=== PATIENT | female | born 1940 | race Native Hawaiian/Other Pacific Islander ===

== ENCOUNTER 2016-08-08 13:05 | Inpatient (IN) | payer BC ==
[2016-08-08 13:05] VITALS: BMI 23.1
--- NOTE | 2016-08-08 14:02 | C.PDOC ---
Time Seen by Provider: 08/08/16 13:56 Chief Complaint (Nursing): Altered Mental Status Past Medical History Vital Signs: Last Vital Signs Temp 90.7 F L 08/08/16 13:44 Pulse 50 L 08/08/16 13:32 Resp 16 08/08/16 13:32 BP 154/62 H 08/08/16 13:32 Pulse Ox 95 08/08/16 13:32 - Medical History PMH: CHF, HTN, Hyperlipidemia, Hypothyroidism, Peripheral Edema, End Stage Renal Disease, Chronic Kidney Disease Denies: Crohn's Disease, Diverticulitis Surgical History: CABG (2001), Coronary Stent (x3 in 2006) - [facility] Procedures BYPASS LEFT BRACHIAL ARTERY TO UPPER ARM VEIN, OPEN APPROACH (11/27/15) DILATION OF L AXILLA VEIN WITH INTRALUM DEV, PERC APPROACH (11/27/15) DILATION OF RIGHT URETER WITH INTRALUMINAL DEVICE, ENDO (11/27/15) DRAINAGE OF RIGHT PLEURAL CAVITY, PERCUTANEOUS APPROACH (02/20/16) FLUOROSCOPY OF DIALYSIS SHUNT/FISTULA USING OTHER CONTRAST (02/20/16) FLUOROSCOPY OF KIDNEY, URETER & BLADDER USING OTH CONTRAST (11/27/15) INSERT INFUSION DEV IN R INT JUGULAR VEIN, PERC (11/27/15) PERFORMANCE OF URINARY FILTRATION, MULTIPLE (02/20/16) REMOVAL OF INFUSION DEVICE FROM UPPER VEIN, OPEN APPROACH (11/27/15) REMOVAL OF INTRALUMINAL DEVICE FROM URETER, ENDO (11/27/15) TRANSFUSE NONAUT RED BLOOD CELLS IN PERIPH VEIN, PERC (11/27/15) Family History: States: Unknown Family Hx - Social History Hx Tobacco Use: No Hx Alcohol Use: No Hx Substance Use: No - Immunization History Hx Tetanus Toxoid Vaccination: No Hx Influenza Vaccination: No (NOT SURE) Hx Pneumococcal Vaccination: No (NOT SURE) ED Course And Treatment O2 Sat by Pulse Oximetry: 95
--- NOTE | 2016-08-08 14:05 | C.PDOC ---
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 Patient's family states she was found laying still in bed at 12:00 poorly responsive with low glucose at 66. Patient is status post D50 prior to arrival with improvement. Family states patient gets periodic low sugar episodes. Patient had 5 units of insulin last night but did not eat this morning. Patient also complains of recurring general swelling, state she needs hemodialysis, and report last hemodialysis was 08/05. Patient's family state patient does not monitor water intake and was scheduled for outpatient hemodialysis this afternoon. Patient's family also report a new onset of bilateral foot and leg redness for 1 week. Patient's PMD is Dr. Norris. Denies any recent fever, nausea, vomiting, or diarrhea. 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 PT FOUND STILL LYING IN BED @ 12 PM, POORLY RESPONSIVE. +LOW GLU @ 66. S/P D50 ALUMINUM POURER W IMPROVE. FAMILY STATES PT GETS PERIODIC LOW SUGAR EPISODES. NO RECENT FEVER, NVD. INSULIN 5 UNITS LAST NIGHT BUT DID NOT EAT THIS MORNING. ALSO CO RECUR GEN SWELLING, NEED FOR HD. LAST HD 08/05, FAMILY STATES PT DOES NOT MONITOR WATER INTAKE. WAS PENDING OUTPT HD THIS AFTERNOON. ALSO NEW ONSET B/L FOOT AND LEG REDNESS X 1 WEEK. EXAM MILD DIST MILD TOX LUNGS NARD POOR EFFORT NO TACHYPNEA NO AUD WHEEZE, RHONCHI NO EDEMA SKIN B/L LEG ERYTHEMA NONBLANCHING ; WARM DRY NEURO AO3, NO FOCAL DEF PMD DR NORRIS Time Seen by Provider: 08/08/16 13:56 Chief Complaint (Nursing): Altered Mental Status History Per: Family History/Exam Limitations: clinical condition Onset/Duration Of Symptoms: Hrs (Since 12:00) Current Symptoms Are (Timing): Still Present Current Diabetic Medications: Insulin Associated Infectious Symptoms: denies: Nausea, Vomiting, Diarrhea, Other (Fever ) Past Medical History Reviewed: Historical Data, Nursing Documentation, Vital Signs Vital Signs: Last Vital Signs Temp 91.2 F L 08/08/16 15:20 Pulse 44 L 08/08/16 15:20 Resp 14 08/08/16 15:20 BP 127/52 L 08/08/16 15:20 Pulse Ox 100 08/08/16 15:20 - Medical History PMH: CHF, HTN, Hyperlipidemia, Hypothyroidism, Peripheral Edema, End Stage Renal Disease, Chronic Kidney Disease Surgical History: CABG (2001), Coronary Stent (x3 in 2006) - [facility] Procedures BYPASS LEFT BRACHIAL ARTERY TO UPPER ARM VEIN, OPEN APPROACH (11/27/15) DILATION OF L AXILLA VEIN WITH INTRALUM DEV, PERC APPROACH (11/27/15) DILATION OF RIGHT URETER WITH INTRALUMINAL DEVICE, ENDO (11/27/15) DRAINAGE OF RIGHT PLEURAL CAVITY, PERCUTANEOUS APPROACH (02/20/16) FLUOROSCOPY OF DIALYSIS SHUNT/FISTULA USING OTHER CONTRAST (02/20/16) FLUOROSCOPY OF KIDNEY, URETER & BLADDER USING OTH CONTRAST (11/27/15) INSERT INFUSION DEV IN R INT JUGULAR VEIN, PERC (11/27/15) PERFORMANCE OF URINARY FILTRATION, MULTIPLE (02/20/16) REMOVAL OF INFUSION DEVICE FROM UPPER VEIN, OPEN APPROACH (11/27/15) REMOVAL OF INTRALUMINAL DEVICE FROM URETER, ENDO (11/27/15) TRANSFUSE NONAUT RED BLOOD CELLS IN PERIPH VEIN, PERC (11/27/15) Family History: States: Unknown Family Hx - Social History Hx Tobacco Use: No Hx Alcohol Use: No Hx Substance Use: No - Immunization History Hx Tetanus Toxoid Vaccination: No Hx Influenza Vaccination: No (NOT SURE) Hx Pneumococcal Vaccination: No (NOT SURE) Review Of Systems Except As Marked, All Systems Reviewed And Found Negative. Constitutional: Negative for: Fever Gastrointestinal: Negative for: Nausea, Vomiting, Diarrhea Musculoskeletal: Positive for: Other (Bilateral foot/leg redness. General swelling.) Physical Exam - Physical Exam Appears: Toxic (Mildly), Other (Mild distress) Skin: Warm, Dry, Other (Bilateral leg erythema. Non-blanching) Head: Atraumatic, Normacephalic Oral Mucosa: Moist Chest: Symmetrical Cardiovascular: Rhythm Regular, No Murmur Respiratory: No Rales, No Rhonchi, No Wheezing, Other (No acute respiratory distress. Poor effort. No tachypnea) Gastrointestinal/Abdominal: Soft, No Tenderness Extremity: No Pedal Edema Neurological/Psych: Oriented x3, Other (No focal deficit) ED Course And Treatment - Laboratory Results Result Diagrams: 08/08/16 14:27 O2 Sat by Pulse Oximetry: 95 (Room air) Pulse Ox Interpretation: Normal Progress Note: EKG, blood work, chest x-ray, urine culture, and urinalysis ordered. One round of hemodialysis administered. Progress - Re-Evaluation Re-evaluation Note: 08/08/16 14:04 D/W DR MATHEW WILL CONSULT, ARRANGE FOR HD 08/08/16 14:05 D/W DR GARCIA WILL ADMIT 08/08/16 15:38 EXAM UNCH FROM PRIOR. VSS. - Data Reviewed Data Reviewed: Lab, Diagnostic imaging, EKG, Old records - Critical Care Citical Care: Excluding Proc Time Critical Care Time: 90 minutes - Continuity of Care Discussed patient case with:: Patient, Family-HIPPA compliant Disposition Counseled Patient/Family Regarding: Diagnosis, Need For Followup - Disposition Disposition: HOSPITALIZED Disposition Time: 15:38 Condition: STABLE - POA Present On Arrival: Poor Glycemic Control - Clinical Impression Clinical Impression: UTI (urinary tract infection), Hypoglycemia, Hypothermia, ESRD (end stage renal disease) on dialysis - Scribe Statement The provider has reviewed the documentation as recorded by the Scribe Darnell Kern All medical record entries made by the Scribe were at my direction and personally dictated by me. I have reviewed the chart and agree that the record accurately reflects my personal performance of the history, physical exam, medical decision making, and the department course for this patient. I have also personally directed, reviewed, and agree with the discharge instructions and disposition. Decision To Admit - Pt Status Changed To: Hospital Disposition Of: Inpatient - Admit Certification Admit to Inpatient:: After my assessment, the patient will require hospitalization for at least two midnights. This is because of the severity of symptoms shown, intensity of services needed, and/or the medical risk in this patient being treated as an outpatient. - InPatient: Physician Admission Certification: I certify that this patient requires 2 or more midnights of care for the following reason:: SEE NOTE - . Bed Request Type: Regular Admitting Physician: Joe Norris Patient Diagnosis: UTI (urinary tract infection), Hypoglycemia, Hypothermia, ESRD (end stage renal disease) on dialysis
[2016-08-08 14:35] LABS: VENOUS BLOOD GAS BASE EXCESS 0.4 mmol/L (0.0-2.0); VENOUS BLOOD GAS PCO2 55 mmHg (40-60); VENOUS BLOOD PH 7.31 (7.32-7.43)
[2016-08-08 14:46] LABS: EOS % 0.4 % (0.0-4.0); LYMPH # 0.5 K/uL (1.0-4.3); MEAN PLATELET VOLUME 10.2 fL (7.2-11.7); MONO # 0.6 K/uL (0.0-0.8)
[2016-08-08 14:54] LABS: BASO # 0.1 K/uL (0.0-0.2); BASO % 0.7 % (0.0-2.0); HEMATOCRIT 38.1 % (34.0-47.0); LYMPH % 6.1 % (20.0-40.0); MEAN CORPUSCULAR HEMOGLOBIN 34.3 pg (27.0-31.0); MEAN CORPUSCULAR HGB CONC 34.1 g/dL (33.0-37.0); MONO % 7.9 % (0.0-10.0); NRBC % 0.2 % (0.0-2.0); PLATELET COUNT 93 K/uL (130-400); RED CELL DISTRIBUTION WIDTH 18.2 % (11.5-14.5); WHITE BLOOD COUNT 7.8 K/uL (4.8-10.8)
[2016-08-08 14:56] LABS: MEAN CELL VOLUME 100.7 fL (81.0-99.0)
[2016-08-08 15:20] LABS: EOSINOPHIL 1 % (0-4); NEUTROPHIL 91 % (50-75); TOTAL CELLS COUNTED 100
[2016-08-08 15:34] LABS: RBC URINE 294 /hpf (0-3); URINE BACTERIA OCC (<OCC); URINE BILIRUBIN NEGATIVE (NEGATIVE); URINE BLOOD 3+ (NEGATIVE); URINE COLOR Amber (YELLOW); URINE GLUCOSE (UA) NORMAL (Normal); URINE KETONE NEGATIVE (NEGATIVE); URINE LEUKOCYTE ESTERASE 3+ Leu/uL (Negative); URINE PROTEIN 2+ mg/dL (NEGATIVE); URINE UROBILINOGEN NORMAL mg/dL (0.2-1.0); WBC CLUMPS FEW /hpf; WBC URINE 461 /hpf (0-5)
--- NOTE | 2016-08-08 15:34 | RAD ---
PROCEDURE: CHEST RADIOGRAPH, 1 VIEW HISTORY: Diabetic COMPARISON: 05/27/2016 FINDINGS: LUNGS: There is near complete opacification of the right hemithorax and mild shift of mediastinum to the left. PLEURA: No pneumothorax or pleural fluid seen. CARDIOVASCULAR: Status post CABG. Evaluation of cardiomediastinal silhouette is limited due to complete opacification of right hemithorax. OSSEOUS STRUCTURES: Diffuse bone demineralization and degenerative osteoarthrosis in the glenohumeral joints. VISUALIZED UPPER ABDOMEN: Normal. OTHER FINDINGS: None. IMPRESSION: Interval near complete opacification of the right hemithorax with mediastinal shift to the left is compatible with large pleural effusion. Underlying mass/ consolidation cannot be excluded. Follow-up is advised.
[2016-08-08] MEDS ORDERED: cefTRIAXone IV 1 gm in Dextros 50 ML IV STA (15:37)
[2016-08-08 16:04] LABS: CHLORIDE 93 mmol/L (98-107)
[2016-08-08 16:05] LABS: POTASSIUM 4.2 mmol/L (3.6-5.2); SODIUM 131 mmol/L (132-148)
[2016-08-08 16:07] LABS: ALB/GLOB RATIO 0.7 (1.0-2.1); ALKALINE PHOSPHATASE 181 U/L (38-126); AST/SGOT 61 U/L (14-36); BILIRUBIN,TOTAL 2.5 mg/dL (0.2-1.3); CARBON DIOXIDE 25 mmol/L (22-30); GFR AFRICAN-AMERICAN 23; TOTAL PROTEIN 8.5 g/dL (6.3-8.3)
[2016-08-08 16:08] LABS: ALT/SGPT 7 U/L (9-52); BLOOD UREA NITROGEN 41 mg/dL (7-17); CALCIUM 9.9 mg/dl (8.6-10.4); GLUCOSE,RANDOM 121 mg/dL (65-105)
--- NOTE | 2016-08-08 17:50 | CP.PCM.HP ---
History of Present Illness - History of Present Illness History of Present Illness: Chief complaint: Shortness of breath, altered mental status, hypothermia. History present illness: 75-year-old female with a history of CAD, stent in the past, hypertension, end- stage renal disease on dialysis, diabetes, hypothyroidism. A recurrent pleural effusion on the right lung. Recurrent thoracentesis. Patient for the last 2-3 days not feeling well. Yesterday patient was having somewhat weakness, tiredness, and also some shortness of breath, and patient was told to go to the emergency room. But patient was refusing. Today patient was sleeping the whole day, until 12 noon. Patient's family was time to get her out, patient was falling and she was not responding well. So family called the ambulance, and the patient was brought into the emergency room. In the emergency room patient was noted to be in severely hypothermic. Blood sugar was also very low. Patient was not responding. But she was able to breathe better. After the IV dextrose, and the temperature is slightly up, patient started responding. Meanwhile patient is having significant distress with movement. Bradycardia also noted. Given the high-risk I advised the patient to get admitted to the intensive care unit Past medical history: Patient has a history of CAD, stent in the past, hypertension, end-stage renal disease on dialysis, recurrent pleural effusion, hypothyroidism, diabetes. Recurrent right-sided pleural effusion. Recurrent thoracentesis. Surgical history: Coronary artery bypass grafting, stent in the past, hysterectomy, stent in the urethral area Patient also has a history of congestive heart failure Multiple hospitalization. Allergy sulfa mites Patient is a lifelong nonsmoker nonalcoholic Review of system: Patient is having minimal distress. Mild altered mental status improving, is responding to deep stimuli. Deep respiration noted, edema in the legs noted. Leg swelling present. Patient today morning had altered mental status, hypoglycemia noted On examination: Vital signs reviewed Patient is having bradycardia. Blood pressure is normal. Chest decreased air entry on the right lung. Regular heart sound. Abdomen soft, but tenderness in the left lower quadrant. Edema bilaterally noted, redness in the legs noted Temp Pulse Resp BP Pulse Ox 94.2 F L 48 L 14 120/44 L 100 08/08/16 17:44 08/08/16 17:44 08/08/16 17:44 08/08/16 17:44 08/08/16 17:44 08/08/16 14:27 08/08/16 15:27 Chest x-ray showing evidence of complete atelectasis of the right lung, associated pleural effusion Assessment/condition: 74-year-old female with history of CAD, stent, coronary it to bypass grafting, Hypertension, end-stage renal disease on dialysis diabetes hypothyroidism recurrent pleural effusion. Patient is now having severe hypothermia, hypoglycemia. Underlying sepsis cannot be ruled out. Hypoglycemia increased altered mental status most likely. Metabolic encephalopathy. We'll continue to monitor the glucose. Patient will get hemodialysis. Patient will need a thoracentesis on the right lung. Continue the oxygen and will follow the patient Present on Admission - Present on Admission Any Indicators Present on Admission: No History of DVT/PE: No History of Uncontrolled Diabetes: No Urinary Catheter: No Decubitus Ulcer Present: No Past Patient History - Infectious Disease Hx of Infectious Diseases: None - Past Medical History & Family History Past Medical History?: Yes - Past Social History Smoking Status: Never Smoked - CARDIAC Hx Congestive Heart Failure: Yes Hx Hypertension: Yes Hx Peripheral Edema: Yes - PULMONARY Hx Respiratory Disorders: Yes Other/Comment: hx of thoracentesis - NEUROLOGICAL Hx Neurological Disorder: Yes Other/Comment: [place] - HEENT Hx HEENT Problems: Yes Other/Comment: hard of hearing - RENAL Hx Chronic Kidney Disease: Yes - ENDOCRINE/METABOLIC Hx Hypothyroidism: Yes - MUSCULOSKELETAL/RHEUMATOLOGICAL Hx Falls: No - GASTROINTESTINAL Hx Crohn's Disease: No Hx Diverticulitis: No - GENITOURINARY/GYNECOLOGICAL Hx Genitourinary Disorders: Yes Hx Incontinence: Yes Hx Urinary Tract Infection: Yes (2006) Other/Comment: ureteral stent placed 06/2015 - PSYCHIATRIC Hx Substance Use: No - SURGICAL HISTORY Hx Coronary Artery Bypass Graft: Yes (2001) Hx Coronary Stent: Yes (x3 in 2006) - ANESTHESIA Hx Anesthesia: Yes Hx Anesthesia Reactions: No Hx Malignant Hyperthermia: No Meds Allergies/Adverse Reactions: Allergies Allergy/AdvReac Type Severity Reaction Status Date / Time Sulfa (Sulfonamide Allergy RASH Verified 05/27/16 10:31 Antibiotics) Results - Vital Signs Recent Vital Signs: Last Vital Signs Temp 94.2 F L 08/08/16 17:44 Pulse 48 L 08/08/16 17:44 Resp 14 08/08/16 17:44 BP 120/44 L 08/08/16 17:44 Pulse Ox 100 08/08/16 17:44 - Labs Result Diagrams: 08/08/16 14:27 08/08/16 15:27 Labs: Laboratory Results - last 24 hr 08/08/16 08/08/16 16:12 17:43 POC Glucose (mg/dL) 135 H 126 H
[2016-08-09 06:44] LABS: BASO # 0.1 K/uL (0.0-0.2); EOS # 0.3 K/uL (0.0-0.7); EOS % 4.7 % (0.0-4.0); HEMATOCRIT 35.8 % (34.0-47.0); LYMPH # 0.6 K/uL (1.0-4.3); LYMPH % 9.3 % (20.0-40.0); MEAN CELL VOLUME 100.6 fL (81.0-99.0); MEAN CORPUSCULAR HEMOGLOBIN 34.2 pg (27.0-31.0); MEAN PLATELET VOLUME 10.1 fL (7.2-11.7); MONO # 0.6 K/uL (0.0-0.8); NRBC % 0.3 % (0.0-2.0); PLATELET COUNT 93 K/uL (130-400); RED CELL DISTRIBUTION WIDTH 18.2 % (11.5-14.5); WHITE BLOOD COUNT 6.4 K/uL (4.8-10.8)
[2016-08-09 06:50] LABS: POTASSIUM 3.2 mmol/L (3.6-5.2)
[2016-08-09 06:52] LABS: ALB/GLOB RATIO 0.7 (1.0-2.1); BILIRUBIN,TOTAL 1.9 mg/dL (0.2-1.3); TOTAL PROTEIN 8.1 g/dL (6.3-8.3)
[2016-08-09 06:53] LABS: MAGNESIUM 1.9 mg/dL (1.6-2.3); PHOSPHOROUS 3.1 mg/dL (2.5-4.5)
[2016-08-09] MEDS: Levothyroxine 75 MCG TAB PO SCH (08:56)
[2016-08-09 08:57] LABS: EOSINOPHIL 5 % (0-4); NEUTROPHIL 82 % (50-75); TOTAL CELLS COUNTED 100
--- NOTE | 2016-08-09 09:25 | RAD ---
HISTORY: pleural effusion COMPARISON: 08/08/2016 FINDINGS: LUNGS: Persistent near complete opacification of the right sera thorax. Upper lobe granulomatous changes. PLEURA: As above. CARDIOVASCULAR: Cardiomegaly. Calcification at the aortic knob. Status post median sternotomy and CABG. OSSEOUS STRUCTURES: Deformity of the right proximal humerus. Radiopaque densities project over the left bony glenoid. VISUALIZED UPPER ABDOMEN: Normal. OTHER FINDINGS: None. IMPRESSION: Persistent near complete opacification of the right sera thorax. Upper lobe granulomatous changes.
--- NOTE | 2016-08-09 10:31 | CP.PCM.CON ---
History of Present Illness - History of Present Illness History of Present Illness: History present illness: 75-year-old female with a history of CAD, stent in the past, hypertension, end- stage renal disease on dialysis, diabetes, hypothyroidism. A recurrent pleural effusion on the right lung. Recurrent thoracentesis. Patient for the last 2-3 days not feeling well. Yesterday patient was having somewhat weakness, tiredness, and also some shortness of breath, and patient was told to go to the emergency room. But patient was refusing. Today patient was sleeping the whole day, until 12 noon. Patient's family was time to get her out, patient was falling and she was not responding well. So family called the ambulance, and the patient was brought into the emergency room. In the emergency room patient was noted to be in severely hypothermic. Blood sugar was also very low. Patient was not responding. But she was able to breathe better. After the IV dextrose, and the temperature is slightly up, patient started responding. Meanwhile patient is having significant distress with movement. Bradycardia also noted. Given the high-risk I advised the patient to get admitted to the intensive care unit PMH: ESRD ICMP DM 2 HTN RECURRENT CHF WILL ARRANGE FOR MORE AGGRESSIVE HD FOR FLUID REMOVAL CONSULT DICTATED Past Patient History - Infectious Disease Hx of Infectious Diseases: None - Past Medical History & Family History Past Medical History?: Yes - Past Social History Smoking Status: Never Smoked - CARDIAC Hx Cardiac Disorders: Yes Hx Congestive Heart Failure: Yes Hx Hypertension: Yes Hx Peripheral Edema: Yes - PULMONARY Hx Respiratory Disorders: Yes Other/Comment: hx of thoracentesis - NEUROLOGICAL Hx Neurological Disorder: Yes Other/Comment: [place] - HEENT Hx HEENT Problems: Yes Other/Comment: hard of hearing - RENAL Hx Chronic Kidney Disease: Yes Hx Dialysis: Yes Type of Dialysis Access: Hemodialysis Date of Last Dialysis Treatment: 08/05/16 - ENDOCRINE/METABOLIC Hx Hypothyroidism: Yes - HEMATOLOGICAL/ONCOLOGICAL Hx Blood Disorders: No - INTEGUMENTARY Hx Dermatological Problems: No - MUSCULOSKELETAL/RHEUMATOLOGICAL Hx Musculoskeletal Disorders: No Hx Falls: No - GASTROINTESTINAL Hx Gastrointestinal Disorders: No Hx Crohn's Disease: No Hx Diverticulitis: No - GENITOURINARY/GYNECOLOGICAL Hx Genitourinary Disorders: Yes Hx Incontinence: Yes Hx Urinary Tract Infection: Yes (2006) Other/Comment: ureteral stent placed 06/2015 - PSYCHIATRIC Hx Psychophysiologic Disorder: No Hx Substance Use: No - SURGICAL HISTORY Hx Surgeries: Yes Hx Coronary Artery Bypass Graft: Yes (2001) Hx Coronary Stent: Yes (x3 in 2006) - ANESTHESIA Hx Anesthesia: Yes Hx Anesthesia Reactions: No Hx Malignant Hyperthermia: No Has any member of the family had a problem w/ anesthesia?: No Meds Allergies/Adverse Reactions: Allergies Allergy/AdvReac Type Severity Reaction Status Date / Time Sulfa (Sulfonamide Allergy RASH Verified 05/27/16 10:31 Antibiotics) - Medications Medications: Current Medications Aspirin (Aspirin Chewable) 81 mg PO DAILY [facility] Last Admin: 08/09/16 09:01 Dose: 81 mg Bisoprolol Fumarate (Zebeta) 5 mg PO ACB [facility] Last Admin: 08/09/16 08:56 Dose: 5 mg Calcium Acetate (Phoslo) 667 mg PO TIDCC [facility] Last Admin: 08/09/16 08:56 Dose: 667 mg Diphenhydramine HCl (Benadryl) 25 mg PO Q4H PRN PRN Reason: allergies Furosemide (Lasix) 40 mg PO DAILY [facility] Last Admin: 08/09/16 09:01 Dose: 40 mg Cefepime HCl (Maxipime Iv 1 Gm Premix) 50 mls @ 100 mls/hr IVPB Q12H [facility] Levothyroxine Sodium (Synthroid) 75 mcg PO ACB [facility] Last Admin: 08/09/16 08:56 Dose: 75 mcg Rosuvastatin Calcium (Crestor) 20 mg PO HS [facility] Last Admin: 08/08/16 21:23 Dose: 20 mg Results - Vital Signs Recent Vital Signs: Last Vital Signs Temp 97.7 F 08/09/16 04:00 Pulse 62 08/09/16 09:00 Resp 13 08/09/16 09:00 BP 125/41 L 08/09/16 09:01 Pulse Ox 100 08/09/16 09:00 - Labs Result Diagrams: 08/09/16 06:35 08/09/16 04:00 Labs: Laboratory Results - last 24 hr 08/08/16 08/08/16 08/08/16 16:12 17:43 21:18 WBC RBC Hgb Hct MCV MCH MCHC RDW Plt Count MPV Neut % (Auto) Lymph % (Auto) Wood % (Auto) Eos % (Auto) Baso % (Auto) Neut # Lymph # Wood # Eos # Baso # Neutrophils % (Manual) Band Neutrophils % Lymphocytes % (Manual) Monocytes % (Manual) Eosinophils % (Manual) Platelet Estimate Polychromasia Anisocytosis (manual) Macrocytosis (manual) Target Cells Sodium Potassium Chloride Carbon Dioxide Anion Gap BUN Creatinine Est GFR ( Amer) Est GFR (Non-Af Amer) POC Glucose (mg/dL) 135 H 126 H 65 Random Glucose Calcium Phosphorus Magnesium Total Bilirubin AST ALT Alkaline Phosphatase Total Protein Albumin Globulin Albumin/Globulin Ratio 08/08/16 08/09/16 08/09/16 22:03 04:00 06:35 WBC 6.4 RBC 3.56 L Hgb 12.2 Hct 35.8 MCV 100.6 H MCH 34.2 H MCHC 34.0 RDW 18.2 H Plt Count 93 L MPV 10.1 Neut % (Auto) 74.0 Lymph % (Auto) 9.3 L Wood % (Auto) 10.0 Eos % (Auto) 4.7 H Baso % (Auto) 2.0 Neut # 4.8 Lymph # 0.6 L Wood # 0.6 Eos # 0.3 Baso # 0.1 Neutrophils % (Manual) 82 H Band Neutrophils % 2 Lymphocytes % (Manual) 7 L Monocytes % (Manual) 4 Eosinophils % (Manual) 5 H Platelet Estimate Decreased L Polychromasia Slight Anisocytosis (manual) Slight Macrocytosis (manual) Slight Target Cells Slight Sodium 135 Potassium 3.2 L Chloride 94 L Carbon Dioxide 31 H Anion Gap 13 BUN 21 H Creatinine 1.7 H Est GFR ( Amer) 36 Est GFR (Non-Af Amer) 29 POC Glucose (mg/dL) 87 Random Glucose 81 Calcium 9.0 Phosphorus 3.1 Magnesium 1.9 Total Bilirubin 1.9 H AST 37 H D ALT 17 Alkaline Phosphatase 207 H Total Protein 8.1 Albumin 3.3 L Globulin 4.8 H Albumin/Globulin Ratio 0.7 L 08/09/16 07:30 WBC RBC Hgb Hct MCV MCH MCHC RDW Plt Count MPV Neut % (Auto) Lymph % (Auto) Wood % (Auto) Eos % (Auto) Baso % (Auto) Neut # Lymph # Wood # Eos # Baso # Neutrophils % (Manual) Band Neutrophils % Lymphocytes % (Manual) Monocytes % (Manual) Eosinophils % (Manual) Platelet Estimate Polychromasia Anisocytosis (manual) Macrocytosis (manual) Target Cells Sodium Potassium Chloride Carbon Dioxide Anion Gap BUN Creatinine Est GFR ( Amer) Est GFR (Non-Af Amer) POC Glucose (mg/dL) 73 Random Glucose Calcium Phosphorus Magnesium Total Bilirubin AST ALT Alkaline Phosphatase Total Protein Albumin Globulin Albumin/Globulin Ratio
[2016-08-09] MEDS ORDERED: Cefepime IV 1 gm in Dextrose 50 ML IVPB SCH (11:00)
--- NOTE | 2016-08-09 11:02 | CON ---
DATE: 08/09/2016 The patient is a 75-year-old [place] woman with end-stage renal disease consulted for presentation of congestive heart failure on 08/08, which necessitated immediate dialysis. PAST MEDICAL HISTORY: End-stage renal disease due to diabetic nephropathy, and been on dialysis for over 1 year. History of coronary artery disease, ischemic cardiomyopathy, hypertension, diabetes herminia litus type 2, and hypothyroidism. She presents with altered mental status, probably due to congestive heart failure. She was found to have a large pleural effusion and CHF on the chest x-ray. She had immediate dialysis, and she immedi ately felt better. SURGICAL HISTORY: Is that of coronary artery bypass graft surgery 2001, cardiac stenting as well, AV fistula in the left arm, and multiple thoracenteses procedures and hysterectomy. SOCIAL HISTORY: Negative for smoking, alcohol abuse, or illicit drug use. FAMILY HISTORY: Noncontributory. REVIEW OF SYSTEMS: Increased dyspnea on exertion. She cannot go more than a half a block and maybe a block without getting short of breath. She is often confused, has little urine output. She has no chest pain, no nausea, vomiting, or diarrhea. No rashes. No new visual disturbances or hearing def icits. She does have peripheral edema. PHYSICAL EXAMINATION: GENERAL: She is a well-developed woman. Now she is feeling better. VITAL SIGNS: Blood pressure is 125/41, pulse 62, pulse ox 100% with nasal cannula, temperature 97.7. HEENT: She is anicteric. Mouth was clear. NECK: No JVD. LUNGS: Lung bernal show bibasilar rales. Decreased breath sounds on one side. HEART: Regular rhythm. No murmur appreciated. ABDOMEN: Soft, benign. No mass or organomegaly. EXTREMITIES: No new peripheral edema. She had a left arm AV fistula with a bruit. NEUROLOGIC: No focal deficits. Chest x-ray showed pleural effusion in chest and CHF changes. LABORATORY DATA: The blood chemistries showed initially BUN of 41, creatinine 2.5, potassium 4.2, so dium 131, albumin of 3.6. She has got a hemoglobin of 12.2. IMPRESSION: Congestive heart failure, end-stage renal disease, ischemic cardiomyopathy, recurrent co ngestive heart failure, recurrent pleural effusions, diabetes mellitus type 2, diabetic nephropathy, hypothyroidism. PLAN: Will be to increase ultrafiltration with dialysis. Cardiology to follow up on the patient, an d would recommend strict fluid restriction as well. We will follow up. Richard Mcfarland MD cc: [id number] TT: 08/09/2016 11:01:57 Confirmation # [id number] Dictation # [id number] lynette
--- NOTE | 2016-08-09 11:18 | CP.CCUPN ---
<Heather Meza - Last Filed: 08/09/16 12:16> CCU Subjective - Physician Review Subjective (Free Text): Patient was seen and examined at bedside. ESRD on HD MWF schedule. She had 2.5L removed yesterday. She continues to have a pleural effusion and CHF on today's chest xray. Dr. Mcfarland will increase ultrafiltration on dialysis. 08/09/16 11:59 Patient s/p thoracentesis removed 1800cc from right side. CCU Objective - Vital Signs / Intake & Output Vital Signs (Last 4 hours): Vital Signs Pulse Resp BP Pulse Ox 08/09/16 09:01 125/41 L 08/09/16 09:00 62 13 100 08/09/16 08:43 61 19 125/41 L 08/09/16 08:16 63 11 L 100 Intake and Output (Last 8hrs): Intake & Output 08/08/16 08/09/16 08/09/16 22:59 06:59 14:59 Intake Total 170 150 50 Output Total 0 0 0 Balance 170 150 50 Weight 117 lb Intake: Oral 170 150 50 Output: Urine 0 0 0 Urine, Voided 0 0 0 - Physical Exam Head: Positive for: Atraumatic, Normocephalic Extroacular Muscles: Positive for: EOMI Conjunctiva: Positive for: Normal Mouth: Positive for: Dry Neck: Positive for: Normal Range of Motion Respiratory/Chest: Positive for: Decreased Breath Sounds Cardiovascular: Positive for: Bradycardic Abdomen: Positive for: Normal Bowel Sounds. Negative for: Tenderness, Distention Upper Extremity: Positive for: Normal Inspection Lower Extremity: Positive for: Normal Inspection, Edema, NORMAL PULSES. Negative for: CALF TENDERNESS Neurological: Positive for: GCS=15, CN II-XII Intact Skin: Positive for: Warm, Dry Psychiatric: Positive for: Alert - Medications Active Medications: Active Medications Generic Name Dose Route Start Last Admin Trade Name Freq PRN Reason Stop Dose Admin Aspirin 81 mg 08/09/16 10:00 08/09/16 09:01 Aspirin Chewable PO 81 mg DAILY REKHA Administration Bisoprolol Fumarate 5 mg 08/09/16 07:30 08/09/16 08:56 Zebeta PO 5 mg ACB REKHA Administration Calcium Acetate 667 mg 08/08/16 17:00 08/09/16 08:56 Phoslo PO 667 mg TIDCC REKHA Administration Diphenhydramine HCl 25 mg 08/08/16 16:53 Benadryl PO Q4H PRN allergies Furosemide 40 mg 08/09/16 10:00 08/09/16 09:01 Lasix PO 40 mg DAILY REKHA Administration Cefepime HCl 50 mls @ 100 mls/hr 08/09/16 11:00 Maxipime Iv 1 Gm Premix IVPB Q12H REKHA Levothyroxine Sodium 75 mcg 08/09/16 07:30 08/09/16 08:56 Synthroid PO 75 mcg ACB REKHA Administration Pantoprazole Sodium 40 mg 08/09/16 10:45 Protonix Inj IVP DAILY REKHA Rosuvastatin Calcium 20 mg 08/08/16 22:00 08/08/16 21:23 Crestor PO 20 mg HS REKHA Administration - Patient Studies Lab Studies: Lab Studies 08/09/16 08/09/16 08/09/16 Range/Units 07:30 06:35 04:00 WBC 6.4 (4.8-10.8) K/uL RBC 3.56 L (3.80-5.20) Mil/uL Hgb 12.2 (11.0-16.0) g/dL Hct 35.8 (34.0-47.0) % MCV 100.6 H (81.0-99.0) fL MCH 34.2 H (27.0-31.0) pg MCHC 34.0 (33.0-37.0) g/dL RDW 18.2 H (11.5-14.5) % Plt Count 93 L (130-400) K/uL MPV 10.1 (7.2-11.7) fL Neut % (Auto) 74.0 (50.0-75.0) % Lymph % (Auto) 9.3 L (20.0-40.0) % [place] % (Auto) 10.0 (0.0-10.0) % Eos % (Auto) 4.7 H (0.0-4.0) % Baso % (Auto) 2.0 (0.0-2.0) % Neut # 4.8 (1.8-7.0) K/uL Lymph # 0.6 L (1.0-4.3) K/uL [place] # 0.6 (0.0-0.8) K/uL Eos # 0.3 (0.0-0.7) K/uL Baso # 0.1 (0.0-0.2) K/uL Neutrophils % (Manual) 82 H (50-75) % Band Neutrophils % 2 (0-2) % Lymphocytes % (Manual) 7 L (20-40) % Monocytes % (Manual) 4 (0-10) % Eosinophils % (Manual) 5 H (0-4) % Platelet Estimate Decreased L (NORMAL) Polychromasia Slight Anisocytosis (manual) Slight Macrocytosis (manual) Slight Target Cells Slight Sodium 135 (132-148) mmol/L Potassium 3.2 L (3.6-5.2) mmol/L Chloride 94 L (98-107) mmol/L Carbon Dioxide 31 H (22-30) mmol/L Anion Gap 13 (10-20) BUN 21 H (7-17) mg/dL Creatinine 1.7 H (0.7-1.2) MG/DL Est GFR ( Amer) 36 Est GFR (Non-Af Amer) 29 POC Glucose (mg/dL) 73 (65-110) mg/dL Random Glucose 81 (65-105) mg/dL Calcium 9.0 (8.6-10.4) mg/dl Phosphorus 3.1 (2.5-4.5) mg/dL Magnesium 1.9 (1.6-2.3) mg/dL Total Bilirubin 1.9 H (0.2-1.3) mg/dL AST 37 H D (14-36) U/L ALT 17 (9-52) U/L Alkaline Phosphatase 207 H (38-126) U/L Total Protein 8.1 (6.3-8.3) g/dL Albumin 3.3 L (3.5-5.0) g/dL Globulin 4.8 H (2.2-3.9) gm/dL Albumin/Globulin Ratio 0.7 L (1.0-2.1) 08/08/16 08/08/16 08/08/16 Range/Units 22:03 21:18 17:43 WBC (4.8-10.8) K/uL RBC (3.80-5.20) Mil/uL Hgb (11.0-16.0) g/dL Hct (34.0-47.0) % MCV (81.0-99.0) fL MCH (27.0-31.0) pg MCHC (33.0-37.0) g/dL RDW (11.5-14.5) % Plt Count (130-400) K/uL MPV (7.2-11.7) fL Neut % (Auto) (50.0-75.0) % Lymph % (Auto) (20.0-40.0) % [place] % (Auto) (0.0-10.0) % Eos % (Auto) (0.0-4.0) % Baso % (Auto) (0.0-2.0) % Neut # (1.8-7.0) K/uL Lymph # (1.0-4.3) K/uL [place] # (0.0-0.8) K/uL Eos # (0.0-0.7) K/uL Baso # (0.0-0.2) K/uL Neutrophils % (Manual) (50-75) % Band Neutrophils % (0-2) % Lymphocytes % (Manual) (20-40) % Monocytes % (Manual) (0-10) % Eosinophils % (Manual) (0-4) % Platelet Estimate (NORMAL) Polychromasia Anisocytosis (manual) Macrocytosis (manual) Target Cells Sodium (132-148) mmol/L Potassium (3.6-5.2) mmol/L Chloride (98-107) mmol/L Carbon Dioxide (22-30) mmol/L Anion Gap (10-20) BUN (7-17) mg/dL Creatinine (0.7-1.2) MG/DL Est GFR ( Amer) Est GFR (Non-Af Amer) POC Glucose (mg/dL) 87 65 126 H (65-110) mg/dL Random Glucose (65-105) mg/dL Calcium (8.6-10.4) mg/dl Phosphorus (2.5-4.5) mg/dL Magnesium (1.6-2.3) mg/dL Total Bilirubin (0.2-1.3) mg/dL AST (14-36) U/L ALT (9-52) U/L Alkaline Phosphatase (38-126) U/L Total Protein (6.3-8.3) g/dL Albumin (3.5-5.0) g/dL Globulin (2.2-3.9) gm/dL Albumin/Globulin Ratio (1.0-2.1) 08/08/16 Range/Units 16:12 WBC (4.8-10.8) K/uL RBC (3.80-5.20) Mil/uL Hgb (11.0-16.0) g/dL Hct (34.0-47.0) % MCV (81.0-99.0) fL MCH (27.0-31.0) pg MCHC (33.0-37.0) g/dL RDW (11.5-14.5) % Plt Count (130-400) K/uL MPV (7.2-11.7) fL Neut % (Auto) (50.0-75.0) % Lymph % (Auto) (20.0-40.0) % [place] % (Auto) (0.0-10.0) % Eos % (Auto) (0.0-4.0) % Baso % (Auto) (0.0-2.0) % Neut # (1.8-7.0) K/uL Lymph # (1.0-4.3) K/uL [place] # (0.0-0.8) K/uL Eos # (0.0-0.7) K/uL Baso # (0.0-0.2) K/uL Neutrophils % (Manual) (50-75) % Band Neutrophils % (0-2) % Lymphocytes % (Manual) (20-40) % Monocytes % (Manual) (0-10) % Eosinophils % (Manual) (0-4) % Platelet Estimate (NORMAL) Polychromasia Anisocytosis (manual) Macrocytosis (manual) Target Cells Sodium (132-148) mmol/L Potassium (3.6-5.2) mmol/L Chloride (98-107) mmol/L Carbon Dioxide (22-30) mmol/L Anion Gap (10-20) BUN (7-17) mg/dL Creatinine (0.7-1.2) MG/DL Est GFR ( Amer) Est GFR (Non-Af Amer) POC Glucose (mg/dL) 135 H (65-110) mg/dL Random Glucose (65-105) mg/dL Calcium (8.6-10.4) mg/dl Phosphorus (2.5-4.5) mg/dL Magnesium (1.6-2.3) mg/dL Total Bilirubin (0.2-1.3) mg/dL AST (14-36) U/L ALT (9-52) U/L Alkaline Phosphatase (38-126) U/L Total Protein (6.3-8.3) g/dL Albumin (3.5-5.0) g/dL Globulin (2.2-3.9) gm/dL Albumin/Globulin Ratio (1.0-2.1) Laboratory Results - last 24 hr 08/08/16 08/08/16 08/08/16 16:12 17:43 21:18 WBC RBC Hgb Hct MCV MCH MCHC RDW Plt Count MPV Neut % (Auto) Lymph % (Auto) [place] % (Auto) Eos % (Auto) Baso % (Auto) Neut # Lymph # [place] # Eos # Baso # Neutrophils % (Manual) Band Neutrophils % Lymphocytes % (Manual) Monocytes % (Manual) Eosinophils % (Manual) Platelet Estimate Polychromasia Anisocytosis (manual) Macrocytosis (manual) Target Cells Sodium Potassium Chloride Carbon Dioxide Anion Gap BUN Creatinine Est GFR ( Amer) Est GFR (Non-Af Amer) POC Glucose (mg/dL) 135 H 126 H 65 Random Glucose Calcium Phosphorus Magnesium Total Bilirubin AST ALT Alkaline Phosphatase Total Protein Albumin Globulin Albumin/Globulin Ratio 08/08/16 08/09/16 08/09/16 22:03 04:00 06:35 WBC 6.4 RBC 3.56 L Hgb 12.2 Hct 35.8 MCV 100.6 H MCH 34.2 H MCHC 34.0 RDW 18.2 H Plt Count 93 L MPV 10.1 Neut % (Auto) 74.0 Lymph % (Auto) 9.3 L [place] % (Auto) 10.0 Eos % (Auto) 4.7 H Baso % (Auto) 2.0 Neut # 4.8 Lymph # 0.6 L [place] # 0.6 Eos # 0.3 Baso # 0.1 Neutrophils % (Manual) 82 H Band Neutrophils % 2 Lymphocytes % (Manual) 7 L Monocytes % (Manual) 4 Eosinophils % (Manual) 5 H Platelet Estimate Decreased L Polychromasia Slight Anisocytosis (manual) Slight Macrocytosis (manual) Slight Target Cells Slight Sodium 135 Potassium 3.2 L Chloride 94 L Carbon Dioxide 31 H Anion Gap 13 BUN 21 H Creatinine 1.7 H Est GFR ( Amer) 36 Est GFR (Non-Af Amer) 29 POC Glucose (mg/dL) 87 Random Glucose 81 Calcium 9.0 Phosphorus 3.1 Magnesium 1.9 Total Bilirubin 1.9 H AST 37 H D ALT 17 Alkaline Phosphatase 207 H Total Protein 8.1 Albumin 3.3 L Globulin 4.8 H Albumin/Globulin Ratio 0.7 L 08/09/16 07:30 WBC RBC Hgb Hct MCV MCH MCHC RDW Plt Count MPV Neut % (Auto) Lymph % (Auto) [place] % (Auto) Eos % (Auto) Baso % (Auto) Neut # Lymph # [place] # Eos # Baso # Neutrophils % (Manual) Band Neutrophils % Lymphocytes % (Manual) Monocytes % (Manual) Eosinophils % (Manual) Platelet Estimate Polychromasia Anisocytosis (manual) Macrocytosis (manual) Target Cells Sodium Potassium Chloride Carbon Dioxide Anion Gap BUN Creatinine Est GFR ( Amer) Est GFR (Non-Af Amer) POC Glucose (mg/dL) 73 Random Glucose Calcium Phosphorus Magnesium Total Bilirubin AST ALT Alkaline Phosphatase Total Protein Albumin Globulin Albumin/Globulin Ratio Fingerstick Blood Sugar Results: 73 Critical Care Progress Note - Nutrition Nutrition: Nutrition Category Date Time Status Heart Healthy Diet [DIET] Diets 08/08/16 Breakfast Active Assessment/Plan - Assessment and Plan (Free Text) Assessment: 75 year old female with ESRD currently on dialysis MWF presented with CHF, in need of dialysis. Plan: Neuro: Upon admission patient was mild AMS, currently more oriented. Was hypothermic, normal temperature now. CV: -CHF - Lasix 40mg PO daily -Hx CAD: ASA, Crestor -HTN - Continue Zebeta Pulm: -Right sided recurrent pleural effusions - Dr. Walker consulted for thoracentesis - help appreciated - 1800mL was removed. Renal: -ESRD on HD MWF -Continued Phosmuriel and Dr. Mcfarland - help appreciated Patient underwent dialysis on Monday and had 2.2 L removed. As per Dr. Mcfarland, he will increase ultrafiltration on next dialysis. Endo: - DM: Upon admission patient was hypoglycemic - Hypothyroidism: Synthroid 75 mcg PO ACB ID: Afebrile, no white count Initial UA showed UTI- Cefepime Q12H F/U repeat UA, urine, blood cultures Left foot ulcer - f/u wound care Prophylaxis: GI: Protonix 40mg IVP daily DVT: SCDs, VTE contraindicated due to thrombocytopenia Heart Healthy Diet DW Derrick Costa DO, PGY-1 <Jonatan Scales - Last Filed: 08/09/16 16:53> CCU Objective - Vital Signs / Intake & Output Vital Signs (Last 4 hours): Vital Signs Pulse Resp BP Pulse Ox 08/09/16 15:00 65 14 100 08/09/16 14:00 50 L 13 98 08/09/16 13:57 58 L 14 103/49 L 100 08/09/16 13:00 55 L 11 L 100 08/09/16 12:57 63 12 117/77 100 Intake and Output (Last 8hrs): Intake & Output 08/09/16 08/09/16 08/09/16 06:59 14:59 22:59 Intake Total 150 100 0 Output Total 0 1800 Balance 150 -1700 0 Intake: Intake, IV Amount 50 Right Antecubital 50 Oral 150 50 0 Output: Urine 0 0 Urine, Voided 0 0 Other 1800 - Medications Active Medications: Active Medications Generic Name Dose Route Start Last Admin Trade Name Freq PRN Reason Stop Dose Admin Aspirin 81 mg 08/09/16 10:00 08/09/16 09:01 Aspirin Chewable PO 81 mg DAILY REKHA Administration Bisoprolol Fumarate 5 mg 08/09/16 07:30 08/09/16 08:56 Zebeta PO 5 mg ACB REKHA Administration Calcium Acetate 667 mg 08/08/16 17:00 08/09/16 12:04 Phoslo PO 667 mg TIDCC REKHA Administration Diphenhydramine HCl 25 mg 08/08/16 16:53 Benadryl PO Q4H PRN allergies Furosemide 40 mg 08/09/16 10:00 08/09/16 09:01 Lasix PO 40 mg DAILY REKHA Administration Cefepime HCl 50 mls @ 100 mls/hr 08/09/16 11:00 08/09/16 12:03 Maxipime Iv 1 Gm Premix IVPB 100 mls/hr Q12H REKHA Administration Levothyroxine Sodium 75 mcg 08/09/16 07:30 08/09/16 08:56 Synthroid PO 75 mcg ACB REKHA Administration Pantoprazole Sodium 40 mg 08/09/16 10:45 08/09/16 12:03 Protonix Inj IVP 40 mg DAILY REKHA Administration Rosuvastatin Calcium 10 mg 08/09/16 22:00 Crestor PO HS REKHA - Patient Studies Lab Studies: Lab Studies 08/09/16 08/09/16 08/09/16 Range/Units 16:31 11:15 07:30 WBC (4.8-10.8) K/uL RBC (3.80-5.20) Mil/uL Hgb (11.0-16.0) g/dL Hct (34.0-47.0) % MCV (81.0-99.0) fL MCH (27.0-31.0) pg MCHC (33.0-37.0) g/dL RDW (11.5-14.5) % Plt Count (130-400) K/uL MPV (7.2-11.7) fL Neut % (Auto) (50.0-75.0) % Lymph % (Auto) (20.0-40.0) % [place] % (Auto) (0.0-10.0) % Eos % (Auto) (0.0-4.0) % Baso % (Auto) (0.0-2.0) % Neut # (1.8-7.0) K/uL Lymph # (1.0-4.3) K/uL [place] # (0.0-0.8) K/uL Eos # (0.0-0.7) K/uL Baso # (0.0-0.2) K/uL Neutrophils % (Manual) (50-75) % Band Neutrophils % (0-2) % Lymphocytes % (Manual) (20-40) % Monocytes % (Manual) (0-10) % Eosinophils % (Manual) (0-4) % Platelet Estimate (NORMAL) Polychromasia Anisocytosis (manual) Macrocytosis (manual) Target Cells Sodium (132-148) mmol/L Potassium (3.6-5.2) mmol/L Chloride (98-107) mmol/L Carbon Dioxide (22-30) mmol/L Anion Gap (10-20) BUN (7-17) mg/dL Creatinine (0.7-1.2) MG/DL Est GFR ( Amer) Est GFR (Non-Af Amer) POC Glucose (mg/dL) 89 94 73 (65-110) mg/dL Random Glucose (65-105) mg/dL Calcium (8.6-10.4) mg/dl Phosphorus (2.5-4.5) mg/dL Magnesium (1.6-2.3) mg/dL Total Bilirubin (0.2-1.3) mg/dL AST (14-36) U/L ALT (9-52) U/L Alkaline Phosphatase (38-126) U/L Total Protein (6.3-8.3) g/dL Albumin (3.5-5.0) g/dL Globulin (2.2-3.9) gm/dL Albumin/Globulin Ratio (1.0-2.1) 08/09/16 08/09/16 08/08/16 Range/Units 06:35 04:00 22:03 WBC 6.4 (4.8-10.8) K/uL RBC 3.56 L (3.80-5.20) Mil/uL Hgb 12.2 (11.0-16.0) g/dL Hct 35.8 (34.0-47.0) % MCV 100.6 H (81.0-99.0) fL MCH 34.2 H (27.0-31.0) pg MCHC 34.0 (33.0-37.0) g/dL RDW 18.2 H (11.5-14.5) % Plt Count 93 L (130-400) K/uL MPV 10.1 (7.2-11.7) fL Neut % (Auto) 74.0 (50.0-75.0) % Lymph % (Auto) 9.3 L (20.0-40.0) % [place] % (Auto) 10.0 (0.0-10.0) % Eos % (Auto) 4.7 H (0.0-4.0) % Baso % (Auto) 2.0 (0.0-2.0) % Neut # 4.8 (1.8-7.0) K/uL Lymph # 0.6 L (1.0-4.3) K/uL [place] # 0.6 (0.0-0.8) K/uL Eos # 0.3 (0.0-0.7) K/uL Baso # 0.1 (0.0-0.2) K/uL Neutrophils % (Manual) 82 H (50-75) % Band Neutrophils % 2 (0-2) % Lymphocytes % (Manual) 7 L (20-40) % Monocytes % (Manual) 4 (0-10) % Eosinophils % (Manual) 5 H (0-4) % Platelet Estimate Decreased L (NORMAL) Polychromasia Slight Anisocytosis (manual) Slight Macrocytosis (manual) Slight Target Cells Slight Sodium 135 (132-148) mmol/L Potassium 3.2 L (3.6-5.2) mmol/L Chloride 94 L (98-107) mmol/L Carbon Dioxide 31 H (22-30) mmol/L Anion Gap 13 (10-20) BUN 21 H (7-17) mg/dL Creatinine 1.7 H (0.7-1.2) MG/DL Est GFR ( Amer) 36 Est GFR (Non-Af Amer) 29 POC Glucose (mg/dL) 87 (65-110) mg/dL Random Glucose 81 (65-105) mg/dL Calcium 9.0 (8.6-10.4) mg/dl Phosphorus 3.1 (2.5-4.5) mg/dL Magnesium 1.9 (1.6-2.3) mg/dL Total Bilirubin 1.9 H (0.2-1.3) mg/dL AST 37 H D (14-36) U/L ALT 17 (9-52) U/L Alkaline Phosphatase 207 H (38-126) U/L Total Protein 8.1 (6.3-8.3) g/dL Albumin 3.3 L (3.5-5.0) g/dL Globulin 4.8 H (2.2-3.9) gm/dL Albumin/Globulin Ratio 0.7 L (1.0-2.1) 08/08/16 08/08/16 Range/Units 21:18 17:43 WBC (4.8-10.8) K/uL RBC (3.80-5.20) Mil/uL Hgb (11.0-16.0) g/dL Hct (34.0-47.0) % MCV (81.0-99.0) fL MCH (27.0-31.0) pg MCHC (33.0-37.0) g/dL RDW (11.5-14.5) % Plt Count (130-400) K/uL MPV (7.2-11.7) fL Neut % (Auto) (50.0-75.0) % Lymph % (Auto) (20.0-40.0) % [place] % (Auto) (0.0-10.0) % Eos % (Auto) (0.0-4.0) % Baso % (Auto) (0.0-2.0) % Neut # (1.8-7.0) K/uL Lymph # (1.0-4.3) K/uL [place] # (0.0-0.8) K/uL Eos # (0.0-0.7) K/uL Baso # (0.0-0.2) K/uL Neutrophils % (Manual) (50-75) % Band Neutrophils % (0-2) % Lymphocytes % (Manual) (20-40) % Monocytes % (Manual) (0-10) % Eosinophils % (Manual) (0-4) % Platelet Estimate (NORMAL) Polychromasia Anisocytosis (manual) Macrocytosis (manual) Target Cells Sodium (132-148) mmol/L Potassium (3.6-5.2) mmol/L Chloride (98-107) mmol/L Carbon Dioxide (22-30) mmol/L Anion Gap (10-20) BUN (7-17) mg/dL Creatinine (0.7-1.2) MG/DL Est GFR ( Amer) Est GFR (Non-Af Amer) POC Glucose (mg/dL) 65 126 H (65-110) mg/dL Random Glucose (65-105) mg/dL Calcium (8.6-10.4) mg/dl Phosphorus (2.5-4.5) mg/dL Magnesium (1.6-2.3) mg/dL Total Bilirubin (0.2-1.3) mg/dL AST (14-36) U/L ALT (9-52) U/L Alkaline Phosphatase (38-126) U/L Total Protein (6.3-8.3) g/dL Albumin (3.5-5.0) g/dL Globulin (2.2-3.9) gm/dL Albumin/Globulin Ratio (1.0-2.1) Laboratory Results - last 24 hr 08/08/16 08/08/16 08/08/16 17:43 21:18 22:03 WBC RBC Hgb Hct MCV MCH MCHC RDW Plt Count MPV Neut % (Auto) Lymph % (Auto) [place] % (Auto) Eos % (Auto) Baso % (Auto) Neut # Lymph # [place] # Eos # Baso # Neutrophils % (Manual) Band Neutrophils % Lymphocytes % (Manual) Monocytes % (Manual) Eosinophils % (Manual) Platelet Estimate Polychromasia Anisocytosis (manual) Macrocytosis (manual) Target Cells Sodium Potassium Chloride Carbon Dioxide Anion Gap BUN Creatinine Est GFR ( Amer) Est GFR (Non-Af Amer) POC Glucose (mg/dL) 126 H 65 87 Random Glucose Calcium Phosphorus Magnesium Total Bilirubin AST ALT Alkaline Phosphatase Total Protein Albumin Globulin Albumin/Globulin Ratio 08/09/16 08/09/16 08/09/16 04:00 06:35 07:30 WBC 6.4 RBC 3.56 L Hgb 12.2 Hct 35.8 MCV 100.6 H MCH 34.2 H MCHC 34.0 RDW 18.2 H Plt Count 93 L MPV 10.1 Neut % (Auto) 74.0 Lymph % (Auto) 9.3 L [place] % (Auto) 10.0 Eos % (Auto) 4.7 H Baso % (Auto) 2.0 Neut # 4.8 Lymph # 0.6 L [place] # 0.6 Eos # 0.3 Baso # 0.1 Neutrophils % (Manual) 82 H Band Neutrophils % 2 Lymphocytes % (Manual) 7 L Monocytes % (Manual) 4 Eosinophils % (Manual) 5 H Platelet Estimate Decreased L Polychromasia Slight Anisocytosis (manual) Slight Macrocytosis (manual) Slight Target Cells Slight Sodium 135 Potassium 3.2 L Chloride 94 L Carbon Dioxide 31 H Anion Gap 13 BUN 21 H Creatinine 1.7 H Est GFR ( Amer) 36 Est GFR (Non-Af Amer) 29 POC Glucose (mg/dL) 73 Random Glucose 81 Calcium 9.0 Phosphorus 3.1 Magnesium 1.9 Total Bilirubin 1.9 H AST 37 H D ALT 17 Alkaline Phosphatase 207 H Total Protein 8.1 Albumin 3.3 L Globulin 4.8 H Albumin/Globulin Ratio 0.7 L 08/09/16 08/09/16 11:15 16:31 WBC RBC Hgb Hct MCV MCH MCHC RDW Plt Count MPV Neut % (Auto) Lymph % (Auto) [place] % (Auto) Eos % (Auto) Baso % (Auto) Neut # Lymph # [place] # Eos # Baso # Neutrophils % (Manual) Band Neutrophils % Lymphocytes % (Manual) Monocytes % (Manual) Eosinophils % (Manual) Platelet Estimate Polychromasia Anisocytosis (manual) Macrocytosis (manual) Target Cells Sodium Potassium Chloride Carbon Dioxide Anion Gap BUN Creatinine Est GFR ( Amer) Est GFR (Non-Af Amer) POC Glucose (mg/dL) 94 89 Random Glucose Calcium Phosphorus Magnesium Total Bilirubin AST ALT Alkaline Phosphatase Total Protein Albumin Globulin Albumin/Globulin Ratio Critical Care Progress Note - Nutrition Nutrition: Nutrition Category Date Time Status Heart Healthy Diet [DIET] Diets 08/08/16 Breakfast Active Attending/Attestation - Attestation I have personally seen and examined this patient.: Yes I have fully participated in the care of the patient.: Yes I have reviewed all pertinent clinical information: Yes Notes (Text): 08/09/16 16:52 Patient seen and examined in the intensive care unit. Case discussed with staff in the morning rounds. Status post thoracentesis and 1.8 L of fluid removed Continue hemodialysis Stable for transfer to floor
--- NOTE | 2016-08-09 13:07 | RAD ---
HISTORY: s/p thoracentesis . Technique: Single view portable semi erect @ 12:00. COMPARISON: August 09, 2016. Pre thoracentesis at 07:15. FINDINGS: LUNGS: Markedly improved aeration of the lung the following right thoracentesis. PLEURA: Right pneumothorax ex vacuo. No evidence of tension pneumothorax. CARDIOVASCULAR: Cardiomegaly. No evidence of acute, significant cardiovascular disease. Incidental Finding(s): Postoperative changes related to sternotomy. OSSEOUS STRUCTURES: No significant abnormalities. VISUALIZED UPPER ABDOMEN: Normal. OTHER FINDINGS: Right axillary stent again identified. IMPRESSION: No residual pleural effusions status post right thoracentesis. Right pneumothorax ex vacuo. No evidence of tension pneumothorax, at pneumomediastinum, subcutaneous emphysema.
[2016-08-10 07:23] LABS: BASO # 0.1 K/uL (0.0-0.2); BASO % 1.2 % (0.0-2.0); EOS # 0.2 K/uL (0.0-0.7); HEMATOCRIT 31.2 % (34.0-47.0); LYMPH # 0.7 K/uL (1.0-4.3); LYMPH % 9.2 % (20.0-40.0); MEAN CELL VOLUME 100.8 fL (81.0-99.0); MEAN CORPUSCULAR HEMOGLOBIN 33.7 pg (27.0-31.0); MEAN CORPUSCULAR HGB CONC 33.5 g/dL (33.0-37.0); MEAN PLATELET VOLUME 9.8 fL (7.2-11.7); MONO # 0.8 K/uL (0.0-0.8); MONO % 10.5 % (0.0-10.0); NRBC % 0.3 % (0.0-2.0); PLATELET COUNT 97 K/uL (130-400); WHITE BLOOD COUNT 7.3 K/uL (4.8-10.8)
[2016-08-10 07:30] LABS: POTASSIUM 3.7 mmol/L (3.6-5.2)
[2016-08-10 07:32] LABS: ALB/GLOB RATIO 0.7 (1.0-2.1); BILIRUBIN,TOTAL 1.6 mg/dL (0.2-1.3); TOTAL PROTEIN 7.4 g/dL (6.3-8.3)
[2016-08-10 07:33] LABS: CALCIUM 9.1 mg/dl (8.6-10.4); MAGNESIUM 2.1 mg/dL (1.6-2.3); PHOSPHOROUS 3.8 mg/dL (2.5-4.5)
[2016-08-10] MEDS: Levothyroxine 75 MCG TAB PO SCH (07:45)
--- NOTE | 2016-08-10 07:54 | CP.CCUPN ---
Addendum entered and electronically signed by Heather Meza DO 08/10/16 10:54 : Urine culture- no growth Original Note: <Heather Meza - Last Filed: 08/10/16 10:48> CCU Subjective - Physician Review Subjective (Free Text): Patient was seen and examined at bedside. Patient is breathing well. No acute events overnight or acute complaints from patient. ESRD on HD MWF schedule. Patient s/p thoracentesis removed 1800cc yesterday. Patient is scheduled for dialysis today, with an increase in ultrafiltration during dialysis. This morning CXR showed increased fluid. Ordered CT Chest- revealed right sided hydropneumothorax. Patient is comfortable, in no respiratory distress, 100% on 3L NC. CT was consulted - Dr. Soto- help appreciated. CCU Objective - Vital Signs / Intake & Output Intake and Output (Last 8hrs): Intake & Output 08/09/16 08/10/16 08/10/16 22:59 06:59 14:59 Intake Total 270 50 Output Total 0 0 Balance 270 50 Intake: Oral 270 50 Output: Urine 0 0 Urine, Voided 0 0 - Physical Exam Head: Positive for: Atraumatic, Normocephalic Extroacular Muscles: Positive for: EOMI Conjunctiva: Positive for: Normal Mouth: Positive for: Dry Neck: Positive for: Normal Range of Motion Respiratory/Chest: Positive for: Decreased Breath Sounds Cardiovascular: Positive for: Bradycardic Abdomen: Positive for: Normal Bowel Sounds. Negative for: Tenderness, Distention Upper Extremity: Positive for: Normal Inspection Lower Extremity: Positive for: Normal Inspection, Edema, NORMAL PULSES. Negative for: CALF TENDERNESS Neurological: Positive for: GCS=15, CN II-XII Intact Skin: Positive for: Warm, Dry Psychiatric: Positive for: Alert - Medications Active Medications: Active Medications Generic Name Dose Route Start Last Admin Trade Name Freq PRN Reason Stop Dose Admin Aspirin 81 mg 08/09/16 10:00 08/09/16 09:01 Aspirin Chewable PO 81 mg DAILY REKHA Administration Bisoprolol Fumarate 5 mg 08/09/16 07:30 08/09/16 08:56 Zebeta PO 5 mg ACB REKHA Administration Calcium Acetate 667 mg 08/08/16 17:00 08/10/16 07:47 Phoslo PO 667 mg TIDCC REKHA Administration Diphenhydramine HCl 25 mg 08/08/16 16:53 Benadryl PO Q4H PRN allergies Furosemide 40 mg 08/09/16 10:00 08/09/16 09:01 Lasix PO 40 mg DAILY REKHA Administration Cefepime HCl 50 mls @ 100 mls/hr 08/10/16 10:00 Maxipime Iv 1 Gm Premix IVPB DAILY REKHA Levothyroxine Sodium 75 mcg 08/09/16 07:30 08/10/16 07:45 Synthroid PO 75 mcg ACB REKHA Administration Pantoprazole Sodium 40 mg 08/09/16 10:45 08/09/16 12:03 Protonix Inj IVP 40 mg DAILY REKHA Administration Rosuvastatin Calcium 10 mg 08/09/16 22:00 08/09/16 22:21 Crestor PO 10 mg HS REKHA Administration - Patient Studies Lab Studies: Lab Studies 08/10/16 08/10/16 08/09/16 Range/Units 07:36 06:43 21:21 WBC 7.3 (4.8-10.8) K/uL RBC 3.10 L (3.80-5.20) Mil/uL Hgb 10.4 L (11.0-16.0) g/dL Hct 31.2 L (34.0-47.0) % MCV 100.8 H (81.0-99.0) fL MCH 33.7 H (27.0-31.0) pg MCHC 33.5 (33.0-37.0) g/dL RDW 18.0 H (11.5-14.5) % Plt Count 97 L (130-400) K/uL MPV 9.8 (7.2-11.7) fL Neut % (Auto) 76.1 H (50.0-75.0) % Lymph % (Auto) 9.2 L (20.0-40.0) % Sterling % (Auto) 10.5 H (0.0-10.0) % Eos % (Auto) 3.0 (0.0-4.0) % Baso % (Auto) 1.2 (0.0-2.0) % Neut # 5.6 (1.8-7.0) K/uL Lymph # 0.7 L (1.0-4.3) K/uL Sterling # 0.8 (0.0-0.8) K/uL Eos # 0.2 (0.0-0.7) K/uL Baso # 0.1 (0.0-0.2) K/uL Neutrophils % (Manual) (50-75) % Band Neutrophils % (0-2) % Lymphocytes % (Manual) (20-40) % Monocytes % (Manual) (0-10) % Eosinophils % (Manual) (0-4) % Platelet Estimate (NORMAL) Polychromasia Anisocytosis (manual) Macrocytosis (manual) Target Cells Sodium 135 (132-148) mmol/L Potassium 3.7 (3.6-5.2) mmol/L Chloride 95 L (98-107) mmol/L Carbon Dioxide 26 (22-30) mmol/L Anion Gap 18 (10-20) BUN 32 H (7-17) mg/dL Creatinine 2.4 H (0.7-1.2) MG/DL Est GFR ( Amer) 24 Est GFR (Non-Af Amer) 20 POC Glucose (mg/dL) 104 210 H (65-110) mg/dL Random Glucose 100 (65-105) mg/dL Calcium 9.1 (8.6-10.4) mg/dl Phosphorus 3.8 (2.5-4.5) mg/dL Magnesium 2.1 (1.6-2.3) mg/dL Total Bilirubin 1.6 H (0.2-1.3) mg/dL AST 32 (14-36) U/L ALT 15 (9-52) U/L Alkaline Phosphatase 171 H (38-126) U/L Total Protein 7.4 (6.3-8.3) g/dL Albumin 3.0 L (3.5-5.0) g/dL Globulin 4.4 H (2.2-3.9) gm/dL Albumin/Globulin Ratio 0.7 L (1.0-2.1) 08/09/16 08/09/16 08/09/16 Range/Units 16:31 11:15 06:35 WBC (4.8-10.8) K/uL RBC (3.80-5.20) Mil/uL Hgb (11.0-16.0) g/dL Hct (34.0-47.0) % MCV (81.0-99.0) fL MCH (27.0-31.0) pg MCHC (33.0-37.0) g/dL RDW (11.5-14.5) % Plt Count (130-400) K/uL MPV (7.2-11.7) fL Neut % (Auto) (50.0-75.0) % Lymph % (Auto) (20.0-40.0) % Sterling % (Auto) (0.0-10.0) % Eos % (Auto) (0.0-4.0) % Baso % (Auto) (0.0-2.0) % Neut # (1.8-7.0) K/uL Lymph # (1.0-4.3) K/uL Sterling # (0.0-0.8) K/uL Eos # (0.0-0.7) K/uL Baso # (0.0-0.2) K/uL Neutrophils % (Manual) 82 H (50-75) % Band Neutrophils % 2 (0-2) % Lymphocytes % (Manual) 7 L (20-40) % Monocytes % (Manual) 4 (0-10) % Eosinophils % (Manual) 5 H (0-4) % Platelet Estimate Decreased L (NORMAL) Polychromasia Slight Anisocytosis (manual) Slight Macrocytosis (manual) Slight Target Cells Slight Sodium (132-148) mmol/L Potassium (3.6-5.2) mmol/L Chloride (98-107) mmol/L Carbon Dioxide (22-30) mmol/L Anion Gap (10-20) BUN (7-17) mg/dL Creatinine (0.7-1.2) MG/DL Est GFR ( Amer) Est GFR (Non-Af Amer) POC Glucose (mg/dL) 89 94 (65-110) mg/dL Random Glucose (65-105) mg/dL Calcium (8.6-10.4) mg/dl Phosphorus (2.5-4.5) mg/dL Magnesium (1.6-2.3) mg/dL Total Bilirubin (0.2-1.3) mg/dL AST (14-36) U/L ALT (9-52) U/L Alkaline Phosphatase (38-126) U/L Total Protein (6.3-8.3) g/dL Albumin (3.5-5.0) g/dL Globulin (2.2-3.9) gm/dL Albumin/Globulin Ratio (1.0-2.1) Laboratory Results - last 24 hr 08/09/16 08/09/16 08/09/16 06:35 11:15 16:31 WBC RBC Hgb Hct MCV MCH MCHC RDW Plt Count MPV Neut % (Auto) Lymph % (Auto) Sterling % (Auto) Eos % (Auto) Baso % (Auto) Neut # Lymph # Sterling # Eos # Baso # Neutrophils % (Manual) 82 H Band Neutrophils % 2 Lymphocytes % (Manual) 7 L Monocytes % (Manual) 4 Eosinophils % (Manual) 5 H Platelet Estimate Decreased L Polychromasia Slight Anisocytosis (manual) Slight Macrocytosis (manual) Slight Target Cells Slight Sodium Potassium Chloride Carbon Dioxide Anion Gap BUN Creatinine Est GFR ( Amer) Est GFR (Non-Af Amer) POC Glucose (mg/dL) 94 89 Random Glucose Calcium Phosphorus Magnesium Total Bilirubin AST ALT Alkaline Phosphatase Total Protein Albumin Globulin Albumin/Globulin Ratio 08/09/16 08/10/16 08/10/16 21:21 06:43 07:36 WBC 7.3 RBC 3.10 L Hgb 10.4 L Hct 31.2 L MCV 100.8 H MCH 33.7 H MCHC 33.5 RDW 18.0 H Plt Count 97 L MPV 9.8 Neut % (Auto) 76.1 H Lymph % (Auto) 9.2 L Sterling % (Auto) 10.5 H Eos % (Auto) 3.0 Baso % (Auto) 1.2 Neut # 5.6 Lymph # 0.7 L Sterling # 0.8 Eos # 0.2 Baso # 0.1 Neutrophils % (Manual) Band Neutrophils % Lymphocytes % (Manual) Monocytes % (Manual) Eosinophils % (Manual) Platelet Estimate Polychromasia Anisocytosis (manual) Macrocytosis (manual) Target Cells Sodium 135 Potassium 3.7 Chloride 95 L Carbon Dioxide 26 Anion Gap 18 BUN 32 H Creatinine 2.4 H Est GFR ( Amer) 24 Est GFR (Non-Af Amer) 20 POC Glucose (mg/dL) 210 H 104 Random Glucose 100 Calcium 9.1 Phosphorus 3.8 Magnesium 2.1 Total Bilirubin 1.6 H AST 32 ALT 15 Alkaline Phosphatase 171 H Total Protein 7.4 Albumin 3.0 L Globulin 4.4 H Albumin/Globulin Ratio 0.7 L Fingerstick Blood Sugar Results: 210 Critical Care Progress Note - Nutrition Nutrition: Nutrition Category Date Time Status Heart Healthy Diet [DIET] Diets 08/08/16 Breakfast Active Assessment/Plan - Assessment and Plan (Free Text) Assessment: 75 year old female with ESRD currently on dialysis MWF presented with CHF, in need of dialysis. Plan: Neuro: Upon admission patient was mild AMS, currently more oriented. Was hypothermic, normal temperature now. CV: -CHF - Lasix 40mg PO daily -Hx CAD: ASA, Crestor -HTN - Continue Zebeta Pulm: -Right sided recurrent pleural effusions - Dr. Walker consulted for thoracentesis - help appreciated - 1800mL was removed. -This morning CXR showed increased fluid. Ordered CT Chest- revealed right sided hydropneumothorax. Patient is comfortable , in no respiratory distress, 100% on 3L NC. CT was consulted - Dr. Soto- help appreciated. Renal: -ESRD on HD MWF -Continued Phoslo and Dr. Mcfarland - help appreciated Patient underwent dialysis on Monday and had 2.2 L removed. As per Dr. Mcfarland, he will increase ultrafiltration on next dialysis. Endo: - DM: Upon admission patient was hypoglycemic - Hypothyroidism: Synthroid 75 mcg PO ACB ID: Afebrile, no white count Initial UA showed UTI- Cefepime Q12H F/U repeat UA, urine, blood cultures Left foot ulcer - f/u wound care Prophylaxis: GI: Protonix 40mg IVP daily DVT: SCDs, VTE contraindicated due to thrombocytopenia Heart Healthy Diet Derrick Krishnamurthy Dr., DO, PGY-1 <Jonatan Scales - Last Filed: 08/10/16 15:56> CCU Objective - Vital Signs / Intake & Output Vital Signs (Last 4 hours): Vital Signs Temp Pulse Pulse Resp BP BP Pulse Ox 08/10/16 15:40 110/74 08/10/16 15:25 108/49 L 08/10/16 15:10 117/50 L 08/10/16 14:55 96 F L 54 L 14 122/45 L 100 08/10/16 14:50 96 F L 54 L 14 122/47 L 08/10/16 13:00 56 L 18 118/101 H 100 08/10/16 12:00 97.8 F 61 18 119/57 L 100 Intake and Output (Last 8hrs): Intake & Output 08/10/16 08/10/16 08/10/16 06:59 14:59 22:59 Intake Total 50 125 Output Total 0 0 Balance 50 125 Intake: Intake, IV Amount 50 Right Antecubital 50 Oral 50 75 Output: Urine 0 0 Urine, Voided 0 0 Stool 0 - Medications Active Medications: Active Medications Generic Name Dose Route Start Last Admin Trade Name Freq PRN Reason Stop Dose Admin Aspirin 81 mg 08/09/16 10:00 08/10/16 09:04 Aspirin Chewable PO 81 mg DAILY REKHA Administration Bisoprolol Fumarate 5 mg 08/09/16 07:30 08/10/16 09:21 Zebeta PO Not Given ACB REKHA Calcium Acetate 667 mg 08/08/16 17:00 08/10/16 12:39 Phoslo PO 667 mg TIDCC REKHA Administration Diphenhydramine HCl 25 mg 08/08/16 16:53 Benadryl PO Q4H PRN allergies Cefepime HCl 50 mls @ 100 mls/hr 08/10/16 10:00 08/10/16 09:06 Maxipime Iv 1 Gm Premix IVPB 100 mls/hr DAILY REKHA Administration Levothyroxine Sodium 75 mcg 08/09/16 07:30 08/10/16 07:45 Synthroid PO 75 mcg ACB REKHA Administration Pantoprazole Sodium 40 mg 08/10/16 10:00 08/10/16 09:21 Protonix Ec Tab PO Not Given DAILY REKHA Rosuvastatin Calcium 10 mg 08/09/16 22:00 08/09/16 22:21 Crestor PO 10 mg HS REKHA Administration - Patient Studies Lab Studies: Microbiology Studies 08/08/16 Unknown Urine Culture - Final Urine Yeast Species 08/09/16 11:05 Urine Culture - Final Urine,Catheterized No Growth (<1,000 CFU/ML) Lab Studies 08/10/16 08/10/16 08/10/16 Range/Units 11:35 07:36 06:43 WBC 7.3 (4.8-10.8) K/uL RBC 3.10 L (3.80-5.20) Mil/uL Hgb 10.4 L (11.0-16.0) g/dL Hct 31.2 L (34.0-47.0) % MCV 100.8 H (81.0-99.0) fL MCH 33.7 H (27.0-31.0) pg MCHC 33.5 (33.0-37.0) g/dL RDW 18.0 H (11.5-14.5) % Plt Count 97 L (130-400) K/uL MPV 9.8 (7.2-11.7) fL Neut % (Auto) 76.1 H (50.0-75.0) % Lymph % (Auto) 9.2 L (20.0-40.0) % Sterling % (Auto) 10.5 H (0.0-10.0) % Eos % (Auto) 3.0 (0.0-4.0) % Baso % (Auto) 1.2 (0.0-2.0) % Neut # 5.6 (1.8-7.0) K/uL Lymph # 0.7 L (1.0-4.3) K/uL Sterling # 0.8 (0.0-0.8) K/uL Eos # 0.2 (0.0-0.7) K/uL Baso # 0.1 (0.0-0.2) K/uL Neutrophils % (Manual) 78 H (50-75) % Band Neutrophils % 1 (0-2) % Lymphocytes % (Manual) 8 L (20-40) % Monocytes % (Manual) 11 H (0-10) % Eosinophils % (Manual) 2 (0-4) % Platelet Estimate Decreased L (NORMAL) Hypochromasia (manual) Slight Poikilocytosis (manual Slight Anisocytosis (manual) Slight Target Cells Slight Polk Cells Slight Sodium 135 (132-148) mmol/L Potassium 3.7 (3.6-5.2) mmol/L Chloride 95 L (98-107) mmol/L Carbon Dioxide 26 (22-30) mmol/L Anion Gap 18 (10-20) BUN 32 H (7-17) mg/dL Creatinine 2.4 H (0.7-1.2) MG/DL Est GFR ( Amer) 24 Est GFR (Non-Af Amer) 20 POC Glucose (mg/dL) 192 H 104 (65-110) mg/dL Random Glucose 100 (65-105) mg/dL Calcium 9.1 (8.6-10.4) mg/dl Phosphorus 3.8 (2.5-4.5) mg/dL Magnesium 2.1 (1.6-2.3) mg/dL Total Bilirubin 1.6 H (0.2-1.3) mg/dL AST 32 (14-36) U/L ALT 15 (9-52) U/L Alkaline Phosphatase 171 H (38-126) U/L Total Protein 7.4 (6.3-8.3) g/dL Albumin 3.0 L (3.5-5.0) g/dL Globulin 4.4 H (2.2-3.9) gm/dL Albumin/Globulin Ratio 0.7 L (1.0-2.1) 08/09/16 08/09/16 Range/Units 21:21 16:31 WBC (4.8-10.8) K/uL RBC (3.80-5.20) Mil/uL Hgb (11.0-16.0) g/dL Hct (34.0-47.0) % MCV (81.0-99.0) fL MCH (27.0-31.0) pg MCHC (33.0-37.0) g/dL RDW (11.5-14.5) % Plt Count (130-400) K/uL MPV (7.2-11.7) fL Neut % (Auto) (50.0-75.0) % Lymph % (Auto) (20.0-40.0) % Sterling % (Auto) (0.0-10.0) % Eos % (Auto) (0.0-4.0) % Baso % (Auto) (0.0-2.0) % Neut # (1.8-7.0) K/uL Lymph # (1.0-4.3) K/uL Sterling # (0.0-0.8) K/uL Eos # (0.0-0.7) K/uL Baso # (0.0-0.2) K/uL Neutrophils % (Manual) (50-75) % Band Neutrophils % (0-2) % Lymphocytes % (Manual) (20-40) % Monocytes % (Manual) (0-10) % Eosinophils % (Manual) (0-4) % Platelet Estimate (NORMAL) Hypochromasia (manual) Poikilocytosis (manual Anisocytosis (manual) Target Cells [place]k Cells Sodium (132-148) mmol/L Potassium (3.6-5.2) mmol/L Chloride (98-107) mmol/L Carbon Dioxide (22-30) mmol/L Anion Gap (10-20) BUN (7-17) mg/dL Creatinine (0.7-1.2) MG/DL Est GFR ( Amer) Est GFR (Non-Af Amer) POC Glucose (mg/dL) 210 H 89 (65-110) mg/dL Random Glucose (65-105) mg/dL Calcium (8.6-10.4) mg/dl Phosphorus (2.5-4.5) mg/dL Magnesium (1.6-2.3) mg/dL Total Bilirubin (0.2-1.3) mg/dL AST (14-36) U/L ALT (9-52) U/L Alkaline Phosphatase (38-126) U/L Total Protein (6.3-8.3) g/dL Albumin (3.5-5.0) g/dL Globulin (2.2-3.9) gm/dL Albumin/Globulin Ratio (1.0-2.1) Laboratory Results - last 24 hr 08/09/16 08/09/16 08/10/16 16:31 21:21 06:43 WBC 7.3 RBC 3.10 L Hgb 10.4 L Hct 31.2 L MCV 100.8 H MCH 33.7 H MCHC 33.5 RDW 18.0 H Plt Count 97 L MPV 9.8 Neut % (Auto) 76.1 H Lymph % (Auto) 9.2 L Sterling % (Auto) 10.5 H Eos % (Auto) 3.0 Baso % (Auto) 1.2 Neut # 5.6 Lymph # 0.7 L Sterling # 0.8 Eos # 0.2 Baso # 0.1 Neutrophils % (Manual) 78 H Band Neutrophils % 1 Lymphocytes % (Manual) 8 L Monocytes % (Manual) 11 H Eosinophils % (Manual) 2 Platelet Estimate Decreased L Hypochromasia (manual) Slight Poikilocytosis (manual Slight Anisocytosis (manual) Slight Target Cells Slight Melia Cells Slight Sodium 135 Potassium 3.7 Chloride 95 L Carbon Dioxide 26 Anion Gap 18 BUN 32 H Creatinine 2.4 H Est GFR ( Amer) 24 Est GFR (Non-Af Amer) 20 POC Glucose (mg/dL) 89 210 H Random Glucose 100 Calcium 9.1 Phosphorus 3.8 Magnesium 2.1 Total Bilirubin 1.6 H AST 32 ALT 15 Alkaline Phosphatase 171 H Total Protein 7.4 Albumin 3.0 L Globulin 4.4 H Albumin/Globulin Ratio 0.7 L 08/10/16 08/10/16 07:36 11:35 WBC RBC Hgb Hct MCV MCH MCHC RDW Plt Count MPV Neut % (Auto) Lymph % (Auto) Sterling % (Auto) Eos % (Auto) Baso % (Auto) Neut # Lymph # Sterling # Eos # Baso # Neutrophils % (Manual) Band Neutrophils % Lymphocytes % (Manual) Monocytes % (Manual) Eosinophils % (Manual) Platelet Estimate Hypochromasia (manual) Poikilocytosis (manual Anisocytosis (manual) Target Cells [place]k Cells Sodium Potassium Chloride Carbon Dioxide Anion Gap BUN Creatinine Est GFR ( Amer) Est GFR (Non-Af Amer) POC Glucose (mg/dL) 104 192 H Random Glucose Calcium Phosphorus Magnesium Total Bilirubin AST ALT Alkaline Phosphatase Total Protein Albumin Globulin Albumin/Globulin Ratio Critical Care Progress Note - Nutrition Nutrition: Nutrition Category Date Time Status Heart Healthy Diet [DIET] Diets 08/08/16 Breakfast Active Attending/Attestation - Attestation I have personally seen and examined this patient.: Yes I have fully participated in the care of the patient.: Yes I have reviewed all pertinent clinical information: Yes Notes (Text): 08/10/16 15:55 Patient seen and examined in the intensive care unit. Case discussed with house staff in the morning rounds. CAT scan of the chest consistent with right hydropneumothorax. For thoracic consult and family at this point refusing chest tube insertion Continue present treatment
[2016-08-10 08:17] LABS: EOSINOPHIL 2 % (0-4); NEUTROPHIL 78 % (50-75); TOTAL CELLS COUNTED 100
--- NOTE | 2016-08-10 08:47 | RAD ---
HISTORY: f/u pleural effusion COMPARISON: 08/09/2016 FINDINGS: LUNGS: Large loculated right sided hydropneumothorax. Dense consolidative changes in the right mid and lower lung zones. Mild patchy left basilar airspace opacity. PLEURA: As above. CARDIOVASCULAR: Status post median sternotomy and CABG. Calcification at the aortic knob. Left axillary stent in place. OSSEOUS STRUCTURES: Deformity of the right proximal humerus. VISUALIZED UPPER ABDOMEN: Normal. OTHER FINDINGS: None. IMPRESSION: Large loculated right sided hydropneumothorax. Dense consolidative changes in the right mid and lower lung zones. Mild patchy left basilar airspace opacity.
[2016-08-10] MEDS: Cefepime IV 1 gm in Dextrose 50 ML IVPB SCH (09:06)
[2016-08-10] MEDS: Pantoprazole 40 mg EC Tab PO SCH (09:21)
--- NOTE | 2016-08-10 12:09 | CT ---
PROCEDURE: CT Chest without contrast HISTORY: s/p thoracentesis COMPARISON: Chest radiograph from 08/10/[address] from 02/21/2016 TECHNIQUE: Contiguous axial images were obtained through the chest without intravenous contrast enhancement. Sagittal and coronal reconstructions were performed. Radiation dose (DLP): 385.98 mGy-cm. This CT exam was performed using one or more of the following dose reduction techniques: Automated exposure control, adjustment of the mA and/or kV according to patient size, and/or use of iterative reconstruction technique. FINDINGS: LUNGS: Multifocal airspace opacity in the right middle lobe. Atelectatic changes in the left lung base. Soft tissue density and near complete opacification of the right bronchus intermedius and multiple bronchi involving the right middle and right lower lobes. MEDIASTINUM: No ascending aortic aneurysm. The pulmonary artery is normal in caliber. Extensive coronary artery calcifications. Enlarged heart. No significant pericardial effusion. PLEURA: Moderate-sized hydro pneumothorax involving the right upper lobe. Large right-sided pleural effusion with multifocal areas of high density suspicious for hemorrhage. Multifocal foci of air within the fluid noted. BONES: Degenerative changes. Generalized osteopenia. Midline sternotomy wires. UPPER ABDOMEN: Suboptimal evaluation of the upper abdomen. Visualized portions of the spleen, pancreas, liver appear grossly unremarkable. Extensive vascular calcifications noted. Small hiatal hernia. Moderately distended stomach with bubbly soft tissue material likely from ingested particles. OTHER FINDINGS: Previously identified dialysis catheter on the right has been removed. Heterogeneous breast tissue bilaterally. Extensive vascular calcifications. Generalized anasarca. Presumed vascular stents in the left axilla in the proximal left upper arm. The patency of the stents are not evaluated due to lack of intravenous contrast. IMPRESSION: Moderate size hydro pneumothorax involving the right upper lobe. Right sided pleural effusion with multifocal areas of high density suspicious for hemorrhage. Multifocal foci of air seen within the pleural effusion. Underlying infection should also be considered. Soft tissue density near complete opacification of the right bronchus intermedius and multiple bronchi involving the right middle and right lower lobes. Generalized anasarca. Other findings as above. Discussed with Dr. Bliss at approximately 12:08 p.m. on 08/10/2016.
--- NOTE | 2016-08-10 13:01 | CP.PCM.PN ---
Subjective - Date & Time of Evaluation Date of Evaluation: 08/10/16 Time of Evaluation: 12:58 - Subjective Subjective: Comfortable in bed- s/ dyspneic CT chest showed moderte hydro pneumothorax To be seen by CT surgery Dialysis scheduled today with increased UF rate No new complaints; eating ok Objective - Vital Signs/Intake and Output Vital Signs (last 24 hours): Temp Pulse Resp BP Pulse Ox 97.2 F L 57 L 18 112/53 L 100 08/10/16 08:00 08/10/16 11:00 08/10/16 11:00 08/10/16 11:00 08/10/16 11:00 Intake and Output: 08/10/16 08/10/16 06:59 18:59 Intake Total 270 125 Output Total 0 0 Balance 270 125 - Medications Medications: Current Medications Aspirin (Aspirin Chewable) 81 mg PO DAILY [facility] Last Admin: 08/10/16 09:04 Dose: 81 mg Bisoprolol Fumarate (Zebeta) 5 mg PO ACB [facility] Last Admin: 08/10/16 09:21 Dose: Not Given Calcium Acetate (Phoslo) 667 mg PO TIDCC [facility] Last Admin: 08/10/16 12:39 Dose: 667 mg Diphenhydramine HCl (Benadryl) 25 mg PO Q4H PRN PRN Reason: allergies Cefepime HCl (Maxipime Iv 1 Gm Premix) 50 mls @ 100 mls/hr IVPB DAILY [facility] Last Admin: 08/10/16 09:06 Dose: 100 mls/hr Levothyroxine Sodium (Synthroid) 75 mcg PO ACB [facility] Last Admin: 08/10/16 07:45 Dose: 75 mcg Pantoprazole Sodium (Protonix Ec Tab) 40 mg PO DAILY [facility] Last Admin: 08/10/16 09:21 Dose: Not Given Rosuvastatin Calcium (Crestor) 10 mg PO HS [facility] Last Admin: 08/09/16 22:21 Dose: 10 mg - Labs Labs: 08/10/16 06:43 08/10/16 06:43 - Constitutional Appears: No Acute Distress, Chronically Ill - Head Exam Head Exam: ATRAUMATIC, NORMAL INSPECTION - Eye Exam Eye Exam: EOMI, Normal appearance - Neck Exam Neck Exam: Normal Inspection. absent: Tenderness - Respiratory Exam Respiratory Exam: Decreased Breath Sounds, NORMAL BREATHING PATTERN - Cardiovascular Exam Cardiovascular Exam: REGULAR RHYTHM, +S1 - GI/Abdominal Exam GI & Abdominal Exam: Soft. absent: Tenderness - Extremities Exam Extremities Exam: Normal Inspection. absent: Tenderness - Neurological Exam Neurological Exam: Awake, CN II-XII Intact - Skin Skin Exam: Dry, Warm Assessment and Plan (1) CHF (congestive heart failure) Status: Acute (2) Diabetes mellitus Status: Acute (3) Secondary hyperparathyroidism Status: Acute (4) Hydropneumothorax Status: Acute - Assessment and Plan (Free Text) Plan: CT surgery evaluation Dialysis today with increased UF rate
--- NOTE | 2016-08-10 14:09 | CP.PCM.CON ---
History of Present Illness - History of Present Illness History of Present Illness: CT Surgery: Dr. Soto 75F w/ PMHx of DM, HTN, ESRD on dialysis (MWF), CAD, hypothyroidism, presented to the ED on 08/08 w/ hypoglycemia and altered mental status. Cardiothoracic surgery was consulted for recurrent right pleural effusion. On 08/09, patient underwent a right thoracentesis done by IR, and 1800ccs of fluid were drained. On 08/10, repeat CXR was done to f/u pleural effusion drainage, and CXR demonstrated a large loculated right sided hydropneumothorax w/ dense consolidative changes in the right mid and lower lung zones. Currently patient is on 3L O2 satting at 100%. Patient states she intermittently feels shortness of breath. At time of examination patient stated she had no difficulty breathing and denied chest pain. VSS. Spoke extensively about possible surgical interventions with patient's brother at bedside and patient's daughter over phone. Latest echo on medical record demonstrated patient's EF was 60-65%, however, after speaking with daughter she stated that patient had a recent echo done which demonstrated EF to be at 29%, will get repeat echo. After extensive conversation with patient's daughter, she stated she needed more time to research the surgical interventions being offered. Patient daughter states she does not want to pursue any high risk/ aggressive measures when it comes to surgical intervention. Patient's daughter is aware of the different surgical treatment options offered and is asking for some time before making a decision. PMHx: as stated above PSurgHx: CABG, AVF (left), stent placements x3 Allergies: Sulfa Review of Systems - Review of Systems Review of Systems: 12pt ROS carried out, unremarkable, except as stated in HPI Past Patient History - Infectious Disease Hx of Infectious Diseases: None - Past Medical History & Family History Past Medical History?: Yes - Past Social History Smoking Status: Never Smoked - CARDIAC Hx Cardiac Disorders: Yes Hx Congestive Heart Failure: Yes Hx Hypertension: Yes Hx Peripheral Edema: Yes - PULMONARY Hx Respiratory Disorders: Yes Other/Comment: hx of thoracentesis - NEUROLOGICAL Hx Neurological Disorder: Yes Other/Comment: ANIAK - HEENT Hx HEENT Problems: Yes Other/Comment: hard of hearing - RENAL Hx Chronic Kidney Disease: Yes Hx Dialysis: Yes Type of Dialysis Access: Hemodialysis Date of Last Dialysis Treatment: 08/05/16 - ENDOCRINE/METABOLIC Hx Hypothyroidism: Yes - HEMATOLOGICAL/ONCOLOGICAL Hx Blood Disorders: No - INTEGUMENTARY Hx Dermatological Problems: No - MUSCULOSKELETAL/RHEUMATOLOGICAL Hx Musculoskeletal Disorders: No Hx Falls: No - GASTROINTESTINAL Hx Gastrointestinal Disorders: No Hx Crohn's Disease: No Hx Diverticulitis: No - GENITOURINARY/GYNECOLOGICAL Hx Genitourinary Disorders: Yes Hx Incontinence: Yes Hx Urinary Tract Infection: Yes (2006) Other/Comment: ureteral stent placed 06/2015 - PSYCHIATRIC Hx Psychophysiologic Disorder: No Hx Substance Use: No - SURGICAL HISTORY Hx Surgeries: Yes Hx Coronary Artery Bypass Graft: Yes (2001) Hx Coronary Stent: Yes (x3 in 2006) - ANESTHESIA Hx Anesthesia: Yes Hx Anesthesia Reactions: No Hx Malignant Hyperthermia: No Has any member of the family had a problem w/ anesthesia?: No Meds Allergies/Adverse Reactions: Allergies Allergy/AdvReac Type Severity Reaction Status Date / Time Sulfa (Sulfonamide Allergy RASH Verified 05/27/16 10:31 Antibiotics) - Medications Medications: Current Medications Aspirin (Aspirin Chewable) 81 mg PO DAILY [facility] Last Admin: 08/10/16 09:04 Dose: 81 mg Bisoprolol Fumarate (Zebeta) 5 mg PO ACB [facility] Last Admin: 08/10/16 09:21 Dose: Not Given Calcium Acetate (Phoslo) 667 mg PO TIDCC [facility] Last Admin: 08/10/16 12:39 Dose: 667 mg Diphenhydramine HCl (Benadryl) 25 mg PO Q4H PRN PRN Reason: allergies Cefepime HCl (Maxipime Iv 1 Gm Premix) 50 mls @ 100 mls/hr IVPB DAILY [facility] Last Admin: 08/10/16 09:06 Dose: 100 mls/hr Levothyroxine Sodium (Synthroid) 75 mcg PO ACB [facility] Last Admin: 08/10/16 07:45 Dose: 75 mcg Pantoprazole Sodium (Protonix Ec Tab) 40 mg PO DAILY [facility] Last Admin: 08/10/16 09:21 Dose: Not Given Rosuvastatin Calcium (Crestor) 10 mg PO HS [facility] Last Admin: 08/09/16 22:21 Dose: 10 mg Physical Exam - Constitutional Appears: No Acute Distress - Head Exam Head Exam: NORMOCEPHALIC - Eye Exam Eye Exam: Normal appearance - ENT Exam ENT Exam: Mucous Membranes Moist - Respiratory Exam Respiratory Exam: Decreased Breath Sounds - Cardiovascular Exam Cardiovascular Exam: +S1, +S2 - GI/Abdominal Exam GI & Abdominal Exam: Soft - Extremities Exam Additional comments: ulcers - Neurological Exam Neurological exam: Alert - Psychiatric Exam Psychiatric exam: Normal Mood - Skin Skin Exam: Dry, Normal Color Results - Vital Signs Recent Vital Signs: Last Vital Signs Temp 97.8 F 08/10/16 12:00 Pulse 56 L 08/10/16 13:00 Resp 18 08/10/16 13:00 BP 118/101 H 08/10/16 13:00 Pulse Ox 100 08/10/16 13:00 - Labs Result Diagrams: 08/10/16 06:43 08/10/16 06:43 Labs: Laboratory Results - last 24 hr 08/09/16 08/09/16 08/10/16 16:31 21:21 06:43 WBC 7.3 RBC 3.10 L Hgb 10.4 L Hct 31.2 L MCV 100.8 H MCH 33.7 H MCHC 33.5 RDW 18.0 H Plt Count 97 L MPV 9.8 Neut % (Auto) 76.1 H Lymph % (Auto) 9.2 L [place] % (Auto) 10.5 H Eos % (Auto) 3.0 Baso % (Auto) 1.2 Neut # 5.6 Lymph # 0.7 L [place] # 0.8 Eos # 0.2 Baso # 0.1 Neutrophils % (Manual) 78 H Band Neutrophils % 1 Lymphocytes % (Manual) 8 L Monocytes % (Manual) 11 H Eosinophils % (Manual) 2 Platelet Estimate Decreased L Hypochromasia (manual) Slight Poikilocytosis (manual Slight Anisocytosis (manual) Slight Target Cells Slight Melia Cells Slight Sodium 135 Potassium 3.7 Chloride 95 L Carbon Dioxide 26 Anion Gap 18 BUN 32 H Creatinine 2.4 H Est GFR ( Amer) 24 Est GFR (Non-Af Amer) 20 POC Glucose (mg/dL) 89 210 H Random Glucose 100 Calcium 9.1 Phosphorus 3.8 Magnesium 2.1 Total Bilirubin 1.6 H AST 32 ALT 15 Alkaline Phosphatase 171 H Total Protein 7.4 Albumin 3.0 L Globulin 4.4 H Albumin/Globulin Ratio 0.7 L 08/10/16 08/10/16 07:36 11:35 WBC RBC Hgb Hct MCV MCH MCHC RDW Plt Count MPV Neut % (Auto) Lymph % (Auto) [place] % (Auto) Eos % (Auto) Baso % (Auto) Neut # Lymph # [place] # Eos # Baso # Neutrophils % (Manual) Band Neutrophils % Lymphocytes % (Manual) Monocytes % (Manual) Eosinophils % (Manual) Platelet Estimate Hypochromasia (manual) Poikilocytosis (manual Anisocytosis (manual) Target Cells [place] Cells Sodium Potassium Chloride Carbon Dioxide Anion Gap BUN Creatinine Est GFR ( Amer) Est GFR (Non-Af Amer) POC Glucose (mg/dL) 104 192 H Random Glucose Calcium Phosphorus Magnesium Total Bilirubin AST ALT Alkaline Phosphatase Total Protein Albumin Globulin Albumin/Globulin Ratio Assessment & Plan - Assessment and Plan (Free Text) Assessment: 75F w/ hydropneumothorax s/p pleural effusion drainage -Surgical interventions explained at length to patient and patient's family members -VATS w/ Talc pleurodesis vs chest tube vs Pleur-X catheter -Family wants to further discuss options -Family to discuss surgical and non-surgical options w/ family Dr. Bliss -D/w Dr. Soto
--- NOTE | 2016-08-10 23:55 | CP.PCM.PN ---
Subjective - Date & Time of Evaluation Date of Evaluation: 08/10/16 Time of Evaluation: 23:55 - Subjective Subjective: if patient had a thoracentesis yesterday. postthoracentesis x-ray, CAT scan showing evidence of hydropneumothorax. cardiothoracic surgeryon consultation. Spoke to the patient's family in details about the condition, aggressive treatment patient is reluctant and family is reluctant given the high morbidity. most likely patient may benefit by chest tube bradycardia Continue the current management. Objective - Vital Signs/Intake and Output Vital Signs (last 24 hours): Temp Pulse Resp BP Pulse Ox 97.2 F L 60 16 104/39 L 100 08/10/16 21:00 08/10/16 23:00 08/10/16 23:00 08/10/16 23:00 08/10/16 23:00 Intake and Output: 08/10/16 08/11/16 18:59 06:59 Intake Total 325 50 Output Total 0 0 Balance 325 50 chest good air entry, regular heart sound, nontender abdomen. Extremities edema noted - Medications Medications: Current Medications Aspirin (Aspirin Chewable) 81 mg PO DAILY [facility] Last Admin: 08/10/16 09:04 Dose: 81 mg Bisoprolol Fumarate (Zebeta) 5 mg PO ACB [facility] Last Admin: 08/10/16 09:21 Dose: Not Given Calcium Acetate (Phoslo) 667 mg PO TIDCC [facility] Last Admin: 08/10/16 17:44 Dose: Not Given Diphenhydramine HCl (Benadryl) 25 mg PO Q4H PRN PRN Reason: allergies Cefepime HCl (Maxipime Iv 1 Gm Premix) 50 mls @ 100 mls/hr IVPB DAILY [facility] Last Admin: 08/10/16 09:06 Dose: 100 mls/hr Levothyroxine Sodium (Synthroid) 75 mcg PO ACB [facility] Last Admin: 08/10/16 07:45 Dose: 75 mcg Pantoprazole Sodium (Protonix Ec Tab) 40 mg PO DAILY [facility] Last Admin: 08/10/16 09:21 Dose: Not Given Rosuvastatin Calcium (Crestor) 10 mg PO HS [facility] Last Admin: 08/10/16 23:00 Dose: 10 mg - Labs Labs: 08/10/16 06:43 08/10/16 06:43 Assessment and Plan (1) ESRD (end stage renal disease) on dialysis Status: Acute (2) Hypothermia Status: Acute (3) Pleural effusion Assessment & Plan: patient with large right pleural effusion, status post thoracentesis complicated with hydropneumothorax. for possible chest tube Severe bradycardia closely monitor and will follow the patient Status: Acute (4) S/P thoracentesis Status: Acute
[2016-08-11 06:39] LABS: BASO # 0.1 K/uL (0.0-0.2); EOS # 0.2 K/uL (0.0-0.7); EOS % 2.4 % (0.0-4.0); HEMATOCRIT 29.3 % (34.0-47.0); LYMPH # 0.7 K/uL (1.0-4.3); LYMPH % 8.2 % (20.0-40.0); MEAN CELL VOLUME 101.1 fL (81.0-99.0); MEAN CORPUSCULAR HEMOGLOBIN 33.2 pg (27.0-31.0); MEAN CORPUSCULAR HGB CONC 32.8 g/dL (33.0-37.0); MEAN PLATELET VOLUME 10.2 fL (7.2-11.7); MONO # 0.9 K/uL (0.0-0.8); NRBC % 0.2 % (0.0-2.0); PLATELET COUNT 74 K/uL (130-400); RED CELL DISTRIBUTION WIDTH 18.4 % (11.5-14.5); WHITE BLOOD COUNT 8.4 K/uL (4.8-10.8)
[2016-08-11 06:49] LABS: BILIRUBIN,TOTAL 1.8 mg/dL (0.2-1.3)
[2016-08-11 06:50] LABS: ALB/GLOB RATIO 0.7 (1.0-2.1); CALCIUM 8.7 mg/dl (8.6-10.4); MAGNESIUM 2.1 mg/dL (1.6-2.3); PHOSPHOROUS 3.3 mg/dL (2.5-4.5); TOTAL PROTEIN 7.5 g/dL (6.3-8.3)
[2016-08-11] MEDS: Levothyroxine 75 MCG TAB PO SCH (08:28)
--- NOTE | 2016-08-11 08:31 | CARD ---
APPROVED REPORT EKG Measurement Heart [id number] <Conclusion> Sinus bradycardia Nonspecific T wave abnormality Abnormal ECG
[2016-08-11 08:50] LABS: EOSINOPHIL 2 % (0-4); NEUTROPHIL 79 % (50-75); TOTAL CELLS COUNTED 100
[2016-08-11] MEDS: Cefepime IV 1 gm in Dextrose 50 ML IVPB SCH (09:34)
[2016-08-11] MEDS: Pantoprazole 40 mg EC Tab PO SCH (09:34)
--- NOTE | 2016-08-11 10:08 | CP.PCM.PN ---
Subjective - Date & Time of Evaluation Date of Evaluation: 08/11/16 Time of Evaluation: 10:06 - Subjective Subjective: Stable dialysis 08/10- UF 2500ml- tolerated despite low BP Seen by surgery- VATS being considered for increasing pleural effusions Alert, BP usually low- zebeta on hold No other new complaints Objective - Vital Signs/Intake and Output Vital Signs (last 24 hours): Temp Pulse Resp BP Pulse Ox 97.6 F 61 15 130/74 97 08/11/16 04:00 08/11/16 06:00 08/11/16 06:00 08/11/16 06:00 08/11/16 06:00 Intake and Output: 08/11/16 08/11/16 06:59 18:59 Intake Total 200 0 Output Total 0 Balance 200 0 - Medications Medications: Current Medications Aspirin (Aspirin Chewable) 81 mg PO DAILY [facility] Last Admin: 08/11/16 09:34 Dose: 81 mg Bisoprolol Fumarate (Zebeta) 5 mg PO ACB [facility] Last Admin: 08/11/16 09:33 Dose: Not Given Calcium Acetate (Phoslo) 667 mg PO TIDCC [facility] Last Admin: 08/11/16 08:28 Dose: 667 mg Diphenhydramine HCl (Benadryl) 25 mg PO Q4H PRN PRN Reason: allergies Cefepime HCl (Maxipime Iv 1 Gm Premix) 50 mls @ 100 mls/hr IVPB DAILY [facility] Last Admin: 08/11/16 09:34 Dose: 100 mls/hr Levothyroxine Sodium (Synthroid) 75 mcg PO ACB [facility] Last Admin: 08/11/16 08:28 Dose: 75 mcg Pantoprazole Sodium (Protonix Ec Tab) 40 mg PO DAILY [facility] Last Admin: 08/11/16 09:34 Dose: 40 mg Rosuvastatin Calcium (Crestor) 10 mg PO HS [facility] Last Admin: 08/10/16 23:00 Dose: 10 mg - Labs Labs: 08/11/16 06:30 08/11/16 06:30 - Constitutional Appears: No Acute Distress, Chronically Ill - Head Exam Head Exam: ATRAUMATIC, NORMAL INSPECTION - Eye Exam Eye Exam: EOMI, Normal appearance - Neck Exam Neck Exam: Normal Inspection. absent: Tenderness - Respiratory Exam Respiratory Exam: Clear to Ausculation Bilateral, NORMAL BREATHING PATTERN - Cardiovascular Exam Cardiovascular Exam: REGULAR RHYTHM, +S1 - GI/Abdominal Exam GI & Abdominal Exam: Soft. absent: Tenderness - Extremities Exam Extremities Exam: Normal Inspection. absent: Tenderness - Neurological Exam Neurological Exam: Alert, CN II-XII Intact - Skin Skin Exam: Dry, Warm Assessment and Plan (1) CHF (congestive heart failure) Status: Acute (2) Diabetes mellitus Status: Acute (3) Secondary hyperparathyroidism Status: Acute (4) Hydropneumothorax Status: Acute (5) ESRD (end stage renal disease) on dialysis Status: Acute - Assessment and Plan (Free Text) Plan: Continue dialysis MWF UF 2500ml as tolerated Considering VATS with talc pleuradesis
--- NOTE | 2016-08-11 10:10 | RAD ---
HISTORY: right sided hydro pneumothorax COMPARISON: Chest x-ray performed 08/10/16 TECHNIQUE: Chest, one view. FINDINGS: LUNGS: Large loculated right sided hydropneumothorax. Dense consolidative changes in the right mid and lower lung zones. Mild patchy left basilar airspace opacity. Please note that chest x-ray has limited sensitivity for the detection of pulmonary masses. CARDIOVASCULAR: Median sternotomy wires with evidence of CABG. Partially obscured cardiomegaly. Dense atherosclerotic calcification of the aorta. Left axillary vascular stent. OSSEOUS STRUCTURES: Degenerative changes. Deformity of the right proximal humerus. VISUALIZED UPPER ABDOMEN: Unremarkable. OTHER FINDINGS: None. IMPRESSION: No significant interval change. Large loculated right sided hydropneumothorax. Dense consolidative changes in the right mid and lower lung zones. Mild patchy left basilar airspace opacity.
--- NOTE | 2016-08-11 10:30 | CP.CCUPN ---
Addendum entered and electronically signed by Heather Meza DO 08/11/16 16:07 : Synthroid adjusted to 150mcg PO daily Addendum entered and electronically signed by Heather Meza DO 08/11/16 13:56 : Plan is for Cardio Thoracic to insert Pleurex catheter tomorrow for future recurrent effusion, and a chest tube for hydropneumothorax under local plus iv sedation. Risks, benefits, alternatives, including possibility of discussed with the pt and her brother who accepted surgery without reservation. ASA was held. Coags will be drawn in the AM. TSH: 67.60, free T4: 0.77 - will need to adjust synthroid Addendum entered and electronically signed by Heather Meza DO 08/11/16 10:44 : F/U: TSH, free T3, free T4 Original Note: <Heather Meza - Last Filed: 08/11/16 10:34> CCU Subjective - Physician Review Subjective (Free Text): Patient was seen and examined at bedside. Patient is breathing well. No acute events overnight or acute complaints from patient. ESRD on HD MWF schedule. Patient received dialysis yesterday 2.5L was removed. Patient is currently on 2L NC satting at 97%. Waiting for Dr. Bliss to speak with family and to decide on what intervention will be done for the hydropneumothorax. Family does not want any invasive intervention. CCU Objective - Vital Signs / Intake & Output Intake and Output (Last 8hrs): Intake & Output 08/10/16 08/11/16 08/11/16 22:59 06:59 14:59 Intake Total 0 200 0 Output Total 0 0 Balance 0 200 0 Weight 108 lb 14.4 oz Intake: Intake, IV Amount 0 0 0 Right Antecubital 0 0 0 Right Hand 0 0 0 Oral 0 200 Other 0 0 Output: Urine 0 0 Urine, Voided 0 0 Stool 0 0 - Physical Exam Head: Positive for: Atraumatic, Normocephalic Extroacular Muscles: Positive for: EOMI Conjunctiva: Positive for: Normal Mouth: Positive for: Dry Neck: Positive for: Normal Range of Motion Respiratory/Chest: Positive for: Decreased Breath Sounds Cardiovascular: Positive for: Bradycardic Abdomen: Positive for: Normal Bowel Sounds. Negative for: Tenderness, Distention Upper Extremity: Positive for: Normal Inspection Lower Extremity: Positive for: Normal Inspection, Edema, NORMAL PULSES. Negative for: CALF TENDERNESS Neurological: Positive for: GCS=15, CN II-XII Intact Skin: Positive for: Warm, Dry Psychiatric: Positive for: Alert - Medications Active Medications: Active Medications Generic Name Dose Route Start Last Admin Trade Name Freq PRN Reason Stop Dose Admin Aspirin 81 mg 08/09/16 10:00 08/11/16 09:34 Aspirin Chewable PO 81 mg DAILY REKHA Administration Bisoprolol Fumarate 5 mg 08/09/16 07:30 08/11/16 09:33 Zebeta PO Not Given ACB REKHA Calcium Acetate 667 mg 08/08/16 17:00 08/11/16 08:28 Phoslo PO 667 mg TIDCC REKHA Administration Diphenhydramine HCl 25 mg 08/08/16 16:53 Benadryl PO Q4H PRN allergies Cefepime HCl 50 mls @ 100 mls/hr 08/10/16 10:00 08/11/16 09:34 Maxipime Iv 1 Gm Premix IVPB 100 mls/hr DAILY REKHA Administration Levothyroxine Sodium 75 mcg 08/09/16 07:30 08/11/16 08:28 Synthroid PO 75 mcg ACB REKHA Administration Pantoprazole Sodium 40 mg 08/10/16 10:00 08/11/16 09:34 Protonix Ec Tab PO 40 mg DAILY REKHA Administration Rosuvastatin Calcium 10 mg 08/09/16 22:00 08/10/16 23:00 Crestor PO 10 mg HS REKHA Administration - Patient Studies Lab Studies: Microbiology Studies 08/08/16 Unknown Urine Culture - Final Urine Yeast Species 08/09/16 11:05 Urine Culture - Final Urine,Catheterized No Growth (<1,000 CFU/ML) Lab Studies 08/11/16 08/11/16 08/10/16 Range/Units 07:22 06:30 21:06 WBC 8.4 (4.8-10.8) K/uL RBC 2.90 L (3.80-5.20) Mil/uL Hgb 9.6 L (11.0-16.0) g/dL Hct 29.3 L (34.0-47.0) % MCV 101.1 H (81.0-99.0) fL MCH 33.2 H (27.0-31.0) pg MCHC 32.8 L (33.0-37.0) g/dL RDW 18.4 H (11.5-14.5) % Plt Count 74 L D (130-400) K/uL MPV 10.2 (7.2-11.7) fL Neut % (Auto) 77.4 H (50.0-75.0) % Lymph % (Auto) 8.2 L (20.0-40.0) % [place] % (Auto) 11.0 H (0.0-10.0) % Eos % (Auto) 2.4 (0.0-4.0) % Baso % (Auto) 1.0 (0.0-2.0) % Neut # 6.5 (1.8-7.0) K/uL Lymph # 0.7 L (1.0-4.3) K/uL [place] # 0.9 H (0.0-0.8) K/uL Eos # 0.2 (0.0-0.7) K/uL Baso # 0.1 (0.0-0.2) K/uL Neutrophils % (Manual) 79 H (50-75) % Band Neutrophils % 1 (0-2) % Lymphocytes % (Manual) 9 L (20-40) % Monocytes % (Manual) 9 (0-10) % Eosinophils % (Manual) 2 (0-4) % Toxic Granulation Present Platelet Estimate Decreased L (NORMAL) Hypochromasia (manual) Slight Poikilocytosis (manual Slight Anisocytosis (manual) Slight Microcytosis (manual) Slight Macrocytosis (manual) Slight Jay Cells Slight Sodium 136 (132-148) mmol/L Potassium 4.0 (3.6-5.2) mmol/L Chloride 97 L (98-107) mmol/L Carbon Dioxide 26 (22-30) mmol/L Anion Gap 17 (10-20) BUN 24 H (7-17) mg/dL Creatinine 1.8 H (0.7-1.2) MG/DL Est GFR ( Amer) 33 Est GFR (Non-Af Amer) 28 POC Glucose (mg/dL) 194 H 151 H (65-110) mg/dL Random Glucose 137 H (65-105) mg/dL Calcium 8.7 (8.6-10.4) mg/dl Phosphorus 3.3 (2.5-4.5) mg/dL Magnesium 2.1 (1.6-2.3) mg/dL Total Bilirubin 1.8 H (0.2-1.3) mg/dL AST 39 H D (14-36) U/L ALT 17 (9-52) U/L Alkaline Phosphatase 186 H (38-126) U/L Total Protein 7.5 (6.3-8.3) g/dL Albumin 3.1 L (3.5-5.0) g/dL Globulin 4.5 H (2.2-3.9) gm/dL Albumin/Globulin Ratio 0.7 L (1.0-2.1) 08/10/16 08/10/16 Range/Units 16:05 11:35 WBC (4.8-10.8) K/uL RBC (3.80-5.20) Mil/uL Hgb (11.0-16.0) g/dL Hct (34.0-47.0) % MCV (81.0-99.0) fL MCH (27.0-31.0) pg MCHC (33.0-37.0) g/dL RDW (11.5-14.5) % Plt Count (130-400) K/uL MPV (7.2-11.7) fL Neut % (Auto) (50.0-75.0) % Lymph % (Auto) (20.0-40.0) % [place] % (Auto) (0.0-10.0) % Eos % (Auto) (0.0-4.0) % Baso % (Auto) (0.0-2.0) % Neut # (1.8-7.0) K/uL Lymph # (1.0-4.3) K/uL [place] # (0.0-0.8) K/uL Eos # (0.0-0.7) K/uL Baso # (0.0-0.2) K/uL Neutrophils % (Manual) (50-75) % Band Neutrophils % (0-2) % Lymphocytes % (Manual) (20-40) % Monocytes % (Manual) (0-10) % Eosinophils % (Manual) (0-4) % Toxic Granulation Platelet Estimate (NORMAL) Hypochromasia (manual) Poikilocytosis (manual Anisocytosis (manual) Microcytosis (manual) Macrocytosis (manual) Jay Cells Sodium (132-148) mmol/L Potassium (3.6-5.2) mmol/L Chloride (98-107) mmol/L Carbon Dioxide (22-30) mmol/L Anion Gap (10-20) BUN (7-17) mg/dL Creatinine (0.7-1.2) MG/DL Est GFR ( Amer) Est GFR (Non-Af Amer) POC Glucose (mg/dL) 207 H 192 H (65-110) mg/dL Random Glucose (65-105) mg/dL Calcium (8.6-10.4) mg/dl Phosphorus (2.5-4.5) mg/dL Magnesium (1.6-2.3) mg/dL Total Bilirubin (0.2-1.3) mg/dL AST (14-36) U/L ALT (9-52) U/L Alkaline Phosphatase (38-126) U/L Total Protein (6.3-8.3) g/dL Albumin (3.5-5.0) g/dL Globulin (2.2-3.9) gm/dL Albumin/Globulin Ratio (1.0-2.1) Laboratory Results - last 24 hr 08/10/16 08/10/16 08/10/16 11:35 16:05 21:06 WBC RBC Hgb Hct MCV MCH MCHC RDW Plt Count MPV Neut % (Auto) Lymph % (Auto) [place] % (Auto) Eos % (Auto) Baso % (Auto) Neut # Lymph # [place] # Eos # Baso # Neutrophils % (Manual) Band Neutrophils % Lymphocytes % (Manual) Monocytes % (Manual) Eosinophils % (Manual) Toxic Granulation Platelet Estimate Hypochromasia (manual) Poikilocytosis (manual Anisocytosis (manual) Microcytosis (manual) Macrocytosis (manual) Jay Cells Sodium Potassium Chloride Carbon Dioxide Anion Gap BUN Creatinine Est GFR ( Amer) Est GFR (Non-Af Amer) POC Glucose (mg/dL) 192 H 207 H 151 H Random Glucose Calcium Phosphorus Magnesium Total Bilirubin AST ALT Alkaline Phosphatase Total Protein Albumin Globulin Albumin/Globulin Ratio 08/11/16 08/11/16 06:30 07:22 WBC 8.4 RBC 2.90 L Hgb 9.6 L Hct 29.3 L MCV 101.1 H MCH 33.2 H MCHC 32.8 L RDW 18.4 H Plt Count 74 L D MPV 10.2 Neut % (Auto) 77.4 H Lymph % (Auto) 8.2 L [place] % (Auto) 11.0 H Eos % (Auto) 2.4 Baso % (Auto) 1.0 Neut # 6.5 Lymph # 0.7 L [place] # 0.9 H Eos # 0.2 Baso # 0.1 Neutrophils % (Manual) 79 H Band Neutrophils % 1 Lymphocytes % (Manual) 9 L Monocytes % (Manual) 9 Eosinophils % (Manual) 2 Toxic Granulation Present Platelet Estimate Decreased L Hypochromasia (manual) Slight Poikilocytosis (manual Slight Anisocytosis (manual) Slight Microcytosis (manual) Slight Macrocytosis (manual) Slight Melia Cells Slight Sodium 136 Potassium 4.0 Chloride 97 L Carbon Dioxide 26 Anion Gap 17 BUN 24 H Creatinine 1.8 H Est GFR ( Amer) 33 Est GFR (Non-Af Amer) 28 POC Glucose (mg/dL) 194 H Random Glucose 137 H Calcium 8.7 Phosphorus 3.3 Magnesium 2.1 Total Bilirubin 1.8 H AST 39 H D ALT 17 Alkaline Phosphatase 186 H Total Protein 7.5 Albumin 3.1 L Globulin 4.5 H Albumin/Globulin Ratio 0.7 L Fingerstick Blood Sugar Results: 207 Critical Care Progress Note - Nutrition Nutrition: Nutrition Category Date Time Status Heart Healthy Diet [DIET] Diets 08/08/16 Breakfast Active Assessment/Plan - Assessment and Plan (Free Text) Assessment: 75 year old female with ESRD currently on dialysis MWF presented with CHF, in need of dialysis with recurrent right sided pleural effusion. Plan: Neuro: Upon admission patient was mild AMS, currently more oriented. Was hypothermic, normal temperature now. CV: -CHF - Lasix 40mg PO daily -Hx CAD: ASA, Crestor -HTN - Continue Zebeta Pulm: -Right sided recurrent pleural effusions - Dr. Walker consulted for thoracentesis - help appreciated - 1800mL was removed. -This morning CXR showed increased fluid. Ordered CT Chest- revealed right sided hydropneumothorax. Patient is comfortable , in no respiratory distress, 98% on 2L NC. CT was consulted - Dr. Soto -VATS w/ Talc pleurodesis vs chest tube vs Pleur-X catheter. Family wants to further discuss options. Family to discuss surgical and non-surgical options w/ family and Dr. Bliss Renal: -ESRD on HD MWF -Continued Phoslo and Dr. Mcfarland - help appreciated Patient underwent dialysis on Monday and had 2.2 L removed. As per Dr. Mcfarland, he will increase ultrafiltration on next dialysis. Endo: - DM: Upon admission patient was hypoglycemic - Hypothyroidism: Synthroid 75 mcg PO ACB ID: Afebrile, no white count Initial UA showed UTI- Cefepime Q12H No growth on urine or blood cultures Left foot ulcer - f/u wound care Prophylaxis: GI: Protonix 40mg IVP daily DVT: SCDs, VTE contraindicated due to thrombocytopenia Heart Healthy Diet DW Dr. Scales, Derrick BAHENA, PGY-1 <Tavares Ellis M - Last Filed: 08/11/16 18:01> CCU Objective - Vital Signs / Intake & Output Intake and Output (Last 8hrs): Intake & Output 08/11/16 08/11/16 08/11/16 06:59 14:59 22:59 Intake Total 200 200 Output Total 0 0 Balance 200 200 Weight 108 lb 14.4 oz Intake: Intake, IV Amount 0 0 Right Antecubital 0 0 Right Hand 0 0 Oral 200 200 Other 0 Output: Urine 0 0 Urine, Voided 0 0 Stool 0 Other: # Bowel Movements 1 - Medications Active Medications: Active Medications Generic Name Dose Route Start Last Admin Trade Name Freq PRN Reason Stop Dose Admin Aspirin 81 mg 08/09/16 10:00 08/11/16 09:34 Aspirin Chewable PO 81 mg DAILY REKHA Administration Bisoprolol Fumarate 5 mg 08/09/16 07:30 08/11/16 09:33 Zebeta PO Not Given ACB REKHA Calcium Acetate 667 mg 08/08/16 17:00 08/11/16 17:32 Phoslo PO 667 mg TIDCC REKHA Administration Diphenhydramine HCl 25 mg 08/08/16 16:53 Benadryl PO Q4H PRN allergies Cefepime HCl 50 mls @ 100 mls/hr 08/10/16 10:00 08/11/16 09:34 Maxipime Iv 1 Gm Premix IVPB 100 mls/hr DAILY REKHA Administration Levothyroxine Sodium 150 mcg 08/12/16 06:30 Synthroid PO DAILY@0630 REKHA Pantoprazole Sodium 40 mg 08/10/16 10:00 08/11/16 09:34 Protonix Ec Tab PO 40 mg DAILY REKHA Administration Rosuvastatin Calcium 10 mg 08/09/16 22:00 08/10/16 23:00 Crestor PO 10 mg HS REKHA Administration - Patient Studies Lab Studies: Lab Studies 08/11/16 08/11/16 08/11/16 Range/Units 16:28 12:14 10:46 WBC (4.8-10.8) K/uL RBC (3.80-5.20) Mil/uL Hgb (11.0-16.0) g/dL Hct (34.0-47.0) % MCV (81.0-99.0) fL MCH (27.0-31.0) pg MCHC (33.0-37.0) g/dL RDW (11.5-14.5) % Plt Count (130-400) K/uL MPV (7.2-11.7) fL Neut % (Auto) (50.0-75.0) % Lymph % (Auto) (20.0-40.0) % [place] % (Auto) (0.0-10.0) % Eos % (Auto) (0.0-4.0) % Baso % (Auto) (0.0-2.0) % Neut # (1.8-7.0) K/uL Lymph # (1.0-4.3) K/uL [place] # (0.0-0.8) K/uL Eos # (0.0-0.7) K/uL Baso # (0.0-0.2) K/uL Neutrophils % (Manual) (50-75) % Band Neutrophils % (0-2) % Lymphocytes % (Manual) (20-40) % Monocytes % (Manual) (0-10) % Eosinophils % (Manual) (0-4) % Toxic Granulation Platelet Estimate (NORMAL) Hypochromasia (manual) Poikilocytosis (manual Anisocytosis (manual) Microcytosis (manual) Macrocytosis (manual) Jay Cells Sodium (132-148) mmol/L Potassium (3.6-5.2) mmol/L Chloride (98-107) mmol/L Carbon Dioxide (22-30) mmol/L Anion Gap (10-20) BUN (7-17) mg/dL Creatinine (0.7-1.2) MG/DL Est GFR ( Amer) Est GFR (Non-Af Amer) POC Glucose (mg/dL) 218 H 202 H (65-110) mg/dL Random Glucose (65-105) mg/dL Calcium (8.6-10.4) mg/dl Phosphorus (2.5-4.5) mg/dL Magnesium (1.6-2.3) mg/dL Total Bilirubin (0.2-1.3) mg/dL AST (14-36) U/L ALT (9-52) U/L Alkaline Phosphatase (38-126) U/L Total Protein (6.3-8.3) g/dL Albumin (3.5-5.0) g/dL Globulin (2.2-3.9) gm/dL Albumin/Globulin Ratio (1.0-2.1) Free T4 0.77 L (0.78-2.19) ng/dL TSH 3rd Generation (0.46-4.68) mIU/L 08/11/16 08/11/16 08/10/16 Range/Units 07:22 06:30 21:06 WBC 8.4 (4.8-10.8) K/uL RBC 2.90 L (3.80-5.20) Mil/uL Hgb 9.6 L (11.0-16.0) g/dL Hct 29.3 L (34.0-47.0) % MCV 101.1 H (81.0-99.0) fL MCH 33.2 H (27.0-31.0) pg MCHC 32.8 L (33.0-37.0) g/dL RDW 18.4 H (11.5-14.5) % Plt Count 74 L D (130-400) K/uL MPV 10.2 (7.2-11.7) fL Neut % (Auto) 77.4 H (50.0-75.0) % Lymph % (Auto) 8.2 L (20.0-40.0) % [place] % (Auto) 11.0 H (0.0-10.0) % Eos % (Auto) 2.4 (0.0-4.0) % Baso % (Auto) 1.0 (0.0-2.0) % Neut # 6.5 (1.8-7.0) K/uL Lymph # 0.7 L (1.0-4.3) K/uL [place] # 0.9 H (0.0-0.8) K/uL Eos # 0.2 (0.0-0.7) K/uL Baso # 0.1 (0.0-0.2) K/uL Neutrophils % (Manual) 79 H (50-75) % Band Neutrophils % 1 (0-2) % Lymphocytes % (Manual) 9 L (20-40) % Monocytes % (Manual) 9 (0-10) % Eosinophils % (Manual) 2 (0-4) % Toxic Granulation Present Platelet Estimate Decreased L (NORMAL) Hypochromasia (manual) Slight Poikilocytosis (manual Slight Anisocytosis (manual) Slight Microcytosis (manual) Slight Macrocytosis (manual) Slight Melia Cells Slight Sodium 136 (132-148) mmol/L Potassium 4.0 (3.6-5.2) mmol/L Chloride 97 L (98-107) mmol/L Carbon Dioxide 26 (22-30) mmol/L Anion Gap 17 (10-20) BUN 24 H (7-17) mg/dL Creatinine 1.8 H (0.7-1.2) MG/DL Est GFR ( Amer) 33 Est GFR (Non-Af Amer) 28 POC Glucose (mg/dL) 194 H 151 H (65-110) mg/dL Random Glucose 137 H (65-105) mg/dL Calcium 8.7 (8.6-10.4) mg/dl Phosphorus 3.3 (2.5-4.5) mg/dL Magnesium 2.1 (1.6-2.3) mg/dL Total Bilirubin 1.8 H (0.2-1.3) mg/dL AST 39 H D (14-36) U/L ALT 17 (9-52) U/L Alkaline Phosphatase 186 H (38-126) U/L Total Protein 7.5 (6.3-8.3) g/dL Albumin 3.1 L (3.5-5.0) g/dL Globulin 4.5 H (2.2-3.9) gm/dL Albumin/Globulin Ratio 0.7 L (1.0-2.1) Free T4 (0.78-2.19) ng/dL TSH 3rd Generation 67.60 H (0.46-4.68) mIU/L Laboratory Results - last 24 hr 08/10/16 08/11/16 08/11/16 21:06 06:30 07:22 WBC 8.4 RBC 2.90 L Hgb 9.6 L Hct 29.3 L MCV 101.1 H MCH 33.2 H MCHC 32.8 L RDW 18.4 H Plt Count 74 L D MPV 10.2 Neut % (Auto) 77.4 H Lymph % (Auto) 8.2 L [place] % (Auto) 11.0 H Eos % (Auto) 2.4 Baso % (Auto) 1.0 Neut # 6.5 Lymph # 0.7 L [place] # 0.9 H Eos # 0.2 Baso # 0.1 Neutrophils % (Manual) 79 H Band Neutrophils % 1 Lymphocytes % (Manual) 9 L Monocytes % (Manual) 9 Eosinophils % (Manual) 2 Toxic Granulation Present Platelet Estimate Decreased L Hypochromasia (manual) Slight Poikilocytosis (manual Slight Anisocytosis (manual) Slight Microcytosis (manual) Slight Macrocytosis (manual) Slight Jay Cells Slight Sodium 136 Potassium 4.0 Chloride 97 L Carbon Dioxide 26 Anion Gap 17 BUN 24 H Creatinine 1.8 H Est GFR ( Amer) 33 Est GFR (Non-Af Amer) 28 POC Glucose (mg/dL) 151 H 194 H Random Glucose 137 H Calcium 8.7 Phosphorus 3.3 Magnesium 2.1 Total Bilirubin 1.8 H AST 39 H D ALT 17 Alkaline Phosphatase 186 H Total Protein 7.5 Albumin 3.1 L Globulin 4.5 H Albumin/Globulin Ratio 0.7 L Free T4 TSH 3rd Generation 67.60 H 08/11/16 08/11/16 08/11/16 10:46 12:14 16:28 WBC RBC Hgb Hct MCV MCH MCHC RDW Plt Count MPV Neut % (Auto) Lymph % (Auto) [place] % (Auto) Eos % (Auto) Baso % (Auto) Neut # Lymph # [place] # Eos # Baso # Neutrophils % (Manual) Band Neutrophils % Lymphocytes % (Manual) Monocytes % (Manual) Eosinophils % (Manual) Toxic Granulation Platelet Estimate Hypochromasia (manual) Poikilocytosis (manual Anisocytosis (manual) Microcytosis (manual) Macrocytosis (manual) Melia Cells Sodium Potassium Chloride Carbon Dioxide Anion Gap BUN Creatinine Est GFR ( Amer) Est GFR (Non-Af Amer) POC Glucose (mg/dL) 202 H 218 H Random Glucose Calcium Phosphorus Magnesium Total Bilirubin AST ALT Alkaline Phosphatase Total Protein Albumin Globulin Albumin/Globulin Ratio Free T4 0.77 L TSH 3rd Generation Critical Care Progress Note - Nutrition Nutrition: Nutrition Category Date Time Status Heart Healthy Diet [DIET] Diets 08/08/16 Breakfast Active NPO Diet [DIET] Diets 08/12/16 Breakfast Active Attending/Attestation - Attestation I have personally seen and examined this patient.: Yes I have fully participated in the care of the patient.: Yes I have reviewed all pertinent clinical information: Yes Notes (Text): 08/11/16 18:00 Today: July The Patient was seen and examined at the bedside, Medical records reviewed, all clinical/lab/hemodynamic/radiographic data were reviewed and management issues were discussed and formulated, Events reviewed Pain issues, skin care, head of the bed elevation, glycemic control were addressed. Agree with above treatment plans as transcribed in Dr. Meza note
[2016-08-11] MEDS ORDERED: POLYETHYLENE GLYCOL 3350 17 GM/Dose PACKET PO ONE (10:48)
[2016-08-11 10:56] LABS: FT3 2.14 pg/mL (2.77-5.27)
[2016-08-11 11:10] LABS: THYROID STIMULATING HORMONE 67.6 mIU/L (0.46-4.68)
--- NOTE | 2016-08-11 13:13 | CP.PCM.CON ---
History of Present Illness - History of Present Illness History of Present Illness: Reason for consultation: Hydropneumothorax, right following IR thoracentesis. Requested by Dr. Beard. Pt s/e, progress notes, and imaging studies reviewed. This is a 75yo female, wit pmhx of htn, esrd on dialysi, cad(cabg), hypthyroidism, who presented to the ED on 08/08 with hpoglycemia and AMS. On 08/09 , she underwent thoracentesis by IR(dained out 1800cc serous effusion), following which her sob improved. f/u cxr: large loculated right hydropnumothorax, but currently only intermittenty sob. Thoracentesis by IR has been done almost monthly for recurrent effusions for quite sometime. I have discussed with the pt and her brother various options for her present clinical issues, and decided to insert Pleurex catheter tomorrow for future recurrent effusion, and a chest tube for hydropneumothorax under local plus iv sedation. Risks, benefits, alternatives, including possibility of discussed with the pt and her brother who accepted surgery without reservation. stop checo, preop pt/ptt. Past Patient History - Infectious Disease Hx of Infectious Diseases: None - Past Medical History & Family History Past Medical History?: Yes - Past Social History Smoking Status: Never Smoked - CARDIAC Hx Cardiac Disorders: Yes Hx Congestive Heart Failure: Yes Hx Hypertension: Yes Hx Peripheral Edema: Yes - PULMONARY Hx Respiratory Disorders: Yes Other/Comment: hx of thoracentesis - NEUROLOGICAL Hx Neurological Disorder: Yes Other/Comment: [id number] - HEENT Hx HEENT Problems: Yes Other/Comment: hard of hearing - RENAL Hx Chronic Kidney Disease: Yes Hx Dialysis: Yes Type of Dialysis Access: Hemodialysis Date of Last Dialysis Treatment: 08/05/16 - ENDOCRINE/METABOLIC Hx Hypothyroidism: Yes - HEMATOLOGICAL/ONCOLOGICAL Hx Blood Disorders: No - INTEGUMENTARY Hx Dermatological Problems: No - MUSCULOSKELETAL/RHEUMATOLOGICAL Hx Musculoskeletal Disorders: No Hx Falls: No - GASTROINTESTINAL Hx Gastrointestinal Disorders: No Hx Crohn's Disease: No Hx Diverticulitis: No - GENITOURINARY/GYNECOLOGICAL Hx Genitourinary Disorders: Yes Hx Incontinence: Yes Hx Urinary Tract Infection: Yes (2006) Other/Comment: ureteral stent placed 06/2015 - PSYCHIATRIC Hx Psychophysiologic Disorder: No Hx Substance Use: No - SURGICAL HISTORY Hx Surgeries: Yes Hx Coronary Artery Bypass Graft: Yes (2001) Hx Coronary Stent: Yes (x3 in 2006) - ANESTHESIA Hx Anesthesia: Yes Hx Anesthesia Reactions: No Hx Malignant Hyperthermia: No Has any member of the family had a problem w/ anesthesia?: No Meds Allergies/Adverse Reactions: Allergies Allergy/AdvReac Type Severity Reaction Status Date / Time Sulfa (Sulfonamide Allergy RASH Verified 05/27/16 10:31 Antibiotics) - Medications Medications: Current Medications Aspirin (Aspirin Chewable) 81 mg PO DAILY [facility] Last Admin: 08/11/16 09:34 Dose: 81 mg Bisoprolol Fumarate (Zebeta) 5 mg PO ACB [facility] Last Admin: 08/11/16 09:33 Dose: Not Given Calcium Acetate (Phoslo) 667 mg PO TIDCC [facility] Last Admin: 08/11/16 12:21 Dose: 667 mg Diphenhydramine HCl (Benadryl) 25 mg PO Q4H PRN PRN Reason: allergies Cefepime HCl (Maxipime Iv 1 Gm Premix) 50 mls @ 100 mls/hr IVPB DAILY [facility] Last Admin: 08/11/16 09:34 Dose: 100 mls/hr Levothyroxine Sodium (Synthroid) 75 mcg PO ACB [facility] Last Admin: 08/11/16 08:28 Dose: 75 mcg Pantoprazole Sodium (Protonix Ec Tab) 40 mg PO DAILY [facility] Last Admin: 08/11/16 09:34 Dose: 40 mg Rosuvastatin Calcium (Crestor) 10 mg PO HS [facility] Last Admin: 08/10/16 23:00 Dose: 10 mg Results - Vital Signs Recent Vital Signs: Last Vital Signs Temp 97.6 F 08/11/16 12:00 Pulse 54 L 08/11/16 10:00 Resp 18 08/11/16 10:00 BP 113/38 L 08/11/16 10:00 Pulse Ox 100 08/11/16 10:00 - Labs Result Diagrams: 08/11/16 06:30 08/11/16 06:30 Labs: Laboratory Results - last 24 hr 08/10/16 08/10/16 08/11/16 16:05 21:06 06:30 WBC 8.4 RBC 2.90 L Hgb 9.6 L Hct 29.3 L MCV 101.1 H MCH 33.2 H MCHC 32.8 L RDW 18.4 H Plt Count 74 L D MPV 10.2 Neut % (Auto) 77.4 H Lymph % (Auto) 8.2 L [place] % (Auto) 11.0 H Eos % (Auto) 2.4 Baso % (Auto) 1.0 Neut # 6.5 Lymph # 0.7 L [place] # 0.9 H Eos # 0.2 Baso # 0.1 Neutrophils % (Manual) 79 H Band Neutrophils % 1 Lymphocytes % (Manual) 9 L Monocytes % (Manual) 9 Eosinophils % (Manual) 2 Toxic Granulation Present Platelet Estimate Decreased L Hypochromasia (manual) Slight Poikilocytosis (manual Slight Anisocytosis (manual) Slight Microcytosis (manual) Slight Macrocytosis (manual) Slight [place] Cells Slight Sodium 136 Potassium 4.0 Chloride 97 L Carbon Dioxide 26 Anion Gap 17 BUN 24 H Creatinine 1.8 H Est GFR ( Amer) 33 Est GFR (Non-Af Amer) 28 POC Glucose (mg/dL) 207 H 151 H Random Glucose 137 H Calcium 8.7 Phosphorus 3.3 Magnesium 2.1 Total Bilirubin 1.8 H AST 39 H D ALT 17 Alkaline Phosphatase 186 H Total Protein 7.5 Albumin 3.1 L Globulin 4.5 H Albumin/Globulin Ratio 0.7 L Free T4 TSH 3rd Generation 67.60 H 08/11/16 08/11/16 08/11/16 07:22 10:46 12:14 WBC RBC Hgb Hct MCV MCH MCHC RDW Plt Count MPV Neut % (Auto) Lymph % (Auto) [place] % (Auto) Eos % (Auto) Baso % (Auto) Neut # Lymph # [place] # Eos # Baso # Neutrophils % (Manual) Band Neutrophils % Lymphocytes % (Manual) Monocytes % (Manual) Eosinophils % (Manual) Toxic Granulation Platelet Estimate Hypochromasia (manual) Poikilocytosis (manual Anisocytosis (manual) Microcytosis (manual) Macrocytosis (manual) [place] Cells Sodium Potassium Chloride Carbon Dioxide Anion Gap BUN Creatinine Est GFR ( Amer) Est GFR (Non-Af Amer) POC Glucose (mg/dL) 194 H 202 H Random Glucose Calcium Phosphorus Magnesium Total Bilirubin AST ALT Alkaline Phosphatase Total Protein Albumin Globulin Albumin/Globulin Ratio Free T4 0.77 L TSH 3rd Generation
--- NOTE | 2016-08-11 14:27 | CARD ---
APPROVED REPORT EXAM: Two-dimensional and M-mode echocardiogram with Doppler and color Doppler. Other Information Quality : GoodRhythm : Bradycardia INDICATION Congestive Heart Failure CKD, ESRD, EJECTION FRACTION, HYPOGLYCEMIA, UTI RISK FACTORS Diabetes M-Mode DIMENSIONS RVDd3.26 (2.1-3.2cm)Left Atrium (MM)4.48 (2.5-4.0cm) IVSd0.83 (0.7-1.1cm)Aortic Root2.39 (2.2-3.7cm) LVDd4.96 (4.0-5.6cm)Aortic Cusp Exc.1.77 (1.5-2.0cm) PWd1.01 (0.7-1.1cm)FS (%) 38 % LVDs3.05 (2.0-3.8cm)LVEF (%)69 (>50%) Mitral Valve MV E Qdlayekt229.3cm/sMV A Otipyfag25.7cm/sE/A ratio1.2 TDI E/Lateral E'0.0E/Medial E'0.0 Tricuspid Valve TR Peak [id number]/sTR Peak [id number] LEFT VENTRICLE The Left Ventricle is borderline dilated. There is normal left ventricular wall thickness. The left ventricular Systolic function is normal. The left ventricular ejection fraction is within the normal range. There is normal LV segmental wall motion. Elevated left atrial pressure. Probable Grade II-pseudonormal filling dynamics. Valsalva not performed. RIGHT VENTRICLE The right ventricle is moderately dilated. Systolic function is moderately reduced. ATRIA The left atrium is moderately dilated. The right atrium is moderately dilated. AORTIC VALVE The aortic valve is normal in structure. No aortic regurgitation is present. MITRAL VALVE The mitral valve is normal in structure. Mitral regurgitation is mild. TRICUSPID VALVE The tricuspid valve is normal in structure. There is moderate tricuspid regurgitation. Right ventricular systolic pressure is estimated at greater than 60 mmHg. There is severe pulmonary hypertension. PULMONIC VALVE The pulmonary valve is normal in structure. There is mild pulmonic valvular regurgitation. GREAT VESSELS The aortic root is normal in size. The IVC is normal in size and collapses >50% with inspiration. PERICARDIAL EFFUSION There is no pericardial effusion. <Conclusion> The left ventricular systolic function is normal. Moderate diastolic dysfunction. Elevated left atrial pressure. Probable Grade II-pseudonormal filling dynamics. Valsalva not performed. The right ventricle is moderately dilated. Systolic function is moderately reduced. Moderately dilated atrial chambers. Mild mitral regurgitation. There is moderate tricuspid regurgitation. Severe pulmonary hypertension. Right ventricular systolic pressure is estimated at greater than 60 mmHg. There is no pericardial effusion.
[2016-08-11] MEDS ORDERED: Levothyroxine 75 MCG TAB PO ONE (16:15)
[2016-08-12 06:12] LABS: BASO # 0.1 K/uL (0.0-0.2); BASO % 0.5 % (0.0-2.0); EOS # 0.2 K/uL (0.0-0.7); EOS % 2.1 % (0.0-4.0); HEMATOCRIT 22.6 % (34.0-47.0); LYMPH # 0.8 K/uL (1.0-4.3); MEAN CELL VOLUME 100.9 fL (81.0-99.0); MEAN CORPUSCULAR HEMOGLOBIN 33.7 pg (27.0-31.0); MEAN CORPUSCULAR HGB CONC 33.4 g/dL (33.0-37.0); MONO # 1.1 K/uL (0.0-0.8); MONO % 10.2 % (0.0-10.0); NRBC % 0.3 % (0.0-2.0); PLATELET COUNT 90 K/uL (130-400); RED CELL DISTRIBUTION WIDTH 18.7 % (11.5-14.5); WHITE BLOOD COUNT 11.1 K/uL (4.8-10.8)
[2016-08-12 06:15] LABS: INR 1.3
[2016-08-12] MEDS ORDERED: Levothyroxine 150 MCG TAB PO SCH (06:30)
[2016-08-12 06:34] LABS: POTASSIUM 4.1 mmol/L (3.6-5.2)
[2016-08-12 06:35] LABS: ALB/GLOB RATIO 0.7 (1.0-2.1); BILIRUBIN,TOTAL 1.7 mg/dL (0.2-1.3); TOTAL PROTEIN 7.2 g/dL (6.3-8.3)
[2016-08-12 06:36] LABS: CALCIUM 9.2 mg/dl (8.6-10.4); MAGNESIUM 2.2 mg/dL (1.6-2.3); PHOSPHOROUS 3.9 mg/dL (2.5-4.5)
--- NOTE | 2016-08-12 08:20 | CP.PCM.PN ---
Subjective - Date & Time of Evaluation Date of Evaluation: 08/12/16 Time of Evaluation: 08:17 - Subjective Subjective: For chest tube today Hg has dropped- etiology unclear BP remains low- off zebeta Awake, alert, in NAD No dyspnea, CPs, n,v, fevers, chills, diarrhea Objective - Vital Signs/Intake and Output Vital Signs (last 24 hours): Temp Pulse Resp BP Pulse Ox 97.2 F L 56 L 15 103/36 L 98 08/12/16 04:00 08/12/16 06:00 08/12/16 06:00 08/12/16 06:00 08/12/16 06:00 Intake and Output: 08/12/16 08/12/16 06:59 18:59 Intake Total 50 Output Total 0 Balance 50 - Medications Medications: Current Medications Aspirin (Aspirin Chewable) 81 mg PO DAILY [facility] Last Admin: 08/11/16 09:34 Dose: 81 mg Bisoprolol Fumarate (Zebeta) 5 mg PO ACB [facility] Last Admin: 08/11/16 09:33 Dose: Not Given Calcium Acetate (Phoslo) 667 mg PO TIDCC [facility] Last Admin: 08/11/16 17:32 Dose: 667 mg Diphenhydramine HCl (Benadryl) 25 mg PO Q4H PRN PRN Reason: allergies Epoetin Sly (Procrit) 10,000 unit IV MWF [facility] Cefepime HCl (Maxipime Iv 1 Gm Premix) 50 mls @ 100 mls/hr IVPB DAILY [facility] Last Admin: 08/11/16 09:34 Dose: 100 mls/hr Levothyroxine Sodium (Synthroid) 150 mcg PO DAILY@0630 [facility] Last Admin: 08/12/16 05:54 Dose: 150 mcg Pantoprazole Sodium (Protonix Ec Tab) 40 mg PO DAILY [facility] Last Admin: 08/11/16 09:34 Dose: 40 mg Rosuvastatin Calcium (Crestor) 10 mg PO HS [facility] Last Admin: 08/11/16 21:19 Dose: 10 mg - Labs Labs: 08/12/16 06:00 08/12/16 06:05 PT 14.7 SECONDS (9.7-12.2) H 08/12/16 06:00 INR 1.3 08/12/16 06:00 APTT 40 SECONDS (21-34) H 08/12/16 06:00 - Constitutional Appears: No Acute Distress, Chronically Ill - Head Exam Head Exam: ATRAUMATIC, NORMAL INSPECTION - Eye Exam Eye Exam: EOMI, Normal appearance - Neck Exam Neck Exam: Normal Inspection. absent: Tenderness - Respiratory Exam Respiratory Exam: Decreased Breath Sounds, Clear to Ausculation Bilateral, NORMAL BREATHING PATTERN - Cardiovascular Exam Cardiovascular Exam: REGULAR RHYTHM, +S1 - GI/Abdominal Exam GI & Abdominal Exam: Soft. absent: Tenderness - Extremities Exam Extremities Exam: Normal Inspection. absent: Tenderness - Neurological Exam Neurological Exam: Awake, CN II-XII Intact - Skin Skin Exam: Dry, Warm Assessment and Plan (1) CHF (congestive heart failure) Status: Acute (2) Diabetes mellitus Status: Acute (3) Secondary hyperparathyroidism Status: Acute (4) Hydropneumothorax Status: Acute (5) ESRD (end stage renal disease) on dialysis Status: Acute - Assessment and Plan (Free Text) Plan: For chest tube soon Dialysis to follow- lower UF goal as BP low For blood transfusions- 2 units prbcs Start EPO,, check iron stores
[2016-08-12 08:29] LABS: BASOPHIL 1 % (0-2); NEUTROPHIL 84 % (50-75); TOTAL CELLS COUNTED 100
--- NOTE | 2016-08-12 08:39 | RAD ---
HISTORY: hydropneumothorax COMPARISON: 08/11/2016 FINDINGS: LUNGS: Near complete opacification of the right sera thorax with minimal aeration in the right upper lung region. Possible right hydro pneumothorax again seen. PLEURA: Large right-sided pleural effusion. Small left-sided pleural effusion. CARDIOVASCULAR: Severely enlarged heart. Midline sternotomy wires and surgical clips along the left heart border noted. OSSEOUS STRUCTURES: The osseous structures demonstrate degenerative changes. VISUALIZED UPPER ABDOMEN: Upper abdomen is suboptimally evaluated. OTHER FINDINGS: Presumed left axillary vascular stent. IMPRESSION: Re- demonstration of near complete opacification of the right hemithorax with minimal aeration in the right upper lung. Possible right-sided hydro pneumothorax again noted. No significant interval change.
--- NOTE | 2016-08-12 09:51 | CP.PCM.PN ---
Subjective - Date & Time of Evaluation Date of Evaluation: 08/11/16 Time of Evaluation: 19:00 - Subjective Subjective: patient still bradycardic. TSH level is slightly elevated. Patient is also having itching in the arms and legs. Denies any nausea vomiting Objective - Vital Signs/Intake and Output Vital Signs (last 24 hours): Temp Pulse Resp BP Pulse Ox 97.2 F L 56 L 15 103/36 L 98 08/12/16 04:00 08/12/16 06:00 08/12/16 06:00 08/12/16 06:00 08/12/16 06:00 Intake and Output: 08/12/16 08/12/16 06:59 18:59 Intake Total 50 Output Total 0 Balance 50 chest good air entry bilaterally. Decreased on the right lower lung. Wheezing noted, edema noted, ecchymosis present - Medications Medications: Current Medications Aspirin (Aspirin Chewable) 81 mg PO DAILY REPLACED BY [facility] Last Admin: 08/11/16 09:34 Dose: 81 mg Bisoprolol Fumarate (Zebeta) 5 mg PO ACB [facility]PLACED BY [facility] Last Admin: 08/11/16 09:33 Dose: Not Given Calcium Acetate (Phoslo) 667 mg PO TIDCC REPLACED BY [facility] Last Admin: 08/12/16 08:59 Dose: Not Given Diphenhydramine HCl (Benadryl) 25 mg PO Q4H PRN PRN Reason: allergies Epoetin Sly (Procrit) 10,000 unit IV MWF [facility]PLACED BY [facility] Cefepime HCl (Maxipime Iv 1 Gm Premix) 50 mls @ 100 mls/hr IVPB DAILY [facility]PL[facility] BY [facility] Last Admin: 08/11/16 09:34 Dose: 100 mls/hr Levothyroxine Sodium (Synthroid) 150 mcg PO DAILY@0630 REPLACED BY [facility] Last Admin: 08/12/16 05:54 Dose: 150 mcg Pantoprazole Sodium (Protonix Ec Tab) 40 mg PO DAILY REPLACED BY [facility] Last Admin: 08/11/16 09:34 Dose: 40 mg Rosuvastatin Calcium (Crestor) 10 mg PO HS REPLACED BY [facility] Last Admin: 08/11/16 21:19 Dose: 10 mg - Labs Labs: 08/12/16 06:00 08/12/16 06:05 PT 14.7 SECONDS (9.7-12.2) H 08/12/16 06:00 INR 1.3 08/12/16 06:00 APTT 40 SECONDS (21-34) H 08/12/16 06:00 Assessment and Plan (1) ESRD (end stage renal disease) on dialysis Status: Acute (2) Hypothermia Status: Acute (3) Pleural effusion Status: Acute (4) S/P thoracentesis Assessment & Plan: status post thoracentesis. Right hydropneumothorax., For possible chest tube Patient also has a bradycardia, complicated, secondary to likely hypothyroidism. will increase the levothyroxine to 150 g. And will follow the patient Status: Acute
[2016-08-12 10:01] LABS: HEMATOCRIT 22.6 % (34.0-47.0); MEAN CORPUSCULAR HEMOGLOBIN 33.5 pg (27.0-31.0); MEAN CORPUSCULAR HGB CONC 33.1 g/dL (33.0-37.0); MEAN PLATELET VOLUME 9.3 fL (7.2-11.7); RED CELL DISTRIBUTION WIDTH 18.2 % (11.5-14.5); WHITE BLOOD COUNT 10.5 K/uL (4.8-10.8)
--- NOTE | 2016-08-12 10:10 | CP.CCUPN ---
<Heather Meza - Last Filed: 08/12/16 10:07> CCU Subjective - Physician Review Subjective (Free Text): Patient was seen and examined at bedside. Patient is on 3L NC satting at 100%. Patient's hemoglobin keeps dropping currently 7.5 this AM. Consent for blood was retrieved. Patient will be transfused 1 unit of PRBCs and will go to the OR for a chest tube at 11am. After the OR, patient will receive dialysis. CCU Objective - Vital Signs / Intake & Output Vital Signs (Last 4 hours): Vital Signs Temp Pulse Resp BP Pulse Ox 08/12/16 10:00 96 F L 57 L 18 106/37 L 100 08/12/16 08:00 97.6 F 51 L 18 106/38 L 100 Intake and Output (Last 8hrs): Intake & Output 08/11/16 08/12/16 08/12/16 22:59 06:59 14:59 Intake Total 150 0 Output Total 0 0 Balance 150 0 Weight 102 lb 12.8 oz Intake: Oral 150 0 Output: Urine 0 0 Urine, Voided 0 0 - Physical Exam Head: Positive for: Atraumatic, Normocephalic Extroacular Muscles: Positive for: EOMI Conjunctiva: Positive for: Normal Mouth: Positive for: Dry Neck: Positive for: Normal Range of Motion Respiratory/Chest: Positive for: Decreased Breath Sounds Cardiovascular: Positive for: Bradycardic Abdomen: Positive for: Normal Bowel Sounds. Negative for: Tenderness, Distention Upper Extremity: Positive for: Normal Inspection Lower Extremity: Positive for: Normal Inspection, Edema, NORMAL PULSES. Negative for: CALF TENDERNESS Neurological: Positive for: GCS=15, CN II-XII Intact Skin: Positive for: Warm, Dry Psychiatric: Positive for: Alert - Medications Active Medications: Active Medications Generic Name Dose Route Start Last Admin Trade Name Freq PRN Reason Stop Dose Admin Aspirin 81 mg 08/09/16 10:00 08/11/16 09:34 Aspirin Chewable PO 81 mg DAILY REKHA Administration Bisoprolol Fumarate 5 mg 08/09/16 07:30 08/11/16 09:33 Zebeta PO Not Given ACB REKHA Calcium Acetate 667 mg 08/08/16 17:00 08/12/16 08:59 Phoslo PO Not Given TIDCC REKHA Diphenhydramine HCl 25 mg 08/08/16 16:53 Benadryl PO Q4H PRN allergies Epoetin Sly 10,000 unit 08/12/16 09:00 Procrit IV MWF REKHA Cefepime HCl 50 mls @ 100 mls/hr 08/10/16 10:00 08/11/16 09:34 Maxipime Iv 1 Gm Premix IVPB 100 mls/hr DAILY REKHA Administration Levothyroxine Sodium 150 mcg 08/12/16 06:30 08/12/16 05:54 Synthroid PO 150 mcg DAILY@0630 REKHA Administration Pantoprazole Sodium 40 mg 08/10/16 10:00 08/11/16 09:34 Protonix Ec Tab PO 40 mg DAILY REKHA Administration Rosuvastatin Calcium 10 mg 08/09/16 22:00 08/11/16 21:19 Crestor PO 10 mg HS REKHA Administration - Patient Studies Lab Studies: Lab Studies 08/12/16 08/12/16 08/12/16 Range/Units 09:03 08:34 07:37 WBC (4.8-10.8) K/uL RBC (3.80-5.20) Mil/uL Hgb (11.0-16.0) g/dL Hct (34.0-47.0) % MCV (81.0-99.0) fL MCH (27.0-31.0) pg MCHC (33.0-37.0) g/dL RDW (11.5-14.5) % Plt Count (130-400) K/uL MPV (7.2-11.7) fL Neut % (Auto) (50.0-75.0) % Lymph % (Auto) (20.0-40.0) % [place] % (Auto) (0.0-10.0) % Eos % (Auto) (0.0-4.0) % Baso % (Auto) (0.0-2.0) % Neut # (1.8-7.0) K/uL Lymph # (1.0-4.3) K/uL [place] # (0.0-0.8) K/uL Eos # (0.0-0.7) K/uL Baso # (0.0-0.2) K/uL Neutrophils % (Manual) (50-75) % Band Neutrophils % (0-2) % Lymphocytes % (Manual) (20-40) % Monocytes % (Manual) (0-10) % Basophils % (Manual) (0-2) % Platelet Estimate (NORMAL) Hypochromasia (manual) Poikilocytosis (manual Anisocytosis (manual) Microcytosis (manual) Macrocytosis (manual) Target Cells PT (9.7-12.2) SECONDS INR APTT (21-34) SECONDS Sodium (132-148) mmol/L Potassium (3.6-5.2) mmol/L Chloride (98-107) mmol/L Carbon Dioxide (22-30) mmol/L Anion Gap (10-20) BUN (7-17) mg/dL Creatinine (0.7-1.2) MG/DL Est GFR ( Amer) Est GFR (Non-Af Amer) POC Glucose (mg/dL) 135 H (65-110) mg/dL Random Glucose (65-105) mg/dL Calcium (8.6-10.4) mg/dl Phosphorus (2.5-4.5) mg/dL Magnesium (1.6-2.3) mg/dL % Saturation 41 (20-55) Ferritin ng/mL Total Bilirubin (0.2-1.3) mg/dL AST (14-36) U/L ALT (9-52) U/L Alkaline Phosphatase (38-126) U/L Total Protein (6.3-8.3) g/dL Albumin (3.5-5.0) g/dL Globulin (2.2-3.9) gm/dL Albumin/Globulin Ratio (1.0-2.1) Free T4 (0.78-2.19) ng/dL TSH 3rd Generation (0.46-4.68) mIU/L Blood Type B POSITIVE Antibody Screen Negative 08/12/16 08/12/16 08/11/16 Range/Units 06:05 06:00 21:30 WBC 11.1 H (4.8-10.8) K/uL RBC 2.24 L (3.80-5.20) Mil/uL Hgb 7.6 L D (11.0-16.0) g/dL Hct 22.6 L (34.0-47.0) % MCV 100.9 H (81.0-99.0) fL MCH 33.7 H (27.0-31.0) pg MCHC 33.4 (33.0-37.0) g/dL RDW 18.7 H (11.5-14.5) % Plt Count 90 L (130-400) K/uL MPV 10.0 (7.2-11.7) fL Neut % (Auto) 80.2 H (50.0-75.0) % Lymph % (Auto) 7.0 L (20.0-40.0) % [place] % (Auto) 10.2 H (0.0-10.0) % Eos % (Auto) 2.1 (0.0-4.0) % Baso % (Auto) 0.5 (0.0-2.0) % Neut # 8.9 H (1.8-7.0) K/uL Lymph # 0.8 L (1.0-4.3) K/uL [place] # 1.1 H (0.0-0.8) K/uL Eos # 0.2 (0.0-0.7) K/uL Baso # 0.1 (0.0-0.2) K/uL Neutrophils % (Manual) 84 H (50-75) % Band Neutrophils % 2 (0-2) % Lymphocytes % (Manual) 7 L (20-40) % Monocytes % (Manual) 6 (0-10) % Basophils % (Manual) 1 (0-2) % Platelet Estimate Decreased L (NORMAL) Hypochromasia (manual) Moderate Poikilocytosis (manual Slight Anisocytosis (manual) Slight Microcytosis (manual) Slight Macrocytosis (manual) Slight Target Cells Slight PT 14.7 H (9.7-12.2) SECONDS INR 1.3 APTT 40 H (21-34) SECONDS Sodium 134 (132-148) mmol/L Potassium 4.1 (3.6-5.2) mmol/L Chloride 93 L (98-107) mmol/L Carbon Dioxide 28 (22-30) mmol/L Anion Gap 17 (10-20) BUN 38 H (7-17) mg/dL Creatinine 2.6 H (0.7-1.2) MG/DL Est GFR ( Amer) 22 Est GFR (Non-Af Amer) 18 POC Glucose (mg/dL) 221 H (65-110) mg/dL Random Glucose 129 H (65-105) mg/dL Calcium 9.2 (8.6-10.4) mg/dl Phosphorus 3.9 (2.5-4.5) mg/dL Magnesium 2.2 (1.6-2.3) mg/dL % Saturation (20-55) Ferritin 428.0 ng/mL Total Bilirubin 1.7 H (0.2-1.3) mg/dL AST 36 (14-36) U/L ALT 18 (9-52) U/L Alkaline Phosphatase 205 H (38-126) U/L Total Protein 7.2 (6.3-8.3) g/dL Albumin 2.8 L (3.5-5.0) g/dL Globulin 4.3 H (2.2-3.9) gm/dL Albumin/Globulin Ratio 0.7 L (1.0-2.1) Free T4 (0.78-2.19) ng/dL TSH 3rd Generation (0.46-4.68) mIU/L Blood Type Antibody Screen 08/11/16 08/11/16 08/11/16 Range/Units 16:28 12:14 10:46 WBC (4.8-10.8) K/uL RBC (3.80-5.20) Mil/uL Hgb (11.0-16.0) g/dL Hct (34.0-47.0) % MCV (81.0-99.0) fL MCH (27.0-31.0) pg MCHC (33.0-37.0) g/dL RDW (11.5-14.5) % Plt Count (130-400) K/uL MPV (7.2-11.7) fL Neut % (Auto) (50.0-75.0) % Lymph % (Auto) (20.0-40.0) % [place] % (Auto) (0.0-10.0) % Eos % (Auto) (0.0-4.0) % Baso % (Auto) (0.0-2.0) % Neut # (1.8-7.0) K/uL Lymph # (1.0-4.3) K/uL [place] # (0.0-0.8) K/uL Eos # (0.0-0.7) K/uL Baso # (0.0-0.2) K/uL Neutrophils % (Manual) (50-75) % Band Neutrophils % (0-2) % Lymphocytes % (Manual) (20-40) % Monocytes % (Manual) (0-10) % Basophils % (Manual) (0-2) % Platelet Estimate (NORMAL) Hypochromasia (manual) Poikilocytosis (manual Anisocytosis (manual) Microcytosis (manual) Macrocytosis (manual) Target Cells PT (9.7-12.2) SECONDS INR APTT (21-34) SECONDS Sodium (132-148) mmol/L Potassium (3.6-5.2) mmol/L Chloride (98-107) mmol/L Carbon Dioxide (22-30) mmol/L Anion Gap (10-20) BUN (7-17) mg/dL Creatinine (0.7-1.2) MG/DL Est GFR ( Amer) Est GFR (Non-Af Amer) POC Glucose (mg/dL) 218 H 202 H (65-110) mg/dL Random Glucose (65-105) mg/dL Calcium (8.6-10.4) mg/dl Phosphorus (2.5-4.5) mg/dL Magnesium (1.6-2.3) mg/dL % Saturation (20-55) Ferritin ng/mL Total Bilirubin (0.2-1.3) mg/dL AST (14-36) U/L ALT (9-52) U/L Alkaline Phosphatase (38-126) U/L Total Protein (6.3-8.3) g/dL Albumin (3.5-5.0) g/dL Globulin (2.2-3.9) gm/dL Albumin/Globulin Ratio (1.0-2.1) Free T4 0.77 L (0.78-2.19) ng/dL TSH 3rd Generation (0.46-4.68) mIU/L Blood Type Antibody Screen 08/11/16 Range/Units 06:30 WBC (4.8-10.8) K/uL RBC (3.80-5.20) Mil/uL Hgb (11.0-16.0) g/dL Hct (34.0-47.0) % MCV (81.0-99.0) fL MCH (27.0-31.0) pg MCHC (33.0-37.0) g/dL RDW (11.5-14.5) % Plt Count (130-400) K/uL MPV (7.2-11.7) fL Neut % (Auto) (50.0-75.0) % Lymph % (Auto) (20.0-40.0) % [place] % (Auto) (0.0-10.0) % Eos % (Auto) (0.0-4.0) % Baso % (Auto) (0.0-2.0) % Neut # (1.8-7.0) K/uL Lymph # (1.0-4.3) K/uL [place] # (0.0-0.8) K/uL Eos # (0.0-0.7) K/uL Baso # (0.0-0.2) K/uL Neutrophils % (Manual) (50-75) % Band Neutrophils % (0-2) % Lymphocytes % (Manual) (20-40) % Monocytes % (Manual) (0-10) % Basophils % (Manual) (0-2) % Platelet Estimate (NORMAL) Hypochromasia (manual) Poikilocytosis (manual Anisocytosis (manual) Microcytosis (manual) Macrocytosis (manual) Target Cells PT (9.7-12.2) SECONDS INR APTT (21-34) SECONDS Sodium (132-148) mmol/L Potassium (3.6-5.2) mmol/L Chloride (98-107) mmol/L Carbon Dioxide (22-30) mmol/L Anion Gap (10-20) BUN (7-17) mg/dL Creatinine (0.7-1.2) MG/DL Est GFR ( Amer) Est GFR (Non-Af Amer) POC Glucose (mg/dL) (65-110) mg/dL Random Glucose (65-105) mg/dL Calcium (8.6-10.4) mg/dl Phosphorus (2.5-4.5) mg/dL Magnesium (1.6-2.3) mg/dL % Saturation (20-55) Ferritin ng/mL Total Bilirubin (0.2-1.3) mg/dL AST (14-36) U/L ALT (9-52) U/L Alkaline Phosphatase (38-126) U/L Total Protein (6.3-8.3) g/dL Albumin (3.5-5.0) g/dL Globulin (2.2-3.9) gm/dL Albumin/Globulin Ratio (1.0-2.1) Free T4 (0.78-2.19) ng/dL TSH 3rd Generation 67.60 H (0.46-4.68) mIU/L Blood Type Antibody Screen Laboratory Results - last 24 hr 08/11/16 08/11/16 08/11/16 06:30 10:46 12:14 WBC RBC Hgb Hct MCV MCH MCHC RDW Plt Count MPV Neut % (Auto) Lymph % (Auto) [place] % (Auto) Eos % (Auto) Baso % (Auto) Neut # Lymph # [place] # Eos # Baso # Neutrophils % (Manual) Band Neutrophils % Lymphocytes % (Manual) Monocytes % (Manual) Basophils % (Manual) Platelet Estimate Hypochromasia (manual) Poikilocytosis (manual Anisocytosis (manual) Microcytosis (manual) Macrocytosis (manual) Target Cells PT INR APTT Sodium Potassium Chloride Carbon Dioxide Anion Gap BUN Creatinine Est GFR ( Amer) Est GFR (Non-Af Amer) POC Glucose (mg/dL) 202 H Random Glucose Calcium Phosphorus Magnesium % Saturation Ferritin Total Bilirubin AST ALT Alkaline Phosphatase Total Protein Albumin Globulin Albumin/Globulin Ratio Free T4 0.77 L TSH 3rd Generation 67.60 H Blood Type Antibody Screen 08/11/16 08/11/16 08/12/16 16:28 21:30 06:00 WBC 11.1 H RBC 2.24 L Hgb 7.6 L D Hct 22.6 L MCV 100.9 H MCH 33.7 H MCHC 33.4 RDW 18.7 H Plt Count 90 L MPV 10.0 Neut % (Auto) 80.2 H Lymph % (Auto) 7.0 L [place] % (Auto) 10.2 H Eos % (Auto) 2.1 Baso % (Auto) 0.5 Neut # 8.9 H Lymph # 0.8 L [place] # 1.1 H Eos # 0.2 Baso # 0.1 Neutrophils % (Manual) 84 H Band Neutrophils % 2 Lymphocytes % (Manual) 7 L Monocytes % (Manual) 6 Basophils % (Manual) 1 Platelet Estimate Decreased L Hypochromasia (manual) Moderate Poikilocytosis (manual Slight Anisocytosis (manual) Slight Microcytosis (manual) Slight Macrocytosis (manual) Slight Target Cells Slight PT 14.7 H INR 1.3 APTT 40 H Sodium Potassium Chloride Carbon Dioxide Anion Gap BUN Creatinine Est GFR ( Amer) Est GFR (Non-Af Amer) POC Glucose (mg/dL) 218 H 221 H Random Glucose Calcium Phosphorus Magnesium % Saturation Ferritin Total Bilirubin AST ALT Alkaline Phosphatase Total Protein Albumin Globulin Albumin/Globulin Ratio Free T4 TSH 3rd Generation Blood Type Antibody Screen 08/12/16 08/12/16 08/12/16 06:05 07:37 08:34 WBC RBC Hgb Hct MCV MCH MCHC RDW Plt Count MPV Neut % (Auto) Lymph % (Auto) [place] % (Auto) Eos % (Auto) Baso % (Auto) Neut # Lymph # [place] # Eos # Baso # Neutrophils % (Manual) Band Neutrophils % Lymphocytes % (Manual) Monocytes % (Manual) Basophils % (Manual) Platelet Estimate Hypochromasia (manual) Poikilocytosis (manual Anisocytosis (manual) Microcytosis (manual) Macrocytosis (manual) Target Cells PT INR APTT Sodium 134 Potassium 4.1 Chloride 93 L Carbon Dioxide 28 Anion Gap 17 BUN 38 H Creatinine 2.6 H Est GFR ( Amer) 22 Est GFR (Non-Af Amer) 18 POC Glucose (mg/dL) 135 H Random Glucose 129 H Calcium 9.2 Phosphorus 3.9 Magnesium 2.2 % Saturation Ferritin 428.0 Total Bilirubin 1.7 H AST 36 ALT 18 Alkaline Phosphatase 205 H Total Protein 7.2 Albumin 2.8 L Globulin 4.3 H Albumin/Globulin Ratio 0.7 L Free T4 TSH 3rd Generation Blood Type B POSITIVE Antibody Screen Negative 08/12/16 09:03 WBC RBC Hgb Hct MCV MCH MCHC RDW Plt Count MPV Neut % (Auto) Lymph % (Auto) [place] % (Auto) Eos % (Auto) Baso % (Auto) Neut # Lymph # [place] # Eos # Baso # Neutrophils % (Manual) Band Neutrophils % Lymphocytes % (Manual) Monocytes % (Manual) Basophils % (Manual) Platelet Estimate Hypochromasia (manual) Poikilocytosis (manual Anisocytosis (manual) Microcytosis (manual) Macrocytosis (manual) Target Cells PT INR APTT Sodium Potassium Chloride Carbon Dioxide Anion Gap BUN Creatinine Est GFR ( Amer) Est GFR (Non-Af Amer) POC Glucose (mg/dL) Random Glucose Calcium Phosphorus Magnesium % Saturation 41 Ferritin Total Bilirubin AST ALT Alkaline Phosphatase Total Protein Albumin Globulin Albumin/Globulin Ratio Free T4 TSH 3rd Generation Blood Type Antibody Screen Fingerstick Blood Sugar Results: 221 Critical Care Progress Note - Nutrition Nutrition: Nutrition Category Date Time Status NPO Diet [DIET] Diets 08/12/16 Breakfast Active Assessment/Plan - Assessment and Plan (Free Text) Assessment: 75 year old female with ESRD currently on dialysis MWF presented with CHF, in need of dialysis with recurrent right sided pleural effusion. Plan: Neuro: Upon admission patient was mild AMS, currently more oriented. Was hypothermic, normal temperature now. CV: -CHF - Lasix 40mg PO daily -Hx CAD: ASA, Crestor -HTN - Continue Zebeta Pulm: -Right sided recurrent pleural effusions - Dr. Walker consulted for thoracentesis - help appreciated - 1800mL was removed. -This morning CXR showed increased fluid. Ordered CT Chest- revealed right sided hydropneumothorax. Patient is comfortable , in no respiratory distress, 98% on 2L NC. CT was consulted - Dr. Soto -VATS w/ Talc pleurodesis vs chest tube vs Pleur-X catheter. Family agreed to chest tube only. Plan for OR today at 11am. Renal: -ESRD on HD MWF -Continued Elizabeth and Dr. Mcfarland - help appreciated As per Dr. Mcfarland, he will increase ultrafiltration on next dialysis. Heme: Hgb downtrending currently: 7.5 Patient will be transfused 1 unit prior to OR, 1 unit after during dialysis. Endo: - DM: Upon admission patient was hypoglycemic - Hypothyroidism: Synthroid 150 mcg PO ACB ID: Afebrile, no white count Initial UA showed UTI- Cefepime Q12H No growth on urine or blood cultures Left foot ulcer - f/u wound care Prophylaxis: GI: Protonix 40mg PO daily -held DVT: SCDs, VTE contraindicated due to thrombocytopenia Heart Healthy Diet DW Derrick West DO, PGY-1 <Tavares Ellis - Last Filed: 08/13/16 22:44> CCU Objective - Vital Signs / Intake & Output Vital Signs (Last 4 hours): Vital Signs Temp Pulse Resp BP Pulse Ox 08/13/16 22:00 74 14 123/56 L 99 08/13/16 21:00 77 14 129/51 L 100 08/13/16 20:00 98.4 F 75 16 121/52 L 100 08/13/16 19:00 74 18 112/52 L 97 Intake and Output (Last 8hrs): Intake & Output 08/13/16 08/13/16 08/13/16 06:59 14:59 22:59 Intake Total 947 50 Output Total 120 200 Balance 827 50 -200 Weight 103 lb 3.2 oz Intake: Intake, IV Amount 50 Right Hand 50 Oral 0 0 Blood Product 947 Red Blood Cells Cpd As1 325 Lr Unit [id number] Output: Chest Tube Drainage 120 200 Right Anterior Chest 120 200 Urine 0 0 Urine, Voided 0 0 - Medications Active Medications: Active Medications Generic Name Dose Route Start Last Admin Trade Name Freq PRN Reason Stop Dose Admin Aspirin 81 mg 08/09/16 10:00 08/11/16 09:34 Aspirin Chewable PO 81 mg DAILY REKHA Administration Bisoprolol Fumarate 5 mg 08/09/16 07:30 08/11/16 09:33 Zebeta PO Not Given ACB REKHA Calcium Acetate 667 mg 08/08/16 17:00 08/13/16 17:23 Phoslo PO Not Given TIDCC REKHA Diphenhydramine HCl 25 mg 08/08/16 16:53 Benadryl PO Q4H PRN allergies Epoetin Sly 10,000 unit 08/12/16 09:00 08/12/16 17:23 Procrit IV 10,000 unit MWF REKHA Administration Hydrocortisone Sodium Succinate 50 mg 08/12/16 22:30 08/13/16 22:18 Solu-Cortef IV 50 mg Q8H REKHA Administration Cefepime HCl 50 mls @ 100 mls/hr 08/10/16 10:00 08/13/16 09:45 Maxipime Iv 1 Gm Premix IVPB 100 mls/hr DAILY REKHA Administration Dextrose 500 mls @ 30 mls/hr 08/13/16 19:15 08/13/16 19:42 Dextrose 5% In Water IV 08/14/16 11:54 30 mls/hr .[id number] REKHA Administration Levothyroxine Sodium 300 mcg 08/13/16 10:00 08/13/16 09:40 Levothyroxine IV 300 mcg DAILY REKHA Administration Pantoprazole Sodium 40 mg 08/13/16 10:00 08/13/16 09:52 Protonix Inj IVP 40 mg DAILY REKHA Administration Rosuvastatin Calcium 10 mg 08/09/16 22:00 08/13/16 22:20 Crestor PO Not Given HS REKHA - Patient Studies Lab Studies: Microbiology Studies 08/12/16 14:00 Gram Stain - Final Pleural Fluid Body Fluid Culture - Preliminary NO GROWTH AFTER 24 HOURS Fungal Culture - Preliminary Lab Studies 08/13/16 08/13/16 08/13/16 Range/Units 22:08 11:54 07:40 WBC (4.8-10.8) K/uL RBC (3.80-5.20) Mil/uL Hgb (11.0-16.0) g/dL Hct (34.0-47.0) % MCV (81.0-99.0) fL MCH (27.0-31.0) pg MCHC (33.0-37.0) g/dL RDW (11.5-14.5) % Plt Count (130-400) K/uL MPV (7.2-11.7) fL Neut % (Auto) (50.0-75.0) % Lymph % (Auto) (20.0-40.0) % [place] % (Auto) (0.0-10.0) % Eos % (Auto) (0.0-4.0) % Baso % (Auto) (0.0-2.0) % Neut # (1.8-7.0) K/uL Lymph # (1.0-4.3) K/uL [place] # (0.0-0.8) K/uL Eos # (0.0-0.7) K/uL Baso # (0.0-0.2) K/uL Neutrophils % (Manual) (50-75) % Band Neutrophils % (0-2) % Lymphocytes % (Manual) (20-40) % Reactive Lymphs % (0-0) % Monocytes % (Manual) (0-10) % Platelet Estimate (NORMAL) Large Platelets Giant Platelets Polychromasia Hypochromasia (manual) Poikilocytosis (manual Anisocytosis (manual) Ovalocytes Melia Cells Schistocytes Sodium (132-148) mmol/L Potassium (3.6-5.2) mmol/L Chloride (98-107) mmol/L Carbon Dioxide (22-30) mmol/L Anion Gap (10-20) BUN (7-17) mg/dL Creatinine (0.7-1.2) MG/DL Est GFR ( Amer) Est GFR (Non-Af Amer) POC Glucose (mg/dL) 170 H 147 H 127 H (65-110) mg/dL Random Glucose (65-105) mg/dL Calcium (8.6-10.4) mg/dl Phosphorus (2.5-4.5) mg/dL Magnesium (1.6-2.3) mg/dL Total Bilirubin (0.2-1.3) mg/dL AST (14-36) U/L ALT (9-52) U/L Alkaline Phosphatase (38-126) U/L Total Protein (6.3-8.3) g/dL Albumin (3.5-5.0) g/dL Globulin (2.2-3.9) gm/dL Albumin/Globulin Ratio (1.0-2.1) Blood Type Antibody Screen 08/13/16 08/13/16 08/13/16 Range/Units 06:19 01:38 00:13 WBC 7.3 (4.8-10.8) K/uL RBC 3.15 L (3.80-5.20) Mil/uL Hgb 9.7 L (11.0-16.0) g/dL Hct 29.0 L (34.0-47.0) % MCV 92.1 (81.0-99.0) fL MCH 30.9 (27.0-31.0) pg MCHC 33.6 (33.0-37.0) g/dL RDW 18.6 H (11.5-14.5) % Plt Count 133 (130-400) K/uL MPV 8.5 (7.2-11.7) fL Neut % (Auto) 94.5 H (50.0-75.0) % Lymph % (Auto) 2.8 L (20.0-40.0) % [place] % (Auto) 2.5 (0.0-10.0) % Eos % (Auto) 0.1 (0.0-4.0) % Baso % (Auto) 0.1 (0.0-2.0) % Neut # 6.9 (1.8-7.0) K/uL Lymph # 0.2 L (1.0-4.3) K/uL [place] # 0.2 (0.0-0.8) K/uL Eos # 0.0 (0.0-0.7) K/uL Baso # 0.0 (0.0-0.2) K/uL Neutrophils % (Manual) 88 H (50-75) % Band Neutrophils % 7 H (0-2) % Lymphocytes % (Manual) 2 L (20-40) % Reactive Lymphs % 1 H (0-0) % Monocytes % (Manual) 2 (0-10) % Platelet Estimate Normal (NORMAL) Large Platelets Present Giant Platelets Present Polychromasia Slight Hypochromasia (manual) Slight Poikilocytosis (manual Slight Anisocytosis (manual) Slight Ovalocytes Slight Melia Cells Slight Schistocytes Slight Sodium 138 (132-148) mmol/L Potassium 5.1 (3.6-5.2) mmol/L Chloride 98 (98-107) mmol/L Carbon Dioxide 27 (22-30) mmol/L Anion Gap 18 (10-20) BUN 34 H (7-17) mg/dL Creatinine 2.4 H (0.7-1.2) MG/DL Est GFR ( Amer) 24 Est GFR (Non-Af Amer) 20 POC Glucose (mg/dL) 144 H 76 (65-110) mg/dL Random Glucose 117 H (65-105) mg/dL Calcium 8.7 (8.6-10.4) mg/dl Phosphorus 3.6 (2.5-4.5) mg/dL Magnesium 2.0 (1.6-2.3) mg/dL Total Bilirubin 2.5 H (0.2-1.3) mg/dL AST 46 H D (14-36) U/L ALT 14 (9-52) U/L Alkaline Phosphatase 142 H D (38-126) U/L Total Protein 7.2 (6.3-8.3) g/dL Albumin 3.2 L (3.5-5.0) g/dL Globulin 4.0 H (2.2-3.9) gm/dL Albumin/Globulin Ratio 0.8 L (1.0-2.1) Blood Type Antibody Screen 08/12/16 Range/Units 08:34 WBC (4.8-10.8) K/uL RBC (3.80-5.20) Mil/uL Hgb (11.0-16.0) g/dL Hct (34.0-47.0) % MCV (81.0-99.0) fL MCH (27.0-31.0) pg MCHC (33.0-37.0) g/dL RDW (11.5-14.5) % Plt Count (130-400) K/uL MPV (7.2-11.7) fL Neut % (Auto) (50.0-75.0) % Lymph % (Auto) (20.0-40.0) % Horry % (Auto) (0.0-10.0) % Eos % (Auto) (0.0-4.0) % Baso % (Auto) (0.0-2.0) % Neut # (1.8-7.0) K/uL Lymph # (1.0-4.3) K/uL Horry # (0.0-0.8) K/uL Eos # (0.0-0.7) K/uL Baso # (0.0-0.2) K/uL Neutrophils % (Manual) (50-75) % Band Neutrophils % (0-2) % Lymphocytes % (Manual) (20-40) % Reactive Lymphs % (0-0) % Monocytes % (Manual) (0-10) % Platelet Estimate (NORMAL) Large Platelets Giant Platelets Polychromasia Hypochromasia (manual) Poikilocytosis (manual Anisocytosis (manual) Ovalocytes Melia Cells Schistocytes Sodium (132-148) mmol/L Potassium (3.6-5.2) mmol/L Chloride (98-107) mmol/L Carbon Dioxide (22-30) mmol/L Anion Gap (10-20) BUN (7-17) mg/dL Creatinine (0.7-1.2) MG/DL Est GFR ( Amer) Est GFR (Non-Af Amer) POC Glucose (mg/dL) (65-110) mg/dL Random Glucose (65-105) mg/dL Calcium (8.6-10.4) mg/dl Phosphorus (2.5-4.5) mg/dL Magnesium (1.6-2.3) mg/dL Total Bilirubin (0.2-1.3) mg/dL AST (14-36) U/L ALT (9-52) U/L Alkaline Phosphatase (38-126) U/L Total Protein (6.3-8.3) g/dL Albumin (3.5-5.0) g/dL Globulin (2.2-3.9) gm/dL Albumin/Globulin Ratio (1.0-2.1) Blood Type B POSITIVE Antibody Screen Negative Laboratory Results - last 24 hr 08/12/16 08/13/16 08/13/16 08:34 00:13 01:38 WBC RBC Hgb Hct MCV MCH MCHC RDW Plt Count MPV Neut % (Auto) Lymph % (Auto) [place] % (Auto) Eos % (Auto) Baso % (Auto) Neut # Lymph # [place] # Eos # Baso # Neutrophils % (Manual) Band Neutrophils % Lymphocytes % (Manual) Reactive Lymphs % Monocytes % (Manual) Platelet Estimate Large Platelets Giant Platelets Polychromasia Hypochromasia (manual) Poikilocytosis (manual Anisocytosis (manual) Ovalocytes Melia Cells Schistocytes Sodium Potassium Chloride Carbon Dioxide Anion Gap BUN Creatinine Est GFR ( Amer) Est GFR (Non-Af Amer) POC Glucose (mg/dL) 76 144 H Random Glucose Calcium Phosphorus Magnesium Total Bilirubin AST ALT Alkaline Phosphatase Total Protein Albumin Globulin Albumin/Globulin Ratio Blood Type B POSITIVE Antibody Screen Negative 08/13/16 08/13/16 08/13/16 06:19 07:40 11:54 WBC 7.3 RBC 3.15 L Hgb 9.7 L Hct 29.0 L MCV 92.1 MCH 30.9 MCHC 33.6 RDW 18.6 H Plt Count 133 MPV 8.5 Neut % (Auto) 94.5 H Lymph % (Auto) 2.8 L [place] % (Auto) 2.5 Eos % (Auto) 0.1 Baso % (Auto) 0.1 Neut # 6.9 Lymph # 0.2 L [place] # 0.2 Eos # 0.0 Baso # 0.0 Neutrophils % (Manual) 88 H Band Neutrophils % 7 H Lymphocytes % (Manual) 2 L Reactive Lymphs % 1 H Monocytes % (Manual) 2 Platelet Estimate Normal Large Platelets Present Giant Platelets Present Polychromasia Slight Hypochromasia (manual) Slight Poikilocytosis (manual Slight Anisocytosis (manual) Slight Ovalocytes Slight Melia Cells Slight Schistocytes Slight Sodium 138 Potassium 5.1 Chloride 98 Carbon Dioxide 27 Anion Gap 18 BUN 34 H Creatinine 2.4 H Est GFR ( Amer) 24 Est GFR (Non-Af Amer) 20 POC Glucose (mg/dL) 127 H 147 H Random Glucose 117 H Calcium 8.7 Phosphorus 3.6 Magnesium 2.0 Total Bilirubin 2.5 H AST 46 H D ALT 14 Alkaline Phosphatase 142 H D Total Protein 7.2 Albumin 3.2 L Globulin 4.0 H Albumin/Globulin Ratio 0.8 L Blood Type Antibody Screen 08/13/16 22:08 WBC RBC Hgb Hct MCV MCH MCHC RDW Plt Count MPV Neut % (Auto) Lymph % (Auto) [place] % (Auto) Eos % (Auto) Baso % (Auto) Neut # Lymph # [place] # Eos # Baso # Neutrophils % (Manual) Band Neutrophils % Lymphocytes % (Manual) Reactive Lymphs % Monocytes % (Manual) Platelet Estimate Large Platelets Giant Platelets Polychromasia Hypochromasia (manual) Poikilocytosis (manual Anisocytosis (manual) Ovalocytes Melia Cells Schistocytes Sodium Potassium Chloride Carbon Dioxide Anion Gap BUN Creatinine Est GFR ( Amer) Est GFR (Non-Af Amer) POC Glucose (mg/dL) 170 H Random Glucose Calcium Phosphorus Magnesium Total Bilirubin AST ALT Alkaline Phosphatase Total Protein Albumin Globulin Albumin/Globulin Ratio Blood Type Antibody Screen Critical Care Progress Note - Nutrition Nutrition: Nutrition Category Date Time Status NPO Diet [DIET] Diets 08/13/16 Breakfast Active Attending/Attestation - Attestation I have personally seen and examined this patient.: Yes I have fully participated in the care of the patient.: Yes I have reviewed all pertinent clinical information: Yes Notes (Text): Today: Friday, August 12, 2016 The Patient was seen and examined at the bedside, Medical records reviewed, all clinical/lab/hemodynamic/radiographic data were reviewed and management issues were discussed and formulated, Events reviewed Pain issues, skin care, head of the bed elevation, glycemic control were addressed. Agree with above treatment plans as transcribed in Dr. Meza note
[2016-08-12] MEDS: Pantoprazole 40 mg EC Tab PO SCH (10:18)
[2016-08-12] MEDS: Cefepime IV 1 gm in Dextrose 50 ML IVPB SCH (11:06)
[2016-08-12] MEDS ORDERED: Lidocaine 1% Inj (20ml) ONE ×3 (11:23→12:47)
[2016-08-12] MEDS ORDERED: Etomidate 20 mg/10ml Inj IV ONE (11:26)
[2016-08-12] MEDS ORDERED: Sodium Chloride 0.9% 500 ML IV ONE (11:48)
[2016-08-12 12:39] LABS: THYROID STIMULATING HORMONE 76.7 mIU/L (0.46-4.68)
[2016-08-12] MEDS ORDERED: Bacitracin 500 Units/gm Oint Foilpak UD ONE (13:08)
--- NOTE | 2016-08-12 13:55 | CP.PCM.PN ---
Subjective - Date & Time of Evaluation Date of Evaluation: 08/12/16 Time of Evaluation: 13:55 Objective - Vital Signs/Intake and Output Vital Signs (last 24 hours): Temp Pulse Resp BP Pulse Ox 96.2 F L 54 L 15 108/37 L 100 08/12/16 11:09 08/12/16 11:09 08/12/16 11:09 08/12/16 11:09 08/12/16 10:00 Intake and Output: 08/12/16 08/12/16 06:59 18:59 Intake Total 50 0 Output Total 0 Balance 50 0 - Medications Medications: Current Medications Aspirin (Aspirin Chewable) 81 mg PO DAILY [facility] Last Admin: 08/11/16 09:34 Dose: 81 mg Bisoprolol Fumarate (Zebeta) 5 mg PO ACB [facility] Last Admin: 08/11/16 09:33 Dose: Not Given Calcium Acetate (Phoslo) 667 mg PO TIDCC [facility] Last Admin: 08/12/16 12:25 Dose: Not Given Diphenhydramine HCl (Benadryl) 25 mg PO Q4H PRN PRN Reason: allergies Epoetin Sly (Procrit) 10,000 unit IV MWF [facility] Cefepime HCl (Maxipime Iv 1 Gm Premix) 50 mls @ 100 mls/hr IVPB DAILY [facility] Last Admin: 08/12/16 11:06 Dose: 100 mls/hr Levothyroxine Sodium (Synthroid) 150 mcg PO DAILY@0630 [facility] Last Admin: 08/12/16 05:54 Dose: 150 mcg Pantoprazole Sodium (Protonix Ec Tab) 40 mg PO DAILY [facility] Last Admin: 08/12/16 10:18 Dose: Not Given Rosuvastatin Calcium (Crestor) 10 mg PO HS [facility] Last Admin: 08/11/16 21:19 Dose: 10 mg - Labs Labs: 08/12/16 09:58 08/12/16 06:05 PT 14.7 SECONDS (9.7-12.2) H 08/12/16 06:00 INR 1.3 08/12/16 06:00 APTT 40 SECONDS (21-34) H 08/12/16 06:00
--- NOTE | 2016-08-12 14:01 | PCM.SURG1 ---
Surgeon's Initial Post Op Note - Surgeon's Notes Surgeon: Dr. Soto Manager Review: Dr. Beard PGY-1 Type of Anesthesia: General Endo Pre-Operative Diagnosis: hydropneumothorax Operative Findings: see operative note Post-Operative Diagnosis: see operative note Operation Performed: attempt of lateral chest tube insertion; right. anterior chest tube insertion ;right Specimen/Specimens Removed: blood;right hemithorax Estimated Blood Loss: EBL {In ML}: 50 Blood Products Given: N/A Drains Used: Chest Tubes Post-Op Condition: Good Date of Surgery/Procedure: 08/12/16 Time of Surgery/Procedure: 12:30
--- NOTE | 2016-08-12 14:19 | RAD ---
HISTORY: s/p chest tube insertion COMPARISON: Multiple prior radiographs most recently from 08/12/2016 FINDINGS: LUNGS: Hazy opacity in the right lung base. Interval introduction of right-sided chest tube. Surgical tony along the right chest wall. Increased aeration on the right. PLEURA: Residual pleural effusion on the right. CARDIOVASCULAR: Enlarged heart. Midline sternotomy wires and surgical clips along the left heart border noted. OSSEOUS STRUCTURES: The osseous structures demonstrate degenerative changes. VISUALIZED UPPER ABDOMEN: Upper abdomen is suboptimally evaluated. OTHER FINDINGS: None. IMPRESSION: Interval introduction of right-sided chest tube. Persistent hazy opacity in the right. Mildly increased aeration in the right lung.
[2016-08-12 15:27] LABS: BODY FLUID TYPE PLEURAL
[2016-08-12] MEDS ORDERED: Albumin Human 25% (12.5 gm/50 ml) IV ONE ×2 (15:30→16:00)
[2016-08-12] MEDS ORDERED: Naloxone 0.4 mg/ml Inj (Adult) IVP ONE (15:39)
[2016-08-12 15:43] LABS: BF GROSS APPEARANCE BLOODY (CLEAR)
[2016-08-12] MEDS ORDERED: Levothyroxine 75 MCG TAB PO ONE (16:00)
[2016-08-12 16:09] LABS: BODY FLUID TOTAL COUNT 100 (0-0)
[2016-08-12] MEDS: Epoetin Alfa 10,000 unit/ml Dialysis IV SCH (17:23)
[2016-08-12 20:19] LABS: MEAN CORPUSCULAR HEMOGLOBIN 31.1 pg (27.0-31.0); MEAN CORPUSCULAR HGB CONC 33.3 g/dL (33.0-37.0); MEAN PLATELET VOLUME 9.5 fL (7.2-11.7); RED CELL DISTRIBUTION WIDTH 20.1 % (11.5-14.5); WHITE BLOOD COUNT 7.3 K/uL (4.8-10.8)
[2016-08-12 20:29] LABS: MEAN CELL VOLUME 93.4 fL (81.0-99.0)
[2016-08-12] MEDS ORDERED: SODIUM CHLORIDE 0.9% IV ONE (20:49)
[2016-08-12] MEDS ORDERED: DESMOPRESSIN IV ONE (20:49)
[2016-08-12] MEDS ORDERED: MethylPREDNISolone 40 mg Vial IVP STA (21:39)
[2016-08-12] MEDS ORDERED: Levothyroxine 200 mcg (0.2 mg) Inj IVP STA ×2 (21:39→22:21)
--- NOTE | 2016-08-12 22:15 | RAD ---
EXAM: XR Chest, 1 View CLINICAL HISTORY: 75 years old, female; Condition or disease; Other: Chest tube rt side; Patient HX: Earlier xray sent to [facility] for comparison TECHNIQUE: Frontal view of the chest. EXAM DATE/TIME: 08/12/2016 9:07 PM COMPARISON: CR - CHEST PORTABLE 08/12/2016 1:59:29 PM FINDINGS: Sternotomy wires. Right chest tube unchanged in position. Again seen are clips along the left cardiac border. Again seen are tony in the right lateral chest wall. Stable cardiomegaly. Stable opacity in the right mid-lower lung likely representing a combination of infiltrate, consolidation, effusion. The left lung remains clear. IMPRESSION: No significant change from prior.
--- NOTE | 2016-08-12 22:32 | CP.PCM.CON ---
History of Present Illness - History of Present Illness History of Present Illness: 75 F with hx of CAD, Ischemic CMP, HTN, DM, CKD admitted for altered mental status and pleural effusion 75F w/ PMHx of DM, HTN, ESRD on dialysis (MWF), CAD, hypothyroidism, presented to the ED on 08/08 w/ hypoglycemia and altered mental status. Cardiothoracic surgery was consulted for recurrent right pleural effusion. On 08/09, patient underwent a right thoracentesis done by IR, and 1800ccs of fluid were drained. On 08/10, repeat CXR was done to f/u pleural effusion drainage, and CXR demonstrated a large loculated right sided hydropneumothorax w/ dense consolidative changes in the right mid and lower lung zones. Currently patient is on 3L O2 satting at 100%. Patient states she intermittently feels shortness of breath. At time of examination patient stated she had no difficulty breathing and denied chest pain. VSS. Spoke extensively about possible surgical interventions with patient's brother at bedside and patient's daughter over phone. Latest echo on medical record demonstrated patient's EF was 60-65%, however, after speaking with daughter she stated that patient had a recent echo done which demonstrated EF to be at 29%, will get repeat echo. After extensive conversation with patient's daughter, she stated she needed more time to research the surgical interventions being offered. Patient daughter states she does not want to pursue any high risk/ aggressive measures when it comes to surgical intervention. Patient's daughter is aware of the different surgical treatment options offered and is asking for some time before making a decision. PMHx: as stated above PSurgHx: CABG, AVF (left), stent placements x3 Allergies: Sulfa Review of Systems - Review of Systems Review of Systems: 12pt ROS carried out, unremarkable, except as stated in HPI Physical Exam - Constitutional Appears: No Acute Distress - Head Exam Head Exam: NORMOCEPHALIC - Eye Exam Eye Exam: Normal appearance - ENT Exam ENT Exam: Mucous Membranes Moist - Respiratory Exam Respiratory Exam: Decreased Breath Sounds - Cardiovascular Exam Cardiovascular Exam: +S1, +S2 - GI/Abdominal Exam GI & Abdominal Exam: Soft - Extremities Exam Additional comments: ulcers - Neurological Exam Neurological exam: Alert - Psychiatric Exam Psychiatric exam: Normal Mood - Skin Skin Exam: Dry, Normal Color Past Patient History - Infectious Disease Hx of Infectious Diseases: None - Past Medical History & Family History Past Medical History?: Yes - Past Social History Smoking Status: Never Smoked - CARDIAC Hx Cardiac Disorders: Yes Hx Congestive Heart Failure: Yes Hx Hypertension: Yes Hx Peripheral Edema: Yes - PULMONARY Hx Respiratory Disorders: Yes Other/Comment: hx of thoracentesis - NEUROLOGICAL Hx Neurological Disorder: Yes Other/Comment: [place] - HEENT Hx HEENT Problems: Yes Other/Comment: hard of hearing - RENAL Hx Chronic Kidney Disease: Yes Hx Dialysis: Yes Type of Dialysis Access: Hemodialysis Date of Last Dialysis Treatment: 08/05/16 - ENDOCRINE/METABOLIC Hx Hypothyroidism: Yes - HEMATOLOGICAL/ONCOLOGICAL Hx Blood Disorders: No - INTEGUMENTARY Hx Dermatological Problems: No - MUSCULOSKELETAL/RHEUMATOLOGICAL Hx Musculoskeletal Disorders: No Hx Falls: No - GASTROINTESTINAL Hx Gastrointestinal Disorders: No Hx Crohn's Disease: No Hx Diverticulitis: No - GENITOURINARY/GYNECOLOGICAL Hx Genitourinary Disorders: Yes Hx Incontinence: Yes Hx Urinary Tract Infection: Yes (2006) Other/Comment: ureteral stent placed 06/2015 - PSYCHIATRIC Hx Psychophysiologic Disorder: No Hx Substance Use: No - SURGICAL HISTORY Hx Surgeries: Yes Hx Coronary Artery Bypass Graft: Yes (2001) Hx Coronary Stent: Yes (x3 in 2006) - ANESTHESIA Hx Anesthesia: Yes Hx Anesthesia Reactions: No Hx Malignant Hyperthermia: No Has any member of the family had a problem w/ anesthesia?: No Meds Allergies/Adverse Reactions: Allergies Allergy/AdvReac Type Severity Reaction Status Date / Time Sulfa (Sulfonamide Allergy RASH Verified 05/27/16 10:31 Antibiotics) - Medications Medications: Current Medications Aspirin (Aspirin Chewable) 81 mg PO DAILY [facility] Last Admin: 08/11/16 09:34 Dose: 81 mg Bisoprolol Fumarate (Zebeta) 5 mg PO ACB [facility] Last Admin: 08/11/16 09:33 Dose: Not Given Calcium Acetate (Phoslo) 667 mg PO TIDCC [facility] Last Admin: 08/12/16 17:18 Dose: Not Given Diphenhydramine HCl (Benadryl) 25 mg PO Q4H PRN PRN Reason: allergies Epoetin Sly (Procrit) 10,000 unit IV MWF [facility] Last Admin: 08/12/16 17:23 Dose: 10,000 unit Hydrocortisone Sodium Succinate (Solu-Cortef) 50 mg IV Q8H [facility] Cefepime HCl (Maxipime Iv 1 Gm Premix) 50 mls @ 100 mls/hr IVPB DAILY [facility] Last Admin: 08/12/16 11:06 Dose: 100 mls/hr Levothyroxine Sodium (Levothyroxine) 300 mcg IV DAILY [facility] Pantoprazole Sodium (Protonix Ec Tab) 40 mg PO DAILY [facility] Last Admin: 08/12/16 10:18 Dose: Not Given Rosuvastatin Calcium (Crestor) 10 mg PO HS [facility] Last Admin: 08/12/16 22:12 Dose: Not Given Results - Vital Signs Recent Vital Signs: Last Vital Signs Temp 96.6 F L 08/12/16 17:14 Pulse 59 L 08/12/16 19:00 Resp 18 08/12/16 19:00 BP 89/47 L 08/12/16 19:00 Pulse Ox 100 08/12/16 19:00 - Labs Result Diagrams: 08/13/16 06:19 08/13/16 06:19 Labs: Laboratory Results - last 24 hr 08/12/16 08/12/16 08/12/16 06:00 06:05 07:37 WBC 11.1 H RBC 2.24 L Hgb 7.6 L D Hct 22.6 L MCV 100.9 H MCH 33.7 H MCHC 33.4 RDW 18.7 H Plt Count 90 L MPV 10.0 Neut % (Auto) 80.2 H Lymph % (Auto) 7.0 L Clarke % (Auto) 10.2 H Eos % (Auto) 2.1 Baso % (Auto) 0.5 Neut # 8.9 H Lymph # 0.8 L Clarke # 1.1 H Eos # 0.2 Baso # 0.1 Neutrophils % (Manual) 84 H Band Neutrophils % 2 Lymphocytes % (Manual) 7 L Monocytes % (Manual) 6 Basophils % (Manual) 1 Platelet Estimate Decreased L Hypochromasia (manual) Moderate Poikilocytosis (manual Slight Anisocytosis (manual) Slight Microcytosis (manual) Slight Macrocytosis (manual) Slight Target Cells Slight PT 14.7 H INR 1.3 APTT 40 H Sodium 134 Potassium 4.1 Chloride 93 L Carbon Dioxide 28 Anion Gap 17 BUN 38 H Creatinine 2.6 H Est GFR ( Amer) 22 Est GFR (Non-Af Amer) 18 POC Glucose (mg/dL) 135 H Random Glucose 129 H Calcium 9.2 Phosphorus 3.9 Magnesium 2.2 % Saturation Ferritin 428.0 Total Bilirubin 1.7 H AST 36 ALT 18 Alkaline Phosphatase 205 H Total Protein 7.2 Albumin 2.8 L Globulin 4.3 H Albumin/Globulin Ratio 0.7 L TSH 3rd Generation 76.70 H Fluid Source Fluid Appearance Fluid WBC Fluid RBC Fluid Tot Cell Count Fluid Neutrophils Fluid Lymphocytes Fld Monocyte/Macrophag Fluid Comment Blood Type Antibody Screen 08/12/16 08/12/16 08/12/16 08:34 09:03 09:58 WBC 10.5 RBC 2.24 L Hgb 7.5 L Hct 22.6 L MCV 101.0 H MCH 33.5 H MCHC 33.1 RDW 18.2 H Plt Count 87 L MPV 9.3 Neut % (Auto) Lymph % (Auto) Clarke % (Auto) Eos % (Auto) Baso % (Auto) Neut # Lymph # Clarke # Eos # Baso # Neutrophils % (Manual) Band Neutrophils % Lymphocytes % (Manual) Monocytes % (Manual) Basophils % (Manual) Platelet Estimate Hypochromasia (manual) Poikilocytosis (manual Anisocytosis (manual) Microcytosis (manual) Macrocytosis (manual) Target Cells PT INR APTT Sodium Potassium Chloride Carbon Dioxide Anion Gap BUN Creatinine Est GFR ( Amer) Est GFR (Non-Af Amer) POC Glucose (mg/dL) Random Glucose Calcium Phosphorus Magnesium % Saturation 41 Ferritin Total Bilirubin AST ALT Alkaline Phosphatase Total Protein Albumin Globulin Albumin/Globulin Ratio TSH 3rd Generation Fluid Source Fluid Appearance Fluid WBC Fluid RBC Fluid Tot Cell Count Fluid Neutrophils Fluid Lymphocytes Fld Monocyte/Macrophag Fluid Comment Blood Type B POSITIVE Antibody Screen Negative 08/12/16 08/12/16 08/12/16 13:37 15:26 16:41 WBC RBC Hgb Hct MCV MCH MCHC RDW Plt Count MPV Neut % (Auto) Lymph % (Auto) Clarke % (Auto) Eos % (Auto) Baso % (Auto) Neut # Lymph # Clarke # Eos # Baso # Neutrophils % (Manual) Band Neutrophils % Lymphocytes % (Manual) Monocytes % (Manual) Basophils % (Manual) Platelet Estimate Hypochromasia (manual) Poikilocytosis (manual Anisocytosis (manual) Microcytosis (manual) Macrocytosis (manual) Target Cells PT INR APTT Sodium Potassium Chloride Carbon Dioxide Anion Gap BUN Creatinine Est GFR ( Amer) Est GFR (Non-Af Amer) POC Glucose (mg/dL) 128 H 99 Random Glucose Calcium Phosphorus Magnesium % Saturation Ferritin Total Bilirubin AST ALT Alkaline Phosphatase Total Protein Albumin Globulin Albumin/Globulin Ratio TSH 3rd Generation Fluid Source Pleural Fluid Appearance Bloody Fluid WBC 9602.0 H Fluid RBC 4215605.0 H Fluid Tot Cell Count 100 H Fluid Neutrophils 80.0 H Fluid Lymphocytes 17.0 H Fld Monocyte/Macrophag 3 H Fluid Comment TEST NOT PERFORMED Blood Type Antibody Screen 08/12/16 08/12/16 20:11 22:06 WBC 7.3 RBC 2.68 L Hgb 8.3 L Hct 25.0 L MCV 93.4 D MCH 31.1 H MCHC 33.3 RDW 20.1 H Plt Count 71 L MPV 9.5 Neut % (Auto) Lymph % (Auto) Clarke % (Auto) Eos % (Auto) Baso % (Auto) Neut # Lymph # Clarke # Eos # Baso # Neutrophils % (Manual) Band Neutrophils % Lymphocytes % (Manual) Monocytes % (Manual) Basophils % (Manual) Platelet Estimate Hypochromasia (manual) Poikilocytosis (manual Anisocytosis (manual) Microcytosis (manual) Macrocytosis (manual) Target Cells PT INR APTT Sodium Potassium Chloride Carbon Dioxide Anion Gap BUN Creatinine Est GFR ( Amer) Est GFR (Non-Af Amer) POC Glucose (mg/dL) 83 Random Glucose Calcium Phosphorus Magnesium % Saturation Ferritin Total Bilirubin AST ALT Alkaline Phosphatase Total Protein Albumin Globulin Albumin/Globulin Ratio TSH 3rd Generation Fluid Source Fluid Appearance Fluid WBC Fluid RBC Fluid Tot Cell Count Fluid Neutrophils Fluid Lymphocytes Fld Monocyte/Macrophag Fluid Comment Blood Type Antibody Screen Assessment & Plan - Assessment and Plan (Free Text) Assessment: Neuro: Upon admission patient was mild AMS, currently more oriented. Was hypothermic, normal temperature now. CV: -CHF - Lasix 40mg PO daily -Hx CAD: ASA, Crestor -HTN - Continue Zebeta Pulm: -Right sided recurrent pleural effusions - Dr. Walker consulted for thoracentesis - help appreciated - 1800mL was removed. Renal: -ESRD on HD MWF -Continued [facility] and Dr. Mcfarland - help appreciated Patient underwent dialysis on Monday and had 2.[address] L removed[address] As per Dr. Mcfarland, he will increase ultrafiltration on next dialysis. Endo: - DM: Upon admission patient was hypoglycemic - Hypothyroidism: Synthroid 75 mcg PO ACB ID: Afebrile, no white count Initial UA showed UTI- Cefepime Q12H F/U repeat UA, urine, blood cultures Left foot ulcer - f/u wound care Prophylaxis: GI: Protonix 40mg IVP daily DVT: SCDs, VTE contraindicated due to thrombocytopenia
--- NOTE | 2016-08-12 22:40 | CP.PCM.PN ---
Subjective - Date & Time of Evaluation Date of Evaluation: 08/12/16 Time of Evaluation: 12:00 - Subjective Subjective: Patient seen and evaluated No cardiac complaints Physical Exam - Constitutional Appears: No Acute Distress - Head Exam Head Exam: NORMOCEPHALIC - Eye Exam Eye Exam: Normal appearance - ENT Exam ENT Exam: Mucous Membranes Moist - Respiratory Exam Respiratory Exam: Decreased Breath Sounds - Cardiovascular Exam Cardiovascular Exam: +S1, +S2 - GI/Abdominal Exam GI & Abdominal Exam: Soft - Extremities Exam Additional comments: ulcers - Neurological Exam Neurological exam: Alert - Psychiatric Exam Psychiatric exam: Normal Mood - Skin Skin Exam: Dry, Normal Color Objective - Vital Signs/Intake and Output Vital Signs (last 24 hours): Temp Pulse Resp BP Pulse Ox 96.6 F L 59 L 18 89/47 L 100 08/12/16 17:14 08/12/16 19:00 08/12/16 19:00 08/12/16 19:00 08/12/16 19:00 Intake and Output: 08/12/16 08/13/16 18:59 06:59 Intake Total 1600 Output Total 1140 Balance 460 - Medications Medications: Current Medications Aspirin (Aspirin Chewable) 81 mg PO DAILY [facility] Last Admin: 08/11/16 09:34 Dose: 81 mg Bisoprolol Fumarate (Zebeta) 5 mg PO ACB [facility] Last Admin: 08/11/16 09:33 Dose: Not Given Calcium Acetate (Phoslo) 667 mg PO TIDCC [facility] Last Admin: 08/12/16 17:18 Dose: Not Given Diphenhydramine HCl (Benadryl) 25 mg PO Q4H PRN PRN Reason: allergies Epoetin Sly (Procrit) 10,000 unit IV MWF [facility] Last Admin: 08/12/16 17:23 Dose: 10,000 unit Hydrocortisone Sodium Succinate (Solu-Cortef) 50 mg IV Q8H [facility] Cefepime HCl (Maxipime Iv 1 Gm Premix) 50 mls @ 100 mls/hr IVPB DAILY [facility] Last Admin: 08/12/16 11:06 Dose: 100 mls/hr Levothyroxine Sodium (Levothyroxine) 300 mcg IV DAILY [facility] Pantoprazole Sodium (Protonix Ec Tab) 40 mg PO DAILY [facility] Last Admin: 08/12/16 10:18 Dose: Not Given Rosuvastatin Calcium (Crestor) 10 mg PO HS [facility] Last Admin: 08/12/16 22:12 Dose: Not Given - Labs Labs: 08/12/16 20:11 08/12/16 06:05 PT 14.7 SECONDS (9.7-12.2) H 08/12/16 06:00 INR 1.3 08/12/16 06:00 APTT 40 SECONDS (21-34) H 08/12/16 06:00 Assessment and Plan - Assessment and Plan (Free Text) Assessment: Neuro: Upon admission patient was mild AMS, currently more oriented. Was hypothermic, normal temperature now. CV: -CHF - Lasix 40mg PO daily -Hx CAD: ASA, Crestor -HTN - Continue Zebeta Pulm: -Right sided recurrent pleural effusions - Dr. Walker consulted for thoracentesis - help appreciated - 1800mL was removed. -This morning CXR showed increased fluid. Ordered CT Chest- revealed right sided hydropneumothorax. Patient is comfortable , in no respiratory distress, 98% on 2L NC. CT was consulted - Dr. Soto -VATS w/ Talc pleurodesis vs chest tube vs Pleur-X catheter. Family agreed to chest tube only. Plan for OR today at 11am. Renal: -ESRD on HD MWF -Continued [facility] and Dr. Mcfarland - help appreciated As per Dr. Mcfarland, he will increase ultrafiltration on next dialysis. Heme: Hgb downtrending currently: 7.5 Patient will be transfused 1 unit prior to OR, 1 unit after during dialysis. Endo: - DM: Upon admission patient was hypoglycemic - Hypothyroidism: Synthroid 150 mcg PO ACB ID: Afebrile, no white count Initial UA showed UTI- Cefepime Q12H No growth on urine or blood cultures Left foot ulcer - f/u wound care Prophylaxis: GI: Protonix 40mg PO daily -held DVT: SCDs, VTE contraindicated due to thrombocytopenia Heart Healthy Diet
[2016-08-13] MEDS ORDERED: Dextrose 50% SYRINGE Inj (50 ml) IV STA (00:23)
[2016-08-13 06:27] LABS: BASO % 0.1 % (0.0-2.0); EOS % 0.1 % (0.0-4.0); LYMPH # 0.2 K/uL (1.0-4.3); LYMPH % 2.8 % (20.0-40.0); MEAN CELL VOLUME 92.1 fL (81.0-99.0); MEAN CORPUSCULAR HEMOGLOBIN 30.9 pg (27.0-31.0); MEAN CORPUSCULAR HGB CONC 33.6 g/dL (33.0-37.0); MEAN PLATELET VOLUME 8.5 fL (7.2-11.7); MONO # 0.2 K/uL (0.0-0.8); MONO % 2.5 % (0.0-10.0); NRBC % 0.2 % (0.0-2.0); PLATELET COUNT 133 K/uL (130-400); RED CELL DISTRIBUTION WIDTH 18.6 % (11.5-14.5); WHITE BLOOD COUNT 7.3 K/uL (4.8-10.8)
[2016-08-13 06:38] LABS: POTASSIUM 5.1 mmol/L (3.6-5.2)
[2016-08-13 06:40] LABS: ALB/GLOB RATIO 0.8 (1.0-2.1); BILIRUBIN,TOTAL 2.5 mg/dL (0.2-1.3); PHOSPHOROUS 3.6 mg/dL (2.5-4.5); TOTAL PROTEIN 7.2 g/dL (6.3-8.3)
[2016-08-13 06:41] LABS: CALCIUM 8.7 mg/dl (8.6-10.4)
--- NOTE | 2016-08-13 06:58 | CP.PCM.PN ---
Subjective - Date & Time of Evaluation Date of Evaluation: 08/13/16 Time of Evaluation: 06:56 - Subjective Subjective: Thoracic Surgery - Dr. Soto Pt S&E. Pt seen multiple times throughout the night. Initially pt was hypotensive post-operatively, her pressures have since improved. She recieved a total of 3U PRBC, 1 Plts, and DDAVP overnight. Right Chest tube is to suction w/ 1350cc sanguinous drainage since surgery. Pt has had some confusion since the surgery as per the daughter. A Repeat CXR was done to compare to immediately post-op and this was unchanged. Objective - Vital Signs/Intake and Output Vital Signs (last 24 hours): Temp Pulse Resp BP Pulse Ox 97.9 F 71 16 122/45 L 100 08/13/16 04:00 08/13/16 06:00 08/13/16 06:00 08/13/16 06:00 08/13/16 06:00 Intake and Output: 08/12/16 08/13/16 18:59 06:59 Intake Total 1600 700 Output Total 1140 200 Balance 460 500 - Medications Medications: Current Medications Aspirin (Aspirin Chewable) 81 mg PO DAILY [facility] Last Admin: 08/11/16 09:34 Dose: 81 mg Bisoprolol Fumarate (Zebeta) 5 mg PO ACB [facility] Last Admin: 08/11/16 09:33 Dose: Not Given Calcium Acetate (Phoslo) 667 mg PO TIDCC [facility] Last Admin: 08/12/16 17:18 Dose: Not Given Diphenhydramine HCl (Benadryl) 25 mg PO Q4H PRN PRN Reason: allergies Epoetin Sly (Procrit) 10,000 unit IV MWF [facility] Last Admin: 08/12/16 17:23 Dose: 10,000 unit Hydrocortisone Sodium Succinate (Solu-Cortef) 50 mg IV Q8H [facility] Last Admin: 08/13/16 05:50 Dose: 50 mg Cefepime HCl (Maxipime Iv 1 Gm Premix) 50 mls @ 100 mls/hr IVPB DAILY [facility] Last Admin: 08/12/16 11:06 Dose: 100 mls/hr Levothyroxine Sodium (Levothyroxine) 300 mcg IV DAILY [facility] Pantoprazole Sodium (Protonix Ec Tab) 40 mg PO DAILY [facility] Last Admin: 08/12/16 10:18 Dose: Not Given Rosuvastatin Calcium (Crestor) 10 mg PO HS [facility] Last Admin: 08/12/16 22:12 Dose: Not Given - Labs Labs: 08/13/16 06:19 08/13/16 06:19 PT 14.7 SECONDS (9.7-12.2) H 08/12/16 06:00 INR 1.3 08/12/16 06:00 APTT 40 SECONDS (21-34) H 08/12/16 06:00 - Constitutional Appears: No Acute Distress - Head Exam Head Exam: ATRAUMATIC, NORMAL INSPECTION, NORMOCEPHALIC - Respiratory Exam Respiratory Exam: NORMAL BREATHING PATTERN. absent: Respiratory Distress Additional comments: R CT to suction, 1350cc sanguinous drainage since OR - Cardiovascular Exam Cardiovascular Exam: REGULAR RHYTHM - Neurological Exam Neurological Exam: Alert, Awake. absent: Oriented x3 - Skin Skin Exam: Dry, Intact Assessment and Plan - Assessment and Plan (Free Text) Assessment: 75 yo F w/ hydropneumothorax after thoracentesis, now s/p R CT placement POD #1 -Continue R CT to wall suction, monitor output -F/U CXR - last night is unchanged from prior -Monitor hemodynamics -Consider Ofirmev for pain -Continue care as per ICU/PMD DW Dr Brittany Waldron PGY2
[2016-08-13 09:21] LABS: NEUTROPHIL 88 % (50-75); REACTIVE LYMPHOCYTES 1 % (0-0); TOTAL CELLS COUNTED 100
[2016-08-13 09:22] LABS: GIANT PLATELETS PRESENT; LARGE PLATELETS PRESENT
--- NOTE | 2016-08-13 09:23 | CP.PCM.PN ---
Subjective - Date & Time of Evaluation Date of Evaluation: 08/13/16 Time of Evaluation: :21 - Subjective Subjective: Notes reviewed S/p complicated chest tube insertion pt was hypotensive post-operatively, pressures have since improved. She recieved a total of 3U PRBC, 1 Plts, and DDAVP overnight. Right Chest tube is to suction w/ 1350cc sanguinous drainage since surgery. Pt has had some confusion since the surgery as per the daughter. A Repeat CXR was done to compare to immediately post-op and this was unchanged. Could not receive much dialysis 08/12 due to hypotension Family at bedside, case discussed - considerations for dialysis today discussed Objective - Vital Signs/Intake and Output Vital Signs (last 24 hours): Temp Pulse Resp BP Pulse Ox 98.3 F 73 16 120/45 L 98 08/13/16 08:00 08/13/16 08:00 08/13/16 08:00 08/13/16 08:00 08/13/16 08:00 Intake and Output: 08/13/16 08/13/16 06:59 18:59 Intake Total 997 Output Total 200 Balance 797 - Medications Medications: Current Medications Aspirin (Aspirin Chewable) 81 mg PO DAILY [facility] Last Admin: 08/11/16 09:34 Dose: 81 mg Bisoprolol Fumarate (Zebeta) 5 mg PO ACB [facility] Last Admin: 08/11/16 09:33 Dose: Not Given Calcium Acetate (Phoslo) 667 mg PO TIDCC [facility] Last Admin: 08/12/16 17:18 Dose: Not Given Diphenhydramine HCl (Benadryl) 25 mg PO Q4H PRN PRN Reason: allergies Epoetin Sly (Procrit) 10,000 unit IV MWF [facility] Last Admin: 08/12/16 17:23 Dose: 10,000 unit Hydrocortisone Sodium Succinate (Solu-Cortef) 50 mg IV Q8H [facility] Last Admin: 08/13/16 05:50 Dose: 50 mg Cefepime HCl (Maxipime Iv 1 Gm Premix) 50 mls @ 100 mls/hr IVPB DAILY [facility] Last Admin: 08/12/16 11:06 Dose: 100 mls/hr Levothyroxine Sodium (Levothyroxine) 300 mcg IV DAILY [facility] Pantoprazole Sodium (Protonix Ec Tab) 40 mg PO DAILY [facility] Last Admin: 08/12/16 10:18 Dose: Not Given Rosuvastatin Calcium (Crestor) 10 mg PO HS [facility] Last Admin: 08/12/16 22:12 Dose: Not Given - Labs Labs: 08/13/16 06:19 08/13/16 06:19 PT 14.7 SECONDS (9.7-12.2) H 08/12/16 06:00 INR 1.3 08/12/16 06:00 APTT 40 SECONDS (21-34) H 08/12/16 06:00 - Constitutional Appears: No Acute Distress, Chronically Ill - Head Exam Head Exam: ATRAUMATIC, NORMAL INSPECTION - ENT Exam ENT Exam: Mucous Membranes Moist, Normal Oropharynx - Respiratory Exam Respiratory Exam: Rhonchi. absent: Rales - Cardiovascular Exam Cardiovascular Exam: +S1, +S2. absent: JVD, Rubs - GI/Abdominal Exam GI & Abdominal Exam: Normal Bowel Sounds - Extremities Exam Extremities Exam: absent: Pedal Edema, Tenderness - Neurological Exam Neurological Exam: Awake. absent: Oriented x3 Assessment and Plan (1) ESRD (end stage renal disease) on dialysis Status: Acute (2) Hydropneumothorax Status: Acute (3) S/P thoracentesis Status: Acute - Assessment and Plan (Free Text) Plan: Hemodynamically stable with transfusion support Electrolytes stable Monitor in ICU To consider dialysis today if patient remains stable, discussed with icu team
[2016-08-13] MEDS: Levothyroxine 500 mcg (0.5 mg) Inj IV SCH (09:40)
[2016-08-13] MEDS: Cefepime IV 1 gm in Dextrose 50 ML IVPB SCH (09:45)
--- NOTE | 2016-08-13 09:54 | CP.CCUPN ---
CCU Subjective - Physician Review Events Since Last Encounter (Free Text): 08/13/16 09:53 Patient last night had a significant amount of bleeding in the chest tube. Since midnight of the bleeding slowed down. Patient received intravenous thyroxine. The heartbeat got better and blood pressure is better now. But the patient is somewhat confused right now, also having some altered mental status. is awake and responding, but not agonizing. Not able to eat at this time. Vital signs reviewed Labs reviewed CCU Objective - Vital Signs / Intake & Output Vital Signs (Last 4 hours): Vital Signs Temp Pulse Resp BP Pulse Ox 08/13/16 08:00 98.3 F 73 16 120/45 L 98 08/13/16 07:00 71 15 125/43 L 100 08/13/16 06:00 71 16 122/45 L 100 Intake and Output (Last 8hrs): Intake & Output 08/12/16 08/13/16 08/13/16 22:59 06:59 14:59 Intake Total 1225 947 Output Total 1220 120 Balance 5 827 Weight 103 lb 3.2 oz Intake: Intake, IV Amount 200 Right Hand 200 Oral 0 0 Blood Product 975 947 Red Blood Cells Cpd As1 325 Lr Unit [id number] Red Blood Cells Cpd As1 325 Lr Unit [id number] Other 50 Red Blood Cells Cpd As1 50 Lr Unit [id number] Output: Chest Tube Drainage 1220 120 Right Anterior Chest 1220 120 Urine 0 0 Urine, Voided 0 0 - Physical Exam Narrative Physical Exam (Free Text): 08/13/16 09:54 Chest good air entry bilaterally. Decreased on the right lung. Chest tube noted Head: Positive for: Atraumatic, Normocephalic Extroacular Muscles: Positive for: EOMI Conjunctiva: Positive for: Normal Mouth: Positive for: Dry Neck: Positive for: Normal Range of Motion Respiratory/Chest: Positive for: Decreased Breath Sounds Cardiovascular: Positive for: Bradycardic Abdomen: Positive for: Normal Bowel Sounds. Negative for: Tenderness, Distention Upper Extremity: Positive for: Normal Inspection Lower Extremity: Positive for: Normal Inspection, Edema, NORMAL PULSES. Negative for: CALF TENDERNESS Neurological: Positive for: GCS=15, CN II-XII Intact Skin: Positive for: Warm, Dry Psychiatric: Positive for: Alert - Medications Active Medications: Active Medications Generic Name Dose Route Start Last Admin Trade Name Freq PRN Reason Stop Dose Admin Aspirin 81 mg 08/09/16 10:00 08/11/16 09:34 Aspirin Chewable PO 81 mg DAILY [facility] Administration Bisoprolol Fumarate 5 mg 08/09/16 07:30 08/11/16 09:33 Zebeta PO Not Given ACB [facility] Calcium Acetate 667 mg 08/08/16 17:00 08/13/16 08:30 Phoslo PO Not Given TIDCC [facility] Diphenhydramine HCl 25 mg 08/08/16 16:53 Benadryl PO Q4H PRN allergies Epoetin Sly 10,000 unit 08/12/16 09:00 08/12/16 17:23 Procrit IV 10,000 unit MWF [facility] Administration Hydrocortisone Sodium Succinate 50 mg 08/12/16 22:30 08/13/16 05:50 Solu-Cortef IV 50 mg Q8H [facility] Administration Cefepime HCl 50 mls @ 100 mls/hr 08/10/16 10:00 08/13/16 09:45 Maxipime Iv 1 Gm Premix IVPB 100 mls/hr DAILY [facility] Administration Levothyroxine Sodium 300 mcg 08/13/16 10:00 08/13/16 09:40 Levothyroxine IV 300 mcg DAILY [facility] Administration Pantoprazole Sodium 40 mg 08/13/16 10:00 Protonix Inj IVP DAILY [facility] Rosuvastatin Calcium 10 mg 08/09/16 22:00 08/12/16 22:12 Crestor PO Not Given HS [facility] - Patient Studies Lab Studies: Microbiology Studies 08/12/16 14:00 Gram Stain - Final Pleural Fluid Fungal Culture - Preliminary Lab Studies 08/13/16 08/13/16 08/13/16 Range/Units 07:40 06:19 01:38 WBC 7.3 (4.8-10.8) K/uL RBC 3.15 L (3.80-5.20) Mil/uL Hgb 9.7 L (11.0-16.0) g/dL Hct 29.0 L (34.0-47.0) % MCV 92.1 (81.0-99.0) fL MCH 30.9 (27.0-31.0) pg MCHC 33.6 (33.0-37.0) g/dL RDW 18.6 H (11.5-14.5) % Plt Count 133 (130-400) K/uL MPV 8.5 (7.2-11.7) fL Neut % (Auto) 94.5 H (50.0-75.0) % Lymph % (Auto) 2.8 L (20.0-40.0) % Spencer % (Auto) 2.5 (0.0-10.0) % Eos % (Auto) 0.1 (0.0-4.0) % Baso % (Auto) 0.1 (0.0-2.0) % Neut # 6.9 (1.8-7.0) K/uL Lymph # 0.2 L (1.0-4.3) K/uL Spencer # 0.2 (0.0-0.8) K/uL Eos # 0.0 (0.0-0.7) K/uL Baso # 0.0 (0.0-0.2) K/uL Neutrophils % (Manual) 88 H (50-75) % Band Neutrophils % 7 H (0-2) % Lymphocytes % (Manual) 2 L (20-40) % Reactive Lymphs % 1 H (0-0) % Monocytes % (Manual) 2 (0-10) % Platelet Estimate Normal (NORMAL) Large Platelets Present Giant Platelets Present Polychromasia Slight Hypochromasia (manual) Slight Poikilocytosis (manual Slight Anisocytosis (manual) Slight Ovalocytes Slight Wynot Cells Slight Schistocytes Slight Sodium 138 (132-148) mmol/L Potassium 5.1 (3.6-5.2) mmol/L Chloride 98 (98-107) mmol/L Carbon Dioxide 27 (22-30) mmol/L Anion Gap 18 (10-20) BUN 34 H (7-17) mg/dL Creatinine 2.4 H (0.7-1.2) MG/DL Est GFR ( Amer) 24 Est GFR (Non-Af Amer) 20 POC Glucose (mg/dL) 127 H 144 H (65-110) mg/dL Random Glucose 117 H (65-105) mg/dL Calcium 8.7 (8.6-10.4) mg/dl Phosphorus 3.6 (2.5-4.5) mg/dL Magnesium 2.0 (1.6-2.3) mg/dL Ferritin ng/mL Total Bilirubin 2.5 H (0.2-1.3) mg/dL AST 46 H D (14-36) U/L ALT 14 (9-52) U/L Alkaline Phosphatase 142 H D (38-126) U/L Total Protein 7.2 (6.3-8.3) g/dL Albumin 3.2 L (3.5-5.0) g/dL Globulin 4.0 H (2.2-3.9) gm/dL Albumin/Globulin Ratio 0.8 L (1.0-2.1) TSH 3rd Generation (0.46-4.68) mIU/L Fluid Source Fluid Appearance (CLEAR) Fluid WBC (0.0-300.0) /mm3 Fluid RBC (0.0-0.0) /mm3 Fluid Tot Cell Count (0-0) Fluid Neutrophils (0-0) % Fluid Lymphocytes (0-0) % Fld Monocyte/Macrophag (0-0) % Fluid Comment Blood Type Antibody Screen 08/13/16 08/12/16 08/12/16 Range/Units 00:13 22:06 20:11 WBC 7.3 (4.8-10.8) K/uL RBC 2.68 L (3.80-5.20) Mil/uL Hgb 8.3 L (11.0-16.0) g/dL Hct 25.0 L (34.0-47.0) % MCV 93.4 D (81.0-99.0) fL MCH 31.1 H (27.0-31.0) pg MCHC 33.3 (33.0-37.0) g/dL RDW 20.1 H (11.5-14.5) % Plt Count 71 L (130-400) K/uL MPV 9.5 (7.2-11.7) fL Neut % (Auto) (50.0-75.0) % Lymph % (Auto) (20.0-40.0) % Spencer % (Auto) (0.0-10.0) % Eos % (Auto) (0.0-4.0) % Baso % (Auto) (0.0-2.0) % Neut # (1.8-7.0) K/uL Lymph # (1.0-4.3) K/uL Spencer # (0.0-0.8) K/uL Eos # (0.0-0.7) K/uL Baso # (0.0-0.2) K/uL Neutrophils % (Manual) (50-75) % Band Neutrophils % (0-2) % Lymphocytes % (Manual) (20-40) % Reactive Lymphs % (0-0) % Monocytes % (Manual) (0-10) % Platelet Estimate (NORMAL) Large Platelets Giant Platelets Polychromasia Hypochromasia (manual) Poikilocytosis (manual Anisocytosis (manual) Ovalocytes Wynot Cells Schistocytes Sodium (132-148) mmol/L Potassium (3.6-5.2) mmol/L Chloride (98-107) mmol/L Carbon Dioxide (22-30) mmol/L Anion Gap (10-20) BUN (7-17) mg/dL Creatinine (0.7-1.2) MG/DL Est GFR ( Amer) Est GFR (Non-Af Amer) POC Glucose (mg/dL) 76 83 (65-110) mg/dL Random Glucose (65-105) mg/dL Calcium (8.6-10.4) mg/dl Phosphorus (2.5-4.5) mg/dL Magnesium (1.6-2.3) mg/dL Ferritin ng/mL Total Bilirubin (0.2-1.3) mg/dL AST (14-36) U/L ALT (9-52) U/L Alkaline Phosphatase (38-126) U/L Total Protein (6.3-8.3) g/dL Albumin (3.5-5.0) g/dL Globulin (2.2-3.9) gm/dL Albumin/Globulin Ratio (1.0-2.1) TSH 3rd Generation (0.46-4.68) mIU/L Fluid Source Fluid Appearance (CLEAR) Fluid WBC (0.0-300.0) /mm3 Fluid RBC (0.0-0.0) /mm3 Fluid Tot Cell Count (0-0) Fluid Neutrophils (0-0) % Fluid Lymphocytes (0-0) % Fld Monocyte/Macrophag (0-0) % Fluid Comment Blood Type Antibody Screen 08/12/16 08/12/16 08/12/16 Range/Units 16:41 15:26 13:37 WBC (4.8-10.8) K/uL RBC (3.80-5.20) Mil/uL Hgb (11.0-16.0) g/dL Hct (34.0-47.0) % MCV (81.0-99.0) fL MCH (27.0-31.0) pg MCHC (33.0-37.0) g/dL RDW (11.5-14.5) % Plt Count (130-400) K/uL MPV (7.2-11.7) fL Neut % (Auto) (50.0-75.0) % Lymph % (Auto) (20.0-40.0) % Spencer % (Auto) (0.0-10.0) % Eos % (Auto) (0.0-4.0) % Baso % (Auto) (0.0-2.0) % Neut # (1.8-7.0) K/uL Lymph # (1.0-4.3) K/uL Spencer # (0.0-0.8) K/uL Eos # (0.0-0.7) K/uL Baso # (0.0-0.2) K/uL Neutrophils % (Manual) (50-75) % Band Neutrophils % (0-2) % Lymphocytes % (Manual) (20-40) % Reactive Lymphs % (0-0) % Monocytes % (Manual) (0-10) % Platelet Estimate (NORMAL) Large Platelets Giant Platelets Polychromasia Hypochromasia (manual) Poikilocytosis (manual Anisocytosis (manual) Ovalocytes Wynot Cells Schistocytes Sodium (132-148) mmol/L Potassium (3.6-5.2) mmol/L Chloride (98-107) mmol/L Carbon Dioxide (22-30) mmol/L Anion Gap (10-20) BUN (7-17) mg/dL Creatinine (0.7-1.2) MG/DL Est GFR ( Amer) Est GFR (Non-Af Amer) POC Glucose (mg/dL) 99 128 H (65-110) mg/dL Random Glucose (65-105) mg/dL Calcium (8.6-10.4) mg/dl Phosphorus (2.5-4.5) mg/dL Magnesium (1.6-2.3) mg/dL Ferritin ng/mL Total Bilirubin (0.2-1.3) mg/dL AST (14-36) U/L ALT (9-52) U/L Alkaline Phosphatase (38-126) U/L Total Protein (6.3-8.3) g/dL Albumin (3.5-5.0) g/dL Globulin (2.2-3.9) gm/dL Albumin/Globulin Ratio (1.0-2.1) TSH 3rd Generation (0.46-4.68) mIU/L Fluid Source Pleural Fluid Appearance Bloody (CLEAR) Fluid WBC 9602.0 H (0.0-300.0) /mm3 Fluid RBC 0450987.0 H (0.0-0.0) /mm3 Fluid Tot Cell Count 100 H (0-0) Fluid Neutrophils 80.0 H (0-0) % Fluid Lymphocytes 17.0 H (0-0) % Fld Monocyte/Macrophag 3 H (0-0) % Fluid Comment TEST NOT PERFORMED Blood Type Antibody Screen 08/12/16 08/12/16 08/12/16 Range/Units 09:58 08:34 06:05 WBC 10.5 (4.8-10.8) K/uL RBC 2.24 L (3.80-5.20) Mil/uL Hgb 7.5 L (11.0-16.0) g/dL Hct 22.6 L (34.0-47.0) % MCV 101.0 H (81.0-99.0) fL MCH 33.5 H (27.0-31.0) pg MCHC 33.1 (33.0-37.0) g/dL RDW 18.2 H (11.5-14.5) % Plt Count 87 L (130-400) K/uL MPV 9.3 (7.2-11.7) fL Neut % (Auto) (50.0-75.0) % Lymph % (Auto) (20.0-40.0) % Spencer % (Auto) (0.0-10.0) % Eos % (Auto) (0.0-4.0) % Baso % (Auto) (0.0-2.0) % Neut # (1.8-7.0) K/uL Lymph # (1.0-4.3) K/uL Spencer # (0.0-0.8) K/uL Eos # (0.0-0.7) K/uL Baso # (0.0-0.2) K/uL Neutrophils % (Manual) (50-75) % Band Neutrophils % (0-2) % Lymphocytes % (Manual) (20-40) % Reactive Lymphs % (0-0) % Monocytes % (Manual) (0-10) % Platelet Estimate (NORMAL) Large Platelets Giant Platelets Polychromasia Hypochromasia (manual) Poikilocytosis (manual Anisocytosis (manual) Ovalocytes Melia Cells Schistocytes Sodium (132-148) mmol/L Potassium (3.6-5.2) mmol/L Chloride (98-107) mmol/L Carbon Dioxide (22-30) mmol/L Anion Gap (10-20) BUN (7-17) mg/dL Creatinine (0.7-1.2) MG/DL Est GFR ( Amer) Est GFR (Non-Af Amer) POC Glucose (mg/dL) (65-110) mg/dL Random Glucose (65-105) mg/dL Calcium (8.6-10.4) mg/dl Phosphorus (2.5-4.5) mg/dL Magnesium (1.6-2.3) mg/dL Ferritin 428.0 ng/mL Total Bilirubin (0.2-1.3) mg/dL AST (14-36) U/L ALT (9-52) U/L Alkaline Phosphatase (38-126) U/L Total Protein (6.3-8.3) g/dL Albumin (3.5-5.0) g/dL Globulin (2.2-3.9) gm/dL Albumin/Globulin Ratio (1.0-2.1) TSH 3rd Generation 76.70 H (0.46-4.68) mIU/L Fluid Source Fluid Appearance (CLEAR) Fluid WBC (0.0-300.0) /mm3 Fluid RBC (0.0-0.0) /mm3 Fluid Tot Cell Count (0-0) Fluid Neutrophils (0-0) % Fluid Lymphocytes (0-0) % Fld Monocyte/Macrophag (0-0) % Fluid Comment Blood Type B POSITIVE Antibody Screen Negative Laboratory Results - last 24 hr 08/12/16 08/12/16 08/12/16 06:05 08:34 09:58 WBC 10.5 RBC 2.24 L Hgb 7.5 L Hct 22.6 L MCV 101.0 H MCH 33.5 H MCHC 33.1 RDW 18.2 H Plt Count 87 L MPV 9.3 Neut % (Auto) Lymph % (Auto) Spencer % (Auto) Eos % (Auto) Baso % (Auto) Neut # Lymph # Spencer # Eos # Baso # Neutrophils % (Manual) Band Neutrophils % Lymphocytes % (Manual) Reactive Lymphs % Monocytes % (Manual) Platelet Estimate Large Platelets Giant Platelets Polychromasia Hypochromasia (manual) Poikilocytosis (manual Anisocytosis (manual) Ovalocytes Wynot Cells Schistocytes Sodium Potassium Chloride Carbon Dioxide Anion Gap BUN Creatinine Est GFR ( Amer) Est GFR (Non-Af Amer) POC Glucose (mg/dL) Random Glucose Calcium Phosphorus Magnesium Ferritin 428.0 Total Bilirubin AST ALT Alkaline Phosphatase Total Protein Albumin Globulin Albumin/Globulin Ratio TSH 3rd Generation 76.70 H Fluid Source Fluid Appearance Fluid WBC Fluid RBC Fluid Tot Cell Count Fluid Neutrophils Fluid Lymphocytes Fld Monocyte/Macrophag Fluid Comment Blood Type B POSITIVE Antibody Screen Negative 08/12/16 08/12/16 08/12/16 13:37 15:26 16:41 WBC RBC Hgb Hct MCV MCH MCHC RDW Plt Count MPV Neut % (Auto) Lymph % (Auto) Spencer % (Auto) Eos % (Auto) Baso % (Auto) Neut # Lymph # Spencer # Eos # Baso # Neutrophils % (Manual) Band Neutrophils % Lymphocytes % (Manual) Reactive Lymphs % Monocytes % (Manual) Platelet Estimate Large Platelets Giant Platelets Polychromasia Hypochromasia (manual) Poikilocytosis (manual Anisocytosis (manual) Ovalocytes Melia Cells Schistocytes Sodium Potassium Chloride Carbon Dioxide Anion Gap BUN Creatinine Est GFR ( Amer) Est GFR (Non-Af Amer) POC Glucose (mg/dL) 128 H 99 Random Glucose Calcium Phosphorus Magnesium Ferritin Total Bilirubin AST ALT Alkaline Phosphatase Total Protein Albumin Globulin Albumin/Globulin Ratio TSH 3rd Generation Fluid Source Pleural Fluid Appearance Bloody Fluid WBC 9602.0 H Fluid RBC 4312221.0 H Fluid Tot Cell Count 100 H Fluid Neutrophils 80.0 H Fluid Lymphocytes 17.0 H Fld Monocyte/Macrophag 3 H Fluid Comment TEST NOT PERFORMED Blood Type Antibody Screen 08/12/16 08/12/16 08/13/16 20:11 22:06 00:13 WBC 7.3 RBC 2.68 L Hgb 8.3 L Hct 25.0 L MCV 93.4 D MCH 31.1 H MCHC 33.3 RDW 20.1 H Plt Count 71 L MPV 9.5 Neut % (Auto) Lymph % (Auto) Spencer % (Auto) Eos % (Auto) Baso % (Auto) Neut # Lymph # Spencer # Eos # Baso # Neutrophils % (Manual) Band Neutrophils % Lymphocytes % (Manual) Reactive Lymphs % Monocytes % (Manual) Platelet Estimate Large Platelets Giant Platelets Polychromasia Hypochromasia (manual) Poikilocytosis (manual Anisocytosis (manual) Ovalocytes Wynot Cells Schistocytes Sodium Potassium Chloride Carbon Dioxide Anion Gap BUN Creatinine Est GFR ( Amer) Est GFR (Non-Af Amer) POC Glucose (mg/dL) 83 76 Random Glucose Calcium Phosphorus Magnesium Ferritin Total Bilirubin AST ALT Alkaline Phosphatase Total Protein Albumin Globulin Albumin/Globulin Ratio TSH 3rd Generation Fluid Source Fluid Appearance Fluid WBC Fluid RBC Fluid Tot Cell Count Fluid Neutrophils Fluid Lymphocytes Fld Monocyte/Macrophag Fluid Comment Blood Type Antibody Screen 08/13/16 08/13/16 08/13/16 01:38 06:19 07:40 WBC 7.3 RBC 3.15 L Hgb 9.7 L Hct 29.0 L MCV 92.1 MCH 30.9 MCHC 33.6 RDW 18.6 H Plt Count 133 MPV 8.5 Neut % (Auto) 94.5 H Lymph % (Auto) 2.8 L Spencer % (Auto) 2.5 Eos % (Auto) 0.1 Baso % (Auto) 0.1 Neut # 6.9 Lymph # 0.2 L Spencer # 0.2 Eos # 0.0 Baso # 0.0 Neutrophils % (Manual) 88 H Band Neutrophils % 7 H Lymphocytes % (Manual) 2 L Reactive Lymphs % 1 H Monocytes % (Manual) 2 Platelet Estimate Normal Large Platelets Present Giant Platelets Present Polychromasia Slight Hypochromasia (manual) Slight Poikilocytosis (manual Slight Anisocytosis (manual) Slight Ovalocytes Slight Melia Cells Slight Schistocytes Slight Sodium 138 Potassium 5.1 Chloride 98 Carbon Dioxide 27 Anion Gap 18 BUN 34 H Creatinine 2.4 H Est GFR ( Amer) 24 Est GFR (Non-Af Amer) 20 POC Glucose (mg/dL) 144 H 127 H Random Glucose 117 H Calcium 8.7 Phosphorus 3.6 Magnesium 2.0 Ferritin Total Bilirubin 2.5 H AST 46 H D ALT 14 Alkaline Phosphatase 142 H D Total Protein 7.2 Albumin 3.2 L Globulin 4.0 H Albumin/Globulin Ratio 0.8 L TSH 3rd Generation Fluid Source Fluid Appearance Fluid WBC Fluid RBC Fluid Tot Cell Count Fluid Neutrophils Fluid Lymphocytes Fld Monocyte/Macrophag Fluid Comment Blood Type Antibody Screen Fingerstick Blood Sugar Results: 144 Critical Care Progress Note - Nutrition Nutrition: Nutrition Category Date Time Status NPO Diet [DIET] Diets 08/13/16 Breakfast Active Assessment/Plan (1) ESRD (end stage renal disease) on dialysis Assessment and plan: end-stage renal disease on dialysis. Right sided significant bleeding. Most likely posterior thoracentesis, chest tube status post. Bleeding noted. We'll continue to monitor the H&H, possible hemodialysis today Current Visit: Yes Status: Acute (2) Hypothermia Current Visit: Yes Status: Acute (3) Pleural effusion Current Visit: No Status: Acute (4) S/P thoracentesis Current Visit: No Status: Acute
[2016-08-13] MEDS ORDERED: Levothyroxine 500 mcg (0.5 mg) Inj IV SCH (10:00)
--- NOTE | 2016-08-13 11:24 | RAD ---
HISTORY: s/p chest tube COMPARISON: 08/12/16 FINDINGS: LUNGS: Re- demonstrated right-sided chest tube. Questionable small right basilar hydro pneumothorax with persistent consolidation right lung base. Mild left basilar atelectasis PLEURA: No significant pleural effusion identified, no pneumothorax apparent. CARDIOVASCULAR: Cardiomegaly with sternotomy wires and CABG clips unchanged OSSEOUS STRUCTURES: No significant abnormalities. VISUALIZED UPPER ABDOMEN: Normal. OTHER FINDINGS: No change left axillary stent IMPRESSION: Re- demonstrated right-sided chest tube. Questionable small right basilar hydro pneumothorax with persistent consolidation right lung base. Mild left basilar atelectasis
--- NOTE | 2016-08-13 19:25 | CP.PCM.PN ---
Subjective - Date & Time of Evaluation Date of Evaluation: 08/13/16 Time of Evaluation: 10:30 - Subjective Subjective: Patient without cardiac events Physical Exam - Constitutional Appears: No Acute Distress - Head Exam Head Exam: NORMOCEPHALIC - Eye Exam Eye Exam: Normal appearance - ENT Exam ENT Exam: Mucous Membranes Moist - Respiratory Exam Respiratory Exam: Decreased Breath Sounds - Cardiovascular Exam Cardiovascular Exam: +S1, +S2 - GI/Abdominal Exam GI & Abdominal Exam: Soft - Extremities Exam Additional comments: ulcers - Neurological Exam Neurological exam: Alert - Psychiatric Exam Psychiatric exam: Normal Mood - Skin Skin Exam: Dry, Normal Color Objective - Vital Signs/Intake and Output Vital Signs (last 24 hours): Temp Pulse Resp BP Pulse Ox 98.1 F 76 19 127/57 L 98 08/13/16 16:00 08/13/16 17:00 08/13/16 17:00 08/13/16 17:00 08/13/16 17:00 Intake and Output: 08/13/16 08/14/16 18:59 06:59 Intake Total 50 Balance 50 - Medications Medications: Current Medications Aspirin (Aspirin Chewable) 81 mg PO DAILY [facility] Last Admin: 08/11/16 09:34 Dose: 81 mg Bisoprolol Fumarate (Zebeta) 5 mg PO ACB [facility] Last Admin: 08/11/16 09:33 Dose: Not Given Calcium Acetate (Phoslo) 667 mg PO TIDCC [facility] Last Admin: 08/13/16 17:23 Dose: Not Given Diphenhydramine HCl (Benadryl) 25 mg PO Q4H PRN PRN Reason: allergies Epoetin Sly (Procrit) 10,000 unit IV MWF [facility] Last Admin: 08/12/16 17:23 Dose: 10,000 unit Hydrocortisone Sodium Succinate (Solu-Cortef) 50 mg IV Q8H [facility] Last Admin: 08/13/16 15:00 Dose: 50 mg Cefepime HCl (Maxipime Iv 1 Gm Premix) 50 mls @ 100 mls/hr IVPB DAILY [facility] Last Admin: 08/13/16 09:45 Dose: 100 mls/hr Dextrose (Dextrose 5% In Water) 500 mls @ 30 mls/hr IV .[id number] [facility] Stop: 08/14/16 11:54 Levothyroxine Sodium (Levothyroxine) 300 mcg IV DAILY [facility] Last Admin: 08/13/16 09:40 Dose: 300 mcg Pantoprazole Sodium (Protonix Inj) 40 mg IVP DAILY [facility] Last Admin: 08/13/16 09:52 Dose: 40 mg Rosuvastatin Calcium (Crestor) 10 mg PO HS [facility] Last Admin: 08/12/16 22:12 Dose: Not Given - Labs Labs: 08/13/16 06:19 08/13/16 06:19 PT 14.7 SECONDS (9.7-12.2) H 08/12/16 06:00 INR 1.3 08/12/16 06:00 APTT 40 SECONDS (21-34) H 08/12/16 06:00 Assessment and Plan - Assessment and Plan (Free Text) Assessment: Neuro: Upon admission patient was mild AMS, currently more oriented. Was hypothermic, normal temperature now. CV: -CHF - Lasix 40mg PO daily -Hx CAD: ASA, Crestor -HTN - Continue Zebeta Pulm: -Right sided recurrent pleural effusions - Dr. Walker consulted for thoracentesis - help appreciated - 1800mL was removed. -This morning CXR showed increased fluid. Ordered CT Chest- revealed right sided hydropneumothorax. Patient is comfortable , in no respiratory distress, 98% on 2L NC. CT was consulted - Dr. Soto -VATS w/ Talc pleurodesis vs chest tube vs Pleur-X catheter. Family agreed to chest tube only. Plan for OR today at 11am. Renal: -ESRD on HD MWF -Continued Elizabeth and Dr. Mcfarland - help appreciated As per Dr. Mcfarland, he will increase ultrafiltration on next dialysis. Heme: Hgb downtrending currently: 7.5 Patient will be transfused 1 unit prior to OR, 1 unit after during dialysis. Endo: - DM: Upon admission patient was hypoglycemic - Hypothyroidism: Synthroid 150 mcg PO ACB ID: Afebrile, no white count Initial UA showed UTI- Cefepime Q12H No growth on urine or blood cultures Left foot ulcer - f/u wound care Prophylaxis: GI: Protonix 40mg PO daily -held DVT: SCDs, VTE contraindicated due to thrombocytopenia Heart Healthy Diet
[2016-08-13] MEDS ORDERED: MethylPREDNISolone 40 mg Vial IVP SCH (20:30)
[2016-08-13 23:34] LABS: BASO # 0.1 K/uL (0.0-0.2); EOS % 0.2 % (0.0-4.0); HEMATOCRIT 29.5 % (34.0-47.0); LYMPH # 0.4 K/uL (1.0-4.3); LYMPH % 3.7 % (20.0-40.0); MEAN CELL VOLUME 92.8 fL (81.0-99.0); MEAN CORPUSCULAR HGB CONC 33.4 g/dL (33.0-37.0); MONO # 0.6 K/uL (0.0-0.8); MONO % 5.6 % (0.0-10.0); NRBC % 0.2 % (0.0-2.0); PLATELET COUNT 149 K/uL (130-400)
[2016-08-13 23:41] LABS: POTASSIUM 5.3 mmol/L (3.6-5.2)
[2016-08-13 23:43] LABS: ALB/GLOB RATIO 0.8 (1.0-2.1); BILIRUBIN,TOTAL 2.2 mg/dL (0.2-1.3); CALCIUM 8.5 mg/dl (8.6-10.4); TOTAL PROTEIN 7.2 g/dL (6.3-8.3)
[2016-08-14 00:53] LABS: NEUTROPHIL 89 % (50-75); TOTAL CELLS COUNTED 100
[2016-08-14 00:54] LABS: LARGE PLATELETS PRESENT
[2016-08-14 06:36] LABS: BASO % 0.3 % (0.0-2.0); HEMATOCRIT 29.3 % (34.0-47.0); LYMPH # 0.4 K/uL (1.0-4.3); LYMPH % 4.1 % (20.0-40.0); MEAN CELL VOLUME 93.2 fL (81.0-99.0); MEAN CORPUSCULAR HEMOGLOBIN 31.1 pg (27.0-31.0); MEAN CORPUSCULAR HGB CONC 33.4 g/dL (33.0-37.0); MEAN PLATELET VOLUME 9.3 fL (7.2-11.7); MONO # 0.5 K/uL (0.0-0.8); MONO % 5.5 % (0.0-10.0); NRBC % 0.2 % (0.0-2.0); PLATELET COUNT 142 K/uL (130-400); RED CELL DISTRIBUTION WIDTH 18.7 % (11.5-14.5); WHITE BLOOD COUNT 9.8 K/uL (4.8-10.8)
[2016-08-14 06:54] LABS: POTASSIUM 5.3 mmol/L (3.6-5.2)
[2016-08-14 06:56] LABS: ALB/GLOB RATIO 0.8 (1.0-2.1); CALCIUM 8.4 mg/dl (8.6-10.4); PHOSPHOROUS 4.8 mg/dL (2.5-4.5); TOTAL PROTEIN 7.1 g/dL (6.3-8.3)
[2016-08-14 06:57] LABS: MAGNESIUM 2.2 mg/dL (1.6-2.3)
[2016-08-14 09:05] LABS: NEUTROPHIL 91 % (50-75); NUCLEATED RED BLOOD CELL 1 % (0-0); TOTAL CELLS COUNTED 100
[2016-08-14 09:06] LABS: LARGE PLATELETS PRESENT
[2016-08-14] MEDS: Cefepime IV 1 gm in Dextrose 50 ML IVPB SCH (09:49)
--- NOTE | 2016-08-14 09:59 | CP.PCM.PN ---
Subjective - Date & Time of Evaluation Date of Evaluation: 08/14/16 Time of Evaluation: 07:00 - Subjective Subjective: THORACIC SURGERY PROGRESS NOTE FOR DR. RODRIGUES Patient seen and examined at bedside in the ICU with daughter present. Per the daughter, the patient remains confused after the surgery. Patient remained stable throughout the night with less drainage from chest tube. Chest tube remains in place on suction. She is going for dialysis today Objective - Vital Signs/Intake and Output Vital Signs (last 24 hours): Temp Pulse Resp BP Pulse Ox 98.6 F 74 14 133/50 L 100 08/14/16 04:00 08/14/16 07:00 08/14/16 07:00 08/14/16 07:00 08/14/16 07:00 Intake and Output: 08/14/16 08/14/16 06:59 18:59 Output Total 325 Balance -325 - Medications Medications: Current Medications Aspirin (Aspirin Chewable) 81 mg PO DAILY [facility] Last Admin: 08/11/16 09:34 Dose: 81 mg Bisoprolol Fumarate (Zebeta) 5 mg PO ACB [facility] Last Admin: 08/11/16 09:33 Dose: Not Given Calcium Acetate (Phoslo) 667 mg PO TIDCC [facility] Last Admin: 08/14/16 08:05 Dose: Not Given Diphenhydramine HCl (Benadryl) 25 mg PO Q4H PRN PRN Reason: allergies Epoetin Sly (Procrit) 10,000 unit IV MWF [facility] Last Admin: 08/12/16 17:23 Dose: 10,000 unit Hydrocortisone Sodium Succinate (Solu-Cortef) 50 mg IV Q8H [facility] Last Admin: 08/14/16 05:37 Dose: 50 mg Cefepime HCl (Maxipime Iv 1 Gm Premix) 50 mls @ 100 mls/hr IVPB DAILY [facility] Last Admin: 08/14/16 09:49 Dose: 100 mls/hr Dextrose (Dextrose 5% In Water) 500 mls @ 30 mls/hr IV .[id number] [facility] Stop: 08/14/16 11:54 Last Admin: 08/13/16 19:42 Dose: 30 mls/hr Levothyroxine Sodium (Levothyroxine) 300 mcg IV DAILY [facility] Last Admin: 08/13/16 09:40 Dose: 300 mcg Pantoprazole Sodium (Protonix Inj) 40 mg IVP DAILY [facility] Last Admin: 08/14/16 09:48 Dose: 40 mg Rosuvastatin Calcium (Crestor) 10 mg PO HS [facility] Last Admin: 08/13/16 22:20 Dose: Not Given - Labs Labs: 08/14/16 06:29 08/14/16 06:29 PT 14.7 SECONDS (9.7-12.2) H 08/12/16 06:00 INR 1.3 08/12/16 06:00 APTT 40 SECONDS (21-34) H 08/12/16 06:00 - Constitutional Appears: Non-toxic, No Acute Distress - Respiratory Exam Respiratory Exam: NORMAL BREATHING PATTERN. absent: Respiratory Distress Additional comments: Right chest tube on suction, with 500cc sanguinous drainage over past 24 hours Dressing clean/dry/intact - changed at bedside - Cardiovascular Exam Cardiovascular Exam: +S1, +S2. absent: Tachycardia - Neurological Exam Neurological Exam: Alert, Awake. absent: Oriented x3 Assessment and Plan - Assessment and Plan (Free Text) Assessment: 75yo F with hydropneumothorax after thoracentesis, now s/p Right chest tube placement POD#2 - Afebrile, VSS - Hemoglobin 9.8 this morning, same as yesterday - Right chest tube on suction, with 500cc sanguinous drainage over past 24 hours - Dressing changed this AM - Daily CXRs - Discussed plan with Dr. Brittany Griffith PGY-2
[2016-08-14] MEDS: Levothyroxine 500 mcg (0.5 mg) Inj IV SCH (10:30)
--- NOTE | 2016-08-14 11:26 | CP.CCUPN ---
CCU Subjective - Physician Review Events Since Last Encounter (Free Text): 08/14/16 11:24 Patient today is more awake than yesterday. Following simple comments. Complaining of pain. General is to pain noted. No chest pain. Right-sided chest tube noted. It was off drainage this morning, he again started draining. 100 mL of serosanguineous fluid. Patient still nothing by mouth. We'll the start the patient on feeding. Spoke to the cardiothoracic surgery as well as probate judge. Patient will get hemodialysis today. Closely monitor. CCU Objective - Vital Signs / Intake & Output Intake and Output (Last 8hrs): Intake & Output 08/13/16 08/14/16 08/14/16 22:59 06:59 14:59 Output Total 275 225 Balance -275 -225 Weight 110 lb Output: Chest Tube Drainage 275 225 Right Anterior Chest 275 225 Urine 0 0 Urine, Voided 0 0 - Physical Exam Narrative Physical Exam (Free Text): 08/14/16 11:25 chest good air entry bilaterally regular heart soun Head: Positive for: Atraumatic, Normocephalic Extroacular Muscles: Positive for: EOMI Conjunctiva: Positive for: Normal Mouth: Positive for: Dry Neck: Positive for: Normal Range of Motion Respiratory/Chest: Positive for: Decreased Breath Sounds Cardiovascular: Positive for: Bradycardic Abdomen: Positive for: Normal Bowel Sounds. Negative for: Tenderness, Distention Upper Extremity: Positive for: Normal Inspection Lower Extremity: Positive for: Normal Inspection, Edema, NORMAL PULSES. Negative for: CALF TENDERNESS Neurological: Positive for: GCS=15, CN II-XII Intact Skin: Positive for: Warm, Dry Psychiatric: Positive for: Alert - Medications Active Medications: Active Medications Generic Name Dose Route Start Last Admin Trade Name Freq PRN Reason Stop Dose Admin Aspirin 81 mg 08/09/16 10:00 08/11/16 09:34 Aspirin Chewable PO 81 mg DAILY [facility] Administration Bisoprolol Fumarate 5 mg 08/09/16 07:30 08/11/16 09:33 Zebeta PO Not Given ACB [facility] Calcium Acetate 667 mg 08/08/16 17:00 08/14/16 08:05 Phoslo PO Not Given TIDCC [facility] Diphenhydramine HCl 25 mg 08/08/16 16:53 Benadryl PO Q4H PRN allergies Epoetin Sly 10,000 unit 08/12/16 09:00 08/12/16 17:23 Procrit IV 10,000 unit MWF [facility] Administration Hydrocortisone Sodium Succinate 50 mg 08/12/16 22:30 08/14/16 05:37 Solu-Cortef IV 50 mg Q8H [facility] Administration Cefepime HCl 50 mls @ 100 mls/hr 08/10/16 10:00 08/14/16 09:49 Maxipime Iv 1 Gm Premix IVPB 100 mls/hr DAILY [facility] Administration Dextrose 500 mls @ 30 mls/hr 08/13/16 19:15 08/13/16 19:42 Dextrose 5% In Water IV 08/14/16 11:54 30 mls/hr .[id number] [facility] Administration Levothyroxine Sodium 300 mcg 08/13/16 10:00 08/14/16 10:30 Levothyroxine IV 300 mcg DAILY [facility] Administration Pantoprazole Sodium 40 mg 08/13/16 10:00 08/14/16 09:48 Protonix Inj IVP 40 mg DAILY [facility] Administration Rosuvastatin Calcium 10 mg 08/09/16 22:00 08/13/16 22:20 Crestor PO Not Given HS [facility] - Patient Studies Lab Studies: Microbiology Studies 08/12/16 Unknown Mycobacterial Culture - Final Other: Please Indicate 08/12/16 14:00 Gram Stain - Final Pleural Fluid Body Fluid Culture - Preliminary NO GROWTH AFTER 24 HOURS Fungal Culture - Preliminary Lab Studies 08/14/16 08/14/16 08/13/16 Range/Units 07:40 06:29 23:29 WBC 9.8 10.0 (4.8-10.8) K/uL RBC 3.15 L 3.18 L (3.80-5.20) Mil/uL Hgb 9.8 L 9.8 L (11.0-16.0) g/dL Hct 29.3 L 29.5 L (34.0-47.0) % MCV 93.2 92.8 (81.0-99.0) fL MCH 31.1 H 31.0 (27.0-31.0) pg MCHC 33.4 33.4 (33.0-37.0) g/dL RDW 18.7 H 19.0 H (11.5-14.5) % Plt Count 142 149 (130-400) K/uL MPV 9.3 9.0 (7.2-11.7) fL Neut % (Auto) 90.1 H 89.5 H (50.0-75.0) % Lymph % (Auto) 4.1 L 3.7 L (20.0-40.0) % [place] % (Auto) 5.5 5.6 (0.0-10.0) % Eos % (Auto) 0.0 0.2 (0.0-4.0) % Baso % (Auto) 0.3 1.0 (0.0-2.0) % Neut # 8.8 H 9.0 H (1.8-7.0) K/uL Lymph # 0.4 L 0.4 L (1.0-4.3) K/uL [place] # 0.5 0.6 (0.0-0.8) K/uL Eos # 0.0 0.0 (0.0-0.7) K/uL Baso # 0.0 0.1 (0.0-0.2) K/uL Neutrophils % (Manual) 91 H 89 H (50-75) % Band Neutrophils % 2 2 (0-2) % Lymphocytes % (Manual) 2 L 5 L (20-40) % Monocytes % (Manual) 5 4 (0-10) % Nucleated RBC % 1 H (0-0) % Toxic Granulation Present Present Platelet Estimate Normal Normal (NORMAL) Large Platelets Present Present Polychromasia Slight Slight Hypochromasia (manual) Slight Anisocytosis (manual) Slight Slight Macrocytosis (manual) Slight Ovalocytes Slight Rouleaux Slight Sodium 136 136 (132-148) mmol/L Potassium 5.3 H 5.3 H (3.6-5.2) mmol/L Chloride 97 L 97 L (98-107) mmol/L Carbon Dioxide 25 26 (22-30) mmol/L Anion Gap 19 18 (10-20) BUN 54 H 48 H (7-17) mg/dL Creatinine 3.5 H 3.2 H (0.7-1.2) MG/DL Est GFR ( Amer) 15 17 Est GFR (Non-Af Amer) 13 14 POC Glucose (mg/dL) 208 H (65-110) mg/dL Random Glucose 206 H 182 H (65-105) mg/dL Calcium 8.4 L 8.5 L (8.6-10.4) mg/dl Phosphorus 4.8 H (2.5-4.5) mg/dL Magnesium 2.2 (1.6-2.3) mg/dL Total Bilirubin 2.0 H 2.2 H (0.2-1.3) mg/dL AST 41 H 45 H (14-36) U/L ALT 24 21 (9-52) U/L Alkaline Phosphatase 129 H 132 H (38-126) U/L Total Protein 7.1 7.2 (6.3-8.3) g/dL Albumin 3.1 L 3.2 L (3.5-5.0) g/dL Globulin 4.0 H 4.0 H (2.2-3.9) gm/dL Albumin/Globulin Ratio 0.8 L 0.8 L (1.0-2.1) 08/13/16 08/13/16 Range/Units 22:08 11:54 WBC (4.8-10.8) K/uL RBC (3.80-5.20) Mil/uL Hgb (11.0-16.0) g/dL Hct (34.0-47.0) % MCV (81.0-99.0) fL MCH (27.0-31.0) pg MCHC (33.0-37.0) g/dL RDW (11.5-14.5) % Plt Count (130-400) K/uL MPV (7.2-11.7) fL Neut % (Auto) (50.0-75.0) % Lymph % (Auto) (20.0-40.0) % [place] % (Auto) (0.0-10.0) % Eos % (Auto) (0.0-4.0) % Baso % (Auto) (0.0-2.0) % Neut # (1.8-7.0) K/uL Lymph # (1.0-4.3) K/uL [place] # (0.0-0.8) K/uL Eos # (0.0-0.7) K/uL Baso # (0.0-0.2) K/uL Neutrophils % (Manual) (50-75) % Band Neutrophils % (0-2) % Lymphocytes % (Manual) (20-40) % Monocytes % (Manual) (0-10) % Nucleated RBC % (0-0) % Toxic Granulation Platelet Estimate (NORMAL) Large Platelets Polychromasia Hypochromasia (manual) Anisocytosis (manual) Macrocytosis (manual) Ovalocytes Rouleaux Sodium (132-148) mmol/L Potassium (3.6-5.2) mmol/L Chloride (98-107) mmol/L Carbon Dioxide (22-30) mmol/L Anion Gap (10-20) BUN (7-17) mg/dL Creatinine (0.7-1.2) MG/DL Est GFR ( Amer) Est GFR (Non-Af Amer) POC Glucose (mg/dL) 170 H 147 H (65-110) mg/dL Random Glucose (65-105) mg/dL Calcium (8.6-10.4) mg/dl Phosphorus (2.5-4.5) mg/dL Magnesium (1.6-2.3) mg/dL Total Bilirubin (0.2-1.3) mg/dL AST (14-36) U/L ALT (9-52) U/L Alkaline Phosphatase (38-126) U/L Total Protein (6.3-8.3) g/dL Albumin (3.5-5.0) g/dL Globulin (2.2-3.9) gm/dL Albumin/Globulin Ratio (1.0-2.1) Laboratory Results - last 24 hr 08/13/16 08/13/16 08/13/16 11:54 22:08 23:29 WBC 10.0 RBC 3.18 L Hgb 9.8 L Hct 29.5 L MCV 92.8 MCH 31.0 MCHC 33.4 RDW 19.0 H Plt Count 149 MPV 9.0 Neut % (Auto) 89.5 H Lymph % (Auto) 3.7 L [place] % (Auto) 5.6 Eos % (Auto) 0.2 Baso % (Auto) 1.0 Neut # 9.0 H Lymph # 0.4 L [place] # 0.6 Eos # 0.0 Baso # 0.1 Neutrophils % (Manual) 89 H Band Neutrophils % 2 Lymphocytes % (Manual) 5 L Monocytes % (Manual) 4 Nucleated RBC % Toxic Granulation Present Platelet Estimate Normal Large Platelets Present Polychromasia Slight Hypochromasia (manual) Anisocytosis (manual) Slight Macrocytosis (manual) Ovalocytes Slight Rouleaux Slight Sodium 136 Potassium 5.3 H Chloride 97 L Carbon Dioxide 26 Anion Gap 18 BUN 48 H Creatinine 3.2 H Est GFR ( Amer) 17 Est GFR (Non-Af Amer) 14 POC Glucose (mg/dL) 147 H 170 H Random Glucose 182 H Calcium 8.5 L Phosphorus Magnesium Total Bilirubin 2.2 H AST 45 H ALT 21 Alkaline Phosphatase 132 H Total Protein 7.2 Albumin 3.2 L Globulin 4.0 H Albumin/Globulin Ratio 0.8 L 08/14/16 08/14/16 06:29 07:40 WBC 9.8 RBC 3.15 L Hgb 9.8 L Hct 29.3 L MCV 93.2 MCH 31.1 H MCHC 33.4 RDW 18.7 H Plt Count 142 MPV 9.3 Neut % (Auto) 90.1 H Lymph % (Auto) 4.1 L [place] % (Auto) 5.5 Eos % (Auto) 0.0 Baso % (Auto) 0.3 Neut # 8.8 H Lymph # 0.4 L [place] # 0.5 Eos # 0.0 Baso # 0.0 Neutrophils % (Manual) 91 H Band Neutrophils % 2 Lymphocytes % (Manual) 2 L Monocytes % (Manual) 5 Nucleated RBC % 1 H Toxic Granulation Present Platelet Estimate Normal Large Platelets Present Polychromasia Slight Hypochromasia (manual) Slight Anisocytosis (manual) Slight Macrocytosis (manual) Slight Ovalocytes Rouleaux Sodium 136 Potassium 5.3 H Chloride 97 L Carbon Dioxide 25 Anion Gap 19 BUN 54 H Creatinine 3.5 H Est GFR ( Amer) 15 Est GFR (Non-Af Amer) 13 POC Glucose (mg/dL) 208 H Random Glucose 206 H Calcium 8.4 L Phosphorus 4.8 H Magnesium 2.2 Total Bilirubin 2.0 H AST 41 H ALT 24 Alkaline Phosphatase 129 H Total Protein 7.1 Albumin 3.1 L Globulin 4.0 H Albumin/Globulin Ratio 0.8 L Fingerstick Blood Sugar Results: 170 Review of Systems - Review of Systems All systems: reviewed and no additional remarkable complaints except Review of Systems: Noted from the chart Critical Care Progress Note - Nutrition Nutrition: Nutrition Category Date Time Status NPO Diet [DIET] Diets 08/13/16 Breakfast Active Assessment/Plan (1) ESRD (end stage renal disease) on dialysis Assessment and plan: end-stage renal disease on dialysis. Right sided significant bleeding. Most likely posterior thoracentesis, chest tube status post. Bleeding noted. We'll continue to monitor the H&H, possible hemodialysis today patient will get Roxy's today. We'll add the DDAVP today. Monitor the H&H. We'll follow the patient Current Visit: Yes Status: Acute (2) Hypothermia Current Visit: Yes Status: Acute (3) Pleural effusion Current Visit: No Status: Acute (4) S/P thoracentesis Current Visit: No Status: Acute
[2016-08-14 12:25] LABS: THYROID STIMULATING HORMONE 23.2 mIU/L (0.46-4.68)
--- NOTE | 2016-08-14 12:40 | CP.PCM.PN ---
Subjective - Date & Time of Evaluation Date of Evaluation: 08/14/16 Time of Evaluation: 12:36 - Subjective Subjective: Pt s/e. Clinically stable. Pneumothorax resolved. Chest tube drained 300/24 hours. No air leak. Discussed the progress with the patient's daughter and brother. HD today. a/P: Satisfactory pod#2 Continue current RX. Objective - Vital Signs/Intake and Output Vital Signs (last 24 hours): Temp Pulse Resp BP Pulse Ox 97.8 F 70 22 126/54 L 98 08/14/16 12:00 08/14/16 12:00 08/14/16 12:00 08/14/16 12:00 08/14/16 12:00 Intake and Output: 08/14/16 08/14/16 06:59 18:59 Output Total 325 Balance -325 - Medications Medications: Current Medications Aspirin (Aspirin Chewable) 81 mg PO DAILY [facility] Last Admin: 08/11/16 09:34 Dose: 81 mg Bisoprolol Fumarate (Zebeta) 5 mg PO ACB [facility] Last Admin: 08/11/16 09:33 Dose: Not Given Calcium Acetate (Phoslo) 667 mg PO TIDCC [facility] Last Admin: 08/14/16 12:13 Dose: Not Given Diphenhydramine HCl (Benadryl) 25 mg PO Q4H PRN PRN Reason: allergies Epoetin Sly (Procrit) 10,000 unit IV MWF [facility] Last Admin: 08/12/16 17:23 Dose: 10,000 unit Hydrocortisone Sodium Succinate (Solu-Cortef) 50 mg IV Q12 [facility] Cefepime HCl (Maxipime Iv 1 Gm Premix) 50 mls @ 100 mls/hr IVPB DAILY [facility] Last Admin: 08/14/16 09:49 Dose: 100 mls/hr Levothyroxine Sodium (Levothyroxine) 300 mcg IV DAILY [facility] Last Admin: 08/14/16 10:30 Dose: 300 mcg Pantoprazole Sodium (Protonix Inj) 40 mg IVP DAILY [facility] Last Admin: 08/14/16 09:48 Dose: 40 mg Rosuvastatin Calcium (Crestor) 10 mg PO HS [facility] Last Admin: 08/13/16 22:20 Dose: Not Given - Labs Labs: 08/14/16 06:29 08/14/16 06:29 PT 14.7 SECONDS (9.7-12.2) H 08/12/16 06:00 INR 1.3 08/12/16 06:00 APTT 40 SECONDS (21-34) H 08/12/16 06:00
--- NOTE | 2016-08-14 13:44 | RAD ---
HISTORY: s/p chest tube COMPARISON: 08/13/16 FINDINGS: LUNGS: Re- demonstrated right-sided chest tube. Questionable small right basilar hydro pneumothorax meant decreased in size. Persistent consolidation right lung base. Mild left basilar atelectasis PLEURA: No significant pleural effusion identified, no pneumothorax apparent. CARDIOVASCULAR: Cardiomegaly with sternotomy wires and CABG clips unchanged OSSEOUS STRUCTURES: Degenerative changes both shoulder girdles again noted VISUALIZED UPPER ABDOMEN: Normal. OTHER FINDINGS: No change left axillary stent IMPRESSION: Re- demonstrated right-sided chest tube. Questionable small right basilar hydro pneumothorax may have decreased in size. Persistent consolidation right lung base. Mild left basilar atelectasis
--- NOTE | 2016-08-14 20:59 | CP.PCM.PN ---
Subjective - Date & Time of Evaluation Date of Evaluation: 08/14/16 Time of Evaluation: 19:05 - Subjective Subjective: Patient with altered mental status Not in distress Had HD yesterday Physical Exam - Constitutional Appears: No Acute Distress - Head Exam Head Exam: NORMOCEPHALIC - Eye Exam Eye Exam: Normal appearance - ENT Exam ENT Exam: Mucous Membranes Moist - Respiratory Exam Respiratory Exam: Decreased Breath Sounds - Cardiovascular Exam Cardiovascular Exam: +S1, +S2 - GI/Abdominal Exam GI & Abdominal Exam: Soft - Extremities Exam Additional comments: ulcers - Neurological Exam Neurological exam: Alert - Psychiatric Exam Psychiatric exam: Normal Mood - Skin Skin Exam: Dry, Normal Color Objective - Vital Signs/Intake and Output Vital Signs (last 24 hours): Temp Pulse Resp BP Pulse Ox 97.5 F L 78 16 120/49 L 100 08/14/16 20:00 08/14/16 20:00 08/14/16 20:00 08/14/16 20:00 08/14/16 20:00 Intake and Output: 08/14/16 08/15/16 18:59 06:59 Intake Total 330 0 Output Total 250 Balance 80 0 - Medications Medications: Current Medications Aspirin (Aspirin Chewable) 81 mg PO DAILY [facility] Last Admin: 08/11/16 09:34 Dose: 81 mg Bisoprolol Fumarate (Zebeta) 5 mg PO ACB [facility] Last Admin: 08/11/16 09:33 Dose: Not Given Calcium Acetate (Phoslo) 667 mg PO TIDCC [facility] Last Admin: 08/14/16 17:09 Dose: Not Given Diphenhydramine HCl (Benadryl) 25 mg PO Q4H PRN PRN Reason: allergies Epoetin Sly (Procrit) 10,000 unit IV MWF [facility] Last Admin: 08/12/16 17:23 Dose: 10,000 unit Hydrocortisone Sodium Succinate (Solu-Cortef) 50 mg IV Q12 [facility] Cefepime HCl (Maxipime Iv 1 Gm Premix) 50 mls @ 100 mls/hr IVPB DAILY [facility] Last Admin: 08/14/16 09:49 Dose: 100 mls/hr Levothyroxine Sodium (Levothyroxine) 300 mcg IV DAILY [facility] Last Admin: 08/14/16 10:30 Dose: 300 mcg Pantoprazole Sodium (Protonix Inj) 40 mg IVP DAILY [facility] Last Admin: 08/14/16 09:48 Dose: 40 mg Rosuvastatin Calcium (Crestor) 10 mg PO HS [facility] Last Admin: 08/13/16 22:20 Dose: Not Given - Labs Labs: 08/14/16 06:29 08/14/16 06:29 PT 14.7 SECONDS (9.7-12.2) H 08/12/16 06:00 INR 1.3 08/12/16 06:00 APTT 40 SECONDS (21-34) H 08/12/16 06:00 Assessment and Plan - Assessment and Plan (Free Text) Assessment: Neuro: Upon admission patient was mild AMS, currently more oriented. Was hypothermic, normal temperature now. CV: -CHF - Lasix 40mg PO daily -Hx CAD: ASA, Crestor -HTN - Continue Zebeta Pulm: -Right sided recurrent pleural effusions - Dr. Walker consulted for thoracentesis - help appreciated - 1800mL was removed. -This morning CXR showed increased fluid. Ordered CT Chest- revealed right sided hydropneumothorax. Patient is comfortable , in no respiratory distress, 98% on 2L NC. CT was consulted - Dr. Soto -LEDY w/ Talc pleurodesis vs chest tube vs Pleur-X catheter. Family agreed to chest tube only. Plan for OR today at 11am. Renal: -ESRD on HD MWF -Continued Elizabeth and Dr. Mcfarland - help appreciated As per Dr. Mcfarland, he will increase ultrafiltration on next dialysis. Heme: Hgb downtrending currently: 7.5 Patient will be transfused 1 unit prior to OR, 1 unit after during dialysis. Endo: - DM: Upon admission patient was hypoglycemic - Hypothyroidism: Synthroid 150 mcg PO ACB ID: Afebrile, no white count Initial UA showed UTI- Cefepime Q12H No growth on urine or blood cultures Left foot ulcer - f/u wound care Prophylaxis: GI: Protonix 40mg PO daily -held DVT: SCDs, VTE contraindicated due to thrombocytopenia Heart Healthy Diet
[2016-08-14] MEDS: Acetaminophen 650mg/20.3ml solution UD PO PRN (22:05)
[2016-08-15 06:42] LABS: BASO % 0.1 % (0.0-2.0); HEMATOCRIT 30.3 % (34.0-47.0); LYMPH # 0.4 K/uL (1.0-4.3); LYMPH % 3.2 % (20.0-40.0); MEAN CELL VOLUME 93.7 fL (81.0-99.0); MEAN CORPUSCULAR HGB CONC 33.1 g/dL (33.0-37.0); MEAN PLATELET VOLUME 8.7 fL (7.2-11.7); MONO # 0.5 K/uL (0.0-0.8); MONO % 4.6 % (0.0-10.0); NRBC % 0.1 % (0.0-2.0); PLATELET COUNT 127 K/uL (130-400); RED CELL DISTRIBUTION WIDTH 19.3 % (11.5-14.5); WHITE BLOOD COUNT 11.4 K/uL (4.8-10.8)
[2016-08-15 06:58] LABS: POTASSIUM 4.3 mmol/L (3.6-5.2)
[2016-08-15 07:00] LABS: ALB/GLOB RATIO 0.8 (1.0-2.1); BILIRUBIN,TOTAL 2.2 mg/dL (0.2-1.3); TOTAL PROTEIN 7.4 g/dL (6.3-8.3)
[2016-08-15 07:01] LABS: CALCIUM 8.4 mg/dl (8.6-10.4); MAGNESIUM 2.1 mg/dL (1.6-2.3); PHOSPHOROUS 3.5 mg/dL (2.5-4.5)
[2016-08-15 08:10] LABS: LARGE PLATELETS PRESENT; NEUTROPHIL 87 % (50-75); TOTAL CELLS COUNTED 100
--- NOTE | 2016-08-15 08:14 | RAD ---
HISTORY: chest tube placement COMPARISON: 08/14/2016 FINDINGS: LUNGS: Persistent right chest tube projecting over the medial right lung base. Persistent moderate loculated right hydro pneumothorax/loculated pleural effusion. Venous congestion. Upper lobe granulomatous changes. PLEURA: As above. CARDIOVASCULAR: Status post median sternotomy and CABG. Calcification at the aortic knob. Left axillary stent in place. OSSEOUS STRUCTURES: Degenerative changes in the spine and shoulders. Deformity of the right proximal humerus. Lobulated sclerotic foci project over the left proximal humerus. VISUALIZED UPPER ABDOMEN: Normal. OTHER FINDINGS: None. IMPRESSION: No significant interval change.
--- NOTE | 2016-08-15 08:56 | CP.PCM.PN ---
Subjective - Date & Time of Evaluation Date of Evaluation: 08/15/16 Time of Evaluation: 07:00 - Subjective Subjective: CT Surgery: Dr. Soto Patient seen and examined this AM. Patient's brother at bedside. Pt is awake. According to brother patient only recognizes and acknowledges daughter. States her mental status has not been the same, s/p sedation. Objective - Vital Signs/Intake and Output Vital Signs (last 24 hours): Temp Pulse Resp BP Pulse Ox 98.1 F 79 16 144/92 H 100 08/15/16 08:00 08/15/16 08:00 08/15/16 08:00 08/15/16 08:00 08/15/16 08:00 Intake and Output: 08/15/16 08/15/16 06:59 18:59 Intake Total 250 0 Output Total 80 Balance 170 0 - Medications Medications: Current Medications Acetaminophen (Tylenol 650mg/20.3ml Solution Ud) 650 mg PO Q4 PRN PRN Reason: pain Last Admin: 08/14/16 22:05 Dose: 650 mg Aspirin (Aspirin Chewable) 81 mg PO DAILY [facility] Last Admin: 08/11/16 09:34 Dose: 81 mg Bisoprolol Fumarate (Zebeta) 5 mg PO ACB [facility] Last Admin: 08/11/16 09:33 Dose: Not Given Calcium Acetate (Phoslo) 667 mg PO TIDCC [facility] Last Admin: 08/15/16 08:00 Dose: 667 mg Diphenhydramine HCl (Benadryl) 25 mg PO Q4H PRN PRN Reason: allergies Epoetin Sly (Procrit) 10,000 unit IV MWF [facility] Last Admin: 08/12/16 17:23 Dose: 10,000 unit Hydrocortisone Sodium Succinate (Solu-Cortef) 50 mg IV Q12 [facility] Last Admin: 08/14/16 22:04 Dose: 50 mg Cefepime HCl (Maxipime Iv 1 Gm Premix) 50 mls @ 100 mls/hr IVPB DAILY [facility] Last Admin: 08/14/16 09:49 Dose: 100 mls/hr Levothyroxine Sodium (Levothyroxine) 300 mcg IV DAILY [facility] Last Admin: 08/14/16 10:30 Dose: 300 mcg Pantoprazole Sodium (Protonix Inj) 40 mg IVP DAILY [facility] Last Admin: 08/14/16 09:48 Dose: 40 mg Rosuvastatin Calcium (Crestor) 10 mg PO HS [facility] Last Admin: 08/14/16 22:23 Dose: Not Given - Labs Labs: 08/15/16 06:33 08/15/16 06:33 PT 14.7 SECONDS (9.7-12.2) H 08/12/16 06:00 INR 1.3 08/12/16 06:00 APTT 40 SECONDS (21-34) H 08/12/16 06:00 - Constitutional Appears: Confused - Head Exam Head Exam: NORMOCEPHALIC - ENT Exam ENT Exam: Mucous Membranes Moist - Respiratory Exam Respiratory Exam: Decreased Breath Sounds - Cardiovascular Exam Cardiovascular Exam: +S1, +S2 - Neurological Exam Neurological Exam: Awake - Skin Skin Exam: Intact, Warm Assessment and Plan - Assessment and Plan (Free Text) Assessment: 75F s/p anterior chest tube insertion POD #3 -F/u CXR -CT to suction -AM labs -Monitor I&O -CT drainage: 330/24 hrs, sanguinous -CT will remain in place throughout patient's hospital course -d/w Dr. Soto
[2016-08-15 10:01] LABS: THYROID STIMULATING HORMONE 9.46 mIU/L (0.46-4.68)
--- NOTE | 2016-08-15 10:07 | CP.CCUPN ---
CCU Subjective - Physician Review Subjective (Free Text): Patient was seen and examined at bedside. S/P anterior chest tube insertion POD #3. Chest tube still in place, output of 330ml /24hrs sanguinous. Will continue to be on suction. Patient is currently not on oxygen she is saturating well. Will continue to monitor output and CXRs. Patient is currently unable to eat. Patient refuses to swallow any liquids or apple sauce. NGT will be placed to start tube feedings. CCU Objective - Vital Signs / Intake & Output Vital Signs (Last 4 hours): Vital Signs Temp Pulse Resp BP Pulse Ox 08/15/16 09:00 79 15 124/94 H 100 08/15/16 08:00 98.1 F 79 16 144/92 H 100 Intake and Output (Last 8hrs): Intake & Output 08/14/16 08/15/16 08/15/16 22:59 06:59 14:59 Intake Total 180 100 0 Output Total 250 80 Balance -70 20 0 Weight 106 lb 3.2 oz Intake: Intake, IV Amount 30 Right Forearm 30 Oral 150 100 0 Output: Chest Tube Drainage 250 80 Right Anterior Chest 250 80 Other: # Voids Urine, Voided 0 0 0 # Bowel Movements 0 0 0 - Physical Exam Head: Positive for: Atraumatic, Normocephalic Extroacular Muscles: Positive for: EOMI Conjunctiva: Positive for: Normal Mouth: Positive for: Dry Neck: Positive for: Normal Range of Motion Respiratory/Chest: Positive for: Decreased Breath Sounds Cardiovascular: Positive for: Bradycardic Abdomen: Positive for: Normal Bowel Sounds. Negative for: Tenderness, Distention Upper Extremity: Positive for: Normal Inspection Lower Extremity: Positive for: Normal Inspection, Edema, NORMAL PULSES. Negative for: CALF TENDERNESS Neurological: Positive for: GCS=15, CN II-XII Intact Skin: Positive for: Warm, Dry Psychiatric: Positive for: Alert - Medications Active Medications: Active Medications Generic Name Dose Route Start Last Admin Trade Name Freq PRN Reason Stop Dose Admin Acetaminophen 650 mg 08/14/16 21:40 08/14/16 22:05 Tylenol 650mg/20.3ml Solution Ud PO 650 mg Q4 PRN Administration pain Aspirin 81 mg 08/09/16 10:00 08/11/16 09:34 Aspirin Chewable PO 81 mg DAILY REKHA Administration Bisoprolol Fumarate 5 mg 08/09/16 07:30 08/11/16 09:33 Zebeta PO Not Given ACB REKHA Calcium Acetate 667 mg 08/08/16 17:00 08/15/16 08:00 Phoslo PO 667 mg TIDCC REKHA Administration Diphenhydramine HCl 25 mg 08/08/16 16:53 Benadryl PO Q4H PRN allergies Epoetin Sly 10,000 unit 08/12/16 09:00 08/12/16 17:23 Procrit IV 10,000 unit MWF REKHA Administration Hydrocortisone Sodium Succinate 50 mg 08/15/16 10:00 08/15/16 09:25 Solu-Cortef IV 50 mg DAILY REKHA Administration Cefepime HCl 50 mls @ 100 mls/hr 08/10/16 10:00 08/14/16 09:49 Maxipime Iv 1 Gm Premix IVPB 100 mls/hr DAILY REKHA Administration Levothyroxine Sodium 300 mcg 08/13/16 10:00 08/14/16 10:30 Levothyroxine IV 300 mcg DAILY REKHA Administration Lidocaine HCl 15 ml 08/15/16 08:59 Lidocaine 2% Viscous PO TID PRN Pain, Mild (1-3) Pantoprazole Sodium 40 mg 08/13/16 10:00 08/15/16 09:25 Protonix Inj IVP 40 mg DAILY REKHA Administration Rosuvastatin Calcium 10 mg 08/09/16 22:00 08/14/16 22:23 Crestor PO Not Given HS REKHA - Patient Studies Lab Studies: Microbiology Studies 08/12/16 14:00 Gram Stain - Final Pleural Fluid Body Fluid Culture - Preliminary NO GROWTH AFTER 2 DAYS Fungal Culture - Preliminary 08/12/16 Unknown Mycobacterial Culture - Final Other: Please Indicate Lab Studies 08/15/16 08/15/16 08/14/16 Range/Units 07:39 06:33 21:19 WBC 11.4 H (4.8-10.8) K/uL RBC 3.23 L (3.80-5.20) Mil/uL Hgb 10.0 L (11.0-16.0) g/dL Hct 30.3 L (34.0-47.0) % MCV 93.7 (81.0-99.0) fL MCH 31.0 (27.0-31.0) pg MCHC 33.1 (33.0-37.0) g/dL RDW 19.3 H (11.5-14.5) % Plt Count 127 L (130-400) K/uL MPV 8.7 (7.2-11.7) fL Neut % (Auto) 92.1 H (50.0-75.0) % Lymph % (Auto) 3.2 L (20.0-40.0) % [place] % (Auto) 4.6 (0.0-10.0) % Eos % (Auto) 0.0 (0.0-4.0) % Baso % (Auto) 0.1 (0.0-2.0) % Neut # 10.5 H (1.8-7.0) K/uL Lymph # 0.4 L (1.0-4.3) K/uL [place] # 0.5 (0.0-0.8) K/uL Eos # 0.0 (0.0-0.7) K/uL Baso # 0.0 (0.0-0.2) K/uL Neutrophils % (Manual) 87 H (50-75) % Band Neutrophils % 1 (0-2) % Lymphocytes % (Manual) 5 L (20-40) % Monocytes % (Manual) 7 (0-10) % Platelet Estimate Slightly decreased L (NORMAL) Large Platelets Present Hypochromasia (manual) Slight Poikilocytosis (manual Slight Anisocytosis (manual) Slight Macrocytosis (manual) Slight Target Cells Slight Tear Drop Cells Slight Ovalocytes Slight Sodium 136 (132-148) mmol/L Potassium 4.3 (3.6-5.2) mmol/L Chloride 98 (98-107) mmol/L Carbon Dioxide 21 L (22-30) mmol/L Anion Gap 21 H (10-20) BUN 37 H (7-17) mg/dL Creatinine 2.3 H (0.7-1.2) MG/DL Est GFR ( Amer) 25 Est GFR (Non-Af Amer) 21 POC Glucose (mg/dL) 165 H 190 H (65-110) mg/dL Random Glucose 155 H (65-105) mg/dL Calcium 8.4 L (8.6-10.4) mg/dl Phosphorus 3.5 (2.5-4.5) mg/dL Magnesium 2.1 (1.6-2.3) mg/dL Total Bilirubin 2.2 H (0.2-1.3) mg/dL AST 45 H (14-36) U/L ALT 17 (9-52) U/L Alkaline Phosphatase 139 H (38-126) U/L Total Protein 7.4 (6.3-8.3) g/dL Albumin 3.2 L (3.5-5.0) g/dL Globulin 4.2 H (2.2-3.9) gm/dL Albumin/Globulin Ratio 0.8 L (1.0-2.1) TSH 3rd Generation 9.46 H (0.46-4.68) mIU/L 08/14/16 08/14/16 08/14/16 Range/Units 15:57 11:33 06:29 WBC (4.8-10.8) K/uL RBC (3.80-5.20) Mil/uL Hgb (11.0-16.0) g/dL Hct (34.0-47.0) % MCV (81.0-99.0) fL MCH (27.0-31.0) pg MCHC (33.0-37.0) g/dL RDW (11.5-14.5) % Plt Count (130-400) K/uL MPV (7.2-11.7) fL Neut % (Auto) (50.0-75.0) % Lymph % (Auto) (20.0-40.0) % [place] % (Auto) (0.0-10.0) % Eos % (Auto) (0.0-4.0) % Baso % (Auto) (0.0-2.0) % Neut # (1.8-7.0) K/uL Lymph # (1.0-4.3) K/uL [place] # (0.0-0.8) K/uL Eos # (0.0-0.7) K/uL Baso # (0.0-0.2) K/uL Neutrophils % (Manual) (50-75) % Band Neutrophils % (0-2) % Lymphocytes % (Manual) (20-40) % Monocytes % (Manual) (0-10) % Platelet Estimate (NORMAL) Large Platelets Hypochromasia (manual) Poikilocytosis (manual Anisocytosis (manual) Macrocytosis (manual) Target Cells Tear Drop Cells Ovalocytes Sodium (132-148) mmol/L Potassium (3.6-5.2) mmol/L Chloride (98-107) mmol/L Carbon Dioxide (22-30) mmol/L Anion Gap (10-20) BUN (7-17) mg/dL Creatinine (0.7-1.2) MG/DL Est GFR ( Amer) Est GFR (Non-Af Amer) POC Glucose (mg/dL) 135 H 203 H (65-110) mg/dL Random Glucose (65-105) mg/dL Calcium (8.6-10.4) mg/dl Phosphorus (2.5-4.5) mg/dL Magnesium (1.6-2.3) mg/dL Total Bilirubin (0.2-1.3) mg/dL AST (14-36) U/L ALT (9-52) U/L Alkaline Phosphatase (38-126) U/L Total Protein (6.3-8.3) g/dL Albumin (3.5-5.0) g/dL Globulin (2.2-3.9) gm/dL Albumin/Globulin Ratio (1.0-2.1) TSH 3rd Generation 23.20 H (0.46-4.68) mIU/L Laboratory Results - last 24 hr 08/14/16 08/14/16 08/14/16 06:29 11:33 15:57 WBC RBC Hgb Hct MCV MCH MCHC RDW Plt Count MPV Neut % (Auto) Lymph % (Auto) [place] % (Auto) Eos % (Auto) Baso % (Auto) Neut # Lymph # [place] # Eos # Baso # Neutrophils % (Manual) Band Neutrophils % Lymphocytes % (Manual) Monocytes % (Manual) Platelet Estimate Large Platelets Hypochromasia (manual) Poikilocytosis (manual Anisocytosis (manual) Macrocytosis (manual) Target Cells Tear Drop Cells Ovalocytes Sodium Potassium Chloride Carbon Dioxide Anion Gap BUN Creatinine Est GFR ( Amer) Est GFR (Non-Af Amer) POC Glucose (mg/dL) 203 H 135 H Random Glucose Calcium Phosphorus Magnesium Total Bilirubin AST ALT Alkaline Phosphatase Total Protein Albumin Globulin Albumin/Globulin Ratio TSH 3rd Generation 23.20 H 08/14/16 08/15/16 08/15/16 21:19 06:33 07:39 WBC 11.4 H RBC 3.23 L Hgb 10.0 L Hct 30.3 L MCV 93.7 MCH 31.0 MCHC 33.1 RDW 19.3 H Plt Count 127 L MPV 8.7 Neut % (Auto) 92.1 H Lymph % (Auto) 3.2 L [place] % (Auto) 4.6 Eos % (Auto) 0.0 Baso % (Auto) 0.1 Neut # 10.5 H Lymph # 0.4 L [place] # 0.5 Eos # 0.0 Baso # 0.0 Neutrophils % (Manual) 87 H Band Neutrophils % 1 Lymphocytes % (Manual) 5 L Monocytes % (Manual) 7 Platelet Estimate Slightly decreased L Large Platelets Present Hypochromasia (manual) Slight Poikilocytosis (manual Slight Anisocytosis (manual) Slight Macrocytosis (manual) Slight Target Cells Slight Tear Drop Cells Slight Ovalocytes Slight Sodium 136 Potassium 4.3 Chloride 98 Carbon Dioxide 21 L Anion Gap 21 H BUN 37 H Creatinine 2.3 H Est GFR ( Amer) 25 Est GFR (Non-Af Amer) 21 POC Glucose (mg/dL) 190 H 165 H Random Glucose 155 H Calcium 8.4 L Phosphorus 3.5 Magnesium 2.1 Total Bilirubin 2.2 H AST 45 H ALT 17 Alkaline Phosphatase 139 H Total Protein 7.4 Albumin 3.2 L Globulin 4.2 H Albumin/Globulin Ratio 0.8 L TSH 3rd Generation 9.46 H Fingerstick Blood Sugar Results: 165 Critical Care Progress Note - Nutrition Nutrition: Nutrition Category Date Time Status Regular Diet [DIET] Diets 08/14/16 Dinner Active Assessment/Plan - Assessment and Plan (Free Text) Assessment: 75 year old female with ESRD currently on dialysis MWF presented with CHF, in need of dialysis with recurrent right sided pleural effusion. Plan: Neuro: Upon admission patient was mild AMS, currently more oriented. Was hypothermic, normal temperature now. CV: -CHF -Hx CAD: ASA, Crestor -HTN - Zebeta held due to hypotension Pulm: -Right sided recurrent pleural effusions - Dr. Walker consulted for thoracentesis - help appreciated - 1800mL was removed. -Ordered CT Chest- revealed right sided hydropneumothorax. Patient is comfortable, in no respiratory distress, 98% on 2L NC. -CT was consulted - Dr. Soto - S/P anterior chest tube insertion POD #3 currently on suction. Renal: -ESRD on HD MWF -Continued Phoslo -Dr. Mcfarland - help appreciated; patient received dialysis yesterday, will adjust dialysis schedule accordingly. Heme: -Patient was transfused total of 2 PRBCs. -Current 10.0 -Monitor Endo: - DM: Upon admission patient was hypoglycemic - Hypothyroidism: Synthroid 300 mcg IV ACB, continue to monitor TSH currently 9.46, Hydrocortiosone 50mg IV daily. ID: -Afebrile, no white count -Initial UA showed UTI- Cefepime Q12H -No growth on urine or blood cultures -Left foot ulcer - f/u wound care Prophylaxis: -GI: Protonix 40mg IVP daily -DVT: SCDs, VTE contraindicated due to thrombocytopenia -Heart Healthy Diet, Patient will have NGT. USMAN Bliss, Derrick BAHENA, PGY-1
--- NOTE | 2016-08-15 11:45 | CP.PCM.PN ---
Subjective - Date & Time of Evaluation Date of Evaluation: 08/15/16 Time of Evaluation: 11:42 - Subjective Subjective: POD #3 chest tube insertion dialysis was done 08/14 to make up for previously missed dialysis Back on dilaysis schedule now- UF only 500ml due to blood loss, relative low BP On treatment for hypothyroidism Spoke with daughter at bedside- explained importance of maintenance dialysis Patient has been confused- worsened by sedation; cannot obtain ROS otherwise Objective - Vital Signs/Intake and Output Vital Signs (last 24 hours): Temp Pulse Resp BP Pulse Ox 98.1 F 81 14 146/39 L 100 08/15/16 08:00 08/15/16 10:00 08/15/16 10:00 08/15/16 10:00 08/15/16 10:00 Intake and Output: 08/15/16 08/15/16 06:59 18:59 Intake Total 250 0 Output Total 80 Balance 170 0 - Medications Medications: Current Medications Acetaminophen (Tylenol 650mg/20.3ml Solution Ud) 650 mg PO Q4 PRN PRN Reason: pain Last Admin: 08/14/16 22:05 Dose: 650 mg Aspirin (Aspirin Chewable) 81 mg PO DAILY [facility] Last Admin: 08/11/16 09:34 Dose: 81 mg Bisoprolol Fumarate (Zebeta) 5 mg PO ACB [facility] Last Admin: 08/11/16 09:33 Dose: Not Given Calcium Acetate (Phoslo) 667 mg PO TIDCC [facility] Last Admin: 08/15/16 08:00 Dose: 667 mg Diphenhydramine HCl (Benadryl) 25 mg PO Q4H PRN PRN Reason: allergies Epoetin Sly (Procrit) 10,000 unit IV MWF [facility] Last Admin: 08/12/16 17:23 Dose: 10,000 unit Hydrocortisone Sodium Succinate (Solu-Cortef) 50 mg IV DAILY [facility] Last Admin: 08/15/16 09:25 Dose: 50 mg Cefepime HCl (Maxipime Iv 1 Gm Premix) 50 mls @ 100 mls/hr IVPB DAILY [facility] Last Admin: 08/14/16 09:49 Dose: 100 mls/hr Levothyroxine Sodium (Levothyroxine) 300 mcg IV DAILY [facility] Last Admin: 08/14/16 10:30 Dose: 300 mcg Lidocaine HCl (Lidocaine 2% Viscous) 15 ml PO TID PRN PRN Reason: Pain, Mild (1-3) Last Admin: 08/15/16 10:32 Dose: 15 ml Pantoprazole Sodium (Protonix Inj) 40 mg IVP DAILY REKHA Last Admin: 08/15/16 09:25 Dose: 40 mg Rosuvastatin Calcium (Crestor) 10 mg PO HS REKHA Last Admin: 08/14/16 22:23 Dose: Not Given - Labs Labs: 08/15/16 06:33 08/15/16 06:33 PT 14.7 SECONDS (9.7-12.2) H 08/12/16 06:00 INR 1.3 08/12/16 06:00 APTT 40 SECONDS (21-34) H 08/12/16 06:00 - Constitutional Appears: In Acute Distress, Chronically Ill - Head Exam Head Exam: ATRAUMATIC, NORMAL INSPECTION - Eye Exam Eye Exam: EOMI, Normal appearance - Neck Exam Neck Exam: Normal Inspection. absent: Tenderness - Respiratory Exam Respiratory Exam: Clear to Ausculation Bilateral, NORMAL BREATHING PATTERN - Cardiovascular Exam Cardiovascular Exam: REGULAR RHYTHM, +S1 - GI/Abdominal Exam GI & Abdominal Exam: Soft. absent: Tenderness - Extremities Exam Extremities Exam: Normal Inspection. absent: Tenderness - Neurological Exam Neurological Exam: Altered, CN II-XII Intact - Skin Skin Exam: Dry, Warm Assessment and Plan (1) CHF (congestive heart failure) Status: Acute (2) Diabetes mellitus Status: Acute (3) Secondary hyperparathyroidism Status: Acute (4) Hydropneumothorax Status: Acute (5) ESRD (end stage renal disease) on dialysis Status: Acute - Assessment and Plan (Free Text) Plan: Dialysis MWF Minimal UF as BP has been lower; minimal oral intake Treat hypothyroidism Discuss case with staff and family
[2016-08-15] MEDS: Epoetin Alfa 10,000 unit/ml Dialysis IV SCH (12:05)
[2016-08-15] MEDS: Cefepime IV 1 gm in Dextrose 50 ML IVPB SCH (12:55)
--- NOTE | 2016-08-15 14:29 | US ---
PROCEDURE: Date of procedure: 08/09/2016 Procedure: 1. Ultrasound-guided Right thoracentesis, CPT 15047 Medications: 6cc 1% Lidocaine HISTORY: Right pleural effusion, shortness of breath TECHNIQUE: Following informed consent ,the Patients' right chest was marked. Procedure time-out was called, and the patient was placed in the sitting position and limited ultrasound showed a large right effusion. The patient's right back was prepped and draped in the usual sterile fashion. After the skin was anesthetized with lidocaine, a drainage catheter was advanced under ultrasound guidance into the pleural space. Ultrasound-guided thoracentesis was performed. A total of 1800 cubic centimeters of straw-colored fluid removed without complication. A Xeroform dressing was applied. IMPRESSION: Ultrasound guided Right thoracentesis. There were no immediate complications.
[2016-08-15] MEDS: Levothyroxine 500 mcg (0.5 mg) Inj IV SCH (14:43)
--- NOTE | 2016-08-15 20:41 | CP.PCM.PN ---
Subjective - Date & Time of Evaluation Date of Evaluation: 08/15/16 Time of Evaluation: 16:05 - Subjective Subjective: Patient was seen and examined at bedside. S/P anterior chest tube insertion POD #3. Chest tube still in place, output of 330ml /24hrs sanguinous. Will continue to be on suction. Patient is currently not on oxygen she is saturating well. Will continue to monitor output and CXRs. Patient is currently unable to eat. Patient refuses to swallow any liquids or apple sauce. NGT will be placed to start tube feedings. CCU Objective - Vital Signs / Intake & Output Vital Signs (Last 4 hours): Vital Signs Temp Pulse Resp BP Pulse Ox 08/15/16 09:00 79 15 124/94 H 100 08/15/16 08:00 98.1 F 79 16 144/92 H 100 Intake and Output (Last 8hrs): Intake & Output 08/14/16 08/15/16 08/15/16 22:59 06:59 14:59 Intake Total 180 100 0 Output Total 250 80 Balance -70 20 0 Weight 106 lb 3.2 oz Intake: Intake, IV Amount 30 Right Forearm 30 Oral 150 100 0 Output: Chest Tube Drainage 250 80 Right Anterior Chest 250 80 Other: # Voids Urine, Voided 0 0 0 # Bowel Movements 0 0 0 - Physical Exam Head: Positive for: Atraumatic, Normocephalic Extroacular Muscles: Positive for: EOMI Conjunctiva: Positive for: Normal Mouth: Positive for: Dry Neck: Positive for: Normal Range of Motion Respiratory/Chest: Positive for: Decreased Breath Sounds Cardiovascular: Positive for: Bradycardic Abdomen: Positive for: Normal Bowel Sounds. Negative for: Tenderness, Distention Upper Extremity: Positive for: Normal Inspection Lower Extremity: Positive for: Normal Inspection, Edema, NORMAL PULSES. Negative for: CALF TENDERNESS Neurological: Positive for: GCS=15, CN II-XII Intact Skin: Positive for: Warm, Dry Psychiatric: Positive for: Alert Objective - Vital Signs/Intake and Output Vital Signs (last 24 hours): Temp Pulse Resp BP Pulse Ox 98.2 F 85 19 114/89 100 08/15/16 16:00 08/15/16 18:00 08/15/16 18:00 08/15/16 18:00 08/15/16 18:00 Intake and Output: 08/15/16 08/16/16 18:59 06:59 Intake Total 100 Output Total 120 Balance -20 - Medications Medications: Current Medications Acetaminophen (Tylenol 650mg/20.3ml Solution Ud) 650 mg PO Q4 PRN PRN Reason: pain Last Admin: 08/14/16 22:05 Dose: 650 mg Aspirin (Aspirin Chewable) 81 mg PO DAILY [facility] Last Admin: 08/11/16 09:34 Dose: 81 mg Bisoprolol Fumarate (Zebeta) 5 mg PO ACB [facility] Last Admin: 08/11/16 09:33 Dose: Not Given Calcium Acetate (Phoslo) 667 mg PO TIDCC [facility] Last Admin: 08/15/16 18:05 Dose: Not Given Diphenhydramine HCl (Benadryl) 25 mg PO Q4H PRN PRN Reason: allergies Epoetin Sly (Procrit) 10,000 unit IV MWF [facility] Last Admin: 08/15/16 12:05 Dose: 10,000 unit Haloperidol Lactate (Haldol) 0.5 mg IVP Q12 PRN PRN Reason: Agitation Stop: 08/17/16 19:43 Last Admin: 08/15/16 19:59 Dose: 0.5 mg Hydrocortisone Sodium Succinate (Solu-Cortef) 50 mg IV DAILY [facility] Last Admin: 08/15/16 09:25 Dose: 50 mg Cefepime HCl (Maxipime Iv 1 Gm Premix) 50 mls @ 100 mls/hr IVPB DAILY [facility] Last Admin: 08/15/16 12:55 Dose: 100 mls/hr Dextrose (Dextrose 5% In Water) 500 mls @ 30 mls/hr IV .[id number] [facility] Stop: 08/16/16 12:24 Last Admin: 08/15/16 19:53 Dose: 30 mls/hr Levothyroxine Sodium (Levothyroxine) 300 mcg IV DAILY [facility] Last Admin: 08/15/16 14:43 Dose: 300 mcg Lidocaine HCl (Lidocaine 2% Viscous) 15 ml PO TID PRN PRN Reason: Pain, Mild (1-3) Last Admin: 08/15/16 20:01 Dose: 15 ml Metoprolol Tartrate (Lopressor) 2.5 mg IVP Q8 [facility] Pantoprazole Sodium (Protonix Inj) 40 mg IVP DAILY [facility] Last Admin: 08/15/16 09:25 Dose: 40 mg Rosuvastatin Calcium (Crestor) 10 mg PO HS [facility] Last Admin: 08/14/16 22:23 Dose: Not Given - Labs Labs: 08/15/16 06:33 08/15/16 06:33 PT 14.7 SECONDS (9.7-12.2) H 08/12/16 06:00 INR 1.3 08/12/16 06:00 APTT 40 SECONDS (21-34) H 08/12/16 06:00 Assessment and Plan - Assessment and Plan (Free Text) Assessment: 75 year old female with ESRD currently on dialysis MWF presented with CHF, in need of dialysis with recurrent right sided pleural effusion. Plan: Neuro: Upon admission patient was mild AMS, currently more oriented. Was hypothermic, normal temperature now. CV: -CHF -Hx CAD: ASA, Crestor -HTN - Zebeta held due to hypotension Pulm: -Right sided recurrent pleural effusions - Dr. Walker consulted for thoracentesis - help appreciated - 1800mL was removed. -Ordered CT Chest- revealed right sided hydropneumothorax. Patient is comfortable, in no respiratory distress, 98% on 2L NC. -CT was consulted - Dr. Soto - S/P anterior chest tube insertion POD #3 currently on suction. Renal: -ESRD on HD MWF -Continued Phoslo -Dr. Mcfarland - help appreciated; patient received dialysis yesterday, will adjust dialysis schedule accordingly. Heme: -Patient was transfused total of 2 PRBCs. -Current 10.0 -Monitor Endo: - DM: Upon admission patient was hypoglycemic - Hypothyroidism: Synthroid 300 mcg IV ACB, continue to monitor TSH currently 9.46, Hydrocortiosone 50mg IV daily. ID: -Afebrile, no white count -Initial UA showed UTI- Cefepime Q12H -No growth on urine or blood cultures -Left foot ulcer - f/u wound care Prophylaxis: -GI: Protonix 40mg IVP daily -DVT: SCDs, VTE contraindicated due to thrombocytopenia -Heart Healthy Diet, Patient will have NGT.
[2016-08-15] MEDS: Metoprolol 1 mg/ml Inj IVP SCH (22:01)
[2016-08-16] MEDS: Metoprolol 1 mg/ml Inj IVP SCH ×3 (06:00→22:08)
[2016-08-16 06:56] LABS: BASO % 0.2 % (0.0-2.0); EOS % 0.2 % (0.0-4.0); HEMATOCRIT 30.8 % (34.0-47.0); LYMPH # 0.8 K/uL (1.0-4.3); LYMPH % 8.6 % (20.0-40.0); MEAN CORPUSCULAR HEMOGLOBIN 31.3 pg (27.0-31.0); MEAN PLATELET VOLUME 9.2 fL (7.2-11.7); NRBC % 0.4 % (0.0-2.0); PLATELET COUNT 121 K/uL (130-400); RED CELL DISTRIBUTION WIDTH 19.9 % (11.5-14.5); WHITE BLOOD COUNT 8.9 K/uL (4.8-10.8)
[2016-08-16 06:57] LABS: POTASSIUM 3.3 mmol/L (3.6-5.2)
[2016-08-16 06:59] LABS: ALB/GLOB RATIO 0.7 (1.0-2.1); BILIRUBIN,TOTAL 2.3 mg/dL (0.2-1.3); TOTAL PROTEIN 7.1 g/dL (6.3-8.3)
[2016-08-16 07:00] LABS: CALCIUM 8.4 mg/dl (8.6-10.4); MAGNESIUM 2.1 mg/dL (1.6-2.3); PHOSPHOROUS 2.5 mg/dL (2.5-4.5)
--- NOTE | 2016-08-16 08:20 | CP.CCUPN ---
<Heather Meza - Last Filed: 08/16/16 10:24> CCU Subjective - Physician Review Subjective (Free Text): Patient was seen and examined at bedside. S/P anterior chest tube insertion POD #4. Chest tube still in place, output of 120ml /24hrs sanguinous. Will continue to be on suction. Patient is currently not on oxygen she is saturating well. Will continue to monitor output and CXRs. Patient is currently unable to eat. Patient refuses to swallow any liquids or apple sauce. Attempted NGT yesterday but patient refused. Palliative care consulted. CCU Objective - Vital Signs / Intake & Output Intake and Output (Last 8hrs): Intake & Output 08/15/16 08/16/16 08/16/16 22:59 06:59 14:59 Intake Total 140 180 Output Total 120 Balance 20 180 Intake: Intake, IV Amount 90 180 Right Forearm 90 180 Oral 50 0 Output: Chest Tube Drainage 120 Right Anterior Chest 120 Other: # Voids Urine, Voided 0 0 # Bowel Movements 1 0 - Physical Exam Head: Positive for: Atraumatic, Normocephalic Extroacular Muscles: Positive for: EOMI Conjunctiva: Positive for: Normal Mouth: Positive for: Dry Neck: Positive for: Normal Range of Motion Respiratory/Chest: Positive for: Decreased Breath Sounds Cardiovascular: Positive for: Bradycardic, Other Abdomen: Positive for: Normal Bowel Sounds, Other (right sided anterior chest tube ). Negative for: Tenderness, Distention Upper Extremity: Positive for: Normal Inspection Lower Extremity: Positive for: Normal Inspection, Edema, NORMAL PULSES. Negative for: CALF TENDERNESS Neurological: Positive for: GCS=15, CN II-XII Intact Skin: Positive for: Warm, Dry Psychiatric: Positive for: Alert - Medications Active Medications: Active Medications Generic Name Dose Route Start Last Admin Trade Name Freq PRN Reason Stop Dose Admin Acetaminophen 650 mg 08/14/16 21:40 08/14/16 22:05 Tylenol 650mg/20.3ml Solution Ud PO 650 mg Q4 PRN Administration pain Aspirin 81 mg 08/09/16 10:00 08/11/16 09:34 Aspirin Chewable PO 81 mg DAILY REKHA Administration Bisoprolol Fumarate 5 mg 08/09/16 07:30 08/11/16 09:33 Zebeta PO Not Given ACB REKHA Calcium Acetate 667 mg 08/08/16 17:00 08/15/16 18:05 Phoslo PO Not Given TIDCC REKHA Diphenhydramine HCl 25 mg 08/08/16 16:53 Benadryl PO Q4H PRN allergies Epoetin Sly 10,000 unit 08/12/16 09:00 08/15/16 12:05 Procrit IV 10,000 unit MWF REKHA Administration Haloperidol Lactate 0.5 mg 08/15/16 19:42 08/15/16 19:59 Haldol IVP 08/17/16 19:43 0.5 mg Q12 PRN Administration Agitation Hydrocortisone Sodium Succinate 50 mg 08/15/16 10:00 08/15/16 09:25 Solu-Cortef IV 50 mg DAILY REKHA Administration Cefepime HCl 50 mls @ 100 mls/hr 08/10/16 10:00 08/15/16 12:55 Maxipime Iv 1 Gm Premix IVPB 100 mls/hr DAILY REKHA Administration Dextrose 500 mls @ 30 mls/hr 08/15/16 19:45 08/15/16 19:53 Dextrose 5% In Water IV 08/16/16 12:24 30 mls/hr .[id number] REKHA Administration Levothyroxine Sodium 300 mcg 08/13/16 10:00 08/15/16 14:43 Levothyroxine IV 300 mcg DAILY REKHA Administration Lidocaine HCl 15 ml 08/15/16 08:59 08/15/16 20:01 Lidocaine 2% Viscous PO 15 ml TID PRN Administration Pain, Mild (1-3) Metoprolol Tartrate 2.5 mg 08/15/16 22:00 08/15/16 22:01 Lopressor IVP 2.5 mg Q8 REKHA Administration Pantoprazole Sodium 40 mg 08/13/16 10:00 08/15/16 09:25 Protonix Inj IVP 40 mg DAILY REKHA Administration Rosuvastatin Calcium 10 mg 08/09/16 22:00 08/15/16 22:02 Crestor PO Not Given HS REKHA - Patient Studies Lab Studies: Microbiology Studies 08/12/16 14:00 Gram Stain - Final Pleural Fluid Body Fluid Culture - Preliminary NO GROWTH AFTER 3 DAYS Fungal Culture - Preliminary Lab Studies 08/16/16 08/16/16 08/15/16 Range/Units 06:34 06:34 22:30 WBC 8.9 (4.8-10.8) K/uL RBC 3.25 L (3.80-5.20) Mil/uL Hgb 10.2 L (11.0-16.0) g/dL Hct 30.8 L (34.0-47.0) % MCV 95.0 (81.0-99.0) fL MCH 31.3 H (27.0-31.0) pg MCHC 33.0 (33.0-37.0) g/dL RDW 19.9 H (11.5-14.5) % Plt Count 121 L (130-400) K/uL MPV 9.2 (7.2-11.7) fL Neut % (Auto) 80.0 H (50.0-75.0) % Lymph % (Auto) 8.6 L (20.0-40.0) % Rich % (Auto) 11.0 H (0.0-10.0) % Eos % (Auto) 0.2 (0.0-4.0) % Baso % (Auto) 0.2 (0.0-2.0) % Neut # 7.1 H (1.8-7.0) K/uL Lymph # 0.8 L (1.0-4.3) K/uL Rich # 1.0 H (0.0-0.8) K/uL Eos # 0.0 (0.0-0.7) K/uL Baso # 0.0 (0.0-0.2) K/uL Sodium 137 (132-148) mmol/L Potassium 3.3 L (3.6-5.2) mmol/L Chloride 97 L (98-107) mmol/L Carbon Dioxide 27 (22-30) mmol/L Anion Gap 16 (10-20) BUN 31 H (7-17) mg/dL Creatinine 1.8 H (0.7-1.2) MG/DL Est GFR ( Amer) 33 Est GFR (Non-Af Amer) 28 POC Glucose (mg/dL) (65-110) mg/dL Random Glucose 157 H (65-105) mg/dL Calcium 8.4 L (8.6-10.4) mg/dl Phosphorus 2.5 (2.5-4.5) mg/dL Magnesium 2.1 (1.6-2.3) mg/dL Total Bilirubin 2.3 H (0.2-1.3) mg/dL AST 35 (14-36) U/L ALT 15 (9-52) U/L Alkaline Phosphatase 139 H (38-126) U/L Total Protein 7.1 (6.3-8.3) g/dL Albumin 3.0 L (3.5-5.0) g/dL Globulin 4.1 H (2.2-3.9) gm/dL Albumin/Globulin Ratio 0.7 L (1.0-2.1) TSH 3rd Generation (0.46-4.68) mIU/L Stool Occult Blood Negative (NEGATIVE) 08/15/16 08/15/16 08/15/16 Range/Units 21:07 16:05 11:31 WBC (4.8-10.8) K/uL RBC (3.80-5.20) Mil/uL Hgb (11.0-16.0) g/dL Hct (34.0-47.0) % MCV (81.0-99.0) fL MCH (27.0-31.0) pg MCHC (33.0-37.0) g/dL RDW (11.5-14.5) % Plt Count (130-400) K/uL MPV (7.2-11.7) fL Neut % (Auto) (50.0-75.0) % Lymph % (Auto) (20.0-40.0) % Rich % (Auto) (0.0-10.0) % Eos % (Auto) (0.0-4.0) % Baso % (Auto) (0.0-2.0) % Neut # (1.8-7.0) K/uL Lymph # (1.0-4.3) K/uL Rich # (0.0-0.8) K/uL Eos # (0.0-0.7) K/uL Baso # (0.0-0.2) K/uL Sodium (132-148) mmol/L Potassium (3.6-5.2) mmol/L Chloride (98-107) mmol/L Carbon Dioxide (22-30) mmol/L Anion Gap (10-20) BUN (7-17) mg/dL Creatinine (0.7-1.2) MG/DL Est GFR ( Amer) Est GFR (Non-Af Amer) POC Glucose (mg/dL) 181 H 141 H 125 H (65-110) mg/dL Random Glucose (65-105) mg/dL Calcium (8.6-10.4) mg/dl Phosphorus (2.5-4.5) mg/dL Magnesium (1.6-2.3) mg/dL Total Bilirubin (0.2-1.3) mg/dL AST (14-36) U/L ALT (9-52) U/L Alkaline Phosphatase (38-126) U/L Total Protein (6.3-8.3) g/dL Albumin (3.5-5.0) g/dL Globulin (2.2-3.9) gm/dL Albumin/Globulin Ratio (1.0-2.1) TSH 3rd Generation (0.46-4.68) mIU/L Stool Occult Blood (NEGATIVE) 08/15/16 Range/Units 06:33 WBC (4.8-10.8) K/uL RBC (3.80-5.20) Mil/uL Hgb (11.0-16.0) g/dL Hct (34.0-47.0) % MCV (81.0-99.0) fL MCH (27.0-31.0) pg MCHC (33.0-37.0) g/dL RDW (11.5-14.5) % Plt Count (130-400) K/uL MPV (7.2-11.7) fL Neut % (Auto) (50.0-75.0) % Lymph % (Auto) (20.0-40.0) % Rich % (Auto) (0.0-10.0) % Eos % (Auto) (0.0-4.0) % Baso % (Auto) (0.0-2.0) % Neut # (1.8-7.0) K/uL Lymph # (1.0-4.3) K/uL Rich # (0.0-0.8) K/uL Eos # (0.0-0.7) K/uL Baso # (0.0-0.2) K/uL Sodium (132-148) mmol/L Potassium (3.6-5.2) mmol/L Chloride (98-107) mmol/L Carbon Dioxide (22-30) mmol/L Anion Gap (10-20) BUN (7-17) mg/dL Creatinine (0.7-1.2) MG/DL Est GFR ( Amer) Est GFR (Non-Af Amer) POC Glucose (mg/dL) (65-110) mg/dL Random Glucose (65-105) mg/dL Calcium (8.6-10.4) mg/dl Phosphorus (2.5-4.5) mg/dL Magnesium (1.6-2.3) mg/dL Total Bilirubin (0.2-1.3) mg/dL AST (14-36) U/L ALT (9-52) U/L Alkaline Phosphatase (38-126) U/L Total Protein (6.3-8.3) g/dL Albumin (3.5-5.0) g/dL Globulin (2.2-3.9) gm/dL Albumin/Globulin Ratio (1.0-2.1) TSH 3rd Generation 9.46 H (0.46-4.68) mIU/L Stool Occult Blood (NEGATIVE) Laboratory Results - last 24 hr 08/15/16 08/15/16 08/15/16 06:33 11:31 16:05 WBC RBC Hgb Hct MCV MCH MCHC RDW Plt Count MPV Neut % (Auto) Lymph % (Auto) Rich % (Auto) Eos % (Auto) Baso % (Auto) Neut # Lymph # Rich # Eos # Baso # Sodium Potassium Chloride Carbon Dioxide Anion Gap BUN Creatinine Est GFR ( Amer) Est GFR (Non-Af Amer) POC Glucose (mg/dL) 125 H 141 H Random Glucose Calcium Phosphorus Magnesium Total Bilirubin AST ALT Alkaline Phosphatase Total Protein Albumin Globulin Albumin/Globulin Ratio TSH 3rd Generation 9.46 H Stool Occult Blood 08/15/16 08/15/16 08/16/16 21:07 22:30 06:34 WBC 8.9 RBC 3.25 L Hgb 10.2 L Hct 30.8 L MCV 95.0 MCH 31.3 H MCHC 33.0 RDW 19.9 H Plt Count 121 L MPV 9.2 Neut % (Auto) 80.0 H Lymph % (Auto) 8.6 L Rich % (Auto) 11.0 H Eos % (Auto) 0.2 Baso % (Auto) 0.2 Neut # 7.1 H Lymph # 0.8 L Rich # 1.0 H Eos # 0.0 Baso # 0.0 Sodium Potassium Chloride Carbon Dioxide Anion Gap BUN Creatinine Est GFR ( Amer) Est GFR (Non-Af Amer) POC Glucose (mg/dL) 181 H Random Glucose Calcium Phosphorus Magnesium Total Bilirubin AST ALT Alkaline Phosphatase Total Protein Albumin Globulin Albumin/Globulin Ratio TSH 3rd Generation Stool Occult Blood Negative 08/16/16 06:34 WBC RBC Hgb Hct MCV MCH MCHC RDW Plt Count MPV Neut % (Auto) Lymph % (Auto) Rich % (Auto) Eos % (Auto) Baso % (Auto) Neut # Lymph # Rich # Eos # Baso # Sodium 137 Potassium 3.3 L Chloride 97 L Carbon Dioxide 27 Anion Gap 16 BUN 31 H Creatinine 1.8 H Est GFR ( Amer) 33 Est GFR (Non-Af Amer) 28 POC Glucose (mg/dL) Random Glucose 157 H Calcium 8.4 L Phosphorus 2.5 Magnesium 2.1 Total Bilirubin 2.3 H AST 35 ALT 15 Alkaline Phosphatase 139 H Total Protein 7.1 Albumin 3.0 L Globulin 4.1 H Albumin/Globulin Ratio 0.7 L TSH 3rd Generation Stool Occult Blood Fingerstick Blood Sugar Results: 165 Critical Care Progress Note - Nutrition Nutrition: Nutrition Category Date Time Status Regular Diet [DIET] Diets 08/14/16 Dinner Active Assessment/Plan - Assessment and Plan (Free Text) Assessment: 75 year old female with ESRD currently on dialysis MWF presented with CHF, in need of dialysis with recurrent right sided pleural effusion. Plan: Neuro: Upon admission patient was altered. Today patient is still altered but more alert. CV: -CHF -Hx CAD: ASA, Crestor -HTN - Started on Lopressor 2.5mg IVP Q8H REKHA Pulm: -Right sided recurrent pleural effusions - Dr. Walker consulted for thoracentesis - help appreciated - 1800mL was removed. -Ordered CT Chest- revealed right sided hydropneumothorax. Patient is comfortable, in no respiratory distress, 98% on 2L NC. -CT was consulted - Dr. Soto - S/P anterior chest tube insertion POD #4 currently on suction, output of 120cc/ 24hour Renal: -ESRD on HD MWF -Continued Phoslo -Dr. Mcfarland - help appreciated Heme: -Patient was transfused total of 2 PRBCs -Current 10.2 -Monitor Endo: - DM: Upon admission patient was hypoglycemic - Hypothyroidism: Synthroid 300 mcg IV ACB, continue to monitor TSH currently 9.46, Hydrocortiosone 50mg IV daily. ID: -Afebrile, no white count -Initial UA showed UTI- Cefepime Q12H -No growth on urine or blood cultures -Left foot ulcer - f/u wound care Prophylaxis: -GI: Protonix 40mg IVP daily -DVT: SCDs, VTE contraindicated due to thrombocytopenia -Heart Healthy Diet, patient may need NGT or Peg tube if she continues to not eat. DW Derrick Costa DO, PGY-1 <Jonatan Scales - Last Filed: 08/16/16 17:41> CCU Objective - Vital Signs / Intake & Output Vital Signs (Last 4 hours): Vital Signs Temp Pulse Resp BP Pulse Ox 08/16/16 16:58 82 14 123/73 99 08/16/16 16:00 97.3 F L 76 14 121/62 98 08/16/16 15:00 72 17 144/60 99 08/16/16 14:00 79 12 132/55 L 100 Intake and Output (Last 8hrs): Intake & Output 08/16/16 08/16/16 08/16/16 06:59 14:59 22:59 Intake Total 180 280 320 Balance 180 280 320 Weight 107 lb 14.4 oz Intake: Intake, IV Amount 180 230 0 Right Forearm 180 230 0 Oral 0 50 320 Other: # Voids Urine, Voided 0 0 0 # Bowel Movements 0 0 0 - Medications Active Medications: Active Medications Generic Name Dose Route Start Last Admin Trade Name Freq PRN Reason Stop Dose Admin Acetaminophen 650 mg 08/14/16 21:40 08/14/16 22:05 Tylenol 650mg/20.3ml Solution Ud PO 650 mg Q4 PRN Administration pain Aspirin 81 mg 08/09/16 10:00 08/16/16 09:42 Aspirin Chewable PO Not Given DAILY REKHA Calcium Acetate 667 mg 08/08/16 17:00 08/16/16 16:46 Phoslo PO 667 mg TIDCC REKHA Administration Diphenhydramine HCl 25 mg 08/08/16 16:53 Benadryl PO Q4H PRN allergies Epoetin Sly 10,000 unit 08/12/16 09:00 08/15/16 12:05 Procrit IV 10,000 unit MWF REKHA Administration Haloperidol Lactate 0.5 mg 08/15/16 19:42 08/15/16 19:59 Haldol IVP 08/17/16 19:43 0.5 mg Q12 PRN Administration Agitation Hydrocortisone Sodium Succinate 50 mg 08/15/16 10:00 08/16/16 09:45 Solu-Cortef IV 50 mg DAILY REKHA Administration Cefepime HCl 50 mls @ 100 mls/hr 08/10/16 10:00 08/16/16 09:43 Maxipime Iv 1 Gm Premix IVPB 100 mls/hr DAILY REKHA Administration Insulin Human Regular 0 unit 08/16/16 16:30 08/16/16 16:46 Novolin R SC 3 unit ACHS REKHA Administration Protocol Levothyroxine Sodium 300 mcg 08/13/16 10:00 08/16/16 10:14 Levothyroxine IV 300 mcg DAILY REKHA Administration Lidocaine HCl 15 ml 08/15/16 08:59 08/15/16 20:01 Lidocaine 2% Viscous PO 15 ml TID PRN Administration Pain, Mild (1-3) Metoprolol Tartrate 2.5 mg 08/15/16 22:00 08/16/16 14:37 Lopressor IVP 2.5 mg Q8 REKHA Administration Pantoprazole Sodium 40 mg 08/13/16 10:00 08/16/16 09:44 Protonix Inj IVP 40 mg DAILY REKHA Administration Rosuvastatin Calcium 10 mg 08/09/16 22:00 08/15/16 22:02 Crestor PO Not Given HS REKHA - Patient Studies Lab Studies: Microbiology Studies 08/15/16 13:28 Mycobacterial Culture - Preliminary Other: Please Indicate 08/12/16 14:00 Gram Stain - Final Pleural Fluid Body Fluid Culture - Final No growth. Fungal Culture - Preliminary Lab Studies 08/16/16 08/16/16 08/16/16 Range/Units 16:17 11:46 07:56 WBC (4.8-10.8) K/uL RBC (3.80-5.20) Mil/uL Hgb (11.0-16.0) g/dL Hct (34.0-47.0) % MCV (81.0-99.0) fL MCH (27.0-31.0) pg MCHC (33.0-37.0) g/dL RDW (11.5-14.5) % Plt Count (130-400) K/uL MPV (7.2-11.7) fL Neut % (Auto) (50.0-75.0) % Lymph % (Auto) (20.0-40.0) % Rich % (Auto) (0.0-10.0) % Eos % (Auto) (0.0-4.0) % Baso % (Auto) (0.0-2.0) % Neut # (1.8-7.0) K/uL Lymph # (1.0-4.3) K/uL Rich # (0.0-0.8) K/uL Eos # (0.0-0.7) K/uL Baso # (0.0-0.2) K/uL Neutrophils % (Manual) (50-75) % Lymphocytes % (Manual) (20-40) % Monocytes % (Manual) (0-10) % Myelocytes % (0-0) % Toxic Granulation Platelet Estimate (NORMAL) Large Platelets Hypochromasia (manual) Poikilocytosis (manual Anisocytosis (manual) Macrocytosis (manual) Melia Cells Sodium (132-148) mmol/L Potassium (3.6-5.2) mmol/L Chloride (98-107) mmol/L Carbon Dioxide (22-30) mmol/L Anion Gap (10-20) BUN (7-17) mg/dL Creatinine (0.7-1.2) MG/DL Est GFR ( Amer) Est GFR (Non-Af Amer) POC Glucose (mg/dL) 291 H 191 H 184 H (65-110) mg/dL Random Glucose (65-105) mg/dL Calcium (8.6-10.4) mg/dl Phosphorus (2.5-4.5) mg/dL Magnesium (1.6-2.3) mg/dL Total Bilirubin (0.2-1.3) mg/dL AST (14-36) U/L ALT (9-52) U/L Alkaline Phosphatase (38-126) U/L Total Protein (6.3-8.3) g/dL Albumin (3.5-5.0) g/dL Globulin (2.2-3.9) gm/dL Albumin/Globulin Ratio (1.0-2.1) Stool Occult Blood (NEGATIVE) 08/16/16 08/16/16 08/15/16 Range/Units 06:34 06:34 22:30 WBC 8.9 (4.8-10.8) K/uL RBC 3.25 L (3.80-5.20) Mil/uL Hgb 10.2 L (11.0-16.0) g/dL Hct 30.8 L (34.0-47.0) % MCV 95.0 (81.0-99.0) fL MCH 31.3 H (27.0-31.0) pg MCHC 33.0 (33.0-37.0) g/dL RDW 19.9 H (11.5-14.5) % Plt Count 121 L (130-400) K/uL MPV 9.2 (7.2-11.7) fL Neut % (Auto) 80.0 H (50.0-75.0) % Lymph % (Auto) 8.6 L (20.0-40.0) % Rich % (Auto) 11.0 H (0.0-10.0) % Eos % (Auto) 0.2 (0.0-4.0) % Baso % (Auto) 0.2 (0.0-2.0) % Neut # 7.1 H (1.8-7.0) K/uL Lymph # 0.8 L (1.0-4.3) K/uL Rich # 1.0 H (0.0-0.8) K/uL Eos # 0.0 (0.0-0.7) K/uL Baso # 0.0 (0.0-0.2) K/uL Neutrophils % (Manual) 86 H (50-75) % Lymphocytes % (Manual) 6 L (20-40) % Monocytes % (Manual) 7 (0-10) % Myelocytes % 1 H (0-0) % Toxic Granulation Present Platelet Estimate Slightly decreased L (NORMAL) Large Platelets Present Hypochromasia (manual) Slight Poikilocytosis (manual Slight Anisocytosis (manual) Slight Macrocytosis (manual) Slight Melia Cells Slight Sodium 137 (132-148) mmol/L Potassium 3.3 L (3.6-5.2) mmol/L Chloride 97 L (98-107) mmol/L Carbon Dioxide 27 (22-30) mmol/L Anion Gap 16 (10-20) BUN 31 H (7-17) mg/dL Creatinine 1.8 H (0.7-1.2) MG/DL Est GFR ( Amer) 33 Est GFR (Non-Af Amer) 28 POC Glucose (mg/dL) (65-110) mg/dL Random Glucose 157 H (65-105) mg/dL Calcium 8.4 L (8.6-10.4) mg/dl Phosphorus 2.5 (2.5-4.5) mg/dL Magnesium 2.1 (1.6-2.3) mg/dL Total Bilirubin 2.3 H (0.2-1.3) mg/dL AST 35 (14-36) U/L ALT 15 (9-52) U/L Alkaline Phosphatase 139 H (38-126) U/L Total Protein 7.1 (6.3-8.3) g/dL Albumin 3.0 L (3.5-5.0) g/dL Globulin 4.1 H (2.2-3.9) gm/dL Albumin/Globulin Ratio 0.7 L (1.0-2.1) Stool Occult Blood Negative (NEGATIVE) 08/15/16 Range/Units 21:07 WBC (4.8-10.8) K/uL RBC (3.80-5.20) Mil/uL Hgb (11.0-16.0) g/dL Hct (34.0-47.0) % MCV (81.0-99.0) fL MCH (27.0-31.0) pg MCHC (33.0-37.0) g/dL RDW (11.5-14.5) % Plt Count (130-400) K/uL MPV (7.2-11.7) fL Neut % (Auto) (50.0-75.0) % Lymph % (Auto) (20.0-40.0) % Rich % (Auto) (0.0-10.0) % Eos % (Auto) (0.0-4.0) % Baso % (Auto) (0.0-2.0) % Neut # (1.8-7.0) K/uL Lymph # (1.0-4.3) K/uL Rich # (0.0-0.8) K/uL Eos # (0.0-0.7) K/uL Baso # (0.0-0.2) K/uL Neutrophils % (Manual) (50-75) % Lymphocytes % (Manual) (20-40) % Monocytes % (Manual) (0-10) % Myelocytes % (0-0) % Toxic Granulation Platelet Estimate (NORMAL) Large Platelets Hypochromasia (manual) Poikilocytosis (manual Anisocytosis (manual) Macrocytosis (manual) Melia Cells Sodium (132-148) mmol/L Potassium (3.6-5.2) mmol/L Chloride (98-107) mmol/L Carbon Dioxide (22-30) mmol/L Anion Gap (10-20) BUN (7-17) mg/dL Creatinine (0.7-1.2) MG/DL Est GFR ( Amer) Est GFR (Non-Af Amer) POC Glucose (mg/dL) 181 H (65-110) mg/dL Random Glucose (65-105) mg/dL Calcium (8.6-10.4) mg/dl Phosphorus (2.5-4.5) mg/dL Magnesium (1.6-2.3) mg/dL Total Bilirubin (0.2-1.3) mg/dL AST (14-36) U/L ALT (9-52) U/L Alkaline Phosphatase (38-126) U/L Total Protein (6.3-8.3) g/dL Albumin (3.5-5.0) g/dL Globulin (2.2-3.9) gm/dL Albumin/Globulin Ratio (1.0-2.1) Stool Occult Blood (NEGATIVE) Laboratory Results - last 24 hr 08/15/16 08/15/16 08/16/16 21:07 22:30 06:34 WBC 8.9 RBC 3.25 L Hgb 10.2 L Hct 30.8 L MCV 95.0 MCH 31.3 H MCHC 33.0 RDW 19.9 H Plt Count 121 L MPV 9.2 Neut % (Auto) 80.0 H Lymph % (Auto) 8.6 L Rich % (Auto) 11.0 H Eos % (Auto) 0.2 Baso % (Auto) 0.2 Neut # 7.1 H Lymph # 0.8 L Rich # 1.0 H Eos # 0.0 Baso # 0.0 Neutrophils % (Manual) 86 H Lymphocytes % (Manual) 6 L Monocytes % (Manual) 7 Myelocytes % 1 H Toxic Granulation Present Platelet Estimate Slightly decreased L Large Platelets Present Hypochromasia (manual) Slight Poikilocytosis (manual Slight Anisocytosis (manual) Slight Macrocytosis (manual) Slight [place] Cells Slight Sodium Potassium Chloride Carbon Dioxide Anion Gap BUN Creatinine Est GFR ( Amer) Est GFR (Non-Af Amer) POC Glucose (mg/dL) 181 H Random Glucose Calcium Phosphorus Magnesium Total Bilirubin AST ALT Alkaline Phosphatase Total Protein Albumin Globulin Albumin/Globulin Ratio Stool Occult Blood Negative 08/16/16 08/16/16 08/16/16 06:34 07:56 11:46 WBC RBC Hgb Hct MCV MCH MCHC RDW Plt Count MPV Neut % (Auto) Lymph % (Auto) Rich % (Auto) Eos % (Auto) Baso % (Auto) Neut # Lymph # Rich # Eos # Baso # Neutrophils % (Manual) Lymphocytes % (Manual) Monocytes % (Manual) Myelocytes % Toxic Granulation Platelet Estimate Large Platelets Hypochromasia (manual) Poikilocytosis (manual Anisocytosis (manual) Macrocytosis (manual) Melia Cells Sodium 137 Potassium 3.3 L Chloride 97 L Carbon Dioxide 27 Anion Gap 16 BUN 31 H Creatinine 1.8 H Est GFR ( Amer) 33 Est GFR (Non-Af Amer) 28 POC Glucose (mg/dL) 184 H 191 H Random Glucose 157 H Calcium 8.4 L Phosphorus 2.5 Magnesium 2.1 Total Bilirubin 2.3 H AST 35 ALT 15 Alkaline Phosphatase 139 H Total Protein 7.1 Albumin 3.0 L Globulin 4.1 H Albumin/Globulin Ratio 0.7 L Stool Occult Blood 08/16/16 16:17 WBC RBC Hgb Hct MCV MCH MCHC RDW Plt Count MPV Neut % (Auto) Lymph % (Auto) Rich % (Auto) Eos % (Auto) Baso % (Auto) Neut # Lymph # Rich # Eos # Baso # Neutrophils % (Manual) Lymphocytes % (Manual) Monocytes % (Manual) Myelocytes % Toxic Granulation Platelet Estimate Large Platelets Hypochromasia (manual) Poikilocytosis (manual Anisocytosis (manual) Macrocytosis (manual) Melia Cells Sodium Potassium Chloride Carbon Dioxide Anion Gap BUN Creatinine Est GFR ( Amer) Est GFR (Non-Af Amer) POC Glucose (mg/dL) 291 H Random Glucose Calcium Phosphorus Magnesium Total Bilirubin AST ALT Alkaline Phosphatase Total Protein Albumin Globulin Albumin/Globulin Ratio Stool Occult Blood Critical Care Progress Note - Nutrition Nutrition: Nutrition Category Date Time Status Regular Diet [DIET] Diets 08/14/16 Dinner Active Attending/Attestation - Attestation I have personally seen and examined this patient.: Yes I have fully participated in the care of the patient.: Yes I have reviewed all pertinent clinical information: Yes Notes (Text): 08/16/16 17:40 Patient seen and examined in the intensive care unit. discussed with staff in the morning rounds. Status post chest tube insertion for hydropneumothorax day #4 Continue with hemodialysis Consider PEG placement
--- NOTE | 2016-08-16 09:20 | CP.PCM.PN ---
Subjective - Date & Time of Evaluation Date of Evaluation: 08/16/16 Time of Evaluation: - Subjective Subjective: Stable dialysis 08/[address] Not eating much Remains confused ?PEG placement Objective - Vital Signs/Intake and Output Vital Signs (last 24 hours): Temp Pulse Resp BP Pulse Ox 97.8 F 73 16 124/52 L 100 08/16/16 03:52 08/16/16 03:52 08/16/16 03:52 08/16/16 03:52 08/16/16 03:52 Intake and Output: 08/16/16 08/16/16 06:59 18:59 Intake Total 270 Balance 270 - Medications Medications: Current Medications Acetaminophen (Tylenol 650mg/20.3ml Solution Ud) 650 mg PO Q4 PRN PRN Reason: pain Last Admin: 08/14/16 22:05 Dose: 650 mg Aspirin (Aspirin Chewable) 81 mg PO DAILY [facility] Last Admin: 08/11/16 09:34 Dose: 81 mg Bisoprolol Fumarate (Zebeta) 5 mg PO ACB [facility] Last Admin: 08/11/16 09:33 Dose: Not Given Calcium Acetate (Phoslo) 667 mg PO TIDCC [facility] Last Admin: 08/16/16 08:09 Dose: Not Given Diphenhydramine HCl (Benadryl) 25 mg PO Q4H PRN PRN Reason: allergies Epoetin Sly (Procrit) 10,000 unit IV MWF [facility] Last Admin: 08/15/16 12:05 Dose: 10,000 unit Haloperidol Lactate (Haldol) 0.5 mg IVP Q12 PRN PRN Reason: Agitation Stop: 08/17/16 19:43 Last Admin: 08/15/16 19:59 Dose: 0.5 mg Hydrocortisone Sodium Succinate (Solu-Cortef) 50 mg IV DAILY [facility] Last Admin: 08/15/16 09:25 Dose: 50 mg Cefepime HCl (Maxipime Iv 1 Gm Premix) 50 mls @ 100 mls/hr IVPB DAILY [facility] Last Admin: 08/15/16 12:55 Dose: 100 mls/hr Dextrose (Dextrose 5% In Water) 500 mls @ 30 mls/hr IV .[id number] [facility] Stop: 08/16/16 12:24 Last Admin: 04/24/17 19:53 Dose: 30 mls/hr Levothyroxine Sodium (Levothyroxine) 300 mcg IV DAILY [facility] Last Admin: 08/15/16 14:43 Dose: 300 mcg Lidocaine HCl (Lidocaine 2% Viscous) 15 ml PO TID PRN PRN Reason: Pain, Mild (1-3) Last Admin: 08/15/16 20:01 Dose: 15 ml Metoprolol Tartrate (Lopressor) 2.5 mg IVP Q8 [facility] Last Admin: 08/15/16 22:01 Dose: 2.5 mg Pantoprazole Sodium (Protonix Inj) 40 mg IVP DAILY [facility] Last Admin: 08/15/16 09:25 Dose: 40 mg Rosuvastatin Calcium (Crestor) 10 mg PO HS [facility] Last Admin: 08/15/16 22:02 Dose: Not Given - Labs Labs: 08/16/16 06:34 08/16/16 06:34 PT 14.7 SECONDS (9.7-12.2) H 08/12/16 06:00 INR 1.3 08/12/16 06:00 APTT 40 SECONDS (21-34) H 08/12/16 06:00 - Constitutional Appears: Cachectic, Chronically Ill - Head Exam Head Exam: ATRAUMATIC, NORMAL INSPECTION - Eye Exam Eye Exam: EOMI, Normal appearance - Neck Exam Neck Exam: Normal Inspection. absent: Tenderness - Respiratory Exam Respiratory Exam: Decreased Breath Sounds, Clear to Ausculation Bilateral, NORMAL BREATHING PATTERN - Cardiovascular Exam Cardiovascular Exam: REGULAR RHYTHM, +S1 - GI/Abdominal Exam GI & Abdominal Exam: Soft. absent: Tenderness - Extremities Exam Extremities Exam: Normal Inspection. absent: Tenderness - Neurological Exam Neurological Exam: Awake, CN II-XII Intact - Skin Skin Exam: Dry, Warm Assessment and Plan (1) Diabetes mellitus Status: Acute (2) CHF (congestive heart failure) Status: Acute (3) Secondary hyperparathyroidism Status: Acute (4) ESRD (end stage renal disease) on dialysis Status: Acute (5) Hydropneumothorax Status: Acute - Assessment and Plan (Free Text) Plan: CT care as per surgery Dialysis MWF- minimal UF Consider PEG
[2016-08-16] MEDS: Cefepime IV 1 gm in Dextrose 50 ML IVPB SCH (09:43)
[2016-08-16 09:46] LABS: MYELOCYTE 1 % (0-0); NEUTROPHIL 86 % (50-75); TOTAL CELLS COUNTED 100
[2016-08-16 09:48] LABS: LARGE PLATELETS PRESENT
--- NOTE | 2016-08-16 10:13 | RAD ---
HISTORY: chest tube placement COMPARISON: 08/15/2016 FINDINGS: LUNGS: Lines and tubes in stable position. Persistent loculated right moderate hydropneumothorax. Venous congestion. Right paratracheal airspace opacity. PLEURA: As above. CARDIOVASCULAR: Status post median sternotomy. OSSEOUS STRUCTURES: Degenerative changes in the spine and shoulders. Sclerotic foci projecting over the left proximal humerus. Left axillary stent in place. VISUALIZED UPPER ABDOMEN: Normal. OTHER FINDINGS: None. IMPRESSION: Lines and tubes in stable position. Persistent loculated right moderate hydropneumothorax. Venous congestion. Right paratracheal airspace opacity.
[2016-08-16] MEDS: Levothyroxine 500 mcg (0.5 mg) Inj IV SCH (10:14)
--- NOTE | 2016-08-16 10:54 | CP.PCM.PN ---
Subjective - Date & Time of Evaluation Date of Evaluation: 08/16/16 Time of Evaluation: 07:00 - Subjective Subjective: THORACIC SURGERY PROGRESS NOTE FOR DR. RODRIGUES Patient seen and examined at bedside in the ICU with brother present. Patient remains confused. Per the ICU staff, patient is not eating, she refuses to swallow even when spoon fed. NG tube placement was attempted yesterday, but she was uncooperative and refused it. Palliative care consult was requested by the ICU team. She continues to have less drainage each day from the chest tube. Chest tube remains in place on suction. She is going for dialysis today Objective - Vital Signs/Intake and Output Vital Signs (last 24 hours): Temp Pulse Resp BP Pulse Ox 97.3 F L 70 12 127/58 L 99 08/16/16 08:00 08/16/16 09:00 08/16/16 09:00 08/16/16 09:00 08/16/16 09:00 Intake and Output: 08/16/16 08/16/16 06:59 18:59 Intake Total 270 90 Balance 270 90 - Medications Medications: Current Medications Acetaminophen (Tylenol 650mg/20.3ml Solution Ud) 650 mg PO Q4 PRN PRN Reason: pain Last Admin: 08/14/16 22:05 Dose: 650 mg Aspirin (Aspirin Chewable) 81 mg PO DAILY [facility] Last Admin: 08/16/16 09:42 Dose: Not Given Bisoprolol Fumarate (Zebeta) 5 mg PO ACB [facility] Last Admin: 08/11/16 09:33 Dose: Not Given Calcium Acetate (Phoslo) 667 mg PO TIDCC [facility] Last Admin: 08/16/16 08:09 Dose: Not Given Diphenhydramine HCl (Benadryl) 25 mg PO Q4H PRN PRN Reason: allergies Epoetin Sly (Procrit) 10,000 unit IV MWF [facility] Last Admin: 08/15/16 12:05 Dose: 10,000 unit Haloperidol Lactate (Haldol) 0.5 mg IVP Q12 PRN PRN Reason: Agitation Stop: 08/17/16 19:43 Last Admin: 08/15/16 19:59 Dose: 0.5 mg Hydrocortisone Sodium Succinate (Solu-Cortef) 50 mg IV DAILY [facility] Last Admin: 08/16/16 09:45 Dose: 50 mg Cefepime HCl (Maxipime Iv 1 Gm Premix) 50 mls @ 100 mls/hr IVPB DAILY [facility] Last Admin: 08/16/16 09:43 Dose: 100 mls/hr Dextrose (Dextrose 5% In Water) 500 mls @ 30 mls/hr IV .[id number] [facility] Stop: 08/16/16 12:24 Last Admin: 08/15/16 19:53 Dose: 30 mls/hr Levothyroxine Sodium (Levothyroxine) 300 mcg IV DAILY [facility] Last Admin: 08/16/16 10:14 Dose: 300 mcg Lidocaine HCl (Lidocaine 2% Viscous) 15 ml PO TID PRN PRN Reason: Pain, Mild (1-3) Last Admin: 08/15/16 20:01 Dose: 15 ml Metoprolol Tartrate (Lopressor) 2.5 mg IVP Q8 [facility] Last Admin: 08/15/16 22:01 Dose: 2.5 mg Pantoprazole Sodium (Protonix Inj) 40 mg IVP DAILY [facility] Last Admin: 08/16/16 09:44 Dose: 40 mg Rosuvastatin Calcium (Crestor) 10 mg PO HS [facility] Last Admin: 08/15/16 22:02 Dose: Not Given - Labs Labs: 08/16/16 06:34 08/16/16 06:34 PT 14.7 SECONDS (9.7-12.2) H 08/12/16 06:00 INR 1.3 08/12/16 06:00 APTT 40 SECONDS (21-34) H 08/12/16 06:00 - Constitutional Appears: Non-toxic, No Acute Distress - Head Exam Head Exam: NORMOCEPHALIC - Respiratory Exam Respiratory Exam: NORMAL BREATHING PATTERN Additional comments: Right chest tube in place on suction with 180cc output over past 24 hours Dressing clean/dry/intact - Cardiovascular Exam Cardiovascular Exam: +S1, +S2. absent: Tachycardia - Neurological Exam Neurological Exam: Awake - Skin Skin Exam: Dry, Normal Color, Warm Assessment and Plan - Assessment and Plan (Free Text) Assessment: 75yo F with hydropneumothorax after thoracentesis, now s/p Right chest tube placement POD#4 - Afebrile, VSS, O2 sat 99-100% - Hemoglobin 10.2 this morning, stable from yesterday - Right chest tube on suction, with 180cc over past 24 hours - Dressing clean/dry/intact - Daily CXRs, continues to have Right hydropneumothorax on CXR this AM - Chest tube will remain in place while patient is in the hospital - Discussed plan with Dr. Brittany Griffith PGY-2
--- NOTE | 2016-08-16 14:17 | CP.PCM.PN ---
Subjective - Date & Time of Evaluation Date of Evaluation: 08/16/16 Time of Evaluation: 14:14 - Subjective Subjective: Pt s/e. Management plan discussed with residents on rounds. Will remove chest tube once d/c plan is finalized, and make arrangements with IR to remove effusion prn. Objective - Vital Signs/Intake and Output Vital Signs (last 24 hours): Temp Pulse Resp BP Pulse Ox 96.9 F L 70 13 120/47 L 100 08/16/16 12:00 08/16/16 12:00 08/16/16 12:00 08/16/16 12:00 08/16/16 12:00 Intake and Output: 08/16/16 08/16/16 06:59 18:59 Intake Total 270 200 Balance 270 200 - Medications Medications: Current Medications Acetaminophen (Tylenol 650mg/20.3ml Solution Ud) 650 mg PO Q4 PRN PRN Reason: pain Last Admin: 08/14/16 22:05 Dose: 650 mg Aspirin (Aspirin Chewable) 81 mg PO DAILY [facility] Last Admin: 08/16/16 09:42 Dose: Not Given Calcium Acetate (Phoslo) 667 mg PO TIDCC [facility] Last Admin: 08/16/16 11:41 Dose: Not Given Diphenhydramine HCl (Benadryl) 25 mg PO Q4H PRN PRN Reason: allergies Epoetin Sly (Procrit) 10,000 unit IV MWF [facility] Last Admin: 08/15/16 12:05 Dose: 10,000 unit Haloperidol Lactate (Haldol) 0.5 mg IVP Q12 PRN PRN Reason: Agitation Stop: 08/17/16 19:43 Last Admin: 08/15/16 19:59 Dose: 0.5 mg Hydrocortisone Sodium Succinate (Solu-Cortef) 50 mg IV DAILY [facility] Last Admin: 08/16/16 09:45 Dose: 50 mg Cefepime HCl (Maxipime Iv 1 Gm Premix) 50 mls @ 100 mls/hr IVPB DAILY [facility] Last Admin: 08/16/16 09:43 Dose: 100 mls/hr Levothyroxine Sodium (Levothyroxine) 300 mcg IV DAILY [facility] Last Admin: 08/16/16 10:14 Dose: 300 mcg Lidocaine HCl (Lidocaine 2% Viscous) 15 ml PO TID PRN PRN Reason: Pain, Mild (1-3) Last Admin: 08/15/16 20:01 Dose: 15 ml Metoprolol Tartrate (Lopressor) 2.5 mg IVP Q8 [facility] Last Admin: 08/15/16 22:01 Dose: 2.5 mg Pantoprazole Sodium (Protonix Inj) 40 mg IVP DAILY [facility] Last Admin: 08/16/16 09:44 Dose: 40 mg Rosuvastatin Calcium (Crestor) 10 mg PO HS [facility] Last Admin: 08/15/16 22:02 Dose: Not Given - Labs Labs: 08/16/16 06:34 08/16/16 06:34 PT 14.7 SECONDS (9.7-12.2) H 08/12/16 06:00 INR 1.3 08/12/16 06:00 APTT 40 SECONDS (21-34) H 08/12/16 06:00
--- NOTE | 2016-08-16 14:48 | CP.PCM.CON ---
History of Present Illness - History of Present Illness History of Present Illness: Palliative consult Requested by Shruthi BAHENA Reason: Goals of care Patient is 75 yo lady admitted from home where was found by her daughter in bed unresponsive. The BS was 66. After D %) patient 's condition improved,. As per daughter this has happened in the past as patient does not eat well and takes Lantus Insulin at bed time. Patient also had difficulties breathing. She has known Hx of multiple thoracentesis in the past. Patient is with chest tube. Prior thoracentesis on this admission removed 1800 cc of fluids. The latest CXR from this morning was suggestive for persistent, right, moderate hydropneumothorax. PMH: CAD with stents, DM, HTESRD with HD, recurrent right sided pleural effusions Soc. Hx: single, lives with her daughter Fam Hx Unknown Review of Systems - Review of Systems Review of Systems: generally weak, lethargic Past Patient History - Infectious Disease Hx of Infectious Diseases: None - Past Medical History & Family History Past Medical History?: Yes - Past Social History Smoking Status: Never Smoked - CARDIAC Hx Cardiac Disorders: Yes Hx Congestive Heart Failure: Yes Hx Hypertension: Yes Hx Peripheral Edema: Yes - PULMONARY Hx Respiratory Disorders: Yes Other/Comment: hx of thoracentesis - NEUROLOGICAL Hx Neurological Disorder: Yes Other/Comment: [id number] - HEENT Hx HEENT Problems: Yes Other/Comment: hard of hearing - RENAL Hx Chronic Kidney Disease: Yes Hx Dialysis: Yes Type of Dialysis Access: Hemodialysis Date of Last Dialysis Treatment: 08/05/16 - ENDOCRINE/METABOLIC Hx Hypothyroidism: Yes - HEMATOLOGICAL/ONCOLOGICAL Hx Blood Disorders: No - INTEGUMENTARY Hx Dermatological Problems: No - MUSCULOSKELETAL/RHEUMATOLOGICAL Hx Musculoskeletal Disorders: No Hx Falls: No - GASTROINTESTINAL Hx Gastrointestinal Disorders: No Hx Crohn's Disease: No Hx Diverticulitis: No - GENITOURINARY/GYNECOLOGICAL Hx Genitourinary Disorders: Yes Hx Incontinence: Yes Hx Urinary Tract Infection: Yes (2006) Other/Comment: ureteral stent placed 06/2015 - PSYCHIATRIC Hx Psychophysiologic Disorder: No Hx Substance Use: No - SURGICAL HISTORY Hx Surgeries: Yes Hx Coronary Artery Bypass Graft: Yes (2001) Hx Coronary Stent: Yes (x3 in 2006) - ANESTHESIA Hx Anesthesia: Yes Hx Anesthesia Reactions: No Hx Malignant Hyperthermia: No Has any member of the family had a problem w/ anesthesia?: No Meds Allergies/Adverse Reactions: Allergies Allergy/AdvReac Type Severity Reaction Status Date / Time Sulfa (Sulfonamide Allergy RASH Verified 05/27/16 10:31 Antibiotics) - Medications Medications: Current Medications Acetaminophen (Tylenol 650mg/20.3ml Solution Ud) 650 mg PO Q4 PRN PRN Reason: pain Last Admin: 08/14/16 22:05 Dose: 650 mg Aspirin (Aspirin Chewable) 81 mg PO DAILY [facility] Last Admin: 08/16/16 09:42 Dose: Not Given Calcium Acetate (Phoslo) 667 mg PO TIDCC [facility] Last Admin: 08/16/16 11:41 Dose: Not Given Diphenhydramine HCl (Benadryl) 25 mg PO Q4H PRN PRN Reason: allergies Epoetin Sly (Procrit) 10,000 unit IV MWF [facility] Last Admin: 08/15/16 12:05 Dose: 10,000 unit Haloperidol Lactate (Haldol) 0.5 mg IVP Q12 PRN PRN Reason: Agitation Stop: 08/17/16 19:43 Last Admin: 08/15/16 19:59 Dose: 0.5 mg Hydrocortisone Sodium Succinate (Solu-Cortef) 50 mg IV DAILY [facility] Last Admin: 08/16/16 09:45 Dose: 50 mg Cefepime HCl (Maxipime Iv 1 Gm Premix) 50 mls @ 100 mls/hr IVPB DAILY [facility] Last Admin: 08/16/16 09:43 Dose: 100 mls/hr Levothyroxine Sodium (Levothyroxine) 300 mcg IV DAILY [facility] Last Admin: 08/16/16 10:14 Dose: 300 mcg Lidocaine HCl (Lidocaine 2% Viscous) 15 ml PO TID PRN PRN Reason: Pain, Mild (1-3) Last Admin: 08/15/16 20:01 Dose: 15 ml Metoprolol Tartrate (Lopressor) 2.5 mg IVP Q8 [facility] Last Admin: 08/16/16 14:37 Dose: 2.5 mg Pantoprazole Sodium (Protonix Inj) 40 mg IVP DAILY [facility] Last Admin: 08/16/16 09:44 Dose: 40 mg Rosuvastatin Calcium (Crestor) 10 mg PO HS [facility] Last Admin: 08/15/16 22:02 Dose: Not Given Physical Exam - Constitutional Appears: Chronically Ill - Head Exam Head Exam: ATRAUMATIC, NORMAL INSPECTION, NORMOCEPHALIC - Eye Exam Eye Exam: EOMI, Normal appearance, PERRL Pupil Exam: NORMAL ACCOMODATION, PERRL - ENT Exam ENT Exam: Mucous Membranes Dry, Normal Exam - Neck Exam Neck exam: Positive for: Normal Inspection - Respiratory Exam Respiratory Exam: Decreased Breath Sounds Additional comments: Right chest tube to suction - Cardiovascular Exam Cardiovascular Exam: REGULAR RHYTHM, +S1, +S2 - GI/Abdominal Exam GI & Abdominal Exam: Normal Bowel Sounds - Rectal Exam Rectal Exam: Deferred - Extremities Exam Extremities exam: Positive for: normal inspection - Back Exam Back exam: NORMAL INSPECTION - Psychiatric Exam Psychiatric exam: Flat Affect - Skin Skin Exam: Pallor Results - Vital Signs Recent Vital Signs: Last Vital Signs Temp 96.9 F L 08/16/16 12:00 Pulse 70 08/16/16 12:00 Resp 13 08/16/16 12:00 BP 120/47 L 08/16/16 12:00 Pulse Ox 100 08/16/16 12:00 - Labs Result Diagrams: 08/16/16 06:34 08/16/16 06:34 Labs: Laboratory Results - last 24 hr 08/15/16 08/15/16 08/15/16 16:05 21:07 22:30 WBC RBC Hgb Hct MCV MCH MCHC RDW Plt Count MPV Neut % (Auto) Lymph % (Auto) [place] % (Auto) Eos % (Auto) Baso % (Auto) Neut # Lymph # [place] # Eos # Baso # Neutrophils % (Manual) Lymphocytes % (Manual) Monocytes % (Manual) Myelocytes % Toxic Granulation Platelet Estimate Large Platelets Hypochromasia (manual) Poikilocytosis (manual Anisocytosis (manual) Macrocytosis (manual) [place] Cells Sodium Potassium Chloride Carbon Dioxide Anion Gap BUN Creatinine Est GFR ( Amer) Est GFR (Non-Af Amer) POC Glucose (mg/dL) 141 H 181 H Random Glucose Calcium Phosphorus Magnesium Total Bilirubin AST ALT Alkaline Phosphatase Total Protein Albumin Globulin Albumin/Globulin Ratio Stool Occult Blood Negative 08/16/16 08/16/16 08/16/16 06:34 06:34 07:56 WBC 8.9 RBC 3.25 L Hgb 10.2 L Hct 30.8 L MCV 95.0 MCH 31.3 H MCHC 33.0 RDW 19.9 H Plt Count 121 L MPV 9.2 Neut % (Auto) 80.0 H Lymph % (Auto) 8.6 L [place] % (Auto) 11.0 H Eos % (Auto) 0.2 Baso % (Auto) 0.2 Neut # 7.1 H Lymph # 0.8 L [place] # 1.0 H Eos # 0.0 Baso # 0.0 Neutrophils % (Manual) 86 H Lymphocytes % (Manual) 6 L Monocytes % (Manual) 7 Myelocytes % 1 H Toxic Granulation Present Platelet Estimate Slightly decreased L Large Platelets Present Hypochromasia (manual) Slight Poikilocytosis (manual Slight Anisocytosis (manual) Slight Macrocytosis (manual) Slight Melia Cells Slight Sodium 137 Potassium 3.3 L Chloride 97 L Carbon Dioxide 27 Anion Gap 16 BUN 31 H Creatinine 1.8 H Est GFR ( Amer) 33 Est GFR (Non-Af Amer) 28 POC Glucose (mg/dL) 184 H Random Glucose 157 H Calcium 8.4 L Phosphorus 2.5 Magnesium 2.1 Total Bilirubin 2.3 H AST 35 ALT 15 Alkaline Phosphatase 139 H Total Protein 7.1 Albumin 3.0 L Globulin 4.1 H Albumin/Globulin Ratio 0.7 L Stool Occult Blood 08/16/16 11:46 WBC RBC Hgb Hct MCV MCH MCHC RDW Plt Count MPV Neut % (Auto) Lymph % (Auto) [place] % (Auto) Eos % (Auto) Baso % (Auto) Neut # Lymph # [place] # Eos # Baso # Neutrophils % (Manual) Lymphocytes % (Manual) Monocytes % (Manual) Myelocytes % Toxic Granulation Platelet Estimate Large Platelets Hypochromasia (manual) Poikilocytosis (manual Anisocytosis (manual) Macrocytosis (manual) [place] Cells Sodium Potassium Chloride Carbon Dioxide Anion Gap BUN Creatinine Est GFR ( Amer) Est GFR (Non-Af Amer) POC Glucose (mg/dL) 191 H Random Glucose Calcium Phosphorus Magnesium Total Bilirubin AST ALT Alkaline Phosphatase Total Protein Albumin Globulin Albumin/Globulin Ratio Stool Occult Blood Assessment & Plan - Assessment and Plan (Free Text) Assessment: Palliative consult Code status Full Code. No advance directive on chart. PPS 20%. ROS unobtainable due to weakness and lethargy. I reviewed medical records, all diagnostic studies, examined and interviewed patient in the bed and had a 60 min long discussion with patient's daughter at the bed side, for goals of care planning. ROS obtained from the daughter. Patient is lethargic, easily aroused, looking chronically ill. Eyes closed. Responds to verbal stimuli, fallow commends. Speaks foreign language and needs assistance with translation. Skin is pale. Patient looks very weak. Chest tube to suction, drainage bloody. Hb 8.9 . patient denies pain to chest tube side. Daughter was giving patient tea by the spoon and patient was swallowing it with ease. As per daughter, patient has difficulties chewing the solid food as her teeth are loose, but swallows liquid easily. At home , patient was functional with assistance; she needed to be remained to take her insulin, and eat. Latelly , patient's nutrition become poor and was taking shakes supplements. Daughter was very concerned about her mother's quality of life. She was very realistic in her expectations given patient's medical hx. She wanted her mother to be comfortable and to have fewer admissions to hospital for thoracentesis. She admits that she could choose Pleural cath vs thoracentesis and have the fluid drained rather at home. daughter spoke to Doctor Sagastume today and understands that patient would have more thoracentesis in the future. I discussed the Code status with the daughter and explained its benefices. Daughter was clear she would want her mother to suffer less and to have peaceful . She wanted to talk to her Spiritual Guru before making final decision. Impression * Chronically ill patient * Chest tube limits ability to reposition in bed * Poor nutrition, patient does not chew well on the solid food * General weakness, needs max assistance with ADLs * Daughter worried about poor quality of life for her mom; would want her home with less hospital visits * Daughter concerned about [facility] placement due to Insurance, preffers [facility] facilities in [place] Suggestion * Max assist with care * Assist with each meal * SS to assist daughter with choice of affordable [facility] in the area * Would arrange for director of home care hospice once discharge home, atient needs a lot of help with ADLs * Will meet with daughter again to complete Code status discussion.
[2016-08-16] MEDS: (Novolin R) Insulin Human Regular 100 units/ml vial SC SCH ×2 (16:46→22:04)
--- NOTE | 2016-08-16 22:39 | CP.PCM.PN ---
Subjective - Date & Time of Evaluation Date of Evaluation: 08/16/16 Time of Evaluation: 22:37 - Subjective Subjective: today patient is more awake and responding. But is still eating very poorly. Emaciated looking. Left side of the heel showing evidence of skin breakdown. Patient is not in any distress. Received hemodialysis yesterday Objective - Vital Signs/Intake and Output Vital Signs (last 24 hours): Temp Pulse Resp BP Pulse Ox 98.4 F 81 20 129/52 L 99 08/16/16 20:00 08/16/16 21:00 08/16/16 21:00 08/16/16 21:00 08/16/16 21:00 Intake and Output: 08/16/16 08/17/16 18:59 06:59 Intake Total 650 150 Output Total 55 10 Balance 595 140 - Medications Medications: Current Medications Acetaminophen (Tylenol 650mg/20.3ml Solution Ud) 650 mg PO Q4 PRN PRN Reason: pain Last Admin: 08/14/16 22:05 Dose: 650 mg Aspirin (Aspirin Chewable) 81 mg PO DAILY [facility] Last Admin: 08/16/16 09:42 Dose: Not Given Calcium Acetate (Phoslo) 667 mg PO TIDCC [facility] Last Admin: 08/16/16 16:46 Dose: 667 mg Diphenhydramine HCl (Benadryl) 25 mg PO Q4H PRN PRN Reason: allergies Epoetin Sly (Procrit) 10,000 unit IV MWF [facility] Last Admin: 08/15/16 12:05 Dose: 10,000 unit Haloperidol Lactate (Haldol) 0.5 mg IVP Q12 PRN PRN Reason: Agitation Stop: 08/17/16 19:43 Last Admin: 08/15/16 19:59 Dose: 0.5 mg Hydrocortisone Sodium Succinate (Solu-Cortef) 50 mg IV DAILY [facility] Last Admin: 08/16/16 09:45 Dose: 50 mg Cefepime HCl (Maxipime Iv 1 Gm Premix) 50 mls @ 100 mls/hr IVPB DAILY [facility] Last Admin: 08/16/16 09:43 Dose: 100 mls/hr Insulin Human Regular (Novolin R) 0 unit SC ACHS [facility] PRN Reason: Protocol Last Admin: 08/16/16 22:04 Dose: Not Given Levothyroxine Sodium (Levothyroxine) 300 mcg IV DAILY [facility] Last Admin: 08/16/16 10:14 Dose: 300 mcg Lidocaine HCl (Lidocaine 2% Viscous) 15 ml PO TID PRN PRN Reason: Pain, Mild (1-3) Last Admin: 08/15/16 20:01 Dose: 15 ml Metoprolol Tartrate (Lopressor) 2.5 mg IVP Q8 [facility] Last Admin: 08/16/16 22:08 Dose: 2.5 mg Pantoprazole Sodium (Protonix Inj) 40 mg IVP DAILY [facility] Last Admin: 08/16/16 09:44 Dose: 40 mg Rosuvastatin Calcium (Crestor) 10 mg PO HS [facility] Last Admin: 08/16/16 22:08 Dose: 10 mg hest good air entry bilaterally, decreased on the right lower lung, chest tube noted, 200 MLS serosanguineous fluid secretion noted - Labs Labs: 08/16/16 06:34 08/16/16 06:34 PT 14.7 SECONDS (9.7-12.2) H 08/12/16 06:00 INR 1.3 08/12/16 06:00 APTT 40 SECONDS (21-34) H 08/12/16 06:00 Assessment and Plan (1) ESRD (end stage renal disease) on dialysis Assessment & Plan: end-stage renal disease on dialysis. Right sided hemothorax. Improving. Bleeding stopped. We'll continue to monitor. Physical therapy. Protection left heel Status: Acute (2) Pleural effusion Status: Acute (3) S/P thoracentesis Status: Acute (4) Hypothermia Status: Acute
[2016-08-16] MEDS ORDERED: Levothyroxine 500 mcg (0.5 mg) Inj IV SCH (22:40)
[2016-08-17 06:23] LABS: BASO % 0.1 % (0.0-2.0); HEMATOCRIT 31.1 % (34.0-47.0); LYMPH # 0.6 K/uL (1.0-4.3); LYMPH % 6.3 % (20.0-40.0); MEAN CELL VOLUME 94.8 fL (81.0-99.0); MEAN CORPUSCULAR HEMOGLOBIN 30.9 pg (27.0-31.0); MEAN CORPUSCULAR HGB CONC 32.6 g/dL (33.0-37.0); MEAN PLATELET VOLUME 9.5 fL (7.2-11.7); MONO % 10.3 % (0.0-10.0); NRBC % 0.4 % (0.0-2.0); PLATELET COUNT 114 K/uL (130-400); RED CELL DISTRIBUTION WIDTH 19.1 % (11.5-14.5)
[2016-08-17 06:39] LABS: POTASSIUM 3.5 mmol/L (3.6-5.2)
[2016-08-17 06:41] LABS: ALB/GLOB RATIO 0.7 (1.0-2.1); BILIRUBIN,TOTAL 2.2 mg/dL (0.2-1.3); TOTAL PROTEIN 6.8 g/dL (6.3-8.3)
[2016-08-17 06:42] LABS: CALCIUM 8.4 mg/dl (8.6-10.4); MAGNESIUM 2.2 mg/dL (1.6-2.3); PHOSPHOROUS 2.5 mg/dL (2.5-4.5)
[2016-08-17 07:57] LABS: THYROID STIMULATING HORMONE 2.13 mIU/L (0.46-4.68)
[2016-08-17] MEDS: (Novolin R) Insulin Human Regular 100 units/ml vial SC SCH ×4 (08:18→21:35)
--- NOTE | 2016-08-17 08:22 | RAD ---
HISTORY: chest tube placement COMPARISON: 08/16/2016 FINDINGS: LUNGS: Lines and tubes in stable position. Persistent moderate to large loculated right pleural effusion. Moderate to severe venous congestion. Right hilar prominence. Patchy increased markings at the left lung base. Right paratracheal prominence may represent prominent vasculature. PLEURA: As above. CARDIOVASCULAR: Cardiomegaly. Status post median sternotomy. Calcification at the aortic knob. Left axillary stent. OSSEOUS STRUCTURES: Degenerative changes in the spine and shoulders. VISUALIZED UPPER ABDOMEN: Normal. OTHER FINDINGS: None. IMPRESSION: Lines and tubes in stable position. Persistent moderate to large loculated right pleural effusion. Moderate to severe venous congestion. Right hilar prominence. Patchy increased markings at the left lung base. Right paratracheal prominence may represent prominent vasculature.
[2016-08-17 08:29] LABS: EOSINOPHIL 1 % (0-4); NEUTROPHIL 84 % (50-75); TOTAL CELLS COUNTED 100
[2016-08-17 08:30] LABS: LARGE PLATELETS PRESENT
[2016-08-17] MEDS ORDERED: Metoprolol Succinate 12.5 mg XL PO SCH (10:00)
--- NOTE | 2016-08-17 10:44 | CP.CCUPN ---
Addendum entered and electronically signed by Heather Meza DO 08/17/16 13:03 : Patient has an unstageable ulcer of left heel. To have medihoney and prevalon boots on AT ALL TIMES. Original Note: <Heather Meza - Last Filed: 08/17/16 10:40> CCU Subjective - Physician Review Subjective (Free Text): Patient was seen and examined at bedside. S/P anterior chest tube insertion POD #5. Chest tube still in place, output of 65ml /24hrs sanguinous. Will continue to be on suction. Patient is currently not on oxygen she is saturating well. Will continue to monitor output and CXRs. Patient is still eating poorly, she was able to eat a little when being fed by the daughter. Wound care was called for left heel breakdown. Patient transfered to telemetry. CCU Objective - Vital Signs / Intake & Output Vital Signs (Last 4 hours): Vital Signs Temp Pulse Resp BP Pulse Ox 08/17/16 10:28 123/50 L 08/17/16 10:26 80 21 08/17/16 10:13 77 15 113/47 L 08/17/16 10:00 78 17 08/17/16 09:58 79 17 109/46 L 08/17/16 09:43 79 15 110/49 L 08/17/16 09:19 80 13 119/48 L 08/17/16 09:00 82 16 08/17/16 08:19 79 14 115/65 08/17/16 08:00 97.6 F 79 13 08/17/16 07:19 86 16 125/56 L 100 08/17/16 07:00 78 15 125/56 L 99 Intake and Output (Last 8hrs): Intake & Output 08/16/16 08/17/16 08/17/16 22:59 06:59 14:59 Intake Total 520 0 Output Total 65 0 Balance 455 0 Weight 105 lb 1 oz Intake: Intake, IV Amount 0 Right Forearm 0 Oral 520 0 Output: Chest Tube Drainage 65 0 Right Anterior Chest 65 0 Emesis 0 Oral Regurgitation 0 Other: # Voids Urine, Voided 0 0 0 # Bowel Movements 0 0 - Physical Exam Head: Positive for: Atraumatic, Normocephalic Extroacular Muscles: Positive for: EOMI Conjunctiva: Positive for: Normal Mouth: Positive for: Dry Neck: Positive for: Normal Range of Motion Respiratory/Chest: Positive for: Decreased Breath Sounds Cardiovascular: Positive for: Bradycardic, Other (Anterior chest tube ) Abdomen: Positive for: Normal Bowel Sounds, Other (right sided anterior chest tube ). Negative for: Tenderness, Distention Upper Extremity: Positive for: Normal Inspection Lower Extremity: Positive for: Normal Inspection, Edema, NORMAL PULSES. Negative for: CALF TENDERNESS Neurological: Positive for: GCS=15, CN II-XII Intact Skin: Positive for: Warm, Dry Psychiatric: Positive for: Alert - Medications Active Medications: Active Medications Generic Name Dose Route Start Last Admin Trade Name Freq PRN Reason Stop Dose Admin Acetaminophen 650 mg 08/14/16 21:40 08/14/16 22:05 Tylenol 650mg/20.3ml Solution Ud PO 650 mg Q4 PRN Administration pain Aspirin 81 mg 08/09/16 10:00 08/17/16 09:20 Aspirin Chewable PO 81 mg DAILY REKHA Administration Calcium Acetate 667 mg 08/08/16 17:00 08/17/16 08:07 Phoslo PO Not Given TIDCC REKHA Epoetin Sly 10,000 unit 08/12/16 09:00 08/15/16 12:05 Procrit IV 10,000 unit MWF REKHA Administration Haloperidol Lactate 0.5 mg 08/15/16 19:42 08/15/16 19:59 Haldol IVP 08/17/16 19:43 0.5 mg Q12 PRN Administration Agitation Hydrocortisone Sodium Succinate 25 mg 08/17/16 10:00 08/17/16 09:18 Solu-Cortef IV 08/18/16 10:01 25 mg DAILY REKHA Administration Cefepime HCl 50 mls @ 100 mls/hr 08/10/16 10:00 08/16/16 09:43 Maxipime Iv 1 Gm Premix IVPB 100 mls/hr DAILY REKHA Administration Insulin Human Regular 0 unit 08/16/16 16:30 08/17/16 08:18 Novolin R SC 3 unit ACHS REKHA Administration Protocol Levothyroxine Sodium 200 mcg 08/16/16 22:40 Levothyroxine IV DAILY REKHA Lidocaine HCl 15 ml 08/15/16 08:59 08/15/16 20:01 Lidocaine 2% Viscous PO 15 ml TID PRN Administration Pain, Mild (1-3) Metoprolol Succinate 25 mg 08/17/16 10:00 Toprol Xl PO DAILY REKHA Pantoprazole Sodium 40 mg 08/13/16 10:00 08/17/16 09:21 Protonix Inj IVP 40 mg DAILY REKHA Administration Rosuvastatin Calcium 10 mg 08/09/16 22:00 08/16/16 22:08 Crestor PO 10 mg HS REKHA Administration - Patient Studies Lab Studies: Microbiology Studies 08/15/16 13:28 Mycobacterial Culture - Preliminary Other: Please Indicate 08/12/16 14:00 Gram Stain - Final Pleural Fluid Body Fluid Culture - Final No growth. Fungal Culture - Preliminary Lab Studies 08/17/16 08/17/16 08/17/16 Range/Units 08:01 06:18 06:18 WBC 10.0 (4.8-10.8) K/uL RBC 3.28 L (3.80-5.20) Mil/uL Hgb 10.1 L (11.0-16.0) g/dL Hct 31.1 L (34.0-47.0) % MCV 94.8 (81.0-99.0) fL MCH 30.9 (27.0-31.0) pg MCHC 32.6 L (33.0-37.0) g/dL RDW 19.1 H (11.5-14.5) % Plt Count 114 L (130-400) K/uL MPV 9.5 (7.2-11.7) fL Neut % (Auto) 83.3 H (50.0-75.0) % Lymph % (Auto) 6.3 L (20.0-40.0) % Drew % (Auto) 10.3 H (0.0-10.0) % Eos % (Auto) 0.0 (0.0-4.0) % Baso % (Auto) 0.1 (0.0-2.0) % Neut # 8.3 H (1.8-7.0) K/uL Lymph # 0.6 L (1.0-4.3) K/uL Drew # 1.0 H (0.0-0.8) K/uL Eos # 0.0 (0.0-0.7) K/uL Baso # 0.0 (0.0-0.2) K/uL Neutrophils % (Manual) 84 H (50-75) % Band Neutrophils % 1 (0-2) % Lymphocytes % (Manual) 5 L (20-40) % Monocytes % (Manual) 9 (0-10) % Eosinophils % (Manual) 1 (0-4) % Platelet Estimate Slightly decreased L (NORMAL) Large Platelets Present Polychromasia Slight Hypochromasia (manual) Slight Poikilocytosis (manual Slight Anisocytosis (manual) Slight Microcytosis (manual) Slight Macrocytosis (manual) Slight Target Cells Slight Sodium 134 (132-148) mmol/L Potassium 3.5 L (3.6-5.2) mmol/L Chloride 97 L (98-107) mmol/L Carbon Dioxide 25 (22-30) mmol/L Anion Gap 16 (10-20) BUN 49 H (7-17) mg/dL Creatinine 2.7 H (0.7-1.2) MG/DL Est GFR ( Amer) 21 Est GFR (Non-Af Amer) 17 POC Glucose (mg/dL) 255 H (65-110) mg/dL Random Glucose 212 H (65-105) mg/dL Calcium 8.4 L (8.6-10.4) mg/dl Phosphorus 2.5 (2.5-4.5) mg/dL Magnesium 2.2 (1.6-2.3) mg/dL Total Bilirubin 2.2 H (0.2-1.3) mg/dL AST 21 (14-36) U/L ALT 13 (9-52) U/L Alkaline Phosphatase 150 H (38-126) U/L Total Protein 6.8 (6.3-8.3) g/dL Albumin 2.8 L (3.5-5.0) g/dL Globulin 4.0 H (2.2-3.9) gm/dL Albumin/Globulin Ratio 0.7 L (1.0-2.1) TSH 3rd Generation 2.13 (0.46-4.68) mIU/L Pleural Total Protein g/dL Pleural LDH U/L Pleural Glucose mg/dL Pleural Amylase 08/16/16 08/16/16 08/16/16 Range/Units 21:26 16:17 11:46 WBC (4.8-10.8) K/uL RBC (3.80-5.20) Mil/uL Hgb (11.0-16.0) g/dL Hct (34.0-47.0) % MCV (81.0-99.0) fL MCH (27.0-31.0) pg MCHC (33.0-37.0) g/dL RDW (11.5-14.5) % Plt Count (130-400) K/uL MPV (7.2-11.7) fL Neut % (Auto) (50.0-75.0) % Lymph % (Auto) (20.0-40.0) % Drew % (Auto) (0.0-10.0) % Eos % (Auto) (0.0-4.0) % Baso % (Auto) (0.0-2.0) % Neut # (1.8-7.0) K/uL Lymph # (1.0-4.3) K/uL Drew # (0.0-0.8) K/uL Eos # (0.0-0.7) K/uL Baso # (0.0-0.2) K/uL Neutrophils % (Manual) (50-75) % Band Neutrophils % (0-2) % Lymphocytes % (Manual) (20-40) % Monocytes % (Manual) (0-10) % Eosinophils % (Manual) (0-4) % Platelet Estimate (NORMAL) Large Platelets Polychromasia Hypochromasia (manual) Poikilocytosis (manual Anisocytosis (manual) Microcytosis (manual) Macrocytosis (manual) Target Cells Sodium (132-148) mmol/L Potassium (3.6-5.2) mmol/L Chloride (98-107) mmol/L Carbon Dioxide (22-30) mmol/L Anion Gap (10-20) BUN (7-17) mg/dL Creatinine (0.7-1.2) MG/DL Est GFR ( Amer) Est GFR (Non-Af Amer) POC Glucose (mg/dL) 275 H 291 H 191 H (65-110) mg/dL Random Glucose (65-105) mg/dL Calcium (8.6-10.4) mg/dl Phosphorus (2.5-4.5) mg/dL Magnesium (1.6-2.3) mg/dL Total Bilirubin (0.2-1.3) mg/dL AST (14-36) U/L ALT (9-52) U/L Alkaline Phosphatase (38-126) U/L Total Protein (6.3-8.3) g/dL Albumin (3.5-5.0) g/dL Globulin (2.2-3.9) gm/dL Albumin/Globulin Ratio (1.0-2.1) TSH 3rd Generation (0.46-4.68) mIU/L Pleural Total Protein g/dL Pleural LDH U/L Pleural Glucose mg/dL Pleural Amylase 08/12/16 08/12/16 08/12/16 Range/Units 15:22 15:22 15:22 WBC (4.8-10.8) K/uL RBC (3.80-5.20) Mil/uL Hgb (11.0-16.0) g/dL Hct (34.0-47.0) % MCV (81.0-99.0) fL MCH (27.0-31.0) pg MCHC (33.0-37.0) g/dL RDW (11.5-14.5) % Plt Count (130-400) K/uL MPV (7.2-11.7) fL Neut % (Auto) (50.0-75.0) % Lymph % (Auto) (20.0-40.0) % Drew % (Auto) (0.0-10.0) % Eos % (Auto) (0.0-4.0) % Baso % (Auto) (0.0-2.0) % Neut # (1.8-7.0) K/uL Lymph # (1.0-4.3) K/uL Drew # (0.0-0.8) K/uL Eos # (0.0-0.7) K/uL Baso # (0.0-0.2) K/uL Neutrophils % (Manual) (50-75) % Band Neutrophils % (0-2) % Lymphocytes % (Manual) (20-40) % Monocytes % (Manual) (0-10) % Eosinophils % (Manual) (0-4) % Platelet Estimate (NORMAL) Large Platelets Polychromasia Hypochromasia (manual) Poikilocytosis (manual Anisocytosis (manual) Microcytosis (manual) Macrocytosis (manual) Target Cells Sodium (132-148) mmol/L Potassium (3.6-5.2) mmol/L Chloride (98-107) mmol/L Carbon Dioxide (22-30) mmol/L Anion Gap (10-20) BUN (7-17) mg/dL Creatinine (0.7-1.2) MG/DL Est GFR ( Amer) Est GFR (Non-Af Amer) POC Glucose (mg/dL) (65-110) mg/dL Random Glucose (65-105) mg/dL Calcium (8.6-10.4) mg/dl Phosphorus (2.5-4.5) mg/dL Magnesium (1.6-2.3) mg/dL Total Bilirubin (0.2-1.3) mg/dL AST (14-36) U/L ALT (9-52) U/L Alkaline Phosphatase (38-126) U/L Total Protein (6.3-8.3) g/dL Albumin (3.5-5.0) g/dL Globulin (2.2-3.9) gm/dL Albumin/Globulin Ratio (1.0-2.1) TSH 3rd Generation (0.46-4.68) mIU/L Pleural Total Protein 10.9 g/dL Pleural LDH 5867 U/L Pleural Glucose mg/dL Pleural Amylase TNP 08/12/16 Range/Units 15:22 WBC (4.8-10.8) K/uL RBC (3.80-5.20) Mil/uL Hgb (11.0-16.0) g/dL Hct (34.0-47.0) % MCV (81.0-99.0) fL MCH (27.0-31.0) pg MCHC (33.0-37.0) g/dL RDW (11.5-14.5) % Plt Count (130-400) K/uL MPV (7.2-11.7) fL Neut % (Auto) (50.0-75.0) % Lymph % (Auto) (20.0-40.0) % Drew % (Auto) (0.0-10.0) % Eos % (Auto) (0.0-4.0) % Baso % (Auto) (0.0-2.0) % Neut # (1.8-7.0) K/uL Lymph # (1.0-4.3) K/uL Drew # (0.0-0.8) K/uL Eos # (0.0-0.7) K/uL Baso # (0.0-0.2) K/uL Neutrophils % (Manual) (50-75) % Band Neutrophils % (0-2) % Lymphocytes % (Manual) (20-40) % Monocytes % (Manual) (0-10) % Eosinophils % (Manual) (0-4) % Platelet Estimate (NORMAL) Large Platelets Polychromasia Hypochromasia (manual) Poikilocytosis (manual Anisocytosis (manual) Microcytosis (manual) Macrocytosis (manual) Target Cells Sodium (132-148) mmol/L Potassium (3.6-5.2) mmol/L Chloride (98-107) mmol/L Carbon Dioxide (22-30) mmol/L Anion Gap (10-20) BUN (7-17) mg/dL Creatinine (0.7-1.2) MG/DL Est GFR ( Amer) Est GFR (Non-Af Amer) POC Glucose (mg/dL) (65-110) mg/dL Random Glucose (65-105) mg/dL Calcium (8.6-10.4) mg/dl Phosphorus (2.5-4.5) mg/dL Magnesium (1.6-2.3) mg/dL Total Bilirubin (0.2-1.3) mg/dL AST (14-36) U/L ALT (9-52) U/L Alkaline Phosphatase (38-126) U/L Total Protein (6.3-8.3) g/dL Albumin (3.5-5.0) g/dL Globulin (2.2-3.9) gm/dL Albumin/Globulin Ratio (1.0-2.1) TSH 3rd Generation (0.46-4.68) mIU/L Pleural Total Protein g/dL Pleural LDH U/L Pleural Glucose 83 mg/dL Pleural Amylase Laboratory Results - last 24 hr 08/12/16 08/12/16 08/12/16 15:22 15:22 15:22 WBC RBC Hgb Hct MCV MCH MCHC RDW Plt Count MPV Neut % (Auto) Lymph % (Auto) Drew % (Auto) Eos % (Auto) Baso % (Auto) Neut # Lymph # Drew # Eos # Baso # Neutrophils % (Manual) Band Neutrophils % Lymphocytes % (Manual) Monocytes % (Manual) Eosinophils % (Manual) Platelet Estimate Large Platelets Polychromasia Hypochromasia (manual) Poikilocytosis (manual Anisocytosis (manual) Microcytosis (manual) Macrocytosis (manual) Target Cells Sodium Potassium Chloride Carbon Dioxide Anion Gap BUN Creatinine Est GFR ( Amer) Est GFR (Non-Af Amer) POC Glucose (mg/dL) Random Glucose Calcium Phosphorus Magnesium Total Bilirubin AST ALT Alkaline Phosphatase Total Protein Albumin Globulin Albumin/Globulin Ratio TSH 3rd Generation Pleural Total Protein 10.9 Pleural LDH Pleural Glucose 83 Pleural Amylase TNP 08/12/16 08/16/16 08/16/16 15:22 11:46 16:17 WBC RBC Hgb Hct MCV MCH MCHC RDW Plt Count MPV Neut % (Auto) Lymph % (Auto) Drew % (Auto) Eos % (Auto) Baso % (Auto) Neut # Lymph # Drew # Eos # Baso # Neutrophils % (Manual) Band Neutrophils % Lymphocytes % (Manual) Monocytes % (Manual) Eosinophils % (Manual) Platelet Estimate Large Platelets Polychromasia Hypochromasia (manual) Poikilocytosis (manual Anisocytosis (manual) Microcytosis (manual) Macrocytosis (manual) Target Cells Sodium Potassium Chloride Carbon Dioxide Anion Gap BUN Creatinine Est GFR ( Amer) Est GFR (Non-Af Amer) POC Glucose (mg/dL) 191 H 291 H Random Glucose Calcium Phosphorus Magnesium Total Bilirubin AST ALT Alkaline Phosphatase Total Protein Albumin Globulin Albumin/Globulin Ratio TSH 3rd Generation Pleural Total Protein Pleural LDH 5867 Pleural Glucose Pleural Amylase 08/16/16 08/17/16 08/17/16 21:26 06:18 06:18 WBC 10.0 RBC 3.28 L Hgb 10.1 L Hct 31.1 L MCV 94.8 MCH 30.9 MCHC 32.6 L RDW 19.1 H Plt Count 114 L MPV 9.5 Neut % (Auto) 83.3 H Lymph % (Auto) 6.3 L Drew % (Auto) 10.3 H Eos % (Auto) 0.0 Baso % (Auto) 0.1 Neut # 8.3 H Lymph # 0.6 L Drew # 1.0 H Eos # 0.0 Baso # 0.0 Neutrophils % (Manual) 84 H Band Neutrophils % 1 Lymphocytes % (Manual) 5 L Monocytes % (Manual) 9 Eosinophils % (Manual) 1 Platelet Estimate Slightly decreased L Large Platelets Present Polychromasia Slight Hypochromasia (manual) Slight Poikilocytosis (manual Slight Anisocytosis (manual) Slight Microcytosis (manual) Slight Macrocytosis (manual) Slight Target Cells Slight Sodium 134 Potassium 3.5 L Chloride 97 L Carbon Dioxide 25 Anion Gap 16 BUN 49 H Creatinine 2.7 H Est GFR ( Amer) 21 Est GFR (Non-Af Amer) 17 POC Glucose (mg/dL) 275 H Random Glucose 212 H Calcium 8.4 L Phosphorus 2.5 Magnesium 2.2 Total Bilirubin 2.2 H AST 21 ALT 13 Alkaline Phosphatase 150 H Total Protein 6.8 Albumin 2.8 L Globulin 4.0 H Albumin/Globulin Ratio 0.7 L TSH 3rd Generation 2.13 Pleural Total Protein Pleural LDH Pleural Glucose Pleural Amylase 08/17/16 08:01 WBC RBC Hgb Hct MCV MCH MCHC RDW Plt Count MPV Neut % (Auto) Lymph % (Auto) Drew % (Auto) Eos % (Auto) Baso % (Auto) Neut # Lymph # Drew # Eos # Baso # Neutrophils % (Manual) Band Neutrophils % Lymphocytes % (Manual) Monocytes % (Manual) Eosinophils % (Manual) Platelet Estimate Large Platelets Polychromasia Hypochromasia (manual) Poikilocytosis (manual Anisocytosis (manual) Microcytosis (manual) Macrocytosis (manual) Target Cells Sodium Potassium Chloride Carbon Dioxide Anion Gap BUN Creatinine Est GFR ( Amer) Est GFR (Non-Af Amer) POC Glucose (mg/dL) 255 H Random Glucose Calcium Phosphorus Magnesium Total Bilirubin AST ALT Alkaline Phosphatase Total Protein Albumin Globulin Albumin/Globulin Ratio TSH 3rd Generation Pleural Total Protein Pleural LDH Pleural Glucose Pleural Amylase Fingerstick Blood Sugar Results: 275 Critical Care Progress Note - Nutrition Nutrition: Nutrition Category Date Time Status Regular Diet [DIET] Diets 08/14/16 Dinner Active Assessment/Plan - Assessment and Plan (Free Text) Assessment: 75 year old female with ESRD currently on dialysis MWF presented with CHF, in need of dialysis with recurrent right sided pleural effusion. Plan: Neuro: Upon admission patient was altered. Today patient is still altered but more alert. CV: -CHF -Hx CAD: ASA, Crestor -HTN - Started on Toprol XL 25mg PO daily Pulm: -Right sided recurrent pleural effusions - Dr. Walker consulted for thoracentesis - help appreciated - 1800mL was removed. -Ordered CT Chest- revealed right sided hydropneumothorax. Patient is comfortable, in no respiratory distress, 98% on 2L NC. -CT was consulted - Dr. Soto - S/P anterior chest tube insertion POD #5 currently on suction, output of 65cc/ 24hour, tube will be DC when patient is DC. Renal: -ESRD on HD MWF -Continued Phoslo -Dr. Mcfarland - help appreciated Heme: -Patient was transfused total of 2 PRBCs -Current 10.1 -Monitor Endo: - DM: Upon admission patient was hypoglycemic - Hypothyroidism: Synthroid 200 mcg IV ACB, continue to monitor TSH currently 2.13, Hydrocortiosone 25mg IV daily x2 days ID: -Afebrile, no white count -Initial UA showed UTI- Cefepime Q12H -No growth on urine or blood cultures -Left foot ulcer - f/u wound care Prophylaxis: -GI: Protonix 40mg IVP daily -DVT: SCDs, VTE contraindicated due to thrombocytopenia -Heart Healthy Diet -Case management referral for [facility], homecare, visiting nurse. Patient transferred to TELEMETRY Derrick Costa DO, PGY-1 <Jonatan Scales - Last Filed: 08/17/16 17:45> CCU Objective - Vital Signs / Intake & Output Vital Signs (Last 4 hours): Vital Signs Temp Pulse Resp BP 08/17/16 16:26 84 16 124/54 L 08/17/16 16:00 98 F 88 17 08/17/16 15:00 80 16 08/17/16 14:56 81 14 128/52 L 08/17/16 14:00 81 13 Intake and Output (Last 8hrs): Intake & Output 08/17/16 08/17/16 08/17/16 06:59 14:59 22:59 Intake Total 0 500 50 Output Total 0 Balance 0 500 50 Weight 105 lb 1 oz Intake: Intake, IV Amount 50 Right Forearm 50 Oral 0 500 Output: Chest Tube Drainage 0 Right Anterior Chest 0 Other: # Voids Urine, Voided 0 0 0 # Bowel Movements 0 - Medications Active Medications: Active Medications Generic Name Dose Route Start Last Admin Trade Name Freq PRN Reason Stop Dose Admin Acetaminophen 650 mg 08/14/16 21:40 08/14/16 22:05 Tylenol 650mg/20.3ml Solution Ud PO 650 mg Q4 PRN Administration pain Aspirin 81 mg 08/09/16 10:00 08/17/16 09:20 Aspirin Chewable PO 81 mg DAILY REKHA Administration Calcium Acetate 667 mg 08/08/16 17:00 08/17/16 17:35 Phoslo PO Not Given TIDCC REKHA Epoetin Sly 10,000 unit 08/12/16 09:00 08/17/16 12:10 Procrit IV 10,000 unit MWF REKHA Administration Haloperidol Lactate 0.5 mg 08/15/16 19:42 08/15/16 19:59 Haldol IVP 08/17/16 19:43 0.5 mg Q12 PRN Administration Agitation Hydrocortisone Sodium Succinate 25 mg 08/17/16 10:00 08/17/16 09:18 Solu-Cortef IV 08/18/16 10:01 25 mg DAILY REKHA Administration Cefepime HCl 50 mls @ 100 mls/hr 08/10/16 10:00 08/17/16 14:39 Maxipime Iv 1 Gm Premix IVPB 100 mls/hr DAILY REKHA Administration Insulin Human Regular 0 unit 08/16/16 16:30 08/17/16 11:30 Novolin R SC Not Given ACHS [facility] Protocol Levothyroxine Sodium 200 mcg 08/18/16 10:00 Levothyroxine IVP DAILY [facility] Lidocaine HCl 15 ml 08/15/16 08:59 08/15/16 20:01 Lidocaine 2% Viscous PO 15 ml TID PRN Administration Pain, Mild (1-3) Metoprolol Succinate 25 mg 08/17/16 10:00 08/17/16 14:42 Toprol Xl PO Not Given DAILY REKHA Pantoprazole Sodium 40 mg 08/13/16 10:00 08/17/16 09:21 Protonix Inj IVP 40 mg DAILY REKHA Administration Rosuvastatin Calcium 10 mg 08/09/16 22:00 08/16/16 22:08 Crestor PO 10 mg HS REKHA Administration - Patient Studies Lab Studies: Microbiology Studies 08/15/16 13:28 Mycobacterial Culture - Preliminary Other: Please Indicate Lab Studies 08/17/16 08/17/16 08/17/16 Range/Units 17:03 11:34 08:01 WBC (4.8-10.8) K/uL RBC (3.80-5.20) Mil/uL Hgb (11.0-16.0) g/dL Hct (34.0-47.0) % MCV (81.0-99.0) fL MCH (27.0-31.0) pg MCHC (33.0-37.0) g/dL RDW (11.5-14.5) % Plt Count (130-400) K/uL MPV (7.2-11.7) fL Neut % (Auto) (50.0-75.0) % Lymph % (Auto) (20.0-40.0) % Drew % (Auto) (0.0-10.0) % Eos % (Auto) (0.0-4.0) % Baso % (Auto) (0.0-2.0) % Neut # (1.8-7.0) K/uL Lymph # (1.0-4.3) K/uL Drew # (0.0-0.8) K/uL Eos # (0.0-0.7) K/uL Baso # (0.0-0.2) K/uL Neutrophils % (Manual) (50-75) % Band Neutrophils % (0-2) % Lymphocytes % (Manual) (20-40) % Monocytes % (Manual) (0-10) % Eosinophils % (Manual) (0-4) % Platelet Estimate (NORMAL) Large Platelets Polychromasia Hypochromasia (manual) Poikilocytosis (manual Anisocytosis (manual) Microcytosis (manual) Macrocytosis (manual) Target Cells Sodium (132-148) mmol/L Potassium (3.6-5.2) mmol/L Chloride (98-107) mmol/L Carbon Dioxide (22-30) mmol/L Anion Gap (10-20) BUN (7-17) mg/dL Creatinine (0.7-1.2) MG/DL Est GFR ( Amer) Est GFR (Non-Af Amer) POC Glucose (mg/dL) 280 H 154 H 255 H (65-110) mg/dL Random Glucose (65-105) mg/dL Calcium (8.6-10.4) mg/dl Phosphorus (2.5-4.5) mg/dL Magnesium (1.6-2.3) mg/dL Total Bilirubin (0.2-1.3) mg/dL AST (14-36) U/L ALT (9-52) U/L Alkaline Phosphatase (38-126) U/L Total Protein (6.3-8.3) g/dL Albumin (3.5-5.0) g/dL Globulin (2.2-3.9) gm/dL Albumin/Globulin Ratio (1.0-2.1) TSH 3rd Generation (0.46-4.68) mIU/L Pleural Total Protein g/dL Pleural LDH U/L Pleural Glucose mg/dL Pleural Amylase 08/17/16 08/17/16 08/16/16 Range/Units 06:18 06:18 21:26 WBC 10.0 (4.8-10.8) K/uL RBC 3.28 L (3.80-5.20) Mil/uL Hgb 10.1 L (11.0-16.0) g/dL Hct 31.1 L (34.0-47.0) % MCV 94.8 (81.0-99.0) fL MCH 30.9 (27.0-31.0) pg MCHC 32.6 L (33.0-37.0) g/dL RDW 19.1 H (11.5-14.5) % Plt Count 114 L (130-400) K/uL MPV 9.5 (7.2-11.7) fL Neut % (Auto) 83.3 H (50.0-75.0) % Lymph % (Auto) 6.3 L (20.0-40.0) % Drew % (Auto) 10.3 H (0.0-10.0) % Eos % (Auto) 0.0 (0.0-4.0) % Baso % (Auto) 0.1 (0.0-2.0) % Neut # 8.3 H (1.8-7.0) K/uL Lymph # 0.6 L (1.0-4.3) K/uL Drew # 1.0 H (0.0-0.8) K/uL Eos # 0.0 (0.0-0.7) K/uL Baso # 0.0 (0.0-0.2) K/uL Neutrophils % (Manual) 84 H (50-75) % Band Neutrophils % 1 (0-2) % Lymphocytes % (Manual) 5 L (20-40) % Monocytes % (Manual) 9 (0-10) % Eosinophils % (Manual) 1 (0-4) % Platelet Estimate Slightly decreased L (NORMAL) Large Platelets Present Polychromasia Slight Hypochromasia (manual) Slight Poikilocytosis (manual Slight Anisocytosis (manual) Slight Microcytosis (manual) Slight Macrocytosis (manual) Slight Target Cells Slight Sodium 134 (132-148) mmol/L Potassium 3.5 L (3.6-5.2) mmol/L Chloride 97 L (98-107) mmol/L Carbon Dioxide 25 (22-30) mmol/L Anion Gap 16 (10-20) BUN 49 H (7-17) mg/dL Creatinine 2.7 H (0.7-1.2) MG/DL Est GFR ( Amer) 21 Est GFR (Non-Af Amer) 17 POC Glucose (mg/dL) 275 H (65-110) mg/dL Random Glucose 212 H (65-105) mg/dL Calcium 8.4 L (8.6-10.4) mg/dl Phosphorus 2.5 (2.5-4.5) mg/dL Magnesium 2.2 (1.6-2.3) mg/dL Total Bilirubin 2.2 H (0.2-1.3) mg/dL AST 21 (14-36) U/L ALT 13 (9-52) U/L Alkaline Phosphatase 150 H (38-126) U/L Total Protein 6.8 (6.3-8.3) g/dL Albumin 2.8 L (3.5-5.0) g/dL Globulin 4.0 H (2.2-3.9) gm/dL Albumin/Globulin Ratio 0.7 L (1.0-2.1) TSH 3rd Generation 2.13 (0.46-4.68) mIU/L Pleural Total Protein g/dL Pleural LDH U/L Pleural Glucose mg/dL Pleural Amylase 08/12/16 08/12/16 08/12/16 Range/Units 15:22 15:22 15:22 WBC (4.8-10.8) K/uL RBC (3.80-5.20) Mil/uL Hgb (11.0-16.0) g/dL Hct (34.0-47.0) % MCV (81.0-99.0) fL MCH (27.0-31.0) pg MCHC (33.0-37.0) g/dL RDW (11.5-14.5) % Plt Count (130-400) K/uL MPV (7.2-11.7) fL Neut % (Auto) (50.0-75.0) % Lymph % (Auto) (20.0-40.0) % Drew % (Auto) (0.0-10.0) % Eos % (Auto) (0.0-4.0) % Baso % (Auto) (0.0-2.0) % Neut # (1.8-7.0) K/uL Lymph # (1.0-4.3) K/uL Drew # (0.0-0.8) K/uL Eos # (0.0-0.7) K/uL Baso # (0.0-0.2) K/uL Neutrophils % (Manual) (50-75) % Band Neutrophils % (0-2) % Lymphocytes % (Manual) (20-40) % Monocytes % (Manual) (0-10) % Eosinophils % (Manual) (0-4) % Platelet Estimate (NORMAL) Large Platelets Polychromasia Hypochromasia (manual) Poikilocytosis (manual Anisocytosis (manual) Microcytosis (manual) Macrocytosis (manual) Target Cells Sodium (132-148) mmol/L Potassium (3.6-5.2) mmol/L Chloride (98-107) mmol/L Carbon Dioxide (22-30) mmol/L Anion Gap (10-20) BUN (7-17) mg/dL Creatinine (0.7-1.2) MG/DL Est GFR ( Amer) Est GFR (Non-Af Amer) POC Glucose (mg/dL) (65-110) mg/dL Random Glucose (65-105) mg/dL Calcium (8.6-10.4) mg/dl Phosphorus (2.5-4.5) mg/dL Magnesium (1.6-2.3) mg/dL Total Bilirubin (0.2-1.3) mg/dL AST (14-36) U/L ALT (9-52) U/L Alkaline Phosphatase (38-126) U/L Total Protein (6.3-8.3) g/dL Albumin (3.5-5.0) g/dL Globulin (2.2-3.9) gm/dL Albumin/Globulin Ratio (1.0-2.1) TSH 3rd Generation (0.46-4.68) mIU/L Pleural Total Protein 10.9 g/dL Pleural LDH 5867 U/L Pleural Glucose mg/dL Pleural Amylase TNP 08/12/16 Range/Units 15:22 WBC (4.8-10.8) K/uL RBC (3.80-5.20) Mil/uL Hgb (11.0-16.0) g/dL Hct (34.0-47.0) % MCV (81.0-99.0) fL MCH (27.0-31.0) pg MCHC (33.0-37.0) g/dL RDW (11.5-14.5) % Plt Count (130-400) K/uL MPV (7.2-11.7) fL Neut % (Auto) (50.0-75.0) % Lymph % (Auto) (20.0-40.0) % Drew % (Auto) (0.0-10.0) % Eos % (Auto) (0.0-4.0) % Baso % (Auto) (0.0-2.0) % Neut # (1.8-7.0) K/uL Lymph # (1.0-4.3) K/uL Drew # (0.0-0.8) K/uL Eos # (0.0-0.7) K/uL Baso # (0.0-0.2) K/uL Neutrophils % (Manual) (50-75) % Band Neutrophils % (0-2) % Lymphocytes % (Manual) (20-40) % Monocytes % (Manual) (0-10) % Eosinophils % (Manual) (0-4) % Platelet Estimate (NORMAL) Large Platelets Polychromasia Hypochromasia (manual) Poikilocytosis (manual Anisocytosis (manual) Microcytosis (manual) Macrocytosis (manual) Target Cells Sodium (132-148) mmol/L Potassium (3.6-5.2) mmol/L Chloride (98-107) mmol/L Carbon Dioxide (22-30) mmol/L Anion Gap (10-20) BUN (7-17) mg/dL Creatinine (0.7-1.2) MG/DL Est GFR ( Amer) Est GFR (Non-Af Amer) POC Glucose (mg/dL) (65-110) mg/dL Random Glucose (65-105) mg/dL Calcium (8.6-10.4) mg/dl Phosphorus (2.5-4.5) mg/dL Magnesium (1.6-2.3) mg/dL Total Bilirubin (0.2-1.3) mg/dL AST (14-36) U/L ALT (9-52) U/L Alkaline Phosphatase (38-126) U/L Total Protein (6.3-8.3) g/dL Albumin (3.5-5.0) g/dL Globulin (2.2-3.9) gm/dL Albumin/Globulin Ratio (1.0-2.1) TSH 3rd Generation (0.46-4.68) mIU/L Pleural Total Protein g/dL Pleural LDH U/L Pleural Glucose 83 mg/dL Pleural Amylase Laboratory Results - last 24 hr 08/12/16 08/12/16 08/12/16 15:22 15:22 15:22 WBC RBC Hgb Hct MCV MCH MCHC RDW Plt Count MPV Neut % (Auto) Lymph % (Auto) Drew % (Auto) Eos % (Auto) Baso % (Auto) Neut # Lymph # Drew # Eos # Baso # Neutrophils % (Manual) Band Neutrophils % Lymphocytes % (Manual) Monocytes % (Manual) Eosinophils % (Manual) Platelet Estimate Large Platelets Polychromasia Hypochromasia (manual) Poikilocytosis (manual Anisocytosis (manual) Microcytosis (manual) Macrocytosis (manual) Target Cells Sodium Potassium Chloride Carbon Dioxide Anion Gap BUN Creatinine Est GFR ( Amer) Est GFR (Non-Af Amer) POC Glucose (mg/dL) Random Glucose Calcium Phosphorus Magnesium Total Bilirubin AST ALT Alkaline Phosphatase Total Protein Albumin Globulin Albumin/Globulin Ratio TSH 3rd Generation Pleural Total Protein 10.9 Pleural LDH Pleural Glucose 83 Pleural Amylase TNP 08/12/16 08/16/16 08/17/16 15:22 21:26 06:18 WBC 10.0 RBC 3.28 L Hgb 10.1 L Hct 31.1 L MCV 94.8 MCH 30.9 MCHC 32.6 L RDW 19.1 H Plt Count 114 L MPV 9.5 Neut % (Auto) 83.3 H Lymph % (Auto) 6.3 L Drew % (Auto) 10.3 H Eos % (Auto) 0.0 Baso % (Auto) 0.1 Neut # 8.3 H Lymph # 0.6 L Drew # 1.0 H Eos # 0.0 Baso # 0.0 Neutrophils % (Manual) 84 H Band Neutrophils % 1 Lymphocytes % (Manual) 5 L Monocytes % (Manual) 9 Eosinophils % (Manual) 1 Platelet Estimate Slightly decreased L Large Platelets Present Polychromasia Slight Hypochromasia (manual) Slight Poikilocytosis (manual Slight Anisocytosis (manual) Slight Microcytosis (manual) Slight Macrocytosis (manual) Slight Target Cells Slight Sodium Potassium Chloride Carbon Dioxide Anion Gap BUN Creatinine Est GFR ( Amer) Est GFR (Non-Af Amer) POC Glucose (mg/dL) 275 H Random Glucose Calcium Phosphorus Magnesium Total Bilirubin AST ALT Alkaline Phosphatase Total Protein Albumin Globulin Albumin/Globulin Ratio TSH 3rd Generation Pleural Total Protein Pleural LDH 5867 Pleural Glucose Pleural Amylase 08/17/16 08/17/16 08/17/16 06:18 08:01 11:34 WBC RBC Hgb Hct MCV MCH MCHC RDW Plt Count MPV Neut % (Auto) Lymph % (Auto) Drew % (Auto) Eos % (Auto) Baso % (Auto) Neut # Lymph # Drew # Eos # Baso # Neutrophils % (Manual) Band Neutrophils % Lymphocytes % (Manual) Monocytes % (Manual) Eosinophils % (Manual) Platelet Estimate Large Platelets Polychromasia Hypochromasia (manual) Poikilocytosis (manual Anisocytosis (manual) Microcytosis (manual) Macrocytosis (manual) Target Cells Sodium 134 Potassium 3.5 L Chloride 97 L Carbon Dioxide 25 Anion Gap 16 BUN 49 H Creatinine 2.7 H Est GFR ( Amer) 21 Est GFR (Non-Af Amer) 17 POC Glucose (mg/dL) 255 H 154 H Random Glucose 212 H Calcium 8.4 L Phosphorus 2.5 Magnesium 2.2 Total Bilirubin 2.2 H AST 21 ALT 13 Alkaline Phosphatase 150 H Total Protein 6.8 Albumin 2.8 L Globulin 4.0 H Albumin/Globulin Ratio 0.7 L TSH 3rd Generation 2.13 Pleural Total Protein Pleural LDH Pleural Glucose Pleural Amylase 08/17/16 17:03 WBC RBC Hgb Hct MCV MCH MCHC RDW Plt Count MPV Neut % (Auto) Lymph % (Auto) Drew % (Auto) Eos % (Auto) Baso % (Auto) Neut # Lymph # Drew # Eos # Baso # Neutrophils % (Manual) Band Neutrophils % Lymphocytes % (Manual) Monocytes % (Manual) Eosinophils % (Manual) Platelet Estimate Large Platelets Polychromasia Hypochromasia (manual) Poikilocytosis (manual Anisocytosis (manual) Microcytosis (manual) Macrocytosis (manual) Target Cells Sodium Potassium Chloride Carbon Dioxide Anion Gap BUN Creatinine Est GFR ( Amer) Est GFR (Non-Af Amer) POC Glucose (mg/dL) 280 H Random Glucose Calcium Phosphorus Magnesium Total Bilirubin AST ALT Alkaline Phosphatase Total Protein Albumin Globulin Albumin/Globulin Ratio TSH 3rd Generation Pleural Total Protein Pleural LDH Pleural Glucose Pleural Amylase Critical Care Progress Note - Nutrition Nutrition: Nutrition Category Date Time Status Regular Diet [DIET] Diets 08/14/16 Dinner Active Attending/Attestation - Attestation I have personally seen and examined this patient.: Yes I have fully participated in the care of the patient.: Yes I have reviewed all pertinent clinical information: Yes Notes (Text): 08/17/16 17:44 Patient seen and examined in the intensive care unit. Case discussed with house staff in the morning rounds. Right chest tube in place draining minimal fluid Consider to clamp the chest tube and follow-up chest x-ray Continue hemodialysis and present treatment for now Transfer patient to the floor
[2016-08-17] MEDS: Epoetin Alfa 10,000 unit/ml Dialysis IV SCH (12:10)
--- NOTE | 2016-08-17 12:49 | CP.PCM.PN ---
Subjective - Date & Time of Evaluation Date of Evaluation: 08/17/16 Time of Evaluation: 07:35 - Subjective Subjective: Pt S&E. CT output 65cc/24 hrs. Will remove chest tube once d/c plan is finalized. Pt to be transfer out of ICU into telemetry. Objective - Vital Signs/Intake and Output Vital Signs (last 24 hours): Temp Pulse Resp BP Pulse Ox 98 F 79 21 119/52 L 96 08/17/16 10:00 08/17/16 12:00 08/17/16 10:26 08/17/16 12:00 08/17/16 12:00 Intake and Output: 08/17/16 08/17/16 06:59 18:59 Intake Total 150 200 Output Total 10 Balance 140 200 - Medications Medications: Current Medications Acetaminophen (Tylenol 650mg/20.3ml Solution Ud) 650 mg PO Q4 PRN PRN Reason: pain Last Admin: 08/14/16 22:05 Dose: 650 mg Aspirin (Aspirin Chewable) 81 mg PO DAILY [facility] Last Admin: 08/17/16 09:20 Dose: 81 mg Calcium Acetate (Phoslo) 667 mg PO TIDCC [facility] Last Admin: 08/17/16 08:07 Dose: Not Given Epoetin Sly (Procrit) 10,000 unit IV MWF [facility] Last Admin: 08/17/16 12:10 Dose: 10,000 unit Haloperidol Lactate (Haldol) 0.5 mg IVP Q12 PRN PRN Reason: Agitation Stop: 08/17/16 19:43 Last Admin: 08/15/16 19:59 Dose: 0.5 mg Hydrocortisone Sodium Succinate (Solu-Cortef) 25 mg IV DAILY [facility] Stop: 08/18/16 10:01 Last Admin: 08/17/16 09:18 Dose: 25 mg Cefepime HCl (Maxipime Iv 1 Gm Premix) 50 mls @ 100 mls/hr IVPB DAILY [facility] Last Admin: 08/16/16 09:43 Dose: 100 mls/hr Insulin Human Regular (Novolin R) 0 unit SC ACHS [facility] PRN Reason: Protocol Last Admin: 08/17/16 08:18 Dose: 3 unit Levothyroxine Sodium (Levothyroxine) 200 mcg IV DAILY [facility] Lidocaine HCl (Lidocaine 2% Viscous) 15 ml PO TID PRN PRN Reason: Pain, Mild (1-3) Last Admin: 08/15/16 20:01 Dose: 15 ml Metoprolol Succinate (Toprol Xl) 25 mg PO DAILY [facility] Pantoprazole Sodium (Protonix Inj) 40 mg IVP DAILY [facility] Last Admin: 08/17/16 09:21 Dose: 40 mg Rosuvastatin Calcium (Crestor) 10 mg PO HS [facility] Last Admin: 08/16/16 22:08 Dose: 10 mg - Labs Labs: 08/17/16 06:18 08/17/16 06:18 PT 14.7 SECONDS (9.7-12.2) H 08/12/16 06:00 INR 1.3 08/12/16 06:00 APTT 40 SECONDS (21-34) H 08/12/16 06:00 - Constitutional Appears: No Acute Distress, Chronically Ill - Respiratory Exam Respiratory Exam: Decreased Breath Sounds - Cardiovascular Exam Cardiovascular Exam: +S1, +S2 - GI/Abdominal Exam GI & Abdominal Exam: Soft - Neurological Exam Neurological Exam: Awake - Skin Skin Exam: Normal Color, Warm Assessment and Plan - Assessment and Plan (Free Text) Assessment: 75yo F with hydropneumothorax after thoracentesis, now s/p Right chest tube placement POD#5 -Daily CXR -CT output 65cc/24hr -CT to suction -Plan to remove chest tube once DC plan finalized -Watson Soto
--- NOTE | 2016-08-17 14:11 | CP.PCM.PN ---
Subjective - Date & Time of Evaluation Date of Evaluation: 08/17/16 Time of Evaluation: 14:09 - Subjective Subjective: tolerated hd today, 500 ccuf stable bp chest tube in pt minimally interactive at bedside cannot obtain ROS Objective - Vital Signs/Intake and Output Vital Signs (last 24 hours): Temp Pulse Resp BP Pulse Ox 98 F 79 21 126/48 L 97 08/17/16 10:00 08/17/16 13:00 08/17/16 10:26 08/17/16 13:00 08/17/16 13:00 Intake and Output: 08/17/16 08/17/16 06:59 18:59 Intake Total 150 500 Output Total 10 Balance 140 500 - Medications Medications: Current Medications Acetaminophen (Tylenol 650mg/20.3ml Solution Ud) 650 mg PO Q4 PRN PRN Reason: pain Last Admin: 08/14/16 22:05 Dose: 650 mg Aspirin (Aspirin Chewable) 81 mg PO DAILY [facility] Last Admin: 08/17/16 09:20 Dose: 81 mg Calcium Acetate (Phoslo) 667 mg PO TIDCC [facility] Last Admin: 08/17/16 08:07 Dose: Not Given Epoetin Sly (Procrit) 10,000 unit IV MWF [facility] Last Admin: 08/17/16 12:10 Dose: 10,000 unit Haloperidol Lactate (Haldol) 0.5 mg IVP Q12 PRN PRN Reason: Agitation Stop: 08/17/16 19:43 Last Admin: 08/15/16 19:59 Dose: 0.5 mg Hydrocortisone Sodium Succinate (Solu-Cortef) 25 mg IV DAILY [facility] Stop: 08/18/16 10:01 Last Admin: 08/17/16 09:18 Dose: 25 mg Cefepime HCl (Maxipime Iv 1 Gm Premix) 50 mls @ 100 mls/hr IVPB DAILY [facility] Last Admin: 08/16/16 09:43 Dose: 100 mls/hr Insulin Human Regular (Novolin R) 0 unit SC ACHS [facility] PRN Reason: Protocol Last Admin: 08/17/16 08:18 Dose: 3 unit Levothyroxine Sodium (Levothyroxine) 200 mcg IVP DAILY [facility] Lidocaine HCl (Lidocaine 2% Viscous) 15 ml PO TID PRN PRN Reason: Pain, Mild (1-3) Last Admin: 08/15/16 20:01 Dose: 15 ml Metoprolol Succinate (Toprol Xl) 25 mg PO DAILY [facility] Pantoprazole Sodium (Protonix Inj) 40 mg IVP DAILY [facility] Last Admin: 08/17/16 09:21 Dose: 40 mg Rosuvastatin Calcium (Crestor) 10 mg PO HS [facility] Last Admin: 08/16/16 22:08 Dose: 10 mg - Labs Labs: 08/17/16 06:18 08/17/16 06:18 PT 14.7 SECONDS (9.7-12.2) H 08/12/16 06:00 INR 1.3 08/12/16 06:00 APTT 40 SECONDS (21-34) H 08/12/16 06:00 - Constitutional Appears: Cachectic, Chronically Ill - Eye Exam Eye Exam: Normal appearance - ENT Exam ENT Exam: Mucous Membranes Moist - Respiratory Exam Respiratory Exam: Decreased Breath Sounds. absent: Accessory Muscle Use - Cardiovascular Exam Cardiovascular Exam: REGULAR RHYTHM. absent: Rubs - GI/Abdominal Exam GI & Abdominal Exam: Soft. absent: Tenderness - Extremities Exam Extremities Exam: absent: Pedal Edema - Neurological Exam Neurological Exam: Alert. absent: Oriented x3 Assessment and Plan - Assessment and Plan (Free Text) Assessment: esrd respiratory failure chest tube chest tube management maint HD will continue to follow
[2016-08-17] MEDS: Cefepime IV 1 gm in Dextrose 50 ML IVPB SCH (14:39)
[2016-08-17] MEDS: Metoprolol Succinate 25 mg XL Tab PO SCH (14:42)
[2016-08-18 06:39] LABS: POTASSIUM 3.4 mmol/L (3.6-5.2)
[2016-08-18 06:41] LABS: ALB/GLOB RATIO 0.6 (1.0-2.1); BILIRUBIN,TOTAL 2.1 mg/dL (0.2-1.3); TOTAL PROTEIN 6.7 g/dL (6.3-8.3)
[2016-08-18 06:42] LABS: CALCIUM 8.1 mg/dl (8.6-10.4)
[2016-08-18 06:52] LABS: BASO % 0.2 % (0.0-2.0); EOS # 0.2 K/uL (0.0-0.7); EOS % 2.2 % (0.0-4.0); HEMATOCRIT 31.6 % (34.0-47.0); LYMPH # 0.9 K/uL (1.0-4.3); LYMPH % 9.8 % (20.0-40.0); MEAN CELL VOLUME 96.1 fL (81.0-99.0); MEAN CORPUSCULAR HEMOGLOBIN 31.5 pg (27.0-31.0); MEAN CORPUSCULAR HGB CONC 32.8 g/dL (33.0-37.0); MEAN PLATELET VOLUME 9.4 fL (7.2-11.7); MONO % 11.3 % (0.0-10.0); NRBC % 0.3 % (0.0-2.0); PLATELET COUNT 124 K/uL (130-400); RED CELL DISTRIBUTION WIDTH 19.5 % (11.5-14.5); WHITE BLOOD COUNT 8.9 K/uL (4.8-10.8)
--- NOTE | 2016-08-18 07:03 | CP.PCM.PN ---
Subjective - Date & Time of Evaluation Date of Evaluation: 08/18/16 Time of Evaluation: 07:03 - Subjective Subjective: patient will be followed by hospitalist. Dr. Scales will cover pulmonary hebert Objective - Vital Signs/Intake and Output Vital Signs (last 24 hours): Temp Pulse Resp BP Pulse Ox 97.8 F 81 15 124/53 L 100 08/18/16 04:00 08/18/16 04:26 08/18/16 04:26 08/18/16 04:26 08/18/16 04:26 Intake and Output: 08/18/16 08/18/16 06:59 18:59 Output Total 50 Balance -50 - Medications Medications: Current Medications Acetaminophen (Tylenol 650mg/20.3ml Solution Ud) 650 mg PO Q4 PRN PRN Reason: pain Last Admin: 08/14/16 22:05 Dose: 650 mg Aspirin (Aspirin Chewable) 81 mg PO DAILY [facility] Last Admin: 08/17/16 09:20 Dose: 81 mg Calcium Acetate (Phoslo) 667 mg PO TIDCC [facility] Last Admin: 08/17/16 17:35 Dose: Not Given Epoetin Sly (Procrit) 10,000 unit IV MWF [facility] Last Admin: 08/17/16 12:10 Dose: 10,000 unit Hydrocortisone Sodium Succinate (Solu-Cortef) 25 mg IV DAILY [facility] Stop: 08/18/16 10:01 Last Admin: 08/17/16 09:18 Dose: 25 mg Cefepime HCl (Maxipime Iv 1 Gm Premix) 50 mls @ 100 mls/hr IVPB DAILY [facility] Last Admin: 08/17/16 14:39 Dose: 100 mls/hr Insulin Human Regular (Novolin R) 0 unit SC ACHS [facility] PRN Reason: Protocol Last Admin: 08/17/16 21:35 Dose: Not Given Levothyroxine Sodium (Levothyroxine) 200 mcg IVP DAILY [facility] Lidocaine HCl (Lidocaine 2% Viscous) 15 ml PO TID PRN PRN Reason: Pain, Mild (1-3) Last Admin: 08/15/16 20:01 Dose: 15 ml Metoprolol Succinate (Toprol Xl) 25 mg PO DAILY [facility] Last Admin: 08/17/16 14:42 Dose: Not Given Pantoprazole Sodium (Protonix Inj) 40 mg IVP DAILY [facility] Last Admin: 08/17/16 09:21 Dose: 40 mg Rosuvastatin Calcium (Crestor) 10 mg PO HS [facility] Last Admin: 08/17/16 21:41 Dose: 10 mg - Labs Labs: 08/17/16 06:18 08/18/16 06:15 PT 14.7 SECONDS (9.7-12.2) H 08/12/16 06:00 INR 1.3 08/12/16 06:00 APTT 40 SECONDS (21-34) H 08/12/16 06:00 Assessment and Plan (1) ESRD (end stage renal disease) on dialysis Status: Acute (2) Pleural effusion Status: Acute (3) S/P thoracentesis Status: Acute (4) Hypothermia Status: Acute
--- NOTE | 2016-08-18 07:03 | CP.PCM.PN ---
Subjective - Date & Time of Evaluation Date of Evaluation: 08/17/16 Time of Evaluation: 07:03 - Subjective Subjective: Patient is more awake than yesterday. Some improvement. Eating noted. Still having right-sided chest tube. Drainage is 200 so far. Serous sinus fluid with the some blood. Patient has some chest pain. Left heel ulcer noted. No fever. Currently on antibiotic Objective - Vital Signs/Intake and Output Vital Signs (last 24 hours): Temp Pulse Resp BP Pulse Ox 97.8 F 81 15 124/53 L 100 08/18/16 04:00 08/18/16 04:26 08/18/16 04:26 08/18/16 04:26 08/18/16 04:26 Intake and Output: 08/18/16 08/18/16 06:59 18:59 Output Total 50 Balance -50 chest good air entry bilaterally. Abdomen soft. Extremities no edema - Medications Medications: Current Medications Acetaminophen (Tylenol 650mg/20.3ml Solution Ud) 650 mg PO Q4 PRN PRN Reason: pain Last Admin: 08/14/16 22:05 Dose: 650 mg Aspirin (Aspirin Chewable) 81 mg PO DAILY [facility] Last Admin: 08/17/16 09:20 Dose: 81 mg Calcium Acetate (Phoslo) 667 mg PO TIDCC [facility] Last Admin: 08/17/16 17:35 Dose: Not Given Epoetin Sly (Procrit) 10,000 unit IV MWF [facility] Last Admin: 08/17/16 12:10 Dose: 10,000 unit Hydrocortisone Sodium Succinate (Solu-Cortef) 25 mg IV DAILY [facility] Stop: 08/18/16 10:01 Last Admin: 08/17/16 09:18 Dose: 25 mg Cefepime HCl (Maxipime Iv 1 Gm Premix) 50 mls @ 100 mls/hr IVPB DAILY [facility] Last Admin: 08/17/16 14:39 Dose: 100 mls/hr Insulin Human Regular (Novolin R) 0 unit SC ACHS [facility] PRN Reason: Protocol Last Admin: 08/17/16 21:35 Dose: Not Given Levothyroxine Sodium (Levothyroxine) 200 mcg IVP DAILY [facility] Lidocaine HCl (Lidocaine 2% Viscous) 15 ml PO TID PRN PRN Reason: Pain, Mild (1-3) Last Admin: 04/24/17 20:01 Dose: 15 ml Metoprolol Succinate (Toprol Xl) 25 mg PO DAILY [facility] Last Admin: 08/17/16 14:42 Dose: Not Given Pantoprazole Sodium (Protonix Inj) 40 mg IVP DAILY [facility] Last Admin: 08/17/16 09:21 Dose: 40 mg Rosuvastatin Calcium (Crestor) 10 mg PO HS [facility] Last Admin: 08/17/16 21:41 Dose: 10 mg - Labs Labs: 08/17/16 06:18 08/18/16 06:15 PT 14.7 SECONDS (9.7-12.2) H 08/12/16 06:00 INR 1.3 08/12/16 06:00 APTT 40 SECONDS (21-34) H 08/12/16 06:00 Assessment and Plan (1) ESRD (end stage renal disease) on dialysis Assessment & Plan: end-stage renal disease on dialysis. Generalized weakness. Status: Acute (2) Pleural effusion Assessment & Plan: right-sided pleural effusion, chronic. Status post chest tube. hydro-hemothorax, followed by chest tube placement. Anemia. Stable at this time. I spoke to the patient's daughter. Clinically stable otherwise. Once the chest tube was removed patient can be discharged Status: Acute (3) S/P thoracentesis Status: Acute (4) Hypothermia Status: Acute
--- NOTE | 2016-08-18 07:31 | CP.PCM.PN ---
<Everette Gonzalez - Last Filed: 08/18/16 20:28> Subjective - Date & Time of Evaluation Date of Evaluation: 08/18/16 Time of Evaluation: 09:15 - Subjective Subjective: PGY 1 Medicine Note- Dr. Estrada's service (Covering for Dr. Bliss) Pt seen and examined in no acute distress. Patient's family member present bedside. Patient reports pain at the site of chest tube insertion. Patient admits to eating food that her daughter brought for her. She denies chest pain, dyspnea, palpitations, nausea, vomiting, diarrhea or constipation at this time. Objective - Vital Signs/Intake and Output Vital Signs (last 24 hours): Temp Pulse Resp BP Pulse Ox 97.8 F 81 15 124/53 L 100 08/18/16 04:00 08/18/16 04:26 08/18/16 04:26 08/18/16 04:26 08/18/16 04:26 Intake and Output: 08/18/16 08/18/16 06:59 18:59 Output Total 50 Balance -50 - Medications Medications: Current Medications Acetaminophen (Tylenol 650mg/20.3ml Solution Ud) 650 mg PO Q4 PRN PRN Reason: pain Last Admin: 08/14/16 22:05 Dose: 650 mg Aspirin (Aspirin Chewable) 81 mg PO DAILY [facility] Last Admin: 08/17/16 09:20 Dose: 81 mg Calcium Acetate (Phoslo) 667 mg PO TIDCC [facility] Last Admin: 08/17/16 17:35 Dose: Not Given Epoetin Sly (Procrit) 10,000 unit IV MWF [facility] Last Admin: 08/17/16 12:10 Dose: 10,000 unit Hydrocortisone Sodium Succinate (Solu-Cortef) 25 mg IV DAILY [facility] Stop: 08/18/16 10:01 Last Admin: 08/17/16 09:18 Dose: 25 mg Cefepime HCl (Maxipime Iv 1 Gm Premix) 50 mls @ 100 mls/hr IVPB DAILY [facility] Last Admin: 08/17/16 14:39 Dose: 100 mls/hr Insulin Human Regular (Novolin R) 0 unit SC ACHS [facility] PRN Reason: Protocol Last Admin: 08/17/16 21:35 Dose: Not Given Levothyroxine Sodium (Levothyroxine) 200 mcg IVP DAILY [facility] Lidocaine HCl (Lidocaine 2% Viscous) 15 ml PO TID PRN PRN Reason: Pain, Mild (1-3) Last Admin: 08/15/16 20:01 Dose: 15 ml Metoprolol Succinate (Toprol Xl) 25 mg PO DAILY [facility] Last Admin: 08/17/16 14:42 Dose: Not Given Pantoprazole Sodium (Protonix Inj) 40 mg IVP DAILY [facility] Last Admin: 08/17/16 09:21 Dose: 40 mg Rosuvastatin Calcium (Crestor) 10 mg PO HS [facility] Last Admin: 08/17/16 21:41 Dose: 10 mg - Labs Labs: 08/18/16 06:15 08/18/16 06:15 PT 14.7 SECONDS (9.7-12.2) H 08/12/16 06:00 INR 1.3 08/12/16 06:00 APTT 40 SECONDS (21-34) H 08/12/16 06:00 - Constitutional Appears: Non-toxic, No Acute Distress - Head Exam Head Exam: ATRAUMATIC, NORMAL INSPECTION, NORMOCEPHALIC - Eye Exam Eye Exam: EOMI, Normal appearance, PERRL Pupil Exam: NORMAL ACCOMODATION, PERRL - ENT Exam ENT Exam: Mucous Membranes Moist, Normal Exam - Neck Exam Neck Exam: Full ROM - Respiratory Exam Respiratory Exam: Rales, NORMAL BREATHING PATTERN. absent: Wheezes, Stridor Additional comments: Chest tube in place to suction with some serosanguineous drainage ( darker) noted. - Cardiovascular Exam Cardiovascular Exam: REGULAR RHYTHM, +S1, +S2 - GI/Abdominal Exam GI & Abdominal Exam: Soft. absent: Tenderness - Extremities Exam Extremities Exam: Full ROM, Normal Capillary Refill, Pedal Edema (trace) Additional comments: white circular rashes on shins b/l, offloading boots in place b/l - Back Exam Back Exam: Full ROM - Neurological Exam Neurological Exam: Alert, Awake - Psychiatric Exam Psychiatric exam: Normal Affect, Normal Mood - Skin Skin Exam: Dry, Rash, Warm Assessment and Plan (1) Hydropneumothorax Assessment & Plan: Cardiothoracic surgery - Dr. Soto - S/P anterior chest tube insertion POD # 6currently on suction, output of approx 60cc overnight CT Chest- revealed right sided hydropneumothorax. Patient awake, alert, comfortable, in no respiratory distress. Chest tube to be removed once discharge planning in place Management per surgery Status: Acute (2) Pleural effusion Assessment & Plan: Right sided recurrent pleural effusions - Dr. Walker consulted for thoracentesis - help appreciated - 1800mL was removed Status: Acute (3) CHF (congestive heart failure) Assessment & Plan: Hx of CHF ; Hx CAD: On ASA, Crestor, Toprol Echo LVEF 69%, Refer to report Status: Chronic (4) ESRD (end stage renal disease) on dialysis Assessment & Plan: ESRD on HD MWF Continued [facility] - help appreciated Status: Chronic (5) Anemia Assessment & Plan: -Patient has been transfused total of 2 PRBCs -Current 10.4 -Monitor Status: Chronic (6) Foot ulcer, left Assessment & Plan: -Afebrile, no white count -Initial UA showed UTI- Cefepime Q12H -No growth on urine or blood cultures -Left foot ulcer - f/u wound care recommendations Status: Acute (7) Hypertension Assessment & Plan: on Toprol XL 25mg PO daily Status: Acute (8) Hypothyroidism Assessment & Plan: Synthroid 125 mcg PO daily; continue to monitor TSH , Hydrocortiosone 25mg IV daily x2 days Status: Acute (9) Prophylactic measure Assessment & Plan: -GI: Protonix 40mg IVP daily -DVT: SCDs, VTE contraindicated due to thrombocytopenia -Heart Healthy Diet- Encourage home food intake as well; Calorie count -PT/OT- F/U -Case management referral for [facility], homecare, visiting nurse. Status: Acute <Aileen Estrada V - Last Filed: 08/20/16 15:58> Objective - Vital Signs/Intake and Output Vital Signs (last 24 hours): Temp Pulse Resp BP Pulse Ox 97.2 F L 74 15 131/72 100 08/20/16 12:00 08/20/16 14:17 08/20/16 14:17 08/20/16 14:17 08/20/16 14:17 Intake and Output: 08/20/16 08/20/16 06:59 18:59 Intake Total 650 410 Output Total 20 Balance 630 410 - Medications Medications: Current Medications Acetaminophen (Tylenol 650mg/20.3ml Solution Ud) 650 mg PO Q4 PRN PRN Reason: pain Last Admin: 08/20/16 10:11 Dose: 650 mg Aspirin (Aspirin Chewable) 81 mg PO DAILY [facility] Last Admin: 08/20/16 09:45 Dose: 81 mg Epoetin Sly (Procrit) 10,000 unit IV MWF [facility] Last Admin: 08/19/16 12:32 Dose: 10,000 unit Famotidine (Pepcid) 20 mg PO DAILY [facility] Cefepime HCl (Maxipime Iv 1 Gm Premix) 50 mls @ 100 mls/hr IVPB DAILY [facility] Last Admin: 08/20/16 09:46 Dose: 100 mls/hr Insulin Human Regular (Novolin R) 0 unit SC ACHS [facility] PRN Reason: Protocol Last Admin: 08/20/16 12:08 Dose: 2 unit Levothyroxine Sodium (Synthroid) 125 mcg PO DAILY@0630 [facility] Last Admin: 08/20/16 05:42 Dose: 125 mcg Lidocaine HCl (Lidocaine 2% Viscous) 15 ml PO TID PRN PRN Reason: Pain, Mild (1-3) Last Admin: 08/15/16 20:01 Dose: 15 ml Metoprolol Succinate (Toprol Xl) 25 mg PO DAILY [facility] Last Admin: 08/20/16 09:45 Dose: 25 mg Rosuvastatin Calcium (Crestor) 10 mg PO HS [facility] Last Admin: 08/19/16 21:42 Dose: 10 mg Saccharomyces Boulardii (Florastor) 250 mg PO BID [facility] Last Admin: 08/20/16 09:45 Dose: 250 mg - Labs Labs: 08/20/16 06:06 08/20/16 06:06 PT 14.7 SECONDS (9.7-12.2) H 08/12/16 06:00 INR 1.3 08/12/16 06:00 APTT 40 SECONDS (21-34) H 08/12/16 06:00 Attending/Attestation - Attestation I have personally seen and examined this patient.: Yes I have fully participated in the care of the patient.: Yes I have reviewed all pertinent clinical information, including history, physical exam and plan: Yes Notes (Text): This is late computer entry for 08/18/16. Patient seen, examined, and case discussed with day-time resident. Patient seen at bedside, not eating food (empty tray at bedside). Patient has chest tube with mild drainage. Discussed with CT surgery, when discharge plan is finalized, chest tube will be removed. Will need to follow-up with patient's daughter regarding discharge planning: rehab vs home.
[2016-08-18 08:23] LABS: NEUTROPHIL 87 % (50-75); TOTAL CELLS COUNTED 100
[2016-08-18 08:24] LABS: LARGE PLATELETS PRESENT
[2016-08-18] MEDS: (Novolin R) Insulin Human Regular 100 units/ml vial SC SCH ×4 (08:52→22:30)
--- NOTE | 2016-08-18 09:06 | RAD ---
HISTORY: chest tube placement COMPARISON: 08/17/2016 FINDINGS: LUNGS: Lines and tubes in stable position. Persistent moderate loculated pleural effusion in the right mid to lower lung zone with prominent consolidative changes in the right mid to lower lung zone. Venous congestion. Right peritracheal airspace opacity may represent prominent vasculature. Status post median sternotomy and CABG. PLEURA: As above. CARDIOVASCULAR: Cardiomegaly. Left axillary stent in place. Calcification at the aortic knob. OSSEOUS STRUCTURES: Degenerative changes in the spine and shoulders. VISUALIZED UPPER ABDOMEN: Normal. OTHER FINDINGS: None. IMPRESSION: Lines and tubes in stable position. Persistent moderate loculated pleural effusion in the right mid to lower lung zone with prominent consolidative changes in the right mid to lower lung zone. Venous congestion. Right peritracheal airspace opacity may represent prominent vasculature. Status post median sternotomy and CABG.
[2016-08-18 09:44] LABS: PHOSPHOROUS 1.9 mg/dL (2.5-4.5)
[2016-08-18] MEDS ORDERED: Levothyroxine 200 mcg (0.2 mg) Inj IVP SCH (10:00)
[2016-08-18] MEDS ORDERED: Potassium Chloride 20 mEq/15 ml LIQ UD PO ONE ×2 (10:00→18:10)
[2016-08-18] MEDS: Cefepime IV 1 gm in Dextrose 50 ML IVPB SCH (10:41)
[2016-08-18] MEDS: Metoprolol Succinate 25 mg XL Tab PO SCH (10:47)
--- NOTE | 2016-08-18 10:48 | CP.PCM.PN ---
Subjective - Date & Time of Evaluation Date of Evaluation: 08/18/16 Time of Evaluation: 10:46 - Subjective Subjective: More alert Less dyspneic Tolerating dialysis MWF CT still in place- discussed with surgery Eating better? Objective - Vital Signs/Intake and Output Vital Signs (last 24 hours): Temp Pulse Resp BP Pulse Ox 97.8 F 85 22 132/60 99 08/18/16 04:00 08/18/16 09:00 08/18/16 09:00 08/18/16 08:56 08/18/16 09:00 Intake and Output: 08/18/16 08/18/16 06:59 18:59 Output Total 50 Balance -50 - Medications Medications: Current Medications Acetaminophen (Tylenol 650mg/20.3ml Solution Ud) 650 mg PO Q4 PRN PRN Reason: pain Last Admin: 08/14/16 22:05 Dose: 650 mg Aspirin (Aspirin Chewable) 81 mg PO DAILY [facility] Last Admin: 08/17/16 09:20 Dose: 81 mg Calcium Acetate (Phoslo) 667 mg PO TIDCC [facility] Last Admin: 08/18/16 08:53 Dose: Not Given Epoetin Sly (Procrit) 10,000 unit IV MWF [facility] Last Admin: 08/17/16 12:10 Dose: 10,000 unit Cefepime HCl (Maxipime Iv 1 Gm Premix) 50 mls @ 100 mls/hr IVPB DAILY [facility] Last Admin: 08/18/16 10:41 Dose: 100 mls/hr Insulin Human Regular (Novolin R) 0 unit SC ACHS [facility] PRN Reason: Protocol Last Admin: 08/18/16 08:52 Dose: 2 unit Levothyroxine Sodium (Synthroid) 125 mcg PO DAILY@0630 [facility] Lidocaine HCl (Lidocaine 2% Viscous) 15 ml PO TID PRN PRN Reason: Pain, Mild (1-3) Last Admin: 08/15/16 20:01 Dose: 15 ml Metoprolol Succinate (Toprol Xl) 25 mg PO DAILY [facility] Last Admin: 08/17/16 14:42 Dose: Not Given Pantoprazole Sodium (Protonix Inj) 40 mg IVP DAILY [facility] Last Admin: 08/17/16 09:21 Dose: 40 mg Rosuvastatin Calcium (Crestor) 10 mg PO HS [facility] Last Admin: 08/17/16 21:41 Dose: 10 mg Saccharomyces Boulardii (Florastor) 250 mg PO BID [facility] - Labs Labs: 08/18/16 06:15 08/18/16 06:15 PT 14.7 SECONDS (9.7-12.2) H 08/12/16 06:00 INR 1.3 08/12/16 06:00 APTT 40 SECONDS (21-34) H 08/12/16 06:00 - Constitutional Appears: Non-toxic, No Acute Distress, Chronically Ill - Head Exam Head Exam: ATRAUMATIC, NORMAL INSPECTION - Eye Exam Eye Exam: EOMI, Normal appearance - Neck Exam Neck Exam: Normal Inspection. absent: Tenderness - Respiratory Exam Respiratory Exam: Decreased Breath Sounds, NORMAL BREATHING PATTERN - Cardiovascular Exam Cardiovascular Exam: REGULAR RHYTHM, +S1 - GI/Abdominal Exam GI & Abdominal Exam: Soft. absent: Tenderness - Extremities Exam Extremities Exam: Normal Inspection. absent: Tenderness - Neurological Exam Neurological Exam: Alert, CN II-XII Intact - Skin Skin Exam: Dry, Warm Assessment and Plan (1) Diabetes mellitus Status: Acute (2) CHF (congestive heart failure) Status: Acute (3) Secondary hyperparathyroidism Status: Acute (4) ESRD (end stage renal disease) on dialysis Status: Acute (5) Hydropneumothorax Status: Acute - Assessment and Plan (Free Text) Plan: Dialysis MWF CT management as per surgery Encourage better feeding Monitor chemistries
--- NOTE | 2016-08-18 17:46 | CP.PCM.PN ---
Subjective - Date & Time of Evaluation Date of Evaluation: 08/18/16 Time of Evaluation: 07:45 - Subjective Subjective: CT Surgery: Dr. Soto Pt S&E this AM. Patient is more alert. Brother at bedside states she is now having conversations and recognizing people. Brother reports pt's mental status is much improved. CT dressings changed, currently c/d/i. Objective - Vital Signs/Intake and Output Vital Signs (last 24 hours): Temp Pulse Resp BP Pulse Ox 97.8 F 85 22 132/60 99 08/18/16 04:00 08/18/16 09:00 08/18/16 09:00 08/18/16 08:56 08/18/16 09:00 Intake and Output: 08/18/16 08/18/16 06:59 18:59 Output Total 50 Balance -50 - Medications Medications: Current Medications Acetaminophen (Tylenol 650mg/20.3ml Solution Ud) 650 mg PO Q4 PRN PRN Reason: pain Last Admin: 08/14/16 22:05 Dose: 650 mg Aspirin (Aspirin Chewable) 81 mg PO DAILY [facility] Last Admin: 08/18/16 10:47 Dose: 81 mg Epoetin Sly (Procrit) 10,000 unit IV MWF [facility] Last Admin: 08/17/16 12:10 Dose: 10,000 unit Cefepime HCl (Maxipime Iv 1 Gm Premix) 50 mls @ 100 mls/hr IVPB DAILY [facility] Last Admin: 08/18/16 10:41 Dose: 100 mls/hr Insulin Human Regular (Novolin R) 0 unit SC ACHS [facility] PRN Reason: Protocol Last Admin: 08/18/16 08:52 Dose: 2 unit Levothyroxine Sodium (Synthroid) 125 mcg PO DAILY@0630 [facility] Lidocaine HCl (Lidocaine 2% Viscous) 15 ml PO TID PRN PRN Reason: Pain, Mild (1-3) Last Admin: 08/15/16 20:01 Dose: 15 ml Metoprolol Succinate (Toprol Xl) 25 mg PO DAILY [facility] Last Admin: 08/18/16 10:47 Dose: 25 mg Pantoprazole Sodium (Protonix Inj) 40 mg IVP DAILY [facility] Last Admin: 08/18/16 10:47 Dose: 40 mg Rosuvastatin Calcium (Crestor) 10 mg PO HS [facility] Last Admin: 08/17/16 21:41 Dose: 10 mg Saccharomyces Boulardii (Florastor) 250 mg PO BID [facility] - Labs Labs: 08/18/16 06:15 08/18/16 06:15 PT 14.7 SECONDS (9.7-12.2) H 08/12/16 06:00 INR 1.3 08/12/16 06:00 APTT 40 SECONDS (21-34) H 08/12/16 06:00 - Constitutional Appears: No Acute Distress - Head Exam Head Exam: NORMOCEPHALIC - ENT Exam ENT Exam: Mucous Membranes Moist - Respiratory Exam Respiratory Exam: NORMAL BREATHING PATTERN - Cardiovascular Exam Cardiovascular Exam: +S1, +S2 - GI/Abdominal Exam GI & Abdominal Exam: Soft. absent: Tenderness - Neurological Exam Neurological Exam: Alert, Awake - Psychiatric Exam Psychiatric exam: Normal Mood - Skin Skin Exam: Dry, Warm Assessment and Plan - Assessment and Plan (Free Text) Assessment: 75yo F with hydropneumothorax after thoracentesis, now s/p Right chest tube placement POD#6 -Daily CXR -CT output 110cc/24hr -CT to suction -Plan to remove chest tube once DC plan finalized -Watson Soto
[2016-08-18] MEDS: Saccharomyces Boulardi 250 mg Cap PO SCH (18:17)
[2016-08-19 06:37] LABS: BASO % 0.3 % (0.0-2.0); EOS # 0.1 K/uL (0.0-0.7); HEMATOCRIT 35.2 % (34.0-47.0); LYMPH % 7.7 % (20.0-40.0); MEAN CELL VOLUME 96.1 fL (81.0-99.0); MEAN CORPUSCULAR HEMOGLOBIN 31.2 pg (27.0-31.0); MEAN CORPUSCULAR HGB CONC 32.5 g/dL (33.0-37.0); MEAN PLATELET VOLUME 9.9 fL (7.2-11.7); MONO # 1.3 K/uL (0.0-0.8); MONO % 10.3 % (0.0-10.0); NRBC % 0.2 % (0.0-2.0); PLATELET COUNT 150 K/uL (130-400); RED CELL DISTRIBUTION WIDTH 19.2 % (11.5-14.5); WHITE BLOOD COUNT 12.6 K/uL (4.8-10.8)
[2016-08-19 07:03] LABS: POTASSIUM 3.8 mmol/L (3.6-5.2)
[2016-08-19 07:05] LABS: ALB/GLOB RATIO 0.7 (1.0-2.1); BILIRUBIN,TOTAL 2.3 mg/dL (0.2-1.3); PHOSPHOROUS 2.1 mg/dL (2.5-4.5); TOTAL PROTEIN 6.9 g/dL (6.3-8.3)
[2016-08-19 07:06] LABS: CALCIUM 7.9 mg/dl (8.6-10.4)
[2016-08-19] MEDS: Levothyroxine 125 MCG TAB PO SCH (07:22)
[2016-08-19 08:15] LABS: EOSINOPHIL 2 % (0-4); NEUTROPHIL 81 % (50-75); TOTAL CELLS COUNTED 100
[2016-08-19] MEDS: (Novolin R) Insulin Human Regular 100 units/ml vial SC SCH ×4 (08:30→21:36)
--- NOTE | 2016-08-19 08:44 | RAD ---
HISTORY: chest tube placement COMPARISON: 08/18/2016 FINDINGS: LUNGS: Lines and tubes in stable position. Persistent moderate loculated right pleural effusion with consolidative changes in the right mid to lower lung zone. Biapical pleural thickening with upper lobe granulomatous changes. Patchy increased markings at the left lung base. PLEURA: As above. CARDIOVASCULAR: Status post median sternotomy and CABG. Calcification at the aortic knob. OSSEOUS STRUCTURES: Degenerative changes in the spine and bilateral shoulders. Question loose bodies at the left glenohumeral joint space. Question deformity of the right proximal humerus. VISUALIZED UPPER ABDOMEN: Normal. OTHER FINDINGS: None. IMPRESSION: No significant interval change.
--- NOTE | 2016-08-19 08:52 | CP.PCM.PN ---
Subjective - Date & Time of Evaluation Date of Evaluation: 08/19/16 Time of Evaluation: 08:00 - Subjective Subjective: CT Surgery: Dr. Soto Patient seen and examined this AM. Patient is awake and alert. CT output 170cc/ 24 hours. Patient eating breakfast and smiling. Objective - Vital Signs/Intake and Output Vital Signs (last 24 hours): Temp Pulse Resp BP Pulse Ox 98.4 F 75 17 145/63 97 08/19/16 04:00 08/19/16 07:00 08/19/16 07:00 08/19/16 06:02 08/19/16 05:00 Intake and Output: 08/19/16 08/19/16 06:59 18:59 Intake Total 700 Output Total 1 Balance 699 - Medications Medications: Current Medications Acetaminophen (Tylenol 650mg/20.3ml Solution Ud) 650 mg PO Q4 PRN PRN Reason: pain Last Admin: 08/14/16 22:05 Dose: 650 mg Aspirin (Aspirin Chewable) 81 mg PO DAILY [facility] Last Admin: 08/18/16 10:47 Dose: 81 mg Epoetin Sly (Procrit) 10,000 unit IV MWF [facility] Last Admin: 08/17/16 12:10 Dose: 10,000 unit Cefepime HCl (Maxipime Iv 1 Gm Premix) 50 mls @ 100 mls/hr IVPB DAILY [facility] Last Admin: 08/18/16 10:41 Dose: 100 mls/hr Insulin Human Regular (Novolin R) 0 unit SC ACHS [facility] PRN Reason: Protocol Last Admin: 08/18/16 22:30 Dose: Not Given Levothyroxine Sodium (Synthroid) 125 mcg PO DAILY@0630 [facility] Last Admin: 08/19/16 07:22 Dose: 125 mcg Lidocaine HCl (Lidocaine 2% Viscous) 15 ml PO TID PRN PRN Reason: Pain, Mild (1-3) Last Admin: 08/15/16 20:01 Dose: 15 ml Metoprolol Succinate (Toprol Xl) 25 mg PO DAILY [facility] Last Admin: 08/18/16 10:47 Dose: 25 mg Pantoprazole Sodium (Protonix Inj) 40 mg IVP DAILY [facility] Last Admin: 08/18/16 10:47 Dose: 40 mg Rosuvastatin Calcium (Crestor) 10 mg PO HS [facility] Last Admin: 08/18/16 21:03 Dose: 10 mg Saccharomyces Boulardii (Florastor) 250 mg PO BID [facility] Last Admin: 08/18/16 18:17 Dose: 250 mg - Labs Labs: 08/19/16 06:28 08/19/16 06:26 PT 14.7 SECONDS (9.7-12.2) H 08/12/16 06:00 INR 1.3 08/12/16 06:00 APTT 40 SECONDS (21-34) H 08/12/16 06:00 - Constitutional Appears: No Acute Distress - Eye Exam Eye Exam: Normal appearance - ENT Exam ENT Exam: Mucous Membranes Moist - Cardiovascular Exam Cardiovascular Exam: +S1, +S2 - GI/Abdominal Exam GI & Abdominal Exam: Soft - Neurological Exam Neurological Exam: Alert, Awake - Psychiatric Exam Psychiatric exam: Normal Mood - Skin Skin Exam: Dry, Warm Assessment and Plan - Assessment and Plan (Free Text) Assessment: 75yo F with hydropneumothorax after thoracentesis, now s/p Right chest tube placement POD#6 -Daily CXR -CT output 170cc/24hr -CT to suction -Plan to remove chest tube once DC plan finalized -Watson Soto
--- NOTE | 2016-08-19 10:05 | CP.PCM.PN ---
<Everette Gonzalez - Last Filed: 08/19/16 21:16> Subjective - Date & Time of Evaluation Date of Evaluation: 08/19/16 Time of Evaluation: 06:23 - Subjective Subjective: PGY 1 Medicine Note- Dr. Estrada's service- Pt seen and examined in no acute distress. Brother present bedside. Patient denies pain at this time. Patient's daughter and brother encourage food intake. Patient denies shortness of breath, chest pain, palpitations, fevers or chills at this time. Objective - Vital Signs/Intake and Output Vital Signs (last 24 hours): Temp Pulse Resp BP Pulse Ox 98.4 F 75 17 145/63 97 08/19/16 04:00 08/19/16 07:00 08/19/16 07:00 08/19/16 06:02 08/19/16 05:00 Intake and Output: 08/19/16 08/19/16 06:59 18:59 Intake Total 700 Output Total 1 Balance 699 - Medications Medications: Current Medications Acetaminophen (Tylenol 650mg/20.3ml Solution Ud) 650 mg PO Q4 PRN PRN Reason: pain Last Admin: 08/14/16 22:05 Dose: 650 mg Aspirin (Aspirin Chewable) 81 mg PO DAILY [facility] Last Admin: 08/18/16 10:47 Dose: 81 mg Epoetin Sly (Procrit) 10,000 unit IV MWF [facility] Last Admin: 08/17/16 12:10 Dose: 10,000 unit Cefepime HCl (Maxipime Iv 1 Gm Premix) 50 mls @ 100 mls/hr IVPB DAILY [facility] Last Admin: 08/18/16 10:41 Dose: 100 mls/hr Insulin Human Regular (Novolin R) 0 unit SC ACHS [facility] PRN Reason: Protocol Last Admin: 08/18/16 22:30 Dose: Not Given Levothyroxine Sodium (Synthroid) 125 mcg PO DAILY@0630 [facility] Last Admin: 08/19/16 07:22 Dose: 125 mcg Lidocaine HCl (Lidocaine 2% Viscous) 15 ml PO TID PRN PRN Reason: Pain, Mild (1-3) Last Admin: 08/15/16 20:01 Dose: 15 ml Metoprolol Succinate (Toprol Xl) 25 mg PO DAILY [facility] Last Admin: 08/18/16 10:47 Dose: 25 mg Pantoprazole Sodium (Protonix Inj) 40 mg IVP DAILY [facility] Last Admin: 08/18/16 10:47 Dose: 40 mg Rosuvastatin Calcium (Crestor) 10 mg PO HS [facility] Last Admin: 08/18/16 21:03 Dose: 10 mg Saccharomyces Boulardii (Florastor) 250 mg PO BID [facility] Last Admin: 08/18/16 18:17 Dose: 250 mg - Labs Labs: 08/19/16 06:28 08/19/16 06:26 PT 14.7 SECONDS (9.7-12.2) H 08/12/16 06:00 INR 1.3 08/12/16 06:00 APTT 40 SECONDS (21-34) H 08/12/16 06:00 - Constitutional Appears: Non-toxic, No Acute Distress - Head Exam Head Exam: ATRAUMATIC, NORMAL INSPECTION, NORMOCEPHALIC - Eye Exam Eye Exam: EOMI, Normal appearance, PERRL Pupil Exam: NORMAL ACCOMODATION - ENT Exam ENT Exam: Mucous Membranes Moist, Normal Exam - Neck Exam Neck Exam: Full ROM - Respiratory Exam Respiratory Exam: Rales Additional comments: chest tube in place with darkened serosanguineous drainage. - Cardiovascular Exam Cardiovascular Exam: +S1, +S2 - GI/Abdominal Exam GI & Abdominal Exam: Soft, Normal Bowel Sounds - Extremities Exam Extremities Exam: Full ROM - Back Exam Back Exam: Full ROM - Neurological Exam Neurological Exam: Alert, Awake - Psychiatric Exam Psychiatric exam: Flat Affect, Normal Affect, Normal Mood - Skin Skin Exam: Dry, Normal Color, Warm Assessment and Plan (1) Hydropneumothorax Status: Acute (2) Pleural effusion Status: Acute (3) CHF (congestive heart failure) Status: Chronic (4) ESRD (end stage renal disease) on dialysis Status: Chronic (5) Anemia Status: Chronic (6) Foot ulcer, left Status: Acute (7) Hypertension Status: Acute (8) Hypothyroidism Status: Acute (9) Prophylactic measure Status: Acute - Assessment and Plan (Free Text) Assessment: (1) Hydropneumothorax Assessment & Plan: Cardiothoracic surgery - Dr. Soto - S/P anterior chest tube insertion POD # 6currently on suction, output of approx 120cc over the past shift. CT Chest- revealed right sided hydropneumothorax. Patient awake, alert, comfortable, in no respiratory distress. Chest tube to be removed once discharge planning in place. Daughter deciding on [facility] options. F/U with case management. Management per surgery Status: Acute (2) Pleural effusion Assessment & Plan: Right sided recurrent pleural effusions - Dr. Walker consulted for thoracentesis - help appreciated - 1800mL was removed Status: Acute (3) CHF (congestive heart failure) Assessment & Plan: Hx of CHF ; Hx CAD: On ASA, Crestor, Toprol Echo LVEF 69%, Refer to report Status: Chronic (4) ESRD (end stage renal disease) on dialysis Assessment & Plan: ESRD on HD MWF Continued Elizabeth Mcfarland - help appreciated Status: Chronic (5) Anemia Assessment & Plan: -Patient has been transfused total of 2 PRBCs -Current 11.4 -Monitor Status: Chronic (6) Foot ulcer, left Assessment & Plan: -Afebrile, no white count -Initial UA showed UTI- Cefepime Q12H -No growth on urine or blood cultures -Left foot ulcer - f/u wound care recommendations Status: Acute (7) Hypertension Assessment & Plan: on Toprol XL 25mg PO daily Status: Acute (8) Hypothyroidism Assessment & Plan: Synthroid 125 mcg PO daily; continue to monitor TSH , Hydrocortiosone 25mg IV daily x2 days Status: Acute (9) Prophylactic measure Assessment & Plan: -GI: Protonix 40mg IVP daily -DVT: SCDs, VTE contraindicated due to thrombocytopenia -Heart Healthy Diet- Encourage home food intake as well; Calorie count -PT/OT- F/U -Case management referral for [facility], homecare, visiting nurse. Daughter to decide on [facility] options. F/U with case management. Status: Acute <Aileen Estrada V - Last Filed: 08/20/16 15:56> Objective - Vital Signs/Intake and Output Vital Signs (last 24 hours): Temp Pulse Resp BP Pulse Ox 97.2 F L 74 15 131/72 100 08/20/16 12:00 08/20/16 14:17 08/20/16 14:17 08/20/16 14:17 08/20/16 14:17 Intake and Output: 08/20/16 08/20/16 06:59 18:59 Intake Total 650 410 Output Total 20 Balance 630 410 - Medications Medications: Current Medications Acetaminophen (Tylenol 650mg/20.3ml Solution Ud) 650 mg PO Q4 PRN PRN Reason: pain Last Admin: 08/20/16 10:11 Dose: 650 mg Aspirin (Aspirin Chewable) 81 mg PO DAILY [facility] Last Admin: 08/20/16 09:45 Dose: 81 mg Epoetin Sly (Procrit) 10,000 unit IV MWF [facility] Last Admin: 08/19/16 12:32 Dose: 10,000 unit Famotidine (Pepcid) 20 mg PO DAILY [facility] Cefepime HCl (Maxipime Iv 1 Gm Premix) 50 mls @ 100 mls/hr IVPB DAILY [facility] Last Admin: 08/20/16 09:46 Dose: 100 mls/hr Insulin Human Regular (Novolin R) 0 unit SC ACHS [facility] PRN Reason: Protocol Last Admin: 08/20/16 12:08 Dose: 2 unit Levothyroxine Sodium (Synthroid) 125 mcg PO DAILY@0630 [facility] Last Admin: 08/20/16 05:42 Dose: 125 mcg Lidocaine HCl (Lidocaine 2% Viscous) 15 ml PO TID PRN PRN Reason: Pain, Mild (1-3) Last Admin: 08/15/16 20:01 Dose: 15 ml Metoprolol Succinate (Toprol Xl) 25 mg PO DAILY [facility] Last Admin: 08/20/16 09:45 Dose: 25 mg Rosuvastatin Calcium (Crestor) 10 mg PO HS [facility] Last Admin: 08/19/16 21:42 Dose: 10 mg Saccharomyces Boulardii (Florastor) 250 mg PO BID [facility] Last Admin: 08/20/16 09:45 Dose: 250 mg - Labs Labs: 08/20/16 06:06 08/20/16 06:06 PT 14.7 SECONDS (9.7-12.2) H 08/12/16 06:00 INR 1.3 08/12/16 06:00 APTT 40 SECONDS (21-34) H 08/12/16 06:00 Attending/Attestation - Attestation I have personally seen and examined this patient.: Yes I have fully participated in the care of the patient.: Yes I have reviewed all pertinent clinical information, including history, physical exam and plan: Yes Notes (Text): This is late computer entry for 08/19/16. Patient seen, examined, and case discussed with day-time resident. Patient is POD#6 of chest tube placement, has minimal drainage. Patient seen during dialysis yesterday. Discussed briefly with the daughter, awaiting regarding rehab options per prior discussion with palliative and case management. Daughter requesting closer spot of the rehab. When discharge planning is finalized, chest tube will be removed.
[2016-08-19] MEDS ORDERED: Sodium Phosphate 15 MMOLE in Sodium Chloride 0.9% 250 ML IVPB ONE (10:07)
[2016-08-19] MEDS: Saccharomyces Boulardi 250 mg Cap PO SCH ×2 (11:00→17:52)
[2016-08-19] MEDS: Metoprolol Succinate 25 mg XL Tab PO SCH (11:02)
--- NOTE | 2016-08-19 12:25 | CP.PCM.PN ---
Subjective - Date & Time of Evaluation Date of Evaluation: 08/19/16 Time of Evaluation: 12:21 - Subjective Subjective: More alert; less dypneic. Chest tube still in place On dialysis earlier- goal UF 1000ml Phos low- repleted No new complaints, eatoing better Objective - Vital Signs/Intake and Output Vital Signs (last 24 hours): Temp Pulse Resp BP Pulse Ox 97.5 F L 74 16 122/53 L 98 08/19/16 09:40 08/19/16 12:03 08/19/16 12:03 08/19/16 12:03 08/19/16 11:18 Intake and Output: 08/19/16 08/19/16 06:59 18:59 Intake Total 700 Output Total 1 Balance 699 - Medications Medications: Current Medications Acetaminophen (Tylenol 650mg/20.3ml Solution Ud) 650 mg PO Q4 PRN PRN Reason: pain Last Admin: 08/14/16 22:05 Dose: 650 mg Aspirin (Aspirin Chewable) 81 mg PO DAILY [facility] Last Admin: 08/19/16 11:00 Dose: 81 mg Epoetin Sly (Procrit) 10,000 unit IV MWF [facility] Last Admin: 08/17/16 12:10 Dose: 10,000 unit Cefepime HCl (Maxipime Iv 1 Gm Premix) 50 mls @ 100 mls/hr IVPB DAILY [facility] Last Admin: 08/18/16 10:41 Dose: 100 mls/hr Sodium Phosphate 15 mmole/ (Sodium Chloride) 255 mls @ 50 mls/hr IVPB .Q5H6M ONE Stop: 08/19/16 15:12 Insulin Human Regular (Novolin R) 0 unit SC ACHS [facility] PRN Reason: Protocol Last Admin: 08/19/16 08:30 Dose: 3 unit Levothyroxine Sodium (Synthroid) 125 mcg PO DAILY@0630 [facility] Last Admin: 08/19/16 07:22 Dose: 125 mcg Lidocaine HCl (Lidocaine 2% Viscous) 15 ml PO TID PRN PRN Reason: Pain, Mild (1-3) Last Admin: 08/15/16 20:01 Dose: 15 ml Metoprolol Succinate (Toprol Xl) 25 mg PO DAILY [facility] Last Admin: 08/19/16 11:02 Dose: Not Given Pantoprazole Sodium (Protonix Inj) 40 mg IVP DAILY [facility] Last Admin: 08/19/16 11:00 Dose: 40 mg Rosuvastatin Calcium (Crestor) 10 mg PO HS [facility] Last Admin: 08/18/16 21:03 Dose: 10 mg Saccharomyces Boulardii (Florastor) 250 mg PO BID [facility] Last Admin: 08/19/16 11:00 Dose: 250 mg - Labs Labs: 08/19/16 06:28 08/19/16 06:26 PT 14.7 SECONDS (9.7-12.2) H 08/12/16 06:00 INR 1.3 08/12/16 06:00 APTT 40 SECONDS (21-34) H 08/12/16 06:00 - Constitutional Appears: No Acute Distress, Chronically Ill - Head Exam Head Exam: ATRAUMATIC, NORMAL INSPECTION - Eye Exam Eye Exam: EOMI, Normal appearance - Neck Exam Neck Exam: Normal Inspection. absent: Tenderness - Respiratory Exam Respiratory Exam: Decreased Breath Sounds, NORMAL BREATHING PATTERN - Cardiovascular Exam Cardiovascular Exam: REGULAR RHYTHM, +S1 - GI/Abdominal Exam GI & Abdominal Exam: Soft. absent: Tenderness - Extremities Exam Extremities Exam: Normal Inspection. absent: Tenderness - Neurological Exam Neurological Exam: Alert, CN II-XII Intact - Skin Skin Exam: Dry, Warm Assessment and Plan (1) Diabetes mellitus Status: Acute (2) CHF (congestive heart failure) Status: Chronic (3) Secondary hyperparathyroidism Status: Acute (4) ESRD (end stage renal disease) on dialysis Status: Chronic (5) Hydropneumothorax Status: Acute - Assessment and Plan (Free Text) Plan: Continue dialysis MWF Await chest tube removal Same meds Continue same ICU care IV ABs
[2016-08-19] MEDS: Epoetin Alfa 10,000 unit/ml Dialysis IV SCH (12:32)
[2016-08-19] MEDS: Cefepime IV 1 gm in Dextrose 50 ML IVPB SCH (14:47)
--- NOTE | 2016-08-19 18:39 | CP.PCM.PN ---
Subjective - Date & Time of Evaluation Date of Evaluation: 08/19/16 Time of Evaluation: 18:20 - Subjective Subjective: Patient seen and examined. Lying comfortably in no acute distress with chest tube in place draining minimal fluid Status post hemodialysis Responsive Objective - Vital Signs/Intake and Output Vital Signs (last 24 hours): Temp Pulse Resp BP Pulse Ox 97.4 F L 79 21 115/55 L 100 08/19/16 16:00 08/19/16 18:00 08/19/16 18:00 08/19/16 17:57 08/19/16 16:06 Intake and Output: 08/19/16 08/19/16 06:59 18:59 Intake Total 700 400 Output Total 1 40 Balance 699 360 - Medications Medications: Current Medications Acetaminophen (Tylenol 650mg/20.3ml Solution Ud) 650 mg PO Q4 PRN PRN Reason: pain Last Admin: 08/14/16 22:05 Dose: 650 mg Aspirin (Aspirin Chewable) 81 mg PO DAILY [facility] Last Admin: 08/19/16 11:00 Dose: 81 mg Epoetin Sly (Procrit) 10,000 unit IV MWF [facility] Last Admin: 08/19/16 12:32 Dose: 10,000 unit Cefepime HCl (Maxipime Iv 1 Gm Premix) 50 mls @ 100 mls/hr IVPB DAILY [facility] Last Admin: 08/19/16 14:47 Dose: 100 mls/hr Insulin Human Regular (Novolin R) 0 unit SC ACHS [facility] PRN Reason: Protocol Last Admin: 08/19/16 16:35 Dose: 2 unit Levothyroxine Sodium (Synthroid) 125 mcg PO DAILY@0630 [facility] Last Admin: 08/19/16 07:22 Dose: 125 mcg Lidocaine HCl (Lidocaine 2% Viscous) 15 ml PO TID PRN PRN Reason: Pain, Mild (1-3) Last Admin: 08/15/16 20:01 Dose: 15 ml Metoprolol Succinate (Toprol Xl) 25 mg PO DAILY [facility] Last Admin: 08/19/16 11:02 Dose: Not Given Pantoprazole Sodium (Protonix Inj) 40 mg IVP DAILY [facility] Last Admin: 08/19/16 11:00 Dose: 40 mg Rosuvastatin Calcium (Crestor) 10 mg PO HS [facility] Last Admin: 08/18/16 21:03 Dose: 10 mg Saccharomyces Boulardii (Florastor) 250 mg PO BID [facility] Last Admin: 08/19/16 17:52 Dose: 250 mg - Labs Labs: 08/19/16 06:28 08/19/16 06:26 PT 14.7 SECONDS (9.7-12.2) H 08/12/16 06:00 INR 1.3 08/12/16 06:00 APTT 40 SECONDS (21-34) H 08/12/16 06:00 - Constitutional Appears: No Acute Distress - Head Exam Head Exam: ATRAUMATIC, NORMOCEPHALIC - ENT Exam ENT Exam: Mucous Membranes Moist - Neck Exam Neck Exam: Normal Inspection - Respiratory Exam Respiratory Exam: Decreased Breath Sounds - GI/Abdominal Exam GI & Abdominal Exam: Soft, Normal Bowel Sounds - Extremities Exam Extremities Exam: Normal Inspection Assessment and Plan (1) Hydropneumothorax Assessment & Plan: Status post chest tube insertion by thoracic Chest tube to be removed once discharge planning in place. Status: Acute (2) ESRD (end stage renal disease) on dialysis Status: Chronic
[2016-08-20] MEDS: Levothyroxine 125 MCG TAB PO SCH (05:42)
[2016-08-20 06:14] LABS: BASO % 0.3 % (0.0-2.0); EOS # 0.5 K/uL (0.0-0.7); EOS % 3.9 % (0.0-4.0); HEMATOCRIT 32.6 % (34.0-47.0); LYMPH # 0.7 K/uL (1.0-4.3); LYMPH % 5.4 % (20.0-40.0); MEAN CELL VOLUME 96.5 fL (81.0-99.0); MEAN CORPUSCULAR HEMOGLOBIN 31.3 pg (27.0-31.0); MEAN CORPUSCULAR HGB CONC 32.4 g/dL (33.0-37.0); MEAN PLATELET VOLUME 9.4 fL (7.2-11.7); MONO # 1.1 K/uL (0.0-0.8); MONO % 8.8 % (0.0-10.0); NRBC % 0.2 % (0.0-2.0); PLATELET COUNT 155 K/uL (130-400); RED CELL DISTRIBUTION WIDTH 19.3 % (11.5-14.5); WHITE BLOOD COUNT 12.2 K/uL (4.8-10.8)
[2016-08-20 06:22] LABS: POTASSIUM 3.9 mmol/L (3.6-5.2)
[2016-08-20 06:24] LABS: ALB/GLOB RATIO 0.6 (1.0-2.1); BILIRUBIN,TOTAL 2.1 mg/dL (0.2-1.3); TOTAL PROTEIN 6.5 g/dL (6.3-8.3)
[2016-08-20 06:25] LABS: CALCIUM 7.6 mg/dl (8.6-10.4); MAGNESIUM 1.9 mg/dL (1.6-2.3); PHOSPHOROUS 3.3 mg/dL (2.5-4.5)
[2016-08-20] MEDS: (Novolin R) Insulin Human Regular 100 units/ml vial SC SCH ×4 (07:30→21:00)
[2016-08-20 08:16] LABS: EOSINOPHIL 2 % (0-4); NEUTROPHIL 83 % (50-75); TOTAL CELLS COUNTED 100
[2016-08-20 08:17] LABS: LARGE PLATELETS PRESENT
[2016-08-20 08:18] LABS: GIANT PLATELETS PRESENT
--- NOTE | 2016-08-20 08:36 | CP.PCM.PN ---
Subjective - Date & Time of Evaluation Date of Evaluation: 08/20/16 Time of Evaluation: 07:00 - Subjective Subjective: CT Surg: Dr. Soto Pt S&E this AM. No complaints. CT dressings changed. Plan remains same, CT to be pulled prior to d/c. NAEO. CT output: 10cc/24hr. Objective - Vital Signs/Intake and Output Vital Signs (last 24 hours): Temp Pulse Resp BP Pulse Ox 98.2 F 83 17 142/63 100 08/20/16 04:00 08/20/16 05:00 08/20/16 05:00 08/20/16 04:56 08/19/16 20:34 Intake and Output: 08/20/16 08/20/16 06:59 18:59 Intake Total 650 Output Total 20 Balance 630 - Medications Medications: Current Medications Acetaminophen (Tylenol 650mg/20.3ml Solution Ud) 650 mg PO Q4 PRN PRN Reason: pain Last Admin: 08/14/16 22:05 Dose: 650 mg Aspirin (Aspirin Chewable) 81 mg PO DAILY [facility] Last Admin: 08/19/16 11:00 Dose: 81 mg Epoetin Sly (Procrit) 10,000 unit IV MWF [facility] Last Admin: 08/19/16 12:32 Dose: 10,000 unit Cefepime HCl (Maxipime Iv 1 Gm Premix) 50 mls @ 100 mls/hr IVPB DAILY [facility] Last Admin: 08/19/16 14:47 Dose: 100 mls/hr Insulin Human Regular (Novolin R) 0 unit SC ACHS [facility] PRN Reason: Protocol Last Admin: 08/19/16 21:36 Dose: Not Given Levothyroxine Sodium (Synthroid) 125 mcg PO DAILY@0630 [facility] Last Admin: 08/20/16 05:42 Dose: 125 mcg Lidocaine HCl (Lidocaine 2% Viscous) 15 ml PO TID PRN PRN Reason: Pain, Mild (1-3) Last Admin: 08/15/16 20:01 Dose: 15 ml Metoprolol Succinate (Toprol Xl) 25 mg PO DAILY [facility] Last Admin: 08/19/16 11:02 Dose: Not Given Pantoprazole Sodium (Protonix Inj) 40 mg IVP DAILY [facility] Last Admin: 08/19/16 11:00 Dose: 40 mg Rosuvastatin Calcium (Crestor) 10 mg PO HS [facility] Last Admin: 08/19/16 21:42 Dose: 10 mg Saccharomyces Boulardii (Florastor) 250 mg PO BID [facility] Last Admin: 08/19/16 17:52 Dose: 250 mg - Labs Labs: 08/20/16 06:06 08/20/16 06:06 PT 14.7 SECONDS (9.7-12.2) H 08/12/16 06:00 INR 1.3 08/12/16 06:00 APTT 40 SECONDS (21-34) H 08/12/16 06:00 - Constitutional Appears: No Acute Distress - ENT Exam ENT Exam: Mucous Membranes Moist - Cardiovascular Exam Cardiovascular Exam: +S1, +S2 - GI/Abdominal Exam GI & Abdominal Exam: Soft - Neurological Exam Neurological Exam: Alert, Awake
--- NOTE | 2016-08-20 09:05 | CP.PCM.CON ---
History of Present Illness - History of Present Illness History of Present Illness: Vascular Surgery Consult Re: Difficulty in cannulation, narrowing of graft, high venous pressure HPI: 75F presented to the ED on 08/08 with hypoglycemia, altered mental status, and recurrent right pleural effusion. Echo 69% EF. Chest tube in place by CT surgery. Vascular consulted for difficulty in cannulation and narrowing of AV graft, high venous pressures. Last HD on Monday. She has had issues with the shunt functioning in the past. No current complaints. PMH: DM, HTN, ESRD on dialysis (MWF), CAD, hypothyroidism PSH: CABG, AV Shunt (left), stent placements x3 All: Sulfa Meds: See MAR Past Patient History - Infectious Disease Hx of Infectious Diseases: None - Past Medical History & Family History Past Medical History?: Yes - Past Social History Smoking Status: Never Smoked - CARDIAC Hx Cardiac Disorders: Yes Hx Congestive Heart Failure: Yes Hx Hypertension: Yes Hx Peripheral Edema: Yes - PULMONARY Hx Respiratory Disorders: Yes Other/Comment: hx of thoracentesis - NEUROLOGICAL Hx Neurological Disorder: Yes Other/Comment: [place] - HEENT Hx HEENT Problems: Yes Other/Comment: hard of hearing - RENAL Hx Chronic Kidney Disease: Yes Hx Dialysis: Yes Type of Dialysis Access: Hemodialysis Date of Last Dialysis Treatment: 08/05/16 - ENDOCRINE/METABOLIC Hx Hypothyroidism: Yes - HEMATOLOGICAL/ONCOLOGICAL Hx Blood Disorders: No - INTEGUMENTARY Hx Dermatological Problems: No - MUSCULOSKELETAL/RHEUMATOLOGICAL Hx Musculoskeletal Disorders: No Hx Falls: No - GASTROINTESTINAL Hx Gastrointestinal Disorders: No Hx Crohn's Disease: No Hx Diverticulitis: No - GENITOURINARY/GYNECOLOGICAL Hx Genitourinary Disorders: Yes Hx Incontinence: Yes Hx Urinary Tract Infection: Yes (2006) Other/Comment: ureteral stent placed 06/2015 - PSYCHIATRIC Hx Psychophysiologic Disorder: No Hx Substance Use: No - SURGICAL HISTORY Hx Surgeries: Yes Hx Coronary Artery Bypass Graft: Yes (2001) Hx Coronary Stent: Yes (x3 in 2006) - ANESTHESIA Hx Anesthesia: Yes Hx Anesthesia Reactions: No Hx Malignant Hyperthermia: No Has any member of the family had a problem w/ anesthesia?: No Meds Allergies/Adverse Reactions: Allergies Allergy/AdvReac Type Severity Reaction Status Date / Time Sulfa (Sulfonamide Allergy RASH Verified 05/27/16 10:31 Antibiotics) - Medications Medications: Current Medications Acetaminophen (Tylenol 650mg/20.3ml Solution Ud) 650 mg PO Q4 PRN PRN Reason: pain Last Admin: 08/14/16 22:05 Dose: 650 mg Aspirin (Aspirin Chewable) 81 mg PO DAILY [facility] Last Admin: 08/19/16 11:00 Dose: 81 mg Epoetin Sly (Procrit) 10,000 unit IV MWF [facility] Last Admin: 08/19/16 12:32 Dose: 10,000 unit Cefepime HCl (Maxipime Iv 1 Gm Premix) 50 mls @ 100 mls/hr IVPB DAILY [facility] Last Admin: 08/19/16 14:47 Dose: 100 mls/hr Insulin Human Regular (Novolin R) 0 unit SC ACHS [facility] PRN Reason: Protocol Last Admin: 08/19/16 21:36 Dose: Not Given Levothyroxine Sodium (Synthroid) 125 mcg PO DAILY@0630 [facility] Last Admin: 08/20/16 05:42 Dose: 125 mcg Lidocaine HCl (Lidocaine 2% Viscous) 15 ml PO TID PRN PRN Reason: Pain, Mild (1-3) Last Admin: 08/15/16 20:01 Dose: 15 ml Metoprolol Succinate (Toprol Xl) 25 mg PO DAILY [facility] Last Admin: 08/19/16 11:02 Dose: Not Given Pantoprazole Sodium (Protonix Inj) 40 mg IVP DAILY [facility] Last Admin: 08/19/16 11:00 Dose: 40 mg Rosuvastatin Calcium (Crestor) 10 mg PO HS [facility] Last Admin: 08/19/16 21:42 Dose: 10 mg Saccharomyces Boulardii (Florastor) 250 mg PO BID [facility] Last Admin: 08/19/16 17:52 Dose: 250 mg Physical Exam - Constitutional Appears: Non-toxic, No Acute Distress, Chronically Ill - Head Exam Head Exam: ATRAUMATIC, NORMOCEPHALIC - Eye Exam Eye Exam: EOMI. absent: Scleral icterus - ENT Exam ENT Exam: Mucous Membranes Moist Additional comments: trachea midline - Respiratory Exam Respiratory Exam: NORMAL BREATHING PATTERN. absent: Respiratory Distress Additional comments: CT in place with ~10cc drainage in 24 hours - Cardiovascular Exam Cardiovascular Exam: RRR, +S1, +S2 - GI/Abdominal Exam GI & Abdominal Exam: Soft. absent: Distended, Tenderness - Rectal Exam Rectal Exam: Deferred - Extremities Exam Extremities exam: Negative for: calf tenderness, pedal edema Additional comments: L heel dressing in place - Back Exam Back exam: absent: CVA tenderness (L), CVA tenderness (R) - Neurological Exam Neurological exam: Alert - Psychiatric Exam Psychiatric exam: Normal Affect, Normal Mood - Skin Skin Exam: Dry, Warm Results - Vital Signs Recent Vital Signs: Last Vital Signs Temp 98.2 F 08/20/16 04:00 Pulse 83 08/20/16 05:00 Resp 17 08/20/16 05:00 BP 142/63 08/20/16 04:56 Pulse Ox 100 08/19/16 20:34 - Labs Result Diagrams: 08/20/16 06:06 08/20/16 06:06 Labs: Laboratory Results - last 24 hr 08/19/16 08/19/16 08/19/16 11:42 16:27 21:33 WBC RBC Hgb Hct MCV MCH MCHC RDW Plt Count MPV Neut % (Auto) Lymph % (Auto) [place] % (Auto) Eos % (Auto) Baso % (Auto) Neut # Lymph # [place] # Eos # Baso # Neutrophils % (Manual) Lymphocytes % (Manual) Monocytes % (Manual) Eosinophils % (Manual) Platelet Estimate Large Platelets Giant Platelets Polychromasia Hypochromasia (manual) Poikilocytosis (manual Anisocytosis (manual) Macrocytosis (manual) Tear Drop Cells Ovalocytes [place] Cells Sodium Potassium Chloride Carbon Dioxide Anion Gap BUN Creatinine Est GFR ( Amer) Est GFR (Non-Af Amer) POC Glucose (mg/dL) 216 H 219 H 155 H Random Glucose Calcium Phosphorus Magnesium Total Bilirubin AST ALT Alkaline Phosphatase Total Protein Albumin Globulin Albumin/Globulin Ratio 08/20/16 08/20/16 08/20/16 06:06 06:06 07:21 WBC 12.2 H RBC 3.37 L Hgb 10.6 L Hct 32.6 L MCV 96.5 MCH 31.3 H MCHC 32.4 L RDW 19.3 H Plt Count 155 MPV 9.4 Neut % (Auto) 81.6 H Lymph % (Auto) 5.4 L [place] % (Auto) 8.8 Eos % (Auto) 3.9 Baso % (Auto) 0.3 Neut # 9.9 H Lymph # 0.7 L [place] # 1.1 H Eos # 0.5 Baso # 0.0 Neutrophils % (Manual) 83 H Lymphocytes % (Manual) 8 L Monocytes % (Manual) 7 Eosinophils % (Manual) 2 Platelet Estimate Normal Large Platelets Present Giant Platelets Present Polychromasia Slight Hypochromasia (manual) Slight Poikilocytosis (manual Slight Anisocytosis (manual) Slight Macrocytosis (manual) Slight Tear Drop Cells Slight Ovalocytes Slight [place] Cells Slight Sodium 135 Potassium 3.9 Chloride 99 Carbon Dioxide 23 Anion Gap 17 BUN 39 H Creatinine 2.7 H Est GFR ( Amer) 21 Est GFR (Non-Af Amer) 17 POC Glucose (mg/dL) 149 H Random Glucose 130 H Calcium 7.6 L Phosphorus 3.3 Magnesium 1.9 Total Bilirubin 2.1 H AST 22 ALT 21 Alkaline Phosphatase 175 H Total Protein 6.5 Albumin 2.5 L Globulin 4.0 H Albumin/Globulin Ratio 0.6 L - Imaging and Cardiology Chest x-ray Status: Image reviewed by me, Pending (report) Assessment & Plan - Assessment and Plan (Free Text) Assessment: 75F with L AV shunt with difficult cannulation, narrowing, and high venous pressures Plan: No immediate surgical intervention. Will re evaluate Monday. Continue to monitor. D/W Dr. Heber Bojorquez PGY3
--- NOTE | 2016-08-20 09:42 | CP.PCM.PN ---
Subjective - Date & Time of Evaluation Date of Evaluation: 08/20/16 Time of Evaluation: 09:00 - Subjective Subjective: Patient seen and examined in the intensive care unit. Minimal drainage from chest tube Overnight confused Awake responsive in no respiratory distress Objective - Vital Signs/Intake and Output Vital Signs (last 24 hours): Temp Pulse Resp BP Pulse Ox 98 F 87 23 131/71 100 08/20/16 08:00 08/20/16 09:00 08/20/16 09:00 08/20/16 08:57 08/20/16 09:00 Intake and Output: 08/20/16 08/20/16 06:59 18:59 Intake Total 650 Output Total 20 Balance 630 - Medications Medications: Current Medications Acetaminophen (Tylenol 650mg/20.3ml Solution Ud) 650 mg PO Q4 PRN PRN Reason: pain Last Admin: 08/14/16 22:05 Dose: 650 mg Aspirin (Aspirin Chewable) 81 mg PO DAILY [facility] Last Admin: 08/19/16 11:00 Dose: 81 mg Epoetin Sly (Procrit) 10,000 unit IV MWF [facility] Last Admin: 08/19/16 12:32 Dose: 10,000 unit Cefepime HCl (Maxipime Iv 1 Gm Premix) 50 mls @ 100 mls/hr IVPB DAILY [facility] Last Admin: 08/19/16 14:47 Dose: 100 mls/hr Insulin Human Regular (Novolin R) 0 unit SC ACHS [facility] PRN Reason: Protocol Last Admin: 08/20/16 07:30 Dose: Not Given Levothyroxine Sodium (Synthroid) 125 mcg PO DAILY@0630 [facility] Last Admin: 08/20/16 05:42 Dose: 125 mcg Lidocaine HCl (Lidocaine 2% Viscous) 15 ml PO TID PRN PRN Reason: Pain, Mild (1-3) Last Admin: 08/15/16 20:01 Dose: 15 ml Metoprolol Succinate (Toprol Xl) 25 mg PO DAILY [facility] Last Admin: 08/19/16 11:02 Dose: Not Given Pantoprazole Sodium (Protonix Inj) 40 mg IVP DAILY [facility] Last Admin: 08/19/16 11:00 Dose: 40 mg Rosuvastatin Calcium (Crestor) 10 mg PO HS [facility] Last Admin: 08/19/16 21:42 Dose: 10 mg Saccharomyces Boulardii (Florastor) 250 mg PO BID [facility] Last Admin: 08/19/16 17:52 Dose: 250 mg - Labs Labs: 08/20/16 06:06 08/20/16 06:06 PT 14.7 SECONDS (9.7-12.2) H 08/12/16 06:00 INR 1.3 08/12/16 06:00 APTT 40 SECONDS (21-34) H 08/12/16 06:00 - Head Exam Head Exam: ATRAUMATIC, NORMOCEPHALIC - ENT Exam ENT Exam: Mucous Membranes Moist - Neck Exam Neck Exam: Normal Inspection - Respiratory Exam Respiratory Exam: Decreased Breath Sounds - Cardiovascular Exam Cardiovascular Exam: REGULAR RHYTHM - GI/Abdominal Exam GI & Abdominal Exam: Soft, Normal Bowel Sounds - Neurological Exam Neurological Exam: Alert Assessment and Plan (1) Hydropneumothorax Assessment & Plan: Chest tube to be removed once discharge planning in place. Continue hemodialysis and present management Status: Acute (2) ESRD (end stage renal disease) on dialysis Status: Chronic
[2016-08-20] MEDS: Saccharomyces Boulardi 250 mg Cap PO SCH ×2 (09:45→18:30)
[2016-08-20] MEDS: Metoprolol Succinate 25 mg XL Tab PO SCH (09:45)
[2016-08-20] MEDS: Cefepime IV 1 gm in Dextrose 50 ML IVPB SCH (09:46)
[2016-08-20] MEDS: Acetaminophen 650mg/20.3ml solution UD PO PRN (10:11)
--- NOTE | 2016-08-20 10:38 | CP.PCM.PN ---
Subjective - Date & Time of Evaluation Date of Evaluation: 08/20/16 Time of Evaluation: 10:35 - Subjective Subjective: feels ok no SOB pain in left heel had HD yesterday ROS- as per HPI, other than that 10 point ROS negative Objective - Vital Signs/Intake and Output Vital Signs (last 24 hours): Temp Pulse Resp BP Pulse Ox 98 F 87 23 131/71 100 08/20/16 08:00 08/20/16 09:00 08/20/16 09:00 08/20/16 08:57 08/20/16 09:00 Intake and Output: 08/20/16 08/20/16 06:59 18:59 Intake Total 650 Output Total 20 Balance 630 - Medications Medications: Current Medications Acetaminophen (Tylenol 650mg/20.3ml Solution Ud) 650 mg PO Q4 PRN PRN Reason: pain Last Admin: 08/20/16 10:11 Dose: 650 mg Aspirin (Aspirin Chewable) 81 mg PO DAILY [facility] Last Admin: 08/20/16 09:45 Dose: 81 mg Epoetin Sly (Procrit) 10,000 unit IV MWF [facility] Last Admin: 08/19/16 12:32 Dose: 10,000 unit Cefepime HCl (Maxipime Iv 1 Gm Premix) 50 mls @ 100 mls/hr IVPB DAILY [facility] Last Admin: 08/20/16 09:46 Dose: 100 mls/hr Insulin Human Regular (Novolin R) 0 unit SC ACHS [facility] PRN Reason: Protocol Last Admin: 08/20/16 07:30 Dose: Not Given Levothyroxine Sodium (Synthroid) 125 mcg PO DAILY@0630 [facility] Last Admin: 08/20/16 05:42 Dose: 125 mcg Lidocaine HCl (Lidocaine 2% Viscous) 15 ml PO TID PRN PRN Reason: Pain, Mild (1-3) Last Admin: 08/15/16 20:01 Dose: 15 ml Metoprolol Succinate (Toprol Xl) 25 mg PO DAILY [facility] Last Admin: 08/20/16 09:45 Dose: 25 mg Pantoprazole Sodium (Protonix Inj) 40 mg IVP DAILY [facility] Last Admin: 08/20/16 09:45 Dose: 40 mg Rosuvastatin Calcium (Crestor) 10 mg PO HS [facility] Last Admin: 08/19/16 21:42 Dose: 10 mg Saccharomyces Boulardii (Florastor) 250 mg PO BID [facility] Last Admin: 08/20/16 09:45 Dose: 250 mg - Labs Labs: 08/20/16 06:06 08/20/16 06:06 PT 14.7 SECONDS (9.7-12.2) H 08/12/16 06:00 INR 1.3 08/12/16 06:00 APTT 40 SECONDS (21-34) H 08/12/16 06:00 - Constitutional Appears: Well, Non-toxic - Head Exam Head Exam: ATRAUMATIC, NORMOCEPHALIC - Eye Exam Eye Exam: EOMI, Normal appearance - ENT Exam ENT Exam: Mucous Membranes Moist - Respiratory Exam Respiratory Exam: Clear to Ausculation Bilateral. absent: Rhonchi, Wheezes - Cardiovascular Exam Cardiovascular Exam: REGULAR RHYTHM, +S1, +S2 - GI/Abdominal Exam GI & Abdominal Exam: Soft. absent: Tenderness - Extremities Exam Extremities Exam: absent: Pedal Edema Additional comments: skin breakdown on left heel - Neurological Exam Neurological Exam: Alert, Awake, Oriented x3 - Psychiatric Exam Psychiatric exam: Normal Affect, Normal Mood - Skin Skin Exam: Dry, Warm Assessment and Plan (1) Foot ulcer, left Status: Acute (2) Anemia Status: Chronic (3) ESRD (end stage renal disease) on dialysis Status: Chronic (4) Diabetes mellitus Status: Acute (5) Pleural effusion Status: Acute (6) S/P thoracentesis Status: Acute (7) CHF (congestive heart failure) Status: Chronic - Assessment and Plan (Free Text) Plan: stable fluid status much improved HD on monday wound care chest tube as per CT surgery
--- NOTE | 2016-08-20 10:44 | RAD ---
HISTORY: chest tube COMPARISON: Chest x-ray performed 08/19/16 TECHNIQUE: Chest, one view. FINDINGS: Right-sided chest tube. External wires and leads obscure evaluation of the underlying parenchyma. LUNGS: Persistent moderate loculated right pleural effusion with consolidative changes in the right mid to lower lung zone. Biapical pleural thickening with upper lobe granulomatous changes. Patchy increased markings at the left lung base. No definite pneumothorax. Please note that chest x-ray has limited sensitivity for the detection of pulmonary masses. CARDIOVASCULAR: Median sternotomy wires with evidence of CABG. Cardiomegaly. Atherosclerotic calcifications of the aorta. OSSEOUS STRUCTURES: Degenerative changes. VISUALIZED UPPER ABDOMEN: Unremarkable. OTHER FINDINGS: None. IMPRESSION: Overall, no significant interval change appreciated.
--- NOTE | 2016-08-20 10:49 | CP.PCM.PN ---
<Mindy Talamantes - Last Filed: 08/20/16 13:08> Subjective - Date & Time of Evaluation Date of Evaluation: 08/20/16 Time of Evaluation: 08:00 - Subjective Subjective: Medicine Progress Note- Dr. Han's Service: Patient seen and examined this AM. Patient reports she has no chest pain or SOB. She has discomfort where chest tube is inserted. Denies fevers, chills, nausea, vomiting. She is thirsty this morning and asking for water. She did not eat her breakfast. No acute events overnight. Objective - Vital Signs/Intake and Output Vital Signs (last 24 hours): Temp Pulse Resp BP Pulse Ox 98 F 87 23 131/71 100 08/20/16 08:00 08/20/16 09:00 08/20/16 09:00 08/20/16 08:57 08/20/16 09:00 Intake and Output: 08/20/16 08/20/16 06:59 18:59 Intake Total 650 Output Total 20 Balance 630 - Medications Medications: Current Medications Acetaminophen (Tylenol 650mg/20.3ml Solution Ud) 650 mg PO Q4 PRN PRN Reason: pain Last Admin: 08/20/16 10:11 Dose: 650 mg Aspirin (Aspirin Chewable) 81 mg PO DAILY [facility] Last Admin: 08/20/16 09:45 Dose: 81 mg Epoetin Sly (Procrit) 10,000 unit IV MWF [facility] Last Admin: 08/19/16 12:32 Dose: 10,000 unit Cefepime HCl (Maxipime Iv 1 Gm Premix) 50 mls @ 100 mls/hr IVPB DAILY [facility] Last Admin: 08/20/16 09:46 Dose: 100 mls/hr Insulin Human Regular (Novolin R) 0 unit SC ACHS [facility] PRN Reason: Protocol Last Admin: 08/20/16 07:30 Dose: Not Given Levothyroxine Sodium (Synthroid) 125 mcg PO DAILY@0630 [facility] Last Admin: 08/20/16 05:42 Dose: 125 mcg Lidocaine HCl (Lidocaine 2% Viscous) 15 ml PO TID PRN PRN Reason: Pain, Mild (1-3) Last Admin: 08/15/16 20:01 Dose: 15 ml Metoprolol Succinate (Toprol Xl) 25 mg PO DAILY [facility] Last Admin: 08/20/16 09:45 Dose: 25 mg Pantoprazole Sodium (Protonix Inj) 40 mg IVP DAILY [facility] Last Admin: 08/20/16 09:45 Dose: 40 mg Rosuvastatin Calcium (Crestor) 10 mg PO HS [facility] Last Admin: 08/19/16 21:42 Dose: 10 mg Saccharomyces Boulardii (Florastor) 250 mg PO BID [facility] Last Admin: 08/20/16 09:45 Dose: 250 mg - Labs Labs: 08/20/16 06:06 08/20/16 06:06 PT 14.7 SECONDS (9.7-12.2) H 08/12/16 06:00 INR 1.3 08/12/16 06:00 APTT 40 SECONDS (21-34) H 08/12/16 06:00 - Constitutional Appears: No Acute Distress, Chronically Ill - Head Exam Head Exam: ATRAUMATIC, NORMOCEPHALIC - Eye Exam Eye Exam: EOMI, Normal appearance - ENT Exam ENT Exam: Mucous Membranes Dry - Respiratory Exam Respiratory Exam: Decreased Breath Sounds, Clear to Ausculation Bilateral, NORMAL BREATHING PATTERN Additional comments: +right sided chest tube - Cardiovascular Exam Cardiovascular Exam: REGULAR RHYTHM - GI/Abdominal Exam GI & Abdominal Exam: Soft, Tenderness (LLQ guarding). absent: Distended - Extremities Exam Extremities Exam: Full ROM, Normal Inspection - Back Exam Back Exam: NORMAL INSPECTION - Neurological Exam Neurological Exam: Alert, Awake, Oriented x3 - Psychiatric Exam Psychiatric exam: Normal Affect, Normal Mood - Skin Skin Exam: Normal Color, Warm Assessment and Plan - Assessment and Plan (Free Text) Assessment: (1) Hydropneumothorax Assessment & Plan: Cardiothoracic surgery - Dr. Soto S/P anterior chest tube insertion POD #7. CT Chest- revealed right sided hydropneumothorax. Patient awake, alert, comfortable, in no respiratory distress. Chest tube to be removed once discharge planning in place. Daughter deciding on [facility] options. F/U CXR in the AM F/U with case management. Management per surgery Status: Acute (2) Pleural effusion Assessment & Plan: Right sided recurrent pleural effusions Dr. Walker consulted for thoracentesis - help appreciated - 1800mL was removed f/u CXR in the AM Status: Acute (3) CHF (congestive heart failure) Assessment & Plan: Hx of CHF Hx CAD: On ASA, Crestor, Toprol Echo LVEF 69%, Refer to report Status: Chronic (4) ESRD (end stage renal disease) on dialysis Assessment & Plan: ESRD on HD MWF Continued Elizabeth Mcfarland - help appreciated Status: Chronic (5) Anemia Assessment & Plan: Patient has been transfused total of 2 PRBCs during admission Current 10.6 Monitor and transfuse as needed. Status: Chronic (6) Foot ulcer, left Assessment & Plan: Afebrile, no white count Cefepime Q12H- Day 11 No growth on urine or blood cultures Wound care recommendations 08/17/16: * MEDIHONEY TO LEFT HEEL COVERED WITH THICK BULKY DRESSING TO BE DONE DAILY. * MUST KEEP PREVALON BOOTS ON AT ALL TIMES TO OPTIMIZE OFFLOADING OF HEELS. Status: Acute (7) Hypertension Assessment & Plan: on Toprol XL 25mg PO daily Status: Acute (8) Hypothyroidism Assessment & Plan: Synthroid 125 mcg PO daily Continue to monitor TSH. Status: Acute (9) Thrombocytopenia Assessment & Plan: Improved (10) Prophylactic measure Assessment & Plan: -GI: Pepcid 20 mg PO daily. PPI contraindicated due to thrombocytopenia. -DVT: SCDs. VTE contraindicated due to thrombocytopenia -Heart Healthy Diet- Encourage home food intake as well; Calorie count -PT/OT- F/U -Case management referral for [facility], homecare, visiting nurse. Daughter to decide on [facility] options. F/U with case management. Status: Acute <Felix Han H - Last Filed: 08/20/16 13:21> Objective - Vital Signs/Intake and Output Vital Signs (last 24 hours): Temp Pulse Resp BP Pulse Ox 97.2 F L 74 16 117/54 L 100 08/20/16 12:00 08/20/16 12:00 08/20/16 12:00 08/20/16 12:00 08/20/16 12:00 Intake and Output: 08/20/16 08/20/16 06:59 18:59 Intake Total 650 410 Output Total 20 Balance 630 410 - Medications Medications: Current Medications Acetaminophen (Tylenol 650mg/20.3ml Solution Ud) 650 mg PO Q4 PRN PRN Reason: pain Last Admin: 08/20/16 10:11 Dose: 650 mg Aspirin (Aspirin Chewable) 81 mg PO DAILY [facility] Last Admin: 08/20/16 09:45 Dose: 81 mg Epoetin Sly (Procrit) 10,000 unit IV MWF [facility] Last Admin: 08/19/16 12:32 Dose: 10,000 unit Famotidine (Pepcid) 20 mg PO DAILY [facility] Cefepime HCl (Maxipime Iv 1 Gm Premix) 50 mls @ 100 mls/hr IVPB DAILY [facility] Last Admin: 08/20/16 09:46 Dose: 100 mls/hr Insulin Human Regular (Novolin R) 0 unit SC ACHS [facility] PRN Reason: Protocol Last Admin: 08/20/16 12:08 Dose: 2 unit Levothyroxine Sodium (Synthroid) 125 mcg PO DAILY@0630 [facility] Last Admin: 08/20/16 05:42 Dose: 125 mcg Lidocaine HCl (Lidocaine 2% Viscous) 15 ml PO TID PRN PRN Reason: Pain, Mild (1-3) Last Admin: 08/15/16 20:01 Dose: 15 ml Metoprolol Succinate (Toprol Xl) 25 mg PO DAILY [facility] Last Admin: 08/20/16 09:45 Dose: 25 mg Rosuvastatin Calcium (Crestor) 10 mg PO HS [facility] Last Admin: 08/19/16 21:42 Dose: 10 mg Saccharomyces Boulardii (Florastor) 250 mg PO BID [facility] Last Admin: 08/20/16 09:45 Dose: 250 mg - Labs Labs: 08/20/16 06:06 08/20/16 06:06 PT 14.7 SECONDS (9.7-12.2) H 08/12/16 06:00 INR 1.3 08/12/16 06:00 APTT 40 SECONDS (21-34) H 08/12/16 06:00 Attending/Attestation - Attestation I have personally seen and examined this patient.: Yes I have fully participated in the care of the patient.: Yes I have reviewed all pertinent clinical information, including history, physical exam and plan: Yes Notes (Text): Medical Attending: Patient was seen and examined by me. Agree with the above note by the resident The patient was with family at bedside. At this time the patient still has chest tube, POD 7. Not acutely short of breath when we saw patient. She was calm and not in any distress. Still has some drainage from the chest tube. The repeat CXRAY still showing rather large amount at this time. Continue with IV abx, continues with HD. Also need to monitor her Hgb as she has had transfusion in the past Felix Han
[2016-08-21] MEDS: Levothyroxine 125 MCG TAB PO SCH (06:18)
[2016-08-21 06:58] LABS: BASO # 0.2 K/uL (0.0-0.2); BASO % 1.4 % (0.0-2.0); EOS # 0.6 K/uL (0.0-0.7); EOS % 4.5 % (0.0-4.0); HEMATOCRIT 32.5 % (34.0-47.0); LYMPH # 0.9 K/uL (1.0-4.3); LYMPH % 6.8 % (20.0-40.0); MEAN CELL VOLUME 96.1 fL (81.0-99.0); MEAN CORPUSCULAR HEMOGLOBIN 31.1 pg (27.0-31.0); MEAN CORPUSCULAR HGB CONC 32.3 g/dL (33.0-37.0); MONO # 1.2 K/uL (0.0-0.8); MONO % 8.9 % (0.0-10.0); NRBC % 0.1 % (0.0-2.0); PLATELET COUNT 184 K/uL (130-400); RED CELL DISTRIBUTION WIDTH 20.1 % (11.5-14.5); WHITE BLOOD COUNT 13.4 K/uL (4.8-10.8)
[2016-08-21 07:07] LABS: POTASSIUM 4.3 mmol/L (3.6-5.2)
[2016-08-21 07:10] LABS: ALB/GLOB RATIO 0.7 (1.0-2.1); CALCIUM 7.7 mg/dl (8.6-10.4); PHOSPHOROUS 3.8 mg/dL (2.5-4.5); TOTAL PROTEIN 6.5 g/dL (6.3-8.3)
[2016-08-21] MEDS: (Novolin R) Insulin Human Regular 100 units/ml vial SC SCH ×4 (07:30→21:35)
[2016-08-21 08:42] LABS: EOSINOPHIL 3 % (0-4); REACTIVE LYMPHOCYTES 1 % (0-0); TOTAL CELLS COUNTED 100
[2016-08-21 08:43] LABS: NEUTROPHIL 79 % (50-75)
[2016-08-21 08:45] LABS: LARGE PLATELETS PRESENT
[2016-08-21] MEDS: Metoprolol Succinate 25 mg XL Tab PO SCH (09:35)
[2016-08-21] MEDS: Cefepime IV 1 gm in Dextrose 50 ML IVPB SCH (09:35)
[2016-08-21] MEDS: Saccharomyces Boulardi 250 mg Cap PO SCH ×2 (09:35→17:32)
[2016-08-21] MEDS: Acetaminophen 650mg/20.3ml solution UD PO PRN (09:48)
--- NOTE | 2016-08-21 09:55 | CP.PCM.PN ---
Subjective - Date & Time of Evaluation Date of Evaluation: 08/21/16 Time of Evaluation: 09:53 - Subjective Subjective: Thoracic Surgery - Dr. Soto Pt S&E. DEVI. Pt denies any complaints, sitting up in bed eating. Right chest tube to wall suction w/ 80cc serosanguinous drainage/24hrs, no airleak. Dressing C/D/I. Objective - Vital Signs/Intake and Output Vital Signs (last 24 hours): Temp Pulse Resp BP Pulse Ox 98 F 78 20 122/55 L 100 08/21/16 08:00 08/21/16 08:00 08/21/16 08:00 08/21/16 08:00 08/21/16 08:00 Intake and Output: 08/21/16 08/21/16 06:59 18:59 Intake Total 650 Output Total 40 Balance 610 - Medications Medications: Current Medications Acetaminophen (Tylenol 650mg/20.3ml Solution Ud) 650 mg PO Q4 PRN PRN Reason: pain Last Admin: 08/21/16 09:48 Dose: 650 mg Aspirin (Aspirin Chewable) 81 mg PO DAILY [facility] Last Admin: 08/21/16 09:35 Dose: 81 mg Epoetin Sly (Procrit) 10,000 unit IV MWF [facility] Last Admin: 08/19/16 12:32 Dose: 10,000 unit Famotidine (Pepcid) 20 mg PO DAILY [facility] Last Admin: 08/21/16 09:35 Dose: 20 mg Cefepime HCl (Maxipime Iv 1 Gm Premix) 50 mls @ 100 mls/hr IVPB DAILY [facility] Last Admin: 08/21/16 09:35 Dose: 100 mls/hr Insulin Human Regular (Novolin R) 0 unit SC ACHS [facility] PRN Reason: Protocol Last Admin: 08/20/16 21:00 Dose: Not Given Levothyroxine Sodium (Synthroid) 125 mcg PO DAILY@0630 [facility] Last Admin: 08/21/16 06:18 Dose: 125 mcg Lidocaine HCl (Lidocaine 2% Viscous) 15 ml PO TID PRN PRN Reason: Pain, Mild (1-3) Last Admin: 08/15/16 20:01 Dose: 15 ml Metoprolol Succinate (Toprol Xl) 25 mg PO DAILY [facility] Last Admin: 08/21/16 09:35 Dose: 25 mg Rosuvastatin Calcium (Crestor) 10 mg PO HS [facility] Last Admin: 08/20/16 21:19 Dose: 10 mg Saccharomyces Boulardii (Florastor) 250 mg PO BID [facility] Last Admin: 08/21/16 09:35 Dose: 250 mg - Labs Labs: 08/21/16 06:53 08/21/16 06:53 PT 14.7 SECONDS (9.7-12.2) H 08/12/16 06:00 INR 1.3 08/12/16 06:00 APTT 40 SECONDS (21-34) H 08/12/16 06:00 - Constitutional Appears: No Acute Distress - Head Exam Head Exam: ATRAUMATIC, NORMAL INSPECTION, NORMOCEPHALIC - Eye Exam Eye Exam: Normal appearance - Respiratory Exam Respiratory Exam: NORMAL BREATHING PATTERN. absent: Respiratory Distress Additional comments: R CT to wall suction, 80cc serosang. drainage/24hrs, dressing C/d/I - Neurological Exam Neurological Exam: Alert, Awake - Psychiatric Exam Psychiatric exam: Normal Affect, Normal Mood - Skin Skin Exam: Dry, Intact Assessment and Plan - Assessment and Plan (Free Text) Assessment: 75yo F with hydropneumothorax after thoracentesis, now s/p Right chest tube placement POD#8 -CXR stable -CT output 80/24hrs -Continue to suction, will remove prior to DC -DW Dr Brittany Waldron PGY2
--- NOTE | 2016-08-21 12:09 | RAD ---
HISTORY: monitor pleural effusion COMPARISON: Chest x-ray performed 08/20/16 TECHNIQUE: Chest, one view. FINDINGS: External wires and leads obscure evaluation of the underlying parenchyma. LUNGS: Right-sided chest tube. Persistent medial right upper lobe opacity. Moderate loculated right pleural effusion with consolidative changes in the right mid to lower lung zone. Biapical pleural thickening with upper lobe granulomatous changes. Mild left basilar atelectasis. No definite pneumothorax Please note that chest x-ray has limited sensitivity for the detection of pulmonary masses. CARDIOVASCULAR: Median sternotomy wires with evidence of CABG. Cardiomegaly. Dense atherosclerotic calcifications of the aorta. OSSEOUS STRUCTURES: Degenerative changes of the spine and shoulders. Acromioclavicular arthropathy. VISUALIZED UPPER ABDOMEN: Unremarkable. OTHER FINDINGS: Left axillary vascular stent. IMPRESSION: Overall, no significant interval change appreciated. Finding as above.
[2016-08-21] MEDS: Azithromycin 500 MG in Sodium Chloride 0.9% 250 ML IVPB SCH (12:42)
--- NOTE | 2016-08-21 14:28 | CP.PCM.PN ---
<Mindy Talamantes - Last Filed: 08/21/16 14:22> Subjective - Date & Time of Evaluation Date of Evaluation: 08/21/16 Time of Evaluation: 08:00 - Subjective Subjective: Medicine Progress Note- Dr. Estrada's Service: Patient seen and examined at bedside this AM. Patient with low appetite and encouraged to consume her breakfast. She has R chest tube in place right chest tube in place and to wall suction. She denies chest pain, SOB, fevers, chills, chest pain, nausea, vomiting, diarrhea, constipation. She has no other complaints this AM. at bedside. Objective - Vital Signs/Intake and Output Vital Signs (last 24 hours): Temp Pulse Resp BP Pulse Ox 97.9 F 70 15 116/50 L 100 08/21/16 12:00 08/21/16 12:00 08/21/16 12:00 08/21/16 12:43 08/21/16 12:00 Intake and Output: 08/21/16 08/21/16 06:59 18:59 Intake Total 650 Output Total 40 Balance 610 - Medications Medications: Current Medications Acetaminophen (Tylenol 650mg/20.3ml Solution Ud) 650 mg PO Q4 PRN PRN Reason: pain Last Admin: 08/21/16 09:48 Dose: 650 mg Aspirin (Aspirin Chewable) 81 mg PO DAILY [facility] Last Admin: 08/21/16 09:35 Dose: 81 mg Epoetin Sly (Procrit) 10,000 unit IV MWF [facility] Last Admin: 08/19/16 12:32 Dose: 10,000 unit Famotidine (Pepcid) 20 mg PO DAILY [facility] Last Admin: 08/21/16 09:35 Dose: 20 mg Furosemide (Lasix) 40 mg PO DAILY [facility] Last Admin: 08/21/16 12:43 Dose: 40 mg Cefepime HCl (Maxipime Iv 1 Gm Premix) 50 mls @ 100 mls/hr IVPB DAILY [facility] Last Admin: 08/21/16 09:35 Dose: 100 mls/hr Azithromycin 500 mg/ Sodium (Chloride) 250 mls @ 250 mls/hr IVPB DAILY [facility] Last Admin: 08/21/16 12:42 Dose: 250 mls/hr Insulin Human Regular (Novolin R) 0 unit SC ACHS [facility] PRN Reason: Protocol Last Admin: 08/21/16 11:30 Dose: Not Given Levothyroxine Sodium (Synthroid) 125 mcg PO DAILY@0630 [facility] Last Admin: 08/21/16 06:18 Dose: 125 mcg Lidocaine HCl (Lidocaine 2% Viscous) 15 ml PO TID PRN PRN Reason: Pain, Mild (1-3) Last Admin: 08/15/16 20:01 Dose: 15 ml Metoprolol Succinate (Toprol Xl) 25 mg PO DAILY [facility] Last Admin: 08/21/16 09:35 Dose: 25 mg Rosuvastatin Calcium (Crestor) 10 mg PO HS [facility] Last Admin: 08/20/16 21:19 Dose: 10 mg Saccharomyces Boulardii (Florastor) 250 mg PO BID [facility] Last Admin: 08/21/16 09:35 Dose: 250 mg - Labs Labs: 08/21/16 06:53 08/21/16 06:53 PT 14.7 SECONDS (9.7-12.2) H 08/12/16 06:00 INR 1.3 08/12/16 06:00 APTT 40 SECONDS (21-34) H 08/12/16 06:00 - Constitutional Appears: No Acute Distress, Cachectic, Chronically Ill - Head Exam Head Exam: NORMAL INSPECTION, NORMOCEPHALIC - Eye Exam Eye Exam: EOMI, Normal appearance - ENT Exam ENT Exam: Mucous Membranes Dry - Neck Exam Neck Exam: Full ROM, Normal Inspection - Respiratory Exam Respiratory Exam: NORMAL BREATHING PATTERN Additional comments: + coarse breath sounds - Cardiovascular Exam Cardiovascular Exam: REGULAR RHYTHM, +S1, +S2 - GI/Abdominal Exam GI & Abdominal Exam: Soft. absent: Distended, Tenderness - Extremities Exam Extremities Exam: absent: Pedal Edema, Tenderness Additional comments: +air boots on - Neurological Exam Neurological Exam: Alert, Awake, Oriented x3 - Psychiatric Exam Psychiatric exam: Normal Affect, Normal Mood - Skin Skin Exam: Normal Color, Warm Assessment and Plan - Assessment and Plan (Free Text) Assessment: (1) Hydropneumothorax Assessment & Plan: Cardiothoracic surgery - Dr. Soto S/P anterior chest tube insertion POD #8. CT Chest- revealed right sided hydropneumothorax. Patient awake, alert, comfortable, in no respiratory distress. Chest tube to be removed once discharge planning in place. Daughter deciding on [facility] options. Chest tube management per surgery. CXR this AM shows no change. CXR 08/20/16: Right-sided chest tube. Persistent medial right upper lobe opacity. Moderate loculated right pleural effusion with consolidative changes in the right mid to lower lung zone. Biapical pleural thickening with upper lobe granulomatous changes. Mild left basilar atelectasis. No definite pneumothorax F/U with case management. Status: Acute (2) Pleural effusion Assessment & Plan: Right sided recurrent pleural effusions Dr. Walker consulted for thoracentesis - help appreciated - 1800mL was removed CXR this AM shows no change. CXR 08/20/16: Right-sided chest tube. Persistent medial right upper lobe opacity. Moderate loculated right pleural effusion with consolidative changes in the right mid to lower lung zone. Biapical pleural thickening with upper lobe granulomatous changes. Mild left basilar atelectasis. No definite pneumothorax Start Lasix 40 mg PO daily Status: Acute (3) Leukocytosis Assessment & Plan: 13.4 this AM. Blood Cx negative Pleural fluid Cx negative Sputum Cx shows no AFB f/u CBC in the AM f/u Procalcitonin Start Azithromycin IVPB (4) CHF (congestive heart failure) Assessment & Plan: Hx of CHF Hx CAD: On ASA, Crestor, Toprol Echo LVEF 69%, Refer to report Status: Chronic (5) ESRD (end stage renal disease) on dialysis Assessment & Plan: ESRD on HD MWF Continued Elizabeth Mcfarland - help appreciated Status: Chronic (6) Anemia Assessment & Plan: Patient has been transfused total of 2 PRBCs during admission Current 10.6 Monitor and transfuse as needed. Status: Chronic (7) Foot ulcer, left Assessment & Plan: Afebrile, no white count Cefepime Q12H- Day 12 No growth on urine or blood cultures Wound care recommendations 08/17/16: * MEDIHONEY TO LEFT HEEL COVERED WITH THICK BULKY DRESSING TO BE DONE DAILY. * MUST KEEP PREVALON BOOTS ON AT ALL TIMES TO OPTIMIZE OFFLOADING OF HEELS. Status: Acute (8) Hypertension Assessment & Plan: on Toprol XL 25mg PO daily Status: Acute (9) Hypothyroidism Assessment & Plan: Synthroid 125 mcg PO daily Continue to monitor TSH. Status: Acute (10) Thrombocytopenia Assessment & Plan: Improved. 184 this AM (11) Prophylactic measure Assessment & Plan: -GI: Pepcid 20 mg PO daily. PPI contraindicated due to thrombocytopenia. -DVT: SCDs. VTE contraindicated due to thrombocytopenia -Heart Healthy Diet- Encourage home food intake as well; Calorie count -PT/OT- F/U -Case management referral for [facility], homecare, visiting nurse. Daughter to decide on [facility] options. F/U with case management. Status: Acute <Aileen Estrada V - Last Filed: 08/21/16 23:54> Objective - Vital Signs/Intake and Output Vital Signs (last 24 hours): Temp Pulse Resp BP Pulse Ox 97.4 F L 66 15 141/66 100 08/21/16 21:00 08/21/16 21:00 08/21/16 21:00 08/21/16 21:00 08/21/16 21:00 Intake and Output: 08/21/16 08/22/16 18:59 06:59 Intake Total 610 Balance 610 - Medications Medications: Current Medications Acetaminophen (Tylenol 650mg/20.3ml Solution Ud) 650 mg PO Q4 PRN PRN Reason: pain Last Admin: 08/21/16 09:48 Dose: 650 mg Aspirin (Aspirin Chewable) 81 mg PO DAILY [facility] Last Admin: 08/21/16 09:35 Dose: 81 mg Epoetin Sly (Procrit) 10,000 unit IV MWF [facility] Last Admin: 08/19/16 12:32 Dose: 10,000 unit Famotidine (Pepcid) 20 mg PO DAILY [facility] Last Admin: 08/21/16 09:35 Dose: 20 mg Furosemide (Lasix) 40 mg PO DAILY [facility] Last Admin: 08/21/16 12:43 Dose: 40 mg Cefepime HCl (Maxipime Iv 1 Gm Premix) 50 mls @ 100 mls/hr IVPB DAILY [facility] Last Admin: 08/21/16 09:35 Dose: 100 mls/hr Azithromycin 500 mg/ Sodium (Chloride) 250 mls @ 250 mls/hr IVPB DAILY [facility] Last Admin: 08/21/16 12:42 Dose: 250 mls/hr Insulin Human Regular (Novolin R) 0 unit SC ACHS [facility] PRN Reason: Protocol Last Admin: 08/21/16 21:35 Dose: Not Given Levothyroxine Sodium (Synthroid) 125 mcg PO DAILY@0630 [facility] Last Admin: 08/21/16 06:18 Dose: 125 mcg Lidocaine HCl (Lidocaine 2% Viscous) 15 ml PO TID PRN PRN Reason: Pain, Mild (1-3) Last Admin: 08/15/16 20:01 Dose: 15 ml Metoprolol Succinate (Toprol Xl) 25 mg PO DAILY [facility] Last Admin: 08/21/16 09:35 Dose: 25 mg Rosuvastatin Calcium (Crestor) 10 mg PO HS [facility] Last Admin: 08/21/16 21:51 Dose: 10 mg Saccharomyces Boulardii (Florastor) 250 mg PO BID [facility] Last Admin: 08/21/16 17:32 Dose: 250 mg - Labs Labs: 08/21/16 06:53 08/21/16 06:53 PT 14.7 SECONDS (9.7-12.2) H 08/12/16 06:00 INR 1.3 08/12/16 06:00 APTT 40 SECONDS (21-34) H 08/12/16 06:00 Attending/Attestation - Attestation I have personally seen and examined this patient.: Yes I have fully participated in the care of the patient.: Yes I have reviewed all pertinent clinical information, including history, physical exam and plan: Yes Notes (Text): Patient seen, examined, and case discussed with day-time resident. Patient seen in bed, more awake and alert. Patient has mild leukocytosis-->start Azithromcyin in addition to Cefepime to cover for hospital acquired pneumonia and follow-up procalcitonin which is normal Patient's chest xray today showed no interval change and has about 80 cc output from chest tube. Patient to have dialysis tomorrow. Patient will eat if its food from home, will not touch food from hospital. Will need to follow-up case management regarding discharge planning; daughter has made a request for rehab closer to home. Discharge planning to determine removal of chest tube.
[2016-08-22] MEDS: Levothyroxine 125 MCG TAB PO SCH (05:57)
[2016-08-22 06:49] LABS: POTASSIUM 4.7 mmol/L (3.6-5.2)
[2016-08-22 06:51] LABS: ALB/GLOB RATIO 0.6 (1.0-2.1); BILIRUBIN,TOTAL 2.1 mg/dL (0.2-1.3); TOTAL PROTEIN 6.8 g/dL (6.3-8.3)
[2016-08-22 06:51] LABS: BASO # 0.2 K/uL (0.0-0.2); BASO % 1.1 % (0.0-2.0); EOS # 0.4 K/uL (0.0-0.7); EOS % 2.9 % (0.0-4.0); HEMATOCRIT 34.1 % (34.0-47.0); LYMPH # 0.8 K/uL (1.0-4.3); LYMPH % 5.5 % (20.0-40.0); MEAN CELL VOLUME 96.2 fL (81.0-99.0); MEAN CORPUSCULAR HEMOGLOBIN 31.3 pg (27.0-31.0); MEAN CORPUSCULAR HGB CONC 32.6 g/dL (33.0-37.0); MEAN PLATELET VOLUME 9.4 fL (7.2-11.7); MONO # 1.2 K/uL (0.0-0.8); MONO % 8.8 % (0.0-10.0); NRBC % 0.1 % (0.0-2.0); PLATELET COUNT 223 K/uL (130-400); RED CELL DISTRIBUTION WIDTH 20.1 % (11.5-14.5); WHITE BLOOD COUNT 13.8 K/uL (4.8-10.8)
[2016-08-22 06:52] LABS: CALCIUM 7.1 mg/dl (8.6-10.4); MAGNESIUM 1.9 mg/dL (1.6-2.3)
--- NOTE | 2016-08-22 07:29 | OP ---
PROCEDURE DATE: 08/12/2016 PREOPERATIVE DIAGNOSES: 1. Right hydropneumolthorax. 2. End-stage renal failure on hemodialysis. 3. Atelectasis of lung. 4. Shortness of breath. POSTOPERATIVE DIAGNOSES: 1. Right hemopneumothorax. 2. Atelectasis of lung. 3. Fibrothorax. 4. End-stage renal disease on hemodialysis. OPERATIVE PROCEDURES: 1. Exploration of right chest via limited lateral chest incision. 2. Exploration of right chest via limited upper anterior chest incision. 3. Insertion of chest tube, via anterior chest incision. ANESTHESIA: IV sedation plus local. SURGEON: Dr. Soto. SYRUP MAKER: Dr. Beard. OPERATIVE FINDINGS: Initial attempt to insert chest tube through right fifth intercostal space in mid axillary line failed because of extensive adhesions and fibrothorax. Therefore chest tube was entered through 3rd intercostal space and mid clavicular line, right. OPERATIVE PROCEDURE: The patient was taken to operating room where under satisfactory IV sedation, the patient was placed supine with the right side of the chest elevated at approximately 30 degrees. Next, the operative field was prepared in a sterile fashion. Initially through a limited incision in the right lateral chest wall; this incision was deepened into the fifth intercostal space, and fifth intercostal space was opened using blunt finger dissection. It was soon discovered that it was technically impossible to enter the pleural cavity through via this approach because of thick pleura and adhesions, and despite my approach to enter pleural cavity extrapleurally, this attempt also failed. Therefore, patient was placed in a supine position, and redraped and reprepped. and again under satisfactory IV sedation and local 0.5% Xylocaine infiltration, a 28-Ch[place]an chest tube was placed through a fifth intercostal space at the midclavicular line, after exploring chest cavity with finder and lysing adhesions. The chest tube was directed superiorly and posteriorly.. Chest tube was secured at the skin level with 0 silk sutures. Approximately 1500 mL of hemorrhagic effusion was evacuated. Fluid was sent out for appropriate studies. The operative site was covered with 4 x 4 and taped in the usual manner. The patient tolerated the procedure very well and was transferred to recovery room with good vital signs. ESTIMATED BLOOD LOSS: 50 cc. Sponge, needle and instrument counts were correct. Carlos Soto MD cc: [id number] TT: 08/20/2016 15:01:37 rn MTDD
[2016-08-22] MEDS: (Novolin R) Insulin Human Regular 100 units/ml vial SC SCH ×4 (08:25→22:10)
[2016-08-22 08:38] LABS: EOSINOPHIL 1 % (0-4); NEUTROPHIL 86 % (50-75); TOTAL CELLS COUNTED 100
[2016-08-22] MEDS: Saccharomyces Boulardi 250 mg Cap PO SCH ×2 (10:07→19:48)
--- NOTE | 2016-08-22 10:10 | CP.PCM.PN ---
<Everette Gonzalez - Last Filed: 08/22/16 15:59> Subjective - Date & Time of Evaluation Date of Evaluation: 08/22/16 Time of Evaluation: 11:26 - Subjective Subjective: PGY 1 Medicine Note- Dr. Estrada's service Pt seen and examined in no acute distress. Pt eating food brought by daughter though with come encouragement. Patient about to begin dialysis bedside after dialysis cath was changed. Patient denies chest pain, palpitations, dyspnea, shortness of breath at this time. Objective - Vital Signs/Intake and Output Vital Signs (last 24 hours): Temp Pulse Resp BP Pulse Ox 98 F 73 13 120/82 100 08/22/16 08:00 08/22/16 08:31 08/22/16 08:31 08/22/16 08:31 08/22/16 06:00 Intake and Output: 08/22/16 08/22/16 06:59 18:59 Intake Total 400 Output Total 50 Balance 350 - Medications Medications: Current Medications Acetaminophen (Tylenol 650mg/20.3ml Solution Ud) 650 mg PO Q4 PRN PRN Reason: pain Last Admin: 08/21/16 09:48 Dose: 650 mg Aspirin (Aspirin Chewable) 81 mg PO DAILY [facility] Last Admin: 08/21/16 09:35 Dose: 81 mg Epoetin Sly (Procrit) 10,000 unit IV MWF [facility] Last Admin: 08/19/16 12:32 Dose: 10,000 unit Famotidine (Pepcid) 20 mg PO DAILY [facility] Last Admin: 08/21/16 09:35 Dose: 20 mg Furosemide (Lasix) 40 mg PO DAILY [facility] Last Admin: 08/21/16 12:43 Dose: 40 mg Cefepime HCl (Maxipime Iv 1 Gm Premix) 50 mls @ 100 mls/hr IVPB DAILY [facility] Last Admin: 08/21/16 09:35 Dose: 100 mls/hr Azithromycin 500 mg/ Sodium (Chloride) 250 mls @ 250 mls/hr IVPB DAILY [facility] Last Admin: 08/21/16 12:42 Dose: 250 mls/hr Insulin Human Regular (Novolin R) 0 unit SC ACHS [facility] PRN Reason: Protocol Last Admin: 08/22/16 08:25 Dose: 1 unit Levothyroxine Sodium (Synthroid) 125 mcg PO DAILY@0630 [facility] Last Admin: 08/22/16 05:57 Dose: 125 mcg Lidocaine HCl (Lidocaine 2% Viscous) 15 ml PO TID PRN PRN Reason: Pain, Mild (1-3) Last Admin: 08/15/16 20:01 Dose: 15 ml Metoprolol Succinate (Toprol Xl) 25 mg PO DAILY [facility] Last Admin: 08/21/16 09:35 Dose: 25 mg Rosuvastatin Calcium (Crestor) 10 mg PO HS [facility] Last Admin: 08/21/16 21:51 Dose: 10 mg Saccharomyces Boulardii (Florastor) 250 mg PO BID [facility] Last Admin: 08/22/16 10:07 Dose: Not Given - Labs Labs: 08/22/16 06:32 08/22/16 06:33 PT 14.7 SECONDS (9.7-12.2) H 08/12/16 06:00 INR 1.3 08/12/16 06:00 APTT 40 SECONDS (21-34) H 08/12/16 06:00 - Constitutional Appears: Non-toxic, No Acute Distress - Head Exam Head Exam: ATRAUMATIC, NORMAL INSPECTION, NORMOCEPHALIC - Eye Exam Eye Exam: EOMI, Normal appearance, PERRL Pupil Exam: NORMAL ACCOMODATION - ENT Exam ENT Exam: Mucous Membranes Moist - Neck Exam Neck Exam: Full ROM - Respiratory Exam Respiratory Exam: Rales, NORMAL BREATHING PATTERN. absent: Wheezes Additional comments: chest tube output approx 30 cc as of this morning's shift - Cardiovascular Exam Cardiovascular Exam: +S1, +S2 - GI/Abdominal Exam GI & Abdominal Exam: Soft, Normal Bowel Sounds - Extremities Exam Extremities Exam: Full ROM, Normal Capillary Refill - Back Exam Back Exam: Full ROM, NORMAL INSPECTION - Neurological Exam Neurological Exam: Alert, Awake, CN II-XII Intact, Oriented x3 - Psychiatric Exam Psychiatric exam: Normal Affect, Normal Mood - Skin Skin Exam: Dry, Intact, Normal Color, Warm Assessment and Plan (1) Hydropneumothorax Status: Acute (2) Pleural effusion Status: Acute (3) CHF (congestive heart failure) Status: Chronic (4) ESRD (end stage renal disease) on dialysis Status: Chronic (5) Anemia Status: Chronic (6) Foot ulcer, left Status: Acute (7) Hypertension Status: Acute (8) Hypothyroidism Status: Acute (9) Prophylactic measure Status: Acute - Assessment and Plan (Free Text) Assessment: (1) Hydropneumothorax Assessment & Plan: Cardiothoracic surgery - Dr. Soto- Chest tube can be removed once discharge planning finalized S/P anterior chest tube insertion CT Chest- revealed right sided hydropneumothorax. Patient awake, alert, comfortable, in no respiratory distress. Chest tube to be removed once discharge planning in place. Daughter deciding on [facility] options. Chest tube management per surgery ( cardiothoracic) CXR 08/20/16: Right-sided chest tube. Persistent medial right upper lobe opacity. Moderate loculated right pleural effusion with consolidative changes in the right mid to lower lung zone. Biapical pleural thickening with upper lobe granulomatous changes. Mild left basilar atelectasis. No definite pneumothorax F/U with case management. Status: Acute (2) Pleural effusion Assessment & Plan: Right sided recurrent pleural effusions Dr. Walker consulted for thoracentesis - help appreciated - 1800mL was removed CXR this AM shows no change. CXR 08/20/16: Right-sided chest tube. Persistent medial right upper lobe opacity. Moderate loculated right pleural effusion with consolidative changes in the right mid to lower lung zone. Biapical pleural thickening with upper lobe granulomatous changes. Mild left basilar atelectasis. No definite pneumothorax Start Lasix 40 mg PO daily Status: Acute (3) Leukocytosis Assessment & Plan: 13.8 this AM. Blood Cx negative Pleural fluid Cx negative Sputum Cx shows no AFB f/u CBC in the AM f/u Procalcitonin Start Azithromycin IVPB (4) CHF (congestive heart failure) Assessment & Plan: Hx of CHF Hx CAD: On ASA, Crestor, Toprol Echo LVEF 69%, Refer to report Status: Chronic (5) ESRD (end stage renal disease) on dialysis Assessment & Plan: ESRD on HD MWF Continued Elizabeth Mcfarland - help appreciated Status: Chronic (6) Anemia Assessment & Plan: Stable at 11.1 Monitor and transfuse as needed. Status: Chronic (7) Foot ulcer, left Assessment & Plan: Afebrile, no white count Cefepime Q12H- Day 12 No growth on urine or blood cultures Wound care recommendations 08/17/16: * MEDIHONEY TO LEFT HEEL COVERED WITH THICK BULKY DRESSING TO BE DONE DAILY. * MUST KEEP PREVALON BOOTS ON AT ALL TIMES TO OPTIMIZE OFFLOADING OF HEELS. Status: Acute (8) Hypertension Assessment & Plan: on Toprol XL 25mg PO daily Status: Acute (9) Hypothyroidism Assessment & Plan: Synthroid 125 mcg PO daily Continue to monitor TSH. Status: Acute (10) Thrombocytopenia Assessment & Plan: Improved. 184 this AM (11) Prophylactic measure Assessment & Plan: -GI: Pepcid 20 mg PO daily. PPI contraindicated due to thrombocytopenia. -DVT: SCDs. VTE contraindicated due to thrombocytopenia -Heart Healthy Diet- Encourage home food intake as well; Calorie count -PT/OT- F/U -Case management referral for [facility], homecare, visiting nurse. Daughter still deciding on [facility] options. F/U with case management. Status: Acute <Aileen Estrada V - Last Filed: 08/23/16 06:02> Objective - Vital Signs/Intake and Output Vital Signs (last 24 hours): Temp Pulse Resp BP Pulse Ox 96.8 F L 89 16 101/61 100 08/23/16 04:00 08/23/16 04:05 08/23/16 04:05 08/23/16 04:05 08/22/16 06:00 Intake and Output: 08/22/16 08/23/16 18:59 06:59 Intake Total 330 Output Total 0 Balance 330 - Medications Medications: Current Medications Acetaminophen (Tylenol 650mg/20.3ml Solution Ud) 650 mg PO Q4 PRN PRN Reason: pain Last Admin: 08/21/16 09:48 Dose: 650 mg Epoetin Sly (Procrit) 10,000 unit IV MWF [facility] Last Admin: 08/22/16 13:44 Dose: 10,000 unit Famotidine (Pepcid) 20 mg PO DAILY [facility] Last Admin: 08/22/16 19:48 Dose: Not Given Furosemide (Lasix) 40 mg PO DAILY [facility] Last Admin: 08/22/16 19:48 Dose: Not Given Cefepime HCl (Maxipime Iv 1 Gm Premix) 50 mls @ 100 mls/hr IVPB DAILY [facility] Last Admin: 08/22/16 14:09 Dose: 100 mls/hr Azithromycin 500 mg/ Sodium (Chloride) 250 mls @ 250 mls/hr IVPB DAILY [facility] Last Admin: 08/22/16 11:59 Dose: 250 mls/hr Insulin Human Regular (Novolin R) 0 unit SC ACHS [facility] PRN Reason: Protocol Last Admin: 08/22/16 22:10 Dose: Not Given Levothyroxine Sodium (Synthroid) 125 mcg PO DAILY@0630 [facility] Last Admin: 08/22/16 05:57 Dose: 125 mcg Lidocaine HCl (Lidocaine 2% Viscous) 15 ml PO TID PRN PRN Reason: Pain, Mild (1-3) Last Admin: 08/15/16 20:01 Dose: 15 ml Metoprolol Succinate (Toprol Xl) 25 mg PO DAILY [facility] Last Admin: 08/22/16 12:00 Dose: Not Given Rosuvastatin Calcium (Crestor) 10 mg PO HS [facility] Last Admin: 08/22/16 21:19 Dose: 10 mg Saccharomyces Boulardii (Florastor) 250 mg PO BID [facility] Last Admin: 08/22/16 19:48 Dose: Not Given - Labs Labs: 08/22/16 06:32 08/22/16 06:33 PT 14.7 SECONDS (9.7-12.2) H 08/12/16 06:00 INR 1.3 08/12/16 06:00 APTT 40 SECONDS (21-34) H 08/12/16 06:00 Attending/Attestation - Attestation I have personally seen and examined this patient.: Yes I have fully participated in the care of the patient.: Yes I have reviewed all pertinent clinical information, including history, physical exam and plan: Yes Notes (Text): This is late computer entry for 08/22/16. Patient seen, examined and case discussed with day-time resident. Patient seen this morning prior to dialysis, pleasant, cheerful, and following dialysis, daughter notes mother not like herself, "punching" her which I had not observed. Patient's white count slowly uptrending, ordered for repeat blood cultures to be drawn on dialysis. Patient started on Azithromycin today in addition to Cefepime; will d/c Azithromycin if patient continues to act strangely per daughter. Note: prior to my discussion with daughter, today was the best I've seen the patient. Held Aspirin given per discussion with daughter, she was advised by Dr Long to stop asthma because patient has severe thrombocytopenia in the past. Wound care referral for right heel. Visibly it appears as dry eschar, per daughter, she feels it is getting worse. Will order xray of foot. Patient's AV fistula, clotted over the weekend per discussion with surgery, and patient receiving dialysis femoral catheter. Discussed with Dr. Buck, recommended for OR or with IR to declot the AV fistula access. I spoke with daughter at length, given my discussion with surgery, and she is concerned about any sedation and does not want any aggressive procedure because her mother has been through quite a bit; but wants to be consulted prior to any procedure. I also to explained to the daughter, given conversation with CT surgery, patient has uremic lung, and the fluid will re-accumulate given ckd, and there is minimal output from the chest tube, but we don't want her mother to be without access for dialysis because the fluid will re-accumulate without a way to remove it. She is agreeable to that.
--- NOTE | 2016-08-22 10:40 | RAD ---
HISTORY: chest tube COMPARISON: 08/21/2016 FINDINGS: LUNGS: Lines and tubes in stable position. Persistent moderate loculated right pleural effusion. Trace left pleural effusion. Consolidative opacifications in the right mid to lower lung zone with milder opacification at the left lung base. Right paratracheal airspace opacity. PLEURA: As above. CARDIOVASCULAR: Status post median sternotomy and CABG. Cardiomegaly. Calcification at the aortic knob. Status post median sternotomy. OSSEOUS STRUCTURES: Degenerative changes in the spine and shoulders. Probable loose bodies at the left glenohumeral joint space. VISUALIZED UPPER ABDOMEN: Normal. OTHER FINDINGS: None. IMPRESSION: No significant interval change.
--- NOTE | 2016-08-22 10:59 | PCM.PROC ---
Procedures Attestation:: I certify that I have explained the specified Operation(s) or Procedure(s), risks, benefits and reasonable alternatives to the Patient and/or other person responsible. The opportunity was given to ask questions and all questions answered - Central Line Placement Right Femoral Hemodialysis Access Aseptic technique was employed throughout the procedure: Hand Hygiene done prior to procedure, Full sterile barriers (mask, hair cover, sterile gown, sterile gloves), Full body sterile drape, Chloraprep Antiseptic: 2 minute prep for Femoral Pt. Placed on Pulse Ox Monitor: Yes Central Line Prep: Chlorhexidine-Alcohol Combination Local Anesthesia Used: Lidocaine 1% Amount of Anesthesia Used (mls): 5 Ultrasound Used for Placement: Yes Central Line Lumen Inserted: double Central Line Length: 20 cm Post Procedure: Sutured in Place, Good Blood Return, All Ports Aspirated, Flushed, Capped, Sterile Dressing Applied Secured by: Suture Post procedure dressing: Gauze, Chlorhexidine disc (Biopatch) Post Procedure X-Ray: No Patient Tolerated Procedure: Well Immediate Complications: None
--- NOTE | 2016-08-22 11:18 | CP.PCM.PN ---
Subjective - Date & Time of Evaluation Date of Evaluation: 08/22/16 Time of Evaluation: 11:16 - Subjective Subjective: Post dialysis now- UF 1000ml Alert; feels better Afebrile ; eating better IJ cath non functional ; new fem cath used without difficulty Chest tube still in; minimal drainage Objective - Vital Signs/Intake and Output Vital Signs (last 24 hours): Temp Pulse Resp BP Pulse Ox 98 F 73 13 120/82 100 08/22/16 08:00 08/22/16 08:31 08/22/16 08:31 08/22/16 08:31 08/22/16 06:00 Intake and Output: 08/22/16 08/22/16 06:59 18:59 Intake Total 400 Output Total 50 Balance 350 - Medications Medications: Current Medications Acetaminophen (Tylenol 650mg/20.3ml Solution Ud) 650 mg PO Q4 PRN PRN Reason: pain Last Admin: 08/21/16 09:48 Dose: 650 mg Aspirin (Aspirin Chewable) 81 mg PO DAILY [facility] Last Admin: 08/21/16 09:35 Dose: 81 mg Epoetin Sly (Procrit) 10,000 unit IV MWF [facility] Last Admin: 08/19/16 12:32 Dose: 10,000 unit Famotidine (Pepcid) 20 mg PO DAILY [facility] Last Admin: 08/21/16 09:35 Dose: 20 mg Furosemide (Lasix) 40 mg PO DAILY [facility] Last Admin: 08/21/16 12:43 Dose: 40 mg Cefepime HCl (Maxipime Iv 1 Gm Premix) 50 mls @ 100 mls/hr IVPB DAILY [facility] Last Admin: 08/21/16 09:35 Dose: 100 mls/hr Azithromycin 500 mg/ Sodium (Chloride) 250 mls @ 250 mls/hr IVPB DAILY [facility] Last Admin: 08/21/16 12:42 Dose: 250 mls/hr Insulin Human Regular (Novolin R) 0 unit SC ACHS [facility] PRN Reason: Protocol Last Admin: 08/22/16 08:25 Dose: 1 unit Levothyroxine Sodium (Synthroid) 125 mcg PO DAILY@0630 [facility] Last Admin: 08/22/16 05:57 Dose: 125 mcg Lidocaine HCl (Lidocaine 2% Viscous) 15 ml PO TID PRN PRN Reason: Pain, Mild (1-3) Last Admin: 08/15/16 20:01 Dose: 15 ml Metoprolol Succinate (Toprol Xl) 25 mg PO DAILY [facility] Last Admin: 08/21/16 09:35 Dose: 25 mg Rosuvastatin Calcium (Crestor) 10 mg PO HS [facility] Last Admin: 08/21/16 21:51 Dose: 10 mg Saccharomyces Boulardii (Florastor) 250 mg PO BID [facility] Last Admin: 08/22/16 10:07 Dose: Not Given - Labs Labs: 08/22/16 06:32 08/22/16 06:33 PT 14.7 SECONDS (9.7-12.2) H 08/12/16 06:00 INR 1.3 08/12/16 06:00 APTT 40 SECONDS (21-34) H 08/12/16 06:00 - Constitutional Appears: No Acute Distress, Chronically Ill - Head Exam Head Exam: ATRAUMATIC, NORMAL INSPECTION - Eye Exam Eye Exam: EOMI, Normal appearance - Neck Exam Neck Exam: Normal Inspection. absent: Tenderness - Respiratory Exam Respiratory Exam: Decreased Breath Sounds, NORMAL BREATHING PATTERN - Cardiovascular Exam Cardiovascular Exam: REGULAR RHYTHM, +S1 - GI/Abdominal Exam GI & Abdominal Exam: Soft. absent: Tenderness - Extremities Exam Extremities Exam: Normal Inspection. absent: Tenderness - Neurological Exam Neurological Exam: Alert, CN II-XII Intact - Skin Skin Exam: Dry, Warm Assessment and Plan (1) Diabetes mellitus Status: Acute (2) CHF (congestive heart failure) Status: Chronic (3) Secondary hyperparathyroidism Status: Acute (4) ESRD (end stage renal disease) on dialysis Status: Chronic (5) Hydropneumothorax Status: Acute - Assessment and Plan (Free Text) Plan: Dialysis MWF- UF 1000ml qHD Chest tube management as per surgery Will need new IJ dialysis cath- check with vascular Advance diet
[2016-08-22] MEDS: Azithromycin 500 MG in Sodium Chloride 0.9% 250 ML IVPB SCH (11:59)
[2016-08-22] MEDS: Metoprolol Succinate 25 mg XL Tab PO SCH (12:00)
[2016-08-22] MEDS: Epoetin Alfa 10,000 unit/ml Dialysis IV SCH (13:44)
[2016-08-22] MEDS: Cefepime IV 1 gm in Dextrose 50 ML IVPB SCH (14:09)
--- NOTE | 2016-08-22 15:24 | CP.PCM.PN ---
Subjective - Date & Time of Evaluation Date of Evaluation: 08/22/16 Time of Evaluation: 15:22 - Subjective Subjective: Surgery: Dr. Buck Pt seen and examined. AVF not working. R femoral dialysis catheter placed at bedside. Objective - Vital Signs/Intake and Output Vital Signs (last 24 hours): Temp Pulse Resp BP Pulse Ox 97.3 F L 76 17 103/44 L 100 08/22/16 12:25 08/22/16 12:54 08/22/16 12:54 08/22/16 14:00 08/22/16 06:00 Intake and Output: 08/22/16 08/22/16 06:59 18:59 Intake Total 400 Output Total 50 Balance 350 - Medications Medications: Current Medications Acetaminophen (Tylenol 650mg/20.3ml Solution Ud) 650 mg PO Q4 PRN PRN Reason: pain Last Admin: 08/21/16 09:48 Dose: 650 mg Aspirin (Aspirin Chewable) 81 mg PO DAILY [facility] Last Admin: 08/21/16 09:35 Dose: 81 mg Epoetin Sly (Procrit) 10,000 unit IV MWF [facility] Last Admin: 08/22/16 13:44 Dose: 10,000 unit Famotidine (Pepcid) 20 mg PO DAILY [facility] Last Admin: 08/21/16 09:35 Dose: 20 mg Furosemide (Lasix) 40 mg PO DAILY [facility] Last Admin: 08/21/16 12:43 Dose: 40 mg Cefepime HCl (Maxipime Iv 1 Gm Premix) 50 mls @ 100 mls/hr IVPB DAILY [facility] Last Admin: 08/22/16 14:09 Dose: 100 mls/hr Azithromycin 500 mg/ Sodium (Chloride) 250 mls @ 250 mls/hr IVPB DAILY [facility] Last Admin: 08/22/16 11:59 Dose: 250 mls/hr Insulin Human Regular (Novolin R) 0 unit SC ACHS [facility] PRN Reason: Protocol Last Admin: 08/22/16 12:35 Dose: 2 unit Levothyroxine Sodium (Synthroid) 125 mcg PO DAILY@0630 [facility] Last Admin: 08/22/16 05:57 Dose: 125 mcg Lidocaine HCl (Lidocaine 2% Viscous) 15 ml PO TID PRN PRN Reason: Pain, Mild (1-3) Last Admin: 08/15/16 20:01 Dose: 15 ml Metoprolol Succinate (Toprol Xl) 25 mg PO DAILY [facility] Last Admin: 08/22/16 12:00 Dose: Not Given Rosuvastatin Calcium (Crestor) 10 mg PO HS [facility] Last Admin: 08/21/16 21:51 Dose: 10 mg Saccharomyces Boulardii (Florastor) 250 mg PO BID [facility] Last Admin: 08/22/16 10:07 Dose: Not Given - Labs Labs: 08/22/16 06:32 08/22/16 06:33 PT 14.7 SECONDS (9.7-12.2) H 08/12/16 06:00 INR 1.3 08/12/16 06:00 APTT 40 SECONDS (21-34) H 08/12/16 06:00 - Constitutional Appears: Non-toxic, No Acute Distress - Head Exam Head Exam: ATRAUMATIC, NORMOCEPHALIC - Eye Exam Eye Exam: EOMI. absent: Scleral icterus - ENT Exam ENT Exam: Mucous Membranes Moist - Neck Exam Neck Exam: Full ROM - Respiratory Exam Respiratory Exam: NORMAL BREATHING PATTERN. absent: Accessory Muscle Use, Respiratory Distress - GI/Abdominal Exam GI & Abdominal Exam: Soft. absent: Distended, Firm, Guarding, Rigid, Tenderness - Extremities Exam Extremities Exam: absent: Calf Tenderness, Pedal Edema - Neurological Exam Neurological Exam: Alert, Awake Assessment and Plan - Assessment and Plan (Free Text) Assessment: 75F w. difficulty cannulating AVF and increase venous pressure -OR vs IR either Monday or Monday -will make NPO at midnight -c/w current medical mangement -d/w attending [place] PGY2
[2016-08-23] MEDS: Levothyroxine 125 MCG TAB PO SCH ×2 (06:33→06:35)
[2016-08-23 06:39] LABS: BASO # 0.1 K/uL (0.0-0.2); BASO % 1.1 % (0.0-2.0); EOS # 0.2 K/uL (0.0-0.7); EOS % 1.9 % (0.0-4.0); HEMATOCRIT 31.1 % (34.0-47.0); LYMPH % 7.7 % (20.0-40.0); MEAN CELL VOLUME 96.9 fL (81.0-99.0); MEAN CORPUSCULAR HEMOGLOBIN 31.6 pg (27.0-31.0); MEAN CORPUSCULAR HGB CONC 32.6 g/dL (33.0-37.0); MEAN PLATELET VOLUME 9.6 fL (7.2-11.7); MONO # 1.6 K/uL (0.0-0.8); MONO % 12.7 % (0.0-10.0); NRBC % 0.1 % (0.0-2.0); PLATELET COUNT 179 K/uL (130-400); WHITE BLOOD COUNT 12.9 K/uL (4.8-10.8)
[2016-08-23 06:54] LABS: POTASSIUM 4.5 mmol/L (3.6-5.2)
[2016-08-23 06:56] LABS: BILIRUBIN,TOTAL 2.3 mg/dL (0.2-1.3); TOTAL PROTEIN 6.8 g/dL (6.3-8.3)
[2016-08-23 06:57] LABS: ALB/GLOB RATIO 0.7 (1.0-2.1); CALCIUM 7.2 mg/dl (8.6-10.4); MAGNESIUM 1.8 mg/dL (1.6-2.3); PHOSPHOROUS 3.2 mg/dL (2.5-4.5)
[2016-08-23] MEDS: (Novolin R) Insulin Human Regular 100 units/ml vial SC SCH ×4 (08:36→22:02)
[2016-08-23] MEDS: Saccharomyces Boulardi 250 mg Cap PO SCH ×2 (09:16→18:21)
[2016-08-23 09:19] LABS: NEUTROPHIL 81 % (50-75); TOTAL CELLS COUNTED 100
[2016-08-23 09:21] LABS: LARGE PLATELETS PRESENT
--- NOTE | 2016-08-23 09:29 | RAD ---
HISTORY: right chest tube COMPARISON: 08/22/2016 FINDINGS: LUNGS: Lines and tubes stable position. Persistent moderate loculated right pleural effusion. Moderate venous congestion. Consolidative changes in the right mid to lower lung zone. PLEURA: As above. CARDIOVASCULAR: Cardiomegaly. Status post median sternotomy and CABG. Left axillary stent in place. OSSEOUS STRUCTURES: Degenerative changes. VISUALIZED UPPER ABDOMEN: Normal. OTHER FINDINGS: None. IMPRESSION: No significant interval change.
[2016-08-23] MEDS: Metoprolol 1 mg/ml Inj IVP SCH ×2 (09:31→21:24)
[2016-08-23] MEDS: Cefepime IV 1 gm in Dextrose 50 ML IVPB SCH (09:32)
--- NOTE | 2016-08-23 10:02 | RAD ---
PROCEDURE: Bilateral Feet Radiographs. HISTORY: heel wound COMPARISON: None. FINDINGS: BONES: Right Foot: Osteopenia No fracture. Left Foot: Osteophyte. No fracture. 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 Proximal and distal interphalangeal joints SOFT TISSUES: Bilateral atherosclerotic vascular calcifications present. A new approximately 11 by 5 mm eft heel soft tissue defect consistent with an ulcer is present. On the lateral view this ulcer lucency projects down almost to the left calcaneal posterior cortex. No gross periosteal reaction is seen here. There is a tiny unrelated posterior calcaneal spur/blending Achilles tendon insertional enthesophyte here noted. OTHER FINDINGS: Bilateral hammertoe like orientations IMPRESSION: Left heel soft tissue ulcer -and appears deep on the lateral view no gross cortical destruction or periosteal reaction seen to suggest osteomyelitis. If further evaluation is needed consider MRI Atherosclerotic vascular calcifications bilateral and diffuse
--- NOTE | 2016-08-23 10:05 | CP.PCM.PN ---
Subjective - Date & Time of Evaluation Date of Evaluation: 08/23/16 Time of Evaluation: 10:02 - Subjective Subjective: Surgery: Dr. Soto Pt seen and examined. Resting comfortably in bed. No acute events overnight. Objective - Vital Signs/Intake and Output Vital Signs (last 24 hours): Temp Pulse Resp BP Pulse Ox 96.8 F L 89 16 101/61 100 08/23/16 04:00 08/23/16 04:05 08/23/16 04:05 08/23/16 04:05 08/22/16 06:00 - Medications Medications: Current Medications Acetaminophen (Tylenol 650mg/20.3ml Solution Ud) 650 mg PO Q4 PRN PRN Reason: pain Last Admin: 08/21/16 09:48 Dose: 650 mg Epoetin Sly (Procrit) 10,000 unit IV MWF [facility] Last Admin: 08/22/16 13:44 Dose: 10,000 unit Famotidine (Pepcid) 20 mg IVP DAILY [facility] Last Admin: 08/23/16 09:32 Dose: 20 mg Cefepime HCl (Maxipime Iv 1 Gm Premix) 50 mls @ 100 mls/hr IVPB DAILY [facility] Last Admin: 08/23/16 09:32 Dose: 100 mls/hr Insulin Human Regular (Novolin R) 0 unit SC ACHS [facility] PRN Reason: Protocol Last Admin: 08/23/16 08:36 Dose: Not Given Levothyroxine Sodium (Levothyroxine) 200 mcg IVP DAILY [facility] Lidocaine HCl (Lidocaine 2% Viscous) 15 ml PO TID PRN PRN Reason: Pain, Mild (1-3) Last Admin: 08/15/16 20:01 Dose: 15 ml Metoprolol Tartrate (Lopressor) 2.5 mg IVP Q12 [facility] Last Admin: 08/23/16 09:31 Dose: 2.5 mg Saccharomyces Boulardii (Florastor) 250 mg PO BID [facility] Last Admin: 08/23/16 09:16 Dose: Not Given - Labs Labs: 08/23/16 06:29 08/23/16 06:29 PT 14.7 SECONDS (9.7-12.2) H 08/12/16 06:00 INR 1.3 08/12/16 06:00 APTT 40 SECONDS (21-34) H 08/12/16 06:00 - Constitutional Appears: Non-toxic, No Acute Distress - Head Exam Head Exam: NORMAL INSPECTION - Eye Exam Eye Exam: EOMI. absent: Scleral icterus - ENT Exam ENT Exam: Mucous Membranes Moist - Respiratory Exam Respiratory Exam: NORMAL BREATHING PATTERN. absent: Accessory Muscle Use, Respiratory Distress Additional comments: R side CT in place - GI/Abdominal Exam GI & Abdominal Exam: Soft. absent: Distended, Firm, Guarding, Rigid, Tenderness - Extremities Exam Extremities Exam: absent: Calf Tenderness, Pedal Edema - Neurological Exam Neurological Exam: Alert, Awake Assessment and Plan - Assessment and Plan (Free Text) Assessment: 75F w. R side hydro PTX, s/p CT placement, POD#11 -CXR stable -CT: 20cc/12hr serosang output, tidling, no air leak -keep CT to suction -daily CXR -will remove CT just prior to D/C -d/w attending [place] PGY2
--- NOTE | 2016-08-23 10:15 | CP.PCM.PN ---
Subjective - Date & Time of Evaluation Date of Evaluation: 08/23/16 Time of Evaluation: 10:12 - Subjective Subjective: Surgery: Dr. Buck Pt seen and examined. Resting comfortably in bed. No acute events overnight. Objective - Vital Signs/Intake and Output Vital Signs (last 24 hours): Temp Pulse Resp BP Pulse Ox 96.8 F L 89 16 101/61 100 08/23/16 04:00 08/23/16 04:05 08/23/16 04:05 08/23/16 04:05 08/22/16 06:00 - Medications Medications: Current Medications Acetaminophen (Tylenol 650mg/20.3ml Solution Ud) 650 mg PO Q4 PRN PRN Reason: pain Last Admin: 08/21/16 09:48 Dose: 650 mg Epoetin Sly (Procrit) 10,000 unit IV MWF [facility] Last Admin: 08/22/16 13:44 Dose: 10,000 unit Famotidine (Pepcid) 20 mg IVP DAILY [facility] Last Admin: 08/23/16 09:32 Dose: 20 mg Cefepime HCl (Maxipime Iv 1 Gm Premix) 50 mls @ 100 mls/hr IVPB DAILY [facility] Last Admin: 08/23/16 09:32 Dose: 100 mls/hr Insulin Human Regular (Novolin R) 0 unit SC ACHS [facility] PRN Reason: Protocol Last Admin: 08/23/16 08:36 Dose: Not Given Levothyroxine Sodium (Levothyroxine) 200 mcg IVP DAILY [facility] Lidocaine HCl (Lidocaine 2% Viscous) 15 ml PO TID PRN PRN Reason: Pain, Mild (1-3) Last Admin: 08/15/16 20:01 Dose: 15 ml Metoprolol Tartrate (Lopressor) 2.5 mg IVP Q12 [facility] Last Admin: 08/23/16 09:31 Dose: 2.5 mg Saccharomyces Boulardii (Florastor) 250 mg PO BID [facility] Last Admin: 08/23/16 09:16 Dose: Not Given - Labs Labs: 08/23/16 06:29 08/23/16 06:29 PT 14.7 SECONDS (9.7-12.2) H 08/12/16 06:00 INR 1.3 08/12/16 06:00 APTT 40 SECONDS (21-34) H 08/12/16 06:00 - Constitutional Appears: Non-toxic, No Acute Distress - Head Exam Head Exam: ATRAUMATIC, NORMOCEPHALIC - Eye Exam Eye Exam: EOMI - ENT Exam ENT Exam: Mucous Membranes Moist - Neck Exam Neck Exam: Full ROM - Respiratory Exam Respiratory Exam: NORMAL BREATHING PATTERN. absent: Accessory Muscle Use, Respiratory Distress - GI/Abdominal Exam GI & Abdominal Exam: Soft. absent: Distended, Firm, Guarding, Rigid, Tenderness - Extremities Exam Additional comments: R groin dialysis catheter, dressing C/D/I - Neurological Exam Neurological Exam: Alert, Awake Assessment and Plan - Assessment and Plan (Free Text) Assessment: 75F w. ESRD w. narrowing of AVF graft -continue to use femoral dialysis catheter -will d/w daughter IR vs OR for AVF graft -d/w attending [place] PGY2
[2016-08-23] MEDS: Levothyroxine 200 mcg (0.2 mg) Inj IVP SCH (11:08)
--- NOTE | 2016-08-23 14:08 | CP.PCM.PN ---
Subjective - Date & Time of Evaluation Date of Evaluation: 08/23/16 Time of Evaluation: 14:07 - Subjective Subjective: seen and examined no events hd yesterday pt is confused and unable to answer any questions femoral hd catheter Objective - Vital Signs/Intake and Output Vital Signs (last 24 hours): Temp Pulse Resp BP Pulse Ox 97.5 F L 76 10 L 140/54 L 100 08/23/16 12:00 08/23/16 13:05 08/23/16 13:08/23/16 13:08/22/16 06:00 - Medications Medications: Current Medications Acetaminophen (Tylenol 650mg/20.3ml Solution Ud) 650 mg PO Q4 PRN PRN Reason: pain Last Admin: 08/21/16 09:48 Dose: 650 mg Epoetin Sly (Procrit) 10,000 unit IV MWF [facility] Last Admin: 08/22/16 13:44 Dose: 10,000 unit Famotidine (Pepcid) 20 mg IVP DAILY [facility] Last Admin: 08/23/16 09:32 Dose: 20 mg Cefepime HCl (Maxipime Iv 1 Gm Premix) 50 mls @ 100 mls/hr IVPB DAILY [facility] Last Admin: 08/23/16 09:32 Dose: 100 mls/hr Insulin Human Regular (Novolin R) 0 unit SC ACHS [facility] PRN Reason: Protocol Last Admin: 08/23/16 11:32 Dose: Not Given Levothyroxine Sodium (Levothyroxine) 200 mcg IVP DAILY [facility] Last Admin: 08/23/16 11:08 Dose: 200 mcg Lidocaine HCl (Lidocaine 2% Viscous) 15 ml PO TID PRN PRN Reason: Pain, Mild (1-3) Last Admin: 08/15/16 20:01 Dose: 15 ml Metoprolol Tartrate (Lopressor) 2.5 mg IVP Q12 [facility] Last Admin: 08/23/16 09:31 Dose: 2.5 mg Saccharomyces Boulardii (Florastor) 250 mg PO BID [facility] Last Admin: 08/23/16 09:16 Dose: Not Given - Labs Labs: 08/23/16 06:29 08/23/16 06:29 PT 14.7 SECONDS (9.7-12.2) H 08/12/16 06:00 INR 1.3 08/12/16 06:00 APTT 40 SECONDS (21-34) H 08/12/16 06:00 - Constitutional Appears: No Acute Distress, Confused, Cachectic, Chronically Ill - Head Exam Head Exam: NORMAL INSPECTION - Eye Exam Eye Exam: Normal appearance - ENT Exam ENT Exam: Mucous Membranes Moist, Normal Exam - Neck Exam Neck Exam: Normal Inspection - Respiratory Exam Respiratory Exam: Decreased Breath Sounds, NORMAL BREATHING PATTERN - Cardiovascular Exam Cardiovascular Exam: REGULAR RHYTHM, RRR - GI/Abdominal Exam GI & Abdominal Exam: Distended, Soft, Normal Bowel Sounds - Extremities Exam Extremities Exam: Normal Inspection Additional comments: lue avf Assessment and Plan (1) Hydropneumothorax Status: Acute (2) Hypertension Status: Acute (3) Anemia Status: Chronic (4) ESRD (end stage renal disease) on dialysis Status: Chronic (5) CHF (congestive heart failure) Status: Chronic - Assessment and Plan (Free Text) Assessment: - HD tomorrow, increase uf as tolerated. - chest tube management per surgery - pt will need access for chronic dialysis, currently has femoral hd cath. avf / permcath per vascular, Dr Buck
--- NOTE | 2016-08-23 14:32 | CP.PCM.PN ---
Subjective - Date & Time of Evaluation Date of Evaluation: 08/23/16 Time of Evaluation: 14:30 - Subjective Subjective: Pt s/e. Clinical course remains unchanged. chest tube-50cc/y. Will remove the chest tube as she is ready to be discharged. Objective - Vital Signs/Intake and Output Vital Signs (last 24 hours): Temp Pulse Resp BP Pulse Ox 97.5 F L 76 10 L 140/54 L 100 08/23/16 12:00 08/23/16 13:05 08/23/16 13:08/23/16 13:08/22/16 06:00 - Medications Medications: Current Medications Acetaminophen (Tylenol 650mg/20.3ml Solution Ud) 650 mg PO Q4 PRN PRN Reason: pain Last Admin: 08/21/16 09:48 Dose: 650 mg Epoetin Sly (Procrit) 10,000 unit IV MWF [facility] Last Admin: 08/22/16 13:44 Dose: 10,000 unit Famotidine (Pepcid) 20 mg IVP DAILY [facility] Last Admin: 08/23/16 09:32 Dose: 20 mg Cefepime HCl (Maxipime Iv 1 Gm Premix) 50 mls @ 100 mls/hr IVPB DAILY [facility] Last Admin: 08/23/16 09:32 Dose: 100 mls/hr Insulin Human Regular (Novolin R) 0 unit SC ACHS [facility] PRN Reason: Protocol Last Admin: 08/23/16 11:32 Dose: Not Given Levothyroxine Sodium (Levothyroxine) 200 mcg IVP DAILY [facility] Last Admin: 08/23/16 11:08 Dose: 200 mcg Lidocaine HCl (Lidocaine 2% Viscous) 15 ml PO TID PRN PRN Reason: Pain, Mild (1-3) Last Admin: 08/15/16 20:01 Dose: 15 ml Metoprolol Tartrate (Lopressor) 2.5 mg IVP Q12 [facility] Last Admin: 08/23/16 09:31 Dose: 2.5 mg Saccharomyces Boulardii (Florastor) 250 mg PO BID [facility] Last Admin: 08/23/16 09:16 Dose: Not Given - Labs Labs: 08/23/16 06:29 08/23/16 06:29 PT 14.7 SECONDS (9.7-12.2) H 08/12/16 06:00 INR 1.3 04/21/17 06:00 APTT 40 SECONDS (21-34) H 08/12/16 06:00
[2016-08-23] MEDS ORDERED: Dextrose 50% SYRINGE Inj (50 ml) IV STA (16:34)
--- NOTE | 2016-08-23 16:42 | CP.PCM.PN ---
Subjective - Date & Time of Evaluation Date of Evaluation: 08/23/16 Time of Evaluation: 16:41 - Subjective Subjective: DETAILED DISCUSSION WITH PATIENT'S DAUGHTER RE MANAGEMENT OF DIALYSIS ACCESS AND NEED FOR ADDITIONAL RX- SURGICAL OR PERCUTANEOUS THROMBECTOMY LEFT ARM SHUNT. NO DECISIONS MADE Objective - Vital Signs/Intake and Output Vital Signs (last 24 hours): Temp Pulse Resp BP Pulse Ox 97.5 F L 76 10 L 140/54 L 100 08/23/16 12:00 08/23/16 13:05 08/23/16 13:08/23/16 13:08/22/16 06:00 - Medications Medications: Current Medications Acetaminophen (Tylenol 650mg/20.3ml Solution Ud) 650 mg PO Q4 PRN PRN Reason: pain Last Admin: 08/21/16 09:48 Dose: 650 mg Epoetin Sly (Procrit) 10,000 unit IV MWF [facility] Last Admin: 08/22/16 13:44 Dose: 10,000 unit Famotidine (Pepcid) 20 mg IVP DAILY [facility] Last Admin: 08/23/16 09:32 Dose: 20 mg Cefepime HCl (Maxipime Iv 1 Gm Premix) 50 mls @ 100 mls/hr IVPB DAILY [facility] Last Admin: 08/23/16 09:32 Dose: 100 mls/hr Insulin Human Regular (Novolin R) 0 unit SC ACHS [facility] PRN Reason: Protocol Last Admin: 08/23/16 11:32 Dose: Not Given Levothyroxine Sodium (Levothyroxine) 200 mcg IVP DAILY [facility] Last Admin: 08/23/16 11:08 Dose: 200 mcg Lidocaine HCl (Lidocaine 2% Viscous) 15 ml PO TID PRN PRN Reason: Pain, Mild (1-3) Last Admin: 08/15/16 20:01 Dose: 15 ml Metoprolol Tartrate (Lopressor) 2.5 mg IVP Q12 [facility] Last Admin: 08/23/16 09:31 Dose: 2.5 mg Saccharomyces Boulardii (Florastor) 250 mg PO BID [facility] Last Admin: 08/23/16 09:16 Dose: Not Given - Labs Labs: 08/23/16 06:29 08/23/16 06:29 PT 14.7 SECONDS (9.7-12.2) H 08/12/16 06:00 INR 1.3 08/12/16 06:00 APTT 40 SECONDS (21-34) H 08/12/16 06:00
--- NOTE | 2016-08-23 18:52 | RAD ---
HISTORY: s/p chest tube removal COMPARISON: Chest x-ray performed earlier the same day TECHNIQUE: Chest, one view. FINDINGS: LUNGS: Extensive opacification within the right sera thorax may reflect combination of consolidative changes in loculated pleural effusion. No definite pneumothorax. Right peritracheal opacity persists. Please note that chest x-ray has limited sensitivity for the detection of pulmonary masses. CARDIOVASCULAR: Median sternotomy wires. Cardiomegaly. Evidence of CABG. OSSEOUS STRUCTURES: Osseous demineralization. Degenerative changes. VISUALIZED UPPER ABDOMEN: Unremarkable. OTHER FINDINGS: Skin tony, right chest. Left axillary vascular stent. IMPRESSION: Interval removal of right-sided chest tube. Extensive opacification within the right sera thorax may reflect combination of consolidative changes in loculated pleural effusion. Right peritracheal opacity persists.
[2016-08-24] MEDS: (Novolin R) Insulin Human Regular 100 units/ml vial SC SCH ×4 (07:30→21:24)
--- NOTE | 2016-08-24 08:36 | CP.PCM.PN ---
Subjective - Date & Time of Evaluation Date of Evaluation: 08/24/16 Time of Evaluation: 08:34 - Subjective Subjective: Surgery: Dr. Soto/Dr. Buck Patient remains same. S/p chest tube removal. Patient received HD through catheter. Tolerated. Long discussion with daughter about AV shunt malfunction however she remains undecided on how to proceed with intervention at this time. Per nursing no acute events overnight. Objective - Vital Signs/Intake and Output Vital Signs (last 24 hours): Temp Pulse Resp BP Pulse Ox 97.2 F L 90 16 134/62 98 08/24/16 08:00 08/24/16 08:00 08/24/16 08:00 08/24/16 08:00 08/24/16 08:00 Intake and Output: 08/24/16 08/24/16 06:59 18:59 Intake Total 0 Output Total 1 Balance -1 0 - Medications Medications: Current Medications Acetaminophen (Tylenol 650mg/20.3ml Solution Ud) 650 mg PO Q4 PRN PRN Reason: pain Last Admin: 08/21/16 09:48 Dose: 650 mg Epoetin Sly (Procrit) 10,000 unit IV MWF [facility] Last Admin: 08/22/16 13:44 Dose: 10,000 unit Famotidine (Pepcid) 20 mg IVP DAILY [facility] Last Admin: 08/23/16 09:32 Dose: 20 mg Cefepime HCl (Maxipime Iv 1 Gm Premix) 50 mls @ 100 mls/hr IVPB DAILY [facility] Last Admin: 08/23/16 09:32 Dose: 100 mls/hr Insulin Human Regular (Novolin R) 0 unit SC ACHS [facility] PRN Reason: Protocol Last Admin: 08/23/16 22:02 Dose: Not Given Levothyroxine Sodium (Levothyroxine) 200 mcg IVP DAILY [facility] Last Admin: 08/23/16 11:08 Dose: 200 mcg Lidocaine HCl (Lidocaine 2% Viscous) 15 ml PO TID PRN PRN Reason: Pain, Mild (1-3) Last Admin: 08/15/16 20:01 Dose: 15 ml Metoprolol Tartrate (Lopressor) 2.5 mg IVP Q12 [facility] Last Admin: 08/23/16 21:24 Dose: 2.5 mg Saccharomyces Boulardii (Florastor) 250 mg PO BID [facility] Last Admin: 08/23/16 18:21 Dose: Not Given - Labs Labs: 08/23/16 06:29 08/23/16 06:29 PT 14.7 SECONDS (9.7-12.2) H 08/12/16 06:00 INR 1.3 08/12/16 06:00 APTT 40 SECONDS (21-34) H 08/12/16 06:00 - Constitutional Appears: Confused, Cachectic, Chronically Ill - Head Exam Head Exam: ATRAUMATIC, NORMOCEPHALIC - ENT Exam ENT Exam: Mucous Membranes Dry - Respiratory Exam Respiratory Exam: absent: Respiratory Distress Additional comments: s/p chest tube removal, dressing minimally saturated w/ SA drainage. - Cardiovascular Exam Cardiovascular Exam: REGULAR RHYTHM. absent: Tachycardia - Neurological Exam Neurological Exam: Altered - Skin Skin Exam: Dry, Warm Assessment and Plan - Assessment and Plan (Free Text) Assessment: 75 y/o female s/p chest tube removal as well as malfunctioning AV graft Plan: -daughter still undecided about AV graft procedure due to needing sedation -will discuss further -recommending intervention for AV graft whether done by IR or in OR -no further thoracic surgical intervention required at this time -further recs per Dr. Soto and Dr. Buck AKJohnson PGY1
--- NOTE | 2016-08-24 09:05 | RAD ---
HISTORY: right chest tube COMPARISON: 08/23/2016 FINDINGS: LUNGS: Moderate loculated right pleural effusion with prominent consolidative changes in the right mid to lower lung zone. Right hilar prominence. Right paratracheal airspace opacity. Patchy increased markings at the left lung base. PLEURA: As above. CARDIOVASCULAR: Status post median sternotomy and CABG. Cardiomegaly. Left axillary stent in place. OSSEOUS STRUCTURES: Degenerative changes in the spine and shoulders. VISUALIZED UPPER ABDOMEN: Normal. OTHER FINDINGS: None. IMPRESSION: No significant interval change.
[2016-08-24] MEDS: Cefepime IV 1 gm in Dextrose 50 ML IVPB SCH (09:29)
[2016-08-24] MEDS: Metoprolol 1 mg/ml Inj IVP SCH ×2 (10:00→21:26)
[2016-08-24] MEDS: Saccharomyces Boulardi 250 mg Cap PO SCH ×2 (10:00→18:53)
--- NOTE | 2016-08-24 11:10 | CP.PCM.PN ---
Subjective - Date & Time of Evaluation Date of Evaluation: 08/24/16 Time of Evaluation: 11:06 - Subjective Subjective: On dialysis now- Uf only 500ml as intake poor Family has refused permcath insertion or AV F thrombectomy Patient remains confused- cannot answer questions CT removed Objective - Vital Signs/Intake and Output Vital Signs (last 24 hours): Temp Pulse Resp BP Pulse Ox 97.2 F L 90 16 111/48 L 98 08/24/16 08:00 08/24/16 09:25 08/24/16 09:25 08/24/16 09:55 08/24/16 08:00 Intake and Output: 08/24/16 08/24/16 06:59 18:59 Intake Total 0 Output Total 1 Balance -1 0 - Medications Medications: Current Medications Acetaminophen (Tylenol 650mg/20.3ml Solution Ud) 650 mg PO Q4 PRN PRN Reason: pain Last Admin: 08/21/16 09:48 Dose: 650 mg Epoetin Sly (Procrit) 10,000 unit IV MWF [facility] Last Admin: 08/22/16 13:44 Dose: 10,000 unit Famotidine (Pepcid) 20 mg IVP DAILY [facility] Last Admin: 08/23/16 09:32 Dose: 20 mg Insulin Human Regular (Novolin R) 0 unit SC ACHS [facility] PRN Reason: Protocol Last Admin: 08/24/16 07:30 Dose: Not Given Levothyroxine Sodium (Levothyroxine) 200 mcg IVP DAILY [facility] Last Admin: 08/23/16 11:08 Dose: 200 mcg Lidocaine HCl (Lidocaine 2% Viscous) 15 ml PO TID PRN PRN Reason: Pain, Mild (1-3) Last Admin: 08/15/16 20:01 Dose: 15 ml Metoprolol Tartrate (Lopressor) 2.5 mg IVP Q12 [facility] Last Admin: 08/23/16 21:24 Dose: 2.5 mg Saccharomyces Boulardii (Florastor) 250 mg PO BID [facility] Last Admin: 08/23/16 18:21 Dose: Not Given - Labs Labs: 08/23/16 06:29 08/23/16 06:29 PT 14.7 SECONDS (9.7-12.2) H 08/12/16 06:00 INR 1.3 08/12/16 06:00 APTT 40 SECONDS (21-34) H 08/12/16 06:00 - Constitutional Appears: Confused, Chronically Ill - Head Exam Head Exam: ATRAUMATIC, NORMAL INSPECTION - Eye Exam Eye Exam: EOMI, Normal appearance - Neck Exam Neck Exam: Normal Inspection. absent: Tenderness - Respiratory Exam Respiratory Exam: Clear to Ausculation Bilateral, NORMAL BREATHING PATTERN - Cardiovascular Exam Cardiovascular Exam: REGULAR RHYTHM, +S1 - GI/Abdominal Exam GI & Abdominal Exam: Soft. absent: Tenderness - Extremities Exam Extremities Exam: Normal Inspection. absent: Tenderness - Neurological Exam Neurological Exam: Awake, CN II-XII Intact - Skin Skin Exam: Dry, Warm Assessment and Plan (1) Diabetes mellitus Status: Acute (2) CHF (congestive heart failure) Status: Chronic (3) Secondary hyperparathyroidism Status: Acute (4) ESRD (end stage renal disease) on dialysis Status: Chronic (5) Hydropneumothorax Status: Acute - Assessment and Plan (Free Text) Plan: Decrease UF rate Would need new dialysis access- permcath or av f thrombectomy- prior to discharge Continue same meds
[2016-08-24] MEDS: Epoetin Alfa 10,000 unit/ml Dialysis IV SCH (11:18)
[2016-08-24] MEDS: Levothyroxine 200 mcg (0.2 mg) Inj IVP SCH (16:37)
--- NOTE | 2016-08-24 22:56 | PN ---
DATE: 08/24/2016 TIME: 11:00 a.m. The patient is receiving hemodialysis today. Post-hemodialysis, the patient is still having confusio n. Family is at bedside. Family is concerned about the femoral hemodialysis catheter, as well as th e AV shunt. We will get the interventional radiologist evaluation for possible shunt revision if pos sible. We will get also a Doppler of the left arm. The patient is still confused, delirious, not fo llowing commands. The patient is not eating well. PHYSICAL EXAMINATION: VITAL SIGNS: Temperature 99, pulse 101, blood pressure 119/86, respirations 20. CLINICAL EXAMINATION: Unremarkable, except confusion and delirium. The patient is not mumbling some words. Left heel ulcer. Otherwise nonspecific. ASSESSMENT AND RECOMMENDATIONS: A 75-year-old female with history of heart failure, end-stage renal disease on dialysis complicated with ongoing illness including recurrent right pleural effusion, thor acentesis, status post blood transfusion. Overall, prognosis is poor, but I spoke to the patient's d westley in details. The patient's daughter wants to take her home and we will try to plan possibly i n a day or 2. Joe Bliss MD cc: [id number] TT: 08/24/2016 22:55:26 Confirmation # [id number] Dictation # [id number] surendra
[2016-08-25 06:42] LABS: BASO # 0.1 K/uL (0.0-0.2); BASO % 1.2 % (0.0-2.0); EOS # 0.1 K/uL (0.0-0.7); EOS % 1.1 % (0.0-4.0); HEMATOCRIT 29.1 % (34.0-47.0); LYMPH # 0.9 K/uL (1.0-4.3); LYMPH % 9.6 % (20.0-40.0); MEAN CELL VOLUME 96.7 fL (81.0-99.0); MEAN CORPUSCULAR HEMOGLOBIN 31.5 pg (27.0-31.0); MEAN CORPUSCULAR HGB CONC 32.5 g/dL (33.0-37.0); MEAN PLATELET VOLUME 9.3 fL (7.2-11.7); MONO # 1.5 K/uL (0.0-0.8); MONO % 15.6 % (0.0-10.0); NRBC % 0.2 % (0.0-2.0); PLATELET COUNT 156 K/uL (130-400); RED CELL DISTRIBUTION WIDTH 21.2 % (11.5-14.5); WHITE BLOOD COUNT 9.4 K/uL (4.8-10.8)
[2016-08-25 06:44] LABS: POTASSIUM 3.4 mmol/L (3.6-5.2)
[2016-08-25 06:46] LABS: ALB/GLOB RATIO 0.6 (1.0-2.1); BILIRUBIN,TOTAL 2.4 mg/dL (0.2-1.3); TOTAL PROTEIN 6.4 g/dL (6.3-8.3)
[2016-08-25 07:14] LABS: THYROID STIMULATING HORMONE 1.13 mIU/L (0.46-4.68)
[2016-08-25] MEDS: (Novolin R) Insulin Human Regular 100 units/ml vial SC SCH ×4 (08:25→21:48)
[2016-08-25 09:02] LABS: TOTAL CELLS COUNTED 100
[2016-08-25 09:04] LABS: NEUTROPHIL 76 % (50-75)
[2016-08-25 09:06] LABS: GIANT PLATELETS PRESENT
--- NOTE | 2016-08-25 10:18 | CP.PCM.PN ---
Subjective - Date & Time of Evaluation Date of Evaluation: 08/25/16 Time of Evaluation: 10:15 - Subjective Subjective: More confused, more dyspneic Family has insisted on less UF with dialysis Daughter will agree with thrombectomy Discussed grave situation with daughter Objective - Vital Signs/Intake and Output Vital Signs (last 24 hours): Temp Pulse Resp BP Pulse Ox 98.5 F 93 H 11 L 119/65 99 08/25/16 08:00 08/25/16 08:03 08/25/16 08:03 08/25/16 08:03 08/25/16 08:03 Intake and Output: 08/25/16 08/25/16 06:59 18:59 Intake Total 240 Output Total 2 Balance 238 - Medications Medications: Current Medications Acetaminophen (Tylenol 650mg/20.3ml Solution Ud) 650 mg PO Q4 PRN PRN Reason: pain Last Admin: 08/21/16 09:48 Dose: 650 mg Epoetin Sly (Procrit) 10,000 unit IV MWF [facility] Last Admin: 08/24/16 11:18 Dose: 10,000 unit Famotidine (Pepcid) 20 mg IVP DAILY [facility] Last Admin: 08/24/16 16:37 Dose: 20 mg Insulin Human Regular (Novolin R) 0 unit SC ACHS [facility] PRN Reason: Protocol Last Admin: 08/25/16 08:25 Dose: Not Given Levothyroxine Sodium (Levothyroxine) 200 mcg IVP DAILY [facility] Last Admin: 08/24/16 16:37 Dose: 200 mcg Lidocaine HCl (Lidocaine 2% Viscous) 15 ml PO TID PRN PRN Reason: Pain, Mild (1-3) Last Admin: 08/15/16 20:01 Dose: 15 ml Metoprolol Tartrate (Lopressor) 2.5 mg IVP Q12 [facility] Last Admin: 08/24/16 21:26 Dose: 2.5 mg Saccharomyces Boulardii (Florastor) 250 mg PO BID [facility] Last Admin: 08/24/16 18:53 Dose: Not Given - Labs Labs: 08/25/16 06:24 08/25/16 06:24 PT 14.7 SECONDS (9.7-12.2) H 08/12/16 06:00 INR 1.3 08/12/16 06:00 APTT 40 SECONDS (21-34) H 08/12/16 06:00 - Constitutional Appears: Confused, Cachectic, Chronically Ill - Head Exam Head Exam: ATRAUMATIC, NORMAL INSPECTION - Eye Exam Eye Exam: EOMI, Normal appearance - Neck Exam Neck Exam: Normal Inspection. absent: Tenderness - Respiratory Exam Respiratory Exam: Rhonchi, Respiratory Distress - Cardiovascular Exam Cardiovascular Exam: REGULAR RHYTHM, +S1 - GI/Abdominal Exam GI & Abdominal Exam: Soft. absent: Tenderness - Extremities Exam Extremities Exam: Normal Inspection. absent: Tenderness - Neurological Exam Neurological Exam: Awake, CN II-XII Intact - Skin Skin Exam: Dry, Warm Assessment and Plan (1) Diabetes mellitus Status: Acute (2) CHF (congestive heart failure) Status: Chronic (3) Secondary hyperparathyroidism Status: Acute (4) ESRD (end stage renal disease) on dialysis Status: Chronic (5) Hydropneumothorax Status: Acute - Assessment and Plan (Free Text) Plan: Will try increase UF next dialysis Consider AV access thrombectomy with IR Prognosis poor due to multiple co-morbidities
[2016-08-25] MEDS: Levothyroxine 200 mcg (0.2 mg) Inj IVP SCH (10:32)
[2016-08-25] MEDS: Metoprolol 1 mg/ml Inj IVP SCH ×2 (10:32→21:46)
[2016-08-25] MEDS: Saccharomyces Boulardi 250 mg Cap PO SCH ×2 (11:46→17:23)
--- NOTE | 2016-08-25 13:54 | CP.PCM.PN ---
Subjective - Date & Time of Evaluation Date of Evaluation: 08/25/16 Time of Evaluation: 13:53 - Subjective Subjective: Dr. Senior's progress note appreciated. Objective - Vital Signs/Intake and Output Vital Signs (last 24 hours): Temp Pulse Resp BP Pulse Ox 97.5 F L 87 13 114/52 L 98 08/25/16 12:00 08/25/16 12:00 08/25/16 12:00 08/25/16 10:15 08/25/16 12:00 Intake and Output: 08/25/16 08/25/16 06:59 18:59 Intake Total 240 Output Total 2 Balance 238 - Medications Medications: Current Medications Acetaminophen (Tylenol 650mg/20.3ml Solution Ud) 650 mg PO Q4 PRN PRN Reason: pain Last Admin: 08/21/16 09:48 Dose: 650 mg Epoetin Sly (Procrit) 10,000 unit IV MWF [facility] Last Admin: 08/24/16 11:18 Dose: 10,000 unit Famotidine (Pepcid) 20 mg IVP DAILY [facility] Last Admin: 08/25/16 10:31 Dose: 20 mg Insulin Human Regular (Novolin R) 0 unit SC ACHS [facility] PRN Reason: Protocol Last Admin: 08/25/16 13:46 Dose: Not Given Levothyroxine Sodium (Levothyroxine) 200 mcg IVP DAILY [facility] Last Admin: 08/25/16 10:32 Dose: 200 mcg Lidocaine HCl (Lidocaine 2% Viscous) 15 ml PO TID PRN PRN Reason: Pain, Mild (1-3) Last Admin: 08/15/16 20:01 Dose: 15 ml Metoprolol Tartrate (Lopressor) 2.5 mg IVP Q12 [facility] Last Admin: 08/25/16 10:32 Dose: 2.5 mg Saccharomyces Boulardii (Florastor) 250 mg PO BID [facility] Last Admin: 08/25/16 11:46 Dose: Not Given - Labs Labs: 08/25/16 06:24 08/25/16 06:24 PT 14.7 SECONDS (9.7-12.2) H 08/12/16 06:00 INR 1.3 08/12/16 06:00 APTT 40 SECONDS (21-34) H 08/12/16 06:00
--- NOTE | 2016-08-25 15:31 | CP.PCM.PN ---
Subjective - Date & Time of Evaluation Date of Evaluation: 08/25/16 Time of Evaluation: 15:30 - Subjective Subjective: Surgery: Dr. Buck Patient clinically same. No acute events overnight. Objective - Vital Signs/Intake and Output Vital Signs (last 24 hours): Temp Pulse Resp BP Pulse Ox 97.5 F L 87 13 114/52 L 98 08/25/16 12:00 08/25/16 12:00 08/25/16 12:00 08/25/16 10:15 08/25/16 12:00 Intake and Output: 08/25/16 08/25/16 06:59 18:59 Intake Total 240 Output Total 2 Balance 238 - Medications Medications: Current Medications Acetaminophen (Tylenol 650mg/20.3ml Solution Ud) 650 mg PO Q4 PRN PRN Reason: pain Last Admin: 08/21/16 09:48 Dose: 650 mg Epoetin Sly (Procrit) 10,000 unit IV MWF [facility] Last Admin: 08/24/16 11:18 Dose: 10,000 unit Famotidine (Pepcid) 20 mg IVP DAILY [facility] Last Admin: 08/25/16 10:31 Dose: 20 mg Insulin Human Regular (Novolin R) 0 unit SC ACHS [facility] PRN Reason: Protocol Last Admin: 08/25/16 13:46 Dose: Not Given Levothyroxine Sodium (Levothyroxine) 200 mcg IVP DAILY [facility] Last Admin: 08/25/16 10:32 Dose: 200 mcg Lidocaine HCl (Lidocaine 2% Viscous) 15 ml PO TID PRN PRN Reason: Pain, Mild (1-3) Last Admin: 08/15/16 20:01 Dose: 15 ml Metoprolol Tartrate (Lopressor) 2.5 mg IVP Q12 [facility] Last Admin: 08/25/16 10:32 Dose: 2.5 mg Saccharomyces Boulardii (Florastor) 250 mg PO BID [facility] Last Admin: 08/25/16 11:46 Dose: Not Given - Labs Labs: 08/25/16 06:24 08/25/16 06:24 PT 14.7 SECONDS (9.7-12.2) H 08/12/16 06:00 INR 1.3 08/12/16 06:00 APTT 40 SECONDS (21-34) H 08/12/16 06:00 - Constitutional Appears: Confused, Cachectic, Chronically Ill - Head Exam Head Exam: ATRAUMATIC, NORMOCEPHALIC - Respiratory Exam Respiratory Exam: NORMAL BREATHING PATTERN. absent: Respiratory Distress - Cardiovascular Exam Cardiovascular Exam: absent: Tachycardia - Skin Skin Exam: Dry, Intact Assessment and Plan - Assessment and Plan (Free Text) Assessment: 75 y/o female w/ malfunctioning AV shunt Plan: -needs intervention to left arm AV shunt whether done by IR or by vascular surgery -discussed in length with daughter, awaiting decisions -patient can not be discharge with femoral HD catheter -further recs per Dr. Buck [facility] PGY1
--- NOTE | 2016-08-25 19:58 | CP.PCM.PN ---
Subjective - Date & Time of Evaluation Date of Evaluation: 08/25/16 Time of Evaluation: 20:56 - Subjective Subjective: dictated Objective - Vital Signs/Intake and Output Vital Signs (last 24 hours): Temp Pulse Resp BP Pulse Ox 97.4 F L 94 H 21 125/57 L 94 L 08/25/16 16:00 08/25/16 16:03 08/25/16 16:03 08/25/16 16:03 08/25/16 14:07 Intake and Output: 08/25/16 08/26/16 18:59 06:59 Intake Total 200 Balance 200 - Medications Medications: Current Medications Acetaminophen (Tylenol 650mg/20.3ml Solution Ud) 650 mg PO Q4 PRN PRN Reason: pain Last Admin: 08/21/16 09:48 Dose: 650 mg Epoetin Sly (Procrit) 10,000 unit IV MWF [facility] Last Admin: 08/24/16 11:18 Dose: 10,000 unit Famotidine (Pepcid) 20 mg IVP DAILY [facility] Last Admin: 08/25/16 10:31 Dose: 20 mg Insulin Human Regular (Novolin R) 0 unit SC ACHS [facility] PRN Reason: Protocol Last Admin: 08/25/16 17:23 Dose: 2 unit Levothyroxine Sodium (Levothyroxine) 200 mcg IVP DAILY [facility] Last Admin: 08/25/16 10:32 Dose: 200 mcg Lidocaine HCl (Lidocaine 2% Viscous) 15 ml PO TID PRN PRN Reason: Pain, Mild (1-3) Last Admin: 08/15/16 20:01 Dose: 15 ml Metoprolol Tartrate (Lopressor) 2.5 mg IVP Q12 [facility] Last Admin: 08/25/16 10:32 Dose: 2.5 mg Saccharomyces Boulardii (Florastor) 250 mg PO BID [facility] Last Admin: 08/25/16 17:23 Dose: Not Given - Labs Labs: 08/25/16 06:24 08/25/16 06:24 PT 14.7 SECONDS (9.7-12.2) H 08/12/16 06:00 INR 1.3 08/12/16 06:00 APTT 40 SECONDS (21-34) H 08/12/16 06:00 Assessment and Plan (1) ESRD (end stage renal disease) on dialysis Status: Chronic (2) Pleural effusion Status: Acute (3) S/P thoracentesis Status: Acute (4) Hypothermia Status: Acute
--- NOTE | 2016-08-25 21:34 | PN ---
DATE: 08/25/2016 TIME: 6:30 p.m. The patient is currently having somewhat delirious confusion, but sleeping at this time. The patient 's family is at bedside. Some abdominal distention minimally noted. Mild labored breathing noted. Leg swelling minimally noted. Left heel ulcer present. Ecchymosis noted. The patient is currently having dressed wound on the site of the chest tube on the right side chest. Femoral hemodialysis cat heter in the right groin. The patient is not eating well. Appetite is poor. Left arm AV shunt is n ot working at this time. PHYSICAL EXAMINATION: VITAL SIGNS: Temperature 97.6, pulse 86, blood pressure 129/51, respirations 20, saturation is 100% on room air. HEENT: PERRLA. NECK: Supple. CHEST: Good air entry, decreased on the right side. CARDIOVASCULAR: Regular heart sound. ABDOMEN: Nontender. EXTREMITIES: No pedal edema. LABORATORY DATA: No recent chest x-ray today, but yesterday's chest x-ray showing increasing effusio n on the right side. The patient had hemodialysis yesterday. CURRENT MEDICATIONS: Reviewed. Currently, patient is on levothyroxine, metoprolol. Poor appetite noted. Not able to eat. Nutrition-hebert, the patient is extremely low. Currently, patient is having multiple critical issues including occluded left arm AV shunt. Initial attempt to do revision of the AV shunt by the surgeon was declined by the family and I spoke to the f tere in detail about the procedure for interventional radiology and I spoke to Dr. Saman Walker today and explained the need of possibly IR to de-clog the left arm AV shunt. IR will attempt tomorrow to do that, but the patient's daughter does not want to give any anesthesia because of the concern that causes delirium, but I explained to her the necessity for the anesthesia needed because of her restl essness and agitation, but Dr. Saman Walker will speak to the family about the procedure and if possib le. Otherwise, the option can be right-sided permanent hemodialysis catheter and possible removal of the right femoral catheter and discharge plan after that, but overall, patient's condition is worsen ing. The patient is at high risk for respiratory failure and increasing medical problems with worsen ing medical condition and poor prognosis. I explained to the family about the prognosis and problems associated with ongoing symptoms. Possible hemodialysis tomorrow. I will follow up the patient. Joe Bliss MD cc: [id number] TT: 08/25/2016 21:34:23 Confirmation # [id number] Dictation # [id number] rn
[2016-08-26 07:00] LABS: INR 1.4
[2016-08-26] MEDS: (Novolin R) Insulin Human Regular 100 units/ml vial SC SCH ×4 (08:04→22:25)
--- NOTE | 2016-08-26 08:36 | CP.PCM.PN ---
Subjective - Date & Time of Evaluation Date of Evaluation: 08/26/16 Time of Evaluation: 08:34 - Subjective Subjective: Surgery: Dr. Buck Patient clinically remains the same. Patient daughter at bedside today. Discussed provedure for AV shunt. Daughter is agreeable to ID intervention to declot the shunt. Per nursing no acute events overnight. Objective - Vital Signs/Intake and Output Vital Signs (last 24 hours): Temp Pulse Resp BP Pulse Ox 97.6 F 83 16 151/69 H 100 08/26/16 08:00 08/26/16 08:00 08/26/16 08:00 08/26/16 08:00 08/25/16 22:01 Intake and Output: 08/26/16 08/26/16 06:59 18:59 Intake Total 100 Balance 100 - Medications Medications: Current Medications Acetaminophen (Tylenol 650mg/20.3ml Solution Ud) 650 mg PO Q4 PRN PRN Reason: pain Last Admin: 08/21/16 09:48 Dose: 650 mg Epoetin Sly (Procrit) 10,000 unit IV MWF [facility] Last Admin: 08/24/16 11:18 Dose: 10,000 unit Famotidine (Pepcid) 20 mg IVP DAILY [facility] Last Admin: 08/25/16 10:31 Dose: 20 mg Insulin Human Regular (Novolin R) 0 unit SC ACHS [facility] PRN Reason: Protocol Last Admin: 08/26/16 08:04 Dose: Not Given Levothyroxine Sodium (Levothyroxine) 200 mcg IVP DAILY [facility] Last Admin: 08/25/16 10:32 Dose: 200 mcg Lidocaine HCl (Lidocaine 2% Viscous) 15 ml PO TID PRN PRN Reason: Pain, Mild (1-3) Last Admin: 08/15/16 20:01 Dose: 15 ml Metoprolol Tartrate (Lopressor) 2.5 mg IVP Q12 [facility] Last Admin: 08/25/16 21:46 Dose: 2.5 mg Saccharomyces Boulardii (Florastor) 250 mg PO BID [facility] Last Admin: 08/25/16 17:23 Dose: Not Given - Labs Labs: 08/25/16 06:24 08/25/16 06:24 PT 15.4 SECONDS (9.7-12.2) H 08/26/16 06:43 INR 1.4 08/26/16 06:43 APTT 45 SECONDS (21-34) H 08/26/16 06:43 - Constitutional Appears: Non-toxic, No Acute Distress, Cachectic, Chronically Ill - Head Exam Head Exam: ATRAUMATIC, NORMOCEPHALIC - ENT Exam ENT Exam: Mucous Membranes Moist - Respiratory Exam Respiratory Exam: NORMAL BREATHING PATTERN. absent: Respiratory Distress - Neurological Exam Neurological Exam: Awake - Skin Skin Exam: Dry, Warm Assessment and Plan - Assessment and Plan (Free Text) Assessment: 75 y/o female w/ malfunctioning AV shunt Plan: -daughter states ok to proceed with IR intervention regaurding malfunctioning AV shunt -plan for procedure today. -further recs per Dr. Heber Marrero PGY1
[2016-08-26] MEDS ORDERED: Iodixanol 320 MG/ML 100 ML BOTTLE IV ONE (09:33)
--- NOTE | 2016-08-26 10:45 | PCM.SURG1 ---
Surgeon's Initial Post Op Note - Surgeon's Notes Surgeon: Saman Walker MD Driver'S License Examiner: NONE Type of Anesthesia: IV Sedation Pre-Operative Diagnosis: ESRD, Thrombosed left arm AVG Operative Findings: Patent outlfow vein and normal central venogram. Occluded, thrombosed AVG. Stenosis arterial anastamosis. Post-Operative Diagnosis: ESRD, Thrombosed left arm AVG, arterial anastamosis stenosis. Operation Performed: Left arm AVG thrombectomy, INTERIOR WIRER arterial anastamosis with 5 mm balloon. Specimen/Specimens Removed: none Estimated Blood Loss: EBL {In ML}: 5 Blood Products Given: N/A Drains Used: No Drains Post-Op Condition: Fair Date of Surgery/Procedure: 08/26/16 Time of Surgery/Procedure: 10:40
--- NOTE | 2016-08-26 11:22 | RAD ---
HISTORY: Follow-up pleural effusions. Portable study 07:15. COMPARISON: Multiple serial examinations preceding the most recent study: August 24, 2016. 08/22/2016 portable chest with chest tube in the right pleural space. FINDINGS: LUNGS: Stable consolidative changes right lung. PLEURA: Stable row pleural effusion. CARDIOVASCULAR: Stable cardiomegaly OSSEOUS STRUCTURES: No significant abnormalities. VISUALIZED UPPER ABDOMEN: Normal. OTHER FINDINGS: None. IMPRESSION: No significant interval change compared to the prior examination(s).
[2016-08-26] MEDS: Metoprolol 1 mg/ml Inj IVP SCH ×2 (11:38→22:26)
[2016-08-26] MEDS: Levothyroxine 200 mcg (0.2 mg) Inj IVP SCH (11:39)
[2016-08-26] MEDS: Saccharomyces Boulardi 250 mg Cap PO SCH ×2 (11:39→17:31)
--- NOTE | 2016-08-26 12:40 | CP.PCM.PN ---
Subjective - Date & Time of Evaluation Date of Evaluation: 08/26/16 Time of Evaluation: 12:39 - Subjective Subjective: s/p av shunt thrombectomy with ir remains confused daughter at bedside, discussed with her. Objective - Vital Signs/Intake and Output Vital Signs (last 24 hours): Temp Pulse Resp BP Pulse Ox 97.5 F L 73 18 120/51 L 96 08/26/16 12:00 08/26/16 12:00 08/26/16 12:00 08/26/16 12:00 08/26/16 12:00 Intake and Output: 08/26/16 08/26/16 06:59 18:59 Intake Total 100 Balance 100 - Medications Medications: Current Medications Acetaminophen (Tylenol 650mg/20.3ml Solution Ud) 650 mg PO Q4 PRN PRN Reason: pain Last Admin: 08/21/16 09:48 Dose: 650 mg Epoetin Sly (Procrit) 10,000 unit IV MWF [facility] Last Admin: 08/24/16 11:18 Dose: 10,000 unit Famotidine (Pepcid) 20 mg IVP DAILY [facility] Last Admin: 08/26/16 11:38 Dose: 20 mg Insulin Human Regular (Novolin R) 0 unit SC ACHS [facility] PRN Reason: Protocol Last Admin: 08/26/16 11:55 Dose: Not Given Levothyroxine Sodium (Levothyroxine) 200 mcg IVP DAILY [facility] Last Admin: 08/26/16 11:39 Dose: 200 mcg Lidocaine HCl (Lidocaine 2% Viscous) 15 ml PO TID PRN PRN Reason: Pain, Mild (1-3) Last Admin: 08/15/16 20:01 Dose: 15 ml Metoprolol Tartrate (Lopressor) 2.5 mg IVP Q12 [facility] Last Admin: 08/26/16 11:38 Dose: 2.5 mg Saccharomyces Boulardii (Florastor) 250 mg PO BID [facility] Last Admin: 08/26/16 11:39 Dose: Not Given - Labs Labs: 08/25/16 06:24 08/25/16 06:24 PT 15.4 SECONDS (9.7-12.2) H 08/26/16 06:43 INR 1.4 08/26/16 06:43 APTT 45 SECONDS (21-34) H 08/26/16 06:43 - Constitutional Appears: Non-toxic, Confused, Chronically Ill - Head Exam Head Exam: NORMAL INSPECTION - Eye Exam Eye Exam: Normal appearance - ENT Exam ENT Exam: Mucous Membranes Moist, Normal Exam - Neck Exam Neck Exam: Normal Inspection - Respiratory Exam Respiratory Exam: Decreased Breath Sounds, Rales, NORMAL BREATHING PATTERN - Cardiovascular Exam Cardiovascular Exam: REGULAR RHYTHM - GI/Abdominal Exam GI & Abdominal Exam: Distended, Soft, Normal Bowel Sounds - Extremities Exam Extremities Exam: Normal Inspection Additional comments: lue avf w/ thrill Assessment and Plan (1) Hydropneumothorax Status: Acute (2) Hypertension Status: Acute (3) Anemia Status: Chronic (4) ESRD (end stage renal disease) on dialysis Status: Chronic (5) CHF (congestive heart failure) Status: Chronic - Assessment and Plan (Free Text) Assessment: maintain hd , use avf. attempt increased uf as tolerated labs ordered for tomorrow
[2016-08-26 14:39] LABS: BASO # 0.2 K/uL (0.0-0.2); BASO % 1.7 % (0.0-2.0); EOS # 0.1 K/uL (0.0-0.7); EOS % 0.8 % (0.0-4.0); HEMATOCRIT 29.4 % (34.0-47.0); LYMPH # 0.8 K/uL (1.0-4.3); LYMPH % 8.2 % (20.0-40.0); MEAN CELL VOLUME 96.7 fL (81.0-99.0); MEAN CORPUSCULAR HEMOGLOBIN 31.1 pg (27.0-31.0); MEAN CORPUSCULAR HGB CONC 32.2 g/dL (33.0-37.0); MEAN PLATELET VOLUME 9.1 fL (7.2-11.7); MONO # 1.2 K/uL (0.0-0.8); MONO % 12.5 % (0.0-10.0); NRBC % 0.1 % (0.0-2.0); PLATELET COUNT 147 K/uL (130-400); RED CELL DISTRIBUTION WIDTH 20.8 % (11.5-14.5); WHITE BLOOD COUNT 9.2 K/uL (4.8-10.8)
[2016-08-26] MEDS: Epoetin Alfa 10,000 unit/ml Dialysis IV SCH (14:39)
[2016-08-26 14:52] LABS: POTASSIUM 3.6 mmol/L (3.6-5.2)
[2016-08-26 14:54] LABS: BILIRUBIN,TOTAL 3.1 mg/dL (0.2-1.3)
[2016-08-26 14:55] LABS: ALB/GLOB RATIO 0.5 (1.0-2.1); CALCIUM 8.4 mg/dl (8.6-10.4); PHOSPHOROUS 3.9 mg/dL (2.5-4.5); TOTAL PROTEIN 6.6 g/dL (6.3-8.3)
[2016-08-26 14:56] LABS: MAGNESIUM 1.8 mg/dL (1.6-2.3)
[2016-08-26 15:08] LABS: NEUTROPHIL 87 % (50-75); TOTAL CELLS COUNTED 100
--- NOTE | 2016-08-26 22:18 | CP.PCM.PN ---
Subjective - Date & Time of Evaluation Date of Evaluation: 08/26/16 Time of Evaluation: 11:17 - Subjective Subjective: Patient's family is at bedside. Patient is still confused. Not responding as much. Hemodialysis catheter was changed. Family is upset about the altered mental status. Patient has a left heel ulcer Objective - Vital Signs/Intake and Output Vital Signs (last 24 hours): Temp Pulse Resp BP Pulse Ox 97.7 F 80 18 109/46 L 100 08/26/16 17:15 08/26/16 17:15 08/26/16 17:15 08/26/16 17:15 08/26/16 17:15 Intake and Output: 08/26/16 08/27/16 18:59 06:59 Intake Total 180 Output Total 0 Balance 180 Vital signs reviewed No neck vein distention noted Chest good air entry bilaterally, no wheezing or rales noted CVS regular heart sound, no murmur noted Abdomen soft, nontender. Extremities no pedal edema drowsy - Medications Medications: Current Medications Acetaminophen (Tylenol 650mg/20.3ml Solution Ud) 650 mg PO Q4 PRN PRN Reason: pain Last Admin: 08/21/16 09:48 Dose: 650 mg Epoetin Sly (Procrit) 10,000 unit IV MWF [facility] Last Admin: 08/26/16 14:39 Dose: 10,000 unit Famotidine (Pepcid) 20 mg IVP DAILY [facility] Last Admin: 08/26/16 11:38 Dose: 20 mg Insulin Human Regular (Novolin R) 0 unit SC ACHS [facility] PRN Reason: Protocol Last Admin: 08/26/16 16:23 Dose: Not Given Levothyroxine Sodium (Levothyroxine) 200 mcg IVP DAILY [facility] Last Admin: 08/26/16 11:39 Dose: 200 mcg Lidocaine HCl (Lidocaine 2% Viscous) 15 ml PO TID PRN PRN Reason: Pain, Mild (1-3) Last Admin: 08/15/16 20:01 Dose: 15 ml Metoprolol Tartrate (Lopressor) 2.5 mg IVP Q12 [facility] Last Admin: 08/26/16 11:38 Dose: 2.5 mg Saccharomyces Boulardii (Florastor) 250 mg PO BID [facility] Last Admin: 08/26/16 17:31 Dose: Not Given - Labs Labs: 08/26/16 14:34 08/26/16 14:34 PT 15.4 SECONDS (9.7-12.2) H 08/26/16 06:43 INR 1.4 08/26/16 06:43 APTT 45 SECONDS (21-34) H 08/26/16 06:43 Assessment and Plan (1) ESRD (end stage renal disease) on dialysis Status: Chronic (2) Pleural effusion Assessment & Plan: Patient with end-stage renal disease, pleural effusion. Posterior thoracentesis complicated with the he had a pneumothorax. Chest tube. Altered mental status, metabolic encephalopathy. Overall prognosis is guarded Status: Acute (3) S/P thoracentesis Status: Acute (4) Hypothermia Status: Acute
--- NOTE | 2016-08-26 23:11 | PN ---
DATE: 08/26/2016 SUBJECTIVE: The patient is currently sleeping comfortably, much more better than yesterday. She is able to eat a little better today. She had a left arm AV shunt thrombectomy and cannulization. The patient did well. She underwent hemodialysis through that. She still has the right femoral catheter , which will be removed left arm AV shunt is clinically stable. I spoke to the family. Will c ontinue the current treatment. The patient will be getting oral as well as metoprolol. IV dis continued. ASSESSMENT AND RECOMMENDATIONS: A 75-year-old female with a history of heart disease, end-stage yoselin l disease, on dialysis; liver disease, multiorgan failure, admitted with right lung effusion status p ost chest tube, now having increasing again fluid recurrence, possible. Also had severe hypothyroidi sm, clinically improving. Will continue the current treatment and will follow up the patient. Joe Bliss MD cc: [id number] TT: 08/26/2016 23:10:17 Confirmation # [id number] Dictation # [id number] harshal
[2016-08-27] MEDS ORDERED: Levothyroxine 200 MCG TAB PO SCH (06:30)
[2016-08-27] MEDS: (Novolin R) Insulin Human Regular 100 units/ml vial SC SCH ×3 (08:18→16:42)
[2016-08-27] MEDS: Saccharomyces Boulardi 250 mg Cap PO SCH ×2 (10:08→19:57)
--- NOTE | 2016-08-27 11:11 | CP.PCM.PN ---
Subjective - Date & Time of Evaluation Date of Evaluation: 08/27/16 Time of Evaluation: 11:09 - Subjective Subjective: s/p HD used left ezekiel good bruit pt unable to answer questions Objective - Vital Signs/Intake and Output Vital Signs (last 24 hours): Temp Pulse Resp BP Pulse Ox 98 F 88 22 118/49 L 94 L 08/27/16 08:00 08/27/16 08:00 08/27/16 08:00 08/27/16 10:07 08/27/16 08:00 Intake and Output: 08/27/16 08/27/16 06:59 18:59 Intake Total 150 Output Total 0 Balance 150 - Medications Medications: Current Medications Acetaminophen (Tylenol 650mg/20.3ml Solution Ud) 650 mg PO Q4 PRN PRN Reason: pain Last Admin: 08/21/16 09:48 Dose: 650 mg Epoetin Sly (Procrit) 10,000 unit IV MWF [facility] Last Admin: 08/26/16 14:39 Dose: 10,000 unit Famotidine (Pepcid) 20 mg IVP DAILY [facility] Last Admin: 08/27/16 10:08 Dose: 20 mg Insulin Human Regular (Novolin R) 0 unit SC ACHS [facility] PRN Reason: Protocol Last Admin: 08/27/16 08:18 Dose: Not Given Levothyroxine Sodium (Synthroid) 200 mcg PO DAILY@0630 [facility] Last Admin: 08/27/16 07:02 Dose: 200 mcg Lidocaine HCl (Lidocaine 2% Viscous) 15 ml PO TID PRN PRN Reason: Pain, Mild (1-3) Last Admin: 08/15/16 20:01 Dose: 15 ml Metoprolol Tartrate (Lopressor) 25 mg PO BID [facility] Last Admin: 08/27/16 10:07 Dose: 25 mg Saccharomyces Boulardii (Florastor) 250 mg PO BID [facility] Last Admin: 08/27/16 10:08 Dose: 250 mg - Labs Labs: 08/26/16 14:34 08/26/16 14:34 PT 15.4 SECONDS (9.7-12.2) H 08/26/16 06:43 INR 1.4 08/26/16 06:43 APTT 45 SECONDS (21-34) H 08/26/16 06:43 - Constitutional Appears: Confused, Chronically Ill - Eye Exam Eye Exam: EOMI - ENT Exam ENT Exam: Mucous Membranes Moist - Neck Exam Neck Exam: Full ROM. absent: Lymphadenopathy - Respiratory Exam Respiratory Exam: Decreased Breath Sounds. absent: Accessory Muscle Use - GI/Abdominal Exam GI & Abdominal Exam: Soft. absent: Tenderness - Extremities Exam Extremities Exam: absent: Pedal Edema Assessment and Plan - Assessment and Plan (Free Text) Assessment: maint Hd can liberalize K in diet shiley can be removed continue pulmonary toilet
--- NOTE | 2016-08-27 11:47 | CP.PCM.PN ---
Subjective - Date & Time of Evaluation Date of Evaluation: 08/27/16 Time of Evaluation: 11:45 - Subjective Subjective: Surgery: Dr. Buck Patient s/p HD through left arm AVS which was tolerated well. Per nursing no acute events overnight. Objective - Vital Signs/Intake and Output Vital Signs (last 24 hours): Temp Pulse Resp BP Pulse Ox 98 F 88 22 118/49 L 94 L 08/27/16 08:00 08/27/16 08:00 08/27/16 08:00 08/27/16 10:07 08/27/16 08:00 Intake and Output: 08/27/16 08/27/16 06:59 18:59 Intake Total 150 Output Total 0 Balance 150 - Medications Medications: Current Medications Acetaminophen (Tylenol 650mg/20.3ml Solution Ud) 650 mg PO Q4 PRN PRN Reason: pain Last Admin: 08/21/16 09:48 Dose: 650 mg Epoetin Sly (Procrit) 10,000 unit IV MWF [facility] Last Admin: 08/26/16 14:39 Dose: 10,000 unit Famotidine (Pepcid) 20 mg IVP DAILY [facility] Last Admin: 08/27/16 10:08 Dose: 20 mg Insulin Human Regular (Novolin R) 0 unit SC ACHS [facility] PRN Reason: Protocol Last Admin: 08/27/16 08:18 Dose: Not Given Levothyroxine Sodium (Synthroid) 200 mcg PO DAILY@0630 [facility] Last Admin: 08/27/16 07:02 Dose: 200 mcg Lidocaine HCl (Lidocaine 2% Viscous) 15 ml PO TID PRN PRN Reason: Pain, Mild (1-3) Last Admin: 08/15/16 20:01 Dose: 15 ml Metoprolol Tartrate (Lopressor) 25 mg PO BID [facility] Last Admin: 08/27/16 10:07 Dose: 25 mg Saccharomyces Boulardii (Florastor) 250 mg PO BID [facility] Last Admin: 08/27/16 10:08 Dose: 250 mg - Labs Labs: 08/26/16 14:34 08/26/16 14:34 PT 15.4 SECONDS (9.7-12.2) H 08/26/16 06:43 INR 1.4 08/26/16 06:43 APTT 45 SECONDS (21-34) H 08/26/16 06:43 - Constitutional Appears: Non-toxic, Cachectic, Chronically Ill - Head Exam Head Exam: ATRAUMATIC, NORMOCEPHALIC - Respiratory Exam Respiratory Exam: absent: Respiratory Distress Assessment and Plan - Assessment and Plan (Free Text) Assessment: 75 y/o female s/p IR procedure for malfunctioning left arm AVshunt Plan: -Shiley to be removed prior to discharge -cont HD through fistula -no further surgical intervention at this time. -further recs per Dr. Buck [facility] PGY1
[2016-08-27 13:31] LABS: HEMATOCRIT 27.9 % (34.0-47.0); MEAN CELL VOLUME 97.2 fL (81.0-99.0); MEAN CORPUSCULAR HEMOGLOBIN 31.5 pg (27.0-31.0); MEAN CORPUSCULAR HGB CONC 32.4 g/dL (33.0-37.0); MEAN PLATELET VOLUME 8.6 fL (7.2-11.7); RED CELL DISTRIBUTION WIDTH 20.9 % (11.5-14.5); WHITE BLOOD COUNT 10.8 K/uL (4.8-10.8)
[2016-08-27 13:42] LABS: POTASSIUM 3.5 mmol/L (3.6-5.2)
[2016-08-27 13:45] LABS: CALCIUM 8.1 mg/dl (8.6-10.4)
[2016-08-27 17:17] VITALS: BP 129/63; PULSE 77; RESP 18; TEMP 97.4; O2SAT 95
--- NOTE | 2016-08-27 17:56 | CP.PCM.DIS ---
Provider - Provider Date of Admission: 08/08/16 15:40 Attending physician: Joe Bliss MD Time Spent in preparation of Discharge (in minutes): 45 Diagnosis - Discharge Diagnosis (1) ESRD (end stage renal disease) on dialysis Status: Chronic (2) Pleural effusion Status: Acute (3) S/P thoracentesis Status: Acute (4) Hypothermia Status: Acute Hospital Course - Lab Results Lab Results: Micro Results 08/22/16 12:13 Blood-During Dialysis Blood Culture - Final NO GROWTH AFTER 5 DAYS 08/22/16 12:13 Blood-During Dialysis Gram Stain - Final TEST NOT PERFORMED 08/22/16 12:13 Blood-During Dialysis Blood Culture - Final NO GROWTH AFTER 5 DAYS 08/22/16 12:13 Blood-During Dialysis Gram Stain - Final TEST NOT PERFORMED 08/12/16 14:00 Pleural Fluid Gram Stain - Final 08/12/16 14:00 Pleural Fluid Body Fluid Culture - Final No growth. 08/12/16 14:00 Pleural Fluid Fungal Culture - Preliminary NO FUNGUS GROWTH IN 1 WEEK. 08/15/16 13:28 Other: Please Indicate Mycobacterial Culture - Preliminary 08/12/16 Unknown Other: Please Indicate Mycobacterial Culture - Final 08/08/16 Unknown Urine Urine Culture - Final Yeast Species 08/09/16 11:05 Urine,Catheterized Urine Culture - Final No Growth (<1,000 CFU/ML) Most Recent Lab Values WBC 10.8 K/uL (4.8-10.8) 08/27/16 13:27 RBC 2.87 Mil/uL (3.80-5.20) L 08/27/16 13:27 Hgb 9.0 g/dL (11.0-16.0) L 08/27/16 13:27 Hct 27.9 % (34.0-47.0) L 08/27/16 13:27 MCV 97.2 fL (81.0-99.0) 08/27/16 13:27 MCH 31.5 pg (27.0-31.0) H 08/27/16 13:27 MCHC 32.4 g/dL (33.0-37.0) L 08/27/16 13:27 RDW 20.9 % (11.5-14.5) H 08/27/16 13:27 Plt Count 112 K/uL (130-400) L D 08/27/16 13:27 MPV 8.6 fL (7.2-11.7) 08/27/16 13:27 Neut % (Auto) 76.8 % (50.0-75.0) H 08/26/16 14:34 Lymph % (Auto) 8.2 % (20.0-40.0) L 08/26/16 14:34 [place] % (Auto) 12.5 % (0.0-10.0) H 08/26/16 14:34 Eos % (Auto) 0.8 % (0.0-4.0) 08/26/16 14:34 Baso % (Auto) 1.7 % (0.0-2.0) 08/26/16 14:34 Neut # 7.1 K/uL (1.8-7.0) H 08/26/16 14:34 Lymph # 0.8 K/uL (1.0-4.3) L 08/26/16 14:34 [place] # 1.2 K/uL (0.0-0.8) H 08/26/16 14:34 Eos # 0.1 K/uL (0.0-0.7) 08/26/16 14:34 Baso # 0.2 K/uL (0.0-0.2) 08/26/16 14:34 Neutrophils % (Manual) 87 % (50-75) H 08/26/16 14:34 Band Neutrophils % 1 % (0-2) 08/26/16 14:34 Lymphocytes % (Manual) 8 % (20-40) L 08/26/16 14:34 Reactive Lymphs % 1 % (0-0) H 08/21/16 06:53 Monocytes % (Manual) 4 % (0-10) 08/26/16 14:34 Eosinophils % (Manual) 1 % (0-4) 08/22/16 06:32 Basophils % (Manual) 1 % (0-2) 08/12/16 06:00 Myelocytes % TEST NOT PERFORMED 08/21/16 06:53 Nucleated RBC % 1 % (0-0) H 08/14/16 06:29 Toxic Granulation Present 08/16/16 06:34 Platelet Estimate Normal (NORMAL) 08/26/16 14:34 Large Platelets Present 08/23/16 06:29 Giant Platelets Present 08/25/16 06:24 Polychromasia Slight 08/26/16 14:34 Hypochromasia (manual) Slight 08/26/16 14:34 Poikilocytosis (manual Slight 08/25/16 06:24 Anisocytosis (manual) Moderate 08/26/16 14:34 Microcytosis (manual) Slight 08/23/16 06:29 Macrocytosis (manual) Slight 08/26/16 14:34 Target Cells Slight 08/17/16 06:18 Tear Drop Cells Slight 08/26/16 14:34 Ovalocytes Slight 08/21/16 06:53 Melia Cells Slight 08/25/16 06:24 Rouleaux Slight 08/13/16 23:29 Schistocytes Slight 08/13/16 06:19 PT 15.4 SECONDS (9.7-12.2) H 08/26/16 06:43 INR 1.4 08/26/16 06:43 APTT 45 SECONDS (21-34) H 08/26/16 06:43 pO2 32 mm/Hg (30-55) 08/08/16 14:25 VBG pH 7.31 (7.32-7.43) L 08/08/16 14:25 VBG pCO2 55 mmHg (40-60) 08/08/16 14:25 VBG HCO3 24.1 mmol/L 08/08/16 14:25 VBG Total CO2 29.4 mmol/L (22-28) H 08/08/16 14:25 VBG O2 Sat (Calc) 60.4 % (40-65) 08/08/16 14:25 VBG Base Excess 0.4 mmol/L (0.0-2.0) 08/08/16 14:25 VBG Potassium 3.6 mmol/L (3.6-5.2) 08/08/16 14:25 Sodium 135.0 mmol/l (132-148) 08/08/16 14:25 Chloride 102.0 mmol/L (98-107) 08/08/16 14:25 Glucose 131 mg/dl (65-105) H 08/08/16 14:25 Lactate 1.7 mmol/L (0.7-2.1) 08/08/16 14:25 Sodium 133 mmol/L (132-148) 08/27/16 13:27 Potassium 3.5 mmol/L (3.6-5.2) L 08/27/16 13:27 Chloride 93 mmol/L (98-107) L 08/27/16 13:27 Carbon Dioxide 33 mmol/L (22-30) H 08/27/16 13:27 Anion Gap 11 (10-20) 08/27/16 13:27 BUN 15 mg/dL (7-17) 08/27/16 13:27 Creatinine 2.0 MG/DL (0.7-1.2) H 08/27/16 13:27 Est GFR ( Amer) 30 08/27/16 13:27 Est GFR (Non-Af Amer) 24 08/27/16 13:27 POC Glucose (mg/dL) 189 mg/dL (65-110) H 08/27/16 16:14 Random Glucose 135 mg/dL (65-105) H 08/27/16 13:27 Calcium 8.1 mg/dl (8.6-10.4) L 08/27/16 13:27 Phosphorus 3.9 mg/dL (2.5-4.5) 08/26/16 14:34 Magnesium 1.8 mg/dL (1.6-2.3) 08/26/16 14:34 % Saturation 41 (20-55) 08/12/16 09:03 Ferritin 428.0 ng/mL 08/12/16 06:05 Total Bilirubin 3.1 mg/dL (0.2-1.3) H 08/26/16 14:34 AST 28 U/L (14-36) 08/26/16 14:34 ALT 25 U/L (9-52) 08/26/16 14:34 Alkaline Phosphatase 216 U/L (38-126) H 08/26/16 14:34 Total Protein 6.6 g/dL (6.3-8.3) 08/26/16 14:34 Albumin 2.2 g/dL (3.5-5.0) L 08/26/16 14:34 Globulin 4.4 gm/dL (2.2-3.9) H 08/26/16 14:34 Albumin/Globulin Ratio 0.5 (1.0-2.1) L 08/26/16 14:34 Procalcitonin 0.40 NG/ML (0.19-0.49) 08/21/16 13:29 Free T4 0.77 ng/dL (0.78-2.19) L 08/11/16 10:46 TSH 3rd Generation 1.13 mIU/L (0.46-4.68) 08/25/16 06:24 Venous Blood Potassium 3.6 mmol/L (3.6-5.2) 08/08/16 14:25 Urine Color Sheela (YELLOW) 08/08/16 15:20 Urine Clarity Hazy (Clear) 08/08/16 15:20 Urine pH 6.0 (5.0-8.0) 08/08/16 15:20 Ur Specific [place] 1.014 (1.003-1.030) 08/08/16 15:20 Urine Protein 2+ mg/dL (NEGATIVE) H 08/08/16 15:20 Urine Glucose (UA) Normal mg/dL (Normal) 08/08/16 15:20 Urine Ketones Negative mg/dL (NEGATIVE) 08/08/16 15:20 Urine Blood 3+ (NEGATIVE) H 08/08/16 15:20 Urine Nitrate Negative (NEGATIVE) 08/08/16 15:20 Urine Bilirubin Negative (NEGATIVE) 08/08/16 15:20 Urine Urobilinogen Normal mg/dL (0.2-1.0) 08/08/16 15:20 Ur Leukocyte Esterase 3+ Phoebe/uL (Negative) H 08/08/16 15:20 Urine WBC (Auto) 461 /hpf (0-5) H 08/08/16 15:20 Urine RBC (Auto) 294 /hpf (0-3) H 08/08/16 15:20 Urine WBC Clumps (Auto) Few /hpf (NONE) H 08/08/16 15:20 Ur Squamous Epith Cells 7 /hpf (0-5) H 08/08/16 15:20 Urine Bacteria Occ (<OCC) H 08/08/16 15:20 Fluid Source Pleural 08/12/16 15:26 Fluid Appearance Bloody (CLEAR) 08/12/16 15:26 Fluid WBC 9602.0 /mm3 (0.0-300.0) H 08/12/16 15:26 Fluid RBC 1133729.0 /mm3 (0.0-0.0) H 08/12/16 15:26 Fluid Tot Cell Count 100 (0-0) H 08/12/16 15:26 Fluid Neutrophils 80.0 % (0-0) H 08/12/16 15:26 Fluid Lymphocytes 17.0 % (0-0) H 08/12/16 15:26 Fld Monocyte/Macrophag 3 % (0-0) H 08/12/16 15:26 Fluid Comment TEST NOT PERFORMED 08/12/16 15:26 Pleural Total Protein 10.9 g/dL 08/12/16 15:22 Pleural LDH 5867 U/L 08/12/16 15:22 Pleural Glucose 83 mg/dL 08/12/16 15:22 Pleural Amylase TNP 08/12/16 15:22 Stool Occult Blood Negative (NEGATIVE) 08/15/16 22:30 Serum Ketones Negative (NEGATIVE) 08/08/16 15:27 Blood Type B POSITIVE 08/12/16 08:34 Antibody Screen Negative 08/12/16 08:34 - Hospital Course Hospital Course: 75-year-old female with history of CAD, coronary it to bypass grafting, complicated with renal insufficiency, end-stage renal disease on dialysis, recurrent pleural effusion on the right lung. Patient admitted to the hospital through the emergency room because of the hypothermia, altered mental status, and also in shock stage. Patient was initially admitted to the intensive care unit with a severe hypothermia, possible sepsis, and the right lung collapse. Patient had a large right pleural effusion. Course in the hospital. Patient was hospitalized to the intensive care unit. Thoracentesis was attempted to the right lung, posterior thoracentesis patient developed a hydropneumothorax. Condition complicated. Patient underwent chest tube. Following the chest tube patient developed a significant bleeding, received a transfusion. Meanwhile having overall mental status also decreasing because of the metabolic encephalopathy. Patient also had an episode of severe hypothyroidism, and hypothyroidism related altered mental status. With medications patient symptoms improved. But patient was not eating well. Poor appetite present. Patient meanwhile developed a left heel ulcer. Chest tube was removed, slowly her condition got improved. I spoke to the patient's family in details. Patient can be discharged home. Patient will get home health aide, visiting nurse, wound care treatment. I spoke to the family in details Final diagnosis: Congestive heart failure, end-stage renal disease on dialysis, right-sided pleural effusion, lung collapse, hydropneumothorax, hemithorax, hemothorax, altered mental status, metabolic in several today, sepsis, left arm AV shunt fistula occlusion, placement of AV catheter. Patient also underwent AV fistula repair. Tachycardia hypertension hypothyroidism myxedema coma. Bleeding and DIC blood transfusion. Discharge Exam - Head Exam Head Exam: ATRAUMATIC, NORMOCEPHALIC Discharge Plan - Discharge Medications Prescriptions: Ursodiol [Actigall] 300 mg PO BID #60 cap Saccharomyces Boulardi [Florastor] 250 mg PO BID #60 cap Omeprazole 40 mg PO DAILY #30 capsule. Calcium Acetate [Phoslo] 667 mg PO TIDCC #90 tab Levothyroxine [Synthroid] 200 mcg PO DAILY@0630 #30 tab - Follow Up Plan Condition: STABLE Disposition: DISCHARGED TO HOME CARE Instructions: Urinary Tract Infection in Women (DC), Renal Failure Diet (DC), Diabetes Mellitus Type 2 in Adults (DC), Meal Planning with the Plate Method (DC ), Hypertension (DC), Hypertension (GEN) Additional Instructions: Follow up with Dr. Bliss at his office on September 02. Referrals: Joe Bliss MD [Staff Provider] -
[2016-08-27] MEDS ORDERED: Pneumococcal 23-Valent Vaccine IM ONE (19:04)
--- NOTE | 2016-08-30 13:51 | SPECPROC ---
PROCEDURE: Date of procedure: 08/26/2016 Procedure: Hemodialysis fistulagram, CPT 34423 Thrombectomy, Balloon angioplasty arterial anastomosis 50 % stenosis Medications: Patient received a IV sedation administered by the anesthesiologist along with physiologic monitoring. Heparin 4000 units. HISTORY: Endstage renal disease, thrombosed left arm AV fistula. TECHNIQUE: Following informed consent and procedure time-out, the patient was placed on the interventional table in the left arm prepped and draped in the usual sterile fashion. Ultrasound of left arm showed a showed thrombosed loop graft. The graft was accessed directed towards arterial anastomosis with micropuncture technique under direct ultrasound guidance. A guidewire was advanced into the axillary artery and the 5 fr dilator was exchanged for a 6 [place]e vascular sheath. There is some difficulty advancing the wire beyond the arterial anastomosis. The graft was then accessed directed towards the outflow vein with micropuncture technique under direct ultrasound guidance. A guidewire is advanced into the superior vena cava. A 6 [place] sheath was advanced over the wire. A 5 [place] catheter was advanced into the subclavian vein central venogram performed. Central venogram showed unremarkable subclavian vein innominate vein and superior vena cava. A 5 [place] catheter was positioned in the axillary artery and axillary artery angiogram performed. Axillary artery angiogram showed no flow into the graft and significant thrombus throughout the graft. 5 millimeter x 4 centimeter balloon catheter was positioned over the wire near the arch anastomosis and balloon angioplasty was performed demonstrating a visible waist. Arterial anastomosis stenosis is estimated to be approximately 50 percent. Following prolonged percutaneous balloon angioplasty using a 5 millimeter balloon, there is complete resolution of stenosis. A Gwen compliant balloon was position near the arterial anastomosis, inflated and thrombus was pulled into the graft. The Gwen balloon was reposition within the arterial limb of the graft inflated and thrombus was pushed centrally. Following the pull-push technique of thrombectomy, a repeat fistulogram showed great forward flow throughout the AV graft with no residual thrombus within the graft. The central venogram showed good flow. FINDINGS: Left AV graft fistulagram showed thrombosis of the graft. 50 percent perianastomotic stenosis successfully treated with 5 millimeter percutaneous balloon angioplasty. Successful thrombectomy of the left AV graft with improved flow throughout the graft with no residual thrombus.
== END 2016-08-27 19:55 | disposition home health service (06) | DRG 252 ==
LOC: C.ER 13:05 → C.5T 15:40 → C.9E 17:05 → C.9I 17:10 → C.5T 08-27 17:12
PROVIDERS: ADMIT Internal Medicine; ATTEND Internal Medicine
PROC: 5A1D60Z (ICD-10-PCS; principal; 2016-08-09)
PROC: 0W993ZZ Drainage of Right Pleural Cavity, Percutaneous Approach (ICD-10-PCS; 2016-08-09)
PROC: BB4BZZZ Ultrasonography of Pleura (ICD-10-PCS; 2016-08-09)
PROC: 0WJ Anatomical Regions, General, Inspection (ICD-10-PCS; 2016-08-22)
PROC: 0W9900Z Drainage of Right Pleural Cavity with Drainage Device, Open Approach (ICD-10-PCS; 2016-08-22)
PROC: 03CY3ZZ Extirpation of Matter from Upper Artery, Percutaneous Approach (ICD-10-PCS; 2016-08-26)
PROC: 037Y3ZZ Dilation of Upper Artery, Percutaneous Approach (ICD-10-PCS; 2016-08-26)
DX: I13.2 Hypertensive heart and chronic kidney disease with heart failure and with stage 5 chronic kidney disease, or end stage renal disease (principal); N18.6 End stage renal disease; J94.8 Other specified pleural conditions; T82.868A Thrombosis due to vascular prosthetic devices, implants and grafts, initial encounter; N39.0 Urinary tract infection, site not specified; E87.1 Hypo-osmolality and hyponatremia; J98.11 Atelectasis; I50.9 Heart failure, unspecified; E11.22 Type 2 diabetes mellitus with diabetic chronic kidney disease; E11.649 Type 2 diabetes mellitus with hypoglycemia without coma; I25.5 Ischemic cardiomyopathy; I25.10 Atherosclerotic heart disease of native coronary artery without angina pectoris; R41.82 Altered mental status, unspecified; R00.1 Bradycardia, unspecified; E78.5 Hyperlipidemia, unspecified; E03.9 Hypothyroidism, unspecified; R68.0 Hypothermia, not associated with low environmental temperature; D64.9 Anemia, unspecified; Z99.2 Dependence on renal dialysis; Z95.1 Presence of aortocoronary bypass graft; Z95.5 Presence of coronary angioplasty implant and graft; Z79.4 Long term (current) use of insulin

== ENCOUNTER 2016-10-25 15:33 | Inpatient (IN) | payer BC ==
[2016-10-25 15:33] VITALS: BMI 23.1
--- NOTE | 2016-10-25 15:44 | C.PDOC ---
History Of Present Illness 76F brought from SNF for rectal bleeding that started yesterday, worsened today. she arrived on 4mcg levophed via PICC. per daughter the pt received 1unit blood today and they were going to give a 2nd but decided to transport her here first. Time Seen by Provider: 10/25/16 15:44 Chief Complaint (Nursing): GI Problem Past Medical History Vital Signs: Last Vital Signs Temp 98.7 F 10/25/16 19:00 Pulse 84 10/25/16 19:00 Resp 24 10/25/16 19:00 BP 114/49 L 10/25/16 19:00 Pulse Ox 100 10/25/16 19:00 - Medical History PMH: CHF, HTN, Hypercholesterolemia, Hyperlipidemia, Hypothyroidism, Peripheral Edema, End Stage Renal Disease, Chronic Kidney Disease Denies: Crohn's Disease, Diverticulitis Surgical History: CABG (2001), Coronary Stent (x3 in 2006) - [facility] Procedures BYPASS LEFT BRACHIAL ARTERY TO UPPER ARM VEIN, OPEN APPROACH (11/27/15) DILATION OF L AXILLA VEIN WITH INTRALUM DEV, PERC APPROACH (11/27/15) DILATION OF RIGHT URETER WITH INTRALUMINAL DEVICE, ENDO (11/27/15) DILATION OF UPPER ARTERY, PERCUTANEOUS APPROACH (08/08/16) DRAINAGE OF R PLEURAL CAV WITH DRAIN DEV, OPEN APPROACH (08/08/16) DRAINAGE OF RIGHT PLEURAL CAVITY, PERCUTANEOUS APPROACH (08/08/16) EXTIRPATION OF MATTER FROM UPPER ARTERY, PERC APPROACH (08/08/16) FLUOROSCOPY OF DIALYSIS SHUNT/FISTULA USING OTHER CONTRAST (02/20/16) FLUOROSCOPY OF KIDNEY, URETER & BLADDER USING OTH CONTRAST (11/27/15) INSERT INFUSION DEV IN R INT JUGULAR VEIN, PERC (11/27/15) INSPECTION OF RIGHT PLEURAL CAVITY, OPEN APPROACH (08/08/16) PERFORMANCE OF URINARY FILTRATION, MULTIPLE (08/08/16) REMOVAL OF INFUSION DEVICE FROM UPPER VEIN, OPEN APPROACH (11/27/15) REMOVAL OF INTRALUMINAL DEVICE FROM URETER, ENDO (11/27/15) TRANSFUSE NONAUT RED BLOOD CELLS IN PERIPH VEIN, PERC (11/27/15) ULTRASONOGRAPHY OF PLEURA (08/08/16) Family History: States: Unknown Family Hx - Social History Hx Tobacco Use: No Hx Alcohol Use: No Hx Substance Use: No - Immunization History Hx Tetanus Toxoid Vaccination: No Hx Influenza Vaccination: No (NOT SURE) Hx Pneumococcal Vaccination: No (NOT SURE) Review Of Systems Review Of Systems: ROS cannot be obtained secondary to pt's inabilty to answer questions. Physical Exam - Physical Exam Appears: Toxic Skin: Warm, Dry Eye(s): bilateral: PERRL Nose: No Epistaxis Oral Mucosa: Dry Lips: No Swelling Neck: Other (trach in place) Cardiovascular: Rhythm Regular Respiratory: No Rales, No Rhonchi, No Wheezing Gastrointestinal/Abdominal: Soft Rectal: Other (BRBPR) Extremity: Swelling Extremity: Left: Other (ganagrene left heel) Pulses: Right Radial: Normal Neurological/Psych: Other (alert) ED Course And Treatment - Laboratory Results Result Diagrams: 10/25/16 16:33 10/25/16 16:33 Critical Care Time - Critical Care Note Total Time (in mins): 60 Documented critical care: time excludes all time spent performing seperately billable procedures. Medical Decision Making Medical Decision Making: EKG: Sinus Rhythm 91, left axis deviation, no STEMI [address] Yordy [facility] ICU 1642 consulted GI- disc w fellow Dr Yordy zelaya the pt in the ED Disc doris Blsis Disposition - Disposition Disposition: HOSPITALIZED Disposition Time: 16:20 Condition: CRITICAL - Clinical Impression Clinical Impression: Lower GI bleed
[2016-10-25] MEDS ORDERED: Sodium Chloride 0.9% 1,000 ML IV ONE (15:48)
[2016-10-25] MEDS ORDERED: Piperacill/Tazo 3.375gm in Dex 3.375 GM/50 ML BAG IVPB STA (16:17)
[2016-10-25 16:39] LABS: BASO # 0.3 K/uL (0.0-0.2); EOS # 0.1 K/uL (0.0-0.7); EOS % 0.3 % (0.0-4.0); HEMATOCRIT 26.3 % (34.0-47.0); LYMPH # 1.8 K/uL (1.0-4.3); LYMPH % 7.2 % (20.0-40.0); MEAN CORPUSCULAR HEMOGLOBIN 32.7 pg (27.0-31.0); MEAN CORPUSCULAR HGB CONC 32.7 g/dL (33.0-37.0); MEAN PLATELET VOLUME 10.2 fL (7.2-11.7); MONO # 1.6 K/uL (0.0-0.8); MONO % 6.5 % (0.0-10.0); NRBC % 0.1 % (0.0-2.0); PLATELET COUNT 161 K/uL (130-400); RED CELL DISTRIBUTION WIDTH 24.7 % (11.5-14.5); WHITE BLOOD COUNT 25.2 K/uL (4.8-10.8)
[2016-10-25 16:47] LABS: CHLORIDE 96 mmol/L (98-107); POTASSIUM 3.7 mmol/L (3.6-5.2); SODIUM 132 mmol/L (132-148)
[2016-10-25 16:48] LABS: INR 1.6
[2016-10-25 16:49] LABS: ALB/GLOB RATIO 0.5 (1.0-2.1); ALKALINE PHOSPHATASE 214 U/L (38-126); AST/SGOT 38 U/L (14-36); BILIRUBIN,TOTAL 8.3 mg/dL (0.2-1.3); CARBON DIOXIDE 24 mmol/L (22-30); GFR AFRICAN-AMERICAN 36; TOTAL PROTEIN 6.6 g/dL (6.3-8.3)
[2016-10-25 16:50] LABS: ALT/SGPT 26 U/L (9-52); BLOOD UREA NITROGEN 42 mg/dL (7-17); CALCIUM 8.3 mg/dl (8.6-10.4); GLUCOSE,RANDOM 334 mg/dL (65-105)
[2016-10-25] MEDS ORDERED: Protamine 50mg/5mL Inj IV ONE (16:50)
[2016-10-25 17:04] LABS: METAMYELOCYTE 3 % (0-0); MYELOCYTE 4 % (0-0); NEUTROPHIL 78 % (50-75); TOTAL CELLS COUNTED 100
[2016-10-25] MEDS ORDERED: SODIUM CHLORIDE 0.9% IV ONE (17:13)
[2016-10-25] MEDS ORDERED: DESMOPRESSIN IV ONE (17:13)
--- NOTE | 2016-10-25 17:15 | RAD ---
HISTORY: ams COMPARISON: Comparison made with prior chest radiograph 08/26/2016 FINDINGS: LUNGS: Re- demonstrated is slightly improved right lower lobe opacity which may represent some combination of atelectasis/infiltrate and effusion. There may be some minimal left basilar atelectasis PLEURA: No no, no pneumothorax apparent. CARDIOVASCULAR: Sternotomy wires, CABG clips and cardiomegaly again noted. The Old healed fracture deformity right humeral head and neck OSSEOUS STRUCTURES: VISUALIZED UPPER ABDOMEN: Normal. OTHER FINDINGS: Interval placement tracheostomy tube in good position. NGT is present, the tip of which has not been included on this film though distal aspect does lie well below EG junction. Right-sided PICC line is present with tip in the SVC. IMPRESSION: Support lines and tubes as above. Re- demonstrated is slightly improved right lower lobe opacity which may represent some combination of atelectasis/infiltrate and effusion. There is some minimal left basilar atelectasis
--- NOTE | 2016-10-25 18:26 | CP.PCM.CON ---
History of Present Illness - History of Present Illness History of Present Illness: Reason for consultation: GI bleeding 76 y/o F with pmh of CABG, AVF (left), stent placements x 3, HTN, ESRD, IDDM, Hypothyroidism presented to emergency room for rectal bleeding that started yesterday, worsened today. she arrived on 4mcg levophed via PICC. per daughter the pt received 1unit blood today and they were going to give a 2nd but decided to transport her to hosp. Pt s/p trach on vent support Review of Systems - Review of Systems All systems: reviewed and no additional remarkable complaints except (on vent support) Past Patient History - Infectious Disease Hx of Infectious Diseases: None - Past Medical History & Family History Past Medical History?: Yes - Past Social History Smoking Status: Never Smoked - CARDIAC Hx Congestive Heart Failure: Yes Hx Hypercholesterolemia: Yes Hx Hypertension: Yes Hx Peripheral Edema: Yes - PULMONARY Other/Comment: hx of thoracentesis - NEUROLOGICAL Hx Neurological Disorder: Yes Other/Comment: [place] - HEENT Hx HEENT Problems: Yes Other/Comment: hard of hearing - RENAL Hx Chronic Kidney Disease: Yes - ENDOCRINE/METABOLIC Hx Hypothyroidism: Yes - HEMATOLOGICAL/ONCOLOGICAL Hx Blood Disorders: No - INTEGUMENTARY Hx Dermatological Problems: No - MUSCULOSKELETAL/RHEUMATOLOGICAL Hx Musculoskeletal Disorders: No Hx Falls: No - GASTROINTESTINAL Hx Crohn's Disease: No Hx Diverticulitis: No - GENITOURINARY/GYNECOLOGICAL Hx Genitourinary Disorders: Yes Hx Incontinence: Yes Hx Urinary Tract Infection: Yes (2006) Other/Comment: ureteral stent placed 06/2015 - PSYCHIATRIC Hx Substance Use: No - SURGICAL HISTORY Hx Coronary Artery Bypass Graft: Yes (2001) Hx Coronary Stent: Yes (x3 in 2006) - ANESTHESIA Hx Anesthesia: Yes Hx Anesthesia Reactions: No Hx Malignant Hyperthermia: No Meds Allergies/Adverse Reactions: Allergies Allergy/AdvReac Type Severity Reaction Status Date / Time Sulfa (Sulfonamide Allergy RASH Verified 10/25/16 15:46 Antibiotics) - Medications Medications: Current Medications Norepinephrine Bitartrate 4 mg (/ Dextrose) 254 mls @ 7.62 mls/hr IV .Q24H PRN ; Protocol; 2 MCG/MIN PRN Reason: TITRATE PER MD ORDER Last Admin: 10/25/16 16:32 Dose: 7.62 mls/hr Pantoprazole Sodium 80 mg/ (Sodium Chloride) 100 mls @ 10 mls/hr IVP .Q10H REKHA PRN Reason: 8 MG/HR Physical Exam - Head Exam Head Exam: ATRAUMATIC, NORMOCEPHALIC - ENT Exam ENT Exam: Mucous Membranes Moist - Neck Exam Additional comments: trach - Respiratory Exam Respiratory Exam: Clear to Auscultation Bilateral - Cardiovascular Exam Cardiovascular Exam: REGULAR RHYTHM - GI/Abdominal Exam GI & Abdominal Exam: Normal Bowel Sounds - Extremities Exam Extremities exam: Positive for: normal inspection - Neurological Exam Neurological exam: Alert Results - Vital Signs Recent Vital Signs: Last Vital Signs Temp 98.3 F 10/25/16 17:53 Pulse 86 10/25/16 17:53 Resp 24 10/25/16 17:53 BP 120/51 L 10/25/16 17:53 Pulse Ox 100 10/25/16 17:53 - Labs Result Diagrams: 10/25/16 16:33 10/25/16 16:33 Labs: Laboratory Results - last 24 hr 10/25/16 10/25/16 10/25/16 16:33 16:33 16:33 WBC 25.2 H D RBC 2.63 L Hgb 8.6 L Hct 26.3 L MCV 100.0 H D MCH 32.7 H MCHC 32.7 L RDW 24.7 H Plt Count 161 MPV 10.2 Neut % (Auto) 85.0 H Lymph % (Auto) 7.2 L [place] % (Auto) 6.5 Eos % (Auto) 0.3 Baso % (Auto) 1.0 Neut # 21.4 H Lymph # 1.8 [place] # 1.6 H Eos # 0.1 Baso # 0.3 H Neutrophils % (Manual) 78 H Band Neutrophils % 2 Lymphocytes % (Manual) 6 L Monocytes % (Manual) 7 Metamyelocytes % 3 H Myelocytes % 4 H Platelet Estimate Normal Hypochromasia (manual) Slight Poikilocytosis (manual Slight Anisocytosis (manual) Slight Target Cells Slight PT 18.0 H INR 1.6 APTT 49 H Sodium 132 Potassium 3.7 Chloride 96 L Carbon Dioxide 24 Anion Gap 16 BUN 42 H Creatinine 1.7 H Est GFR ( Amer) 36 Est GFR (Non-Af Amer) 29 Random Glucose 334 H Calcium 8.3 L Total Bilirubin 8.3 H AST 38 H D ALT 26 Alkaline Phosphatase 214 H Troponin I < 0.0120 Total Protein 6.6 Albumin 2.1 L Globulin 4.5 H Albumin/Globulin Ratio 0.5 L Stool Occult Blood Blood Type Antibody Screen Crossmatch 10/25/16 10/25/16 16:33 17:00 WBC RBC Hgb Hct MCV MCH MCHC RDW Plt Count MPV Neut % (Auto) Lymph % (Auto) [place] % (Auto) Eos % (Auto) Baso % (Auto) Neut # Lymph # [place] # Eos # Baso # Neutrophils % (Manual) Band Neutrophils % Lymphocytes % (Manual) Monocytes % (Manual) Metamyelocytes % Myelocytes % Platelet Estimate Hypochromasia (manual) Poikilocytosis (manual Anisocytosis (manual) Target Cells PT INR APTT Sodium Potassium Chloride Carbon Dioxide Anion Gap BUN Creatinine Est GFR ( Amer) Est GFR (Non-Af Amer) Random Glucose Calcium Total Bilirubin AST ALT Alkaline Phosphatase Troponin I Total Protein Albumin Globulin Albumin/Globulin Ratio Stool Occult Blood Positive H Blood Type B POSITIVE Antibody Screen Negative Crossmatch See Detail Assessment & Plan (1) Lower GI bleed Status: Acute Comment: DDAVP 13mcg. f/u CBC. Transfuse PRBC. Proponix. GI eval (2) Leucocytosis Status: Acute Comment: cont antibiotics. f/u c&s. large rt Pleural effusion (3) CKD (chronic kidney disease) stage 3, GFR 30-59 ml/min Status: Acute (4) ESRD (end stage renal disease) on dialysis Status: Chronic
[2016-10-25] MEDS: Pantoprazole 80 MG in Sodium Chloride 0.9% 100 ML IVP SCH (18:33)
[2016-10-25] MEDS: Meropenem 500 MG in Sodium Chloride 0.9% 100 ML IVPB SCH (19:15)
[2016-10-25] MEDS: Vancomycin 125 MG/5 ML SOLN (ORAL/RECTAL) PO SCH (19:20)
[2016-10-25 21:14] LABS: HEMATOCRIT 29.5 % (34.0-47.0); MEAN CELL VOLUME 97.7 fL (81.0-99.0); MEAN CORPUSCULAR HGB CONC 32.7 g/dL (33.0-37.0); RED CELL DISTRIBUTION WIDTH 21.2 % (11.5-14.5)
[2016-10-25] MEDS ORDERED: (Novolin R) Insulin Human Regular 100 units/ml vial SC SCH (22:00)
--- NOTE | 2016-10-26 | CP.PCM.HP ---
History of Present Illness - History of Present Illness History of Present Illness: Patient has a history of CAD, stent in the past, hypertension, end-stage renal disease on dialysis, recurrent pleural effusion, hypothyroidism, diabetes. Recurrent right-sided pleural effusion. Recurrent thoracentesis. Surgical history: Coronary artery bypass grafting, stent in the past, hysterectomy, stent in the urethral area Patient also has a history of congestive heart failure Multiple hospitalization. Allergy sulfa mites Patient is a lifelong nonsmoker nonalcoholic Review of system: Patient is having minimal distress. On tracheostomy, ventilator. Opening her eyes Spontaneously. Responding. On examination: Currently on norepinephrine drip low-dose. Vital signs reviewed Mild tachycardia, mild hypertension Chest decreased air entry on the right lung. Regular heart sound. Abdominal distention bilaterally noted Edema bilaterally noted, redness in the legs noted Sacral decubiti stage II. Left leg. Ulcer PICC line on the right upper extremity, left arm AV shunt Labs reviewed Chest x-ray showing evidence of right pleural effusion. In the emergency room patient received a protamine, also DDAVP to reduce the bleeding. Currently the bleeding is much controlled. Assessment/condition: 74-year-old female with history of CAD, stent, coronary it to bypass grafting, Hypertension, end-stage renal disease on dialysis diabetes hypothyroidism recurrent pleural effusion. Metabolic encephalopathy. We'll continue to monitor the glucose. Now admitted with acute GI bleed. Rectal bleeding. Recurring blood transfusion. We will monitor the H&H. GI evaluation. Nephrology evaluation. Cardiology evaluation. Patient is currently on ventilator. U the ventilator. I spoke to the patient's family in detail. Patient may need a colonoscopy evaluation. Will follow the patient. Present on Admission - Present on Admission Any Indicators Present on Admission: No History of Uncontrolled Diabetes: No Urinary Catheter: No Decubitus Ulcer Present: Yes (sacral) Decubitus Ulcer Location: sacral and left heel Past Patient History - Infectious Disease Hx of Infectious Diseases: None - Past Medical History & Family History Past Medical History?: Yes - Past Social History Smoking Status: Never Smoked - CARDIAC Hx Congestive Heart Failure: Yes Hx Hypercholesterolemia: Yes Hx Hypertension: Yes Hx Peripheral Edema: Yes - PULMONARY Hx Respiratory Disorders: Yes Other/Comment: hx of thoracentesis,recurrent pleural effusion - NEUROLOGICAL Hx Neurological Disorder: No - HEENT Hx HEENT Problems: Yes Other/Comment: hard of hearing - RENAL Hx Chronic Kidney Disease: Yes - ENDOCRINE/METABOLIC Hx Hypothyroidism: Yes - HEMATOLOGICAL/ONCOLOGICAL Hx Blood Disorders: No - INTEGUMENTARY Hx Dermatological Problems: No - MUSCULOSKELETAL/RHEUMATOLOGICAL Hx Musculoskeletal Disorders: No Hx Falls: No - GASTROINTESTINAL Hx Crohn's Disease: No Hx Diverticulitis: No - GENITOURINARY/GYNECOLOGICAL Hx Genitourinary Disorders: Yes Hx Urinary Tract Infection: Yes (2006) Other/Comment: ureteral stent placed 06/2015 - PSYCHIATRIC Hx Substance Use: No - SURGICAL HISTORY Hx Coronary Artery Bypass Graft: Yes (2001) Hx Coronary Stent: Yes (x3 in 2006) - ANESTHESIA Hx Anesthesia: Yes Hx Anesthesia Reactions: No Hx Malignant Hyperthermia: No Meds Allergies/Adverse Reactions: Allergies Allergy/AdvReac Type Severity Reaction Status Date / Time Sulfa (Sulfonamide Allergy RASH Verified 10/25/16 15:46 Antibiotics) Results - Vital Signs Recent Vital Signs: Last Vital Signs Temp 98.7 F 10/25/16 19:25 Pulse 82 10/25/16 19:25 Resp 18 10/25/16 19:25 BP 117/48 L 10/25/16 19:25 Pulse Ox 100 10/25/16 19:25 - Labs Result Diagrams: 10/25/16 21:10 10/25/16 16:33 Labs: Laboratory Results - last 24 hr 10/25/16 10/25/16 10/25/16 16:33 16:33 16:33 WBC 25.2 H D RBC 2.63 L Hgb 8.6 L Hct 26.3 L MCV 100.0 H D MCH 32.7 H MCHC 32.7 L RDW 24.7 H Plt Count 161 MPV 10.2 Neut % (Auto) 85.0 H Lymph % (Auto) 7.2 L [place] % (Auto) 6.5 Eos % (Auto) 0.3 Baso % (Auto) 1.0 Neut # 21.4 H Lymph # 1.8 [place] # 1.6 H Eos # 0.1 Baso # 0.3 H Neutrophils % (Manual) 78 H Band Neutrophils % 2 Lymphocytes % (Manual) 6 L Monocytes % (Manual) 7 Metamyelocytes % 3 H Myelocytes % 4 H Platelet Estimate Normal Hypochromasia (manual) Slight Poikilocytosis (manual Slight Anisocytosis (manual) Slight Target Cells Slight PT 18.0 H INR 1.6 APTT 49 H Sodium 132 Potassium 3.7 Chloride 96 L Carbon Dioxide 24 Anion Gap 16 BUN 42 H Creatinine 1.7 H Est GFR ( Amer) 36 Est GFR (Non-Af Amer) 29 POC Glucose (mg/dL) Random Glucose 334 H Calcium 8.3 L Total Bilirubin 8.3 H Direct Bilirubin AST 38 H D ALT 26 Alkaline Phosphatase 214 H Troponin I < 0.0120 Total Protein 6.6 Albumin 2.1 L Globulin 4.5 H Albumin/Globulin Ratio 0.5 L Stool Occult Blood Blood Type Antibody Screen Crossmatch 10/25/16 10/25/16 10/25/16 16:33 17:00 21:10 WBC 28.0 H RBC 3.01 L Hgb 9.6 L Hct 29.5 L MCV 97.7 D MCH 32.0 H MCHC 32.7 L RDW 21.2 H Plt Count 148 MPV 10.0 Neut % (Auto) Lymph % (Auto) [place] % (Auto) Eos % (Auto) Baso % (Auto) Neut # Lymph # [place] # Eos # Baso # Neutrophils % (Manual) Band Neutrophils % Lymphocytes % (Manual) Monocytes % (Manual) Metamyelocytes % Myelocytes % Platelet Estimate Hypochromasia (manual) Poikilocytosis (manual Anisocytosis (manual) Target Cells PT INR APTT Sodium Potassium Chloride Carbon Dioxide Anion Gap BUN Creatinine Est GFR ( Amer) Est GFR (Non-Af Amer) POC Glucose (mg/dL) Random Glucose Calcium Total Bilirubin Direct Bilirubin AST ALT Alkaline Phosphatase Troponin I Total Protein Albumin Globulin Albumin/Globulin Ratio Stool Occult Blood Positive H Blood Type B POSITIVE Antibody Screen Negative Crossmatch See Detail 10/25/16 10/25/16 21:10 21:52 WBC RBC Hgb Hct MCV MCH MCHC RDW Plt Count MPV Neut % (Auto) Lymph % (Auto) [place] % (Auto) Eos % (Auto) Baso % (Auto) Neut # Lymph # [place] # Eos # Baso # Neutrophils % (Manual) Band Neutrophils % Lymphocytes % (Manual) Monocytes % (Manual) Metamyelocytes % Myelocytes % Platelet Estimate Hypochromasia (manual) Poikilocytosis (manual Anisocytosis (manual) Target Cells PT INR APTT Sodium Potassium Chloride Carbon Dioxide Anion Gap BUN Creatinine Est GFR ( Amer) Est GFR (Non-Af Amer) POC Glucose (mg/dL) 283 H Random Glucose Calcium Total Bilirubin Direct Bilirubin 7.3 H AST ALT Alkaline Phosphatase Troponin I Total Protein Albumin Globulin Albumin/Globulin Ratio Stool Occult Blood Blood Type Antibody Screen Crossmatch
[2016-10-26] MEDS: Vancomycin 125 MG/5 ML SOLN (ORAL/RECTAL) PO SCH ×4 (01:09→18:16)
[2016-10-26] MEDS: Pantoprazole 80 MG in Sodium Chloride 0.9% 100 ML IVP SCH (05:00)
[2016-10-26] MEDS: Levothyroxine 200 MCG TAB PO SCH (06:08)
[2016-10-26 06:43] LABS: BASO # 0.2 K/uL (0.0-0.2); EOS # 0.1 K/uL (0.0-0.7); EOS % 0.4 % (0.0-4.0); HEMATOCRIT 29.1 % (34.0-47.0); LYMPH # 1.5 K/uL (1.0-4.3); LYMPH % 7.1 % (20.0-40.0); MEAN CELL VOLUME 97.8 fL (81.0-99.0); MEAN CORPUSCULAR HEMOGLOBIN 32.4 pg (27.0-31.0); MEAN CORPUSCULAR HGB CONC 33.1 g/dL (33.0-37.0); MEAN PLATELET VOLUME 10.1 fL (7.2-11.7); MONO # 1.3 K/uL (0.0-0.8); MONO % 5.8 % (0.0-10.0); PLATELET COUNT 167 K/uL (130-400); RED CELL DISTRIBUTION WIDTH 22.1 % (11.5-14.5); WHITE BLOOD COUNT 21.7 K/uL (4.8-10.8)
[2016-10-26 07:02] LABS: POTASSIUM 3.7 mmol/L (3.6-5.2)
[2016-10-26 07:04] LABS: BILIRUBIN,TOTAL 8.8 mg/dL (0.2-1.3)
[2016-10-26 07:05] LABS: ALB/GLOB RATIO 0.5 (1.0-2.1); TOTAL PROTEIN 6.6 g/dL (6.3-8.3)
[2016-10-26 07:06] LABS: CALCIUM 8.3 mg/dl (8.6-10.4); MAGNESIUM 1.7 mg/dL (1.6-2.3)
[2016-10-26 08:05] LABS: MYELOCYTE 1 % (0-0); NEUTROPHIL 88 % (50-75); TOTAL CELLS COUNTED 100
[2016-10-26] MEDS: (Novolin R) Insulin Human Regular 100 units/ml vial SC SCH ×3 (08:22→18:00)
[2016-10-26] MEDS ORDERED: Home Med 1 UNIT (Meropenem [Merrem Iv] 500 MG) IVPB SCH (10:00)
[2016-10-26] MEDS ORDERED: PROTEIN HYDR PO SCH (10:00)
[2016-10-26] MEDS ORDERED: FIBER PO SCH (10:00)
[2016-10-26] MEDS ORDERED: AMINO ACIDS PO SCH (10:00)
[2016-10-26] MEDS ORDERED: PRO STAT PO SCH (10:00)
--- NOTE | 2016-10-26 10:14 | CP.PCM.CON ---
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 Per pt's daughter they noticed bright blood per rectum and large amounts of blood clots and it progressively worsened. Pt was started on Levophed and given 1 U PRBCs at [facility]. In ER, pt was witnessed to have BRBPR and started on IV protonix drip. Pt has a remote hx of colonoscopy in [place]. Also, pt was found to have elated bilirumbin adn when asked daughter she reports that her baseline is 3 and was as high as 10 at [facility] were she was started on antifungal drug. Will attempt to get MR from [facility]. Per nursing over night, pt had moderate BM this morning with bright blood mixed in stool. Pt's Hgb on presentation was 8.6 and now is 9.6 after blood transfusion. Pt has an NGT in place with no signs of bleeding. Per daughter NGT has been in place for 1 month and plan is to eventually get a PEG however there are concerns with placing a PEG tube as pt has abdominal edema from fluid overload so her GI doctor is waiting on ideal volume status. ROS:A 12pt ROS attempted but unable to be obtained 2/2 AMS PmHx: as stated in HPI PsHX:trach,thoracentesis, AVF, chest tube FHx:unable to be obtained 2/2 AMS SHx: unable to be obtained 2/2 AMS Review of Systems - Review of Systems Systems not reviewed;Unavailable: Altered Mental Status, Intubated Review of Systems: Unable to be obtained 2/2 AMS Past Patient History - Infectious Disease Hx of Infectious Diseases: None - Past Medical History & Family History Past Medical History?: Yes - Past Social History Smoking Status: Never Smoked - CARDIAC Hx Congestive Heart Failure: Yes Hx Hypercholesterolemia: Yes Hx Hypertension: Yes Hx Peripheral Edema: Yes - PULMONARY Hx Respiratory Disorders: Yes Other/Comment: hx of thoracentesis,recurrent pleural effusion - NEUROLOGICAL Hx Neurological Disorder: No - HEENT Hx HEENT Problems: Yes Other/Comment: hard of hearing - RENAL Hx Chronic Kidney Disease: Yes - ENDOCRINE/METABOLIC Hx Hypothyroidism: Yes - HEMATOLOGICAL/ONCOLOGICAL Hx Blood Disorders: No - INTEGUMENTARY Hx Dermatological Problems: No - MUSCULOSKELETAL/RHEUMATOLOGICAL Hx Musculoskeletal Disorders: No Hx Falls: No - GASTROINTESTINAL Hx Crohn's Disease: No Hx Diverticulitis: No - GENITOURINARY/GYNECOLOGICAL Hx Genitourinary Disorders: Yes Hx Urinary Tract Infection: Yes (2006) Other/Comment: ureteral stent placed 06/2015 - PSYCHIATRIC Hx Substance Use: No - SURGICAL HISTORY Hx Coronary Artery Bypass Graft: Yes (2001) Hx Coronary Stent: Yes (x3 in 2006) - ANESTHESIA Hx Anesthesia: Yes Hx Anesthesia Reactions: No Hx Malignant Hyperthermia: No Meds Allergies/Adverse Reactions: Allergies Allergy/AdvReac Type Severity Reaction Status Date / Time Sulfa (Sulfonamide Allergy RASH Verified 10/25/16 15:46 Antibiotics) - Medications Medications: Current Medications Famotidine (Pepcid) 20 mg NG DAILY [facility] Home Med (Amino Acids/Protein Hydr/Fiber [Pro-Stat Renal Care Liquid Pkt]) 30 ml PO DAILY [facility] Home Med (Pro-Stat 101) 30 ml PO DAILY [facility] Norepinephrine Bitartrate 4 mg (/ Dextrose) 254 mls @ 7.62 mls/hr IV .Q24H PRN ; Protocol; 2 MCG/MIN PRN Reason: TITRATE PER MD ORDER Last Admin: 10/25/16 16:32 Dose: 7.62 mls/hr Pantoprazole Sodium 80 mg/ (Sodium Chloride) 100 mls @ 10 mls/hr IVP .Q10H REKHA PRN Reason: 8 MG/HR Last Admin: 10/26/16 05:00 Dose: 10 mls/hr Meropenem 500 mg/ Sodium (Chloride) 100 mls @ 100 mls/hr IVPB Q24H [facility] Last Admin: 10/25/16 19:15 Dose: 100 mls/hr Insulin Human Regular (Novolin R) 0 unit SC Q6 REKHA PRN Reason: Protocol Last Admin: 10/26/16 08:22 Dose: 2 unit Levothyroxine Sodium (Synthroid) 200 mcg PO DAILY@0630 [facility] Last Admin: 10/26/16 06:08 Dose: 200 mcg Lorazepam (Ativan) 1 mg IVP Q4 PRN PRN Reason: Agitation Vancomycin HCl (Vancocin (Oral Or Rectal Use)) 125 mg PO Q6H REKHA Last Admin: 10/26/16 06:07 Dose: 125 mg Physical Exam - Constitutional Appears: Confused, Chronically Ill - Head Exam Head Exam: ATRAUMATIC, NORMAL INSPECTION, NORMOCEPHALIC - Eye Exam Eye Exam: Scleral icterus Pupil Exam: PERRL - ENT Exam ENT Exam: Mucous Membranes Dry, Normal External Ear Exam - Neck Exam Additional comments: s/p trach - Respiratory Exam Respiratory Exam: Decreased Breath Sounds, Respiratory Distress Additional comments: On vent support - Cardiovascular Exam Cardiovascular Exam: REGULAR RHYTHM, +S1, Systolic Murmur - GI/Abdominal Exam GI & Abdominal Exam: Normal Bowel Sounds, Soft, Tenderness. absent: Distended, Guarding, Organomegaly, Rebound, Rigid - Rectal Exam Additional comments: On rectal exam, bright blood with small amount of brown stool. External hemorrhoids. Sacral wounds - Extremities Exam Extremities exam: Negative for: pedal edema Additional comments: no edema - Back Exam Additional comments: Sacral/buttock wounds - Neurological Exam Additional comments: Pt not responsive, unable to follow commands - Psychiatric Exam Additional comments: unable to assess - Skin Skin Exam: Dry, Warm Results - Vital Signs Recent Vital Signs: Last Vital Signs Temp 100.4 F H 10/26/16 08:00 Pulse 97 H 10/26/16 09:30 Resp 33 H 10/26/16 09:30 BP 105/44 L 10/26/16 09:01 Pulse Ox 100 10/26/16 09:30 - Labs Result Diagrams: 10/26/16 06:38 10/26/16 06:38 Labs: Laboratory Results - last 24 hr 10/25/16 10/25/16 10/25/16 16:33 16:33 16:33 WBC 25.2 H D RBC 2.63 L Hgb 8.6 L Hct 26.3 L MCV 100.0 H D MCH 32.7 H MCHC 32.7 L RDW 24.7 H Plt Count 161 MPV 10.2 Neut % (Auto) 85.0 H Lymph % (Auto) 7.2 L [place] % (Auto) 6.5 Eos % (Auto) 0.3 Baso % (Auto) 1.0 Neut # 21.4 H Lymph # 1.8 [place] # 1.6 H Eos # 0.1 Baso # 0.3 H Neutrophils % (Manual) 78 H Band Neutrophils % 2 Lymphocytes % (Manual) 6 L Monocytes % (Manual) 7 Metamyelocytes % 3 H Myelocytes % 4 H Platelet Estimate Normal Polychromasia Hypochromasia (manual) Slight Poikilocytosis (manual Slight Anisocytosis (manual) Slight Macrocytosis (manual) Target Cells Slight PT 18.0 H INR 1.6 APTT 49 H Sodium 132 Potassium 3.7 Chloride 96 L Carbon Dioxide 24 Anion Gap 16 BUN 42 H Creatinine 1.7 H Est GFR ( Amer) 36 Est GFR (Non-Af Amer) 29 POC Glucose (mg/dL) Random Glucose 334 H Calcium 8.3 L Phosphorus Magnesium Total Bilirubin 8.3 H Direct Bilirubin AST 38 H D ALT 26 Alkaline Phosphatase 214 H Troponin I < 0.0120 Total Protein 6.6 Albumin 2.1 L Globulin 4.5 H Albumin/Globulin Ratio 0.5 L Stool Occult Blood Blood Type Antibody Screen Crossmatch 10/25/16 10/25/16 10/25/16 16:33 17:00 21:10 WBC 28.0 H RBC 3.01 L Hgb 9.6 L Hct 29.5 L MCV 97.7 D MCH 32.0 H MCHC 32.7 L RDW 21.2 H Plt Count 148 MPV 10.0 Neut % (Auto) Lymph % (Auto) [place] % (Auto) Eos % (Auto) Baso % (Auto) Neut # Lymph # [place] # Eos # Baso # Neutrophils % (Manual) Band Neutrophils % Lymphocytes % (Manual) Monocytes % (Manual) Metamyelocytes % Myelocytes % Platelet Estimate Polychromasia Hypochromasia (manual) Poikilocytosis (manual Anisocytosis (manual) Macrocytosis (manual) Target Cells PT INR APTT Sodium Potassium Chloride Carbon Dioxide Anion Gap BUN Creatinine Est GFR ( Amer) Est GFR (Non-Af Amer) POC Glucose (mg/dL) Random Glucose Calcium Phosphorus Magnesium Total Bilirubin Direct Bilirubin AST ALT Alkaline Phosphatase Troponin I Total Protein Albumin Globulin Albumin/Globulin Ratio Stool Occult Blood Positive H Blood Type B POSITIVE Antibody Screen Negative Crossmatch See Detail 10/25/16 10/25/16 10/26/16 21:10 21:52 00:58 WBC RBC Hgb Hct MCV MCH MCHC RDW Plt Count MPV Neut % (Auto) Lymph % (Auto) [place] % (Auto) Eos % (Auto) Baso % (Auto) Neut # Lymph # [place] # Eos # Baso # Neutrophils % (Manual) Band Neutrophils % Lymphocytes % (Manual) Monocytes % (Manual) Metamyelocytes % Myelocytes % Platelet Estimate Polychromasia Hypochromasia (manual) Poikilocytosis (manual Anisocytosis (manual) Macrocytosis (manual) Target Cells PT INR APTT Sodium Potassium Chloride Carbon Dioxide Anion Gap BUN Creatinine Est GFR ( Amer) Est GFR (Non-Af Amer) POC Glucose (mg/dL) 283 H 251 H Random Glucose Calcium Phosphorus Magnesium Total Bilirubin Direct Bilirubin 7.3 H AST ALT Alkaline Phosphatase Troponin I Total Protein Albumin Globulin Albumin/Globulin Ratio Stool Occult Blood Blood Type Antibody Screen Crossmatch 10/26/16 10/26/16 10/26/16 06:31 06:38 06:38 WBC 21.7 H RBC 2.98 L Hgb 9.6 L Hct 29.1 L MCV 97.8 MCH 32.4 H MCHC 33.1 RDW 22.1 H Plt Count 167 MPV 10.1 Neut % (Auto) 85.7 H Lymph % (Auto) 7.1 L [place] % (Auto) 5.8 Eos % (Auto) 0.4 Baso % (Auto) 1.0 Neut # 18.6 H Lymph # 1.5 [place] # 1.3 H Eos # 0.1 Baso # 0.2 Neutrophils % (Manual) 88 H Band Neutrophils % 2 Lymphocytes % (Manual) 6 L Monocytes % (Manual) 3 Metamyelocytes % Myelocytes % 1 H Platelet Estimate Normal Polychromasia Slight Hypochromasia (manual) Slight Poikilocytosis (manual Anisocytosis (manual) Moderate Macrocytosis (manual) Slight Target Cells Slight PT INR APTT Sodium 133 Potassium 3.7 Chloride 98 Carbon Dioxide 21 L Anion Gap 18 BUN 49 H Creatinine 1.9 H Est GFR ( Amer) 31 Est GFR (Non-Af Amer) 26 POC Glucose (mg/dL) 220 H Random Glucose 226 H Calcium 8.3 L Phosphorus 5.0 H Magnesium 1.7 Total Bilirubin 8.8 H Direct Bilirubin AST 39 H ALT 18 Alkaline Phosphatase 214 H Troponin I Total Protein 6.6 Albumin 2.1 L Globulin 4.5 H Albumin/Globulin Ratio 0.5 L Stool Occult Blood Blood Type Antibody Screen Crossmatch Assessment & Plan - Assessment and Plan (Free Text) Assessment: This is a 76yF pw with rectal bleeding s/p 2 Units PRBCs, currently on IV levophed and vent support. Lower GI Bleed Hyperbilirubinemia Malnutriotn ESRD on HD Leuckocytosis Plan: Lower GI bleed-pt not having major bleeding at this time with stable Hgb 9.6 s/ p blood transfusion. Will hold colonoscopy until medically stable, pt currently on Levophed. Will continue to monitor for any further bleeding, Monitor Hgb and transfuse as needed. Discontinue IV protonix drip and change to protonix daily Hyperbilirubinemia-US abd pending to r/o biliary obstruction, etiology unclear, will order hepatitis panel, autoimmune workup, maybe 2/2 antifungal medication. Will obtain MR from [facility]. Nutritional status, pt on TF through NGT, recommend restarting feeds Leukocytosis-etiology unclear, recommend thomson cx and imaging CTA/P <Amol Woodall - Last Filed: 10/26/16 11:09> Meds - Medications Medications: Current Medications Home Med (Amino Acids/Protein Hydr/Fiber [Pro-Stat Renal Care Liquid Pkt]) 30 ml PO DAILY [facility] Home Med (Pro-Stat 101) 30 ml PO DAILY [facility] Norepinephrine Bitartrate 4 mg (/ Dextrose) 254 mls @ 7.62 mls/hr IV .Q24H PRN ; Protocol; 2 MCG/MIN PRN Reason: TITRATE PER MD ORDER Last Admin: 10/25/16 16:32 Dose: 7.62 mls/hr Meropenem 500 mg/ Sodium (Chloride) 100 mls @ 100 mls/hr IVPB Q24H [facility] Last Admin: 10/25/16 19:15 Dose: 100 mls/hr Insulin Human Regular (Novolin R) 0 unit SC Q6 REKHA PRN Reason: Protocol Last Admin: 10/26/16 08:22 Dose: 2 unit Levothyroxine Sodium (Synthroid) 200 mcg PO DAILY@0630 [facility] Last Admin: 10/26/16 06:08 Dose: 200 mcg Lorazepam (Ativan) 1 mg IVP Q4 PRN PRN Reason: Agitation Pantoprazole Sodium (Protonix Inj) 40 mg IVP DAILY [facility] Vancomycin HCl (Vancocin (Oral Or Rectal Use)) 125 mg PO Q6H REKHA Last Admin: 10/26/16 06:07 Dose: 125 mg Results - Vital Signs Recent Vital Signs: Last Vital Signs Temp 100.4 F H 10/26/16 08:00 Pulse 97 H 10/26/16 09:30 Resp 33 H 10/26/16 09:30 BP 105/44 L 10/26/16 09:01 Pulse Ox 100 10/26/16 09:30 - Labs Result Diagrams: 10/26/16 06:38 10/26/16 06:38 Labs: Laboratory Results - last 24 hr 10/25/16 10/25/16 10/25/16 16:33 16:33 16:33 WBC 25.2 H D RBC 2.63 L Hgb 8.6 L Hct 26.3 L MCV 100.0 H D MCH 32.7 H MCHC 32.7 L RDW 24.7 H Plt Count 161 MPV 10.2 Neut % (Auto) 85.0 H Lymph % (Auto) 7.2 L [place] % (Auto) 6.5 Eos % (Auto) 0.3 Baso % (Auto) 1.0 Neut # 21.4 H Lymph # 1.8 [place] # 1.6 H Eos # 0.1 Baso # 0.3 H Neutrophils % (Manual) 78 H Band Neutrophils % 2 Lymphocytes % (Manual) 6 L Monocytes % (Manual) 7 Metamyelocytes % 3 H Myelocytes % 4 H Platelet Estimate Normal Polychromasia Hypochromasia (manual) Slight Poikilocytosis (manual Slight Anisocytosis (manual) Slight Macrocytosis (manual) Target Cells Slight PT 18.0 H INR 1.6 APTT 49 H Sodium 132 Potassium 3.7 Chloride 96 L Carbon Dioxide 24 Anion Gap 16 BUN 42 H Creatinine 1.7 H Est GFR ( Amer) 36 Est GFR (Non-Af Amer) 29 POC Glucose (mg/dL) Random Glucose 334 H Calcium 8.3 L Phosphorus Magnesium Total Bilirubin 8.3 H Direct Bilirubin AST 38 H D ALT 26 Alkaline Phosphatase 214 H Troponin I < 0.0120 Total Protein 6.6 Albumin 2.1 L Globulin 4.5 H Albumin/Globulin Ratio 0.5 L Stool Occult Blood Blood Type Antibody Screen Crossmatch 10/25/16 10/25/16 10/25/16 16:33 17:00 21:10 WBC 28.0 H RBC 3.01 L Hgb 9.6 L Hct 29.5 L MCV 97.7 D MCH 32.0 H MCHC 32.7 L RDW 21.2 H Plt Count 148 MPV 10.0 Neut % (Auto) Lymph % (Auto) [place] % (Auto) Eos % (Auto) Baso % (Auto) Neut # Lymph # [place] # Eos # Baso # Neutrophils % (Manual) Band Neutrophils % Lymphocytes % (Manual) Monocytes % (Manual) Metamyelocytes % Myelocytes % Platelet Estimate Polychromasia Hypochromasia (manual) Poikilocytosis (manual Anisocytosis (manual) Macrocytosis (manual) Target Cells PT INR APTT Sodium Potassium Chloride Carbon Dioxide Anion Gap BUN Creatinine Est GFR ( Amer) Est GFR (Non-Af Amer) POC Glucose (mg/dL) Random Glucose Calcium Phosphorus Magnesium Total Bilirubin Direct Bilirubin AST ALT Alkaline Phosphatase Troponin I Total Protein Albumin Globulin Albumin/Globulin Ratio Stool Occult Blood Positive H Blood Type B POSITIVE Antibody Screen Negative Crossmatch See Detail 10/25/16 10/25/16 10/26/16 21:10 21:52 00:58 WBC RBC Hgb Hct MCV MCH MCHC RDW Plt Count MPV Neut % (Auto) Lymph % (Auto) [place] % (Auto) Eos % (Auto) Baso % (Auto) Neut # Lymph # [place] # Eos # Baso # Neutrophils % (Manual) Band Neutrophils % Lymphocytes % (Manual) Monocytes % (Manual) Metamyelocytes % Myelocytes % Platelet Estimate Polychromasia Hypochromasia (manual) Poikilocytosis (manual Anisocytosis (manual) Macrocytosis (manual) Target Cells PT INR APTT Sodium Potassium Chloride Carbon Dioxide Anion Gap BUN Creatinine Est GFR ( Amer) Est GFR (Non-Af Amer) POC Glucose (mg/dL) 283 H 251 H Random Glucose Calcium Phosphorus Magnesium Total Bilirubin Direct Bilirubin 7.3 H AST ALT Alkaline Phosphatase Troponin I Total Protein Albumin Globulin Albumin/Globulin Ratio Stool Occult Blood Blood Type Antibody Screen Crossmatch 10/26/16 10/26/16 10/26/16 06:31 06:38 06:38 WBC 21.7 H RBC 2.98 L Hgb 9.6 L Hct 29.1 L MCV 97.8 MCH 32.4 H MCHC 33.1 RDW 22.1 H Plt Count 167 MPV 10.1 Neut % (Auto) 85.7 H Lymph % (Auto) 7.1 L [place] % (Auto) 5.8 Eos % (Auto) 0.4 Baso % (Auto) 1.0 Neut # 18.6 H Lymph # 1.5 [place] # 1.3 H Eos # 0.1 Baso # 0.2 Neutrophils % (Manual) 88 H Band Neutrophils % 2 Lymphocytes % (Manual) 6 L Monocytes % (Manual) 3 Metamyelocytes % Myelocytes % 1 H Platelet Estimate Normal Polychromasia Slight Hypochromasia (manual) Slight Poikilocytosis (manual Anisocytosis (manual) Moderate Macrocytosis (manual) Slight Target Cells Slight PT INR APTT Sodium 133 Potassium 3.7 Chloride 98 Carbon Dioxide 21 L Anion Gap 18 BUN 49 H Creatinine 1.9 H Est GFR ( Amer) 31 Est GFR (Non-Af Amer) 26 POC Glucose (mg/dL) 220 H Random Glucose 226 H Calcium 8.3 L Phosphorus 5.0 H Magnesium 1.7 Total Bilirubin 8.8 H Direct Bilirubin AST 39 H ALT 18 Alkaline Phosphatase 214 H Troponin I Total Protein 6.6 Albumin 2.1 L Globulin 4.5 H Albumin/Globulin Ratio 0.5 L Stool Occult Blood Blood Type Antibody Screen Crossmatch Attending/Attestation - Attestation I have personally seen and examined this patient.: Yes I have fully participated in the care of the patient.: Yes I have reviewed all pertinent clinical information: Yes Notes (Text): 10/26/16 11:02 76 year old female with h/o ESRD on HD, vent dependent respiratory failure s/p tracheostomy, CAD, CHF malnutrition s/p NGT for enteral feeding at OSH, h/o empyema who presents with rectal bleeding, also with hypotension requiring pressor support, and leukocytosis. 1. GI bleeding 2. Jaundice 3. Sepsis Plan: -bleeding appears to have resolved, hemoglobin stable without transfusion overnight -would not pursue endoscopic evaluation at this time as the bleeding seems minor or resolved and patient is requiring pressor support for hypotension -recommend evaluation for etiology of sepsis with leukocytosis and hypotension requiring pressor support -etiology of jaundice is not entirely clear, apparently this has been attributed to an antifungal medication and her bilirubin was as high as 10 before -would recommend US abdomen -would recommend CT abdomen/pelvis with PO/IV contrast -no need for protonix infusion, may give per NGT daily -obtain records from [facility]
--- NOTE | 2016-10-26 10:19 | CP.CCUPN ---
<EugeniaJavier coker Bk - Last Filed: 10/26/16 10:57> CCU Subjective - Physician Review Events Since Last Encounter (Free Text): 10/26/16 10:29 Pt S&E. 76F with CAD, HTN, ESRD, hypothyroid, DM, metabolic encephalopathy. Sent in for acute rectal bleeding with low HgB. HgB today 9.6 (7.3 on admission ) s/p 2 units pRBC. No further bloody BMs. Pt remains on 5mcg Norepinephrine , Protonix drip, PO Vanc, Merrem. Seen by GI, pt too unstable for colonoscopy prep. Will order abd US. Also seen by Cardio, pt high risk for any procedure but if clinically indicated emergency can proceed. Per Daughter who is bedside, pt recently admitted to [facility] in August. Was treated for right sided empyema with chest tube and tpA. Tube was in place for close to 2 weeks prior to D/C. Critical Care Time Spent (in minutes): 35 CCU Objective - Vital Signs / Intake & Output Vital Signs (Last 4 hours): Vital Signs Temp Pulse Resp BP Pulse Ox 10/26/16 09:30 97 H 33 H 100 10/26/16 09:01 94 H 24 105/44 L 100 10/26/16 09:00 96 H 30 H 100 10/26/16 08:30 95 H 19 100 10/26/16 08:07 98 H 16 104/41 L 100 10/26/16 08:00 100.4 F H 95 H 31 H 100 10/26/16 07:30 96 H 34 H 100 10/26/16 07:01 97 H 21 109/43 L 100 10/26/16 07:00 97 H 35 H 104/43 L 100 10/26/16 06:30 94 H 30 H 100 Intake and Output (Last 8hrs): Intake & Output 10/25/16 10/26/16 10/26/16 22:59 06:59 14:59 Intake Total 1450.0 215.0 65.0 Output Total 40 0 0 Balance 1410.0 215.0 65.0 Intake: Intake, IV Amount 1320.0 215.0 65.0 Right Distal Port PICC 30.0 135.0 45.0 Right Hand 40 80 10 Right Proximal Port PICC 800 10 Rt hand side port 450 Blood Product 100 Other 30 Output: Urine 0 0 0 Urine, Voided 0 0 0 Stool 40 Other: # Bowel Movements 0 - Physical Exam Narrative Physical Exam (Free Text): 10/26/16 10:33 cachectic, chronically ill, Physical Exam Limitations: Positive for: Clinical Condition Extroacular Muscles: Positive for: EOMI Mouth: Positive for: Dry Respiratory/Chest: Positive for: Rhonchi. Negative for: Clear to Auscultation ( decreased in RLL), Respiratory Distress, Accessory Muscle Use Cardiovascular: Positive for: Regular Rate and Rhythm, Other (hypotension). Negative for: Murmurs, Tachycardic Abdomen: Positive for: Distention. Negative for: Tenderness Lower Extremity: Positive for: Edema Skin: Positive for: Other (jaundice) Psychiatric: Positive for: Lethargic. Negative for: Alert - Medications Active Medications: Active Medications Generic Name Dose Route Start Last Admin Trade Name Freq PRN Reason Stop Dose Admin Famotidine 20 mg 10/26/16 10:00 Pepcid NG DAILY REKHA Home Med 30 ml 10/26/16 10:00 Amino Acids/Protein Hydr/Fiber [Pro-Stat Renal Care Liquid Pkt] PO DAILY REKHA Home Med 30 ml 10/26/16 10:00 Pro-Stat 101 PO DAILY REKHA Norepinephrine Bitartrate 4 mg 254 mls @ 7.62 mls/hr 10/25/16 15:48 10/25/16 16:32 / Dextrose IV 7.62 mls/hr .Q24H PRN Administration TITRATE PER MD ORDER Protocol 2 MCG/MIN Pantoprazole Sodium 80 mg/ 100 mls @ 10 mls/hr 10/25/16 16:00 10/26/16 05:00 Sodium Chloride IVP 10 mls/hr .Q10H REKHA Administration 8 MG/HR Meropenem 500 mg/ Sodium 100 mls @ 100 mls/hr 10/25/16 19:00 10/25/16 19:15 Chloride IVPB 100 mls/hr Q24H REKHA Administration Insulin Human Regular 0 unit 10/26/16 06:00 10/26/16 08:22 Novolin R SC 2 unit Q6 REKHA Administration Protocol Levothyroxine Sodium 200 mcg 10/26/16 06:30 10/26/16 06:08 Synthroid PO 200 mcg DAILY@0630 REKHA Administration Lorazepam 1 mg 07/05/17 00:01 Ativan IVP Q4 PRN Agitation Vancomycin HCl 125 mg 10/25/16 19:00 10/26/16 06:07 Vancocin (Oral Or Rectal Use) PO 125 mg Q6H REKHA Administration - Patient Studies Lab Studies: Lab Studies 10/26/16 10/26/16 10/26/16 Range/Units 06:38 06:38 06:31 WBC 21.7 H (4.8-10.8) K/uL RBC 2.98 L (3.80-5.20) Mil/uL Hgb 9.6 L (11.0-16.0) g/dL Hct 29.1 L (34.0-47.0) % MCV 97.8 (81.0-99.0) fL MCH 32.4 H (27.0-31.0) pg MCHC 33.1 (33.0-37.0) g/dL RDW 22.1 H (11.5-14.5) % Plt Count 167 (130-400) K/uL MPV 10.1 (7.2-11.7) fL Neut % (Auto) 85.7 H (50.0-75.0) % Lymph % (Auto) 7.1 L (20.0-40.0) % [place] % (Auto) 5.8 (0.0-10.0) % Eos % (Auto) 0.4 (0.0-4.0) % Baso % (Auto) 1.0 (0.0-2.0) % Neut # 18.6 H (1.8-7.0) K/uL Lymph # 1.5 (1.0-4.3) K/uL [place] # 1.3 H (0.0-0.8) K/uL Eos # 0.1 (0.0-0.7) K/uL Baso # 0.2 (0.0-0.2) K/uL Neutrophils % (Manual) 88 H (50-75) % Band Neutrophils % 2 (0-2) % Lymphocytes % (Manual) 6 L (20-40) % Monocytes % (Manual) 3 (0-10) % Metamyelocytes % (0-0) % Myelocytes % 1 H (0-0) % Platelet Estimate Normal (NORMAL) Polychromasia Slight Hypochromasia (manual) Slight Poikilocytosis (manual Anisocytosis (manual) Moderate Macrocytosis (manual) Slight Target Cells Slight PT (9.7-12.2) SECONDS INR APTT (21-34) SECONDS Sodium 133 (132-148) mmol/L Potassium 3.7 (3.6-5.2) mmol/L Chloride 98 (98-107) mmol/L Carbon Dioxide 21 L (22-30) mmol/L Anion Gap 18 (10-20) BUN 49 H (7-17) mg/dL Creatinine 1.9 H (0.7-1.2) MG/DL Est GFR ( Amer) 31 Est GFR (Non-Af Amer) 26 POC Glucose (mg/dL) 220 H (65-110) mg/dL Random Glucose 226 H (65-105) mg/dL Calcium 8.3 L (8.6-10.4) mg/dl Phosphorus 5.0 H (2.5-4.5) mg/dL Magnesium 1.7 (1.6-2.3) mg/dL Total Bilirubin 8.8 H (0.2-1.3) mg/dL Direct Bilirubin (0.0-0.4) mg/dL AST 39 H (14-36) U/L ALT 18 (9-52) U/L Alkaline Phosphatase 214 H (38-126) U/L Troponin I (0.00-0.120) ng/mL Total Protein 6.6 (6.3-8.3) g/dL Albumin 2.1 L (3.5-5.0) g/dL Globulin 4.5 H (2.2-3.9) gm/dL Albumin/Globulin Ratio 0.5 L (1.0-2.1) Stool Occult Blood (NEGATIVE) Blood Type Antibody Screen Crossmatch 10/26/16 10/25/16 10/25/16 Range/Units 00:58 21:52 21:10 WBC (4.8-10.8) K/uL RBC (3.80-5.20) Mil/uL Hgb (11.0-16.0) g/dL Hct (34.0-47.0) % MCV (81.0-99.0) fL MCH (27.0-31.0) pg MCHC (33.0-37.0) g/dL RDW (11.5-14.5) % Plt Count (130-400) K/uL MPV (7.2-11.7) fL Neut % (Auto) (50.0-75.0) % Lymph % (Auto) (20.0-40.0) % [place] % (Auto) (0.0-10.0) % Eos % (Auto) (0.0-4.0) % Baso % (Auto) (0.0-2.0) % Neut # (1.8-7.0) K/uL Lymph # (1.0-4.3) K/uL [place] # (0.0-0.8) K/uL Eos # (0.0-0.7) K/uL Baso # (0.0-0.2) K/uL Neutrophils % (Manual) (50-75) % Band Neutrophils % (0-2) % Lymphocytes % (Manual) (20-40) % Monocytes % (Manual) (0-10) % Metamyelocytes % (0-0) % Myelocytes % (0-0) % Platelet Estimate (NORMAL) Polychromasia Hypochromasia (manual) Poikilocytosis (manual Anisocytosis (manual) Macrocytosis (manual) Target Cells PT (9.7-12.2) SECONDS INR APTT (21-34) SECONDS Sodium (132-148) mmol/L Potassium (3.6-5.2) mmol/L Chloride (98-107) mmol/L Carbon Dioxide (22-30) mmol/L Anion Gap (10-20) BUN (7-17) mg/dL Creatinine (0.7-1.2) MG/DL Est GFR ( Amer) Est GFR (Non-Af Amer) POC Glucose (mg/dL) 251 H 283 H (65-110) mg/dL Random Glucose (65-105) mg/dL Calcium (8.6-10.4) mg/dl Phosphorus (2.5-4.5) mg/dL Magnesium (1.6-2.3) mg/dL Total Bilirubin (0.2-1.3) mg/dL Direct Bilirubin 7.3 H (0.0-0.4) mg/dL AST (14-36) U/L ALT (9-52) U/L Alkaline Phosphatase (38-126) U/L Troponin I (0.00-0.120) ng/mL Total Protein (6.3-8.3) g/dL Albumin (3.5-5.0) g/dL Globulin (2.2-3.9) gm/dL Albumin/Globulin Ratio (1.0-2.1) Stool Occult Blood (NEGATIVE) Blood Type Antibody Screen Crossmatch 10/25/16 10/25/16 10/25/16 Range/Units 21:10 17:00 16:33 WBC 28.0 H (4.8-10.8) K/uL RBC 3.01 L (3.80-5.20) Mil/uL Hgb 9.6 L (11.0-16.0) g/dL Hct 29.5 L (34.0-47.0) % MCV 97.7 D (81.0-99.0) fL MCH 32.0 H (27.0-31.0) pg MCHC 32.7 L (33.0-37.0) g/dL RDW 21.2 H (11.5-14.5) % Plt Count 148 (130-400) K/uL MPV 10.0 (7.2-11.7) fL Neut % (Auto) (50.0-75.0) % Lymph % (Auto) (20.0-40.0) % [place] % (Auto) (0.0-10.0) % Eos % (Auto) (0.0-4.0) % Baso % (Auto) (0.0-2.0) % Neut # (1.8-7.0) K/uL Lymph # (1.0-4.3) K/uL [place] # (0.0-0.8) K/uL Eos # (0.0-0.7) K/uL Baso # (0.0-0.2) K/uL Neutrophils % (Manual) (50-75) % Band Neutrophils % (0-2) % Lymphocytes % (Manual) (20-40) % Monocytes % (Manual) (0-10) % Metamyelocytes % (0-0) % Myelocytes % (0-0) % Platelet Estimate (NORMAL) Polychromasia Hypochromasia (manual) Poikilocytosis (manual Anisocytosis (manual) Macrocytosis (manual) Target Cells PT (9.7-12.2) SECONDS INR APTT (21-34) SECONDS Sodium (132-148) mmol/L Potassium (3.6-5.2) mmol/L Chloride (98-107) mmol/L Carbon Dioxide (22-30) mmol/L Anion Gap (10-20) BUN (7-17) mg/dL Creatinine (0.7-1.2) MG/DL Est GFR ( Amer) Est GFR (Non-Af Amer) POC Glucose (mg/dL) (65-110) mg/dL Random Glucose (65-105) mg/dL Calcium (8.6-10.4) mg/dl Phosphorus (2.5-4.5) mg/dL Magnesium (1.6-2.3) mg/dL Total Bilirubin (0.2-1.3) mg/dL Direct Bilirubin (0.0-0.4) mg/dL AST (14-36) U/L ALT (9-52) U/L Alkaline Phosphatase (38-126) U/L Troponin I (0.00-0.120) ng/mL Total Protein (6.3-8.3) g/dL Albumin (3.5-5.0) g/dL Globulin (2.2-3.9) gm/dL Albumin/Globulin Ratio (1.0-2.1) Stool Occult Blood Positive H (NEGATIVE) Blood Type B POSITIVE Antibody Screen Negative Crossmatch See Detail 10/25/16 10/25/16 10/25/16 Range/Units 16:33 16:33 16:33 WBC 25.2 H D (4.8-10.8) K/uL RBC 2.63 L (3.80-5.20) Mil/uL Hgb 8.6 L (11.0-16.0) g/dL Hct 26.3 L (34.0-47.0) % MCV 100.0 H D (81.0-99.0) fL MCH 32.7 H (27.0-31.0) pg MCHC 32.7 L (33.0-37.0) g/dL RDW 24.7 H (11.5-14.5) % Plt Count 161 (130-400) K/uL MPV 10.2 (7.2-11.7) fL Neut % (Auto) 85.0 H (50.0-75.0) % Lymph % (Auto) 7.2 L (20.0-40.0) % [place] % (Auto) 6.5 (0.0-10.0) % Eos % (Auto) 0.3 (0.0-4.0) % Baso % (Auto) 1.0 (0.0-2.0) % Neut # 21.4 H (1.8-7.0) K/uL Lymph # 1.8 (1.0-4.3) K/uL [place] # 1.6 H (0.0-0.8) K/uL Eos # 0.1 (0.0-0.7) K/uL Baso # 0.3 H (0.0-0.2) K/uL Neutrophils % (Manual) 78 H (50-75) % Band Neutrophils % 2 (0-2) % Lymphocytes % (Manual) 6 L (20-40) % Monocytes % (Manual) 7 (0-10) % Metamyelocytes % 3 H (0-0) % Myelocytes % 4 H (0-0) % Platelet Estimate Normal (NORMAL) Polychromasia Hypochromasia (manual) Slight Poikilocytosis (manual Slight Anisocytosis (manual) Slight Macrocytosis (manual) Target Cells Slight PT 18.0 H (9.7-12.2) SECONDS INR 1.6 APTT 49 H (21-34) SECONDS Sodium 132 (132-148) mmol/L Potassium 3.7 (3.6-5.2) mmol/L Chloride 96 L (98-107) mmol/L Carbon Dioxide 24 (22-30) mmol/L Anion Gap 16 (10-20) BUN 42 H (7-17) mg/dL Creatinine 1.7 H (0.7-1.2) MG/DL Est GFR ( Amer) 36 Est GFR (Non-Af Amer) 29 POC Glucose (mg/dL) (65-110) mg/dL Random Glucose 334 H (65-105) mg/dL Calcium 8.3 L (8.6-10.4) mg/dl Phosphorus (2.5-4.5) mg/dL Magnesium (1.6-2.3) mg/dL Total Bilirubin 8.3 H (0.2-1.3) mg/dL Direct Bilirubin (0.0-0.4) mg/dL AST 38 H D (14-36) U/L ALT 26 (9-52) U/L Alkaline Phosphatase 214 H (38-126) U/L Troponin I < 0.0120 (0.00-0.120) ng/mL Total Protein 6.6 (6.3-8.3) g/dL Albumin 2.1 L (3.5-5.0) g/dL Globulin 4.5 H (2.2-3.9) gm/dL Albumin/Globulin Ratio 0.5 L (1.0-2.1) Stool Occult Blood (NEGATIVE) Blood Type Antibody Screen Crossmatch Laboratory Results - last 24 hr 10/25/16 10/25/16 10/25/16 16:33 16:33 16:33 WBC 25.2 H D RBC 2.63 L Hgb 8.6 L Hct 26.3 L MCV 100.0 H D MCH 32.7 H MCHC 32.7 L RDW 24.7 H Plt Count 161 MPV 10.2 Neut % (Auto) 85.0 H Lymph % (Auto) 7.2 L [place] % (Auto) 6.5 Eos % (Auto) 0.3 Baso % (Auto) 1.0 Neut # 21.4 H Lymph # 1.8 [place] # 1.6 H Eos # 0.1 Baso # 0.3 H Neutrophils % (Manual) 78 H Band Neutrophils % 2 Lymphocytes % (Manual) 6 L Monocytes % (Manual) 7 Metamyelocytes % 3 H Myelocytes % 4 H Platelet Estimate Normal Polychromasia Hypochromasia (manual) Slight Poikilocytosis (manual Slight Anisocytosis (manual) Slight Macrocytosis (manual) Target Cells Slight PT 18.0 H INR 1.6 APTT 49 H Sodium 132 Potassium 3.7 Chloride 96 L Carbon Dioxide 24 Anion Gap 16 BUN 42 H Creatinine 1.7 H Est GFR ( Amer) 36 Est GFR (Non-Af Amer) 29 POC Glucose (mg/dL) Random Glucose 334 H Calcium 8.3 L Phosphorus Magnesium Total Bilirubin 8.3 H Direct Bilirubin AST 38 H D ALT 26 Alkaline Phosphatase 214 H Troponin I < 0.0120 Total Protein 6.6 Albumin 2.1 L Globulin 4.5 H Albumin/Globulin Ratio 0.5 L Stool Occult Blood Blood Type Antibody Screen Crossmatch 10/25/16 10/25/16 10/25/16 16:33 17:00 21:10 WBC 28.0 H RBC 3.01 L Hgb 9.6 L Hct 29.5 L MCV 97.7 D MCH 32.0 H MCHC 32.7 L RDW 21.2 H Plt Count 148 MPV 10.0 Neut % (Auto) Lymph % (Auto) [place] % (Auto) Eos % (Auto) Baso % (Auto) Neut # Lymph # [place] # Eos # Baso # Neutrophils % (Manual) Band Neutrophils % Lymphocytes % (Manual) Monocytes % (Manual) Metamyelocytes % Myelocytes % Platelet Estimate Polychromasia Hypochromasia (manual) Poikilocytosis (manual Anisocytosis (manual) Macrocytosis (manual) Target Cells PT INR APTT Sodium Potassium Chloride Carbon Dioxide Anion Gap BUN Creatinine Est GFR ( Amer) Est GFR (Non-Af Amer) POC Glucose (mg/dL) Random Glucose Calcium Phosphorus Magnesium Total Bilirubin Direct Bilirubin AST ALT Alkaline Phosphatase Troponin I Total Protein Albumin Globulin Albumin/Globulin Ratio Stool Occult Blood Positive H Blood Type B POSITIVE Antibody Screen Negative Crossmatch See Detail 10/25/16 10/25/16 10/26/16 21:10 21:52 00:58 WBC RBC Hgb Hct MCV MCH MCHC RDW Plt Count MPV Neut % (Auto) Lymph % (Auto) [place] % (Auto) Eos % (Auto) Baso % (Auto) Neut # Lymph # [place] # Eos # Baso # Neutrophils % (Manual) Band Neutrophils % Lymphocytes % (Manual) Monocytes % (Manual) Metamyelocytes % Myelocytes % Platelet Estimate Polychromasia Hypochromasia (manual) Poikilocytosis (manual Anisocytosis (manual) Macrocytosis (manual) Target Cells PT INR APTT Sodium Potassium Chloride Carbon Dioxide Anion Gap BUN Creatinine Est GFR ( Amer) Est GFR (Non-Af Amer) POC Glucose (mg/dL) 283 H 251 H Random Glucose Calcium Phosphorus Magnesium Total Bilirubin Direct Bilirubin 7.3 H AST ALT Alkaline Phosphatase Troponin I Total Protein Albumin Globulin Albumin/Globulin Ratio Stool Occult Blood Blood Type Antibody Screen Crossmatch 10/26/16 10/26/16 10/26/16 06:31 06:38 06:38 WBC 21.7 H RBC 2.98 L Hgb 9.6 L Hct 29.1 L MCV 97.8 MCH 32.4 H MCHC 33.1 RDW 22.1 H Plt Count 167 MPV 10.1 Neut % (Auto) 85.7 H Lymph % (Auto) 7.1 L [place] % (Auto) 5.8 Eos % (Auto) 0.4 Baso % (Auto) 1.0 Neut # 18.6 H Lymph # 1.5 [place] # 1.3 H Eos # 0.1 Baso # 0.2 Neutrophils % (Manual) 88 H Band Neutrophils % 2 Lymphocytes % (Manual) 6 L Monocytes % (Manual) 3 Metamyelocytes % Myelocytes % 1 H Platelet Estimate Normal Polychromasia Slight Hypochromasia (manual) Slight Poikilocytosis (manual Anisocytosis (manual) Moderate Macrocytosis (manual) Slight Target Cells Slight PT INR APTT Sodium 133 Potassium 3.7 Chloride 98 Carbon Dioxide 21 L Anion Gap 18 BUN 49 H Creatinine 1.9 H Est GFR ( Amer) 31 Est GFR (Non-Af Amer) 26 POC Glucose (mg/dL) 220 H Random Glucose 226 H Calcium 8.3 L Phosphorus 5.0 H Magnesium 1.7 Total Bilirubin 8.8 H Direct Bilirubin AST 39 H ALT 18 Alkaline Phosphatase 214 H Troponin I Total Protein 6.6 Albumin 2.1 L Globulin 4.5 H Albumin/Globulin Ratio 0.5 L Stool Occult Blood Blood Type Antibody Screen Crossmatch Fingerstick Blood Sugar Results: 283 Review of Systems - Review of Systems Systems not reviewed;Unavailable: Altered Mental Status Assessment/Plan - Assessment and Plan (Free Text) Assessment: 10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 Pt high risk for any procedure but can proceed if clinical indicated Heme: -stable since admission 9.6 (up from 7.3) - will cont to monitor H/H and for rectal bleed -transfuse PRN for HgB <7 Renal: - 49/1.9; ESRD, due for hemodialysis today - will consult Dr Mcfarland who is familiar with the pt Endo: -Insulin sliding scale GI: - NPO -Protonix drip for GI bleed - Not currently stable for colonoscopy prep per GI, no further blood BMs: Dr Woodall -Will get CT of abd/pel per GI -abd US ID: - PO Vanc and Merrem Pt chronically ill, prognosis very poor, will consult palliative care as well DVT proph - SCDs, no anti-coagulation due to acute bleed GI proph - Protonix 40mg IVP daily Code status - Full Case discussed with Dr. Yordy Bello, PGY3 - Date & Time Date: 10/26/16 Time: 11:07 <Jonatan Scales S - Last Filed: 10/26/16 17:14> CCU Objective - Vital Signs / Intake & Output Vital Signs (Last 4 hours): Vital Signs Temp Pulse Pulse Resp BP BP Pulse Ox 10/26/16 17:00 97/35 L 10/26/16 16:30 94/38 L 10/26/16 16:17 82 27 H 102/41 L 10/26/16 16:00 98.6 F 91/38 L 10/26/16 15:45 102/41 L 10/26/16 15:30 101/38 L 10/26/16 15:15 105/39 L 10/26/16 15:00 98.6 F 82 27 H 106/40 L 100 10/26/16 14:55 98.6 F 82 27 H 102/41 L Intake and Output (Last 8hrs): Intake & Output 10/26/16 10/26/16 10/26/16 06:59 14:59 22:59 Intake Total 215.0 217.5 45.0 Output Total 0 0 0 Balance 215.0 217.5 45.0 Weight 123 lb 3.814 oz Intake: Intake, IV Amount 215.0 217.5 45.0 Right Distal Port PICC 135.0 157.5 45.0 Right Hand 80 10 Right Proximal Port PICC 50 0 Tube Feeding 0 0 Output: Urine 0 0 0 Urine, Voided 0 0 0 Emesis 0 0 Other: # Voids Urine, Voided 0 # Bowel Movements 0 - Medications Active Medications: Active Medications Generic Name Dose Route Start Last Admin Trade Name Freq PRN Reason Stop Dose Admin Epoetin Sly 10,000 unit 10/26/16 15:30 10/26/16 16:10 Procrit IV 10,000 unit MWF REKHA Administration Norepinephrine Bitartrate 4 mg 254 mls @ 7.62 mls/hr 10/25/16 15:48 10/25/16 16:32 / Dextrose IV 7.62 mls/hr .Q24H PRN Administration TITRATE PER MD ORDER Protocol 2 MCG/MIN Meropenem 500 mg/ Sodium 100 mls @ 100 mls/hr 10/25/16 19:00 10/25/16 19:15 Chloride IVPB 100 mls/hr Q24H REKHA Administration Insulin Human Regular 0 unit 10/26/16 06:00 10/26/16 11:53 Novolin R SC Not Given Q6 REKHA Protocol Levothyroxine Sodium 200 mcg 10/26/16 06:30 10/26/16 06:08 Synthroid PO 200 mcg DAILY@0630 REKHA Administration Lorazepam 1 mg 10/26/16 00:01 Ativan IVP Q4 PRN Agitation Pantoprazole Sodium 40 mg 10/26/16 11:30 10/26/16 11:55 Protonix Inj IVP Not Given DAILY REKHA Vancomycin HCl 125 mg 10/25/16 19:00 10/26/16 06:07 Vancocin (Oral Or Rectal Use) PO 125 mg Q6H REKHA Administration - Patient Studies Lab Studies: Lab Studies 10/26/16 10/26/16 10/26/16 Range/Units 15:32 15:32 15:32 WBC (4.8-10.8) K/uL RBC (3.80-5.20) Mil/uL Hgb (11.0-16.0) g/dL Hct (34.0-47.0) % MCV (81.0-99.0) fL MCH (27.0-31.0) pg MCHC (33.0-37.0) g/dL RDW (11.5-14.5) % Plt Count (130-400) K/uL MPV (7.2-11.7) fL Neut % (Auto) (50.0-75.0) % Lymph % (Auto) (20.0-40.0) % [place] % (Auto) (0.0-10.0) % Eos % (Auto) (0.0-4.0) % Baso % (Auto) (0.0-2.0) % Neut # (1.8-7.0) K/uL Lymph # (1.0-4.3) K/uL [place] # (0.0-0.8) K/uL Eos # (0.0-0.7) K/uL Baso # (0.0-0.2) K/uL Neutrophils % (Manual) (50-75) % Band Neutrophils % (0-2) % Lymphocytes % (Manual) (20-40) % Monocytes % (Manual) (0-10) % Myelocytes % (0-0) % Platelet Estimate (NORMAL) Polychromasia Hypochromasia (manual) Anisocytosis (manual) Macrocytosis (manual) Target Cells Sodium (132-148) mmol/L Potassium (3.6-5.2) mmol/L Chloride (98-107) mmol/L Carbon Dioxide (22-30) mmol/L Anion Gap (10-20) BUN (7-17) mg/dL Creatinine (0.7-1.2) MG/DL Est GFR ( Amer) Est GFR (Non-Af Amer) POC Glucose (mg/dL) (65-110) mg/dL Random Glucose (65-105) mg/dL Calcium (8.6-10.4) mg/dl Phosphorus (2.5-4.5) mg/dL Magnesium (1.6-2.3) mg/dL Iron 70 (37-170) ug/dL TIBC 111 L (250-450) ug/dL % Saturation 63 H (20-55) Total Bilirubin (0.2-1.3) mg/dL Direct Bilirubin (0.0-0.4) mg/dL AST (14-36) U/L ALT (9-52) U/L Alkaline Phosphatase (38-126) U/L Total Protein (6.3-8.3) g/dL Albumin (3.5-5.0) g/dL Globulin (2.2-3.9) gm/dL Albumin/Globulin Ratio (1.0-2.1) IgG 2702.0 H (700.0-1600.0) mg/dL IgA 562.3 H (70.0-400.0) mg/dL IgM 126.1 (40.0-230.0) mg/dL Hepatitis A IgM Ab Negative (NEGATIVE) Hep Bs Antigen Negative (NEGATIVE) Hep B Core IgM Ab Negative (NEGATIVE) Hepatitis C Antibody Negative (NEGATIVE) Blood Type Antibody Screen Crossmatch 10/26/16 10/26/16 10/26/16 Range/Units 11:42 06:38 06:38 WBC 21.7 H (4.8-10.8) K/uL RBC 2.98 L (3.80-5.20) Mil/uL Hgb 9.6 L (11.0-16.0) g/dL Hct 29.1 L (34.0-47.0) % MCV 97.8 (81.0-99.0) fL MCH 32.4 H (27.0-31.0) pg MCHC 33.1 (33.0-37.0) g/dL RDW 22.1 H (11.5-14.5) % Plt Count 167 (130-400) K/uL MPV 10.1 (7.2-11.7) fL Neut % (Auto) 85.7 H (50.0-75.0) % Lymph % (Auto) 7.1 L (20.0-40.0) % [place] % (Auto) 5.8 (0.0-10.0) % Eos % (Auto) 0.4 (0.0-4.0) % Baso % (Auto) 1.0 (0.0-2.0) % Neut # 18.6 H (1.8-7.0) K/uL Lymph # 1.5 (1.0-4.3) K/uL [place] # 1.3 H (0.0-0.8) K/uL Eos # 0.1 (0.0-0.7) K/uL Baso # 0.2 (0.0-0.2) K/uL Neutrophils % (Manual) 88 H (50-75) % Band Neutrophils % 2 (0-2) % Lymphocytes % (Manual) 6 L (20-40) % Monocytes % (Manual) 3 (0-10) % Myelocytes % 1 H (0-0) % Platelet Estimate Normal (NORMAL) Polychromasia Slight Hypochromasia (manual) Slight Anisocytosis (manual) Moderate Macrocytosis (manual) Slight Target Cells Slight Sodium 133 (132-148) mmol/L Potassium 3.7 (3.6-5.2) mmol/L Chloride 98 (98-107) mmol/L Carbon Dioxide 21 L (22-30) mmol/L Anion Gap 18 (10-20) BUN 49 H (7-17) mg/dL Creatinine 1.9 H (0.7-1.2) MG/DL Est GFR ( Amer) 31 Est GFR (Non-Af Amer) 26 POC Glucose (mg/dL) 137 H (65-110) mg/dL Random Glucose 226 H (65-105) mg/dL Calcium 8.3 L (8.6-10.4) mg/dl Phosphorus 5.0 H (2.5-4.5) mg/dL Magnesium 1.7 (1.6-2.3) mg/dL Iron (37-170) ug/dL TIBC (250-450) ug/dL % Saturation (20-55) Total Bilirubin 8.8 H (0.2-1.3) mg/dL Direct Bilirubin (0.0-0.4) mg/dL AST 39 H (14-36) U/L ALT 18 (9-52) U/L Alkaline Phosphatase 214 H (38-126) U/L Total Protein 6.6 (6.3-8.3) g/dL Albumin 2.1 L (3.5-5.0) g/dL Globulin 4.5 H (2.2-3.9) gm/dL Albumin/Globulin Ratio 0.5 L (1.0-2.1) IgG (700.0-1600.0) mg/dL IgA (70.0-400.0) mg/dL IgM (40.0-230.0) mg/dL Hepatitis A IgM Ab (NEGATIVE) Hep Bs Antigen (NEGATIVE) Hep B Core IgM Ab (NEGATIVE) Hepatitis C Antibody (NEGATIVE) Blood Type Antibody Screen Crossmatch 10/26/16 10/26/16 10/25/16 Range/Units 06:31 00:58 21:52 WBC (4.8-10.8) K/uL RBC (3.80-5.20) Mil/uL Hgb (11.0-16.0) g/dL Hct (34.0-47.0) % MCV (81.0-99.0) fL MCH (27.0-31.0) pg MCHC (33.0-37.0) g/dL RDW (11.5-14.5) % Plt Count (130-400) K/uL MPV (7.2-11.7) fL Neut % (Auto) (50.0-75.0) % Lymph % (Auto) (20.0-40.0) % [place] % (Auto) (0.0-10.0) % Eos % (Auto) (0.0-4.0) % Baso % (Auto) (0.0-2.0) % Neut # (1.8-7.0) K/uL Lymph # (1.0-4.3) K/uL [place] # (0.0-0.8) K/uL Eos # (0.0-0.7) K/uL Baso # (0.0-0.2) K/uL Neutrophils % (Manual) (50-75) % Band Neutrophils % (0-2) % Lymphocytes % (Manual) (20-40) % Monocytes % (Manual) (0-10) % Myelocytes % (0-0) % Platelet Estimate (NORMAL) Polychromasia Hypochromasia (manual) Anisocytosis (manual) Macrocytosis (manual) Target Cells Sodium (132-148) mmol/L Potassium (3.6-5.2) mmol/L Chloride (98-107) mmol/L Carbon Dioxide (22-30) mmol/L Anion Gap (10-20) BUN (7-17) mg/dL Creatinine (0.7-1.2) MG/DL Est GFR ( Amer) Est GFR (Non-Af Amer) POC Glucose (mg/dL) 220 H 251 H 283 H (65-110) mg/dL Random Glucose (65-105) mg/dL Calcium (8.6-10.4) mg/dl Phosphorus (2.5-4.5) mg/dL Magnesium (1.6-2.3) mg/dL Iron (37-170) ug/dL TIBC (250-450) ug/dL % Saturation (20-55) Total Bilirubin (0.2-1.3) mg/dL Direct Bilirubin (0.0-0.4) mg/dL AST (14-36) U/L ALT (9-52) U/L Alkaline Phosphatase (38-126) U/L Total Protein (6.3-8.3) g/dL Albumin (3.5-5.0) g/dL Globulin (2.2-3.9) gm/dL Albumin/Globulin Ratio (1.0-2.1) IgG (700.0-1600.0) mg/dL IgA (70.0-400.0) mg/dL IgM (40.0-230.0) mg/dL Hepatitis A IgM Ab (NEGATIVE) Hep Bs Antigen (NEGATIVE) Hep B Core IgM Ab (NEGATIVE) Hepatitis C Antibody (NEGATIVE) Blood Type Antibody Screen Crossmatch 10/25/16 10/25/16 10/25/16 Range/Units 21:10 21:10 17:00 WBC 28.0 H (4.8-10.8) K/uL RBC 3.01 L (3.80-5.20) Mil/uL Hgb 9.6 L (11.0-16.0) g/dL Hct 29.5 L (34.0-47.0) % MCV 97.7 D (81.0-99.0) fL MCH 32.0 H (27.0-31.0) pg MCHC 32.7 L (33.0-37.0) g/dL RDW 21.2 H (11.5-14.5) % Plt Count 148 (130-400) K/uL MPV 10.0 (7.2-11.7) fL Neut % (Auto) (50.0-75.0) % Lymph % (Auto) (20.0-40.0) % [place] % (Auto) (0.0-10.0) % Eos % (Auto) (0.0-4.0) % Baso % (Auto) (0.0-2.0) % Neut # (1.8-7.0) K/uL Lymph # (1.0-4.3) K/uL [place] # (0.0-0.8) K/uL Eos # (0.0-0.7) K/uL Baso # (0.0-0.2) K/uL Neutrophils % (Manual) (50-75) % Band Neutrophils % (0-2) % Lymphocytes % (Manual) (20-40) % Monocytes % (Manual) (0-10) % Myelocytes % (0-0) % Platelet Estimate (NORMAL) Polychromasia Hypochromasia (manual) Anisocytosis (manual) Macrocytosis (manual) Target Cells Sodium (132-148) mmol/L Potassium (3.6-5.2) mmol/L Chloride (98-107) mmol/L Carbon Dioxide (22-30) mmol/L Anion Gap (10-20) BUN (7-17) mg/dL Creatinine (0.7-1.2) MG/DL Est GFR ( Amer) Est GFR (Non-Af Amer) POC Glucose (mg/dL) (65-110) mg/dL Random Glucose (65-105) mg/dL Calcium (8.6-10.4) mg/dl Phosphorus (2.5-4.5) mg/dL Magnesium (1.6-2.3) mg/dL Iron (37-170) ug/dL TIBC (250-450) ug/dL % Saturation (20-55) Total Bilirubin (0.2-1.3) mg/dL Direct Bilirubin 7.3 H (0.0-0.4) mg/dL AST (14-36) U/L ALT (9-52) U/L Alkaline Phosphatase (38-126) U/L Total Protein (6.3-8.3) g/dL Albumin (3.5-5.0) g/dL Globulin (2.2-3.9) gm/dL Albumin/Globulin Ratio (1.0-2.1) IgG (700.0-1600.0) mg/dL IgA (70.0-400.0) mg/dL IgM (40.0-230.0) mg/dL Hepatitis A IgM Ab (NEGATIVE) Hep Bs Antigen (NEGATIVE) Hep B Core IgM Ab (NEGATIVE) Hepatitis C Antibody (NEGATIVE) Blood Type B POSITIVE Antibody Screen Negative Crossmatch See Detail Laboratory Results - last 24 hr 10/25/16 10/25/16 10/25/16 17:00 21:10 21:10 WBC 28.0 H RBC 3.01 L Hgb 9.6 L Hct 29.5 L MCV 97.7 D MCH 32.0 H MCHC 32.7 L RDW 21.2 H Plt Count 148 MPV 10.0 Neut % (Auto) Lymph % (Auto) [place] % (Auto) Eos % (Auto) Baso % (Auto) Neut # Lymph # [place] # Eos # Baso # Neutrophils % (Manual) Band Neutrophils % Lymphocytes % (Manual) Monocytes % (Manual) Myelocytes % Platelet Estimate Polychromasia Hypochromasia (manual) Anisocytosis (manual) Macrocytosis (manual) Target Cells Sodium Potassium Chloride Carbon Dioxide Anion Gap BUN Creatinine Est GFR ( Amer) Est GFR (Non-Af Amer) POC Glucose (mg/dL) Random Glucose Calcium Phosphorus Magnesium Iron TIBC % Saturation Total Bilirubin Direct Bilirubin 7.3 H AST ALT Alkaline Phosphatase Total Protein Albumin Globulin Albumin/Globulin Ratio IgG IgA IgM Hepatitis A IgM Ab Hep Bs Antigen Hep B Core IgM Ab Hepatitis C Antibody Blood Type B POSITIVE Antibody Screen Negative Crossmatch See Detail 10/25/16 10/26/16 10/26/16 21:52 00:58 06:31 WBC RBC Hgb Hct MCV MCH MCHC RDW Plt Count MPV Neut % (Auto) Lymph % (Auto) [place] % (Auto) Eos % (Auto) Baso % (Auto) Neut # Lymph # [place] # Eos # Baso # Neutrophils % (Manual) Band Neutrophils % Lymphocytes % (Manual) Monocytes % (Manual) Myelocytes % Platelet Estimate Polychromasia Hypochromasia (manual) Anisocytosis (manual) Macrocytosis (manual) Target Cells Sodium Potassium Chloride Carbon Dioxide Anion Gap BUN Creatinine Est GFR ( Amer) Est GFR (Non-Af Amer) POC Glucose (mg/dL) 283 H 251 H 220 H Random Glucose Calcium Phosphorus Magnesium Iron TIBC % Saturation Total Bilirubin Direct Bilirubin AST ALT Alkaline Phosphatase Total Protein Albumin Globulin Albumin/Globulin Ratio IgG IgA IgM Hepatitis A IgM Ab Hep Bs Antigen Hep B Core IgM Ab Hepatitis C Antibody Blood Type Antibody Screen Crossmatch 10/26/16 10/26/16 10/26/16 06:38 06:38 11:42 WBC 21.7 H RBC 2.98 L Hgb 9.6 L Hct 29.1 L MCV 97.8 MCH 32.4 H MCHC 33.1 RDW 22.1 H Plt Count 167 MPV 10.1 Neut % (Auto) 85.7 H Lymph % (Auto) 7.1 L [place] % (Auto) 5.8 Eos % (Auto) 0.4 Baso % (Auto) 1.0 Neut # 18.6 H Lymph # 1.5 [place] # 1.3 H Eos # 0.1 Baso # 0.2 Neutrophils % (Manual) 88 H Band Neutrophils % 2 Lymphocytes % (Manual) 6 L Monocytes % (Manual) 3 Myelocytes % 1 H Platelet Estimate Normal Polychromasia Slight Hypochromasia (manual) Slight Anisocytosis (manual) Moderate Macrocytosis (manual) Slight Target Cells Slight Sodium 133 Potassium 3.7 Chloride 98 Carbon Dioxide 21 L Anion Gap 18 BUN 49 H Creatinine 1.9 H Est GFR ( Amer) 31 Est GFR (Non-Af Amer) 26 POC Glucose (mg/dL) 137 H Random Glucose 226 H Calcium 8.3 L Phosphorus 5.0 H Magnesium 1.7 Iron TIBC % Saturation Total Bilirubin 8.8 H Direct Bilirubin AST 39 H ALT 18 Alkaline Phosphatase 214 H Total Protein 6.6 Albumin 2.1 L Globulin 4.5 H Albumin/Globulin Ratio 0.5 L IgG IgA IgM Hepatitis A IgM Ab Hep Bs Antigen Hep B Core IgM Ab Hepatitis C Antibody Blood Type Antibody Screen Crossmatch 10/26/16 10/26/16 10/26/16 15:32 15:32 15:32 WBC RBC Hgb Hct MCV MCH MCHC RDW Plt Count MPV Neut % (Auto) Lymph % (Auto) [place] % (Auto) Eos % (Auto) Baso % (Auto) Neut # Lymph # [place] # Eos # Baso # Neutrophils % (Manual) Band Neutrophils % Lymphocytes % (Manual) Monocytes % (Manual) Myelocytes % Platelet Estimate Polychromasia Hypochromasia (manual) Anisocytosis (manual) Macrocytosis (manual) Target Cells Sodium Potassium Chloride Carbon Dioxide Anion Gap BUN Creatinine Est GFR ( Amer) Est GFR (Non-Af Amer) POC Glucose (mg/dL) Random Glucose Calcium Phosphorus Magnesium Iron 70 TIBC 111 L % Saturation 63 H Total Bilirubin Direct Bilirubin AST ALT Alkaline Phosphatase Total Protein Albumin Globulin Albumin/Globulin Ratio IgG 2702.0 H IgA 562.3 H IgM 126.1 Hepatitis A IgM Ab Negative Hep Bs Antigen Negative Hep B Core IgM Ab Negative Hepatitis C Antibody Negative Blood Type Antibody Screen Crossmatch Assessment/Plan (1) Lower GI bleed Current Visit: Yes Status: Acute (2) Leucocytosis Current Visit: Yes Status: Acute (3) CKD (chronic kidney disease) stage 3, GFR 30-59 ml/min Current Visit: No Status: Acute (4) ESRD (end stage renal disease) on dialysis Current Visit: No Status: Chronic Attending/Attestation - Attestation I have personally seen and examined this patient.: Yes I have fully participated in the care of the patient.: Yes I have reviewed all pertinent clinical information: Yes Notes (Text): 10/26/16 17:13 patient seen and examined in the intensive care unit. Case discussed with house staff in the morning rounds. On ventilatory support status post trach The active bleeding Getting hemodialysis Status post transfusion of 2 units packed RBCs For CAT scan of the chest and possible thoracentesis Continue antibiotics Seen by escapement maker
[2016-10-26] MEDS ORDERED: Albumin Human 25% (12.5 gm/50 ml) IV ONE ×2 (14:36→16:10)
--- NOTE | 2016-10-26 15:40 | CP.PCM.CON ---
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 Per pt's daughter they noticed bright blood per rectum and large amounts of blood clots and it progressively worsened. Pt was started on Levophed and given 1 U PRBCs at LTAC. In ER, pt was witnessed to have BRBPR and started on IV protonix drip. Pt has a remote hx of colonoscopy in [place]. Also, pt was found to have elated bilirumbin and when asked daughter she reports that her baseline is 3 and was as high as 10 at [facility] were she was started on antifungal drug. Will attempt to get MR from [facility]. Per nursing over night, pt had moderate BM this morning with bright blood mixed in stool. Pt's Hgb on presentation was 8.6 and now is 9.6 after blood transfusion. Pt has an NGT in place with no signs of bleeding. Per daughter NGT has been in place for 1 month and plan is to eventually get a PEG however there are concerns with placing a PEG tube as pt has abdominal edema from fluid overload so her GI doctor is waiting on ideal volume status. Pt on HD at present time. On ventilator. Receiving SPA during HD. CT scan of chest/ abdomen/pelvis pending to evaluate high bilirubin. Review of Systems - Review of Systems Systems not reviewed;Unavailable: Altered Mental Status Past Patient History - Infectious Disease Hx of Infectious Diseases: None - Past Medical History & Family History Past Medical History?: Yes - Past Social History Smoking Status: Never Smoked - CARDIAC Hx Congestive Heart Failure: Yes Hx Hypercholesterolemia: Yes Hx Hypertension: Yes Hx Peripheral Edema: Yes - PULMONARY Hx Respiratory Disorders: Yes Other/Comment: hx of thoracentesis,recurrent pleural effusion - NEUROLOGICAL Hx Neurological Disorder: No - HEENT Hx HEENT Problems: Yes Other/Comment: hard of hearing - RENAL Hx Chronic Kidney Disease: Yes - ENDOCRINE/METABOLIC Hx Hypothyroidism: Yes - HEMATOLOGICAL/ONCOLOGICAL Hx Blood Disorders: No - INTEGUMENTARY Hx Dermatological Problems: No - MUSCULOSKELETAL/RHEUMATOLOGICAL Hx Musculoskeletal Disorders: No Hx Falls: No - GASTROINTESTINAL Hx Crohn's Disease: No Hx Diverticulitis: No - GENITOURINARY/GYNECOLOGICAL Hx Genitourinary Disorders: Yes Hx Urinary Tract Infection: Yes (2006) Other/Comment: ureteral stent placed 06/2015 - PSYCHIATRIC Hx Substance Use: No - SURGICAL HISTORY Hx Coronary Artery Bypass Graft: Yes (2001) Hx Coronary Stent: Yes (x3 in 2006) - ANESTHESIA Hx Anesthesia: Yes Hx Anesthesia Reactions: No Hx Malignant Hyperthermia: No Meds Allergies/Adverse Reactions: Allergies Allergy/AdvReac Type Severity Reaction Status Date / Time Sulfa (Sulfonamide Allergy RASH Verified 10/25/16 15:46 Antibiotics) - Medications Medications: Current Medications Epoetin Sly (Procrit) 10,000 unit IV MWF [facility] Norepinephrine Bitartrate 4 mg (/ Dextrose) 254 mls @ 7.62 mls/hr IV .Q24H PRN ; Protocol; 2 MCG/MIN PRN Reason: TITRATE PER MD ORDER Last Admin: 10/25/16 16:32 Dose: 7.62 mls/hr Meropenem 500 mg/ Sodium (Chloride) 100 mls @ 100 mls/hr IVPB Q24H [facility] Last Admin: 10/25/16 19:15 Dose: 100 mls/hr Insulin Human Regular (Novolin R) 0 unit SC Q6 REKHA PRN Reason: Protocol Last Admin: 10/26/16 11:53 Dose: Not Given Levothyroxine Sodium (Synthroid) 200 mcg PO DAILY@0630 [facility] Last Admin: 10/26/16 06:08 Dose: 200 mcg Lorazepam (Ativan) 1 mg IVP Q4 PRN PRN Reason: Agitation Pantoprazole Sodium (Protonix Inj) 40 mg IVP DAILY [facility] Last Admin: 10/26/16 11:55 Dose: Not Given Vancomycin HCl (Vancocin (Oral Or Rectal Use)) 125 mg PO Q6H [facility] Last Admin: 10/26/16 06:07 Dose: 125 mg Physical Exam - Constitutional Appears: No Acute Distress, Chronically Ill - Head Exam Additional comments: temporal wasting - Eye Exam Eye Exam: EOMI - ENT Exam Additional comments: tracheostomy - Neck Exam Neck exam: Positive for: Full Rom. Negative for: Lymphadenopathy - Respiratory Exam Respiratory Exam: Decreased Breath Sounds. absent: Wheezes - Cardiovascular Exam Cardiovascular Exam: absent: Rubs - Extremities Exam Extremities exam: Negative for: pedal edema Results - Vital Signs Recent Vital Signs: Last Vital Signs Temp 100.4 F H 10/26/16 08:00 Pulse 97 H 10/26/16 09:30 Resp 33 H 10/26/16 09:30 BP 105/44 L 10/26/16 09:01 Pulse Ox 100 10/26/16 09:30 - Labs Result Diagrams: 10/26/16 06:38 10/26/16 06:38 Labs: Laboratory Results - last 24 hr 10/25/16 10/25/16 10/25/16 16:33 16:33 16:33 WBC 25.2 H D RBC 2.63 L Hgb 8.6 L Hct 26.3 L MCV 100.0 H D MCH 32.7 H MCHC 32.7 L RDW 24.7 H Plt Count 161 MPV 10.2 Neut % (Auto) 85.0 H Lymph % (Auto) 7.2 L [place] % (Auto) 6.5 Eos % (Auto) 0.3 Baso % (Auto) 1.0 Neut # 21.4 H Lymph # 1.8 [place] # 1.6 H Eos # 0.1 Baso # 0.3 H Neutrophils % (Manual) 78 H Band Neutrophils % 2 Lymphocytes % (Manual) 6 L Monocytes % (Manual) 7 Metamyelocytes % 3 H Myelocytes % 4 H Platelet Estimate Normal Polychromasia Hypochromasia (manual) Slight Poikilocytosis (manual Slight Anisocytosis (manual) Slight Macrocytosis (manual) Target Cells Slight PT 18.0 H INR 1.6 APTT 49 H Sodium 132 Potassium 3.7 Chloride 96 L Carbon Dioxide 24 Anion Gap 16 BUN 42 H Creatinine 1.7 H Est GFR ( Amer) 36 Est GFR (Non-Af Amer) 29 POC Glucose (mg/dL) Random Glucose 334 H Calcium 8.3 L Phosphorus Magnesium Total Bilirubin 8.3 H Direct Bilirubin AST 38 H D ALT 26 Alkaline Phosphatase 214 H Troponin I < 0.0120 Total Protein 6.6 Albumin 2.1 L Globulin 4.5 H Albumin/Globulin Ratio 0.5 L Stool Occult Blood Blood Type Antibody Screen Crossmatch 10/25/16 10/25/16 10/25/16 16:33 17:00 21:10 WBC 28.0 H RBC 3.01 L Hgb 9.6 L Hct 29.5 L MCV 97.7 D MCH 32.0 H MCHC 32.7 L RDW 21.2 H Plt Count 148 MPV 10.0 Neut % (Auto) Lymph % (Auto) [place] % (Auto) Eos % (Auto) Baso % (Auto) Neut # Lymph # [place] # Eos # Baso # Neutrophils % (Manual) Band Neutrophils % Lymphocytes % (Manual) Monocytes % (Manual) Metamyelocytes % Myelocytes % Platelet Estimate Polychromasia Hypochromasia (manual) Poikilocytosis (manual Anisocytosis (manual) Macrocytosis (manual) Target Cells PT INR APTT Sodium Potassium Chloride Carbon Dioxide Anion Gap BUN Creatinine Est GFR ( Amer) Est GFR (Non-Af Amer) POC Glucose (mg/dL) Random Glucose Calcium Phosphorus Magnesium Total Bilirubin Direct Bilirubin AST ALT Alkaline Phosphatase Troponin I Total Protein Albumin Globulin Albumin/Globulin Ratio Stool Occult Blood Positive H Blood Type B POSITIVE Antibody Screen Negative Crossmatch See Detail 10/25/16 10/25/16 10/26/16 21:10 21:52 00:58 WBC RBC Hgb Hct MCV MCH MCHC RDW Plt Count MPV Neut % (Auto) Lymph % (Auto) [place] % (Auto) Eos % (Auto) Baso % (Auto) Neut # Lymph # [place] # Eos # Baso # Neutrophils % (Manual) Band Neutrophils % Lymphocytes % (Manual) Monocytes % (Manual) Metamyelocytes % Myelocytes % Platelet Estimate Polychromasia Hypochromasia (manual) Poikilocytosis (manual Anisocytosis (manual) Macrocytosis (manual) Target Cells PT INR APTT Sodium Potassium Chloride Carbon Dioxide Anion Gap BUN Creatinine Est GFR ( Amer) Est GFR (Non-Af Amer) POC Glucose (mg/dL) 283 H 251 H Random Glucose Calcium Phosphorus Magnesium Total Bilirubin Direct Bilirubin 7.3 H AST ALT Alkaline Phosphatase Troponin I Total Protein Albumin Globulin Albumin/Globulin Ratio Stool Occult Blood Blood Type Antibody Screen Crossmatch 10/26/16 10/26/16 10/26/16 06:31 06:38 06:38 WBC 21.7 H RBC 2.98 L Hgb 9.6 L Hct 29.1 L MCV 97.8 MCH 32.4 H MCHC 33.1 RDW 22.1 H Plt Count 167 MPV 10.1 Neut % (Auto) 85.7 H Lymph % (Auto) 7.1 L [place] % (Auto) 5.8 Eos % (Auto) 0.4 Baso % (Auto) 1.0 Neut # 18.6 H Lymph # 1.5 [place] # 1.3 H Eos # 0.1 Baso # 0.2 Neutrophils % (Manual) 88 H Band Neutrophils % 2 Lymphocytes % (Manual) 6 L Monocytes % (Manual) 3 Metamyelocytes % Myelocytes % 1 H Platelet Estimate Normal Polychromasia Slight Hypochromasia (manual) Slight Poikilocytosis (manual Anisocytosis (manual) Moderate Macrocytosis (manual) Slight Target Cells Slight PT INR APTT Sodium 133 Potassium 3.7 Chloride 98 Carbon Dioxide 21 L Anion Gap 18 BUN 49 H Creatinine 1.9 H Est GFR ( Amer) 31 Est GFR (Non-Af Amer) 26 POC Glucose (mg/dL) 220 H Random Glucose 226 H Calcium 8.3 L Phosphorus 5.0 H Magnesium 1.7 Total Bilirubin 8.8 H Direct Bilirubin AST 39 H ALT 18 Alkaline Phosphatase 214 H Troponin I Total Protein 6.6 Albumin 2.1 L Globulin 4.5 H Albumin/Globulin Ratio 0.5 L Stool Occult Blood Blood Type Antibody Screen Crossmatch 10/26/16 11:42 WBC RBC Hgb Hct MCV MCH MCHC RDW Plt Count MPV Neut % (Auto) Lymph % (Auto) [place] % (Auto) Eos % (Auto) Baso % (Auto) Neut # Lymph # [place] # Eos # Baso # Neutrophils % (Manual) Band Neutrophils % Lymphocytes % (Manual) Monocytes % (Manual) Metamyelocytes % Myelocytes % Platelet Estimate Polychromasia Hypochromasia (manual) Poikilocytosis (manual Anisocytosis (manual) Macrocytosis (manual) Target Cells PT INR APTT Sodium Potassium Chloride Carbon Dioxide Anion Gap BUN Creatinine Est GFR ( Amer) Est GFR (Non-Af Amer) POC Glucose (mg/dL) 137 H Random Glucose Calcium Phosphorus Magnesium Total Bilirubin Direct Bilirubin AST ALT Alkaline Phosphatase Troponin I Total Protein Albumin Globulin Albumin/Globulin Ratio Stool Occult Blood Blood Type Antibody Screen Crossmatch Assessment & Plan - Assessment and Plan (Free Text) Assessment: dialysis dependent volume overload, repeat HD in am with spa pressor support monitor hemoglobin f/u ct scan of c/a/p
[2016-10-26 15:52] LABS: IRON 70 ug/dL (37-170)
[2016-10-26 15:59] LABS: IMMUNOGLOBULIN M 126.1 mg/dL (40.0-230.0)
[2016-10-26 16:00] LABS: IMMUNOGLOBULIN A 562.3 mg/dL (70.0-400.0)
[2016-10-26] MEDS: EPOETIN ALFA 10,000 UNIT/ML ML IV SCH (16:10)
--- NOTE | 2016-10-26 16:28 | CT ---
PROCEDURE: CT Chest, Abdomen and Pelvis without intravenous contrast HISTORY: eval effusion vs empyema COMPARISON: None. TECHNIQUE: Radiation dose: Total exam DLP = 818.18 mGy-cm. This CT exam was performed using one or more of the following dose reduction techniques: Automated exposure control, adjustment of the mA and/or kV according to patient size, and/or use of iterative reconstruction technique. FINDINGS: CT CHEST WITHOUT CONTRAST: LUNGS: There are patchy alveolar opacities noted bilaterally, right greater than left, without confluence. This is a nonspecific finding. There is interlobular septal thickening noted in the right apex, nonspecific. There is bilateral lower lobe subsegmental/ compressive atelectasis. There is no pulmonary mass identified. Please note that evaluation of the lung bases is somewhat limited due to respiratory motion artifact. MEDIASTINUM: Mild cardiomegaly. Status post CABG. Normal diameter of thoracic aorta and main pulmonary artery. Right PICC catheter. Endotracheal tube and nasogastric tube. Endotracheal tube tip positioned approximately 4.8 cm above the tracheal umesh. LYMPH NODES: Unremarkable. PLEURA: Small left and moderate right pleural effusion. No loculation. BONES: Mild T6 vertebral compression deformity unchanged from 08/10/2016. Possible fracture of superior endplate of the T12 vertebra, again unchanged from prior. Unremarkable. OTHER FINDINGS: None. CT ABDOMEN AND PELVIS: LIVER: Unremarkable. No gross lesion or ductal dilatation. GALLBLADDER AND BILE DUCTS: Gallbladder contracted. No calcified gallstones. PANCREAS: Unremarkable. No gross lesion or ductal dilatation. SPLEEN: Unremarkable. ADRENALS: Unremarkable. No mass. KIDNEYS AND URETERS: Unremarkable. No hydronephrosis. No solid mass. VASCULATURE: Unremarkable. No aortic aneurysm. BOWEL: There is diffuse mural thickening of the stomach common nonspecific. A nasogastric tube is seen terminating within the gastric lumen. There is mild diffuse mural thickening of the entire rectum. Again, a nonspecific finding. There is no bowel obstruction. There is mural thickening of loops of jejunum, most clearly evident on series 6, image 111. Consistent with nonspecific enteritis. APPENDIX: Not identified PERITONEUM: There is mild generalized ascites. LYMPH NODES: Unremarkable. No enlarged lymph nodes. BLADDER: There is a right posterior bladder diverticulum. . REPRODUCTIVE: The patient is status post hysterectomy. There is a left adnexal cyst measuring 2.1 cm in diameter. This was not evident on prior CT examination of 12/03/2015. Uncertain significance. BONES: Old L2 vertebral compression deformity. OTHER FINDINGS: Generalized anasarca. IMPRESSION: Multifocal patchy alveolar opacities, right greater than left. Nonspecific. Concerning for infectious etiology. Bilateral pleural effusion, right greater than left. Bilateral lower lobe subsegmental/compressive atelectasis. ET tube and NG tube appropriately positioned. Right PICC catheter. CABG. Ascites. Generalized anasarca. Moderate diffuse thickening of gastric wall, nonspecific. Mild diffuse thickening of the rectal wall to the level of the rectosigmoid junction common nonspecific. Nonspecific enteritis involving multiple loops of jejunum. 2.1 cm left adnexal cyst, new since prior examination. Right posterior bladder diverticulum.
[2016-10-26] MEDS: Meropenem 500 MG in Sodium Chloride 0.9% 100 ML IVPB SCH (18:15)
--- NOTE | 2016-10-26 19:28 | CP.PCM.PN ---
Subjective - Date & Time of Evaluation Date of Evaluation: 10/26/16 Time of Evaluation: 19:24 - Subjective Subjective: Patient today is doing okay, patient is still on norepinephrine drip. Patient received hemodialysis today. Patient is awake and responding. She has a tracheostomy tube is on ventilator through ventilator support. No fever today. Patient the whole day did not have much bleeding, but evening she had a large amount of fresh blood in the rectal area. She is also having sacral decubiti. Vital signs otherwise are stable except on norepinephrine drip Vital signs reviewed No neck vein distention noted Chest bilateral wheezing and rales noted CVS regular heart sound, no murmur noted Abdomen soft, nontender. 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 Following only simple commands, but agitation noted Patient's labs reviewed Showing evidence of low hemoglobin 8.4 repeat 1. Chest x-ray CT of the abdomen and pelvis reveals right lung pleural disease with pleural effusion. Abdomen no evidence of ascites at this time. But the possible intestinal loops with a possible gastroenteritis. Assessment and recommendation: 76-year-old female with multiple medical problems including hypertension diabetes hypercholesteremia end-stage renal disease on dialysis status post a coronary artery bypass grafting. Patient condition complicated with the right pleural effusion, empyema, status post a tracheostomy. Currently on ventilator. Patient is having recurrent GI bleed, we'll speak to the GI for possible colonoscopy. Patient also has a history of liver disease will follow the patient Objective - Vital Signs/Intake and Output Vital Signs (last 24 hours): Temp Pulse Resp BP Pulse Ox 97.9 F 84 17 100/43 L 100 10/26/16 18:15 10/26/16 18:15 10/26/16 18:15 10/26/16 18:15 10/26/16 18:15 Intake and Output: 10/26/16 10/27/16 18:59 06:59 Intake Total 305.0 Output Total 0 Balance 305.0 - Medications Medications: Current Medications Epoetin Sly (Procrit) 10,000 unit IV [facility] Last Admin: 10/26/16 16:10 Dose: 10,000 unit Norepinephrine Bitartrate 4 mg (/ Dextrose) 254 mls @ 7.62 mls/hr IV .Q24H PRN ; Protocol; 2 MCG/MIN PRN Reason: TITRATE PER MD ORDER Last Admin: 10/25/16 16:32 Dose: 7.62 mls/hr Meropenem 500 mg/ Sodium (Chloride) 100 mls @ 100 mls/hr IVPB Q24H [facility] Last Admin: 10/26/16 18:15 Dose: 100 mls/hr Insulin Human Regular (Novolin R) 0 unit SC Q6 REKHA PRN Reason: Protocol Last Admin: 10/26/16 18:00 Dose: Not Given Levothyroxine Sodium (Synthroid) 200 mcg PO DAILY@0630 [facility] Last Admin: 10/26/16 06:08 Dose: 200 mcg Lorazepam (Ativan) 1 mg IVP Q4 PRN PRN Reason: Agitation Pantoprazole Sodium (Protonix Inj) 40 mg IVP DAILY [facility] Last Admin: 10/26/16 11:55 Dose: Not Given Vancomycin HCl (Vancocin (Oral Or Rectal Use)) 125 mg PO Q6H [facility] Last Admin: 10/26/16 18:16 Dose: 125 mg - Labs Labs: 10/26/16 18:37 10/26/16 06:38 PT 18.0 SECONDS (9.7-12.2) H 10/25/16 16:33 INR 1.6 10/25/16 16:33 APTT 49 SECONDS (21-34) H 10/25/16 16:33
--- NOTE | 2016-10-26 21:28 | CARD ---
APPROVED REPORT EKG Measurement Heart [id number] <Conclusion> Normal sinus rhythm Left axis deviation Low voltage QRS Cannot rule out Anterior infarct, age undetermined Abnormal ECG
[2016-10-26 22:29] LABS: HEMATOCRIT 25.4 % (34.0-47.0)
[2016-10-26] MEDS ORDERED: Vancomycin 1 gm/NS 200 ml 1 GM/200 ML BAG IVPB STA (22:46)
--- NOTE | 2016-10-26 23:37 | CP.PCM.CON ---
History of Present Illness - History of Present Illness History of Present Illness: Patient seen and evaluated Lethargic Past Patient History - Infectious Disease Hx of Infectious Diseases: None - Past Medical History & Family History Past Medical History?: Yes - Past Social History Smoking Status: Never Smoked - CARDIAC Hx Congestive Heart Failure: Yes Hx Hypercholesterolemia: Yes Hx Hypertension: Yes Hx Peripheral Edema: Yes - PULMONARY Hx Respiratory Disorders: Yes Other/Comment: hx of thoracentesis,recurrent pleural effusion - NEUROLOGICAL Hx Neurological Disorder: No - HEENT Hx HEENT Problems: Yes Other/Comment: hard of hearing - RENAL Hx Chronic Kidney Disease: Yes - ENDOCRINE/METABOLIC Hx Hypothyroidism: Yes - HEMATOLOGICAL/ONCOLOGICAL Hx Blood Disorders: No - INTEGUMENTARY Hx Dermatological Problems: No - MUSCULOSKELETAL/RHEUMATOLOGICAL Hx Musculoskeletal Disorders: No Hx Falls: No - GASTROINTESTINAL Hx Crohn's Disease: No Hx Diverticulitis: No - GENITOURINARY/GYNECOLOGICAL Hx Genitourinary Disorders: Yes Hx Urinary Tract Infection: Yes (2006) Other/Comment: ureteral stent placed 06/2015 - PSYCHIATRIC Hx Substance Use: No - SURGICAL HISTORY Hx Coronary Artery Bypass Graft: Yes (2001) Hx Coronary Stent: Yes (x3 in 2006) - ANESTHESIA Hx Anesthesia: Yes Hx Anesthesia Reactions: No Hx Malignant Hyperthermia: No Meds Allergies/Adverse Reactions: Allergies Allergy/AdvReac Type Severity Reaction Status Date / Time Sulfa (Sulfonamide Allergy RASH Verified 10/25/16 15:46 Antibiotics) - Medications Medications: Current Medications Epoetin Sly (Procrit) 10,000 unit IV MWF [facility] Last Admin: 10/26/16 16:10 Dose: 10,000 unit Norepinephrine Bitartrate 4 mg (/ Dextrose) 254 mls @ 7.62 mls/hr IV .Q24H PRN ; Protocol; 2 MCG/MIN PRN Reason: TITRATE PER MD ORDER Last Admin: 10/26/16 20:08 Dose: 5.9 mcg/min, 22.47 mls/hr Meropenem 500 mg/ Sodium (Chloride) 100 mls @ 100 mls/hr IVPB Q24H [facility] Last Admin: 10/26/16 18:15 Dose: 100 mls/hr Vancomycin/Sodium Chloride (Vancocin) 1 gm in 200 mls @ 133 mls/hr IVPB STAT STA Stop: 10/27/16 00:16 Last Admin: 10/26/16 23:16 Dose: 133 mls/hr Insulin Human Regular (Novolin R) 0 unit SC Q6 [facility] PRN Reason: Protocol Last Admin: 10/26/16 18:00 Dose: Not Given Levothyroxine Sodium (Synthroid) 200 mcg PO DAILY@0630 [facility] Last Admin: 10/26/16 06:08 Dose: 200 mcg Lorazepam (Ativan) 1 mg IVP Q4 PRN PRN Reason: Agitation Pantoprazole Sodium (Protonix Inj) 40 mg IVP DAILY [facility] Last Admin: 10/26/16 11:55 Dose: Not Given Vancomycin HCl (Vancocin (Oral Or Rectal Use)) 125 mg PO Q6H [facility] Last Admin: 10/26/16 18:16 Dose: 125 mg Results - Vital Signs Recent Vital Signs: Last Vital Signs Temp 97.9 F 10/26/16 18:15 Pulse 81 10/26/16 20:08 Resp 14 10/26/16 20:08 BP 108/49 L 10/26/16 20:08 Pulse Ox 100 10/26/16 20:08 - Labs Result Diagrams: 10/26/16 22:15 10/26/16 06:38 Labs: Laboratory Results - last 24 hr 10/26/16 10/26/16 10/26/16 00:58 06:31 06:38 WBC RBC Hgb Hct MCV MCH MCHC RDW Plt Count MPV Neut % (Auto) Lymph % (Auto) Lawrence % (Auto) Eos % (Auto) Baso % (Auto) Neut # Lymph # Lawrence # Eos # Baso # Neutrophils % (Manual) Band Neutrophils % Lymphocytes % (Manual) Monocytes % (Manual) Myelocytes % Platelet Estimate Polychromasia Hypochromasia (manual) Anisocytosis (manual) Macrocytosis (manual) Target Cells Sodium 133 Potassium 3.7 Chloride 98 Carbon Dioxide 21 L Anion Gap 18 BUN 49 H Creatinine 1.9 H Est GFR ( Amer) 31 Est GFR (Non-Af Amer) 26 POC Glucose (mg/dL) 251 H 220 H Random Glucose 226 H Calcium 8.3 L Phosphorus 5.0 H Magnesium 1.7 Iron TIBC % Saturation Total Bilirubin 8.8 H AST 39 H ALT 18 Alkaline Phosphatase 214 H Total Protein 6.6 Albumin 2.1 L Globulin 4.5 H Albumin/Globulin Ratio 0.5 L IgG IgA IgM Hepatitis A IgM Ab Hep Bs Antigen Hep B Core IgM Ab Hepatitis C Antibody 10/26/16 10/26/16 10/26/16 06:38 11:42 15:32 WBC 21.7 H RBC 2.98 L Hgb 9.6 L Hct 29.1 L MCV 97.8 MCH 32.4 H MCHC 33.1 RDW 22.1 H Plt Count 167 MPV 10.1 Neut % (Auto) 85.7 H Lymph % (Auto) 7.1 L Lawrence % (Auto) 5.8 Eos % (Auto) 0.4 Baso % (Auto) 1.0 Neut # 18.6 H Lymph # 1.5 Lawrence # 1.3 H Eos # 0.1 Baso # 0.2 Neutrophils % (Manual) 88 H Band Neutrophils % 2 Lymphocytes % (Manual) 6 L Monocytes % (Manual) 3 Myelocytes % 1 H Platelet Estimate Normal Polychromasia Slight Hypochromasia (manual) Slight Anisocytosis (manual) Moderate Macrocytosis (manual) Slight Target Cells Slight Sodium Potassium Chloride Carbon Dioxide Anion Gap BUN Creatinine Est GFR ( Amer) Est GFR (Non-Af Amer) POC Glucose (mg/dL) 137 H Random Glucose Calcium Phosphorus Magnesium Iron TIBC % Saturation Total Bilirubin AST ALT Alkaline Phosphatase Total Protein Albumin Globulin Albumin/Globulin Ratio IgG IgA IgM Hepatitis A IgM Ab Negative Hep Bs Antigen Negative Hep B Core IgM Ab Negative Hepatitis C Antibody Negative 10/26/16 10/26/16 10/26/16 15:32 15:32 17:10 WBC RBC Hgb Hct MCV MCH MCHC RDW Plt Count MPV Neut % (Auto) Lymph % (Auto) Lawrence % (Auto) Eos % (Auto) Baso % (Auto) Neut # Lymph # Lawrence # Eos # Baso # Neutrophils % (Manual) Band Neutrophils % Lymphocytes % (Manual) Monocytes % (Manual) Myelocytes % Platelet Estimate Polychromasia Hypochromasia (manual) Anisocytosis (manual) Macrocytosis (manual) Target Cells Sodium Potassium Chloride Carbon Dioxide Anion Gap BUN Creatinine Est GFR ( Amer) Est GFR (Non-Af Amer) POC Glucose (mg/dL) 91 Random Glucose Calcium Phosphorus Magnesium Iron 70 TIBC 111 L % Saturation 63 H Total Bilirubin AST ALT Alkaline Phosphatase Total Protein Albumin Globulin Albumin/Globulin Ratio IgG 2702.0 H IgA 562.3 H IgM 126.1 Hepatitis A IgM Ab Hep Bs Antigen Hep B Core IgM Ab Hepatitis C Antibody 07/05/17 07/05/17 18:37 22:15 WBC RBC Hgb 8.4 L 8.5 L Hct 25.0 L 25.4 L MCV MCH MCHC RDW Plt Count MPV Neut % (Auto) Lymph % (Auto) Lawrence % (Auto) Eos % (Auto) Baso % (Auto) Neut # Lymph # Lawrence # Eos # Baso # Neutrophils % (Manual) Band Neutrophils % Lymphocytes % (Manual) Monocytes % (Manual) Myelocytes % Platelet Estimate Polychromasia Hypochromasia (manual) Anisocytosis (manual) Macrocytosis (manual) Target Cells Sodium Potassium Chloride Carbon Dioxide Anion Gap BUN Creatinine Est GFR ( Amer) Est GFR (Non-Af Amer) POC Glucose (mg/dL) Random Glucose Calcium Phosphorus Magnesium Iron TIBC % Saturation Total Bilirubin AST ALT Alkaline Phosphatase Total Protein Albumin Globulin Albumin/Globulin Ratio IgG IgA IgM Hepatitis A IgM Ab Hep Bs Antigen Hep B Core IgM Ab Hepatitis C Antibody
[2016-10-27] MEDS: Vancomycin 125 MG/5 ML SOLN (ORAL/RECTAL) PO SCH ×4 (00:59→18:33)
[2016-10-27] MEDS: (Novolin R) Insulin Human Regular 100 units/ml vial SC SCH ×4 (01:00→18:10)
[2016-10-27] MEDS: Levothyroxine 200 MCG TAB PO SCH (06:24)
[2016-10-27 06:48] LABS: HEMATOCRIT 25.6 % (34.0-47.0); MEAN CELL VOLUME 98.3 fL (81.0-99.0); MEAN CORPUSCULAR HEMOGLOBIN 33.1 pg (27.0-31.0); MEAN CORPUSCULAR HGB CONC 33.6 g/dL (33.0-37.0); RED CELL DISTRIBUTION WIDTH 22.3 % (11.5-14.5); WHITE BLOOD COUNT 20.8 K/uL (4.8-10.8)
[2016-10-27 07:00] LABS: POTASSIUM 3.3 mmol/L (3.6-5.2)
[2016-10-27 07:02] LABS: ALB/GLOB RATIO 0.5 (1.0-2.1); BILIRUBIN,TOTAL 9.1 mg/dL (0.2-1.3); TOTAL PROTEIN 6.9 g/dL (6.3-8.3)
[2016-10-27 07:03] LABS: CALCIUM 8.1 mg/dl (8.6-10.4); MAGNESIUM 1.6 mg/dL (1.6-2.3); PHOSPHOROUS 3.8 mg/dL (2.5-4.5)
--- NOTE | 2016-10-27 09:19 | CP.PCM.PN ---
Subjective - Date & Time of Evaluation Date of Evaluation: 10/27/16 Time of Evaluation: 09:16 - Subjective Subjective: Awake, on vent via trach. s/p dialysis 10/26. Remains on IV levophed at 5 mcg/min Still with melena; had received recent blood transfusions prbs 10/26 Scheduled for extra dialysis today for fluid overload +GPCs cultures- received IV vanco K repleted today Objective - Vital Signs/Intake and Output Vital Signs (last 24 hours): Temp Pulse Resp BP Pulse Ox 98.7 F 77 21 107/28 L 100 10/27/16 04:00 10/27/16 07:26 10/27/16 07:26 10/27/16 07:26 10/27/16 07:26 Intake and Output: 10/27/16 10/27/16 06:59 18:59 Intake Total 1065.4 26.3 Output Total 152 0 Balance 913.4 26.3 - Medications Medications: Current Medications Epoetin Sly (Procrit) 10,000 unit IV MWF [facility] Last Admin: 10/26/16 16:10 Dose: 10,000 unit Norepinephrine Bitartrate 4 mg (/ Dextrose) 254 mls @ 7.62 mls/hr IV .Q24H PRN ; Protocol; 2 MCG/MIN PRN Reason: TITRATE PER MD ORDER Last Admin: 10/27/16 07:26 Dose: 6.9 mcg/min, 26.28 mls/hr Meropenem 500 mg/ Sodium (Chloride) 100 mls @ 100 mls/hr IVPB Q24H [facility] Last Admin: 10/26/16 18:15 Dose: 100 mls/hr Potassium Chloride (Potassium Chloride 20 Meq/100 Ml) 20 meq in 100 mls @ 50 mls/hr IVPB ONCE ONE Stop: 10/27/16 10:44 Potassium Chloride (Potassium Chloride 20 Meq/100 Ml) 20 meq in 100 mls @ 50 mls/hr IVPB ONCE ONE Stop: 10/27/16 12:59 Insulin Human Regular (Novolin R) 0 unit SC Q6 [facility] PRN Reason: Protocol Last Admin: 10/27/16 06:13 Dose: Not Given Levothyroxine Sodium (Synthroid) 200 mcg PO DAILY@0630 [facility] Last Admin: 10/27/16 06:24 Dose: 200 mcg Lorazepam (Ativan) 1 mg IVP Q4 PRN PRN Reason: Agitation Pantoprazole Sodium (Protonix Inj) 40 mg IVP DAILY [facility] Last Admin: 10/26/16 11:55 Dose: Not Given Vancomycin HCl (Vancocin (Oral Or Rectal Use)) 125 mg PO Q6H [facility] Last Admin: 10/27/16 06:22 Dose: 125 mg - Labs Labs: 10/27/16 06:34 10/27/16 06:34 PT 18.0 SECONDS (9.7-12.2) H 10/25/16 16:33 INR 1.6 10/25/16 16:33 APTT 49 SECONDS (21-34) H 10/25/16 16:33 - Constitutional Appears: In Acute Distress, Chronically Ill - Head Exam Head Exam: ATRAUMATIC, NORMAL INSPECTION - Eye Exam Eye Exam: EOMI, Normal appearance - Neck Exam Neck Exam: Normal Inspection. absent: Tenderness - Respiratory Exam Respiratory Exam: Rales, Respiratory Distress - Cardiovascular Exam Cardiovascular Exam: REGULAR RHYTHM, +S1 - GI/Abdominal Exam GI & Abdominal Exam: Soft. absent: Tenderness - Extremities Exam Extremities Exam: Normal Inspection, Tenderness - Neurological Exam Neurological Exam: Awake, CN II-XII Intact - Skin Skin Exam: Dry, Warm Assessment and Plan (1) Lower GI bleed Status: Acute (2) Diabetic nephropathy with proteinuria Status: Acute (3) CHF (congestive heart failure) Status: Chronic (4) ESRD (end stage renal disease) on dialysis Status: Chronic - Assessment and Plan (Free Text) Plan: Dialysis today/ repeat in AM Treat bacteremia Transfuse as necessary Possible colonoscopy Replete K
--- NOTE | 2016-10-27 11:27 | CP.PCM.PN ---
<MundoIrasema - Last Filed: 10/27/16 12:06> Subjective - Date & Time of Evaluation Date of Evaluation: 10/27/16 Time of Evaluation: 06:00 - Subjective Subjective: PGY4 GI Fellow Progress Note Pt seen and examined at bedside. Pt is still on pressor support with Levophed 5mcq with SBP 90s. Pt tolerated HD yesterday with no complications. Per nursing , last night pt had three small amounts of dark brown stool with mixed dark red blood and repeat Hgb at 10pm was 8.5, no further blood transfusions were ordered and TF were held. At the time of evaluation in the morning, pt had dark brown stool mixed with bright red blood however during rounds pt had moderate amount of jozef dark blood with clots oozing from rectum. ROS: A 12pt ROS was attempted but unable to obtain 2/2 AMS Objective - Vital Signs/Intake and Output Vital Signs (last 24 hours): Temp Pulse Resp BP Pulse Ox 98.7 F 77 21 107/28 L 100 10/27/16 04:00 10/27/16 07:26 10/27/16 07:26 10/27/16 07:26 10/27/16 07:26 Intake and Output: 10/27/16 10/27/16 06:59 18:59 Intake Total 1065.4 26.3 Output Total 152 0 Balance 913.4 26.3 - Medications Medications: Current Medications Epoetin Sly (Procrit) 10,000 unit IV [facility] Last Admin: 10/26/16 16:10 Dose: 10,000 unit Norepinephrine Bitartrate 4 mg (/ Dextrose) 254 mls @ 7.62 mls/hr IV .Q24H PRN ; Protocol; 2 MCG/MIN PRN Reason: TITRATE PER MD ORDER Last Admin: 10/27/16 07:26 Dose: 6.9 mcg/min, 26.28 mls/hr Meropenem 500 mg/ Sodium (Chloride) 100 mls @ 100 mls/hr IVPB Q24H [facility] Last Admin: 10/26/16 18:15 Dose: 100 mls/hr Potassium Chloride (Potassium Chloride 20 Meq/100 Ml) 20 meq in 100 mls @ 50 mls/hr IVPB ONCE ONE Stop: 10/27/16 12:59 Insulin Human Regular (Novolin R) 0 unit SC Q6 [facility] PRN Reason: Protocol Last Admin: 10/27/16 06:13 Dose: Not Given Levothyroxine Sodium (Synthroid) 200 mcg PO DAILY@0630 [facility] Last Admin: 10/27/16 06:24 Dose: 200 mcg Lorazepam (Ativan) 1 mg IVP Q4 PRN PRN Reason: Agitation Pantoprazole Sodium (Protonix Inj) 40 mg IVP DAILY [facility] Last Admin: 10/26/16 11:55 Dose: Not Given Vancomycin HCl (Vancocin (Oral Or Rectal Use)) 125 mg PO Q6H [facility] Last Admin: 10/27/16 06:22 Dose: 125 mg - Labs Labs: 10/27/16 06:34 10/27/16 06:34 PT 18.0 SECONDS (9.7-12.2) H 10/25/16 16:33 INR 1.6 10/25/16 16:33 APTT 49 SECONDS (21-34) H 10/25/16 16:33 - Constitutional Appears: Confused, Chronically Ill - Head Exam Head Exam: ATRAUMATIC, NORMAL INSPECTION, NORMOCEPHALIC - Eye Exam Eye Exam: EOMI, Scleral icterus Pupil Exam: PERRL - ENT Exam ENT Exam: Mucous Membranes Moist, Normal External Ear Exam Additional comments: Tracheostomy - Respiratory Exam Respiratory Exam: Decreased Breath Sounds, Rhonchi Additional comments: VDRF - Cardiovascular Exam Cardiovascular Exam: Tachycardia, REGULAR RHYTHM, +S1, +S2, Murmur - GI/Abdominal Exam GI & Abdominal Exam: Distended, Soft, Normal Bowel Sounds. absent: Firm, Guarding, Rigid, Tenderness, Organomegaly - Rectal Exam Rectal Exam: Bloody Stool, Hemorrhoids Additional comments: Dark red blood with blood clots oozing - Extremities Exam Extremities Exam: Normal Inspection. absent: Joint Swelling, Pedal Edema, Tenderness - Neurological Exam Neurological Exam: Alert, Awake. absent: Oriented x3 Additional comments: Confused, unable to follow commands, VDRF - Skin Skin Exam: Dry, Warm Additional comments: Jaundice Assessment and Plan - Assessment and Plan (Free Text) Assessment: 76 year old female with h/o ESRD on HD, vent dependent respiratory failure s/p tracheostomy, CAD s/p CABG, CHF, malnutrition s/p NGT for enteral feeding, empyema on po vancomycin who pw rectal bleeding from LTAC s/p 2U PRBC transfusion with Hbg 8.5. 1. GI bleeding 2. Hyperbilirubinemia 3. Malnutrition 4. ESRD on HD 5. Leukocytes 6. Sepsis Plan: GI Bleed-Pt with active bleed, moderate amount of dark red blood with blood clots per rectum. Will order stat Hgb and transfuse as needed. Will hold colonoscopy until medically stable, pt currently on Levophed. Further workup order with Lactic acid, LDH, fibrinogen, fibrinogen degradation products. Hyperbilirubinemia-Continues to be elevated. US abd pending to r/o biliary obstruction-no obvious obstruction seen on CTA/P but it was without contrast so will order CTA/P with po contrast for further evaluation. Etiology unclear- likely 2/2 antifungal medication, hepatitis panel negative, autoimmune workup pending. MR from [facility] pending. Nutritional status-continue to hold TF with active bleed. Pt will need eventual PEG, NGT has been in place for>4 weeks and at increased risk of necrosis/ chronic sinusitis. May need IR to place PEG once medically stable. Sepsis-continue IV abx per primary team and further workup <Maurisio Young - Last Filed: 10/27/16 13:55> Objective - Vital Signs/Intake and Output Vital Signs (last 24 hours): Temp Pulse Resp BP Pulse Ox 98.7 F 77 21 107/28 L 100 10/27/16 04:00 10/27/16 07:26 10/27/16 07:26 10/27/16 07:26 10/27/16 07:26 Intake and Output: 10/27/16 10/27/16 06:59 18:59 Intake Total 1065.4 26.3 Output Total 152 0 Balance 913.4 26.3 - Medications Medications: Current Medications Epoetin Sly (Procrit) 10,000 unit IV [facility] Last Admin: 10/26/16 16:10 Dose: 10,000 unit Norepinephrine Bitartrate 4 mg (/ Dextrose) 254 mls @ 7.62 mls/hr IV .Q24H PRN ; Protocol; 2 MCG/MIN PRN Reason: TITRATE PER MD ORDER Last Admin: 10/27/16 07:26 Dose: 6.9 mcg/min, 26.28 mls/hr Meropenem 500 mg/ Sodium (Chloride) 100 mls @ 100 mls/hr IVPB Q24H [facility] Last Admin: 10/26/16 18:15 Dose: 100 mls/hr Insulin Human Regular (Novolin R) 0 unit SC Q6 [facility] PRN Reason: Protocol Last Admin: 10/27/16 06:13 Dose: Not Given Levothyroxine Sodium (Synthroid) 200 mcg PO DAILY@0630 [facility] Last Admin: 10/27/16 06:24 Dose: 200 mcg Lorazepam (Ativan) 1 mg IVP Q4 PRN PRN Reason: Agitation Pantoprazole Sodium (Protonix Inj) 40 mg IVP DAILY [facility] Last Admin: 10/27/16 11:36 Dose: 40 mg Vancomycin HCl (Vancocin (Oral Or Rectal Use)) 125 mg PO Q6H [facility] Last Admin: 10/27/16 06:22 Dose: 125 mg - Labs Labs: 10/27/16 06:34 10/27/16 06:34 PT 18.0 SECONDS (9.7-12.2) H 10/25/16 16:33 INR 1.6 10/25/16 16:33 APTT 49 SECONDS (21-34) H 10/25/16 16:33 Attending/Attestation - Attestation I have personally seen and examined this patient.: Yes I have fully participated in the care of the patient.: Yes I have reviewed all pertinent clinical information, including history, physical exam and plan: Yes Notes (Text): 10/27/16 13:42 I have seen and examined patient with GI fellow. She remains in critical care unit on vasopressor support. During time of examination she is found to have fresh red rectal bleeding with blood clot. There is no reported abdominal pain , vomiting, fever/chills. Nasogastric tube feeding was held overnight due to concern for ongoing GI bleeding. Review of vitals from today shows hypotension. ESRD on HD CAD/CABG CHF Respiratory failure, history of empyema, s/p tracheostomy Rectal bleeding Sepsis, hypotension CT imaging (without contrast) reviewed by me showing diffuse thickening of stomach and rectum, multifocal alveolar opacities, b/l pleural effusions, abdominal and josh-hepatic ascites Hyperbilirubinemia, no evidence of obstructive biliary pathology, CBD normal caliber - Patient has had chronic NGT in place for past month, will need to address alternate source of feeding in future when medically stable. Most reasonable option is IR guided gastrostomy placement given inability for endoscopic PEG placement in the presence of abdominal ascites. - Continue with antibiotic therapy - Vasopressor management as per critical care team - Continue to monitor H/H and transfuse as necessary - Continue to monitor LFTs, bilirubin. Elevation likely related to cholestasis secondary to sepsis vs DILI - Patient currently unstable to undergo endoscopic evaluation for ongoing rectal bleeding of unclear etiology, for time being would repeat CT imaging with contrast in order to better evaluate bowel. Will continue to monitor patient clinical status. - Overall patient prognosis remains poor
--- NOTE | 2016-10-27 12:35 | US ---
HISTORY: hyperbilirubinemia, sepsis COMPARISON: None. TECHNIQUE: Sonographic evaluation of the abdomen. FINDINGS: LIVER: Measures 14.2 cm. Increased echogenicity of the liver parenchyma. Perihepatic ascites. GALLBLADDER: Contracted gallbladder. Gallbladder wall thickness measures up to 5 millimeters. Negative sonographic Stevenson's sign. COMMON BILE DUCT: Measures 5.8 mm. No stones. No dilatation. PANCREAS: Limited visualization. RIGHT KIDNEY: Measures 8.4 x 3.8 x 5.1cm. Normal echogenicity. No calculus, mass, or hydronephrosis. LEFT KIDNEY: Measures 7.5 x 4.2 x 4.3cm. Normal echogenicity. No calculus, mass, or hydronephrosis. SPLEEN: Multiple echogenic foci in the spleen, nonspecific, possibly related to calcifications. AORTA: No aneurysmal dilatation. IVC: Unremarkable. OTHER FINDINGS: None. IMPRESSION: Increased echogenicity of the hepatic parenchymal cortex suggestive for fatty infiltration versus hepatic parenchymal disease. Clinical correlation. Perihepatic ascites. Contracted gallbladder with gallbladder wall thickening measuring up to 5 millimeters. Limited visualization of the pancreas. Echogenic foci within the spleen which may represent calcifications. Clinical correlation. Abdominal ascites. Pleural effusions.
[2016-10-27] MEDS ORDERED: Iohexol 240 (50 ml) PO ONE (13:30)
[2016-10-27 16:32] LABS: FIBRINOGEN 159 mg/dL (200-400)
--- NOTE | 2016-10-27 17:07 | CP.CCUPN ---
<EugeniaJavier coker Bk - Last Filed: 10/27/16 17:09> CCU Subjective - Physician Review Events Since Last Encounter (Free Text): 10/27/16 17:04 Pt S&E. For past 24 hours pt has had multiple episodes of bright blood w/ bowel movements. Remains hypotensive with pressor support. HgB 7.3 today and received another 1 unit pRBC. Being seen by GI. Pt too unstable for colonscopy at this time. Plan for CT w/ PO contrast today after HD. Critical Care Time Spent (in minutes): 30 CCU Objective - Vital Signs / Intake & Output Vital Signs (Last 4 hours): Vital Signs Temp Pulse Resp BP Pulse Ox 10/27/16 16:54 98.1 F 86 20 83/49 L 10/27/16 16:00 97 H 21 100 10/27/16 15:57 91 H 23 111/45 L 100 10/27/16 15:42 99 H 23 107/44 L 10/27/16 15:30 75 21 100 10/27/16 15:27 96 H 22 117/42 L 100 10/27/16 15:12 93 H 23 111/50 L 100 10/27/16 15:00 73 20 100 10/27/16 14:59 72 22 112/45 L 100 10/27/16 14:57 72 21 107/44 L 100 10/27/16 14:30 74 18 100 10/27/16 14:28 74 20 107/42 L 100 10/27/16 14:00 80 14 100 10/27/16 13:30 75 21 100 10/27/16 13:27 75 22 94/35 L 100 10/27/16 13:14 71 22 94/34 L 100 Intake and Output (Last 8hrs): Intake & Output 10/27/16 10/27/16 10/27/16 06:59 14:59 22:59 Intake Total 795.4 176.2 18.8 Output Total 152 0 0 Balance 643.4 176.2 18.8 Intake: IV 254.0 Intake, IV Amount 441.4 176.2 18.8 Right Distal Port PICC 191.4 176.2 18.8 Right Proximal Port PICC 250 Tube Feeding 0 0 0 Blood Product 0 Red Blood Cells Cpd As1 0 Lr Unit [id number] Other 100 Output: Urine 0 0 0 Urine, Voided 0 0 0 Stool 2 Urine/Stool Mix 150 Other: # Bowel Movements 1 1 1 - Physical Exam Extroacular Muscles: Positive for: EOMI Mouth: Positive for: Dry Neck: Positive for: Other (trach in place) Respiratory/Chest: Positive for: Rhonchi. Negative for: Clear to Auscultation ( decreased in RLL), Respiratory Distress, Accessory Muscle Use Cardiovascular: Positive for: Regular Rate and Rhythm, Other (hypotension). Negative for: Murmurs, Tachycardic Abdomen: Positive for: Distention. Negative for: Tenderness Lower Extremity: Positive for: Edema Psychiatric: Negative for: Alert - Medications Active Medications: Active Medications Generic Name Dose Route Start Last Admin Trade Name Freq PRN Reason Stop Dose Admin Epoetin Sly 10,000 unit 10/26/16 15:30 10/26/16 16:10 Procrit IV 10,000 unit MWF REKHA Administration Norepinephrine Bitartrate 4 mg 254 mls @ 7.62 mls/hr 10/25/16 15:48 10/27/16 07:26 / Dextrose IV 6.9 mcg/min .Q24H PRN 26.28 mls/hr TITRATE PER MD ORDER Administration Protocol 2 MCG/MIN Meropenem 500 mg/ Sodium 100 mls @ 100 mls/hr 10/25/16 19:00 10/26/16 18:15 Chloride IVPB 100 mls/hr Q24H REKHA Administration Insulin Human Regular 0 unit 10/26/16 06:00 10/27/16 06:13 Novolin R SC Not Given Q6 [facility] Protocol Levothyroxine Sodium 200 mcg 10/26/16 06:30 10/27/16 06:24 Synthroid PO 200 mcg DAILY@0630 REKHA Administration Lorazepam 1 mg 10/26/16 00:01 Ativan IVP Q4 PRN Agitation Pantoprazole Sodium 40 mg 10/26/16 11:30 10/27/16 11:36 Protonix Inj IVP 40 mg DAILY REKHA Administration Vancomycin HCl 125 mg 10/25/16 19:00 10/27/16 14:41 Vancocin (Oral Or Rectal Use) PO 125 mg Q6H REKHA Administration - Patient Studies Lab Studies: Microbiology Studies 10/25/16 18:49 MRSA Culture (Admit) - Final Naris MRSA DETECTED 10/25/16 17:00 Blood Culture - Preliminary Blood-Venous NO GROWTH AFTER 24 HOURS Lab Studies 10/27/16 10/27/16 10/27/16 Range/Units 15:11 15:11 14:55 WBC (4.8-10.8) K/uL RBC (3.80-5.20) Mil/uL Hgb (11.0-16.0) g/dL Hct (34.0-47.0) % MCV (81.0-99.0) fL MCH (27.0-31.0) pg MCHC (33.0-37.0) g/dL RDW (11.5-14.5) % Plt Count (130-400) K/uL MPV (7.2-11.7) fL Fibrinogen 159 L (200-400) mg/dL Sodium (132-148) mmol/L Potassium (3.6-5.2) mmol/L Chloride (98-107) mmol/L Carbon Dioxide (22-30) mmol/L Anion Gap (10-20) BUN (7-17) mg/dL Creatinine (0.7-1.2) MG/DL Est GFR ( Amer) Est GFR (Non-Af Amer) POC Glucose (mg/dL) (65-110) mg/dL Random Glucose (65-105) mg/dL Lactic Acid (0.7-2.1) mmol/L Calcium (8.6-10.4) mg/dl Phosphorus (2.5-4.5) mg/dL Magnesium (1.6-2.3) mg/dL Total Bilirubin (0.2-1.3) mg/dL AST (14-36) U/L ALT (9-52) U/L Alkaline Phosphatase (38-126) U/L Lactate Dehydrogenase 276 L (313-618) U/L Total Protein (6.3-8.3) g/dL Albumin (3.5-5.0) g/dL Globulin (2.2-3.9) gm/dL Albumin/Globulin Ratio (1.0-2.1) Blood Type B POSITIVE Antibody Screen Negative 10/27/16 10/27/16 10/27/16 Range/Units 14:55 13:42 11:28 WBC (4.8-10.8) K/uL RBC (3.80-5.20) Mil/uL Hgb 7.3 L (11.0-16.0) g/dL Hct (34.0-47.0) % MCV (81.0-99.0) fL MCH (27.0-31.0) pg MCHC (33.0-37.0) g/dL RDW (11.5-14.5) % Plt Count (130-400) K/uL MPV (7.2-11.7) fL Fibrinogen (200-400) mg/dL Sodium (132-148) mmol/L Potassium (3.6-5.2) mmol/L Chloride (98-107) mmol/L Carbon Dioxide (22-30) mmol/L Anion Gap (10-20) BUN (7-17) mg/dL Creatinine (0.7-1.2) MG/DL Est GFR ( Amer) Est GFR (Non-Af Amer) POC Glucose (mg/dL) 110 (65-110) mg/dL Random Glucose (65-105) mg/dL Lactic Acid 1.1 (0.7-2.1) mmol/L Calcium (8.6-10.4) mg/dl Phosphorus (2.5-4.5) mg/dL Magnesium (1.6-2.3) mg/dL Total Bilirubin (0.2-1.3) mg/dL AST (14-36) U/L ALT (9-52) U/L Alkaline Phosphatase (38-126) U/L Lactate Dehydrogenase (313-618) U/L Total Protein (6.3-8.3) g/dL Albumin (3.5-5.0) g/dL Globulin (2.2-3.9) gm/dL Albumin/Globulin Ratio (1.0-2.1) Blood Type Antibody Screen 10/27/16 10/27/16 10/27/16 Range/Units 06:34 06:34 05:48 WBC 20.8 H (4.8-10.8) K/uL RBC 2.60 L (3.80-5.20) Mil/uL Hgb 8.6 L (11.0-16.0) g/dL Hct 25.6 L (34.0-47.0) % MCV 98.3 (81.0-99.0) fL MCH 33.1 H (27.0-31.0) pg MCHC 33.6 (33.0-37.0) g/dL RDW 22.3 H (11.5-14.5) % Plt Count 149 (130-400) K/uL MPV 10.0 (7.2-11.7) fL Fibrinogen (200-400) mg/dL Sodium 132 (132-148) mmol/L Potassium 3.3 L (3.6-5.2) mmol/L Chloride 94 L (98-107) mmol/L Carbon Dioxide 27 (22-30) mmol/L Anion Gap 14 (10-20) BUN 25 H (7-17) mg/dL Creatinine 1.2 (0.7-1.2) MG/DL Est GFR ( Amer) 53 Est GFR (Non-Af Amer) 44 POC Glucose (mg/dL) 115 H (65-110) mg/dL Random Glucose 98 (65-105) mg/dL Lactic Acid (0.7-2.1) mmol/L Calcium 8.1 L (8.6-10.4) mg/dl Phosphorus 3.8 (2.5-4.5) mg/dL Magnesium 1.6 (1.6-2.3) mg/dL Total Bilirubin 9.1 H (0.2-1.3) mg/dL AST 50 H D (14-36) U/L ALT 16 (9-52) U/L Alkaline Phosphatase 163 H D (38-126) U/L Lactate Dehydrogenase (313-618) U/L Total Protein 6.9 (6.3-8.3) g/dL Albumin 2.3 L (3.5-5.0) g/dL Globulin 4.6 H (2.2-3.9) gm/dL Albumin/Globulin Ratio 0.5 L (1.0-2.1) Blood Type Antibody Screen 10/27/16 10/26/16 10/26/16 Range/Units 00:04 22:15 18:37 WBC (4.8-10.8) K/uL RBC (3.80-5.20) Mil/uL Hgb 8.5 L 8.4 L (11.0-16.0) g/dL Hct 25.4 L 25.0 L (34.0-47.0) % MCV (81.0-99.0) fL MCH (27.0-31.0) pg MCHC (33.0-37.0) g/dL RDW (11.5-14.5) % Plt Count (130-400) K/uL MPV (7.2-11.7) fL Fibrinogen (200-400) mg/dL Sodium (132-148) mmol/L Potassium (3.6-5.2) mmol/L Chloride (98-107) mmol/L Carbon Dioxide (22-30) mmol/L Anion Gap (10-20) BUN (7-17) mg/dL Creatinine (0.7-1.2) MG/DL Est GFR ( Amer) Est GFR (Non-Af Amer) POC Glucose (mg/dL) 95 (65-110) mg/dL Random Glucose (65-105) mg/dL Lactic Acid (0.7-2.1) mmol/L Calcium (8.6-10.4) mg/dl Phosphorus (2.5-4.5) mg/dL Magnesium (1.6-2.3) mg/dL Total Bilirubin (0.2-1.3) mg/dL AST (14-36) U/L ALT (9-52) U/L Alkaline Phosphatase (38-126) U/L Lactate Dehydrogenase (313-618) U/L Total Protein (6.3-8.3) g/dL Albumin (3.5-5.0) g/dL Globulin (2.2-3.9) gm/dL Albumin/Globulin Ratio (1.0-2.1) Blood Type Antibody Screen 10/26/16 Range/Units 17:10 WBC (4.8-10.8) K/uL RBC (3.80-5.20) Mil/uL Hgb (11.0-16.0) g/dL Hct (34.0-47.0) % MCV (81.0-99.0) fL MCH (27.0-31.0) pg MCHC (33.0-37.0) g/dL RDW (11.5-14.5) % Plt Count (130-400) K/uL MPV (7.2-11.7) fL Fibrinogen (200-400) mg/dL Sodium (132-148) mmol/L Potassium (3.6-5.2) mmol/L Chloride (98-107) mmol/L Carbon Dioxide (22-30) mmol/L Anion Gap (10-20) BUN (7-17) mg/dL Creatinine (0.7-1.2) MG/DL Est GFR ( Amer) Est GFR (Non-Af Amer) POC Glucose (mg/dL) 91 (65-110) mg/dL Random Glucose (65-105) mg/dL Lactic Acid (0.7-2.1) mmol/L Calcium (8.6-10.4) mg/dl Phosphorus (2.5-4.5) mg/dL Magnesium (1.6-2.3) mg/dL Total Bilirubin (0.2-1.3) mg/dL AST (14-36) U/L ALT (9-52) U/L Alkaline Phosphatase (38-126) U/L Lactate Dehydrogenase (313-618) U/L Total Protein (6.3-8.3) g/dL Albumin (3.5-5.0) g/dL Globulin (2.2-3.9) gm/dL Albumin/Globulin Ratio (1.0-2.1) Blood Type Antibody Screen Laboratory Results - last 24 hr 10/26/16 10/26/16 10/26/16 17:10 18:37 22:15 WBC RBC Hgb 8.4 L 8.5 L Hct 25.0 L 25.4 L MCV MCH MCHC RDW Plt Count MPV Fibrinogen Sodium Potassium Chloride Carbon Dioxide Anion Gap BUN Creatinine Est GFR ( Amer) Est GFR (Non-Af Amer) POC Glucose (mg/dL) 91 Random Glucose Lactic Acid Calcium Phosphorus Magnesium Total Bilirubin AST ALT Alkaline Phosphatase Lactate Dehydrogenase Total Protein Albumin Globulin Albumin/Globulin Ratio Blood Type Antibody Screen 10/27/16 10/27/16 10/27/16 00:04 05:48 06:34 WBC 20.8 H RBC 2.60 L Hgb 8.6 L Hct 25.6 L MCV 98.3 MCH 33.1 H MCHC 33.6 RDW 22.3 H Plt Count 149 MPV 10.0 Fibrinogen Sodium Potassium Chloride Carbon Dioxide Anion Gap BUN Creatinine Est GFR ( Amer) Est GFR (Non-Af Amer) POC Glucose (mg/dL) 95 115 H Random Glucose Lactic Acid Calcium Phosphorus Magnesium Total Bilirubin AST ALT Alkaline Phosphatase Lactate Dehydrogenase Total Protein Albumin Globulin Albumin/Globulin Ratio Blood Type Antibody Screen 10/27/16 10/27/16 10/27/16 06:34 11:28 13:42 WBC RBC Hgb 7.3 L Hct MCV MCH MCHC RDW Plt Count MPV Fibrinogen Sodium 132 Potassium 3.3 L Chloride 94 L Carbon Dioxide 27 Anion Gap 14 BUN 25 H Creatinine 1.2 Est GFR ( Amer) 53 Est GFR (Non-Af Amer) 44 POC Glucose (mg/dL) 110 Random Glucose 98 Lactic Acid Calcium 8.1 L Phosphorus 3.8 Magnesium 1.6 Total Bilirubin 9.1 H AST 50 H D ALT 16 Alkaline Phosphatase 163 H D Lactate Dehydrogenase Total Protein 6.9 Albumin 2.3 L Globulin 4.6 H Albumin/Globulin Ratio 0.5 L Blood Type Antibody Screen 10/27/16 10/27/16 10/27/16 14:55 14:55 15:11 WBC RBC Hgb Hct MCV MCH MCHC RDW Plt Count MPV Fibrinogen 159 L Sodium Potassium Chloride Carbon Dioxide Anion Gap BUN Creatinine Est GFR ( Amer) Est GFR (Non-Af Amer) POC Glucose (mg/dL) Random Glucose Lactic Acid 1.1 Calcium Phosphorus Magnesium Total Bilirubin AST ALT Alkaline Phosphatase Lactate Dehydrogenase 276 L Total Protein Albumin Globulin Albumin/Globulin Ratio Blood Type Antibody Screen 10/27/16 15:11 WBC RBC Hgb Hct MCV MCH MCHC RDW Plt Count MPV Fibrinogen Sodium Potassium Chloride Carbon Dioxide Anion Gap BUN Creatinine Est GFR ( Amer) Est GFR (Non-Af Amer) POC Glucose (mg/dL) Random Glucose Lactic Acid Calcium Phosphorus Magnesium Total Bilirubin AST ALT Alkaline Phosphatase Lactate Dehydrogenase Total Protein Albumin Globulin Albumin/Globulin Ratio Blood Type B POSITIVE Antibody Screen Negative Fingerstick Blood Sugar Results: 115 Review of Systems - Review of Systems Systems not reviewed;Unavailable: Acuity of Condition Assessment/Plan - Assessment and Plan (Free Text) Assessment: 76F w/ CAD, HTN, ESRD, DM admitted with rectal bleed and anemia Plan: Neuro: -GCS 9T - at baseline likely 2/2 metabolic encephalopathy Pulm: -trach on vent -CT chest shows b/l pleural effusions R>L with subsegmental atelectasis CV: - currently on 6mcg NE - will titrate to MAP of 70-80 -Dr Long on board. Pt high risk for any procedure but can proceed if clinical indicated Heme: -dropped to 7.3 again: 1 unit pRBC today - will cont to monitor H/H and for rectal bleed - continue transfuse PRN for HgB <7 Renal: - 55/5.1; ESRD, due for hemodialysis today - Dr Trent on consult Endo: -Insulin sliding scale GI: - NPO - hold tube feeds incase GI procedure needed -Protonix drip for GI bleed - Not currently stable for colonoscopy prep per GI - will monitor closely -CT w/ PO contrast abd/pel ID: - PO Vanc and Merrem Pt chronically ill, prognosis very poor, will consult palliative care as well DVT proph - SCDs, no anti-coagulation due to acute bleed GI proph - Protonix 40mg IVP daily Code status - Full Case discussed with Dr. Rhonda Bello, PGY3 - Date & Time Date: 10/27/16 Time: 17:12 <Taavres Ellis - Last Filed: 10/27/16 18:11> CCU Objective - Vital Signs / Intake & Output Vital Signs (Last 4 hours): Vital Signs Temp Pulse Pulse Resp BP BP Pulse Ox 10/27/16 18:01 98.2 F 96 H 19 84/43 L 100 10/27/16 17:45 98.1 F 87 91/43 L 10/27/16 17:25 98.1 F 80 98 H 23 95/43 L 95/43 L 100 10/27/16 17:10 98.2 F 99 H 97 H 22 99/46 L 99/46 L 100 10/27/16 16:54 98.1 F 86 20 83/49 L 10/27/16 16:49 98.1 F 97 H 22 85/41 L 100 10/27/16 16:20 76 20 94/43 L 100 10/27/16 16:00 97 H 85 22 111/45 L 100 10/27/16 15:57 91 H 23 111/45 L 100 10/27/16 15:42 99 H 23 107/44 L 10/27/16 15:30 75 85 21 117/42 L 100 10/27/16 15:27 96 H 22 117/42 L 100 10/27/16 15:15 78 20 111/53 L 100 10/27/16 15:12 93 H 23 111/50 L 100 10/27/16 15:00 98.1 F 76 76 18 112/45 L 112/45 L 100 10/27/16 14:59 72 22 112/45 L 100 10/27/16 14:57 72 21 107/44 L 100 10/27/16 14:30 74 18 100 10/27/16 14:28 74 20 107/42 L 100 Intake and Output (Last 8hrs): Intake & Output 10/27/16 10/27/16 10/27/16 06:59 14:59 22:59 Intake Total 795.4 176.2 113.8 Output Total 152 0 0 Balance 643.4 176.2 113.8 Intake: IV 254.0 Intake, IV Amount 441.4 176.2 63.8 Right Distal Port PICC 191.4 176.2 63.8 Right Proximal Port PICC 250 Tube Feeding 0 0 0 Blood Product 0 Red Blood Cells Cpd As1 0 Lr Unit [id number] Other 100 50 Red Blood Cells Cpd As1 50 Lr Unit [id number] Output: Urine 0 0 0 Urine, Voided 0 0 0 Stool 2 Urine/Stool Mix 150 Other: # Bowel Movements 1 1 0 - Medications Active Medications: Active Medications Generic Name Dose Route Start Last Admin Trade Name Johanna PRN Reason Stop Dose Admin Epoetin Sly 10,000 unit 10/26/16 15:30 10/26/16 16:10 Procrit IV 10,000 unit MWF REKHA Administration Norepinephrine Bitartrate 4 mg 254 mls @ 7.62 mls/hr 10/25/16 15:48 10/27/16 07:26 / Dextrose IV 6.9 mcg/min .Q24H PRN 26.28 mls/hr TITRATE PER MD ORDER Administration Protocol 2 MCG/MIN Meropenem 500 mg/ Sodium 100 mls @ 100 mls/hr 10/25/16 19:00 10/26/16 18:15 Chloride IVPB 100 mls/hr Q24H REKHA Administration Insulin Human Regular 0 unit 10/26/16 06:00 10/27/16 18:10 Novolin R SC Not Given Q6 REKHA Protocol Levothyroxine Sodium 200 mcg 10/26/16 06:30 10/27/16 06:24 Synthroid PO 200 mcg DAILY@0630 REKHA Administration Lorazepam 1 mg 10/26/16 00:01 Ativan IVP Q4 PRN Agitation Pantoprazole Sodium 40 mg 10/26/16 11:30 10/27/16 11:36 Protonix Inj IVP 40 mg DAILY REKHA Administration Vancomycin HCl 125 mg 10/25/16 19:00 10/27/16 14:41 Vancocin (Oral Or Rectal Use) PO 125 mg Q6H REKHA Administration - Patient Studies Lab Studies: Microbiology Studies 10/25/16 17:00 Blood Culture - Preliminary Blood-Venous NO GROWTH AFTER 48 HOURS 10/25/16 18:49 MRSA Culture (Admit) - Final Naris MRSA DETECTED Lab Studies 10/27/16 10/27/16 10/27/16 Range/Units 17:55 15:11 15:11 WBC (4.8-10.8) K/uL RBC (3.80-5.20) Mil/uL Hgb (11.0-16.0) g/dL Hct (34.0-47.0) % MCV (81.0-99.0) fL MCH (27.0-31.0) pg MCHC (33.0-37.0) g/dL RDW (11.5-14.5) % Plt Count (130-400) K/uL MPV (7.2-11.7) fL Fibrinogen 159 L (200-400) mg/dL Fibrin Degrad Products Positive H (NEGATIVE) Fibrin Degrad Prod, Qt >40 H (<10) ug/mL Sodium (132-148) mmol/L Potassium (3.6-5.2) mmol/L Chloride (98-107) mmol/L Carbon Dioxide (22-30) mmol/L Anion Gap (10-20) BUN (7-17) mg/dL Creatinine (0.7-1.2) MG/DL Est GFR ( Amer) Est GFR (Non-Af Amer) POC Glucose (mg/dL) 88 (65-110) mg/dL Random Glucose (65-105) mg/dL Lactic Acid (0.7-2.1) mmol/L Calcium (8.6-10.4) mg/dl Phosphorus (2.5-4.5) mg/dL Magnesium (1.6-2.3) mg/dL Total Bilirubin (0.2-1.3) mg/dL AST (14-36) U/L ALT (9-52) U/L Alkaline Phosphatase (38-126) U/L Lactate Dehydrogenase (313-618) U/L Total Protein (6.3-8.3) g/dL Albumin (3.5-5.0) g/dL Globulin (2.2-3.9) gm/dL Albumin/Globulin Ratio (1.0-2.1) Blood Type B POSITIVE Antibody Screen Negative 10/27/16 10/27/16 10/27/16 Range/Units 14:55 14:55 13:42 WBC (4.8-10.8) K/uL RBC (3.80-5.20) Mil/uL Hgb 7.3 L (11.0-16.0) g/dL Hct (34.0-47.0) % MCV (81.0-99.0) fL MCH (27.0-31.0) pg MCHC (33.0-37.0) g/dL RDW (11.5-14.5) % Plt Count (130-400) K/uL MPV (7.2-11.7) fL Fibrinogen (200-400) mg/dL Fibrin Degrad Products (NEGATIVE) Fibrin Degrad Prod, Qt (<10) ug/mL Sodium (132-148) mmol/L Potassium (3.6-5.2) mmol/L Chloride (98-107) mmol/L Carbon Dioxide (22-30) mmol/L Anion Gap (10-20) BUN (7-17) mg/dL Creatinine (0.7-1.2) MG/DL Est GFR ( Amer) Est GFR (Non-Af Amer) POC Glucose (mg/dL) (65-110) mg/dL Random Glucose (65-105) mg/dL Lactic Acid 1.1 (0.7-2.1) mmol/L Calcium (8.6-10.4) mg/dl Phosphorus (2.5-4.5) mg/dL Magnesium (1.6-2.3) mg/dL Total Bilirubin (0.2-1.3) mg/dL AST (14-36) U/L ALT (9-52) U/L Alkaline Phosphatase (38-126) U/L Lactate Dehydrogenase 276 L (313-618) U/L Total Protein (6.3-8.3) g/dL Albumin (3.5-5.0) g/dL Globulin (2.2-3.9) gm/dL Albumin/Globulin Ratio (1.0-2.1) Blood Type Antibody Screen 10/27/16 10/27/16 10/27/16 Range/Units 11:28 06:34 06:34 WBC 20.8 H (4.8-10.8) K/uL RBC 2.60 L (3.80-5.20) Mil/uL Hgb 8.6 L (11.0-16.0) g/dL Hct 25.6 L (34.0-47.0) % MCV 98.3 (81.0-99.0) fL MCH 33.1 H (27.0-31.0) pg MCHC 33.6 (33.0-37.0) g/dL RDW 22.3 H (11.5-14.5) % Plt Count 149 (130-400) K/uL MPV 10.0 (7.2-11.7) fL Fibrinogen (200-400) mg/dL Fibrin Degrad Products (NEGATIVE) Fibrin Degrad Prod, Qt (<10) ug/mL Sodium 132 (132-148) mmol/L Potassium 3.3 L (3.6-5.2) mmol/L Chloride 94 L (98-107) mmol/L Carbon Dioxide 27 (22-30) mmol/L Anion Gap 14 (10-20) BUN 25 H (7-17) mg/dL Creatinine 1.2 (0.7-1.2) MG/DL Est GFR ( Amer) 53 Est GFR (Non-Af Amer) 44 POC Glucose (mg/dL) 110 (65-110) mg/dL Random Glucose 98 (65-105) mg/dL Lactic Acid (0.7-2.1) mmol/L Calcium 8.1 L (8.6-10.4) mg/dl Phosphorus 3.8 (2.5-4.5) mg/dL Magnesium 1.6 (1.6-2.3) mg/dL Total Bilirubin 9.1 H (0.2-1.3) mg/dL AST 50 H D (14-36) U/L ALT 16 (9-52) U/L Alkaline Phosphatase 163 H D (38-126) U/L Lactate Dehydrogenase (313-618) U/L Total Protein 6.9 (6.3-8.3) g/dL Albumin 2.3 L (3.5-5.0) g/dL Globulin 4.6 H (2.2-3.9) gm/dL Albumin/Globulin Ratio 0.5 L (1.0-2.1) Blood Type Antibody Screen 10/27/16 10/27/16 10/26/16 Range/Units 05:48 00:04 22:15 WBC (4.8-10.8) K/uL RBC (3.80-5.20) Mil/uL Hgb 8.5 L (11.0-16.0) g/dL Hct 25.4 L (34.0-47.0) % MCV (81.0-99.0) fL MCH (27.0-31.0) pg MCHC (33.0-37.0) g/dL RDW (11.5-14.5) % Plt Count (130-400) K/uL MPV (7.2-11.7) fL Fibrinogen (200-400) mg/dL Fibrin Degrad Products (NEGATIVE) Fibrin Degrad Prod, Qt (<10) ug/mL Sodium (132-148) mmol/L Potassium (3.6-5.2) mmol/L Chloride (98-107) mmol/L Carbon Dioxide (22-30) mmol/L Anion Gap (10-20) BUN (7-17) mg/dL Creatinine (0.7-1.2) MG/DL Est GFR ( Amer) Est GFR (Non-Af Amer) POC Glucose (mg/dL) 115 H 95 (65-110) mg/dL Random Glucose (65-105) mg/dL Lactic Acid (0.7-2.1) mmol/L Calcium (8.6-10.4) mg/dl Phosphorus (2.5-4.5) mg/dL Magnesium (1.6-2.3) mg/dL Total Bilirubin (0.2-1.3) mg/dL AST (14-36) U/L ALT (9-52) U/L Alkaline Phosphatase (38-126) U/L Lactate Dehydrogenase (313-618) U/L Total Protein (6.3-8.3) g/dL Albumin (3.5-5.0) g/dL Globulin (2.2-3.9) gm/dL Albumin/Globulin Ratio (1.0-2.1) Blood Type Antibody Screen 10/26/16 Range/Units 18:37 WBC (4.8-10.8) K/uL RBC (3.80-5.20) Mil/uL Hgb 8.4 L (11.0-16.0) g/dL Hct 25.0 L (34.0-47.0) % MCV (81.0-99.0) fL MCH (27.0-31.0) pg MCHC (33.0-37.0) g/dL RDW (11.5-14.5) % Plt Count (130-400) K/uL MPV (7.2-11.7) fL Fibrinogen (200-400) mg/dL Fibrin Degrad Products (NEGATIVE) Fibrin Degrad Prod, Qt (<10) ug/mL Sodium (132-148) mmol/L Potassium (3.6-5.2) mmol/L Chloride (98-107) mmol/L Carbon Dioxide (22-30) mmol/L Anion Gap (10-20) BUN (7-17) mg/dL Creatinine (0.7-1.2) MG/DL Est GFR ( Amer) Est GFR (Non-Af Amer) POC Glucose (mg/dL) (65-110) mg/dL Random Glucose (65-105) mg/dL Lactic Acid (0.7-2.1) mmol/L Calcium (8.6-10.4) mg/dl Phosphorus (2.5-4.5) mg/dL Magnesium (1.6-2.3) mg/dL Total Bilirubin (0.2-1.3) mg/dL AST (14-36) U/L ALT (9-52) U/L Alkaline Phosphatase (38-126) U/L Lactate Dehydrogenase (313-618) U/L Total Protein (6.3-8.3) g/dL Albumin (3.5-5.0) g/dL Globulin (2.2-3.9) gm/dL Albumin/Globulin Ratio (1.0-2.1) Blood Type Antibody Screen Laboratory Results - last 24 hr 10/26/16 10/26/16 10/27/16 18:37 22:15 00:04 WBC RBC Hgb 8.4 L 8.5 L Hct 25.0 L 25.4 L MCV MCH MCHC RDW Plt Count MPV Fibrinogen Fibrin Degrad Products Fibrin Degrad Prod, Qt Sodium Potassium Chloride Carbon Dioxide Anion Gap BUN Creatinine Est GFR ( Amer) Est GFR (Non-Af Amer) POC Glucose (mg/dL) 95 Random Glucose Lactic Acid Calcium Phosphorus Magnesium Total Bilirubin AST ALT Alkaline Phosphatase Lactate Dehydrogenase Total Protein Albumin Globulin Albumin/Globulin Ratio Blood Type Antibody Screen 10/27/16 10/27/16 10/27/16 05:48 06:34 06:34 WBC 20.8 H RBC 2.60 L Hgb 8.6 L Hct 25.6 L MCV 98.3 MCH 33.1 H MCHC 33.6 RDW 22.3 H Plt Count 149 MPV 10.0 Fibrinogen Fibrin Degrad Products Fibrin Degrad Prod, Qt Sodium 132 Potassium 3.3 L Chloride 94 L Carbon Dioxide 27 Anion Gap 14 BUN 25 H Creatinine 1.2 Est GFR ( Amer) 53 Est GFR (Non-Af Amer) 44 POC Glucose (mg/dL) 115 H Random Glucose 98 Lactic Acid Calcium 8.1 L Phosphorus 3.8 Magnesium 1.6 Total Bilirubin 9.1 H AST 50 H D ALT 16 Alkaline Phosphatase 163 H D Lactate Dehydrogenase Total Protein 6.9 Albumin 2.3 L Globulin 4.6 H Albumin/Globulin Ratio 0.5 L Blood Type Antibody Screen 10/27/16 10/27/16 10/27/16 11:28 13:42 14:55 WBC RBC Hgb 7.3 L Hct MCV MCH MCHC RDW Plt Count MPV Fibrinogen Fibrin Degrad Products Fibrin Degrad Prod, Qt Sodium Potassium Chloride Carbon Dioxide Anion Gap BUN Creatinine Est GFR ( Amer) Est GFR (Non-Af Amer) POC Glucose (mg/dL) 110 Random Glucose Lactic Acid 1.1 Calcium Phosphorus Magnesium Total Bilirubin AST ALT Alkaline Phosphatase Lactate Dehydrogenase Total Protein Albumin Globulin Albumin/Globulin Ratio Blood Type Antibody Screen 10/27/16 10/27/16 10/27/16 14:55 15:11 15:11 WBC RBC Hgb Hct MCV MCH MCHC RDW Plt Count MPV Fibrinogen 159 L Fibrin Degrad Products Positive H Fibrin Degrad Prod, Qt >40 H Sodium Potassium Chloride Carbon Dioxide Anion Gap BUN Creatinine Est GFR ( Amer) Est GFR (Non-Af Amer) POC Glucose (mg/dL) Random Glucose Lactic Acid Calcium Phosphorus Magnesium Total Bilirubin AST ALT Alkaline Phosphatase Lactate Dehydrogenase 276 L Total Protein Albumin Globulin Albumin/Globulin Ratio Blood Type B POSITIVE Antibody Screen Negative 10/27/16 17:55 WBC RBC Hgb Hct MCV MCH MCHC RDW Plt Count MPV Fibrinogen Fibrin Degrad Products Fibrin Degrad Prod, Qt Sodium Potassium Chloride Carbon Dioxide Anion Gap BUN Creatinine Est GFR ( Amer) Est GFR (Non-Af Amer) POC Glucose (mg/dL) 88 Random Glucose Lactic Acid Calcium Phosphorus Magnesium Total Bilirubin AST ALT Alkaline Phosphatase Lactate Dehydrogenase Total Protein Albumin Globulin Albumin/Globulin Ratio Blood Type Antibody Screen Attending/Attestation - Attestation I have personally seen and examined this patient.: Yes I have fully participated in the care of the patient.: Yes I have reviewed all pertinent clinical information: Yes Notes (Text): 10/27/16 18:11 Today: October The Patient was seen and examined at the bedside, Medical records reviewed, all clinical/lab/hemodynamic/radiographic data were reviewed and management issues were discussed and formulated, Events reviewed Pain issues, skin care, head of the bed elevation, glycemic control were addressed. Agree with above treatment plans as transcribed in Dr. Bello note
[2016-10-27 17:19] LABS: FDP INTERPRETATION POSITIVE (NEGATIVE); FDP QUANTITY >40 ug/mL (<10)
--- NOTE | 2016-10-27 17:30 | CP.PCM.PN ---
Subjective - Date & Time of Evaluation Date of Evaluation: 10/27/16 Time of Evaluation: 17:30 - Subjective Subjective: The patient is currently receiving hemodialysis. Also receiving one unit of blood transfusion. Spoke to the patient daughter in detail. Patient still having some wheezing, and also episodes of bleeding rectally. Patient was seen by GI. Recommended to have the CAT scan again. Patient is currently on norepinephrine drip, because of that the patient is currently somewhat unstable. Patient is not a candidate for to have the colonoscopy yet. Hemoglobin level is slightly on the low side. Chest bilateral good air entry. Regular heart sound. Abdomen soft, but the tenderness, negative, edema noted. CAT scan reviewed. Anasarca, inflammation of the small intestines identified. No other major findings noted. Assessment and recommendation: 76-year-old female with history of multiple medical problems, CAD, bypass grafting in the past, respirated failure the tracheostomy. Pneumonia. Pleural effusion. History of empyema. Recurrent sepsis. ESRD and hemodialysis. Liver cirrhosis, ascites. Currently having active GI bleeding. Will give vitamin K, DDAVP, one unit of FFP now. We'll monitor the patient. Spoke to the patient family Objective - Vital Signs/Intake and Output Vital Signs (last 24 hours): Temp Pulse Resp BP Pulse Ox 98 F 80 23 95/43 L 100 10/27/16 17:25 10/27/16 17:25 10/27/16 17:25 10/27/16 17:25 10/27/16 16:00 Intake and Output: 10/27/16 10/27/16 06:59 18:59 Intake Total 1065.4 217.5 Output Total 152 0 Balance 913.4 217.5 - Medications Medications: Current Medications Epoetin Sly (Procrit) 10,000 unit IV F [facility] Last Admin: 10/26/16 16:10 Dose: 10,000 unit Norepinephrine Bitartrate 4 mg (/ Dextrose) 254 mls @ 7.62 mls/hr IV .Q24H PRN ; Protocol; 2 MCG/MIN PRN Reason: TITRATE PER MD ORDER Last Admin: 10/27/16 07:26 Dose: 6.9 mcg/min, 26.28 mls/hr Meropenem 500 mg/ Sodium (Chloride) 100 mls @ 100 mls/hr IVPB Q24H [facility] Last Admin: 10/26/16 18:15 Dose: 100 mls/hr Desmopressin Acetate 10 mcg/ (Sodium Chloride) 52.5 mls @ 100 mls/hr IV ONCE ONE Stop: 10/27/16 17:53 Insulin Human Regular (Novolin R) 0 unit SC Q6 REKHA PRN Reason: Protocol Last Admin: 10/27/16 12:00 Dose: Not Given Levothyroxine Sodium (Synthroid) 200 mcg PO DAILY@0630 [facility] Last Admin: 10/27/16 06:24 Dose: 200 mcg Lorazepam (Ativan) 1 mg IVP Q4 PRN PRN Reason: Agitation Pantoprazole Sodium (Protonix Inj) 40 mg IVP DAILY [facility] Last Admin: 10/27/16 11:36 Dose: 40 mg Vancomycin HCl (Vancocin (Oral Or Rectal Use)) 125 mg PO Q6H [facility] Last Admin: 10/27/16 14:41 Dose: 125 mg - Labs Labs: 10/27/16 13:42 10/27/16 06:34 PT 18.0 SECONDS (9.7-12.2) H 10/25/16 16:33 INR 1.6 10/25/16 16:33 APTT 49 SECONDS (21-34) H 10/25/16 16:33
[2016-10-27] MEDS: Meropenem 500 MG in Sodium Chloride 0.9% 100 ML IVPB SCH (18:33)
[2016-10-27] MEDS ORDERED: Dextrose 50% SYRINGE Inj (50 ml) IV STA ×2 (22:25→22:27)
--- NOTE | 2016-10-27 22:28 | CP.PCM.PN ---
Subjective - Date & Time of Evaluation Date of Evaluation: 10/27/16 Time of Evaluation: 10:10 - Subjective Subjective: Patient seen and evaluated Hgb dropped Received additional unit of blood Objective - Vital Signs/Intake and Output Vital Signs (last 24 hours): Temp Pulse Resp BP Pulse Ox 98.2 F 77 20 97/40 L 100 10/27/16 18:15 10/27/16 22:04 10/27/16 22:04 10/27/16 22:04 10/27/16 22:04 Intake and Output: 10/27/16 10/28/16 18:59 06:59 Intake Total 566.5 240.0 Output Total 0 0 Balance 566.5 240.0 - Medications Medications: Current Medications Epoetin Sly (Procrit) 10,000 unit IV MWF [facility] Last Admin: 10/26/16 16:10 Dose: 10,000 unit Norepinephrine Bitartrate 4 mg (/ Dextrose) 254 mls @ 7.62 mls/hr IV .Q24H PRN ; Protocol; 2 MCG/MIN PRN Reason: TITRATE PER MD ORDER Last Admin: 10/27/16 20:49 Dose: 5.9 mcg/min, 22.5 mls/hr Meropenem 500 mg/ Sodium (Chloride) 100 mls @ 100 mls/hr IVPB Q24H [facility] Last Admin: 10/27/16 18:33 Dose: 100 mls/hr Insulin Human Regular (Novolin R) 0 unit SC Q6 REKHA PRN Reason: Protocol Last Admin: 10/27/16 18:10 Dose: Not Given Levothyroxine Sodium (Synthroid) 200 mcg PO DAILY@0630 [facility] Last Admin: 10/27/16 06:24 Dose: 200 mcg Lorazepam (Ativan) 1 mg IVP Q4 PRN PRN Reason: Agitation Pantoprazole Sodium (Protonix Inj) 40 mg IVP DAILY [facility] Last Admin: 10/27/16 11:36 Dose: 40 mg Vancomycin HCl (Vancocin (Oral Or Rectal Use)) 125 mg PO Q6H [facility] Last Admin: 10/27/16 18:33 Dose: 125 mg - Labs Labs: 10/27/16 13:42 10/27/16 06:34 PT 18.0 SECONDS (9.7-12.2) H 10/25/16 16:33 INR 1.6 10/25/16 16:33 APTT 49 SECONDS (21-34) H 10/25/16 16:33
[2016-10-27] MEDS ORDERED: Dextrose 50% SYRINGE Inj (50 ml) ONE (22:31)
[2016-10-28] MEDS: (Novolin R) Insulin Human Regular 100 units/ml vial SC SCH ×4 (00:48→18:37)
[2016-10-28] MEDS: Vancomycin 125 MG/5 ML SOLN (ORAL/RECTAL) PO SCH ×4 (00:49→20:07)
[2016-10-28] MEDS: Levothyroxine 200 MCG TAB PO SCH (06:53)
[2016-10-28 07:12] LABS: HEMATOCRIT 23.4 % (34.0-47.0); MEAN CORPUSCULAR HEMOGLOBIN 31.6 pg (27.0-31.0); MEAN CORPUSCULAR HGB CONC 33.6 g/dL (33.0-37.0); MEAN PLATELET VOLUME 10.1 fL (7.2-11.7); RED CELL DISTRIBUTION WIDTH 22.4 % (11.5-14.5); WHITE BLOOD COUNT 21.5 K/uL (4.8-10.8)
--- NOTE | 2016-10-28 07:22 | CP.CCUPN ---
Addendum entered and electronically signed by Javier Bello DO 10/28/16 12: 41: will obtain general surgery consult of ? of ischemic colitis; pt poor surgical candidate however and extremely high risk Original Note: <Javier Bello - Last Filed: 10/28/16 09:38> CCU Subjective - Physician Review Events Since Last Encounter (Free Text): 10/28/16 07:20 Pt S&E. s/p HD + 1 unit pRBC yesterday. Continues to have oozing from the rectum of bright blood. BP slightly improved to 100s systolic but remains on 6mcg of levophed. CT w/ PO yesterday shows diffuse colitis with significant thickening of rectosigmoid junction. Awaiting official read. Per GI will do bedside flexible sigmoidoscopy today. Will hold HD until completed. Critical Care Time Spent (in minutes): 25 CCU Objective - Vital Signs / Intake & Output Vital Signs (Last 4 hours): Vital Signs Pulse Resp BP Pulse Ox 10/28/16 06:34 87 18 107/44 L 100 10/28/16 06:30 71 14 100 10/28/16 06:19 74 14 115/38 L 100 10/28/16 06:05 71 22 102/43 L 100 10/28/16 06:00 72 17 100 10/28/16 05:49 74 16 110/45 L 100 10/28/16 05:34 90 12 111/40 L 100 10/28/16 05:30 73 14 100 10/28/16 05:19 73 20 111/42 L 100 10/28/16 05:04 73 16 110/45 L 100 10/28/16 05:00 72 18 100 10/28/16 04:49 72 17 114/41 L 100 10/28/16 04:34 73 14 108/39 L 100 10/28/16 04:30 73 18 100 10/28/16 04:19 74 16 107/38 L 100 10/28/16 04:04 70 18 102/42 L 100 10/28/16 04:00 74 10 L 100 10/28/16 03:49 74 18 104/44 L 100 10/28/16 03:34 72 16 109/46 L 100 10/28/16 03:30 72 15 100 Intake and Output (Last 8hrs): Intake & Output 10/27/16 10/28/16 10/28/16 22:59 06:59 14:59 Intake Total 630.3 500.0 Output Total 0 0 Balance 630.3 500.0 Intake: IV 254 Intake, IV Amount 326.3 500.0 Right Distal Port PICC 176.3 180.0 Right Proximal Port PICC 150 320 Tube Feeding 0 0 Blood Product 0 Red Blood Cells Cpd As1 0 Lr Unit [id number] Other 50 Red Blood Cells Cpd As1 50 Lr Unit [id number] Output: Urine 0 0 Urine, Voided 0 0 Other: # Bowel Movements 0 1 - Physical Exam Physical Exam Limitations: Positive for: Altered Mental Status Head: Positive for: Atraumatic Extroacular Muscles: Positive for: EOMI Nose (Internal): Positive for: Other (NGT in place) Neck: Positive for: Other (trach in place) Respiratory/Chest: Positive for: Rhonchi. Negative for: Clear to Auscultation ( decreased in RLL), Respiratory Distress, Accessory Muscle Use Cardiovascular: Positive for: Regular Rate and Rhythm, Other (hypotension improved, systolic 100-110s). Negative for: Murmurs, Tachycardic Abdomen: Positive for: Distention. Negative for: Peritoneal Signs, Rebound, Guarding, Hernias Rectal: Positive for: Gross Blood Lower Extremity: Positive for: Edema Psychiatric: Negative for: Alert - Medications Active Medications: Active Medications Generic Name Dose Route Start Last Admin Trade Name Freq PRN Reason Stop Dose Admin Epoetin Sly 10,000 unit 10/26/16 15:30 10/26/16 16:10 Procrit IV 10,000 unit [facility] REKHA Administration Norepinephrine Bitartrate 4 mg 254 mls @ 7.62 mls/hr 10/25/16 15:48 10/27/16 20:49 / Dextrose IV 5.9 mcg/min .Q24H PRN 22.5 mls/hr TITRATE PER MD ORDER Administration Protocol 2 MCG/MIN Meropenem 500 mg/ Sodium 100 mls @ 100 mls/hr 10/25/16 19:00 10/27/16 18:33 Chloride IVPB 100 mls/hr Q24H REKHA Administration Dextrose 1,000 mls @ 40 mls/hr 10/27/16 22:30 10/27/16 22:44 Dextrose 5% In Water 1000 Ml IV 40 mls/hr .Q24H REKHA Administration Insulin Human Regular 0 unit 10/26/16 06:00 10/28/16 06:37 Novolin R SC 3 unit Q6 REKHA Administration Protocol Levothyroxine Sodium 200 mcg 10/26/16 06:30 10/28/16 06:53 Synthroid PO Not Given DAILY@0630 REKHA Lorazepam 1 mg 10/26/16 00:01 Ativan IVP Q4 PRN Agitation Pantoprazole Sodium 40 mg 10/26/16 11:30 10/27/16 11:36 Protonix Inj IVP 40 mg DAILY REKHA Administration Vancomycin HCl 125 mg 10/25/16 19:00 10/28/16 00:49 Vancocin (Oral Or Rectal Use) PO 125 mg Q6H REKHA Administration - Patient Studies Lab Studies: Microbiology Studies 10/25/16 17:00 Blood Culture - Preliminary Blood-Venous NO GROWTH AFTER 48 HOURS 10/25/16 18:49 MRSA Culture (Admit) - Final Naris MRSA DETECTED Lab Studies 10/28/16 10/28/16 10/28/16 Range/Units 06:01 02:22 00:04 Hgb (11.0-16.0) g/dL Fibrinogen (200-400) mg/dL Fibrin Degrad Products (NEGATIVE) Fibrin Degrad Prod, Qt (<10) ug/mL POC Glucose (mg/dL) 296 H 285 H 145 H (65-110) mg/dL Lactic Acid (0.7-2.1) mmol/L Lactate Dehydrogenase (313-618) U/L Blood Type Antibody Screen 10/27/16 10/27/16 10/27/16 Range/Units 23:01 22:40 22:22 Hgb (11.0-16.0) g/dL Fibrinogen (200-400) mg/dL Fibrin Degrad Products (NEGATIVE) Fibrin Degrad Prod, Qt (<10) ug/mL POC Glucose (mg/dL) 407 H* < 20 L* < 20 L* (65-110) mg/dL Lactic Acid (0.7-2.1) mmol/L Lactate Dehydrogenase (313-618) U/L Blood Type Antibody Screen 10/27/16 10/27/16 10/27/16 Range/Units 21:00 17:55 15:11 Hgb 8.2 L (11.0-16.0) g/dL Fibrinogen (200-400) mg/dL Fibrin Degrad Products (NEGATIVE) Fibrin Degrad Prod, Qt (<10) ug/mL POC Glucose (mg/dL) 88 (65-110) mg/dL Lactic Acid (0.7-2.1) mmol/L Lactate Dehydrogenase (313-618) U/L Blood Type B POSITIVE Antibody Screen Negative 10/27/16 10/27/16 10/27/16 Range/Units 15:11 14:55 14:55 Hgb (11.0-16.0) g/dL Fibrinogen 159 L (200-400) mg/dL Fibrin Degrad Products Positive H (NEGATIVE) Fibrin Degrad Prod, Qt >40 H (<10) ug/mL POC Glucose (mg/dL) (65-110) mg/dL Lactic Acid 1.1 (0.7-2.1) mmol/L Lactate Dehydrogenase 276 L (313-618) U/L Blood Type Antibody Screen 10/27/16 10/27/16 Range/Units 13:42 11:28 Hgb 7.3 L (11.0-16.0) g/dL Fibrinogen (200-400) mg/dL Fibrin Degrad Products (NEGATIVE) Fibrin Degrad Prod, Qt (<10) ug/mL POC Glucose (mg/dL) 110 (65-110) mg/dL Lactic Acid (0.7-2.1) mmol/L Lactate Dehydrogenase (313-618) U/L Blood Type Antibody Screen Laboratory Results - last 24 hr 10/27/16 10/27/16 10/27/16 11:28 13:42 14:55 Hgb 7.3 L Fibrinogen Fibrin Degrad Products Fibrin Degrad Prod, Qt POC Glucose (mg/dL) 110 Lactic Acid 1.1 Lactate Dehydrogenase Blood Type Antibody Screen 10/27/16 10/27/16 10/27/16 14:55 15:11 15:11 Hgb Fibrinogen 159 L Fibrin Degrad Products Positive H Fibrin Degrad Prod, Qt >40 H POC Glucose (mg/dL) Lactic Acid Lactate Dehydrogenase 276 L Blood Type B POSITIVE Antibody Screen Negative 10/27/16 10/27/16 10/27/16 17:55 21:00 22:22 Hgb 8.2 L Fibrinogen Fibrin Degrad Products Fibrin Degrad Prod, Qt POC Glucose (mg/dL) 88 < 20 L* Lactic Acid Lactate Dehydrogenase Blood Type Antibody Screen 0710/27/16 10/28/16 22:40 23:01 00:04 Hgb Fibrinogen Fibrin Degrad Products Fibrin Degrad Prod, Qt POC Glucose (mg/dL) < 20 L* 407 H* 145 H Lactic Acid Lactate Dehydrogenase Blood Type Antibody Screen 10/28/16 10/28/16 02:22 06:01 Hgb Fibrinogen Fibrin Degrad Products Fibrin Degrad Prod, Qt POC Glucose (mg/dL) 285 H 296 H Lactic Acid Lactate Dehydrogenase Blood Type Antibody Screen Fingerstick Blood Sugar Results: 296 Assessment/Plan - Assessment and Plan (Free Text) Assessment: 76F with history of HTN, DM, ESRD; presented with anemia and brbpr Plan: Neuro: -GCS 9T - at baseline likely 2/2 metabolic encephalopathy Pulm: -trach on vent -CT chest shows b/l pleural effusions R>L with subsegmental atelectasis CV: -BP mildly improved - systolic now 100-110s - currently on 6mcg NE - will titrate to MAP of 70-80 -Dr Long on board. Pt high risk for any procedure but can proceed if clinical indicated Heme: - dropped to 7.3 yesterday, got 1 unit pRBC - will cont to monitor H/H and for rectal bleed - continue transfuse PRN for HgB <7 Renal: - ESRD - HD last 2 days -for hemodialysis today following GI procedure - Dr Trent on consult Endo: -Insulin sliding scale GI: - NPO - hold tube feeds - Protonix drip for GI bleed - CT shows significant colitis at rectosigmoid junction -pt for flexible sigmoidoscopy at bedside today ID: - PO Vanc and Merrem Pt chronically ill, prognosis very poor DVT proph - SCDs, no anti-coagulation due to acute bleed GI proph - Protonix 40mg IVP daily Code status - Full Case discussed with Dr. Yordy Bello, PGY3: <Jonatan Scales - Last Filed: 10/28/16 16:08> CCU Objective - Vital Signs / Intake & Output Vital Signs (Last 4 hours): Vital Signs Temp Pulse Pulse Resp BP BP Pulse Ox 10/28/16 15:30 106/45 L 10/28/16 15:15 118/49 L 10/28/16 15:00 120/48 L 10/28/16 14:45 118/56 L 10/28/16 14:30 95.6 F L 67 18 132/55 L 100 10/28/16 14:20 95.6 F L 67 18 129/54 L Intake and Output (Last 8hrs): Intake & Output 10/28/16 10/28/16 10/28/16 06:59 14:59 22:59 Intake Total 500.0 641.5 Output Total 0 0 Balance 500.0 641.5 Intake: IV 254 Intake, IV Amount 500.0 62.5 Right Distal Port PICC 180.0 22.5 Right Proximal Port PICC 320 40 Tube Feeding 0 0 Blood Product 325 Red Blood Cells Cpd As1 325 Lr Unit [id number] Output: Urine 0 0 Urine, Voided 0 0 Other: # Bowel Movements 1 1 - Medications Active Medications: Active Medications Generic Name Dose Route Start Last Admin Trade Name Freq PRN Reason Stop Dose Admin Epoetin Sly 10,000 unit 10/26/16 15:30 10/28/16 14:48 Procrit IV 10,000 unit MWF REKHA Administration Norepinephrine Bitartrate 4 mg 254 mls @ 7.62 mls/hr 10/25/16 15:48 10/28/16 08:41 / Dextrose IV 5.9 mcg/min .Q24H PRN 22.47 mls/hr TITRATE PER MD ORDER Administration Protocol 2 MCG/MIN Meropenem 500 mg/ Sodium 100 mls @ 100 mls/hr 10/25/16 19:00 10/27/16 18:33 Chloride IVPB 100 mls/hr Q24H REKHA Administration Dextrose 1,000 mls @ 40 mls/hr 10/27/16 22:30 10/27/16 22:44 Dextrose 5% In Water 1000 Ml IV 40 mls/hr .Q24H REKHA Administration Insulin Human Regular 0 unit 10/26/16 06:00 10/28/16 12:31 Novolin R SC Not Given Q6 REKHA Protocol Levothyroxine Sodium 200 mcg 10/26/16 06:30 10/28/16 06:53 Synthroid PO Not Given DAILY@0630 REKHA Lorazepam 1 mg 10/26/16 00:01 Ativan IVP Q4 PRN Agitation Pantoprazole Sodium 40 mg 10/26/16 11:30 10/28/16 10:32 Protonix Inj IVP 40 mg DAILY REKHA Administration Vancomycin HCl 125 mg 10/25/16 19:00 10/28/16 10:23 Vancocin (Oral Or Rectal Use) PO Not Given Q6H [facility] - Patient Studies Lab Studies: Microbiology Studies 10/25/16 17:00 Blood Culture - Preliminary Blood-Venous NO GROWTH AFTER 48 HOURS 10/25/16 18:49 MRSA Culture (Admit) - Final Naris MRSA DETECTED Lab Studies 10/28/16 10/28/16 10/28/16 Range/Units 15:00 12:00 08:07 WBC (4.8-10.8) K/uL RBC (3.80-5.20) Mil/uL Hgb (11.0-16.0) g/dL Hct (34.0-47.0) % MCV (81.0-99.0) fL MCH (27.0-31.0) pg MCHC (33.0-37.0) g/dL RDW (11.5-14.5) % Plt Count (130-400) K/uL MPV (7.2-11.7) fL PT 19.5 H (9.7-12.2) SECONDS INR 1.7 Fibrinogen (200-400) mg/dL Fibrin Degrad Products (NEGATIVE) Fibrin Degrad Prod, Qt (<10) ug/mL Sodium (132-148) mmol/L Potassium (3.6-5.2) mmol/L Chloride (98-107) mmol/L Carbon Dioxide (22-30) mmol/L Anion Gap (10-20) BUN (7-17) mg/dL Creatinine (0.7-1.2) MG/DL Est GFR ( Amer) Est GFR (Non-Af Amer) POC Glucose (mg/dL) 290 H (65-110) mg/dL Random Glucose (65-105) mg/dL Calcium (8.6-10.4) mg/dl Total Bilirubin (0.2-1.3) mg/dL AST (14-36) U/L ALT (9-52) U/L Alkaline Phosphatase (38-126) U/L Total Protein (6.3-8.3) g/dL Albumin (3.5-5.0) g/dL Globulin (2.2-3.9) gm/dL Albumin/Globulin Ratio (1.0-2.1) CHANA 6 Profile (NEGATIVE) Anti-Mitochondrial Ab (Negative) C. difficile Ag & Toxin Negative (NEGATIVE) Blood Type Antibody Screen 10/28/16 10/28/16 10/28/16 Range/Units 07:06 07:06 06:01 WBC 21.5 H (4.8-10.8) K/uL RBC 2.49 L (3.80-5.20) Mil/uL Hgb 7.9 L (11.0-16.0) g/dL Hct 23.4 L (34.0-47.0) % MCV 94.0 D (81.0-99.0) fL MCH 31.6 H (27.0-31.0) pg MCHC 33.6 (33.0-37.0) g/dL RDW 22.4 H (11.5-14.5) % Plt Count 144 (130-400) K/uL MPV 10.1 (7.2-11.7) fL PT (9.7-12.2) SECONDS INR Fibrinogen (200-400) mg/dL Fibrin Degrad Products (NEGATIVE) Fibrin Degrad Prod, Qt (<10) ug/mL Sodium 132 (132-148) mmol/L Potassium 2.9 L (3.6-5.2) mmol/L Chloride 97 L (98-107) mmol/L Carbon Dioxide 26 (22-30) mmol/L Anion Gap 12 (10-20) BUN 18 H (7-17) mg/dL Creatinine 1.1 (0.7-1.2) MG/DL Est GFR ( Amer) 59 Est GFR (Non-Af Amer) 49 POC Glucose (mg/dL) 296 H (65-110) mg/dL Random Glucose 277 H (65-105) mg/dL Calcium 8.0 L (8.6-10.4) mg/dl Total Bilirubin 8.3 H (0.2-1.3) mg/dL AST 39 H D (14-36) U/L ALT 18 (9-52) U/L Alkaline Phosphatase 124 (38-126) U/L Total Protein 6.3 (6.3-8.3) g/dL Albumin 2.1 L (3.5-5.0) g/dL Globulin 4.3 H (2.2-3.9) gm/dL Albumin/Globulin Ratio 0.5 L (1.0-2.1) CHANA 6 Profile (NEGATIVE) Anti-Mitochondrial Ab (Negative) C. difficile Ag & Toxin (NEGATIVE) Blood Type Antibody Screen 10/28/16 10/28/16 10/27/16 Range/Units 02:22 00:04 23:01 WBC (4.8-10.8) K/uL RBC (3.80-5.20) Mil/uL Hgb (11.0-16.0) g/dL Hct (34.0-47.0) % MCV (81.0-99.0) fL MCH (27.0-31.0) pg MCHC (33.0-37.0) g/dL RDW (11.5-14.5) % Plt Count (130-400) K/uL MPV (7.2-11.7) fL PT (9.7-12.2) SECONDS INR Fibrinogen (200-400) mg/dL Fibrin Degrad Products (NEGATIVE) Fibrin Degrad Prod, Qt (<10) ug/mL Sodium (132-148) mmol/L Potassium (3.6-5.2) mmol/L Chloride (98-107) mmol/L Carbon Dioxide (22-30) mmol/L Anion Gap (10-20) BUN (7-17) mg/dL Creatinine (0.7-1.2) MG/DL Est GFR ( Amer) Est GFR (Non-Af Amer) POC Glucose (mg/dL) 285 H 145 H 407 H* (65-110) mg/dL Random Glucose (65-105) mg/dL Calcium (8.6-10.4) mg/dl Total Bilirubin (0.2-1.3) mg/dL AST (14-36) U/L ALT (9-52) U/L Alkaline Phosphatase (38-126) U/L Total Protein (6.3-8.3) g/dL Albumin (3.5-5.0) g/dL Globulin (2.2-3.9) gm/dL Albumin/Globulin Ratio (1.0-2.1) CHANA 6 Profile (NEGATIVE) Anti-Mitochondrial Ab (Negative) C. difficile Ag & Toxin (NEGATIVE) Blood Type Antibody Screen 07/06/17 07/06/17 07/06/17 Range/Units 22:40 22:22 21:00 WBC (4.8-10.8) K/uL RBC (3.80-5.20) Mil/uL Hgb 8.2 L (11.0-16.0) g/dL Hct (34.0-47.0) % MCV (81.0-99.0) fL MCH (27.0-31.0) pg MCHC (33.0-37.0) g/dL RDW (11.5-14.5) % Plt Count (130-400) K/uL MPV (7.2-11.7) fL PT (9.7-12.2) SECONDS INR Fibrinogen (200-400) mg/dL Fibrin Degrad Products (NEGATIVE) Fibrin Degrad Prod, Qt (<10) ug/mL Sodium (132-148) mmol/L Potassium (3.6-5.2) mmol/L Chloride (98-107) mmol/L Carbon Dioxide (22-30) mmol/L Anion Gap (10-20) BUN (7-17) mg/dL Creatinine (0.7-1.2) MG/DL Est GFR ( Amer) Est GFR (Non-Af Amer) POC Glucose (mg/dL) < 20 L* < 20 L* (65-110) mg/dL Random Glucose (65-105) mg/dL Calcium (8.6-10.4) mg/dl Total Bilirubin (0.2-1.3) mg/dL AST (14-36) U/L ALT (9-52) U/L Alkaline Phosphatase (38-126) U/L Total Protein (6.3-8.3) g/dL Albumin (3.5-5.0) g/dL Globulin (2.2-3.9) gm/dL Albumin/Globulin Ratio (1.0-2.1) CHANA 6 Profile (NEGATIVE) Anti-Mitochondrial Ab (Negative) C. difficile Ag & Toxin (NEGATIVE) Blood Type Antibody Screen 10/27/16 10/27/16 10/27/16 Range/Units 17:55 15:11 15:11 WBC (4.8-10.8) K/uL RBC (3.80-5.20) Mil/uL Hgb (11.0-16.0) g/dL Hct (34.0-47.0) % MCV (81.0-99.0) fL MCH (27.0-31.0) pg MCHC (33.0-37.0) g/dL RDW (11.5-14.5) % Plt Count (130-400) K/uL MPV (7.2-11.7) fL PT (9.7-12.2) SECONDS INR Fibrinogen 159 L (200-400) mg/dL Fibrin Degrad Products Positive H (NEGATIVE) Fibrin Degrad Prod, Qt >40 H (<10) ug/mL Sodium (132-148) mmol/L Potassium (3.6-5.2) mmol/L Chloride (98-107) mmol/L Carbon Dioxide (22-30) mmol/L Anion Gap (10-20) BUN (7-17) mg/dL Creatinine (0.7-1.2) MG/DL Est GFR ( Amer) Est GFR (Non-Af Amer) POC Glucose (mg/dL) 88 (65-110) mg/dL Random Glucose (65-105) mg/dL Calcium (8.6-10.4) mg/dl Total Bilirubin (0.2-1.3) mg/dL AST (14-36) U/L ALT (9-52) U/L Alkaline Phosphatase (38-126) U/L Total Protein (6.3-8.3) g/dL Albumin (3.5-5.0) g/dL Globulin (2.2-3.9) gm/dL Albumin/Globulin Ratio (1.0-2.1) CHANA 6 Profile (NEGATIVE) Anti-Mitochondrial Ab (Negative) C. difficile Ag & Toxin (NEGATIVE) Blood Type B POSITIVE Antibody Screen Negative 10/26/16 10/26/16 Range/Units 15:32 15:32 WBC (4.8-10.8) K/uL RBC (3.80-5.20) Mil/uL Hgb (11.0-16.0) g/dL Hct (34.0-47.0) % MCV (81.0-99.0) fL MCH (27.0-31.0) pg MCHC (33.0-37.0) g/dL RDW (11.5-14.5) % Plt Count (130-400) K/uL MPV (7.2-11.7) fL PT (9.7-12.2) SECONDS INR Fibrinogen (200-400) mg/dL Fibrin Degrad Products (NEGATIVE) Fibrin Degrad Prod, Qt (<10) ug/mL Sodium (132-148) mmol/L Potassium (3.6-5.2) mmol/L Chloride (98-107) mmol/L Carbon Dioxide (22-30) mmol/L Anion Gap (10-20) BUN (7-17) mg/dL Creatinine (0.7-1.2) MG/DL Est GFR ( Amer) Est GFR (Non-Af Amer) POC Glucose (mg/dL) (65-110) mg/dL Random Glucose (65-105) mg/dL Calcium (8.6-10.4) mg/dl Total Bilirubin (0.2-1.3) mg/dL AST (14-36) U/L ALT (9-52) U/L Alkaline Phosphatase (38-126) U/L Total Protein (6.3-8.3) g/dL Albumin (3.5-5.0) g/dL Globulin (2.2-3.9) gm/dL Albumin/Globulin Ratio (1.0-2.1) CHANA 6 Profile Negative (NEGATIVE) Anti-Mitochondrial Ab Negative (Negative) C. difficile Ag & Toxin (NEGATIVE) Blood Type Antibody Screen Laboratory Results - last 24 hr 10/26/16 10/26/16 10/27/16 15:32 15:32 15:11 WBC RBC Hgb Hct MCV MCH MCHC RDW Plt Count MPV PT INR Fibrinogen 159 L Fibrin Degrad Products Positive H Fibrin Degrad Prod, Qt >40 H Sodium Potassium Chloride Carbon Dioxide Anion Gap BUN Creatinine Est GFR ( Amer) Est GFR (Non-Af Amer) POC Glucose (mg/dL) Random Glucose Calcium Total Bilirubin AST ALT Alkaline Phosphatase Total Protein Albumin Globulin Albumin/Globulin Ratio CHANA 6 Profile Negative Anti-Mitochondrial Ab Negative C. difficile Ag & Toxin Blood Type Antibody Screen 10/27/16 10/27/16 10/27/16 15:11 17:55 21:00 WBC RBC Hgb 8.2 L Hct MCV MCH MCHC RDW Plt Count MPV PT INR Fibrinogen Fibrin Degrad Products Fibrin Degrad Prod, Qt Sodium Potassium Chloride Carbon Dioxide Anion Gap BUN Creatinine Est GFR ( Amer) Est GFR (Non-Af Amer) POC Glucose (mg/dL) 88 Random Glucose Calcium Total Bilirubin AST ALT Alkaline Phosphatase Total Protein Albumin Globulin Albumin/Globulin Ratio CHANA 6 Profile Anti-Mitochondrial Ab C. difficile Ag & Toxin Blood Type B POSITIVE Antibody Screen Negative 10/27/16 10/27/16 10/27/16 22:22 22:40 23:01 WBC RBC Hgb Hct MCV MCH MCHC RDW Plt Count MPV PT INR Fibrinogen Fibrin Degrad Products Fibrin Degrad Prod, Qt Sodium Potassium Chloride Carbon Dioxide Anion Gap BUN Creatinine Est GFR ( Amer) Est GFR (Non-Af Amer) POC Glucose (mg/dL) < 20 L* < 20 L* 407 H* Random Glucose Calcium Total Bilirubin AST ALT Alkaline Phosphatase Total Protein Albumin Globulin Albumin/Globulin Ratio CHANA 6 Profile Anti-Mitochondrial Ab C. difficile Ag & Toxin Blood Type Antibody Screen 10/28/16 10/28/16 10/28/16 00:04 02:22 06:01 WBC RBC Hgb Hct MCV MCH MCHC RDW Plt Count MPV PT INR Fibrinogen Fibrin Degrad Products Fibrin Degrad Prod, Qt Sodium Potassium Chloride Carbon Dioxide Anion Gap BUN Creatinine Est GFR ( Amer) Est GFR (Non-Af Amer) POC Glucose (mg/dL) 145 H 285 H 296 H Random Glucose Calcium Total Bilirubin AST ALT Alkaline Phosphatase Total Protein Albumin Globulin Albumin/Globulin Ratio CHANA 6 Profile Anti-Mitochondrial Ab C. difficile Ag & Toxin Blood Type Antibody Screen 10/28/16 10/28/16 10/28/16 07:06 07:06 08:07 WBC 21.5 H RBC 2.49 L Hgb 7.9 L Hct 23.4 L MCV 94.0 D MCH 31.6 H MCHC 33.6 RDW 22.4 H Plt Count 144 MPV 10.1 PT 19.5 H INR 1.7 Fibrinogen Fibrin Degrad Products Fibrin Degrad Prod, Qt Sodium 132 Potassium 2.9 L Chloride 97 L Carbon Dioxide 26 Anion Gap 12 BUN 18 H Creatinine 1.1 Est GFR ( Amer) 59 Est GFR (Non-Af Amer) 49 POC Glucose (mg/dL) Random Glucose 277 H Calcium 8.0 L Total Bilirubin 8.3 H AST 39 H D ALT 18 Alkaline Phosphatase 124 Total Protein 6.3 Albumin 2.1 L Globulin 4.3 H Albumin/Globulin Ratio 0.5 L CHANA 6 Profile Anti-Mitochondrial Ab C. difficile Ag & Toxin Blood Type Antibody Screen 10/28/16 10/28/16 12:00 15:00 WBC RBC Hgb Hct MCV MCH MCHC RDW Plt Count MPV PT INR Fibrinogen Fibrin Degrad Products Fibrin Degrad Prod, Qt Sodium Potassium Chloride Carbon Dioxide Anion Gap BUN Creatinine Est GFR ( Amer) Est GFR (Non-Af Amer) POC Glucose (mg/dL) 290 H Random Glucose Calcium Total Bilirubin AST ALT Alkaline Phosphatase Total Protein Albumin Globulin Albumin/Globulin Ratio CHANA 6 Profile Anti-Mitochondrial Ab C. difficile Ag & Toxin Negative Blood Type Antibody Screen Critical Care Progress Note - Nutrition Nutrition: Nutrition Category Date Time Status Liquid Diet [DIET] Diets 10/28/16 Lunch Active Assessment/Plan (1) Lower GI bleed Current Visit: Yes Status: Acute (2) Leucocytosis Current Visit: Yes Status: Acute (3) CKD (chronic kidney disease) stage 3, GFR 30-59 ml/min Current Visit: No Status: Acute (4) ESRD (end stage renal disease) on dialysis Current Visit: No Status: Chronic Attending/Attestation - Attestation I have personally seen and examined this patient.: Yes I have fully participated in the care of the patient.: Yes I have reviewed all pertinent clinical information: Yes Notes (Text): 10/28/16 16:03 Patient seen and examined in the intensive care unit. Case discussed with STAFF in the morning rounds. Status post tracheostomy on ventilatory support Status post sigmoidoscopy consistent with ischemic colitis, surgical consult requested Transfuse packed RBCs as needed Continue hemodialysis Continue antibiotics
[2016-10-28 07:54] LABS: POTASSIUM 2.9 mmol/L (3.6-5.2)
[2016-10-28 07:56] LABS: ALB/GLOB RATIO 0.5 (1.0-2.1); BILIRUBIN,TOTAL 8.3 mg/dL (0.2-1.3); TOTAL PROTEIN 6.3 g/dL (6.3-8.3)
[2016-10-28 08:21] LABS: INR 1.7
--- NOTE | 2016-10-28 09:40 | RAD ---
Chest x-ray single frontal view History: Routine. Comparison: 10/25/2016 Findings: Patient is rotated in a portable semi-erect fashion. Tracheostomy tube projects to the left of the midline trachea. This may be related to patient positioning. Repeat study may be helpful. NG tube extending into the stomach. Other lines and tubes stable position. Status post median sternotomy and CABG. Large loculated right pleural effusion. Diffuse increased interstitial lung markings with associated venous congestion and or infiltrate. Dense prominent biapical pleural thickening with upper lobe granulomatous changes. Mild cardiomegaly. Calcification at the aortic knob. Degenerative changes in the spine and shoulders. Lobulated radiopaque foci project over the left proximal humerus. Impression: Patient is rotated in a portable semi-erect fashion. Tracheostomy tube projects to the left of the midline trachea. This may be related to patient positioning. Repeat study may be helpful. NG tube extending into the stomach. Other lines and tubes stable position. Status post median sternotomy and CABG. Large loculated right pleural effusion. Diffuse increased interstitial lung markings with associated venous congestion and or infiltrate. Dense prominent biapical pleural thickening with upper lobe granulomatous changes. Mild cardiomegaly. Calcification at the aortic knob. Degenerative changes in the spine and shoulders. Lobulated radiopaque foci project over the left proximal humerus.
--- NOTE | 2016-10-28 09:41 | CT ---
PROCEDURE: CT Abdomen and Pelvis with contrast HISTORY: Lower GI bleed, hyperbilirubinemia. Relevant medical history: Dialysis patient. COMPARISON: October 26, 2016 abdominal ultrasound 10/26/2016. CT thorax abdomen and pelvis. TECHNIQUE: Unenhanced study. Neither oral nor intravenous contrast administered. Radiation dose: Total exam DLP = 879.87 mGy-cm. This CT exam was performed using one or more of the following dose reduction techniques: Automated exposure control, adjustment of the mA and/or kV according to patient size, and/or use of iterative reconstruction technique. FINDINGS: LOWER THORAX: Trace bilateral pleural effusions. Associated dependent atelectasis. LIVER: Unremarkable. No gross lesion or ductal dilatation. GALLBLADDER AND BILE DUCTS: Unremarkable. PANCREAS: Unremarkable. No gross lesion or ductal dilatation. SPLEEN: Unremarkable. ADRENALS: Unremarkable. No mass. KIDNEYS AND URETERS: Unremarkable. No hydronephrosis. No solid mass. VASCULATURE: Diffuse vascular calcifications including aorta and visceral branch vessels. . No aortic aneurysm. BOWEL: Timo print thickening of the wall of the rectum and sigmoid compatible with proctitis. High density material within the colon may represent hemorrhage/ blood products. APPENDIX: Normal appendix. PERITONEUM: Small volume abdominal and pelvic ascites. LYMPH NODES: Unremarkable. No enlarged lymph nodes. BLADDER: Posterior lateral bladder diverticulum on the right. REPRODUCTIVE: Prior hysterectomy. BONES: L2, T12 compression fractures. OTHER FINDINGS: Severe subcutaneous edema/ anasarca. IMPRESSION: Acute proctitis/ colitis. High attenuation material within the rectosigmoid region may represent acute hemorrhage. Remaining benign and incidental findings are stable. This includes small bilateral pleural effusions, low volume ascites, edema/ anasarca cutaneous and subcutaneous tissues. Concordant results (preliminary interpretation) provided by [employer]. Procedure Completed: 19:42 Preliminary ([facility]) Report: Dictated and Authenticated: 20:37. Final Interpretation: 09:35. October 28, 2016.
[2016-10-28] MEDS ORDERED: Lactated Ringer's 1,000 ML IV ONE (10:18)
[2016-10-28] MEDS ORDERED: Sodium Chloride 0.9% 500 ML IV ONE (10:18)
[2016-10-28] MEDS ORDERED: Propofol 10 mg/ml Inj (20 ML) ONE (10:37)
--- NOTE | 2016-10-28 12:06 | CP.PCM.CON ---
History of Present Illness - History of Present Illness History of Present Illness: palliative consult Requested by Eugenia BAHENA Reason: Goals of care, poor prognosis Patient is 75 yo lady admitted fro SNF where she was noteced with rectal bleeding. Patient was given 1 unit of PRBCs prior to transfer to hospital. Upon arrival to ED patient was on Levophed for BP support. During this hospital stay patient continue to have bright red rectal bleeding, sometimesmixed with dtool. Patient was kept NPO and given artificial nutition. The CT abdomen was significant for diffuse collitis. Doctor Hector called for GI consult. Patient unstable for colonoscopy due to low BP. Hb is dropping, 7.9 today. Blood transfusions administered. BC + Staph infection. Patient startted on Merrem IVand Vanco PO. prognosis seen as poor. 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, CHF, HTN Soc: Hx: [facility] resident, daughter Marc very involved in care, family very voodoo Fam : Hx: has a brother in good health, denied other fam Hx Review of Systems - Review of Systems All systems: reviewed and no additional remarkable complaints except - Constitutional Constitutional: Weakness Additional comments: looking chronically ill , extremly poor quality of life - EENT Eyes: absent: As Per HPI, Blind Spots, Blurred Vision, Change in Vision, Decreased Night Vision, Diplopia, Discharge, Dry Eye, Exophthalmos, Floaters, Irritation, Itchy Eyes, Loss of Peripheral Vision, Pain, Photophobia, Requires Corrective Lenses, Sees Flashes, Spots in Vision, Tunnel Vision, Other Visual Disturbances, Loss of Vision, Other Ears: absent: As Per HPI, Decreased Hearing, Ear Discharge, Ear Pain, Tinnitus, Abnormal Hearing, Disequilibrium, Dizziness, Other Additional comments: Trach, NGT in place - Cardiovascular Cardiovascular: Rapid Heart Rate - Respiratory Additional comments: On MV - Gastrointestinal Gastrointestinal: Melena - Genitourinary Additional comments: On HD - Reproductive: Female Reproductive:Female: Post Menopausal - Menstruation Menstruation: Post Menopausal - Integumentary Integumentary: Dry Skin - Neurological Neurological: Focal Weakness - Endocrine Endocrine: Change in Body Appearance - Hematologic/Lymphatic Hematologic: Easy Bleeding Past Patient History - Infectious Disease Hx of Infectious Diseases: None - Past Medical History & Family History Past Medical History?: Yes - Past Social History Smoking Status: Never Smoked - CARDIAC Hx Congestive Heart Failure: Yes Hx Hypercholesterolemia: Yes Hx Hypertension: Yes Hx Peripheral Edema: Yes - PULMONARY Hx Respiratory Disorders: Yes Other/Comment: hx of thoracentesis,recurrent pleural effusion - NEUROLOGICAL Hx Neurological Disorder: No - HEENT Hx HEENT Problems: Yes Other/Comment: hard of hearing - RENAL Hx Chronic Kidney Disease: Yes - ENDOCRINE/METABOLIC Hx Hypothyroidism: Yes - HEMATOLOGICAL/ONCOLOGICAL Hx Blood Disorders: No - INTEGUMENTARY Hx Dermatological Problems: No - MUSCULOSKELETAL/RHEUMATOLOGICAL Hx Musculoskeletal Disorders: No Hx Falls: No - GASTROINTESTINAL Hx Crohn's Disease: No Hx Diverticulitis: No - GENITOURINARY/GYNECOLOGICAL Hx Genitourinary Disorders: Yes Hx Urinary Tract Infection: Yes (2006) Other/Comment: ureteral stent placed 06/2015 - PSYCHIATRIC Hx Substance Use: No - SURGICAL HISTORY Hx Coronary Artery Bypass Graft: Yes (2001) Hx Coronary Stent: Yes (x3 in 2006) - ANESTHESIA Hx Anesthesia: Yes Hx Anesthesia Reactions: No Hx Malignant Hyperthermia: No Meds Allergies/Adverse Reactions: Allergies Allergy/AdvReac Type Severity Reaction Status Date / Time Sulfa (Sulfonamide Allergy RASH Verified 10/25/16 15:46 Antibiotics) - Medications Medications: Current Medications Epoetin Sly (Procrit) 10,000 unit IV MWF [facility] Last Admin: 10/26/16 16:10 Dose: 10,000 unit Norepinephrine Bitartrate 4 mg (/ Dextrose) 254 mls @ 7.62 mls/hr IV .Q24H PRN ; Protocol; 2 MCG/MIN PRN Reason: TITRATE PER MD ORDER Last Admin: 10/28/16 08:41 Dose: 5.9 mcg/min, 22.47 mls/hr Meropenem 500 mg/ Sodium (Chloride) 100 mls @ 100 mls/hr IVPB Q24H [facility] Last Admin: 10/27/16 18:33 Dose: 100 mls/hr Dextrose (Dextrose 5% In Water 1000 Ml) 1,000 mls @ 40 mls/hr IV .Q24H [facility] Last Admin: 10/27/16 22:44 Dose: 40 mls/hr Potassium Chloride (Potassium Chloride 20 Meq/100 Ml) 20 meq in 100 mls @ 50 mls/hr IVPB Q2H [facility] Stop: 10/28/16 12:29 Last Admin: 10/28/16 10:23 Dose: 50 mls/hr Insulin Human Regular (Novolin R) 0 unit SC Q6 [facility] PRN Reason: Protocol Last Admin: 10/28/16 06:37 Dose: 3 unit Levothyroxine Sodium (Synthroid) 200 mcg PO DAILY@0630 [facility] Last Admin: 10/28/16 06:53 Dose: Not Given Lorazepam (Ativan) 1 mg IVP Q4 PRN PRN Reason: Agitation Pantoprazole Sodium (Protonix Inj) 40 mg IVP DAILY [facility] Last Admin: 10/28/16 10:32 Dose: 40 mg Vancomycin HCl (Vancocin (Oral Or Rectal Use)) 125 mg PO Q6H [facility] Last Admin: 10/28/16 10:23 Dose: Not Given Physical Exam - Constitutional Appears: Chronically Ill - Head Exam Head Exam: ATRAUMATIC, NORMAL INSPECTION, NORMOCEPHALIC - Eye Exam Eye Exam: EOMI, Normal appearance, PERRL Pupil Exam: NORMAL ACCOMODATION, PERRL - ENT Exam ENT Exam: Mucous Membranes Dry Additional comments: Tracheostomy - Neck Exam Neck exam: Positive for: Normal Inspection - Respiratory Exam Respiratory Exam: Decreased Breath Sounds Additional comments: On MV - Cardiovascular Exam Additional comments: BP 98/45, on Levophed - GI/Abdominal Exam GI & Abdominal Exam: Diminished Bowel Sounds - Rectal Exam Additional comments: Rectal bleeding - Extremities Exam Extremities exam: Positive for: normal inspection - Back Exam Back exam: NORMAL INSPECTION - Neurological Exam Neurological exam: Alert, Altered - Psychiatric Exam Psychiatric exam: Flat Affect - Skin Skin Exam: Pallor, Warm Results - Vital Signs Recent Vital Signs: Last Vital Signs Temp 97.2 F L 10/28/16 11:08 Pulse 64 10/28/16 11:08 Resp 17 10/28/16 11:08 BP 98/45 L 10/28/16 11:08 Pulse Ox 100 10/28/16 11:08 - Labs Result Diagrams: 10/28/16 07:06 10/28/16 07:06 Labs: Laboratory Results - last 24 hr 10/27/16 10/27/16 10/27/16 13:42 14:55 14:55 WBC RBC Hgb 7.3 L Hct MCV MCH MCHC RDW Plt Count MPV PT INR Fibrinogen Fibrin Degrad Products Fibrin Degrad Prod, Qt Sodium Potassium Chloride Carbon Dioxide Anion Gap BUN Creatinine Est GFR ( Amer) Est GFR (Non-Af Amer) POC Glucose (mg/dL) Random Glucose Lactic Acid 1.1 Calcium Total Bilirubin AST ALT Alkaline Phosphatase Lactate Dehydrogenase 276 L Total Protein Albumin Globulin Albumin/Globulin Ratio Blood Type Antibody Screen 10/27/16 10/27/16 10/27/16 15:11 15:11 17:55 WBC RBC Hgb Hct MCV MCH MCHC RDW Plt Count MPV PT INR Fibrinogen 159 L Fibrin Degrad Products Positive H Fibrin Degrad Prod, Qt >40 H Sodium Potassium Chloride Carbon Dioxide Anion Gap BUN Creatinine Est GFR ( Amer) Est GFR (Non-Af Amer) POC Glucose (mg/dL) 88 Random Glucose Lactic Acid Calcium Total Bilirubin AST ALT Alkaline Phosphatase Lactate Dehydrogenase Total Protein Albumin Globulin Albumin/Globulin Ratio Blood Type B POSITIVE Antibody Screen Negative 10/27/16 10/27/16 10/27/16 21:00 22:22 22:40 WBC RBC Hgb 8.2 L Hct MCV MCH MCHC RDW Plt Count MPV PT INR Fibrinogen Fibrin Degrad Products Fibrin Degrad Prod, Qt Sodium Potassium Chloride Carbon Dioxide Anion Gap BUN Creatinine Est GFR ( Amer) Est GFR (Non-Af Amer) POC Glucose (mg/dL) < 20 L* < 20 L* Random Glucose Lactic Acid Calcium Total Bilirubin AST ALT Alkaline Phosphatase Lactate Dehydrogenase Total Protein Albumin Globulin Albumin/Globulin Ratio Blood Type Antibody Screen 10/27/16 10/28/16 10/28/16 23:01 00:04 02:22 WBC RBC Hgb Hct MCV MCH MCHC RDW Plt Count MPV PT INR Fibrinogen Fibrin Degrad Products Fibrin Degrad Prod, Qt Sodium Potassium Chloride Carbon Dioxide Anion Gap BUN Creatinine Est GFR ( Amer) Est GFR (Non-Af Amer) POC Glucose (mg/dL) 407 H* 145 H 285 H Random Glucose Lactic Acid Calcium Total Bilirubin AST ALT Alkaline Phosphatase Lactate Dehydrogenase Total Protein Albumin Globulin Albumin/Globulin Ratio Blood Type Antibody Screen 10/28/16 10/28/16 10/28/16 06:01 07:06 07:06 WBC 21.5 H RBC 2.49 L Hgb 7.9 L Hct 23.4 L MCV 94.0 D MCH 31.6 H MCHC 33.6 RDW 22.4 H Plt Count 144 MPV 10.1 PT INR Fibrinogen Fibrin Degrad Products Fibrin Degrad Prod, Qt Sodium 132 Potassium 2.9 L Chloride 97 L Carbon Dioxide 26 Anion Gap 12 BUN 18 H Creatinine 1.1 Est GFR ( Amer) 59 Est GFR (Non-Af Amer) 49 POC Glucose (mg/dL) 296 H Random Glucose 277 H Lactic Acid Calcium 8.0 L Total Bilirubin 8.3 H AST 39 H D ALT 18 Alkaline Phosphatase 124 Lactate Dehydrogenase Total Protein 6.3 Albumin 2.1 L Globulin 4.3 H Albumin/Globulin Ratio 0.5 L Blood Type Antibody Screen 10/28/16 08:07 WBC RBC Hgb Hct MCV MCH MCHC RDW Plt Count MPV PT 19.5 H INR 1.7 Fibrinogen Fibrin Degrad Products Fibrin Degrad Prod, Qt Sodium Potassium Chloride Carbon Dioxide Anion Gap BUN Creatinine Est GFR ( Amer) Est GFR (Non-Af Amer) POC Glucose (mg/dL) Random Glucose Lactic Acid Calcium Total Bilirubin AST ALT Alkaline Phosphatase Lactate Dehydrogenase Total Protein Albumin Globulin Albumin/Globulin Ratio Blood Type Antibody Screen Assessment & Plan - Assessment and Plan (Free Text) Assessment: Palliative consult Code status Full Code, resuscitation order from [facility], on chart, PPS 10%, ROS obtained from nursing and marked. I reviewed medical records, all diagnostic studies, examined patient in the bed and discussed Code status with patient;s daughter Marc over the phone. Patient is alert, makes eye contacts only, non verbal, affect flat. Skin very pale, hb 7.9. trach in place. patient on MV. NGT in place for PO meds and artificial nutrition. BP 98/45, HR 64, afebrile. There is a rectal bleed, bright red with cloths. As per GI consult patient is not stable candidate for colonoscopy. The copy on chart regarding the code status is not clear; indicates Full Resuscitation as well as Limited resuscitation. I discussed Code status with patient's daughter Macr over the phone. I reviewed patient's clinical presentation and elicited daughter's insight of patient's condition. I also offered my concerns regarding quality of life issues. I had this same discussion with patient's daughter at one of previous admissions. The daughter is convinced that if her mother was feed by mouth, it would boost the healing process. I corrected her knowledge about bowel rest in cse of rectal bleed and reassured her that patient was given artificial nutrition. The daughter does not think that her mother is suffering. her impression is that this is a another phase of the chronic disease, and once patient pulls trough this, patient would be just fine. Daughter's expectation from this admission is for mother to recover and to return to SNF. She also prefers the CPR to be performed if her mother's heart stops. I very gently suggested that patient's condition was very poor , and we were doing all prudent measures to support her life and promote comfort. Impression * This is a very sick patient, who is actively dying , in my opinion * Patient is unable to advocate for her self and patient's daughter is very unrealistic in her expectations * The daughter is very realistic and her process of thinking is influenced by her voodoo Gurry, as she admitted * Patient is suffering from very complex symptoms as result of her complex medical Hx * There is body image disturbance, patient is unable to speak, eat or walk Suggestion * Patient to remain Full Code as per daughter's request * Monitor H&H * promote comfort I will continue to work with patient's daughter towards the DNR status as it would be the best level of care for this very sick patient . Thank you very much for consulting Palliative Care
--- NOTE | 2016-10-28 13:04 | CP.PCM.PN ---
Subjective - Date & Time of Evaluation Date of Evaluation: 10/28/16 Time of Evaluation: 13:02 - Subjective Subjective: events noted remains on levophed- now at 6mcg/min Remains on vent; awake still with melena- s/p flex sig- possible ischemic colitis receiving another prbc blood transfusion; had 1 unit also 10/27 with HD CXR still with CHF- for dialysis today and 10/29 Objective - Vital Signs/Intake and Output Vital Signs (last 24 hours): Temp Pulse Resp BP Pulse Ox 97.2 F L 64 17 98/45 L 100 10/28/16 11:08 10/28/16 11:08 10/28/16 11:08 10/28/16 11:08 10/28/16 11:08 Intake and Output: 10/28/16 10/28/16 06:59 18:59 Intake Total 740.0 316.5 Output Total 0 0 Balance 740.0 316.5 - Medications Medications: Current Medications Epoetin Sly (Procrit) 10,000 unit IV MWF [facility] Last Admin: 10/26/16 16:10 Dose: 10,000 unit Norepinephrine Bitartrate 4 mg (/ Dextrose) 254 mls @ 7.62 mls/hr IV .Q24H PRN ; Protocol; 2 MCG/MIN PRN Reason: TITRATE PER MD ORDER Last Admin: 10/28/16 08:41 Dose: 5.9 mcg/min, 22.47 mls/hr Meropenem 500 mg/ Sodium (Chloride) 100 mls @ 100 mls/hr IVPB Q24H [facility] Last Admin: 10/27/16 18:33 Dose: 100 mls/hr Dextrose (Dextrose 5% In Water 1000 Ml) 1,000 mls @ 40 mls/hr IV .Q24H [facility] Last Admin: 10/27/16 22:44 Dose: 40 mls/hr Insulin Human Regular (Novolin R) 0 unit SC Q6 [facility] PRN Reason: Protocol Last Admin: 10/28/16 12:31 Dose: Not Given Levothyroxine Sodium (Synthroid) 200 mcg PO DAILY@629 [facility] Last Admin: 10/28/16 06:53 Dose: Not Given Lorazepam (Ativan) 1 mg IVP Q4 PRN PRN Reason: Agitation Pantoprazole Sodium (Protonix Inj) 40 mg IVP DAILY [facility] Last Admin: 10/28/16 10:32 Dose: 40 mg Vancomycin HCl (Vancocin (Oral Or Rectal Use)) 125 mg PO Q6H [facility] Last Admin: 10/28/16 10:23 Dose: Not Given - Labs Labs: 10/28/16 07:06 10/28/16 07:06 PT 19.5 SECONDS (9.7-12.2) H 10/28/16 08:07 INR 1.7 10/28/16 08:07 APTT 49 SECONDS (21-34) H 10/25/16 16:33 - Constitutional Appears: In Acute Distress, Chronically Ill - Head Exam Head Exam: ATRAUMATIC, NORMAL INSPECTION - Eye Exam Eye Exam: EOMI, Normal appearance - Neck Exam Neck Exam: Normal Inspection. absent: Tenderness - Respiratory Exam Respiratory Exam: Rales, Respiratory Distress - Cardiovascular Exam Cardiovascular Exam: Tachycardia, +S1 - GI/Abdominal Exam GI & Abdominal Exam: Distended, Soft - Extremities Exam Extremities Exam: Normal Inspection. absent: Tenderness - Neurological Exam Neurological Exam: Awake, CN II-XII Intact - Skin Skin Exam: Dry, Warm Assessment and Plan (1) Lower GI bleed Status: Acute (2) Diabetic nephropathy with proteinuria Status: Acute (3) CHF (congestive heart failure) Status: Chronic (4) ESRD (end stage renal disease) on dialysis Status: Chronic - Assessment and Plan (Free Text) Plan: Transfuse prbcs 1 unit now Dialysis today and 10/29; will use 4 K bath pressor support; vent management check c.diff surgical eval for possible ischemic bowel
[2016-10-28] MEDS ORDERED: Albumin Human 25% (12.5 gm/50 ml) IV ONE ×2 (14:06→16:04)
--- NOTE | 2016-10-28 14:43 | CP.PCM.CON ---
History of Present Illness - History of Present Illness History of Present Illness: General sx consult for Dr. Johanna Chen, PGY-1 Pt S & E at bedside. History as per daughter at bedside. 76F w/PMH sig for ESRD on HD, CAD s/p stents, DM, recurrent B/L pleural effusions, hypothyroidism, hx empyema of R lung consulted for ischemic colitis. Pt brought to hospital for BRBPR s/p rectal probe/thermometer use during LTAC stay. Positive FOB in ICU, GI performed sigmoidoscopy with findings consistent ischemic colitis, bleeding vessel identified- injected with epi and treated with cautery. s/p intervention pt had another, smaller episode of maroon stool per nursing. Pt awake, alert, but non verbal due to tracheostomy on mechanical vent- PRVC at 40% FiO2, PEEP 5, RR 14, TV 300. ROS limited due to tracheostomy and mechanical vent. PMH: ESRD on HD, CAD s/p stents, DM, recurrent B/L pleural effusions, hypothyroidism, hx empyema of R lung PSH: CABG, coronary stents, AVF of LUE, recurrent thoracentesis All: Sulfa, mites SH: Denies tobacco, ETOH, or illicit drug use/history of Review of Systems - Review of Systems Systems not reviewed;Unavailable: Other (tracheostomy on mechanical vent) Past Patient History - Infectious Disease Hx of Infectious Diseases: None - Past Medical History & Family History Past Medical History?: Yes - Past Social History Smoking Status: Never Smoked - CARDIAC Hx Congestive Heart Failure: Yes Hx Hypercholesterolemia: Yes Hx Hypertension: Yes Hx Peripheral Edema: Yes - PULMONARY Hx Respiratory Disorders: Yes Other/Comment: hx of thoracentesis,recurrent pleural effusion - NEUROLOGICAL Hx Neurological Disorder: No - HEENT Hx HEENT Problems: Yes Other/Comment: hard of hearing - RENAL Hx Chronic Kidney Disease: Yes - ENDOCRINE/METABOLIC Hx Hypothyroidism: Yes - HEMATOLOGICAL/ONCOLOGICAL Hx Blood Disorders: No - INTEGUMENTARY Hx Dermatological Problems: No - MUSCULOSKELETAL/RHEUMATOLOGICAL Hx Musculoskeletal Disorders: No Hx Falls: No - GASTROINTESTINAL Hx Crohn's Disease: No Hx Diverticulitis: No - GENITOURINARY/GYNECOLOGICAL Hx Genitourinary Disorders: Yes Hx Urinary Tract Infection: Yes (2006) Other/Comment: ureteral stent placed 06/2015 - PSYCHIATRIC Hx Substance Use: No - SURGICAL HISTORY Hx Coronary Artery Bypass Graft: Yes (2001) Hx Coronary Stent: Yes (x3 in 2006) - ANESTHESIA Hx Anesthesia: Yes Hx Anesthesia Reactions: No Hx Malignant Hyperthermia: No Meds Allergies/Adverse Reactions: Allergies Allergy/AdvReac Type Severity Reaction Status Date / Time Sulfa (Sulfonamide Allergy RASH Verified 10/25/16 15:46 Antibiotics) - Medications Medications: Current Medications Epoetin Sly (Procrit) 10,000 unit IV MWF [facility] Last Admin: 10/26/16 16:10 Dose: 10,000 unit Norepinephrine Bitartrate 4 mg (/ Dextrose) 254 mls @ 7.62 mls/hr IV .Q24H PRN ; Protocol; 2 MCG/MIN PRN Reason: TITRATE PER MD ORDER Last Admin: 10/28/16 08:41 Dose: 5.9 mcg/min, 22.47 mls/hr Meropenem 500 mg/ Sodium (Chloride) 100 mls @ 100 mls/hr IVPB Q24H [facility] Last Admin: 10/27/16 18:33 Dose: 100 mls/hr Dextrose (Dextrose 5% In Water 1000 Ml) 1,000 mls @ 40 mls/hr IV .Q24H [facility] Last Admin: 10/27/16 22:44 Dose: 40 mls/hr Insulin Human Regular (Novolin R) 0 unit SC Q6 [facility] PRN Reason: Protocol Last Admin: 10/28/16 12:31 Dose: Not Given Levothyroxine Sodium (Synthroid) 200 mcg PO DAILY@0630 [facility] Last Admin: 10/28/16 06:53 Dose: Not Given Lorazepam (Ativan) 1 mg IVP Q4 PRN PRN Reason: Agitation Pantoprazole Sodium (Protonix Inj) 40 mg IVP DAILY [facility] Last Admin: 10/28/16 10:32 Dose: 40 mg Vancomycin HCl (Vancocin (Oral Or Rectal Use)) 125 mg PO Q6H [facility] Last Admin: 10/28/16 10:23 Dose: Not Given Physical Exam - Constitutional Appears: Non-toxic, No Acute Distress - Head Exam Head Exam: ATRAUMATIC, NORMAL INSPECTION, NORMOCEPHALIC Additional comments: NGT in place - Eye Exam Eye Exam: EOMI, Normal appearance - ENT Exam ENT Exam: Mucous Membranes Moist. absent: Normal Exam (multiple missing teeth) - Neck Exam Additional comments: tracheostomy in place connected to mechanical vent - Respiratory Exam Respiratory Exam: Rhonchi (B/L, diffuse). absent: Clear to Auscultation Bilateral (coarse expiratory breath sounds), Rales, Wheezes, Respiratory Distress Additional comments: tracheostomy on mechanical vent - Cardiovascular Exam Cardiovascular Exam: REGULAR RHYTHM, +S1, +S2 - GI/Abdominal Exam GI & Abdominal Exam: Distended, Normal Bowel Sounds, Soft. absent: Firm, Guarding, Rigid, Tenderness - Extremities Exam Extremities exam: Positive for: pedal edema. Negative for: tenderness - Neurological Exam Neurological exam: Alert Additional comments: tracks with eyes - Psychiatric Exam Additional comments: non verbal due to tracheostomy - Skin Skin Exam: Dry, Intact, Normal Color, Warm Results - Vital Signs Recent Vital Signs: Last Vital Signs Temp 97.2 F L 10/28/16 11:08 Pulse 64 10/28/16 11:08 Resp 17 10/28/16 11:08 BP 98/45 L 10/28/16 11:08 Pulse Ox 100 10/28/16 11:08 - Labs Result Diagrams: 10/28/16 07:06 10/28/16 07:06 Labs: Laboratory Results - last 24 hr 10/26/16 10/27/16 10/27/16 15:32 14:55 14:55 WBC RBC Hgb Hct MCV MCH MCHC RDW Plt Count MPV PT INR Fibrinogen Fibrin Degrad Products Fibrin Degrad Prod, Qt Sodium Potassium Chloride Carbon Dioxide Anion Gap BUN Creatinine Est GFR ( Amer) Est GFR (Non-Af Amer) POC Glucose (mg/dL) Random Glucose Lactic Acid 1.1 Calcium Total Bilirubin AST ALT Alkaline Phosphatase Lactate Dehydrogenase 276 L Total Protein Albumin Globulin Albumin/Globulin Ratio CHANA 6 Profile Negative Blood Type Antibody Screen 10/27/16 10/27/16 10/27/16 15:11 15:11 17:55 WBC RBC Hgb Hct MCV MCH MCHC RDW Plt Count MPV PT INR Fibrinogen 159 L Fibrin Degrad Products Positive H Fibrin Degrad Prod, Qt >40 H Sodium Potassium Chloride Carbon Dioxide Anion Gap BUN Creatinine Est GFR ( Amer) Est GFR (Non-Af Amer) POC Glucose (mg/dL) 88 Random Glucose Lactic Acid Calcium Total Bilirubin AST ALT Alkaline Phosphatase Lactate Dehydrogenase Total Protein Albumin Globulin Albumin/Globulin Ratio CHANA 6 Profile Blood Type B POSITIVE Antibody Screen Negative 10/27/16 10/27/16 10/27/16 21:00 22:22 22:40 WBC RBC Hgb 8.2 L Hct MCV MCH MCHC RDW Plt Count MPV PT INR Fibrinogen Fibrin Degrad Products Fibrin Degrad Prod, Qt Sodium Potassium Chloride Carbon Dioxide Anion Gap BUN Creatinine Est GFR ( Amer) Est GFR (Non-Af Amer) POC Glucose (mg/dL) < 20 L* < 20 L* Random Glucose Lactic Acid Calcium Total Bilirubin AST ALT Alkaline Phosphatase Lactate Dehydrogenase Total Protein Albumin Globulin Albumin/Globulin Ratio CHANA 6 Profile Blood Type Antibody Screen 10/27/16 10/28/16 10/28/16 23:01 00:04 02:22 WBC RBC Hgb Hct MCV MCH MCHC RDW Plt Count MPV PT INR Fibrinogen Fibrin Degrad Products Fibrin Degrad Prod, Qt Sodium Potassium Chloride Carbon Dioxide Anion Gap BUN Creatinine Est GFR ( Amer) Est GFR (Non-Af Amer) POC Glucose (mg/dL) 407 H* 145 H 285 H Random Glucose Lactic Acid Calcium Total Bilirubin AST ALT Alkaline Phosphatase Lactate Dehydrogenase Total Protein Albumin Globulin Albumin/Globulin Ratio CHANA 6 Profile Blood Type Antibody Screen 10/28/16 10/28/16 10/28/16 06:01 07:06 07:06 WBC 21.5 H RBC 2.49 L Hgb 7.9 L Hct 23.4 L MCV 94.0 D MCH 31.6 H MCHC 33.6 RDW 22.4 H Plt Count 144 MPV 10.1 PT INR Fibrinogen Fibrin Degrad Products Fibrin Degrad Prod, Qt Sodium 132 Potassium 2.9 L Chloride 97 L Carbon Dioxide 26 Anion Gap 12 BUN 18 H Creatinine 1.1 Est GFR ( Amer) 59 Est GFR (Non-Af Amer) 49 POC Glucose (mg/dL) 296 H Random Glucose 277 H Lactic Acid Calcium 8.0 L Total Bilirubin 8.3 H AST 39 H D ALT 18 Alkaline Phosphatase 124 Lactate Dehydrogenase Total Protein 6.3 Albumin 2.1 L Globulin 4.3 H Albumin/Globulin Ratio 0.5 L CHANA 6 Profile Blood Type Antibody Screen 10/28/16 10/28/16 08:07 12:00 WBC RBC Hgb Hct MCV MCH MCHC RDW Plt Count MPV PT 19.5 H INR 1.7 Fibrinogen Fibrin Degrad Products Fibrin Degrad Prod, Qt Sodium Potassium Chloride Carbon Dioxide Anion Gap BUN Creatinine Est GFR ( Amer) Est GFR (Non-Af Amer) POC Glucose (mg/dL) 290 H Random Glucose Lactic Acid Calcium Total Bilirubin AST ALT Alkaline Phosphatase Lactate Dehydrogenase Total Protein Albumin Globulin Albumin/Globulin Ratio CHANA 6 Profile Blood Type Antibody Screen Assessment & Plan - Assessment and Plan (Free Text) Assessment: 76F w/ischemic colitis Plan: Serial ab exams FU GI recs Cont conservative mgmt no surgical intervention at this time due to poor prognosis poor surgical candidate due to ESRD on frequent dialysis, CAD w/stents s/p CABG , respiratory failure requiring chronic mechanical ventilation and other co- morbidities with high mortality risk with surgical intervention as discussed with daughter at bedside Will cont to monitor Thank you for this consult DW attending April, PGY-1 - Date & Time Date: 10/28/16 Time: 14:30
[2016-10-28] MEDS: EPOETIN ALFA 10,000 UNIT/ML ML IV SCH (14:48)
[2016-10-28 18:40] LABS: BASO % 0.3 % (0.0-2.0); EOS # 0.1 K/uL (0.0-0.7); EOS % 0.4 % (0.0-4.0); HEMATOCRIT 22.8 % (34.0-47.0); LYMPH # 1.1 K/uL (1.0-4.3); LYMPH % 6.1 % (20.0-40.0); MEAN CELL VOLUME 92.6 fL (81.0-99.0); MEAN CORPUSCULAR HEMOGLOBIN 30.8 pg (27.0-31.0); MEAN CORPUSCULAR HGB CONC 33.2 g/dL (33.0-37.0); MEAN PLATELET VOLUME 9.3 fL (7.2-11.7); MONO # 1.1 K/uL (0.0-0.8); MONO % 5.7 % (0.0-10.0); NRBC % 0.1 % (0.0-2.0); RED CELL DISTRIBUTION WIDTH 19.2 % (11.5-14.5); WHITE BLOOD COUNT 18.5 K/uL (4.8-10.8)
[2016-10-28 18:41] LABS: PLATELET COUNT 118 K/uL (130-400)
[2016-10-28] MEDS: Meropenem 500 MG in Sodium Chloride 0.9% 100 ML IVPB SCH (19:29)
[2016-10-28 20:29] LABS: NEUTROPHIL 88 % (50-75); TOTAL CELLS COUNTED 100
--- NOTE | 2016-10-28 22:35 | CP.PCM.PN ---
Subjective - Date & Time of Evaluation Date of Evaluation: 10/28/16 Time of Evaluation: 18:40 - Subjective Subjective: Patient seen and evaluated Patient's condition remains critical GI bleeding Respiratory failure on Mechanical ventilation Objective - Vital Signs/Intake and Output Vital Signs (last 24 hours): Temp Pulse Resp BP Pulse Ox 97.4 F L 88 19 101/43 L 100 10/28/16 17:45 10/28/16 22:04 10/28/16 22:04 10/28/16 22:04 10/28/16 22:04 Intake and Output: 10/28/16 10/29/16 18:59 06:59 Intake Total 1703.0 327.0 Output Total 0 Balance 1703.0 327.0 - Medications Medications: Current Medications Epoetin Sly (Procrit) 10,000 unit IV MWF [facility] Last Admin: 10/28/16 14:48 Dose: 10,000 unit Norepinephrine Bitartrate 4 mg (/ Dextrose) 254 mls @ 7.62 mls/hr IV .Q24H PRN ; Protocol; 2 MCG/MIN PRN Reason: TITRATE PER MD ORDER Last Admin: 10/28/16 18:51 Dose: 5.9 mcg/min, 22.5 mls/hr Meropenem 500 mg/ Sodium (Chloride) 100 mls @ 100 mls/hr IVPB Q24H [facility] Last Admin: 10/28/16 19:29 Dose: 100 mls/hr Dextrose (Dextrose 5% In Water 1000 Ml) 1,000 mls @ 40 mls/hr IV .Q24H [facility] Last Admin: 10/27/16 22:44 Dose: 40 mls/hr Insulin Human Regular (Novolin R) 0 unit SC Q6 [facility] PRN Reason: Protocol Last Admin: 10/28/16 18:37 Dose: Not Given Levothyroxine Sodium (Synthroid) 200 mcg PO DAILY@0630 [facility] Last Admin: 10/28/16 06:53 Dose: Not Given Lorazepam (Ativan) 1 mg IVP Q4 PRN PRN Reason: Agitation Pantoprazole Sodium (Protonix Inj) 40 mg IVP DAILY [facility] Last Admin: 10/28/16 10:32 Dose: 40 mg Vancomycin HCl (Vancocin (Oral Or Rectal Use)) 125 mg PO Q6H [facility] Last Admin: 07/07/17 20:07 Dose: Not Given - Labs Labs: 10/28/16 18:38 10/28/16 07:06 PT 19.5 SECONDS (9.7-12.2) H 10/28/16 08:07 INR 1.7 10/28/16 08:07 APTT 49 SECONDS (21-34) H 10/25/16 16:33
[2016-10-29] MEDS: Vancomycin 125 MG/5 ML SOLN (ORAL/RECTAL) PO SCH ×4 (01:28→18:22)
[2016-10-29] MEDS: Levothyroxine 200 MCG TAB PO SCH (06:10)
[2016-10-29] MEDS: (Novolin R) Insulin Human Regular 100 units/ml vial SC SCH ×4 (06:59→17:27)
[2016-10-29 07:02] LABS: BASO # 0.1 K/uL (0.0-0.2); BASO % 0.7 % (0.0-2.0); EOS # 0.1 K/uL (0.0-0.7); EOS % 0.5 % (0.0-4.0); HEMATOCRIT 19.4 % (34.0-47.0); LYMPH # 0.9 K/uL (1.0-4.3); LYMPH % 4.2 % (20.0-40.0); MEAN CELL VOLUME 93.2 fL (81.0-99.0); MEAN CORPUSCULAR HEMOGLOBIN 30.9 pg (27.0-31.0); MEAN CORPUSCULAR HGB CONC 33.1 g/dL (33.0-37.0); MEAN PLATELET VOLUME 10.2 fL (7.2-11.7); MONO # 1.1 K/uL (0.0-0.8); MONO % 5.5 % (0.0-10.0); NRBC % 0.1 % (0.0-2.0); PLATELET COUNT 113 K/uL (130-400); RED CELL DISTRIBUTION WIDTH 19.4 % (11.5-14.5); WHITE BLOOD COUNT 20.6 K/uL (4.8-10.8)
[2016-10-29 07:12] LABS: POTASSIUM 3.6 mmol/L (3.6-5.2)
[2016-10-29 07:14] LABS: ALB/GLOB RATIO 0.5 (1.0-2.1); BILIRUBIN,TOTAL 7.9 mg/dL (0.2-1.3); CALCIUM 7.9 mg/dl (8.6-10.4)
--- NOTE | 2016-10-29 07:35 | CP.PCM.PN ---
Subjective - Date & Time of Evaluation Date of Evaluation: 10/29/16 Time of Evaluation: 06:25 - Subjective Subjective: General Surgery Dr. Lawrence Pt S&E @bedside. multiple bloody BMs overnight and this AM. pt trached, on mechanical ventilation. Objective - Vital Signs/Intake and Output Vital Signs (last 24 hours): Temp Pulse Resp BP Pulse Ox 97.4 F L 77 19 96/38 L 100 10/28/16 17:45 10/29/16 07:04 10/29/16 07:04 10/29/16 07:04 10/29/16 07:04 Intake and Output: 10/29/16 10/29/16 06:59 18:59 Intake Total 946.9 41.3 Balance 946.9 41.3 - Medications Medications: Current Medications Epoetin Sly (Procrit) 10,000 unit IV MWF [facility] Last Admin: 10/28/16 14:48 Dose: 10,000 unit Norepinephrine Bitartrate 4 mg (/ Dextrose) 254 mls @ 7.62 mls/hr IV .Q24H PRN ; Protocol; 2 MCG/MIN PRN Reason: TITRATE PER MD ORDER Last Admin: 10/28/16 18:51 Dose: 5.9 mcg/min, 22.5 mls/hr Meropenem 500 mg/ Sodium (Chloride) 100 mls @ 100 mls/hr IVPB Q24H [facility] Last Admin: 10/28/16 19:29 Dose: 100 mls/hr Dextrose (Dextrose 5% In Water 1000 Ml) 1,000 mls @ 40 mls/hr IV .Q24H [facility] Last Admin: 10/28/16 22:30 Dose: 40 mls/hr Insulin Human Regular (Novolin R) 0 unit SC Q6 [facility] PRN Reason: Protocol Last Admin: 10/29/16 06:59 Dose: 4 unit Levothyroxine Sodium (Synthroid) 200 mcg PO DAILY@0630 [facility] Last Admin: 10/29/16 06:10 Dose: 200 mcg Lorazepam (Ativan) 1 mg IVP Q4 PRN PRN Reason: Agitation Pantoprazole Sodium (Protonix Inj) 40 mg IVP DAILY [facility] Last Admin: 10/28/16 10:32 Dose: 40 mg Vancomycin HCl (Vancocin (Oral Or Rectal Use)) 125 mg PO Q6H [facility] Last Admin: 10/29/16 06:10 Dose: 125 mg - Labs Labs: 10/29/16 06:46 10/29/16 06:46 PT 19.5 SECONDS (9.7-12.2) H 10/28/16 08:07 INR 1.7 10/28/16 08:07 APTT 49 SECONDS (21-34) H 10/25/16 16:33 - Constitutional Appears: Non-toxic, No Acute Distress, Chronically Ill - Head Exam Head Exam: NORMAL INSPECTION - Eye Exam Eye Exam: Normal appearance - ENT Exam ENT Exam: Mucous Membranes Moist - Respiratory Exam Respiratory Exam: NORMAL BREATHING PATTERN. absent: Accessory Muscle Use, Respiratory Distress (ventilated) - Cardiovascular Exam Cardiovascular Exam: absent: Bradycardia, Tachycardia - GI/Abdominal Exam GI & Abdominal Exam: Soft. absent: Distended - Rectal Exam Rectal Exam: Bloody Stool - Extremities Exam Extremities Exam: Normal Inspection - Neurological Exam Neurological Exam: Alert, Awake - Skin Skin Exam: Dry, Normal Color, Warm Assessment and Plan - Assessment and Plan (Free Text) Assessment: 76 y/o F w/ ischemic colitis - Serial ab exams - FU GI recs - Cont conservative mgmt - no surgical intervention at this time due to poor prognosis - Will cont to monitor Pt discussed w/ Dr. Melinda Benson PGY2
[2016-10-29 08:50] LABS: NEUTROPHIL 84 % (50-75); TOTAL CELLS COUNTED 100
--- NOTE | 2016-10-29 09:38 | CP.PCM.PN ---
<ThomAngle - Last Filed: 10/29/16 09:35> Subjective - Date & Time of Evaluation Date of Evaluation: 10/29/16 Time of Evaluation: 09:35 - Subjective Subjective: Gastroenterology Fellow/PGY5 Progress Note Patient notes to have small amount of maroon rectal bleeding overnight. Levophed titrated to 4 mcg/kg/min. Tolerated tube feeds yesterday. A 12-point review of systems unable to be completed with nonverbal state. Objective - Vital Signs/Intake and Output Vital Signs (last 24 hours): Temp Pulse Resp BP Pulse Ox 97.4 F L 77 19 96/38 L 100 10/28/16 17:45 10/29/16 07:04 10/29/16 07:04 10/29/16 07:04 10/29/16 07:04 Intake and Output: 10/29/16 10/29/16 06:59 18:59 Intake Total 946.9 82.6 Balance 946.9 82.6 - Medications Medications: Current Medications Epoetin Sly (Procrit) 10,000 unit IV MWF [facility] Last Admin: 10/28/16 14:48 Dose: 10,000 unit Norepinephrine Bitartrate 4 mg (/ Dextrose) 254 mls @ 7.62 mls/hr IV .Q24H PRN ; Protocol; 2 MCG/MIN PRN Reason: TITRATE PER MD ORDER Last Admin: 10/28/16 18:51 Dose: 5.9 mcg/min, 22.5 mls/hr Meropenem 500 mg/ Sodium (Chloride) 100 mls @ 100 mls/hr IVPB Q24H [facility] Last Admin: 10/28/16 19:29 Dose: 100 mls/hr Dextrose (Dextrose 5% In Water 1000 Ml) 1,000 mls @ 40 mls/hr IV .Q24H [facility] Last Admin: 10/28/16 22:30 Dose: 40 mls/hr Insulin Human Regular (Novolin R) 0 unit SC Q6 [facility] PRN Reason: Protocol Last Admin: 10/29/16 06:59 Dose: 4 unit Levothyroxine Sodium (Synthroid) 200 mcg PO DAILY@0630 [facility] Last Admin: 10/29/16 06:10 Dose: 200 mcg Lorazepam (Ativan) 1 mg IVP Q4 PRN PRN Reason: Agitation Pantoprazole Sodium (Protonix Inj) 40 mg IVP DAILY [facility] Last Admin: 10/28/16 10:32 Dose: 40 mg Vancomycin HCl (Vancocin (Oral Or Rectal Use)) 125 mg PO Q6H [facility] Last Admin: 10/29/16 06:10 Dose: 125 mg - Labs Labs: 10/29/16 06:46 10/29/16 06:46 PT 19.5 SECONDS (9.7-12.2) H 10/28/16 08:07 INR 1.7 10/28/16 08:07 APTT 49 SECONDS (21-34) H 10/25/16 16:33 - Constitutional Appears: Non-toxic, No Acute Distress, Chronically Ill - Head Exam Head Exam: ATRAUMATIC, NORMOCEPHALIC - Eye Exam Eye Exam: EOMI, PERRL Pupil Exam: PERRL. absent: Miosis, Mydriatic - ENT Exam ENT Exam: Mucous Membranes Dry, Normal Oropharynx - Neck Exam Neck Exam: Normal Inspection Additional comments: trach with vent in place - Respiratory Exam Respiratory Exam: Decreased Breath Sounds. absent: Rales, Rhonchi, Wheezes - Cardiovascular Exam Cardiovascular Exam: RRR, +S1, +S2. absent: Gallop, Rubs - GI/Abdominal Exam GI & Abdominal Exam: Soft, Tenderness, Normal Bowel Sounds. absent: Distended, Firm, Guarding, Rigid, Organomegaly, Rebound Additional comments: diffuse tenderness to palpation - Rectal Exam Rectal Exam: Bloody Stool - Extremities Exam Extremities Exam: Normal Inspection. absent: Pedal Edema Additional comments: heel dried ulcers present - Neurological Exam Neurological Exam: Alert, Awake - Skin Skin Exam: Dry, Normal Color, Warm Assessment and Plan - Assessment and Plan (Free Text) Assessment: 76 year old female with history of tracheostomy for ventilator dependent respiratory failure, ESRD on HD, CAD s/p CABG, CHF, caloric protein malnutrition with NGT feeding, and ongoing treatment for an empyema, on oral vancomycin presenting with hematochezia. Active treatment of septic/hypovolemic shock 2/2 HCAP and GI bleed requiring multiple transfusions, CT A/P showing rectosigmoid colitis, and POD 1 (10/28) flexible sigmoidoscopy showing diffuse rectosigmoid ulcerated mucosa and bleeding vessel proximal to dentate line s/p bipolar cautery and epinephrine injection. Laboratory findings showing hyperbilirubinemia and elevated transaminases likely 2/2 cholestasis of sepsis and drug-induced with previous echinocandin use for empyema treatment with no obstructive pathology on imaging. Remote history of EGD and colonoscopy over 30 years ago. Plan: >acute on chronic anemia >receiving 2 U pRBC with HD today >close monitoring of H/H >transfuse as needed >NGT in place for enteral feedings >trend LFTs >critical clinical status >guarded prognosis >will continue to follow clinical course <Amol Woodall - Last Filed: 10/29/16 11:28> Objective - Vital Signs/Intake and Output Vital Signs (last 24 hours): Temp Pulse Resp BP Pulse Ox 97.2 F L 75 21 101/41 L 100 10/29/16 10:54 10/29/16 10:50 10/29/16 10:54 10/29/16 11:04 10/29/16 10:54 Intake and Output: 10/29/16 10/29/16 06:59 18:59 Intake Total 946.9 480.7 Balance 946.9 480.7 - Medications Medications: Current Medications Epoetin Sly (Procrit) 10,000 unit IV MWF [facility] Last Admin: 10/28/16 14:48 Dose: 10,000 unit Norepinephrine Bitartrate 4 mg (/ Dextrose) 254 mls @ 7.62 mls/hr IV .Q24H PRN ; Protocol; 2 MCG/MIN PRN Reason: TITRATE PER MD ORDER Last Admin: 10/28/16 18:51 Dose: 5.9 mcg/min, 22.5 mls/hr Meropenem 500 mg/ Sodium (Chloride) 100 mls @ 100 mls/hr IVPB Q24H [facility] Last Admin: 10/28/16 19:29 Dose: 100 mls/hr Vancomycin HCl 1 gm/ Sodium (Chloride) 250 mls @ 166.7 mls/hr IVPB STAT STA Stop: 10/29/16 12:14 Insulin Human Regular (Novolin R) 0 unit SC Q6 [facility] PRN Reason: Protocol Last Admin: 10/29/16 06:59 Dose: 4 unit Levothyroxine Sodium (Synthroid) 200 mcg PO DAILY@0630 [facility] Last Admin: 10/29/16 06:10 Dose: 200 mcg Lorazepam (Ativan) 1 mg IVP Q4 PRN PRN Reason: Agitation Pantoprazole Sodium (Protonix Inj) 40 mg IVP DAILY [facility] Last Admin: 10/29/16 09:35 Dose: 40 mg Vancomycin HCl (Vancocin (Oral Or Rectal Use)) 125 mg PO Q6H [facility] Last Admin: 10/29/16 06:10 Dose: 125 mg - Labs Labs: 10/29/16 06:46 10/29/16 06:46 PT 19.5 SECONDS (9.7-12.2) H 10/28/16 08:07 INR 1.7 10/28/16 08:07 APTT 49 SECONDS (21-34) H 10/25/16 16:33 Attending/Attestation - Attestation I have personally seen and examined this patient.: Yes I have fully participated in the care of the patient.: Yes I have reviewed all pertinent clinical information, including history, physical exam and plan: Yes Notes (Text): 10/29/16 11:21 76 year old female with ventilator dependent respiratory failure s/ tracheostomy , ESRD on HD, CAD s/p CABG, CHF, malnutrition, and empyema admitted with sepsis , also with rectal bleeding. 1. Rectal bleeding 2. Recto-sigmoid colitis 3. Jaundice Plan: -s/p sigmoidoscopy demonstrating severe rectal and recto-sigmoid ulceration with active diffuse oozing as well as one small visible vessel with active bleeding s/p epi/biopolar cautery -hgb down, agree with transfusion, monitor for ongoing bleeding and transfuse as needed -etiology of colitis is likely ischemic based on clinical situation -CT imaging reviewed, she has extensive calcifications of her mesenteric vasculature -she is chronically hypotensive and requiring dialysis in the setting of cardiovascular disease -the rectal ulceration may not heal considering her overall poor condition/ nutritional state -surgical consult appreciated, but unlikely to be able to intervene -treat supportively -continue tube feedings -cholestasis may be due to sepsis, congestive hepatopathy, drug induced -avoid hepatotoxic medications -overall, prognosis is poor
--- NOTE | 2016-10-29 10:02 | CP.PCM.PN ---
Subjective - Date & Time of Evaluation Date of Evaluation: 10/29/16 Time of Evaluation: 09:59 - Subjective Subjective: pt seen sleepy but arousable does not answer much questions Hb 6.4 today ROS- as per HPI, other than that negative 10 point ROS Objective - Vital Signs/Intake and Output Vital Signs (last 24 hours): Temp Pulse Resp BP Pulse Ox 97.5 F L 71 22 94/36 L 100 10/29/16 09:45 10/29/16 09:53 10/29/16 09:53 10/29/16 09:53 10/29/16 09:53 Intake and Output: 10/29/16 10/29/16 06:59 18:59 Intake Total 946.9 125.7 Balance 946.9 125.7 - Medications Medications: Current Medications Epoetin Sly (Procrit) 10,000 unit IV MWF [facility] Last Admin: 10/28/16 14:48 Dose: 10,000 unit Norepinephrine Bitartrate 4 mg (/ Dextrose) 254 mls @ 7.62 mls/hr IV .Q24H PRN ; Protocol; 2 MCG/MIN PRN Reason: TITRATE PER MD ORDER Last Admin: 10/28/16 18:51 Dose: 5.9 mcg/min, 22.5 mls/hr Meropenem 500 mg/ Sodium (Chloride) 100 mls @ 100 mls/hr IVPB Q24H [facility] Last Admin: 10/28/16 19:29 Dose: 100 mls/hr Dextrose (Dextrose 5% In Water 1000 Ml) 1,000 mls @ 40 mls/hr IV .Q24H [facility] Last Admin: 10/28/16 22:30 Dose: 40 mls/hr Insulin Human Regular (Novolin R) 0 unit SC Q6 [facility] PRN Reason: Protocol Last Admin: 10/29/16 06:59 Dose: 4 unit Levothyroxine Sodium (Synthroid) 200 mcg PO DAILY@0630 [facility] Last Admin: 10/29/16 06:10 Dose: 200 mcg Lorazepam (Ativan) 1 mg IVP Q4 PRN PRN Reason: Agitation Pantoprazole Sodium (Protonix Inj) 40 mg IVP DAILY [facility] Last Admin: 10/29/16 09:35 Dose: 40 mg Vancomycin HCl (Vancocin (Oral Or Rectal Use)) 125 mg PO Q6H [facility] Last Admin: 10/29/16 06:10 Dose: 125 mg - Labs Labs: 10/29/16 06:46 10/29/16 06:46 PT 19.5 SECONDS (9.7-12.2) H 10/28/16 08:07 INR 1.7 10/28/16 08:07 APTT 49 SECONDS (21-34) H 10/25/16 16:33 - Constitutional Appears: No Acute Distress, Chronically Ill - Head Exam Head Exam: ATRAUMATIC, NORMOCEPHALIC - Eye Exam Eye Exam: EOMI, PERRL - ENT Exam ENT Exam: Mucous Membranes Moist - Neck Exam Neck Exam: Full ROM - Respiratory Exam Respiratory Exam: Clear to Ausculation Bilateral. absent: Rhonchi, Wheezes Additional comments: decreased at bases - Cardiovascular Exam Cardiovascular Exam: REGULAR RHYTHM, +S1, +S2 - GI/Abdominal Exam GI & Abdominal Exam: Soft. absent: Tenderness - Extremities Exam Extremities Exam: absent: Pedal Edema - Neurological Exam Neurological Exam: Awake - Skin Skin Exam: Dry, Warm Assessment and Plan (1) Lower GI bleed Status: Acute (2) Diabetes mellitus Status: Acute (3) Anemia Status: Chronic (4) CHF (congestive heart failure) Status: Chronic (5) ESRD (end stage renal disease) on dialysis Status: Chronic - Assessment and Plan (Free Text) Plan: HD today transfuse 2 units PRBC ? ischemic colitis await surgery follow up and family decision
--- NOTE | 2016-10-29 10:26 | CP.CCUPN ---
CCU Subjective - Physician Review Events Since Last Encounter (Free Text): 10/29/16 12:46 The Patient was seen and examined at the bedside, Medical records reviewed, all clinical/lab/hemodynamic/radiographic data were reviewed and management issues were discussed and formulated, Events reviewed Patient with Rectal bleeding, CT A/P showing rectosigmoid colitis Underwent flexible sigmoidoscopy yesterday showing diffuse rectosigmoid ulcerated mucosa and bleeding vessel proximal to dentate line s/p bipolar cautery and epinephrine injection. HB drop to 6.4 this morning S/P 3U, will transfuse 2 more today with HD MRSA in blood, will give one gram IV Vanco with HD Evaluated by surgery, not a surgical candidate If continue bleeding, will consider IR consult for possible Embolization CCU Objective - Vital Signs / Intake & Output Vital Signs (Last 4 hours): Vital Signs Temp Pulse Pulse Resp BP BP Pulse Ox 10/29/16 10:00 97.5 F L 71 20 96/42 L 10/29/16 09:53 71 22 94/36 L 100 10/29/16 09:50 97.5 F L 70 20 94/46 L 100 10/29/16 09:45 97.5 F L 71 18 94/40 L 10/29/16 09:40 97.5 F L 70 20 94/40 L 10/29/16 09:38 71 17 94/40 L 100 10/29/16 09:30 73 23 100 10/29/16 09:23 73 21 98/37 L 100 10/29/16 09:08 71 20 90/36 L 100 10/29/16 09:04 70 20 88/35 L 100 10/29/16 09:00 71 15 100 10/29/16 08:30 73 20 100 10/29/16 08:04 75 13 94/35 L 100 10/29/16 08:00 74 18 100 10/29/16 07:30 73 15 100 10/29/16 07:29 74 18 96/37 L 100 10/29/16 07:04 77 19 96/38 L 100 10/29/16 07:00 76 18 100 10/29/16 06:30 73 17 100 Intake and Output (Last 8hrs): Intake & Output 10/28/16 10/29/16 10/29/16 22:59 06:59 14:59 Intake Total 911.0 619.9 125.7 Output Total 0 Balance 911.0 619.9 125.7 Intake: IV 254 Intake, IV Amount 492.0 404.9 35.7 Right Distal Port PICC 172.0 124.9 35.7 Right Proximal Port PICC 320 280 Tube Feeding 165 215 90 Blood Product 0 Red Blood Cells Cpd As1 0 Lr Unit [id number] Output: Urine 0 Urine, Voided 0 Other: # Bowel Movements 1 1 - Physical Exam Physical Exam Limitations: Positive for: Altered Mental Status Head: Positive for: Atraumatic Extroacular Muscles: Positive for: EOMI Mouth: Positive for: Dry Nose (Internal): Positive for: Other (NGT in place) Neck: Positive for: Other (trach in place) Respiratory/Chest: Positive for: Rhonchi. Negative for: Clear to Auscultation ( decreased in RLL), Respiratory Distress, Accessory Muscle Use Cardiovascular: Positive for: Regular Rate and Rhythm, Other (hypotension improved, systolic 100-110s). Negative for: Murmurs, Tachycardic Abdomen: Positive for: Distention. Negative for: Peritoneal Signs, Rebound, Guarding, Hernias Rectal: Positive for: Gross Blood Lower Extremity: Positive for: Edema Skin: Positive for: Other (jaundice) Psychiatric: Negative for: Alert - Medications Active Medications: Active Medications Generic Name Dose Route Start Last Admin Trade Name Freq PRN Reason Stop Dose Admin Epoetin Sly 10,000 unit 10/26/16 15:30 10/28/16 14:48 Procrit IV 10,000 unit MWF [facility] Administration Norepinephrine Bitartrate 4 mg 254 mls @ 7.62 mls/hr 10/25/16 15:48 10/28/16 18:51 / Dextrose IV 5.9 mcg/min .Q24H PRN 22.5 mls/hr TITRATE PER MD ORDER Administration Protocol 2 MCG/MIN Meropenem 500 mg/ Sodium 100 mls @ 100 mls/hr 10/25/16 19:00 10/28/16 19:29 Chloride IVPB 100 mls/hr Q24H [facility] Administration Dextrose 1,000 mls @ 40 mls/hr 10/27/16 22:30 10/28/16 22:30 Dextrose 5% In Water 1000 Ml IV 40 mls/hr .Q24H [facility] Administration Insulin Human Regular 0 unit 10/26/16 06:00 10/29/16 06:59 Novolin R SC 4 unit Q6 [facility] Administration Protocol Levothyroxine Sodium 200 mcg 10/26/16 06:30 10/29/16 06:10 Synthroid PO 200 mcg DAILY@0630 [facility] Administration Lorazepam 1 mg 10/26/16 00:01 Ativan IVP Q4 PRN Agitation Pantoprazole Sodium 40 mg 10/26/16 11:30 10/29/16 09:35 Protonix Inj IVP 40 mg DAILY [facility] Administration Vancomycin HCl 125 mg 10/25/16 19:00 10/29/16 06:10 Vancocin (Oral Or Rectal Use) PO 125 mg Q6H [facility] Administration - Patient Studies Lab Studies: Microbiology Studies 10/25/16 17:00 Blood Culture - Preliminary Blood-Venous NO GROWTH AFTER 3 DAYS Lab Studies 10/29/16 10/29/16 10/29/16 Range/Units 06:46 06:46 06:15 WBC 20.6 H (4.8-10.8) K/uL RBC 2.08 L (3.80-5.20) Mil/uL Hgb 6.4 L* (11.0-16.0) g/dL Hct 19.4 L (34.0-47.0) % MCV 93.2 (81.0-99.0) fL MCH 30.9 (27.0-31.0) pg MCHC 33.1 (33.0-37.0) g/dL RDW 19.4 H (11.5-14.5) % Plt Count 113 L (130-400) K/uL MPV 10.2 (7.2-11.7) fL Neut % (Auto) 89.1 H (50.0-75.0) % Lymph % (Auto) 4.2 L (20.0-40.0) % [place] % (Auto) 5.5 (0.0-10.0) % Eos % (Auto) 0.5 (0.0-4.0) % Baso % (Auto) 0.7 (0.0-2.0) % Neut # 18.4 H (1.8-7.0) K/uL Lymph # 0.9 L (1.0-4.3) K/uL [place] # 1.1 H (0.0-0.8) K/uL Eos # 0.1 (0.0-0.7) K/uL Baso # 0.1 (0.0-0.2) K/uL Neutrophils % (Manual) 84 H (50-75) % Band Neutrophils % 6 H (0-2) % Lymphocytes % (Manual) 4 L (20-40) % Monocytes % (Manual) 6 (0-10) % Differential Comment Platelet Estimate Slightly decreased L (NORMAL) Hypochromasia (manual) Slight Anisocytosis (manual) Slight Macrocytosis (manual) Slight Target Cells Slight Ovalocytes Slight Melia Cells Slight Sodium 129 L (132-148) mmol/L Potassium 3.6 (3.6-5.2) mmol/L Chloride 95 L (98-107) mmol/L Carbon Dioxide 27 (22-30) mmol/L Anion Gap 11 (10-20) BUN 16 (7-17) mg/dL Creatinine 1.1 (0.7-1.2) MG/DL Est GFR ( Amer) 59 Est GFR (Non-Af Amer) 49 POC Glucose (mg/dL) 344 H (65-110) mg/dL Random Glucose 228 H (65-105) mg/dL Calcium 7.9 L (8.6-10.4) mg/dl Total Bilirubin 7.9 H (0.2-1.3) mg/dL AST 41 H (14-36) U/L ALT 20 (9-52) U/L Alkaline Phosphatase 136 H (38-126) U/L Total Protein 6.0 L (6.3-8.3) g/dL Albumin 2.1 L (3.5-5.0) g/dL Globulin 3.9 (2.2-3.9) gm/dL Albumin/Globulin Ratio 0.5 L (1.0-2.1) CHANA 6 Profile (NEGATIVE) Anti-Mitochondrial Ab (Negative) C. difficile Ag & Toxin (NEGATIVE) Blood Type Antibody Screen 10/29/16 10/28/16 10/28/16 Range/Units 00:18 18:38 17:32 WBC 18.5 H (4.8-10.8) K/uL RBC 2.46 L (3.80-5.20) Mil/uL Hgb 7.6 L (11.0-16.0) g/dL Hct 22.8 L (34.0-47.0) % MCV 92.6 (81.0-99.0) fL MCH 30.8 (27.0-31.0) pg MCHC 33.2 (33.0-37.0) g/dL RDW 19.2 H (11.5-14.5) % Plt Count 118 L D (130-400) K/uL MPV 9.3 (7.2-11.7) fL Neut % (Auto) 87.5 H (50.0-75.0) % Lymph % (Auto) 6.1 L (20.0-40.0) % [place] % (Auto) 5.7 (0.0-10.0) % Eos % (Auto) 0.4 (0.0-4.0) % Baso % (Auto) 0.3 (0.0-2.0) % Neut # 16.2 H (1.8-7.0) K/uL Lymph # 1.1 (1.0-4.3) K/uL [place] # 1.1 H (0.0-0.8) K/uL Eos # 0.1 (0.0-0.7) K/uL Baso # 0.0 (0.0-0.2) K/uL Neutrophils % (Manual) 88 H (50-75) % Band Neutrophils % 1 (0-2) % Lymphocytes % (Manual) 6 L (20-40) % Monocytes % (Manual) 5 (0-10) % Differential Comment Platelet Estimate Slightly decreased L (NORMAL) Hypochromasia (manual) Anisocytosis (manual) Slight Macrocytosis (manual) Slight Target Cells Ovalocytes [place] Cells Sodium (132-148) mmol/L Potassium (3.6-5.2) mmol/L Chloride (98-107) mmol/L Carbon Dioxide (22-30) mmol/L Anion Gap (10-20) BUN (7-17) mg/dL Creatinine (0.7-1.2) MG/DL Est GFR ( Amer) Est GFR (Non-Af Amer) POC Glucose (mg/dL) 216 H 123 H (65-110) mg/dL Random Glucose (65-105) mg/dL Calcium (8.6-10.4) mg/dl Total Bilirubin (0.2-1.3) mg/dL AST (14-36) U/L ALT (9-52) U/L Alkaline Phosphatase (38-126) U/L Total Protein (6.3-8.3) g/dL Albumin (3.5-5.0) g/dL Globulin (2.2-3.9) gm/dL Albumin/Globulin Ratio (1.0-2.1) CHANA 6 Profile (NEGATIVE) Anti-Mitochondrial Ab (Negative) C. difficile Ag & Toxin (NEGATIVE) Blood Type Antibody Screen 10/28/16 10/28/16 10/27/16 Range/Units 15:00 12:00 15:11 WBC (4.8-10.8) K/uL RBC (3.80-5.20) Mil/uL Hgb (11.0-16.0) g/dL Hct (34.0-47.0) % MCV (81.0-99.0) fL MCH (27.0-31.0) pg MCHC (33.0-37.0) g/dL RDW (11.5-14.5) % Plt Count (130-400) K/uL MPV (7.2-11.7) fL Neut % (Auto) (50.0-75.0) % Lymph % (Auto) (20.0-40.0) % [place] % (Auto) (0.0-10.0) % Eos % (Auto) (0.0-4.0) % Baso % (Auto) (0.0-2.0) % Neut # (1.8-7.0) K/uL Lymph # (1.0-4.3) K/uL [place] # (0.0-0.8) K/uL Eos # (0.0-0.7) K/uL Baso # (0.0-0.2) K/uL Neutrophils % (Manual) (50-75) % Band Neutrophils % (0-2) % Lymphocytes % (Manual) (20-40) % Monocytes % (Manual) (0-10) % Differential Comment Platelet Estimate (NORMAL) Hypochromasia (manual) Anisocytosis (manual) Macrocytosis (manual) Target Cells Ovalocytes Melia Cells Sodium (132-148) mmol/L Potassium (3.6-5.2) mmol/L Chloride (98-107) mmol/L Carbon Dioxide (22-30) mmol/L Anion Gap (10-20) BUN (7-17) mg/dL Creatinine (0.7-1.2) MG/DL Est GFR ( Amer) Est GFR (Non-Af Amer) POC Glucose (mg/dL) 290 H (65-110) mg/dL Random Glucose (65-105) mg/dL Calcium (8.6-10.4) mg/dl Total Bilirubin (0.2-1.3) mg/dL AST (14-36) U/L ALT (9-52) U/L Alkaline Phosphatase (38-126) U/L Total Protein (6.3-8.3) g/dL Albumin (3.5-5.0) g/dL Globulin (2.2-3.9) gm/dL Albumin/Globulin Ratio (1.0-2.1) CHANA 6 Profile (NEGATIVE) Anti-Mitochondrial Ab (Negative) C. difficile Ag & Toxin Negative (NEGATIVE) Blood Type B POSITIVE Antibody Screen Negative 10/26/16 10/26/16 Range/Units 15:32 15:32 WBC (4.8-10.8) K/uL RBC (3.80-5.20) Mil/uL Hgb (11.0-16.0) g/dL Hct (34.0-47.0) % MCV (81.0-99.0) fL MCH (27.0-31.0) pg MCHC (33.0-37.0) g/dL RDW (11.5-14.5) % Plt Count (130-400) K/uL MPV (7.2-11.7) fL Neut % (Auto) (50.0-75.0) % Lymph % (Auto) (20.0-40.0) % [place] % (Auto) (0.0-10.0) % Eos % (Auto) (0.0-4.0) % Baso % (Auto) (0.0-2.0) % Neut # (1.8-7.0) K/uL Lymph # (1.0-4.3) K/uL [place] # (0.0-0.8) K/uL Eos # (0.0-0.7) K/uL Baso # (0.0-0.2) K/uL Neutrophils % (Manual) (50-75) % Band Neutrophils % (0-2) % Lymphocytes % (Manual) (20-40) % Monocytes % (Manual) (0-10) % Differential Comment Platelet Estimate (NORMAL) Hypochromasia (manual) Anisocytosis (manual) Macrocytosis (manual) Target Cells Ovalocytes Melia Cells Sodium (132-148) mmol/L Potassium (3.6-5.2) mmol/L Chloride (98-107) mmol/L Carbon Dioxide (22-30) mmol/L Anion Gap (10-20) BUN (7-17) mg/dL Creatinine (0.7-1.2) MG/DL Est GFR ( Amer) Est GFR (Non-Af Amer) POC Glucose (mg/dL) (65-110) mg/dL Random Glucose (65-105) mg/dL Calcium (8.6-10.4) mg/dl Total Bilirubin (0.2-1.3) mg/dL AST (14-36) U/L ALT (9-52) U/L Alkaline Phosphatase (38-126) U/L Total Protein (6.3-8.3) g/dL Albumin (3.5-5.0) g/dL Globulin (2.2-3.9) gm/dL Albumin/Globulin Ratio (1.0-2.1) CHANA 6 Profile Negative (NEGATIVE) Anti-Mitochondrial Ab Negative (Negative) C. difficile Ag & Toxin (NEGATIVE) Blood Type Antibody Screen Laboratory Results - last 24 hr 10/26/16 10/26/16 10/27/16 15:32 15:32 15:11 WBC RBC Hgb Hct MCV MCH MCHC RDW Plt Count MPV Neut % (Auto) Lymph % (Auto) [place] % (Auto) Eos % (Auto) Baso % (Auto) Neut # Lymph # [place] # Eos # Baso # Neutrophils % (Manual) Band Neutrophils % Lymphocytes % (Manual) Monocytes % (Manual) Differential Comment Platelet Estimate Hypochromasia (manual) Anisocytosis (manual) Macrocytosis (manual) Target Cells Ovalocytes Melia Cells Sodium Potassium Chloride Carbon Dioxide Anion Gap BUN Creatinine Est GFR ( Amer) Est GFR (Non-Af Amer) POC Glucose (mg/dL) Random Glucose Calcium Total Bilirubin AST ALT Alkaline Phosphatase Total Protein Albumin Globulin Albumin/Globulin Ratio CHANA 6 Profile Negative Anti-Mitochondrial Ab Negative C. difficile Ag & Toxin Blood Type B POSITIVE Antibody Screen Negative 10/28/16 10/28/16 10/28/16 12:00 15:00 17:32 WBC RBC Hgb Hct MCV MCH MCHC RDW Plt Count MPV Neut % (Auto) Lymph % (Auto) [place] % (Auto) Eos % (Auto) Baso % (Auto) Neut # Lymph # [place] # Eos # Baso # Neutrophils % (Manual) Band Neutrophils % Lymphocytes % (Manual) Monocytes % (Manual) Differential Comment Platelet Estimate Hypochromasia (manual) Anisocytosis (manual) Macrocytosis (manual) Target Cells Ovalocytes [place] Cells Sodium Potassium Chloride Carbon Dioxide Anion Gap BUN Creatinine Est GFR ( Amer) Est GFR (Non-Af Amer) POC Glucose (mg/dL) 290 H 123 H Random Glucose Calcium Total Bilirubin AST ALT Alkaline Phosphatase Total Protein Albumin Globulin Albumin/Globulin Ratio CHANA 6 Profile Anti-Mitochondrial Ab C. difficile Ag & Toxin Negative Blood Type Antibody Screen 10/28/16 10/29/16 10/29/16 18:38 00:18 06:15 WBC 18.5 H RBC 2.46 L Hgb 7.6 L Hct 22.8 L MCV 92.6 MCH 30.8 MCHC 33.2 RDW 19.2 H Plt Count 118 L D MPV 9.3 Neut % (Auto) 87.5 H Lymph % (Auto) 6.1 L [place] % (Auto) 5.7 Eos % (Auto) 0.4 Baso % (Auto) 0.3 Neut # 16.2 H Lymph # 1.1 [place] # 1.1 H Eos # 0.1 Baso # 0.0 Neutrophils % (Manual) 88 H Band Neutrophils % 1 Lymphocytes % (Manual) 6 L Monocytes % (Manual) 5 Differential Comment Platelet Estimate Slightly decreased L Hypochromasia (manual) Anisocytosis (manual) Slight Macrocytosis (manual) Slight Target Cells Ovalocytes Melia Cells Sodium Potassium Chloride Carbon Dioxide Anion Gap BUN Creatinine Est GFR ( Amer) Est GFR (Non-Af Amer) POC Glucose (mg/dL) 216 H 344 H Random Glucose Calcium Total Bilirubin AST ALT Alkaline Phosphatase Total Protein Albumin Globulin Albumin/Globulin Ratio CHANA 6 Profile Anti-Mitochondrial Ab C. difficile Ag & Toxin Blood Type Antibody Screen 10/29/16 10/29/16 06:46 06:46 WBC 20.6 H RBC 2.08 L Hgb 6.4 L* Hct 19.4 L MCV 93.2 MCH 30.9 MCHC 33.1 RDW 19.4 H Plt Count 113 L MPV 10.2 Neut % (Auto) 89.1 H Lymph % (Auto) 4.2 L [place] % (Auto) 5.5 Eos % (Auto) 0.5 Baso % (Auto) 0.7 Neut # 18.4 H Lymph # 0.9 L [place] # 1.1 H Eos # 0.1 Baso # 0.1 Neutrophils % (Manual) 84 H Band Neutrophils % 6 H Lymphocytes % (Manual) 4 L Monocytes % (Manual) 6 Differential Comment Platelet Estimate Slightly decreased L Hypochromasia (manual) Slight Anisocytosis (manual) Slight Macrocytosis (manual) Slight Target Cells Slight Ovalocytes Slight Melia Cells Slight Sodium 129 L Potassium 3.6 Chloride 95 L Carbon Dioxide 27 Anion Gap 11 BUN 16 Creatinine 1.1 Est GFR ( Amer) 59 Est GFR (Non-Af Amer) 49 POC Glucose (mg/dL) Random Glucose 228 H Calcium 7.9 L Total Bilirubin 7.9 H AST 41 H ALT 20 Alkaline Phosphatase 136 H Total Protein 6.0 L Albumin 2.1 L Globulin 3.9 Albumin/Globulin Ratio 0.5 L CHANA 6 Profile Anti-Mitochondrial Ab C. difficile Ag & Toxin Blood Type Antibody Screen Fingerstick Blood Sugar Results: 344 Critical Care Progress Note - Nutrition Nutrition: Nutrition Category Date Time Status Liquid Diet [DIET] Diets 10/28/16 Lunch Active Assessment/Plan (1) Lower GI bleed Current Visit: Yes Status: Acute (2) Sepsis Current Visit: Yes Status: Acute (3) Acute post-hemorrhagic anemia Current Visit: Yes Status: Acute (4) Hypertension Current Visit: No Status: Acute (5) Prophylactic measure Current Visit: No Status: Acute (6) ESRD (end stage renal disease) on dialysis Current Visit: No Status: Chronic
[2016-10-29] MEDS: Meropenem 500 MG in Sodium Chloride 0.9% 100 ML IVPB SCH (18:23)
[2016-10-29 18:42] LABS: HEMATOCRIT 29.7 % (34.0-47.0); MEAN CELL VOLUME 91.8 fL (81.0-99.0); MEAN CORPUSCULAR HEMOGLOBIN 30.3 pg (27.0-31.0); RED CELL DISTRIBUTION WIDTH 16.9 % (11.5-14.5); WHITE BLOOD COUNT 19.2 K/uL (4.8-10.8)
--- NOTE | 2016-10-29 21:10 | CP.PCM.PN ---
Subjective - Date & Time of Evaluation Date of Evaluation: 10/28/16 Time of Evaluation: 21:10 - Subjective Subjective: Shunt today underwent sigmoidoscopy. Scope reveals evidence of ischemic colitis, multiple ulcers, and associated bleeding. The patient is awake and responding. On ventilator. He received dialysis. Patient also received a blood transfusion. But still having active bleeding rectally. Overall prognosis is poor. Vital signs reviewed, hypertension, on norepinephrine drip No neck vein distention noted Decreased air entry bilaterally CVS regular heart sound, no murmur noted Mild abdominal distention Bilateral edema Patient awake and responding. Communicating. Following simple comments Labs reviewed X-ray reviewed Assessment and recommendation: Assessment and recommendation: 76-year-old female with history of multiple medical problems, CAD, bypass grafting in the past, respirated failure the tracheostomy. Pneumonia. Pleural effusion. History of empyema. Recurrent sepsis. ESRD and hemodialysis. Liver cirrhosis, ascites. Currently having active GI bleeding. Will give vitamin K, DDAVP, one unit of FFP now. We'll monitor the patient. Spoke to the patient family Objective - Vital Signs/Intake and Output Vital Signs (last 24 hours): Temp Pulse Resp BP Pulse Ox 97.6 F 82 21 105/46 L 100 10/29/16 12:00 10/29/16 19:30 10/29/16 19:30 10/29/16 19:13 10/29/16 19:30 Intake and Output: 10/29/16 10/30/16 18:59 06:59 Intake Total 2265.2 55.5 Balance 2265.2 55.5 - Medications Medications: Current Medications Epoetin Sly (Procrit) 10,000 unit IV F [facility]END[facility] TO [facility] Last Admin: 10/28/16 14:48 Dose: 10,000 unit Norepinephrine Bitartrate 4 mg (/ Dextrose) 254 mls @ 7.62 mls/hr IV .Q24H PRN ; Protocol; 2 MCG/MIN PRN Reason: TITRATE PER MD ORDER Last Admin: 10/28/16 18:51 Dose: 5.9 mcg/min, 22.5 mls/hr Meropenem 500 mg/ Sodium (Chloride) 100 mls @ 100 mls/hr IVPB Q24H [facility] Last Admin: 10/29/16 18:23 Dose: 100 mls/hr Insulin Human Regular (Novolin R) 0 unit SC Q6 [facility] PRN Reason: Protocol Last Admin: 10/29/16 17:27 Dose: Not Given Levothyroxine Sodium (Synthroid) 200 mcg PO DAILY@0630 [facility] Last Admin: 10/29/16 06:10 Dose: 200 mcg Lorazepam (Ativan) 1 mg IVP Q4 PRN PRN Reason: Agitation Pantoprazole Sodium (Protonix Inj) 40 mg IVP DAILY [facility] Last Admin: 10/29/16 09:35 Dose: 40 mg Vancomycin HCl (Vancocin (Oral Or Rectal Use)) 125 mg PO Q6H [facility] Last Admin: 10/29/16 18:22 Dose: 125 mg - Labs Labs: 10/29/16 18:37 10/29/16 06:46 PT 19.5 SECONDS (9.7-12.2) H 10/28/16 08:07 INR 1.7 10/28/16 08:07 APTT 49 SECONDS (21-34) H 10/25/16 16:33
--- NOTE | 2016-10-29 21:13 | CP.PCM.PN ---
Subjective - Date & Time of Evaluation Date of Evaluation: 10/29/16 Time of Evaluation: 21:12 - Subjective Subjective: Scope reveals evidence of ischemic colitis, multiple ulcers, and associated bleeding. The patient is awake and responding. On ventilator. received dialysis. Patient also received a blood transfusion. But still having active bleeding rectally. Overall prognosis is poor. Vital signs reviewed, hypertension, on norepinephrine drip No neck vein distention noted Decreased air entry bilaterally CVS regular heart sound, no murmur noted Mild abdominal distention Bilateral edema Patient awake and responding. Communicating. Following simple comments Labs reviewed X-ray reviewed Assessment and recommendation: 76-year-old female with history of multiple medical problems, CAD, bypass grafting in the past, respirated failure the tracheostomy. Pneumonia. Pleural effusion. History of empyema. Recurrent sepsis. ESRD and hemodialysis. Liver cirrhosis, ascites. Currently having active GI bleeding. Prognosis very poor. Continue the supportive care. Respiratory the family regarding the further management. Surgical approach is more futile currently. Overall prognosis very poor Objective - Vital Signs/Intake and Output Vital Signs (last 24 hours): Temp Pulse Resp BP Pulse Ox 97.6 F 82 21 105/46 L 100 10/29/16 12:00 10/29/16 19:30 10/29/16 19:30 10/29/16 19:13 10/29/16 19:30 Intake and Output: 10/29/16 10/30/16 18:59 06:59 Intake Total 2265.2 55.5 Balance 2265.2 55.5 - Medications Medications: Current Medications Epoetin Sly (Procrit) 10,000 unit IV MWF [facility] Last Admin: 10/28/16 14:48 Dose: 10,000 unit Norepinephrine Bitartrate 4 mg (/ Dextrose) 254 mls @ 7.62 mls/hr IV .Q24H PRN ; Protocol; 2 MCG/MIN PRN Reason: TITRATE PER MD ORDER Last Admin: 10/28/16 18:51 Dose: 5.9 mcg/min, 22.5 mls/hr Meropenem 500 mg/ Sodium (Chloride) 100 mls @ 100 mls/hr IVPB Q24H [facility] Last Admin: 10/29/16 18:23 Dose: 100 mls/hr Insulin Human Regular (Novolin R) 0 unit SC Q6 [facility] PRN Reason: Protocol Last Admin: 10/29/16 17:27 Dose: Not Given Levothyroxine Sodium (Synthroid) 200 mcg PO DAILY@0630 [facility] Last Admin: 10/29/16 06:10 Dose: 200 mcg Lorazepam (Ativan) 1 mg IVP Q4 PRN PRN Reason: Agitation Pantoprazole Sodium (Protonix Inj) 40 mg IVP DAILY [facility] Last Admin: 10/29/16 09:35 Dose: 40 mg Vancomycin HCl (Vancocin (Oral Or Rectal Use)) 125 mg PO Q6H [facility] Last Admin: 10/29/16 18:22 Dose: 125 mg - Labs Labs: 10/29/16 18:37 10/29/16 06:46 PT 19.5 SECONDS (9.7-12.2) H 10/28/16 08:07 INR 1.7 10/28/16 08:07 APTT 49 SECONDS (21-34) H 10/25/16 16:33
[2016-10-30 00:27] LABS: LKM-1 Ab (IgG) <=20.0 U (<=20.0)
[2016-10-30] MEDS: Vancomycin 125 MG/5 ML SOLN (ORAL/RECTAL) PO SCH ×4 (01:05→18:28)
[2016-10-30] MEDS: Levothyroxine 200 MCG TAB PO SCH (05:31)
[2016-10-30] MEDS: (Novolin R) Insulin Human Regular 100 units/ml vial SC SCH ×4 (06:02→18:28)
[2016-10-30 06:31] LABS: BASO # 0.1 K/uL (0.0-0.2); BASO % 0.5 % (0.0-2.0); EOS # 0.1 K/uL (0.0-0.7); EOS % 0.5 % (0.0-4.0); HEMATOCRIT 27.6 % (34.0-47.0); LYMPH # 1.3 K/uL (1.0-4.3); LYMPH % 7.7 % (20.0-40.0); MEAN CELL VOLUME 92.1 fL (81.0-99.0); MEAN CORPUSCULAR HEMOGLOBIN 30.7 pg (27.0-31.0); MEAN CORPUSCULAR HGB CONC 33.3 g/dL (33.0-37.0); MEAN PLATELET VOLUME 10.1 fL (7.2-11.7); MONO % 6.3 % (0.0-10.0); NRBC % 0.1 % (0.0-2.0); PLATELET COUNT 127 K/uL (130-400); RED CELL DISTRIBUTION WIDTH 16.6 % (11.5-14.5); WHITE BLOOD COUNT 16.4 K/uL (4.8-10.8)
[2016-10-30 06:36] LABS: CHLORIDE 95 mmol/L (98-107); SODIUM 129 mmol/L (132-148)
[2016-10-30 06:37] LABS: POTASSIUM 3.6 mmol/L (3.6-5.2)
[2016-10-30 06:39] LABS: ALB/GLOB RATIO 0.5 (1.0-2.1); ALKALINE PHOSPHATASE 198 U/L (38-126); ALT/SGPT 21 U/L (9-52); AST/SGOT 49 U/L (14-36); BLOOD UREA NITROGEN 15 mg/dL (7-17); CARBON DIOXIDE 28 mmol/L (22-30); GFR AFRICAN-AMERICAN > 60; GLUCOSE,RANDOM 211 mg/dL (65-105); TOTAL PROTEIN 6.2 g/dL (6.3-8.3)
[2016-10-30 06:40] LABS: CALCIUM 7.9 mg/dl (8.6-10.4)
[2016-10-30 08:07] LABS: NEUTROPHIL 87 % (50-75); TOTAL CELLS COUNTED 100
--- NOTE | 2016-10-30 09:55 | CP.PCM.PN ---
<Angle Tomas - Last Filed: 10/30/16 09:52> Subjective - Date & Time of Evaluation Date of Evaluation: 10/30/16 Time of Evaluation: 09:52 - Subjective Subjective: Gastroenterology Fellow/PGY5 Progress Note Patient noted to have three episodes of liquid maroon/brown rectal bleeding overnight. Levophed titrated to 2 mcg/kg/min. Tolerated tube feeds yesterday. Nursing placed Flexiseal this morning due to skin breakdown and frequent rectal bleeding. A 12-point review of systems unable to be completed with nonverbal state. Objective - Vital Signs/Intake and Output Vital Signs (last 24 hours): Temp Pulse Resp BP Pulse Ox 97.6 F 77 14 110/47 L 100 10/29/16 12:00 10/30/16 09:13 10/30/16 09:13 10/30/16 09:13 10/30/16 09:13 Intake and Output: 10/30/16 10/30/16 06:59 18:59 Intake Total 1098.87 127.8 Balance 1098.87 127.8 - Medications Medications: Current Medications Epoetin Sly (Procrit) 10,000 unit IV MWF [facility] Last Admin: 10/28/16 14:48 Dose: 10,000 unit Norepinephrine Bitartrate 4 mg (/ Dextrose) 254 mls @ 7.62 mls/hr IV .Q24H PRN ; Protocol; 2 MCG/MIN PRN Reason: TITRATE PER MD ORDER Last Titration: 10/30/16 05:00 Dose: 2 mcg/min, 7.62 mls/hr Meropenem 500 mg/ Sodium (Chloride) 100 mls @ 100 mls/hr IVPB Q24H [facility] Last Admin: 10/29/16 18:23 Dose: 100 mls/hr Insulin Human Regular (Novolin R) 0 unit SC Q6 [facility] PRN Reason: Protocol Last Admin: 10/30/16 06:02 Dose: Not Given Levothyroxine Sodium (Synthroid) 200 mcg PO DAILY@0630 [facility] Last Admin: 10/30/16 05:31 Dose: 200 mcg Lorazepam (Ativan) 1 mg IVP Q4 PRN PRN Reason: Agitation Pantoprazole Sodium (Protonix Inj) 40 mg IVP DAILY [facility] Last Admin: 10/29/16 09:35 Dose: 40 mg Vancomycin HCl (Vancocin (Oral Or Rectal Use)) 125 mg PO Q6H [facility] Last Admin: 10/30/16 06:01 Dose: 125 mg - Labs Labs: 10/30/16 06:15 10/30/16 06:15 PT 19.5 SECONDS (9.7-12.2) H 10/28/16 08:07 INR 1.7 10/28/16 08:07 APTT 49 SECONDS (21-34) H 10/25/16 16:33 - Constitutional Appears: No Acute Distress, Chronically Ill - Head Exam Head Exam: ATRAUMATIC, NORMOCEPHALIC - Eye Exam Eye Exam: EOMI, PERRL, Scleral icterus Pupil Exam: PERRL. absent: Miosis, Mydriatic - ENT Exam ENT Exam: Mucous Membranes Moist, Normal Oropharynx - Neck Exam Neck Exam: Normal Inspection. absent: Tenderness Additional comments: trach with vent in place - Respiratory Exam Respiratory Exam: Decreased Breath Sounds, Rhonchi. absent: Rales, Wheezes - Cardiovascular Exam Cardiovascular Exam: RRR, +S1, +S2. absent: Gallop, Rubs - GI/Abdominal Exam GI & Abdominal Exam: Soft, Normal Bowel Sounds. absent: Distended, Firm, Guarding, Rigid, Tenderness, Organomegaly, Rebound - Rectal Exam Additional comments: dark maroon stool present - Extremities Exam Extremities Exam: Normal Inspection. absent: Pedal Edema - Neurological Exam Neurological Exam: Alert, Awake - Psychiatric Exam Additional comments: unable to assess- nonverbal state - Skin Skin Exam: Dry, Normal Color, Warm Additional comments: sacral and heal pressure ulcers Assessment and Plan - Assessment and Plan (Free Text) Assessment: 76 year old female with history of tracheostomy for ventilator dependent respiratory failure, ESRD on HD, CAD s/p CABG, CHF, caloric protein malnutrition with NGT feeding, and ongoing treatment for an empyema, on oral vancomycin presenting with hematochezia. Active treatment of septic/hypovolemic shock 2/2 HCAP and GI bleed requiring multiple transfusions, CT A/P showing rectosigmoid colitis, and POD2 (10/28) flexible sigmoidoscopy showing diffuse rectosigmoid ulcerated mucosa and bleeding vessel proximal to dentate line s/p bipolar cautery and epinephrine injection. Laboratory findings showing hyperbilirubinemia and elevated transaminases likely 2/2 cholestasis of sepsis, congestive hepatopathy, and drug-induced with previous echinocandin use for empyema treatment with no obstructive pathology on imaging. Remote history of EGD and colonoscopy over 30 years ago. Plan: >acute on chronic anemia >7/8 received 2 U pRBC with HD 10/29 >close monitoring of H/H >transfuse as needed >Flexiseal placed for skin breakdown- risk of worsened GI bleed versus temponade effect from balloon >close monitoring of blood loss >NGT for enteral feedings >surgery following- appreciate recommendations >trend LFTs >critical clinical status >guarded prognosis >will follow clinical course <Amol Woodall - Last Filed: 10/30/16 10:42> Objective - Vital Signs/Intake and Output Vital Signs (last 24 hours): Temp Pulse Resp BP Pulse Ox 97.6 F 77 14 110/47 L 100 10/29/16 12:00 10/30/16 09:13 10/30/16 09:13 10/30/16 09:13 10/30/16 09:13 Intake and Output: 10/30/16 10/30/16 06:59 18:59 Intake Total 1098.87 127.8 Balance 1098.87 127.8 - Medications Medications: Current Medications Epoetin Sly (Procrit) 10,000 unit IV MWF [facility] Last Admin: 10/28/16 14:48 Dose: 10,000 unit Norepinephrine Bitartrate 4 mg (/ Dextrose) 254 mls @ 7.62 mls/hr IV .Q24H PRN ; Protocol; 2 MCG/MIN PRN Reason: TITRATE PER MD ORDER Last Titration: 10/30/16 05:00 Dose: 2 mcg/min, 7.62 mls/hr Meropenem 500 mg/ Sodium (Chloride) 100 mls @ 100 mls/hr IVPB Q24H [facility] Last Admin: 10/29/16 18:23 Dose: 100 mls/hr Insulin Human Regular (Novolin R) 0 unit SC Q6 [facility] PRN Reason: Protocol Last Admin: 10/30/16 06:02 Dose: Not Given Insulin Human Regular (Novolin R) 0 unit SC ACHS [facility] PRN Reason: Protocol Levothyroxine Sodium (Synthroid) 200 mcg PO DAILY@0630 [facility] Last Admin: 10/30/16 05:31 Dose: 200 mcg Lorazepam (Ativan) 1 mg IVP Q4 PRN PRN Reason: Agitation Pantoprazole Sodium (Protonix Inj) 40 mg IVP DAILY [facility] Last Admin: 10/30/16 10:08 Dose: 40 mg Vancomycin HCl (Vancocin (Oral Or Rectal Use)) 125 mg PO Q6H [facility] Last Admin: 10/30/16 06:01 Dose: 125 mg - Labs Labs: 10/30/16 06:15 10/30/16 06:15 PT 19.5 SECONDS (9.7-12.2) H 10/28/16 08:07 INR 1.7 10/28/16 08:07 APTT 49 SECONDS (21-34) H 10/25/16 16:33 Attending/Attestation - Attestation I have personally seen and examined this patient.: Yes I have fully participated in the care of the patient.: Yes I have reviewed all pertinent clinical information, including history, physical exam and plan: Yes Notes (Text): 10/30/16 10:40 76 year old female with ventilator dependent respiratory failure s/ tracheostomy , ESRD on HD, CAD s/p CABG, CHF, malnutrition, and empyema admitted with sepsis , also with rectal bleeding. 1. Rectal bleeding 2. Recto-sigmoid colitis 3. 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
[2016-10-30] MEDS ORDERED: (Novolin R) Insulin Human Regular 100 units/ml vial SC SCH (11:30)
--- NOTE | 2016-10-30 13:01 | CP.PCM.PN ---
Subjective - Date & Time of Evaluation Date of Evaluation: 10/29/16 Time of Evaluation: 14:45 - Subjective Subjective: Patient seen and evaluated Active GI bleeding requiring transfusion On Mechanical ventilation No cardiac events Guarded prognosis D/W daughter at bedside Objective - Vital Signs/Intake and Output Vital Signs (last 24 hours): Temp Pulse Resp BP Pulse Ox 97.6 F 77 19 120/49 L 100 10/29/16 12:00 10/30/16 12:30 10/30/16 12:30 10/30/16 12:13 10/30/16 12:30 Intake and Output: 10/30/16 10/30/16 06:59 18:59 Intake Total 1098.87 255.6 Balance 1098.87 255.6 - Medications Medications: Current Medications Epoetin Sly (Procrit) 10,000 unit IV MWF [facility] Last Admin: 10/28/16 14:48 Dose: 10,000 unit Norepinephrine Bitartrate 4 mg (/ Dextrose) 254 mls @ 7.62 mls/hr IV .Q24H PRN ; Protocol; 2 MCG/MIN PRN Reason: TITRATE PER MD ORDER Last Titration: 10/30/16 05:00 Dose: 2 mcg/min, 7.62 mls/hr Meropenem 500 mg/ Sodium (Chloride) 100 mls @ 100 mls/hr IVPB Q24H [facility] Last Admin: 10/29/16 18:23 Dose: 100 mls/hr Insulin Human Regular (Novolin R) 0 unit SC Q6 [facility] PRN Reason: Protocol Last Admin: 10/30/16 06:02 Dose: Not Given Levothyroxine Sodium (Synthroid) 200 mcg PO DAILY@0630 [facility] Last Admin: 10/30/16 05:31 Dose: 200 mcg Lorazepam (Ativan) 1 mg IVP Q4 PRN PRN Reason: Agitation Pantoprazole Sodium (Protonix Inj) 40 mg IVP DAILY [facility] Last Admin: 10/30/16 10:08 Dose: 40 mg Vancomycin HCl (Vancocin (Oral Or Rectal Use)) 125 mg PO Q6H [facility] Last Admin: 10/30/16 06:01 Dose: 125 mg - Labs Labs: 10/30/16 06:15 10/30/16 06:15 PT 19.5 SECONDS (9.7-12.2) H 10/28/16 08:07 INR 1.7 10/28/16 08:07 APTT 49 SECONDS (21-34) H 10/25/16 16:33
--- NOTE | 2016-10-30 14:32 | CP.PCM.PN ---
Subjective - Date & Time of Evaluation Date of Evaluation: 10/30/16 Time of Evaluation: 07:00 - Subjective Subjective: SURGERY PROGRESS NOTE FOR DR. CANNON Patient seen and examined at bedside in the ICU. She remains on mechanical ventilation via trach. She had 3 episodes of liquid maroon rectal bleeding overnight. Per nurse, she has had continuous dark blood per rectum this AM which is now being drained with Flexiseal rectal tube due to skin breakdown. Patient is on Levophed and tube feeds. Objective - Vital Signs/Intake and Output Vital Signs (last 24 hours): Temp Pulse Resp BP Pulse Ox 97.6 F 75 18 112/46 L 100 10/30/16 12:00 10/30/16 14:00 10/30/16 14:00 10/30/16 13:13 10/30/16 14:00 Intake and Output: 10/30/16 10/30/16 06:59 18:59 Intake Total 1098.87 340.8 Balance 1098.87 340.8 - Medications Medications: Current Medications Epoetin Sly (Procrit) 10,000 unit IV MWF [facility] Last Admin: 10/28/16 14:48 Dose: 10,000 unit Norepinephrine Bitartrate 4 mg (/ Dextrose) 254 mls @ 7.62 mls/hr IV .Q24H PRN ; Protocol; 2 MCG/MIN PRN Reason: TITRATE PER MD ORDER Last Titration: 10/30/16 05:00 Dose: 2 mcg/min, 7.62 mls/hr Meropenem 500 mg/ Sodium (Chloride) 100 mls @ 100 mls/hr IVPB Q24H [facility] Last Admin: 10/29/16 18:23 Dose: 100 mls/hr Insulin Human Regular (Novolin R) 0 unit SC Q6 [facility] PRN Reason: Protocol Last Admin: 10/30/16 13:00 Dose: 1 unit Levothyroxine Sodium (Synthroid) 200 mcg PO DAILY@0630 [facility] Last Admin: 10/30/16 05:31 Dose: 200 mcg Lorazepam (Ativan) 1 mg IVP Q4 PRN PRN Reason: Agitation Pantoprazole Sodium (Protonix Inj) 40 mg IVP DAILY [facility] Last Admin: 10/30/16 10:08 Dose: 40 mg Vancomycin HCl (Vancocin (Oral Or Rectal Use)) 125 mg PO Q6H [facility] Last Admin: 10/30/16 13:43 Dose: 125 mg - Labs Labs: 10/30/16 06:15 10/30/16 06:15 PT 19.5 SECONDS (9.7-12.2) H 10/28/16 08:07 INR 1.7 10/28/16 08:07 APTT 49 SECONDS (21-34) H 10/25/16 16:33 - Constitutional Appears: No Acute Distress, Chronically Ill - Neck Exam Additional comments: Trach - Respiratory Exam Respiratory Exam: NORMAL BREATHING PATTERN (on mechanical ventilation). absent : Respiratory Distress - Cardiovascular Exam Cardiovascular Exam: +S1, +S2 - GI/Abdominal Exam GI & Abdominal Exam: Soft. absent: Distended, Guarding - Neurological Exam Neurological Exam: Alert, Awake Assessment and Plan - Assessment and Plan (Free Text) Assessment: 76yo F with ischemic colitis and GI bleed - Hgb 9.2 (9.8 yesterday) - Flexiseal now in place for continued rectal bleeding - Patient's family offered option of total proctocolectomy but family refused - Serial abdominal exams - Plan discussed with Dr. Melinda Griffith PGY-3
--- NOTE | 2016-10-30 15:15 | CP.CCUPN ---
CCU Subjective - Physician Review Events Since Last Encounter (Free Text): 10/30/16 15:14 Patient seen and examined in the intensive care unit. Case discussed with staff in the morning rounds. On ventilatory support status post tracheostomy Lethargic continues to ooze blood s/p 2 units of blood yesterday CCU Objective - Vital Signs / Intake & Output Vital Signs (Last 4 hours): Vital Signs Temp Pulse Resp BP Pulse Ox 10/30/16 14:00 75 18 100 10/30/16 13:30 77 16 100 10/30/16 13:13 77 19 112/46 L 100 10/30/16 13:00 75 18 100 10/30/16 12:30 77 19 100 10/30/16 12:13 78 15 120/49 L 100 10/30/16 12:00 97.6 F 78 16 118/49 L 100 10/30/16 11:30 76 20 100 10/30/16 11:13 78 16 118/49 L 100 Intake and Output (Last 8hrs): Intake & Output 10/30/16 10/30/16 10/30/16 06:59 14:59 22:59 Intake Total 623.87 340.8 Balance 623.87 340.8 Weight 135 lb Intake: IV 240 Intake, IV Amount 103.87 60.8 Right Distal Port PICC 103.87 60.8 Tube Feeding 280 280 Other: # Bowel Movements 2 - Physical Exam Head: Positive for: Atraumatic Extroacular Muscles: Positive for: EOMI Mouth: Positive for: Dry Nose (Internal): Positive for: Other (NGT in place) Neck: Positive for: Other (trach in place) Respiratory/Chest: Positive for: Rhonchi. Negative for: Clear to Auscultation ( decreased in RLL), Respiratory Distress, Accessory Muscle Use Cardiovascular: Positive for: Regular Rate and Rhythm, Other (hypotension improved, systolic 100-110s). Negative for: Murmurs, Tachycardic Abdomen: Positive for: Distention. Negative for: Peritoneal Signs, Rebound, Guarding, Hernias Rectal: Positive for: Gross Blood Lower Extremity: Positive for: Edema Skin: Positive for: Other (jaundice) Psychiatric: Negative for: Alert - Medications Active Medications: Active Medications Generic Name Dose Route Start Last Admin Trade Name Freq PRN Reason Stop Dose Admin Epoetin Sly 10,000 unit 10/26/16 15:30 10/28/16 14:48 Procrit IV 10,000 unit MWF [facility] Administration Norepinephrine Bitartrate 4 mg 254 mls @ 7.62 mls/hr 10/25/16 15:48 10/30/16 05:00 / Dextrose IV 2 mcg/min .Q24H PRN 7.62 mls/hr TITRATE PER MD ORDER Titration Protocol 2 MCG/MIN Meropenem 500 mg/ Sodium 100 mls @ 100 mls/hr 10/25/16 19:00 10/29/16 18:23 Chloride IVPB 100 mls/hr Q24H [facility] Administration Insulin Human Regular 0 unit 10/26/16 06:00 10/30/16 13:00 Novolin R SC 1 unit Q6 [facility] Administration Protocol Levothyroxine Sodium 200 mcg 10/26/16 06:30 10/30/16 05:31 Synthroid PO 200 mcg DAILY@0630 [facility] Administration Lorazepam 1 mg 10/26/16 00:01 Ativan IVP Q4 PRN Agitation Pantoprazole Sodium 40 mg 10/26/16 11:30 10/30/16 10:08 Protonix Inj IVP 40 mg DAILY [facility] Administration Vancomycin HCl 125 mg 10/25/16 19:00 10/30/16 13:43 Vancocin (Oral Or Rectal Use) PO 125 mg Q6H [facility] Administration - Patient Studies Lab Studies: Microbiology Studies 10/25/16 17:00 Blood Culture - Preliminary Blood-Venous NO GROWTH AFTER 4 DAYS Lab Studies 10/30/16 10/30/16 10/30/16 Range/Units 11:59 06:15 06:15 WBC 16.4 H (4.8-10.8) K/uL RBC 2.99 L (3.80-5.20) Mil/uL Hgb 9.2 L (11.0-16.0) g/dL Hct 27.6 L (34.0-47.0) % MCV 92.1 (81.0-99.0) fL MCH 30.7 (27.0-31.0) pg MCHC 33.3 (33.0-37.0) g/dL RDW 16.6 H (11.5-14.5) % Plt Count 127 L (130-400) K/uL MPV 10.1 (7.2-11.7) fL Neut % (Auto) 85.0 H (50.0-75.0) % Lymph % (Auto) 7.7 L (20.0-40.0) % [facility] % (Auto) 6.3 (0.0-10.0) % Eos % (Auto) 0.5 (0.0-4.0) % Baso % (Auto) 0.5 (0.0-2.0) % Neut # 13.9 H (1.8-7.0) K/uL Lymph # 1.3 (1.0-4.3) K/uL [facility] # 1.0 H (0.0-0.8) K/uL Eos # 0.1 (0.0-0.7) K/uL Baso # 0.1 (0.0-0.2) K/uL Neutrophils % (Manual) 87 H (50-75) % Lymphocytes % (Manual) 7 L (20-40) % Monocytes % (Manual) 6 (0-10) % Platelet Estimate Normal (NORMAL) Polychromasia Slight Hypochromasia (manual) Slight Anisocytosis (manual) Slight Macrocytosis (manual) Slight Ovalocytes Slight Sodium 129 L (132-148) mmol/L Potassium 3.6 (3.6-5.2) mmol/L Chloride 95 L (98-107) mmol/L Carbon Dioxide 28 (22-30) mmol/L Anion Gap 10 (10-20) BUN 15 (7-17) mg/dL Creatinine 1.0 (0.7-1.2) MG/DL Est GFR ( Amer) > 60 Est GFR (Non-Af Amer) 54 POC Glucose (mg/dL) 165 H (65-110) mg/dL Random Glucose 211 H (65-105) mg/dL Calcium 7.9 L (8.6-10.4) mg/dl Total Bilirubin 8.0 H (0.2-1.3) mg/dL AST 49 H (14-36) U/L ALT 21 (9-52) U/L Alkaline Phosphatase 198 H D (38-126) U/L Total Protein 6.2 L (6.3-8.3) g/dL Albumin 2.0 L (3.5-5.0) g/dL Globulin 4.2 H (2.2-3.9) gm/dL Albumin/Globulin Ratio 0.5 L (1.0-2.1) Liver/Kid Microsomes Ab (<=20.0) U 10/30/16 10/29/16 10/29/16 Range/Units 05:59 23:32 18:37 WBC 19.2 H (4.8-10.8) K/uL RBC 3.24 L (3.80-5.20) Mil/uL Hgb 9.8 L D (11.0-16.0) g/dL Hct 29.7 L (34.0-47.0) % MCV 91.8 (81.0-99.0) fL MCH 30.3 (27.0-31.0) pg MCHC 33.0 (33.0-37.0) g/dL RDW 16.9 H (11.5-14.5) % Plt Count 125 L (130-400) K/uL MPV 10.0 (7.2-11.7) fL Neut % (Auto) (50.0-75.0) % Lymph % (Auto) (20.0-40.0) % [facility] % (Auto) (0.0-10.0) % Eos % (Auto) (0.0-4.0) % Baso % (Auto) (0.0-2.0) % Neut # (1.8-7.0) K/uL Lymph # (1.0-4.3) K/uL [facility] # (0.0-0.8) K/uL Eos # (0.0-0.7) K/uL Baso # (0.0-0.2) K/uL Neutrophils % (Manual) (50-75) % Lymphocytes % (Manual) (20-40) % Monocytes % (Manual) (0-10) % Platelet Estimate (NORMAL) Polychromasia Hypochromasia (manual) Anisocytosis (manual) Macrocytosis (manual) Ovalocytes Sodium (132-148) mmol/L Potassium (3.6-5.2) mmol/L Chloride (98-107) mmol/L Carbon Dioxide (22-30) mmol/L Anion Gap (10-20) BUN (7-17) mg/dL Creatinine (0.7-1.2) MG/DL Est GFR ( Amer) Est GFR (Non-Af Amer) POC Glucose (mg/dL) 178 H 128 H (65-110) mg/dL Random Glucose (65-105) mg/dL Calcium (8.6-10.4) mg/dl Total Bilirubin (0.2-1.3) mg/dL AST (14-36) U/L ALT (9-52) U/L Alkaline Phosphatase (38-126) U/L Total Protein (6.3-8.3) g/dL Albumin (3.5-5.0) g/dL Globulin (2.2-3.9) gm/dL Albumin/Globulin Ratio (1.0-2.1) Liver/Kid Microsomes Ab (<=20.0) U 10/29/16 10/26/16 Range/Units 17:26 15:32 WBC (4.8-10.8) K/uL RBC (3.80-5.20) Mil/uL Hgb (11.0-16.0) g/dL Hct (34.0-47.0) % MCV (81.0-99.0) fL MCH (27.0-31.0) pg MCHC (33.0-37.0) g/dL RDW (11.5-14.5) % Plt Count (130-400) K/uL MPV (7.2-11.7) fL Neut % (Auto) (50.0-75.0) % Lymph % (Auto) (20.0-40.0) % [facility] % (Auto) (0.0-10.0) % Eos % (Auto) (0.0-4.0) % Baso % (Auto) (0.0-2.0) % Neut # (1.8-7.0) K/uL Lymph # (1.0-4.3) K/uL [facility] # (0.0-0.8) K/uL Eos # (0.0-0.7) K/uL Baso # (0.0-0.2) K/uL Neutrophils % (Manual) (50-75) % Lymphocytes % (Manual) (20-40) % Monocytes % (Manual) (0-10) % Platelet Estimate (NORMAL) Polychromasia Hypochromasia (manual) Anisocytosis (manual) Macrocytosis (manual) Ovalocytes Sodium (132-148) mmol/L Potassium (3.6-5.2) mmol/L Chloride (98-107) mmol/L Carbon Dioxide (22-30) mmol/L Anion Gap (10-20) BUN (7-17) mg/dL Creatinine (0.7-1.2) MG/DL Est GFR ( Amer) Est GFR (Non-Af Amer) POC Glucose (mg/dL) 148 H (65-110) mg/dL Random Glucose (65-105) mg/dL Calcium (8.6-10.4) mg/dl Total Bilirubin (0.2-1.3) mg/dL AST (14-36) U/L ALT (9-52) U/L Alkaline Phosphatase (38-126) U/L Total Protein (6.3-8.3) g/dL Albumin (3.5-5.0) g/dL Globulin (2.2-3.9) gm/dL Albumin/Globulin Ratio (1.0-2.1) Liver/Kid Microsomes Ab <=20.0 (<=20.0) U Laboratory Results - last 24 hr 10/26/16 10/29/16 10/29/16 15:32 17:26 18:37 WBC 19.2 H RBC 3.24 L Hgb 9.8 L D Hct 29.7 L MCV 91.8 MCH 30.3 MCHC 33.0 RDW 16.9 H Plt Count 125 L MPV 10.0 Neut % (Auto) Lymph % (Auto) [facility] % (Auto) Eos % (Auto) Baso % (Auto) Neut # Lymph # [facility] # Eos # Baso # Neutrophils % (Manual) Lymphocytes % (Manual) Monocytes % (Manual) Platelet Estimate Polychromasia Hypochromasia (manual) Anisocytosis (manual) Macrocytosis (manual) Ovalocytes Sodium Potassium Chloride Carbon Dioxide Anion Gap BUN Creatinine Est GFR ( Amer) Est GFR (Non-Af Amer) POC Glucose (mg/dL) 148 H Random Glucose Calcium Total Bilirubin AST ALT Alkaline Phosphatase Total Protein Albumin Globulin Albumin/Globulin Ratio Liver/Kid Microsomes Ab <=20.0 10/29/16 10/30/16 10/30/16 23:32 05:59 06:15 WBC 16.4 H RBC 2.99 L Hgb 9.2 L Hct 27.6 L MCV 92.1 MCH 30.7 MCHC 33.3 RDW 16.6 H Plt Count 127 L MPV 10.1 Neut % (Auto) 85.0 H Lymph % (Auto) 7.[address] % (Auto) 6.3 Eos % (Auto) 0.5 Baso % (Auto) 0.5 Neut # 13.9 H Lymph # 1.3 [facility] # 1.0 H Eos # 0.1 Baso # 0.1 Neutrophils % (Manual) 87 H Lymphocytes % (Manual) 7 L Monocytes % (Manual) 6 Platelet Estimate Normal Polychromasia Slight Hypochromasia (manual) Slight Anisocytosis (manual) Slight Macrocytosis (manual) Slight Ovalocytes Slight Sodium Potassium Chloride Carbon Dioxide Anion Gap BUN Creatinine Est GFR ( Amer) Est GFR (Non-Af Amer) POC Glucose (mg/dL) 128 H 178 H Random Glucose Calcium Total Bilirubin AST ALT Alkaline Phosphatase Total Protein Albumin Globulin Albumin/Globulin Ratio Liver/Kid Microsomes Ab 10/30/16 10/30/16 06:15 11:59 WBC RBC Hgb Hct MCV MCH MCHC RDW Plt Count MPV Neut % (Auto) Lymph % (Auto) [facility] % (Auto) Eos % (Auto) Baso % (Auto) Neut # Lymph # [facility] # Eos # Baso # Neutrophils % (Manual) Lymphocytes % (Manual) Monocytes % (Manual) Platelet Estimate Polychromasia Hypochromasia (manual) Anisocytosis (manual) Macrocytosis (manual) Ovalocytes Sodium 129 L Potassium 3.6 Chloride 95 L Carbon Dioxide 28 Anion Gap 10 BUN 15 Creatinine 1.0 Est GFR ( Amer) > 60 Est GFR (Non-Af Amer) 54 POC Glucose (mg/dL) 165 H Random Glucose 211 H Calcium 7.9 L Total Bilirubin 8.0 H AST 49 H ALT 21 Alkaline Phosphatase 198 H D Total Protein 6.2 L Albumin 2.0 L Globulin 4.2 H Albumin/Globulin Ratio 0.5 L Liver/Kid Microsomes Ab Fingerstick Blood Sugar Results: 165 Review of Systems - Review of Systems Systems not reviewed;Unavailable: Altered Mental Status Critical Care Progress Note - Ventilator Checklist Head of Bed 30 Degrees: Yes Daily Spontaneous Breathing Trial: No Assessment/Plan (1) Lower GI bleed Assessment and plan: s/p sigmoidoscopy demonstrating severe rectal and recto-sigmoid ulceration, s/p epi/biopolar cautery Patient continued to bleed Status post transfusion of 2 units and RBCs Continue hemodialysis Continue to monitor H&H Family refused surgery Current Visit: Yes Status: Acute (2) ESRD (end stage renal disease) on dialysis Current Visit: No Status: Chronic
--- NOTE | 2016-10-30 17:06 | CP.PCM.PN ---
Subjective - Date & Time of Evaluation Date of Evaluation: 10/30/16 Time of Evaluation: 17:06 - Subjective Subjective: overall condition remained same. Denies any chest pain. But patient is on tracheostomy on ventilator. Abdominal pain, less noted. No bleeding actively noted now. Will be seeing him arises tomorrow. Continue the current management and will follow the patient 76-year-old female with history of end-stage renal disease on dialysis. Pleural effusion, loculated, associate with the empyema, on antibiotic. Recurrent GI bleed, colonic bleed, most likely. Sigmoid also. Ischemic colitis. CAD. Status post heart surgery. Heart failure. Overall prognosis is poor. Will follow the patient Objective - Vital Signs/Intake and Output Vital Signs (last 24 hours): Temp Pulse Resp BP Pulse Ox 97.6 F 80 18 116/49 L 100 10/30/16 12:00 10/30/16 15:13 10/30/16 15:13 10/30/16 15:13 10/30/16 15:13 Intake and Output: 10/30/16 10/30/16 06:59 18:59 Intake Total 1098.87 443.4 Balance 1098.87 443.4 - Medications Medications: Current Medications Epoetin Sly (Procrit) 10,000 unit IV MWF [facility] Last Admin: 10/28/16 14:48 Dose: 10,000 unit Norepinephrine Bitartrate 4 mg (/ Dextrose) 254 mls @ 7.62 mls/hr IV .Q24H PRN ; Protocol; 2 MCG/MIN PRN Reason: TITRATE PER MD ORDER Last Titration: 10/30/16 05:00 Dose: 2 mcg/min, 7.62 mls/hr Meropenem 500 mg/ Sodium (Chloride) 100 mls @ 100 mls/hr IVPB Q24H [facility] Last Admin: 10/29/16 18:23 Dose: 100 mls/hr Insulin Human Regular (Novolin R) 0 unit SC Q6 [facility] PRN Reason: Protocol Last Admin: 10/30/16 13:00 Dose: 1 unit Levothyroxine Sodium (Synthroid) 200 mcg PO DAILY@0630 [facility] Last Admin: 10/30/16 05:31 Dose: 200 mcg Lorazepam (Ativan) 1 mg IVP Q4 PRN PRN Reason: Agitation Pantoprazole Sodium (Protonix Inj) 40 mg IVP DAILY [facility] Last Admin: 10/30/16 10:08 Dose: 40 mg Vancomycin HCl (Vancocin (Oral Or Rectal Use)) 125 mg PO Q6H [facility] Last Admin: 10/30/16 13:43 Dose: 125 mg - Labs Labs: 10/30/16 06:15 10/30/16 06:15 PT 19.5 SECONDS (9.7-12.2) H 10/28/16 08:07 INR 1.7 10/28/16 08:07 APTT 49 SECONDS (21-34) H 10/25/16 16:33
[2016-10-30] MEDS: Meropenem 500 MG in Sodium Chloride 0.9% 100 ML IVPB SCH (18:27)
--- NOTE | 2016-10-30 21:49 | CP.PCM.PN ---
Subjective - Date & Time of Evaluation Date of Evaluation: 10/30/16 Time of Evaluation: 18:05 - Subjective Subjective: Patient seen and evaluated Continues to remain critical Hemodynamically stable Objective - Vital Signs/Intake and Output Vital Signs (last 24 hours): Temp Pulse Resp BP Pulse Ox 97.6 F 83 20 109/55 L 100 10/30/16 12:00 10/30/16 18:30 10/30/16 18:30 10/30/16 18:14 10/30/16 18:30 Intake and Output: 10/30/16 10/31/16 18:59 06:59 Intake Total 631.2 142.6 Balance 631.2 142.6 - Medications Medications: Current Medications Epoetin Sly (Procrit) 10,000 unit IV MWF [facility] Last Admin: 10/28/16 14:48 Dose: 10,000 unit Norepinephrine Bitartrate 4 mg (/ Dextrose) 254 mls @ 7.62 mls/hr IV .Q24H PRN ; Protocol; 2 MCG/MIN PRN Reason: TITRATE PER MD ORDER Last Titration: 10/30/16 19:00 Dose: 0 mcg/min, 0 mls/hr Meropenem 500 mg/ Sodium (Chloride) 100 mls @ 100 mls/hr IVPB Q24H [facility] Last Admin: 10/30/16 18:27 Dose: 100 mls/hr Insulin Human Regular (Novolin R) 0 unit SC Q6 [facility] PRN Reason: Protocol Last Admin: 10/30/16 18:28 Dose: Not Given Levothyroxine Sodium (Synthroid) 200 mcg PO DAILY@0630 [facility] Last Admin: 10/30/16 05:31 Dose: 200 mcg Lorazepam (Ativan) 1 mg IVP Q4 PRN PRN Reason: Agitation Pantoprazole Sodium (Protonix Inj) 40 mg IVP DAILY [facility] Last Admin: 10/30/16 10:08 Dose: 40 mg Vancomycin HCl (Vancocin (Oral Or Rectal Use)) 125 mg PO Q6H [facility] Last Admin: 10/30/16 18:28 Dose: 125 mg - Labs Labs: 10/30/16 06:15 10/30/16 06:15 PT 19.5 SECONDS (9.7-12.2) H 10/28/16 08:07 INR 1.7 10/28/16 08:07 APTT 49 SECONDS (21-34) H 10/25/16 16:33
[2016-10-31] MEDS: Vancomycin 125 MG/5 ML SOLN (ORAL/RECTAL) PO SCH ×4 (00:25→18:02)
[2016-10-31] MEDS: (Novolin R) Insulin Human Regular 100 units/ml vial SC SCH ×4 (00:27→18:05)
[2016-10-31] MEDS: Levothyroxine 200 MCG TAB PO SCH (05:55)
[2016-10-31 06:27] LABS: BASO # 0.2 K/uL (0.0-0.2); BASO % 0.8 % (0.0-2.0); EOS # 0.1 K/uL (0.0-0.7); EOS % 0.6 % (0.0-4.0); HEMATOCRIT 27.3 % (34.0-47.0); LYMPH # 1.1 K/uL (1.0-4.3); LYMPH % 5.9 % (20.0-40.0); MEAN CORPUSCULAR HEMOGLOBIN 30.9 pg (27.0-31.0); MEAN CORPUSCULAR HGB CONC 32.9 g/dL (33.0-37.0); MONO % 5.3 % (0.0-10.0); PLATELET COUNT 123 K/uL (130-400); RED CELL DISTRIBUTION WIDTH 17.7 % (11.5-14.5); WHITE BLOOD COUNT 19.3 K/uL (4.8-10.8)
[2016-10-31 06:46] LABS: POTASSIUM 3.6 mmol/L (3.6-5.2)
[2016-10-31 06:48] LABS: ALB/GLOB RATIO 0.5 (1.0-2.1); BILIRUBIN,TOTAL 7.2 mg/dL (0.2-1.3)
[2016-10-31 06:49] LABS: CALCIUM 8.2 mg/dl (8.6-10.4); MAGNESIUM 1.7 mg/dL (1.6-2.3); PHOSPHOROUS 3.8 mg/dL (2.5-4.5)
--- NOTE | 2016-10-31 08:07 | CP.CCUPN ---
<Gretchen Brewer - Last Filed: 10/31/16 13:14> CCU Subjective - Physician Review Subjective (Free Text): 10/31/16 12:41 Patient seen and examined at bedside in the AM. Per nurse the patient has not had any episodes of bright blood with bowel movements over night. Being seen by GI. CCU Objective - Vital Signs / Intake & Output Vital Signs (Last 4 hours): Vital Signs Pulse Resp BP Pulse Ox 10/31/16 06:01 80 13 91/24 L 100 10/31/16 05:01 82 13 95/33 L 100 10/31/16 04:18 82 16 94/46 L 100 Intake and Output (Last 8hrs): Intake & Output 10/30/16 10/31/16 10/31/16 22:59 06:59 14:59 Intake Total 478.0 520 Output Total 200 Balance 478.0 320 Weight 122 lb 3.2 oz Intake: IV 0 Intake, IV Amount 138.0 0 Right Distal Port PICC 38.0 Right PICC 0 0 Right Proximal Port PICC 100 Tube Feeding 280 280 Other 60 240 Output: Urine 0 Urine, Voided 0 Stool 200 - Physical Exam Head: Positive for: Atraumatic Extroacular Muscles: Positive for: EOMI Mouth: Positive for: Dry Nose (Internal): Positive for: Other (NGT in place) Neck: Positive for: Other (trach in place) Respiratory/Chest: Positive for: Rhonchi. Negative for: Clear to Auscultation ( decreased in RLL), Respiratory Distress, Accessory Muscle Use Cardiovascular: Positive for: Regular Rate and Rhythm, Other (hypotension improved, systolic 100-110s). Negative for: Murmurs, Tachycardic Abdomen: Positive for: Distention. Negative for: Peritoneal Signs, Rebound, Guarding, Hernias Rectal: Positive for: Gross Blood Lower Extremity: Positive for: Edema Skin: Positive for: Other (jaundice) Psychiatric: Negative for: Alert - Medications Active Medications: Active Medications Generic Name Dose Route Start Last Admin Trade Name Freq PRN Reason Stop Dose Admin Epoetin Sly 10,000 unit 10/26/16 15:30 10/28/16 14:48 [facility] Administration Norepinephrine Bitartrate 4 mg 254 mls @ 7.62 mls/hr 10/25/16 15:48 10/30/16 19:00 / Dextrose IV 0 mcg/min .Q24H PRN 0 mls/hr TITRATE PER MD ORDER Titration Protocol 2 MCG/MIN Meropenem 500 mg/ Sodium 100 mls @ 100 mls/hr 10/25/16 19:00 10/30/16 18:27 Chloride IVPB 100 mls/hr Q24H [facility] Administration Insulin Human Regular 0 unit 10/26/16 06:00 10/31/16 05:54 Novolin R SC Not Given Q6 [facility] Protocol Levothyroxine Sodium 200 mcg 10/26/16 06:30 10/31/16 05:55 Synthroid PO 200 mcg DAILY@0630 [facility] Administration Lorazepam 1 mg 10/26/16 00:01 Ativan IVP Q4 PRN Agitation Pantoprazole Sodium 40 mg 10/26/16 11:30 10/30/16 10:08 Protonix Inj IVP 40 mg DAILY [facility] Administration Vancomycin HCl 125 mg 10/25/16 19:00 10/31/16 06:43 Vancocin (Oral Or Rectal Use) PO 125 mg Q6H [facility] Administration - Patient Studies Lab Studies: Microbiology Studies 10/25/16 17:00 Blood Culture - Final Blood-Venous NO GROWTH AFTER 5 DAYS Gram Stain - Final TEST NOT PERFORMED Lab Studies 10/31/16 10/31/16 10/31/16 Range/Units 06:18 06:18 05:51 WBC 19.3 H (4.8-10.8) K/uL RBC 2.91 L (3.80-5.20) Mil/uL Hgb 9.0 L (11.0-16.0) g/dL Hct 27.3 L (34.0-47.0) % MCV 94.0 (81.0-99.0) fL MCH 30.9 (27.0-31.0) pg MCHC 32.9 L (33.0-37.0) g/dL RDW 17.7 H (11.5-14.5) % Plt Count 123 L (130-400) K/uL MPV 10.0 (7.2-11.7) fL Neut % (Auto) 87.4 H (50.0-75.0) % Lymph % (Auto) 5.9 L (20.0-40.0) % [place] % (Auto) 5.3 (0.0-10.0) % Eos % (Auto) 0.6 (0.0-4.0) % Baso % (Auto) 0.8 (0.0-2.0) % Neut # 16.8 H (1.8-7.0) K/uL Lymph # 1.1 (1.0-4.3) K/uL [place] # 1.0 H (0.0-0.8) K/uL Eos # 0.1 (0.0-0.7) K/uL Baso # 0.2 (0.0-0.2) K/uL Neutrophils % (Manual) (50-75) % Lymphocytes % (Manual) (20-40) % Monocytes % (Manual) (0-10) % Platelet Estimate (NORMAL) Polychromasia Hypochromasia (manual) Anisocytosis (manual) Macrocytosis (manual) Ovalocytes Sodium 129 L (132-148) mmol/L Potassium 3.6 (3.6-5.2) mmol/L Chloride 94 L (98-107) mmol/L Carbon Dioxide 27 (22-30) mmol/L Anion Gap 12 (10-20) BUN 24 H (7-17) mg/dL Creatinine 1.5 H (0.7-1.2) MG/DL Est GFR ( Amer) 41 Est GFR (Non-Af Amer) 34 POC Glucose (mg/dL) 160 H (65-110) mg/dL Random Glucose 143 H (65-105) mg/dL Calcium 8.2 L (8.6-10.4) mg/dl Phosphorus 3.8 (2.5-4.5) mg/dL Magnesium 1.7 (1.6-2.3) mg/dL Total Bilirubin 7.2 H (0.2-1.3) mg/dL AST 53 H (14-36) U/L ALT 19 (9-52) U/L Alkaline Phosphatase 203 H (38-126) U/L Total Protein 6.0 L (6.3-8.3) g/dL Albumin 2.0 L (3.5-5.0) g/dL Globulin 4.0 H (2.2-3.9) gm/dL Albumin/Globulin Ratio 0.5 L (1.0-2.1) 07/09/17 07/09/17 07/09/17 Range/Units 23:49 17:46 11:59 WBC (4.8-10.8) K/uL RBC (3.80-5.20) Mil/uL Hgb (11.0-16.0) g/dL Hct (34.0-47.0) % MCV (81.0-99.0) fL MCH (27.0-31.0) pg MCHC (33.0-37.0) g/dL RDW (11.5-14.5) % Plt Count (130-400) K/uL MPV (7.2-11.7) fL Neut % (Auto) (50.0-75.0) % Lymph % (Auto) (20.0-40.0) % [place] % (Auto) (0.0-10.0) % Eos % (Auto) (0.0-4.0) % Baso % (Auto) (0.0-2.0) % Neut # (1.8-7.0) K/uL Lymph # (1.0-4.3) K/uL [place] # (0.0-0.8) K/uL Eos # (0.0-0.7) K/uL Baso # (0.0-0.2) K/uL Neutrophils % (Manual) (50-75) % Lymphocytes % (Manual) (20-40) % Monocytes % (Manual) (0-10) % Platelet Estimate (NORMAL) Polychromasia Hypochromasia (manual) Anisocytosis (manual) Macrocytosis (manual) Ovalocytes Sodium (132-148) mmol/L Potassium (3.6-5.2) mmol/L Chloride (98-107) mmol/L Carbon Dioxide (22-30) mmol/L Anion Gap (10-20) BUN (7-17) mg/dL Creatinine (0.7-1.2) MG/DL Est GFR ( Amer) Est GFR (Non-Af Amer) POC Glucose (mg/dL) 135 H 147 H 165 H (65-110) mg/dL Random Glucose (65-105) mg/dL Calcium (8.6-10.4) mg/dl Phosphorus (2.5-4.5) mg/dL Magnesium (1.6-2.3) mg/dL Total Bilirubin (0.2-1.3) mg/dL AST (14-36) U/L ALT (9-52) U/L Alkaline Phosphatase (38-126) U/L Total Protein (6.3-8.3) g/dL Albumin (3.5-5.0) g/dL Globulin (2.2-3.9) gm/dL Albumin/Globulin Ratio (1.0-2.1) 10/30/16 Range/Units 06:15 WBC (4.8-10.8) K/uL RBC (3.80-5.20) Mil/uL Hgb (11.0-16.0) g/dL Hct (34.0-47.0) % MCV (81.0-99.0) fL MCH (27.0-31.0) pg MCHC (33.0-37.0) g/dL RDW (11.5-14.5) % Plt Count (130-400) K/uL MPV (7.2-11.7) fL Neut % (Auto) (50.0-75.0) % Lymph % (Auto) (20.0-40.0) % [place] % (Auto) (0.0-10.0) % Eos % (Auto) (0.0-4.0) % Baso % (Auto) (0.0-2.0) % Neut # (1.8-7.0) K/uL Lymph # (1.0-4.3) K/uL [place] # (0.0-0.8) K/uL Eos # (0.0-0.7) K/uL Baso # (0.0-0.2) K/uL Neutrophils % (Manual) 87 H (50-75) % Lymphocytes % (Manual) 7 L (20-40) % Monocytes % (Manual) 6 (0-10) % Platelet Estimate Normal (NORMAL) Polychromasia Slight Hypochromasia (manual) Slight Anisocytosis (manual) Slight Macrocytosis (manual) Slight Ovalocytes Slight Sodium (132-148) mmol/L Potassium (3.6-5.2) mmol/L Chloride (98-107) mmol/L Carbon Dioxide (22-30) mmol/L Anion Gap (10-20) BUN (7-17) mg/dL Creatinine (0.7-1.2) MG/DL Est GFR ( Amer) Est GFR (Non-Af Amer) POC Glucose (mg/dL) (65-110) mg/dL Random Glucose (65-105) mg/dL Calcium (8.6-10.4) mg/dl Phosphorus (2.5-4.5) mg/dL Magnesium (1.6-2.3) mg/dL Total Bilirubin (0.2-1.3) mg/dL AST (14-36) U/L ALT (9-52) U/L Alkaline Phosphatase (38-126) U/L Total Protein (6.3-8.3) g/dL Albumin (3.5-5.0) g/dL Globulin (2.2-3.9) gm/dL Albumin/Globulin Ratio (1.0-2.1) Laboratory Results - last 24 hr 10/30/16 10/30/16 10/30/16 06:15 11:59 17:46 WBC RBC Hgb Hct MCV MCH MCHC RDW Plt Count MPV Neut % (Auto) Lymph % (Auto) [place] % (Auto) Eos % (Auto) Baso % (Auto) Neut # Lymph # [place] # Eos # Baso # Neutrophils % (Manual) 87 H Lymphocytes % (Manual) 7 L Monocytes % (Manual) 6 Platelet Estimate Normal Polychromasia Slight Hypochromasia (manual) Slight Anisocytosis (manual) Slight Macrocytosis (manual) Slight Ovalocytes Slight Sodium Potassium Chloride Carbon Dioxide Anion Gap BUN Creatinine Est GFR ( Amer) Est GFR (Non-Af Amer) POC Glucose (mg/dL) 165 H 147 H Random Glucose Calcium Phosphorus Magnesium Total Bilirubin AST ALT Alkaline Phosphatase Total Protein Albumin Globulin Albumin/Globulin Ratio 10/30/16 10/31/16 10/31/16 23:49 05:51 06:18 WBC 19.3 H RBC 2.91 L Hgb 9.0 L Hct 27.3 L MCV 94.0 MCH 30.9 MCHC 32.9 L RDW 17.7 H Plt Count 123 L MPV 10.0 Neut % (Auto) 87.4 H Lymph % (Auto) 5.9 L [place] % (Auto) 5.3 Eos % (Auto) 0.6 Baso % (Auto) 0.8 Neut # 16.8 H Lymph # 1.1 [place] # 1.0 H Eos # 0.1 Baso # 0.2 Neutrophils % (Manual) Lymphocytes % (Manual) Monocytes % (Manual) Platelet Estimate Polychromasia Hypochromasia (manual) Anisocytosis (manual) Macrocytosis (manual) Ovalocytes Sodium Potassium Chloride Carbon Dioxide Anion Gap BUN Creatinine Est GFR ( Amer) Est GFR (Non-Af Amer) POC Glucose (mg/dL) 135 H 160 H Random Glucose Calcium Phosphorus Magnesium Total Bilirubin AST ALT Alkaline Phosphatase Total Protein Albumin Globulin Albumin/Globulin Ratio 10/31/16 06:18 WBC RBC Hgb Hct MCV MCH MCHC RDW Plt Count MPV Neut % (Auto) Lymph % (Auto) [place] % (Auto) Eos % (Auto) Baso % (Auto) Neut # Lymph # [place] # Eos # Baso # Neutrophils % (Manual) Lymphocytes % (Manual) Monocytes % (Manual) Platelet Estimate Polychromasia Hypochromasia (manual) Anisocytosis (manual) Macrocytosis (manual) Ovalocytes Sodium 129 L Potassium 3.6 Chloride 94 L Carbon Dioxide 27 Anion Gap 12 BUN 24 H Creatinine 1.5 H Est GFR ( Amer) 41 Est GFR (Non-Af Amer) 34 POC Glucose (mg/dL) Random Glucose 143 H Calcium 8.2 L Phosphorus 3.8 Magnesium 1.7 Total Bilirubin 7.2 H AST 53 H ALT 19 Alkaline Phosphatase 203 H Total Protein 6.0 L Albumin 2.0 L Globulin 4.0 H Albumin/Globulin Ratio 0.5 L Fingerstick Blood Sugar Results: 160 Review of Systems - Review of Systems Systems not reviewed;Unavailable: Altered Mental Status Assessment/Plan - Assessment and Plan (Free Text) Assessment: 76F with history of HTN, DM, ESRD; presented with anemia and brbpr Plan: Neuro: -GCS 9T - at baseline likely 2/2 metabolic encephalopathy Pulm: -trach on vent -CT chest shows b/l pleural effusions R>L with subsegmental atelectasis CV: -BP mildly improved - systolic now 100-110s - currently on 6mcg NE - will titrate to MAP of 70-80 -Dr Long on board. Pt high risk for any procedure but can proceed if clinical indicated Heme: - dropped to 7.3 yesterday, got 1 unit pRBC - will cont to monitor H/H and for rectal bleed - H/H (10/31): 01/18.3 - continue transfuse PRN for HgB <7 Renal: - ESRD - HD last 2 days -for hemodialysis today following GI procedure - Dr Trent on consult Endo: -Insulin sliding scale GI: - NGT for enteral feedings - Protonix drip for GI bleed - CT shows significant colitis at rectosigmoid junction - Flexible sigmoidoscopy at bedside 10/28/16 ID: - PO Vanc and Merrem Pt chronically ill, prognosis very poor DVT proph - SCDs, no anti-coagulation due to acute bleed GI proph - Protonix 40mg IVP daily Code status - Full Case discussed with Dr. Ruthy Brewer PGY-1 <Joe Bliss - Last Filed: 10/31/16 19:18> CCU Objective - Vital Signs / Intake & Output Intake and Output (Last 8hrs): Intake & Output 10/31/16 10/31/16 10/31/16 06:59 14:59 22:59 Intake Total 520 280 35 Output Total 200 Balance 320 280 35 Weight 122 lb 3.2 oz 122 lb 5.705 oz Intake: Intake, IV Amount 0 Right PICC 0 Tube Feeding 280 280 35 Other 240 Output: Urine 0 Urine, Voided 0 Stool 200 - Medications Active Medications: Active Medications Generic Name Dose Route Start Last Admin Trade Name Freq PRN Reason Stop Dose Admin Epoetin Sly 10,000 unit 10/26/16 15:30 10/31/16 09:36 Procrit IV 10,000 unit MWF [facility] Administration Meropenem 500 mg/ Sodium 100 mls @ 100 mls/hr 10/25/16 19:00 10/31/16 18:01 Chloride IVPB 100 mls/hr Q24H [facility] Administration Insulin Human Regular 0 unit 10/26/16 06:00 10/31/16 18:05 Novolin R SC Not Given Q6 [facility] Protocol Levothyroxine Sodium 200 mcg 10/26/16 06:30 10/31/16 05:55 Synthroid PO 200 mcg DAILY@0630 [facility] Administration Lorazepam 1 mg 10/26/16 00:01 Ativan IVP Q4 PRN Agitation Pantoprazole Sodium 40 mg 10/31/16 17:45 10/31/16 17:43 Protonix Susp NG 40 mg DAILY [facility] Administration Vancomycin HCl 125 mg 10/25/16 19:00 10/31/16 18:02 Vancocin (Oral Or Rectal Use) PO 125 mg Q6H [facility] Administration - Patient Studies Lab Studies: Microbiology Studies 10/25/16 17:00 Blood Culture - Final Blood-Venous NO GROWTH AFTER 5 DAYS Gram Stain - Final TEST NOT PERFORMED Lab Studies 10/31/16 10/31/16 10/31/16 Range/Units 18:05 11:34 06:18 WBC (4.8-10.8) K/uL RBC (3.80-5.20) Mil/uL Hgb (11.0-16.0) g/dL Hct (34.0-47.0) % MCV (81.0-99.0) fL MCH (27.0-31.0) pg MCHC (33.0-37.0) g/dL RDW (11.5-14.5) % Plt Count (130-400) K/uL MPV (7.2-11.7) fL Neut % (Auto) (50.0-75.0) % Lymph % (Auto) (20.0-40.0) % [place] % (Auto) (0.0-10.0) % Eos % (Auto) (0.0-4.0) % Baso % (Auto) (0.0-2.0) % Neut # (1.8-7.0) K/uL Lymph # (1.0-4.3) K/uL [place] # (0.0-0.8) K/uL Eos # (0.0-0.7) K/uL Baso # (0.0-0.2) K/uL Neutrophils % (Manual) (50-75) % Band Neutrophils % (0-2) % Lymphocytes % (Manual) (20-40) % Monocytes % (Manual) (0-10) % Platelet Estimate (NORMAL) Polychromasia Hypochromasia (manual) Anisocytosis (manual) Target Cells Sodium 129 L (132-148) mmol/L Potassium 3.6 (3.6-5.2) mmol/L Chloride 94 L (98-107) mmol/L Carbon Dioxide 27 (22-30) mmol/L Anion Gap 12 (10-20) BUN 24 H (7-17) mg/dL Creatinine 1.5 H (0.7-1.2) MG/DL Est GFR ( Amer) 41 Est GFR (Non-Af Amer) 34 POC Glucose (mg/dL) 73 117 H (65-110) mg/dL Random Glucose 143 H (65-105) mg/dL Calcium 8.2 L (8.6-10.4) mg/dl Phosphorus 3.8 (2.5-4.5) mg/dL Magnesium 1.7 (1.6-2.3) mg/dL Total Bilirubin 7.2 H (0.2-1.3) mg/dL AST 53 H (14-36) U/L ALT 19 (9-52) U/L Alkaline Phosphatase 203 H (38-126) U/L Total Protein 6.0 L (6.3-8.3) g/dL Albumin 2.0 L (3.5-5.0) g/dL Globulin 4.0 H (2.2-3.9) gm/dL Albumin/Globulin Ratio 0.5 L (1.0-2.1) Smooth Muscle Ab Titer (< 1:20) Titer Anti-Smooth Muscle Ab (Negative) 10/31/16 10/31/16 10/30/16 Range/Units 06:18 05:51 23:49 WBC 19.3 H (4.8-10.8) K/uL RBC 2.91 L (3.80-5.20) Mil/uL Hgb 9.0 L (11.0-16.0) g/dL Hct 27.3 L (34.0-47.0) % MCV 94.0 (81.0-99.0) fL MCH 30.9 (27.0-31.0) pg MCHC 32.9 L (33.0-37.0) g/dL RDW 17.7 H (11.5-14.5) % Plt Count 123 L (130-400) K/uL MPV 10.0 (7.2-11.7) fL Neut % (Auto) 87.4 H (50.0-75.0) % Lymph % (Auto) 5.9 L (20.0-40.0) % [place] % (Auto) 5.3 (0.0-10.0) % Eos % (Auto) 0.6 (0.0-4.0) % Baso % (Auto) 0.8 (0.0-2.0) % Neut # 16.8 H (1.8-7.0) K/uL Lymph # 1.1 (1.0-4.3) K/uL [place] # 1.0 H (0.0-0.8) K/uL Eos # 0.1 (0.0-0.7) K/uL Baso # 0.2 (0.0-0.2) K/uL Neutrophils % (Manual) 87 H (50-75) % Band Neutrophils % 5 H (0-2) % Lymphocytes % (Manual) 5 L (20-40) % Monocytes % (Manual) 3 (0-10) % Platelet Estimate Slightly decreased L (NORMAL) Polychromasia Slight Hypochromasia (manual) Slight Anisocytosis (manual) Slight Target Cells Slight Sodium (132-148) mmol/L Potassium (3.6-5.2) mmol/L Chloride (98-107) mmol/L Carbon Dioxide (22-30) mmol/L Anion Gap (10-20) BUN (7-17) mg/dL Creatinine (0.7-1.2) MG/DL Est GFR ( Amer) Est GFR (Non-Af Amer) POC Glucose (mg/dL) 160 H 135 H (65-110) mg/dL Random Glucose (65-105) mg/dL Calcium (8.6-10.4) mg/dl Phosphorus (2.5-4.5) mg/dL Magnesium (1.6-2.3) mg/dL Total Bilirubin (0.2-1.3) mg/dL AST (14-36) U/L ALT (9-52) U/L Alkaline Phosphatase (38-126) U/L Total Protein (6.3-8.3) g/dL Albumin (3.5-5.0) g/dL Globulin (2.2-3.9) gm/dL Albumin/Globulin Ratio (1.0-2.1) Smooth Muscle Ab Titer (< 1:20) Titer Anti-Smooth Muscle Ab (Negative) 10/26/16 Range/Units 15:32 WBC (4.8-10.8) K/uL RBC (3.80-5.20) Mil/uL Hgb (11.0-16.0) g/dL Hct (34.0-47.0) % MCV (81.0-99.0) fL MCH (27.0-31.0) pg MCHC (33.0-37.0) g/dL RDW (11.5-14.5) % Plt Count (130-400) K/uL MPV (7.2-11.7) fL Neut % (Auto) (50.0-75.0) % Lymph % (Auto) (20.0-40.0) % [place] % (Auto) (0.0-10.0) % Eos % (Auto) (0.0-4.0) % Baso % (Auto) (0.0-2.0) % Neut # (1.8-7.0) K/uL Lymph # (1.0-4.3) K/uL [place] # (0.0-0.8) K/uL Eos # (0.0-0.7) K/uL Baso # (0.0-0.2) K/uL Neutrophils % (Manual) (50-75) % Band Neutrophils % (0-2) % Lymphocytes % (Manual) (20-40) % Monocytes % (Manual) (0-10) % Platelet Estimate (NORMAL) Polychromasia Hypochromasia (manual) Anisocytosis (manual) Target Cells Sodium (132-148) mmol/L Potassium (3.6-5.2) mmol/L Chloride (98-107) mmol/L Carbon Dioxide (22-30) mmol/L Anion Gap (10-20) BUN (7-17) mg/dL Creatinine (0.7-1.2) MG/DL Est GFR ( Amer) Est GFR (Non-Af Amer) POC Glucose (mg/dL) (65-110) mg/dL Random Glucose (65-105) mg/dL Calcium (8.6-10.4) mg/dl Phosphorus (2.5-4.5) mg/dL Magnesium (1.6-2.3) mg/dL Total Bilirubin (0.2-1.3) mg/dL AST (14-36) U/L ALT (9-52) U/L Alkaline Phosphatase (38-126) U/L Total Protein (6.3-8.3) g/dL Albumin (3.5-5.0) g/dL Globulin (2.2-3.9) gm/dL Albumin/Globulin Ratio (1.0-2.1) Smooth Muscle Ab Titer 1:40 H (< 1:20) Titer Anti-Smooth Muscle Ab Positive H (Negative) Laboratory Results - last 24 hr 10/26/16 10/30/16 10/31/16 15:32 23:49 05:51 WBC RBC Hgb Hct MCV MCH MCHC RDW Plt Count MPV Neut % (Auto) Lymph % (Auto) [place] % (Auto) Eos % (Auto) Baso % (Auto) Neut # Lymph # [place] # Eos # Baso # Neutrophils % (Manual) Band Neutrophils % Lymphocytes % (Manual) Monocytes % (Manual) Platelet Estimate Polychromasia Hypochromasia (manual) Anisocytosis (manual) Target Cells Sodium Potassium Chloride Carbon Dioxide Anion Gap BUN Creatinine Est GFR ( Amer) Est GFR (Non-Af Amer) POC Glucose (mg/dL) 135 H 160 H Random Glucose Calcium Phosphorus Magnesium Total Bilirubin AST ALT Alkaline Phosphatase Total Protein Albumin Globulin Albumin/Globulin Ratio Smooth Muscle Ab Titer 1:40 H Anti-Smooth Muscle Ab Positive 10/31/16 10/31/16 10/31/16 06:18 06:18 11:34 WBC 19.3 H RBC 2.91 L Hgb 9.0 L Hct 27.3 L MCV 94.0 MCH 30.9 MCHC 32.9 L RDW 17.7 H Plt Count 123 L MPV 10.0 Neut % (Auto) 87.4 H Lymph % (Auto) 5.9 L [place] % (Auto) 5.3 Eos % (Auto) 0.6 Baso % (Auto) 0.8 Neut # 16.8 H Lymph # 1.1 [place] # 1.0 H Eos # 0.1 Baso # 0.2 Neutrophils % (Manual) 87 H Band Neutrophils % 5 H Lymphocytes % (Manual) 5 L Monocytes % (Manual) 3 Platelet Estimate Slightly decreased L Polychromasia Slight Hypochromasia (manual) Slight Anisocytosis (manual) Slight Target Cells Slight Sodium 129 L Potassium 3.6 Chloride 94 L Carbon Dioxide 27 Anion Gap 12 BUN 24 H Creatinine 1.5 H Est GFR ( Amer) 41 Est GFR (Non-Af Amer) 34 POC Glucose (mg/dL) 117 H Random Glucose 143 H Calcium 8.2 L Phosphorus 3.8 Magnesium 1.7 Total Bilirubin 7.2 H AST 53 H ALT 19 Alkaline Phosphatase 203 H Total Protein 6.0 L Albumin 2.0 L Globulin 4.0 H Albumin/Globulin Ratio 0.5 L Smooth Muscle Ab Titer Anti-Smooth Muscle Ab 10/31/16 18:05 WBC RBC Hgb Hct MCV MCH MCHC RDW Plt Count MPV Neut % (Auto) Lymph % (Auto) [place] % (Auto) Eos % (Auto) Baso % (Auto) Neut # Lymph # [place] # Eos # Baso # Neutrophils % (Manual) Band Neutrophils % Lymphocytes % (Manual) Monocytes % (Manual) Platelet Estimate Polychromasia Hypochromasia (manual) Anisocytosis (manual) Target Cells Sodium Potassium Chloride Carbon Dioxide Anion Gap BUN Creatinine Est GFR ( Amer) Est GFR (Non-Af Amer) POC Glucose (mg/dL) 73 Random Glucose Calcium Phosphorus Magnesium Total Bilirubin AST ALT Alkaline Phosphatase Total Protein Albumin Globulin Albumin/Globulin Ratio Smooth Muscle Ab Titer Anti-Smooth Muscle Ab Attending/Attestation - Attestation I have personally seen and examined this patient.: Yes I have fully participated in the care of the patient.: Yes I have reviewed all pertinent clinical information: Yes Notes (Text): 10/31/16 19:18 agree with above note during rounds in the am pt was examined and clinical decision was made and discussed with icu team
[2016-10-31 08:32] LABS: NEUTROPHIL 87 % (50-75); TOTAL CELLS COUNTED 100
--- NOTE | 2016-10-31 08:43 | CP.PCM.PN ---
<MundoIrasema - Last Filed: 10/31/16 11:04> Subjective - Date & Time of Evaluation Date of Evaluation: 10/31/16 Time of Evaluation: 06:00 - Subjective Subjective: GI Fellow PGY4 Progress Note Pt seen and evaluated at bedside this am. Per nursing, pt tolerating TF well and has been off Levophed since 7pm 10/30/16 with SBP 95. Pt with no jozef blood per rectum and flexiseal had 200cc dark brown liquid stool. ROS: Unable to be obtained 2/2 nonverbal state Objective - Vital Signs/Intake and Output Vital Signs (last 24 hours): Temp Pulse Resp BP Pulse Ox 97.6 F 80 13 91/24 L 100 10/31/16 04:00 10/31/16 06:01 10/31/16 06:01 10/31/16 06:01 10/31/16 06:01 Intake and Output: 10/31/16 10/31/16 06:59 18:59 Intake Total 767.6 Output Total 200 Balance 567.6 - Medications Medications: Current Medications Epoetin Sly (Procrit) 10,000 unit IV MWF [facility] Last Admin: 10/28/16 14:48 Dose: 10,000 unit Norepinephrine Bitartrate 4 mg (/ Dextrose) 254 mls @ 7.62 mls/hr IV .Q24H PRN ; Protocol; 2 MCG/MIN PRN Reason: TITRATE PER MD ORDER Last Titration: 10/30/16 19:00 Dose: 0 mcg/min, 0 mls/hr Meropenem 500 mg/ Sodium (Chloride) 100 mls @ 100 mls/hr IVPB Q24H [facility] Last Admin: 10/30/16 18:27 Dose: 100 mls/hr Insulin Human Regular (Novolin R) 0 unit SC Q6 [facility] PRN Reason: Protocol Last Admin: 10/31/16 05:54 Dose: Not Given Levothyroxine Sodium (Synthroid) 200 mcg PO DAILY@0630 [facility] Last Admin: 10/31/16 05:55 Dose: 200 mcg Lorazepam (Ativan) 1 mg IVP Q4 PRN PRN Reason: Agitation Pantoprazole Sodium (Protonix Inj) 40 mg IVP DAILY [facility] Last Admin: 10/30/16 10:08 Dose: 40 mg Vancomycin HCl (Vancocin (Oral Or Rectal Use)) 125 mg PO Q6H [facility] Last Admin: 10/31/16 06:43 Dose: 125 mg - Labs Labs: 10/31/16 06:18 10/31/16 06:18 PT 19.5 SECONDS (9.7-12.2) H 10/28/16 08:07 INR 1.7 10/28/16 08:07 APTT 49 SECONDS (21-34) H 10/25/16 16:33 - Constitutional Appears: No Acute Distress, Chronically Ill - Head Exam Head Exam: ATRAUMATIC, NORMAL INSPECTION, NORMOCEPHALIC - Eye Exam Eye Exam: EOMI, Scleral icterus - ENT Exam ENT Exam: Mucous Membranes Moist - Neck Exam Additional comments: s/p tracheostomy - Respiratory Exam Respiratory Exam: Decreased Breath Sounds Additional comments: scattered expiratory wheeze - Cardiovascular Exam Cardiovascular Exam: REGULAR RHYTHM, +S1, +S2, Murmur - GI/Abdominal Exam GI & Abdominal Exam: Soft, Normal Bowel Sounds. absent: Tenderness Additional comments: abdominal ascities - Rectal Exam Rectal Exam: Deferred - Extremities Exam Extremities Exam: absent: Tenderness Additional comments: thin frail - Back Exam Additional comments: sacral wounds/skin break down - Neurological Exam Neurological Exam: Alert, Awake Additional comments: unable to follow commands - Psychiatric Exam Psychiatric exam: Agitated, Anxious - Skin Skin Exam: Dry, Intact, Warm Additional comments: slight jaundice Assessment and Plan - Assessment and Plan (Free Text) Assessment: 76 year old female with h/o ESRD on HD, vent dependent respiratory failure s/p tracheostomy, CAD s/p CABG, CHF, malnutrition s/p NGT for enteral feeding, empyema on po vancomycin who pw rectal bleeding from LTAC s/p 5U PRBC transfusion with Hbg 9.0. 1. Rectal bleeding 2. Recto-sigmoid colitis 3. Hyperbilirubinemeia 4. Malnutrition Plan: 1. Rectal bleeding-improved, no further active bleed, Hgb stable 9.0 s/p 5U PRBC since admission, continue close monitoring of Hgb and transfuse as needed Flexiseal in place for skin breakdown- risk of worsened GI bleed versus tamponade effect from balloon 2. Recto-sigmod colitis-s/p sigmoidoscopy POD#3, 10/28/16, demonstrating severe rectal and recto-sigmoid ulceration with active diffuse oozing as well as one small visible vessel with active bleeding s/p epi/biopolar cautery. Likely ischemic colitis from hypotensive state and calcification of vasculature. 3. Hyperbilirubinemeia-likely 2/2 cholestasis of sepsis, congestive hepatopathy , or drug-induced with previous use of antifungal. No obstructive pathology on imaging. 4. Nutritional status-NGT for enteral feedings, may need IR guided gastrostomy once stabilized, no endoscopic PEG 2/2 abdominal ascities <Ronna Collier MD - Last Filed: 10/31/16 11:42> Objective - Vital Signs/Intake and Output Vital Signs (last 24 hours): Temp Pulse Resp BP Pulse Ox 97.6 F 73 16 94/39 L 100 10/31/16 09:00 10/31/16 09:05 10/31/16 09:05 10/31/16 11:00 10/31/16 09:05 Intake and Output: 10/31/16 10/31/16 06:59 18:59 Intake Total 767.6 105 Output Total 200 Balance 567.6 105 - Medications Medications: Current Medications Epoetin Sly (Procrit) 10,000 unit IV MWF [facility] Last Admin: 10/31/16 09:36 Dose: 10,000 unit Norepinephrine Bitartrate 4 mg (/ Dextrose) 254 mls @ 7.62 mls/hr IV .Q24H PRN ; Protocol; 2 MCG/MIN PRN Reason: TITRATE PER MD ORDER Last Titration: 10/30/16 19:00 Dose: 0 mcg/min, 0 mls/hr Meropenem 500 mg/ Sodium (Chloride) 100 mls @ 100 mls/hr IVPB Q24H [facility] Last Admin: 10/30/16 18:27 Dose: 100 mls/hr Insulin Human Regular (Novolin R) 0 unit SC Q6 [facility] PRN Reason: Protocol Last Admin: 10/31/16 05:54 Dose: Not Given Levothyroxine Sodium (Synthroid) 200 mcg PO DAILY@0630 [facility] Last Admin: 10/31/16 05:55 Dose: 200 mcg Lorazepam (Ativan) 1 mg IVP Q4 PRN PRN Reason: Agitation Pantoprazole Sodium (Protonix Inj) 40 mg IVP DAILY [facility] Last Admin: 10/30/16 10:08 Dose: 40 mg Vancomycin HCl (Vancocin (Oral Or Rectal Use)) 125 mg PO Q6H [facility] Last Admin: 10/31/16 06:43 Dose: 125 mg - Labs Labs: 10/31/16 06:18 10/31/16 06:18 PT 19.5 SECONDS (9.7-12.2) H 10/28/16 08:07 INR 1.7 10/28/16 08:07 APTT 49 SECONDS (21-34) H 10/25/16 16:33 Attending/Attestation - Attestation I have personally seen and examined this patient.: Yes I have fully participated in the care of the patient.: Yes I have reviewed all pertinent clinical information, including history, physical exam and plan: Yes Notes (Text): 10/31/16 11:39 Patient seen with Gi fellow on Gi rounds this am. I agree with assessment and plan with following exceptions and additions. This is a 76 year old female with ventilator dependent respiratory failure s/ tracheostomy, ESRD on HD, CAD s/p CABG, CHF, malnutrition, and empyema admitted with sepsis, also with rectal bleeding s/p sigmoidoscopy demonstrating severe rectal and recto-sigmoid ulceration with active diffuse oozing as well as one small visible vessel with active bleeding s/p epi/biopolar cautery. s/p 3 unitts PRBC with stable Hb/Hct. Likely ischemic colitis due to hypotensive state. Hyperbilirubinemia due to sepsis, congestive ischemic hepatitis, or anti fungal drug induced. Pressors discontinued. Trend daily LFT. Continue rest of treatment as per MICU. Poor prognosis.
[2016-10-31] MEDS ORDERED: Albumin Human 25% (12.5 gm/50 ml) IV ONE ×2 (09:30→10:09)
[2016-10-31] MEDS: EPOETIN ALFA 10,000 UNIT/ML ML IV SCH (09:36)
--- NOTE | 2016-10-31 10:35 | CP.PCM.PN ---
Subjective - Date & Time of Evaluation Date of Evaluation: 10/31/16 Time of Evaluation: 10:32 - Subjective Subjective: On dialysis now- to UF 1500ml if BP allows Extubated now; received 2 units prbcs blood transfusion 10/29 No overt GI bleeding seen now Rectal tube in place BP remains low- off pressors Objective - Vital Signs/Intake and Output Vital Signs (last 24 hours): Temp Pulse Resp BP Pulse Ox 97.6 F 73 16 86/37 L 100 10/31/16 09:00 10/31/16 09:05 10/31/16 09:05 10/31/16 10:30 10/31/16 09:05 Intake and Output: 10/31/16 10/31/16 06:59 18:59 Intake Total 767.6 105 Output Total 200 Balance 567.6 105 - Medications Medications: Current Medications Epoetin Sly (Procrit) 10,000 unit IV MWF [facility] Last Admin: 10/31/16 09:36 Dose: 10,000 unit Norepinephrine Bitartrate 4 mg (/ Dextrose) 254 mls @ 7.62 mls/hr IV .Q24H PRN ; Protocol; 2 MCG/MIN PRN Reason: TITRATE PER MD ORDER Last Titration: 10/30/16 19:00 Dose: 0 mcg/min, 0 mls/hr Meropenem 500 mg/ Sodium (Chloride) 100 mls @ 100 mls/hr IVPB Q24H [facility] Last Admin: 10/30/16 18:27 Dose: 100 mls/hr Insulin Human Regular (Novolin R) 0 unit SC Q6 [facility] PRN Reason: Protocol Last Admin: 10/31/16 05:54 Dose: Not Given Levothyroxine Sodium (Synthroid) 200 mcg PO DAILY@0630 [facility] Last Admin: 10/31/16 05:55 Dose: 200 mcg Lorazepam (Ativan) 1 mg IVP Q4 PRN PRN Reason: Agitation Pantoprazole Sodium (Protonix Inj) 40 mg IVP DAILY [facility] Last Admin: 10/30/16 10:08 Dose: 40 mg Vancomycin HCl (Vancocin (Oral Or Rectal Use)) 125 mg PO Q6H [facility] Last Admin: 10/31/16 06:43 Dose: 125 mg - Labs Labs: 10/31/16 06:18 10/31/16 06:18 PT 19.5 SECONDS (9.7-12.2) H 10/28/16 08:07 INR 1.7 10/28/16 08:07 APTT 49 SECONDS (21-34) H 10/25/16 16:33 - Constitutional Appears: Cachectic, Chronically Ill - Head Exam Head Exam: ATRAUMATIC, NORMAL INSPECTION - Eye Exam Eye Exam: EOMI, Normal appearance - Neck Exam Neck Exam: Normal Inspection. absent: Tenderness - Respiratory Exam Respiratory Exam: Clear to Ausculation Bilateral, NORMAL BREATHING PATTERN - Cardiovascular Exam Cardiovascular Exam: Tachycardia, +S1 - GI/Abdominal Exam GI & Abdominal Exam: Soft. absent: Tenderness - Extremities Exam Extremities Exam: Normal Inspection, Tenderness - Neurological Exam Neurological Exam: Altered, CN II-XII Intact - Skin Skin Exam: Dry, Warm Assessment and Plan (1) Lower GI bleed Status: Acute (2) Diabetic nephropathy with proteinuria Status: Acute (3) CHF (congestive heart failure) Status: Chronic (4) ESRD (end stage renal disease) on dialysis Status: Chronic - Assessment and Plan (Free Text) Plan: Dialysis MWF UF as much as possible Surgical monitoring for likely ischemic bowel Monitor low BP
--- NOTE | 2016-10-31 11:15 | CP.PCM.PN ---
Subjective - Date & Time of Evaluation Date of Evaluation: 10/31/16 Time of Evaluation: 07:20 - Subjective Subjective: General sx progress note for Dr. Johanna Chen, PGY-1 Pt S & E at bedside this AM. Pt with rectal tube in place- dark brown liquid stool- non bloody, non verbal, tracking with eyes. Continues on mech vent via trach. Objective - Vital Signs/Intake and Output Vital Signs (last 24 hours): Temp Pulse Resp BP Pulse Ox 97.6 F 73 16 94/39 L 100 10/31/16 09:00 10/31/16 09:05 10/31/16 09:05 10/31/16 11:00 10/31/16 09:05 Intake and Output: 10/31/16 10/31/16 06:59 18:59 Intake Total 767.6 105 Output Total 200 Balance 567.6 105 - Medications Medications: Current Medications Epoetin Sly (Procrit) 10,000 unit IV MWF [facility] Last Admin: 10/31/16 09:36 Dose: 10,000 unit Norepinephrine Bitartrate 4 mg (/ Dextrose) 254 mls @ 7.62 mls/hr IV .Q24H PRN ; Protocol; 2 MCG/MIN PRN Reason: TITRATE PER MD ORDER Last Titration: 10/30/16 19:00 Dose: 0 mcg/min, 0 mls/hr Meropenem 500 mg/ Sodium (Chloride) 100 mls @ 100 mls/hr IVPB Q24H [facility] Last Admin: 10/30/16 18:27 Dose: 100 mls/hr Insulin Human Regular (Novolin R) 0 unit SC Q6 [facility] PRN Reason: Protocol Last Admin: 10/31/16 05:54 Dose: Not Given Levothyroxine Sodium (Synthroid) 200 mcg PO DAILY@0630 [facility] Last Admin: 10/31/16 05:55 Dose: 200 mcg Lorazepam (Ativan) 1 mg IVP Q4 PRN PRN Reason: Agitation Pantoprazole Sodium (Protonix Inj) 40 mg IVP DAILY [facility] Last Admin: 10/30/16 10:08 Dose: 40 mg Vancomycin HCl (Vancocin (Oral Or Rectal Use)) 125 mg PO Q6H [facility] Last Admin: 10/31/16 06:43 Dose: 125 mg - Labs Labs: 10/31/16 06:18 07/10/17 06:18 PT 19.5 SECONDS (9.7-12.2) H 10/28/16 08:07 INR 1.7 10/28/16 08:07 APTT 49 SECONDS (21-34) H 10/25/16 16:33 - Constitutional Appears: Non-toxic, No Acute Distress - Head Exam Head Exam: ATRAUMATIC, NORMAL INSPECTION, NORMOCEPHALIC - Eye Exam Eye Exam: EOMI, Normal appearance - ENT Exam ENT Exam: Mucous Membranes Moist, Normal Exam Additional comments: edentulous - Neck Exam Additional comments: trach in place- non bloody, no drainage; mech vent PRVC FiO2 40%, PEEP 5, RR 14 , TV 300 - Respiratory Exam Respiratory Exam: NORMAL BREATHING PATTERN - Cardiovascular Exam Cardiovascular Exam: REGULAR RHYTHM, +S1, +S2 - GI/Abdominal Exam GI & Abdominal Exam: Soft, Normal Bowel Sounds. absent: Tenderness - Neurological Exam Neurological Exam: Awake - Psychiatric Exam Additional comments: non verbal - Skin Skin Exam: Dry, Intact, Normal Color, Warm Assessment and Plan - Assessment and Plan (Free Text) Assessment: 76F w/BRBPR- resolving Plan: No surgical intervention as this time as per family Cont medical mgmt as per ICU Please re-consult as needed Thank you DW attending April, PGY-1
[2016-10-31] MEDS ORDERED: Pantoprazole 40 mg EC Tab PO SCH (14:30)
[2016-10-31 15:22] LABS: SMOOTH MUSCLE AB TITER 1:40 Titer (< 1:20)
[2016-10-31] MEDS: Pantoprazole 40 mg Susp UD NG SCH (17:43)
[2016-10-31] MEDS: Meropenem 500 MG in Sodium Chloride 0.9% 100 ML IVPB SCH (18:01)
--- NOTE | 2016-10-31 22:43 | CP.PCM.PN ---
Subjective - Date & Time of Evaluation Date of Evaluation: 10/31/16 Time of Evaluation: 18:40 - Subjective Subjective: Patient seen and evaluated Condition remains same daughter at bed side Objective - Vital Signs/Intake and Output Vital Signs (last 24 hours): Temp Pulse Resp BP Pulse Ox 97.3 F L 77 11 L 92/27 L 100 10/31/16 20:00 10/31/16 22:08 10/31/16 22:08 10/31/16 22:08 10/31/16 22:08 Intake and Output: 10/31/16 11/01/16 18:59 06:59 Intake Total 520 140 Output Total 25 Balance 495 140 - Medications Medications: Current Medications Epoetin Sly (Procrit) 10,000 unit IV MWF [facility] Last Admin: 10/31/16 09:36 Dose: 10,000 unit Meropenem 500 mg/ Sodium (Chloride) 100 mls @ 100 mls/hr IVPB Q24H [facility] Last Admin: 10/31/16 18:01 Dose: 100 mls/hr Insulin Human Regular (Novolin R) 0 unit SC Q6 [facility] PRN Reason: Protocol Last Admin: 10/31/16 18:05 Dose: Not Given Levothyroxine Sodium (Synthroid) 200 mcg PO DAILY@0630 [facility] Last Admin: 10/31/16 05:55 Dose: 200 mcg Lorazepam (Ativan) 1 mg IVP Q4 PRN PRN Reason: Agitation Pantoprazole Sodium (Protonix Susp) 40 mg NG DAILY [facility] Last Admin: 10/31/16 17:43 Dose: 40 mg Vancomycin HCl (Vancocin (Oral Or Rectal Use)) 125 mg PO Q6H [facility] Last Admin: 10/31/16 18:02 Dose: 125 mg - Labs Labs: 10/31/16 06:18 10/31/16 06:18 PT 19.5 SECONDS (9.7-12.2) H 10/28/16 08:07 INR 1.7 10/28/16 08:07 APTT 49 SECONDS (21-34) H 10/25/16 16:33
[2016-11-01] MEDS: Vancomycin 125 MG/5 ML SOLN (ORAL/RECTAL) PO SCH ×4 (00:10→18:11)
[2016-11-01] MEDS: (Novolin R) Insulin Human Regular 100 units/ml vial SC SCH ×4 (00:10→18:13)
[2016-11-01] MEDS: Levothyroxine 200 MCG TAB PO SCH (05:49)
[2016-11-01 06:20] LABS: BASO # 0.1 K/uL (0.0-0.2); BASO % 1.1 % (0.0-2.0); EOS # 0.1 K/uL (0.0-0.7); EOS % 0.6 % (0.0-4.0); HEMATOCRIT 25.7 % (34.0-47.0); LYMPH # 1.2 K/uL (1.0-4.3); LYMPH % 8.9 % (20.0-40.0); MEAN CELL VOLUME 95.6 fL (81.0-99.0); MEAN CORPUSCULAR HEMOGLOBIN 31.7 pg (27.0-31.0); MEAN CORPUSCULAR HGB CONC 33.1 g/dL (33.0-37.0); MEAN PLATELET VOLUME 10.4 fL (7.2-11.7); MONO # 0.9 K/uL (0.0-0.8); MONO % 6.6 % (0.0-10.0); NRBC % 0.1 % (0.0-2.0); PLATELET COUNT 110 K/uL (130-400); RED CELL DISTRIBUTION WIDTH 16.9 % (11.5-14.5); WHITE BLOOD COUNT 13.5 K/uL (4.8-10.8)
[2016-11-01 06:30] LABS: POTASSIUM 3.5 mmol/L (3.6-5.2)
[2016-11-01 06:32] LABS: ALB/GLOB RATIO 0.5 (1.0-2.1); BILIRUBIN,TOTAL 6.6 mg/dL (0.2-1.3); TOTAL PROTEIN 6.2 g/dL (6.3-8.3)
[2016-11-01 06:33] LABS: MAGNESIUM 1.7 mg/dL (1.6-2.3); PHOSPHOROUS 2.7 mg/dL (2.5-4.5)
[2016-11-01 08:49] LABS: BASOPHIL 2 % (0-2); NEUTROPHIL 86 % (50-75); TOTAL CELLS COUNTED 100
[2016-11-01 08:50] LABS: GIANT PLATELETS PRESENT; LARGE PLATELETS PRESENT
--- NOTE | 2016-11-01 09:03 | CP.PCM.PN ---
<MundoIrasema - Last Filed: 11/01/16 09:06> Subjective - Date & Time of Evaluation Date of Evaluation: 11/01/16 Time of Evaluation: 06:00 - Subjective Subjective: GI Fellow PGY4 Progress Note Pt seen and examined at bedside. Pt is doing well continues to be off Levophed and tolerating TF. Pt with flexiseal in place now with brown stool 300cc with no signs of rectal bleeding. ROS: A 12pt ROS was attempted but was unable since pt is nonverbal Objective - Vital Signs/Intake and Output Vital Signs (last 24 hours): Temp Pulse Resp BP Pulse Ox 97.8 F 83 19 90/27 L 100 11/01/16 04:00 11/01/16 07:00 11/01/16 07:00 11/01/16 05:58 11/01/16 07:00 Intake and Output: 11/01/16 11/01/16 06:59 18:59 Intake Total 600 Output Total 50 Balance 550 - Medications Medications: Current Medications Epoetin Sly (Procrit) 10,000 unit IV MWF [facility] Last Admin: 10/31/16 09:36 Dose: 10,000 unit Meropenem 500 mg/ Sodium (Chloride) 100 mls @ 100 mls/hr IVPB Q24H [facility] Last Admin: 10/31/16 18:01 Dose: 100 mls/hr Insulin Human Regular (Novolin R) 0 unit SC Q6 [facility] PRN Reason: Protocol Last Admin: 11/01/16 05:13 Dose: Not Given Levothyroxine Sodium (Synthroid) 200 mcg PO DAILY@0630 [facility] Last Admin: 11/01/16 05:49 Dose: 200 mcg Lorazepam (Ativan) 1 mg IVP Q4 PRN PRN Reason: Agitation Pantoprazole Sodium (Protonix Susp) 40 mg NG DAILY [facility] Last Admin: 10/31/16 17:43 Dose: 40 mg Vancomycin HCl (Vancocin (Oral Or Rectal Use)) 125 mg PO Q6H [facility] Last Admin: 11/01/16 06:13 Dose: 125 mg - Labs Labs: 11/01/16 06:11 11/01/16 06:11 PT 19.5 SECONDS (9.7-12.2) H 10/28/16 08:07 INR 1.7 10/28/16 08:07 APTT 49 SECONDS (21-34) H 10/25/16 16:33 - Constitutional Appears: No Acute Distress, Chronically Ill - Head Exam Head Exam: ATRAUMATIC, NORMAL INSPECTION, NORMOCEPHALIC - Eye Exam Eye Exam: EOMI, Scleral icterus Pupil Exam: PERRL - ENT Exam ENT Exam: Mucous Membranes Moist - Neck Exam Neck Exam: Full ROM Additional comments: tracheostomy - Respiratory Exam Respiratory Exam: Decreased Breath Sounds - Cardiovascular Exam Cardiovascular Exam: REGULAR RHYTHM, Murmur - GI/Abdominal Exam GI & Abdominal Exam: Soft, Normal Bowel Sounds Additional comments: small abdominal ascities - Rectal Exam Rectal Exam: Deferred - Back Exam Additional comments: sacral wounds - Neurological Exam Neurological Exam: Alert, Awake Additional comments: does not follow commands - Psychiatric Exam Psychiatric exam: Anxious - Skin Skin Exam: Intact Additional comments: sacral wounds, heel ulcer Assessment and Plan - Assessment and Plan (Free Text) Assessment: 76 year old female with h/o ESRD on HD, vent dependent respiratory failure s/p tracheostomy, CAD s/p CABG, CHF, malnutrition s/p NGT for enteral feeding, empyema on po vancomycin who pw rectal bleeding from LTAC s/p 5U PRBC transfusion with Hbg 8.5. 1. Rectal bleeding 2. Recto-sigmoid colitis 3. Hyperbilirubinemeia 4. Malnutrition Plan: 1. Rectal bleeding-resolved, no further active bleed, Hgb stable 8.5 s/p 5U PRBC since admission, continue close monitoring of Hgb and transfuse as needed Flexiseal in place for skin breakdown- no further rectal bleeding, brown stool 2. Recto-sigmod colitis-s/p sigmoidoscopy POD#3, 10/28/16, demonstrating severe rectal and recto-sigmoid ulceration with active diffuse oozing as well as one small visible vessel with active bleeding s/p epi/biopolar cautery. Likely ischemic colitis from hypotensive state and calcification of vasculature. 3. Hyperbilirubinemeia-improving, likely 2/2 cholestasis of sepsis, congestive hepatopathy, or drug-induced with previous use of antifungal. No obstructive pathology on imaging. 4. Nutritional status-NGT for enteral feedings, recommend IR guided gastrostomy since pt is stabilized, no endoscopic PEG 2/2 abdominal ascities Please call with any questions/concerns. Will sign off at this time. Thank you for this consultation. <HectorMaurisio Y - Last Filed: 11/01/16 09:26> Objective - Vital Signs/Intake and Output Vital Signs (last 24 hours): Temp Pulse Resp BP Pulse Ox 97.4 F L 80 16 100/31 L 100 11/01/16 08:00 11/01/16 09:00 11/01/16 09:00 11/01/16 07:58 11/01/16 09:00 Intake and Output: 11/01/16 11/01/16 06:59 18:59 Intake Total 600 Output Total 50 Balance 550 - Medications Medications: Current Medications Epoetin Sly (Procrit) 10,000 unit IV MWF [facility] Last Admin: 10/31/16 09:36 Dose: 10,000 unit Meropenem 500 mg/ Sodium (Chloride) 100 mls @ 100 mls/hr IVPB Q24H [facility] Last Admin: 10/31/16 18:01 Dose: 100 mls/hr Insulin Human Regular (Novolin R) 0 unit SC Q6 [facility] PRN Reason: Protocol Last Admin: 11/01/16 05:13 Dose: Not Given Levothyroxine Sodium (Synthroid) 200 mcg PO DAILY@0630 [facility] Last Admin: 11/01/16 05:49 Dose: 200 mcg Lorazepam (Ativan) 1 mg IVP Q4 PRN PRN Reason: Agitation Pantoprazole Sodium (Protonix Susp) 40 mg NG DAILY [facility] Last Admin: 10/31/16 17:43 Dose: 40 mg Vancomycin HCl (Vancocin (Oral Or Rectal Use)) 125 mg PO Q6H [facility] Last Admin: 11/01/16 06:13 Dose: 125 mg - Labs Labs: 11/01/16 06:11 11/01/16 06:11 PT 19.5 SECONDS (9.7-12.2) H 10/28/16 08:07 INR 1.7 10/28/16 08:07 APTT 49 SECONDS (21-34) H 10/25/16 16:33 Attending/Attestation - Attestation I have personally seen and examined this patient.: Yes I have fully participated in the care of the patient.: Yes I have reviewed all pertinent clinical information, including history, physical exam and plan: Yes Notes (Text): 11/01/16 09:21 I have seen and examined patient with GI fellow. No acute events overnight, she is seen resting comfortably. She is not able to participate in any meaningful conversation, information obtained via discussion with nursing staff and intensive care team. Patient is no longer on vasopressor support, tolerating tube feeding via NGT and having soft brown stool output via rectal tube. ESRD on HD Respiratory failure s/p tracheostomy CAD/CABG Rectal bleeding - s/p flex sigmoidoscopy with control of actively bleeding vessel Colitis Hyperbilirubinemia without evidence of obstructive pathology, likely secondary to DILI - Tube feeding as tolerated - Continue with antibiotic therapy as per medical team - Bilirubin trending down, monitor and avoid hepatotoxic therapy - H/H stable, no signs of ongoing overt bleeding, continue to monitor - Patient has had indwelling NGT for over 1 month now and risks ongoing chronic sinus and other upper respiratory infections. She is not endoscopic gastrostomy tube candidate due to presence of ascites. Therefore, suggest IR evaluation for potential gastrostomy placement. - No ongoing GI issues, will sign off case. Please reconsult as necessary, thank you.
[2016-11-01] MEDS: Pantoprazole 40 mg Susp UD NG SCH (10:04)
--- NOTE | 2016-11-01 11:08 | CP.CCUPN ---
<Javier Bello - Last Filed: 11/01/16 11:06> CCU Subjective - Physician Review Events Since Last Encounter (Free Text): 11/01/16 11:06 Pt S&E. DEVI. No further bloody BMs. Surgery and GI have signed off. Rec CT guided PEG placement due to ascites. HgB now stable. Daughter declined surgery. Worsening ischemia of distal upper extremities. Prognosis remains very poor CCU Objective - Vital Signs / Intake & Output Vital Signs (Last 4 hours): Vital Signs Temp Pulse Resp BP Pulse Ox 11/01/16 09:00 80 16 100 11/01/16 08:00 97.4 F L 83 16 100 11/01/16 07:58 83 18 100/31 L 100 Intake and Output (Last 8hrs): Intake & Output 10/31/16 11/01/16 11/01/16 22:59 06:59 14:59 Intake Total 440 400 105 Output Total 25 50 Balance 415 350 105 Weight 115 lb Intake: Intake, IV Amount 100 Right PICC 100 Tube Feeding 280 280 105 Other 60 120 Output: Urine 50 Urine, Voided 50 Stool 25 - Physical Exam Head: Positive for: Atraumatic Extroacular Muscles: Positive for: EOMI Mouth: Positive for: Dry Nose (Internal): Positive for: Other (NGT in place) Neck: Positive for: Other (trach in place) Respiratory/Chest: Positive for: Rhonchi. Negative for: Clear to Auscultation ( decreased in RLL), Respiratory Distress, Accessory Muscle Use Cardiovascular: Positive for: Regular Rate and Rhythm, Normal S1, S2, Other ( hypotension improved, systolic 100-110s). Negative for: Murmurs, Tachycardic Abdomen: Positive for: Tenderness (grimaces on palpation), Distention. Negative for: Peritoneal Signs, Hernias Lower Extremity: Positive for: Edema Skin: Positive for: Other (jaundice) Psychiatric: Positive for: Oriented x 3. Negative for: Alert - Medications Active Medications: Active Medications Generic Name Dose Route Start Last Admin Trade Name Freq PRN Reason Stop Dose Admin Epoetin Sly 10,000 unit 10/26/16 15:30 10/31/16 09:36 [facility] Administration Meropenem 500 mg/ Sodium 100 mls @ 100 mls/hr 10/25/16 19:00 10/31/16 18:01 Chloride IVPB 100 mls/hr Q24H [facility] Administration Insulin Human Regular 0 unit 10/26/16 06:00 11/01/16 05:13 Novolin R SC Not Given Q6 [facility] Protocol Levothyroxine Sodium 200 mcg 10/26/16 06:30 11/01/16 05:49 Synthroid PO 200 mcg DAILY@0630 [facility] Administration Lorazepam 1 mg 10/26/16 00:01 Ativan IVP Q4 PRN Agitation Pantoprazole Sodium 40 mg 10/31/16 17:45 11/01/16 10:04 Protonix Susp NG 40 mg DAILY [facility] Administration Vancomycin HCl 125 mg 10/25/16 19:00 11/01/16 06:13 Vancocin (Oral Or Rectal Use) PO 125 mg Q6H [facility] Administration - Patient Studies Lab Studies: Lab Studies 11/01/16 11/01/16 11/01/16 Range/Units 06:11 06:11 05:11 WBC 13.5 H (4.8-10.8) K/uL RBC 2.69 L (3.80-5.20) Mil/uL Hgb 8.5 L (11.0-16.0) g/dL Hct 25.7 L (34.0-47.0) % MCV 95.6 (81.0-99.0) fL MCH 31.7 H (27.0-31.0) pg MCHC 33.1 (33.0-37.0) g/dL RDW 16.9 H (11.5-14.5) % Plt Count 110 L (130-400) K/uL MPV 10.4 (7.2-11.7) fL Neut % (Auto) 82.8 H (50.0-75.0) % Lymph % (Auto) 8.9 L (20.0-40.0) % [place] % (Auto) 6.6 (0.0-10.0) % Eos % (Auto) 0.6 (0.0-4.0) % Baso % (Auto) 1.1 (0.0-2.0) % Neut # 11.2 H (1.8-7.0) K/uL Lymph # 1.2 (1.0-4.3) K/uL [place] # 0.9 H (0.0-0.8) K/uL Eos # 0.1 (0.0-0.7) K/uL Baso # 0.1 (0.0-0.2) K/uL Neutrophils % (Manual) 86 H (50-75) % Band Neutrophils % 1 (0-2) % Lymphocytes % (Manual) 6 L (20-40) % Monocytes % (Manual) 5 (0-10) % Basophils % (Manual) 2 (0-2) % Toxic Granulation Present Platelet Estimate Slightly decreased L (NORMAL) Large Platelets Present Giant Platelets Present Hypochromasia (manual) Slight Poikilocytosis (manual Slight Anisocytosis (manual) Slight Target Cells Slight Sodium 134 (132-148) mmol/L Potassium 3.5 L (3.6-5.2) mmol/L Chloride 97 L (98-107) mmol/L Carbon Dioxide 29 (22-30) mmol/L Anion Gap 12 (10-20) BUN 20 H (7-17) mg/dL Creatinine 1.2 (0.7-1.2) MG/DL Est GFR ( Amer) 53 Est GFR (Non-Af Amer) 44 POC Glucose (mg/dL) 169 H (65-110) mg/dL Random Glucose 144 H (65-105) mg/dL Calcium 8.0 L (8.6-10.4) mg/dl Phosphorus 2.7 (2.5-4.5) mg/dL Magnesium 1.7 (1.6-2.3) mg/dL Total Bilirubin 6.6 H (0.2-1.3) mg/dL AST 50 H (14-36) U/L ALT 23 (9-52) U/L Alkaline Phosphatase 255 H D (38-126) U/L Total Protein 6.2 L (6.3-8.3) g/dL Albumin 2.1 L (3.5-5.0) g/dL Globulin 4.1 H (2.2-3.9) gm/dL Albumin/Globulin Ratio 0.5 L (1.0-2.1) Smooth Muscle Ab Titer (< 1:20) Titer Anti-Smooth Muscle Ab (Negative) 10/31/16 10/31/16 10/31/16 Range/Units 23:58 18:05 11:34 WBC (4.8-10.8) K/uL RBC (3.80-5.20) Mil/uL Hgb (11.0-16.0) g/dL Hct (34.0-47.0) % MCV (81.0-99.0) fL MCH (27.0-31.0) pg MCHC (33.0-37.0) g/dL RDW (11.5-14.5) % Plt Count (130-400) K/uL MPV (7.2-11.7) fL Neut % (Auto) (50.0-75.0) % Lymph % (Auto) (20.0-40.0) % [place] % (Auto) (0.0-10.0) % Eos % (Auto) (0.0-4.0) % Baso % (Auto) (0.0-2.0) % Neut # (1.8-7.0) K/uL Lymph # (1.0-4.3) K/uL [place]ff[place] # (0.0-0.8) K/uL Eos # (0.0-0.7) K/uL Baso # (0.0-0.2) K/uL Neutrophils % (Manual) (50-75) % Band Neutrophils % (0-2) % Lymphocytes % (Manual) (20-40) % Monocytes % (Manual) (0-10) % Basophils % (Manual) (0-2) % Toxic Granulation Platelet Estimate (NORMAL) Large Platelets Giant Platelets Hypochromasia (manual) Poikilocytosis (manual Anisocytosis (manual) Target Cells Sodium (132-148) mmol/L Potassium (3.6-5.2) mmol/L Chloride (98-107) mmol/L Carbon Dioxide (22-30) mmol/L Anion Gap (10-20) BUN (7-17) mg/dL Creatinine (0.7-1.2) MG/DL Est GFR ( Amer) Est GFR (Non-Af Amer) POC Glucose (mg/dL) 140 H 73 117 H (65-110) mg/dL Random Glucose (65-105) mg/dL Calcium (8.6-10.4) mg/dl Phosphorus (2.5-4.5) mg/dL Magnesium (1.6-2.3) mg/dL Total Bilirubin (0.2-1.3) mg/dL AST (14-36) U/L ALT (9-52) U/L Alkaline Phosphatase (38-126) U/L Total Protein (6.3-8.3) g/dL Albumin (3.5-5.0) g/dL Globulin (2.2-3.9) gm/dL Albumin/Globulin Ratio (1.0-2.1) Smooth Muscle Ab Titer (< 1:20) Titer Anti-Smooth Muscle Ab (Negative) 10/26/16 Range/Units 15:32 WBC (4.8-10.8) K/uL RBC (3.80-5.20) Mil/uL Hgb (11.0-16.0) g/dL Hct (34.0-47.0) % MCV (81.0-99.0) fL MCH (27.0-31.0) pg MCHC (33.0-37.0) g/dL RDW (11.5-14.5) % Plt Count (130-400) K/uL MPV (7.2-11.7) fL Neut % (Auto) (50.0-75.0) % Lymph % (Auto) (20.0-40.0) % [place] % (Auto) (0.0-10.0) % Eos % (Auto) (0.0-4.0) % Baso % (Auto) (0.0-2.0) % Neut # (1.8-7.0) K/uL Lymph # (1.0-4.3) K/uL [place] # (0.0-0.8) K/uL Eos # (0.0-0.7) K/uL Baso # (0.0-0.2) K/uL Neutrophils % (Manual) (50-75) % Band Neutrophils % (0-2) % Lymphocytes % (Manual) (20-40) % Monocytes % (Manual) (0-10) % Basophils % (Manual) (0-2) % Toxic Granulation Platelet Estimate (NORMAL) Large Platelets Giant Platelets Hypochromasia (manual) Poikilocytosis (manual Anisocytosis (manual) Target Cells Sodium (132-148) mmol/L Potassium (3.6-5.2) mmol/L Chloride (98-107) mmol/L Carbon Dioxide (22-30) mmol/L Anion Gap (10-20) BUN (7-17) mg/dL Creatinine (0.7-1.2) MG/DL Est GFR ( Amer) Est GFR (Non-Af Amer) POC Glucose (mg/dL) (65-110) mg/dL Random Glucose (65-105) mg/dL Calcium (8.6-10.4) mg/dl Phosphorus (2.5-4.5) mg/dL Magnesium (1.6-2.3) mg/dL Total Bilirubin (0.2-1.3) mg/dL AST (14-36) U/L ALT (9-52) U/L Alkaline Phosphatase (38-126) U/L Total Protein (6.3-8.3) g/dL Albumin (3.5-5.0) g/dL Globulin (2.2-3.9) gm/dL Albumin/Globulin Ratio (1.0-2.1) Smooth Muscle Ab Titer 1:40 H (< 1:20) Titer Anti-Smooth Muscle Ab Positive H (Negative) Laboratory Results - last 24 hr 10/26/16 10/31/16 10/31/16 15:32 11:34 18:05 WBC RBC Hgb Hct MCV MCH MCHC RDW Plt Count MPV Neut % (Auto) Lymph % (Auto) [place] % (Auto) Eos % (Auto) Baso % (Auto) Neut # Lymph # [place]ff[place] # Eos # Baso # Neutrophils % (Manual) Band Neutrophils % Lymphocytes % (Manual) Monocytes % (Manual) Basophils % (Manual) Toxic Granulation Platelet Estimate Large Platelets Giant Platelets Hypochromasia (manual) Poikilocytosis (manual Anisocytosis (manual) Target Cells Sodium Potassium Chloride Carbon Dioxide Anion Gap BUN Creatinine Est GFR ( Amer) Est GFR (Non-Af Amer) POC Glucose (mg/dL) 117 H 73 Random Glucose Calcium Phosphorus Magnesium Total Bilirubin AST ALT Alkaline Phosphatase Total Protein Albumin Globulin Albumin/Globulin Ratio Smooth Muscle Ab Titer 1:40 H Anti-Smooth Muscle Ab Positive H 10/31/16 11/01/16 11/01/16 23:58 05:11 06:11 WBC RBC Hgb Hct MCV MCH MCHC RDW Plt Count MPV Neut % (Auto) Lymph % (Auto) [place] % (Auto) Eos % (Auto) Baso % (Auto) Neut # Lymph # [place]ff[place] # Eos # Baso # Neutrophils % (Manual) Band Neutrophils % Lymphocytes % (Manual) Monocytes % (Manual) Basophils % (Manual) Toxic Granulation Platelet Estimate Large Platelets Giant Platelets Hypochromasia (manual) Poikilocytosis (manual Anisocytosis (manual) Target Cells Sodium 134 Potassium 3.5 L Chloride 97 L Carbon Dioxide 29 Anion Gap 12 BUN 20 H Creatinine 1.2 Est GFR ( Amer) 53 Est GFR (Non-Af Amer) 44 POC Glucose (mg/dL) 140 H 169 H Random Glucose 144 H Calcium 8.0 L Phosphorus 2.7 Magnesium 1.7 Total Bilirubin 6.6 H AST 50 H ALT 23 Alkaline Phosphatase 255 H D Total Protein 6.2 L Albumin 2.1 L Globulin 4.1 H Albumin/Globulin Ratio 0.5 L Smooth Muscle Ab Titer Anti-Smooth Muscle Ab 11/01/16 06:11 WBC 13.5 H RBC 2.69 L Hgb 8.5 L Hct 25.7 L MCV 95.6 MCH 31.7 H MCHC 33.1 RDW 16.9 H Plt Count 110 L MPV 10.4 Neut % (Auto) 82.8 H Lymph % (Auto) 8.9 L [place] % (Auto) 6.6 Eos % (Auto) 0.6 Baso % (Auto) 1.1 Neut # 11.2 H Lymph # 1.2 [place]ffie # 0.9 H Eos # 0.1 Baso # 0.1 Neutrophils % (Manual) 86 H Band Neutrophils % 1 Lymphocytes % (Manual) 6 L Monocytes % (Manual) 5 Basophils % (Manual) 2 Toxic Granulation Present Platelet Estimate Slightly decreased L Large Platelets Present Giant Platelets Present Hypochromasia (manual) Slight Poikilocytosis (manual Slight Anisocytosis (manual) Slight Target Cells Slight Sodium Potassium Chloride Carbon Dioxide Anion Gap BUN Creatinine Est GFR ( Amer) Est GFR (Non-Af Amer) POC Glucose (mg/dL) Random Glucose Calcium Phosphorus Magnesium Total Bilirubin AST ALT Alkaline Phosphatase Total Protein Albumin Globulin Albumin/Globulin Ratio Smooth Muscle Ab Titer Anti-Smooth Muscle Ab Fingerstick Blood Sugar Results: 169 Review of Systems - Review of Systems Systems not reviewed;Unavailable: Altered Mental Status Assessment/Plan - Assessment and Plan (Free Text) Assessment: Assessment: 76F with history of HTN, DM, ESRD; presented with anemia and brbpr; resolving. Plan: Neuro: -GCS 9T - at baseline likely 2/2 metabolic encephalopathy Pulm: -trach on vent -CT chest shows b/l pleural effusions R>L with subsegmental atelectasis CV: -BP mildly improved - systolic now 100-110s - off Levophed. Can restart PRN if needed -Dr Long on board. Pt high risk for any procedure but can proceed if clinical indicated -left hand with ischemic necrosis - consult placed for vasc Dr Buck - likely nothing to do Heme: - H/H (11/01) 8.6/25.7 - will cont to monitor H/H and for rectal bleed - continue transfuse PRN for HgB <7 Renal: - ESRD - HD as per Dr Mcfarland - Dr Trent on consult Endo: -Insulin sliding scale GI: - NGT for enteral feedings -Consult IR for PEG placement given Ascites - Protonix drip for GI bleed - CT shows significant colitis at rectosigmoid junction - Flexible sigmoidoscopy at bedside 10/28/16 shows ischemic colitis - Fam declined sx - Sx and GI signed off ID: - PO Vanc and Merrem Pt chronically ill, prognosis very poor DVT proph - SCDs, no anti-coagulation due to acute bleed GI proph - Protonix 40mg IVP daily Code status - Full Case discussed with Dr. Yordy Bello, PGY3 <Jonatan Scales S - Last Filed: 11/01/16 16:42> CCU Objective - Vital Signs / Intake & Output Vital Signs (Last 4 hours): Vital Signs Pulse Resp BP Pulse Ox 11/01/16 16:00 82 17 100 11/01/16 15:58 83 19 104/40 L 100 11/01/16 15:00 80 17 11/01/16 14:58 99 H 20 88/34 L 11/01/16 14:06 81 14 99/39 L 100 11/01/16 14:00 79 20 100 11/01/16 13:58 78 17 88/38 L 100 11/01/16 13:00 78 18 100 11/01/16 12:58 79 15 97/31 L 100 Intake and Output (Last 8hrs): Intake & Output 0711/01/16 11/01/16 06:59 14:59 22:59 Intake Total 400 281 70 Output Total 50 0 0 Balance 350 281 70 Weight 115 lb Intake: Tube Feeding 280 281 70 Other 120 Output: Urine 50 0 0 Urine, Voided 50 0 0 - Medications Active Medications: Active Medications Generic Name Dose Route Start Last Admin Trade Name Freq PRN Reason Stop Dose Admin Epoetin Sly 10,000 unit 10/26/16 15:30 10/31/16 09:36 Procrit IV 10,000 unit MWF [facility] Administration Meropenem 500 mg/ Sodium 100 mls @ 100 mls/hr 10/25/16 19:00 10/31/16 18:01 Chloride IVPB 100 mls/hr Q24H [facility] Administration Insulin Human Regular 0 unit 10/26/16 06:00 11/01/16 12:34 Novolin R SC Not Given Q6 [facility] Protocol Levothyroxine Sodium 200 mcg 10/26/16 06:30 11/01/16 05:49 Synthroid PO 200 mcg DAILY@0630 [facility] Administration Lorazepam 1 mg 10/26/16 00:01 Ativan IVP Q4 PRN Agitation Midodrine 5 mg 11/01/16 14:00 11/01/16 14:06 Proamatine PO 5 mg TID [facility] Administration Pantoprazole Sodium 40 mg 10/31/16 17:45 11/01/16 10:04 Protonix Susp NG 40 mg DAILY [facility] Administration Vancomycin HCl 125 mg 10/25/16 19:00 11/01/16 12:36 Vancocin (Oral Or Rectal Use) PO 125 mg Q6H [facility] Administration - Patient Studies Lab Studies: Lab Studies 11/01/16 11/01/16 11/01/16 Range/Units 11:47 06:11 06:11 WBC 13.5 H (4.8-10.8) K/uL RBC 2.69 L (3.80-5.20) Mil/uL Hgb 8.5 L (11.0-16.0) g/dL Hct 25.7 L (34.0-47.0) % MCV 95.6 (81.0-99.0) fL MCH 31.7 H (27.0-31.0) pg MCHC 33.1 (33.0-37.0) g/dL RDW 16.9 H (11.5-14.5) % Plt Count 110 L (130-400) K/uL MPV 10.4 (7.2-11.7) fL Neut % (Auto) 82.8 H (50.0-75.0) % Lymph % (Auto) 8.9 L (20.0-40.0) % [place] % (Auto) 6.6 (0.0-10.0) % Eos % (Auto) 0.6 (0.0-4.0) % Baso % (Auto) 1.1 (0.0-2.0) % Neut # 11.2 H (1.8-7.0) K/uL Lymph # 1.2 (1.0-4.3) K/uL [place] # 0.9 H (0.0-0.8) K/uL Eos # 0.1 (0.0-0.7) K/uL Baso # 0.1 (0.0-0.2) K/uL Neutrophils % (Manual) 86 H (50-75) % Band Neutrophils % 1 (0-2) % Lymphocytes % (Manual) 6 L (20-40) % Monocytes % (Manual) 5 (0-10) % Basophils % (Manual) 2 (0-2) % Toxic Granulation Present Platelet Estimate Slightly decreased L (NORMAL) Large Platelets Present Giant Platelets Present Hypochromasia (manual) Slight Poikilocytosis (manual Slight Anisocytosis (manual) Slight Target Cells Slight Sodium 134 (132-148) mmol/L Potassium 3.5 L (3.6-5.2) mmol/L Chloride 97 L (98-107) mmol/L Carbon Dioxide 29 (22-30) mmol/L Anion Gap 12 (10-20) BUN 20 H (7-17) mg/dL Creatinine 1.2 (0.7-1.2) MG/DL Est GFR ( Amer) 53 Est GFR (Non-Af Amer) 44 POC Glucose (mg/dL) 198 H (65-110) mg/dL Random Glucose 144 H (65-105) mg/dL Calcium 8.0 L (8.6-10.4) mg/dl Phosphorus 2.7 (2.5-4.5) mg/dL Magnesium 1.7 (1.6-2.3) mg/dL Total Bilirubin 6.6 H (0.2-1.3) mg/dL AST 50 H (14-36) U/L ALT 23 (9-52) U/L Alkaline Phosphatase 255 H D (38-126) U/L Total Protein 6.2 L (6.3-8.3) g/dL Albumin 2.1 L (3.5-5.0) g/dL Globulin 4.1 H (2.2-3.9) gm/dL Albumin/Globulin Ratio 0.5 L (1.0-2.1) 11/01/16 10/31/16 10/31/16 Range/Units 05:11 23:58 18:05 WBC (4.8-10.8) K/uL RBC (3.80-5.20) Mil/uL Hgb (11.0-16.0) g/dL Hct (34.0-47.0) % MCV (81.0-99.0) fL MCH (27.0-31.0) pg MCHC (33.0-37.0) g/dL RDW (11.5-14.5) % Plt Count (130-400) K/uL MPV (7.2-11.7) fL Neut % (Auto) (50.0-75.0) % Lymph % (Auto) (20.0-40.0) % [place] % (Auto) (0.0-10.0) % Eos % (Auto) (0.0-4.0) % Baso % (Auto) (0.0-2.0) % Neut # (1.8-7.0) K/uL Lymph # (1.0-4.3) K/uL [place] # (0.0-0.8) K/uL Eos # (0.0-0.7) K/uL Baso # (0.0-0.2) K/uL Neutrophils % (Manual) (50-75) % Band Neutrophils % (0-2) % Lymphocytes % (Manual) (20-40) % Monocytes % (Manual) (0-10) % Basophils % (Manual) (0-2) % Toxic Granulation Platelet Estimate (NORMAL) Large Platelets Giant Platelets Hypochromasia (manual) Poikilocytosis (manual Anisocytosis (manual) Target Cells Sodium (132-148) mmol/L Potassium (3.6-5.2) mmol/L Chloride (98-107) mmol/L Carbon Dioxide (22-30) mmol/L Anion Gap (10-20) BUN (7-17) mg/dL Creatinine (0.7-1.2) MG/DL Est GFR ( Amer) Est GFR (Non-Af Amer) POC Glucose (mg/dL) 169 H 140 H 73 (65-110) mg/dL Random Glucose (65-105) mg/dL Calcium (8.6-10.4) mg/dl Phosphorus (2.5-4.5) mg/dL Magnesium (1.6-2.3) mg/dL Total Bilirubin (0.2-1.3) mg/dL AST (14-36) U/L ALT (9-52) U/L Alkaline Phosphatase (38-126) U/L Total Protein (6.3-8.3) g/dL Albumin (3.5-5.0) g/dL Globulin (2.2-3.9) gm/dL Albumin/Globulin Ratio (1.0-2.1) Laboratory Results - last 24 hr 10/31/16 10/31/16 11/01/16 18:05 23:58 05:11 WBC RBC Hgb Hct MCV MCH MCHC RDW Plt Count MPV Neut % (Auto) Lymph % (Auto) [place] % (Auto) Eos % (Auto) Baso % (Auto) Neut # Lymph # [place] # Eos # Baso # Neutrophils % (Manual) Band Neutrophils % Lymphocytes % (Manual) Monocytes % (Manual) Basophils % (Manual) Toxic Granulation Platelet Estimate Large Platelets Giant Platelets Hypochromasia (manual) Poikilocytosis (manual Anisocytosis (manual) Target Cells Sodium Potassium Chloride Carbon Dioxide Anion Gap BUN Creatinine Est GFR ( Amer) Est GFR (Non-Af Amer) POC Glucose (mg/dL) 73 140 H 169 H Random Glucose Calcium Phosphorus Magnesium Total Bilirubin AST ALT Alkaline Phosphatase Total Protein Albumin Globulin Albumin/Globulin Ratio 11/01/16 11/01/16 11/01/16 06:11 06:11 11:47 WBC 13.5 H RBC 2.69 L Hgb 8.5 L Hct 25.7 L MCV 95.6 MCH 31.7 H MCHC 33.1 RDW 16.9 H Plt Count 110 L MPV 10.4 Neut % (Auto) 82.8 H Lymph % (Auto) 8.9 L [place] % (Auto) 6.6 Eos % (Auto) 0.6 Baso % (Auto) 1.1 Neut # 11.2 H Lymph # 1.2 [place] # 0.9 H Eos # 0.1 Baso # 0.1 Neutrophils % (Manual) 86 H Band Neutrophils % 1 Lymphocytes % (Manual) 6 L Monocytes % (Manual) 5 Basophils % (Manual) 2 Toxic Granulation Present Platelet Estimate Slightly decreased L Large Platelets Present Giant Platelets Present Hypochromasia (manual) Slight Poikilocytosis (manual Slight Anisocytosis (manual) Slight Target Cells Slight Sodium 134 Potassium 3.5 L Chloride 97 L Carbon Dioxide 29 Anion Gap 12 BUN 20 H Creatinine 1.2 Est GFR ( Amer) 53 Est GFR (Non-Af Amer) 44 POC Glucose (mg/dL) 198 H Random Glucose 144 H Calcium 8.0 L Phosphorus 2.7 Magnesium 1.7 Total Bilirubin 6.6 H AST 50 H ALT 23 Alkaline Phosphatase 255 H D Total Protein 6.2 L Albumin 2.1 L Globulin 4.1 H Albumin/Globulin Ratio 0.5 L Assessment/Plan (1) Lower GI bleed Current Visit: Yes Status: Acute (2) ESRD (end stage renal disease) on dialysis Current Visit: No Status: Chronic Attending/Attestation - Attestation I have personally seen and examined this patient.: Yes I have fully participated in the care of the patient.: Yes I have reviewed all pertinent clinical information: Yes Notes (Text): 11/01/16 16:41 Patient seen and examined in the intensive care unit. Case discussed with staff in the morning. On ventilatory support Lethargic No active bleeding noted H&H stable Family refusing surgery for ischemic changes/gangrenous changes of hand Spoke with family at length
--- NOTE | 2016-11-01 13:05 | CP.PCM.PN ---
Subjective - Date & Time of Evaluation Date of Evaluation: 11/01/16 Time of Evaluation: 13:02 - Subjective Subjective: seen and examined notes reviewed. no surgical intervention planned pt confused, daughter at bedside bp in low 100s Objective - Vital Signs/Intake and Output Vital Signs (last 24 hours): Temp Pulse Resp BP Pulse Ox 97.5 F L 80 16 100/31 L 100 11/01/16 11:56 11/01/16 09:00 11/01/16 09:00 11/01/16 07:58 11/01/16 09:00 Intake and Output: 11/01/16 11/01/16 06:59 18:59 Intake Total 600 210 Output Total 50 0 Balance 550 210 - Medications Medications: Current Medications Epoetin Sly (Procrit) 10,000 unit IV MWF [facility] Last Admin: 10/31/16 09:36 Dose: 10,000 unit Meropenem 500 mg/ Sodium (Chloride) 100 mls @ 100 mls/hr IVPB Q24H [facility] Last Admin: 10/31/16 18:01 Dose: 100 mls/hr Insulin Human Regular (Novolin R) 0 unit SC Q6 [facility] PRN Reason: Protocol Last Admin: 11/01/16 12:34 Dose: Not Given Levothyroxine Sodium (Synthroid) 200 mcg PO DAILY@0630 [facility] Last Admin: 11/01/16 05:49 Dose: 200 mcg Lorazepam (Ativan) 1 mg IVP Q4 PRN PRN Reason: Agitation Pantoprazole Sodium (Protonix Susp) 40 mg NG DAILY [facility] Last Admin: 11/01/16 10:04 Dose: 40 mg Vancomycin HCl (Vancocin (Oral Or Rectal Use)) 125 mg PO Q6H [facility] Last Admin: 11/01/16 12:36 Dose: 125 mg - Labs Labs: 11/01/16 06:11 11/01/16 06:11 PT 19.5 SECONDS (9.7-12.2) H 10/28/16 08:07 INR 1.7 10/28/16 08:07 APTT 49 SECONDS (21-34) H 10/25/16 16:33 - Constitutional Appears: No Acute Distress, Older Than Stated Age, Cachectic, Chronically Ill - Head Exam Head Exam: NORMAL INSPECTION - Eye Exam Eye Exam: Normal appearance - ENT Exam ENT Exam: Mucous Membranes Moist, Normal Exam (ng tube) - Respiratory Exam Respiratory Exam: Decreased Breath Sounds, NORMAL BREATHING PATTERN - Cardiovascular Exam Cardiovascular Exam: Tachycardia, REGULAR RHYTHM - GI/Abdominal Exam GI & Abdominal Exam: Distended (ascites), Soft - Extremities Exam Extremities Exam: Pedal Edema Assessment and Plan (1) Lower GI bleed Status: Acute (2) Diabetes mellitus Status: Acute (3) CHF (congestive heart failure) Status: Chronic (4) ESRD (end stage renal disease) on dialysis Status: Chronic - Assessment and Plan (Free Text) Assessment: # ischemic colitis # esrd # hypotension # steal syndrome, ischemic left upper ext # anemia / GI bleed plan: hd tomorrow, low blood flows given steal. aggressive uf as tolerated. maintain maps> 65 midodrine
--- NOTE | 2016-11-01 14:50 | CP.PCM.CON ---
History of Present Illness - History of Present Illness History of Present Illness: Surgery: Dr. Buck CC: finger pain Reason for consult: ischemic changes to left fingers HPI: Patient is a 76 y/o female significant pmh of respiratory failure w/ tracheostomy requiring ventilation assistance as well as ESRD on HD through Left are AVF currently in ICU being treated for ischemic bowel now w/ presence of ischemic changes to left finger tips. Patient daughter Marc at bedside who gives most history. Patient was in [facility] recently for evaluation by liver specialist was found to have hypotension and admitted for sepsis. Patient was found to have fungal empyema and was drained at that facility. Eventually patient was discharged and sent to [facility]. Daughter states that patient's pulse ox was on the tip of the left middle finger throughout the hospital stay at [facility] and eventually developed a small pressure wound. Over time the wound did not heal and not the daughter notices the finger tip turning black. PMH: ESRD on HD through L arm AVF , CAD s/p stents, DM, recurrent B/L pleural effusions, hypothyroidism, hx empyema of R lung w/ recent drainage at outside facility. PSH: CABG, coronary stents, AVF of LUE, recurrent thoracentesis, recent chest tube placement and removal All: Sulfa, mites SH: Denies tobacco, ETOH, or illicit drug use/history of Review of Systems - Review of Systems Review of Systems: unobtainable Past Patient History - Infectious Disease Hx of Infectious Diseases: None - Past Medical History & Family History Past Medical History?: Yes - Past Social History Smoking Status: Never Smoked - CARDIAC Hx Congestive Heart Failure: Yes Hx Hypercholesterolemia: Yes Hx Hypertension: Yes Hx Peripheral Edema: Yes - PULMONARY Hx Respiratory Disorders: Yes Other/Comment: hx of thoracentesis,recurrent pleural effusion - NEUROLOGICAL Hx Neurological Disorder: No - HEENT Hx HEENT Problems: Yes Other/Comment: hard of hearing - RENAL Hx Chronic Kidney Disease: Yes - ENDOCRINE/METABOLIC Hx Hypothyroidism: Yes - HEMATOLOGICAL/ONCOLOGICAL Hx Blood Disorders: No - INTEGUMENTARY Hx Dermatological Problems: No - MUSCULOSKELETAL/RHEUMATOLOGICAL Hx Musculoskeletal Disorders: No Hx Falls: No - GASTROINTESTINAL Hx Crohn's Disease: No Hx Diverticulitis: No - GENITOURINARY/GYNECOLOGICAL Hx Genitourinary Disorders: Yes Hx Urinary Tract Infection: Yes (2006) Other/Comment: ureteral stent placed 06/2015 - PSYCHIATRIC Hx Substance Use: No - SURGICAL HISTORY Hx Coronary Artery Bypass Graft: Yes (2001) Hx Coronary Stent: Yes (x3 in 2006) - ANESTHESIA Hx Anesthesia: Yes Hx Anesthesia Reactions: No Hx Malignant Hyperthermia: No Meds Allergies/Adverse Reactions: Allergies Allergy/AdvReac Type Severity Reaction Status Date / Time Sulfa (Sulfonamide Allergy RASH Verified 10/25/16 15:46 Antibiotics) - Medications Medications: Current Medications Epoetin Sly (Procrit) 10,000 unit IV MWF [facility] Last Admin: 10/31/16 09:36 Dose: 10,000 unit Meropenem 500 mg/ Sodium (Chloride) 100 mls @ 100 mls/hr IVPB Q24H [facility] Last Admin: 10/31/16 18:01 Dose: 100 mls/hr Insulin Human Regular (Novolin R) 0 unit SC Q6 REKHA PRN Reason: Protocol Last Admin: 11/01/16 12:34 Dose: Not Given Levothyroxine Sodium (Synthroid) 200 mcg PO DAILY@0630 [facility] Last Admin: 11/01/16 05:49 Dose: 200 mcg Lorazepam (Ativan) 1 mg IVP Q4 PRN PRN Reason: Agitation Midodrine (Proamatine) 5 mg PO TID [facility] Last Admin: 11/01/16 14:06 Dose: 5 mg Pantoprazole Sodium (Protonix Susp) 40 mg NG DAILY [facility] Last Admin: 11/01/16 10:04 Dose: 40 mg Vancomycin HCl (Vancocin (Oral Or Rectal Use)) 125 mg PO Q6H [facility] Last Admin: 11/01/16 12:36 Dose: 125 mg Physical Exam - Constitutional Appears: Cachectic, Chronically Ill - Head Exam Head Exam: ATRAUMATIC, NORMOCEPHALIC - ENT Exam ENT Exam: Mucous Membranes Dry Additional comments: poor dentation - Respiratory Exam Respiratory Exam: absent: Respiratory Distress Additional comments: trach collar and tracheostomy in place - Cardiovascular Exam Cardiovascular Exam: REGULAR RHYTHM. absent: Tachycardia - GI/Abdominal Exam GI & Abdominal Exam: Soft. absent: Distended, Tenderness - Extremities Exam Extremities exam: Negative for: calf tenderness Additional comments: left arm AVF w/ palpable thrill, left hand warm but finger tips are cool. Dry necrosis noted to middle finger tip w/ extension to most distal knuckle, including the nail bed. ulnar and radial pulses are nonpalpable but signal is appreciated w/ doppler. When compression of AVF radial pulse signal increases in intensity. - Skin Skin Exam: Dry, Intact Results - Vital Signs Recent Vital Signs: Last Vital Signs Temp 97.5 F L 11/01/16 11:56 Pulse 80 11/01/16 09:00 Resp 16 11/01/16 09:00 BP 100/31 L 11/01/16 07:58 Pulse Ox 100 11/01/16 09:00 - Labs Result Diagrams: 11/01/16 06:11 11/01/16 06:11 Labs: Laboratory Results - last 24 hr 10/26/16 10/31/16 10/31/16 15:32 18:05 23:58 WBC RBC Hgb Hct MCV MCH MCHC RDW Plt Count MPV Neut % (Auto) Lymph % (Auto) [place] % (Auto) Eos % (Auto) Baso % (Auto) Neut # Lymph # [place] # Eos # Baso # Neutrophils % (Manual) Band Neutrophils % Lymphocytes % (Manual) Monocytes % (Manual) Basophils % (Manual) Toxic Granulation Platelet Estimate Large Platelets Giant Platelets Hypochromasia (manual) Poikilocytosis (manual Anisocytosis (manual) Target Cells Sodium Potassium Chloride Carbon Dioxide Anion Gap BUN Creatinine Est GFR ( Amer) Est GFR (Non-Af Amer) POC Glucose (mg/dL) 73 140 H Random Glucose Calcium Phosphorus Magnesium Total Bilirubin AST ALT Alkaline Phosphatase Total Protein Albumin Globulin Albumin/Globulin Ratio Smooth Muscle Ab Titer 1:40 H Anti-Smooth Muscle Ab Positive H 11/01/16 11/01/16 11/01/16 05:11 06:11 06:11 WBC 13.5 H RBC 2.69 L Hgb 8.5 L Hct 25.7 L MCV 95.6 MCH 31.7 H MCHC 33.1 RDW 16.9 H Plt Count 110 L MPV 10.4 Neut % (Auto) 82.8 H Lymph % (Auto) 8.9 L [place] % (Auto) 6.6 Eos % (Auto) 0.6 Baso % (Auto) 1.1 Neut # 11.2 H Lymph # 1.2 [place] # 0.9 H Eos # 0.1 Baso # 0.1 Neutrophils % (Manual) 86 H Band Neutrophils % 1 Lymphocytes % (Manual) 6 L Monocytes % (Manual) 5 Basophils % (Manual) 2 Toxic Granulation Present Platelet Estimate Slightly decreased L Large Platelets Present Giant Platelets Present Hypochromasia (manual) Slight Poikilocytosis (manual Slight Anisocytosis (manual) Slight Target Cells Slight Sodium 134 Potassium 3.5 L Chloride 97 L Carbon Dioxide 29 Anion Gap 12 BUN 20 H Creatinine 1.2 Est GFR ( Amer) 53 Est GFR (Non-Af Amer) 44 POC Glucose (mg/dL) 169 H Random Glucose 144 H Calcium 8.0 L Phosphorus 2.7 Magnesium 1.7 Total Bilirubin 6.6 H AST 50 H ALT 23 Alkaline Phosphatase 255 H D Total Protein 6.2 L Albumin 2.1 L Globulin 4.1 H Albumin/Globulin Ratio 0.5 L Smooth Muscle Ab Titer Anti-Smooth Muscle Ab 11/01/16 11:47 WBC RBC Hgb Hct MCV MCH MCHC RDW Plt Count MPV Neut % (Auto) Lymph % (Auto) [place] % (Auto) Eos % (Auto) Baso % (Auto) Neut # Lymph # [place] # Eos # Baso # Neutrophils % (Manual) Band Neutrophils % Lymphocytes % (Manual) Monocytes % (Manual) Basophils % (Manual) Toxic Granulation Platelet Estimate Large Platelets Giant Platelets Hypochromasia (manual) Poikilocytosis (manual Anisocytosis (manual) Target Cells Sodium Potassium Chloride Carbon Dioxide Anion Gap BUN Creatinine Est GFR ( Amer) Est GFR (Non-Af Amer) POC Glucose (mg/dL) 198 H Random Glucose Calcium Phosphorus Magnesium Total Bilirubin AST ALT Alkaline Phosphatase Total Protein Albumin Globulin Albumin/Globulin Ratio Smooth Muscle Ab Titer Anti-Smooth Muscle Ab Assessment & Plan - Assessment and Plan (Free Text) Assessment: 76F w/ ischemic left middle finger tip 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 Heber CENTENOjose alberto PGY3
[2016-11-01] MEDS: Meropenem 500 MG in Sodium Chloride 0.9% 100 ML IVPB SCH (18:12)
--- NOTE | 2016-11-01 22:49 | CP.PCM.PN ---
Subjective - Date & Time of Evaluation Date of Evaluation: 11/01/16 Time of Evaluation: 19:00 - Subjective Subjective: Patient seen and evaluated Patient condition remains poor Essentially unchanged Objective - Vital Signs/Intake and Output Vital Signs (last 24 hours): Temp Pulse Resp BP Pulse Ox 97.7 F 76 16 92/38 L 100 11/01/16 20:00 11/01/16 21:58 11/01/16 21:58 11/01/16 21:58 11/01/16 21:58 Intake and Output: 11/01/16 11/02/16 18:59 06:59 Intake Total 351 205 Output Total 0 0 Balance 351 205 - Medications Medications: Current Medications Epoetin Sly (Procrit) 10,000 unit IV MWF [facility] Last Admin: 10/31/16 09:36 Dose: 10,000 unit Meropenem 500 mg/ Sodium (Chloride) 100 mls @ 100 mls/hr IVPB Q24H [facility] Last Admin: 11/01/16 18:12 Dose: 100 mls/hr Insulin Human Regular (Novolin R) 0 unit SC Q6 REKHA PRN Reason: Protocol Last Admin: 11/01/16 18:13 Dose: Not Given Levothyroxine Sodium (Synthroid) 200 mcg PO DAILY@0630 [facility] Last Admin: 11/01/16 05:49 Dose: 200 mcg Lorazepam (Ativan) 1 mg IVP Q4 PRN PRN Reason: Agitation Midodrine (Proamatine) 5 mg PO TID [facility] Last Admin: 11/01/16 17:17 Dose: 5 mg Pantoprazole Sodium (Protonix Susp) 40 mg NG DAILY [facility] Last Admin: 11/01/16 10:04 Dose: 40 mg Vancomycin HCl (Vancocin (Oral Or Rectal Use)) 125 mg PO Q6H [facility] Last Admin: 11/01/16 18:11 Dose: 125 mg - Labs Labs: 11/01/16 06:11 11/01/16 06:11 PT 19.5 SECONDS (9.7-12.2) H 10/28/16 08:07 INR 1.7 10/28/16 08:07 APTT 49 SECONDS (21-34) H 10/25/16 16:33
[2016-11-02] MEDS: (Novolin R) Insulin Human Regular 100 units/ml vial SC SCH ×4 (00:13→18:28)
[2016-11-02] MEDS: Vancomycin 125 MG/5 ML SOLN (ORAL/RECTAL) PO SCH ×3 (00:26→14:56)
[2016-11-02] MEDS: Levothyroxine 200 MCG TAB PO SCH (05:52)
[2016-11-02 06:28] LABS: BASO # 0.1 K/uL (0.0-0.2); BASO % 1.1 % (0.0-2.0); EOS # 0.1 K/uL (0.0-0.7); EOS % 1.1 % (0.0-4.0); HEMATOCRIT 26.2 % (34.0-47.0); LYMPH # 1.5 K/uL (1.0-4.3); LYMPH % 11.4 % (20.0-40.0); MEAN CELL VOLUME 96.2 fL (81.0-99.0); MEAN CORPUSCULAR HEMOGLOBIN 31.6 pg (27.0-31.0); MEAN CORPUSCULAR HGB CONC 32.8 g/dL (33.0-37.0); MONO # 1.3 K/uL (0.0-0.8); MONO % 9.8 % (0.0-10.0); RED CELL DISTRIBUTION WIDTH 17.6 % (11.5-14.5); WHITE BLOOD COUNT 12.9 K/uL (4.8-10.8)
[2016-11-02 06:40] LABS: POTASSIUM 3.5 mmol/L (3.6-5.2)
[2016-11-02 06:42] LABS: ALB/GLOB RATIO 0.5 (1.0-2.1); BILIRUBIN,TOTAL 6.4 mg/dL (0.2-1.3); TOTAL PROTEIN 6.5 g/dL (6.3-8.3)
[2016-11-02 06:43] LABS: CALCIUM 8.1 mg/dl (8.6-10.4); MAGNESIUM 1.8 mg/dL (1.6-2.3); PHOSPHOROUS 3.8 mg/dL (2.5-4.5)
--- NOTE | 2016-11-02 07:59 | CP.CCUPN ---
<Javier Bello Bk - Last Filed: 11/02/16 08:00> CCU Subjective - Physician Review Events Since Last Encounter (Free Text): 11/02/16 07:56 Pt S&E. DEVI. Continues to have regular stool output with no blood. Pressure has been stable. No further inotropic support needed. Pt remains on tube feeds. Possible PEG tube under flouroscopy on monday pending IR evaluation. Pt clear for transfer to telemetry CCU Objective - Vital Signs / Intake & Output Vital Signs (Last 4 hours): Vital Signs Temp 11/02/16 04:00 98 F Intake and Output (Last 8hrs): Intake & Output 11/01/16 11/02/16 11/02/16 22:59 06:59 14:59 Intake Total 275 440 Output Total 0 100 Balance 275 340 Weight 121 lb 14.4 oz Intake: Intake, IV Amount 100 Right PICC 100 Tube Feeding 175 280 Other 160 Output: Urine 0 0 Urine, Voided 0 0 Stool 100 - Physical Exam Head: Positive for: Atraumatic Mouth: Positive for: Dry Nose (Internal): Positive for: Other (NGT in place) Neck: Positive for: Other (trach in place) Respiratory/Chest: Positive for: Rhonchi. Negative for: Clear to Auscultation ( decreased in RLL), Respiratory Distress, Accessory Muscle Use Cardiovascular: Positive for: Regular Rate and Rhythm, Normal S1, S2, Other ( hypotension improved, systolic 100-110s). Negative for: Murmurs, Tachycardic, Bradycardic Abdomen: Positive for: Tenderness (grimaces on palpation but improved), Distention (improved). Negative for: Peritoneal Signs, Hernias Rectal: Negative for: Gross Blood Upper Extremity: Positive for: Cyanosis, Temperature Abnormalties, Other (cold fingers, ischemic 3rd digit on left hand ). Negative for: NORMAL PULSES, Neurovascularly Intact, Capillary Refill < 2s Lower Extremity: Positive for: Edema Psychiatric: Negative for: Alert - Medications Active Medications: Active Medications Generic Name Dose Route Start Last Admin Trade Name Freq PRN Reason Stop Dose Admin Epoetin Sly 10,000 unit 10/26/16 15:30 10/31/16 09:36 Procrit IV 10,000 unit MWF [facility] Administration Meropenem 500 mg/ Sodium 100 mls @ 100 mls/hr 10/25/16 19:00 11/01/16 18:12 Chloride IVPB 100 mls/hr Q24H [facility] Administration Insulin Human Regular 0 unit 10/26/16 06:00 11/02/16 06:06 Novolin R SC Not Given Q6 [facility] Protocol Levothyroxine Sodium 200 mcg 10/26/16 06:30 11/02/16 05:52 Synthroid PO 200 mcg DAILY@0630 [facility] Administration Midodrine 5 mg 11/01/16 14:00 11/01/16 17:17 Proamatine PO 5 mg TID RE[facility] Administration Pantoprazole Sodium 40 mg 10/31/16 17:45 11/01/16 10:04 Protonix Susp NG 40 mg DAILY [facility] Administration Vancomycin HCl 125 mg 10/25/16 19:00 11/02/16 06:07 Vancocin (Oral Or Rectal Use) PO 125 mg Q6H [facility] Administration - Patient Studies Lab Studies: Lab Studies 11/02/16 11/02/16 11/02/16 Range/Units 06:20 06:20 05:50 WBC 12.9 H (4.8-10.8) K/uL RBC 2.72 L (3.80-5.20) Mil/uL Hgb 8.6 L (11.0-16.0) g/dL Hct 26.2 L (34.0-47.0) % MCV 96.2 (81.0-99.0) fL MCH 31.6 H (27.0-31.0) pg MCHC 32.8 L (33.0-37.0) g/dL RDW 17.6 H (11.5-14.5) % Plt Count 120 L (130-400) K/uL MPV 10.0 (7.2-11.7) fL Neut % (Auto) 76.6 H (50.0-75.0) % Lymph % (Auto) 11.4 L (20.0-40.0) % [place] % (Auto) 9.8 (0.0-10.0) % Eos % (Auto) 1.1 (0.0-4.0) % Baso % (Auto) 1.1 (0.0-2.0) % Neut # 9.9 H (1.8-7.0) K/uL Lymph # 1.5 (1.0-4.3) K/uL [place] # 1.3 H (0.0-0.8) K/uL Eos # 0.1 (0.0-0.7) K/uL Baso # 0.1 (0.0-0.2) K/uL Neutrophils % (Manual) (50-75) % Band Neutrophils % (0-2) % Lymphocytes % (Manual) (20-40) % Monocytes % (Manual) (0-10) % Basophils % (Manual) (0-2) % Toxic Granulation Platelet Estimate (NORMAL) Large Platelets Giant Platelets Hypochromasia (manual) Poikilocytosis (manual Anisocytosis (manual) Target Cells Sodium 134 (132-148) mmol/L Potassium 3.5 L (3.6-5.2) mmol/L Chloride 95 L (98-107) mmol/L Carbon Dioxide 28 (22-30) mmol/L Anion Gap 15 (10-20) BUN 32 H (7-17) mg/dL Creatinine 1.7 H (0.7-1.2) MG/DL Est GFR ( Amer) 36 Est GFR (Non-Af Amer) 29 POC Glucose (mg/dL) 135 H (65-110) mg/dL Random Glucose 142 H (65-105) mg/dL Calcium 8.1 L (8.6-10.4) mg/dl Phosphorus 3.8 (2.5-4.5) mg/dL Magnesium 1.8 (1.6-2.3) mg/dL Total Bilirubin 6.4 H (0.2-1.3) mg/dL AST 66 H D (14-36) U/L ALT 23 (9-52) U/L Alkaline Phosphatase 337 H D (38-126) U/L Total Protein 6.5 (6.3-8.3) g/dL Albumin 2.1 L (3.5-5.0) g/dL Globulin 4.4 H (2.2-3.9) gm/dL Albumin/Globulin Ratio 0.5 L (1.0-2.1) 11/02/16 11/01/16 11/01/16 Range/Units 00:10 17:29 11:47 WBC (4.8-10.8) K/uL RBC (3.80-5.20) Mil/uL Hgb (11.0-16.0) g/dL Hct (34.0-47.0) % MCV (81.0-99.0) fL MCH (27.0-31.0) pg MCHC (33.0-37.0) g/dL RDW (11.5-14.5) % Plt Count (130-400) K/uL MPV (7.2-11.7) fL Neut % (Auto) (50.0-75.0) % Lymph % (Auto) (20.0-40.0) % [place] % (Auto) (0.0-10.0) % Eos % (Auto) (0.0-4.0) % Baso % (Auto) (0.0-2.0) % Neut # (1.8-7.0) K/uL Lymph # (1.0-4.3) K/uL [place] # (0.0-0.8) K/uL Eos # (0.0-0.7) K/uL Baso # (0.0-0.2) K/uL Neutrophils % (Manual) (50-75) % Band Neutrophils % (0-2) % Lymphocytes % (Manual) (20-40) % Monocytes % (Manual) (0-10) % Basophils % (Manual) (0-2) % Toxic Granulation Platelet Estimate (NORMAL) Large Platelets Giant Platelets Hypochromasia (manual) Poikilocytosis (manual Anisocytosis (manual) Target Cells Sodium (132-148) mmol/L Potassium (3.6-5.2) mmol/L Chloride (98-107) mmol/L Carbon Dioxide (22-30) mmol/L Anion Gap (10-20) BUN (7-17) mg/dL Creatinine (0.7-1.2) MG/DL Est GFR ( Amer) Est GFR (Non-Af Amer) POC Glucose (mg/dL) 142 H 191 H 198 H (65-110) mg/dL Random Glucose (65-105) mg/dL Calcium (8.6-10.4) mg/dl Phosphorus (2.5-4.5) mg/dL Magnesium (1.6-2.3) mg/dL Total Bilirubin (0.2-1.3) mg/dL AST (14-36) U/L ALT (9-52) U/L Alkaline Phosphatase (38-126) U/L Total Protein (6.3-8.3) g/dL Albumin (3.5-5.0) g/dL Globulin (2.2-3.9) gm/dL Albumin/Globulin Ratio (1.0-2.1) 11/01/16 Range/Units 06:11 WBC (4.8-10.8) K/uL RBC (3.80-5.20) Mil/uL Hgb (11.0-16.0) g/dL Hct (34.0-47.0) % MCV (81.0-99.0) fL MCH (27.0-31.0) pg MCHC (33.0-37.0) g/dL RDW (11.5-14.5) % Plt Count (130-400) K/uL MPV (7.2-11.7) fL Neut % (Auto) (50.0-75.0) % Lymph % (Auto) (20.0-40.0) % [place] % (Auto) (0.0-10.0) % Eos % (Auto) (0.0-4.0) % Baso % (Auto) (0.0-2.0) % Neut # (1.8-7.0) K/uL Lymph # (1.0-4.3) K/uL [place] # (0.0-0.8) K/uL Eos # (0.0-0.7) K/uL Baso # (0.0-0.2) K/uL Neutrophils % (Manual) 86 H (50-75) % Band Neutrophils % 1 (0-2) % Lymphocytes % (Manual) 6 L (20-40) % Monocytes % (Manual) 5 (0-10) % Basophils % (Manual) 2 (0-2) % Toxic Granulation Present Platelet Estimate Slightly decreased L (NORMAL) Large Platelets Present Giant Platelets Present Hypochromasia (manual) Slight Poikilocytosis (manual Slight Anisocytosis (manual) Slight Target Cells Slight Sodium (132-148) mmol/L Potassium (3.6-5.2) mmol/L Chloride (98-107) mmol/L Carbon Dioxide (22-30) mmol/L Anion Gap (10-20) BUN (7-17) mg/dL Creatinine (0.7-1.2) MG/DL Est GFR ( Amer) Est GFR (Non-Af Amer) POC Glucose (mg/dL) (65-110) mg/dL Random Glucose (65-105) mg/dL Calcium (8.6-10.4) mg/dl Phosphorus (2.5-4.5) mg/dL Magnesium (1.6-2.3) mg/dL Total Bilirubin (0.2-1.3) mg/dL AST (14-36) U/L ALT (9-52) U/L Alkaline Phosphatase (38-126) U/L Total Protein (6.3-8.3) g/dL Albumin (3.5-5.0) g/dL Globulin (2.2-3.9) gm/dL Albumin/Globulin Ratio (1.0-2.1) Laboratory Results - last 24 hr 11/01/16 11/01/16 11/01/16 06:11 11:47 17:29 WBC RBC Hgb Hct MCV MCH MCHC RDW Plt Count MPV Neut % (Auto) Lymph % (Auto) [place] % (Auto) Eos % (Auto) Baso % (Auto) Neut # Lymph # [place] # Eos # Baso # Neutrophils % (Manual) 86 H Band Neutrophils % 1 Lymphocytes % (Manual) 6 L Monocytes % (Manual) 5 Basophils % (Manual) 2 Toxic Granulation Present Platelet Estimate Slightly decreased L Large Platelets Present Giant Platelets Present Hypochromasia (manual) Slight Poikilocytosis (manual Slight Anisocytosis (manual) Slight Target Cells Slight Sodium Potassium Chloride Carbon Dioxide Anion Gap BUN Creatinine Est GFR ( Amer) Est GFR (Non-Af Amer) POC Glucose (mg/dL) 198 H 191 H Random Glucose Calcium Phosphorus Magnesium Total Bilirubin AST ALT Alkaline Phosphatase Total Protein Albumin Globulin Albumin/Globulin Ratio 11/02/16 11/02/16 11/02/16 00:10 05:50 06:20 WBC RBC Hgb Hct MCV MCH MCHC RDW Plt Count MPV Neut % (Auto) Lymph % (Auto) [place] % (Auto) Eos % (Auto) Baso % (Auto) Neut # Lymph # [place] # Eos # Baso # Neutrophils % (Manual) Band Neutrophils % Lymphocytes % (Manual) Monocytes % (Manual) Basophils % (Manual) Toxic Granulation Platelet Estimate Large Platelets Giant Platelets Hypochromasia (manual) Poikilocytosis (manual Anisocytosis (manual) Target Cells Sodium 134 Potassium 3.5 L Chloride 95 L Carbon Dioxide 28 Anion Gap 15 BUN 32 H Creatinine 1.7 H Est GFR ( Amer) 36 Est GFR (Non-Af Amer) 29 POC Glucose (mg/dL) 142 H 135 H Random Glucose 142 H Calcium 8.1 L Phosphorus 3.8 Magnesium 1.8 Total Bilirubin 6.4 H AST 66 H D ALT 23 Alkaline Phosphatase 337 H D Total Protein 6.5 Albumin 2.1 L Globulin 4.4 H Albumin/Globulin Ratio 0.5 L 11/02/16 06:20 WBC 12.9 H RBC 2.72 L Hgb 8.6 L Hct 26.2 L MCV 96.2 MCH 31.6 H MCHC 32.8 L RDW 17.6 H Plt Count 120 L MPV 10.0 Neut % (Auto) 76.6 H Lymph % (Auto) 11.4 L [place] % (Auto) 9.8 Eos % (Auto) 1.1 Baso % (Auto) 1.1 Neut # 9.9 H Lymph # 1.5 [place] # 1.3 H Eos # 0.1 Baso # 0.1 Neutrophils % (Manual) Band Neutrophils % Lymphocytes % (Manual) Monocytes % (Manual) Basophils % (Manual) Toxic Granulation Platelet Estimate Large Platelets Giant Platelets Hypochromasia (manual) Poikilocytosis (manual Anisocytosis (manual) Target Cells Sodium Potassium Chloride Carbon Dioxide Anion Gap BUN Creatinine Est GFR ( Amer) Est GFR (Non-Af Amer) POC Glucose (mg/dL) Random Glucose Calcium Phosphorus Magnesium Total Bilirubin AST ALT Alkaline Phosphatase Total Protein Albumin Globulin Albumin/Globulin Ratio Fingerstick Blood Sugar Results: 135 Review of Systems - Review of Systems Systems not reviewed;Unavailable: Altered Mental Status Assessment/Plan - Assessment and Plan (Free Text) Assessment: 76F admitted for GI bleed; s/p flexible sigmoidoscopy and multiple transfusions. HgB now stable x 5 days Plan: HgB stable no further bleeding will downgrade pt to telemetry further mgmt per primary team and consulted physicians d/w Dr Yordy Bello, PGY3 - Date & Time Date: 11/02/16 Time: 08:01 <Jonatan Scales - Last Filed: 11/02/16 17:14> CCU Objective - Vital Signs / Intake & Output Vital Signs (Last 4 hours): Vital Signs Pulse Resp BP Pulse Ox 11/02/16 16:30 87 15 176/143 H 11/02/16 15:23 89 14 90/27 L 100 11/02/16 14:57 89 17 87/31 L 100 11/02/16 14:42 93 H 19 76/28 L 100 11/02/16 14:27 84 19 82/18 L 100 11/02/16 14:17 83 10 L 84/30 L 100 11/02/16 14:12 82 20 76/38 L 11/02/16 13:58 81 14 90/34 L 100 11/02/16 13:42 80 15 83/34 L 100 11/02/16 13:29 80 16 91/35 L 100 11/02/16 13:12 81 14 89/26 L 100 Intake and Output (Last 8hrs): Intake & Output 11/02/16 11/02/16 11/02/16 06:59 14:59 22:59 Intake Total 440 120 Output Total 100 20 Balance 340 100 Weight 121 lb 14.4 oz Intake: Tube Feeding 280 70 Other 160 50 Output: Urine 0 0 Urethral ([place]) 0 Urine, Voided 0 0 Stool 100 20 - Medications Active Medications: Active Medications Generic Name Dose Route Start Last Admin Trade Name Freq PRN Reason Stop Dose Admin Epoetin Sly 10,000 unit 11/02/16 09:30 11/02/16 09:40 Procrit IV 10,000 unit [facility] Administration Meropenem 500 mg/ Sodium 100 mls @ 100 mls/hr 10/25/16 19:00 11/01/16 18:12 Chloride IVPB 100 mls/hr Q24H [facility] Administration Norepinephrine Bitartrate 8 mg 258 mls @ 7.74 mls/hr 11/02/16 10:44 11/02/16 11:10 / Dextrose IV 4 mcg/min .Q24H PRN 7.74 mls/hr TITRATE PER MD ORDER Administration Protocol 4 MCG/MIN Insulin Human Regular 0 unit 10/26/16 06:00 11/02/16 12:03 Novolin R SC Not Given Q6 [facility] Protocol Levothyroxine Sodium 200 mcg 10/26/16 06:30 11/02/16 05:52 Synthroid PO 200 mcg DAILY@0630 [facility] Administration Midodrine 5 mg 11/01/16 14:00 11/02/16 15:17 Proamatine PO 5 mg TID RE[facility] Administration Pantoprazole Sodium 40 mg 10/31/16 17:45 11/02/16 09:43 Protonix Susp NG 40 mg DAILY RE[facility] Administration - Patient Studies Lab Studies: Lab Studies 11/02/16 11/02/16 11/02/16 Range/Units 11:52 06:20 06:20 WBC 12.9 H (4.8-10.8) K/uL RBC 2.72 L (3.80-5.20) Mil/uL Hgb 8.6 L (11.0-16.0) g/dL Hct 26.2 L (34.0-47.0) % MCV 96.2 (81.0-99.0) fL MCH 31.6 H (27.0-31.0) pg MCHC 32.8 L (33.0-37.0) g/dL RDW 17.6 H (11.5-14.5) % Plt Count 120 L (130-400) K/uL MPV 10.0 (7.2-11.7) fL Neut % (Auto) 76.6 H (50.0-75.0) % Lymph % (Auto) 11.4 L (20.0-40.0) % [place] % (Auto) 9.8 (0.0-10.0) % Eos % (Auto) 1.1 (0.0-4.0) % Baso % (Auto) 1.1 (0.0-2.0) % Neut # 9.9 H (1.8-7.0) K/uL Lymph # 1.5 (1.0-4.3) K/uL [place] # 1.3 H (0.0-0.8) K/uL Eos # 0.1 (0.0-0.7) K/uL Baso # 0.1 (0.0-0.2) K/uL Sodium 134 (132-148) mmol/L Potassium 3.5 L (3.6-5.2) mmol/L Chloride 95 L (98-107) mmol/L Carbon Dioxide 28 (22-30) mmol/L Anion Gap 15 (10-20) BUN 32 H (7-17) mg/dL Creatinine 1.7 H (0.7-1.2) MG/DL Est GFR ( Amer) 36 Est GFR (Non-Af Amer) 29 POC Glucose (mg/dL) 146 H (65-110) mg/dL Random Glucose 142 H (65-105) mg/dL Calcium 8.1 L (8.6-10.4) mg/dl Phosphorus 3.8 (2.5-4.5) mg/dL Magnesium 1.8 (1.6-2.3) mg/dL Total Bilirubin 6.4 H (0.2-1.3) mg/dL AST 66 H D (14-36) U/L ALT 23 (9-52) U/L Alkaline Phosphatase 337 H D (38-126) U/L Total Protein 6.5 (6.3-8.3) g/dL Albumin 2.1 L (3.5-5.0) g/dL Globulin 4.4 H (2.2-3.9) gm/dL Albumin/Globulin Ratio 0.5 L (1.0-2.1) 11/02/16 11/02/16 11/01/16 Range/Units 05:50 00:10 17:29 WBC (4.8-10.8) K/uL RBC (3.80-5.20) Mil/uL Hgb (11.0-16.0) g/dL Hct (34.0-47.0) % MCV (81.0-99.0) fL MCH (27.0-31.0) pg MCHC (33.0-37.0) g/dL RDW (11.5-14.5) % Plt Count (130-400) K/uL MPV (7.2-11.7) fL Neut % (Auto) (50.0-75.0) % Lymph % (Auto) (20.0-40.0) % [place] % (Auto) (0.0-10.0) % Eos % (Auto) (0.0-4.0) % Baso % (Auto) (0.0-2.0) % Neut # (1.8-7.0) K/uL Lymph # (1.0-4.3) K/uL [place] # (0.0-0.8) K/uL Eos # (0.0-0.7) K/uL Baso # (0.0-0.2) K/uL Sodium (132-148) mmol/L Potassium (3.6-5.2) mmol/L Chloride (98-107) mmol/L Carbon Dioxide (22-30) mmol/L Anion Gap (10-20) BUN (7-17) mg/dL Creatinine (0.7-1.2) MG/DL Est GFR ( Amer) Est GFR (Non-Af Amer) POC Glucose (mg/dL) 135 H 142 H 191 H (65-110) mg/dL Random Glucose (65-105) mg/dL Calcium (8.6-10.4) mg/dl Phosphorus (2.5-4.5) mg/dL Magnesium (1.6-2.3) mg/dL Total Bilirubin (0.2-1.3) mg/dL AST (14-36) U/L ALT (9-52) U/L Alkaline Phosphatase (38-126) U/L Total Protein (6.3-8.3) g/dL Albumin (3.5-5.0) g/dL Globulin (2.2-3.9) gm/dL Albumin/Globulin Ratio (1.0-2.1) Laboratory Results - last 24 hr 11/01/16 11/02/16 11/02/16 17:29 00:10 05:50 WBC RBC Hgb Hct MCV MCH MCHC RDW Plt Count MPV Neut % (Auto) Lymph % (Auto) [place] % (Auto) Eos % (Auto) Baso % (Auto) Neut # Lymph # [place] # Eos # Baso # Sodium Potassium Chloride Carbon Dioxide Anion Gap BUN Creatinine Est GFR ( Amer) Est GFR (Non-Af Amer) POC Glucose (mg/dL) 191 H 142 H 135 H Random Glucose Calcium Phosphorus Magnesium Total Bilirubin AST ALT Alkaline Phosphatase Total Protein Albumin Globulin Albumin/Globulin Ratio 11/02/16 11/02/16 11/02/16 06:20 06:20 11:52 WBC 12.9 H RBC 2.72 L Hgb 8.6 L Hct 26.2 L MCV 96.2 MCH 31.6 H MCHC 32.8 L RDW 17.6 H Plt Count 120 L MPV 10.0 Neut % (Auto) 76.6 H Lymph % (Auto) 11.4 L [place] % (Auto) 9.8 Eos % (Auto) 1.1 Baso % (Auto) 1.1 Neut # 9.9 H Lymph # 1.5 [place] # 1.3 H Eos # 0.1 Baso # 0.1 Sodium 134 Potassium 3.5 L Chloride 95 L Carbon Dioxide 28 Anion Gap 15 BUN 32 H Creatinine 1.7 H Est GFR ( Amer) 36 Est GFR (Non-Af Amer) 29 POC Glucose (mg/dL) 146 H Random Glucose 142 H Calcium 8.1 L Phosphorus 3.8 Magnesium 1.8 Total Bilirubin 6.4 H AST 66 H D ALT 23 Alkaline Phosphatase 337 H D Total Protein 6.5 Albumin 2.1 L Globulin 4.4 H Albumin/Globulin Ratio 0.5 L Assessment/Plan (1) Lower GI bleed Current Visit: Yes Status: Acute (2) ESRD (end stage renal disease) on dialysis Current Visit: No Status: Chronic Attending/Attestation - Attestation I have personally seen and examined this patient.: Yes I have fully participated in the care of the patient.: Yes I have reviewed all pertinent clinical information: Yes Notes (Text): 11/02/16 17:11 Patient seen and examined in the intensive care unit. Case discussed with staff in the morning around No further GI bleeding noted Getting hemodialysis Family does not want any surgical intervention or pressors For PEG insertion tomorrow Transferred to telemetry
--- NOTE | 2016-11-02 08:15 | CP.PCM.PN ---
Subjective - Date & Time of Evaluation Date of Evaluation: 11/02/16 Time of Evaluation: 08:11 - Subjective Subjective: For dialysis now On vent-trached Considering PEG in few days Possible tele transfer as no active bleeding, off pressors Same lethargic mental status Objective - Vital Signs/Intake and Output Vital Signs (last 24 hours): Temp Pulse Resp BP Pulse Ox 98 F 84 19 97/42 L 100 11/02/16 04:00 11/02/16 03:00 11/02/16 03:00 11/02/16 02:08 11/02/16 03:00 Intake and Output: 11/02/16 11/02/16 06:59 18:59 Intake Total 645 Output Total 100 Balance 545 - Medications Medications: Current Medications Epoetin Sly (Procrit) 10,000 unit IV MWF [facility] Last Admin: 10/31/16 09:36 Dose: 10,000 unit Meropenem 500 mg/ Sodium (Chloride) 100 mls @ 100 mls/hr IVPB Q24H [facility] Last Admin: 11/01/16 18:12 Dose: 100 mls/hr Insulin Human Regular (Novolin R) 0 unit SC Q6 [facility] PRN Reason: Protocol Last Admin: 11/02/16 06:06 Dose: Not Given Levothyroxine Sodium (Synthroid) 200 mcg PO DAILY@0630 [facility] Last Admin: 11/02/16 05:52 Dose: 200 mcg Midodrine (Proamatine) 5 mg PO TID [facility] Last Admin: 11/01/16 17:17 Dose: 5 mg Pantoprazole Sodium (Protonix Susp) 40 mg NG DAILY [facility] Last Admin: 11/01/16 10:04 Dose: 40 mg Vancomycin HCl (Vancocin (Oral Or Rectal Use)) 125 mg PO Q6H [facility] Last Admin: 11/02/16 06:07 Dose: 125 mg - Labs Labs: 11/02/16 06:20 11/02/16 06:20 PT 19.5 SECONDS (9.7-12.2) H 10/28/16 08:07 INR 1.7 10/28/16 08:07 APTT 49 SECONDS (21-34) H 10/25/16 16:33 - Constitutional Appears: Older Than Stated Age, Confused, Chronically Ill - Head Exam Head Exam: ATRAUMATIC, NORMAL INSPECTION - Eye Exam Eye Exam: EOMI, Normal appearance - Neck Exam Neck Exam: Normal Inspection. absent: Tenderness - Respiratory Exam Respiratory Exam: Rhonchi, Respiratory Distress - Cardiovascular Exam Cardiovascular Exam: REGULAR RHYTHM, +S1 - GI/Abdominal Exam GI & Abdominal Exam: Soft. absent: Tenderness - Extremities Exam Extremities Exam: Normal Inspection, Tenderness - Neurological Exam Neurological Exam: Altered, Motor Sensory Deficit - Skin Skin Exam: Dry, Warm Assessment and Plan (1) Lower GI bleed Status: Acute (2) Diabetic nephropathy with proteinuria Status: Acute (3) CHF (congestive heart failure) Status: Chronic (4) ESRD (end stage renal disease) on dialysis Status: Chronic - Assessment and Plan (Free Text) Plan: Dialysis now with 4K bath, moderate UF monitor for further GI bleeding No surgical intervention now Possible PEG in few days Likely tele transfer
[2016-11-02] MEDS ORDERED: Albumin Human 25% (12.5 gm/50 ml) IV ONE ×2 (08:58→11:15)
[2016-11-02] MEDS: Epoetin Alfa 10,000 unit/ml Dialysis IV SCH (09:40)
[2016-11-02] MEDS: Pantoprazole 40 mg Susp UD NG SCH (09:43)
--- NOTE | 2016-11-02 15:47 | CP.PCM.PN ---
Subjective - Date & Time of Evaluation Date of Evaluation: 11/02/16 Time of Evaluation: 07:30 - Subjective Subjective: Pt S&E this AM. No acute events over night. Patient alert. Objective - Vital Signs/Intake and Output Vital Signs (last 24 hours): Temp Pulse Resp BP Pulse Ox 98 F 89 13 109/45 L 100 11/02/16 12:00 11/02/16 12:00 11/02/16 12:00 11/02/16 12:00 11/02/16 12:00 Intake and Output: 11/02/16 11/02/16 06:59 18:59 Intake Total 645 85 Output Total 100 20 Balance 545 65 - Medications Medications: Current Medications Epoetin Sly (Procrit) 10,000 unit IV MWF [facility] Last Admin: 11/02/16 09:40 Dose: 10,000 unit Meropenem 500 mg/ Sodium (Chloride) 100 mls @ 100 mls/hr IVPB Q24H [facility] Last Admin: 11/01/16 18:12 Dose: 100 mls/hr Norepinephrine Bitartrate 8 mg (/ Dextrose) 258 mls @ 7.74 mls/hr IV .Q24H PRN ; Protocol; 4 MCG/MIN PRN Reason: TITRATE PER MD ORDER Last Admin: 11/02/16 11:10 Dose: 4 mcg/min, 7.74 mls/hr Insulin Human Regular (Novolin R) 0 unit SC Q6 [facility] PRN Reason: Protocol Last Admin: 11/02/16 12:03 Dose: Not Given Levothyroxine Sodium (Synthroid) 200 mcg PO DAILY@0630 [facility] Last Admin: 11/02/16 05:52 Dose: 200 mcg Midodrine (Proamatine) 5 mg PO TID [facility] Last Admin: 11/02/16 15:17 Dose: 5 mg Pantoprazole Sodium (Protonix Susp) 40 mg NG DAILY [facility] Last Admin: 11/02/16 09:43 Dose: 40 mg - Labs Labs: 11/02/16 06:20 11/02/16 06:20 PT 19.5 SECONDS (9.7-12.2) H 10/28/16 08:07 INR 1.7 10/28/16 08:07 APTT 49 SECONDS (21-34) H 10/25/16 16:33 - Constitutional Appears: No Acute Distress - Eye Exam Eye Exam: Normal appearance - ENT Exam ENT Exam: Mucous Membranes Moist - Respiratory Exam Respiratory Exam: NORMAL BREATHING PATTERN - Cardiovascular Exam Cardiovascular Exam: +S1, +S2 - GI/Abdominal Exam GI & Abdominal Exam: Soft - Extremities Exam Additional comments: necrotic tissue along left middle phalanx skin ulcerations a long dorsum of phalanx in right hand - Neurological Exam Neurological Exam: Alert, Awake - Psychiatric Exam Psychiatric exam: Normal Mood - Skin Skin Exam: Dry, Intact, Warm Assessment and Plan - Assessment and Plan (Free Text) Assessment: 76F w/ ischemic left middle finger tip 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 Heber Beard PGY-2
[2016-11-02] MEDS: Meropenem 500 MG in Sodium Chloride 0.9% 100 ML IVPB SCH (18:18)
--- NOTE | 2016-11-02 20:18 | CP.PCM.PN ---
Subjective - Date & Time of Evaluation Date of Evaluation: 11/02/16 Time of Evaluation: 20:18 - Subjective Subjective: Patient today having no active GI bleeding. Currently on ventilator. Sacral decubiti noted. Diarrhea present. No chest pain. Vital signs reviewed No neck vein distention noted Chest bilateral wheezing noted CVS regular heart sound, no murmur noted Abdomen soft, nontender. Extremities no pedal edema [employer] [facility] sedated. Edema noted Assessment and recommendation: 76 female history of heart disease, end-stage renal disease on dialysis, right- sided entrapped lung, pleural effusion, empyema history, status post antibiotic treatment still getting antibiotic, acute on chronic respiratory failure, status post tracheostomy, recurrent sepsis, colitis, C. difficile colitis, diarrhea, sacral decubiti, left heel ulcer, left middle finger gangrene. Left arm AV fistula. Patient has hypotension, tolerating the dialysis. But the letter associated pneumonia. Malnourishment. Two-view intake. Ascites. Liver cirrhosis. Currently receiving NG tube feeding. Not a candidate to get the PEG tube yet. Clinical condition is worsening slowly. Spoke to the patient's daughter Objective - Vital Signs/Intake and Output Vital Signs (last 24 hours): Temp Pulse Resp BP Pulse Ox 98 F 89 22 106/85 100 11/02/16 12:00 11/02/16 20:00 11/02/16 20:00 11/02/16 17:20 11/02/16 20:00 Intake and Output: 11/02/16 11/03/16 18:59 06:59 Intake Total 138 380 Output Total 20 200 Balance 118 180 - Medications Medications: Current Medications Epoetin Sly (Procrit) 10,000 unit IV F [facility] Last Admin: 11/02/16 09:40 Dose: 10,000 unit Meropenem 500 mg/ Sodium (Chloride) 100 mls @ 100 mls/hr IVPB Q24H [facility] Last Admin: 11/02/16 18:18 Dose: 100 mls/hr Norepinephrine Bitartrate 8 mg (/ Dextrose) 258 mls @ 7.74 mls/hr IV .Q24H PRN ; Protocol; 4 MCG/MIN PRN Reason: TITRATE PER MD ORDER Last Titration: 11/02/16 14:00 Dose: 0 mcg/min, 0 mls/hr Insulin Human Regular (Novolin R) 0 unit SC Q6 [facility] PRN Reason: Protocol Last Admin: 11/02/16 18:28 Dose: Not Given Levothyroxine Sodium (Synthroid) 200 mcg PO DAILY@0630 [facility] Last Admin: 11/02/16 05:52 Dose: 200 mcg Midodrine (Proamatine) 5 mg PO TID [facility] Last Admin: 11/02/16 18:18 Dose: 5 mg Pantoprazole Sodium (Protonix Susp) 40 mg NG DAILY [facility] Last Admin: 11/02/16 09:43 Dose: 40 mg - Labs Labs: 11/02/16 06:20 11/02/16 06:20 PT 19.5 SECONDS (9.7-12.2) H 10/28/16 08:07 INR 1.7 10/28/16 08:07 APTT 49 SECONDS (21-34) H 10/25/16 16:33
--- NOTE | 2016-11-02 20:18 | CP.PCM.PN ---
Subjective - Date & Time of Evaluation Date of Evaluation: 11/01/16 Time of Evaluation: 20:18 - Subjective Subjective: Patient today having no active GI bleeding. Currently on ventilator. Sacral decubiti noted. Diarrhea present. No chest pain. Vital signs reviewed No neck vein distention noted Chest bilateral wheezing noted CVS regular heart sound, no murmur noted Abdomen soft, nontender. Extremities no pedal edema [employer] sedated. Edema noted Assessment and recommendation: 76 female history of heart disease, end-stage renal disease on dialysis, right- sided entrapped lung, pleural effusion, empyema history, status post antibiotic treatment still getting antibiotic, acute on chronic respiratory failure, status post tracheostomy, recurrent sepsis, colitis, C. difficile colitis, diarrhea, sacral decubiti, left heel ulcer, left middle finger gangrene. Left arm AV fistula. Patient has hypotension, tolerating the dialysis. But the letter associated pneumonia. Malnourishment. Two-view intake. Ascites. Liver cirrhosis. Currently receiving NG tube feeding. Not a candidate to get the PEG tube yet. Clinical condition is worsening slowly. Spoke to the patient's daughter Objective - Vital Signs/Intake and Output Vital Signs (last 24 hours): Temp Pulse Resp BP Pulse Ox 98 F 89 22 106/85 100 11/02/16 12:00 11/02/16 20:00 11/02/16 20:00 11/02/16 17:20 11/02/16 20:00 Intake and Output: 11/02/16 11/03/16 18:59 06:59 Intake Total 138 380 Output Total 20 200 Balance 118 180 - Medications Medications: Current Medications Epoetin Sly (Procrit) 10,000 unit IV F [facility] Last Admin: 11/02/16 09:40 Dose: 10,000 unit Meropenem 500 mg/ Sodium (Chloride) 100 mls @ 100 mls/hr IVPB Q24H [facility] Last Admin: 11/02/16 18:18 Dose: 100 mls/hr Norepinephrine Bitartrate 8 mg (/ Dextrose) 258 mls @ 7.74 mls/hr IV .Q24H PRN ; Protocol; 4 MCG/MIN PRN Reason: TITRATE PER MD ORDER Last Titration: 11/02/16 14:00 Dose: 0 mcg/min, 0 mls/hr Insulin Human Regular (Novolin R) 0 unit SC Q6 [facility] PRN Reason: Protocol Last Admin: 11/02/16 18:28 Dose: Not Given Levothyroxine Sodium (Synthroid) 200 mcg PO DAILY@0630 [facility] Last Admin: 11/02/16 05:52 Dose: 200 mcg Midodrine (Proamatine) 5 mg PO TID [facility] Last Admin: 11/02/16 18:18 Dose: 5 mg Pantoprazole Sodium (Protonix Susp) 40 mg NG DAILY [facility] Last Admin: 11/02/16 09:43 Dose: 40 mg - Labs Labs: 11/02/16 06:20 11/02/16 06:20 PT 19.5 SECONDS (9.7-12.2) H 10/28/16 08:07 INR 1.7 10/28/16 08:07 APTT 49 SECONDS (21-34) H 10/25/16 16:33
--- NOTE | 2016-11-02 22:13 | CP.PCM.PN ---
Subjective - Date & Time of Evaluation Date of Evaluation: 11/02/16 Time of Evaluation: 17:45 - Subjective Subjective: Patient seen and evaluated Patient condition remains same Objective - Vital Signs/Intake and Output Vital Signs (last 24 hours): Temp Pulse Resp BP Pulse Ox 98 F 85 22 106/85 100 11/02/16 12:00 11/02/16 22:00 11/02/16 20:00 11/02/16 17:20 11/02/16 20:00 Intake and Output: 11/02/16 11/03/16 18:59 06:59 Intake Total 138 380 Output Total 20 200 Balance 118 180 - Medications Medications: Current Medications Epoetin Sly (Procrit) 10,000 unit IV MWF [facility] Last Admin: 11/02/16 09:40 Dose: 10,000 unit Meropenem 500 mg/ Sodium (Chloride) 100 mls @ 100 mls/hr IVPB Q24H [facility] Last Admin: 11/02/16 18:18 Dose: 100 mls/hr Norepinephrine Bitartrate 8 mg (/ Dextrose) 258 mls @ 7.74 mls/hr IV .Q24H PRN ; Protocol; 4 MCG/MIN PRN Reason: TITRATE PER MD ORDER Last Titration: 11/02/16 14:00 Dose: 0 mcg/min, 0 mls/hr Insulin Human Regular (Novolin R) 0 unit SC Q6 [facility] PRN Reason: Protocol Last Admin: 11/02/16 18:28 Dose: Not Given Levothyroxine Sodium (Synthroid) 200 mcg PO DAILY@0630 [facility] Last Admin: 11/02/16 05:52 Dose: 200 mcg Midodrine (Proamatine) 5 mg PO TID [facility] Last Admin: 11/02/16 18:18 Dose: 5 mg Pantoprazole Sodium (Protonix Susp) 40 mg NG DAILY [facility] Last Admin: 11/02/16 09:43 Dose: 40 mg - Labs Labs: 11/02/16 06:20 11/02/16 06:20 PT 19.5 SECONDS (9.7-12.2) H 10/28/16 08:07 INR 1.7 10/28/16 08:07 APTT 49 SECONDS (21-34) H 10/25/16 16:33
[2016-11-03] MEDS: (Novolin R) Insulin Human Regular 100 units/ml vial SC SCH ×4 (00:42→18:17)
[2016-11-03] MEDS: Levothyroxine 200 MCG TAB PO SCH (06:34)
[2016-11-03 06:43] LABS: BASO # 0.2 K/uL (0.0-0.2); BASO % 0.9 % (0.0-2.0); EOS % 0.2 % (0.0-4.0); HEMATOCRIT 23.3 % (34.0-47.0); LYMPH # 1.7 K/uL (1.0-4.3); MEAN CELL VOLUME 99.7 fL (81.0-99.0); MEAN CORPUSCULAR HGB CONC 32.1 g/dL (33.0-37.0); MEAN PLATELET VOLUME 10.5 fL (7.2-11.7); MONO # 2.1 K/uL (0.0-0.8); NRBC % 0.4 % (0.0-2.0); PLATELET COUNT 98 K/uL (130-400); WHITE BLOOD COUNT 21.5 K/uL (4.8-10.8)
[2016-11-03 06:51] LABS: POTASSIUM 3.1 mmol/L (3.6-5.2)
[2016-11-03 06:53] LABS: ALB/GLOB RATIO 0.5 (1.0-2.1); BILIRUBIN,TOTAL 6.8 mg/dL (0.2-1.3); TOTAL PROTEIN 5.9 g/dL (6.3-8.3)
[2016-11-03 06:54] LABS: CALCIUM 7.9 mg/dl (8.6-10.4); MAGNESIUM 1.7 mg/dL (1.6-2.3); PHOSPHOROUS 2.7 mg/dL (2.5-4.5)
[2016-11-03] MEDS ORDERED: Sodium Chloride 0.9% 500 ML IV ONE (07:41)
--- NOTE | 2016-11-03 07:53 | CP.CCUPN ---
<Gretchen Brewer - Last Filed: 11/03/16 10:13> CCU Subjective - Physician Review Subjective (Free Text): Patient seen and examined in the AM at bedside. Patient is not alert and not oriented. Patient continues to have regular stool output with no blood. Patient was started on Norepinephrine for blood pressure. Patient was transferred back to ICU. 11/03/16 08:16 CCU Objective - Vital Signs / Intake & Output Vital Signs (Last 4 hours): Vital Signs Pulse Resp BP Pulse Ox 11/03/16 04:17 74 23 117/47 L 100 11/03/16 04:12 73 30 H 93 L 11/03/16 04:00 73 28 H 95 Intake and Output (Last 8hrs): Intake & Output 11/02/16 11/03/16 11/03/16 22:59 06:59 14:59 Intake Total 380 470 Output Total 200 Balance 180 470 Weight 122 lb Intake: IV 100 Tube Feeding 280 420 Other 50 Output: Stool 200 Other: # Voids Urethral (Sawyer) 0 - Physical Exam Physical Exam Limitations: Positive for: Altered Mental Status Head: Positive for: Atraumatic Extroacular Muscles: Positive for: EOMI Mouth: Positive for: Dry Nose (Internal): Positive for: Other (NGT in place) Neck: Positive for: Other (trach in place) Respiratory/Chest: Positive for: Rhonchi. Negative for: Clear to Auscultation ( decreased in RLL), Respiratory Distress, Accessory Muscle Use Cardiovascular: Positive for: Regular Rate and Rhythm, Normal S1, S2. Negative for: Murmurs, Tachycardic, Bradycardic Abdomen: Negative for: Peritoneal Signs, Hernias Rectal: Negative for: Gross Blood Upper Extremity: Positive for: Cyanosis, Temperature Abnormalties, Other (cold fingers, ischemic 3rd digit on left hand ). Negative for: NORMAL PULSES, Neurovascularly Intact, Capillary Refill < 2s Lower Extremity: Positive for: Edema Neurological: Negative for: GCS=15, Speech Normal Skin: Positive for: Cold (bilateral hands). Negative for: Warm Psychiatric: Negative for: Alert, Oriented x 3, Normal Insight, Normal Concentration - Medications Active Medications: Active Medications Generic Name Dose Route Start Last Admin Trade Name Freq PRN Reason Stop Dose Admin Epoetin Sly 10,000 unit 11/02/16 09:30 11/02/16 09:40 Procrit IV 10,000 unit MWF REKHA Administration Meropenem 500 mg/ Sodium 100 mls @ 100 mls/hr 10/25/16 19:00 11/02/16 18:18 Chloride IVPB 100 mls/hr Q24H REKHA Administration Norepinephrine Bitartrate 8 mg 258 mls @ 7.74 mls/hr 11/02/16 10:44 11/02/16 14:00 / Dextrose IV 0 mcg/min .Q24H PRN 0 mls/hr TITRATE PER MD ORDER Titration Protocol 4 MCG/MIN Albumin Human 250 mls @ 50 mls/hr 11/03/16 08:00 Albumin Human 5% (12.5 Gm/250 Ml) IVPB 11/03/16 12:59 ONCE ONE Sodium Chloride 500 mls @ 1,000 mls/hr 11/03/16 07:41 Sodium Chloride 0.9% IV 11/03/16 08:10 .Q30M ONE Acetaminophen 65 mls @ 260 mls/hr 11/03/16 08:00 Ofirmev IV 11/03/16 08:14 ONCE ONE Potassium Chloride 20 meq in 100 mls @ 50 mls/hr 11/03/16 08:00 Potassium Chloride 20 Meq/100 Ml IVPB 11/03/16 09:59 ONCE ONE Potassium Chloride 20 meq in 100 mls @ 50 mls/hr 11/03/16 08:47 Potassium Chloride 20 Meq/100 Ml IVPB 11/03/16 10:46 ONCE ONE Insulin Human Regular 0 unit 10/26/16 06:00 11/03/16 05:21 Novolin R SC Not Given Q6 REKHA Protocol Levothyroxine Sodium 200 mcg 10/26/16 06:30 11/03/16 06:34 Synthroid PO 200 mcg DAILY@0630 REKHA Administration Midodrine 5 mg 11/01/16 14:00 11/02/16 18:18 Proamatine PO 5 mg TID REKHA Administration Pantoprazole Sodium 40 mg 10/31/16 17:45 11/02/16 09:43 Protonix Susp NG 40 mg DAILY REKHA Administration - Patient Studies Lab Studies: Lab Studies 11/03/16 11/03/16 11/03/16 Range/Units 06:30 06:30 05:20 WBC 21.5 H D (4.8-10.8) K/uL RBC 2.33 L (3.80-5.20) Mil/uL Hgb 7.5 L (11.0-16.0) g/dL Hct 23.3 L (34.0-47.0) % MCV 99.7 H D (81.0-99.0) fL MCH 32.0 H (27.0-31.0) pg MCHC 32.1 L (33.0-37.0) g/dL RDW 22.0 H (11.5-14.5) % Plt Count 98 L D (130-400) K/uL MPV 10.5 (7.2-11.7) fL Neut % (Auto) 80.9 H (50.0-75.0) % Lymph % (Auto) 8.0 L (20.0-40.0) % Jay % (Auto) 10.0 (0.0-10.0) % Eos % (Auto) 0.2 (0.0-4.0) % Baso % (Auto) 0.9 (0.0-2.0) % Neut # 17.4 H (1.8-7.0) K/uL Lymph # 1.7 (1.0-4.3) K/uL Jay # 2.1 H (0.0-0.8) K/uL Eos # 0.0 (0.0-0.7) K/uL Baso # 0.2 (0.0-0.2) K/uL Sodium 134 (132-148) mmol/L Potassium 3.1 L (3.6-5.2) mmol/L Chloride 97 L (98-107) mmol/L Carbon Dioxide 24 (22-30) mmol/L Anion Gap 16 (10-20) BUN 25 H (7-17) mg/dL Creatinine 1.4 H (0.7-1.2) MG/DL Est GFR ( Amer) 44 Est GFR (Non-Af Amer) 37 POC Glucose (mg/dL) 165 H (65-110) mg/dL Random Glucose 73 (65-105) mg/dL Calcium 7.9 L (8.6-10.4) mg/dl Phosphorus 2.7 (2.5-4.5) mg/dL Magnesium 1.7 (1.6-2.3) mg/dL Total Bilirubin 6.8 H (0.2-1.3) mg/dL AST 51 H D (14-36) U/L ALT 23 (9-52) U/L Alkaline Phosphatase 300 H (38-126) U/L Total Protein 5.9 L (6.3-8.3) g/dL Albumin 2.0 L (3.5-5.0) g/dL Globulin 3.9 (2.2-3.9) gm/dL Albumin/Globulin Ratio 0.5 L (1.0-2.1) 11/03/16 11/02/16 11/02/16 Range/Units 00:41 23:39 19:10 WBC (4.8-10.8) K/uL RBC (3.80-5.20) Mil/uL Hgb (11.0-16.0) g/dL Hct (34.0-47.0) % MCV (81.0-99.0) fL MCH (27.0-31.0) pg MCHC (33.0-37.0) g/dL RDW (11.5-14.5) % Plt Count (130-400) K/uL MPV (7.2-11.7) fL Neut % (Auto) (50.0-75.0) % Lymph % (Auto) (20.0-40.0) % Jay % (Auto) (0.0-10.0) % Eos % (Auto) (0.0-4.0) % Baso % (Auto) (0.0-2.0) % Neut # (1.8-7.0) K/uL Lymph # (1.0-4.3) K/uL Jay # (0.0-0.8) K/uL Eos # (0.0-0.7) K/uL Baso # (0.0-0.2) K/uL Sodium (132-148) mmol/L Potassium (3.6-5.2) mmol/L Chloride (98-107) mmol/L Carbon Dioxide (22-30) mmol/L Anion Gap (10-20) BUN (7-17) mg/dL Creatinine (0.7-1.2) MG/DL Est GFR ( Amer) Est GFR (Non-Af Amer) POC Glucose (mg/dL) 100 64 L 152 H (65-110) mg/dL Random Glucose (65-105) mg/dL Calcium (8.6-10.4) mg/dl Phosphorus (2.5-4.5) mg/dL Magnesium (1.6-2.3) mg/dL Total Bilirubin (0.2-1.3) mg/dL AST (14-36) U/L ALT (9-52) U/L Alkaline Phosphatase (38-126) U/L Total Protein (6.3-8.3) g/dL Albumin (3.5-5.0) g/dL Globulin (2.2-3.9) gm/dL Albumin/Globulin Ratio (1.0-2.1) 11/02/16 Range/Units 11:52 WBC (4.8-10.8) K/uL RBC (3.80-5.20) Mil/uL Hgb (11.0-16.0) g/dL Hct (34.0-47.0) % MCV (81.0-99.0) fL MCH (27.0-31.0) pg MCHC (33.0-37.0) g/dL RDW (11.5-14.5) % Plt Count (130-400) K/uL MPV (7.2-11.7) fL Neut % (Auto) (50.0-75.0) % Lymph % (Auto) (20.0-40.0) % Jay % (Auto) (0.0-10.0) % Eos % (Auto) (0.0-4.0) % Baso % (Auto) (0.0-2.0) % Neut # (1.8-7.0) K/uL Lymph # (1.0-4.3) K/uL Jay # (0.0-0.8) K/uL Eos # (0.0-0.7) K/uL Baso # (0.0-0.2) K/uL Sodium (132-148) mmol/L Potassium (3.6-5.2) mmol/L Chloride (98-107) mmol/L Carbon Dioxide (22-30) mmol/L Anion Gap (10-20) BUN (7-17) mg/dL Creatinine (0.7-1.2) MG/DL Est GFR ( Amer) Est GFR (Non-Af Amer) POC Glucose (mg/dL) 146 H (65-110) mg/dL Random Glucose (65-105) mg/dL Calcium (8.6-10.4) mg/dl Phosphorus (2.5-4.5) mg/dL Magnesium (1.6-2.3) mg/dL Total Bilirubin (0.2-1.3) mg/dL AST (14-36) U/L ALT (9-52) U/L Alkaline Phosphatase (38-126) U/L Total Protein (6.3-8.3) g/dL Albumin (3.5-5.0) g/dL Globulin (2.2-3.9) gm/dL Albumin/Globulin Ratio (1.0-2.1) Laboratory Results - last 24 hr 11/02/16 11/02/16 11/02/16 11:52 19:10 23:39 WBC RBC Hgb Hct MCV MCH MCHC RDW Plt Count MPV Neut % (Auto) Lymph % (Auto) Jay % (Auto) Eos % (Auto) Baso % (Auto) Neut # Lymph # Jay # Eos # Baso # Sodium Potassium Chloride Carbon Dioxide Anion Gap BUN Creatinine Est GFR ( Amer) Est GFR (Non-Af Amer) POC Glucose (mg/dL) 146 H 152 H 64 L Random Glucose Calcium Phosphorus Magnesium Total Bilirubin AST ALT Alkaline Phosphatase Total Protein Albumin Globulin Albumin/Globulin Ratio 11/03/16 11/03/16 11/03/16 00:41 05:20 06:30 WBC RBC Hgb Hct MCV MCH MCHC RDW Plt Count MPV Neut % (Auto) Lymph % (Auto) Jay % (Auto) Eos % (Auto) Baso % (Auto) Neut # Lymph # Jay # Eos # Baso # Sodium 134 Potassium 3.1 L Chloride 97 L Carbon Dioxide 24 Anion Gap 16 BUN 25 H Creatinine 1.4 H Est GFR ( Amer) 44 Est GFR (Non-Af Amer) 37 POC Glucose (mg/dL) 100 165 H Random Glucose 73 Calcium 7.9 L Phosphorus 2.7 Magnesium 1.7 Total Bilirubin 6.8 H AST 51 H D ALT 23 Alkaline Phosphatase 300 H Total Protein 5.9 L Albumin 2.0 L Globulin 3.9 Albumin/Globulin Ratio 0.5 L 11/03/16 06:30 WBC 21.5 H D RBC 2.33 L Hgb 7.5 L Hct 23.3 L MCV 99.7 H D MCH 32.0 H MCHC 32.1 L RDW 22.0 H Plt Count 98 L D MPV 10.5 Neut % (Auto) 80.9 H Lymph % (Auto) 8.0 L Jay % (Auto) 10.0 Eos % (Auto) 0.2 Baso % (Auto) 0.9 Neut # 17.4 H Lymph # 1.7 Jay # 2.1 H Eos # 0.0 Baso # 0.2 Sodium Potassium Chloride Carbon Dioxide Anion Gap BUN Creatinine Est GFR ( Amer) Est GFR (Non-Af Amer) POC Glucose (mg/dL) Random Glucose Calcium Phosphorus Magnesium Total Bilirubin AST ALT Alkaline Phosphatase Total Protein Albumin Globulin Albumin/Globulin Ratio Fingerstick Blood Sugar Results: 135 Review of Systems - Review of Systems Systems not reviewed;Unavailable: Altered Mental Status Assessment/Plan - Assessment and Plan (Free Text) Assessment: 76F admitted for GI bleed; s/p flexible sigmoidoscopy and multiple transfusions. HgB now stable x 6 days Plan: Neuro: -GCS 9T - at baseline likely 2/2 metabolic encephalopathy Pulm: -trach on vent -CT chest shows b/l pleural effusions R>L with subsegmental atelectasis CV: - Septic Shock - BP mildly improved - systolic now 100-110s - Albumin 250 mls at 50 - Norepinephrine 258 mls - Tylenol 650mg IV - Potassium replenished - Dr Long on board. Pt high risk for any procedure but can proceed if clinical indicated - Left hand with ischemic necrosis - consult placed for vasc Dr Buck - likely nothing to do Heme: - H/H (11/03) 7.6/23.6 - will cont to monitor H/H and for rectal bleed - continue transfuse PRN for HgB <7 Renal: - ESRD - HD as per Dr Mcfarland - Dr Trent on consult --> help appreciated Endo: -Insulin sliding scale GI: - NGT for enteral feedings -Consult IR for PEG placement given Ascites - Protonix drip for GI bleed - CT shows significant colitis at rectosigmoid junction - Flexible sigmoidoscopy at bedside 10/28/16 shows ischemic colitis - Fam declined sx - Sx and GI signed off ID: - PO Vanc and Merrem - Septic Shock Pt chronically ill, prognosis very poor DVT proph - SCDs, no anti-coagulation due to acute bleed GI proph - Protonix 40mg IVP daily Disposition: Patient transferred back to ICU Code status - Full Case discussed with Dr. Curry Brewer PGY-1 <Ortiz Zapien - Last Filed: 11/03/16 11:50> CCU Objective - Vital Signs / Intake & Output Vital Signs (Last 4 hours): Vital Signs Temp Pulse Resp BP Pulse Ox 11/03/16 11:14 90 31 H 110/45 L 100 11/03/16 11:00 90 31 H 100 11/03/16 10:59 90 33 H 107/45 L 100 11/03/16 10:44 90 32 H 111/37 L 100 11/03/16 10:29 89 31 H 111/20 L 100 11/03/16 10:14 87 26 H 111/19 L 100 11/03/16 10:05 99.0 F 11/03/16 10:00 85 32 H 107/23 L 98 11/03/16 09:44 68 26 H 78/23 L 100 11/03/16 09:29 70 32 H 75/24 L 99 11/03/16 09:15 70 32 H 80/20 L 86 L 11/03/16 09:00 72 31 H 99 11/03/16 08:59 74 15 93/24 L 94 L 11/03/16 08:50 99.4 F 99 11/03/16 08:44 73 26 H 95/20 L 93 L 11/03/16 08:29 75 31 H 84/17 L 90 L 11/03/16 08:14 72 30 H 70/17 L 88 L 11/03/16 08:00 74 33 H 98 11/03/16 07:59 74 33 H 75/22 L 100 11/03/16 07:44 76 28 H 73/22 L 100 11/03/16 07:40 77 34 H 73/21 L 100 Intake and Output (Last 8hrs): Intake & Output 11/02/16 11/03/16 11/03/16 22:59 06:59 14:59 Intake Total 380 470 866.4 Output Total 200 Balance 180 470 866.4 Weight 122 lb 122 lb 4.8 oz Intake: IV 100 40 Intake, IV Amount 711.4 Right Distal Port PICC 546.4 Right Proximal Port PICC 165 Oral 80 Tube Feeding 280 420 35 Other 50 Output: Stool 200 Other: # Voids Urethral (Sawyer) 0 Urine, Voided 0 - Medications Active Medications: Active Medications Generic Name Dose Route Start Last Admin Trade Name Freq PRN Reason Stop Dose Admin Epoetin Sly 10,000 unit 11/02/16 09:30 11/02/16 09:40 Procrit IV 10,000 unit MWF REKHA Administration Meropenem 500 mg/ Sodium 100 mls @ 100 mls/hr 10/25/16 19:00 11/02/16 18:18 Chloride IVPB 100 mls/hr Q24H REKHA Administration Norepinephrine Bitartrate 8 mg 258 mls @ 7.74 mls/hr 11/02/16 10:44 11/03/16 09:47 / Dextrose IV 20 mcg/min .Q24H PRN 38.7 mls/hr TITRATE PER MD ORDER Titration Protocol 4 MCG/MIN Albumin Human 250 mls @ 50 mls/hr 11/03/16 08:00 11/03/16 08:15 Albumin Human 5% (12.5 Gm/250 Ml) IVPB 11/03/16 12:59 50 mls/hr ONCE ONE Administration Vasopressin 40 units/ Sodium 40 mls @ 0.6 mls/hr 11/03/16 10:00 Chloride IV .Q24H REKHA Protocol 0.01 UNITS/MIN Insulin Human Regular 0 unit 10/26/16 06:00 11/03/16 05:21 Novolin R SC Not Given Q6 REKHA Protocol Levothyroxine Sodium 200 mcg 10/26/16 06:30 11/03/16 06:34 Synthroid PO 200 mcg DAILY@0630 REKHA Administration Midodrine 5 mg 11/01/16 14:00 11/03/16 09:39 Proamatine PO 5 mg TID REKHA Administration Pantoprazole Sodium 40 mg 10/31/16 17:45 11/03/16 09:40 Protonix Susp NG 40 mg DAILY REKHA Administration - Patient Studies Lab Studies: Lab Studies 11/03/16 11/03/16 11/03/16 Range/Units 09:43 09:26 07:55 WBC 23.9 H (4.8-10.8) K/uL RBC 2.39 L (3.80-5.20) Mil/uL Hgb 7.6 L (11.0-16.0) g/dL Hct 23.6 L (34.0-47.0) % MCV 99.0 (81.0-99.0) fL MCH 32.1 H (27.0-31.0) pg MCHC 32.4 L (33.0-37.0) g/dL RDW 20.9 H (11.5-14.5) % Plt Count 96 L (130-400) K/uL MPV 10.1 (7.2-11.7) fL Neut % (Auto) 80.3 H (50.0-75.0) % Lymph % (Auto) 7.6 L (20.0-40.0) % Jay % (Auto) 11.8 H (0.0-10.0) % Eos % (Auto) 0.1 (0.0-4.0) % Baso % (Auto) 0.2 (0.0-2.0) % Neut # 19.2 H (1.8-7.0) K/uL Lymph # 1.8 (1.0-4.3) K/uL Jay # 2.8 H (0.0-0.8) K/uL Eos # 0.0 (0.0-0.7) K/uL Baso # 0.1 (0.0-0.2) K/uL Neutrophils % (Manual) (50-75) % Band Neutrophils % (0-2) % Lymphocytes % (Manual) (20-40) % Monocytes % (Manual) (0-10) % Eosinophils % (Manual) (0-4) % Basophils % (Manual) (0-2) % Platelet Estimate (NORMAL) Polychromasia Hypochromasia (manual) Anisocytosis (manual) Macrocytosis (manual) Target Cells Puncture Site Rr pCO2 31 L (35-45) mm/Hg pO2 366 H (80-100) mm/Hg HCO3 26.3 (21-28) mmol/L ABG pH 7.50 H (7.35-7.45) ABG Total CO2 25.2 (22-28) mmol/L ABG O2 Saturation 100.7 H (95-98) % ABG Base Excess 1.7 (-2.0-3.0) mmol/L [place] Test Pos ABG Potassium 3.4 L (3.6-5.2) mmol/L A-a O2 Difference 308.0 mm/Hg Respiratory Index 0.8 Glucose 98 (65-105) mg/dl Lactate 3.8 H (0.7-2.1) mmol/L Vent Mode A/c Mechanical Rate 14 FiO2 100.0 % Tidal Volume 300 PEEP 5 Sodium 136.0 (132-148) mmol/L Potassium (3.6-5.2) mmol/L Chloride 106.0 (98-107) mmol/L Carbon Dioxide (22-30) mmol/L Anion Gap (10-20) BUN (7-17) mg/dL Creatinine (0.7-1.2) MG/DL Est GFR ( Amer) Est GFR (Non-Af Amer) POC Glucose (mg/dL) 106 (65-110) mg/dL Random Glucose (65-105) mg/dL Calcium (8.6-10.4) mg/dl Phosphorus (2.5-4.5) mg/dL Magnesium (1.6-2.3) mg/dL Total Bilirubin (0.2-1.3) mg/dL AST (14-36) U/L ALT (9-52) U/L Alkaline Phosphatase (38-126) U/L Total Protein (6.3-8.3) g/dL Albumin (3.5-5.0) g/dL Globulin (2.2-3.9) gm/dL Albumin/Globulin Ratio (1.0-2.1) Arterial Blood Potassium 3.4 L (3.6-5.2) mmol/L 11/03/16 11/03/16 11/03/16 Range/Units 06:30 06:30 05:20 WBC 21.5 H D (4.8-10.8) K/uL RBC 2.33 L (3.80-5.20) Mil/uL Hgb 7.5 L (11.0-16.0) g/dL Hct 23.3 L (34.0-47.0) % MCV 99.7 H D (81.0-99.0) fL MCH 32.0 H (27.0-31.0) pg MCHC 32.1 L (33.0-37.0) g/dL RDW 22.0 H (11.5-14.5) % Plt Count 98 L D (130-400) K/uL MPV 10.5 (7.2-11.7) fL Neut % (Auto) 80.9 H (50.0-75.0) % Lymph % (Auto) 8.0 L (20.0-40.0) % Jay % (Auto) 10.0 (0.0-10.0) % Eos % (Auto) 0.2 (0.0-4.0) % Baso % (Auto) 0.9 (0.0-2.0) % Neut # 17.4 H (1.8-7.0) K/uL Lymph # 1.7 (1.0-4.3) K/uL Jay # 2.1 H (0.0-0.8) K/uL Eos # 0.0 (0.0-0.7) K/uL Baso # 0.2 (0.0-0.2) K/uL Neutrophils % (Manual) 55 (50-75) % Band Neutrophils % 19 H* (0-2) % Lymphocytes % (Manual) 7 L (20-40) % Monocytes % (Manual) 17 H (0-10) % Eosinophils % (Manual) 1 (0-4) % Basophils % (Manual) 1 (0-2) % Platelet Estimate Decreased L (NORMAL) Polychromasia Slight Hypochromasia (manual) Slight Anisocytosis (manual) Moderate Macrocytosis (manual) Slight Target Cells Slight Puncture Site pCO2 (35-45) mm/Hg pO2 (80-100) mm/Hg HCO3 (21-28) mmol/L ABG pH (7.35-7.45) ABG Total CO2 (22-28) mmol/L ABG O2 Saturation (95-98) % ABG Base Excess (-2.0-3.0) mmol/L [place] Test ABG Potassium (3.6-5.2) mmol/L A-a O2 Difference mm/Hg Respiratory Index Glucose (65-105) mg/dl Lactate (0.7-2.1) mmol/L Vent Mode Mechanical Rate FiO2 % Tidal Volume PEEP Sodium 134 (132-148) mmol/L Potassium 3.1 L (3.6-5.2) mmol/L Chloride 97 L (98-107) mmol/L Carbon Dioxide 24 (22-30) mmol/L Anion Gap 16 (10-20) BUN 25 H (7-17) mg/dL Creatinine 1.4 H (0.7-1.2) MG/DL Est GFR ( Amer) 44 Est GFR (Non-Af Amer) 37 POC Glucose (mg/dL) 165 H (65-110) mg/dL Random Glucose 73 (65-105) mg/dL Calcium 7.9 L (8.6-10.4) mg/dl Phosphorus 2.7 (2.5-4.5) mg/dL Magnesium 1.7 (1.6-2.3) mg/dL Total Bilirubin 6.8 H (0.2-1.3) mg/dL AST 51 H D (14-36) U/L ALT 23 (9-52) U/L Alkaline Phosphatase 300 H (38-126) U/L Total Protein 5.9 L (6.3-8.3) g/dL Albumin 2.0 L (3.5-5.0) g/dL Globulin 3.9 (2.2-3.9) gm/dL Albumin/Globulin Ratio 0.5 L (1.0-2.1) Arterial Blood Potassium (3.6-5.2) mmol/L 11/03/16 11/02/16 11/02/16 Range/Units 00:41 23:39 19:10 WBC (4.8-10.8) K/uL RBC (3.80-5.20) Mil/uL Hgb (11.0-16.0) g/dL Hct (34.0-47.0) % MCV (81.0-99.0) fL MCH (27.0-31.0) pg MCHC (33.0-37.0) g/dL RDW (11.5-14.5) % Plt Count (130-400) K/uL MPV (7.2-11.7) fL Neut % (Auto) (50.0-75.0) % Lymph % (Auto) (20.0-40.0) % Jay % (Auto) (0.0-10.0) % Eos % (Auto) (0.0-4.0) % Baso % (Auto) (0.0-2.0) % Neut # (1.8-7.0) K/uL Lymph # (1.0-4.3) K/uL Jay # (0.0-0.8) K/uL Eos # (0.0-0.7) K/uL Baso # (0.0-0.2) K/uL Neutrophils % (Manual) (50-75) % Band Neutrophils % (0-2) % Lymphocytes % (Manual) (20-40) % Monocytes % (Manual) (0-10) % Eosinophils % (Manual) (0-4) % Basophils % (Manual) (0-2) % Platelet Estimate (NORMAL) Polychromasia Hypochromasia (manual) Anisocytosis (manual) Macrocytosis (manual) Target Cells Puncture Site pCO2 (35-45) mm/Hg pO2 (80-100) mm/Hg HCO3 (21-28) mmol/L ABG pH (7.35-7.45) ABG Total CO2 (22-28) mmol/L ABG O2 Saturation (95-98) % ABG Base Excess (-2.0-3.0) mmol/L [place] Test ABG Potassium (3.6-5.2) mmol/L A-a O2 Difference mm/Hg Respiratory Index Glucose (65-105) mg/dl Lactate (0.7-2.1) mmol/L Vent Mode Mechanical Rate FiO2 % Tidal Volume PEEP Sodium (132-148) mmol/L Potassium (3.6-5.2) mmol/L Chloride (98-107) mmol/L Carbon Dioxide (22-30) mmol/L Anion Gap (10-20) BUN (7-17) mg/dL Creatinine (0.7-1.2) MG/DL Est GFR ( Amer) Est GFR (Non-Af Amer) POC Glucose (mg/dL) 100 64 L 152 H (65-110) mg/dL Random Glucose (65-105) mg/dL Calcium (8.6-10.4) mg/dl Phosphorus (2.5-4.5) mg/dL Magnesium (1.6-2.3) mg/dL Total Bilirubin (0.2-1.3) mg/dL AST (14-36) U/L ALT (9-52) U/L Alkaline Phosphatase (38-126) U/L Total Protein (6.3-8.3) g/dL Albumin (3.5-5.0) g/dL Globulin (2.2-3.9) gm/dL Albumin/Globulin Ratio (1.0-2.1) Arterial Blood Potassium (3.6-5.2) mmol/L 11/02/16 Range/Units 11:52 WBC (4.8-10.8) K/uL RBC (3.80-5.20) Mil/uL Hgb (11.0-16.0) g/dL Hct (34.0-47.0) % MCV (81.0-99.0) fL MCH (27.0-31.0) pg MCHC (33.0-37.0) g/dL RDW (11.5-14.5) % Plt Count (130-400) K/uL MPV (7.2-11.7) fL Neut % (Auto) (50.0-75.0) % Lymph % (Auto) (20.0-40.0) % Jay % (Auto) (0.0-10.0) % Eos % (Auto) (0.0-4.0) % Baso % (Auto) (0.0-2.0) % Neut # (1.8-7.0) K/uL Lymph # (1.0-4.3) K/uL Jay # (0.0-0.8) K/uL Eos # (0.0-0.7) K/uL Baso # (0.0-0.2) K/uL Neutrophils % (Manual) (50-75) % Band Neutrophils % (0-2) % Lymphocytes % (Manual) (20-40) % Monocytes % (Manual) (0-10) % Eosinophils % (Manual) (0-4) % Basophils % (Manual) (0-2) % Platelet Estimate (NORMAL) Polychromasia Hypochromasia (manual) Anisocytosis (manual) Macrocytosis (manual) Target Cells Puncture Site pCO2 (35-45) mm/Hg pO2 (80-100) mm/Hg HCO3 (21-28) mmol/L ABG pH (7.35-7.45) ABG Total CO2 (22-28) mmol/L ABG O2 Saturation (95-98) % ABG Base Excess (-2.0-3.0) mmol/L [place] Test ABG Potassium (3.6-5.2) mmol/L A-a O2 Difference mm/Hg Respiratory Index Glucose (65-105) mg/dl Lactate (0.7-2.1) mmol/L Vent Mode Mechanical Rate FiO2 % Tidal Volume PEEP Sodium (132-148) mmol/L Potassium (3.6-5.2) mmol/L Chloride (98-107) mmol/L Carbon Dioxide (22-30) mmol/L Anion Gap (10-20) BUN (7-17) mg/dL Creatinine (0.7-1.2) MG/DL Est GFR ( Amer) Est GFR (Non-Af Amer) POC Glucose (mg/dL) 146 H (65-110) mg/dL Random Glucose (65-105) mg/dL Calcium (8.6-10.4) mg/dl Phosphorus (2.5-4.5) mg/dL Magnesium (1.6-2.3) mg/dL Total Bilirubin (0.2-1.3) mg/dL AST (14-36) U/L ALT (9-52) U/L Alkaline Phosphatase (38-126) U/L Total Protein (6.3-8.3) g/dL Albumin (3.5-5.0) g/dL Globulin (2.2-3.9) gm/dL Albumin/Globulin Ratio (1.0-2.1) Arterial Blood Potassium (3.6-5.2) mmol/L Laboratory Results - last 24 hr 11/02/16 11/02/16 11/02/16 11:52 19:10 23:39 WBC RBC Hgb Hct MCV MCH MCHC RDW Plt Count MPV Neut % (Auto) Lymph % (Auto) Jay % (Auto) Eos % (Auto) Baso % (Auto) Neut # Lymph # Jay # Eos # Baso # Neutrophils % (Manual) Band Neutrophils % Lymphocytes % (Manual) Monocytes % (Manual) Eosinophils % (Manual) Basophils % (Manual) Platelet Estimate Polychromasia Hypochromasia (manual) Anisocytosis (manual) Macrocytosis (manual) Target Cells Puncture Site pCO2 pO2 HCO3 ABG pH ABG Total CO2 ABG O2 Saturation ABG Base Excess [place] Test ABG Potassium A-a O2 Difference Respiratory Index Glucose Lactate Vent Mode Mechanical Rate FiO2 Tidal Volume PEEP Sodium Potassium Chloride Carbon Dioxide Anion Gap BUN Creatinine Est GFR ( Amer) Est GFR (Non-Af Amer) POC Glucose (mg/dL) 146 H 152 H 64 L Random Glucose Calcium Phosphorus Magnesium Total Bilirubin AST ALT Alkaline Phosphatase Total Protein Albumin Globulin Albumin/Globulin Ratio Arterial Blood Potassium 11/03/16 11/03/16 11/03/16 00:41 05:20 06:30 WBC RBC Hgb Hct MCV MCH MCHC RDW Plt Count MPV Neut % (Auto) Lymph % (Auto) Jay % (Auto) Eos % (Auto) Baso % (Auto) Neut # Lymph # Jay # Eos # Baso # Neutrophils % (Manual) Band Neutrophils % Lymphocytes % (Manual) Monocytes % (Manual) Eosinophils % (Manual) Basophils % (Manual) Platelet Estimate Polychromasia Hypochromasia (manual) Anisocytosis (manual) Macrocytosis (manual) Target Cells Puncture Site pCO2 pO2 HCO3 ABG pH ABG Total CO2 ABG O2 Saturation ABG Base Excess [place] Test ABG Potassium A-a O2 Difference Respiratory Index Glucose Lactate Vent Mode Mechanical Rate FiO2 Tidal Volume PEEP Sodium 134 Potassium 3.1 L Chloride 97 L Carbon Dioxide 24 Anion Gap 16 BUN 25 H Creatinine 1.4 H Est GFR ( Amer) 44 Est GFR (Non-Af Amer) 37 POC Glucose (mg/dL) 100 165 H Random Glucose 73 Calcium 7.9 L Phosphorus 2.7 Magnesium 1.7 Total Bilirubin 6.8 H AST 51 H D ALT 23 Alkaline Phosphatase 300 H Total Protein 5.9 L Albumin 2.0 L Globulin 3.9 Albumin/Globulin Ratio 0.5 L Arterial Blood Potassium 11/03/16 11/03/16 11/03/16 06:30 07:55 09:26 WBC 21.5 H D 23.9 H RBC 2.33 L 2.39 L Hgb 7.5 L 7.6 L Hct 23.3 L 23.6 L MCV 99.7 H D 99.0 MCH 32.0 H 32.1 H MCHC 32.1 L 32.4 L RDW 22.0 H 20.9 H Plt Count 98 L D 96 L MPV 10.5 10.1 Neut % (Auto) 80.9 H 80.3 H Lymph % (Auto) 8.0 L 7.6 L Jay % (Auto) 10.0 11.8 H Eos % (Auto) 0.2 0.1 Baso % (Auto) 0.9 0.2 Neut # 17.4 H 19.2 H Lymph # 1.7 1.8 Jay # 2.1 H 2.8 H Eos # 0.0 0.0 Baso # 0.2 0.1 Neutrophils % (Manual) 55 Band Neutrophils % 19 H* Lymphocytes % (Manual) 7 L Monocytes % (Manual) 17 H Eosinophils % (Manual) 1 Basophils % (Manual) 1 Platelet Estimate Decreased L Polychromasia Slight Hypochromasia (manual) Slight Anisocytosis (manual) Moderate Macrocytosis (manual) Slight Target Cells Slight Puncture Site pCO2 pO2 HCO3 ABG pH ABG Total CO2 ABG O2 Saturation ABG Base Excess [place] Test ABG Potassium A-a O2 Difference Respiratory Index Glucose Lactate Vent Mode Mechanical Rate FiO2 Tidal Volume PEEP Sodium Potassium Chloride Carbon Dioxide Anion Gap BUN Creatinine Est GFR ( Amer) Est GFR (Non-Af Amer) POC Glucose (mg/dL) 106 Random Glucose Calcium Phosphorus Magnesium Total Bilirubin AST ALT Alkaline Phosphatase Total Protein Albumin Globulin Albumin/Globulin Ratio Arterial Blood Potassium 11/03/16 09:43 WBC RBC Hgb Hct MCV MCH MCHC RDW Plt Count MPV Neut % (Auto) Lymph % (Auto) Jay % (Auto) Eos % (Auto) Baso % (Auto) Neut # Lymph # Jay # Eos # Baso # Neutrophils % (Manual) Band Neutrophils % Lymphocytes % (Manual) Monocytes % (Manual) Eosinophils % (Manual) Basophils % (Manual) Platelet Estimate Polychromasia Hypochromasia (manual) Anisocytosis (manual) Macrocytosis (manual) Target Cells Puncture Site Rr pCO2 31 L pO2 366 H HCO3 26.3 ABG pH 7.50 H ABG Total CO2 25.2 ABG O2 Saturation 100.7 H ABG Base Excess 1.7 [place] Test Pos ABG Potassium 3.4 L A-a O2 Difference 308.0 Respiratory Index 0.8 Glucose 98 Lactate 3.8 H Vent Mode A/c Mechanical Rate 14 FiO2 100.0 Tidal Volume 300 PEEP 5 Sodium 136.0 Potassium Chloride 106.0 Carbon Dioxide Anion Gap BUN Creatinine Est GFR ( Amer) Est GFR (Non-Af Amer) POC Glucose (mg/dL) Random Glucose Calcium Phosphorus Magnesium Total Bilirubin AST ALT Alkaline Phosphatase Total Protein Albumin Globulin Albumin/Globulin Ratio Arterial Blood Potassium 3.4 L Attending/Attestation - Attestation I have personally seen and examined this patient.: Yes I have fully participated in the care of the patient.: Yes I have reviewed all pertinent clinical information: Yes Notes (Text): 11/03/16 11:34 I have seen and examined the patient. Medical records, lab studies, and imaging were reviewed by me and a management plan was formulated on multidisciplinary rounds with resident Dr. Brewer. I agree with their above documented assessment and plan. Patient is clinically deteriorating. Daughter is not comprehending this. Patient is in septic shock, possible worsening ischemic colitis. Mortality is extremely high and she will not survive this hospitalization. Now on two pressors. Gangrenous fingertips. Chronic respiratory failure. Comatose from metabolic encephalopathy. Critical Care Time 35 minutes. Multi-disciplinary rounds were performed with house staff, nursing, speech therapy, respiratory therapy, pharmacy and nutrition with integrated input from the primary team/attending and other consulting services. The documented time is cumulative and includes review of patient data/exams/labs/chart review and examination of the patient on rounds and throughout the day; time is exclusive of any procedures or teaching time. 11/03/16 11:46
[2016-11-03 07:59] LABS: BASO # 0.1 K/uL (0.0-0.2); BASO % 0.2 % (0.0-2.0); EOS % 0.1 % (0.0-4.0); HEMATOCRIT 23.6 % (34.0-47.0); LYMPH # 1.8 K/uL (1.0-4.3); LYMPH % 7.6 % (20.0-40.0); MEAN CORPUSCULAR HEMOGLOBIN 32.1 pg (27.0-31.0); MEAN CORPUSCULAR HGB CONC 32.4 g/dL (33.0-37.0); MEAN PLATELET VOLUME 10.1 fL (7.2-11.7); MONO # 2.8 K/uL (0.0-0.8); MONO % 11.8 % (0.0-10.0); NRBC % 0.2 % (0.0-2.0); RED CELL DISTRIBUTION WIDTH 20.9 % (11.5-14.5); WHITE BLOOD COUNT 23.9 K/uL (4.8-10.8)
[2016-11-03] MEDS ORDERED: ACETAMINOPHEN IV ONE (08:00)
[2016-11-03 08:22] LABS: BASOPHIL 1 % (0-2); EOSINOPHIL 1 % (0-4); NEUTROPHIL 55 % (50-75); TOTAL CELLS COUNTED 100
--- NOTE | 2016-11-03 09:10 | CP.PCM.PN ---
Subjective - Date & Time of Evaluation Date of Evaluation: 11/03/16 Time of Evaluation: 09:05 - Subjective Subjective: events noted- Hg has dropped again, <8 remains on vent, not responsive now s/p dialysis 11/02- tolerated ok now febrile, hypotensive- on levophed at 7 mcg/min receiving IV albumin, levophed likely septic- new cultures ordered still with diarrhea Objective - Vital Signs/Intake and Output Vital Signs (last 24 hours): Temp Pulse Resp BP Pulse Ox 98.7 F 74 23 117/47 L 100 11/03/16 00:00 11/03/16 04:17 11/03/16 04:17 11/03/16 04:17 11/03/16 04:17 Intake and Output: 11/03/16 11/03/16 06:59 18:59 Intake Total 850 0 Output Total 200 Balance 650 0 - Medications Medications: Current Medications Epoetin Sly (Procrit) 10,000 unit IV MWF [facility] Last Admin: 11/02/16 09:40 Dose: 10,000 unit Meropenem 500 mg/ Sodium (Chloride) 100 mls @ 100 mls/hr IVPB Q24H [facility] Last Admin: 11/02/16 18:18 Dose: 100 mls/hr Norepinephrine Bitartrate 8 mg (/ Dextrose) 258 mls @ 7.74 mls/hr IV .Q24H PRN ; Protocol; 4 MCG/MIN PRN Reason: TITRATE PER MD ORDER Last Titration: 11/03/16 07:15 Dose: 7 mcg/min, 13.54 mls/hr Albumin Human (Albumin Human 5% (12.5 Gm/250 Ml)) 250 mls @ 50 mls/hr IVPB ONCE ONE Stop: 11/03/16 12:59 Last Admin: 11/03/16 08:15 Dose: 50 mls/hr Potassium Chloride (Potassium Chloride 20 Meq/100 Ml) 20 meq in 100 mls @ 50 mls/hr IVPB ONCE ONE Stop: 11/03/16 09:59 Last Admin: 11/03/16 07:58 Dose: 50 mls/hr Potassium Chloride (Potassium Chloride 20 Meq/100 Ml) 20 meq in 100 mls @ 50 mls/hr IVPB ONCE ONE Stop: 11/03/16 10:59 Insulin Human Regular (Novolin R) 0 unit SC Q6 [facility] PRN Reason: Protocol Last Admin: 11/03/16 05:21 Dose: Not Given Levothyroxine Sodium (Synthroid) 200 mcg PO DAILY@0630 [facility] Last Admin: 11/03/16 06:34 Dose: 200 mcg Midodrine (Proamatine) 5 mg PO TID [facility] Last Admin: 11/02/16 18:18 Dose: 5 mg Pantoprazole Sodium (Protonix Susp) 40 mg NG DAILY [facility] Last Admin: 11/02/16 09:43 Dose: 40 mg - Labs Labs: 11/03/16 07:55 11/03/16 06:30 PT 19.5 SECONDS (9.7-12.2) H 10/28/16 08:07 INR 1.7 10/28/16 08:07 APTT 49 SECONDS (21-34) H 10/25/16 16:33 - Constitutional Appears: Toxic, In Acute Distress, Chronically Ill - Head Exam Head Exam: ATRAUMATIC, NORMAL INSPECTION - Neck Exam Neck Exam: Normal Inspection. absent: Tenderness - Respiratory Exam Respiratory Exam: Decreased Breath Sounds, Respiratory Distress - Cardiovascular Exam Cardiovascular Exam: REGULAR RHYTHM, +S1 - GI/Abdominal Exam GI & Abdominal Exam: Soft. absent: Tenderness - Extremities Exam Extremities Exam: Normal Inspection. absent: Tenderness - Neurological Exam Neurological Exam: Altered, Motor Sensory Deficit - Skin Skin Exam: Dry, Warm Assessment and Plan (1) Lower GI bleed Status: Acute (2) Diabetic nephropathy with proteinuria Status: Acute (3) CHF (congestive heart failure) Status: Chronic (4) ESRD (end stage renal disease) on dialysis Status: Chronic - Assessment and Plan (Free Text) Plan: Hester-culture Repeat blood transfusion with dialysis 11/04 Dialysis 11/04 Pressors as needed Prognosis poor- daughter to be informed
--- NOTE | 2016-11-03 09:33 | CP.PCM.PN ---
Subjective - Date & Time of Evaluation Date of Evaluation: 11/03/16 Time of Evaluation: 08:45 - Subjective Subjective: Vascular sx progress note for Dr. Berry Chen, PGY-1 Pt S & E at bedside Pt with eyes open, not tracking, non responsive to light tactile stimuli. Objective - Vital Signs/Intake and Output Vital Signs (last 24 hours): Temp Pulse Resp BP Pulse Ox 98.7 F 74 23 117/47 L 100 11/03/16 00:00 11/03/16 04:17 11/03/16 04:17 11/03/16 04:17 11/03/16 04:17 Intake and Output: 11/03/16 11/03/16 06:59 18:59 Intake Total 850 0 Output Total 200 Balance 650 0 - Medications Medications: Current Medications Epoetin Sly (Procrit) 10,000 unit IV MWF [facility] Last Admin: 11/02/16 09:40 Dose: 10,000 unit Meropenem 500 mg/ Sodium (Chloride) 100 mls @ 100 mls/hr IVPB Q24H [facility] Last Admin: 11/02/16 18:18 Dose: 100 mls/hr Norepinephrine Bitartrate 8 mg (/ Dextrose) 258 mls @ 7.74 mls/hr IV .Q24H PRN ; Protocol; 4 MCG/MIN PRN Reason: TITRATE PER MD ORDER Last Titration: 11/03/16 07:15 Dose: 7 mcg/min, 13.54 mls/hr Albumin Human (Albumin Human 5% (12.5 Gm/250 Ml)) 250 mls @ 50 mls/hr IVPB ONCE ONE Stop: 11/03/16 12:59 Last Admin: 11/03/16 08:15 Dose: 50 mls/hr Potassium Chloride (Potassium Chloride 20 Meq/100 Ml) 20 meq in 100 mls @ 50 mls/hr IVPB ONCE ONE Stop: 11/03/16 09:59 Last Admin: 11/03/16 07:58 Dose: 50 mls/hr Potassium Chloride (Potassium Chloride 20 Meq/100 Ml) 20 meq in 100 mls @ 50 mls/hr IVPB ONCE ONE Stop: 11/03/16 10:59 Insulin Human Regular (Novolin R) 0 unit SC Q6 [facility] PRN Reason: Protocol Last Admin: 11/03/16 05:21 Dose: Not Given Levothyroxine Sodium (Synthroid) 200 mcg PO DAILY@0630 [facility] Last Admin: 11/03/16 06:34 Dose: 200 mcg Midodrine (Proamatine) 5 mg PO TID [facility] Last Admin: 11/02/16 18:18 Dose: 5 mg Pantoprazole Sodium (Protonix Susp) 40 mg NG DAILY [facility] Last Admin: 11/02/16 09:43 Dose: 40 mg - Labs Labs: 11/03/16 07:55 11/03/16 06:30 PT 19.5 SECONDS (9.7-12.2) H 10/28/16 08:07 INR 1.7 10/28/16 08:07 APTT 49 SECONDS (21-34) H 10/25/16 16:33 - Constitutional Appears: No Acute Distress, Chronically Ill - Head Exam Head Exam: ATRAUMATIC, NORMAL INSPECTION, NORMOCEPHALIC - ENT Exam ENT Exam: Mucous Membranes Dry - Neck Exam Additional comments: tracheostomy in place- non bloody - Respiratory Exam Respiratory Exam: Clear to Ausculation Bilateral, NORMAL BREATHING PATTERN Additional comments: on mech vent - Cardiovascular Exam Cardiovascular Exam: REGULAR RHYTHM, +S1, +S2 - GI/Abdominal Exam GI & Abdominal Exam: Distended, Soft, Hypoactive Bowel Sounds. absent: Firm, Guarding, Rigid - Rectal Exam Additional comments: rectal tube in place - Extremities Exam Extremities Exam: absent: Normal Capillary Refill, Normal Inspection (Left 2nd digit with necrosis of distal end. ) Additional comments: LUE AVF in place; left arm distal radial pulse audible on doppler exam- diminished - Neurological Exam Neurological Exam: absent: Alert, Awake, Oriented x3 - Psychiatric Exam Additional comments: non verbal - Skin Skin Exam: Dry. 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
[2016-11-03] MEDS: Pantoprazole 40 mg Susp UD NG SCH (09:40)
[2016-11-03 09:46] LABS: ABG ALLEN TEST POS; ABG MECHANICAL RATE 14; ARTERIAL BLOOD GAS MODE A/C; ATERIAL BLOOD GAS PEEP 5; DRAW SITE RR
--- NOTE | 2016-11-03 10:11 | PCM.SEPTIC ---
Sepsis Progress Note - Reassessment Type Date of Evaluation: 11/03/16 Time of Evaluation: 10:08 Reassessment Type: Non-invasive reassessment - Non Invasive Reassessment Were the most recent vital sign reviewed: Yes Vital Sign (Latest): Temp Pulse Resp BP Pulse Ox 98.7 F 74 23 117/47 L 100 11/03/16 00:00 11/03/16 04:17 11/03/16 04:17 11/03/16 04:17 11/03/16 04:17 Cardiovascular: Yes: Regular Rate, Rhythm Respiratory: Yes: Other (Patient on ventilator ) Capillary Refill: Delayed Pulses: Absent Radial, Absent Dorsalis Pedis, Absent Posterior Tibialis Skin: Other (cold, necrotic left 3rd digit ) - Invasive Reassessment (complete 2 of 4) Was a Central Venous Pressure Measurement obtained within 6 Hours after the presentation of septic shock: No Was a central venous oxygen measurement obtained within 6 hours after the presentation of septic shock: No Was a bedside cardiovascular ultrasound performed within 6 hours after the presentation of septic shock: No Was a passive leg raise performed or was a fluid challenge performed within 6 hrs of the initial fluid bolus: No
--- NOTE | 2016-11-03 10:29 | CP.PCM.PN ---
Subjective - Date & Time of Evaluation Date of Evaluation: 11/03/16 Time of Evaluation: 10:27 - Subjective Subjective: Patient is unresponsive to stimuli. Diagnosed with sepsis for WBC 23 with bands. Objective - Vital Signs/Intake and Output Vital Signs (last 24 hours): Temp Pulse Resp BP Pulse Ox 98.7 F 74 23 117/47 L 100 11/03/16 00:00 11/03/16 04:17 11/03/16 04:17 11/03/16 04:17 11/03/16 04:17 Intake and Output: 11/03/16 11/03/16 06:59 18:59 Intake Total 850 40 Output Total 200 Balance 650 40 - Medications Medications: Current Medications Epoetin Sly (Procrit) 10,000 unit IV MWF [facility] Last Admin: 11/02/16 09:40 Dose: 10,000 unit Meropenem 500 mg/ Sodium (Chloride) 100 mls @ 100 mls/hr IVPB Q24H [facility] Last Admin: 11/02/16 18:18 Dose: 100 mls/hr Norepinephrine Bitartrate 8 mg (/ Dextrose) 258 mls @ 7.74 mls/hr IV .Q24H PRN ; Protocol; 4 MCG/MIN PRN Reason: TITRATE PER MD ORDER Last Titration: 11/03/16 09:47 Dose: 20 mcg/min, 38.7 mls/hr Albumin Human (Albumin Human 5% (12.5 Gm/250 Ml)) 250 mls @ 50 mls/hr IVPB ONCE ONE Stop: 11/03/16 12:59 Last Admin: 11/03/16 08:15 Dose: 50 mls/hr Vasopressin 40 units/ Sodium (Chloride) 40 mls @ 0.6 mls/hr IV .Q24H [facility]; 0.01 UNITS/MIN PRN Reason: Protocol Insulin Human Regular (Novolin R) 0 unit SC Q6 [facility] PRN Reason: Protocol Last Admin: 11/03/16 05:21 Dose: Not Given Levothyroxine Sodium (Synthroid) 200 mcg PO DAILY@0630 [facility] Last Admin: 11/03/16 06:34 Dose: 200 mcg Midodrine (Proamatine) 5 mg PO TID [facility] Last Admin: 11/03/16 09:39 Dose: 5 mg Pantoprazole Sodium (Protonix Susp) 40 mg NG DAILY [facility] Last Admin: 11/03/16 09:40 Dose: 40 mg - Labs Labs: 11/03/16 07:55 11/03/16 06:30 PT 19.5 SECONDS (9.7-12.2) H 10/28/16 08:07 INR 1.7 10/28/16 08:07 APTT 49 SECONDS (21-34) H 10/25/16 16:33 - Constitutional Appears: Toxic, Chronically Ill - Head Exam Head Exam: ATRAUMATIC, NORMAL INSPECTION, NORMOCEPHALIC - Eye Exam Pupil Exam: Fixed Additional comments: No corneal reflex - ENT Exam ENT Exam: Mucous Membranes Dry - Neck Exam Additional comments: Trach - Respiratory Exam Additional comments: On MV support - Cardiovascular Exam Additional comments: On Levophed - GI/Abdominal Exam GI & Abdominal Exam: Hypoactive Bowel Sounds - Rectal Exam Rectal Exam: Deferred - Extremities Exam Additional comments: poor perfusion, necrotic cnahges - Neurological Exam Neurological Exam: Motor Sensory Deficit Neuro motor strength exam: Left Upper Extremity: 0, Right Upper Extremity: 0, Left Lower Extremity: 0, Right Lower Extremity: 0 - Psychiatric Exam Psychiatric exam: Flat Affect - Skin Skin Exam: Cyanosis, Dry, Pallor Assessment and Plan - Assessment and Plan (Free Text) Assessment: Patient is actively dying. BP 78/23 on pressors. patient in respiratory alcalosis.Pulse very sluggish detected by Doppler at groin area. Patient is unresponsive to stimuli. GCS of 3. Pupils fixed, corneal reflex absent.Necrotic changes to nails bed and all fingers and toes. Skin dry, pale. Patient daughter Marc called for discussion of comfort measures. At bed side with Doctor Thelma present, patient's condition and terminal prognosis reviewed with the daughter. The daughter still denies what is obvious and is holding to her impression that the patient was" fine" last night. Patient's terminal condition reviewed again using the words " active dying". Comfort measures suggested including stopping of IV pressors and assigning the DNR status and promoting comfortable . The daughter asked for time alone before decision was made. We respected her privacy. Impression * Patient is actively dying * The quality of life is completely lost due to complex and long medical Hx * Patient's daughter is biased by her cultural believes and is not able to see her mother's suffering * Patient's wishes for the end of life care are not known; daughter is advocating for her Suggestion * Would stop IV pressors * DNR is a appropriate level of care for this patient * Would initiate comfort measures and promote peaceful
[2016-11-03] MEDS ORDERED: Acetaminophen 650mg/20.3ml solution UD PO PRN ×2 (12:27→12:38)
[2016-11-03] MEDS: Meropenem 500 MG in Sodium Chloride 0.9% 100 ML IVPB SCH (18:15)
--- NOTE | 2016-11-03 22:35 | CP.PCM.PN ---
Subjective - Date & Time of Evaluation Date of Evaluation: 11/03/16 Time of Evaluation: 17:10 - Subjective Subjective: Patient seen and evaluated Condition remains poor Conservative mgt Objective - Vital Signs/Intake and Output Vital Signs (last 24 hours): Temp Pulse Resp BP Pulse Ox 99.2 F 91 H 33 H 157/30 H 100 11/03/16 20:00 11/03/16 22:03 11/03/16 22:03 11/03/16 22:03 11/03/16 22:03 Intake and Output: 11/03/16 11/04/16 18:59 06:59 Intake Total 2135.8 348.4 Output Total 125 Balance 2010.8 348.4 - Medications Medications: Current Medications Acetaminophen (Tylenol 650mg/20.3ml Solution Ud) 650 mg PO Q6 PRN PRN Reason: Temperature Last Admin: 11/03/16 12:55 Dose: 650 mg Epoetin Sly (Procrit) 10,000 unit IV MWF [facility] Last Admin: 11/02/16 09:40 Dose: 10,000 unit Meropenem 500 mg/ Sodium (Chloride) 100 mls @ 100 mls/hr IVPB Q24H [facility] Last Admin: 11/03/16 18:15 Dose: 100 mls/hr Norepinephrine Bitartrate 8 mg (/ Dextrose) 258 mls @ 7.74 mls/hr IV .Q24H PRN ; Protocol; 4 MCG/MIN PRN Reason: TITRATE PER MD ORDER Last Admin: 11/03/16 20:59 Dose: 14 mcg/min, 27.09 mls/hr Vasopressin 40 units/ Sodium (Chloride) 40 mls @ 0.6 mls/hr IV .Q24H [facility]; 0.01 UNITS/MIN PRN Reason: Protocol Last Admin: 11/03/16 12:51 Dose: Not Given Insulin Human Regular (Novolin R) 0 unit SC Q6 [facility] PRN Reason: Protocol Last Admin: 11/03/16 18:17 Dose: Not Given Levothyroxine Sodium (Synthroid) 200 mcg PO DAILY@0630 [facility] Last Admin: 11/03/16 06:34 Dose: 200 mcg Midodrine (Proamatine) 5 mg PO TID [facility] Last Admin: 11/03/16 18:15 Dose: 5 mg Pantoprazole Sodium (Protonix Susp) 40 mg NG DAILY [facility] Last Admin: 11/03/16 09:40 Dose: 40 mg - Labs Labs: 11/03/16 07:55 11/03/16 06:30 PT 19.5 SECONDS (9.7-12.2) H 10/28/16 08:07 INR 1.7 10/28/16 08:07 APTT 49 SECONDS (21-34) H 10/25/16 16:33
--- NOTE | 2016-11-03 22:50 | CP.PCM.PN ---
Subjective - Date & Time of Evaluation Date of Evaluation: 11/03/16 Time of Evaluation: 22:50 - Subjective Subjective: Condition condition remains same. Episodes of apnea noted. On ventilator. Spoke to the family. We'll continue the current treatment. Objective - Vital Signs/Intake and Output Vital Signs (last 24 hours): Temp Pulse Resp BP Pulse Ox 99.2 F 91 H 33 H 157/30 H 100 11/03/16 20:00 11/03/16 22:03 11/03/16 22:03 11/03/16 22:03 11/03/16 22:03 Intake and Output: 11/03/16 11/04/16 18:59 06:59 Intake Total 2135.8 356.4 Output Total 125 Balance 2010.8 356.4 - Medications Medications: Current Medications Acetaminophen (Tylenol 650mg/20.3ml Solution Ud) 650 mg PO Q6 PRN PRN Reason: Temperature Last Admin: 11/03/16 12:55 Dose: 650 mg Epoetin Sly (Procrit) 10,000 unit IV MWF [facility] Last Admin: 11/02/16 09:40 Dose: 10,000 unit Meropenem 500 mg/ Sodium (Chloride) 100 mls @ 100 mls/hr IVPB Q24H [facility] Last Admin: 11/03/16 18:15 Dose: 100 mls/hr Norepinephrine Bitartrate 8 mg (/ Dextrose) 258 mls @ 7.74 mls/hr IV .Q24H PRN ; Protocol; 4 MCG/MIN PRN Reason: TITRATE PER MD ORDER Last Titration: 11/03/16 22:00 Dose: 12 mcg/min, 23.22 mls/hr Vasopressin 40 units/ Sodium (Chloride) 40 mls @ 0.6 mls/hr IV .Q24H [facility]; 0.01 UNITS/MIN PRN Reason: Protocol Last Admin: 11/03/16 12:51 Dose: Not Given Insulin Human Regular (Novolin R) 0 unit SC Q6 [facility] PRN Reason: Protocol Last Admin: 11/03/16 18:17 Dose: Not Given Levothyroxine Sodium (Synthroid) 200 mcg PO DAILY@0630 [facility] Last Admin: 11/03/16 06:34 Dose: 200 mcg Midodrine (Proamatine) 5 mg PO TID [facility] Last Admin: 11/03/16 18:15 Dose: 5 mg Pantoprazole Sodium (Protonix Susp) 40 mg NG DAILY [facility] Last Admin: 11/03/16 09:40 Dose: 40 mg - Labs Labs: 11/03/16 07:55 11/03/16 06:30 PT 19.5 SECONDS (9.7-12.2) H 10/28/16 08:07 INR 1.7 10/28/16 08:07 APTT 49 SECONDS (21-34) H 10/25/16 16:33
[2016-11-04] MEDS: (Novolin R) Insulin Human Regular 100 units/ml vial SC SCH ×4 (00:21→18:44)
[2016-11-04 05:36] LABS: ABG ALLEN TEST POS; ABG MECHANICAL RATE 14; ARTERIAL BLOOD GAS MODE A/C; ARTERIAL BLOOD HGB O2 SAT 96.6 % (95.0-98.0); ATERIAL BLOOD GAS PEEP 5; CARBOXYHEMOGLOBIN 1.9 % (0.5-1.5); DRAW SITE RR; HHB -0.3 % (0.0-5.0); METHEMOGLOBIN 1.8 % (0.0-3.0)
[2016-11-04] MEDS: Levothyroxine 200 MCG TAB PO SCH (05:40)
[2016-11-04 06:21] LABS: BASO # 0.1 K/uL (0.0-0.2); BASO % 0.3 % (0.0-2.0); EOS # 0.1 K/uL (0.0-0.7); EOS % 0.3 % (0.0-4.0); HEMATOCRIT 24.7 % (34.0-47.0); LYMPH # 1.2 K/uL (1.0-4.3); LYMPH % 6.7 % (20.0-40.0); MEAN CELL VOLUME 99.2 fL (81.0-99.0); MEAN CORPUSCULAR HEMOGLOBIN 32.3 pg (27.0-31.0); MEAN CORPUSCULAR HGB CONC 32.6 g/dL (33.0-37.0); MEAN PLATELET VOLUME 10.2 fL (7.2-11.7); MONO # 1.4 K/uL (0.0-0.8); MONO % 7.6 % (0.0-10.0); PLATELET COUNT 128 K/uL (130-400); WHITE BLOOD COUNT 17.9 K/uL (4.8-10.8)
[2016-11-04 06:34] LABS: POTASSIUM 3.8 mmol/L (3.6-5.2)
[2016-11-04 06:36] LABS: ALB/GLOB RATIO 0.6 (1.0-2.1); BILIRUBIN,TOTAL 6.8 mg/dL (0.2-1.3); PHOSPHOROUS 4.3 mg/dL (2.5-4.5); TOTAL PROTEIN 6.6 g/dL (6.3-8.3)
[2016-11-04 06:37] LABS: MAGNESIUM 1.6 mg/dL (1.6-2.3)
--- NOTE | 2016-11-04 07:46 | RAD ---
PROCEDURE: CHEST RADIOGRAPH, 1 VIEW HISTORY: R/o pneumonia. Pleural effusion. COMPARISON: 10/25/2016 FINDINGS: LUNGS: Tracheostomy tube projects to the left of the trachea, likely related to patient rotation. Other lines and tubes in stable position. Moderate loculated right pleural effusion. Moderate venous congestion with confluent consolidative changes in the right mid to lower lung zone. Biapical pleural thickening with upper lobe granulomatous changes. PLEURA: As above. CARDIOVASCULAR: Calcification at the aortic knob. Mild cardiomegaly. OSSEOUS STRUCTURES: Degenerative changes in the spine and shoulders. VISUALIZED UPPER ABDOMEN: Normal. OTHER FINDINGS: None. IMPRESSION: No significant interval change.
[2016-11-04 08:56] LABS: NEUTROPHIL 71 % (50-75); TOTAL CELLS COUNTED 100
[2016-11-04 09:08] LABS: GIANT PLATELETS PRESENT; LARGE PLATELETS PRESENT
[2016-11-04] MEDS: Pantoprazole 40 mg Susp UD NG SCH (10:34)
--- NOTE | 2016-11-04 11:56 | CP.PCM.PN ---
Subjective - Date & Time of Evaluation Date of Evaluation: 11/04/16 Time of Evaluation: 11:53 - Subjective Subjective: Surgery: Dr. Buck Patient remains in ICU, trach dependent. Clinically same. Requiring levophed for pressure support. Objective - Vital Signs/Intake and Output Vital Signs (last 24 hours): Temp Pulse Resp BP Pulse Ox 99.5 F 86 34 H 123/24 L 100 11/04/16 04:00 11/04/16 07:02 11/04/16 07:02 11/04/16 07:02 11/04/16 07:02 Intake and Output: 11/04/16 11/04/16 06:59 18:59 Intake Total 936.3 66.6 Balance 936.3 66.6 - Medications Medications: Current Medications Acetaminophen (Tylenol 650mg/20.3ml Solution Ud) 650 mg PO Q6 PRN PRN Reason: Temperature Last Admin: 11/03/16 12:55 Dose: 650 mg Epoetin Sly (Procrit) 10,000 unit IV [facility] Last Admin: 11/02/16 09:40 Dose: 10,000 unit Meropenem 500 mg/ Sodium (Chloride) 100 mls @ 100 mls/hr IVPB Q24H [facility] Last Admin: 11/03/16 18:15 Dose: 100 mls/hr Norepinephrine Bitartrate 8 mg (/ Dextrose) 258 mls @ 7.74 mls/hr IV .Q24H PRN ; Protocol; 4 MCG/MIN PRN Reason: TITRATE PER MD ORDER Last Titration: 11/04/16 10:34 Dose: 4 mcg/min, 7.74 mls/hr Insulin Human Regular (Novolin R) 0 unit SC Q6 [facility] PRN Reason: Protocol Last Admin: 11/04/16 06:45 Dose: Not Given Levothyroxine Sodium (Synthroid) 200 mcg PO DAILY@0630 [facility] Last Admin: 11/04/16 05:40 Dose: 200 mcg Midodrine (Proamatine) 5 mg PO TID [facility] Last Admin: 11/04/16 10:34 Dose: 5 mg Pantoprazole Sodium (Protonix Susp) 40 mg NG DAILY [facility] Last Admin: 11/04/16 10:34 Dose: 40 mg - Labs Labs: 11/04/16 06:10 11/04/16 06:10 PT 19.5 SECONDS (9.7-12.2) H 10/28/16 08:07 INR 1.7 10/28/16 08:07 APTT 49 SECONDS (21-34) H 10/25/16 16:33 - Constitutional Appears: Toxic, Chronically Ill - Head Exam Head Exam: ATRAUMATIC, NORMOCEPHALIC - ENT Exam ENT Exam: Mucous Membranes Dry - Respiratory Exam Respiratory Exam: absent: Respiratory Distress - Cardiovascular Exam Cardiovascular Exam: REGULAR RHYTHM. absent: Tachycardia - GI/Abdominal Exam GI & Abdominal Exam: Soft. absent: Distended, Tenderness - Extremities Exam Additional comments: Left middle finger tip necrosis, dry. Radial pulse signal appreciated w/ increase intensity upon compression of AVF. Assessment and Plan - Assessment and Plan (Free Text) Assessment: 76 y/o female w/ left finger necrosis most likely 2/2 steal syndrome Plan: necrosis stable at this time -will cont to monitor -hold off surgical intervention until clinically stable -cont HD through AVF d/w Dr. Heber Marrero PGY3
--- NOTE | 2016-11-04 12:04 | CP.CCUPN ---
<Gretchen Brewer - Last Filed: 11/04/16 12:01> CCU Subjective - Physician Review Subjective (Free Text): Patient seen and examined in the AM at bedside. Patient is not alert and not oriented. Per nurse patient had one event of bloody stool. Patient was started on Norepinephrine for blood pressure but has been able to taper down. 11/04/16 12:01 CCU Objective - Vital Signs / Intake & Output Intake and Output (Last 8hrs): Intake & Output 11/03/16 11/04/16 11/04/16 22:59 06:59 14:59 Intake Total 936.0 579.9 66.6 Output Total 125 Balance 811.0 579.9 66.6 Weight 123 lb Intake: IV 266 150 20 Intake, IV Amount 340.0 149.9 11.6 Right Distal Port PICC 240.0 149.9 11.6 Right Proximal Port PICC 100 Oral 50 Tube Feeding 280 280 35 Output: Stool 125 Other: # Voids Urine, Voided 0 # Bowel Movements 1 - Physical Exam Head: Positive for: Atraumatic Extroacular Muscles: Positive for: EOMI Mouth: Positive for: Dry Nose (Internal): Positive for: Other (NGT in place) Neck: Positive for: Other (trach in place) Respiratory/Chest: Positive for: Rhonchi. Negative for: Clear to Auscultation ( decreased in RLL), Respiratory Distress, Accessory Muscle Use Cardiovascular: Positive for: Regular Rate and Rhythm, Normal S1, S2. Negative for: Murmurs, Tachycardic, Bradycardic Abdomen: Negative for: Peritoneal Signs, Hernias Rectal: Negative for: Gross Blood Upper Extremity: Positive for: Cyanosis, Temperature Abnormalties, Other (cold fingers, ischemic 3rd digit on left hand ). Negative for: NORMAL PULSES, Neurovascularly Intact, Capillary Refill < 2s Lower Extremity: Positive for: Edema Neurological: Negative for: GCS=15, Speech Normal Skin: Positive for: Cold (bilateral hands). Negative for: Warm Psychiatric: Negative for: Alert, Oriented x 3, Normal Insight, Normal Concentration - Medications Active Medications: Active Medications Generic Name Dose Route Start Last Admin Trade Name Freq PRN Reason Stop Dose Admin Acetaminophen 650 mg 11/03/16 12:38 11/03/16 12:55 Tylenol 650mg/20.3ml Solution Ud PO 650 mg Q6 PRN Administration Temperature Epoetin Sly 10,000 unit 11/02/16 09:30 11/02/16 09:40 Procrit IV 10,000 unit MWF REKHA Administration Meropenem 500 mg/ Sodium 100 mls @ 100 mls/hr 10/25/16 19:00 11/03/16 18:15 Chloride IVPB 100 mls/hr Q24H REKHA Administration Norepinephrine Bitartrate 8 mg 258 mls @ 7.74 mls/hr 11/02/16 10:44 11/04/16 10:34 / Dextrose IV 4 mcg/min .Q24H PRN 7.74 mls/hr TITRATE PER MD ORDER Titration Protocol 4 MCG/MIN Insulin Human Regular 0 unit 10/26/16 06:00 11/04/16 06:45 Novolin R SC Not Given Q6 [facility] Protocol Levothyroxine Sodium 200 mcg 10/26/16 06:30 11/04/16 05:40 Synthroid PO 200 mcg DAILY@0630 REKHA Administration Midodrine 5 mg 11/01/16 14:00 11/04/16 10:34 Proamatine PO 5 mg TID REKHA Administration Pantoprazole Sodium 40 mg 10/31/16 17:45 11/04/16 10:34 Protonix Susp NG 40 mg DAILY REKHA Administration - Patient Studies Lab Studies: Microbiology Studies 11/03/16 09:00 Blood Culture - Preliminary Blood-Thru Central Line NO GROWTH AFTER 24 HOURS 11/03/16 08:45 Blood Culture - Preliminary Blood-Thru Central Line NO GROWTH AFTER 24 HOURS 11/03/16 Unknown Gram Stain - Final Trachasp Lab Studies 11/04/16 11/04/16 11/04/16 Range/Units 11:51 06:10 06:10 WBC 17.9 H (4.8-10.8) K/uL RBC 2.49 L (3.80-5.20) Mil/uL Hgb 8.1 L (11.0-16.0) g/dL Hct 24.7 L (34.0-47.0) % MCV 99.2 H (81.0-99.0) fL MCH 32.3 H (27.0-31.0) pg MCHC 32.6 L (33.0-37.0) g/dL RDW 25.0 H (11.5-14.5) % Plt Count 128 L D (130-400) K/uL MPV 10.2 (7.2-11.7) fL Neut % (Auto) 85.1 H (50.0-75.0) % Lymph % (Auto) 6.7 L (20.0-40.0) % [place] % (Auto) 7.6 (0.0-10.0) % Eos % (Auto) 0.3 (0.0-4.0) % Baso % (Auto) 0.3 (0.0-2.0) % Neut # 15.2 H (1.8-7.0) K/uL Lymph # 1.2 (1.0-4.3) K/uL [place] # 1.4 H (0.0-0.8) K/uL Eos # 0.1 (0.0-0.7) K/uL Baso # 0.1 (0.0-0.2) K/uL Neutrophils % (Manual) 71 (50-75) % Band Neutrophils % 17 H* (0-2) % Lymphocytes % (Manual) 4 L (20-40) % Monocytes % (Manual) 8 (0-10) % Platelet Estimate Slightly decreased L (NORMAL) Large Platelets Present Giant Platelets Present Polychromasia Slight Hypochromasia (manual) Slight Poikilocytosis (manual Slight Anisocytosis (manual) Slight Macrocytosis (manual) Slight Target Cells Slight [place] Cells Slight Puncture Site pCO2 (35-45) mm/Hg pO2 (80-100) mm/Hg HCO3 (21-28) mmol/L ABG pH (7.35-7.45) ABG Total CO2 (22-28) mmol/L ABG O2 Saturation (95-98) % ABG Base Excess (-2.0-3.0) mmol/L ABG Hemoglobin (11.7-17.4) g/dL ABG Carboxyhemoglobin (0.5-1.5) % POC ABG HHb (Measured) (0.0-5.0) % ABG Methemoglobin (0.0-3.0) % [place] Test A-a O2 Difference mm/Hg Respiratory Index Hgb O2 Saturation (95.0-98.0) % Vent Mode Mechanical Rate FiO2 % Tidal Volume PEEP Sodium 130 L (132-148) mmol/L Potassium 3.8 (3.6-5.2) mmol/L Chloride 93 L (98-107) mmol/L Carbon Dioxide 21 L (22-30) mmol/L Anion Gap 20 (10-20) BUN 39 H (7-17) mg/dL Creatinine 1.8 H (0.7-1.2) MG/DL Est GFR ( Amer) 33 Est GFR (Non-Af Amer) 28 POC Glucose (mg/dL) 267 H (65-110) mg/dL Random Glucose 310 H (65-105) mg/dL Lactic Acid (0.7-2.1) mmol/L Calcium 8.0 L (8.6-10.4) mg/dl Phosphorus 4.3 (2.5-4.5) mg/dL Magnesium 1.6 (1.6-2.3) mg/dL % Saturation (20-55) Ferritin ng/mL Total Bilirubin 6.8 H (0.2-1.3) mg/dL AST 38 H D (14-36) U/L ALT 25 (9-52) U/L Alkaline Phosphatase 307 H (38-126) U/L Total Protein 6.6 (6.3-8.3) g/dL Albumin 2.4 L (3.5-5.0) g/dL Globulin 4.2 H (2.2-3.9) gm/dL Albumin/Globulin Ratio 0.6 L (1.0-2.1) Blood Type Antibody Screen 11/04/16 11/04/16 11/03/16 Range/Units 05:31 05:25 23:41 WBC (4.8-10.8) K/uL RBC (3.80-5.20) Mil/uL Hgb (11.0-16.0) g/dL Hct (34.0-47.0) % MCV (81.0-99.0) fL MCH (27.0-31.0) pg MCHC (33.0-37.0) g/dL RDW (11.5-14.5) % Plt Count (130-400) K/uL MPV (7.2-11.7) fL Neut % (Auto) (50.0-75.0) % Lymph % (Auto) (20.0-40.0) % [place] % (Auto) (0.0-10.0) % Eos % (Auto) (0.0-4.0) % Baso % (Auto) (0.0-2.0) % Neut # (1.8-7.0) K/uL Lymph # (1.0-4.3) K/uL [place] # (0.0-0.8) K/uL Eos # (0.0-0.7) K/uL Baso # (0.0-0.2) K/uL Neutrophils % (Manual) (50-75) % Band Neutrophils % (0-2) % Lymphocytes % (Manual) (20-40) % Monocytes % (Manual) (0-10) % Platelet Estimate (NORMAL) Large Platelets Giant Platelets Polychromasia Hypochromasia (manual) Poikilocytosis (manual Anisocytosis (manual) Macrocytosis (manual) Target Cells [place] Cells Puncture Site Rr pCO2 34 L (35-45) mm/Hg pO2 204 H (80-100) mm/Hg HCO3 24.8 (21-28) mmol/L ABG pH 7.45 (7.35-7.45) ABG Total CO2 24.6 (22-28) mmol/L ABG O2 Saturation 100.3 H (95-98) % ABG Base Excess -0.2 (-2.0-3.0) mmol/L ABG Hemoglobin 8.4 L (11.7-17.4) g/dL ABG Carboxyhemoglobin 1.9 H (0.5-1.5) % POC ABG HHb (Measured) -0.3 L (0.0-5.0) % ABG Methemoglobin 1.8 (0.0-3.0) % [place] Test Pos A-a O2 Difference 110.0 mm/Hg Respiratory Index 0.5 Hgb O2 Saturation 96.6 (95.0-98.0) % Vent Mode A/c Mechanical Rate 14 FiO2 50.0 % Tidal Volume 300 PEEP 5 Sodium (132-148) mmol/L Potassium (3.6-5.2) mmol/L Chloride (98-107) mmol/L Carbon Dioxide (22-30) mmol/L Anion Gap (10-20) BUN (7-17) mg/dL Creatinine (0.7-1.2) MG/DL Est GFR ( Amer) Est GFR (Non-Af Amer) POC Glucose (mg/dL) 288 H 238 H (65-110) mg/dL Random Glucose (65-105) mg/dL Lactic Acid (0.7-2.1) mmol/L Calcium (8.6-10.4) mg/dl Phosphorus (2.5-4.5) mg/dL Magnesium (1.6-2.3) mg/dL % Saturation (20-55) Ferritin ng/mL Total Bilirubin (0.2-1.3) mg/dL AST (14-36) U/L ALT (9-52) U/L Alkaline Phosphatase (38-126) U/L Total Protein (6.3-8.3) g/dL Albumin (3.5-5.0) g/dL Globulin (2.2-3.9) gm/dL Albumin/Globulin Ratio (1.0-2.1) Blood Type Antibody Screen 11/03/16 11/03/16 11/03/16 Range/Units 18:17 13:55 13:55 WBC (4.8-10.8) K/uL RBC (3.80-5.20) Mil/uL Hgb (11.0-16.0) g/dL Hct (34.0-47.0) % MCV (81.0-99.0) fL MCH (27.0-31.0) pg MCHC (33.0-37.0) g/dL RDW (11.5-14.5) % Plt Count (130-400) K/uL MPV (7.2-11.7) fL Neut % (Auto) (50.0-75.0) % Lymph % (Auto) (20.0-40.0) % [place] % (Auto) (0.0-10.0) % Eos % (Auto) (0.0-4.0) % Baso % (Auto) (0.0-2.0) % Neut # (1.8-7.0) K/uL Lymph # (1.0-4.3) K/uL [place] # (0.0-0.8) K/uL Eos # (0.0-0.7) K/uL Baso # (0.0-0.2) K/uL Neutrophils % (Manual) (50-75) % Band Neutrophils % (0-2) % Lymphocytes % (Manual) (20-40) % Monocytes % (Manual) (0-10) % Platelet Estimate (NORMAL) Large Platelets Giant Platelets Polychromasia Hypochromasia (manual) Poikilocytosis (manual Anisocytosis (manual) Macrocytosis (manual) Target Cells [place] Cells Puncture Site pCO2 (35-45) mm/Hg pO2 (80-100) mm/Hg HCO3 (21-28) mmol/L ABG pH (7.35-7.45) ABG Total CO2 (22-28) mmol/L ABG O2 Saturation (95-98) % ABG Base Excess (-2.0-3.0) mmol/L ABG Hemoglobin (11.7-17.4) g/dL ABG Carboxyhemoglobin (0.5-1.5) % POC ABG HHb (Measured) (0.0-5.0) % ABG Methemoglobin (0.0-3.0) % [place] Test A-a O2 Difference mm/Hg Respiratory Index Hgb O2 Saturation (95.0-98.0) % Vent Mode Mechanical Rate FiO2 % Tidal Volume PEEP Sodium (132-148) mmol/L Potassium (3.6-5.2) mmol/L Chloride (98-107) mmol/L Carbon Dioxide (22-30) mmol/L Anion Gap (10-20) BUN (7-17) mg/dL Creatinine (0.7-1.2) MG/DL Est GFR ( Amer) Est GFR (Non-Af Amer) POC Glucose (mg/dL) 216 H (65-110) mg/dL Random Glucose (65-105) mg/dL Lactic Acid 3.5 H (0.7-2.1) mmol/L Calcium (8.6-10.4) mg/dl Phosphorus (2.5-4.5) mg/dL Magnesium (1.6-2.3) mg/dL % Saturation (20-55) Ferritin 4270.0 ng/mL Total Bilirubin (0.2-1.3) mg/dL AST (14-36) U/L ALT (9-52) U/L Alkaline Phosphatase (38-126) U/L Total Protein (6.3-8.3) g/dL Albumin (3.5-5.0) g/dL Globulin (2.2-3.9) gm/dL Albumin/Globulin Ratio (1.0-2.1) Blood Type Antibody Screen 11/03/16 11/03/16 11/03/16 Range/Units 13:55 11:38 11:14 WBC (4.8-10.8) K/uL RBC (3.80-5.20) Mil/uL Hgb (11.0-16.0) g/dL Hct (34.0-47.0) % MCV (81.0-99.0) fL MCH (27.0-31.0) pg MCHC (33.0-37.0) g/dL RDW (11.5-14.5) % Plt Count (130-400) K/uL MPV (7.2-11.7) fL Neut % (Auto) (50.0-75.0) % Lymph % (Auto) (20.0-40.0) % [place] % (Auto) (0.0-10.0) % Eos % (Auto) (0.0-4.0) % Baso % (Auto) (0.0-2.0) % Neut # (1.8-7.0) K/uL Lymph # (1.0-4.3) K/uL [place] # (0.0-0.8) K/uL Eos # (0.0-0.7) K/uL Baso # (0.0-0.2) K/uL Neutrophils % (Manual) (50-75) % Band Neutrophils % (0-2) % Lymphocytes % (Manual) (20-40) % Monocytes % (Manual) (0-10) % Platelet Estimate (NORMAL) Large Platelets Giant Platelets Polychromasia Hypochromasia (manual) Poikilocytosis (manual Anisocytosis (manual) Macrocytosis (manual) Target Cells Melia Cells Puncture Site pCO2 (35-45) mm/Hg pO2 (80-100) mm/Hg HCO3 (21-28) mmol/L ABG pH (7.35-7.45) ABG Total CO2 (22-28) mmol/L ABG O2 Saturation (95-98) % ABG Base Excess (-2.0-3.0) mmol/L ABG Hemoglobin (11.7-17.4) g/dL ABG Carboxyhemoglobin (0.5-1.5) % POC ABG HHb (Measured) (0.0-5.0) % ABG Methemoglobin (0.0-3.0) % [place] Test A-a O2 Difference mm/Hg Respiratory Index Hgb O2 Saturation (95.0-98.0) % Vent Mode Mechanical Rate FiO2 % Tidal Volume PEEP Sodium (132-148) mmol/L Potassium (3.6-5.2) mmol/L Chloride (98-107) mmol/L Carbon Dioxide (22-30) mmol/L Anion Gap (10-20) BUN (7-17) mg/dL Creatinine (0.7-1.2) MG/DL Est GFR ( Amer) Est GFR (Non-Af Amer) POC Glucose (mg/dL) 126 H (65-110) mg/dL Random Glucose (65-105) mg/dL Lactic Acid (0.7-2.1) mmol/L Calcium (8.6-10.4) mg/dl Phosphorus (2.5-4.5) mg/dL Magnesium (1.6-2.3) mg/dL % Saturation 25 (20-55) Ferritin ng/mL Total Bilirubin (0.2-1.3) mg/dL AST (14-36) U/L ALT (9-52) U/L Alkaline Phosphatase (38-126) U/L Total Protein (6.3-8.3) g/dL Albumin (3.5-5.0) g/dL Globulin (2.2-3.9) gm/dL Albumin/Globulin Ratio (1.0-2.1) Blood Type B POSITIVE Antibody Screen Negative Laboratory Results - last 24 hr 11/03/16 11/03/16 11/03/16 11:14 11:38 13:55 WBC RBC Hgb Hct MCV MCH MCHC RDW Plt Count MPV Neut % (Auto) Lymph % (Auto) [place] % (Auto) Eos % (Auto) Baso % (Auto) Neut # Lymph # [place] # Eos # Baso # Neutrophils % (Manual) Band Neutrophils % Lymphocytes % (Manual) Monocytes % (Manual) Platelet Estimate Large Platelets Giant Platelets Polychromasia Hypochromasia (manual) Poikilocytosis (manual Anisocytosis (manual) Macrocytosis (manual) Target Cells [place] Cells Puncture Site pCO2 pO2 HCO3 ABG pH ABG Total CO2 ABG O2 Saturation ABG Base Excess ABG Hemoglobin ABG Carboxyhemoglobin POC ABG HHb (Measured) ABG Methemoglobin [place] Test A-a O2 Difference Respiratory Index Hgb O2 Saturation Vent Mode Mechanical Rate FiO2 Tidal Volume PEEP Sodium Potassium Chloride Carbon Dioxide Anion Gap BUN Creatinine Est GFR ( Amer) Est GFR (Non-Af Amer) POC Glucose (mg/dL) 126 H Random Glucose Lactic Acid Calcium Phosphorus Magnesium % Saturation 25 Ferritin Total Bilirubin AST ALT Alkaline Phosphatase Total Protein Albumin Globulin Albumin/Globulin Ratio Blood Type B POSITIVE Antibody Screen Negative 11/03/16 11/03/16 11/03/16 13:55 13:55 18:17 WBC RBC Hgb Hct MCV MCH MCHC RDW Plt Count MPV Neut % (Auto) Lymph % (Auto) [place] % (Auto) Eos % (Auto) Baso % (Auto) Neut # Lymph # [place] # Eos # Baso # Neutrophils % (Manual) Band Neutrophils % Lymphocytes % (Manual) Monocytes % (Manual) Platelet Estimate Large Platelets Giant Platelets Polychromasia Hypochromasia (manual) Poikilocytosis (manual Anisocytosis (manual) Macrocytosis (manual) Target Cells [place]ia Cells Puncture Site pCO2 pO2 HCO3 ABG pH ABG Total CO2 ABG O2 Saturation ABG Base Excess ABG Hemoglobin ABG Carboxyhemoglobin POC ABG HHb (Measured) ABG Methemoglobin [place] Test A-a O2 Difference Respiratory Index Hgb O2 Saturation Vent Mode Mechanical Rate FiO2 Tidal Volume PEEP Sodium Potassium Chloride Carbon Dioxide Anion Gap BUN Creatinine Est GFR ( Amer) Est GFR (Non-Af Amer) POC Glucose (mg/dL) 216 H Random Glucose Lactic Acid 3.5 H Calcium Phosphorus Magnesium % Saturation Ferritin 4270.0 Total Bilirubin AST ALT Alkaline Phosphatase Total Protein Albumin Globulin Albumin/Globulin Ratio Blood Type Antibody Screen 11/03/16 11/04/16 11/04/16 23:41 05:25 05:31 WBC RBC Hgb Hct MCV MCH MCHC RDW Plt Count MPV Neut % (Auto) Lymph % (Auto) [place] % (Auto) Eos % (Auto) Baso % (Auto) Neut # Lymph # [place] # Eos # Baso # Neutrophils % (Manual) Band Neutrophils % Lymphocytes % (Manual) Monocytes % (Manual) Platelet Estimate Large Platelets Giant Platelets Polychromasia Hypochromasia (manual) Poikilocytosis (manual Anisocytosis (manual) Macrocytosis (manual) Target Cells [place] Cells Puncture Site Rr pCO2 34 L pO2 204 H HCO3 24.8 ABG pH 7.45 ABG Total CO2 24.6 ABG O2 Saturation 100.3 H ABG Base Excess -0.2 ABG Hemoglobin 8.4 L ABG Carboxyhemoglobin 1.9 H POC ABG HHb (Measured) -0.3 L ABG Methemoglobin 1.8 [place] Test Pos A-a O2 Difference 110.0 Respiratory Index 0.5 Hgb O2 Saturation 96.6 Vent Mode A/c Mechanical Rate 14 FiO2 50.0 Tidal Volume 300 PEEP 5 Sodium Potassium Chloride Carbon Dioxide Anion Gap BUN Creatinine Est GFR ( Amer) Est GFR (Non-Af Amer) POC Glucose (mg/dL) 238 H 288 H Random Glucose Lactic Acid Calcium Phosphorus Magnesium % Saturation Ferritin Total Bilirubin AST ALT Alkaline Phosphatase Total Protein Albumin Globulin Albumin/Globulin Ratio Blood Type Antibody Screen 11/04/16 11/04/16 11/04/16 06:10 06:10 11:51 WBC 17.9 H RBC 2.49 L Hgb 8.1 L Hct 24.7 L MCV 99.2 H MCH 32.3 H MCHC 32.6 L RDW 25.0 H Plt Count 128 L D MPV 10.2 Neut % (Auto) 85.1 H Lymph % (Auto) 6.7 L [place] % (Auto) 7.6 Eos % (Auto) 0.3 Baso % (Auto) 0.3 Neut # 15.2 H Lymph # 1.2 [place] # 1.4 H Eos # 0.1 Baso # 0.1 Neutrophils % (Manual) 71 Band Neutrophils % 17 H* Lymphocytes % (Manual) 4 L Monocytes % (Manual) 8 Platelet Estimate Slightly decreased L Large Platelets Present Giant Platelets Present Polychromasia Slight Hypochromasia (manual) Slight Poikilocytosis (manual Slight Anisocytosis (manual) Slight Macrocytosis (manual) Slight Target Cells Slight Melia Cells Slight Puncture Site pCO2 pO2 HCO3 ABG pH ABG Total CO2 ABG O2 Saturation ABG Base Excess ABG Hemoglobin ABG Carboxyhemoglobin POC ABG HHb (Measured) ABG Methemoglobin [place] Test A-a O2 Difference Respiratory Index Hgb O2 Saturation Vent Mode Mechanical Rate FiO2 Tidal Volume PEEP Sodium 130 L Potassium 3.8 Chloride 93 L Carbon Dioxide 21 L Anion Gap 20 BUN 39 H Creatinine 1.8 H Est GFR ( Amer) 33 Est GFR (Non-Af Amer) 28 POC Glucose (mg/dL) 267 H Random Glucose 310 H Lactic Acid Calcium 8.0 L Phosphorus 4.3 Magnesium 1.6 % Saturation Ferritin Total Bilirubin 6.8 H AST 38 H D ALT 25 Alkaline Phosphatase 307 H Total Protein 6.6 Albumin 2.4 L Globulin 4.2 H Albumin/Globulin Ratio 0.6 L Blood Type Antibody Screen Fingerstick Blood Sugar Results: 288 Review of Systems - Review of Systems Systems not reviewed;Unavailable: Altered Mental Status Assessment/Plan - Assessment and Plan (Free Text) Assessment: 76F admitted for GI bleed; s/p flexible sigmoidoscopy and multiple transfusions. HgB now stable x 6 days Plan: Neuro: -GCS 9T - at baseline likely 2/2 metabolic encephalopathy Pulm: -trach on vent -CT chest shows b/l pleural effusions R>L with subsegmental atelectasis CV: - Septic Shock - BP mildly improved - systolic now 100-110s - Albumin 250 mls at 50 - Norepinephrine 258 mls - Tylenol 650mg IV - Potassium replenished - Dr Long on board. Pt high risk for any procedure but can proceed if clinical indicated - Left hand with ischemic necrosis - consult placed for vasc Dr Buck - likely nothing to do Heme: - H/H (11/04) 8.1/24.7 - will cont to monitor H/H and for rectal bleed - continue transfuse PRN for HgB <7 Renal: - ESRD - HD as per Dr Mcfarland - Dr Trent on consult --> help appreciated Endo: -Insulin sliding scale GI: - NGT for enteral feedings -Consult IR for PEG placement given Ascites - Protonix drip for GI bleed - CT shows significant colitis at rectosigmoid junction - Flexible sigmoidoscopy at bedside 10/28/16 shows ischemic colitis - Fam declined sx - Sx and GI signed off ID: - PO Vanc and Merrem - Septic Shock Pt chronically ill, prognosis very poor DVT proph - SCDs, no anti-coagulation due to acute bleed GI proph - Protonix 40mg IVP daily Code status - Full Case discussed with Dr. Curry Brewer PGY-1 <Ortiz Zapien - Last Filed: 11/04/16 16:43> CCU Objective - Vital Signs / Intake & Output Vital Signs (Last 4 hours): Vital Signs Temp Pulse Pulse Resp BP BP Pulse Ox 11/04/16 15:17 87 18 115/86 11/04/16 15:02 85 29 H 112/54 L 11/04/16 14:56 105 H 27 H 116/50 L 11/04/16 14:55 98.4 F 106 H 26 H 108/49 L 11/04/16 14:47 106 H 24 95/46 L 11/04/16 14:32 106 H 31 H 108/49 L 11/04/16 14:30 98 H 28 H 100/46 L 11/04/16 14:17 84 30 H 100/46 L 11/04/16 14:02 86 23 104/39 L 11/04/16 14:00 84 88 31 H 11/04/16 13:48 84 27 H 115/47 L 11/04/16 13:32 83 27 H 79/40 L 100 11/04/16 13:30 84 28 H 11/04/16 13:17 83 30 H 86/39 L 100 11/04/16 13:02 82 29 H 93/42 L 100 11/04/16 13:00 83 27 H 93/42 L 11/04/16 12:47 83 17 94/41 L 100 11/04/16 12:45 82 19 94/41 L 11/04/16 12:32 81 26 H 100/42 L 100 Intake and Output (Last 8hrs): Intake & Output 11/04/16 11/04/16 11/04/16 06:59 14:59 22:59 Intake Total 579.9 350.9 50.4 Output Total 0 0 Balance 579.9 350.9 50.4 Weight 123 lb Intake: IV 150 60 Intake, IV Amount 149.9 80.9 15.4 Right Distal Port PICC 149.9 80.9 15.4 Tube Feeding 280 210 35 Output: Urine 0 0 Urethral ([place]) 0 0 Stool 0 Other: # Bowel Movements 40 50 - Medications Active Medications: Active Medications Generic Name Dose Route Start Last Admin Trade Name Freq PRN Reason Stop Dose Admin Acetaminophen 650 mg 11/03/16 12:38 11/03/16 12:55 Tylenol 650mg/20.3ml Solution Ud PO 650 mg Q6 PRN Administration Temperature Epoetin Sly 10,000 unit 11/02/16 09:30 11/02/16 09:40 Procrit IV 10,000 unit MWF REKHA Administration Meropenem 500 mg/ Sodium 100 mls @ 100 mls/hr 10/25/16 19:00 11/03/16 18:15 Chloride IVPB 100 mls/hr Q24H REKHA Administration Norepinephrine Bitartrate 8 mg 258 mls @ 7.74 mls/hr 11/02/16 10:44 11/04/16 13:00 / Dextrose IV 8 mcg/min .Q24H PRN 15.48 mls/hr TITRATE PER MD ORDER Titration Protocol 4 MCG/MIN Insulin Human Regular 0 unit 10/26/16 06:00 11/04/16 06:45 Novolin R SC Not Given Q6 REKHA Protocol Levothyroxine Sodium 200 mcg 10/26/16 06:30 11/04/16 05:40 Synthroid PO 200 mcg DAILY@0630 REKHA Administration Midodrine 5 mg 11/01/16 14:00 11/04/16 10:34 Proamatine PO 5 mg TID REKHA Administration Pantoprazole Sodium 40 mg 10/31/16 17:45 11/04/16 10:34 Protonix Susp NG 40 mg DAILY REKHA Administration - Patient Studies Lab Studies: Microbiology Studies 11/03/16 09:00 Blood Culture - Preliminary Blood-Thru Central Line NO GROWTH AFTER 24 HOURS 11/03/16 08:45 Blood Culture - Preliminary Blood-Thru Central Line NO GROWTH AFTER 24 HOURS 11/03/16 Unknown Gram Stain - Final Trachasp Lab Studies 11/04/16 11/04/16 11/04/16 Range/Units 11:51 06:10 06:10 WBC 17.9 H (4.8-10.8) K/uL RBC 2.49 L (3.80-5.20) Mil/uL Hgb 8.1 L (11.0-16.0) g/dL Hct 24.7 L (34.0-47.0) % MCV 99.2 H (81.0-99.0) fL MCH 32.3 H (27.0-31.0) pg MCHC 32.6 L (33.0-37.0) g/dL RDW 25.0 H (11.5-14.5) % Plt Count 128 L D (130-400) K/uL MPV 10.2 (7.2-11.7) fL Neut % (Auto) 85.1 H (50.0-75.0) % Lymph % (Auto) 6.7 L (20.0-40.0) % [place] % (Auto) 7.6 (0.0-10.0) % Eos % (Auto) 0.3 (0.0-4.0) % Baso % (Auto) 0.3 (0.0-2.0) % Neut # 15.2 H (1.8-7.0) K/uL Lymph # 1.2 (1.0-4.3) K/uL [place] # 1.4 H (0.0-0.8) K/uL Eos # 0.1 (0.0-0.7) K/uL Baso # 0.1 (0.0-0.2) K/uL Neutrophils % (Manual) 71 (50-75) % Band Neutrophils % 17 H* (0-2) % Lymphocytes % (Manual) 4 L (20-40) % Monocytes % (Manual) 8 (0-10) % Platelet Estimate Slightly decreased L (NORMAL) Large Platelets Present Giant Platelets Present Polychromasia Slight Hypochromasia (manual) Slight Poikilocytosis (manual Slight Anisocytosis (manual) Slight Macrocytosis (manual) Slight Target Cells Slight [place]ia Cells Slight Puncture Site pCO2 (35-45) mm/Hg pO2 (80-100) mm/Hg HCO3 (21-28) mmol/L ABG pH (7.35-7.45) ABG Total CO2 (22-28) mmol/L ABG O2 Saturation (95-98) % ABG Base Excess (-2.0-3.0) mmol/L ABG Hemoglobin (11.7-17.4) g/dL ABG Carboxyhemoglobin (0.5-1.5) % POC ABG HHb (Measured) (0.0-5.0) % ABG Methemoglobin (0.0-3.0) % [place] Test A-a O2 Difference mm/Hg Respiratory Index Hgb O2 Saturation (95.0-98.0) % Vent Mode Mechanical Rate FiO2 % Tidal Volume PEEP Sodium 130 L (132-148) mmol/L Potassium 3.8 (3.6-5.2) mmol/L Chloride 93 L (98-107) mmol/L Carbon Dioxide 21 L (22-30) mmol/L Anion Gap 20 (10-20) BUN 39 H (7-17) mg/dL Creatinine 1.8 H (0.7-1.2) MG/DL Est GFR ( Amer) 33 Est GFR (Non-Af Amer) 28 POC Glucose (mg/dL) 267 H (65-110) mg/dL Random Glucose 310 H (65-105) mg/dL Calcium 8.0 L (8.6-10.4) mg/dl Phosphorus 4.3 (2.5-4.5) mg/dL Magnesium 1.6 (1.6-2.3) mg/dL Total Bilirubin 6.8 H (0.2-1.3) mg/dL AST 38 H D (14-36) U/L ALT 25 (9-52) U/L Alkaline Phosphatase 307 H (38-126) U/L Total Protein 6.6 (6.3-8.3) g/dL Albumin 2.4 L (3.5-5.0) g/dL Globulin 4.2 H (2.2-3.9) gm/dL Albumin/Globulin Ratio 0.6 L (1.0-2.1) 11/04/16 11/04/16 11/03/16 Range/Units 05:31 05:25 23:41 WBC (4.8-10.8) K/uL RBC (3.80-5.20) Mil/uL Hgb (11.0-16.0) g/dL Hct (34.0-47.0) % MCV (81.0-99.0) fL MCH (27.0-31.0) pg MCHC (33.0-37.0) g/dL RDW (11.5-14.5) % Plt Count (130-400) K/uL MPV (7.2-11.7) fL Neut % (Auto) (50.0-75.0) % Lymph % (Auto) (20.0-40.0) % [place] % (Auto) (0.0-10.0) % Eos % (Auto) (0.0-4.0) % Baso % (Auto) (0.0-2.0) % Neut # (1.8-7.0) K/uL Lymph # (1.0-4.3) K/uL [place] # (0.0-0.8) K/uL Eos # (0.0-0.7) K/uL Baso # (0.0-0.2) K/uL Neutrophils % (Manual) (50-75) % Band Neutrophils % (0-2) % Lymphocytes % (Manual) (20-40) % Monocytes % (Manual) (0-10) % Platelet Estimate (NORMAL) Large Platelets Giant Platelets Polychromasia Hypochromasia (manual) Poikilocytosis (manual Anisocytosis (manual) Macrocytosis (manual) Target Cells [place] Cells Puncture Site Rr pCO2 34 L (35-45) mm/Hg pO2 204 H (80-100) mm/Hg HCO3 24.8 (21-28) mmol/L ABG pH 7.45 (7.35-7.45) ABG Total CO2 24.6 (22-28) mmol/L ABG O2 Saturation 100.3 H (95-98) % ABG Base Excess -0.2 (-2.0-3.0) mmol/L ABG Hemoglobin 8.4 L (11.7-17.4) g/dL ABG Carboxyhemoglobin 1.9 H (0.5-1.5) % POC ABG HHb (Measured) -0.3 L (0.0-5.0) % ABG Methemoglobin 1.8 (0.0-3.0) % [place] Test Pos A-a O2 Difference 110.0 mm/Hg Respiratory Index 0.5 Hgb O2 Saturation 96.6 (95.0-98.0) % Vent Mode A/c Mechanical Rate 14 FiO2 50.0 % Tidal Volume 300 PEEP 5 Sodium (132-148) mmol/L Potassium (3.6-5.2) mmol/L Chloride (98-107) mmol/L Carbon Dioxide (22-30) mmol/L Anion Gap (10-20) BUN (7-17) mg/dL Creatinine (0.7-1.2) MG/DL Est GFR ( Amer) Est GFR (Non-Af Amer) POC Glucose (mg/dL) 288 H 238 H (65-110) mg/dL Random Glucose (65-105) mg/dL Calcium (8.6-10.4) mg/dl Phosphorus (2.5-4.5) mg/dL Magnesium (1.6-2.3) mg/dL Total Bilirubin (0.2-1.3) mg/dL AST (14-36) U/L ALT (9-52) U/L Alkaline Phosphatase (38-126) U/L Total Protein (6.3-8.3) g/dL Albumin (3.5-5.0) g/dL Globulin (2.2-3.9) gm/dL Albumin/Globulin Ratio (1.0-2.1) 07/13/17 Range/Units 18:17 WBC (4.8-10.8) K/uL RBC (3.80-5.20) Mil/uL Hgb (11.0-16.0) g/dL Hct (34.0-47.0) % MCV (81.0-99.0) fL MCH (27.0-31.0) pg MCHC (33.0-37.0) g/dL RDW (11.5-14.5) % Plt Count (130-400) K/uL MPV (7.2-11.7) fL Neut % (Auto) (50.0-75.0) % Lymph % (Auto) (20.0-40.0) % [place] % (Auto) (0.0-10.0) % Eos % (Auto) (0.0-4.0) % Baso % (Auto) (0.0-2.0) % Neut # (1.8-7.0) K/uL Lymph # (1.0-4.3) K/uL [place] # (0.0-0.8) K/uL Eos # (0.0-0.7) K/uL Baso # (0.0-0.2) K/uL Neutrophils % (Manual) (50-75) % Band Neutrophils % (0-2) % Lymphocytes % (Manual) (20-40) % Monocytes % (Manual) (0-10) % Platelet Estimate (NORMAL) Large Platelets Giant Platelets Polychromasia Hypochromasia (manual) Poikilocytosis (manual Anisocytosis (manual) Macrocytosis (manual) Target Cells [place] Cells Puncture Site pCO2 (35-45) mm/Hg pO2 (80-100) mm/Hg HCO3 (21-28) mmol/L ABG pH (7.35-7.45) ABG Total CO2 (22-28) mmol/L ABG O2 Saturation (95-98) % ABG Base Excess (-2.0-3.0) mmol/L ABG Hemoglobin (11.7-17.4) g/dL ABG Carboxyhemoglobin (0.5-1.5) % POC ABG HHb (Measured) (0.0-5.0) % ABG Methemoglobin (0.0-3.0) % [place] Test A-a O2 Difference mm/Hg Respiratory Index Hgb O2 Saturation (95.0-98.0) % Vent Mode Mechanical Rate FiO2 % Tidal Volume PEEP Sodium (132-148) mmol/L Potassium (3.6-5.2) mmol/L Chloride (98-107) mmol/L Carbon Dioxide (22-30) mmol/L Anion Gap (10-20) BUN (7-17) mg/dL Creatinine (0.7-1.2) MG/DL Est GFR ( Amer) Est GFR (Non-Af Amer) POC Glucose (mg/dL) 216 H (65-110) mg/dL Random Glucose (65-105) mg/dL Calcium (8.6-10.4) mg/dl Phosphorus (2.5-4.5) mg/dL Magnesium (1.6-2.3) mg/dL Total Bilirubin (0.2-1.3) mg/dL AST (14-36) U/L ALT (9-52) U/L Alkaline Phosphatase (38-126) U/L Total Protein (6.3-8.3) g/dL Albumin (3.5-5.0) g/dL Globulin (2.2-3.9) gm/dL Albumin/Globulin Ratio (1.0-2.1) Laboratory Results - last 24 hr 11/03/16 11/03/16 11/04/16 18:17 23:41 05:25 WBC RBC Hgb Hct MCV MCH MCHC RDW Plt Count MPV Neut % (Auto) Lymph % (Auto) [place] % (Auto) Eos % (Auto) Baso % (Auto) Neut # Lymph # [place] # Eos # Baso # Neutrophils % (Manual) Band Neutrophils % Lymphocytes % (Manual) Monocytes % (Manual) Platelet Estimate Large Platelets Giant Platelets Polychromasia Hypochromasia (manual) Poikilocytosis (manual Anisocytosis (manual) Macrocytosis (manual) Target Cells [place]ia Cells Puncture Site Rr pCO2 34 L pO2 204 H HCO3 24.8 ABG pH 7.45 ABG Total CO2 24.6 ABG O2 Saturation 100.3 H ABG Base Excess -0.2 ABG Hemoglobin 8.4 L ABG Carboxyhemoglobin 1.9 H POC ABG HHb (Measured) -0.3 L ABG Methemoglobin 1.8 [place] Test Pos A-a O2 Difference 110.0 Respiratory Index 0.5 Hgb O2 Saturation 96.6 Vent Mode A/c Mechanical Rate 14 FiO2 50.0 Tidal Volume 300 PEEP 5 Sodium Potassium Chloride Carbon Dioxide Anion Gap BUN Creatinine Est GFR ( Amer) Est GFR (Non-Af Amer) POC Glucose (mg/dL) 216 H 238 H Random Glucose Calcium Phosphorus Magnesium Total Bilirubin AST ALT Alkaline Phosphatase Total Protein Albumin Globulin Albumin/Globulin Ratio 11/04/16 11/04/16 11/04/16 05:31 06:10 06:10 WBC 17.9 H RBC 2.49 L Hgb 8.1 L Hct 24.7 L MCV 99.2 H MCH 32.3 H MCHC 32.6 L RDW 25.0 H Plt Count 128 L D MPV 10.2 Neut % (Auto) 85.1 H Lymph % (Auto) 6.7 L [place] % (Auto) 7.6 Eos % (Auto) 0.3 Baso % (Auto) 0.3 Neut # 15.2 H Lymph # 1.2 [place] # 1.4 H Eos # 0.1 Baso # 0.1 Neutrophils % (Manual) 71 Band Neutrophils % 17 H* Lymphocytes % (Manual) 4 L Monocytes % (Manual) 8 Platelet Estimate Slightly decreased L Large Platelets Present Giant Platelets Present Polychromasia Slight Hypochromasia (manual) Slight Poikilocytosis (manual Slight Anisocytosis (manual) Slight Macrocytosis (manual) Slight Target Cells Slight Melia Cells Slight Puncture Site pCO2 pO2 HCO3 ABG pH ABG Total CO2 ABG O2 Saturation ABG Base Excess ABG Hemoglobin ABG Carboxyhemoglobin POC ABG HHb (Measured) ABG Methemoglobin [place] Test A-a O2 Difference Respiratory Index Hgb O2 Saturation Vent Mode Mechanical Rate FiO2 Tidal Volume PEEP Sodium 130 L Potassium 3.8 Chloride 93 L Carbon Dioxide 21 L Anion Gap 20 BUN 39 H Creatinine 1.8 H Est GFR ( Amer) 33 Est GFR (Non-Af Amer) 28 POC Glucose (mg/dL) 288 H Random Glucose 310 H Calcium 8.0 L Phosphorus 4.3 Magnesium 1.6 Total Bilirubin 6.8 H AST 38 H D ALT 25 Alkaline Phosphatase 307 H Total Protein 6.6 Albumin 2.4 L Globulin 4.2 H Albumin/Globulin Ratio 0.6 L 11/04/16 11:51 WBC RBC Hgb Hct MCV MCH MCHC RDW Plt Count MPV Neut % (Auto) Lymph % (Auto) [place] % (Auto) Eos % (Auto) Baso % (Auto) Neut # Lymph # [place] # Eos # Baso # Neutrophils % (Manual) Band Neutrophils % Lymphocytes % (Manual) Monocytes % (Manual) Platelet Estimate Large Platelets Giant Platelets Polychromasia Hypochromasia (manual) Poikilocytosis (manual Anisocytosis (manual) Macrocytosis (manual) Target Cells [place]ia Cells Puncture Site pCO2 pO2 HCO3 ABG pH ABG Total CO2 ABG O2 Saturation ABG Base Excess ABG Hemoglobin ABG Carboxyhemoglobin POC ABG HHb (Measured) ABG Methemoglobin [place] Test A-a O2 Difference Respiratory Index Hgb O2 Saturation Vent Mode Mechanical Rate FiO2 Tidal Volume PEEP Sodium Potassium Chloride Carbon Dioxide Anion Gap BUN Creatinine Est GFR ( Amer) Est GFR (Non-Af Amer) POC Glucose (mg/dL) 267 H Random Glucose Calcium Phosphorus Magnesium Total Bilirubin AST ALT Alkaline Phosphatase Total Protein Albumin Globulin Albumin/Globulin Ratio Assessment/Plan (1) Leucocytosis Current Visit: Yes Status: Acute Attending/Attestation - Attestation I have personally seen and examined this patient.: Yes I have fully participated in the care of the patient.: Yes I have reviewed all pertinent clinical information: Yes Notes (Text): 11/04/16 16:39 I have seen and examined the patient. Medical records, lab studies, and imaging were reviewed by me and a management plan was formulated on multidisciplinary rounds with resident Dr. Brewer. I agree with their above documented assessment and plan. Patient not improving clinically. Trying to titrate off pressors. Patient is dying and daughter is unwilling to come to terms with this. Will call an ethics committee consult. Critical Care Time 35 minutes. Multi-disciplinary rounds were performed with house staff, nursing, speech therapy, respiratory therapy, pharmacy and nutrition with integrated input from the primary team/attending and other consulting services. The documented time is cumulative and includes review of patient data/exams/labs/chart review and examination of the patient on rounds and throughout the day; time is exclusive of any procedures or teaching time.
--- NOTE | 2016-11-04 13:48 | CP.PCM.PN ---
Subjective - Date & Time of Evaluation Date of Evaluation: 11/04/16 Time of Evaluation: 13:45 - Subjective Subjective: On tapering levophed dose- presently 4 mcg / min For dialysis now BPR observed Hg 8.1 - about same Gangrene worse on UE digits Objective - Vital Signs/Intake and Output Vital Signs (last 24 hours): Temp Pulse Resp BP Pulse Ox 98.4 F 83 27 H 93/42 L 100 11/04/16 11:38 11/04/16 13:00 11/04/16 13:00 11/04/16 13:00 11/04/16 12:47 Intake and Output: 11/04/16 11/04/16 06:59 18:59 Intake Total 936.3 279.4 Output Total 0 Balance 936.3 279.4 - Medications Medications: Current Medications Acetaminophen (Tylenol 650mg/20.3ml Solution Ud) 650 mg PO Q6 PRN PRN Reason: Temperature Last Admin: 11/03/16 12:55 Dose: 650 mg Epoetin Sly (Procrit) 10,000 unit IV MWF [facility] Last Admin: 11/02/16 09:40 Dose: 10,000 unit Meropenem 500 mg/ Sodium (Chloride) 100 mls @ 100 mls/hr IVPB Q24H [facility] Last Admin: 11/03/16 18:15 Dose: 100 mls/hr Norepinephrine Bitartrate 8 mg (/ Dextrose) 258 mls @ 7.74 mls/hr IV .Q24H PRN ; Protocol; 4 MCG/MIN PRN Reason: TITRATE PER MD ORDER Last Titration: 11/04/16 10:34 Dose: 4 mcg/min, 7.74 mls/hr Insulin Human Regular (Novolin R) 0 unit SC Q6 [facility] PRN Reason: Protocol Last Admin: 11/04/16 06:45 Dose: Not Given Levothyroxine Sodium (Synthroid) 200 mcg PO DAILY@0630 [facility] Last Admin: 11/04/16 05:40 Dose: 200 mcg Midodrine (Proamatine) 5 mg PO TID [facility] Last Admin: 11/04/16 10:34 Dose: 5 mg Pantoprazole Sodium (Protonix Susp) 40 mg NG DAILY [facility] Last Admin: 11/04/16 10:34 Dose: 40 mg - Labs Labs: 11/04/16 06:10 11/04/16 06:10 PT 19.5 SECONDS (9.7-12.2) H 10/28/16 08:07 INR 1.7 10/28/16 08:07 APTT 49 SECONDS (21-34) H 10/25/16 16:33 - Constitutional Appears: In Acute Distress, Chronically Ill - Head Exam Head Exam: ATRAUMATIC, NORMAL INSPECTION - Eye Exam Eye Exam: EOMI, Normal appearance - Neck Exam Neck Exam: Normal Inspection. absent: Tenderness - Respiratory Exam Respiratory Exam: Rhonchi, Respiratory Distress - Cardiovascular Exam Cardiovascular Exam: REGULAR RHYTHM, +S1 - GI/Abdominal Exam GI & Abdominal Exam: Soft. absent: Tenderness - Extremities Exam Extremities Exam: Normal Inspection. absent: Tenderness - Neurological Exam Neurological Exam: Awake, CN II-XII Intact - Skin Skin Exam: Dry, Warm Assessment and Plan (1) Lower GI bleed Status: Acute (2) Diabetic nephropathy with proteinuria Status: Acute (3) CHF (congestive heart failure) Status: Chronic (4) ESRD (end stage renal disease) on dialysis Status: Chronic - Assessment and Plan (Free Text) Plan: Dialysis today and 11/05 Moderate UF as tolerated Transfuse as needed- per ICU Supportive care- prognosis poor
[2016-11-04] MEDS ORDERED: Albumin Human 5% (12.5 gm/250 ml) IV SCH (16:30)
[2016-11-04] MEDS: Epoetin Alfa 10,000 unit/ml Dialysis IV SCH (16:51)
[2016-11-04] MEDS: Meropenem 500 MG in Sodium Chloride 0.9% 100 ML IVPB SCH (18:22)
--- NOTE | 2016-11-04 23:02 | CP.PCM.PN ---
Subjective - Date & Time of Evaluation Date of Evaluation: 11/04/16 Time of Evaluation: 18:30 - Subjective Subjective: Patient seen and evaluated Does not respond to commands Poor prognosis D/W Family Objective - Vital Signs/Intake and Output Vital Signs (last 24 hours): Temp Pulse Resp BP Pulse Ox 98.3 F 79 16 83/34 L 100 11/04/16 20:00 11/04/16 21:00 11/04/16 21:00 11/04/16 20:45 11/04/16 20:00 Intake and Output: 11/04/16 11/05/16 18:59 06:59 Intake Total 465.8 133.5 Output Total 0 0 Balance 465.8 133.5 - Medications Medications: Current Medications Acetaminophen (Tylenol 650mg/20.3ml Solution Ud) 650 mg PO Q6 PRN PRN Reason: Temperature Last Admin: 11/03/16 12:55 Dose: 650 mg Epoetin Sly (Procrit) 10,000 unit IV MWF [facility] Last Admin: 11/04/16 16:51 Dose: Not Given Meropenem 500 mg/ Sodium (Chloride) 100 mls @ 100 mls/hr IVPB Q24H [facility] Last Admin: 11/04/16 18:22 Dose: 100 mls/hr Norepinephrine Bitartrate 8 mg (/ Dextrose) 258 mls @ 7.74 mls/hr IV .Q24H PRN ; Protocol; 4 MCG/MIN PRN Reason: TITRATE PER MD ORDER Last Admin: 11/04/16 18:03 Dose: 4 mcg/min, 7.74 mls/hr Insulin Human Regular (Novolin R) 0 unit SC Q6 REKHA PRN Reason: Protocol Last Admin: 11/04/16 18:44 Dose: 2 unit Levothyroxine Sodium (Synthroid) 200 mcg PO DAILY@0630 [facility] Last Admin: 11/04/16 05:40 Dose: 200 mcg Midodrine (Proamatine) 5 mg PO TID [facility] Last Admin: 11/04/16 18:28 Dose: 5 mg Pantoprazole Sodium (Protonix Susp) 40 mg NG DAILY [facility] Last Admin: 11/04/16 10:34 Dose: 40 mg - Labs Labs: 11/04/16 06:10 11/04/16 06:10 PT 19.5 SECONDS (9.7-12.2) H 10/28/16 08:07 INR 1.7 10/28/16 08:07 APTT 49 SECONDS (21-34) H 10/25/16 16:33
[2016-11-04 23:06] LABS: HEMATOCRIT 15.9 % (34.0-47.0); MEAN CELL VOLUME 99.2 fL (81.0-99.0); MEAN CORPUSCULAR HEMOGLOBIN 32.2 pg (27.0-31.0); MEAN CORPUSCULAR HGB CONC 32.4 g/dL (33.0-37.0); MEAN PLATELET VOLUME 9.5 fL (7.2-11.7); RED CELL DISTRIBUTION WIDTH 24.8 % (11.5-14.5)
[2016-11-05] MEDS: (Novolin R) Insulin Human Regular 100 units/ml vial SC SCH ×4 (05:55→17:40)
[2016-11-05] MEDS: Levothyroxine 200 MCG TAB PO SCH (06:57)
--- NOTE | 2016-11-05 08:34 | CP.PCM.PN ---
Subjective - Date & Time of Evaluation Date of Evaluation: 11/05/16 Time of Evaluation: 08:31 - Subjective Subjective: Surgery: Dr. Buck Patient remains in ICU. vent dependent. Per nursing report, patient with blood per rectum. Hgb was 5.2 and patient set to receive 2 units of PRBC, second unit currently running during exam. Patient remains hypotensive, requiring on and off levophed for pressure support. Objective - Vital Signs/Intake and Output Vital Signs (last 24 hours): Temp Pulse Resp BP Pulse Ox 98.4 F 100 H 16 97/38 L 100 11/05/16 07:15 11/05/16 07:15 11/05/16 07:15 11/05/16 07:15 11/05/16 07:15 Intake and Output: 11/05/16 11/05/16 06:59 18:59 Intake Total 298.2 14.1 Output Total 0 0 Balance 298.2 14.1 - Medications Medications: Current Medications Acetaminophen (Tylenol 650mg/20.3ml Solution Ud) 650 mg PO Q6 PRN PRN Reason: Temperature Last Admin: 11/03/16 12:55 Dose: 650 mg Epoetin Sly (Procrit) 10,000 unit IV MWF [facility] Last Admin: 11/04/16 16:51 Dose: Not Given Meropenem 500 mg/ Sodium (Chloride) 100 mls @ 100 mls/hr IVPB Q24H [facility] Last Admin: 11/04/16 18:22 Dose: 100 mls/hr Norepinephrine Bitartrate 8 mg (/ Dextrose) 258 mls @ 7.74 mls/hr IV .Q24H PRN ; Protocol; 4 MCG/MIN PRN Reason: TITRATE PER MD ORDER Last Admin: 11/04/16 18:03 Dose: 4 mcg/min, 7.74 mls/hr Insulin Human Regular (Novolin R) 0 unit SC Q6 [facility] PRN Reason: Protocol Last Admin: 11/05/16 05:55 Dose: Not Given Levothyroxine Sodium (Synthroid) 200 mcg PO DAILY@0630 [facility] Last Admin: 11/05/16 06:57 Dose: Not Given Midodrine (Proamatine) 5 mg PO TID [facility] Last Admin: 11/04/16 18:28 Dose: 5 mg Pantoprazole Sodium (Protonix Susp) 40 mg NG DAILY [facility] Last Admin: 11/04/16 10:34 Dose: 40 mg - Labs Labs: 11/04/16 23:04 11/04/16 06:10 PT 19.5 SECONDS (9.7-12.2) H 10/28/16 08:07 INR 1.7 10/28/16 08:07 APTT 49 SECONDS (21-34) H 10/25/16 16:33 - Constitutional Appears: Toxic, Cachectic, Chronically Ill - Head Exam Head Exam: ATRAUMATIC, NORMOCEPHALIC - ENT Exam ENT Exam: Mucous Membranes Dry Additional comments: NGT in place - Respiratory Exam Additional comments: trach vent dependent - Cardiovascular Exam Cardiovascular Exam: absent: Tachycardia - GI/Abdominal Exam GI & Abdominal Exam: Distended, Soft. absent: Guarding, Rebound - Rectal Exam Rectal Exam: Deferred - Extremities Exam Additional comments: necrosis noted on left middle finger as well as index finger, demarcating just below first knuckle. - Skin Skin Exam: Dry Assessment and Plan - Assessment and Plan (Free Text) Assessment: 76 y/o female with left finger ischemia most likely 2/2 steal syndrome from AVF w/ rectal bleeding and anemia 2/2 ischemic colitis requiring transfusion Plan: -at this time patient not clinically stable to undergo surgery for ischemia of fingers -prior discussion had with daughter regarding colon resection however daughter refused total colectomy -at this time current management per ICU team, transfuse prn and monitor ischemia of left fingers for progression/demarcation -patient condition remains guarded -further recs per Dr. Buck [facility] PGY3
[2016-11-05] MEDS: Pantoprazole 40 mg Susp UD NG SCH (10:00)
[2016-11-05 10:42] LABS: ALB/GLOB RATIO 0.6 (1.0-2.1); BASO % 0.2 % (0.0-2.0); BILIRUBIN,TOTAL 6.3 mg/dL (0.2-1.3); EOS % 0.1 % (0.0-4.0); HEMATOCRIT 23.7 % (34.0-47.0); LYMPH # 1.6 K/uL (1.0-4.3); LYMPH % 7.9 % (20.0-40.0); MEAN CORPUSCULAR HEMOGLOBIN 28.5 pg (27.0-31.0); MEAN CORPUSCULAR HGB CONC 32.6 g/dL (33.0-37.0); MEAN PLATELET VOLUME 9.5 fL (7.2-11.7); MONO # 1.9 K/uL (0.0-0.8); MONO % 9.6 % (0.0-10.0); NRBC % 0.2 % (0.0-2.0); RED CELL DISTRIBUTION WIDTH 16.8 % (11.5-14.5); TOTAL PROTEIN 5.5 g/dL (6.3-8.3); WHITE BLOOD COUNT 19.8 K/uL (4.8-10.8)
[2016-11-05 10:43] LABS: CALCIUM 8.2 mg/dl (8.6-10.4); MAGNESIUM 1.9 mg/dL (1.6-2.3); MEAN CELL VOLUME 87.2 fL (81.0-99.0); PHOSPHOROUS 4.3 mg/dL (2.5-4.5)
[2016-11-05 10:44] LABS: PLATELET COUNT 78 K/uL (130-400)
--- NOTE | 2016-11-05 11:34 | CP.CCUPN ---
CCU Subjective - Physician Review Events Since Last Encounter (Free Text): 11/05/16 11:16 patient now has BRBPR. CCU Objective - Vital Signs / Intake & Output Vital Signs (Last 4 hours): Vital Signs Temp Pulse Resp BP Pulse Ox 11/05/16 09:03 81 17 112/42 L 99 11/05/16 09:00 97.7 F 81 17 112/42 L 11/05/16 07:45 98 F 79 19 96/38 L 100 Intake and Output (Last 8hrs): Intake & Output 11/04/16 11/05/16 11/05/16 22:59 06:59 14:59 Intake Total 292.9 120.2 353.2 Output Total 0 0 0 Balance 292.9 120.2 353.2 Weight 118 lb Intake: IV 40 Intake, IV Amount 77.9 85.2 28.2 Right Distal Port PICC 77.9 85.2 28.2 Tube Feeding 175 35 0 Blood Product 0 325 Red Blood Cells Cpd As1 0 325 Lr Unit [id number] Red Blood Cells Cpd As1 0 Lr Unit [id number] Red Blood Cells Cpd As1 0 Lr Unit [id number] Output: Urine 0 0 0 Urethral (Dolan) 0 0 0 Other: # Bowel Movements 1 0 0 - Physical Exam Physical Exam Limitations: Positive for: Altered Mental Status Head: Positive for: Atraumatic Extroacular Muscles: Positive for: EOMI Mouth: Positive for: Dry Nose (Internal): Positive for: Other (NGT in place) Neck: Positive for: Other (trach in place) Respiratory/Chest: Positive for: Rhonchi. Negative for: Clear to Auscultation ( decreased in RLL), Respiratory Distress, Accessory Muscle Use Cardiovascular: Positive for: Regular Rate and Rhythm, Normal S1, S2. Negative for: Murmurs, Tachycardic, Bradycardic Abdomen: Negative for: Peritoneal Signs, Hernias Rectal: Negative for: Gross Blood Upper Extremity: Positive for: Cyanosis, Temperature Abnormalties, Other (cold fingers, ischemic 3rd digit on left hand ). Negative for: NORMAL PULSES, Neurovascularly Intact, Capillary Refill < 2s Neurological: Negative for: GCS=15, Speech Normal Skin: Positive for: Cold (bilateral hands), Other (gangrenous fingertips). Negative for: Warm Psychiatric: Positive for: Other (comatose). Negative for: Alert, Oriented x 3 , Normal Insight, Normal Concentration - Medications Active Medications: Active Medications Generic Name Dose Route Start Last Admin Trade Name Freq PRN Reason Stop Dose Admin Acetaminophen 650 mg 11/03/16 12:38 11/03/16 12:55 Tylenol 650mg/20.3ml Solution Ud PO 650 mg Q6 PRN Administration Temperature Epoetin Sly 10,000 unit 11/02/16 09:30 11/04/16 16:51 Procrit IV Not Given MWF REK[facility] Meropenem 500 mg/ Sodium 100 mls @ 100 mls/hr 10/25/16 19:00 11/04/16 18:22 Chloride IVPB 100 mls/hr Q24H REKHA Administration Norepinephrine Bitartrate 8 mg 258 mls @ 7.74 mls/hr 11/02/16 10:44 11/04/16 18:03 / Dextrose IV 4 mcg/min .Q24H PRN 7.74 mls/hr TITRATE PER MD ORDER Administration Protocol 4 MCG/MIN Insulin Human Regular 0 unit 10/26/16 06:00 11/05/16 05:55 Novolin R SC Not Given Q6 [facility] Protocol Levothyroxine Sodium 200 mcg 10/26/16 06:30 11/05/16 06:57 Synthroid PO Not Given DAILY@0630 [facility] Midodrine 5 mg 11/01/16 14:00 11/04/16 18:28 Proamatine PO 5 mg TID REKHA Administration Pantoprazole Sodium 40 mg 11/05/16 11:15 Protonix Inj IVP DAILY REKHA - Patient Studies Lab Studies: Microbiology Studies 11/03/16 09:00 Blood Culture - Preliminary Blood-Thru Central Line NO GROWTH AFTER 48 HOURS 11/03/16 08:45 Blood Culture - Preliminary Blood-Thru Central Line NO GROWTH AFTER 48 HOURS Lab Studies 11/05/16 11/05/16 11/05/16 Range/Units 10:26 10:26 05:55 WBC 19.8 H (4.8-10.8) K/uL RBC 2.71 L (3.80-5.20) Mil/uL Hgb 7.7 L D (11.0-16.0) g/dL Hct 23.7 L (34.0-47.0) % MCV 87.2 D (81.0-99.0) fL MCH 28.5 (27.0-31.0) pg MCHC 32.6 L (33.0-37.0) g/dL RDW 16.8 H (11.5-14.5) % Plt Count 78 L D (130-400) K/uL MPV 9.5 (7.2-11.7) fL Neut % (Auto) 82.2 H (50.0-75.0) % Lymph % (Auto) 7.9 L (20.0-40.0) % [place] % (Auto) 9.6 (0.0-10.0) % Eos % (Auto) 0.1 (0.0-4.0) % Baso % (Auto) 0.2 (0.0-2.0) % Neut # 16.3 H (1.8-7.0) K/uL Lymph # 1.6 (1.0-4.3) K/uL [place] # 1.9 H (0.0-0.8) K/uL Eos # 0.0 (0.0-0.7) K/uL Baso # 0.0 (0.0-0.2) K/uL Sodium 135 (132-148) mmol/L Potassium 4.0 (3.6-5.2) mmol/L Chloride 97 L (98-107) mmol/L Carbon Dioxide 21 L (22-30) mmol/L Anion Gap 21 H (10-20) BUN 33 H (7-17) mg/dL Creatinine 1.5 H (0.7-1.2) MG/DL Est GFR ( Amer) 41 Est GFR (Non-Af Amer) 34 POC Glucose (mg/dL) 185 H (65-110) mg/dL Random Glucose 212 H (65-105) mg/dL Calcium 8.2 L (8.6-10.4) mg/dl Phosphorus 4.3 (2.5-4.5) mg/dL Magnesium 1.9 (1.6-2.3) mg/dL Total Bilirubin 6.3 H (0.2-1.3) mg/dL AST 74 H D (14-36) U/L ALT 36 (9-52) U/L Alkaline Phosphatase 266 H (38-126) U/L Total Protein 5.5 L (6.3-8.3) g/dL Albumin 2.1 L (3.5-5.0) g/dL Globulin 3.5 (2.2-3.9) gm/dL Albumin/Globulin Ratio 0.6 L (1.0-2.1) Blood Type Antibody Screen 11/05/16 11/04/16 11/04/16 Range/Units 00:00 23:04 17:58 WBC 19.0 H (4.8-10.8) K/uL RBC 1.60 L (3.80-5.20) Mil/uL Hgb 5.2 L* D (11.0-16.0) g/dL Hct 15.9 L (34.0-47.0) % MCV 99.2 H (81.0-99.0) fL MCH 32.2 H (27.0-31.0) pg MCHC 32.4 L (33.0-37.0) g/dL RDW 24.8 H (11.5-14.5) % Plt Count 104 L D (130-400) K/uL MPV 9.5 (7.2-11.7) fL Neut % (Auto) (50.0-75.0) % Lymph % (Auto) (20.0-40.0) % [place] % (Auto) (0.0-10.0) % Eos % (Auto) (0.0-4.0) % Baso % (Auto) (0.0-2.0) % Neut # (1.8-7.0) K/uL Lymph # (1.0-4.3) K/uL [place] # (0.0-0.8) K/uL Eos # (0.0-0.7) K/uL Baso # (0.0-0.2) K/uL Sodium (132-148) mmol/L Potassium (3.6-5.2) mmol/L Chloride (98-107) mmol/L Carbon Dioxide (22-30) mmol/L Anion Gap (10-20) BUN (7-17) mg/dL Creatinine (0.7-1.2) MG/DL Est GFR ( Amer) Est GFR (Non-Af Amer) POC Glucose (mg/dL) 237 H 210 H (65-110) mg/dL Random Glucose (65-105) mg/dL Calcium (8.6-10.4) mg/dl Phosphorus (2.5-4.5) mg/dL Magnesium (1.6-2.3) mg/dL Total Bilirubin (0.2-1.3) mg/dL AST (14-36) U/L ALT (9-52) U/L Alkaline Phosphatase (38-126) U/L Total Protein (6.3-8.3) g/dL Albumin (3.5-5.0) g/dL Globulin (2.2-3.9) gm/dL Albumin/Globulin Ratio (1.0-2.1) Blood Type Antibody Screen 11/04/16 11/03/16 Range/Units 11:51 11:14 WBC (4.8-10.8) K/uL RBC (3.80-5.20) Mil/uL Hgb (11.0-16.0) g/dL Hct (34.0-47.0) % MCV (81.0-99.0) fL MCH (27.0-31.0) pg MCHC (33.0-37.0) g/dL RDW (11.5-14.5) % Plt Count (130-400) K/uL MPV (7.2-11.7) fL Neut % (Auto) (50.0-75.0) % Lymph % (Auto) (20.0-40.0) % [place] % (Auto) (0.0-10.0) % Eos % (Auto) (0.0-4.0) % Baso % (Auto) (0.0-2.0) % Neut # (1.8-7.0) K/uL Lymph # (1.0-4.3) K/uL [place] # (0.0-0.8) K/uL Eos # (0.0-0.7) K/uL Baso # (0.0-0.2) K/uL Sodium (132-148) mmol/L Potassium (3.6-5.2) mmol/L Chloride (98-107) mmol/L Carbon Dioxide (22-30) mmol/L Anion Gap (10-20) BUN (7-17) mg/dL Creatinine (0.7-1.2) MG/DL Est GFR ( Amer) Est GFR (Non-Af Amer) POC Glucose (mg/dL) 267 H (65-110) mg/dL Random Glucose (65-105) mg/dL Calcium (8.6-10.4) mg/dl Phosphorus (2.5-4.5) mg/dL Magnesium (1.6-2.3) mg/dL Total Bilirubin (0.2-1.3) mg/dL AST (14-36) U/L ALT (9-52) U/L Alkaline Phosphatase (38-126) U/L Total Protein (6.3-8.3) g/dL Albumin (3.5-5.0) g/dL Globulin (2.2-3.9) gm/dL Albumin/Globulin Ratio (1.0-2.1) Blood Type B POSITIVE Antibody Screen Negative Laboratory Results - last 24 hr 11/03/16 11/04/16 11/04/16 11:14 11:51 17:58 WBC RBC Hgb Hct MCV MCH MCHC RDW Plt Count MPV Neut % (Auto) Lymph % (Auto) [place] % (Auto) Eos % (Auto) Baso % (Auto) Neut # Lymph # [place] # Eos # Baso # Sodium Potassium Chloride Carbon Dioxide Anion Gap BUN Creatinine Est GFR ( Amer) Est GFR (Non-Af Amer) POC Glucose (mg/dL) 267 H 210 H Random Glucose Calcium Phosphorus Magnesium Total Bilirubin AST ALT Alkaline Phosphatase Total Protein Albumin Globulin Albumin/Globulin Ratio Blood Type B POSITIVE Antibody Screen Negative 11/04/16 11/05/16 11/05/16 23:04 00:00 05:55 WBC 19.0 H RBC 1.60 L Hgb 5.2 L* D Hct 15.9 L MCV 99.2 H MCH 32.2 H MCHC 32.4 L RDW 24.8 H Plt Count 104 L D MPV 9.5 Neut % (Auto) Lymph % (Auto) [place] % (Auto) Eos % (Auto) Baso % (Auto) Neut # Lymph # [place] # Eos # Baso # Sodium Potassium Chloride Carbon Dioxide Anion Gap BUN Creatinine Est GFR ( Amer) Est GFR (Non-Af Amer) POC Glucose (mg/dL) 237 H 185 H Random Glucose Calcium Phosphorus Magnesium Total Bilirubin AST ALT Alkaline Phosphatase Total Protein Albumin Globulin Albumin/Globulin Ratio Blood Type Antibody Screen 11/05/16 11/05/16 10:26 10:26 WBC 19.8 H RBC 2.71 L Hgb 7.7 L D Hct 23.7 L MCV 87.2 D MCH 28.5 MCHC 32.6 L RDW 16.8 H Plt Count 78 L D MPV 9.5 Neut % (Auto) 82.2 H Lymph % (Auto) 7.9 L [place] % (Auto) 9.6 Eos % (Auto) 0.1 Baso % (Auto) 0.2 Neut # 16.3 H Lymph # 1.6 [place] # 1.9 H Eos # 0.0 Baso # 0.0 Sodium 135 Potassium 4.0 Chloride 97 L Carbon Dioxide 21 L Anion Gap 21 H BUN 33 H Creatinine 1.5 H Est GFR ( Amer) 41 Est GFR (Non-Af Amer) 34 POC Glucose (mg/dL) Random Glucose 212 H Calcium 8.2 L Phosphorus 4.3 Magnesium 1.9 Total Bilirubin 6.3 H AST 74 H D ALT 36 Alkaline Phosphatase 266 H Total Protein 5.5 L Albumin 2.1 L Globulin 3.5 Albumin/Globulin Ratio 0.6 L Blood Type Antibody Screen Fingerstick Blood Sugar Results: 185 Review of Systems - Review of Systems Systems not reviewed;Unavailable: Altered Mental Status Critical Care Progress Note - Ventilator Checklist PUD Prophalyxis: Yes Assessment/Plan (1) Leucocytosis Assessment and plan: 77yo F. PMHx stage renal disease on hemodialysis, acute on chronic systolic CHF (EF of 29%), right ureteral stent (replaced 12/04/15), diabetes mellitus type 2 , right ureteral stent thoracenteses for recurrent pleural effusions ( complicated by hydropneumothorax and hemothorax, 08/12/16), AV fistula (12/10/15 ) (previous bleeding complications, 02/22/16, and occlusion status post thrombectomy and percutaneous transluminal angioplasty with new anastomosis, 09/07), CAD with stent, hypothyroidism with myxedema coma, prolonged hospitalization since July 2016, severe protein calorie malnutrition, recent ischemic colitis with bleeding, gangrenous fingertips. Neuro: Comatose, in persistent vegetative state. Pulm: Chronic respiratory failure, trached on vent. CV: Septic shock, on Levophed. Tried to titrate off using albumin drip, unsuccessful, continue Midodrrine. Hem: Anemia of chronic disease and critical illness. Anemia worsened with GI bleed, transfusing with PRBC. Renal: End-stage renal disease on hemodialysis. Endo: Diabetes mellitus type 2, patient's daughter refusing to allow us to give insulin to patient because of one episode of hypoglycemia many months ago, despite positions reassurances and explained medical dangers of hyperglycemia. Height both thyroidism and continue levothyroxine. GI: Nothing by mouth. Ischemic colitis with hemorrhage, not a candidate for intervention as this would be medically futile. ID: Septic shock, multiple sources. Empiric therapy with meropenem. DVT proph - scd's, holding anticoagulation with current GI bleed. GI proph - Protonix IV dolan for strict I/O's during acute illness Code status - full code Patient is chronically and critically ill with no hope of recovery. This is been explained in detail, repeatedly to the daughter of the patient. She is unwilling to understand that her mother will not recover. Critical Care Time spent 45 minutes Multi-disciplinary rounds were performed with house staff, nursing, speech therapy, respiratory therapy, pharmacy and nutrition with integrated input from the primary team/attending and other consulting services. The documented time is cumulative and includes review of patient data/exams/labs/chart review and examination of the patient on rounds and throughout the day; time is exclusive of any procedures or teaching time. Current Visit: Yes Status: Acute
--- NOTE | 2016-11-05 11:45 | CP.PCM.PN ---
Subjective - Date & Time of Evaluation Date of Evaluation: 11/05/16 Time of Evaluation: 09:00 - Subjective Subjective: nonverbal on respirator cannot obtain ROS on HD, receiving 2 u prbc on levophed Objective - Vital Signs/Intake and Output Vital Signs (last 24 hours): Temp Pulse Resp BP Pulse Ox 97.5 F L 86 20 93/39 L 100 11/05/16 11:24 11/05/16 11:35 11/05/16 11:35 11/05/16 11:35 11/05/16 11:35 Intake and Output: 11/05/16 11/05/16 06:59 18:59 Intake Total 298.2 611.2 Output Total 0 0 Balance 298.2 611.2 - Medications Medications: Current Medications Acetaminophen (Tylenol 650mg/20.3ml Solution Ud) 650 mg PO Q6 PRN PRN Reason: Temperature Last Admin: 11/03/16 12:55 Dose: 650 mg Epoetin Sly (Procrit) 10,000 unit IV MWF [facility] Last Admin: 11/04/16 16:51 Dose: Not Given Meropenem 500 mg/ Sodium (Chloride) 100 mls @ 100 mls/hr IVPB Q24H [facility] Last Admin: 11/04/16 18:22 Dose: 100 mls/hr Norepinephrine Bitartrate 8 mg (/ Dextrose) 258 mls @ 7.74 mls/hr IV .Q24H PRN ; Protocol; 4 MCG/MIN PRN Reason: TITRATE PER MD ORDER Last Admin: 11/05/16 11:35 Dose: 4 mcg/min, 7.74 mls/hr Insulin Human Regular (Novolin R) 0 unit SC Q6 [facility] PRN Reason: Protocol Last Admin: 11/05/16 05:55 Dose: Not Given Levothyroxine Sodium (Synthroid) 200 mcg PO DAILY@0630 [facility] Last Admin: 11/05/16 06:57 Dose: Not Given Midodrine (Proamatine) 5 mg PO TID [facility] Last Admin: 11/04/16 18:28 Dose: 5 mg Pantoprazole Sodium (Protonix Inj) 40 mg IVP DAILY [facility] - Labs Labs: 11/05/16 10:26 11/05/16 10:26 PT 19.5 SECONDS (9.7-12.2) H 10/28/16 08:07 INR 1.7 10/28/16 08:07 APTT 49 SECONDS (21-34) H 10/25/16 16:33 - Constitutional Appears: Chronically Ill - ENT Exam ENT Exam: Mucous Membranes Dry Additional comments: intubated - Neck Exam Neck Exam: Full ROM - Respiratory Exam Respiratory Exam: Decreased Breath Sounds. absent: Accessory Muscle Use - Cardiovascular Exam Cardiovascular Exam: Tachycardia. absent: Rubs - GI/Abdominal Exam GI & Abdominal Exam: absent: Distended, Tenderness - Extremities Exam Additional comments: gangrene of fingers Assessment and Plan - Assessment and Plan (Free Text) Assessment: esrd continued bleed from ischemic colitis blood transfusion support frequent HD for fluid overload history vent dependent gangrene of fingers, local wound care poor prognosis
[2016-11-05 12:03] LABS: EOSINOPHIL 1 % (0-4); NEUTROPHIL 80 % (50-75); TOTAL CELLS COUNTED 100
[2016-11-05 12:05] LABS: LARGE PLATELETS PRESENT
--- NOTE | 2016-11-05 18:00 | CP.PCM.PN ---
Subjective - Date & Time of Evaluation Date of Evaluation: 11/05/16 Time of Evaluation: 17:59 - Subjective Subjective: Patient is currently having increasing episodes of GI bleed. Patient is more awake. The blood pressure is on the low side. Patient received at least 4 units of blood transfusion in the last 24 hours. Family is at bedside, I extensively spoke to the patient daughter today. I also explained to the patient family regarding the poor prognosis. Patient family doctor is considering for possibility of DNR. Meanwhile we will continue the current active treatment. She will update the treating team about the advanced directives. We'll follow the patient. Objective - Vital Signs/Intake and Output Vital Signs (last 24 hours): Temp Pulse Resp BP Pulse Ox 97.4 F L 91 H 24 113/40 L 100 11/05/16 16:00 11/05/16 16:52 11/05/16 16:52 11/05/16 16:52 11/05/16 16:52 Intake and Output: 11/05/16 11/05/16 06:59 18:59 Intake Total 298.2 738.1 Output Total 0 0 Balance 298.2 738.1 - Medications Medications: Current Medications Acetaminophen (Tylenol 650mg/20.3ml Solution Ud) 650 mg PO Q6 PRN PRN Reason: Temperature Last Admin: 11/03/16 12:55 Dose: 650 mg Epoetin Sly (Procrit) 10,000 unit IV MWF [facility] Last Admin: 11/04/16 16:51 Dose: Not Given Meropenem 500 mg/ Sodium (Chloride) 100 mls @ 100 mls/hr IVPB Q24H [facility] Last Admin: 11/04/16 18:22 Dose: 100 mls/hr Norepinephrine Bitartrate 8 mg (/ Dextrose) 258 mls @ 7.74 mls/hr IV .Q24H PRN ; Protocol; 4 MCG/MIN PRN Reason: TITRATE PER MD ORDER Last Admin: 11/05/16 11:35 Dose: 4 mcg/min, 7.74 mls/hr Insulin Human Regular (Novolin R) 0 unit SC Q6 [facility] PRN Reason: Protocol Last Admin: 11/05/16 17:40 Dose: Not Given Levothyroxine Sodium (Synthroid) 200 mcg PO DAILY@0630 [facility] Last Admin: 11/05/16 06:57 Dose: Not Given Midodrine (Proamatine) 5 mg PO TID [facility] Last Admin: 11/05/16 14:34 Dose: Not Given Pantoprazole Sodium (Protonix Inj) 40 mg IVP DAILY [facility] Last Admin: 11/05/16 14:15 Dose: 40 mg - Labs Labs: 11/05/16 10:26 11/05/16 10:26 PT 19.5 SECONDS (9.7-12.2) H 10/28/16 08:07 INR 1.7 10/28/16 08:07 APTT 49 SECONDS (21-34) H 10/25/16 16:33
[2016-11-05] MEDS: Meropenem 500 MG in Sodium Chloride 0.9% 100 ML IVPB SCH (18:02)
--- NOTE | 2016-11-05 23:11 | CP.PCM.PN ---
Subjective - Date & Time of Evaluation Date of Evaluation: 11/05/16 Time of Evaluation: 14:15 - Subjective Subjective: Patient seen and evaluated Not in distress Objective - Vital Signs/Intake and Output Vital Signs (last 24 hours): Temp Pulse Resp BP Pulse Ox 98.2 F 91 H 23 119/72 100 11/05/16 20:00 11/05/16 21:00 11/05/16 21:00 11/05/16 20:52 11/05/16 21:00 Intake and Output: 11/05/16 11/06/16 18:59 06:59 Intake Total 942.4 123.9 Output Total 0 Balance 942.4 123.9 - Medications Medications: Current Medications Acetaminophen (Tylenol 650mg/20.3ml Solution Ud) 650 mg PO Q6 PRN PRN Reason: Temperature Last Admin: 11/03/16 12:55 Dose: 650 mg Epoetin Sly (Procrit) 10,000 unit IV MWF [facility] Last Admin: 11/04/16 16:51 Dose: Not Given Meropenem 500 mg/ Sodium (Chloride) 100 mls @ 100 mls/hr IVPB Q24H [facility] Last Admin: 11/05/16 18:02 Dose: 100 mls/hr Norepinephrine Bitartrate 8 mg (/ Dextrose) 258 mls @ 7.74 mls/hr IV .Q24H PRN ; Protocol; 4 MCG/MIN PRN Reason: TITRATE PER MD ORDER Last Titration: 11/05/16 18:00 Dose: 5.83 mcg/min, 11.3 mls/hr Dextrose (Dextrose 10% In Water) 1,000 mls @ 30 mls/hr IV .Q24H [facility] Last Admin: 11/05/16 18:10 Dose: 30 mls/hr Insulin Human Regular (Novolin R) 0 unit SC Q6 [facility] PRN Reason: Protocol Last Admin: 11/05/16 17:40 Dose: Not Given Levothyroxine Sodium (Synthroid) 200 mcg PO DAILY@0630 [facility] Last Admin: 11/05/16 06:57 Dose: Not Given Midodrine (Proamatine) 5 mg PO TID [facility] Last Admin: 11/05/16 18:08 Dose: Not Given Pantoprazole Sodium (Protonix Inj) 40 mg IVP DAILY [facility] Last Admin: 11/05/16 14:15 Dose: 40 mg - Labs Labs: 11/05/16 10:26 11/05/16 10:26 PT 19.5 SECONDS (9.7-12.2) H 10/28/16 08:07 INR 1.7 10/28/16 08:07 APTT 49 SECONDS (21-34) H 10/25/16 16:33
[2016-11-06] MEDS: Levothyroxine 200 MCG TAB PO SCH (06:00)
[2016-11-06 06:09] LABS: BASO # 0.1 K/uL (0.0-0.2); EOS # 0.1 K/uL (0.0-0.7); EOS % 0.8 % (0.0-4.0); LYMPH # 1.5 K/uL (1.0-4.3); LYMPH % 11.3 % (20.0-40.0); MEAN CELL VOLUME 86.9 fL (81.0-99.0); MEAN CORPUSCULAR HEMOGLOBIN 28.8 pg (27.0-31.0); MEAN CORPUSCULAR HGB CONC 33.2 g/dL (33.0-37.0); MONO # 1.4 K/uL (0.0-0.8); MONO % 10.8 % (0.0-10.0); NRBC % 0.3 % (0.0-2.0); RED CELL DISTRIBUTION WIDTH 16.6 % (11.5-14.5); WHITE BLOOD COUNT 13.2 K/uL (4.8-10.8)
[2016-11-06 06:22] LABS: CALCIUM 7.7 mg/dl (8.6-10.4)
[2016-11-06] MEDS: (Novolin R) Insulin Human Regular 100 units/ml vial SC SCH ×4 (06:30→17:57)
[2016-11-06 08:39] LABS: MAGNESIUM 1.9 mg/dL (1.6-2.3); PHOSPHOROUS 3.2 mg/dL (2.5-4.5)
[2016-11-06] MEDS ORDERED: Phytonadione 10 mg/ml Inj (Adult) SC STA (11:16)
--- NOTE | 2016-11-06 11:19 | CP.PCM.PN ---
Subjective - Date & Time of Evaluation Date of Evaluation: 11/06/16 Time of Evaluation: 11:17 - Subjective Subjective: pt is still bleeding on vent awake low platlet noted worseing bleeding spoke to daughter will add ddvap and vit k spoke to her about the dnr she will agree after she will speak to other family members today Objective - Vital Signs/Intake and Output Vital Signs (last 24 hours): Temp Pulse Resp BP Pulse Ox 98.1 F 83 19 100/37 L 100 11/06/16 08:00 11/06/16 11:00 11/06/16 11:00 11/06/16 10:34 11/06/16 11:00 Intake and Output: 11/06/16 11/06/16 06:59 18:59 Intake Total 495.6 425.5 Output Total 1 Balance 495.6 424.5 - Medications Medications: Current Medications Acetaminophen (Tylenol 650mg/20.3ml Solution Ud) 650 mg PO Q6 PRN PRN Reason: Temperature Last Admin: 11/03/16 12:55 Dose: 650 mg Epoetin Sly (Procrit) 10,000 unit IV MWF [facility] Last Admin: 11/04/16 16:51 Dose: Not Given Meropenem 500 mg/ Sodium (Chloride) 100 mls @ 100 mls/hr IVPB Q24H [facility] Last Admin: 11/05/16 18:02 Dose: 100 mls/hr Norepinephrine Bitartrate 8 mg (/ Dextrose) 258 mls @ 7.74 mls/hr IV .Q24H PRN ; Protocol; 4 MCG/MIN PRN Reason: TITRATE PER MD ORDER Last Titration: 11/06/16 11:15 Dose: 9 mcg/min, 17.41 mls/hr Dextrose (Dextrose 10% In Water) 1,000 mls @ 30 mls/hr IV .Q24H [facility] Last Admin: 11/05/16 18:10 Dose: 30 mls/hr Desmopressin Acetate 10 mcg/ (Sodium Chloride) 52.5 mls @ 100 mls/hr IV ONCE ONE Stop: 11/06/16 11:45 Insulin Human Regular (Novolin R) 0 unit SC Q6 [facility] PRN Reason: Protocol Last Admin: 11/06/16 06:30 Dose: Not Given Levothyroxine Sodium (Synthroid) 200 mcg PO DAILY@0630 [facility] Last Admin: 11/06/16 06:00 Dose: Not Given Midodrine (Proamatine) 5 mg PO TID [facility] Last Admin: 11/06/16 11:14 Dose: Not Given Pantoprazole Sodium (Protonix Inj) 40 mg IVP DAILY [facility] Last Admin: 11/06/16 09:41 Dose: 40 mg Phytonadione (Vitamin K Inj) 10 mg SC STAT STA Stop: 11/06/16 11:17 - Labs Labs: 11/06/16 06:02 11/06/16 06:02 PT 19.5 SECONDS (9.7-12.2) H 10/28/16 08:07 INR 1.7 10/28/16 08:07 APTT 49 SECONDS (21-34) H 10/25/16 16:33
[2016-11-06] MEDS ORDERED: Levothyroxine 200 mcg (0.2 mg) Inj IVP SCH (11:30)
[2016-11-06] MEDS: Levothyroxine 100 mcg (0.1 mg) Inj IVP SCH (12:02)
--- NOTE | 2016-11-06 14:08 | CP.CCUPN ---
CCU Subjective - Physician Review Events Since Last Encounter (Free Text): 11/06/16 14:05 patient still comatose. More blood clots from rectum. CCU Objective - Vital Signs / Intake & Output Vital Signs (Last 4 hours): Vital Signs Temp Pulse Resp BP Pulse Ox 11/06/16 13:04 105 H 16 94/41 L 100 11/06/16 13:00 82 21 100 11/06/16 12:34 84 19 90/35 L 100 11/06/16 12:04 83 19 117/33 L 99 11/06/16 12:00 97.5 F L 81 22 100 11/06/16 11:55 82 21 107/39 L 100 11/06/16 11:34 83 13 103/39 L 100 11/06/16 11:04 84 20 105/40 L 100 11/06/16 11:00 83 19 100 11/06/16 10:34 82 23 100/37 L 100 11/06/16 10:23 84 22 82/34 L 100 Intake and Output (Last 8hrs): Intake & Output 11/05/16 11/06/16 11/06/16 22:59 06:59 14:59 Intake Total 403.8 330.4 511.7 Output Total 1 Balance 403.8 330.4 510.7 Weight 119 lb 4.321 oz Intake: IV 85 223 Intake, IV Amount 318.8 330.4 288.7 Right Distal Port PICC 98.8 90.4 93.7 Right Proximal Port PICC 220 240 195 Tube Feeding 0 0 0 Output: Urine 0 Urethral (Dolan) 0 Urine, Voided 0 Stool 1 Other: # Bowel Movements 0 - Physical Exam Physical Exam Limitations: Positive for: Altered Mental Status Head: Positive for: Atraumatic Extroacular Muscles: Positive for: EOMI Mouth: Positive for: Dry Nose (Internal): Positive for: Other (NGT in place) Neck: Positive for: Other (trach in place) Respiratory/Chest: Positive for: Rhonchi. Negative for: Clear to Auscultation ( decreased in RLL), Respiratory Distress, Accessory Muscle Use Cardiovascular: Positive for: Regular Rate and Rhythm, Normal S1, S2. Negative for: Murmurs, Tachycardic, Bradycardic Abdomen: Negative for: Peritoneal Signs, Hernias Rectal: Negative for: Gross Blood Upper Extremity: Positive for: Cyanosis, Temperature Abnormalties, Other (cold fingers, ischemic 3rd digit on left hand ). Negative for: NORMAL PULSES, Neurovascularly Intact, Capillary Refill < 2s Lower Extremity: Positive for: Edema Neurological: Negative for: GCS=15, Speech Normal Skin: Positive for: Cold (bilateral hands), Other (gangrenous fingertips). Negative for: Warm Psychiatric: Positive for: Other (comatose). Negative for: Alert, Oriented x 3 , Normal Insight, Normal Concentration - Medications Active Medications: Active Medications Generic Name Dose Route Start Last Admin Trade Name Freq PRN Reason Stop Dose Admin Acetaminophen 650 mg 11/03/16 12:38 11/03/16 12:55 Tylenol 650mg/20.3ml Solution Ud PO 650 mg Q6 PRN Administration Temperature Epoetin Sly 10,000 unit 11/02/16 09:30 11/04/16 16:51 Procrit IV Not Given MWF REKHA Meropenem 500 mg/ Sodium 100 mls @ 100 mls/hr 10/25/16 19:00 11/05/16 18:02 Chloride IVPB 100 mls/hr Q24H REKHA Administration Norepinephrine Bitartrate 8 mg 258 mls @ 7.74 mls/hr 11/02/16 10:44 11/06/16 13:17 / Dextrose IV 7 mcg/min .Q24H PRN 13.54 mls/hr TITRATE PER MD ORDER Titration Protocol 4 MCG/MIN Dextrose 1,000 mls @ 30 mls/hr 11/05/16 18:00 11/05/16 18:10 Dextrose 10% In Water IV 30 mls/hr .Q24H REKHA Administration Insulin Human Regular 0 unit 10/26/16 06:00 11/06/16 13:22 Novolin R SC Not Given Q6 REKHA Protocol Levothyroxine Sodium 200 mcg 10/26/16 06:30 11/06/16 06:00 Synthroid PO Not Given DAILY@0630 REKHA Levothyroxine Sodium 150 mcg 11/06/16 12:00 11/06/16 12:02 Synthroid IVP 150 mcg DAILY REKHA Administration Midodrine 5 mg 11/01/16 14:00 11/06/16 11:14 Proamatine PO Not Given TID REKHA Pantoprazole Sodium 40 mg 11/05/16 11:15 11/06/16 09:41 Protonix Inj IVP 40 mg DAILY REKHA Administration - Patient Studies Lab Studies: Microbiology Studies 11/03/16 09:00 Blood Culture - Preliminary Blood-Thru Central Line NO GROWTH AFTER 3 DAYS 11/03/16 08:45 Blood Culture - Preliminary Blood-Thru Central Line NO GROWTH AFTER 3 DAYS 11/03/16 Unknown Gram Stain - Final Trachasp Sputum Culture - Final Methicillin Resistant S Aureus Lab Studies 11/06/16 11/06/16 11/06/16 Range/Units 11:50 06:02 06:02 WBC 13.2 H (4.8-10.8) K/uL RBC 3.34 L (3.80-5.20) Mil/uL Hgb 9.6 L (11.0-16.0) g/dL Hct 29.0 L (34.0-47.0) % MCV 86.9 (81.0-99.0) fL MCH 28.8 (27.0-31.0) pg MCHC 33.2 (33.0-37.0) g/dL RDW 16.6 H (11.5-14.5) % Plt Count 66 L (130-400) K/uL MPV 10.0 (7.2-11.7) fL Neut % (Auto) 76.1 H (50.0-75.0) % Lymph % (Auto) 11.3 L (20.0-40.0) % [place] % (Auto) 10.8 H (0.0-10.0) % Eos % (Auto) 0.8 (0.0-4.0) % Baso % (Auto) 1.0 (0.0-2.0) % Neut # 10.0 H (1.8-7.0) K/uL Lymph # 1.5 (1.0-4.3) K/uL [place] # 1.4 H (0.0-0.8) K/uL Eos # 0.1 (0.0-0.7) K/uL Baso # 0.1 (0.0-0.2) K/uL Sodium 133 (132-148) mmol/L Potassium 3.0 L (3.6-5.2) mmol/L Chloride 97 L (98-107) mmol/L Carbon Dioxide 28 (22-30) mmol/L Anion Gap 11 (10-20) BUN 25 H (7-17) mg/dL Creatinine 1.2 (0.7-1.2) MG/DL Est GFR ( Amer) 53 Est GFR (Non-Af Amer) 44 POC Glucose (mg/dL) 253 H (65-110) mg/dL Random Glucose 198 H (65-105) mg/dL Calcium 7.7 L (8.6-10.4) mg/dl Phosphorus 3.2 (2.5-4.5) mg/dL Magnesium 1.9 (1.6-2.3) mg/dL 11/06/16 11/05/16 11/05/16 Range/Units 05:31 23:44 17:36 WBC (4.8-10.8) K/uL RBC (3.80-5.20) Mil/uL Hgb (11.0-16.0) g/dL Hct (34.0-47.0) % MCV (81.0-99.0) fL MCH (27.0-31.0) pg MCHC (33.0-37.0) g/dL RDW (11.5-14.5) % Plt Count (130-400) K/uL MPV (7.2-11.7) fL Neut % (Auto) (50.0-75.0) % Lymph % (Auto) (20.0-40.0) % [place] % (Auto) (0.0-10.0) % Eos % (Auto) (0.0-4.0) % Baso % (Auto) (0.0-2.0) % Neut # (1.8-7.0) K/uL Lymph # (1.0-4.3) K/uL [place] # (0.0-0.8) K/uL Eos # (0.0-0.7) K/uL Baso # (0.0-0.2) K/uL Sodium (132-148) mmol/L Potassium (3.6-5.2) mmol/L Chloride (98-107) mmol/L Carbon Dioxide (22-30) mmol/L Anion Gap (10-20) BUN (7-17) mg/dL Creatinine (0.7-1.2) MG/DL Est GFR ( Amer) Est GFR (Non-Af Amer) POC Glucose (mg/dL) 218 H 171 H 163 H (65-110) mg/dL Random Glucose (65-105) mg/dL Calcium (8.6-10.4) mg/dl Phosphorus (2.5-4.5) mg/dL Magnesium (1.6-2.3) mg/dL Laboratory Results - last 24 hr 11/05/16 11/05/16 11/06/16 17:36 23:44 05:31 WBC RBC Hgb Hct MCV MCH MCHC RDW Plt Count MPV Neut % (Auto) Lymph % (Auto) [place] % (Auto) Eos % (Auto) Baso % (Auto) Neut # Lymph # [place] # Eos # Baso # Sodium Potassium Chloride Carbon Dioxide Anion Gap BUN Creatinine Est GFR ( Amer) Est GFR (Non-Af Amer) POC Glucose (mg/dL) 163 H 171 H 218 H Random Glucose Calcium Phosphorus Magnesium 11/06/16 11/06/16 11/06/16 06:02 06:02 11:50 WBC 13.2 H RBC 3.34 L Hgb 9.6 L Hct 29.0 L MCV 86.9 MCH 28.8 MCHC 33.2 RDW 16.6 H Plt Count 66 L MPV 10.0 Neut % (Auto) 76.1 H Lymph % (Auto) 11.3 L [place] % (Auto) 10.8 H Eos % (Auto) 0.8 Baso % (Auto) 1.0 Neut # 10.0 H Lymph # 1.5 [place] # 1.4 H Eos # 0.1 Baso # 0.1 Sodium 133 Potassium 3.0 L Chloride 97 L Carbon Dioxide 28 Anion Gap 11 BUN 25 H Creatinine 1.2 Est GFR ( Amer) 53 Est GFR (Non-Af Amer) 44 POC Glucose (mg/dL) 253 H Random Glucose 198 H Calcium 7.7 L Phosphorus 3.2 Magnesium 1.9 Fingerstick Blood Sugar Results: 253 Review of Systems - Review of Systems Systems not reviewed;Unavailable: Altered Mental Status Assessment/Plan (1) Leucocytosis Assessment and plan: 77yo F. PMHx stage renal disease on hemodialysis, acute on chronic systolic CHF (EF of 29%), right ureteral stent (replaced 12/04/15), diabetes mellitus type 2 , right ureteral stent thoracenteses for recurrent pleural effusions ( complicated by hydropneumothorax and hemothorax, 08/12/16), AV fistula (12/10/15 ) (previous bleeding complications, 02/22/16, and occlusion status post thrombectomy and percutaneous transluminal angioplasty with new anastomosis, 09/07), CAD with stent, hypothyroidism with myxedema coma, prolonged hospitalization since July 2016, severe protein calorie malnutrition, recent ischemic colitis with bleeding, gangrenous fingertips. Neuro: Comatose, in persistent vegetative state. Pulm: Chronic respiratory failure, trached on vent. CV: Septic shock, on Levophed. continue Midodrrine. Hem: Anemia of chronic disease and critical illness. Anemia worsened with GI bleed, transfusing with PRBC. Renal: End-stage renal disease on hemodialysis. Endo: Diabetes mellitus type 2, patient's daughter refusing to allow us to give insulin to patient because of one episode of hypoglycemia many months ago, despite positions reassurances and explained medical dangers of hyperglycemia. Height both thyroidism and continue levothyroxine. GI: Nothing by mouth. Ischemic colitis with hemorrhage, not a candidate for intervention as this would be medically futile. ID: Septic shock, multiple sources. Empiric therapy with meropenem. DVT proph - scd's, holding anticoagulation with current GI bleed. GI proph - Protonix IV dolan for strict I/O's during acute illness Code status - full code Patient is chronically and critically ill with no hope of recovery. This is been explained in detail, repeatedly to the daughter of the patient. Critical Care Time spent 45 minutes Multi-disciplinary rounds were performed with house staff, nursing, speech therapy, respiratory therapy, pharmacy and nutrition with integrated input from the primary team/attending and other consulting services. The documented time is cumulative and includes review of patient data/exams/labs/chart review and examination of the patient on rounds and throughout the day; time is exclusive of any procedures or teaching time. Current Visit: Yes Status: Acute
[2016-11-06] MEDS: Meropenem 500 MG in Sodium Chloride 0.9% 100 ML IVPB SCH (18:24)
--- NOTE | 2016-11-06 19:51 | CP.PCM.CON ---
History of Present Illness - History of Present Illness History of Present Illness: Patient seen and evaluated Much more alert and responsive Improving hemodynamics D/W daughter at bedside Review of Systems - Review of Systems Systems not reviewed;Unavailable: Altered Mental Status - Constitutional Constitutional: Anorexia - EENT Eyes: absent: As Per HPI, Blind Spots, Blurred Vision, Change in Vision, Decreased Night Vision, Diplopia, Discharge, Dry Eye, Exophthalmos, Floaters, Irritation, Itchy Eyes, Loss of Peripheral Vision, Pain, Photophobia, Requires Corrective Lenses, Sees Flashes, Spots in Vision, Tunnel Vision, Other Visual Disturbances, Loss of Vision, Other Ears: absent: As Per HPI, Decreased Hearing, Ear Discharge, Ear Pain, Tinnitus, Abnormal Hearing, Disequilibrium, Dizziness, Other Nose/Mouth/Throat: absent: As Per HPI, Epistaxis, Nasal Congestion, Nasal Discharge, Nasal Obstruction, Nasal Trauma, Nose Pain, Post Nasal Drip, Sinus Pain, Sinus Pressure, Bleeding Gums, Change in Voice, Dental Pain, Dry Mouth, Dysphagia, Halitosis, Hoarsness, Lip Swelling, Mouth Lesions, Mouth Pain, Odynophagia, Sore Throat, Throat Swelling, Tongue Swelling, Facial Pain, Neck Pain, Neck Mass, Other - Cardiovascular Cardiovascular: absent: As Per HPI, Acrocyanosis, Chest Pain, Chest Pain at Rest , Chest Pain with Activity, Claudication, Diaphoresis, Dyspnea, Dyspnea on Exertion, Edema, Irregular Heart Rhythm, Pain Radiating to Arm/Neck/Jaw, Leg Edema, Leg Ulcers, Lightheadedness, Orthopnea, Palpitations, Paroxysmal Nocturnal Dyspnea, Pedal Edema, Radiating Pain, Rapid Heart Rate, Slow Heart Rate, Syncope, Other - Respiratory Respiratory: Chest Congestion - Gastrointestinal Gastrointestinal: absent: As Per HPI, Abdominal Pain, Belching, Bloating, Change in Bowel Habits, Change in Stool Character, Coffee Ground Emesis, Constipation, Cramping, Diarrhea, Dyspepsia, Dysphagia, Early Satiety, Excessive Flatus, Fecal Incontinence, Heartburn, Hematemesis, Hematochezia, Loose Stools, Melena, Nausea, Odynophagia, Temesmus, Vomiting, Other - Musculoskeletal Musculoskeletal: Atrophy - Neurological Neurological: absent: As Per HPI, Abnormal Gait, Abnormal Hearing, Abnormal Movements, Abnormal Speech, Behavioral Changes, Burning Sensations, Confusion, Convulsions, Disequilibrium, Dizziness, Numbness, Focal Weakness, Frequent Falls , Headaches, Lack of Coordination, Loss of Vision, Memory Loss, Paresthesias, Radicular Pain, Restless Legs, Sensory Deficit, Syncope, Tingling, Tremor, Vertigo, Weakness, Other Visual Disturbances, Other Past Patient History - Infectious Disease Hx of Infectious Diseases: None - Past Medical History & Family History Past Medical History?: Yes - Past Social History Smoking Status: Never Smoked - CARDIAC Hx Congestive Heart Failure: Yes Hx Hypercholesterolemia: Yes Hx Hypertension: Yes Hx Peripheral Edema: Yes - PULMONARY Hx Respiratory Disorders: Yes Other/Comment: hx of thoracentesis,recurrent pleural effusion - NEUROLOGICAL Hx Neurological Disorder: No - HEENT Hx HEENT Problems: Yes Other/Comment: hard of hearing - RENAL Hx Chronic Kidney Disease: Yes - ENDOCRINE/METABOLIC Hx Hypothyroidism: Yes - HEMATOLOGICAL/ONCOLOGICAL Hx Blood Disorders: No - INTEGUMENTARY Hx Dermatological Problems: No - MUSCULOSKELETAL/RHEUMATOLOGICAL Hx Musculoskeletal Disorders: No Hx Falls: No - GASTROINTESTINAL Hx Crohn's Disease: No Hx Diverticulitis: No - GENITOURINARY/GYNECOLOGICAL Hx Genitourinary Disorders: Yes Hx Urinary Tract Infection: Yes (2006) Other/Comment: ureteral stent placed 06/2015 - PSYCHIATRIC Hx Substance Use: No - SURGICAL HISTORY Hx Coronary Artery Bypass Graft: Yes (2001) Hx Coronary Stent: Yes (x3 in 2006) - ANESTHESIA Hx Anesthesia: Yes Hx Anesthesia Reactions: No Hx Malignant Hyperthermia: No Meds Allergies/Adverse Reactions: Allergies Allergy/AdvReac Type Severity Reaction Status Date / Time Sulfa (Sulfonamide Allergy RASH Verified 10/25/16 15:46 Antibiotics) - Medications Medications: Current Medications Acetaminophen (Tylenol 650mg/20.3ml Solution Ud) 650 mg PO Q6 PRN PRN Reason: Temperature Last Admin: 11/03/16 12:55 Dose: 650 mg Epoetin Sly (Procrit) 10,000 unit IV MWF [facility] Last Admin: 11/04/16 16:51 Dose: Not Given Meropenem 500 mg/ Sodium (Chloride) 100 mls @ 100 mls/hr IVPB Q24H [facility] Last Admin: 11/06/16 18:24 Dose: 100 mls/hr Norepinephrine Bitartrate 8 mg (/ Dextrose) 258 mls @ 7.74 mls/hr IV .Q24H PRN ; Protocol; 4 MCG/MIN PRN Reason: TITRATE PER MD ORDER Last Titration: 11/06/16 13:17 Dose: 7 mcg/min, 13.54 mls/hr Dextrose (Dextrose 10% In Water) 1,000 mls @ 30 mls/hr IV .Q24H [facility] Last Admin: 11/06/16 18:32 Dose: 30 mls/hr Insulin Human Regular (Novolin R) 0 unit SC Q6 [facility] PRN Reason: Protocol Last Admin: 11/06/16 17:57 Dose: Not Given Levothyroxine Sodium (Synthroid) 150 mcg IVP DAILY [facility] Last Admin: 11/06/16 12:02 Dose: 150 mcg Midodrine (Proamatine) 5 mg PO TID [facility] Last Admin: 11/06/16 17:58 Dose: Not Given Pantoprazole Sodium (Protonix Inj) 40 mg IVP DAILY [facility] Last Admin: 11/06/16 09:41 Dose: 40 mg Physical Exam - Constitutional Appears: Toxic - Head Exam Head Exam: ATRAUMATIC - Eye Exam Eye Exam: EOMI - ENT Exam ENT Exam: Mucous Membranes Moist - Neck Exam Neck exam: Positive for: Normal Inspection - Respiratory Exam Respiratory Exam: Decreased Breath Sounds - Cardiovascular Exam Cardiovascular Exam: REGULAR RHYTHM, +S1, +S2 - GI/Abdominal Exam GI & Abdominal Exam: Normal Bowel Sounds, Soft - Extremities Exam Extremities exam: Positive for: pedal edema - Neurological Exam Additional comments: Drwosy - Skin Skin Exam: Warm Results - Vital Signs Recent Vital Signs: Last Vital Signs Temp 97.4 F L 11/06/16 15:47 Pulse 89 11/06/16 19:15 Resp 18 11/06/16 19:15 BP 99/38 L 11/06/16 19:15 Pulse Ox 100 11/06/16 19:15 - Labs Result Diagrams: 12/06/16 21:10 12/06/16 06:31 Labs: Laboratory Results - last 24 hr 11/05/16 11/06/16 11/06/16 23:44 05:31 06:02 WBC 13.2 H RBC 3.34 L Hgb 9.6 L Hct 29.0 L MCV 86.9 MCH 28.8 MCHC 33.2 RDW 16.6 H Plt Count 66 L MPV 10.0 Neut % (Auto) 76.1 H Lymph % (Auto) 11.3 L [place] % (Auto) 10.8 H Eos % (Auto) 0.8 Baso % (Auto) 1.0 Neut # 10.0 H Lymph # 1.5 Howard # 1.4 H Eos # 0.1 Baso # 0.1 Sodium Potassium Chloride Carbon Dioxide Anion Gap BUN Creatinine Est GFR ( Amer) Est GFR (Non-Af Amer) POC Glucose (mg/dL) 171 H 218 H Random Glucose Calcium Phosphorus Magnesium 11/06/16 11/06/16 11/06/16 06:02 11:50 17:26 WBC RBC Hgb Hct MCV MCH MCHC RDW Plt Count MPV Neut % (Auto) Lymph % (Auto) [place] % (Auto) Eos % (Auto) Baso % (Auto) Neut # Lymph # Howard # Eos # Baso # Sodium 133 Potassium 3.0 L Chloride 97 L Carbon Dioxide 28 Anion Gap 11 BUN 25 H Creatinine 1.2 Est GFR ( Amer) 53 Est GFR (Non-Af Amer) 44 POC Glucose (mg/dL) 253 H 298 H Random Glucose 198 H Calcium 7.7 L Phosphorus 3.2 Magnesium 1.9 Assessment & Plan - Assessment and Plan (Free Text) Assessment: 1. Metabolic encephalopathy 2. CAD 3. HTN 4. CKD on HD Continue supportive care
[2016-11-07] MEDS: (Novolin R) Insulin Human Regular 100 units/ml vial SC SCH ×4 (00:05→18:52)
[2016-11-07 06:26] LABS: BASO # 0.1 K/uL (0.0-0.2); BASO % 0.7 % (0.0-2.0); EOS # 0.1 K/uL (0.0-0.7); EOS % 0.5 % (0.0-4.0); HEMATOCRIT 19.2 % (34.0-47.0); LYMPH # 1.3 K/uL (1.0-4.3); LYMPH % 8.3 % (20.0-40.0); MEAN CELL VOLUME 88.5 fL (81.0-99.0); MEAN CORPUSCULAR HEMOGLOBIN 29.2 pg (27.0-31.0); MEAN CORPUSCULAR HGB CONC 32.9 g/dL (33.0-37.0); MEAN PLATELET VOLUME 10.3 fL (7.2-11.7); MONO # 0.9 K/uL (0.0-0.8); MONO % 5.7 % (0.0-10.0); NRBC % 0.2 % (0.0-2.0); PLATELET COUNT 72 K/uL (130-400); RED CELL DISTRIBUTION WIDTH 17.3 % (11.5-14.5); WHITE BLOOD COUNT 16.2 K/uL (4.8-10.8)
[2016-11-07 06:39] LABS: ALB/GLOB RATIO 0.5 (1.0-2.1); BILIRUBIN,TOTAL 5.6 mg/dL (0.2-1.3); CALCIUM 7.7 mg/dl (8.6-10.4); MAGNESIUM 1.7 mg/dL (1.6-2.3); POTASSIUM 3.2 mmol/L (3.6-5.2); TOTAL PROTEIN 5.4 g/dL (6.3-8.3)
--- NOTE | 2016-11-07 07:11 | CP.CCUPN ---
CCU Subjective - Physician Review Subjective (Free Text): Patient seen and examined in the AM at bedside. Patient is not alert and not oriented. Per nurse patient had one event of bloody stool over night but has not had one since. Patient continues to be on Norepinephrine for blood pressure. CCU Objective - Vital Signs / Intake & Output Vital Signs (Last 4 hours): Vital Signs Temp Pulse Resp BP Pulse Ox 11/07/16 06:00 83 21 100 11/07/16 05:37 84 20 88/37 L 100 11/07/16 04:45 88 20 96/41 L 99 11/07/16 04:15 90 15 98/41 L 99 11/07/16 04:00 98.4 F 89 17 100 11/07/16 03:45 102/43 L 11/07/16 03:15 89 17 99/38 L 100 Intake and Output (Last 8hrs): Intake & Output 11/06/16 11/07/16 11/07/16 22:59 06:59 14:59 Intake Total 344.8 344.8 Output Total 0 0 Balance 344.8 344.8 Weight 117 lb 15.157 oz Intake: IV 0 Intake, IV Amount 344.8 344.8 Right Distal Port PICC 104.8 104.8 Right Proximal Port PICC 240 240 Tube Feeding 0 0 Output: Urine 0 0 Urine, Voided 0 0 Other: # Bowel Movements 0 1 - Physical Exam Head: Positive for: Atraumatic Extroacular Muscles: Positive for: EOMI Mouth: Positive for: Dry Nose (Internal): Positive for: Other (NGT in place) Neck: Positive for: Other (trach in place) Respiratory/Chest: Positive for: Rhonchi. Negative for: Clear to Auscultation, Respiratory Distress, Accessory Muscle Use Cardiovascular: Positive for: Regular Rate and Rhythm, Normal S1, S2. Negative for: Murmurs, Tachycardic, Bradycardic Abdomen: Negative for: Peritoneal Signs, Hernias Rectal: Negative for: Gross Blood Upper Extremity: Positive for: Cyanosis, Temperature Abnormalties, Other (cold fingers, ischemic 3rd digit on left hand ). Negative for: NORMAL PULSES, Neurovascularly Intact, Capillary Refill < 2s Lower Extremity: Positive for: Edema Neurological: Negative for: GCS=15, Speech Normal Skin: Positive for: Cold (bilateral hands), Other (gangrenous fingertips). Negative for: Warm Psychiatric: Positive for: Other (comatose). Negative for: Alert, Oriented x 3 , Normal Insight, Normal Concentration - Medications Active Medications: Active Medications Generic Name Dose Route Start Last Admin Trade Name Freq PRN Reason Stop Dose Admin Acetaminophen 650 mg 11/03/16 12:38 11/03/16 12:55 Tylenol 650mg/20.3ml Solution Ud PO 650 mg Q6 PRN Administration Temperature Epoetin Sly 10,000 unit 11/02/16 09:30 11/04/16 16:51 Procrit IV Not Given MWF RE[facility] Meropenem 500 mg/ Sodium 100 mls @ 100 mls/hr 10/25/16 19:00 11/06/16 18:24 Chloride IVPB 100 mls/hr Q24H REK[facility] Administration Norepinephrine Bitartrate 8 mg 258 mls @ 7.74 mls/hr 11/02/16 10:44 11/06/16 20:00 / Dextrose IV 6.77 mcg/min .Q24H PRN 13.1 mls/hr TITRATE PER MD ORDER Titration Protocol 4 MCG/MIN Dextrose 1,000 mls @ 30 mls/hr 11/05/16 18:00 11/06/16 18:32 Dextrose 10% In Water IV 30 mls/hr .Q24H REK[facility] Administration Insulin Human Regular 0 unit 10/26/16 06:00 11/07/16 06:51 Novolin R SC Not Given Q6 REK[facility] Protocol Levothyroxine Sodium 150 mcg 11/06/16 12:00 11/06/16 12:02 Synthroid IVP 150 mcg DAILY RE[facility] Administration Midodrine 5 mg 11/01/16 14:00 11/06/16 17:58 Proamatine PO Not Given TID REKHA Pantoprazole Sodium 40 mg 11/05/16 11:15 11/06/16 09:41 Protonix Inj IVP 40 mg DAILY RE[facility] Administration - Patient Studies Lab Studies: Microbiology Studies 11/03/16 09:00 Blood Culture - Preliminary Blood-Thru Central Line NO GROWTH AFTER 3 DAYS 11/03/16 08:45 Blood Culture - Preliminary Blood-Thru Central Line NO GROWTH AFTER 3 DAYS 11/03/16 Unknown Gram Stain - Final Trachasp Sputum Culture - Final Methicillin Resistant S Aureus Lab Studies 11/07/16 11/07/16 11/07/16 Range/Units 06:11 06:11 05:51 WBC 16.2 H (4.8-10.8) K/uL RBC 2.17 L (3.80-5.20) Mil/uL Hgb 6.3 L* D (11.0-16.0) g/dL Hct 19.2 L (34.0-47.0) % MCV 88.5 (81.0-99.0) fL MCH 29.2 (27.0-31.0) pg MCHC 32.9 L (33.0-37.0) g/dL RDW 17.3 H (11.5-14.5) % Plt Count 72 L (130-400) K/uL MPV 10.3 (7.2-11.7) fL Neut % (Auto) 84.8 H (50.0-75.0) % Lymph % (Auto) 8.3 L (20.0-40.0) % [place] % (Auto) 5.7 (0.0-10.0) % Eos % (Auto) 0.5 (0.0-4.0) % Baso % (Auto) 0.7 (0.0-2.0) % Neut # 13.8 H (1.8-7.0) K/uL Lymph # 1.3 (1.0-4.3) K/uL [place] # 0.9 H (0.0-0.8) K/uL Eos # 0.1 (0.0-0.7) K/uL Baso # 0.1 (0.0-0.2) K/uL Sodium 130 L (132-148) mmol/L Potassium 3.2 L (3.6-5.2) mmol/L Chloride 95 L (98-107) mmol/L Carbon Dioxide 26 (22-30) mmol/L Anion Gap 12 (10-20) BUN 33 H (7-17) mg/dL Creatinine 1.7 H (0.7-1.2) MG/DL Est GFR ( Amer) 36 Est GFR (Non-Af Amer) 29 POC Glucose (mg/dL) 343 H (65-110) mg/dL Random Glucose 245 H (65-105) mg/dL Calcium 7.7 L (8.6-10.4) mg/dl Phosphorus 4.0 (2.5-4.5) mg/dL Magnesium 1.7 (1.6-2.3) mg/dL Total Bilirubin 5.6 H (0.2-1.3) mg/dL AST 41 H D (14-36) U/L ALT 26 (9-52) U/L Alkaline Phosphatase 199 H D (38-126) U/L Total Protein 5.4 L (6.3-8.3) g/dL Albumin 1.8 L (3.5-5.0) g/dL Globulin 3.6 (2.2-3.9) gm/dL Albumin/Globulin Ratio 0.5 L (1.0-2.1) 11/06/16 11/06/16 11/06/16 Range/Units 23:54 17:26 11:50 WBC (4.8-10.8) K/uL RBC (3.80-5.20) Mil/uL Hgb (11.0-16.0) g/dL Hct (34.0-47.0) % MCV (81.0-99.0) fL MCH (27.0-31.0) pg MCHC (33.0-37.0) g/dL RDW (11.5-14.5) % Plt Count (130-400) K/uL MPV (7.2-11.7) fL Neut % (Auto) (50.0-75.0) % Lymph % (Auto) (20.0-40.0) % [place] % (Auto) (0.0-10.0) % Eos % (Auto) (0.0-4.0) % Baso % (Auto) (0.0-2.0) % Neut # (1.8-7.0) K/uL Lymph # (1.0-4.3) K/uL [place] # (0.0-0.8) K/uL Eos # (0.0-0.7) K/uL Baso # (0.0-0.2) K/uL Sodium (132-148) mmol/L Potassium (3.6-5.2) mmol/L Chloride (98-107) mmol/L Carbon Dioxide (22-30) mmol/L Anion Gap (10-20) BUN (7-17) mg/dL Creatinine (0.7-1.2) MG/DL Est GFR ( Amer) Est GFR (Non-Af Amer) POC Glucose (mg/dL) 297 H 298 H 253 H (65-110) mg/dL Random Glucose (65-105) mg/dL Calcium (8.6-10.4) mg/dl Phosphorus (2.5-4.5) mg/dL Magnesium (1.6-2.3) mg/dL Total Bilirubin (0.2-1.3) mg/dL AST (14-36) U/L ALT (9-52) U/L Alkaline Phosphatase (38-126) U/L Total Protein (6.3-8.3) g/dL Albumin (3.5-5.0) g/dL Globulin (2.2-3.9) gm/dL Albumin/Globulin Ratio (1.0-2.1) 11/06/16 Range/Units 06:02 WBC (4.8-10.8) K/uL RBC (3.80-5.20) Mil/uL Hgb (11.0-16.0) g/dL Hct (34.0-47.0) % MCV (81.0-99.0) fL MCH (27.0-31.0) pg MCHC (33.0-37.0) g/dL RDW (11.5-14.5) % Plt Count (130-400) K/uL MPV (7.2-11.7) fL Neut % (Auto) (50.0-75.0) % Lymph % (Auto) (20.0-40.0) % [place] % (Auto) (0.0-10.0) % Eos % (Auto) (0.0-4.0) % Baso % (Auto) (0.0-2.0) % Neut # (1.8-7.0) K/uL Lymph # (1.0-4.3) K/uL [place] # (0.0-0.8) K/uL Eos # (0.0-0.7) K/uL Baso # (0.0-0.2) K/uL Sodium 133 (132-148) mmol/L Potassium 3.0 L (3.6-5.2) mmol/L Chloride 97 L (98-107) mmol/L Carbon Dioxide 28 (22-30) mmol/L Anion Gap 11 (10-20) BUN 25 H (7-17) mg/dL Creatinine 1.2 (0.7-1.2) MG/DL Est GFR ( Amer) 53 Est GFR (Non-Af Amer) 44 POC Glucose (mg/dL) (65-110) mg/dL Random Glucose 198 H (65-105) mg/dL Calcium 7.7 L (8.6-10.4) mg/dl Phosphorus 3.2 (2.5-4.5) mg/dL Magnesium 1.9 (1.6-2.3) mg/dL Total Bilirubin (0.2-1.3) mg/dL AST (14-36) U/L ALT (9-52) U/L Alkaline Phosphatase (38-126) U/L Total Protein (6.3-8.3) g/dL Albumin (3.5-5.0) g/dL Globulin (2.2-3.9) gm/dL Albumin/Globulin Ratio (1.0-2.1) Laboratory Results - last 24 hr 11/06/16 11/06/16 11/06/16 06:02 11:50 17:26 WBC RBC Hgb Hct MCV MCH MCHC RDW Plt Count MPV Neut % (Auto) Lymph % (Auto) [place] % (Auto) Eos % (Auto) Baso % (Auto) Neut # Lymph # [place] # Eos # Baso # Sodium 133 Potassium 3.0 L Chloride 97 L Carbon Dioxide 28 Anion Gap 11 BUN 25 H Creatinine 1.2 Est GFR ( Amer) 53 Est GFR (Non-Af Amer) 44 POC Glucose (mg/dL) 253 H 298 H Random Glucose 198 H Calcium 7.7 L Phosphorus 3.2 Magnesium 1.9 Total Bilirubin AST ALT Alkaline Phosphatase Total Protein Albumin Globulin Albumin/Globulin Ratio 11/06/16 11/07/16 11/07/16 23:54 05:51 06:11 WBC 16.2 H RBC 2.17 L Hgb 6.3 L* D Hct 19.2 L MCV 88.5 MCH 29.2 MCHC 32.9 L RDW 17.3 H Plt Count 72 L MPV 10.3 Neut % (Auto) 84.8 H Lymph % (Auto) 8.3 L [place] % (Auto) 5.7 Eos % (Auto) 0.5 Baso % (Auto) 0.7 Neut # 13.8 H Lymph # 1.3 [place] # 0.9 H Eos # 0.1 Baso # 0.1 Sodium Potassium Chloride Carbon Dioxide Anion Gap BUN Creatinine Est GFR ( Amer) Est GFR (Non-Af Amer) POC Glucose (mg/dL) 297 H 343 H Random Glucose Calcium Phosphorus Magnesium Total Bilirubin AST ALT Alkaline Phosphatase Total Protein Albumin Globulin Albumin/Globulin Ratio 11/07/16 06:11 WBC RBC Hgb Hct MCV MCH MCHC RDW Plt Count MPV Neut % (Auto) Lymph % (Auto) [place] % (Auto) Eos % (Auto) Baso % (Auto) Neut # Lymph # [place] # Eos # Baso # Sodium 130 L Potassium 3.2 L Chloride 95 L Carbon Dioxide 26 Anion Gap 12 BUN 33 H Creatinine 1.7 H Est GFR ( Amer) 36 Est GFR (Non-Af Amer) 29 POC Glucose (mg/dL) Random Glucose 245 H Calcium 7.7 L Phosphorus 4.0 Magnesium 1.7 Total Bilirubin 5.6 H AST 41 H D ALT 26 Alkaline Phosphatase 199 H D Total Protein 5.4 L Albumin 1.8 L Globulin 3.6 Albumin/Globulin Ratio 0.5 L Fingerstick Blood Sugar Results: 343 Review of Systems - Review of Systems Systems not reviewed;Unavailable: Intubated Assessment/Plan - Assessment and Plan (Free Text) Assessment: 76F admitted for GI bleed; s/p flexible sigmoidoscopy and multiple transfusions. HgB now stable x 6 days Plan: Neuro: -GCS 9T - at baseline likely 2/2 metabolic encephalopathy - Comatose Pulm: - Chronic Respiratory failure - Trach on vent -CT chest shows b/l pleural effusions R>L with subsegmental atelectasis CV: - Septic Shock - BP mildly improved - systolic now 100-110s - Albumin 250 mls at 50 - Norepinephrine 8mg - Tylenol 650mg IV - Dr Long on board. Pt high risk for any procedure but can proceed if clinical indicated - Left hand with ischemic necrosis - consult placed for vasc Dr Buck - likely nothing to do Heme: - Anemia of Chronic Disease and critical illness - H/H (11/07): 6.3/19.2 - Patient will receive 2 units of blood 11/07 - will cont to monitor H/H and for rectal bleed Renal: - ESRD - HD as per Dr Mcfarland - Dr Trent on consult --> help appreciated Endo: -Insulin sliding scale GI: - NGT for enteral feedings - Protonix drip for GI bleed - CT shows significant colitis at rectosigmoid junction - Ischemic colitis with hemorrhage, not a candidate for intervention as this would be medically futile. - Flexible sigmoidoscopy at bedside 10/28/16 shows ischemic colitis - Fam declined sx - Sx and GI signed off ID: - PO Vanc and meropenem - Septic Shock - multiple sources Pt chronically ill, prognosis very poor DVT proph - SCDs, no anti-coagulation due to acute bleed GI proph - Protonix 40mg IVP daily Code status - Full Case discussed with Dr. Ruthy Brewer PGY-1
[2016-11-07 08:26] LABS: BASOPHIL 1 % (0-2); EOSINOPHIL 2 % (0-4); NEUTROPHIL 80 % (50-75); TOTAL CELLS COUNTED 100
[2016-11-07] MEDS: Epoetin Alfa 10,000 unit/ml Dialysis IV SCH (09:31)
[2016-11-07] MEDS ORDERED: Albumin Human 25% (12.5 gm/50 ml) IV ONE ×2 (09:45→10:16)
--- NOTE | 2016-11-07 11:12 | CP.PCM.PN ---
Subjective - Date & Time of Evaluation Date of Evaluation: 11/07/16 Time of Evaluation: 11:09 - Subjective Subjective: On dialysis now- to remove about 2500ml Given 2 units IV albumin for hypotension Remains on vent; awake; not able to verbalize To receive 2 units prbcs blood transfusion with HD Objective - Vital Signs/Intake and Output Vital Signs (last 24 hours): Temp Pulse Resp BP Pulse Ox 97.6 F 84 20 89/39 L 100 11/07/16 11:04 11/07/16 11:04 11/07/16 11:04 11/07/16 11:04 11/07/16 09:20 Intake and Output: 11/07/16 11/07/16 06:59 18:59 Intake Total 517.2 243.1 Output Total 0 0 Balance 517.2 243.1 - Medications Medications: Current Medications Acetaminophen (Tylenol 650mg/20.3ml Solution Ud) 650 mg PO Q6 PRN PRN Reason: Temperature Last Admin: 11/03/16 12:55 Dose: 650 mg Epoetin Sly (Procrit) 10,000 unit IV MWF [facility] Last Admin: 11/07/16 09:31 Dose: 10,000 unit Norepinephrine Bitartrate 8 mg (/ Dextrose) 258 mls @ 7.74 mls/hr IV .Q24H PRN ; Protocol; 4 MCG/MIN PRN Reason: TITRATE PER MD ORDER Last Admin: 11/07/16 07:44 Dose: 6.77 mcg/min, 13.09 mls/hr Dextrose (Dextrose 10% In Water) 1,000 mls @ 30 mls/hr IV .Q24H [facility] Last Admin: 11/06/16 18:32 Dose: 30 mls/hr Insulin Human Regular (Novolin R) 0 unit SC Q6 [facility] PRN Reason: Protocol Last Admin: 11/07/16 06:51 Dose: Not Given Levothyroxine Sodium (Synthroid) 150 mcg IVP DAILY [facility] Last Admin: 11/06/16 12:02 Dose: 150 mcg Pantoprazole Sodium (Protonix Inj) 40 mg IVP DAILY [facility] Last Admin: 11/06/16 09:41 Dose: 40 mg - Labs Labs: 11/07/16 06:11 11/07/16 06:11 PT 19.5 SECONDS (9.7-12.2) H 10/28/16 08:07 INR 1.7 10/28/16 08:07 APTT 49 SECONDS (21-34) H 10/25/16 16:33 - Constitutional Appears: In Acute Distress, Chronically Ill - Head Exam Head Exam: ATRAUMATIC, NORMAL INSPECTION - Eye Exam Eye Exam: EOMI, Normal appearance - Neck Exam Neck Exam: Normal Inspection. absent: Tenderness - Respiratory Exam Respiratory Exam: Rhonchi, Respiratory Distress - Cardiovascular Exam Cardiovascular Exam: REGULAR RHYTHM, +S1 - GI/Abdominal Exam GI & Abdominal Exam: Soft. absent: Tenderness - Extremities Exam Extremities Exam: Normal Inspection. absent: Tenderness - Neurological Exam Neurological Exam: Altered, Motor Sensory Deficit - Skin Skin Exam: Dry, Warm Assessment and Plan (1) Lower GI bleed Status: Acute (2) Diabetic nephropathy with proteinuria Status: Acute (3) CHF (congestive heart failure) Status: Chronic (4) ESRD (end stage renal disease) on dialysis Status: Chronic - Assessment and Plan (Free Text) Plan: Dialysis now and MWF Adequate UF Blood transfusion Family discussion with ICU team about withdrawal of care pending- px is grim
[2016-11-07] MEDS: Levothyroxine 100 mcg (0.1 mg) Inj IVP SCH (13:58)
[2016-11-07 14:51] LABS: BASO # 0.1 K/uL (0.0-0.2); LYMPH # 1.2 K/uL (1.0-4.3); MEAN PLATELET VOLUME 9.7 fL (7.2-11.7); MONO # 1.2 K/uL (0.0-0.8); NRBC % 0.1 % (0.0-2.0)
--- NOTE | 2016-11-07 14:53 | CP.PCM.PN ---
<Angle Tomas - Last Filed: 11/07/16 16:40> Subjective - Date & Time of Evaluation Date of Evaluation: 11/07/16 Time of Evaluation: 14:49 - Subjective Subjective: Gastroenterology Fellow/PGY5 Progress Note ICU team notes large fibrous clot protruding from rectal vault and Flexiseal removed since last evaluated patient on 11/01/16. Nursing and ICU team note recurrent GI blood loss since 11/04/16. Received two units pRBCs with dialysis today. On Levophed 8 mcg/kg/min. A 12-point review of systems unable to be completed with nonverbal state. Objective - Vital Signs/Intake and Output Vital Signs (last 24 hours): Temp Pulse Resp BP Pulse Ox 98.1 F 89 22 117/50 L 100 11/07/16 13:00 11/07/16 13:00 11/07/16 13:00 11/07/16 12:32 11/07/16 13:00 Intake and Output: 11/07/16 11/07/16 06:59 18:59 Intake Total 517.2 1251.7 Output Total 0 0 Balance 517.2 1251.7 - Medications Medications: Current Medications Acetaminophen (Tylenol 650mg/20.3ml Solution Ud) 650 mg PO Q6 PRN PRN Reason: Temperature Last Admin: 11/03/16 12:55 Dose: 650 mg Epoetin Sly (Procrit) 10,000 unit IV MWF [facility] Last Admin: 11/07/16 09:31 Dose: 10,000 unit Norepinephrine Bitartrate 8 mg (/ Dextrose) 258 mls @ 7.74 mls/hr IV .Q24H PRN ; Protocol; 4 MCG/MIN PRN Reason: TITRATE PER MD ORDER Last Admin: 11/07/16 07:44 Dose: 6.77 mcg/min, 13.09 mls/hr Dextrose (Dextrose 10% In Water) 1,000 mls @ 30 mls/hr IV .Q24H [facility] Last Admin: 11/06/16 18:32 Dose: 30 mls/hr Insulin Human Regular (Novolin R) 0 unit SC Q6 [facility] PRN Reason: Protocol Last Admin: 11/07/16 13:58 Dose: Not Given Levothyroxine Sodium (Synthroid) 150 mcg IVP DAILY [facility] Last Admin: 11/07/16 13:58 Dose: 150 mcg Pantoprazole Sodium (Protonix Inj) 40 mg IVP DAILY [facility] Last Admin: 11/07/16 13:57 Dose: 40 mg - Labs Labs: 11/07/16 06:11 11/07/16 06:11 PT 19.5 SECONDS (9.7-12.2) H 10/28/16 08:07 INR 1.7 10/28/16 08:07 APTT 49 SECONDS (21-34) H 10/25/16 16:33 - Constitutional Appears: Toxic, Chronically Ill - Head Exam Head Exam: ATRAUMATIC, NORMOCEPHALIC - Eye Exam Eye Exam: EOMI, PERRL Pupil Exam: PERRL. absent: Miosis, Mydriatic - ENT Exam ENT Exam: Mucous Membranes Dry, Normal Oropharynx Additional comments: NGT in place right nares - Neck Exam Neck Exam: Full ROM, Normal Inspection Additional comments: trach in place on ventilator support - Cardiovascular Exam Cardiovascular Exam: RRR, +S1, +S2. absent: Gallop, Rubs - GI/Abdominal Exam GI & Abdominal Exam: Soft, Normal Bowel Sounds. absent: Distended, Firm, Guarding, Rigid, Tenderness, Organomegaly, Rebound - Rectal Exam Rectal Exam: Bloody Stool Additional comments: large fibrous clot protruding from rectal vault, patient beared down with pressure, clot expelled followed by 20-30cc of maroon blood - Extremities Exam Additional comments: B/L LE ischemic changes, dry heel ulcers, upper extremity digit ischemia - Neurological Exam Neurological Exam: Awake - Psychiatric Exam Additional comments: unable to assess, nonverbal - Skin Skin Exam: Dry, Warm Additional comments: B/L UE and LE ischemic changes notes Assessment and Plan - Assessment and Plan (Free Text) Assessment: 76 year old female with history of tracheostomy for ventilator dependent respiratory failure, ESRD on HD, CAD s/p CABG, CHF, caloric protein malnutrition previously on long-term NGT support (pulled on 11/05/16 by patient) , empyema antibiotic course completed 11/07/16, persistent hypovolemic shock requiring vasopressor support with confirmed ischemic colitis on flexible sigmoidoscopy showing diffuse rectosigmoid ulcerated mucosa and bleeding vessel proximal to dentate line s/p bipolar cautery and epinephrine injection. GI reconsultation for recurrent rectal bleeding since 11/04/16 s/p 6Units pRBCs (7/ 14-11/07). Remote history of EGD and colonoscopy over 30 years ago. Plan: >known ischemic colitis leading to ongoing risk of GI bleed >serial H/H >continue transfusion support >on PPI daily for stress ulcer prophylaxis >discussion held with daughter at bedside >patient high risk to undergo invasive surgical procedure >poor surgical candidate >poor prognosis >close monitoring of clinical course <Amol Woodall - Last Filed: 11/08/16 12:18> Objective - Vital Signs/Intake and Output Vital Signs (last 24 hours): Temp Pulse Resp BP Pulse Ox 98.6 F 79 12 100/40 L 100 11/08/16 08:00 11/08/16 11:00 11/08/16 11:00 11/08/16 10:32 11/08/16 11:00 Intake and Output: 11/08/16 11/08/16 06:59 18:59 Intake Total 1098.2 369.5 Balance 1098.2 369.5 - Medications Medications: Current Medications Acetaminophen (Tylenol 650mg/20.3ml Solution Ud) 650 mg PO Q6 PRN PRN Reason: Temperature Last Admin: 11/03/16 12:55 Dose: 650 mg Epoetin Sly (Procrit) 10,000 unit IV MWF [facility] Last Admin: 11/07/16 09:31 Dose: 10,000 unit Norepinephrine Bitartrate 8 mg (/ Dextrose) 258 mls @ 7.74 mls/hr IV .Q24H PRN ; Protocol; 4 MCG/MIN PRN Reason: TITRATE PER MD ORDER Last Titration: 11/08/16 05:24 Dose: 2 mcg/min, 3.87 mls/hr Dextrose (Dextrose 10% In Water) 1,000 mls @ 30 mls/hr IV .Q24H [facility] Last Admin: 11/08/16 08:20 Dose: 30 mls/hr Insulin Human Regular (Novolin R) 0 unit SC Q6 [facility] PRN Reason: Protocol Last Admin: 11/08/16 07:18 Dose: Not Given Levothyroxine Sodium (Levothyroxine) 150 mcg IVP DAILY [facility] Last Admin: 11/08/16 09:43 Dose: 150 mcg Pantoprazole Sodium (Protonix Inj) 40 mg IVP DAILY [facility] Last Admin: 11/08/16 09:42 Dose: 40 mg - Labs Labs: 11/08/16 06:35 11/08/16 06:35 PT 19.5 SECONDS (9.7-12.2) H 10/28/16 08:07 INR 1.7 10/28/16 08:07 APTT 49 SECONDS (21-34) H 10/25/16 16:33 Attending/Attestation - Attestation I have personally seen and examined this patient.: Yes I have fully participated in the care of the patient.: Yes I have reviewed all pertinent clinical information, including history, physical exam and plan: Yes Notes (Text): 11/07/16 17:00 76 year old female with ventilator dependent respiratory failure s/ tracheostomy , ESRD on HD, CAD s/p CABG, CHF, malnutrition, and empyema admitted with sepsis , also with rectal bleeding due to ischemic colitis. 1. Ischemic colitis 2. Jaundice Plan: -s/p sigmoidoscopy demonstrating severe rectal and recto-sigmoid ulceration with active diffuse oozing as well as one small visible vessel with active bleeding s/p epi/biopolar cautery -re-evaluated yesterday for recurrent bleeding -transfused 2 units, hgb 6->10, appropriate response, blood clots passed -no active bright red blood at this time -she is chronically hypotensive and requiring dialysis in the setting of cardiovascular disease -the rectal ulceration may not heal considering her overall poor condition/ nutritional state -treat supportively -recommend dobhoff placement and enteral nutrition -cholestasis may be due to sepsis, congestive hepatopathy, drug induced -avoid hepatotoxic medications -overall, prognosis is poor
[2016-11-07 14:55] LABS: BASO % 0.7 % (0.0-2.0); EOS # 0.1 K/uL (0.0-0.7); EOS % 0.4 % (0.0-4.0); HEMATOCRIT 31.3 % (34.0-47.0); LYMPH % 7.1 % (20.0-40.0); MEAN CORPUSCULAR HEMOGLOBIN 28.8 pg (27.0-31.0); MEAN CORPUSCULAR HGB CONC 33.5 g/dL (33.0-37.0); MONO % 7.2 % (0.0-10.0); PLATELET COUNT 53 K/uL (130-400); RED CELL DISTRIBUTION WIDTH 15.5 % (11.5-14.5); WHITE BLOOD COUNT 16.7 K/uL (4.8-10.8)
[2016-11-07 15:00] LABS: MEAN CELL VOLUME 86.1 fL (81.0-99.0)
[2016-11-07 15:43] LABS: NEUTROPHIL 83 % (50-75); TOTAL CELLS COUNTED 100
[2016-11-07 22:22] LABS: BASO # 0.1 K/uL (0.0-0.2); BASO % 1.1 % (0.0-2.0); EOS # 0.1 K/uL (0.0-0.7); EOS % 0.9 % (0.0-4.0); HEMATOCRIT 30.3 % (34.0-47.0); LYMPH # 1.4 K/uL (1.0-4.3); LYMPH % 12.7 % (20.0-40.0); MEAN CELL VOLUME 85.8 fL (81.0-99.0); MEAN CORPUSCULAR HEMOGLOBIN 29.7 pg (27.0-31.0); MEAN CORPUSCULAR HGB CONC 34.6 g/dL (33.0-37.0); MEAN PLATELET VOLUME 9.1 fL (7.2-11.7); MONO # 1.1 K/uL (0.0-0.8); MONO % 9.4 % (0.0-10.0); NRBC % 0.1 % (0.0-2.0); RED CELL DISTRIBUTION WIDTH 15.8 % (11.5-14.5); WHITE BLOOD COUNT 11.4 K/uL (4.8-10.8)
--- NOTE | 2016-11-07 23:07 | CP.PCM.PN ---
Subjective - Date & Time of Evaluation Date of Evaluation: 11/07/16 Time of Evaluation: 09:15 - Subjective Subjective: Patient seen and evaluated Clinically better No cardiac events Objective - Vital Signs/Intake and Output Vital Signs (last 24 hours): Temp Pulse Resp BP Pulse Ox 98.1 F 84 17 106/65 79 L 11/07/16 18:30 11/07/16 22:32 11/07/16 22:32 11/07/16 22:32 11/07/16 17:00 Intake and Output: 11/07/16 11/08/16 18:59 06:59 Intake Total 1857.2 46.8 Output Total 0 Balance 1857.2 46.8 - Medications Medications: Current Medications Acetaminophen (Tylenol 650mg/20.3ml Solution Ud) 650 mg PO Q6 PRN PRN Reason: Temperature Last Admin: 11/03/16 12:55 Dose: 650 mg Epoetin Sly (Procrit) 10,000 unit IV MWF [facility] Last Admin: 11/07/16 09:31 Dose: 10,000 unit Norepinephrine Bitartrate 8 mg (/ Dextrose) 258 mls @ 7.74 mls/hr IV .Q24H PRN ; Protocol; 4 MCG/MIN PRN Reason: TITRATE PER MD ORDER Last Titration: 11/07/16 22:04 Dose: 3 mcg/min, 5.8 mls/hr Dextrose (Dextrose 10% In Water) 1,000 mls @ 30 mls/hr IV .Q24H [facility] Last Admin: 11/07/16 18:52 Dose: 30 mls/hr Insulin Human Regular (Novolin R) 0 unit SC Q6 [facility] PRN Reason: Protocol Last Admin: 11/07/16 18:52 Dose: Not Given Levothyroxine Sodium (Synthroid) 150 mcg IVP DAILY [facility] Last Admin: 11/07/16 13:58 Dose: 150 mcg Pantoprazole Sodium (Protonix Inj) 40 mg IVP DAILY [facility] Last Admin: 11/07/16 13:57 Dose: 40 mg - Labs Labs: 11/07/16 22:17 11/07/16 06:11 PT 19.5 SECONDS (9.7-12.2) H 10/28/16 08:07 INR 1.7 10/28/16 08:07 APTT 49 SECONDS (21-34) H 10/25/16 16:33
[2016-11-08] MEDS: (Novolin R) Insulin Human Regular 100 units/ml vial SC SCH ×4 (01:11→18:09)
[2016-11-08 06:43] LABS: BASO # 0.1 K/uL (0.0-0.2); BASO % 0.8 % (0.0-2.0); EOS # 0.1 K/uL (0.0-0.7); EOS % 0.8 % (0.0-4.0); HEMATOCRIT 29.7 % (34.0-47.0); LYMPH # 1.1 K/uL (1.0-4.3); LYMPH % 10.9 % (20.0-40.0); MEAN CELL VOLUME 86.3 fL (81.0-99.0); MEAN CORPUSCULAR HEMOGLOBIN 29.7 pg (27.0-31.0); MEAN CORPUSCULAR HGB CONC 34.5 g/dL (33.0-37.0); MEAN PLATELET VOLUME 9.1 fL (7.2-11.7); MONO % 9.6 % (0.0-10.0); NRBC % 0.1 % (0.0-2.0); RED CELL DISTRIBUTION WIDTH 16.1 % (11.5-14.5); WHITE BLOOD COUNT 10.2 K/uL (4.8-10.8)
[2016-11-08 06:52] LABS: POTASSIUM 3.1 mmol/L (3.6-5.2)
[2016-11-08 06:54] LABS: ALB/GLOB RATIO 0.6 (1.0-2.1); BILIRUBIN,TOTAL 7.4 mg/dL (0.2-1.3); PHOSPHOROUS 3.1 mg/dL (2.5-4.5); TOTAL PROTEIN 6.4 g/dL (6.3-8.3)
[2016-11-08 06:55] LABS: MAGNESIUM 1.7 mg/dL (1.6-2.3)
--- NOTE | 2016-11-08 06:56 | CP.PCM.PN ---
<Angle Tomas - Last Filed: 11/08/16 08:58> Subjective - Date & Time of Evaluation Date of Evaluation: 11/08/16 Time of Evaluation: 06:53 - Subjective Subjective: Gastroenterology Fellow/PGY5 Progress Note ICU team notes one large maroon stool overnight mixed with diarrhea. Repeat blood count remained stable overnight. Levophed 2 mcg/kg/min. Patient pulled out [place] overnight. A 12-point review of systems unable to be completed with nonverbal state. Objective - Vital Signs/Intake and Output Vital Signs (last 24 hours): Temp Pulse Resp BP Pulse Ox 98.5 F 85 19 111/49 L 100 11/08/16 03:20 11/08/16 04:46 11/08/16 04:46 11/08/16 04:46 11/08/16 04:46 Intake and Output: 11/07/16 11/08/16 18:59 06:59 Intake Total 1857.2 1030.4 Output Total 0 Balance 1857.2 1030.4 - Medications Medications: Current Medications Acetaminophen (Tylenol 650mg/20.3ml Solution Ud) 650 mg PO Q6 PRN PRN Reason: Temperature Last Admin: 11/03/16 12:55 Dose: 650 mg Epoetin Sly (Procrit) 10,000 unit [place] [facility] [place] Admin: 11/07/16 09:31 Dose: 10,000 unit Norepinephrine Bitartrate 8 mg (/ Dextrose) 258 mls @ 7.74 mls/hr IV .Q24H PRN ; Protocol; 4 MCG/MIN PRN Reason: TITRATE PER MD ORDER Last Titration: 11/08/16 05:24 Dose: 2 mcg/min, 3.87 mls/hr Dextrose (Dextrose 10% In Water) 1,000 mls @ 30 mls/hr IV .Q24H [facility] Last Admin: 11/07/16 18:52 Dose: 30 mls/hr Insulin Human Regular (Novolin R) 0 unit SC Q6 [facility] PRN Reason: Protocol Last Admin: 11/08/16 01:11 Dose: Not Given Levothyroxine Sodium (Synthroid) 150 mcg IVP DAILY [facility] Last Admin: 11/07/16 13:58 Dose: 150 mcg Pantoprazole Sodium (Protonix Inj) 40 mg IVP DAILY [facility] Last Admin: 11/07/16 13:57 Dose: 40 mg - Labs Labs: 11/08/16 06:35 11/07/16 06:11 PT 19.5 SECONDS (9.7-12.2) H 10/28/16 08:07 INR 1.7 10/28/16 08:07 APTT 49 SECONDS (21-34) H 10/25/16 16:33 - Constitutional Appears: No Acute Distress, Chronically Ill - Head Exam Head Exam: ATRAUMATIC, NORMOCEPHALIC - Eye Exam Eye Exam: EOMI, PERRL Pupil Exam: PERRL. absent: Miosis, Mydriatic - ENT Exam ENT Exam: Mucous Membranes Dry, Normal Oropharynx - Neck Exam Neck Exam: Normal Inspection Additional comments: trach in place on ventilator support - Cardiovascular Exam Cardiovascular Exam: RRR, +S1, +S2. absent: Gallop, Rubs - GI/Abdominal Exam GI & Abdominal Exam: Soft, Normal Bowel Sounds. absent: Distended, Firm, Guarding, Rigid, Tenderness, Organomegaly, Rebound - Extremities Exam Extremities Exam: absent: Pedal Edema, Tenderness - Neurological Exam Neurological Exam: Awake - Psychiatric Exam Additional comments: unable to assess, nonverbal - Skin Skin Exam: Dry, Normal Color, Warm Additional comments: multiple heel dry ulcers and sacral wounds Assessment and Plan - Assessment and Plan (Free Text) Assessment: 76 year old female with history of tracheostomy for ventilator dependent respiratory failure, ESRD on HD, CAD s/p CABG, CHF, caloric protein malnutrition previously on long-term NGT support (pulled on 11/05/16 by patient) , empyema antibiotic course completed 11/07/16, persistent hypovolemic shock ( multifactorial) requiring vasopressor support with confirmed ischemic colitis on flexible sigmoidoscopy showing diffuse rectosigmoid ulcerated mucosa and bleeding vessel proximal to dentate line s/p bipolar cautery and epinephrine injection. GI re-consultation for recurrent rectal bleeding since 11/04/16 s/p 6 Units pRBCs (11/04-11/07). Remote history of EGD and colonoscopy over 30 years ago. Plan: >received FFP yesterday >serial H/H stable >continue transfusion support as needed >recommend nutritional support with NGT placement or IR guided PEG placement >on PPI daily for stress ulcer prophylaxis >patient high risk to undergo invasive surgical procedure, poor surgical candidate >will consider repeat flexible sigmoidoscopy if GI blood loss persists >poor prognosis <Maurisio Young - Last Filed: 11/08/16 14:23> Objective - Vital Signs/Intake and Output Vital Signs (last 24 hours): Temp Pulse Resp BP Pulse Ox 98.2 F 81 15 121/52 L 100 11/08/16 12:00 11/08/16 14:00 11/08/16 14:00 11/08/16 13:18 11/08/16 14:00 Intake and Output: 11/08/16 11/08/16 06:59 18:59 Intake Total 1098.2 437.3 Balance 1098.2 437.3 - Medications Medications: Current Medications Acetaminophen (Tylenol 650mg/20.3ml Solution Ud) 650 mg PO Q6 PRN PRN Reason: Temperature Last Admin: 11/03/16 12:55 Dose: 650 mg Epoetin Sly (Procrit) 10,000 unit [place] [facility] [place] Admin: 11/07/16 09:31 Dose: 10,000 unit Norepinephrine Bitartrate 8 mg (/ Dextrose) 258 mls @ 7.74 mls/hr IV .Q24H PRN ; Protocol; 4 MCG/MIN PRN Reason: TITRATE PER MD ORDER Last Titration: 11/08/16 05:24 Dose: 2 mcg/min, 3.87 mls/hr Dextrose (Dextrose 10% In Water) 1,000 mls @ 30 mls/hr IV .Q24H [facility] Last Admin: 11/08/16 08:20 Dose: 30 mls/hr Insulin Human Regular (Novolin R) 0 unit SC Q6 [facility] PRN Reason: Protocol Last Admin: 11/08/16 13:54 Dose: Not Given Levothyroxine Sodium (Levothyroxine) 150 mcg IVP DAILY [facility] Last Admin: 11/08/16 09:43 Dose: 150 mcg Pantoprazole Sodium (Protonix Inj) 40 mg IVP DAILY [facility] Last Admin: 11/08/16 09:42 Dose: 40 mg - Labs Labs: 11/08/16 06:35 11/08/16 06:35 PT 19.5 SECONDS (9.7-12.2) H 10/28/16 08:07 INR 1.7 10/28/16 08:07 APTT 49 SECONDS (21-34) H 10/25/16 16:33 Attending/Attestation - Attestation I have personally seen and examined this patient.: Yes I have fully participated in the care of the patient.: Yes I have reviewed all pertinent clinical information, including history, physical exam and plan: Yes Notes (Text): 11/08/16 14:19 I have seen and examined patient with GI fellow. She remains in ICU critical care on vasopressor support. As per nursing staff, patient had one episode of maroon colored stool overnight, none this morning thus far. There is no reported abdominal pain, nausea, vomiting. She self-removed NGT and is currently not receiving nutritional support. Review of vitals from today shows persistent hypotension. ESRD on HD CAD/CABG Respiratory failure, sepsis s/p tracheostomy Septic shock Rectal bleeding - ischemic colitis with actively bleeding vessel in rectum treated during recent sigmoidoscopy - H/H stable, continue to monitor and transfuse as necessary - Suggest addressing nutritional needs with IR evaluation for gastrostomy placement - Continue with PPI therapy - Will consider repeat endoscopic evaluation of rectal bleeding persists - Overall patient prognosis is quite poor, will continue to monitor patient clinical course
--- NOTE | 2016-11-08 08:21 | RAD ---
Chest x-ray single frontal view History: NG tube placement. Comparison: 11/04/2016 Findings: NG tube extending into the stomach. Tracheostomy tube projecting to the left of the midline trachea which may be related to patient rotation. Other lines and tubes stable position. Persistent moderate loculated right pleural effusion. Moderate venous congestion. Patchy bibasilar airspace opacities. Right peritracheal airspace opacity may represent prominent vasculature. Biapical pleural thickening with upper lobe granulomatous changes. Degenerative changes in the spine and shoulders. Question loose bodies at the left shoulder joint space. Impression: Persistent moderate loculated right pleural effusion. NG tube extending into the stomach.
--- NOTE | 2016-11-08 08:23 | RAD ---
Chest x-ray single frontal view History: NG tube placement. Comparison: 11/07/2016 Findings: NG tube extending into the stomach. Tracheostomy tube projecting to the left of midline, possibly related to patient rotation. Other lines and tubes in stable position. Persistent moderate loculated right pleural effusion. Patchy bibasilar airspace opacities. Biapical pleural thickening with upper lobe granulomatous changes. Calcification at the aortic knob. Status post median sternotomy and CABG. Degenerative changes in the spine and shoulders. Deformity of the right proximal humerus. Distended loops of bowel in the upper abdomen. Impression: NG tube extending into the stomach. Tracheostomy tube projecting to the left of midline, possibly related to patient rotation. Other lines and tubes in stable position. Persistent moderate loculated right pleural effusion. Patchy bibasilar airspace opacities. Biapical pleural thickening with upper lobe granulomatous changes. Calcification at the aortic knob. Status post median sternotomy and CABG. Degenerative changes in the spine and shoulders. Deformity of the right proximal humerus. Distended loops of bowel in the upper abdomen.
[2016-11-08] MEDS ORDERED: Potassium Chloride 10 mEq ER Tab PO SCH (09:30)
[2016-11-08] MEDS: Levothyroxine 200 mcg (0.2 mg) Inj IVP SCH (09:43)
--- NOTE | 2016-11-08 10:30 | CP.CCUPN ---
<Gretchen Brewer - Last Filed: 11/08/16 12:26> CCU Subjective - Physician Review Subjective (Free Text): Patient was seen and examined in the AM at bedside. Patient is non-verbal. Per nurse patient continues to have bloody stool over night. Patient continues to be on Norepinephrine for blood pressure. Patient removed the NGT overnight. 11/08/16 11:27 CCU Objective - Vital Signs / Intake & Output Vital Signs (Last 4 hours): Vital Signs Temp Pulse Resp BP Pulse Ox 11/08/16 09:00 79 14 100 11/08/16 08:18 83 14 110/46 L 100 11/08/16 08:00 98.6 F 81 16 100 11/08/16 07:18 81 20 107/43 L 100 11/08/16 07:00 82 16 100 Intake and Output (Last 8hrs): Intake & Output 11/07/16 11/08/16 11/08/16 22:59 06:59 14:59 Intake Total 751.6 909.0 101.7 Balance 751.6 909.0 101.7 Weight 125 lb 10.616 oz Intake: IV 176.8 40.6 Intake, IV Amount 574.8 281.4 101.7 Right Distal Port PICC 44.8 41.4 11.7 Right Proximal Port PICC 530 240 90 Blood Product 587 Apheresis Plts Acda Lr 289 2nd Con Unit [id number] Other: # Bowel Movements 1 1 - Physical Exam Head: Positive for: Atraumatic Extroacular Muscles: Positive for: EOMI Conjunctiva: Positive for: Icteric Mouth: Positive for: Dry Nose (Internal): Positive for: Other (NGT was pulled by patient ) Neck: Positive for: Other (trach in place) Respiratory/Chest: Positive for: Rhonchi. Negative for: Clear to Auscultation, Respiratory Distress, Accessory Muscle Use Cardiovascular: Positive for: Regular Rate and Rhythm, Normal S1, S2. Negative for: Murmurs, Tachycardic, Bradycardic Abdomen: Negative for: Peritoneal Signs, Hernias Rectal: Positive for: Gross Blood Upper Extremity: Positive for: Cyanosis, Temperature Abnormalties, Other (cold fingers, ischemic 3rd digit on left hand ). Negative for: NORMAL PULSES, Neurovascularly Intact, Capillary Refill < 2s Lower Extremity: Positive for: Edema Neurological: Negative for: GCS=15, Speech Normal Skin: Positive for: Cold (bilateral hands), Other (gangrenous fingertips). Negative for: Warm Psychiatric: Positive for: Other (comatose). Negative for: Alert, Oriented x 3 , Normal Insight, Normal Concentration - Medications Active Medications: Active Medications Generic Name Dose Route Start Last Admin Trade Name Freq PRN Reason Stop Dose Admin Acetaminophen 650 mg 11/03/16 12:38 11/03/16 12:55 Tylenol 650mg/20.3ml Solution Ud PO 650 mg Q6 PRN Administration Temperature Epoetin Sly 10,000 unit 11/02/16 09:30 11/07/16 09:31 Procrit IV 10,000 unit MWF REKHA Administration Norepinephrine Bitartrate 8 mg 258 mls @ 7.74 mls/hr 11/02/16 10:44 11/08/16 05:24 / Dextrose IV 2 mcg/min .Q24H PRN 3.87 mls/hr TITRATE PER MD ORDER Titration Protocol 4 MCG/MIN Dextrose 1,000 mls @ 30 mls/hr 11/05/16 18:00 11/08/16 08:20 Dextrose 10% In Water IV 30 mls/hr .Q24H REKHA Administration Insulin Human Regular 0 unit 10/26/16 06:00 11/08/16 07:18 Novolin R SC Not Given Q6 REKHA Protocol Levothyroxine Sodium 150 mcg 11/08/16 10:00 11/08/16 09:43 Levothyroxine IVP 150 mcg DAILY REKHA Administration Pantoprazole Sodium 40 mg 11/05/16 11:15 11/08/16 09:42 Protonix Inj IVP 40 mg DAILY REKHA Administration - Patient Studies Lab Studies: Microbiology Studies 11/03/16 09:00 Blood Culture - Final Blood-Thru Central Line NO GROWTH AFTER 5 DAYS Gram Stain - Final TEST NOT PERFORMED 11/03/16 08:45 Blood Culture - Final Blood-Thru Central Line NO GROWTH AFTER 5 DAYS Gram Stain - Final TEST NOT PERFORMED Lab Studies 11/08/16 11/08/16 11/08/16 Range/Units 06:35 06:35 00:28 WBC 10.2 (4.8-10.8) K/uL RBC 3.44 L (3.80-5.20) Mil/uL Hgb 10.2 L (11.0-16.0) g/dL Hct 29.7 L (34.0-47.0) % MCV 86.3 (81.0-99.0) fL MCH 29.7 (27.0-31.0) pg MCHC 34.5 (33.0-37.0) g/dL RDW 16.1 H (11.5-14.5) % Plt Count 100 L D (130-400) K/uL MPV 9.1 (7.2-11.7) fL Neut % (Auto) 77.9 H (50.0-75.0) % Lymph % (Auto) 10.9 L (20.0-40.0) % [place] % (Auto) 9.6 (0.0-10.0) % Eos % (Auto) 0.8 (0.0-4.0) % Baso % (Auto) 0.8 (0.0-2.0) % Neut # 7.9 H (1.8-7.0) K/uL Lymph # 1.1 (1.0-4.3) K/uL [place] # 1.0 H (0.0-0.8) K/uL Eos # 0.1 (0.0-0.7) K/uL Baso # 0.1 (0.0-0.2) K/uL Neutrophils % (Manual) (50-75) % Band Neutrophils % (0-2) % Lymphocytes % (Manual) (20-40) % Monocytes % (Manual) (0-10) % Platelet Estimate (NORMAL) Hypochromasia (manual) Poikilocytosis (manual Anisocytosis (manual) Microcytosis (manual) Macrocytosis (manual) Target Cells Sodium 133 (132-148) mmol/L Potassium 3.1 L (3.6-5.2) mmol/L Chloride 94 L (98-107) mmol/L Carbon Dioxide 27 (22-30) mmol/L Anion Gap 15 (10-20) BUN 21 H (7-17) mg/dL Creatinine 1.4 H (0.7-1.2) MG/DL Est GFR ( Amer) 44 Est GFR (Non-Af Amer) 37 POC Glucose (mg/dL) 180 H (65-110) mg/dL Random Glucose 165 H (65-105) mg/dL Calcium 8.0 L (8.6-10.4) mg/dl Phosphorus 3.1 (2.5-4.5) mg/dL Magnesium 1.7 (1.6-2.3) mg/dL Total Bilirubin 7.4 H (0.2-1.3) mg/dL AST 42 H (14-36) U/L ALT 30 (9-52) U/L Alkaline Phosphatase 244 H D (38-126) U/L Total Protein 6.4 (6.3-8.3) g/dL Albumin 2.4 L D (3.5-5.0) g/dL Globulin 4.0 H (2.2-3.9) gm/dL Albumin/Globulin Ratio 0.6 L (1.0-2.1) Blood Type Antibody Screen 11/07/16 11/07/16 11/07/16 Range/Units 22:17 17:47 14:47 WBC 11.4 H 16.7 H (4.8-10.8) K/uL RBC 3.53 L 3.63 L (3.80-5.20) Mil/uL Hgb 10.5 L 10.5 L D (11.0-16.0) g/dL Hct 30.3 L 31.3 L (34.0-47.0) % MCV 85.8 86.1 D (81.0-99.0) fL MCH 29.7 28.8 (27.0-31.0) pg MCHC 34.6 33.5 (33.0-37.0) g/dL RDW 15.8 H 15.5 H (11.5-14.5) % Plt Count 50 L 53 L (130-400) K/uL MPV 9.1 9.7 (7.2-11.7) fL Neut % (Auto) 75.9 H 84.6 H (50.0-75.0) % Lymph % (Auto) 12.7 L 7.1 L (20.0-40.0) % [place] % (Auto) 9.4 7.2 (0.0-10.0) % Eos % (Auto) 0.9 0.4 (0.0-4.0) % Baso % (Auto) 1.1 0.7 (0.0-2.0) % Neut # 8.7 H 14.2 H (1.8-7.0) K/uL Lymph # 1.4 1.2 (1.0-4.3) K/uL [place] # 1.1 H 1.2 H (0.0-0.8) K/uL Eos # 0.1 0.1 (0.0-0.7) K/uL Baso # 0.1 0.1 (0.0-0.2) K/uL Neutrophils % (Manual) 83 H (50-75) % Band Neutrophils % 1 (0-2) % Lymphocytes % (Manual) 11 L (20-40) % Monocytes % (Manual) 5 (0-10) % Platelet Estimate Decreased L (NORMAL) Hypochromasia (manual) Slight Poikilocytosis (manual Slight Anisocytosis (manual) Slight Microcytosis (manual) Slight Macrocytosis (manual) Slight Target Cells Slight Sodium (132-148) mmol/L Potassium (3.6-5.2) mmol/L Chloride (98-107) mmol/L Carbon Dioxide (22-30) mmol/L Anion Gap (10-20) BUN (7-17) mg/dL Creatinine (0.7-1.2) MG/DL Est GFR ( Amer) Est GFR (Non-Af Amer) POC Glucose (mg/dL) 214 H (65-110) mg/dL Random Glucose (65-105) mg/dL Calcium (8.6-10.4) mg/dl Phosphorus (2.5-4.5) mg/dL Magnesium (1.6-2.3) mg/dL Total Bilirubin (0.2-1.3) mg/dL AST (14-36) U/L ALT (9-52) U/L Alkaline Phosphatase (38-126) U/L Total Protein (6.3-8.3) g/dL Albumin (3.5-5.0) g/dL Globulin (2.2-3.9) gm/dL Albumin/Globulin Ratio (1.0-2.1) Blood Type Antibody Screen 11/07/16 11/07/16 Range/Units 12:03 09:18 WBC (4.8-10.8) K/uL RBC (3.80-5.20) Mil/uL Hgb (11.0-16.0) g/dL Hct (34.0-47.0) % MCV (81.0-99.0) fL MCH (27.0-31.0) pg MCHC (33.0-37.0) g/dL RDW (11.5-14.5) % Plt Count (130-400) K/uL MPV (7.2-11.7) fL Neut % (Auto) (50.0-75.0) % Lymph % (Auto) (20.0-40.0) % [place] % (Auto) (0.0-10.0) % Eos % (Auto) (0.0-4.0) % Baso % (Auto) (0.0-2.0) % Neut # (1.8-7.0) K/uL Lymph # (1.0-4.3) K/uL [place] # (0.0-0.8) K/uL Eos # (0.0-0.7) K/uL Baso # (0.0-0.2) K/uL Neutrophils % (Manual) (50-75) % Band Neutrophils % (0-2) % Lymphocytes % (Manual) (20-40) % Monocytes % (Manual) (0-10) % Platelet Estimate (NORMAL) Hypochromasia (manual) Poikilocytosis (manual Anisocytosis (manual) Microcytosis (manual) Macrocytosis (manual) Target Cells Sodium (132-148) mmol/L Potassium (3.6-5.2) mmol/L Chloride (98-107) mmol/L Carbon Dioxide (22-30) mmol/L Anion Gap (10-20) BUN (7-17) mg/dL Creatinine (0.7-1.2) MG/DL Est GFR ( Amer) Est GFR (Non-Af Amer) POC Glucose (mg/dL) 149 H (65-110) mg/dL Random Glucose (65-105) mg/dL Calcium (8.6-10.4) mg/dl Phosphorus (2.5-4.5) mg/dL Magnesium (1.6-2.3) mg/dL Total Bilirubin (0.2-1.3) mg/dL AST (14-36) U/L ALT (9-52) U/L Alkaline Phosphatase (38-126) U/L Total Protein (6.3-8.3) g/dL Albumin (3.5-5.0) g/dL Globulin (2.2-3.9) gm/dL Albumin/Globulin Ratio (1.0-2.1) Blood Type B POSITIVE Antibody Screen Negative Laboratory Results - last 24 hr 11/07/16 11/07/16 11/07/16 09:18 12:03 14:47 WBC 16.7 H RBC 3.63 L Hgb 10.5 L D Hct 31.3 L MCV 86.1 D MCH 28.8 MCHC 33.5 RDW 15.5 H Plt Count 53 L MPV 9.7 Neut % (Auto) 84.6 H Lymph % (Auto) 7.1 L [place] % (Auto) 7.2 Eos % (Auto) 0.4 Baso % (Auto) 0.7 Neut # 14.2 H Lymph # 1.2 [place] # 1.2 H Eos # 0.1 Baso # 0.1 Neutrophils % (Manual) 83 H Band Neutrophils % 1 Lymphocytes % (Manual) 11 L Monocytes % (Manual) 5 Platelet Estimate Decreased L Hypochromasia (manual) Slight Poikilocytosis (manual Slight Anisocytosis (manual) Slight Microcytosis (manual) Slight Macrocytosis (manual) Slight Target Cells Slight Sodium Potassium Chloride Carbon Dioxide Anion Gap BUN Creatinine Est GFR ( Amer) Est GFR (Non-Af Amer) POC Glucose (mg/dL) 149 H Random Glucose Calcium Phosphorus Magnesium Total Bilirubin AST ALT Alkaline Phosphatase Total Protein Albumin Globulin Albumin/Globulin Ratio Blood Type B POSITIVE Antibody Screen Negative 11/07/16 11/07/16 11/08/16 17:47 22:17 00:28 WBC 11.4 H RBC 3.53 L Hgb 10.5 L Hct 30.3 L MCV 85.8 MCH 29.7 MCHC 34.6 RDW 15.8 H Plt Count 50 L MPV 9.1 Neut % (Auto) 75.9 H Lymph % (Auto) 12.7 L [place] % (Auto) 9.4 Eos % (Auto) 0.9 Baso % (Auto) 1.1 Neut # 8.7 H Lymph # 1.4 [place] # 1.1 H Eos # 0.1 Baso # 0.1 Neutrophils % (Manual) Band Neutrophils % Lymphocytes % (Manual) Monocytes % (Manual) Platelet Estimate Hypochromasia (manual) Poikilocytosis (manual Anisocytosis (manual) Microcytosis (manual) Macrocytosis (manual) Target Cells Sodium Potassium Chloride Carbon Dioxide Anion Gap BUN Creatinine Est GFR ( Amer) Est GFR (Non-Af Amer) POC Glucose (mg/dL) 214 H 180 H Random Glucose Calcium Phosphorus Magnesium Total Bilirubin AST ALT Alkaline Phosphatase Total Protein Albumin Globulin Albumin/Globulin Ratio Blood Type Antibody Screen 11/08/16 11/08/16 06:35 06:35 WBC 10.2 RBC 3.44 L Hgb 10.2 L Hct 29.7 L MCV 86.3 MCH 29.7 MCHC 34.5 RDW 16.1 H Plt Count 100 L D MPV 9.1 Neut % (Auto) 77.9 H Lymph % (Auto) 10.9 L [place] % (Auto) 9.6 Eos % (Auto) 0.8 Baso % (Auto) 0.8 Neut # 7.9 H Lymph # 1.1 [place] # 1.0 H Eos # 0.1 Baso # 0.1 Neutrophils % (Manual) Band Neutrophils % Lymphocytes % (Manual) Monocytes % (Manual) Platelet Estimate Hypochromasia (manual) Poikilocytosis (manual Anisocytosis (manual) Microcytosis (manual) Macrocytosis (manual) Target Cells Sodium 133 Potassium 3.1 L Chloride 94 L Carbon Dioxide 27 Anion Gap 15 BUN 21 H Creatinine 1.4 H Est GFR ( Amer) 44 Est GFR (Non-Af Amer) 37 POC Glucose (mg/dL) Random Glucose 165 H Calcium 8.0 L Phosphorus 3.1 Magnesium 1.7 Total Bilirubin 7.4 H AST 42 H ALT 30 Alkaline Phosphatase 244 H D Total Protein 6.4 Albumin 2.4 L D Globulin 4.0 H Albumin/Globulin Ratio 0.6 L Blood Type Antibody Screen Fingerstick Blood Sugar Results: 165 Review of Systems - Review of Systems Systems not reviewed;Unavailable: Altered Mental Status Assessment/Plan - Assessment and Plan (Free Text) Assessment: 76F admitted for GI bleed; s/p flexible sigmoidoscopy and multiple transfusions. Plan: Neuro: - GCS 9T - at baseline likely 2/2 metabolic encephalopathy - Patient in non-verbal Pulm: - Chronic Respiratory failure - Trach on vent -CT chest shows b/l pleural effusions R>L with subsegmental atelectasis CV: - Septic Shock - BP mildly improved - systolic now 100-110s - Norepinephrine 2 mcg/kg/min - Tylenol 650mg IV - Dr Long on board. Pt high risk for any procedure but can proceed if clinical indicated - Left hand with ischemic necrosis - consult placed for vasc Dr Buck - likely nothing to do Heme: - Anemia of Chronic Disease and critical illness - H/H (11/08): 10.2/29.7; H/H (11/07): 6.3/19.2 - Patient received 2 units and 1 unit of FFP (11/07) - will cont to monitor H/H and for rectal bleed Renal: - ESRD - HD as per Dr Mcfarland - Dr Trent on consult --> help appreciated Endo: -Insulin sliding scale - patient's daughter refuses insulin GI: - - CT shows significant colitis at rectosigmoid junction - Ischemic colitis with hemorrhage, not a candidate for intervention as this would be medically futile. - Flexible sigmoidoscopy at bedside 10/28/16 shows ischemic colitis - Fam declined sx - NGT removed 11/05/16 per patient's daughter request - NGT was replaced 11/07 - Patient pulled out the Dubhoff tube overnight - Protonix drip for GI bleed - GI Consult: Dr. Young --> help appreciated ID: - Septic Shock - Meropenem was discontinued 11/07 (patient received a 13 day course) Pt chronically ill, prognosis very poor DVT proph - SCDs, no anti-coagulation due to acute bleed GI proph - Protonix 40mg IVP daily Code status - Full Case discussed with Dr. Yordy Brewer PGY-1 <Jonatan Scales - Last Filed: 11/08/16 17:46> CCU Objective - Vital Signs / Intake & Output Vital Signs (Last 4 hours): Vital Signs Temp Pulse Resp BP Pulse Ox 11/08/16 17:18 71 8 L 94/56 L 100 11/08/16 17:00 71 12 100 11/08/16 16:18 72 10 L 86/34 L 100 11/08/16 16:00 98.2 F 70 11 L 100 11/08/16 15:18 76 9 L 93/36 L 99 11/08/16 15:00 78 100 11/08/16 14:18 80 13 107/55 L 100 11/08/16 14:00 81 15 100 Intake and Output (Last 8hrs): Intake & Output 11/08/16 11/08/16 11/08/16 06:59 14:59 22:59 Intake Total 909.0 437.3 90 Balance 909.0 437.3 90 Weight 125 lb 10.616 oz Intake: IV 40.6 Intake, IV Amount 281.4 437.3 90 Right Distal Port PICC 41.4 27.3 Right PICC 200 Right Proximal Port PICC 240 210 90 Blood Product 587 Apheresis Plts Acda Lr 289 2nd Con Unit [id number] Other: # Bowel Movements 1 1 1 - Medications Active Medications: Active Medications Generic Name Dose Route Start Last Admin Trade Name Freq PRN Reason Stop Dose Admin Acetaminophen 650 mg 11/03/16 12:38 11/03/16 12:55 Tylenol 650mg/20.3ml Solution Ud PO 650 mg Q6 PRN Administration Temperature Epoetin Sly 10,000 unit 11/02/16 09:30 11/07/16 09:31 Procrit IV 10,000 unit MWF REKHA Administration Norepinephrine Bitartrate 8 mg 258 mls @ 7.74 mls/hr 11/02/16 10:44 11/08/16 05:24 / Dextrose IV 2 mcg/min .Q24H PRN 3.87 mls/hr TITRATE PER MD ORDER Titration Protocol 4 MCG/MIN Dextrose 1,000 mls @ 30 mls/hr 11/05/16 18:00 11/08/16 08:20 Dextrose 10% In Water IV 30 mls/hr .Q24H REKHA Administration Insulin Human Regular 0 unit 10/26/16 06:00 11/08/16 13:54 Novolin R SC Not Given Q6 REKHA Protocol Levothyroxine Sodium 150 mcg 11/08/16 10:00 11/08/16 09:43 Levothyroxine IVP 150 mcg DAILY REKHA Administration Pantoprazole Sodium 40 mg 11/05/16 11:15 11/08/16 09:42 Protonix Inj IVP 40 mg DAILY REKHA Administration - Patient Studies Lab Studies: Microbiology Studies 11/03/16 09:00 Blood Culture - Final Blood-Thru Central Line NO GROWTH AFTER 5 DAYS Gram Stain - Final TEST NOT PERFORMED 11/03/16 08:45 Blood Culture - Final Blood-Thru Central Line NO GROWTH AFTER 5 DAYS Gram Stain - Final TEST NOT PERFORMED Lab Studies 11/08/16 11/08/16 11/08/16 Range/Units 17:40 11:14 06:35 WBC (4.8-10.8) K/uL RBC (3.80-5.20) Mil/uL Hgb (11.0-16.0) g/dL Hct (34.0-47.0) % MCV (81.0-99.0) fL MCH (27.0-31.0) pg MCHC (33.0-37.0) g/dL RDW (11.5-14.5) % Plt Count (130-400) K/uL MPV (7.2-11.7) fL Neut % (Auto) (50.0-75.0) % Lymph % (Auto) (20.0-40.0) % [place] % (Auto) (0.0-10.0) % Eos % (Auto) (0.0-4.0) % Baso % (Auto) (0.0-2.0) % Neut # (1.8-7.0) K/uL Lymph # (1.0-4.3) K/uL [place] # (0.0-0.8) K/uL Eos # (0.0-0.7) K/uL Baso # (0.0-0.2) K/uL Sodium 133 (132-148) mmol/L Potassium 3.1 L (3.6-5.2) mmol/L Chloride 94 L (98-107) mmol/L Carbon Dioxide 27 (22-30) mmol/L Anion Gap 15 (10-20) BUN 21 H (7-17) mg/dL Creatinine 1.4 H (0.7-1.2) MG/DL Est GFR ( Amer) 44 Est GFR (Non-Af Amer) 37 POC Glucose (mg/dL) 148 H 143 H (65-110) mg/dL Random Glucose 165 H (65-105) mg/dL Calcium 8.0 L (8.6-10.4) mg/dl Phosphorus 3.1 (2.5-4.5) mg/dL Magnesium 1.7 (1.6-2.3) mg/dL Total Bilirubin 7.4 H (0.2-1.3) mg/dL AST 42 H (14-36) U/L ALT 30 (9-52) U/L Alkaline Phosphatase 244 H D (38-126) U/L Total Protein 6.4 (6.3-8.3) g/dL Albumin 2.4 L D (3.5-5.0) g/dL Globulin 4.0 H (2.2-3.9) gm/dL Albumin/Globulin Ratio 0.6 L (1.0-2.1) Blood Type Antibody Screen 11/08/16 11/08/16 11/07/16 Range/Units 06:35 00:28 22:17 WBC 10.2 11.4 H (4.8-10.8) K/uL RBC 3.44 L 3.53 L (3.80-5.20) Mil/uL Hgb 10.2 L 10.5 L (11.0-16.0) g/dL Hct 29.7 L 30.3 L (34.0-47.0) % MCV 86.3 85.8 (81.0-99.0) fL MCH 29.7 29.7 (27.0-31.0) pg MCHC 34.5 34.6 (33.0-37.0) g/dL RDW 16.1 H 15.8 H (11.5-14.5) % Plt Count 100 L D 50 L (130-400) K/uL MPV 9.1 9.1 (7.2-11.7) fL Neut % (Auto) 77.9 H 75.9 H (50.0-75.0) % Lymph % (Auto) 10.9 L 12.7 L (20.0-40.0) % [place] % (Auto) 9.6 9.4 (0.0-10.0) % Eos % (Auto) 0.8 0.9 (0.0-4.0) % Baso % (Auto) 0.8 1.1 (0.0-2.0) % Neut # 7.9 H 8.7 H (1.8-7.0) K/uL Lymph # 1.1 1.4 (1.0-4.3) K/uL [place] # 1.0 H 1.1 H (0.0-0.8) K/uL Eos # 0.1 0.1 (0.0-0.7) K/uL Baso # 0.1 0.1 (0.0-0.2) K/uL Sodium (132-148) mmol/L Potassium (3.6-5.2) mmol/L Chloride (98-107) mmol/L Carbon Dioxide (22-30) mmol/L Anion Gap (10-20) BUN (7-17) mg/dL Creatinine (0.7-1.2) MG/DL Est GFR ( Amer) Est GFR (Non-Af Amer) POC Glucose (mg/dL) 180 H (65-110) mg/dL Random Glucose (65-105) mg/dL Calcium (8.6-10.4) mg/dl Phosphorus (2.5-4.5) mg/dL Magnesium (1.6-2.3) mg/dL Total Bilirubin (0.2-1.3) mg/dL AST (14-36) U/L ALT (9-52) U/L Alkaline Phosphatase (38-126) U/L Total Protein (6.3-8.3) g/dL Albumin (3.5-5.0) g/dL Globulin (2.2-3.9) gm/dL Albumin/Globulin Ratio (1.0-2.1) Blood Type Antibody Screen 11/07/16 11/07/16 Range/Units 17:47 09:18 WBC (4.8-10.8) K/uL RBC (3.80-5.20) Mil/uL Hgb (11.0-16.0) g/dL Hct (34.0-47.0) % MCV (81.0-99.0) fL MCH (27.0-31.0) pg MCHC (33.0-37.0) g/dL RDW (11.5-14.5) % Plt Count (130-400) K/uL MPV (7.2-11.7) fL Neut % (Auto) (50.0-75.0) % Lymph % (Auto) (20.0-40.0) % [place] % (Auto) (0.0-10.0) % Eos % (Auto) (0.0-4.0) % Baso % (Auto) (0.0-2.0) % Neut # (1.8-7.0) K/uL Lymph # (1.0-4.3) K/uL [place] # (0.0-0.8) K/uL Eos # (0.0-0.7) K/uL Baso # (0.0-0.2) K/uL Sodium (132-148) mmol/L Potassium (3.6-5.2) mmol/L Chloride (98-107) mmol/L Carbon Dioxide (22-30) mmol/L Anion Gap (10-20) BUN (7-17) mg/dL Creatinine (0.7-1.2) MG/DL Est GFR ( Amer) Est GFR (Non-Af Amer) POC Glucose (mg/dL) 214 H (65-110) mg/dL Random Glucose (65-105) mg/dL Calcium (8.6-10.4) mg/dl Phosphorus (2.5-4.5) mg/dL Magnesium (1.6-2.3) mg/dL Total Bilirubin (0.2-1.3) mg/dL AST (14-36) U/L ALT (9-52) U/L Alkaline Phosphatase (38-126) U/L Total Protein (6.3-8.3) g/dL Albumin (3.5-5.0) g/dL Globulin (2.2-3.9) gm/dL Albumin/Globulin Ratio (1.0-2.1) Blood Type B POSITIVE Antibody Screen Negative Laboratory Results - last 24 hr 11/07/16 11/07/16 11/07/16 09:18 17:47 22:17 WBC 11.4 H RBC 3.53 L Hgb 10.5 L Hct 30.3 L MCV 85.8 MCH 29.7 MCHC 34.6 RDW 15.8 H Plt Count 50 L MPV 9.1 Neut % (Auto) 75.9 H Lymph % (Auto) 12.7 L [place] % (Auto) 9.4 Eos % (Auto) 0.9 Baso % (Auto) 1.1 Neut # 8.7 H Lymph # 1.4 [place] # 1.1 H Eos # 0.1 Baso # 0.1 Sodium Potassium Chloride Carbon Dioxide Anion Gap BUN Creatinine Est GFR ( Amer) Est GFR (Non-Af Amer) POC Glucose (mg/dL) 214 H Random Glucose Calcium Phosphorus Magnesium Total Bilirubin AST ALT Alkaline Phosphatase Total Protein Albumin Globulin Albumin/Globulin Ratio Blood Type B POSITIVE Antibody Screen Negative 11/08/16 11/08/16 11/08/16 00:28 06:35 06:35 WBC 10.2 RBC 3.44 L Hgb 10.2 L Hct 29.7 L MCV 86.3 MCH 29.7 MCHC 34.5 RDW 16.1 H Plt Count 100 L D MPV 9.1 Neut % (Auto) 77.9 H Lymph % (Auto) 10.9 L [place] % (Auto) 9.6 Eos % (Auto) 0.8 Baso % (Auto) 0.8 Neut # 7.9 H Lymph # 1.1 [place] # 1.0 H Eos # 0.1 Baso # 0.1 Sodium 133 Potassium 3.1 L Chloride 94 L Carbon Dioxide 27 Anion Gap 15 BUN 21 H Creatinine 1.4 H Est GFR ( Amer) 44 Est GFR (Non-Af Amer) 37 POC Glucose (mg/dL) 180 H Random Glucose 165 H Calcium 8.0 L Phosphorus 3.1 Magnesium 1.7 Total Bilirubin 7.4 H AST 42 H ALT 30 Alkaline Phosphatase 244 H D Total Protein 6.4 Albumin 2.4 L D Globulin 4.0 H Albumin/Globulin Ratio 0.6 L Blood Type Antibody Screen 11/08/16 11/08/16 11:14 17:40 WBC RBC Hgb Hct MCV MCH MCHC RDW Plt Count MPV Neut % (Auto) Lymph % (Auto) [place] % (Auto) Eos % (Auto) Baso % (Auto) Neut # Lymph # [place] # Eos # Baso # Sodium Potassium Chloride Carbon Dioxide Anion Gap BUN Creatinine Est GFR ( Amer) Est GFR (Non-Af Amer) POC Glucose (mg/dL) 143 H 148 H Random Glucose Calcium Phosphorus Magnesium Total Bilirubin AST ALT Alkaline Phosphatase Total Protein Albumin Globulin Albumin/Globulin Ratio Blood Type Antibody Screen Assessment/Plan (1) Lower GI bleed Current Visit: Yes Status: Acute (2) ESRD (end stage renal disease) on dialysis Current Visit: No Status: Chronic Attending/Attestation - Attestation I have personally seen and examined this patient.: Yes I have fully participated in the care of the patient.: Yes I have reviewed all pertinent clinical information: Yes Notes (Text): 11/08/16 17:45 Patient seen and examined in the intensive care unit. Case discussed with house staff in the morning rounds. Continue to have rectal bleeding On ventilatory support On low-dose pressors Prognosis poor
--- NOTE | 2016-11-08 11:57 | CP.PCM.PN ---
Subjective - Date & Time of Evaluation Date of Evaluation: 11/08/16 Time of Evaluation: 11:56 - Subjective Subjective: seen and examined hd yesterday hgb stable non verbal. arousable Objective - Vital Signs/Intake and Output Vital Signs (last 24 hours): Temp Pulse Resp BP Pulse Ox 98.6 F 79 12 100/40 L 100 11/08/16 08:00 11/08/16 11:00 11/08/16 11:00 11/08/16 10:32 11/08/16 11:00 Intake and Output: 11/08/16 11/08/16 06:59 18:59 Intake Total 1098.2 369.5 Balance 1098.2 369.5 - Medications Medications: Current Medications Acetaminophen (Tylenol 650mg/20.3ml Solution Ud) 650 mg PO Q6 PRN PRN Reason: Temperature Last Admin: 11/03/16 12:55 Dose: 650 mg Epoetin Sly (Procrit) 10,000 unit IV [facility] [place] Last Admin: 11/07/16 09:31 Dose: 10,000 unit Norepinephrine Bitartrate 8 mg (/ Dextrose) 258 mls @ 7.74 mls/hr IV .Q24H PRN ; Protocol; 4 MCG/MIN PRN Reason: TITRATE PER MD ORDER Last Titration: 11/08/16 05:24 Dose: 2 mcg/min, 3.87 mls/hr Dextrose (Dextrose 10% In Water) 1,000 mls @ 30 mls/hr IV .Q24H [facility] Last Admin: 11/08/16 08:20 Dose: 30 mls/hr Insulin Human Regular (Novolin R) 0 unit SC Q6 REKHA PRN Reason: Protocol Last Admin: 11/08/16 07:18 Dose: Not Given Levothyroxine Sodium (Levothyroxine) 150 mcg IVP DAILY [facility] Last Admin: 11/08/16 09:43 Dose: 150 mcg Pantoprazole Sodium (Protonix Inj) 40 mg IVP DAILY [facility] Last Admin: 11/08/16 09:42 Dose: 40 mg - Labs Labs: 11/08/16 06:35 11/08/16 06:35 PT 19.5 SECONDS (9.7-12.2) H 10/28/16 08:07 INR 1.7 10/28/16 08:07 APTT 49 SECONDS (21-34) H 10/25/16 16:33 - Constitutional Appears: Cachectic, Chronically Ill - Head Exam Head Exam: NORMAL INSPECTION - Eye Exam Eye Exam: Normal appearance - ENT Exam ENT Exam: Mucous Membranes Dry - Neck Exam Neck Exam: Normal Inspection - Respiratory Exam Respiratory Exam: Decreased Breath Sounds, NORMAL BREATHING PATTERN - Cardiovascular Exam Cardiovascular Exam: REGULAR RHYTHM - GI/Abdominal Exam GI & Abdominal Exam: Distended, Soft, Hypoactive Bowel Sounds - Extremities Exam Extremities Exam: Pedal Edema Assessment and Plan (1) Lower GI bleed Status: Acute (2) Diabetes mellitus Status: Acute (3) CHF (congestive heart failure) Status: Chronic (4) ESRD (end stage renal disease) on dialysis Status: Chronic - Assessment and Plan (Free Text) Assessment: maintain hd mwf watch hgb, no heparin supportive care poor prognosis, consider palliative care
--- NOTE | 2016-11-08 22:54 | CP.PCM.PN ---
Subjective - Date & Time of Evaluation Date of Evaluation: 11/08/16 Time of Evaluation: 10:10 - Subjective Subjective: Patient seen and evaluated Not in distress and comfortable Objective - Vital Signs/Intake and Output Vital Signs (last 24 hours): Temp Pulse Resp BP Pulse Ox 98 F 82 14 89/40 L 100 11/08/16 20:00 11/08/16 22:20 11/08/16 22:20 11/08/16 22:20 11/08/16 22:20 Intake and Output: 11/08/16 11/09/16 18:59 06:59 Intake Total 557.3 120 Balance 557.3 120 - Medications Medications: Current Medications Acetaminophen (Tylenol 650mg/20.3ml Solution Ud) 650 mg PO Q6 PRN PRN Reason: Temperature Last Admin: 11/03/16 12:55 Dose: 650 mg Epoetin Sly (Procrit) 10,000 unit IV MWF [facility] Last Admin: 11/07/16 09:31 Dose: 10,000 unit Norepinephrine Bitartrate 8 mg (/ Dextrose) 258 mls @ 7.74 mls/hr IV .Q24H PRN ; Protocol; 4 MCG/MIN PRN Reason: TITRATE PER MD ORDER Last Titration: 11/08/16 05:24 Dose: 2 mcg/min, 3.87 mls/hr Dextrose (Dextrose 10% In Water) 1,000 mls @ 30 mls/hr IV .Q24H [facility] Last Admin: 11/08/16 19:18 Dose: Not Given Insulin Human Regular (Novolin R) 0 unit SC Q6 [facility] PRN Reason: Protocol Last Admin: 11/08/16 18:09 Dose: Not Given Levothyroxine Sodium (Levothyroxine) 150 mcg IVP DAILY [facility] Last Admin: 11/08/16 09:43 Dose: 150 mcg Pantoprazole Sodium (Protonix Inj) 40 mg IVP DAILY [facility] Last Admin: 11/08/16 09:42 Dose: 40 mg - Labs Labs: 11/08/16 06:35 11/08/16 06:35 PT 19.5 SECONDS (9.7-12.2) H 10/28/16 08:07 INR 1.7 10/28/16 08:07 APTT 49 SECONDS (21-34) H 10/25/16 16:33
[2016-11-09] MEDS: (Novolin R) Insulin Human Regular 100 units/ml vial SC SCH ×4 (00:05→18:00)
--- NOTE | 2016-11-09 06:39 | CP.PCM.PN ---
<Angle Tomas - Last Filed: 11/09/16 07:40> Subjective - Date & Time of Evaluation Date of Evaluation: 11/09/16 Time of Evaluation: 06:37 - Subjective Subjective: Gastroenterology Fellow/PGY5 Progress Note Patient resting comfortably. Nursing notes one loose brown stool overnight without melena or hematochezia. Patient remains NPO overnight. Nursing notes Levophed titrated off. A 12-point review of systems unable to be completed with nonverbal state. Objective - Vital Signs/Intake and Output Vital Signs (last 24 hours): Temp Pulse Resp BP Pulse Ox 98.3 F 74 18 83/34 L 100 11/09/16 04:00 11/09/16 06:17 11/09/16 06:17 11/09/16 06:18 11/09/16 06:17 Intake and Output: 11/08/16 11/09/16 18:59 06:59 Intake Total 557.3 360 Output Total 300 Balance 557.3 60 - Medications Medications: Current Medications Acetaminophen (Tylenol 650mg/20.3ml Solution Ud) 650 mg PO Q6 PRN PRN Reason: Temperature Last Admin: 11/03/16 12:55 Dose: 650 mg Epoetin Sly (Procrit) 10,000 unit IV MWF [facility] Last Admin: 11/07/16 09:31 Dose: 10,000 unit Norepinephrine Bitartrate 8 mg (/ Dextrose) 258 mls @ 7.74 mls/hr IV .Q24H PRN ; Protocol; 4 MCG/MIN PRN Reason: TITRATE PER MD ORDER Last Titration: 11/08/16 05:24 Dose: 2 mcg/min, 3.87 mls/hr Dextrose (Dextrose 10% In Water) 1,000 mls @ 30 mls/hr IV .Q24H [facility] Last Admin: 11/08/16 19:18 Dose: Not Given Insulin Human Regular (Novolin R) 0 unit SC Q6 [facility] PRN Reason: Protocol Last Admin: 11/09/16 05:45 Dose: Not Given Levothyroxine Sodium (Levothyroxine) 150 mcg IVP DAILY [facility] Last Admin: 11/08/16 09:43 Dose: 150 mcg Pantoprazole Sodium (Protonix Inj) 40 mg IVP DAILY [facility] Last Admin: 11/08/16 09:42 Dose: 40 mg - Labs Labs: 11/08/16 06:35 11/08/16 06:35 PT 19.5 SECONDS (9.7-12.2) H 10/28/16 08:07 INR 1.7 10/28/16 08:07 APTT 49 SECONDS (21-34) H 10/25/16 16:33 - Constitutional Appears: No Acute Distress, Chronically Ill - Head Exam Head Exam: ATRAUMATIC, NORMOCEPHALIC - Eye Exam Eye Exam: EOMI, PERRL Pupil Exam: PERRL. absent: Miosis, Mydriatic - ENT Exam ENT Exam: Mucous Membranes Dry, Normal Oropharynx - Neck Exam Neck Exam: Normal Inspection. absent: Tenderness Additional comments: trach in place on long-term ventilator support - Respiratory Exam Respiratory Exam: Clear to Ausculation Bilateral. absent: Rales, Rhonchi, Wheezes - Cardiovascular Exam Cardiovascular Exam: RRR, +S1, +S2. absent: Gallop, Rubs - GI/Abdominal Exam GI & Abdominal Exam: Soft, Normal Bowel Sounds. absent: Distended, Firm, Guarding, Rigid, Tenderness, Organomegaly, Rebound - Extremities Exam Extremities Exam: absent: Pedal Edema Additional comments: dry heeled ulcers - Neurological Exam Neurological Exam: Awake - Psychiatric Exam Additional comments: unable to assess, nonverbal - Skin Skin Exam: Dry, Normal Color, Warm Additional comments: multiple sacral wound, dry heel ulcers Assessment and Plan - Assessment and Plan (Free Text) Assessment: 76 year old female with history of tracheostomy for ventilator dependent respiratory failure, ESRD on HD, CAD s/p CABG, CHF, caloric protein malnutrition previously on long-term NGT support (pulled on 11/05/16 by patient) , empyema antibiotic course completed 11/07/16, persistent episodes of hypotension requiring intermittent requiring vasopressor support. GI consultation for lower GI bleed with confirmed ischemic colitis on flexible sigmoidoscopy (10/28) showing diffuse rectosigmoid ulcerated mucosa and bleeding vessel proximal to dentate line s/p bipolar cautery and epinephrine injection. GI re-consultation for recurrent rectal bleeding since 11/04/16 s/p 6 Units pRBCs (11/04-11/07). Remote history of EGD and colonoscopy over 30 years ago. Plan: >no further episodes of active GI blood loss overnight >H/H stable, continue to monitor >provide transfusion support as needed >recommend long-term nutritional support with NGT/Dubhoff placement >continue PPI daily for stress ulcer prophylaxis >poor prognosis, poor surgical candidate, high risk to undergo invasive surgical procedure >will consider repeat flexible sigmoidoscopy if GI blood loss persists >thank you for opportunity to participate in the care of this patient. <Amol Woodall - Last Filed: 11/09/16 08:02> Objective - Vital Signs/Intake and Output Vital Signs (last 24 hours): Temp Pulse Resp BP Pulse Ox 98.3 F 71 17 88/36 L 100 11/09/16 04:00 11/09/16 07:18 11/09/16 07:18 11/09/16 07:18 11/09/16 07:18 Intake and Output: 11/09/16 11/09/16 06:59 18:59 Intake Total 360 30 Output Total 300 Balance 60 30 - Medications Medications: Current Medications Acetaminophen (Tylenol 650mg/20.3ml Solution Ud) 650 mg PO Q6 PRN PRN Reason: Temperature Last Admin: 11/03/16 12:55 Dose: 650 mg Epoetin Sly (Procrit) 10,000 unit IV MWF [facility] Last Admin: 11/07/16 09:31 Dose: 10,000 unit Norepinephrine Bitartrate 8 mg (/ Dextrose) 258 mls @ 7.74 mls/hr IV .Q24H PRN ; Protocol; 4 MCG/MIN PRN Reason: TITRATE PER MD ORDER Last Titration: 11/08/16 05:24 Dose: 2 mcg/min, 3.87 mls/hr Dextrose (Dextrose 10% In Water) 1,000 mls @ 30 mls/hr IV .Q24H [facility] Last Admin: 11/08/16 19:18 Dose: Not Given Insulin Human Regular (Novolin R) 0 unit SC Q6 [facility] PRN Reason: Protocol Last Admin: 11/09/16 05:45 Dose: Not Given Levothyroxine Sodium (Levothyroxine) 150 mcg IVP DAILY [facility] Last Admin: 11/08/16 09:43 Dose: 150 mcg Pantoprazole Sodium (Protonix Inj) 40 mg IVP DAILY [facility] Last Admin: 11/08/16 09:42 Dose: 40 mg - Labs Labs: 11/09/16 06:39 11/09/16 06:39 PT 19.5 SECONDS (9.7-12.2) H 10/28/16 08:07 INR 1.7 10/28/16 08:07 APTT 49 SECONDS (21-34) H 10/25/16 16:33 Attending/Attestation - Attestation I have personally seen and examined this patient.: Yes I have fully participated in the care of the patient.: Yes I have reviewed all pertinent clinical information, including history, physical exam and plan: Yes Notes (Text): 11/09/16 07:54 76 year old female with ventilator dependent respiratory failure s/ tracheostomy , ESRD on HD, CAD s/p CABG, CHF, malnutrition, and empyema admitted with sepsis , also with rectal bleeding due to ischemic colitis. 1. Ischemic colitis 2. Jaundice 3. Malnutrition Plan: -s/p sigmoidoscopy demonstrating severe rectal and recto-sigmoid ulceration with active diffuse oozing as well as one small visible vessel with active bleeding s/p epi/biopolar cautery -no further bleeding, brown stool -she is chronically hypotensive and requiring dialysis in the setting of cardiovascular disease -the rectal ulceration may not heal considering her overall poor condition/ nutritional state -treat supportively -recommend dobhoff placement and enteral nutrition -PEG is contraindicated due to presence of ascites, which would subject the patient to bacterial peritonitis, leakage, poor wound healing -would also recommend against TPN due to the numerous complications of TPN, including infectious and thrombotic line complications, potential for worsening the patients cholestasis/liver function, and as well that fact that she has an intact GI tract where enteral nutrition could be delivered via dobhoff and would provide overall superior nutrition -would recommend dobhoff placement, securing it in place, and taking measures to prevent patient from removing the tube -cholestasis may be due to sepsis, congestive hepatopathy, drug induced -avoid hepatotoxic medications -overall, prognosis is poor -will sign off
[2016-11-09 06:50] LABS: BASO # 0.1 K/uL (0.0-0.2); BASO % 0.8 % (0.0-2.0); EOS # 0.2 K/uL (0.0-0.7); HEMATOCRIT 30.8 % (34.0-47.0); LYMPH # 1.4 K/uL (1.0-4.3); LYMPH % 14.2 % (20.0-40.0); MEAN CELL VOLUME 89.3 fL (81.0-99.0); MEAN CORPUSCULAR HEMOGLOBIN 29.3 pg (27.0-31.0); MEAN CORPUSCULAR HGB CONC 32.8 g/dL (33.0-37.0); MEAN PLATELET VOLUME 9.4 fL (7.2-11.7); MONO # 0.7 K/uL (0.0-0.8); MONO % 7.1 % (0.0-10.0); NRBC % 0.1 % (0.0-2.0); WHITE BLOOD COUNT 10.1 K/uL (4.8-10.8)
[2016-11-09 07:02] LABS: ALB/GLOB RATIO 0.5 (1.0-2.1); BILIRUBIN,TOTAL 6.6 mg/dL (0.2-1.3); CALCIUM 7.6 mg/dl (8.6-10.4); MAGNESIUM 1.6 mg/dL (1.6-2.3); PHOSPHOROUS 3.5 mg/dL (2.5-4.5); POTASSIUM 3.9 mmol/L (3.6-5.2); TOTAL PROTEIN 6.1 g/dL (6.3-8.3)
--- NOTE | 2016-11-09 07:28 | CP.CCUPN ---
<Gretchen Brewer - Last Filed: 11/09/16 10:48> CCU Subjective - Physician Review Subjective (Free Text): Patient was seen and examined in the AM at bedside. Patient is non-verbal. Per nurse patient has stopped having bloody bowel movements since last night 11/08. Patient is currently off Norepinephrine for blood pressure and it is stable. Patient removed the NGT yesterday and it has been replaced today 11/09. 11/09/16 10:18 CCU Objective - Vital Signs / Intake & Output Vital Signs (Last 4 hours): Vital Signs Temp Pulse Resp BP Pulse Ox 11/09/16 07:18 71 17 88/36 L 100 11/09/16 06:18 83/34 L 11/09/16 06:17 74 18 100 11/09/16 05:27 87 10 L 87/66 L 11/09/16 04:18 72 13 91/42 L 100 11/09/16 04:00 98.3 F Intake and Output (Last 8hrs): Intake & Output 11/08/16 11/09/16 11/09/16 22:59 06:59 14:59 Intake Total 240 240 30 Output Total 300 Balance 240 -60 30 Weight 107 lb Intake: Intake, IV Amount 240 240 30 Right Proximal Port PICC 240 240 30 Output: Stool 300 Other: # Bowel Movements 1 1 - Physical Exam Head: Positive for: Atraumatic Extroacular Muscles: Positive for: EOMI Conjunctiva: Positive for: Icteric Mouth: Positive for: Dry Nose (Internal): Positive for: Other (NGT was replaced 11/09) Neck: Positive for: Other (trach in place) Respiratory/Chest: Positive for: Rhonchi. Negative for: Clear to Auscultation, Respiratory Distress, Accessory Muscle Use Cardiovascular: Positive for: Regular Rate and Rhythm, Normal S1, S2. Negative for: Murmurs, Tachycardic, Bradycardic Abdomen: Negative for: Peritoneal Signs, Hernias Rectal: Negative for: Gross Blood Upper Extremity: Positive for: Cyanosis, Temperature Abnormalties, Other (cold fingers, ischemic 3rd digit on left hand ). Negative for: NORMAL PULSES, Neurovascularly Intact, Capillary Refill < 2s Lower Extremity: Positive for: Edema Neurological: Negative for: GCS=15, Speech Normal Skin: Positive for: Cold (bilateral hands), Other (gangrenous fingertips). Negative for: Warm Psychiatric: Positive for: Other (non-verbal ). Negative for: Alert, Oriented x 3, Normal Insight, Normal Concentration - Medications Active Medications: Active Medications Generic Name Dose Route Start Last Admin Trade Name Freq PRN Reason Stop Dose Admin Acetaminophen 650 mg 11/03/16 12:38 11/03/16 12:55 Tylenol 650mg/20.3ml Solution Ud PO 650 mg Q6 PRN Administration Temperature Epoetin Sly 10,000 unit 11/02/16 09:30 11/07/16 09:31 Procrit IV 10,000 unit MWF [facility] Administration Norepinephrine Bitartrate 8 mg 258 mls @ 7.74 mls/hr 11/02/16 10:44 11/08/16 05:24 / Dextrose IV 2 mcg/min .Q24H PRN 3.87 mls/hr TITRATE PER MD ORDER Titration Protocol 4 MCG/MIN Dextrose 1,000 mls @ 30 mls/hr 11/05/16 18:00 11/08/16 19:18 Dextrose 10% In Water IV Not Given .Q24H REK[facility] Insulin Human Regular 0 unit 10/26/16 06:00 11/09/16 05:45 Novolin R SC Not Given Q6 REK[facility] Protocol Levothyroxine Sodium 150 mcg 11/08/16 10:00 11/08/16 09:43 Levothyroxine IVP 150 mcg DAILY RE[facility] Administration Pantoprazole Sodium 40 mg 11/05/16 11:15 11/08/16 09:42 Protonix Inj IVP 40 mg DAILY REKHA Administration - Patient Studies Lab Studies: Microbiology Studies 11/03/16 09:00 Blood Culture - Final Blood-Thru Central Line NO GROWTH AFTER 5 DAYS Gram Stain - Final TEST NOT PERFORMED 11/03/16 08:45 Blood Culture - Final Blood-Thru Central Line NO GROWTH AFTER 5 DAYS Gram Stain - Final TEST NOT PERFORMED Lab Studies 11/09/16 11/09/16 11/09/16 Range/Units 06:39 06:39 05:42 WBC 10.1 (4.8-10.8) K/uL RBC 3.45 L (3.80-5.20) Mil/uL Hgb 10.1 L (11.0-16.0) g/dL Hct 30.8 L (34.0-47.0) % MCV 89.3 D (81.0-99.0) fL MCH 29.3 (27.0-31.0) pg MCHC 32.8 L (33.0-37.0) g/dL RDW 17.0 H (11.5-14.5) % Plt Count 90 L (130-400) K/uL MPV 9.4 (7.2-11.7) fL Neut % (Auto) 75.9 H (50.0-75.0) % Lymph % (Auto) 14.2 L (20.0-40.0) % [place] % (Auto) 7.1 (0.0-10.0) % Eos % (Auto) 2.0 (0.0-4.0) % Baso % (Auto) 0.8 (0.0-2.0) % Neut # 7.7 H (1.8-7.0) K/uL Lymph # 1.4 (1.0-4.3) K/uL [place] # 0.7 (0.0-0.8) K/uL Eos # 0.2 (0.0-0.7) K/uL Baso # 0.1 (0.0-0.2) K/uL Sodium 129 L (132-148) mmol/L Potassium 3.9 (3.6-5.2) mmol/L Chloride 93 L (98-107) mmol/L Carbon Dioxide 27 (22-30) mmol/L Anion Gap 13 (10-20) BUN 27 H (7-17) mg/dL Creatinine 1.8 H (0.7-1.2) MG/DL Est GFR ( Amer) 33 Est GFR (Non-Af Amer) 28 POC Glucose (mg/dL) 91 (65-110) mg/dL Random Glucose 84 (65-105) mg/dL Calcium 7.6 L (8.6-10.4) mg/dl Phosphorus 3.5 (2.5-4.5) mg/dL Magnesium 1.6 (1.6-2.3) mg/dL Total Bilirubin 6.6 H (0.2-1.3) mg/dL AST 47 H (14-36) U/L ALT 28 (9-52) U/L Alkaline Phosphatase 220 H (38-126) U/L Total Protein 6.1 L (6.3-8.3) g/dL Albumin 2.1 L (3.5-5.0) g/dL Globulin 4.0 H (2.2-3.9) gm/dL Albumin/Globulin Ratio 0.5 L (1.0-2.1) 11/08/16 11/08/16 11/08/16 Range/Units 23:59 17:40 11:14 WBC (4.8-10.8) K/uL RBC (3.80-5.20) Mil/uL Hgb (11.0-16.0) g/dL Hct (34.0-47.0) % MCV (81.0-99.0) fL MCH (27.0-31.0) pg MCHC (33.0-37.0) g/dL RDW (11.5-14.5) % Plt Count (130-400) K/uL MPV (7.2-11.7) fL Neut % (Auto) (50.0-75.0) % Lymph % (Auto) (20.0-40.0) % [place] % (Auto) (0.0-10.0) % Eos % (Auto) (0.0-4.0) % Baso % (Auto) (0.0-2.0) % Neut # (1.8-7.0) K/uL Lymph # (1.0-4.3) K/uL [place] # (0.0-0.8) K/uL Eos # (0.0-0.7) K/uL Baso # (0.0-0.2) K/uL Sodium (132-148) mmol/L Potassium (3.6-5.2) mmol/L Chloride (98-107) mmol/L Carbon Dioxide (22-30) mmol/L Anion Gap (10-20) BUN (7-17) mg/dL Creatinine (0.7-1.2) MG/DL Est GFR ( Amer) Est GFR (Non-Af Amer) POC Glucose (mg/dL) 101 148 H 143 H (65-110) mg/dL Random Glucose (65-105) mg/dL Calcium (8.6-10.4) mg/dl Phosphorus (2.5-4.5) mg/dL Magnesium (1.6-2.3) mg/dL Total Bilirubin (0.2-1.3) mg/dL AST (14-36) U/L ALT (9-52) U/L Alkaline Phosphatase (38-126) U/L Total Protein (6.3-8.3) g/dL Albumin (3.5-5.0) g/dL Globulin (2.2-3.9) gm/dL Albumin/Globulin Ratio (1.0-2.1) Laboratory Results - last 24 hr 11/08/16 11/08/16 11/08/16 11:14 17:40 23:59 WBC RBC Hgb Hct MCV MCH MCHC RDW Plt Count MPV Neut % (Auto) Lymph % (Auto) [place] % (Auto) Eos % (Auto) Baso % (Auto) Neut # Lymph # [place] # Eos # Baso # Sodium Potassium Chloride Carbon Dioxide Anion Gap BUN Creatinine Est GFR ( Amer) Est GFR (Non-Af Amer) POC Glucose (mg/dL) 143 H 148 H 101 Random Glucose Calcium Phosphorus Magnesium Total Bilirubin AST ALT Alkaline Phosphatase Total Protein Albumin Globulin Albumin/Globulin Ratio 11/09/16 11/09/16 11/09/16 05:42 06:39 06:39 WBC 10.1 RBC 3.45 L Hgb 10.1 L Hct 30.8 L MCV 89.3 D MCH 29.3 MCHC 32.8 L RDW 17.0 H Plt Count 90 L MPV 9.4 Neut % (Auto) 75.9 H Lymph % (Auto) 14.2 L [place] % (Auto) 7.1 Eos % (Auto) 2.0 Baso % (Auto) 0.8 Neut # 7.7 H Lymph # 1.4 [place] # 0.7 Eos # 0.2 Baso # 0.1 Sodium 129 L Potassium 3.9 Chloride 93 L Carbon Dioxide 27 Anion Gap 13 BUN 27 H Creatinine 1.8 H Est GFR ( Amer) 33 Est GFR (Non-Af Amer) 28 POC Glucose (mg/dL) 91 Random Glucose 84 Calcium 7.6 L Phosphorus 3.5 Magnesium 1.6 Total Bilirubin 6.6 H AST 47 H ALT 28 Alkaline Phosphatase 220 H Total Protein 6.1 L Albumin 2.1 L Globulin 4.0 H Albumin/Globulin Ratio 0.5 L Fingerstick Blood Sugar Results: 91 Review of Systems - Review of Systems Systems not reviewed;Unavailable: Altered Mental Status Assessment/Plan - Assessment and Plan (Free Text) Assessment: 76F admitted for GI bleed; s/p flexible sigmoidoscopy and multiple transfusions. Plan: Plan: Neuro: - GCS 9T - at baseline likely 2/2 metabolic encephalopathy - Patient in non-verbal Pulm: - Chronic Respiratory failure - Trach on vent - currently on Cpap - will attempt a trach collar today 11/09 -CT chest shows b/l pleural effusions R>L with subsegmental atelectasis CV: - Septic Shock - BP mildly improved - systolic now 100-110s - Norepinephrine is currently stopped 11/09 - Tylenol 650mg IV - Dr Long on board. Pt high risk for any procedure but can proceed if clinical indicated - Left hand with ischemic necrosis - consult placed for vasc Dr Buck - likely nothing to do Heme: - Anemia of Chronic Disease and critical illness - H/H (11/09):10.1/30.8; H/H (11/08): 10.2/29.7; H/H (11/07): 6.3/19.2 - Patient received 2 units and 1 unit of FFP (11/07) - will cont to monitor H/H and for rectal bleed Renal: - ESRD - HD as per Dr Mcfarland - Dr Trent on consult --> help appreciated Endo: -Insulin sliding scale - patient's daughter refuses insulin GI: - - CT shows significant colitis at rectosigmoid junction - Ischemic colitis with hemorrhage, not a candidate for intervention as this would be medically futile. - Flexible sigmoidoscopy at bedside 10/28/16 shows ischemic colitis - Fam declined sx - NGT removed 11/05/16 per patient's daughter request - NGT was replaced 11/07 - Patient pulled out the Dubhoff tube overnight - Dubhoff was replaced 11/09 - Protonix drip for GI bleed - GI Consult: Dr. Young --> help appreciated ID: - Septic Shock - Meropenem was discontinued 11/07 (patient received a 13 day course) Pt chronically ill, prognosis very poor DVT proph - SCDs, no anti-coagulation due to acute bleed GI proph - Protonix 40mg IVP daily Code status - Full Case discussed with Dr. Yordy Brewer PGY-1 <Jonaatn Scales S - Last Filed: 11/09/16 17:49> CCU Objective - Vital Signs / Intake & Output Vital Signs (Last 4 hours): Vital Signs Temp Pulse Resp BP Pulse Ox 11/09/16 16:00 97.4 F L 76 17 100 11/09/16 15:18 75 22 93/38 L 100 11/09/16 15:00 74 22 100 11/09/16 14:18 74 14 90/37 L 100 11/09/16 14:00 74 15 100 Intake and Output (Last 8hrs): Intake & Output 11/09/16 11/09/16 11/09/16 06:59 14:59 22:59 Intake Total 240 310 130 Output Total 300 0 Balance -60 310 130 Weight 107 lb Intake: Intake, IV Amount 240 240 60 Right Proximal Port PICC 240 240 60 Tube Feeding 70 70 Output: Urine 0 Urine, Voided 0 Stool 300 Emesis 0 Other: # Bowel Movements 1 1 1 - Medications Active Medications: Active Medications Generic Name Dose Route Start Last Admin Trade Name Freq PRN Reason Stop Dose Admin Acetaminophen 650 mg 11/03/16 12:38 11/03/16 12:55 Tylenol 650mg/20.3ml Solution Ud PO 650 mg Q6 PRN Administration Temperature Epoetin Sly 10,000 unit 11/02/16 09:30 11/07/16 09:31 Procrit IV 10,000 unit MWF [facility] Administration Norepinephrine Bitartrate 8 mg 258 mls @ 7.74 mls/hr 11/02/16 10:44 11/08/16 05:24 / Dextrose IV 2 mcg/min .Q24H PRN 3.87 mls/hr TITRATE PER MD ORDER Titration Protocol 4 MCG/MIN Dextrose 1,000 mls @ 30 mls/hr 11/05/16 18:00 11/08/16 19:18 Dextrose 10% In Water IV Not Given .Q24H [facility] Insulin Human Regular 0 unit 10/26/16 06:00 11/09/16 12:35 Novolin R SC 1 unit Q6 REK[facility] Administration Protocol Levothyroxine Sodium 150 mcg 11/08/16 10:00 11/09/16 09:13 Levothyroxine IVP 150 mcg DAILY REK[facility] Administration Pantoprazole Sodium 40 mg 11/05/16 11:15 11/09/16 09:12 Protonix Inj IVP 40 mg DAILY REK[facility] Administration - Patient Studies Lab Studies: Lab Studies 11/09/16 11/09/16 11/09/16 Range/Units 12:17 06:39 06:39 WBC 10.1 (4.8-10.8) K/uL RBC 3.45 L (3.80-5.20) Mil/uL Hgb 10.1 L (11.0-16.0) g/dL Hct 30.8 L (34.0-47.0) % MCV 89.3 D (81.0-99.0) fL MCH 29.3 (27.0-31.0) pg MCHC 32.8 L (33.0-37.0) g/dL RDW 17.0 H (11.5-14.5) % Plt Count 90 L (130-400) K/uL MPV 9.4 (7.2-11.7) fL Neut % (Auto) 75.9 H (50.0-75.0) % Lymph % (Auto) 14.2 L (20.0-40.0) % [place] % (Auto) 7.1 (0.0-10.0) % Eos % (Auto) 2.0 (0.0-4.0) % Baso % (Auto) 0.8 (0.0-2.0) % Neut # 7.7 H (1.8-7.0) K/uL Lymph # 1.4 (1.0-4.3) K/uL [place] # 0.7 (0.0-0.8) K/uL Eos # 0.2 (0.0-0.7) K/uL Baso # 0.1 (0.0-0.2) K/uL Sodium 129 L (132-148) mmol/L Potassium 3.9 (3.6-5.2) mmol/L Chloride 93 L (98-107) mmol/L Carbon Dioxide 27 (22-30) mmol/L Anion Gap 13 (10-20) BUN 27 H (7-17) mg/dL Creatinine 1.8 H (0.7-1.2) MG/DL Est GFR ( Amer) 33 Est GFR (Non-Af Amer) 28 POC Glucose (mg/dL) 84 (65-110) mg/dL Random Glucose 84 (65-105) mg/dL Calcium 7.6 L (8.6-10.4) mg/dl Phosphorus 3.5 (2.5-4.5) mg/dL Magnesium 1.6 (1.6-2.3) mg/dL Total Bilirubin 6.6 H (0.2-1.3) mg/dL AST 47 H (14-36) U/L ALT 28 (9-52) U/L Alkaline Phosphatase 220 H (38-126) U/L Total Protein 6.1 L (6.3-8.3) g/dL Albumin 2.1 L (3.5-5.0) g/dL Globulin 4.0 H (2.2-3.9) gm/dL Albumin/Globulin Ratio 0.5 L (1.0-2.1) 11/09/16 11/08/16 Range/Units 05:42 23:59 WBC (4.8-10.8) K/uL RBC (3.80-5.20) Mil/uL Hgb (11.0-16.0) g/dL Hct (34.0-47.0) % MCV (81.0-99.0) fL MCH (27.0-31.0) pg MCHC (33.0-37.0) g/dL RDW (11.5-14.5) % Plt Count (130-400) K/uL MPV (7.2-11.7) fL Neut % (Auto) (50.0-75.0) % Lymph % (Auto) (20.0-40.0) % [place] % (Auto) (0.0-10.0) % Eos % (Auto) (0.0-4.0) % Baso % (Auto) (0.0-2.0) % Neut # (1.8-7.0) K/uL Lymph # (1.0-4.3) K/uL [place] # (0.0-0.8) K/uL Eos # (0.0-0.7) K/uL Baso # (0.0-0.2) K/uL Sodium (132-148) mmol/L Potassium (3.6-5.2) mmol/L Chloride (98-107) mmol/L Carbon Dioxide (22-30) mmol/L Anion Gap (10-20) BUN (7-17) mg/dL Creatinine (0.7-1.2) MG/DL Est GFR ( Amer) Est GFR (Non-Af Amer) POC Glucose (mg/dL) 91 101 (65-110) mg/dL Random Glucose (65-105) mg/dL Calcium (8.6-10.4) mg/dl Phosphorus (2.5-4.5) mg/dL Magnesium (1.6-2.3) mg/dL Total Bilirubin (0.2-1.3) mg/dL AST (14-36) U/L ALT (9-52) U/L Alkaline Phosphatase (38-126) U/L Total Protein (6.3-8.3) g/dL Albumin (3.5-5.0) g/dL Globulin (2.2-3.9) gm/dL Albumin/Globulin Ratio (1.0-2.1) Laboratory Results - last 24 hr 11/08/16 11/09/16 11/09/16 23:59 05:42 06:39 WBC 10.1 RBC 3.45 L Hgb 10.1 L Hct 30.8 L MCV 89.3 D MCH 29.3 MCHC 32.8 L RDW 17.0 H Plt Count 90 L MPV 9.4 Neut % (Auto) 75.9 H Lymph % (Auto) 14.2 L [place] % (Auto) 7.1 Eos % (Auto) 2.0 Baso % (Auto) 0.8 Neut # 7.7 H Lymph # 1.4 [place] # 0.7 Eos # 0.2 Baso # 0.1 Sodium Potassium Chloride Carbon Dioxide Anion Gap BUN Creatinine Est GFR ( Amer) Est GFR (Non-Af Amer) POC Glucose (mg/dL) 101 91 Random Glucose Calcium Phosphorus Magnesium Total Bilirubin AST ALT Alkaline Phosphatase Total Protein Albumin Globulin Albumin/Globulin Ratio 11/09/16 11/09/16 06:39 12:17 WBC RBC Hgb Hct MCV MCH MCHC RDW Plt Count MPV Neut % (Auto) Lymph % (Auto) [place] % (Auto) Eos % (Auto) Baso % (Auto) Neut # Lymph # [place] # Eos # Baso # Sodium 129 L Potassium 3.9 Chloride 93 L Carbon Dioxide 27 Anion Gap 13 BUN 27 H Creatinine 1.8 H Est GFR ( Amer) 33 Est GFR (Non-Af Amer) 28 POC Glucose (mg/dL) 84 Random Glucose 84 Calcium 7.6 L Phosphorus 3.5 Magnesium 1.6 Total Bilirubin 6.6 H AST 47 H ALT 28 Alkaline Phosphatase 220 H Total Protein 6.1 L Albumin 2.1 L Globulin 4.0 H Albumin/Globulin Ratio 0.5 L Assessment/Plan (1) Lower GI bleed Current Visit: Yes Status: Acute (2) ESRD (end stage renal disease) on dialysis Current Visit: No Status: Chronic Attending/Attestation - Attestation I have personally seen and examined this patient.: Yes I have fully participated in the care of the patient.: Yes I have reviewed all pertinent clinical information: Yes Notes (Text): 11/09/16 17:47 Patient seen and examined. No change in overall condition Continue hemodialysis Patient started on NGT feeding Follow-up H&H
[2016-11-09] MEDS ORDERED: Albumin Human 25% (12.5 gm/50 ml) IV ONE (08:09)
[2016-11-09] MEDS: Levothyroxine 200 mcg (0.2 mg) Inj IVP SCH (09:13)
--- NOTE | 2016-11-09 10:31 | RAD ---
HISTORY: Status post NG tube COMPARISON: Chest x-ray performed 11/07/16 TECHNIQUE: Chest, one view. FINDINGS: Distal tip of the Duboff tube terminates at the distal esophagus and should be advanced to extend to the expected location of the stomach. Tracheostomy tube. Right-sided PICC extends expected location of the cavoatrial junction. LUNGS: Persistent moderate loculated right pleural effusion. Right basilar consolidation. Biapical pleural thickening. No definite pneumothorax. Please note that chest x-ray has limited sensitivity for the detection of pulmonary masses. CARDIOVASCULAR: Cardiomegaly. Median sternotomy wires with evidence of CABG. Dense atherosclerotic calcifications. OSSEOUS STRUCTURES: Osseous demineralization. Degenerative changes. Deformity of the proximal right humerus. Degenerative changes of the spine and shoulders. VISUALIZED UPPER ABDOMEN: Unremarkable. OTHER FINDINGS: None. IMPRESSION: Distal tip of the Duboff tube terminates at the distal esophagus and should be advanced to extend to the expected location of the stomach. Tracheostomy tube. Right-sided PICC extends expected location of the cavoatrial junction. Persistent moderate loculated right pleural effusion. Right basilar consolidation. Biapical pleural thickening. Cardiomegaly. NG tube placement discussed with the patient's RN Anabela on 11/09/16 at 10:25 a.m.
--- NOTE | 2016-11-09 11:51 | RAD ---
Chest x-ray single frontal view History: NG tube advancement. Comparison: 11/09/2016 Findings: Tracheostomy tube projecting to the left of midline, possibly related to rotation. Enteric tube extending into the stomach. Other lines and tubes in stable position. Moderate loculated right pleural effusion. Moderate to severe venous congestion. Patchy bibasilar airspace opacities. Biapical pleural thickening with upper lobe granulomatous changes. Right peritracheal airspace opacity may be related to prominent vasculature. Status post median sternotomy and CABG. Mild cardiomegaly. Degenerative changes in the spine and shoulders. Probable loose osteochondral bodies the left glenohumeral joint space. Impression: Tracheostomy tube projecting to the left of midline, possibly related to rotation. Enteric tube extending into the stomach. Other lines and tubes in stable position. Moderate loculated right pleural effusion. Moderate to severe venous congestion. Patchy bibasilar airspace opacities. Biapical pleural thickening with upper lobe granulomatous changes. Right peritracheal airspace opacity may be related to prominent vasculature. Status post median sternotomy and CABG. Mild cardiomegaly. Degenerative changes in the spine and shoulders. Probable loose osteochondral bodies the left glenohumeral joint space.
--- NOTE | 2016-11-09 15:37 | CP.PCM.PN ---
Subjective - Date & Time of Evaluation Date of Evaluation: 11/09/16 Time of Evaluation: 15:33 - Subjective Subjective: HD held today due to hypotension on respirator daughter at bedside Unable to obtain ROS due to clinical condition Objective - Vital Signs/Intake and Output Vital Signs (last 24 hours): Temp Pulse Resp BP Pulse Ox 98.7 F 75 22 90/34 L 100 11/09/16 08:00 11/09/16 10:18 11/09/16 10:18 11/09/16 10:18 11/09/16 10:18 Intake and Output: 11/09/16 11/09/16 06:59 18:59 Intake Total 360 120 Output Total 300 0 Balance 60 120 - Medications Medications: Current Medications Acetaminophen (Tylenol 650mg/20.3ml Solution Ud) 650 mg PO Q6 PRN PRN Reason: Temperature Last Admin: 11/03/16 12:55 Dose: 650 mg Epoetin Sly (Procrit) 10,000 unit IV MWF [facility] Last Admin: 11/07/16 09:31 Dose: 10,000 unit Norepinephrine Bitartrate 8 mg (/ Dextrose) 258 mls @ 7.74 mls/hr IV .Q24H PRN ; Protocol; 4 MCG/MIN PRN Reason: TITRATE PER MD ORDER Last Titration: 11/08/16 05:24 Dose: 2 mcg/min, 3.87 mls/hr Dextrose (Dextrose 10% In Water) 1,000 mls @ 30 mls/hr IV .Q24H [facility] Last Admin: 11/08/16 19:18 Dose: Not Given Insulin Human Regular (Novolin R) 0 unit SC Q6 [facility] PRN Reason: Protocol Last Admin: 11/09/16 12:35 Dose: 1 unit Levothyroxine Sodium (Levothyroxine) 150 mcg IVP DAILY [facility] Last Admin: 11/09/16 09:13 Dose: 150 mcg Pantoprazole Sodium (Protonix Inj) 40 mg IVP DAILY [facility] Last Admin: 11/09/16 09:12 Dose: 40 mg - Labs Labs: 11/09/16 06:39 11/09/16 06:39 PT 19.5 SECONDS (9.7-12.2) H 10/28/16 08:07 INR 1.7 10/28/16 08:07 APTT 49 SECONDS (21-34) H 10/25/16 16:33 - Constitutional Appears: Chronically Ill - Head Exam Head Exam: ATRAUMATIC Additional comments: on respirator - Respiratory Exam Respiratory Exam: Decreased Breath Sounds - Cardiovascular Exam Cardiovascular Exam: Irregular Rhythm. absent: Rubs - GI/Abdominal Exam GI & Abdominal Exam: Soft. absent: Tenderness - Extremities Exam Extremities Exam: absent: Pedal Edema Additional comments: ischemia of finger tips and toes - Neurological Exam Additional comments: grimaces to touch Assessment and Plan - Assessment and Plan (Free Text) Assessment: vdrf HD afib gi bleed hypotension pleural effusions hold Hd today due to hypotension Plan: esrd vdrf plerual effusions afib gi bleed hyptension HD held today due to hypotension resume in am
--- NOTE | 2016-11-09 22:40 | CP.PCM.CON ---
History of Present Illness - History of Present Illness History of Present Illness: Patient seen and evaluated Patient looks better Past Patient History - Infectious Disease Hx of Infectious Diseases: None - Past Medical History & Family History Past Medical History?: Yes - Past Social History Smoking Status: Never Smoked - CARDIAC Hx Congestive Heart Failure: Yes Hx Hypercholesterolemia: Yes Hx Hypertension: Yes Hx Peripheral Edema: Yes - PULMONARY Hx Respiratory Disorders: Yes Other/Comment: hx of thoracentesis,recurrent pleural effusion - NEUROLOGICAL Hx Neurological Disorder: No - HEENT Hx HEENT Problems: Yes Other/Comment: hard of hearing - RENAL Hx Chronic Kidney Disease: Yes - ENDOCRINE/METABOLIC Hx Hypothyroidism: Yes - HEMATOLOGICAL/ONCOLOGICAL Hx Blood Disorders: No - INTEGUMENTARY Hx Dermatological Problems: No - MUSCULOSKELETAL/RHEUMATOLOGICAL Hx Musculoskeletal Disorders: No Hx Falls: No - GASTROINTESTINAL Hx Crohn's Disease: No Hx Diverticulitis: No - GENITOURINARY/GYNECOLOGICAL Hx Genitourinary Disorders: Yes Hx Urinary Tract Infection: Yes (2006) Other/Comment: ureteral stent placed 06/2015 - PSYCHIATRIC Hx Substance Use: No - SURGICAL HISTORY Hx Coronary Artery Bypass Graft: Yes (2001) Hx Coronary Stent: Yes (x3 in 2006) - ANESTHESIA Hx Anesthesia: Yes Hx Anesthesia Reactions: No Hx Malignant Hyperthermia: No Meds Allergies/Adverse Reactions: Allergies Allergy/AdvReac Type Severity Reaction Status Date / Time Sulfa (Sulfonamide Allergy RASH Verified 10/25/16 15:46 Antibiotics) - Medications Medications: Current Medications Acetaminophen (Tylenol 650mg/20.3ml Solution Ud) 650 mg PO Q6 PRN PRN Reason: Temperature Last Admin: 11/03/16 12:55 Dose: 650 mg Epoetin Sly (Procrit) 10,000 [place] [facility] [place] Admin: 11/07/16 09:31 Dose: 10,000 unit Norepinephrine Bitartrate 8 mg (/ Dextrose) 258 mls @ 7.74 mls/hr IV .Q24H PRN ; Protocol; 4 MCG/MIN PRN Reason: TITRATE PER MD ORDER Last Titration: 11/08/16 05:24 Dose: 2 mcg/min, 3.87 mls/hr Dextrose (Dextrose 10% In Water) 1,000 mls @ 30 mls/hr IV .Q24H [facility] Last Admin: 11/09/16 18:00 Dose: 30 mls/hr Insulin Human Regular (Novolin R) 0 unit SC Q6 [facility] PRN Reason: Protocol Last Admin: 11/09/16 18:00 Dose: Not Given Levothyroxine Sodium (Levothyroxine) 150 mcg IVP DAILY [facility] Last Admin: 11/09/16 09:13 Dose: 150 mcg Pantoprazole Sodium (Protonix Inj) 40 mg IVP DAILY [facility] Last Admin: 11/09/16 09:12 Dose: 40 mg Results - Vital Signs Recent Vital Signs: Last Vital Signs Temp 97.4 F L 11/09/16 20:00 Pulse 67 11/09/16 20:00 Resp 20 11/09/16 20:00 BP 91/42 L 11/09/16 19:18 Pulse Ox 100 11/09/16 20:00 - Labs Result Diagrams: 11/09/16 06:39 11/09/16 06:39 Labs: Laboratory Results - last 24 hr 11/08/16 11/09/16 11/09/16 23:59 05:42 06:39 WBC 10.1 RBC 3.45 L Hgb 10.1 L Hct 30.8 L MCV 89.3 D MCH 29.3 MCHC 32.8 L RDW 17.0 H Plt Count 90 L MPV 9.4 Neut % (Auto) 75.9 H Lymph % (Auto) 14.2 L [place] % (Auto) 7.1 Eos % (Auto) 2.0 Baso % (Auto) 0.8 Neut # 7.7 H Lymph # 1.4 [place] # 0.7 Eos # 0.2 Baso # 0.1 Sodium Potassium Chloride Carbon Dioxide Anion Gap BUN Creatinine Est GFR ( Amer) Est GFR (Non-Af Amer) POC Glucose (mg/dL) 101 91 Random Glucose Calcium Phosphorus Magnesium Total Bilirubin AST ALT Alkaline Phosphatase Total Protein Albumin Globulin Albumin/Globulin Ratio 11/09/16 11/09/16 11/09/16 06:39 12:17 17:52 WBC RBC Hgb Hct MCV MCH MCHC RDW Plt Count MPV Neut % (Auto) Lymph % (Auto) [place] % (Auto) Eos % (Auto) Baso % (Auto) Neut # Lymph # [place] # Eos # Baso # Sodium 129 L Potassium 3.9 Chloride 93 L Carbon Dioxide 27 Anion Gap 13 BUN 27 H Creatinine 1.8 H Est GFR ( Amer) 33 Est GFR (Non-Af Amer) 28 POC Glucose (mg/dL) 84 88 Random Glucose 84 Calcium 7.6 L Phosphorus 3.5 Magnesium 1.6 Total Bilirubin 6.6 H AST 47 H ALT 28 Alkaline Phosphatase 220 H Total Protein 6.1 L Albumin 2.1 L Globulin 4.0 H Albumin/Globulin Ratio 0.5 L
[2016-11-10 06:14] LABS: BASO # 0.1 K/uL (0.0-0.2); BASO % 0.6 % (0.0-2.0); EOS # 0.2 K/uL (0.0-0.7); EOS % 1.4 % (0.0-4.0); HEMATOCRIT 31.5 % (34.0-47.0); LYMPH # 1.2 K/uL (1.0-4.3); LYMPH % 9.6 % (20.0-40.0); MEAN CELL VOLUME 90.1 fL (81.0-99.0); MEAN CORPUSCULAR HGB CONC 33.3 g/dL (33.0-37.0); MEAN PLATELET VOLUME 9.8 fL (7.2-11.7); MONO # 0.7 K/uL (0.0-0.8); MONO % 5.9 % (0.0-10.0); PLATELET COUNT 89 K/uL (130-400); RED CELL DISTRIBUTION WIDTH 16.9 % (11.5-14.5); WHITE BLOOD COUNT 12.4 K/uL (4.8-10.8)
[2016-11-10 06:24] LABS: ALB/GLOB RATIO 0.5 (1.0-2.1); BILIRUBIN,TOTAL 5.7 mg/dL (0.2-1.3); CALCIUM 7.7 mg/dl (8.6-10.4); MAGNESIUM 1.7 mg/dL (1.6-2.3); PHOSPHOROUS 4.2 mg/dL (2.5-4.5); TOTAL PROTEIN 6.1 g/dL (6.3-8.3)
[2016-11-10] MEDS: (Novolin R) Insulin Human Regular 100 units/ml vial SC SCH ×3 (07:00→12:39)
[2016-11-10 08:26] LABS: BASOPHIL 2 % (0-2); EOSINOPHIL 1 % (0-4); GIANT PLATELETS PRESENT; LARGE PLATELETS PRESENT; NEUTROPHIL 60 % (50-75); TOTAL CELLS COUNTED 100
[2016-11-10] MEDS: Epoetin Alfa 10,000 unit/ml Dialysis IV SCH (08:35)
[2016-11-10] MEDS ORDERED: EPOETIN ALFA 10,000 UNIT/ML ML SC ONE (09:00)
[2016-11-10] MEDS ORDERED: Epoetin Alfa 10,000 unit/ml Dialysis IV ONE (10:15)
--- NOTE | 2016-11-10 10:25 | CP.PCM.PN ---
Subjective - Date & Time of Evaluation Date of Evaluation: 11/10/16 Time of Evaluation: 10:22 - Subjective Subjective: Dialysis held 11/09 due to hypotension. On dialysis now- UF about 2500ml Off pressors More alert On CPAP; on vent-trach Not conversant Objective - Vital Signs/Intake and Output Vital Signs (last 24 hours): Temp Pulse Resp BP Pulse Ox 97.4 F L 74 21 94/40 L 100 11/10/16 08:00 11/10/16 09:18 11/10/16 09:18 11/10/16 09:18 11/10/16 09:18 Intake and Output: 11/10/16 11/10/16 06:59 18:59 Intake Total 780 195 Balance 780 195 - Medications Medications: Current Medications Acetaminophen (Tylenol 650mg/20.3ml Solution Ud) 650 mg PO Q6 PRN PRN Reason: Temperature Last Admin: 11/03/16 12:55 Dose: 650 mg Albumin Human (Albumin Human 25% (12.5 Gm/50 Ml)) 12.5 gm IV ONCE ONE Stop: 11/10/16 10:20 Albumin Human (Albumin Human 25% (12.5 Gm/50 Ml)) 12.5 gm IV ONCE ONE Stop: 11/10/16 10:20 Epoetin Sly (Procrit) 10,000 [place] [facility] [place] Admin: 11/10/16 08:35 Dose: Not Given Norepinephrine Bitartrate 8 mg (/ Dextrose) 258 mls @ 7.74 mls/hr IV .Q24H PRN ; Protocol; 4 MCG/MIN PRN Reason: TITRATE PER MD ORDER Last Titration: 11/08/16 05:24 Dose: 2 mcg/min, 3.87 mls/hr Dextrose (Dextrose 10% In Water) 1,000 mls @ 30 mls/hr IV .Q24H [facility] Last Admin: 11/09/16 18:00 Dose: 30 mls/hr Insulin Human Regular (Novolin R) 0 unit SC Q6 [facility] PRN Reason: Protocol Last Admin: 11/10/16 07:00 Dose: 1 unit Levothyroxine Sodium (Levothyroxine) 150 mcg IVP DAILY [facility] Last Admin: 11/09/16 09:13 Dose: 150 mcg Pantoprazole Sodium (Protonix Inj) 40 mg IVP DAILY [facility] Last Admin: 11/09/16 09:12 Dose: 40 mg - Labs Labs: 11/10/16 06:00 11/10/16 06:00 PT 19.5 SECONDS (9.7-12.2) H 10/28/16 08:07 INR 1.7 10/28/16 08:07 APTT 49 SECONDS (21-34) H 10/25/16 16:33 - Constitutional Appears: No Acute Distress, Confused, Chronically Ill - Head Exam Head Exam: ATRAUMATIC, NORMAL INSPECTION - Eye Exam Eye Exam: EOMI, Normal appearance - Neck Exam Neck Exam: Normal Inspection. absent: Tenderness - Respiratory Exam Respiratory Exam: Rales, NORMAL BREATHING PATTERN - Cardiovascular Exam Cardiovascular Exam: REGULAR RHYTHM, +S1 - GI/Abdominal Exam GI & Abdominal Exam: Soft. absent: Tenderness - Extremities Exam Extremities Exam: Normal Inspection. absent: Tenderness - Neurological Exam Neurological Exam: Altered, Motor Sensory Deficit - Skin Skin Exam: Dry, Warm Assessment and Plan (1) Lower GI bleed Status: Acute (2) Diabetic nephropathy with proteinuria Status: Acute (3) CHF (congestive heart failure) Status: Chronic (4) ESRD (end stage renal disease) on dialysis Status: Chronic - Assessment and Plan (Free Text) Plan: Dialysis now Change to TTS schedule Weaning as per ICU team Monitor for further GI bleeding
[2016-11-10] MEDS ORDERED: Albumin Human 25% (12.5 gm/50 ml) IV ONE ×3 (11:00→11:30)
[2016-11-10] MEDS: Levothyroxine 200 mcg (0.2 mg) Inj IVP SCH (11:00)
--- NOTE | 2016-11-10 13:19 | CP.CCUPN ---
<Gretchen Brewer - Last Filed: 11/10/16 13:17> CCU Subjective - Physician Review Subjective (Free Text): Patient was seen and examined in the AM at bedside. Patient is non-verbal. Per nurse patient has stopped having bloody bowel movements since 11/08. Patient is currently off Norepinephrine for blood pressure and it is stable. NGT was replaced 11/09 and tube feedings started 11/09. Patient did not receive dialysis yesterday but will be receiving dialysis 11/10. 11/10/16 13:17 CCU Objective - Vital Signs / Intake & Output Vital Signs (Last 4 hours): Vital Signs Temp Pulse Pulse Resp BP BP Pulse Ox 11/10/16 12:40 97/42 L 11/10/16 12:10 97/46 L 11/10/16 12:00 97.4 F L 93 H 19 100 11/10/16 11:59 77 20 94/40 L 11/10/16 11:44 78 20 95/40 L 100 11/10/16 11:40 96/43 L 11/10/16 11:29 78 23 96/43 L 100 11/10/16 11:14 79 17 93/40 L 11/10/16 11:10 101/42 L 11/10/16 11:00 77 19 100 11/10/16 10:59 78 22 101/42 L 100 11/10/16 10:44 76 21 92/41 L 100 11/10/16 10:40 92/41 L 11/10/16 10:29 74 22 86/38 L 11/10/16 10:25 86/38 L 11/10/16 10:14 75 22 85/34 L 11/10/16 10:10 85/34 L 11/10/16 10:02 76 20 86/37 L 100 11/10/16 10:01 75 21 70/30 L 100 11/10/16 10:00 71 19 68/22 L 100 11/10/16 09:55 86/37 L 11/10/16 09:44 72 19 106/39 L 100 11/10/16 09:41 73 22 97/40 L 100 11/10/16 09:40 97.4 F L 79 19 106/39 L 100 11/10/16 09:30 97.4 F L 79 19 96/35 L 11/10/16 09:29 73 20 96/35 L 100 11/10/16 09:28 72 22 94/37 L 100 11/10/16 09:27 73 18 96/36 L 100 11/10/16 09:26 73 22 97/37 L 100 11/10/16 09:18 74 21 94/40 L 100 Intake and Output (Last 8hrs): Intake & Output 11/09/16 11/10/16 11/10/16 22:59 06:59 14:59 Intake Total 520 520 390 Balance 520 520 390 Weight 119 lb 1 oz Intake: Intake, IV Amount 240 240 180 Right Proximal Port PICC 240 240 180 Tube Feeding 280 280 210 Other: # Bowel Movements 0 0 - Physical Exam Physical Exam Limitations: Positive for: Altered Mental Status Head: Positive for: Atraumatic Extroacular Muscles: Positive for: EOMI Conjunctiva: Positive for: Icteric Mouth: Positive for: Dry Nose (Internal): Positive for: Other (NGT was replaced 11/[address]) Neck: Positive for: Other (trach in place) Respiratory/Chest: Positive for: Rhonchi. Negative for: Clear to Auscultation, Respiratory Distress, Accessory Muscle Use Cardiovascular: Positive for: Regular Rate and Rhythm, Normal S1, S2. Negative for: Murmurs, Tachycardic, Bradycardic Abdomen: Negative for: Peritoneal Signs, Hernias Rectal: Negative for: Gross Blood Upper Extremity: Positive for: Cyanosis, Temperature Abnormalties, Other (cold fingers, ischemic 3rd digit on left hand ). Negative for: NORMAL PULSES, Neurovascularly Intact, Capillary Refill < 2s Lower Extremity: Positive for: Edema Neurological: Negative for: GCS=15, Speech Normal Skin: Positive for: Cold (bilateral hands), Other (gangrenous fingertips). Negative for: Warm Psychiatric: Positive for: Other (non-verbal ). Negative for: Alert, Oriented x 3, Normal Insight, Normal Concentration - Medications Active Medications: Active Medications Generic Name Dose Route Start Last Admin Trade Name Freq PRN Reason Stop Dose Admin Acetaminophen 650 mg 11/03/16 12:38 11/03/16 12:55 Tylenol 650mg/20.3ml Solution Ud PO 650 mg Q6 PRN Administration Temperature Epoetin Sly 10,000 unit 11/02/16 09:30 11/10/16 08:35 Procrit IV Not Given MWF [facility] Norepinephrine Bitartrate 8 mg 258 mls @ 7.74 mls/hr 11/02/16 10:44 11/08/16 05:24 / Dextrose IV 2 mcg/min .Q24H PRN 3.87 mls/hr TITRATE PER MD ORDER Titration Protocol 4 MCG/MIN Dextrose 1,000 mls @ 30 mls/hr 11/05/16 18:00 11/09/16 18:00 Dextrose 10% In Water IV 30 mls/hr .Q24H [facility] Administration Insulin Human Regular 0 unit 10/26/16 06:00 11/10/16 12:39 Novolin R SC Not Given Q6 [facility] Protocol Levothyroxine Sodium 150 mcg 11/08/16 10:00 11/10/16 11:00 Levothyroxine IVP 150 mcg DAILY [facility] Administration Pantoprazole Sodium 40 mg 11/05/16 11:15 11/10/16 11:00 Protonix Inj IVP 40 mg DAILY [facility] Administration - Patient Studies Lab Studies: Lab Studies 11/10/16 11/10/16 11/10/16 Range/Units 11:17 06:05 06:00 WBC (4.8-10.8) K/uL RBC (3.80-5.20) Mil/uL Hgb (11.0-16.0) g/dL Hct (34.0-47.0) % MCV (81.0-99.0) fL MCH (27.0-31.0) pg MCHC (33.0-37.0) g/dL RDW (11.5-14.5) % Plt Count (130-400) K/uL MPV (7.2-11.7) fL Neut % (Auto) (50.0-75.0) % Lymph % (Auto) (20.0-40.0) % Cole % (Auto) (0.0-10.0) % Eos % (Auto) (0.0-4.0) % Baso % (Auto) (0.0-2.0) % Neut # (1.8-7.0) K/uL Lymph # (1.0-4.3) K/uL Cole # (0.0-0.8) K/uL Eos # (0.0-0.7) K/uL Baso # (0.0-0.2) K/uL Neutrophils % (Manual) (50-75) % Band Neutrophils % (0-2) % Lymphocytes % (Manual) (20-40) % Monocytes % (Manual) (0-10) % Eosinophils % (Manual) (0-4) % Basophils % (Manual) (0-2) % Toxic Granulation Platelet Estimate (NORMAL) Large Platelets Giant Platelets Anisocytosis (manual) Sodium 126 L (132-148) mmol/L Potassium 4.0 (3.6-5.2) mmol/L Chloride 92 L (98-107) mmol/L Carbon Dioxide 23 (22-30) mmol/L Anion Gap 15 (10-20) BUN 34 H (7-17) mg/dL Creatinine 2.2 H (0.7-1.2) MG/DL Est GFR ( Amer) 26 Est GFR (Non-Af Amer) 22 POC Glucose (mg/dL) 137 H 159 H (65-110) mg/dL Random Glucose 174 H (65-105) mg/dL Calcium 7.7 L (8.6-10.4) mg/dl Phosphorus 4.2 (2.5-4.5) mg/dL Magnesium 1.7 (1.6-2.3) mg/dL Total Bilirubin 5.7 H (0.2-1.3) mg/dL AST 52 H (14-36) U/L ALT 30 (9-52) U/L Alkaline Phosphatase 263 H (38-126) U/L Total Protein 6.1 L (6.3-8.3) g/dL Albumin 2.1 L (3.5-5.0) g/dL Globulin 4.0 H (2.2-3.9) gm/dL Albumin/Globulin Ratio 0.5 L (1.0-2.1) 11/10/16 11/09/16 11/09/16 Range/Units 06:00 23:40 17:52 WBC 12.4 H (4.8-10.8) K/uL RBC 3.50 L (3.80-5.20) Mil/uL Hgb 10.5 L (11.0-16.0) g/dL Hct 31.5 L (34.0-47.0) % MCV 90.1 (81.0-99.0) fL MCH 30.0 (27.0-31.0) pg MCHC 33.3 (33.0-37.0) g/dL RDW 16.9 H (11.5-14.5) % Plt Count 89 L (130-400) K/uL MPV 9.8 (7.2-11.7) fL Neut % (Auto) 82.5 H (50.0-75.0) % Lymph % (Auto) 9.6 L (20.0-40.0) % Cole % (Auto) 5.9 (0.0-10.0) % Eos % (Auto) 1.4 (0.0-4.0) % Baso % (Auto) 0.6 (0.0-2.0) % Neut # 10.3 H (1.8-7.0) K/uL Lymph # 1.2 (1.0-4.3) K/uL Cole # 0.7 (0.0-0.8) K/uL Eos # 0.2 (0.0-0.7) K/uL Baso # 0.1 (0.0-0.2) K/uL Neutrophils % (Manual) 60 (50-75) % Band Neutrophils % 23 H* (0-2) % Lymphocytes % (Manual) 10 L (20-40) % Monocytes % (Manual) 4 (0-10) % Eosinophils % (Manual) 1 (0-4) % Basophils % (Manual) 2 (0-2) % Toxic Granulation Present Platelet Estimate Decreased L (NORMAL) Large Platelets Present Giant Platelets Present Anisocytosis (manual) Slight Sodium (132-148) mmol/L Potassium (3.6-5.2) mmol/L Chloride (98-107) mmol/L Carbon Dioxide (22-30) mmol/L Anion Gap (10-20) BUN (7-17) mg/dL Creatinine (0.7-1.2) MG/DL Est GFR ( Amer) Est GFR (Non-Af Amer) POC Glucose (mg/dL) 121 H 88 (65-110) mg/dL Random Glucose (65-105) mg/dL Calcium (8.6-10.4) mg/dl Phosphorus (2.5-4.5) mg/dL Magnesium (1.6-2.3) mg/dL Total Bilirubin (0.2-1.3) mg/dL AST (14-36) U/L ALT (9-52) U/L Alkaline Phosphatase (38-126) U/L Total Protein (6.3-8.3) g/dL Albumin (3.5-5.0) g/dL Globulin (2.2-3.9) gm/dL Albumin/Globulin Ratio (1.0-2.1) Laboratory Results - last 24 hr 11/09/16 11/09/16 11/10/16 17:52 23:40 06:00 WBC 12.4 H RBC 3.50 L Hgb 10.5 L Hct 31.5 L MCV 90.1 MCH 30.0 MCHC 33.3 RDW 16.9 H Plt Count 89 L MPV 9.8 Neut % (Auto) 82.5 H Lymph % (Auto) 9.6 L Cole % (Auto) 5.9 Eos % (Auto) 1.4 Baso % (Auto) 0.6 Neut # 10.3 H Lymph # 1.2 Cole # 0.7 Eos # 0.2 Baso # 0.1 Neutrophils % (Manual) 60 Band Neutrophils % 23 H* Lymphocytes % (Manual) 10 L Monocytes % (Manual) 4 Eosinophils % (Manual) 1 Basophils % (Manual) 2 Toxic Granulation Present Platelet Estimate Decreased L Large Platelets Present Giant Platelets Present Anisocytosis (manual) Slight Sodium Potassium Chloride Carbon Dioxide Anion Gap BUN Creatinine Est GFR ( Amer) Est GFR (Non-Af Amer) POC Glucose (mg/dL) 88 121 H Random Glucose Calcium Phosphorus Magnesium Total Bilirubin AST ALT Alkaline Phosphatase Total Protein Albumin Globulin Albumin/Globulin Ratio 11/10/16 11/10/16 11/10/16 06:00 06:05 11:17 WBC RBC Hgb Hct MCV MCH MCHC RDW Plt Count MPV Neut % (Auto) Lymph % (Auto) Cole % (Auto) Eos % (Auto) Baso % (Auto) Neut # Lymph # Cole # Eos # Baso # Neutrophils % (Manual) Band Neutrophils % Lymphocytes % (Manual) Monocytes % (Manual) Eosinophils % (Manual) Basophils % (Manual) Toxic Granulation Platelet Estimate Large Platelets Giant Platelets Anisocytosis (manual) Sodium 126 L Potassium 4.0 Chloride 92 L Carbon Dioxide 23 Anion Gap 15 BUN 34 H Creatinine 2.2 H Est GFR ( Amer) 26 Est GFR (Non-Af Amer) 22 POC Glucose (mg/dL) 159 H 137 H Random Glucose 174 H Calcium 7.7 L Phosphorus 4.2 Magnesium 1.7 Total Bilirubin 5.7 H AST 52 H ALT 30 Alkaline Phosphatase 263 H Total Protein 6.1 L Albumin 2.1 L Globulin 4.0 H Albumin/Globulin Ratio 0.5 L Fingerstick Blood Sugar Results: 137 Review of Systems - Review of Systems Systems not reviewed;Unavailable: Altered Mental Status (patient is non-verbal) Assessment/Plan - Assessment and Plan (Free Text) Assessment: 76F admitted for GI bleed; s/p flexible sigmoidoscopy and multiple transfusions. Plan: Neuro: - GCS 9T - at baseline likely 2/2 metabolic encephalopathy - Patient in non-verbal Pulm: - Chronic Respiratory failure - Trach on vent - currently on Cpap - will attempt a trach collar today 11/09 -CT chest shows b/l pleural effusions R>L with subsegmental atelectasis CV: - Septic Shock - BP mildly improved - systolic now 100-110s - Norepinephrine is currently stopped 11/09 - Tylenol 650mg IV - Dr Long on board. Pt high risk for any procedure but can proceed if clinical indicated - Left hand with ischemic necrosis - consult placed for vasc Dr Buck - likely nothing to do Heme: - Anemia of Chronic Disease and critical illness - H/H (11/10): 10.5/31.5; H/H (11/09):10.1/30.8; H/H (11/08): 10.2/29.7; H/H (11/07) : 6.3/19.2 - Patient received 2 units and 1 unit of FFP (11/07) - will cont to monitor H/H and for rectal bleed Renal: - ESRD - HD as per Dr Mcfarland - Dr Trent on consult --> help appreciated - Dailysis was not done yesterday (11/09) - Dialysis 11/10 Endo: -Insulin sliding scale - patient's daughter refuses insulin GI: - - CT shows significant colitis at rectosigmoid junction - Ischemic colitis with hemorrhage, not a candidate for intervention as this would be medically futile. - Flexible sigmoidoscopy at bedside 10/28/16 shows ischemic colitis - Fam declined sx - NGT removed 11/05/16 per patient's daughter request - NGT was replaced 11/07 - Patient pulled out the Dubhoff tube overnight - Dubhoff was replaced 11/09 - Protonix drip for GI bleed - GI Consult: Dr. Young --> help appreciated ID: - Septic Shock - Meropenem was discontinued 11/07 (patient received a 13 day course) - Bands increased to 23 11/10 Pt chronically ill, prognosis very poor DVT proph - SCDs, no anti-coagulation due to acute bleed GI proph - Protonix 40mg IVP daily Care Management Consult --> help appreciated - [employer] Care Code status - Full Case discussed with Dr. Curry Brewer PGY-1 <Ortiz Zapien - Last Filed: 11/10/16 16:40> CCU Objective - Vital Signs / Intake & Output Vital Signs (Last 4 hours): Vital Signs Temp Pulse Pulse Resp BP BP Pulse Ox 11/10/16 15:22 85 11 L 110/49 L 100 11/10/16 15:00 81 14 100 11/10/16 14:22 80 14 113/50 L 100 11/10/16 14:00 81 14 100 11/10/16 13:22 81 23 103/41 L 100 11/10/16 13:15 78 22 85/37 L 100 11/10/16 13:14 78 15 84/38 L 11/10/16 13:10 97.4 F L 80 19 92/37 L 100 11/10/16 13:00 81 17 100 11/10/16 12:59 82 23 92/37 L 100 11/10/16 12:44 83 23 95/43 L 100 11/10/16 12:40 97/42 L Intake and Output (Last 8hrs): Intake & Output 11/10/16 11/10/16 11/10/16 06:59 14:59 22:59 Intake Total 520 520 65 Balance 520 520 65 Weight 119 lb 1 oz Intake: Intake, IV Amount 240 240 30 Right Proximal Port PICC 240 240 30 Tube Feeding 280 280 35 Other: # Bowel Movements 1 - Medications Active Medications: Active Medications Generic Name Dose Route Start Last Admin Trade Name Freq PRN Reason Stop Dose Admin Acetaminophen 650 mg 11/03/16 12:38 11/03/16 12:55 Tylenol 650mg/20.3ml Solution Ud PO 650 mg Q6 PRN Administration Temperature Epoetin Sly 10,000 unit 11/02/16 09:30 11/10/16 08:35 Procrit IV Not Given MWF [facility] Norepinephrine Bitartrate 8 mg 258 mls @ 7.74 mls/hr 11/02/16 10:44 11/08/16 05:24 / Dextrose IV 2 mcg/min .Q24H PRN 3.87 mls/hr TITRATE PER MD ORDER Titration Protocol 4 MCG/MIN Dextrose 1,000 mls @ 30 mls/hr 11/05/16 18:00 11/09/16 18:00 Dextrose 10% In Water IV 30 mls/hr .Q24H [facility] Administration Insulin Human Regular 0 unit 10/26/16 06:00 11/10/16 12:39 Novolin R SC Not Given Q6 [facility] Protocol Levothyroxine Sodium 150 mcg 11/08/16 10:00 11/10/16 11:00 Levothyroxine IVP 150 mcg DAILY [facility] Administration Pantoprazole Sodium 40 mg 11/05/16 11:15 11/10/16 11:00 Protonix Inj IVP 40 mg DAILY [facility] Administration - Patient Studies Lab Studies: Lab Studies 11/10/16 11/10/16 11/10/16 Range/Units 11:17 06:05 06:00 WBC (4.8-10.8) K/uL RBC (3.80-5.20) Mil/uL Hgb (11.0-16.0) g/dL Hct (34.0-47.0) % MCV (81.0-99.0) fL MCH (27.0-31.0) pg MCHC (33.0-37.0) g/dL RDW (11.5-14.5) % Plt Count (130-400) K/uL MPV (7.2-11.7) fL Neut % (Auto) (50.0-75.0) % Lymph % (Auto) (20.0-40.0) % Cole % (Auto) (0.0-10.0) % Eos % (Auto) (0.0-4.0) % Baso % (Auto) (0.0-2.0) % Neut # (1.8-7.0) K/uL Lymph # (1.0-4.3) K/uL Cole # (0.0-0.8) K/uL Eos # (0.0-0.7) K/uL Baso # (0.0-0.2) K/uL Neutrophils % (Manual) (50-75) % Band Neutrophils % (0-2) % Lymphocytes % (Manual) (20-40) % Monocytes % (Manual) (0-10) % Eosinophils % (Manual) (0-4) % Basophils % (Manual) (0-2) % Toxic Granulation Platelet Estimate (NORMAL) Large Platelets Giant Platelets Anisocytosis (manual) Sodium 126 L (132-148) mmol/L Potassium 4.0 (3.6-5.2) mmol/L Chloride 92 L (98-107) mmol/L Carbon Dioxide 23 (22-30) mmol/L Anion Gap 15 (10-20) BUN 34 H (7-17) mg/dL Creatinine 2.2 H (0.7-1.2) MG/DL Est GFR ( Amer) 26 Est GFR (Non-Af Amer) 22 POC Glucose (mg/dL) 137 H 159 H (65-110) mg/dL Random Glucose 174 H (65-105) mg/dL Calcium 7.7 L (8.6-10.4) mg/dl Phosphorus 4.2 (2.5-4.5) mg/dL Magnesium 1.7 (1.6-2.3) mg/dL Total Bilirubin 5.7 H (0.2-1.3) mg/dL AST 52 H (14-36) U/L ALT 30 (9-52) U/L Alkaline Phosphatase 263 H (38-126) U/L Total Protein 6.1 L (6.3-8.3) g/dL Albumin 2.1 L (3.5-5.0) g/dL Globulin 4.0 H (2.2-3.9) gm/dL Albumin/Globulin Ratio 0.5 L (1.0-2.1) 11/10/16 11/09/16 11/09/16 Range/Units 06:00 23:40 17:52 WBC 12.4 H (4.8-10.8) K/uL RBC 3.50 L (3.80-5.20) Mil/uL Hgb 10.5 L (11.0-16.0) g/dL Hct 31.5 L (34.0-47.0) % MCV 90.1 (81.0-99.0) fL MCH 30.0 (27.0-31.0) pg MCHC 33.3 (33.0-37.0) g/dL RDW 16.9 H (11.5-14.5) % Plt Count 89 L (130-400) K/uL MPV 9.8 (7.2-11.7) fL Neut % (Auto) 82.5 H (50.0-75.0) % Lymph % (Auto) 9.6 L (20.0-40.0) % Cole % (Auto) 5.9 (0.0-10.0) % Eos % (Auto) 1.4 (0.0-4.0) % Baso % (Auto) 0.6 (0.0-2.0) % Neut # 10.3 H (1.8-7.0) K/uL Lymph # 1.2 (1.0-4.3) K/uL Cole # 0.7 (0.0-0.8) K/uL Eos # 0.2 (0.0-0.7) K/uL Baso # 0.1 (0.0-0.2) K/uL Neutrophils % (Manual) 60 (50-75) % Band Neutrophils % 23 H* (0-2) % Lymphocytes % (Manual) 10 L (20-40) % Monocytes % (Manual) 4 (0-10) % Eosinophils % (Manual) 1 (0-4) % Basophils % (Manual) 2 (0-2) % Toxic Granulation Present Platelet Estimate Decreased L (NORMAL) Large Platelets Present Giant Platelets Present Anisocytosis (manual) Slight Sodium (132-148) mmol/L Potassium (3.6-5.2) mmol/L Chloride (98-107) mmol/L Carbon Dioxide (22-30) mmol/L Anion Gap (10-20) BUN (7-17) mg/dL Creatinine (0.7-1.2) MG/DL Est GFR ( Amer) Est GFR (Non-Af Amer) POC Glucose (mg/dL) 121 H 88 (65-110) mg/dL Random Glucose (65-105) mg/dL Calcium (8.6-10.4) mg/dl Phosphorus (2.5-4.5) mg/dL Magnesium (1.6-2.3) mg/dL Total Bilirubin (0.2-1.3) mg/dL AST (14-36) U/L ALT (9-52) U/L Alkaline Phosphatase (38-126) U/L Total Protein (6.3-8.3) g/dL Albumin (3.5-5.0) g/dL Globulin (2.2-3.9) gm/dL Albumin/Globulin Ratio (1.0-2.1) Laboratory Results - last 24 hr 11/09/16 11/09/16 11/10/16 17:52 23:40 06:00 WBC 12.4 H RBC 3.50 L Hgb 10.5 L Hct 31.5 L MCV 90.1 MCH 30.0 MCHC 33.3 RDW 16.9 H Plt Count 89 L MPV 9.8 Neut % (Auto) 82.5 H Lymph % (Auto) 9.6 L Cole % (Auto) 5.9 Eos % (Auto) 1.4 Baso % (Auto) 0.6 Neut # 10.3 H Lymph # 1.2 Cole # 0.7 Eos # 0.2 Baso # 0.1 Neutrophils % (Manual) 60 Band Neutrophils % 23 H* Lymphocytes % (Manual) 10 L Monocytes % (Manual) 4 Eosinophils % (Manual) 1 Basophils % (Manual) 2 Toxic Granulation Present Platelet Estimate Decreased L Large Platelets Present Giant Platelets Present Anisocytosis (manual) Slight Sodium Potassium Chloride Carbon Dioxide Anion Gap BUN Creatinine Est GFR ( Amer) Est GFR (Non-Af Amer) POC Glucose (mg/dL) 88 121 H Random Glucose Calcium Phosphorus Magnesium Total Bilirubin AST ALT Alkaline Phosphatase Total Protein Albumin Globulin Albumin/Globulin Ratio 11/10/16 11/10/16 11/10/16 06:00 06:05 11:17 WBC RBC Hgb Hct MCV MCH MCHC RDW Plt Count MPV Neut % (Auto) Lymph % (Auto) Cole % (Auto) Eos % (Auto) Baso % (Auto) Neut # Lymph # Cole # Eos # Baso # Neutrophils % (Manual) Band Neutrophils % Lymphocytes % (Manual) Monocytes % (Manual) Eosinophils % (Manual) Basophils % (Manual) Toxic Granulation Platelet Estimate Large Platelets Giant Platelets Anisocytosis (manual) Sodium 126 L Potassium 4.0 Chloride 92 L Carbon Dioxide 23 Anion Gap 15 BUN 34 H Creatinine 2.2 H Est GFR ( Amer) 26 Est GFR (Non-Af Amer) 22 POC Glucose (mg/dL) 159 H 137 H Random Glucose 174 H Calcium 7.7 L Phosphorus 4.2 Magnesium 1.7 Total Bilirubin 5.7 H AST 52 H ALT 30 Alkaline Phosphatase 263 H Total Protein 6.1 L Albumin 2.1 L Globulin 4.0 H Albumin/Globulin Ratio 0.5 L Assessment/Plan (1) Leucocytosis Current Visit: Yes Status: Acute Attending/Attestation - Attestation I have personally seen and examined this patient.: Yes I have fully participated in the care of the patient.: Yes I have reviewed all pertinent clinical information: Yes Notes (Text): 11/10/16 16:37 I have seen and examined the patient. Medical records, lab studies, and imaging were reviewed by me and a management plan was formulated on multidisciplinary rounds with resident Dr. Brewer. I agree with their above documented assessment and plan. Patient is clinically stable. Now on pressure support. She is no longer bleeding. She is off pressors. She has severe protein calorie malnutrition with cachexia. She will need a laborer marine terminal feeding tube, but is a high risk candidate for placement. Will transfer patient to LTAC. Her prognosis is extremely poor, and will not recover. Critical Care Time 35 minutes. Multi-disciplinary rounds were performed with house staff, nursing, speech therapy, respiratory therapy, pharmacy and nutrition with integrated input from the primary team/attending and other consulting services. The documented time is cumulative and includes review of patient data/exams/labs/chart review and examination of the patient on rounds and throughout the day; time is exclusive of any procedures or teaching time.
--- NOTE | 2016-11-10 21:16 | CP.PCM.PN ---
Subjective - Date & Time of Evaluation Date of Evaluation: 11/10/16 Time of Evaluation: 18:25 - Subjective Subjective: Patient seen and evaluated More awake and looks comfortable No cardiac events noted Objective - Vital Signs/Intake and Output Vital Signs (last 24 hours): Temp Pulse Resp BP Pulse Ox 97.3 F L 94 H 21 88/61 L 100 11/10/16 20:00 11/10/16 20:23 11/10/16 20:23 11/10/16 20:23 11/10/16 20:00 Intake and Output: 11/10/16 11/11/16 18:59 06:59 Intake Total 780 130 Balance 780 130 - Medications Medications: Current Medications Acetaminophen (Tylenol 650mg/20.3ml Solution Ud) 650 mg PO Q6 PRN PRN Reason: Temperature Last Admin: 11/03/16 12:55 Dose: 650 mg Epoetin Sly (Procrit) 10,000 unit IV MWF [facility] Last Admin: 11/10/16 08:35 Dose: Not Given Norepinephrine Bitartrate 8 mg (/ Dextrose) 258 mls @ 7.74 mls/hr IV .Q24H PRN ; Protocol; 4 MCG/MIN PRN Reason: TITRATE PER MD ORDER Last Titration: 11/08/16 05:24 Dose: 2 mcg/min, 3.87 mls/hr Dextrose (Dextrose 10% In Water) 1,000 mls @ 30 mls/hr IV .Q24H [facility] Last Admin: 11/10/16 19:51 Dose: Not Given Insulin Human Regular (Novolin R) 0 unit SC Q6 [facility] PRN Reason: Protocol Last Admin: 11/10/16 12:39 Dose: Not Given Levothyroxine Sodium (Levothyroxine) 150 mcg IVP DAILY [facility] Last Admin: 11/10/16 11:00 Dose: 150 mcg Pantoprazole Sodium (Protonix Inj) 40 mg IVP DAILY [facility] Last Admin: 11/10/16 11:00 Dose: 40 mg - Labs Labs: 11/10/16 06:00 11/10/16 06:00 PT 19.5 SECONDS (9.7-12.2) H 10/28/16 08:07 INR 1.7 10/28/16 08:07 APTT 49 SECONDS (21-34) H 10/25/16 16:33
[2016-11-11] MEDS: (Novolin R) Insulin Human Regular 100 units/ml vial SC SCH ×4 (06:20→18:13)
[2016-11-11 06:40] LABS: BASO # 0.1 K/uL (0.0-0.2); BASO % 0.7 % (0.0-2.0); EOS # 0.3 K/uL (0.0-0.7); EOS % 2.1 % (0.0-4.0); HEMATOCRIT 28.9 % (34.0-47.0); LYMPH % 7.9 % (20.0-40.0); MEAN CELL VOLUME 91.5 fL (81.0-99.0); MEAN CORPUSCULAR HEMOGLOBIN 29.6 pg (27.0-31.0); MEAN CORPUSCULAR HGB CONC 32.4 g/dL (33.0-37.0); MEAN PLATELET VOLUME 10.1 fL (7.2-11.7); MONO # 0.8 K/uL (0.0-0.8); MONO % 6.4 % (0.0-10.0); PLATELET COUNT 60 K/uL (130-400); RED CELL DISTRIBUTION WIDTH 16.9 % (11.5-14.5)
[2016-11-11 06:59] LABS: ALB/GLOB RATIO 0.6 (1.0-2.1); BILIRUBIN,TOTAL 4.9 mg/dL (0.2-1.3); CALCIUM 7.4 mg/dl (8.6-10.4); MAGNESIUM 1.6 mg/dL (1.6-2.3); PHOSPHOROUS 2.9 mg/dL (2.5-4.5); POTASSIUM 3.5 mmol/L (3.6-5.2); TOTAL PROTEIN 5.8 g/dL (6.3-8.3)
[2016-11-11 08:16] LABS: BASOPHIL 1 % (0-2); EOSINOPHIL 1 % (0-4); NEUTROPHIL 80 % (50-75); TOTAL CELLS COUNTED 100
[2016-11-11 08:17] LABS: LARGE PLATELETS PRESENT
[2016-11-11] MEDS: Levothyroxine 200 mcg (0.2 mg) Inj IVP SCH (09:00)
--- NOTE | 2016-11-11 13:22 | CP.PCM.PN ---
Subjective - Date & Time of Evaluation Date of Evaluation: 11/11/16 Time of Evaluation: 13:20 - Subjective Subjective: s/p dialysis 11/10- UF 2500ml Awake now- appears alert On vent- trached No rectal bleeding or diarrhea Discussed with daughter- plan on repeat HD in AM Objective - Vital Signs/Intake and Output Vital Signs (last 24 hours): Temp Pulse Resp BP Pulse Ox 97.6 F 75 15 94/36 L 100 11/11/16 12:00 11/11/16 12:00 11/11/16 12:00 11/11/16 11:22 11/11/16 12:00 Intake and Output: 11/11/16 11/11/16 06:59 18:59 Intake Total 370 250 Balance 370 250 - Medications Medications: Current Medications Acetaminophen (Tylenol 650mg/20.3ml Solution Ud) 650 mg PO Q6 PRN PRN Reason: Temperature Last Admin: 11/03/16 12:55 Dose: 650 mg Epoetin Sly (Procrit) 10,000 unit IV TTS [facility] Norepinephrine Bitartrate 8 mg (/ Dextrose) 258 mls @ 7.74 mls/hr IV .Q24H PRN ; Protocol; 4 MCG/MIN PRN Reason: TITRATE PER MD ORDER Last Titration: 11/08/16 05:24 Dose: 2 mcg/min, 3.87 mls/hr Insulin Human Regular (Novolin R) 0 unit SC Q6 [facility] PRN Reason: Protocol Last Admin: 11/11/16 12:08 Dose: Not Given Levothyroxine Sodium (Levothyroxine) 150 mcg IVP DAILY [facility] Last Admin: 11/11/16 09:00 Dose: 150 mcg Pantoprazole Sodium (Protonix Inj) 40 mg IVP DAILY [facility] Last Admin: 11/11/16 09:10 Dose: 40 mg - Labs Labs: 11/11/16 06:31 11/11/16 06:31 PT 19.5 SECONDS (9.7-12.2) H 10/28/16 08:07 INR 1.7 10/28/16 08:07 APTT 49 SECONDS (21-34) H 10/25/16 16:33 - Constitutional Appears: No Acute Distress, Confused, Chronically Ill - Head Exam Head Exam: ATRAUMATIC, NORMAL INSPECTION - Eye Exam Eye Exam: EOMI, Normal appearance - Neck Exam Neck Exam: Normal Inspection. absent: Tenderness - Respiratory Exam Respiratory Exam: Decreased Breath Sounds, Respiratory Distress - Cardiovascular Exam Cardiovascular Exam: REGULAR RHYTHM, +S1 - GI/Abdominal Exam GI & Abdominal Exam: Soft. absent: Tenderness - Extremities Exam Extremities Exam: Normal Inspection. absent: Tenderness - Neurological Exam Neurological Exam: Awake, CN II-XII Intact - Skin Skin Exam: Dry, Warm Assessment and Plan (1) Lower GI bleed Status: Acute (2) Diabetic nephropathy with proteinuria Status: Acute (3) CHF (congestive heart failure) Status: Chronic (4) ESRD (end stage renal disease) on dialysis Status: Chronic - Assessment and Plan (Free Text) Plan: Repeat dialysis in AM; likely repeat 11/14 Monitor for bleeding Blood transfusion as needed/ ESAs for now
--- NOTE | 2016-11-11 21:47 | CP.PCM.PN ---
Subjective - Date & Time of Evaluation Date of Evaluation: 11/11/16 Time of Evaluation: 08:10 - Subjective Subjective: Patient seen and evaluated Clinically looks better Objective - Vital Signs/Intake and Output Vital Signs (last 24 hours): Temp Pulse Resp BP Pulse Ox 97.1 F L 78 18 100/40 L 100 11/11/16 20:00 11/11/16 21:00 11/11/16 21:00 11/11/16 20:22 11/11/16 21:00 Intake and Output: 11/11/16 11/12/16 18:59 06:59 Intake Total 460 60 Output Total 0 Balance 460 60 - Medications Medications: Current Medications Acetaminophen (Tylenol 650mg/20.3ml Solution Ud) 650 mg PO Q6 PRN PRN Reason: Temperature Last Admin: 11/03/16 12:55 Dose: 650 mg Albumin Human (Albumin Human 25% (12.5 Gm/50 Ml)) 12.5 gm IV TTS PRN PRN Reason: hypotension Stop: 11/24/16 10:01 Epoetin Sly (Procrit) 10,000 unit IV TTS [facility] Norepinephrine Bitartrate 8 mg (/ Dextrose) 258 mls @ 7.74 mls/hr IV .Q24H PRN ; Protocol; 4 MCG/MIN PRN Reason: TITRATE PER MD ORDER Last Titration: 11/08/16 05:24 Dose: 2 mcg/min, 3.87 mls/hr Dextrose (Dextrose 10% In Water) 1,000 mls @ 30 mls/hr IV .Q24H [facility] Last Admin: 11/11/16 17:03 Dose: Not Given Insulin Human Regular (Novolin R) 0 unit SC Q6 [facility] PRN Reason: Protocol Last Admin: 11/11/16 18:13 Dose: Not Given Levothyroxine Sodium (Levothyroxine) 150 mcg IVP DAILY [facility] Last Admin: 11/11/16 09:00 Dose: 150 mcg Pantoprazole Sodium (Protonix Inj) 40 mg IVP DAILY [facility] Last Admin: 11/11/16 09:10 Dose: 40 mg - Labs Labs: 11/11/16 06:31 11/11/16 06:31 PT 19.5 SECONDS (9.7-12.2) H 10/28/16 08:07 INR 1.7 10/28/16 08:07 APTT 49 SECONDS (21-34) H 10/25/16 16:33
[2016-11-12] MEDS: (Novolin R) Insulin Human Regular 100 units/ml vial SC SCH ×5 (05:29→23:32)
[2016-11-12 06:47] LABS: BASO # 0.1 K/uL (0.0-0.2); EOS # 0.2 K/uL (0.0-0.7); EOS % 1.7 % (0.0-4.0); HEMATOCRIT 29.7 % (34.0-47.0); LYMPH # 1.3 K/uL (1.0-4.3); LYMPH % 12.4 % (20.0-40.0); MEAN CELL VOLUME 91.8 fL (81.0-99.0); MEAN CORPUSCULAR HGB CONC 32.7 g/dL (33.0-37.0); MEAN PLATELET VOLUME 10.3 fL (7.2-11.7); MONO # 0.9 K/uL (0.0-0.8); MONO % 8.1 % (0.0-10.0); RED CELL DISTRIBUTION WIDTH 16.9 % (11.5-14.5); WHITE BLOOD COUNT 10.6 K/uL (4.8-10.8)
[2016-11-12 06:58] LABS: ALB/GLOB RATIO 0.5 (1.0-2.1); BILIRUBIN,TOTAL 5.2 mg/dL (0.2-1.3); CALCIUM 7.6 mg/dl (8.6-10.4); MAGNESIUM 1.7 mg/dL (1.6-2.3); PHOSPHOROUS 3.3 mg/dL (2.5-4.5); POTASSIUM 3.8 mmol/L (3.6-5.2); TOTAL PROTEIN 6.4 g/dL (6.3-8.3)
--- NOTE | 2016-11-12 09:47 | CP.PCM.PN ---
Subjective - Date & Time of Evaluation Date of Evaluation: 11/12/16 Time of Evaluation: 09:40 - Subjective Subjective: anuric comfortable in bed awake,but answers no questions or follow no commands Trach in place with mask oxygen Presently on dialysis ROS unobtainable. non verbal FH % SH not obtainable.non verbal Objective - Vital Signs/Intake and Output Vital Signs (last 24 hours): Temp Pulse Resp BP Pulse Ox 97.2 F L 75 11 L 99/39 L 100 11/12/16 04:00 11/12/16 07:00 11/12/16 07:00 11/12/16 05:22 11/12/16 07:00 Intake and Output: 11/12/16 11/12/16 06:59 18:59 Intake Total 330 30 Output Total 0 Balance 330 30 - Medications Medications: Current Medications Acetaminophen (Tylenol 650mg/20.3ml Solution Ud) 650 mg PO Q6 PRN PRN Reason: Temperature Last Admin: 11/03/16 12:55 Dose: 650 mg Albumin Human (Albumin Human 25% (12.5 Gm/50 Ml)) 12.5 gm IV TTS PRN PRN Reason: hypotension Stop: 11/24/16 10:01 Albuterol/Ipratropium (Duoneb 3 Mg/0.5 Mg (3 Ml) Ud) 3 ml INH RQ6 [facility] Epoetin Sly (Procrit) 10,000 unit IV TTS [facility] Norepinephrine Bitartrate 8 mg (/ Dextrose) 258 mls @ 7.74 mls/hr IV .Q24H PRN ; Protocol; 4 MCG/MIN PRN Reason: TITRATE PER MD ORDER Last Titration: 11/08/16 05:24 Dose: 2 mcg/min, 3.87 mls/hr Dextrose (Dextrose 10% In Water) 1,000 mls @ 30 mls/hr IV .Q24H [facility] Last Admin: 11/11/16 17:03 Dose: Not Given Insulin Human Regular (Novolin R) 0 unit SC Q6 [facility] PRN Reason: Protocol Last Admin: 11/12/16 05:29 Dose: Not Given Levothyroxine Sodium (Levothyroxine) 150 mcg IVP DAILY [facility] Last Admin: 11/11/16 09:00 Dose: 150 mcg Pantoprazole Sodium (Protonix Inj) 40 mg IVP DAILY [facility] Last Admin: 11/11/16 09:10 Dose: 40 mg - Labs Labs: 11/12/16 06:36 11/12/16 06:36 PT 19.5 SECONDS (9.7-12.2) H 10/28/16 08:07 INR 1.7 10/28/16 08:07 APTT 49 SECONDS (21-34) H 10/25/16 16:33 - Constitutional Appears: No Acute Distress, Cachectic - ENT Exam ENT Exam: Mucous Membranes Dry - Neck Exam Additional comments: no jvd - Respiratory Exam Respiratory Exam: Clear to Ausculation Bilateral - Cardiovascular Exam Cardiovascular Exam: REGULAR RHYTHM - GI/Abdominal Exam GI & Abdominal Exam: Soft, Tenderness, Diminished Bowel Sounds. absent: Distended - Extremities Exam Extremities Exam: absent: Pedal Edema - Neurological Exam Neurological Exam: Awake - Psychiatric Exam Psychiatric exam: Flat Affect Assessment and Plan (1) Lower GI bleed Status: Acute (2) Diabetes mellitus Status: Acute (3) Diabetic nephropathy with proteinuria Status: Acute (4) Hypertension Status: Acute (5) CHF (congestive heart failure) Status: Chronic (6) ESRD (end stage renal disease) on dialysis Status: Chronic - Assessment and Plan (Free Text) Plan: try to remove 1-2 kg continiue supportive care
[2016-11-12] MEDS: Levothyroxine 200 mcg (0.2 mg) Inj IVP SCH (10:20)
[2016-11-12] MEDS: Albumin Human 25% (12.5 gm/50 ml) IV PRN (10:23)
[2016-11-12] MEDS: Epoetin Alfa 10,000 unit/ml Dialysis IV SCH (10:39)
[2016-11-12] MEDS: Albuterol-Ipratrop 3 mg / 0.5 (3 ml) UD INH SCH ×2 (13:36→20:19)
--- NOTE | 2016-11-12 20:38 | CP.PCM.PN ---
Subjective - Date & Time of Evaluation Date of Evaluation: 11/12/16 Time of Evaluation: 09:05 - Subjective Subjective: Patient seen and evaluated No cardiac events Objective - Vital Signs/Intake and Output Vital Signs (last 24 hours): Temp Pulse Resp BP Pulse Ox 97.4 F L 87 20 134/72 100 11/12/16 20:00 11/12/16 18:00 11/12/16 18:00 11/12/16 16:37 11/12/16 17:00 Intake and Output: 11/12/16 11/13/16 18:59 06:59 Intake Total 210 Balance 210 - Medications Medications: Current Medications Acetaminophen (Tylenol 650mg/20.3ml Solution Ud) 650 mg PO Q6 PRN PRN Reason: Temperature Last Admin: 11/03/16 12:55 Dose: 650 mg Albumin Human (Albumin Human 25% (12.5 Gm/50 Ml)) 12.5 gm IV TTS PRN PRN Reason: hypotension Stop: 11/24/16 10:01 Last Admin: 11/12/16 10:23 Dose: 12.5 gm Albuterol/Ipratropium (Duoneb 3 Mg/0.5 Mg (3 Ml) Ud) 3 ml INH RQ6 [facility] Last Admin: 11/12/16 20:19 Dose: 3 ml Epoetin Sly (Procrit) 10,000 unit IV TTS [facility] Last Admin: 11/12/16 10:39 Dose: 10,000 unit Norepinephrine Bitartrate 8 mg (/ Dextrose) 258 mls @ 7.74 mls/hr IV .Q24H PRN ; Protocol; 4 MCG/MIN PRN Reason: TITRATE PER MD ORDER Last Titration: 11/08/16 05:24 Dose: 2 mcg/min, 3.87 mls/hr Dextrose (Dextrose 10% In Water) 1,000 mls @ 30 mls/hr IV .Q24H [facility] Last Admin: 11/12/16 17:29 Dose: Not Given Insulin Human Regular (Novolin R) 0 unit SC Q6 [facility] PRN Reason: Protocol Last Admin: 11/12/16 18:12 Dose: Not Given Levothyroxine Sodium (Levothyroxine) 150 mcg IVP DAILY [facility] Last Admin: 11/12/16 10:20 Dose: 150 mcg Pantoprazole Sodium (Protonix Inj) 40 mg IVP DAILY [facility] Last Admin: 11/12/16 10:20 Dose: 40 mg - Labs Labs: 11/12/16 06:36 11/12/16 06:36 PT 19.5 SECONDS (9.7-12.2) H 10/28/16 08:07 INR 1.7 10/28/16 08:07 APTT 49 SECONDS (21-34) H 10/25/16 16:33
--- NOTE | 2016-11-12 23:20 | CP.PCM.PN ---
Subjective - Date & Time of Evaluation Date of Evaluation: 11/12/16 Time of Evaluation: 23:19 - Subjective Subjective: pt placed on trach collor tolerating NPO no bleeding will change the uncuffed trach tube swallow eval Objective - Vital Signs/Intake and Output Vital Signs (last 24 hours): Temp Pulse Resp BP Pulse Ox 97.4 F L 82 12 112/44 L 100 11/12/16 20:00 11/12/16 22:06 11/12/16 22:06 11/12/16 22:06 11/12/16 22:06 Intake and Output: 11/12/16 11/13/16 18:59 06:59 Intake Total 210 Balance 210 - Medications Medications: Current Medications Acetaminophen (Tylenol 650mg/20.3ml Solution Ud) 650 mg PO Q6 PRN PRN Reason: Temperature Last Admin: 11/03/16 12:55 Dose: 650 mg Albumin Human (Albumin Human 25% (12.5 Gm/50 Ml)) 12.5 gm IV TTS PRN PRN Reason: hypotension Stop: 11/24/16 10:01 Last Admin: 11/12/16 10:23 Dose: 12.5 gm Albuterol/Ipratropium (Duoneb 3 Mg/0.5 Mg (3 Ml) Ud) 3 ml INH RQ6 [facility] Last Admin: 11/12/16 20:19 Dose: 3 ml Epoetin Sly (Procrit) 10,000 unit IV TTS [facility] Last Admin: 11/12/16 10:39 Dose: 10,000 unit Norepinephrine Bitartrate 8 mg (/ Dextrose) 258 mls @ 7.74 mls/hr IV .Q24H PRN ; Protocol; 4 MCG/MIN PRN Reason: TITRATE PER MD ORDER Last Titration: 11/08/16 05:24 Dose: 2 mcg/min, 3.87 mls/hr Dextrose (Dextrose 10% In Water) 1,000 mls @ 30 mls/hr IV .Q24H [facility] Last Admin: 11/12/16 17:29 Dose: Not Given Insulin Human Regular (Novolin R) 0 unit SC Q6 [facility] PRN Reason: Protocol Last Admin: 11/12/16 18:12 Dose: Not Given Levothyroxine Sodium (Levothyroxine) 150 mcg IVP DAILY [facility] Last Admin: 11/12/16 10:20 Dose: 150 mcg Pantoprazole Sodium (Protonix Inj) 40 mg IVP DAILY [facility] Last Admin: 11/12/16 10:20 Dose: 40 mg - Labs Labs: 11/12/16 06:36 11/12/16 06:36 PT 19.5 SECONDS (9.7-12.2) H 10/28/16 08:07 INR 1.7 10/28/16 08:07 APTT 49 SECONDS (21-34) H 10/25/16 16:33
[2016-11-13] MEDS: Albuterol-Ipratrop 3 mg / 0.5 (3 ml) UD INH SCH ×4 (01:07→20:40)
[2016-11-13] MEDS: (Novolin R) Insulin Human Regular 100 units/ml vial SC SCH ×4 (06:19→23:46)
[2016-11-13 06:30] LABS: ALB/GLOB RATIO 0.6 (1.0-2.1); BILIRUBIN,TOTAL 5.8 mg/dL (0.2-1.3); CALCIUM 7.6 mg/dl (8.6-10.4); MAGNESIUM 1.7 mg/dL (1.6-2.3); PHOSPHOROUS 2.9 mg/dL (2.5-4.5); TOTAL PROTEIN 6.8 g/dL (6.3-8.3)
[2016-11-13 06:46] LABS: BASO # 0.1 K/uL (0.0-0.2); BASO % 1.1 % (0.0-2.0); EOS # 0.1 K/uL (0.0-0.7); EOS % 0.8 % (0.0-4.0); HEMATOCRIT 29.8 % (34.0-47.0); LYMPH # 0.9 K/uL (1.0-4.3); LYMPH % 7.7 % (20.0-40.0); MEAN CELL VOLUME 92.2 fL (81.0-99.0); MEAN CORPUSCULAR HEMOGLOBIN 30.4 pg (27.0-31.0); MEAN CORPUSCULAR HGB CONC 32.9 g/dL (33.0-37.0); MONO # 0.9 K/uL (0.0-0.8); MONO % 7.9 % (0.0-10.0); NRBC % 0.3 % (0.0-2.0); PLATELET COUNT 57 K/uL (130-400); RED CELL DISTRIBUTION WIDTH 16.9 % (11.5-14.5); WHITE BLOOD COUNT 11.8 K/uL (4.8-10.8)
[2016-11-13] MEDS: Levothyroxine 200 mcg (0.2 mg) Inj IVP SCH (09:38)
[2016-11-13 09:49] LABS: EOSINOPHIL 3 % (0-4); NEUTROPHIL 79 % (50-75); TOTAL CELLS COUNTED 100
[2016-11-13 09:51] LABS: LARGE PLATELETS PRESENT
--- NOTE | 2016-11-13 18:02 | CP.PCM.PN ---
Subjective - Date & Time of Evaluation Date of Evaluation: 11/13/16 Time of Evaluation: 18:01 - Subjective Subjective: The patient today doing well. The tracheal collar on now. Patient able to swallow ice chips today. Clinical stable otherwise. We'll repeat the evaluation for swallow. Possibly will change the tracheostomy tube. Physical therapy. Out of bed to chair. Objective - Vital Signs/Intake and Output Vital Signs (last 24 hours): Temp Pulse Resp BP Pulse Ox 97.6 F 81 18 108/47 L 100 11/13/16 16:00 11/13/16 16:00 11/13/16 16:00 11/13/16 16:00 11/13/16 16:00 Intake and Output: 11/13/16 11/13/16 06:59 18:59 Intake Total 150 Balance 150 - Medications Medications: Current Medications Acetaminophen (Tylenol 650mg/20.3ml Solution Ud) 650 mg PO Q6 PRN PRN Reason: Temperature Last Admin: 11/03/16 12:55 Dose: 650 mg Albumin Human (Albumin Human 25% (12.5 Gm/50 Ml)) 12.5 gm IV TTS PRN PRN Reason: hypotension Stop: 11/24/16 10:01 Last Admin: 11/12/16 10:23 Dose: 12.5 gm Albuterol/Ipratropium (Duoneb 3 Mg/0.5 Mg (3 Ml) Ud) 3 ml INH RQ6 [facility] Last Admin: 11/13/16 13:25 Dose: 3 ml Epoetin Sly (Procrit) 10,000 unit IV TTS [facility] Last Admin: 11/12/16 10:39 Dose: 10,000 unit Norepinephrine Bitartrate 8 mg (/ Dextrose) 258 mls @ 7.74 mls/hr IV .Q24H PRN ; Protocol; 4 MCG/MIN PRN Reason: TITRATE PER MD ORDER Last Titration: 11/08/16 05:24 Dose: 2 mcg/min, 3.87 mls/hr Dextrose (Dextrose 10% In Water) 1,000 mls @ 30 mls/hr IV .Q24H [facility] Last Admin: 11/12/16 17:29 Dose: Not Given Insulin Human Regular (Novolin R) 0 unit SC Q6 [facility] PRN Reason: Protocol Last Admin: 11/13/16 17:53 Dose: Not Given Levothyroxine Sodium (Levothyroxine) 150 mcg IVP DAILY [facility] Last Admin: 11/13/16 09:38 Dose: 150 mcg Pantoprazole Sodium (Protonix Inj) 40 mg IVP DAILY [facility] Last Admin: 11/13/16 09:31 Dose: 40 mg - Labs Labs: 11/13/16 06:07 11/13/16 06:06 PT 19.5 SECONDS (9.7-12.2) H 10/28/16 08:07 INR 1.7 10/28/16 08:07 APTT 49 SECONDS (21-34) H 10/25/16 16:33
--- NOTE | 2016-11-13 18:23 | CP.PCM.PN ---
Subjective - Date & Time of Evaluation Date of Evaluation: 11/13/16 Time of Evaluation: 10:00 - Subjective Subjective: Patient out of bed to chair Looks comfortable Responds to commands No cardiac events noted Objective - Vital Signs/Intake and Output Vital Signs (last 24 hours): Temp Pulse Resp BP Pulse Ox 97.6 F 81 18 108/47 L 100 11/13/16 16:00 11/13/16 16:00 11/13/16 16:00 11/13/16 16:00 11/13/16 16:00 Intake and Output: 11/13/16 11/13/16 06:59 18:59 Intake Total 150 Balance 150 - Medications Medications: Current Medications Acetaminophen (Tylenol 650mg/20.3ml Solution Ud) 650 mg PO Q6 PRN PRN Reason: Temperature Last Admin: 11/03/16 12:55 Dose: 650 mg Albumin Human (Albumin Human 25% (12.5 Gm/50 Ml)) 12.5 gm IV TTS PRN PRN Reason: hypotension Stop: 11/24/16 10:01 Last Admin: 11/12/16 10:23 Dose: 12.5 gm Albuterol/Ipratropium (Duoneb 3 Mg/0.5 Mg (3 Ml) Ud) 3 ml INH RQ6 [facility] Last Admin: 11/13/16 13:25 Dose: 3 ml Epoetin Sly (Procrit) 10,000 unit IV TTS [facility] Last Admin: 11/12/16 10:39 Dose: 10,000 unit Norepinephrine Bitartrate 8 mg (/ Dextrose) 258 mls @ 7.74 mls/hr IV .Q24H PRN ; Protocol; 4 MCG/MIN PRN Reason: TITRATE PER MD ORDER Last Titration: 11/08/16 05:24 Dose: 2 mcg/min, 3.87 mls/hr Dextrose (Dextrose 10% In Water) 1,000 mls @ 30 mls/hr IV .Q24H [facility] Last Admin: 11/12/16 17:29 Dose: Not Given Insulin Human Regular (Novolin R) 0 unit SC Q6 [facility] PRN Reason: Protocol Last Admin: 11/13/16 17:53 Dose: Not Given Levothyroxine Sodium (Levothyroxine) 150 mcg IVP DAILY [facility] Last Admin: 11/13/16 09:38 Dose: 150 mcg Pantoprazole Sodium (Protonix Inj) 40 mg IVP DAILY [facility] Last Admin: 11/13/16 09:31 Dose: 40 mg - Labs Labs: 11/13/16 06:07 11/13/16 06:06 PT 19.5 SECONDS (9.7-12.2) H 10/28/16 08:07 INR 1.7 10/28/16 08:07 APTT 49 SECONDS (21-34) H 10/25/16 16:33
[2016-11-14] MEDS: Albuterol-Ipratrop 3 mg / 0.5 (3 ml) UD INH SCH ×4 (01:19→19:37)
[2016-11-14] MEDS: (Novolin R) Insulin Human Regular 100 units/ml vial SC SCH ×3 (06:18→18:11)
[2016-11-14] MEDS: Levothyroxine 200 mcg (0.2 mg) Inj IVP SCH (10:11)
--- NOTE | 2016-11-14 11:27 | CP.PCM.PN ---
Subjective - Date & Time of Evaluation Date of Evaluation: 11/14/16 Time of Evaluation: 11:24 - Subjective Subjective: Arousable. On trach collar S/P DIALYSIS 11/12- TOLERATED [place] Unable to obtain ROS due to drowziness High bili noted Objective - Vital Signs/Intake and Output Vital Signs (last 24 hours): Temp Pulse Resp BP Pulse Ox 97.5 F L 75 18 94/48 L 100 11/14/16 08:00 11/14/16 08:00 11/14/16 08:00 11/14/16 08:00 11/14/16 08:00 - Medications Medications: Current Medications Acetaminophen (Tylenol 650mg/20.3ml Solution Ud) 650 mg PO Q6 PRN PRN Reason: Temperature Last Admin: 11/03/16 12:55 Dose: 650 mg Albumin Human (Albumin Human 25% (12.5 Gm/50 Ml)) 12.5 gm IV TTS PRN PRN Reason: hypotension Stop: 11/24/16 10:01 Last Admin: 11/12/16 10:23 Dose: 12.5 gm Albuterol/Ipratropium (Duoneb 3 Mg/0.5 Mg (3 Ml) Ud) 3 ml INH RQ6 [facility] Last Admin: 11/14/16 07:35 Dose: 3 ml Epoetin Sly (Procrit) 10,000 unit IV TTS [facility] Last Admin: 11/12/16 10:39 Dose: 10,000 unit Norepinephrine Bitartrate 8 mg (/ Dextrose) 258 mls @ 7.74 mls/hr IV .Q24H PRN ; Protocol; 4 MCG/MIN PRN Reason: TITRATE PER MD ORDER Last Titration: 11/08/16 05:24 Dose: 2 mcg/min, 3.87 mls/hr Dextrose (Dextrose 10% In Water) 1,000 mls @ 30 mls/hr IV .Q24H [facility] Last Admin: 11/13/16 18:38 Dose: 30 mls/hr Insulin Human Regular (Novolin R) 0 unit SC Q6 [facility] PRN Reason: Protocol Last Admin: 11/14/16 06:18 Dose: Not Given Levothyroxine Sodium (Levothyroxine) 150 mcg IVP DAILY [facility] Last Admin: 11/14/16 10:11 Dose: 150 mcg Pantoprazole Sodium (Protonix Inj) 40 mg IVP DAILY [facility] Last Admin: 11/14/16 10:12 Dose: 40 mg - Labs Labs: 11/13/16 06:07 11/13/16 06:06 PT 19.5 SECONDS (9.7-12.2) H 10/28/16 08:07 INR 1.7 10/28/16 08:07 APTT 49 SECONDS (21-34) H 10/25/16 16:33 - Constitutional Appears: In Acute Distress, Chronically Ill - Head Exam Head Exam: ATRAUMATIC, NORMAL INSPECTION - Eye Exam Eye Exam: EOMI, Normal appearance - Neck Exam Neck Exam: Normal Inspection. absent: Tenderness - Respiratory Exam Respiratory Exam: Rhonchi, Respiratory Distress - Cardiovascular Exam Cardiovascular Exam: Irregular Rhythm, +S1 - GI/Abdominal Exam GI & Abdominal Exam: Soft, Tenderness - Extremities Exam Extremities Exam: Calf Tenderness, Tenderness - Neurological Exam Neurological Exam: Altered, CN II-XII Intact - Skin Skin Exam: Dry, Warm Assessment and Plan (1) Lower GI bleed Status: Acute (2) Diabetic nephropathy with proteinuria Status: Acute (3) CHF (congestive heart failure) Status: Chronic (4) ESRD (end stage renal disease) on dialysis Status: Chronic - Assessment and Plan (Free Text) Plan: Dialysis today and [facility] care Supportive care- [facility]
--- NOTE | 2016-11-14 16:53 | CP.PCM.PN ---
Subjective - Date & Time of Evaluation Date of Evaluation: 11/14/16 Time of Evaluation: 09:00 - Subjective Subjective: Patient seen and evaluated Sitting in chair. Not in distress Objective - Vital Signs/Intake and Output Vital Signs (last 24 hours): Temp Pulse Resp BP Pulse Ox 98.4 F 73 21 98/39 L 100 11/14/16 12:00 11/14/16 11:07 11/14/16 11:07 11/14/16 11:07 11/14/16 11:07 - Medications Medications: Current Medications Acetaminophen (Tylenol 650mg/20.3ml Solution Ud) 650 mg PO Q6 PRN PRN Reason: Temperature Last Admin: 11/03/16 12:55 Dose: 650 mg Albumin Human (Albumin Human 25% (12.5 Gm/50 Ml)) 12.5 gm IV TTS PRN PRN Reason: hypotension Stop: 11/24/16 10:01 Last Admin: 11/12/16 10:23 Dose: 12.5 gm Albuterol/Ipratropium (Duoneb 3 Mg/0.5 Mg (3 Ml) Ud) 3 ml INH RQ6 [facility] Last Admin: 11/14/16 14:00 Dose: 3 ml Epoetin Sly (Procrit) 10,000 unit IV TTS [facility] Last Admin: 11/12/16 10:39 Dose: 10,000 unit Norepinephrine Bitartrate 8 mg (/ Dextrose) 258 mls @ 7.74 mls/hr IV .Q24H PRN ; Protocol; 4 MCG/MIN PRN Reason: TITRATE PER MD ORDER Last Titration: 11/08/16 05:24 Dose: 2 mcg/min, 3.87 mls/hr Dextrose (Dextrose 10% In Water) 1,000 mls @ 30 mls/hr IV .Q24H [facility] Last Admin: 11/13/16 18:38 Dose: 30 mls/hr Insulin Human Regular (Novolin R) 0 unit SC Q6 [facility] PRN Reason: Protocol Last Admin: 11/14/16 14:07 Dose: Not Given Levothyroxine Sodium (Levothyroxine) 150 mcg IVP DAILY [facility] Last Admin: 11/14/16 10:11 Dose: 150 mcg Pantoprazole Sodium (Protonix Inj) 40 mg IVP DAILY [facility] Last Admin: 11/14/16 10:12 Dose: 40 mg - Labs Labs: 11/13/16 06:07 11/13/16 06:06 PT 19.5 SECONDS (9.7-12.2) H 10/28/16 08:07 INR 1.7 10/28/16 08:07 APTT 49 SECONDS (21-34) H 10/25/16 16:33 - Constitutional Appears: Non-toxic - Head Exam Head Exam: ATRAUMATIC - Eye Exam Eye Exam: EOMI, PERRL - ENT Exam ENT Exam: Mucous Membranes Moist - Neck Exam Neck Exam: Full ROM - Respiratory Exam Respiratory Exam: Clear to Ausculation Bilateral, NORMAL BREATHING PATTERN - Cardiovascular Exam Cardiovascular Exam: RRR, +S1, +S2. absent: Murmur - GI/Abdominal Exam GI & Abdominal Exam: Soft, Normal Bowel Sounds - Extremities Exam Extremities Exam: Full ROM - Neurological Exam Neurological Exam: Alert. absent: Oriented x3 Assessment and Plan - Assessment and Plan (Free Text) Assessment: 1. s/p Sepsis 2. Respiratory failure 3. H/O CAD s/p CABG 4. CKD 5. DM 2 Hemodynamically stable. will continue to follow
[2016-11-14] MEDS: Albumin Human 25% (12.5 gm/50 ml) IV PRN ×2 (19:00→20:21)
[2016-11-14] MEDS: Epoetin Alfa 10,000 unit/ml Dialysis IV SCH (20:29)
[2016-11-14] MEDS ORDERED: Dextrose 50% SYRINGE Inj (50 ml) IV STA (23:45)
[2016-11-15] MEDS: Albuterol-Ipratrop 3 mg / 0.5 (3 ml) UD INH SCH ×3 (01:12→14:11)
[2016-11-15] MEDS: (Novolin R) Insulin Human Regular 100 units/ml vial SC SCH ×4 (06:00→18:50)
[2016-11-15 08:54] LABS: BASO # 0.2 K/uL (0.0-0.2); BASO % 1.4 % (0.0-2.0); EOS # 0.1 K/uL (0.0-0.7); HEMATOCRIT 25.6 % (34.0-47.0); LYMPH # 0.6 K/uL (1.0-4.3); LYMPH % 5.2 % (20.0-40.0); MEAN CELL VOLUME 92.9 fL (81.0-99.0); MEAN CORPUSCULAR HEMOGLOBIN 30.8 pg (27.0-31.0); MEAN CORPUSCULAR HGB CONC 33.2 g/dL (33.0-37.0); MONO % 9.2 % (0.0-10.0); PLATELET COUNT 41 K/uL (130-400); RED CELL DISTRIBUTION WIDTH 18.2 % (11.5-14.5); WHITE BLOOD COUNT 11.2 K/uL (4.8-10.8)
[2016-11-15 09:02] LABS: POTASSIUM 3.7 mmol/L (3.6-5.2)
[2016-11-15 09:04] LABS: BILIRUBIN,TOTAL 5.7 mg/dL (0.2-1.3)
[2016-11-15 09:05] LABS: ALB/GLOB RATIO 0.6 (1.0-2.1); CALCIUM 7.8 mg/dl (8.6-10.4); MAGNESIUM 1.6 mg/dL (1.6-2.3); PHOSPHOROUS 2.8 mg/dL (2.5-4.5); TOTAL PROTEIN 6.6 g/dL (6.3-8.3)
[2016-11-15] MEDS: Levothyroxine 200 mcg (0.2 mg) Inj IVP SCH (09:40)
[2016-11-15] MEDS: Epoetin Alfa 10,000 unit/ml Dialysis IV SCH (09:44)
[2016-11-15 10:02] LABS: BASOPHIL 1 % (0-2); EOSINOPHIL 1 % (0-4); NEUTROPHIL 71 % (50-75); TOTAL CELLS COUNTED 100
[2016-11-15 10:04] LABS: LARGE PLATELETS PRESENT
--- NOTE | 2016-11-15 10:05 | CP.PCM.PN ---
Subjective - Date & Time of Evaluation Date of Evaluation: 11/15/16 Time of Evaluation: 10:05 - Subjective Subjective: seen and examined. unresponsive trach hd yesterday Objective - Vital Signs/Intake and Output Vital Signs (last 24 hours): Temp Pulse Resp BP Pulse Ox 96.2 F L 77 22 91/34 L 99 11/15/16 08:00 11/15/16 08:18 11/15/16 08:18 11/15/16 08:18 11/15/16 08:18 Intake and Output: 11/15/16 11/15/16 06:59 18:59 Intake Total 360 60 Balance 360 60 - Medications Medications: Current Medications Acetaminophen (Tylenol 650mg/20.3ml Solution Ud) 650 mg PO Q6 PRN PRN Reason: Temperature Last Admin: 11/03/16 12:55 Dose: 650 mg Albumin Human (Albumin Human 25% (12.5 Gm/50 Ml)) 12.5 gm IV TTS PRN PRN Reason: hypotension Stop: 11/24/16 10:01 Last Admin: 11/14/16 20:21 Dose: 12.5 gm Albuterol/Ipratropium (Duoneb 3 Mg/0.5 Mg (3 Ml) Ud) 3 ml INH RQ6 [facility] Last Admin: 11/15/16 07:36 Dose: 3 ml Epoetin Sly (Procrit) 10,000 unit IV TTS [facility] Last Admin: 11/15/16 09:44 Dose: Not Given Norepinephrine Bitartrate 8 mg (/ Dextrose) 258 mls @ 7.74 mls/hr IV .Q24H PRN ; Protocol; 4 MCG/MIN PRN Reason: TITRATE PER MD ORDER Last Titration: 11/08/16 05:24 Dose: 2 mcg/min, 3.87 mls/hr Multivitamins/Vitamin C 10 ml/Chromium/Copper/Manganese/Zinc 1 ml/ Insulin Human Regular 5 unit/ Amino Acids 1,011.05 mls @ 30 mls/hr IV .Q24H ONE Stop: 11/16/16 17:59 Insulin Human Regular (Novolin R) 0 unit SC Q6 [facility] PRN Reason: Protocol Last Admin: 11/15/16 06:00 Dose: Not Given Levothyroxine Sodium (Levothyroxine) 150 mcg [facility]P [facility]ILY [facility] Last Admin: 11/15/16 09:40 Dose: 150 mcg Pantoprazole Sodium (Protonix Inj) 40 mg IVP DAILY [facility] Last Admin: 11/15/16 09:40 Dose: 40 mg - Labs Labs: 11/15/16 08:51 11/15/16 08:51 PT 19.5 SECONDS (9.7-12.2) H 10/28/16 08:07 INR 1.7 10/28/16 08:07 APTT 49 SECONDS (21-34) H 10/25/16 16:33 - Constitutional Appears: No Acute Distress, Unkempt, Chronically Ill, Other (not following commands) - Head Exam Head Exam: NORMAL INSPECTION - Eye Exam Eye Exam: Normal appearance - ENT Exam ENT Exam: Mucous Membranes Dry - Neck Exam Neck Exam: Normal Inspection (trach) - Respiratory Exam Respiratory Exam: Decreased Breath Sounds (mechanical vent sounds) - Cardiovascular Exam Cardiovascular Exam: REGULAR RHYTHM, RRR - GI/Abdominal Exam GI & Abdominal Exam: Soft, Normal Bowel Sounds - Extremities Exam Extremities Exam: Normal Inspection Assessment and Plan (1) Lower GI bleed Status: Acute (2) Diabetes mellitus Status: Acute (3) CHF (congestive heart failure) Status: Chronic (4) ESRD (end stage renal disease) on dialysis Status: Chronic - Assessment and Plan (Free Text) Assessment: maintain hd mwf
[2016-11-15] MEDS ORDERED: PPN # 1 IV ONE (18:00)
--- NOTE | 2016-11-15 23:48 | CP.PCM.PN ---
Subjective - Date & Time of Evaluation Date of Evaluation: 11/15/16 Time of Evaluation: 23:46 - Subjective Subjective: pt moved to 3 T pt awake on trach collor no fever no bleeding chest good air entry left hand gangrene on ppn on D10 will change the trach tube in am for speaking valve Objective - Vital Signs/Intake and Output Vital Signs (last 24 hours): Temp Pulse Resp BP Pulse Ox 97 F L 97 H 18 94/56 L 96 11/15/16 15:00 11/15/16 15:00 11/15/16 15:00 11/15/16 15:00 11/15/16 15:00 Intake and Output: 11/15/16 11/16/16 18:59 06:59 Intake Total 210 Balance 210 - Medications Medications: Current Medications Acetaminophen (Tylenol 650mg/20.3ml Solution Ud) 650 mg PO Q6 PRN PRN Reason: Temperature Last Admin: 11/03/16 12:55 Dose: 650 mg Albuterol/Ipratropium (Duoneb 3 Mg/0.5 Mg (3 Ml) Ud) 3 ml INH RQ6 REKHA Last Admin: 11/15/16 14:11 Dose: 3 ml Epoetin Sly (Procrit) 10,000 unit IV TTS REKHA Last Admin: 11/15/16 09:44 Dose: Not Given Multivitamins/Vitamin C 10 ml/Chromium/Copper/Manganese/Zinc 1 ml/ Insulin Human Regular 5 unit/ Amino Acids 1,011.05 mls @ 30 mls/hr IV .Q24H ONE Stop: 11/16/16 17:59 Last Admin: 11/15/16 18:48 Dose: 30 mls/hr Levothyroxine Sodium 150 mcg/ (Sodium Chloride) 3.75 mls @ 0 mls/hr IVP DAILY@ 0630 REKHA PRN Reason: UD Pantoprazole Sodium (Protonix Inj) 40 mg IVP DAILY [facility] Last Admin: 11/15/16 09:40 Dose: 40 mg - Labs Labs: 11/15/16 08:51 11/15/16 08:51 PT 19.5 SECONDS (9.7-12.2) H 10/28/16 08:07 INR 1.7 10/28/16 08:07 APTT 49 SECONDS (21-34) H 10/25/16 16:33
[2016-11-16] MEDS ORDERED: MANGANESE IV ONE (00:02)
[2016-11-16] MEDS ORDERED: MULTIVITAMIN IV ONE (00:02)
[2016-11-16] MEDS ORDERED: [UNRECOGNIZED DRUG - OTHER] IV ONE (00:02)
[2016-11-16] MEDS ORDERED: COPPER IV ONE (00:02)
[2016-11-16] MEDS ORDERED: ZINC IV ONE (00:02)
[2016-11-16] MEDS ORDERED: CHROMIUM IV ONE (00:02)
[2016-11-16] MEDS ORDERED: Dextrose 50% SYRINGE Inj (50 ml) IV STA ×2 (00:06→17:52)
--- NOTE | 2016-11-16 00:28 | CP.PCM.PN ---
Subjective - Date & Time of Evaluation Date of Evaluation: 11/15/16 Time of Evaluation: 14:10 - Subjective Subjective: Patient much more comfortable Denies chest pain and dypnea Objective - Vital Signs/Intake and Output Vital Signs (last 24 hours): Temp Pulse Resp BP Pulse Ox 97 F L 76 20 97/61 L 100 11/16/16 00:00 11/16/16 00:00 11/16/16 00:00 11/16/16 00:00 11/16/16 00:00 Intake and Output: 11/15/16 11/16/16 18:59 06:59 Intake Total 210 390 Balance 210 390 - Medications Medications: Current Medications Acetaminophen (Tylenol 650mg/20.3ml Solution Ud) 650 mg PO Q6 PRN PRN Reason: Temperature Last Admin: 11/03/16 12:55 Dose: 650 mg Albuterol/Ipratropium (Duoneb 3 Mg/0.5 Mg (3 Ml) Ud) 3 ml INH RQ6 [facility] Last Admin: 11/15/16 14:11 Dose: 3 ml Epoetin Sly (Procrit) 10,000 unit IV TTS [facility] Last Admin: 11/15/16 09:44 Dose: Not Given Levothyroxine Sodium 150 mcg/ (Sodium Chloride) 3.75 mls @ 0 mls/hr IVP DAILY@ 0630 [facility] PRN Reason: UD Multivitamins/Vitamin C 10 ml/Chromium/Copper/Manganese/Zinc 1 ml/ Insulin Human Regular 5 unit/ Amino Acids 1,011.05 mls @ 20 mls/hr IV .Q24H ONE Stop: 11/16/16 17:59 Dextrose (Dextrose 10% In Water) 1,000 mls @ 40 mls/hr IV .Q24H [facility] Pantoprazole Sodium (Protonix Inj) 40 mg IVP DAILY [facility] Last Admin: 11/15/16 09:40 Dose: 40 mg - Labs Labs: 11/15/16 08:51 11/15/16 08:51 PT 19.5 SECONDS (9.7-12.2) H 10/28/16 08:07 INR 1.7 10/28/16 08:07 APTT 49 SECONDS (21-34) H 10/25/16 16:33
[2016-11-16] MEDS: Albuterol-Ipratrop 3 mg / 0.5 (3 ml) UD INH SCH ×4 (01:30→19:39)
[2016-11-16] MEDS: SODIUM CHLORIDE 0.9% IVP SCH (07:15)
[2016-11-16] MEDS: LEVOTHYROXINE IVP SCH (07:15)
[2016-11-16] MEDS: (Novolin R) Insulin Human Regular 100 units/ml vial SC SCH ×2 (12:20→17:55)
--- NOTE | 2016-11-16 12:51 | CP.PCM.PN ---
Subjective - Date & Time of Evaluation Date of Evaluation: 11/16/16 Time of Evaluation: 12:48 - Subjective Subjective: Transferred to [facility] On trach collar Arousable- lethargic For trach tube change in AM For HD today On D10W Labs reviewed Objective - Vital Signs/Intake and Output Vital Signs (last 24 hours): Temp Pulse Resp BP Pulse Ox 97.0 F L 73 20 89/43 L 96 11/16/16 07:31 11/16/16 07:31 11/16/16 07:31 11/16/16 07:31 11/16/16 07:31 Intake and Output: 11/16/16 11/16/16 06:59 18:59 Intake Total 710 Balance 710 - Medications Medications: Current Medications Acetaminophen (Tylenol 650mg/20.3ml Solution Ud) 650 mg PO Q6 PRN PRN Reason: Temperature Last Admin: 11/03/16 12:55 Dose: 650 mg Albuterol/Ipratropium (Duoneb 3 Mg/0.5 Mg (3 Ml) Ud) 3 ml INH RQ6 [facility] Last Admin: 11/16/16 07:22 Dose: 3 ml Epoetin Sly (Procrit) 10,000 unit IV TTS [facility] Last Admin: 11/15/16 09:44 Dose: Not Given Levothyroxine Sodium 150 mcg/ (Sodium Chloride) 3.75 mls @ 0 mls/hr IVP DAILY@ 0630 [facility] PRN Reason: UD Last Admin: 11/16/16 07:15 Dose: 3.75 mls/hr Multivitamins/Vitamin C 10 ml/Chromium/Copper/Manganese/Zinc 1 ml/ Insulin Human Regular 5 unit/ Amino Acids 1,011.05 mls @ 20 mls/hr IV .Q24H ONE Stop: 11/16/16 17:59 Last Admin: 11/16/16 00:30 Dose: Not Given Dextrose (Dextrose 10% In Water) 1,000 mls @ 40 mls/hr IV .Q24H [facility] Last Admin: 11/16/16 00:05 Dose: 40 mls/hr Insulin Human Regular (Novolin R) 0 unit SC Q6 [facility] PRN Reason: Protocol Last Admin: 11/16/16 12:20 Dose: Not Given Pantoprazole Sodium (Protonix Inj) 40 mg IVP DAILY [facility] Last Admin: 11/16/16 11:44 Dose: 40 mg - Labs Labs: 11/15/16 08:51 11/15/16 08:51 PT 19.5 SECONDS (9.7-12.2) H 10/28/16 08:07 INR 1.7 10/28/16 08:07 APTT 49 SECONDS (21-34) H 10/25/16 16:33 - Constitutional Appears: Confused, Cachectic, Chronically Ill - Head Exam Head Exam: ATRAUMATIC, NORMAL INSPECTION - Eye Exam Eye Exam: EOMI - Neck Exam Neck Exam: Normal Inspection. absent: Tenderness - Respiratory Exam Respiratory Exam: Rhonchi, Respiratory Distress - Cardiovascular Exam Cardiovascular Exam: REGULAR RHYTHM, +S1 - GI/Abdominal Exam GI & Abdominal Exam: Soft. absent: Tenderness - Extremities Exam Extremities Exam: absent: Pedal Edema, Tenderness - Neurological Exam Neurological Exam: Altered, Motor Sensory Deficit - Skin Skin Exam: Dry, Warm Assessment and Plan (1) Lower GI bleed Status: Acute (2) Diabetic nephropathy with proteinuria Status: Acute (3) CHF (congestive heart failure) Status: Chronic (4) ESRD (end stage renal disease) on dialysis Status: Chronic - Assessment and Plan (Free Text) Plan: Dialysis now moderate UF Awaiting start PPN trach tube change
[2016-11-16] MEDS ORDERED: Albumin Human 25% (12.5 gm/50 ml) IV ONE (14:38)
--- NOTE | 2016-11-16 15:52 | PCM.RRTMUL ---
WRITER EDITOR Nurses Assessment - Situation WRITER EDITOR Responder Arrival Time:: 10:10 - Ventilator Settings SAO2 %:: 98 - Vital Signs Blood Pressure:: 89/43 Pulse Rate:: 73 Respiratory Rate:: 20 Temperature:: 97.0 F - A) Initial Vital Signs: Blood Pressure: 92/50 Pulse Rate: 52 Respiratory Rate: 15 Finger Stick Blood Glucose: 104 - B) Neurological Status (Select all that apply): Alert. absent: Responsive, Verbal - C) Respiratory Oxygen Delivery Method: Trach Collar @% Oxygen Flow Rate: 50 - Constitutional Appears: In Acute Distress - Head Head Exam: ATRAUMATIC - Respiratory Exam Respiratory Exam: Rales, Respiratory Distress - Cardiovascular Exam Cardiovascular Exam: Bradycardia - GI/Abdominal Exam GI & Abdominal Exam: Soft, Normal Bowel Sounds - Neurological Exam Neurological Exam: absent: Awake, Oriented x3 - Extremities Exam Extremities Exam: Normal Inspection. absent: Pedal Edema, Tenderness Plan - A. End of WRITER EDITOR Vital Signs: Blood Pressure: 90/65 Pulse Rate: 94 Respiratory Rate: 18 O2 Sat by Pulse Oximetry: 69 - B. Assessment of Findings&Treatment Plan WRITER EDITOR called at 3:04pm at bedside for noted hypotensive state, bradycardia and lots of mucus secretion Respiratory therapist was at bedside, suctioning secretion and placement for a bag valve mask Patient was give 1 dose of epinephrine at 3:16pm. Patient was then started on non-epinephrine drip at 10mcg per minute and was transferred to the ICU
[2016-11-16 16:09] LABS: ABG ALLEN TEST POS; ABG MECHANICAL RATE 14; ARTERIAL BLOOD GAS MODE PRVC; ATERIAL BLOOD GAS PEEP 5; DRAW SITE LBA
--- NOTE | 2016-11-16 16:21 | RAD ---
HISTORY: dyspnea COMPARISON: 11/09/2016. FINDINGS: There is stable position of the tracheostomy tube. The right PICC line terminates at the cavoatrial junction. The nasogastric tube has been removed. LUNGS: There is interval worsening of pulmonary venous congestion and also noted is mild interstitial pulmonary edema. PLEURA: There is a stable moderate right pleural effusion. Small left pleural effusion. CARDIOVASCULAR: There is mild cardiomegaly. Status post CABG. OSSEOUS STRUCTURES: There is diffuse bone demineralization. There is an old deformity in the right proximal humerus. There are loose bodies versus calcific tendinitis in the region of the left glenohumeral joint. VISUALIZED UPPER ABDOMEN: Normal. OTHER FINDINGS: None. IMPRESSION: 1. Worsening pulmonary venous congestion and mild interstitial pulmonary edema. 2. Stable moderate right pleural effusion and small left pleural effusion.
--- NOTE | 2016-11-16 18:20 | CP.PCM.CON ---
Addendum entered and electronically signed by Gretchen Brewer 11/16/16 18:32 : Pulm: Patient is intubated Original Note: <Gretchen Brewer - Last Filed: 11/16/16 18:16> History of Present Illness - History of Present Illness History of Present Illness: 76 year old female with history of CAD, stent in the past, hypertension, end- stage renal disease on dialysis, recurrent pleural effusion, hypothyroidism, and diabetes. Patient was transferred from the medical floor to the ICU because patient was noted to have a hypotensive state, bradycardia and lots of mucus secretion per the Dr. Martin. Respiratory therapist was at bedside, suctioning secretion and placement for a bag valve mask. Patient was given 1 dose of epinephrine at 3:16pm on the medical floor. Patient was then started on non- epinephrine drip at 10mcg per minute and is now in the ICU. Review of Systems - Review of Systems Systems not reviewed;Unavailable: Acuity of Condition (Patient is non-verbal) Past Patient History - Infectious Disease Hx of Infectious Diseases: None - Past Medical History & Family History Past Medical History?: Yes - Past Social History Smoking Status: Never Smoked - CARDIAC Hx Congestive Heart Failure: Yes Hx Hypercholesterolemia: Yes Hx Hypertension: Yes - PULMONARY Hx Respiratory Disorders: Yes Other/Comment: hx of thoracentesis,recurrent pleural effusion - NEUROLOGICAL Hx Neurological Disorder: No - HEENT Hx HEENT Problems: Yes Other/Comment: hard of hearing - RENAL Hx Chronic Kidney Disease: Yes - ENDOCRINE/METABOLIC Hx Hypothyroidism: Yes - HEMATOLOGICAL/ONCOLOGICAL Hx Blood Disorders: No - INTEGUMENTARY Hx Dermatological Problems: No - MUSCULOSKELETAL/RHEUMATOLOGICAL Hx Musculoskeletal Disorders: No Hx Falls: No - GASTROINTESTINAL Hx Crohn's Disease: No Hx Diverticulitis: No - GENITOURINARY/GYNECOLOGICAL Hx Genitourinary Disorders: Yes Hx Urinary Tract Infection: Yes (2006) Other/Comment: ureteral stent placed 06/2015 - PSYCHIATRIC Hx Substance Use: No - SURGICAL HISTORY Hx Coronary Artery Bypass Graft: Yes (2001) Hx Coronary Stent: Yes (x3 in 2006) - ANESTHESIA Hx Anesthesia: Yes Hx Anesthesia Reactions: No Hx Malignant Hyperthermia: No Meds Allergies/Adverse Reactions: Allergies Allergy/AdvReac Type Severity Reaction Status Date / Time Sulfa (Sulfonamide Allergy RASH Verified 10/25/16 15:46 Antibiotics) - Medications Medications: Current Medications Albumin Human (Albumin Human 25% (12.5 Gm/50 Ml)) 12.5 gm IV MWF PRN PRN Reason: LOW BLOOD PRESSURE Albuterol/Ipratropium (Duoneb 3 Mg/0.5 Mg (3 Ml) Ud) 3 ml INH RQ6 [facility] Last Admin: 11/16/16 13:29 Dose: 3 ml Epoetin Sly (Procrit) 10,000 unit IV TTS [facility] Last Admin: 11/15/16 09:44 Dose: Not Given Levothyroxine Sodium 150 mcg/ (Sodium Chloride) 3.75 mls @ 0 mls/hr IVP DAILY@ 0630 [facility] PRN Reason: UD Last Admin: 11/16/16 07:15 Dose: 3.75 mls/hr Dextrose (Dextrose 10% In Water) 1,000 mls @ 40 mls/hr IV .Q24H [facility] Last Admin: 11/16/16 00:05 Dose: 40 mls/hr Insulin Human Regular (Novolin R) 0 unit SC Q6 [facility] PRN Reason: Protocol Last Admin: 11/16/16 17:55 Dose: Not Given Pantoprazole Sodium (Protonix Inj) 40 mg IVP DAILY [facility] Last Admin: 11/16/16 11:44 Dose: 40 mg Physical Exam - Constitutional Additional comments: Patient is non-verbal - Head Exam Head Exam: ATRAUMATIC, NORMAL INSPECTION - ENT Exam ENT Exam: Mucous Membranes Moist - Respiratory Exam Respiratory Exam: Decreased Breath Sounds - Cardiovascular Exam Cardiovascular Exam: REGULAR RHYTHM, +S1, +S2 - Extremities Exam Additional comments: cold fingers, ischemic 3rd digit on left hand - Neurological Exam Neurological exam: Alert - Skin Additional comments: bilateral cold hands, gangrenous fingertips Results - Vital Signs Recent Vital Signs: Last Vital Signs Temp 97.0 F L 11/16/16 18:05 Pulse 94 H 11/16/16 18:05 Resp 18 11/16/16 18:05 BP 90/65 L 11/16/16 18:05 Pulse Ox 96 11/16/16 07:31 - Labs Result Diagrams: 11/15/16 08:51 11/15/16 08:51 Labs: Laboratory Results - last 24 hr 11/15/16 11/15/16 11/16/16 21:24 23:58 00:49 Puncture Site pCO2 pO2 HCO3 ABG pH ABG Total CO2 ABG O2 Saturation ABG Base Excess [place] Test ABG Potassium A-a O2 Difference Respiratory Index Sodium Chloride Glucose Lactate Vent Mode Mechanical Rate FiO2 Tidal Volume PEEP POC Glucose (mg/dL) 73 62 L 195 H Arterial Blood Potassium 11/16/16 11/16/16 11/16/16 07:41 11:22 15:07 Puncture Site pCO2 pO2 HCO3 ABG pH ABG Total CO2 ABG O2 Saturation ABG Base Excess [place] Test ABG Potassium A-a O2 Difference Respiratory Index Sodium Chloride Glucose Lactate Vent Mode Mechanical Rate FiO2 Tidal Volume PEEP POC Glucose (mg/dL) 108 73 104 Arterial Blood Potassium 11/16/16 16:05 Puncture Site Lba pCO2 44 pO2 255 H HCO3 25.4 ABG pH 7.38 ABG Total CO2 27.4 ABG O2 Saturation 100.8 H ABG Base Excess 0.5 [place] Test Pos ABG Potassium 3.8 A-a O2 Difference 403.0 Respiratory Index 1.6 Sodium 130.0 L Chloride 99.0 Glucose 75 Lactate 2.9 H Vent Mode Prvc Mechanical Rate 14 FiO2 100.0 Tidal Volume 350 PEEP 5 POC Glucose (mg/dL) Arterial Blood Potassium 3.8 Assessment & Plan - Assessment and Plan (Free Text) Plan: 76F admitted for GI bleed; s/p flexible sigmoidoscopy and multiple transfusions. Plan: Neuro: - GCS 9T - at baseline likely 2/2 metabolic encephalopathy - Patient in non-verbal Pulm: - Chronic Respiratory failure - Trach collar today CV: - Septic Shock - BP mildly improved - systolic now 100-110s - Norepinephrine is currently stopped 11/09 - Dr Long on board. Pt high risk for any procedure but can proceed if clinical indicated - Left hand with ischemic necrosis - consult placed for vasc Dr Buck - likely nothing to do Heme: - will cont to monitor H/H and for rectal bleed Renal: - ESRD - HD as per Dr Mcfarland - Dr Trent on consult --> help appreciated Endo: -Insulin sliding scale - patient's daughter refuses insulin GI: Ischemic colitis with hemorrhage, not a candidate for intervention as this would be medically futile. - NGT removed 11/05/16 per patient's daughter request - NGT was replaced 11/07 - Patient pulled out the Dubhoff tube overnight - Dubhoff was replaced 11/09 - Protonix for GI bleed - GI Consult: Dr. Young --> help appreciated ID: - Septic Shock - Meropenem was discontinued 11/07 (patient received a 13 day course) Pt chronically ill, prognosis very poor DVT proph - SCDs, no anti-coagulation due to acute bleed GI proph - Protonix 40mg IVP daily Care Management Consult --> help appreciated - [facility] Care Code status - Full <Charity Scalesudhry S - Last Filed: 11/16/16 18:35> Meds - Medications Medications: Current Medications Albumin Human (Albumin Human 25% (12.5 Gm/50 Ml)) 12.5 gm IV MWF PRN PRN Reason: LOW BLOOD PRESSURE Albuterol/Ipratropium (Duoneb 3 Mg/0.5 Mg (3 Ml) Ud) 3 ml INH RQ6 [facility] Last Admin: 11/16/16 13:29 Dose: 3 ml Epoetin Sly (Procrit) 10,000 unit IV TTS [facility] Last Admin: 11/15/16 09:44 Dose: Not Given Levothyroxine Sodium 150 mcg/ (Sodium Chloride) 3.75 mls @ 0 mls/hr IVP DAILY@ 0630 [facility] PRN Reason: UD Last Admin: 11/16/16 07:15 Dose: 3.75 mls/hr Dextrose (Dextrose 10% In Water) 1,000 mls @ 40 mls/hr IV .Q24H [facility] Last Admin: 11/16/16 00:05 Dose: 40 mls/hr Insulin Human Regular (Novolin R) 0 unit SC Q6 [facility] PRN Reason: Protocol Last Admin: 11/16/16 17:55 Dose: Not Given Pantoprazole Sodium (Protonix Inj) 40 mg IVP DAILY [facility] Last Admin: 11/16/16 11:44 Dose: 40 mg Results - Vital Signs Recent Vital Signs: Last Vital Signs Temp 97.0 F L 11/16/16 18:05 Pulse 94 H 11/16/16 18:05 Resp 18 11/16/16 18:05 BP 90/65 L 11/16/16 18:05 Pulse Ox 96 11/16/16 07:31 - Labs Result Diagrams: 11/15/16 08:51 11/15/16 08:51 Labs: Laboratory Results - last 24 hr 11/15/16 11/15/16 11/16/16 21:24 23:58 00:49 Puncture Site pCO2 pO2 HCO3 ABG pH ABG Total CO2 ABG O2 Saturation ABG Base Excess [place] Test ABG Potassium A-a O2 Difference Respiratory Index Sodium Chloride Glucose Lactate Vent Mode Mechanical Rate FiO2 Tidal Volume PEEP POC Glucose (mg/dL) 73 62 L 195 H Arterial Blood Potassium 11/16/16 11/16/16 11/16/16 07:41 11:22 15:07 Puncture Site pCO2 pO2 HCO3 ABG pH ABG Total CO2 ABG O2 Saturation ABG Base Excess [place] Test ABG Potassium A-a O2 Difference Respiratory Index Sodium Chloride Glucose Lactate Vent Mode Mechanical Rate FiO2 Tidal Volume PEEP POC Glucose (mg/dL) 108 73 104 Arterial Blood Potassium 11/16/16 11/16/16 11/16/16 16:05 17:50 18:20 Puncture Site Lba pCO2 44 pO2 255 H HCO3 25.4 ABG pH 7.38 ABG Total CO2 27.4 ABG O2 Saturation 100.8 H ABG Base Excess 0.5 [place] Test Pos ABG Potassium 3.8 A-a O2 Difference 403.0 Respiratory Index 1.6 Sodium 130.0 L Chloride 99.0 Glucose 75 Lactate 2.9 H Vent Mode Prvc Mechanical Rate 14 FiO2 100.0 Tidal Volume 350 PEEP 5 POC Glucose (mg/dL) 53 L 152 H Arterial Blood Potassium 3.8 Assessment & Plan (1) Lower GI bleed Status: Acute (2) ESRD (end stage renal disease) on dialysis Status: Chronic Attending/Attestation - Attestation I have personally seen and examined this patient.: Yes I have fully participated in the care of the patient.: Yes I have reviewed all pertinent clinical information: Yes Notes (Text): 11/16/16 18:33 76-year-old white female transferred back to ICU for hypotension, respiratory insufficiency with copious secretions from the ET tube. Patient placed on ventilatory support and pressors. Continue present treatment, follow-up culture and sensitivity Follow up ABG and chest x-ray Spoke with family at length 11/16/16 18:35
[2016-11-16 18:39] LABS: BASO # 0.2 K/uL (0.0-0.2); BASO % 1.1 % (0.0-2.0); HEMATOCRIT 26.1 % (34.0-47.0); LYMPH # 0.3 K/uL (1.0-4.3); LYMPH % 1.3 % (20.0-40.0); MEAN CELL VOLUME 94.5 fL (81.0-99.0); MEAN CORPUSCULAR HEMOGLOBIN 30.5 pg (27.0-31.0); MEAN CORPUSCULAR HGB CONC 32.3 g/dL (33.0-37.0); MEAN PLATELET VOLUME 8.7 fL (7.2-11.7); MONO # 0.4 K/uL (0.0-0.8); MONO % 1.7 % (0.0-10.0); PLATELET COUNT 33 K/uL (130-400); RED CELL DISTRIBUTION WIDTH 17.6 % (11.5-14.5)
[2016-11-16 18:48] LABS: POTASSIUM 3.7 mmol/L (3.6-5.2)
[2016-11-16 18:50] LABS: ALB/GLOB RATIO 0.6 (1.0-2.1); BILIRUBIN,TOTAL 6.1 mg/dL (0.2-1.3); TOTAL PROTEIN 6.2 g/dL (6.3-8.3)
[2016-11-16 20:25] LABS: NEUTROPHIL 95 % (50-75); TOTAL CELLS COUNTED 100
[2016-11-16 20:29] LABS: LARGE PLATELETS PRESENT
--- NOTE | 2016-11-16 22:20 | CP.PCM.PN ---
Subjective - Date & Time of Evaluation Date of Evaluation: 11/16/16 Time of Evaluation: 20:30 - Subjective Subjective: Patient transferred back to ICU after a rapid response Now better Objective - Vital Signs/Intake and Output Vital Signs (last 24 hours): Temp Pulse Resp BP Pulse Ox 96 F L 78 28 H 87/47 L 100 11/16/16 20:00 11/16/16 21:28 11/16/16 21:28 11/16/16 21:28 11/16/16 21:28 Intake and Output: 11/16/16 11/17/16 18:59 06:59 Intake Total 372.5 135.8 Output Total 0 Balance 372.5 135.8 - Medications Medications: Current Medications Albumin Human (Albumin Human 25% (12.5 Gm/50 Ml)) 12.5 gm IV MWF PRN PRN Reason: LOW BLOOD PRESSURE Albuterol/Ipratropium (Duoneb 3 Mg/0.5 Mg (3 Ml) Ud) 3 ml INH RQ6 [facility] Last Admin: 11/16/16 19:39 Dose: 3 ml Epoetin Sly (Procrit) 10,000 unit IV TTS [facility] Last Admin: 11/15/16 09:44 Dose: Not Given Levothyroxine Sodium 150 mcg/ (Sodium Chloride) 3.75 mls @ 0 mls/hr IVP DAILY@ 0630 [facility] PRN Reason: UD Last Admin: 11/16/16 07:15 Dose: 3.75 mls/hr Norepinephrine Bitartrate 4 mg (/ Sodium Chloride) 254 mls @ 15.24 mls/hr IV .[id number] PRN; Protocol; 4 MCG/MIN PRN Reason: TITRATE PER MD ORDER Last Titration: 11/16/16 21:37 Dose: 5 mcg/min, 19.05 mls/hr Dextrose (Dextrose 10% In Water) 1,000 mls @ 30 mls/hr IV .Q24H [facility] Last Admin: 11/16/16 21:29 Dose: 30 mls/hr Insulin Human Regular (Novolin R) 0 unit SC Q6 [facility] PRN Reason: Protocol Last Admin: 11/16/16 17:55 Dose: Not Given Pantoprazole Sodium (Protonix Inj) 40 mg IVP DAILY [facility] Last Admin: 11/16/16 11:44 Dose: 40 mg - Labs Labs: 11/16/16 18:29 11/16/16 18:29 PT 19.5 SECONDS (9.7-12.2) H 10/28/16 08:07 INR 1.7 10/28/16 08:07 APTT 49 SECONDS (21-34) H 10/25/16 16:33
[2016-11-17] MEDS: (Novolin R) Insulin Human Regular 100 units/ml vial SC SCH ×4 (00:07→17:50)
[2016-11-17] MEDS: Albuterol-Ipratrop 3 mg / 0.5 (3 ml) UD INH SCH ×4 (02:55→19:36)
[2016-11-17] MEDS: LEVOTHYROXINE IVP SCH (05:51)
[2016-11-17] MEDS: SODIUM CHLORIDE 0.9% IVP SCH (05:51)
[2016-11-17 06:15] LABS: ABG ALLEN TEST POS; ABG MECHANICAL RATE 14; ARTERIAL BLOOD HGB O2 SAT 95.4 % (95.0-98.0); ATERIAL BLOOD GAS PEEP 5; CARBOXYHEMOGLOBIN 2.6 % (0.5-1.5); DRAW SITE R R; HHB 0.6 % (0.0-5.0); METHEMOGLOBIN 1.4 % (0.0-3.0)
[2016-11-17 06:29] LABS: BASO # 0.1 K/uL (0.0-0.2); BASO % 0.2 % (0.0-2.0); EOS % 0.1 % (0.0-4.0); LYMPH # 0.9 K/uL (1.0-4.3); LYMPH % 3.3 % (20.0-40.0); MEAN CELL VOLUME 94.1 fL (81.0-99.0); MEAN CORPUSCULAR HEMOGLOBIN 30.7 pg (27.0-31.0); MEAN CORPUSCULAR HGB CONC 32.6 g/dL (33.0-37.0); MEAN PLATELET VOLUME 9.5 fL (7.2-11.7); MONO # 0.9 K/uL (0.0-0.8); MONO % 3.5 % (0.0-10.0); PLATELET COUNT 35 K/uL (130-400); RED CELL DISTRIBUTION WIDTH 20.1 % (11.5-14.5); WHITE BLOOD COUNT 26.5 K/uL (4.8-10.8)
[2016-11-17 06:43] LABS: ALB/GLOB RATIO 0.6 (1.0-2.1); BILIRUBIN,TOTAL 7.3 mg/dL (0.2-1.3); TOTAL PROTEIN 6.5 g/dL (6.3-8.3)
[2016-11-17 06:44] LABS: CALCIUM 7.6 mg/dl (8.6-10.4); MAGNESIUM 1.5 mg/dL (1.6-2.3)
--- NOTE | 2016-11-17 07:44 | RAD ---
Chest x-ray single frontal view History: NG tube placement. Comparison: 11/16/2016 Findings: NG tube extending into the stomach. Other lines and tubes in stable position. Persistent severe diffuse confluent bilateral airspace opacities most prominent in mid to lower lung zones suggestive for infiltrate and or edema. Moderate to large bilateral pleural effusions. Status post median sternotomy and CABG. Cardiomegaly. Calcification at the aortic knob. Degenerative changes in the spine and shoulders. Curvilinear radiopaque density projects over the right upper abdomen, uncertain clinical etiology, clinical correlation. Impression: NG tube extending into the stomach. Other lines and tubes in stable position. Persistent severe diffuse confluent bilateral airspace opacities most prominent in mid to lower lung zones suggestive for infiltrate and or edema. Moderate to large bilateral pleural effusions. Status post median sternotomy and CABG. Cardiomegaly. Calcification at the aortic knob. Degenerative changes in the spine and shoulders. Curvilinear radiopaque density projects over the right upper abdomen, uncertain clinical etiology, clinical correlation.
--- NOTE | 2016-11-17 08:04 | RAD ---
PROCEDURE: CHEST RADIOGRAPH, 1 VIEW HISTORY: mechanical ventilation COMPARISON: 11/16/2016 FINDINGS: LUNGS: Tracheostomy tube deviated to the right of midline. Other lines and tubes in stable position. Moderate to severe venous congestion. Confluent airspace consolidative changes in the mid to lower lung zones with associated moderate bilateral pleural effusions. Biapical pleural thickening with upper lobe granulomatous changes. PLEURA: As above. CARDIOVASCULAR: Status post median sternotomy and CABG. Calcification at the aortic knob. Left axillary stent in place. OSSEOUS STRUCTURES: Degenerative changes in the spine and shoulders with deformity of the right proximal humerus. VISUALIZED UPPER ABDOMEN: Normal. OTHER FINDINGS: None. IMPRESSION: Tracheostomy tube deviated to the right of midline. Other lines and tubes in stable position. Moderate to severe venous congestion. Confluent airspace consolidative changes in the mid to lower lung zones with associated moderate bilateral pleural effusions. Biapical pleural thickening with upper lobe granulomatous changes.
--- NOTE | 2016-11-17 08:15 | CP.PCM.PN ---
Subjective - Date & Time of Evaluation Date of Evaluation: 11/17/16 Time of Evaluation: 08:13 - Subjective Subjective: Attempted to dialysis 11/16- inable to initiate due to hypotension. Transferred ti ICU due to hypotension, now on levophed @ 9 mcg/min with BP 90- 100 systolic On vent, poorly responsive Hg low as before- 8.2; same severe leukocytosis No overt bleeding Lytes acceptable except mag low Objective - Vital Signs/Intake and Output Vital Signs (last 24 hours): Temp Pulse Resp BP Pulse Ox 97.1 F L 111 H 22 114/66 100 11/17/16 00:00 11/17/16 07:13 11/17/16 07:13 11/17/16 07:13 11/17/16 07:13 Intake and Output: 11/17/16 11/17/16 06:59 18:59 Intake Total 1058.3 Output Total 1 Balance 1057.3 - Medications Medications: Current Medications Albumin Human (Albumin Human 25% (12.5 Gm/50 Ml)) 12.5 gm IV MWF PRN PRN Reason: LOW BLOOD PRESSURE Albuterol/Ipratropium (Duoneb 3 Mg/0.5 Mg (3 Ml) Ud) 3 ml INH RQ6 [facility] Last Admin: 11/17/16 07:10 Dose: 3 ml Epoetin Sly (Procrit) 10,000 unit IV TTS [facility] Last Admin: 11/15/16 09:44 Dose: Not Given Norepinephrine Bitartrate 4 mg (/ Sodium Chloride) 254 mls @ 15.24 mls/hr IV .[id number] PRN; Protocol; 4 MCG/MIN PRN Reason: TITRATE PER MD ORDER Last Titration: 11/17/16 06:44 Dose: 9 mcg/min, 34.29 mls/hr Dextrose (Dextrose 10% In Water) 1,000 mls @ 20 mls/hr IV .Q24H [facility] Last Admin: 11/16/16 23:30 Dose: 20 mls/hr Vancomycin HCl 1,000 mg/ (Sodium Chloride) 250 mls @ 166.6 mls/hr IVPB ONCE ONE Stop: 11/17/16 08:21 Insulin Human Regular (Novolin R) 0 unit SC Q6 [facility] PRN Reason: Protocol Last Admin: 11/17/16 05:18 Dose: Not Given Levothyroxine Sodium (Synthroid) 175 mcg PO DAILY@0630 [facility] Pantoprazole Sodium (Protonix Inj) 40 mg IVP DAILY [facility] Last Admin: 11/16/16 11:44 Dose: 40 mg - Labs Labs: 11/17/16 06:22 11/17/16 06:22 PT 19.5 SECONDS (9.7-12.2) H 10/28/16 08:07 INR 1.7 10/28/16 08:07 APTT 49 SECONDS (21-34) H 10/25/16 16:33 - Constitutional Appears: Toxic, Chronically Ill - Head Exam Head Exam: ATRAUMATIC, NORMAL INSPECTION - Eye Exam Eye Exam: EOMI, Normal appearance - Neck Exam Neck Exam: Normal Inspection. absent: Tenderness - Respiratory Exam Respiratory Exam: Rhonchi, Respiratory Distress - Cardiovascular Exam Cardiovascular Exam: Irregular Rhythm, +S1 - GI/Abdominal Exam GI & Abdominal Exam: Soft. absent: Tenderness - Extremities Exam Extremities Exam: Normal Inspection. absent: Tenderness - Neurological Exam Neurological Exam: Altered, Motor Sensory Deficit - Skin Skin Exam: Dry, Warm Assessment and Plan (1) Lower GI bleed Status: Acute (2) Diabetic nephropathy with proteinuria Status: Acute (3) CHF (congestive heart failure) Status: Chronic (4) ESRD (end stage renal disease) on dialysis Status: Chronic - Assessment and Plan (Free Text) Plan: Attempt dialysis today as BP stable with pressors ESAs as before Replete mag Remains a full code as per family wishes
[2016-11-17 08:22] LABS: METAMYELOCYTE 1 % (0-0); NEUTROPHIL 71 % (50-75); TOTAL CELLS COUNTED 100
[2016-11-17] MEDS: Magnesium Sulfate 1 gm in D5W 1 GM/100 ML BAG IVPB SCH ×2 (08:30→13:48)
[2016-11-17] MEDS: Albumin Human 25% (12.5 gm/50 ml) IV PRN (13:31)
[2016-11-17] MEDS: Epoetin Alfa 10,000 unit/ml Dialysis IV SCH (13:32)
--- NOTE | 2016-11-17 16:46 | CP.CCUPN ---
<Gretchen Brewer - Last Filed: 11/17/16 16:39> CCU Subjective - Physician Review Subjective (Free Text): Patient was seen and examined in the AM at bedside. Patient is non-verbal. NGT was replaced 11/16 and tube feedings were started. Patient did not receive dialysis yesterday but will be receiving dialysis today 11/17. 11/17/16 16:39 CCU Objective - Vital Signs / Intake & Output Vital Signs (Last 4 hours): Vital Signs Temp Pulse Resp BP Pulse Ox 11/17/16 16:30 75 17 86/23 L 100 11/17/16 16:15 75 24 82/25 L 100 11/17/16 16:14 80 23 82/25 L 100 11/17/16 16:00 97.6 F 79 22 100 11/17/16 15:30 81 17 100 11/17/16 15:14 73 19 90/30 L 100 11/17/16 15:00 79 20 100 11/17/16 14:30 83 15 100 11/17/16 14:09 82 20 87/27 L 100 11/17/16 14:06 84 16 64/32 L 11/17/16 14:00 78 18 100 11/17/16 13:54 79 27 H 98/29 L 100 11/17/16 13:52 92 H 25 H 73/13 L 100 11/17/16 13:36 87 25 H 76/37 L 100 11/17/16 13:30 79 27 H 97 11/17/16 13:20 74 22 94/32 L 100 11/17/16 13:14 82 24 100/34 L 100 11/17/16 13:05 85 22 87/25 L 100 11/17/16 13:00 83 26 H 100 11/17/16 12:51 87 22 85/24 L 100 Intake and Output (Last 8hrs): Intake & Output 11/17/16 11/17/16 11/17/16 06:59 14:59 22:59 Intake Total 922.5 466.8 360.8 Output Total 1 4 1 Balance 921.5 462.8 359.8 Intake: IV 194 58 254 Intake, IV Amount 413.5 373.8 106.8 Right Distal Port PICC 190 140 40 Right PICC 223.5 233.8 66.8 Tube Feeding 315 35 0 Output: Stool 1 4 1 Emesis 0 0 Other: # Bowel Movements 1 - Physical Exam Physical Exam Limitations: Positive for: Altered Mental Status, Clinical Condition Head: Positive for: Atraumatic Pupils: Positive for: PERRL Extroacular Muscles: Positive for: EOMI Conjunctiva: Positive for: Icteric Mouth: Positive for: Dry Nose (Internal): Positive for: Other (NGT was replaced 11/[address]) Neck: Positive for: Other (trach in place) Respiratory/Chest: Positive for: Rhonchi. Negative for: Clear to Auscultation, Respiratory Distress, Accessory Muscle Use Cardiovascular: Positive for: Regular Rate and Rhythm, Normal S1, S2. Negative for: Murmurs, Tachycardic, Bradycardic Abdomen: Negative for: Peritoneal Signs, Hernias Rectal: Negative for: Gross Blood Upper Extremity: Positive for: Cyanosis, Temperature Abnormalties, Other (cold fingers, ischemic 3rd digit on left hand ). Negative for: NORMAL PULSES, Neurovascularly Intact, Capillary Refill < 2s Lower Extremity: Positive for: Edema Neurological: Negative for: GCS=15, Speech Normal Skin: Positive for: Cold (bilateral hands), Other (gangrenous fingertips). Negative for: Warm Psychiatric: Positive for: Other (non-verbal ). Negative for: Alert, Oriented x 3, Normal Insight, Normal Concentration - Medications Active Medications: Active Medications Generic Name Dose Route Start Last Admin Trade Name Freq PRN Reason Stop Dose Admin Albumin Human 12.5 gm 11/16/16 14:45 11/17/16 13:31 Albumin Human 25% (12.5 Gm/50 Ml) IV 12.5 gm MWF PRN Administration LOW BLOOD PRESSURE Albuterol/Ipratropium 3 ml 11/12/16 14:00 11/17/16 13:29 Duoneb 3 Mg/0.5 Mg (3 Ml) Ud INH 3 ml RQ6 REKHA Administration Epoetin Sly 10,000 unit 11/12/16 10:00 11/17/16 13:32 Procrit IV 10,000 unit TTS REKHA Administration Norepinephrine Bitartrate 4 mg 254 mls @ 15.24 mls/hr 11/16/16 20:28 16:15 / Sodium Chloride IV 9 mcg/min .[id number] PRN 34.29 mls/hr TITRATE PER MD ORDER Administration Protocol 4 MCG/MIN Dextrose 1,000 mls @ 20 mls/hr 11/16/16 23:22 11/16/16 23:30 Dextrose 10% In Water IV 20 mls/hr .Q24H REKHA Administration Piperacillin Sod/Tazobactam Sod 2.25 gm in 50 mls @ 100 mls/hr 11/17/16 16:45 Zosyn 2.25 Gm Iv Premix IVPB Q6H [facility] Insulin Human Regular 0 unit 11/16/16 12:00 11/17/16 13:49 Novolin R SC Not Given Q6 [facility] Protocol Levothyroxine Sodium 175 mcg 11/18/16 06:30 Synthroid PO DAILY@0630 [facility] Pantoprazole Sodium 40 mg 11/05/16 11:15 11/17/16 09:34 Protonix Inj IVP 40 mg DAILY REKHA Administration - Patient Studies Lab Studies: Microbiology Studies 11/16/16 18:10 Gram Stain - Final Trachasp Sputum Culture - Preliminary Gram Positive Cocci Lab Studies 11/17/16 11/17/16 11/17/16 Range/Units 11:43 06:22 06:22 WBC 26.5 H (4.8-10.8) K/uL RBC 2.66 L (3.80-5.20) Mil/uL Hgb 8.2 L (11.0-16.0) g/dL Hct 25.0 L (34.0-47.0) % MCV 94.1 (81.0-99.0) fL MCH 30.7 (27.0-31.0) pg MCHC 32.6 L (33.0-37.0) g/dL RDW 20.1 H (11.5-14.5) % Plt Count 35 L (130-400) K/uL MPV 9.5 (7.2-11.7) fL Neut % (Auto) 92.9 H (50.0-75.0) % Lymph % (Auto) 3.3 L (20.0-40.0) % [place] % (Auto) 3.5 (0.0-10.0) % Eos % (Auto) 0.1 (0.0-4.0) % Baso % (Auto) 0.2 (0.0-2.0) % Neut # 24.6 H (1.8-7.0) K/uL Lymph # 0.9 L (1.0-4.3) K/uL [place] # 0.9 H (0.0-0.8) K/uL Eos # 0.0 (0.0-0.7) K/uL Baso # 0.1 (0.0-0.2) K/uL Neutrophils % (Manual) 71 (50-75) % Band Neutrophils % 26 H* (0-2) % Lymphocytes % (Manual) 1 L (20-40) % Monocytes % (Manual) 1 Metamyelocytes % 1 H (0-0) % Toxic Granulation Present Platelet Estimate Decreased L (NORMAL) Large Platelets Poikilocytosis (manual Anisocytosis (manual) Moderate Target Cells Slight Tear Drop Cells Puncture Site pCO2 (35-45) mm/Hg pO2 (80-100) mm/Hg HCO3 (21-28) mmol/L ABG pH (7.35-7.45) ABG Total CO2 (22-28) mmol/L ABG O2 Saturation (95-98) % ABG Base Excess (-2.0-3.0) mmol/L ABG Hemoglobin (11.7-17.4) g/dL ABG Carboxyhemoglobin (0.5-1.5) % POC ABG HHb (Measured) (0.0-5.0) % ABG Methemoglobin (0.0-3.0) % [place] Test A-a O2 Difference mm/Hg Respiratory Index Hgb O2 Saturation (95.0-98.0) % Mechanical Rate FiO2 % Tidal Volume PEEP Sodium 129 L (132-148) mmol/L Potassium 4.0 (3.6-5.2) mmol/L Chloride 92 L (98-107) mmol/L Carbon Dioxide 22 (22-30) mmol/L Anion Gap 19 (10-20) BUN 15 (7-17) mg/dL Creatinine 1.6 H (0.7-1.2) MG/DL Est GFR ( Amer) 38 Est GFR (Non-Af Amer) 32 POC Glucose (mg/dL) 129 H (65-110) mg/dL Random Glucose 75 (65-105) mg/dL Calcium 7.6 L (8.6-10.4) mg/dl Phosphorus 3.0 (2.5-4.5) mg/dL Magnesium 1.5 L (1.6-2.3) mg/dL Total Bilirubin 7.3 H (0.2-1.3) mg/dL AST 31 (14-36) U/L ALT 22 (9-52) U/L Alkaline Phosphatase 233 H (38-126) U/L Total Protein 6.5 (6.3-8.3) g/dL Albumin 2.5 L (3.5-5.0) g/dL Globulin 4.0 H (2.2-3.9) gm/dL Albumin/Globulin Ratio 0.6 L (1.0-2.1) 11/17/16 11/17/16 11/17/16 Range/Units 05:24 05:06 00:06 WBC (4.8-10.8) K/uL RBC (3.80-5.20) Mil/uL Hgb (11.0-16.0) g/dL Hct (34.0-47.0) % MCV (81.0-99.0) fL MCH (27.0-31.0) pg MCHC (33.0-37.0) g/dL RDW (11.5-14.5) % Plt Count (130-400) K/uL MPV (7.2-11.7) fL Neut % (Auto) (50.0-75.0) % Lymph % (Auto) (20.0-40.0) % [place] % (Auto) (0.0-10.0) % Eos % (Auto) (0.0-4.0) % Baso % (Auto) (0.0-2.0) % Neut # (1.8-7.0) K/uL Lymph # (1.0-4.3) K/uL [place] # (0.0-0.8) K/uL Eos # (0.0-0.7) K/uL Baso # (0.0-0.2) K/uL Neutrophils % (Manual) (50-75) % Band Neutrophils % (0-2) % Lymphocytes % (Manual) (20-40) % Monocytes % (Manual) Metamyelocytes % (0-0) % Toxic Granulation Platelet Estimate (NORMAL) Large Platelets Poikilocytosis (manual Anisocytosis (manual) Target Cells Tear Drop Cells Puncture Site R r pCO2 37 (35-45) mm/Hg pO2 78 L (80-100) mm/Hg HCO3 26.8 (21-28) mmol/L ABG pH 7.46 H (7.35-7.45) ABG Total CO2 27.4 (22-28) mmol/L ABG O2 Saturation 99.4 H (95-98) % ABG Base Excess 2.4 (-2.0-3.0) mmol/L ABG Hemoglobin 8.6 L (11.7-17.4) g/dL ABG Carboxyhemoglobin 2.6 H (0.5-1.5) % POC ABG HHb (Measured) 0.6 (0.0-5.0) % ABG Methemoglobin 1.4 (0.0-3.0) % [place] Test Pos A-a O2 Difference 232.0 mm/Hg Respiratory Index 3.0 Hgb O2 Saturation 95.4 (95.0-98.0) % Mechanical Rate 14 FiO2 50.0 % Tidal Volume 350 PEEP 5 Sodium (132-148) mmol/L Potassium (3.6-5.2) mmol/L Chloride (98-107) mmol/L Carbon Dioxide (22-30) mmol/L Anion Gap (10-20) BUN (7-17) mg/dL Creatinine (0.7-1.2) MG/DL Est GFR ( Amer) Est GFR (Non-Af Amer) POC Glucose (mg/dL) 79 102 (65-110) mg/dL Random Glucose (65-105) mg/dL Calcium (8.6-10.4) mg/dl Phosphorus (2.5-4.5) mg/dL Magnesium (1.6-2.3) mg/dL Total Bilirubin (0.2-1.3) mg/dL AST (14-36) U/L ALT (9-52) U/L Alkaline Phosphatase (38-126) U/L Total Protein (6.3-8.3) g/dL Albumin (3.5-5.0) g/dL Globulin (2.2-3.9) gm/dL Albumin/Globulin Ratio (1.0-2.1) 11/16/16 11/16/16 11/16/16 Range/Units 22:46 18:29 18:29 WBC 22.0 H D (4.8-10.8) K/uL RBC 2.76 L (3.80-5.20) Mil/uL Hgb 8.4 L (11.0-16.0) g/dL Hct 26.1 L (34.0-47.0) % MCV 94.5 (81.0-99.0) fL MCH 30.5 (27.0-31.0) pg MCHC 32.3 L (33.0-37.0) g/dL RDW 17.6 H (11.5-14.5) % Plt Count 33 L (130-400) K/uL MPV 8.7 (7.2-11.7) fL Neut % (Auto) 95.9 H (50.0-75.0) % Lymph % (Auto) 1.3 L (20.0-40.0) % [place] % (Auto) 1.7 (0.0-10.0) % Eos % (Auto) 0.0 (0.0-4.0) % Baso % (Auto) 1.1 (0.0-2.0) % Neut # 21.1 H (1.8-7.0) K/uL Lymph # 0.3 L (1.0-4.3) K/uL [place] # 0.4 (0.0-0.8) K/uL Eos # 0.0 (0.0-0.7) K/uL Baso # 0.2 (0.0-0.2) K/uL Neutrophils % (Manual) 95 H (50-75) % Band Neutrophils % (0-2) % Lymphocytes % (Manual) 5 L (20-40) % Monocytes % (Manual) TEST NOT PERFORMED Metamyelocytes % (0-0) % Toxic Granulation Platelet Estimate Decreased L (NORMAL) Large Platelets Present Poikilocytosis (manual Slight Anisocytosis (manual) Slight Target Cells Tear Drop Cells Slight Puncture Site pCO2 (35-45) mm/Hg pO2 (80-100) mm/Hg HCO3 (21-28) mmol/L ABG pH (7.35-7.45) ABG Total CO2 (22-28) mmol/L ABG O2 Saturation (95-98) % ABG Base Excess (-2.0-3.0) mmol/L ABG Hemoglobin (11.7-17.4) g/dL ABG Carboxyhemoglobin (0.5-1.5) % POC ABG HHb (Measured) (0.0-5.0) % ABG Methemoglobin (0.0-3.0) % [place] Test A-a O2 Difference mm/Hg Respiratory Index Hgb O2 Saturation (95.0-98.0) % Mechanical Rate FiO2 % Tidal Volume PEEP Sodium 128 L (132-148) mmol/L Potassium 3.7 (3.6-5.2) mmol/L Chloride 90 L (98-107) mmol/L Carbon Dioxide 25 (22-30) mmol/L Anion Gap 16 (10-20) BUN 13 (7-17) mg/dL Creatinine 1.6 H (0.7-1.2) MG/DL Est GFR ( Amer) 38 Est GFR (Non-Af Amer) 32 POC Glucose (mg/dL) 91 (65-110) mg/dL Random Glucose 160 H (65-105) mg/dL Calcium 8.0 L (8.6-10.4) mg/dl Phosphorus (2.5-4.5) mg/dL Magnesium (1.6-2.3) mg/dL Total Bilirubin 6.1 H (0.2-1.3) mg/dL AST 31 (14-36) U/L ALT 25 (9-52) U/L Alkaline Phosphatase 215 H (38-126) U/L Total Protein 6.2 L (6.3-8.3) g/dL Albumin 2.4 L (3.5-5.0) g/dL Globulin 3.8 (2.2-3.9) gm/dL Albumin/Globulin Ratio 0.6 L (1.0-2.1) 11/16/16 11/16/16 Range/Units 18:20 17:50 WBC (4.8-10.8) K/uL RBC (3.80-5.20) Mil/uL Hgb (11.0-16.0) g/dL Hct (34.0-47.0) % MCV (81.0-99.0) fL MCH (27.0-31.0) pg MCHC (33.0-37.0) g/dL RDW (11.5-14.5) % Plt Count (130-400) K/uL MPV (7.2-11.7) fL Neut % (Auto) (50.0-75.0) % Lymph % (Auto) (20.0-40.0) % [place] % (Auto) (0.0-10.0) % Eos % (Auto) (0.0-4.0) % Baso % (Auto) (0.0-2.0) % Neut # (1.8-7.0) K/uL Lymph # (1.0-4.3) K/uL [place] # (0.0-0.8) K/uL Eos # (0.0-0.7) K/uL Baso # (0.0-0.2) K/uL Neutrophils % (Manual) (50-75) % Band Neutrophils % (0-2) % Lymphocytes % (Manual) (20-40) % Monocytes % (Manual) Metamyelocytes % (0-0) % Toxic Granulation Platelet Estimate (NORMAL) Large Platelets Poikilocytosis (manual Anisocytosis (manual) Target Cells Tear Drop Cells Puncture Site pCO2 (35-45) mm/Hg pO2 (80-100) mm/Hg HCO3 (21-28) mmol/L ABG pH (7.35-7.45) ABG Total CO2 (22-28) mmol/L ABG O2 Saturation (95-98) % ABG Base Excess (-2.0-3.0) mmol/L ABG Hemoglobin (11.7-17.4) g/dL ABG Carboxyhemoglobin (0.5-1.5) % POC ABG HHb (Measured) (0.0-5.0) % ABG Methemoglobin (0.0-3.0) % [place] Test A-a O2 Difference mm/Hg Respiratory Index Hgb O2 Saturation (95.0-98.0) % Mechanical Rate FiO2 % Tidal Volume PEEP Sodium (132-148) mmol/L Potassium (3.6-5.2) mmol/L Chloride (98-107) mmol/L Carbon Dioxide (22-30) mmol/L Anion Gap (10-20) BUN (7-17) mg/dL Creatinine (0.7-1.2) MG/DL Est GFR ( Amer) Est GFR (Non-Af Amer) POC Glucose (mg/dL) 152 H 53 L (65-110) mg/dL Random Glucose (65-105) mg/dL Calcium (8.6-10.4) mg/dl Phosphorus (2.5-4.5) mg/dL Magnesium (1.6-2.3) mg/dL Total Bilirubin (0.2-1.3) mg/dL AST (14-36) U/L ALT (9-52) U/L Alkaline Phosphatase (38-126) U/L Total Protein (6.3-8.3) g/dL Albumin (3.5-5.0) g/dL Globulin (2.2-3.9) gm/dL Albumin/Globulin Ratio (1.0-2.1) Laboratory Results - last 24 hr 11/16/16 11/16/16 11/16/16 17:50 18:20 18:29 WBC 22.0 H D RBC 2.76 L Hgb 8.4 L Hct 26.1 L MCV 94.5 MCH 30.5 MCHC 32.3 L RDW 17.6 H Plt Count 33 L MPV 8.7 Neut % (Auto) 95.9 H Lymph % (Auto) 1.3 L [place] % (Auto) 1.7 Eos % (Auto) 0.0 Baso % (Auto) 1.1 Neut # 21.1 H Lymph # 0.3 L [place] # 0.4 Eos # 0.0 Baso # 0.2 Neutrophils % (Manual) 95 H Band Neutrophils % Lymphocytes % (Manual) 5 L Monocytes % (Manual) TEST NOT PERFORMED Metamyelocytes % Toxic Granulation Platelet Estimate Decreased L Large Platelets Present Poikilocytosis (manual Slight Anisocytosis (manual) Slight Target Cells Tear Drop Cells Slight Puncture Site pCO2 pO2 HCO3 ABG pH ABG Total CO2 ABG O2 Saturation ABG Base Excess ABG Hemoglobin ABG Carboxyhemoglobin POC ABG HHb (Measured) ABG Methemoglobin [place] Test A-a O2 Difference Respiratory Index Hgb O2 Saturation Mechanical Rate FiO2 Tidal Volume PEEP Sodium Potassium Chloride Carbon Dioxide Anion Gap BUN Creatinine Est GFR ( Amer) Est GFR (Non-Af Amer) POC Glucose (mg/dL) 53 L 152 H Random Glucose Calcium Phosphorus Magnesium Total Bilirubin AST ALT Alkaline Phosphatase Total Protein Albumin Globulin Albumin/Globulin Ratio 11/16/16 11/16/16 11/17/16 18:29 22:46 00:06 WBC RBC Hgb Hct MCV MCH MCHC RDW Plt Count MPV Neut % (Auto) Lymph % (Auto) [place] % (Auto) Eos % (Auto) Baso % (Auto) Neut # Lymph # [place] # Eos # Baso # Neutrophils % (Manual) Band Neutrophils % Lymphocytes % (Manual) Monocytes % (Manual) Metamyelocytes % Toxic Granulation Platelet Estimate Large Platelets Poikilocytosis (manual Anisocytosis (manual) Target Cells Tear Drop Cells Puncture Site pCO2 pO2 HCO3 ABG pH ABG Total CO2 ABG O2 Saturation ABG Base Excess ABG Hemoglobin ABG Carboxyhemoglobin POC ABG HHb (Measured) ABG Methemoglobin [place] Test A-a O2 Difference Respiratory Index Hgb O2 Saturation Mechanical Rate FiO2 Tidal Volume PEEP Sodium 128 L Potassium 3.7 Chloride 90 L Carbon Dioxide 25 Anion Gap 16 BUN 13 Creatinine 1.6 H Est GFR ( Amer) 38 Est GFR (Non-Af Amer) 32 POC Glucose (mg/dL) 91 102 Random Glucose 160 H Calcium 8.0 L Phosphorus Magnesium Total Bilirubin 6.1 H AST 31 ALT 25 Alkaline Phosphatase 215 H Total Protein 6.2 L Albumin 2.4 L Globulin 3.8 Albumin/Globulin Ratio 0.6 L 11/17/16 11/17/16 11/17/16 05:06 05:24 06:22 WBC 26.5 H RBC 2.66 L Hgb 8.2 L Hct 25.0 L MCV 94.1 MCH 30.7 MCHC 32.6 L RDW 20.1 H Plt Count 35 L MPV 9.5 Neut % (Auto) 92.9 H Lymph % (Auto) 3.3 L [place] % (Auto) 3.5 Eos % (Auto) 0.1 Baso % (Auto) 0.2 Neut # 24.6 H Lymph # 0.9 L [place] # 0.9 H Eos # 0.0 Baso # 0.1 Neutrophils % (Manual) 71 Band Neutrophils % 26 H* Lymphocytes % (Manual) 1 L Monocytes % (Manual) 1 Metamyelocytes % 1 H Toxic Granulation Present Platelet Estimate Decreased L Large Platelets Poikilocytosis (manual Anisocytosis (manual) Moderate Target Cells Slight Tear Drop Cells Puncture Site R r pCO2 37 pO2 78 L HCO3 26.8 ABG pH 7.46 H ABG Total CO2 27.4 ABG O2 Saturation 99.4 H ABG Base Excess 2.4 ABG Hemoglobin 8.6 L ABG Carboxyhemoglobin 2.6 H POC ABG HHb (Measured) 0.6 ABG Methemoglobin 1.4 [place] Test Pos A-a O2 Difference 232.0 Respiratory Index 3.0 Hgb O2 Saturation 95.4 Mechanical Rate 14 FiO2 50.0 Tidal Volume 350 PEEP 5 Sodium Potassium Chloride Carbon Dioxide Anion Gap BUN Creatinine Est GFR ( Amer) Est GFR (Non-Af Amer) POC Glucose (mg/dL) 79 Random Glucose Calcium Phosphorus Magnesium Total Bilirubin AST ALT Alkaline Phosphatase Total Protein Albumin Globulin Albumin/Globulin Ratio 11/17/16 11/17/16 06:22 11:43 WBC RBC Hgb Hct MCV MCH MCHC RDW Plt Count MPV Neut % (Auto) Lymph % (Auto) [place] % (Auto) Eos % (Auto) Baso % (Auto) Neut # Lymph # [place] # Eos # Baso # Neutrophils % (Manual) Band Neutrophils % Lymphocytes % (Manual) Monocytes % (Manual) Metamyelocytes % Toxic Granulation Platelet Estimate Large Platelets Poikilocytosis (manual Anisocytosis (manual) Target Cells Tear Drop Cells Puncture Site pCO2 pO2 HCO3 ABG pH ABG Total CO2 ABG O2 Saturation ABG Base Excess ABG Hemoglobin ABG Carboxyhemoglobin POC ABG HHb (Measured) ABG Methemoglobin [place] Test A-a O2 Difference Respiratory Index Hgb O2 Saturation Mechanical Rate FiO2 Tidal Volume PEEP Sodium 129 L Potassium 4.0 Chloride 92 L Carbon Dioxide 22 Anion Gap 19 BUN 15 Creatinine 1.6 H Est GFR ( Amer) 38 Est GFR (Non-Af Amer) 32 POC Glucose (mg/dL) 129 H Random Glucose 75 Calcium 7.6 L Phosphorus 3.0 Magnesium 1.5 L Total Bilirubin 7.3 H AST 31 ALT 22 Alkaline Phosphatase 233 H Total Protein 6.5 Albumin 2.5 L Globulin 4.0 H Albumin/Globulin Ratio 0.6 L Fingerstick Blood Sugar Results: 129 Review of Systems - Review of Systems Systems not reviewed;Unavailable: Intubated Critical Care Progress Note - Nutrition Nutrition: Nutrition Category Date Time Status NPO Diet [DIET] Diets 11/17/16 Breakfast Active Assessment/Plan - Assessment and Plan (Free Text) Plan: 76F admitted for GI bleed; s/p flexible sigmoidoscopy and multiple transfusions. Patient was transferred from the medical floor to the ICU because patient was noted to have a hypotensive state, bradycardia and lots of mucus secretion. Plan: Neuro: - GCS 9T - at baseline likely 2/2 metabolic encephalopathy - Patient in non-verbal Pulm: - Chronic Respiratory failure - Intubated CV: - Septic Shock - BP mildly improved - systolic now 100-110s - Norepinephrine is currently stopped 11/09 - Dr Long on board. Pt high risk for any procedure but can proceed if clinical indicated - Left hand with ischemic necrosis - consult placed for vasc Dr Buck - likely nothing to do Heme: - will cont to monitor H/H and for rectal bleed Renal: - ESRD - HD as per Dr Mcfarland - Dr Trent on consult --> help appreciated Endo: -Insulin sliding scale - patient's daughter refuses insulin GI: Ischemic colitis with hemorrhage, not a candidate for intervention as this would be medically futile. - NGT placed 11/17 - Tube Feeding - f/u PEG tube placement -IR Consult: Dr. Walker --> help appreciated - Protonix for GI bleed - GI Consult: Dr. oYung --> help appreciated ID: - Septic Shock - Meropenem was discontinued 11/07 (patient received a 13 day course) - Trach - sputum culture: Gram + Cocci - Zosyn Pt chronically ill, prognosis very poor DVT proph - SCDs, no anti-coagulation due to acute bleed GI proph - Protonix 40mg IVP daily Care Management Consult --> help appreciated - Svp Care Code status - Full Case discussed with Dr. Curry Brewer PGY-1 <Ortiz Zapien - Last Filed: 11/17/16 18:09> CCU Objective - Vital Signs / Intake & Output Vital Signs (Last 4 hours): Vital Signs Temp Pulse Resp BP Pulse Ox 11/17/16 17:30 78 12 101/51 L 100 11/17/16 17:00 85 26 H 100 11/17/16 16:30 75 17 86/23 L 100 11/17/16 16:15 75 24 82/25 L 100 11/17/16 16:14 80 23 82/25 L 100 11/17/16 16:00 97.6 F 79 22 100 11/17/16 15:30 81 17 100 11/17/16 15:14 73 19 90/30 L 100 11/17/16 15:00 79 20 100 11/17/16 14:30 83 15 100 11/17/16 14:09 82 20 87/27 L 100 Intake and Output (Last 8hrs): Intake & Output 11/17/16 11/17/16 11/17/16 06:59 14:59 22:59 Intake Total 922.5 856.8 419.2 Output Total 1 4 2 Balance 921.5 852.8 417.2 Intake: IV 194 58 254 Intake, IV Amount 413.5 763.8 130.2 Right Distal Port PICC 190 530 60 Right PICC 223.5 233.8 70.2 Tube Feeding 315 35 35 Output: Stool 1 4 2 Emesis 0 0 Other: # Bowel Movements 1 - Medications Active Medications: Active Medications Generic Name Dose Route Start Last Admin Trade Name Freq PRN Reason Stop Dose Admin Albumin Human 12.5 gm 11/16/16 14:45 11/17/16 13:31 Albumin Human 25% (12.5 Gm/50 Ml) IV 12.5 gm MWF PRN Administration LOW BLOOD PRESSURE Albuterol/Ipratropium 3 ml 11/12/16 14:00 11/17/16 13:29 Duoneb 3 Mg/0.5 Mg (3 Ml) Ud INH 3 ml RQ6 REKHA Administration Epoetin Sly 10,000 unit 11/12/16 10:00 11/17/16 13:32 Procrit IV 10,000 unit TTS REKHA Administration Norepinephrine Bitartrate 4 mg 254 mls @ 15.24 mls/hr 11/16/16 20:28 16:15 / Sodium Chloride IV 9 mcg/min .[id number] PRN 34.29 mls/hr TITRATE PER MD ORDER Administration Protocol 4 MCG/MIN Dextrose 1,000 mls @ 20 mls/hr 11/16/16 23:22 11/16/16 23:30 Dextrose 10% In Water IV 20 mls/hr .Q24H REKHA Administration Piperacillin Sod/Tazobactam Sod 2.25 gm in 50 mls @ 100 mls/hr 11/17/16 18:00 11/17/16 17:49 Zosyn 2.25 Gm Iv Premix IVPB 100 mls/hr Q6H REKHA Administration Insulin Human Regular 0 unit 11/16/16 12:00 11/17/16 17:50 Novolin R SC Not Given Q6 [facility] Protocol Levothyroxine Sodium 175 mcg 11/18/16 06:30 Synthroid PO DAILY@0630 REKHA Pantoprazole Sodium 40 mg 11/05/16 11:15 11/17/16 09:34 Protonix Inj IVP 40 mg DAILY REKHA Administration - Patient Studies Lab Studies: Microbiology Studies 11/16/16 18:10 Gram Stain - Final Trachasp Sputum Culture - Preliminary Gram Positive Cocci Lab Studies 11/17/16 11/17/16 11/17/16 Range/Units 17:45 11:43 06:22 WBC (4.8-10.8) K/uL RBC (3.80-5.20) Mil/uL Hgb (11.0-16.0) g/dL Hct (34.0-47.0) % MCV (81.0-99.0) fL MCH (27.0-31.0) pg MCHC (33.0-37.0) g/dL RDW (11.5-14.5) % Plt Count (130-400) K/uL MPV (7.2-11.7) fL Neut % (Auto) (50.0-75.0) % Lymph % (Auto) (20.0-40.0) % [place] % (Auto) (0.0-10.0) % Eos % (Auto) (0.0-4.0) % Baso % (Auto) (0.0-2.0) % Neut # (1.8-7.0) K/uL Lymph # (1.0-4.3) K/uL [place] # (0.0-0.8) K/uL Eos # (0.0-0.7) K/uL Baso # (0.0-0.2) K/uL Neutrophils % (Manual) (50-75) % Band Neutrophils % (0-2) % Lymphocytes % (Manual) (20-40) % Monocytes % (Manual) Metamyelocytes % (0-0) % Toxic Granulation Platelet Estimate (NORMAL) Large Platelets Poikilocytosis (manual Anisocytosis (manual) Target Cells Tear Drop Cells Puncture Site pCO2 (35-45) mm/Hg pO2 (80-100) mm/Hg HCO3 (21-28) mmol/L ABG pH (7.35-7.45) ABG Total CO2 (22-28) mmol/L ABG O2 Saturation (95-98) % ABG Base Excess (-2.0-3.0) mmol/L ABG Hemoglobin (11.7-17.4) g/dL ABG Carboxyhemoglobin (0.5-1.5) % POC ABG HHb (Measured) (0.0-5.0) % ABG Methemoglobin (0.0-3.0) % [place] Test A-a O2 Difference mm/Hg Respiratory Index Hgb O2 Saturation (95.0-98.0) % Mechanical Rate FiO2 % Tidal Volume PEEP Sodium 129 L (132-148) mmol/L Potassium 4.0 (3.6-5.2) mmol/L Chloride 92 L (98-107) mmol/L Carbon Dioxide 22 (22-30) mmol/L Anion Gap 19 (10-20) BUN 15 (7-17) mg/dL Creatinine 1.6 H (0.7-1.2) MG/DL Est GFR ( Amer) 38 Est GFR (Non-Af Amer) 32 POC Glucose (mg/dL) 85 129 H (65-110) mg/dL Random Glucose 75 (65-105) mg/dL Calcium 7.6 L (8.6-10.4) mg/dl Phosphorus 3.0 (2.5-4.5) mg/dL Magnesium 1.5 L (1.6-2.3) mg/dL Total Bilirubin 7.3 H (0.2-1.3) mg/dL AST 31 (14-36) U/L ALT 22 (9-52) U/L Alkaline Phosphatase 233 H (38-126) U/L Total Protein 6.5 (6.3-8.3) g/dL Albumin 2.5 L (3.5-5.0) g/dL Globulin 4.0 H (2.2-3.9) gm/dL Albumin/Globulin Ratio 0.6 L (1.0-2.1) 11/17/16 11/17/16 11/17/16 Range/Units 06:22 05:24 05:06 WBC 26.5 H (4.8-10.8) K/uL RBC 2.66 L (3.80-5.20) Mil/uL Hgb 8.2 L (11.0-16.0) g/dL Hct 25.0 L (34.0-47.0) % MCV 94.1 (81.0-99.0) fL MCH 30.7 (27.0-31.0) pg MCHC 32.6 L (33.0-37.0) g/dL RDW 20.1 H (11.5-14.5) % Plt Count 35 L (130-400) K/uL MPV 9.5 (7.2-11.7) fL Neut % (Auto) 92.9 H (50.0-75.0) % Lymph % (Auto) 3.3 L (20.0-40.0) % [place] % (Auto) 3.5 (0.0-10.0) % Eos % (Auto) 0.1 (0.0-4.0) % Baso % (Auto) 0.2 (0.0-2.0) % Neut # 24.6 H (1.8-7.0) K/uL Lymph # 0.9 L (1.0-4.3) K/uL [place] # 0.9 H (0.0-0.8) K/uL Eos # 0.0 (0.0-0.7) K/uL Baso # 0.1 (0.0-0.2) K/uL Neutrophils % (Manual) 71 (50-75) % Band Neutrophils % 26 H* (0-2) % Lymphocytes % (Manual) 1 L (20-40) % Monocytes % (Manual) 1 Metamyelocytes % 1 H (0-0) % Toxic Granulation Present Platelet Estimate Decreased L (NORMAL) Large Platelets Poikilocytosis (manual Anisocytosis (manual) Moderate Target Cells Slight Tear Drop Cells Puncture Site R r pCO2 37 (35-45) mm/Hg pO2 78 L (80-100) mm/Hg HCO3 26.8 (21-28) mmol/L ABG pH 7.46 H (7.35-7.45) ABG Total CO2 27.4 (22-28) mmol/L ABG O2 Saturation 99.4 H (95-98) % ABG Base Excess 2.4 (-2.0-3.0) mmol/L ABG Hemoglobin 8.6 L (11.7-17.4) g/dL ABG Carboxyhemoglobin 2.6 H (0.5-1.5) % POC ABG HHb (Measured) 0.6 (0.0-5.0) % ABG Methemoglobin 1.4 (0.0-3.0) % [place] Test Pos A-a O2 Difference 232.0 mm/Hg Respiratory Index 3.0 Hgb O2 Saturation 95.4 (95.0-98.0) % Mechanical Rate 14 FiO2 50.0 % Tidal Volume 350 PEEP 5 Sodium (132-148) mmol/L Potassium (3.6-5.2) mmol/L Chloride (98-107) mmol/L Carbon Dioxide (22-30) mmol/L Anion Gap (10-20) BUN (7-17) mg/dL Creatinine (0.7-1.2) MG/DL Est GFR ( Amer) Est GFR (Non-Af Amer) POC Glucose (mg/dL) 79 (65-110) mg/dL Random Glucose (65-105) mg/dL Calcium (8.6-10.4) mg/dl Phosphorus (2.5-4.5) mg/dL Magnesium (1.6-2.3) mg/dL Total Bilirubin (0.2-1.3) mg/dL AST (14-36) U/L ALT (9-52) U/L Alkaline Phosphatase (38-126) U/L Total Protein (6.3-8.3) g/dL Albumin (3.5-5.0) g/dL Globulin (2.2-3.9) gm/dL Albumin/Globulin Ratio (1.0-2.1) 11/17/16 11/16/16 11/16/16 Range/Units 00:06 22:46 18:29 WBC (4.8-10.8) K/uL RBC (3.80-5.20) Mil/uL Hgb (11.0-16.0) g/dL Hct (34.0-47.0) % MCV (81.0-99.0) fL MCH (27.0-31.0) pg MCHC (33.0-37.0) g/dL RDW (11.5-14.5) % Plt Count (130-400) K/uL MPV (7.2-11.7) fL Neut % (Auto) (50.0-75.0) % Lymph % (Auto) (20.0-40.0) % [place] % (Auto) (0.0-10.0) % Eos % (Auto) (0.0-4.0) % Baso % (Auto) (0.0-2.0) % Neut # (1.8-7.0) K/uL Lymph # (1.0-4.3) K/uL [place] # (0.0-0.8) K/uL Eos # (0.0-0.7) K/uL Baso # (0.0-0.2) K/uL Neutrophils % (Manual) (50-75) % Band Neutrophils % (0-2) % Lymphocytes % (Manual) (20-40) % Monocytes % (Manual) Metamyelocytes % (0-0) % Toxic Granulation Platelet Estimate (NORMAL) Large Platelets Poikilocytosis (manual Anisocytosis (manual) Target Cells Tear Drop Cells Puncture Site pCO2 (35-45) mm/Hg pO2 (80-100) mm/Hg HCO3 (21-28) mmol/L ABG pH (7.35-7.45) ABG Total CO2 (22-28) mmol/L ABG O2 Saturation (95-98) % ABG Base Excess (-2.0-3.0) mmol/L ABG Hemoglobin (11.7-17.4) g/dL ABG Carboxyhemoglobin (0.5-1.5) % POC ABG HHb (Measured) (0.0-5.0) % ABG Methemoglobin (0.0-3.0) % [place] Test A-a O2 Difference mm/Hg Respiratory Index Hgb O2 Saturation (95.0-98.0) % Mechanical Rate FiO2 % Tidal Volume PEEP Sodium 128 L (132-148) mmol/L Potassium 3.7 (3.6-5.2) mmol/L Chloride 90 L (98-107) mmol/L Carbon Dioxide 25 (22-30) mmol/L Anion Gap 16 (10-20) BUN 13 (7-17) mg/dL Creatinine 1.6 H (0.7-1.2) MG/DL Est GFR ( Amer) 38 Est GFR (Non-Af Amer) 32 POC Glucose (mg/dL) 102 91 (65-110) mg/dL Random Glucose 160 H (65-105) mg/dL Calcium 8.0 L (8.6-10.4) mg/dl Phosphorus (2.5-4.5) mg/dL Magnesium (1.6-2.3) mg/dL Total Bilirubin 6.1 H (0.2-1.3) mg/dL AST 31 (14-36) U/L ALT 25 (9-52) U/L Alkaline Phosphatase 215 H (38-126) U/L Total Protein 6.2 L (6.3-8.3) g/dL Albumin 2.4 L (3.5-5.0) g/dL Globulin 3.8 (2.2-3.9) gm/dL Albumin/Globulin Ratio 0.6 L (1.0-2.1) 11/16/16 11/16/16 11/16/16 Range/Units 18:29 18:20 17:50 WBC 22.0 H D (4.8-10.8) K/uL RBC 2.76 L (3.80-5.20) Mil/uL Hgb 8.4 L (11.0-16.0) g/dL Hct 26.1 L (34.0-47.0) % MCV 94.5 (81.0-99.0) fL MCH 30.5 (27.0-31.0) pg MCHC 32.3 L (33.0-37.0) g/dL RDW 17.6 H (11.5-14.5) % Plt Count 33 L (130-400) K/uL MPV 8.7 (7.2-11.7) fL Neut % (Auto) 95.9 H (50.0-75.0) % Lymph % (Auto) 1.3 L (20.0-40.0) % [place] % (Auto) 1.7 (0.0-10.0) % Eos % (Auto) 0.0 (0.0-4.0) % Baso % (Auto) 1.1 (0.0-2.0) % Neut # 21.1 H (1.8-7.0) K/uL Lymph # 0.3 L (1.0-4.3) K/uL [place] # 0.4 (0.0-0.8) K/uL Eos # 0.0 (0.0-0.7) K/uL Baso # 0.2 (0.0-0.2) K/uL Neutrophils % (Manual) 95 H (50-75) % Band Neutrophils % (0-2) % Lymphocytes % (Manual) 5 L (20-40) % Monocytes % (Manual) TEST NOT PERFORMED Metamyelocytes % (0-0) % Toxic Granulation Platelet Estimate Decreased L (NORMAL) Large Platelets Present Poikilocytosis (manual Slight Anisocytosis (manual) Slight Target Cells Tear Drop Cells Slight Puncture Site pCO2 (35-45) mm/Hg pO2 (80-100) mm/Hg HCO3 (21-28) mmol/L ABG pH (7.35-7.45) ABG Total CO2 (22-28) mmol/L ABG O2 Saturation (95-98) % ABG Base Excess (-2.0-3.0) mmol/L ABG Hemoglobin (11.7-17.4) g/dL ABG Carboxyhemoglobin (0.5-1.5) % POC ABG HHb (Measured) (0.0-5.0) % ABG Methemoglobin (0.0-3.0) % [place] Test A-a O2 Difference mm/Hg Respiratory Index Hgb O2 Saturation (95.0-98.0) % Mechanical Rate FiO2 % Tidal Volume PEEP Sodium (132-148) mmol/L Potassium (3.6-5.2) mmol/L Chloride (98-107) mmol/L Carbon Dioxide (22-30) mmol/L Anion Gap (10-20) BUN (7-17) mg/dL Creatinine (0.7-1.2) MG/DL Est GFR ( Amer) Est GFR (Non-Af Amer) POC Glucose (mg/dL) 152 H 53 L (65-110) mg/dL Random Glucose (65-105) mg/dL Calcium (8.6-10.4) mg/dl Phosphorus (2.5-4.5) mg/dL Magnesium (1.6-2.3) mg/dL Total Bilirubin (0.2-1.3) mg/dL AST (14-36) U/L ALT (9-52) U/L Alkaline Phosphatase (38-126) U/L Total Protein (6.3-8.3) g/dL Albumin (3.5-5.0) g/dL Globulin (2.2-3.9) gm/dL Albumin/Globulin Ratio (1.0-2.1) Laboratory Results - last 24 hr 11/16/16 11/16/16 11/16/16 17:50 18:20 18:29 WBC 22.0 H D RBC 2.76 L Hgb 8.4 L Hct 26.1 L MCV 94.5 MCH 30.5 MCHC 32.3 L RDW 17.6 H Plt Count 33 L MPV 8.7 Neut % (Auto) 95.9 H Lymph % (Auto) 1.3 L [place] % (Auto) 1.7 Eos % (Auto) 0.0 Baso % (Auto) 1.1 Neut # 21.1 H Lymph # 0.3 L [place] # 0.4 Eos # 0.0 Baso # 0.2 Neutrophils % (Manual) 95 H Band Neutrophils % Lymphocytes % (Manual) 5 L Monocytes % (Manual) TEST NOT PERFORMED Metamyelocytes % Toxic Granulation Platelet Estimate Decreased L Large Platelets Present Poikilocytosis (manual Slight Anisocytosis (manual) Slight Target Cells Tear Drop Cells Slight Puncture Site pCO2 pO2 HCO3 ABG pH ABG Total CO2 ABG O2 Saturation ABG Base Excess ABG Hemoglobin ABG Carboxyhemoglobin POC ABG HHb (Measured) ABG Methemoglobin [place] Test A-a O2 Difference Respiratory Index Hgb O2 Saturation Mechanical Rate FiO2 Tidal Volume PEEP Sodium Potassium Chloride Carbon Dioxide Anion Gap BUN Creatinine Est GFR ( Amer) Est GFR (Non-Af Amer) POC Glucose (mg/dL) 53 L 152 H Random Glucose Calcium Phosphorus Magnesium Total Bilirubin AST ALT Alkaline Phosphatase Total Protein Albumin Globulin Albumin/Globulin Ratio 11/16/16 11/16/16 11/17/16 18:29 22:46 00:06 WBC RBC Hgb Hct MCV MCH MCHC RDW Plt Count MPV Neut % (Auto) Lymph % (Auto) [place] % (Auto) Eos % (Auto) Baso % (Auto) Neut # Lymph # [place] # Eos # Baso # Neutrophils % (Manual) Band Neutrophils % Lymphocytes % (Manual) Monocytes % (Manual) Metamyelocytes % Toxic Granulation Platelet Estimate Large Platelets Poikilocytosis (manual Anisocytosis (manual) Target Cells Tear Drop Cells Puncture Site pCO2 pO2 HCO3 ABG pH ABG Total CO2 ABG O2 Saturation ABG Base Excess ABG Hemoglobin ABG Carboxyhemoglobin POC ABG HHb (Measured) ABG Methemoglobin [place] Test A-a O2 Difference Respiratory Index Hgb O2 Saturation Mechanical Rate FiO2 Tidal Volume PEEP Sodium 128 L Potassium 3.7 Chloride 90 L Carbon Dioxide 25 Anion Gap 16 BUN 13 Creatinine 1.6 H Est GFR ( Amer) 38 Est GFR (Non-Af Amer) 32 POC Glucose (mg/dL) 91 102 Random Glucose 160 H Calcium 8.0 L Phosphorus Magnesium Total Bilirubin 6.1 H AST 31 ALT 25 Alkaline Phosphatase 215 H Total Protein 6.2 L Albumin 2.4 L Globulin 3.8 Albumin/Globulin Ratio 0.6 L 11/17/16 11/17/16 11/17/16 05:06 05:24 06:22 WBC 26.5 H RBC 2.66 L Hgb 8.2 L Hct 25.0 L MCV 94.1 MCH 30.7 MCHC 32.6 L RDW 20.1 H Plt Count 35 L MPV 9.5 Neut % (Auto) 92.9 H Lymph % (Auto) 3.3 L [place] % (Auto) 3.5 Eos % (Auto) 0.1 Baso % (Auto) 0.2 Neut # 24.6 H Lymph # 0.9 L [place] # 0.9 H Eos # 0.0 Baso # 0.1 Neutrophils % (Manual) 71 Band Neutrophils % 26 H* Lymphocytes % (Manual) 1 L Monocytes % (Manual) 1 Metamyelocytes % 1 H Toxic Granulation Present Platelet Estimate Decreased L Large Platelets Poikilocytosis (manual Anisocytosis (manual) Moderate Target Cells Slight Tear Drop Cells Puncture Site R r pCO2 37 pO2 78 L HCO3 26.8 ABG pH 7.46 H ABG Total CO2 27.4 ABG O2 Saturation 99.4 H ABG Base Excess 2.4 ABG Hemoglobin 8.6 L ABG Carboxyhemoglobin 2.6 H POC ABG HHb (Measured) 0.6 ABG Methemoglobin 1.4 [place] Test Pos A-a O2 Difference 232.0 Respiratory Index 3.0 Hgb O2 Saturation 95.4 Mechanical Rate 14 FiO2 50.0 Tidal Volume 350 PEEP 5 Sodium Potassium Chloride Carbon Dioxide Anion Gap BUN Creatinine Est GFR ( Amer) Est GFR (Non-Af Amer) POC Glucose (mg/dL) 79 Random Glucose Calcium Phosphorus Magnesium Total Bilirubin AST ALT Alkaline Phosphatase Total Protein Albumin Globulin Albumin/Globulin Ratio 11/17/16 11/17/16 11/17/16 06:22 11:43 17:45 WBC RBC Hgb Hct MCV MCH MCHC RDW Plt Count MPV Neut % (Auto) Lymph % (Auto) [place] % (Auto) Eos % (Auto) Baso % (Auto) Neut # Lymph # [place] # Eos # Baso # Neutrophils % (Manual) Band Neutrophils % Lymphocytes % (Manual) Monocytes % (Manual) Metamyelocytes % Toxic Granulation Platelet Estimate Large Platelets Poikilocytosis (manual Anisocytosis (manual) Target Cells Tear Drop Cells Puncture Site pCO2 pO2 HCO3 ABG pH ABG Total CO2 ABG O2 Saturation ABG Base Excess ABG Hemoglobin ABG Carboxyhemoglobin POC ABG HHb (Measured) ABG Methemoglobin [place] Test A-a O2 Difference Respiratory Index Hgb O2 Saturation Mechanical Rate FiO2 Tidal Volume PEEP Sodium 129 L Potassium 4.0 Chloride 92 L Carbon Dioxide 22 Anion Gap 19 BUN 15 Creatinine 1.6 H Est GFR ( Amer) 38 Est GFR (Non-Af Amer) 32 POC Glucose (mg/dL) 129 H 85 Random Glucose 75 Calcium 7.6 L Phosphorus 3.0 Magnesium 1.5 L Total Bilirubin 7.3 H AST 31 ALT 22 Alkaline Phosphatase 233 H Total Protein 6.5 Albumin 2.5 L Globulin 4.0 H Albumin/Globulin Ratio 0.6 L Critical Care Progress Note - Nutrition Nutrition: Nutrition Category Date Time Status NPO Diet [DIET] Diets 11/17/16 Breakfast Active Assessment/Plan (1) Leucocytosis Current Visit: Yes Status: Acute Attending/Attestation - Attestation I have personally seen and examined this patient.: Yes I have fully participated in the care of the patient.: Yes I have reviewed all pertinent clinical information: Yes Notes (Text): 11/17/16 18:07 I have seen and examined the patient. Medical records, lab studies, and imaging were reviewed by me and a management plan was formulated on multidisciplinary rounds with resident Dr. Brewer. I agree with their above documented assessment and plan. Patient is again requiring ventilator support. Will arrange for PEG placement. Patient will need LTAC placement. She will not improve enough to get home as daughter wishes. Critical Care Time 35 minutes. Multi-disciplinary rounds were performed with house staff, nursing, speech therapy, respiratory therapy, pharmacy and nutrition with integrated input from the primary team/attending and other consulting services. The documented time is cumulative and includes review of patient data/exams/labs/chart review and examination of the patient on rounds and throughout the day; time is exclusive of any procedures or teaching time.
[2016-11-17] MEDS: Piperacill/Tazo 2.25gm in Dex 2.25 GM/50 ML BAG IVPB SCH (17:49)
--- NOTE | 2016-11-17 23:04 | CP.PCM.PN ---
Subjective - Date & Time of Evaluation Date of Evaluation: 11/17/16 Time of Evaluation: 13:00 - Subjective Subjective: Patient seen and evaluated Clinically better Daughter at bedside Objective - Vital Signs/Intake and Output Vital Signs (last 24 hours): Temp Pulse Resp BP Pulse Ox 97.6 F 65 19 72/25 L 100 11/17/16 16:00 11/17/16 22:19 11/17/16 22:19 11/17/16 22:19 11/17/16 22:19 Intake and Output: 11/17/16 11/18/16 18:59 06:59 Intake Total 1444.4 88.4 Output Total 8 1 Balance 1436.4 87.4 - Medications Medications: Current Medications Albumin Human (Albumin Human 25% (12.5 Gm/50 Ml)) 12.5 gm IV MWF PRN PRN Reason: LOW BLOOD PRESSURE Last Admin: 11/17/16 13:31 Dose: 12.5 gm Albuterol/Ipratropium (Duoneb 3 Mg/0.5 Mg (3 Ml) Ud) 3 ml INH RQ6 REKHA Last Admin: 11/17/16 19:36 Dose: 3 ml Epoetin Sly (Procrit) 10,000 unit IV TTS REKHA Last Admin: 11/17/16 13:32 Dose: 10,000 unit Norepinephrine Bitartrate 4 mg (/ Sodium Chloride) 254 mls @ 15.24 mls/hr IV .[id number] PRN; Protocol; 4 MCG/MIN PRN Reason: TITRATE PER MD ORDER Last Admin: 11/17/16 16:15 Dose: 9 mcg/min, 34.29 mls/hr Dextrose (Dextrose 10% In Water) 1,000 mls @ 20 mls/hr IV .Q24H REKHA Last Admin: 11/16/16 23:30 Dose: 20 mls/hr Piperacillin Sod/Tazobactam Sod (Zosyn 2.25 Gm Iv Premix) 2.25 gm in 50 mls @ 100 mls/hr IVPB Q6H REKHA Last Admin: 11/17/16 17:49 Dose: 100 mls/hr Insulin Human Regular (Novolin R) 0 unit SC Q6 REKHA PRN Reason: Protocol Last Admin: 11/17/16 17:50 Dose: Not Given Levothyroxine Sodium (Synthroid) 175 mcg PO DAILY@0630 [facility] Pantoprazole Sodium (Protonix Inj) 40 mg IVP DAILY [facility] Last Admin: 11/17/16 09:34 Dose: 40 mg - Labs Labs: 11/17/16 06:22 11/17/16 06:22 PT 19.5 SECONDS (9.7-12.2) H 10/28/16 08:07 INR 1.7 10/28/16 08:07 APTT 49 SECONDS (21-34) H 10/25/16 16:33
[2016-11-18] MEDS: Albuterol-Ipratrop 3 mg / 0.5 (3 ml) UD INH SCH ×4 (02:23→19:52)
[2016-11-18] MEDS: Piperacill/Tazo 2.25gm in Dex 2.25 GM/50 ML BAG IVPB SCH ×4 (06:00→19:04)
[2016-11-18 06:15] LABS: BASO # 0.1 K/uL (0.0-0.2); BASO % 0.4 % (0.0-2.0); EOS % 0.2 % (0.0-4.0); LYMPH # 1.3 K/uL (1.0-4.3); LYMPH % 8.6 % (20.0-40.0); MEAN CELL VOLUME 93.2 fL (81.0-99.0); MEAN CORPUSCULAR HEMOGLOBIN 30.8 pg (27.0-31.0); MEAN CORPUSCULAR HGB CONC 33.1 g/dL (33.0-37.0); MEAN PLATELET VOLUME 9.2 fL (7.2-11.7); MONO # 1.2 K/uL (0.0-0.8); MONO % 8.4 % (0.0-10.0); PLATELET COUNT 35 K/uL (130-400); RED CELL DISTRIBUTION WIDTH 21.2 % (11.5-14.5); WHITE BLOOD COUNT 14.5 K/uL (4.8-10.8)
[2016-11-18] MEDS: (Novolin R) Insulin Human Regular 100 units/ml vial SC SCH ×4 (06:18→18:58)
[2016-11-18] MEDS: Levothyroxine 175 MCG TAB PO SCH (06:23)
[2016-11-18 06:31] LABS: ALB/GLOB RATIO 0.7 (1.0-2.1); BILIRUBIN,TOTAL 6.4 mg/dL (0.2-1.3); MAGNESIUM 2.1 mg/dL (1.6-2.3); PHOSPHOROUS 1.5 mg/dL (2.5-4.5); POTASSIUM 3.4 mmol/L (3.6-5.2); TOTAL PROTEIN 5.8 g/dL (6.3-8.3)
[2016-11-18] MEDS ORDERED: Potassium Chloride 10 mEq ER Tab PO ONE (07:49)
[2016-11-18 08:40] LABS: NEUTROPHIL 76 % (50-75); TOTAL CELLS COUNTED 100
[2016-11-18] MEDS: Albumin Human 25% (12.5 gm/50 ml) IV PRN ×3 (10:37→13:00)
--- NOTE | 2016-11-18 12:12 | CP.CCUPN ---
<OsmanJacqueGretchen SLalita - Last Filed: 11/18/16 12:09> CCU Subjective - Physician Review Subjective (Free Text): Patient was seen and examined in the AM at bedside. Patient is non-verbal. 11/18/16 12:09 CCU Objective - Vital Signs / Intake & Output Vital Signs (Last 4 hours): Vital Signs Temp Pulse Pulse Resp BP BP Pulse Ox 11/18/16 10:55 85 18 101/34 L 99 11/18/16 10:30 80 15 99/38 L 100 11/18/16 10:15 84 14 99/32 L 100 11/18/16 10:14 83 9 L 99/32 L 99 11/18/16 10:00 97.8 F 84 82 16 108/37 L 108/37 L 100 11/18/16 09:14 76 27 H 80/31 L 95 11/18/16 08:15 78 16 100/40 L 99 Intake and Output (Last 8hrs): Intake & Output 11/17/16 11/18/16 11/18/16 22:59 06:59 14:59 Intake Total 943.0 1026 629 Output Total 5 Balance 938.0 1026 629 Weight 103 lb 0.5 oz Intake: IV 254 254 254 Intake, IV Amount 479.0 492 270 Right Distal Port PICC 240 220 100 Right PICC 239.0 272 170 Tube Feeding 210 280 105 Output: Stool 4 Emesis 1 Other: # Bowel Movements 1 - Physical Exam Head: Positive for: Atraumatic Pupils: Positive for: PERRL Extroacular Muscles: Positive for: EOMI Conjunctiva: Positive for: Icteric Mouth: Positive for: Dry Nose (Internal): Positive for: Other (NGT was replaced 11/[address] still in [address]) Neck: Positive for: Other (trach in place) Respiratory/Chest: Positive for: Rhonchi. Negative for: Clear to Auscultation, Respiratory Distress, Accessory Muscle Use Cardiovascular: Positive for: Regular Rate and Rhythm, Normal S1, S2. Negative for: Murmurs, Tachycardic, Bradycardic Abdomen: Negative for: Peritoneal Signs, Hernias Rectal: Negative for: Gross Blood Upper Extremity: Positive for: Cyanosis, Temperature Abnormalties, Other (cold fingers, ischemic 3rd digit on left hand ). Negative for: NORMAL PULSES, Neurovascularly Intact, Capillary Refill < 2s Lower Extremity: Positive for: Edema Neurological: Negative for: GCS=15, Speech Normal Skin: Positive for: Cold (bilateral hands), Other (gangrenous fingertips). Negative for: Warm Psychiatric: Positive for: Other (non-verbal ). Negative for: Alert, Oriented x 3, Normal Insight, Normal Concentration - Medications Active Medications: Active Medications Generic Name Dose Route Start Last Admin Trade Name Freq PRN Reason Stop Dose Admin Albumin Human 12.5 gm 11/16/16 14:45 11/18/16 10:37 Albumin Human 25% (12.5 Gm/50 Ml) IV 12.5 gm MWF PRN Administration LOW BLOOD PRESSURE Albuterol/Ipratropium 3 ml 11/12/16 14:00 11/18/16 07:38 Duoneb 3 Mg/0.5 Mg (3 Ml) Ud INH 3 ml RQ6 REKHA Administration Epoetin Sly 10,000 unit 11/12/16 10:00 11/17/16 13:32 Procrit IV 10,000 unit TTS REKHA Administration Norepinephrine Bitartrate 4 mg 254 mls @ 15.24 mls/hr 11/16/16 20:28 10:55 / Sodium Chloride IV 9 mcg/min .[id number] PRN 34.29 mls/hr TITRATE PER MD ORDER Administration Protocol 4 MCG/MIN Dextrose 1,000 mls @ 20 mls/hr 11/16/16 23:22 11/17/16 23:00 Dextrose 10% In Water IV Not Given .Q24H REKHA Piperacillin Sod/Tazobactam Sod 2.25 gm in 50 mls @ 100 mls/hr 11/17/16 18:00 11/18/16 06:00 Zosyn 2.25 Gm Iv Premix IVPB 100 mls/hr Q6H REKHA Administration Insulin Human Regular 0 unit 11/16/16 12:00 11/18/16 06:18 Novolin R SC Not Given Q6 [facility] Protocol Levothyroxine Sodium 175 mcg 11/18/16 06:30 11/18/16 06:23 Synthroid PO 175 mcg DAILY@0630 REKHA Administration Pantoprazole Sodium 40 mg 11/05/16 11:15 11/18/16 09:15 Protonix Inj IVP 40 mg DAILY REKHA Administration - Patient Studies Lab Studies: Microbiology Studies 11/17/16 09:15 Blood Culture - Preliminary Blood-During Dialysis NO GROWTH AFTER 24 HOURS 11/16/16 18:10 Gram Stain - Final Trachasp Sputum Culture - Final Methicillin Resistant S Aureus Lab Studies 11/18/16 11/18/16 11/18/16 Range/Units 11:57 06:03 06:03 WBC 14.5 H (4.8-10.8) K/uL RBC 2.36 L (3.80-5.20) Mil/uL Hgb 7.3 L (11.0-16.0) g/dL Hct 22.0 L (34.0-47.0) % MCV 93.2 (81.0-99.0) fL MCH 30.8 (27.0-31.0) pg MCHC 33.1 (33.0-37.0) g/dL RDW 21.2 H (11.5-14.5) % Plt Count 35 L (130-400) K/uL MPV 9.2 (7.2-11.7) fL Neut % (Auto) 82.4 H (50.0-75.0) % Lymph % (Auto) 8.6 L (20.0-40.0) % [place] % (Auto) 8.4 (0.0-10.0) % Eos % (Auto) 0.2 (0.0-4.0) % Baso % (Auto) 0.4 (0.0-2.0) % Neut # 12.0 H (1.8-7.0) K/uL Lymph # 1.3 (1.0-4.3) K/uL [place] # 1.2 H (0.0-0.8) K/uL Eos # 0.0 (0.0-0.7) K/uL Baso # 0.1 (0.0-0.2) K/uL Neutrophils % (Manual) 76 H (50-75) % Band Neutrophils % 17 H* (0-2) % Lymphocytes % (Manual) 4 L (20-40) % Monocytes % (Manual) 3 (0-10) % Platelet Estimate Decreased L (NORMAL) Polychromasia Slight Hypochromasia (manual) Slight Anisocytosis (manual) Moderate Macrocytosis (manual) Slight Target Cells Slight Sodium 133 (132-148) mmol/L Potassium 3.4 L (3.6-5.2) mmol/L Chloride 95 L (98-107) mmol/L Carbon Dioxide 26 (22-30) mmol/L Anion Gap 15 (10-20) BUN 9 (7-17) mg/dL Creatinine 1.2 (0.7-1.2) MG/DL Est GFR ( Amer) 53 Est GFR (Non-Af Amer) 44 POC Glucose (mg/dL) 100 (65-110) mg/dL Random Glucose 127 H (65-105) mg/dL Calcium 8.0 L (8.6-10.4) mg/dl Phosphorus 1.5 L (2.5-4.5) mg/dL Magnesium 2.1 (1.6-2.3) mg/dL Total Bilirubin 6.4 H (0.2-1.3) mg/dL AST 42 H D (14-36) U/L ALT 21 (9-52) U/L Alkaline Phosphatase 347 H D (38-126) U/L Total Protein 5.8 L (6.3-8.3) g/dL Albumin 2.4 L (3.5-5.0) g/dL Globulin 3.4 (2.2-3.9) gm/dL Albumin/Globulin Ratio 0.7 L (1.0-2.1) 11/18/16 11/17/16 11/17/16 Range/Units 06:01 23:42 17:45 WBC (4.8-10.8) K/uL RBC (3.80-5.20) Mil/uL Hgb (11.0-16.0) g/dL Hct (34.0-47.0) % MCV (81.0-99.0) fL MCH (27.0-31.0) pg MCHC (33.0-37.0) g/dL RDW (11.5-14.5) % Plt Count (130-400) K/uL MPV (7.2-11.7) fL Neut % (Auto) (50.0-75.0) % Lymph % (Auto) (20.0-40.0) % [place] % (Auto) (0.0-10.0) % Eos % (Auto) (0.0-4.0) % Baso % (Auto) (0.0-2.0) % Neut # (1.8-7.0) K/uL Lymph # (1.0-4.3) K/uL [place] # (0.0-0.8) K/uL Eos # (0.0-0.7) K/uL Baso # (0.0-0.2) K/uL Neutrophils % (Manual) (50-75) % Band Neutrophils % (0-2) % Lymphocytes % (Manual) (20-40) % Monocytes % (Manual) (0-10) % Platelet Estimate (NORMAL) Polychromasia Hypochromasia (manual) Anisocytosis (manual) Macrocytosis (manual) Target Cells Sodium (132-148) mmol/L Potassium (3.6-5.2) mmol/L Chloride (98-107) mmol/L Carbon Dioxide (22-30) mmol/L Anion Gap (10-20) BUN (7-17) mg/dL Creatinine (0.7-1.2) MG/DL Est GFR ( Amer) Est GFR (Non-Af Amer) POC Glucose (mg/dL) 144 H 97 85 (65-110) mg/dL Random Glucose (65-105) mg/dL Calcium (8.6-10.4) mg/dl Phosphorus (2.5-4.5) mg/dL Magnesium (1.6-2.3) mg/dL Total Bilirubin (0.2-1.3) mg/dL AST (14-36) U/L ALT (9-52) U/L Alkaline Phosphatase (38-126) U/L Total Protein (6.3-8.3) g/dL Albumin (3.5-5.0) g/dL Globulin (2.2-3.9) gm/dL Albumin/Globulin Ratio (1.0-2.1) 11/17/16 Range/Units 11:43 WBC (4.8-10.8) K/uL RBC (3.80-5.20) Mil/uL Hgb (11.0-16.0) g/dL Hct (34.0-47.0) % MCV (81.0-99.0) fL MCH (27.0-31.0) pg MCHC (33.0-37.0) g/dL RDW (11.5-14.5) % Plt Count (130-400) K/uL MPV (7.2-11.7) fL Neut % (Auto) (50.0-75.0) % Lymph % (Auto) (20.0-40.0) % [place] % (Auto) (0.0-10.0) % Eos % (Auto) (0.0-4.0) % Baso % (Auto) (0.0-2.0) % Neut # (1.8-7.0) K/uL Lymph # (1.0-4.3) K/uL [place] # (0.0-0.8) K/uL Eos # (0.0-0.7) K/uL Baso # (0.0-0.2) K/uL Neutrophils % (Manual) (50-75) % Band Neutrophils % (0-2) % Lymphocytes % (Manual) (20-40) % Monocytes % (Manual) (0-10) % Platelet Estimate (NORMAL) Polychromasia Hypochromasia (manual) Anisocytosis (manual) Macrocytosis (manual) Target Cells Sodium (132-148) mmol/L Potassium (3.6-5.2) mmol/L Chloride (98-107) mmol/L Carbon Dioxide (22-30) mmol/L Anion Gap (10-20) BUN (7-17) mg/dL Creatinine (0.7-1.2) MG/DL Est GFR ( Amer) Est GFR (Non-Af Amer) POC Glucose (mg/dL) 129 H (65-110) mg/dL Random Glucose (65-105) mg/dL Calcium (8.6-10.4) mg/dl Phosphorus (2.5-4.5) mg/dL Magnesium (1.6-2.3) mg/dL Total Bilirubin (0.2-1.3) mg/dL AST (14-36) U/L ALT (9-52) U/L Alkaline Phosphatase (38-126) U/L Total Protein (6.3-8.3) g/dL Albumin (3.5-5.0) g/dL Globulin (2.2-3.9) gm/dL Albumin/Globulin Ratio (1.0-2.1) Laboratory Results - last 24 hr 11/17/16 11/17/16 11/17/16 11:43 17:45 23:42 WBC RBC Hgb Hct MCV MCH MCHC RDW Plt Count MPV Neut % (Auto) Lymph % (Auto) [place] % (Auto) Eos % (Auto) Baso % (Auto) Neut # Lymph # [place] # Eos # Baso # Neutrophils % (Manual) Band Neutrophils % Lymphocytes % (Manual) Monocytes % (Manual) Platelet Estimate Polychromasia Hypochromasia (manual) Anisocytosis (manual) Macrocytosis (manual) Target Cells Sodium Potassium Chloride Carbon Dioxide Anion Gap BUN Creatinine Est GFR ( Amer) Est GFR (Non-Af Amer) POC Glucose (mg/dL) 129 H 85 97 Random Glucose Calcium Phosphorus Magnesium Total Bilirubin AST ALT Alkaline Phosphatase Total Protein Albumin Globulin Albumin/Globulin Ratio 11/18/16 11/18/16 11/18/16 06:01 06:03 06:03 WBC 14.5 H RBC 2.36 L Hgb 7.3 L Hct 22.0 L MCV 93.2 MCH 30.8 MCHC 33.1 RDW 21.2 H Plt Count 35 L MPV 9.2 Neut % (Auto) 82.4 H Lymph % (Auto) 8.6 L [place] % (Auto) 8.4 Eos % (Auto) 0.2 Baso % (Auto) 0.4 Neut # 12.0 H Lymph # 1.3 [place] # 1.2 H Eos # 0.0 Baso # 0.1 Neutrophils % (Manual) 76 H Band Neutrophils % 17 H* Lymphocytes % (Manual) 4 L Monocytes % (Manual) 3 Platelet Estimate Decreased L Polychromasia Slight Hypochromasia (manual) Slight Anisocytosis (manual) Moderate Macrocytosis (manual) Slight Target Cells Slight Sodium 133 Potassium 3.4 L Chloride 95 L Carbon Dioxide 26 Anion Gap 15 BUN 9 Creatinine 1.2 Est GFR ( Amer) 53 Est GFR (Non-Af Amer) 44 POC Glucose (mg/dL) 144 H Random Glucose 127 H Calcium 8.0 L Phosphorus 1.5 L Magnesium 2.1 Total Bilirubin 6.4 H AST 42 H D ALT 21 Alkaline Phosphatase 347 H D Total Protein 5.8 L Albumin 2.4 L Globulin 3.4 Albumin/Globulin Ratio 0.7 L 11/18/16 11:57 WBC RBC Hgb Hct MCV MCH MCHC RDW Plt Count MPV Neut % (Auto) Lymph % (Auto) [place] % (Auto) Eos % (Auto) Baso % (Auto) Neut # Lymph # [place] # Eos # Baso # Neutrophils % (Manual) Band Neutrophils % Lymphocytes % (Manual) Monocytes % (Manual) Platelet Estimate Polychromasia Hypochromasia (manual) Anisocytosis (manual) Macrocytosis (manual) Target Cells Sodium Potassium Chloride Carbon Dioxide Anion Gap BUN Creatinine Est GFR ( Amer) Est GFR (Non-Af Amer) POC Glucose (mg/dL) 100 Random Glucose Calcium Phosphorus Magnesium Total Bilirubin AST ALT Alkaline Phosphatase Total Protein Albumin Globulin Albumin/Globulin Ratio Fingerstick Blood Sugar Results: 85 Review of Systems - Review of Systems Systems not reviewed;Unavailable: Altered Mental Status Critical Care Progress Note - Nutrition Nutrition: Nutrition Category Date Time Status NPO Diet [DIET] Diets 11/17/16 Breakfast Active Assessment/Plan - Assessment and Plan (Free Text) Plan: 76F admitted for GI bleed; s/p flexible sigmoidoscopy and multiple transfusions. Patient was transferred from the medical floor to the ICU because patient was noted to have a hypotensive state, bradycardia and lots of mucus secretion. Plan: Neuro: - GCS 9T - at baseline likely 2/2 metabolic encephalopathy - Patient in non-verbal Pulm: - Chronic Respiratory failure - Intubated CV: - Septic Shock - BP mildly improved - systolic now 100-110s - Norepinephrine is currently stopped 11/09 - Dr Long on board. Pt high risk for any procedure but can proceed if clinical indicated - Left hand with ischemic necrosis - consult placed for vasc Dr Buck - likely nothing to do Heme: - will cont to monitor H/H and for rectal bleed Renal: - ESRD - HD as per Dr Mcfarland - Dr Trent on consult --> help appreciated Endo: -Insulin sliding scale - patient's daughter refuses insulin GI: Ischemic colitis with hemorrhage, not a candidate for intervention as this would be medically futile. - NGT placed 11/17 - Tube Feeding - f/u PEG tube placement on Tuesday 11/21 -IR Consult: Dr. Walker --> help appreciated - Protonix for GI bleed - GI Consult: Dr. Young --> help appreciated ID: - Septic Shock - Meropenem was discontinued 11/07 (patient received a 13 day course) - Trach - sputum culture: Gram + Cocci - Zosyn Pt chronically ill, prognosis very poor DVT proph - SCDs, no anti-coagulation due to acute bleed GI proph - Protonix 40mg IVP daily Care Management Consult --> help appreciated - Usp Care Code status - Full Case discussed with Dr. Curry Brewer PGY-1 <Ortiz Zapien - Last Filed: 11/18/16 15:42> CCU Objective - Vital Signs / Intake & Output Vital Signs (Last 4 hours): Vital Signs Temp Pulse Pulse Resp BP BP Pulse Ox 11/18/16 13:13 96 H 14 93/39 L 100 11/18/16 13:00 96 H 16 93/39 L 100 11/18/16 12:45 97 H 16 100/43 L 100 11/18/16 12:30 97 H 14 103/43 L 100 11/18/16 12:14 83 16 99/37 L 98 11/18/16 12:00 98.1 F 84 18 95/33 L 100 Intake and Output (Last 8hrs): Intake & Output 11/18/16 11/18/16 11/18/16 06:59 14:59 22:59 Intake Total 1026 737 214 Balance 1026 737 214 Weight 103 lb 0.5 oz Intake: IV 254 254 214 Intake, IV Amount 492 378 Right Distal Port PICC 220 140 Right PICC 272 238 Tube Feeding 280 105 Other: # Bowel Movements 1 - Medications Active Medications: Active Medications Generic Name Dose Route Start Last Admin Trade Name Freq PRN Reason Stop Dose Admin Albumin Human 12.5 gm 11/16/16 14:45 11/18/16 13:00 Albumin Human 25% (12.5 Gm/50 Ml) IV 12.5 gm MWF PRN Administration LOW BLOOD PRESSURE Albuterol/Ipratropium 3 ml 11/12/16 14:00 11/18/16 13:38 Duoneb 3 Mg/0.5 Mg (3 Ml) Ud INH 3 ml RQ6 REKHA Administration Epoetin Sly 10,000 unit 11/12/16 10:00 11/18/16 12:44 Procrit IV 10,000 unit TTS REKHA Administration Norepinephrine Bitartrate 4 mg 254 mls @ 15.24 mls/hr 11/16/16 20:28 15:27 / Sodium Chloride IV 8 mcg/min .[id number] PRN 30.48 mls/hr TITRATE PER MD ORDER Titration Protocol 4 MCG/MIN Dextrose 1,000 mls @ 20 mls/hr 11/16/16 23:22 11/17/16 23:00 Dextrose 10% In Water IV Not Given .Q24H REKHA Piperacillin Sod/Tazobactam Sod 2.25 gm in 50 mls @ 100 mls/hr 11/17/16 18:00 11/18/16 15:16 Zosyn 2.25 Gm Iv Premix IVPB 100 mls/hr Q6H REKHA Administration Insulin Human Regular 0 unit 11/16/16 12:00 11/18/16 12:44 Novolin R SC Not Given Q6 [facility] Protocol Levothyroxine Sodium 175 mcg 11/18/16 06:30 11/18/16 06:23 Synthroid PO 175 mcg DAILY@0630 REKHA Administration Pantoprazole Sodium 40 mg 11/05/16 11:15 11/18/16 09:15 Protonix Inj IVP 40 mg DAILY REKHA Administration - Patient Studies Lab Studies: Microbiology Studies 11/16/16 15:38 MRSA Culture (Admit) - Final Naris MRSA DETECTED 11/17/16 09:15 Blood Culture - Preliminary Blood-During Dialysis NO GROWTH AFTER 24 HOURS 11/16/16 18:10 Gram Stain - Final Trachasp Sputum Culture - Final Methicillin Resistant S Aureus Lab Studies 11/18/16 11/18/16 11/18/16 Range/Units 11:57 06:03 06:03 WBC 14.5 H (4.8-10.8) K/uL RBC 2.36 L (3.80-5.20) Mil/uL Hgb 7.3 L (11.0-16.0) g/dL Hct 22.0 L (34.0-47.0) % MCV 93.2 (81.0-99.0) fL MCH 30.8 (27.0-31.0) pg MCHC 33.1 (33.0-37.0) g/dL RDW 21.2 H (11.5-14.5) % Plt Count 35 L (130-400) K/uL MPV 9.2 (7.2-11.7) fL Neut % (Auto) 82.4 H (50.0-75.0) % Lymph % (Auto) 8.6 L (20.0-40.0) % [place] % (Auto) 8.4 (0.0-10.0) % Eos % (Auto) 0.2 (0.0-4.0) % Baso % (Auto) 0.4 (0.0-2.0) % Neut # 12.0 H (1.8-7.0) K/uL Lymph # 1.3 (1.0-4.3) K/uL [place] # 1.2 H (0.0-0.8) K/uL Eos # 0.0 (0.0-0.7) K/uL Baso # 0.1 (0.0-0.2) K/uL Neutrophils % (Manual) 76 H (50-75) % Band Neutrophils % 17 H* (0-2) % Lymphocytes % (Manual) 4 L (20-40) % Monocytes % (Manual) 3 (0-10) % Platelet Estimate Decreased L (NORMAL) Polychromasia Slight Hypochromasia (manual) Slight Anisocytosis (manual) Moderate Macrocytosis (manual) Slight Target Cells Slight Sodium 133 (132-148) mmol/L Potassium 3.4 L (3.6-5.2) mmol/L Chloride 95 L (98-107) mmol/L Carbon Dioxide 26 (22-30) mmol/L Anion Gap 15 (10-20) BUN 9 (7-17) mg/dL Creatinine 1.2 (0.7-1.2) MG/DL Est GFR ( Amer) 53 Est GFR (Non-Af Amer) 44 POC Glucose (mg/dL) 100 (65-110) mg/dL Random Glucose 127 H (65-105) mg/dL Calcium 8.0 L (8.6-10.4) mg/dl Phosphorus 1.5 L (2.5-4.5) mg/dL Magnesium 2.1 (1.6-2.3) mg/dL Total Bilirubin 6.4 H (0.2-1.3) mg/dL AST 42 H D (14-36) U/L ALT 21 (9-52) U/L Alkaline Phosphatase 347 H D (38-126) U/L Total Protein 5.8 L (6.3-8.3) g/dL Albumin 2.4 L (3.5-5.0) g/dL Globulin 3.4 (2.2-3.9) gm/dL Albumin/Globulin Ratio 0.7 L (1.0-2.1) 11/18/16 11/17/16 11/17/16 Range/Units 06:01 23:42 17:45 WBC (4.8-10.8) K/uL RBC (3.80-5.20) Mil/uL Hgb (11.0-16.0) g/dL Hct (34.0-47.0) % MCV (81.0-99.0) fL MCH (27.0-31.0) pg MCHC (33.0-37.0) g/dL RDW (11.5-14.5) % Plt Count (130-400) K/uL MPV (7.2-11.7) fL Neut % (Auto) (50.0-75.0) % Lymph % (Auto) (20.0-40.0) % [place] % (Auto) (0.0-10.0) % Eos % (Auto) (0.0-4.0) % Baso % (Auto) (0.0-2.0) % Neut # (1.8-7.0) K/uL Lymph # (1.0-4.3) K/uL [place] # (0.0-0.8) K/uL Eos # (0.0-0.7) K/uL Baso # (0.0-0.2) K/uL Neutrophils % (Manual) (50-75) % Band Neutrophils % (0-2) % Lymphocytes % (Manual) (20-40) % Monocytes % (Manual) (0-10) % Platelet Estimate (NORMAL) Polychromasia Hypochromasia (manual) Anisocytosis (manual) Macrocytosis (manual) Target Cells Sodium (132-148) mmol/L Potassium (3.6-5.2) mmol/L Chloride (98-107) mmol/L Carbon Dioxide (22-30) mmol/L Anion Gap (10-20) BUN (7-17) mg/dL Creatinine (0.7-1.2) MG/DL Est GFR ( Amer) Est GFR (Non-Af Amer) POC Glucose (mg/dL) 144 H 97 85 (65-110) mg/dL Random Glucose (65-105) mg/dL Calcium (8.6-10.4) mg/dl Phosphorus (2.5-4.5) mg/dL Magnesium (1.6-2.3) mg/dL Total Bilirubin (0.2-1.3) mg/dL AST (14-36) U/L ALT (9-52) U/L Alkaline Phosphatase (38-126) U/L Total Protein (6.3-8.3) g/dL Albumin (3.5-5.0) g/dL Globulin (2.2-3.9) gm/dL Albumin/Globulin Ratio (1.0-2.1) Laboratory Results - last 24 hr 11/17/16 11/17/16 11/18/16 17:45 23:42 06:01 WBC RBC Hgb Hct MCV MCH MCHC RDW Plt Count MPV Neut % (Auto) Lymph % (Auto) [place] % (Auto) Eos % (Auto) Baso % (Auto) Neut # Lymph # [place] # Eos # Baso # Neutrophils % (Manual) Band Neutrophils % Lymphocytes % (Manual) Monocytes % (Manual) Platelet Estimate Polychromasia Hypochromasia (manual) Anisocytosis (manual) Macrocytosis (manual) Target Cells Sodium Potassium Chloride Carbon Dioxide Anion Gap BUN Creatinine Est GFR ( Amer) Est GFR (Non-Af Amer) POC Glucose (mg/dL) 85 97 144 H Random Glucose Calcium Phosphorus Magnesium Total Bilirubin AST ALT Alkaline Phosphatase Total Protein Albumin Globulin Albumin/Globulin Ratio 11/18/16 11/18/16 11/18/16 06:03 06:03 11:57 WBC 14.5 H RBC 2.36 L Hgb 7.3 L Hct 22.0 L MCV 93.2 MCH 30.8 MCHC 33.1 RDW 21.2 H Plt Count 35 L MPV 9.2 Neut % (Auto) 82.4 H Lymph % (Auto) 8.6 L [place] % (Auto) 8.4 Eos % (Auto) 0.2 Baso % (Auto) 0.4 Neut # 12.0 H Lymph # 1.3 [place] # 1.2 H Eos # 0.0 Baso # 0.1 Neutrophils % (Manual) 76 H Band Neutrophils % 17 H* Lymphocytes % (Manual) 4 L Monocytes % (Manual) 3 Platelet Estimate Decreased L Polychromasia Slight Hypochromasia (manual) Slight Anisocytosis (manual) Moderate Macrocytosis (manual) Slight Target Cells Slight Sodium 133 Potassium 3.4 L Chloride 95 L Carbon Dioxide 26 Anion Gap 15 BUN 9 Creatinine 1.2 Est GFR ( Amer) 53 Est GFR (Non-Af Amer) 44 POC Glucose (mg/dL) 100 Random Glucose 127 H Calcium 8.0 L Phosphorus 1.5 L Magnesium 2.1 Total Bilirubin 6.4 H AST 42 H D ALT 21 Alkaline Phosphatase 347 H D Total Protein 5.8 L Albumin 2.4 L Globulin 3.4 Albumin/Globulin Ratio 0.7 L Critical Care Progress Note - Nutrition Nutrition: Nutrition Category Date Time Status NPO Diet [DIET] Diets 11/17/16 Breakfast Active Assessment/Plan (1) Leucocytosis Current Visit: Yes Status: Acute Attending/Attestation - Attestation I have personally seen and examined this patient.: Yes I have fully participated in the care of the patient.: Yes I have reviewed all pertinent clinical information: Yes Notes (Text): 11/18/16 15:41 I have seen and examined the patient. Medical records, lab studies, and imaging were reviewed by me and a management plan was formulated on multidisciplinary rounds with resident Dr. Brewer. I agree with their above documented assessment and plan. Patient will receive PEG placement on Monday. Clinically stable, Chronically septic, long term care pharmacist prognosis poor. Critical Care Time 35 minutes. Multi-disciplinary rounds were performed with house staff, nursing, speech therapy, respiratory therapy, pharmacy and nutrition with integrated input from the primary team/attending and other consulting services. The documented time is cumulative and includes review of patient data/exams/labs/chart review and examination of the patient on rounds and throughout the day; time is exclusive of any procedures or teaching time.
[2016-11-18] MEDS: Epoetin Alfa 10,000 unit/ml Dialysis IV SCH (12:44)
--- NOTE | 2016-11-18 13:15 | CP.PCM.PN ---
Subjective - Date & Time of Evaluation Date of Evaluation: 11/18/16 Time of Evaluation: 13:13 - Subjective Subjective: On dialysis now- to UF 2200ml Awake- nonverbal On vent- trach BP stable with levophed 9 mcg/min Leukocytosis improved Hg dropped-7.3 Will likely need blood transfusion- discuss with ICU team Discussed with daughter- will need repeat HD in AM- CHF prevention Objective - Vital Signs/Intake and Output Vital Signs (last 24 hours): Temp Pulse Resp BP Pulse Ox 97.8 F 97 H 16 100/43 L 100 11/18/16 10:00 11/18/16 12:45 11/18/16 12:45 11/18/16 12:45 11/18/16 12:45 Intake and Output: 11/18/16 11/18/16 06:59 18:59 Intake Total 1381.4 629 Output Total 1 Balance 1380.4 629 - Medications Medications: Current Medications Albumin Human (Albumin Human 25% (12.5 Gm/50 Ml)) 12.5 gm IV MWF PRN PRN Reason: LOW BLOOD PRESSURE Last Admin: 11/18/16 13:00 Dose: 12.5 gm Albuterol/Ipratropium (Duoneb 3 Mg/0.5 Mg (3 Ml) Ud) 3 ml INH RQ6 [facility] Last Admin: 11/18/16 07:38 Dose: 3 ml Epoetin Sly (Procrit) 10,000 unit IV TTS REKHA Last Admin: 11/18/16 12:44 Dose: 10,000 unit Norepinephrine Bitartrate 4 mg (/ Sodium Chloride) 254 mls @ 15.24 mls/hr IV .[id number] PRN; Protocol; 4 MCG/MIN PRN Reason: TITRATE PER MD ORDER Last Admin: 11/18/16 10:55 Dose: 9 mcg/min, 34.29 mls/hr Dextrose (Dextrose 10% In Water) 1,000 mls @ 20 mls/hr IV .Q24H REK[facility] Last Admin: 11/17/16 23:00 Dose: Not Given Piperacillin Sod/Tazobactam Sod (Zosyn 2.25 Gm Iv Premix) 2.25 gm in 50 mls @ 100 mls/hr IVPB Q6H [facility] Last Admin: 11/18/16 06:00 Dose: 100 mls/hr Insulin Human Regular (Novolin R) 0 unit SC Q6 [facility] PRN Reason: Protocol Last Admin: 11/18/16 12:44 Dose: Not Given Levothyroxine Sodium (Synthroid) 175 mcg PO DAILY@0630 [facility] Last Admin: 11/18/16 06:23 Dose: 175 mcg Pantoprazole Sodium (Protonix Inj) 40 mg IVP DAILY [facility] Last Admin: 11/18/16 09:15 Dose: 40 mg - Labs Labs: 11/18/16 06:03 11/18/16 06:03 PT 19.5 SECONDS (9.7-12.2) H 10/28/16 08:07 INR 1.7 10/28/16 08:07 APTT 49 SECONDS (21-34) H 10/25/16 16:33 - Constitutional Appears: No Acute Distress, Confused, Chronically Ill - Head Exam Head Exam: ATRAUMATIC, NORMAL INSPECTION - Eye Exam Eye Exam: EOMI, Normal appearance - Respiratory Exam Respiratory Exam: Rhonchi, Respiratory Distress - Cardiovascular Exam Cardiovascular Exam: Tachycardia, Irregular Rhythm - GI/Abdominal Exam GI & Abdominal Exam: Soft. absent: Tenderness - Extremities Exam Extremities Exam: Normal Inspection. absent: Tenderness - Neurological Exam Neurological Exam: Awake, Motor Sensory Deficit - Skin Skin Exam: Dry, Warm Assessment and Plan (1) Lower GI bleed Status: Acute (2) Diabetic nephropathy with proteinuria Status: Acute (3) CHF (congestive heart failure) Status: Chronic (4) ESRD (end stage renal disease) on dialysis Status: Chronic - Assessment and Plan (Free Text) Plan: Repeat HD in AM Dialysis now going well Recommend blood transfusion- can give at HD in AM
--- NOTE | 2016-11-18 21:20 | CP.PCM.PN ---
Subjective - Date & Time of Evaluation Date of Evaluation: 11/18/16 Time of Evaluation: 21:19 - Subjective Subjective: Condition is still worse. On ventilator. Full support. Chest x-ray yesterday showing evidence of bilateral effusion. Currently receiving NG tube feeding. Clinically otherwise okay. On Levophed Overall prognosis very poor. Objective - Vital Signs/Intake and Output Vital Signs (last 24 hours): Temp Pulse Resp BP Pulse Ox 97.8 F 68 16 80/39 L 99 11/18/16 16:00 11/18/16 19:03 11/18/16 19:03 11/18/16 19:03 11/18/16 19:03 Intake and Output: 11/18/16 11/19/16 18:59 06:59 Intake Total 1423.0 Balance 1423.0 - Medications Medications: Current Medications Albumin Human (Albumin Human 25% (12.5 Gm/50 Ml)) 12.5 gm IV MWF PRN PRN Reason: LOW BLOOD PRESSURE Last Admin: 11/18/16 13:00 Dose: 12.5 gm Albuterol/Ipratropium (Duoneb 3 Mg/0.5 Mg (3 Ml) Ud) 3 ml INH RQ6 [facility] Last Admin: 11/18/16 19:52 Dose: 3 ml Epoetin Sly (Procrit) 10,000 unit IV TTS [facility] Last Admin: 11/18/16 12:44 Dose: 10,000 unit Norepinephrine Bitartrate 4 mg (/ Sodium Chloride) 254 mls @ 15.24 mls/hr IV .[id number] PRN; Protocol; 4 MCG/MIN PRN Reason: TITRATE PER MD ORDER Last Admin: 11/18/16 17:23 Dose: 9 mcg/min, 34.29 mls/hr Dextrose (Dextrose 10% In Water) 1,000 mls @ 20 mls/hr IV .Q24H [facility] Last Admin: 11/17/16 23:00 Dose: Not Given Piperacillin Sod/Tazobactam Sod (Zosyn 2.25 Gm Iv Premix) 2.25 gm in 50 mls @ 100 mls/hr IVPB Q6H [facility] Last Admin: 11/18/16 19:04 Dose: 100 mls/hr Insulin Human Regular (Novolin R) 0 unit SC Q6 [facility] PRN Reason: Protocol Last Admin: 11/18/16 18:58 Dose: Not Given Levothyroxine Sodium (Synthroid) 175 mcg PO DAILY@0630 [facility] Last Admin: 11/18/16 06:23 Dose: 175 mcg Pantoprazole Sodium (Protonix Inj) 40 mg IVP DAILY [facility] Last Admin: 11/18/16 09:15 Dose: 40 mg - Labs Labs: 11/18/16 06:03 11/18/16 06:03 PT 19.5 SECONDS (9.7-12.2) H 10/28/16 08:07 INR 1.7 10/28/16 08:07 APTT 49 SECONDS (21-34) H 10/25/16 16:33
--- NOTE | 2016-11-18 22:03 | CP.PCM.PN ---
Subjective - Date & Time of Evaluation Date of Evaluation: 11/18/16 Time of Evaluation: 07:20 - Subjective Subjective: Patient seen and evaluated Drowsy No cardiac events noted Objective - Vital Signs/Intake and Output Vital Signs (last 24 hours): Temp Pulse Resp BP Pulse Ox 97.8 F 68 16 80/39 L 99 11/18/16 16:00 11/18/16 19:03 11/18/16 19:03 11/18/16 19:03 11/18/16 19:03 Intake and Output: 11/18/16 11/19/16 18:59 06:59 Intake Total 1423.0 Balance 1423.0 - Medications Medications: Current Medications Albumin Human (Albumin Human 25% (12.5 Gm/50 Ml)) 12.5 gm IV MWF PRN PRN Reason: LOW BLOOD PRESSURE Last Admin: 11/18/16 13:00 Dose: 12.5 gm Albuterol/Ipratropium (Duoneb 3 Mg/0.5 Mg (3 Ml) Ud) 3 ml INH RQ6 [facility] Last Admin: 11/18/16 19:52 Dose: 3 ml Epoetin Sly (Procrit) 10,000 unit IV TTS [facility] Last Admin: 11/18/16 12:44 Dose: 10,000 unit Norepinephrine Bitartrate 4 mg (/ Sodium Chloride) 254 mls @ 15.24 mls/hr IV .[id number] PRN; Protocol; 4 MCG/MIN PRN Reason: TITRATE PER MD ORDER Last Admin: 11/18/16 17:23 Dose: 9 mcg/min, 34.29 mls/hr Dextrose (Dextrose 10% In Water) 1,000 mls @ 20 mls/hr IV .Q24H [facility] Last Admin: 11/17/16 23:00 Dose: Not Given Piperacillin Sod/Tazobactam Sod (Zosyn 2.25 Gm Iv Premix) 2.25 gm in 50 mls @ 100 mls/hr IVPB Q6H [facility] Last Admin: 11/18/16 19:04 Dose: 100 mls/hr Insulin Human Regular (Novolin R) 0 unit SC Q6 [facility] PRN Reason: Protocol Last Admin: 11/18/16 18:58 Dose: Not Given Levothyroxine Sodium (Synthroid) 175 mcg PO DAILY@0630 [facility] Last Admin: 11/18/16 06:23 Dose: 175 mcg Pantoprazole Sodium (Protonix Inj) 40 mg IVP DAILY [facility] Last Admin: 11/18/16 09:15 Dose: 40 mg - Labs Labs: 11/18/16 06:03 11/18/16 06:03 PT 19.5 SECONDS (9.7-12.2) H 10/28/16 08:07 INR 1.7 10/28/16 08:07 APTT 49 SECONDS (21-34) H 10/25/16 16:33
[2016-11-19] MEDS: (Novolin R) Insulin Human Regular 100 units/ml vial SC SCH ×4 (00:37→17:51)
[2016-11-19] MEDS: Albuterol-Ipratrop 3 mg / 0.5 (3 ml) UD INH SCH ×5 (02:25→19:07)
[2016-11-19] MEDS: Piperacill/Tazo 2.25gm in Dex 2.25 GM/50 ML BAG IVPB SCH ×4 (06:00→17:35)
[2016-11-19] MEDS: Levothyroxine 175 MCG TAB PO SCH (06:31)
[2016-11-19 06:44] LABS: BASO # 0.1 K/uL (0.0-0.2); BASO % 0.7 % (0.0-2.0); EOS % 0.3 % (0.0-4.0); HEMATOCRIT 21.2 % (34.0-47.0); LYMPH # 1.3 K/uL (1.0-4.3); LYMPH % 11.4 % (20.0-40.0); MEAN CELL VOLUME 94.3 fL (81.0-99.0); MEAN CORPUSCULAR HEMOGLOBIN 30.8 pg (27.0-31.0); MEAN CORPUSCULAR HGB CONC 32.6 g/dL (33.0-37.0); MEAN PLATELET VOLUME 9.4 fL (7.2-11.7); MONO # 1.1 K/uL (0.0-0.8); MONO % 9.6 % (0.0-10.0); NRBC % 0.1 % (0.0-2.0); RED CELL DISTRIBUTION WIDTH 21.9 % (11.5-14.5); WHITE BLOOD COUNT 11.2 K/uL (4.8-10.8)
[2016-11-19 06:52] LABS: CHLORIDE 96 mmol/L (98-107)
[2016-11-19 06:53] LABS: POTASSIUM 3.5 mmol/L (3.6-5.2); SODIUM 136 mmol/L (132-148)
[2016-11-19 06:55] LABS: GFR AFRICAN-AMERICAN > 60
[2016-11-19 06:56] LABS: ALB/GLOB RATIO 0.7 (1.0-2.1); ALKALINE PHOSPHATASE 331 U/L (38-126); ALT/SGPT 24 U/L (9-52); AST/SGOT 35 U/L (14-36); BILIRUBIN,TOTAL 8.7 mg/dL (0.2-1.3); BLOOD UREA NITROGEN 8 mg/dL (7-17); CARBON DIOXIDE 26 mmol/L (22-30); GLUCOSE,RANDOM 138 mg/dL (65-105); PHOSPHOROUS 1.1 mg/dL (2.5-4.5); TOTAL PROTEIN 5.9 g/dL (6.3-8.3)
[2016-11-19 06:57] LABS: CALCIUM 7.9 mg/dl (8.6-10.4); MAGNESIUM 1.8 mg/dL (1.6-2.3)
--- NOTE | 2016-11-19 09:03 | RAD ---
PROCEDURE: CHEST RADIOGRAPH, 1 VIEW HISTORY: ICU routine/Trach Vented COMPARISON: 11/17/2016 FINDINGS: There is stable position of the tracheostomy tube. The nasogastric tube terminates in the stomach. The right PICC line terminates at the cavoatrial junction. There is stable appearance of a left axillary vascular stent. . LUNGS: There is persistent pulmonary venous congestion. PLEURA: No significant interval change in moderate right and small left pleural effusions. No pneumothorax. CARDIOVASCULAR: The heart is enlarged. Status post CABG. Atherosclerotic aortic arch calcifications are present. OSSEOUS STRUCTURES: Stable in appearance. 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 VISUALIZED UPPER ABDOMEN: Normal. OTHER FINDINGS: None. IMPRESSION: Stable position of line and tubes. No significant interval change in congestive heart failure with moderate right and small left pleural effusions.
--- NOTE | 2016-11-19 10:45 | CP.PCM.PN ---
Subjective - Date & Time of Evaluation Date of Evaluation: 11/19/16 Time of Evaluation: 10:43 - Subjective Subjective: Notes reviewed Discussed with ICU nursing staff Remains awake and nonverbal No family present On vent- trach Levophed reduced ROS unobtainable due to clinical condition Objective - Vital Signs/Intake and Output Vital Signs (last 24 hours): Temp Pulse Resp BP Pulse Ox 99.7 F H 78 10 L 94/37 L 100 11/19/16 08:00 11/19/16 10:30 11/19/16 10:30 11/19/16 10:02 11/19/16 10:30 Intake and Output: 11/19/16 11/19/16 06:59 18:59 Intake Total 1092.5 294.0 Balance 1092.5 294.0 - Medications Medications: Current Medications Albumin Human (Albumin Human 25% (12.5 Gm/50 Ml)) 12.5 gm IV MWF PRN PRN Reason: LOW BLOOD PRESSURE Last Admin: 11/18/16 13:00 Dose: 12.5 gm Albuterol/Ipratropium (Duoneb 3 Mg/0.5 Mg (3 Ml) Ud) 3 ml INH RQ6 [facility] Last Admin: 11/19/16 07:39 Dose: 3 ml Epoetin Sly (Procrit) 10,000 unit IV TTS [facility] Last Admin: 11/18/16 12:44 Dose: 10,000 unit Norepinephrine Bitartrate 4 mg (/ Sodium Chloride) 254 mls @ 15.24 mls/hr IV .[id number] PRN; Protocol; 4 MCG/MIN PRN Reason: TITRATE PER MD ORDER Last Admin: 11/19/16 06:32 Dose: 5 mcg/min, 19.05 mls/hr Dextrose (Dextrose 10% In Water) 1,000 mls @ 20 mls/hr IV .Q24H [facility] Last Admin: 11/19/16 06:31 Dose: 20 mls/hr Piperacillin Sod/Tazobactam Sod (Zosyn 2.25 Gm Iv Premix) 2.25 gm in 50 mls @ 100 mls/hr IVPB Q6H [facility] Last Admin: 11/19/16 06:00 Dose: 100 mls/hr Insulin Human Regular (Novolin R) 0 unit SC Q6 [facility] PRN Reason: Protocol Last Admin: 11/19/16 06:30 Dose: Not Given Levothyroxine Sodium (Synthroid) 175 mcg PO DAILY@0630 [facility] Last Admin: 11/19/16 06:31 Dose: 175 mcg Pantoprazole Sodium (Protonix Inj) 40 mg IVP DAILY [facility] Last Admin: 11/19/16 10:08 Dose: 40 mg - Labs Labs: 11/19/16 06:34 11/19/16 06:34 PT 19.5 SECONDS (9.7-12.2) H 10/28/16 08:07 INR 1.7 10/28/16 08:07 APTT 49 SECONDS (21-34) H 10/25/16 16:33 - Constitutional Appears: No Acute Distress, Older Than Stated Age - Head Exam Head Exam: ATRAUMATIC, NORMAL INSPECTION - Eye Exam Eye Exam: Normal appearance. absent: Scleral icterus - ENT Exam ENT Exam: Mucous Membranes Moist Additional comments: Trach site clean - Respiratory Exam Respiratory Exam: Rhonchi. absent: Rales, Wheezes - Cardiovascular Exam Cardiovascular Exam: +S1, +S2. absent: JVD - GI/Abdominal Exam GI & Abdominal Exam: Soft, Normal Bowel Sounds - Extremities Exam Extremities Exam: absent: Pedal Edema, Tenderness - Neurological Exam Neurological Exam: Awake. absent: Alert - Skin Skin Exam: Dry, Intact Assessment and Plan (1) Acute on chronic renal failure Status: Acute (2) Diabetes mellitus Status: Acute (3) CHF (congestive heart failure) Status: Chronic (4) ESRD (end stage renal disease) on dialysis Status: Chronic (5) Sepsis Status: Acute - Assessment and Plan (Free Text) Assessment: Dialysis today for control of volume Electrolytes acceptable UF goal 2kg as tolerated Vent and vasoactive agent management per ICU team
--- NOTE | 2016-11-19 14:20 | CP.CCUPN ---
CCU Subjective - Physician Review Events Since Last Encounter (Free Text): 11/19/16 14:00 Patient seen and examined in the intensive care unit. Case discussed with house staff in the morning rounds. Status post tracheostomy on ventilator support For hemodialysis today Open eyes to stimuli Tolerating feeding Afebrile No active bleeding noted On Levophed drip CCU Objective - Vital Signs / Intake & Output Vital Signs (Last 4 hours): Vital Signs Pulse Resp BP Pulse Ox 11/19/16 10:30 78 10 L 100 11/19/16 10:02 82 11 L 94/37 L 100 Intake and Output (Last 8hrs): Intake & Output 11/18/16 11/19/16 11/19/16 22:59 06:59 14:59 Intake Total 897.5 766.0 294.0 Balance 897.5 766.0 294.0 Weight 102 lb 5 oz Intake: IV 360 148 Intake, IV Amount 292.5 338.0 154.0 Right Distal Port PICC 140 190 80 Right PICC 152.5 148.0 74.0 Tube Feeding 245 280 140 Other: # Bowel Movements 1 1 1 - Physical Exam Head: Positive for: Atraumatic Pupils: Positive for: PERRL Extroacular Muscles: Positive for: EOMI Conjunctiva: Positive for: Icteric Mouth: Positive for: Dry Nose (Internal): Positive for: Other (NGT was replaced 11/17 [address] still in [address]) Neck: Positive for: Other (trach in place) Respiratory/Chest: Positive for: Rhonchi. Negative for: Clear to Auscultation, Respiratory Distress, Accessory Muscle Use Cardiovascular: Positive for: Regular Rate and Rhythm, Normal S1, S2. Negative for: Murmurs, Tachycardic, Bradycardic Abdomen: Negative for: Peritoneal Signs, Hernias Rectal: Negative for: Gross Blood Upper Extremity: Positive for: Cyanosis, Temperature Abnormalties, Other (cold fingers, ischemic 3rd digit on left hand ). Negative for: NORMAL PULSES, Neurovascularly Intact, Capillary Refill < 2s Lower Extremity: Positive for: Edema Neurological: Negative for: GCS=15, Speech Normal Skin: Positive for: Cold (bilateral hands), Other (gangrenous fingertips). Negative for: Warm Psychiatric: Positive for: Other (non-verbal ). Negative for: Alert, Oriented x 3, Normal Insight, Normal Concentration - Medications Active Medications: Active Medications Generic Name Dose Route Start Last Admin Trade Name Clementq PRN Reason Stop Dose Admin Albumin Human 12.5 gm 11/16/16 14:45 11/18/16 13:00 Albumin Human 25% (12.5 Gm/50 Ml) IV 12.5 gm MWF PRN Administration LOW BLOOD PRESSURE Albuterol/Ipratropium 3 ml 11/12/16 14:00 11/19/16 13:38 Duoneb 3 Mg/0.5 Mg (3 Ml) Ud INH 3 ml RQ6 [facility] Administration Epoetin Sly 10,000 unit 11/12/16 10:00 11/18/16 12:44 Procrit IV 10,000 unit TTS REK[facility] Administration Norepinephrine Bitartrate 4 mg 254 mls @ 15.24 mls/hr 11/16/16 20:28 06:32 / Sodium Chloride IV 5 mcg/min .[id number] PRN 19.05 mls/hr TITRATE PER MD ORDER Administration Protocol 4 MCG/MIN Dextrose 1,000 mls @ 20 mls/hr 11/16/16 23:22 11/19/16 06:31 Dextrose 10% In Water IV 20 mls/hr .Q24H [facility] Administration Piperacillin Sod/Tazobactam Sod 2.25 gm in 50 mls @ 100 mls/hr 11/17/16 18:00 11/19/16 12:56 Zosyn 2.25 Gm Iv Premix IVPB 100 mls/hr Q6H [facility] Administration Insulin Human Regular 0 unit 11/16/16 12:00 11/19/16 12:52 Novolin R SC Not Given Q6 [facility] Protocol Levothyroxine Sodium 175 mcg 11/18/16 06:30 11/19/16 06:31 Synthroid PO 175 mcg DAILY@0630 [facility] Administration Pantoprazole Sodium 40 mg 11/05/16 11:15 11/19/16 10:08 Protonix Inj IVP 40 mg DAILY [facility] Administration - Patient Studies Lab Studies: Microbiology Studies 11/17/16 09:15 Blood Culture - Preliminary Blood-During Dialysis NO GROWTH AFTER 48 HOURS 11/16/16 15:38 MRSA Culture (Admit) - Final Naris MRSA DETECTED Lab Studies 11/19/16 11/19/16 11/19/16 Range/Units 11:45 08:30 06:44 WBC (4.8-10.8) K/uL RBC (3.80-5.20) Mil/uL Hgb (11.0-16.0) g/dL Hct (34.0-47.0) % MCV (81.0-99.0) fL MCH (27.0-31.0) pg MCHC (33.0-37.0) g/dL RDW (11.5-14.5) % Plt Count (130-400) K/uL MPV (7.2-11.7) fL Neut % (Auto) (50.0-75.0) % Lymph % (Auto) (20.0-40.0) % [place] % (Auto) (0.0-10.0) % Eos % (Auto) (0.0-4.0) % Baso % (Auto) (0.0-2.0) % Neut # (1.8-7.0) K/uL Lymph # (1.0-4.3) K/uL [place] # (0.0-0.8) K/uL Eos # (0.0-0.7) K/uL Baso # (0.0-0.2) K/uL Differential Comment Sodium (132-148) mmol/L Potassium (3.6-5.2) mmol/L Chloride (98-107) mmol/L Carbon Dioxide (22-30) mmol/L Anion Gap (10-20) BUN (7-17) mg/dL Creatinine (0.7-1.2) MG/DL Est GFR ( Amer) Est GFR (Non-Af Amer) POC Glucose (mg/dL) 149 H 159 H (65-110) mg/dL Random Glucose (65-105) mg/dL Calcium (8.6-10.4) mg/dl Phosphorus (2.5-4.5) mg/dL Magnesium (1.6-2.3) mg/dL Total Bilirubin (0.2-1.3) mg/dL AST (14-36) U/L ALT (9-52) U/L Alkaline Phosphatase (38-126) U/L Total Protein (6.3-8.3) g/dL Albumin (3.5-5.0) g/dL Globulin (2.2-3.9) gm/dL Albumin/Globulin Ratio (1.0-2.1) Blood Type B POSITIVE Antibody Screen Negative 11/19/16 11/19/16 11/18/16 Range/Units 06:34 06:34 23:36 WBC 11.2 H (4.8-10.8) K/uL RBC 2.24 L (3.80-5.20) Mil/uL Hgb 6.9 L (11.0-16.0) g/dL Hct 21.2 L (34.0-47.0) % MCV 94.3 (81.0-99.0) fL MCH 30.8 (27.0-31.0) pg MCHC 32.6 L (33.0-37.0) g/dL RDW 21.9 H (11.5-14.5) % Plt Count 26 L* (130-400) K/uL MPV 9.4 (7.2-11.7) fL Neut % (Auto) 78.0 H (50.0-75.0) % Lymph % (Auto) 11.4 L (20.0-40.0) % [place] % (Auto) 9.6 (0.0-10.0) % Eos % (Auto) 0.3 (0.0-4.0) % Baso % (Auto) 0.7 (0.0-2.0) % Neut # 8.7 H (1.8-7.0) K/uL Lymph # 1.3 (1.0-4.3) K/uL [place] # 1.1 H (0.0-0.8) K/uL Eos # 0.0 (0.0-0.7) K/uL Baso # 0.1 (0.0-0.2) K/uL Differential Comment Sodium 136 (132-148) mmol/L Potassium 3.5 L (3.6-5.2) mmol/L Chloride 96 L (98-107) mmol/L Carbon Dioxide 26 (22-30) mmol/L Anion Gap 18 (10-20) BUN 8 (7-17) mg/dL Creatinine 0.9 (0.7-1.2) MG/DL Est GFR ( Amer) > 60 Est GFR (Non-Af Amer) > 60 POC Glucose (mg/dL) 133 H (65-110) mg/dL Random Glucose 138 H (65-105) mg/dL Calcium 7.9 L (8.6-10.4) mg/dl Phosphorus 1.1 L (2.5-4.5) mg/dL Magnesium 1.8 (1.6-2.3) mg/dL Total Bilirubin 8.7 H (0.2-1.3) mg/dL AST 35 (14-36) U/L ALT 24 (9-52) U/L Alkaline Phosphatase 331 H (38-126) U/L Total Protein 5.9 L (6.3-8.3) g/dL Albumin 2.4 L (3.5-5.0) g/dL Globulin 3.5 (2.2-3.9) gm/dL Albumin/Globulin Ratio 0.7 L (1.0-2.1) Blood Type Antibody Screen 11/18/16 Range/Units 17:33 WBC (4.8-10.8) K/uL RBC (3.80-5.20) Mil/uL Hgb (11.0-16.0) g/dL Hct (34.0-47.0) % MCV (81.0-99.0) fL MCH (27.0-31.0) pg MCHC (33.0-37.0) g/dL RDW (11.5-14.5) % Plt Count (130-400) K/uL MPV (7.2-11.7) fL Neut % (Auto) (50.0-75.0) % Lymph % (Auto) (20.0-40.0) % [place] % (Auto) (0.0-10.0) % Eos % (Auto) (0.0-4.0) % Baso % (Auto) (0.0-2.0) % Neut # (1.8-7.0) K/uL Lymph # (1.0-4.3) K/uL [place] # (0.0-0.8) K/uL Eos # (0.0-0.7) K/uL Baso # (0.0-0.2) K/uL Differential Comment Sodium (132-148) mmol/L Potassium (3.6-5.2) mmol/L Chloride (98-107) mmol/L Carbon Dioxide (22-30) mmol/L Anion Gap (10-20) BUN (7-17) mg/dL Creatinine (0.7-1.2) MG/DL Est GFR ( Amer) Est GFR (Non-Af Amer) POC Glucose (mg/dL) 128 H (65-110) mg/dL Random Glucose (65-105) mg/dL Calcium (8.6-10.4) mg/dl Phosphorus (2.5-4.5) mg/dL Magnesium (1.6-2.3) mg/dL Total Bilirubin (0.2-1.3) mg/dL AST (14-36) U/L ALT (9-52) U/L Alkaline Phosphatase (38-126) U/L Total Protein (6.3-8.3) g/dL Albumin (3.5-5.0) g/dL Globulin (2.2-3.9) gm/dL Albumin/Globulin Ratio (1.0-2.1) Blood Type Antibody Screen Laboratory Results - last 24 hr 11/18/16 11/18/16 11/19/16 17:33 23:36 06:34 WBC 11.2 H RBC 2.24 L Hgb 6.9 L Hct 21.2 L MCV 94.3 MCH 30.8 MCHC 32.6 L RDW 21.9 H Plt Count 26 L* MPV 9.4 Neut % (Auto) 78.0 H Lymph % (Auto) 11.4 L [place] % (Auto) 9.6 Eos % (Auto) 0.3 Baso % (Auto) 0.7 Neut # 8.7 H Lymph # 1.3 [place] # 1.1 H Eos # 0.0 Baso # 0.1 Differential Comment Sodium Potassium Chloride Carbon Dioxide Anion Gap BUN Creatinine Est GFR ( Amer) Est GFR (Non-Af Amer) POC Glucose (mg/dL) 128 H 133 H Random Glucose Calcium Phosphorus Magnesium Total Bilirubin AST ALT Alkaline Phosphatase Total Protein Albumin Globulin Albumin/Globulin Ratio Blood Type Antibody Screen 11/19/16 11/19/16 11/19/16 06:34 06:44 08:30 WBC RBC Hgb Hct MCV MCH MCHC RDW Plt Count MPV Neut % (Auto) Lymph % (Auto) [place] % (Auto) Eos % (Auto) Baso % (Auto) Neut # Lymph # [place] # Eos # Baso # Differential Comment Sodium 136 Potassium 3.5 L Chloride 96 L Carbon Dioxide 26 Anion Gap 18 BUN 8 Creatinine 0.9 Est GFR ( Amer) > 60 Est GFR (Non-Af Amer) > 60 POC Glucose (mg/dL) 159 H Random Glucose 138 H Calcium 7.9 L Phosphorus 1.1 L Magnesium 1.8 Total Bilirubin 8.7 H AST 35 ALT 24 Alkaline Phosphatase 331 H Total Protein 5.9 L Albumin 2.4 L Globulin 3.5 Albumin/Globulin Ratio 0.7 L Blood Type B POSITIVE Antibody Screen Negative 11/19/16 11:45 WBC RBC Hgb Hct MCV MCH MCHC RDW Plt Count MPV Neut % (Auto) Lymph % (Auto) [place] % (Auto) Eos % (Auto) Baso % (Auto) Neut # Lymph # [place] # Eos # Baso # Differential Comment Sodium Potassium Chloride Carbon Dioxide Anion Gap BUN Creatinine Est GFR ( Amer) Est GFR (Non-Af Amer) POC Glucose (mg/dL) 149 H Random Glucose Calcium Phosphorus Magnesium Total Bilirubin AST ALT Alkaline Phosphatase Total Protein Albumin Globulin Albumin/Globulin Ratio Blood Type Antibody Screen Fingerstick Blood Sugar Results: 149 Review of Systems - Review of Systems Systems not reviewed;Unavailable: Other (Status post tracheostomy on ventilator support) Critical Care Progress Note - Ventilator Checklist Head of Bed 30 Degrees: Yes Daily Spontaneous Breathing Trial: Yes PUD Prophalyxis: Yes - Nutrition Nutrition: Nutrition Category Date Time Status NPO Diet [DIET] Diets 11/17/16 Breakfast Active Assessment/Plan (1) Respiratory failure Current Visit: Yes Status: Acute Comment: Status post tracheostomy on ventilator support wean as tolerated Continue feeding Transfuse packed RBCs during hemodialysis Monitor platelet count and H&H Prognosis poor (2) Lower GI bleed Assessment and plan: s/p sigmoidoscopy demonstrating severe rectal and recto-sigmoid ulceration, s/p epi/biopolar cautery Patient continued to bleed Status post transfusion of 2 units and RBCs Continue hemodialysis Continue to monitor H&H Family refused surgery Current Visit: Yes Status: Acute (3) ESRD (end stage renal disease) on dialysis Current Visit: No Status: Chronic
--- NOTE | 2016-11-19 18:47 | CP.PCM.PN ---
Subjective - Date & Time of Evaluation Date of Evaluation: 11/19/16 Time of Evaluation: 18:47 - Subjective Subjective: Patient condition remains same. On ventilator. Awake. At increasingly sleepy. Labs reviewed Low potassium level noted, also low platelets level noted. Patient is having multiple decubiti, gangrene of the hands noted. Overall prognosis is poor. We'll speak to the patient's daughter for prognosis and the further management Objective - Vital Signs/Intake and Output Vital Signs (last 24 hours): Temp Pulse Resp BP Pulse Ox 97.3 F L 83 15 99/38 L 100 11/19/16 16:00 11/19/16 17:02 11/19/16 17:02 11/19/16 17:02 11/19/16 17:02 Intake and Output: 11/19/16 11/19/16 06:59 18:59 Intake Total 1092.5 798.5 Output Total 2 Balance 1092.5 796.5 - Medications Medications: Current Medications Albumin Human (Albumin Human 25% (12.5 Gm/50 Ml)) 12.5 gm IV MWF PRN PRN Reason: LOW BLOOD PRESSURE Last Admin: 11/18/16 13:00 Dose: 12.5 gm Albuterol/Ipratropium (Duoneb 3 Mg/0.5 Mg (3 Ml) Ud) 3 ml INH RQ6 [facility] Last Admin: 11/19/16 13:38 Dose: 3 ml Epoetin Sly (Procrit) 10,000 unit IV TTS [facility] Last Admin: 11/18/16 12:44 Dose: 10,000 unit Norepinephrine Bitartrate 4 mg (/ Sodium Chloride) 254 mls @ 15.24 mls/hr IV .[id number] PRN; Protocol; 4 MCG/MIN PRN Reason: TITRATE PER MD ORDER Last Admin: 11/19/16 06:32 Dose: 5 mcg/min, 19.05 mls/hr Dextrose (Dextrose 10% In Water) 1,000 mls @ 20 mls/hr IV .Q24H [facility] Last Admin: 11/19/16 06:31 Dose: 20 mls/hr Piperacillin Sod/Tazobactam Sod (Zosyn 2.25 Gm Iv Premix) 2.25 gm in 50 mls @ 100 mls/hr IVPB Q6H [facility] Last Admin: 11/19/16 17:35 Dose: 100 mls/hr Insulin Human Regular (Novolin R) 0 unit SC Q6 [facility] PRN Reason: Protocol Last Admin: 11/19/16 17:51 Dose: 1 unit Levothyroxine Sodium (Synthroid) 175 mcg PO DAILY@0630 [facility] Last Admin: 11/19/16 06:31 Dose: 175 mcg Pantoprazole Sodium (Protonix Inj) 40 mg IVP DAILY [facility] Last Admin: 11/19/16 10:08 Dose: 40 mg - Labs Labs: 11/19/16 06:34 11/19/16 06:34 PT 19.5 SECONDS (9.7-12.2) H 10/28/16 08:07 INR 1.7 10/28/16 08:07 APTT 49 SECONDS (21-34) H 10/25/16 16:33
[2016-11-19] MEDS: Potassium & Sodium Phosphate PO SCH (20:00)
[2016-11-19] MEDS: Epoetin Alfa 10,000 unit/ml Dialysis IV SCH (22:27)
[2016-11-20] MEDS: Albuterol-Ipratrop 3 mg / 0.5 (3 ml) UD INH SCH ×4 (01:10→19:52)
[2016-11-20] MEDS: Piperacill/Tazo 2.25gm in Dex 2.25 GM/50 ML BAG IVPB SCH ×4 (05:30→17:54)
[2016-11-20] MEDS: Levothyroxine 175 MCG TAB PO SCH (05:55)
[2016-11-20] MEDS: (Novolin R) Insulin Human Regular 100 units/ml vial SC SCH ×4 (06:00→17:57)
[2016-11-20 06:54] LABS: BASO # 0.1 K/uL (0.0-0.2); BASO % 1.1 % (0.0-2.0); EOS # 0.1 K/uL (0.0-0.7); EOS % 1.1 % (0.0-4.0); HEMATOCRIT 26.4 % (34.0-47.0); LYMPH # 0.8 K/uL (1.0-4.3); LYMPH % 6.4 % (20.0-40.0); MEAN CELL VOLUME 91.4 fL (81.0-99.0); MEAN CORPUSCULAR HEMOGLOBIN 30.4 pg (27.0-31.0); MEAN CORPUSCULAR HGB CONC 33.2 g/dL (33.0-37.0); MEAN PLATELET VOLUME 8.7 fL (7.2-11.7); MONO # 1.2 K/uL (0.0-0.8); MONO % 9.6 % (0.0-10.0); NRBC % 0.1 % (0.0-2.0); RED CELL DISTRIBUTION WIDTH 18.7 % (11.5-14.5); WHITE BLOOD COUNT 12.9 K/uL (4.8-10.8)
[2016-11-20 07:00] LABS: PLATELET COUNT 13 K/uL (130-400)
[2016-11-20 07:08] LABS: CHLORIDE 97 mmol/L (98-107); POTASSIUM 3.4 mmol/L (3.6-5.2); SODIUM 136 mmol/L (132-148)
[2016-11-20 07:10] LABS: ALB/GLOB RATIO 0.6 (1.0-2.1); ALKALINE PHOSPHATASE 270 U/L (38-126); AST/SGOT 32 U/L (14-36); BILIRUBIN,TOTAL 10.2 mg/dL (0.2-1.3); CARBON DIOXIDE 25 mmol/L (22-30); GFR AFRICAN-AMERICAN > 60; TOTAL PROTEIN 5.9 g/dL (6.3-8.3)
[2016-11-20 07:11] LABS: ALT/SGPT 24 U/L (9-52); BLOOD UREA NITROGEN 10 mg/dL (7-17); CALCIUM 8.5 mg/dl (8.6-10.4); GLUCOSE,RANDOM 224 mg/dL (65-105); MAGNESIUM 1.8 mg/dL (1.6-2.3); PHOSPHOROUS 1.2 mg/dL (2.5-4.5)
[2016-11-20 08:26] LABS: EOSINOPHIL 2 % (0-4); NEUTROPHIL 79 % (50-75); TOTAL CELLS COUNTED 100
[2016-11-20] MEDS: Potassium & Sodium Phosphate PO SCH ×2 (10:15→17:55)
--- NOTE | 2016-11-20 10:42 | RAD ---
PROCEDURE: CHEST RADIOGRAPH, 1 VIEW HISTORY: ICU routine/Vented COMPARISON: 11/19/2016 FINDINGS: There is stable position of the tracheostomy tube. The nasogastric tube terminates in the stomach. The right PICC line terminates at the cavoatrial junction. LUNGS: There is persistent pulmonary venous congestion. There is ill-defined airspace disease in both lower lobes. PLEURA: There is no significant interval change in moderate right pleural effusion.No pneumothorax. CARDIOVASCULAR: There is mild cardiomegaly. Status post CABG. OSSEOUS STRUCTURES: Within normal limits for the patient's age. VISUALIZED UPPER ABDOMEN: Normal. OTHER FINDINGS: None. IMPRESSION: No significant interval change in venous congestion and and moderate right pleural effusion. Suspect developing bilateral lower lobe atelectasis/pneumonia.
--- NOTE | 2016-11-20 14:21 | CP.CCUPN ---
CCU Subjective - Physician Review Events Since Last Encounter (Free Text): 11/20/16 14:19 Patient seen and examined in the intensive care unit. Case discussed with staff in the morning rounds. Bleeding noted from the wound site On ventilatory support requiring high FiO2 Low-dose Levophed Lethargic open eyes to stimuli CCU Objective - Vital Signs / Intake & Output Vital Signs (Last 4 hours): Vital Signs Temp Pulse Resp BP Pulse Ox 11/20/16 14:00 96 H 20 100 11/20/16 13:46 109 H 15 92/41 L 100 11/20/16 13:30 93 H 17 100 11/20/16 13:15 92 H 18 89/39 L 100 11/20/16 13:10 99 H 15 89/35 L 100 11/20/16 13:05 98 F 93 H 15 98/35 L 11/20/16 13:00 92 H 14 100 11/20/16 12:45 92 H 15 89/39 L 100 11/20/16 12:30 98.1 F 99 H 12 89/39 L 100 11/20/16 12:15 73 21 87/32 L 100 11/20/16 12:00 98.1 F 72 16 100 11/20/16 11:45 94 H 15 94/39 L 100 11/20/16 11:30 73 15 100 11/20/16 11:15 94 H 18 85/39 L 100 11/20/16 11:00 95 H 16 100 11/20/16 10:45 95 H 15 90/42 L 100 11/20/16 10:30 96 H 16 100 11/20/16 10:21 97 H 15 82/42 L 100 Intake and Output (Last 8hrs): Intake & Output 11/19/16 11/20/16 11/20/16 22:59 06:59 14:59 Intake Total 1810.0 769.6 664.9 Output Total 2 Balance 1808.0 769.6 664.9 Weight 101 lb 8 oz Intake: IV 273 197 0 Intake, IV Amount 527.0 292.6 384.9 Right Distal Port PICC 340 160 340 Right PICC 187.0 132.6 44.9 Tube Feeding 260 280 280 Blood Product 650 0 Apheresis Plts Acda Lr 0 1st Con Unit [id number] Red Blood Cells Cpd As1 325 Lr Unit [id number] Red Blood Cells Cpd As1 325 Lr Unit [id number] Other 100 Red Blood Cells Cpd As1 50 Lr Unit [id number] Red Blood Cells Cpd As1 50 Lr Unit [id number] Output: Stool 2 Other: # Bowel Movements 1 1 - Physical Exam Head: Positive for: Atraumatic Pupils: Positive for: PERRL Extroacular Muscles: Positive for: EOMI Conjunctiva: Positive for: Icteric Mouth: Positive for: Dry Nose (Internal): Positive for: Other (NGT was replaced 11/17 [address] is still in [address]) Neck: Positive for: Other (trach in place) Respiratory/Chest: Positive for: Rhonchi. Negative for: Clear to Auscultation, Respiratory Distress, Accessory Muscle Use Cardiovascular: Positive for: Regular Rate and Rhythm, Normal S1, S2. Negative for: Murmurs, Tachycardic, Bradycardic Abdomen: Negative for: Peritoneal Signs, Hernias Rectal: Negative for: Gross Blood Upper Extremity: Positive for: Cyanosis, Temperature Abnormalties, Other (cold fingers, ischemic 3rd digit on left hand ). Negative for: NORMAL PULSES, Neurovascularly Intact, Capillary Refill < 2s Lower Extremity: Positive for: Edema Neurological: Negative for: GCS=15, Speech Normal Skin: Positive for: Cold (bilateral hands), Other (gangrenous fingertips). Negative for: Warm Psychiatric: Positive for: Other (non-verbal ). Negative for: Alert, Oriented x 3, Normal Insight, Normal Concentration - Medications Active Medications: Active Medications Generic Name Dose Route Start Last Admin Trade Name Freq PRN Reason Stop Dose Admin Albumin Human 12.5 gm 11/16/16 14:45 11/18/16 13:00 Albumin Human 25% (12.5 Gm/50 Ml) IV 12.5 gm MWF PRN Administration LOW BLOOD PRESSURE Albuterol/Ipratropium 3 ml 11/12/16 14:00 11/20/16 13:28 Duoneb 3 Mg/0.5 Mg (3 Ml) Ud INH 3 ml RQ6 REKHA Administration Epoetin Sly 10,000 unit 11/12/16 10:00 11/19/16 22:27 Procrit IV 10,000 unit TTS REKHA Administration Norepinephrine Bitartrate 4 mg 254 mls @ 15.24 mls/hr 11/16/16 20:28 12:14 / Sodium Chloride IV 1 mcg/min .[id number] PRN 3.81 mls/hr TITRATE PER MD ORDER Titration Protocol 4 MCG/MIN Piperacillin Sod/Tazobactam Sod 2.25 gm in 50 mls @ 100 mls/hr 11/17/16 18:00 11/20/16 12:10 Zosyn 2.25 Gm Iv Premix IVPB 100 mls/hr Q6H REKHA Administration Insulin Human Regular 0 unit 11/16/16 12:00 11/20/16 12:10 Novolin R SC 1 unit Q6 REKHA Administration Protocol Levothyroxine Sodium 175 mcg 11/18/16 06:30 11/20/16 05:55 Synthroid PO 175 mcg DAILY@0630 REKHA Administration Pantoprazole Sodium 40 mg 11/05/16 11:15 11/20/16 10:14 Protonix Inj IVP 40 mg DAILY REKHA Administration Potassium Phos/Sodium Phos 1 pkt 11/19/16 19:00 11/20/16 10:15 Neutra-Phos PO 11/21/16 19:01 1 pkt BID REKHA Administration - Patient Studies Lab Studies: Microbiology Studies 11/17/16 09:15 Blood Culture - Preliminary Blood-During Dialysis NO GROWTH AFTER 3 DAYS Lab Studies 11/20/16 11/20/16 11/20/16 Range/Units 06:48 06:48 06:09 WBC 12.9 H (4.8-10.8) K/uL RBC 2.89 L (3.80-5.20) Mil/uL Hgb 8.8 L (11.0-16.0) g/dL Hct 26.4 L (34.0-47.0) % MCV 91.4 D (81.0-99.0) fL MCH 30.4 (27.0-31.0) pg MCHC 33.2 (33.0-37.0) g/dL RDW 18.7 H (11.5-14.5) % Plt Count 13 L* D (130-400) K/uL MPV 8.7 (7.2-11.7) fL Neut % (Auto) 81.8 H (50.0-75.0) % Lymph % (Auto) 6.4 L (20.0-40.0) % [place] % (Auto) 9.6 (0.0-10.0) % Eos % (Auto) 1.1 (0.0-4.0) % Baso % (Auto) 1.1 (0.0-2.0) % Neut # 10.6 H (1.8-7.0) K/uL Lymph # 0.8 L (1.0-4.3) K/uL [place] # 1.2 H (0.0-0.8) K/uL Eos # 0.1 (0.0-0.7) K/uL Baso # 0.1 (0.0-0.2) K/uL Neutrophils % (Manual) 79 H (50-75) % Band Neutrophils % 9 H (0-2) % Lymphocytes % (Manual) 4 L (20-40) % Monocytes % (Manual) 6 (0-10) % Eosinophils % (Manual) 2 (0-4) % Toxic Granulation Present Platelet Estimate Markedly decreased L (NORMAL) Polychromasia Slight Hypochromasia (manual) Slight Anisocytosis (manual) Moderate Sodium 136 (132-148) mmol/L Potassium 3.4 L (3.6-5.2) mmol/L Chloride 97 L (98-107) mmol/L Carbon Dioxide 25 (22-30) mmol/L Anion Gap 17 (10-20) BUN 10 (7-17) mg/dL Creatinine 0.9 (0.7-1.2) MG/DL Est GFR ( Amer) > 60 Est GFR (Non-Af Amer) > 60 POC Glucose (mg/dL) 243 H (65-110) mg/dL Random Glucose 224 H (65-105) mg/dL Calcium 8.5 L (8.6-10.4) mg/dl Phosphorus 1.2 L (2.5-4.5) mg/dL Magnesium 1.8 (1.6-2.3) mg/dL Total Bilirubin 10.2 H (0.2-1.3) mg/dL AST 32 (14-36) U/L ALT 24 (9-52) U/L Alkaline Phosphatase 270 H (38-126) U/L Total Protein 5.9 L (6.3-8.3) g/dL Albumin 2.1 L (3.5-5.0) g/dL Globulin 3.8 (2.2-3.9) gm/dL Albumin/Globulin Ratio 0.6 L (1.0-2.1) Blood Type Antibody Screen 11/20/16 11/19/16 11/19/16 Range/Units 00:21 17:43 08:30 WBC (4.8-10.8) K/uL RBC (3.80-5.20) Mil/uL Hgb (11.0-16.0) g/dL Hct (34.0-47.0) % MCV (81.0-99.0) fL MCH (27.0-31.0) pg MCHC (33.0-37.0) g/dL RDW (11.5-14.5) % Plt Count (130-400) K/uL MPV (7.2-11.7) fL Neut % (Auto) (50.0-75.0) % Lymph % (Auto) (20.0-40.0) % [place] % (Auto) (0.0-10.0) % Eos % (Auto) (0.0-4.0) % Baso % (Auto) (0.0-2.0) % Neut # (1.8-7.0) K/uL Lymph # (1.0-4.3) K/uL [place] # (0.0-0.8) K/uL Eos # (0.0-0.7) K/uL Baso # (0.0-0.2) K/uL Neutrophils % (Manual) (50-75) % Band Neutrophils % (0-2) % Lymphocytes % (Manual) (20-40) % Monocytes % (Manual) (0-10) % Eosinophils % (Manual) (0-4) % Toxic Granulation Platelet Estimate (NORMAL) Polychromasia Hypochromasia (manual) Anisocytosis (manual) Sodium (132-148) mmol/L Potassium (3.6-5.2) mmol/L Chloride (98-107) mmol/L Carbon Dioxide (22-30) mmol/L Anion Gap (10-20) BUN (7-17) mg/dL Creatinine (0.7-1.2) MG/DL Est GFR ( Amer) Est GFR (Non-Af Amer) POC Glucose (mg/dL) 155 H 176 H (65-110) mg/dL Random Glucose (65-105) mg/dL Calcium (8.6-10.4) mg/dl Phosphorus (2.5-4.5) mg/dL Magnesium (1.6-2.3) mg/dL Total Bilirubin (0.2-1.3) mg/dL AST (14-36) U/L ALT (9-52) U/L Alkaline Phosphatase (38-126) U/L Total Protein (6.3-8.3) g/dL Albumin (3.5-5.0) g/dL Globulin (2.2-3.9) gm/dL Albumin/Globulin Ratio (1.0-2.1) Blood Type B POSITIVE Antibody Screen Negative Laboratory Results - last 24 hr 11/19/16 11/19/16 11/20/16 08:30 17:43 00:21 WBC RBC Hgb Hct MCV MCH MCHC RDW Plt Count MPV Neut % (Auto) Lymph % (Auto) [place] % (Auto) Eos % (Auto) Baso % (Auto) Neut # Lymph # [place] # Eos # Baso # Neutrophils % (Manual) Band Neutrophils % Lymphocytes % (Manual) Monocytes % (Manual) Eosinophils % (Manual) Toxic Granulation Platelet Estimate Polychromasia Hypochromasia (manual) Anisocytosis (manual) Sodium Potassium Chloride Carbon Dioxide Anion Gap BUN Creatinine Est GFR ( Amer) Est GFR (Non-Af Amer) POC Glucose (mg/dL) 176 H 155 H Random Glucose Calcium Phosphorus Magnesium Total Bilirubin AST ALT Alkaline Phosphatase Total Protein Albumin Globulin Albumin/Globulin Ratio Blood Type B POSITIVE Antibody Screen Negative 11/20/16 11/20/16 11/20/16 06:09 06:48 06:48 WBC 12.9 H RBC 2.89 L Hgb 8.8 L Hct 26.4 L MCV 91.4 D MCH 30.4 MCHC 33.2 RDW 18.7 H Plt Count 13 L* D MPV 8.7 Neut % (Auto) 81.8 H Lymph % (Auto) 6.4 L [place] % (Auto) 9.6 Eos % (Auto) 1.1 Baso % (Auto) 1.1 Neut # 10.6 H Lymph # 0.8 L [place] # 1.2 H Eos # 0.1 Baso # 0.1 Neutrophils % (Manual) 79 H Band Neutrophils % 9 H Lymphocytes % (Manual) 4 L Monocytes % (Manual) 6 Eosinophils % (Manual) 2 Toxic Granulation Present Platelet Estimate Markedly decreased L Polychromasia Slight Hypochromasia (manual) Slight Anisocytosis (manual) Moderate Sodium 136 Potassium 3.4 L Chloride 97 L Carbon Dioxide 25 Anion Gap 17 BUN 10 Creatinine 0.9 Est GFR ( Amer) > 60 Est GFR (Non-Af Amer) > 60 POC Glucose (mg/dL) 243 H Random Glucose 224 H Calcium 8.5 L Phosphorus 1.2 L Magnesium 1.8 Total Bilirubin 10.2 H AST 32 ALT 24 Alkaline Phosphatase 270 H Total Protein 5.9 L Albumin 2.1 L Globulin 3.8 Albumin/Globulin Ratio 0.6 L Blood Type Antibody Screen Fingerstick Blood Sugar Results: 155 Review of Systems - Review of Systems Systems not reviewed;Unavailable: Altered Mental Status Critical Care Progress Note - Ventilator Checklist Head of Bed 30 Degrees: Yes - Nutrition Nutrition: Nutrition Category Date Time Status NPO Diet [DIET] Diets 11/17/16 Breakfast Active Assessment/Plan (1) Respiratory failure Current Visit: Yes Status: Acute Comment: Continue ventilatory support and reduce FiO2 as tolerated Transfuse platelets Continue feeding Monitor platelet count and H&H Prognosis poor (2) Lower GI bleed Assessment and plan: s/p sigmoidoscopy demonstrating severe rectal and recto-sigmoid ulceration, s/p epi/biopolar cautery Patient continued to bleed Status post transfusion of 2 units and RBCs Continue hemodialysis Continue to monitor H&H Family refused surgery Current Visit: Yes Status: Acute (3) ESRD (end stage renal disease) on dialysis Current Visit: No Status: Chronic
--- NOTE | 2016-11-20 18:56 | CP.PCM.PN ---
Subjective - Date & Time of Evaluation Date of Evaluation: 11/20/16 Time of Evaluation: 18:56 - Subjective Subjective: Xolair prognosis is very poor. Patient is somewhat responding. But the mostly drowsy. On ventilator. Dialysis. Low blood pressure noted. Overall prognosis is very poor. Spoke to the patient started in details will continue the current treatment and will follow the patient Objective - Vital Signs/Intake and Output Vital Signs (last 24 hours): Temp Pulse Resp BP Pulse Ox 98.2 F 93 H 17 93/39 L 100 11/20/16 16:00 11/20/16 18:16 11/20/16 18:16 11/20/16 18:16 11/20/16 18:16 Intake and Output: 11/20/16 11/20/16 06:59 18:59 Intake Total 2300.6 1318.5 Balance 2300.6 1318.5 - Medications Medications: Current Medications Albumin Human (Albumin Human 25% (12.5 Gm/50 Ml)) 12.5 gm IV MWF PRN PRN Reason: LOW BLOOD PRESSURE Last Admin: 11/18/16 13:00 Dose: 12.5 gm Albuterol/Ipratropium (Duoneb 3 Mg/0.5 Mg (3 Ml) Ud) 3 ml INH RQ6 [facility] Last Admin: 11/20/16 13:28 Dose: 3 ml Epoetin Sly (Procrit) 10,000 unit IV TTS [facility] Last Admin: 11/19/16 22:27 Dose: 10,000 unit Norepinephrine Bitartrate 4 mg (/ Sodium Chloride) 254 mls @ 15.24 mls/hr IV .[id number] PRN; Protocol; 4 MCG/MIN PRN Reason: TITRATE PER MD ORDER Last Titration: 11/20/16 16:00 Dose: 0 mcg/min, 0 mls/hr Piperacillin Sod/Tazobactam Sod (Zosyn 2.25 Gm Iv Premix) 2.25 gm in 50 mls @ 100 mls/hr IVPB Q6H [facility] Last Admin: 11/20/16 17:54 Dose: 100 mls/hr Insulin Human Regular (Novolin R) 0 unit SC Q6 REKHA PRN Reason: Protocol Last Admin: 11/20/16 17:57 Dose: 3 unit Levothyroxine Sodium (Synthroid) 175 mcg PO DAILY@0630 [facility] Last Admin: 11/20/16 05:55 Dose: 175 mcg Pantoprazole Sodium (Protonix Inj) 40 mg IVP DAILY [facility] Last Admin: 11/20/16 10:14 Dose: 40 mg Potassium Phos/Sodium Phos (Neutra-Phos) 1 pkt PO BID [facility] Stop: 11/21/16 19:01 Last Admin: 11/20/16 17:55 Dose: 1 pkt - Labs Labs: 11/20/16 06:48 11/20/16 06:48 PT 19.5 SECONDS (9.7-12.2) H 10/28/16 08:07 INR 1.7 10/28/16 08:07 APTT 49 SECONDS (21-34) H 10/25/16 16:33
--- NOTE | 2016-11-20 21:40 | CP.PCM.PN ---
Subjective - Date & Time of Evaluation Date of Evaluation: 11/19/16 Time of Evaluation: 08:30 - Subjective Subjective: Patient seen and evaluated On Ventilator, drowsy Condition remains poor Daughter is aware Objective - Vital Signs/Intake and Output Vital Signs (last 24 hours): Temp Pulse Resp BP Pulse Ox 98.2 F 100 H 21 88/32 L 100 11/20/16 16:00 11/20/16 21:00 11/20/16 21:00 11/20/16 20:45 11/20/16 21:00 Intake and Output: 11/20/16 11/21/16 18:59 06:59 Intake Total 1378.5 165 Balance 1378.5 165 - Medications Medications: Current Medications Albumin Human (Albumin Human 25% (12.5 Gm/50 Ml)) 12.5 gm IV MWF PRN PRN Reason: LOW BLOOD PRESSURE Last Admin: 11/18/16 13:00 Dose: 12.5 gm Albuterol/Ipratropium (Duoneb 3 Mg/0.5 Mg (3 Ml) Ud) 3 ml INH RQ6 REKHA Last Admin: 11/20/16 19:52 Dose: 3 ml Epoetin Sly (Procrit) 10,000 unit IV TTS REKHA Last Admin: 11/19/16 22:27 Dose: 10,000 unit Norepinephrine Bitartrate 4 mg (/ Sodium Chloride) 254 mls @ 15.24 mls/hr IV .[id number] PRN; Protocol; 4 MCG/MIN PRN Reason: TITRATE PER MD ORDER Last Titration: 11/20/16 16:00 Dose: 0 mcg/min, 0 mls/hr Piperacillin Sod/Tazobactam Sod (Zosyn 2.25 Gm Iv Premix) 2.25 gm in 50 mls @ 100 mls/hr IVPB Q6H REKHA Last Admin: 11/20/16 17:54 Dose: 100 mls/hr Insulin Human Regular (Novolin R) 0 unit SC Q6 REKHA PRN Reason: Protocol Last Admin: 11/20/16 17:57 Dose: 3 unit Levothyroxine Sodium (Synthroid) 175 mcg PO DAILY@0630 RE[facility] Last Admin: 11/20/16 05:55 Dose: 175 mcg Pantoprazole Sodium (Protonix Inj) 40 mg IVP DAILY REK[facility] Last Admin: 11/20/16 10:14 Dose: 40 mg Potassium Phos/Sodium Phos (Neutra-Phos) 1 pkt PO BID REKHA Stop: 11/21/16 19:01 Last Admin: 11/20/16 17:55 Dose: 1 pkt - Labs Labs: 11/20/16 06:48 11/20/16 06:48 PT 19.5 SECONDS (9.7-12.2) H 10/28/16 08:07 INR 1.7 10/28/16 08:07 APTT 49 SECONDS (21-34) H 10/25/16 16:33
--- NOTE | 2016-11-20 21:43 | CP.PCM.PN ---
Subjective - Date & Time of Evaluation Date of Evaluation: 11/20/16 Time of Evaluation: 14:15 - Subjective Subjective: Patient condition remains poor Low platelets and echymosis now HIT? Objective - Vital Signs/Intake and Output Vital Signs (last 24 hours): Temp Pulse Resp BP Pulse Ox 98.2 F 100 H 21 88/32 L 100 11/20/16 16:00 11/20/16 21:00 11/20/16 21:00 11/20/16 20:45 11/20/16 21:00 Intake and Output: 11/20/16 11/21/16 18:59 06:59 Intake Total 1378.5 165 Balance 1378.5 165 - Medications Medications: Current Medications Albumin Human (Albumin Human 25% (12.5 Gm/50 Ml)) 12.5 gm IV MWF PRN PRN Reason: LOW BLOOD PRESSURE Last Admin: 11/18/16 13:00 Dose: 12.5 gm Albuterol/Ipratropium (Duoneb 3 Mg/0.5 Mg (3 Ml) Ud) 3 ml INH RQ6 REKHA Last Admin: 11/20/16 19:52 Dose: 3 ml Epoetin Sly (Procrit) 10,000 unit IV TTS REKHA Last Admin: 11/19/16 22:27 Dose: 10,000 unit Norepinephrine Bitartrate 4 mg (/ Sodium Chloride) 254 mls @ 15.24 mls/hr IV .[id number] PRN; Protocol; 4 MCG/MIN PRN Reason: TITRATE PER MD ORDER Last Titration: 11/20/16 16:00 Dose: 0 mcg/min, 0 mls/hr Piperacillin Sod/Tazobactam Sod (Zosyn 2.25 Gm Iv Premix) 2.25 gm in 50 mls @ 100 mls/hr IVPB Q6H [facility] Last Admin: 11/20/16 17:54 Dose: 100 mls/hr Insulin Human Regular (Novolin R) 0 unit SC Q6 REKHA PRN Reason: Protocol Last Admin: 11/20/16 17:57 Dose: 3 unit Levothyroxine Sodium (Synthroid) 175 mcg PO DAILY@0630 [facility] Last Admin: 11/20/16 05:55 Dose: 175 mcg Pantoprazole Sodium (Protonix Inj) 40 mg IVP DAILY [facility] Last Admin: 11/20/16 10:14 Dose: 40 mg Potassium Phos/Sodium Phos (Neutra-Phos) 1 pkt PO BID REKHA Stop: 11/21/16 19:01 Last Admin: 11/20/16 17:55 Dose: 1 pkt - Labs Labs: 11/20/16 06:48 11/20/16 06:48 PT 19.5 SECONDS (9.7-12.2) H 10/28/16 08:07 INR 1.7 10/28/16 08:07 APTT 49 SECONDS (21-34) H 10/25/16 16:33
[2016-11-20] MEDS ORDERED: Acetaminophen/Codeine elixir 120-12mg/5ml PO PRN (22:00)
[2016-11-21] MEDS: Piperacill/Tazo 2.25gm in Dex 2.25 GM/50 ML BAG IVPB SCH ×5 (00:33→23:50)
[2016-11-21] MEDS: (Novolin R) Insulin Human Regular 100 units/ml vial SC SCH ×5 (00:45→23:50)
[2016-11-21] MEDS: Albuterol-Ipratrop 3 mg / 0.5 (3 ml) UD INH SCH ×4 (01:05→20:29)
[2016-11-21 04:44] LABS: ABG ALLEN TEST POS; ABG MECHANICAL RATE 14; ARTERIAL BLOOD GAS MODE PRVC; ARTERIAL BLOOD HGB O2 SAT 97.7 % (95.0-98.0); ATERIAL BLOOD GAS PEEP 5; CARBOXYHEMOGLOBIN 2.2 % (0.5-1.5); DRAW SITE RR; HHB -0.9 % (0.0-5.0)
[2016-11-21] MEDS: Levothyroxine 175 MCG TAB PO SCH (06:00)
[2016-11-21 06:11] LABS: MEAN CELL VOLUME 92.5 fL (81.0-99.0); MEAN CORPUSCULAR HGB CONC 33.5 g/dL (33.0-37.0); RED CELL DISTRIBUTION WIDTH 19.6 % (11.5-14.5); WHITE BLOOD COUNT 9.3 K/uL (4.8-10.8)
[2016-11-21 06:25] LABS: ALB/GLOB RATIO 0.7 (1.0-2.1); BILIRUBIN,TOTAL 8.4 mg/dL (0.2-1.3); CALCIUM 8.5 mg/dl (8.6-10.4); MAGNESIUM 1.6 mg/dL (1.6-2.3); PHOSPHOROUS 1.7 mg/dL (2.5-4.5); POTASSIUM 3.3 mmol/L (3.6-5.2); TOTAL PROTEIN 5.2 g/dL (6.3-8.3)
[2016-11-21] MEDS: Potassium & Sodium Phosphate PO SCH ×2 (10:08→18:06)
--- NOTE | 2016-11-21 10:44 | CP.PCM.PN ---
Subjective - Date & Time of Evaluation Date of Evaluation: 11/21/16 Time of Evaluation: 10:41 - Subjective Subjective: Awake ; lethargic On trach, vented Hg dropped to 7.7; no overt bleeding noted BP low-but off pressors appears same otherwise Objective - Vital Signs/Intake and Output Vital Signs (last 24 hours): Temp Pulse Resp BP Pulse Ox 98 F 86 25 H 86/34 L 100 11/21/16 08:00 11/21/16 10:30 11/21/16 10:30 11/21/16 10:29 11/21/16 10:30 Intake and Output: 11/21/16 11/21/16 06:59 18:59 Intake Total 760 60 Balance 760 60 - Medications Medications: Current Medications Acetaminophen/Codeine Phosphate (Tylenol/Codeine Elixir) 5 ml PO Q6 PRN PRN Reason: Pain, moderate (4-7) Stop: 11/21/16 22:01 Last Admin: 11/20/16 22:50 Dose: 5 ml Albuterol/Ipratropium (Duoneb 3 Mg/0.5 Mg (3 Ml) Ud) 3 ml INH RQ6 [facility] Last Admin: 11/21/16 07:23 Dose: 3 ml Epoetin Sly (Procrit) 10,000 unit IV TTS [facility] Last Admin: 11/19/16 22:27 Dose: 10,000 unit Norepinephrine Bitartrate 4 mg (/ Sodium Chloride) 254 mls @ 15.24 mls/hr IV .[id number] PRN; Protocol; 4 MCG/MIN PRN Reason: TITRATE PER MD ORDER Last Titration: 11/20/16 16:00 Dose: 0 mcg/min, 0 mls/hr Piperacillin Sod/Tazobactam Sod (Zosyn 2.25 Gm Iv Premix) 2.25 gm in 50 mls @ 100 mls/hr IVPB Q6H [facility] Last Admin: 11/21/16 06:00 Dose: 100 mls/hr Insulin Human Regular (Novolin R) 0 unit SC Q6 REKHA PRN Reason: Protocol Last Admin: 11/21/16 06:27 Dose: Not Given Levothyroxine Sodium (Synthroid) 175 mcg PO DAILY@0630 [facility] Last Admin: 11/21/16 06:00 Dose: 175 mcg Pantoprazole Sodium (Protonix Inj) 40 mg IVP DAILY [facility] Last Admin: 11/21/16 10:08 Dose: 40 mg Potassium Phos/Sodium Phos (Neutra-Phos) 1 pkt PO BID [facility] Stop: 11/21/16 19:01 Last Admin: 11/21/16 10:08 Dose: 1 pkt - Labs Labs: 11/21/16 06:03 11/21/16 06:02 PT 19.5 SECONDS (9.7-12.2) H 10/28/16 08:07 INR 1.7 10/28/16 08:07 APTT 49 SECONDS (21-34) H 10/25/16 16:33 - Constitutional Appears: Cachectic, Chronically Ill - Head Exam Head Exam: ATRAUMATIC, NORMAL INSPECTION - Eye Exam Eye Exam: EOMI, Normal appearance - Respiratory Exam Respiratory Exam: Clear to Ausculation Bilateral, Respiratory Distress - Cardiovascular Exam Cardiovascular Exam: Tachycardia, Irregular Rhythm, REGULAR RHYTHM - GI/Abdominal Exam GI & Abdominal Exam: Soft. absent: Tenderness - Extremities Exam Extremities Exam: Normal Inspection. absent: Tenderness - Neurological Exam Neurological Exam: Altered - Skin Skin Exam: Dry, Warm Assessment and Plan (1) Lower GI bleed Status: Acute (2) Diabetic nephropathy with proteinuria Status: Acute (3) CHF (congestive heart failure) Status: Chronic (4) ESRD (end stage renal disease) on dialysis Status: Chronic - Assessment and Plan (Free Text) Plan: Repeat dialysis MWFS 4K bath Moderate UF On ESAs Consider blood transfusion- as per ICU team
--- NOTE | 2016-11-21 11:56 | CP.CCUPN ---
CCU Subjective - Physician Review Subjective (Free Text): Patient was seen and examined at bedside in the morning. Patient is non- verbal. 11/21/16 14:22 CCU Objective - Vital Signs / Intake & Output Vital Signs (Last 4 hours): Vital Signs Temp Pulse Resp BP Pulse Ox 11/21/16 11:00 93 H 21 100 11/21/16 10:30 86 25 H 100 11/21/16 10:29 73 23 86/34 L 100 11/21/16 10:27 94 H 21 77/32 L 100 11/21/16 10:26 94 H 23 75/35 L 100 11/21/16 10:25 94 H 25 H 74/30 L 100 11/21/16 10:24 94 H 19 78/35 L 100 11/21/16 10:00 96 H 22 100 11/21/16 09:30 95 H 24 100 11/21/16 09:24 96 H 24 82/36 L 100 11/21/16 09:22 96 H 24 75/36 L 100 11/21/16 09:15 96 H 22 79/37 L 100 11/21/16 09:00 80 24 100 11/21/16 08:45 78 26 H 84/34 L 100 11/21/16 08:30 78 26 H 100 11/21/16 08:18 79 20 86/36 L 100 11/21/16 08:17 78 25 H 70/29 L 11/21/16 08:15 78 26 H 72/32 L 100 11/21/16 08:09 79 14 82/33 L 11/21/16 08:00 98 F 83 14 100 Intake and Output (Last 8hrs): Intake & Output 11/20/16 11/21/16 11/21/16 22:59 06:59 14:59 Intake Total 580.6 540 115 Balance 580.6 540 115 Intake: IV 0 Intake, IV Amount 240.6 260 80 Right Distal Port PICC 233 160 80 Right PICC 7.6 100 Tube Feeding 280 280 35 Other 60 Other: # Bowel Movements 1 0 1 - Physical Exam Head: Positive for: Atraumatic Pupils: Positive for: PERRL Extroacular Muscles: Positive for: EOMI Conjunctiva: Positive for: Icteric Mouth: Positive for: Dry Nose (Internal): Positive for: Other (NGT was replaced 11/[address] still [address]) Neck: Positive for: Other (trach in place) Respiratory/Chest: Positive for: Rhonchi. Negative for: Clear to Auscultation, Respiratory Distress, Accessory Muscle Use Cardiovascular: Positive for: Regular Rate and Rhythm, Normal S1, S2. Negative for: Murmurs, Tachycardic, Bradycardic Abdomen: Negative for: Peritoneal Signs, Hernias Rectal: Negative for: Gross Blood Upper Extremity: Positive for: Cyanosis, Temperature Abnormalties, Other (cold fingers, ischemic 3rd digit on left hand ). Negative for: NORMAL PULSES, Neurovascularly Intact, Capillary Refill < 2s Lower Extremity: Positive for: Edema Neurological: Negative for: GCS=15, Speech Normal Skin: Positive for: Cold (bilateral hands), Other (gangrenous fingertips). Negative for: Warm Psychiatric: Positive for: Other (non-verbal ). Negative for: Alert, Oriented x 3, Normal Insight, Normal Concentration - Medications Active Medications: Active Medications Generic Name Dose Route Start Last Admin Trade Name Freq PRN Reason Stop Dose Admin Acetaminophen/Codeine Phosphate 5 ml 11/20/16 22:00 11/20/16 22:50 Tylenol/Codeine Elixir PO 11/21/16 22:01 5 ml Q6 PRN Administration Pain, moderate (4-7) Albuterol/Ipratropium 3 ml 11/12/16 14:00 11/21/16 07:23 Duoneb 3 Mg/0.5 Mg (3 Ml) Ud INH 3 ml RQ6 REKHA Administration Epoetin Sly 10,000 unit 11/12/16 10:00 11/19/16 22:27 Procrit IV 10,000 unit TTS REKHA Administration Norepinephrine Bitartrate 4 mg 254 mls @ 15.24 mls/hr 11/16/16 20:28 16:00 / Sodium Chloride IV 0 mcg/min .[id number] PRN 0 mls/hr TITRATE PER MD ORDER Titration Protocol 4 MCG/MIN Piperacillin Sod/Tazobactam Sod 2.25 gm in 50 mls @ 100 mls/hr 11/17/16 18:00 11/21/16 06:00 Zosyn 2.25 Gm Iv Premix IVPB 100 mls/hr Q6H REKHA Administration Insulin Human Regular 0 unit 11/16/16 12:00 11/21/16 06:27 Novolin R SC Not Given Q6 [facility] Protocol Levothyroxine Sodium 175 mcg 11/18/16 06:30 11/21/16 06:00 Synthroid PO 175 mcg DAILY@0630 REKHA Administration Pantoprazole Sodium 40 mg 11/05/16 11:15 11/21/16 10:08 Protonix Inj IVP 40 mg DAILY REKHA Administration Potassium Phos/Sodium Phos 1 pkt 11/19/16 19:00 11/21/16 10:08 Neutra-Phos PO 11/21/16 19:01 1 pkt BID REKHA Administration - Patient Studies Lab Studies: Microbiology Studies 11/17/16 09:15 Blood Culture - Preliminary Blood-During Dialysis NO GROWTH AFTER 4 DAYS Lab Studies 11/21/16 11/21/16 11/21/16 Range/Units 11:19 06:03 06:02 WBC 9.3 (4.8-10.8) K/uL RBC 2.48 L (3.80-5.20) Mil/uL Hgb 7.7 L (11.0-16.0) g/dL Hct 23.0 L (34.0-47.0) % MCV 92.5 (81.0-99.0) fL MCH 31.0 (27.0-31.0) pg MCHC 33.5 (33.0-37.0) g/dL RDW 19.6 H (11.5-14.5) % Plt Count 40 L D (130-400) K/uL MPV 10.0 (7.2-11.7) fL Puncture Site pCO2 (35-45) mm/Hg pO2 (80-100) mm/Hg HCO3 (21-28) mmol/L ABG pH (7.35-7.45) ABG Total CO2 (22-28) mmol/L ABG O2 Saturation (95-98) % ABG Base Excess (-2.0-3.0) mmol/L ABG Hemoglobin (11.7-17.4) g/dL ABG Carboxyhemoglobin (0.5-1.5) % POC ABG HHb (Measured) (0.0-5.0) % ABG Methemoglobin (0.0-3.0) % [place] Test A-a O2 Difference mm/Hg Respiratory Index Hgb O2 Saturation (95.0-98.0) % Vent Mode Mechanical Rate FiO2 % Tidal Volume PEEP Sodium 132 (132-148) mmol/L Potassium 3.3 L (3.6-5.2) mmol/L Chloride 92 L (98-107) mmol/L Carbon Dioxide 25 (22-30) mmol/L Anion Gap 18 (10-20) BUN 18 H (7-17) mg/dL Creatinine 1.2 (0.7-1.2) MG/DL Est GFR ( Amer) 53 Est GFR (Non-Af Amer) 44 POC Glucose (mg/dL) 109 (65-110) mg/dL Random Glucose 375 H (65-105) mg/dL Calcium 8.5 L (8.6-10.4) mg/dl Phosphorus 1.7 L (2.5-4.5) mg/dL Magnesium 1.6 (1.6-2.3) mg/dL Total Bilirubin 8.4 H (0.2-1.3) mg/dL AST 32 (14-36) U/L ALT 22 (9-52) U/L Alkaline Phosphatase 238 H (38-126) U/L Total Protein 5.2 L (6.3-8.3) g/dL Albumin 2.1 L (3.5-5.0) g/dL Globulin 3.1 (2.2-3.9) gm/dL Albumin/Globulin Ratio 0.7 L (1.0-2.1) 11/21/16 11/21/16 11/21/16 Range/Units 04:47 04:30 04:25 WBC (4.8-10.8) K/uL RBC (3.80-5.20) Mil/uL Hgb (11.0-16.0) g/dL Hct (34.0-47.0) % MCV (81.0-99.0) fL MCH (27.0-31.0) pg MCHC (33.0-37.0) g/dL RDW (11.5-14.5) % Plt Count (130-400) K/uL MPV (7.2-11.7) fL Puncture Site Rr pCO2 32 L (35-45) mm/Hg pO2 205 H (80-100) mm/Hg HCO3 28.0 (21-28) mmol/L ABG pH 7.53 H (7.35-7.45) ABG Total CO2 27.7 (22-28) mmol/L ABG O2 Saturation 100.9 H (95-98) % ABG Base Excess 3.9 H (-2.0-3.0) mmol/L ABG Hemoglobin 8.1 L (11.7-17.4) g/dL ABG Carboxyhemoglobin 2.2 H (0.5-1.5) % POC ABG HHb (Measured) -0.9 L (0.0-5.0) % ABG Methemoglobin 1.0 (0.0-3.0) % [place] Test Pos A-a O2 Difference 254.0 mm/Hg Respiratory Index 1.2 Hgb O2 Saturation 97.7 (95.0-98.0) % Vent Mode Prvc Mechanical Rate 14 FiO2 70.0 % Tidal Volume 350 PEEP 5 Sodium (132-148) mmol/L Potassium (3.6-5.2) mmol/L Chloride (98-107) mmol/L Carbon Dioxide (22-30) mmol/L Anion Gap (10-20) BUN (7-17) mg/dL Creatinine (0.7-1.2) MG/DL Est GFR ( Amer) Est GFR (Non-Af Amer) POC Glucose (mg/dL) 160 H 464 H* (65-110) mg/dL Random Glucose (65-105) mg/dL Calcium (8.6-10.4) mg/dl Phosphorus (2.5-4.5) mg/dL Magnesium (1.6-2.3) mg/dL Total Bilirubin (0.2-1.3) mg/dL AST (14-36) U/L ALT (9-52) U/L Alkaline Phosphatase (38-126) U/L Total Protein (6.3-8.3) g/dL Albumin (3.5-5.0) g/dL Globulin (2.2-3.9) gm/dL Albumin/Globulin Ratio (1.0-2.1) 11/21/16 11/20/16 Range/Units 00:35 17:28 WBC (4.8-10.8) K/uL RBC (3.80-5.20) Mil/uL Hgb (11.0-16.0) g/dL Hct (34.0-47.0) % MCV (81.0-99.0) fL MCH (27.0-31.0) pg MCHC (33.0-37.0) g/dL RDW (11.5-14.5) % Plt Count (130-400) K/uL MPV (7.2-11.7) fL Puncture Site pCO2 (35-45) mm/Hg pO2 (80-100) mm/Hg HCO3 (21-28) mmol/L ABG pH (7.35-7.45) ABG Total CO2 (22-28) mmol/L ABG O2 Saturation (95-98) % ABG Base Excess (-2.0-3.0) mmol/L ABG Hemoglobin (11.7-17.4) g/dL ABG Carboxyhemoglobin (0.5-1.5) % POC ABG HHb (Measured) (0.0-5.0) % ABG Methemoglobin (0.0-3.0) % [place] Test A-a O2 Difference mm/Hg Respiratory Index Hgb O2 Saturation (95.0-98.0) % Vent Mode Mechanical Rate FiO2 % Tidal Volume PEEP Sodium (132-148) mmol/L Potassium (3.6-5.2) mmol/L Chloride (98-107) mmol/L Carbon Dioxide (22-30) mmol/L Anion Gap (10-20) BUN (7-17) mg/dL Creatinine (0.7-1.2) MG/DL Est GFR ( Amer) Est GFR (Non-Af Amer) POC Glucose (mg/dL) 206 H 258 H (65-110) mg/dL Random Glucose (65-105) mg/dL Calcium (8.6-10.4) mg/dl Phosphorus (2.5-4.5) mg/dL Magnesium (1.6-2.3) mg/dL Total Bilirubin (0.2-1.3) mg/dL AST (14-36) U/L ALT (9-52) U/L Alkaline Phosphatase (38-126) U/L Total Protein (6.3-8.3) g/dL Albumin (3.5-5.0) g/dL Globulin (2.2-3.9) gm/dL Albumin/Globulin Ratio (1.0-2.1) Laboratory Results - last 24 hr 11/20/16 11/21/16 11/21/16 17:28 00:35 04:25 WBC RBC Hgb Hct MCV MCH MCHC RDW Plt Count MPV Puncture Site Rr pCO2 32 L pO2 205 H HCO3 28.0 ABG pH 7.53 H ABG Total CO2 27.7 ABG O2 Saturation 100.9 H ABG Base Excess 3.9 H ABG Hemoglobin 8.1 L ABG Carboxyhemoglobin 2.2 H POC ABG HHb (Measured) -0.9 L ABG Methemoglobin 1.0 [place] Test Pos A-a O2 Difference 254.0 Respiratory Index 1.2 Hgb O2 Saturation 97.7 Vent Mode Prvc Mechanical Rate 14 FiO2 70.0 Tidal Volume 350 PEEP 5 Sodium Potassium Chloride Carbon Dioxide Anion Gap BUN Creatinine Est GFR ( Amer) Est GFR (Non-Af Amer) POC Glucose (mg/dL) 258 H 206 H Random Glucose Calcium Phosphorus Magnesium Total Bilirubin AST ALT Alkaline Phosphatase Total Protein Albumin Globulin Albumin/Globulin Ratio 11/21/16 11/21/16 11/21/16 04:30 04:47 06:02 WBC RBC Hgb Hct MCV MCH MCHC RDW Plt Count MPV Puncture Site pCO2 pO2 HCO3 ABG pH ABG Total CO2 ABG O2 Saturation ABG Base Excess ABG Hemoglobin ABG Carboxyhemoglobin POC ABG HHb (Measured) ABG Methemoglobin [place] Test A-a O2 Difference Respiratory Index Hgb O2 Saturation Vent Mode Mechanical Rate FiO2 Tidal Volume PEEP Sodium 132 Potassium 3.3 L Chloride 92 L Carbon Dioxide 25 Anion Gap 18 BUN 18 H Creatinine 1.2 Est GFR ( Amer) 53 Est GFR (Non-Af Amer) 44 POC Glucose (mg/dL) 464 H* 160 H Random Glucose 375 H Calcium 8.5 L Phosphorus 1.7 L Magnesium 1.6 Total Bilirubin 8.4 H AST 32 ALT 22 Alkaline Phosphatase 238 H Total Protein 5.2 L Albumin 2.1 L Globulin 3.1 Albumin/Globulin Ratio 0.7 L 11/21/16 11/21/16 06:03 11:19 WBC 9.3 RBC 2.48 L Hgb 7.7 L Hct 23.0 L MCV 92.5 MCH 31.0 MCHC 33.5 RDW 19.6 H Plt Count 40 L D MPV 10.0 Puncture Site pCO2 pO2 HCO3 ABG pH ABG Total CO2 ABG O2 Saturation ABG Base Excess ABG Hemoglobin ABG Carboxyhemoglobin POC ABG HHb (Measured) ABG Methemoglobin [place] Test A-a O2 Difference Respiratory Index Hgb O2 Saturation Vent Mode Mechanical Rate FiO2 Tidal Volume PEEP Sodium Potassium Chloride Carbon Dioxide Anion Gap BUN Creatinine Est GFR ( Amer) Est GFR (Non-Af Amer) POC Glucose (mg/dL) 109 Random Glucose Calcium Phosphorus Magnesium Total Bilirubin AST ALT Alkaline Phosphatase Total Protein Albumin Globulin Albumin/Globulin Ratio Fingerstick Blood Sugar Results: 160 Review of Systems - Review of Systems Systems not reviewed;Unavailable: Intubated Critical Care Progress Note - Vent Settings TIDAL VOLUME:: 350 RESP RATE:: 21 FIO2:: 50 PEEP:: 5 - Nutrition Nutrition: Nutrition Category Date Time Status NPO Diet [DIET] Diets 11/17/16 Breakfast Active Assessment/Plan - Assessment and Plan (Free Text) Assessment: 76 female patient admitted for GI bleed; s/p flexible sigmoidoscopy and multiple transfusions. Patient was transferred from the medical floor to the ICU because patient was noted to have a hypotensive state, bradycardia and mucus secretions. Neuro: - GCS 9T - at baseline likely secondary to metabolic encephalopathy - Patient in non-verbal Pulm: - Chronic Respiratory failure - Intubated CV: - Septic Shock - BP mildly improved - systolic now 100-110s - Norepinephrine is currently stopped 11/09 - Dr Long on board. Pt high risk for any procedure but can proceed if clinical indicated - Left hand with ischemic necrosis - consult placed for vascular surgery, as per Dr Buck - likely nothing to do Heme: - will continue to monitor H/H and for rectal bleed Renal: - ESRD - HD as per Dr Mcfarland - Dr Trent on consult --> help appreciated - Dialysis scheduled for today Endo: -Insulin sliding scale - patient's daughter refuses insulin GI: Ischemic colitis with hemorrhage, not a candidate for intervention as this would be medically futile. - NGT placed 11/17 - Tube Feeding - f/u PEG tube placement -IR Consult: Dr. Walker --> help appreciated - Protonix for GI bleed - GI Consult: Dr. Young --> help appreciated ID: - Septic Shock - Meropenem was discontinued 11/07 (patient received a 13 day course) - Trach - sputum culture: Gram + Cocci - Zosyn DVT proph - SCDs, no anti-coagulation due to acute bleed GI proph - Protonix 40mg IVP daily Care Management Consult --> help appreciated - Nursing Home Care Code status - Full
--- NOTE | 2016-11-21 12:16 | PCM.IRP ---
History of Present Illness - History of Present Illness History of Present Illness: IR consulted gastrostomy tube placement. Plan on placing a G-tube once Pt is hemodynically stable and coagulapathy is corrected. Pt blood pressures is in the 80's and platelets are currently 40. Objective - Vital Signs/Intake and Output Vital Signs (last 24 hours): Vital Signs - 24 hr 11/20/16 11/20/16 11/20/16 12:30 12:45 12:50 Temperature 98.1 F 97.9 F Pulse Rate 99 H 92 H 96 H Respiratory 12 15 15 Rate Blood Pressure 89/39 L 89/39 L 87/37 L O2 Sat by Pulse 100 100 Oximetry 11/20/16 11/20/16 11/20/16 13:00 13:05 13:10 Temperature 98 F Pulse Rate 92 H 93 H 99 H Respiratory 14 15 15 Rate Blood Pressure 98/35 L 89/35 L O2 Sat by Pulse 100 100 Oximetry 11/20/16 11/20/16 11/20/16 13:15 13:30 13:46 Temperature Pulse Rate 92 H 93 H 109 H Respiratory 18 17 15 Rate Blood Pressure 89/39 L 92/41 L O2 Sat by Pulse 100 100 100 Oximetry 11/20/16 11/20/16 11/20/16 14:00 14:15 14:30 Temperature 97.9 F Pulse Rate 96 H 96 H 96 H Respiratory 20 22 23 Rate Blood Pressure 87/37 L 93/42 L O2 Sat by Pulse 100 100 100 Oximetry 11/20/16 11/20/16 11/20/16 14:52 15:00 15:14 Temperature Pulse Rate 88 101 H 91 H Respiratory 14 20 25 H Rate Blood Pressure 93/42 L O2 Sat by Pulse 100 100 100 Oximetry 11/20/16 11/20/16 11/20/16 15:15 15:22 15:30 Temperature Pulse Rate 81 92 H 91 H Respiratory 14 23 15 Rate Blood Pressure 104/44 L 95/45 L O2 Sat by Pulse 100 100 100 Oximetry 11/20/16 11/20/16 11/20/16 15:45 16:00 16:15 Temperature 98.2 F Pulse Rate 91 H 90 90 Respiratory 11 L 11 L 11 L Rate Blood Pressure 99/48 L 104/47 L O2 Sat by Pulse 100 100 100 Oximetry 11/20/16 11/20/16 11/20/16 16:30 16:45 17:00 Temperature Pulse Rate 88 87 85 Respiratory 11 L 13 10 L Rate Blood Pressure 109/48 L O2 Sat by Pulse 100 100 100 Oximetry 11/20/16 11/20/16 11/20/16 17:15 17:30 17:45 Temperature Pulse Rate 99 H 88 88 Respiratory 12 12 9 L Rate Blood Pressure 112/55 L 115/59 L O2 Sat by Pulse 100 100 100 Oximetry 11/20/16 11/20/16 11/20/16 18:00 18:04 18:07 Temperature Pulse Rate 89 92 H 91 H Respiratory 14 15 13 Rate Blood Pressure 99/39 L 92/39 L O2 Sat by Pulse 100 100 100 Oximetry 11/20/16 11/20/16 11/20/16 18:15 18:16 18:30 Temperature Pulse Rate 93 H 93 H 92 H Respiratory 14 17 17 Rate Blood Pressure 95/39 L 93/39 L O2 Sat by Pulse 100 100 100 Oximetry 11/20/16 11/20/16 11/20/16 18:33 18:45 19:00 Temperature Pulse Rate 92 H 89 86 Respiratory 16 16 21 Rate Blood Pressure 87/39 L 89/36 L O2 Sat by Pulse 100 100 100 Oximetry 11/20/16 11/20/16 11/20/16 19:15 19:30 19:45 Temperature Pulse Rate 80 83 74 Respiratory 13 15 12 Rate Blood Pressure 85/31 L 79/30 L O2 Sat by Pulse 100 100 Oximetry 11/20/16 11/20/16 11/20/16 20:00 20:15 20:30 Temperature 98.7 F Pulse Rate 83 85 100 H Respiratory 13 19 26 H Rate Blood Pressure 87/33 L O2 Sat by Pulse 100 100 100 Oximetry 11/20/16 11/20/16 11/20/16 20:45 21:00 21:15 Temperature Pulse Rate 101 H 100 H 100 H Respiratory 22 21 20 Rate Blood Pressure 88/32 L 85/41 L O2 Sat by Pulse 100 100 100 Oximetry 11/20/16 11/20/16 11/20/16 21:30 21:45 22:00 Temperature Pulse Rate 97 H 100 H 88 Respiratory 22 21 17 Rate Blood Pressure 95/40 L O2 Sat by Pulse 100 100 100 Oximetry 11/20/16 11/20/16 11/20/16 22:15 22:30 22:45 Temperature Pulse Rate 78 99 H 89 Respiratory 19 17 22 Rate Blood Pressure 89/34 L 86/40 L O2 Sat by Pulse 98 100 100 Oximetry 11/20/16 11/20/16 11/20/16 23:00 23:15 23:30 Temperature Pulse Rate 92 H 89 102 H Respiratory 24 22 26 H Rate Blood Pressure 89/33 L O2 Sat by Pulse 100 100 100 Oximetry 11/20/16 11/20/16 11/21/16 23:46 23:58 00:00 Temperature 99.6 F Pulse Rate 88 87 102 H Respiratory 23 17 18 Rate Blood Pressure 88/34 L O2 Sat by Pulse 100 100 100 Oximetry 11/21/16 11/21/16 11/21/16 00:15 00:30 00:45 Temperature Pulse Rate 87 84 99 H Respiratory 18 25 H 26 H Rate Blood Pressure 81/33 L 89/39 L O2 Sat by Pulse 100 100 Oximetry 11/21/16 11/21/16 11/21/16 01:00 01:15 01:30 Temperature Pulse Rate 97 H 97 H 81 Respiratory 19 20 13 Rate Blood Pressure 91/48 L O2 Sat by Pulse 100 100 100 Oximetry 11/21/16 11/21/16 11/21/16 01:45 02:00 02:16 Temperature Pulse Rate 97 H 79 80 Respiratory 24 19 19 Rate Blood Pressure 82/40 L 90/35 L O2 Sat by Pulse 100 100 100 Oximetry 11/21/16 11/21/16 11/21/16 02:30 02:45 03:00 Temperature Pulse Rate 97 H 82 96 H Respiratory 21 22 19 Rate Blood Pressure 91/36 L O2 Sat by Pulse 100 100 100 Oximetry 11/21/16 11/21/16 11/21/16 03:15 03:30 03:45 Temperature Pulse Rate 98 H 90 79 Respiratory 19 23 17 Rate Blood Pressure 84/38 L 83/31 L O2 Sat by Pulse 100 100 100 Oximetry 11/21/16 11/21/16 11/21/16 04:00 04:16 04:30 Temperature 99.1 F Pulse Rate 82 97 H 98 H Respiratory 21 15 18 Rate Blood Pressure 86/37 L O2 Sat by Pulse 100 100 100 Oximetry 11/21/16 11/21/16 11/21/16 04:45 05:00 05:15 Temperature Pulse Rate 97 H 98 H 97 H Respiratory 25 H 25 H 32 H Rate Blood Pressure 82/36 L 87/47 L O2 Sat by Pulse 99 100 100 Oximetry 11/21/16 11/21/16 11/21/16 05:30 05:45 06:00 Temperature Pulse Rate 95 H 75 73 Respiratory 23 25 H 14 Rate Blood Pressure 86/39 L O2 Sat by Pulse 100 100 100 Oximetry 11/21/16 11/21/16 11/21/16 06:15 06:30 06:45 Temperature Pulse Rate 95 H 95 H 94 H Respiratory 31 H 20 30 H Rate Blood Pressure 91/43 L 90/42 L O2 Sat by Pulse 100 100 100 Oximetry 11/21/16 11/21/16 11/21/16 07:00 07:15 07:30 Temperature Pulse Rate 95 H 94 H 78 Respiratory 26 H 20 18 Rate Blood Pressure 86/46 L O2 Sat by Pulse 100 100 100 Oximetry 11/21/16 11/21/16 11/21/16 07:45 08:00 08:09 Temperature 98 F Pulse Rate 82 83 79 Respiratory 13 14 14 Rate Blood Pressure 81/38 L 82/33 L O2 Sat by Pulse 100 100 Oximetry 11/21/16 11/21/16 11/21/16 08:15 08:17 08:18 Temperature Pulse Rate 78 78 79 Respiratory 26 H 25 H 20 Rate Blood Pressure 72/32 L 70/29 L 86/36 L O2 Sat by Pulse 100 100 Oximetry 11/21/16 11/21/16 11/21/16 08:30 08:45 09:00 Temperature Pulse Rate 78 78 80 Respiratory 26 H 26 H 24 Rate Blood Pressure 84/34 L O2 Sat by Pulse 100 100 100 Oximetry 11/21/16 11/21/16 11/21/16 09:15 09:22 09:24 Temperature Pulse Rate 96 H 96 H 96 H Respiratory 22 24 24 Rate Blood Pressure 79/37 L 75/36 L 82/36 L O2 Sat by Pulse 100 100 100 Oximetry 11/21/16 11/21/16 11/21/16 09:30 10:00 10:24 Temperature Pulse Rate 95 H 96 H 94 H Respiratory 24 22 19 Rate Blood Pressure 78/35 L O2 Sat by Pulse 100 100 100 Oximetry 11/21/16 11/21/16 11/21/16 10:25 10:26 10:27 Temperature Pulse Rate 94 H 94 H 94 H Respiratory 25 H 23 21 Rate Blood Pressure 74/30 L 75/35 L 77/32 L O2 Sat by Pulse 100 100 100 Oximetry 11/21/16 11/21/16 11/21/16 10:29 10:30 11:00 Temperature Pulse Rate 73 86 93 H Respiratory 23 25 H 21 Rate Blood Pressure 86/34 L O2 Sat by Pulse 100 100 100 Oximetry Intake and Output (last 12 hours): Intake & Output 11/20/16 11/21/16 11/21/16 18:59 06:59 18:59 Intake Total 1378.5 760 115 Balance 1378.5 760 115 Intake: IV 0 Intake, IV Amount 545.5 340 80 Right Distal Port PICC 493 240 80 Right PICC 52.5 100 Tube Feeding 420 420 35 Blood Product 293 Apheresis Plts Acda Lr 293 1st Con Unit [id number] Other 120 Other: # Bowel Movements 1 0 1 - Medications Medications: Current Medications Acetaminophen/Codeine Phosphate (Tylenol/Codeine Elixir) 5 ml PO Q6 PRN PRN Reason: Pain, moderate (4-7) Stop: 11/21/16 22:01 Last Admin: 11/20/16 22:50 Dose: 5 ml Albuterol/Ipratropium (Duoneb 3 Mg/0.5 Mg (3 Ml) Ud) 3 ml INH RQ6 REKHA Last Admin: 11/21/16 07:23 Dose: 3 ml Epoetin Sly (Procrit) 10,[address] [facility] Last Admin: 11/19/16 22:27 Dose: 10,000 unit Norepinephrine Bitartrate 4 mg (/ Sodium Chloride) 254 mls @ 15.24 mls/hr IV .[id number] PRN; Protocol; 4 MCG/MIN PRN Reason: TITRATE PER MD ORDER Last Titration: 11/20/16 16:00 Dose: 0 mcg/min, 0 mls/hr Piperacillin Sod/Tazobactam Sod (Zosyn 2.25 Gm Iv Premix) 2.25 gm in 50 mls @ 100 mls/hr IVPB Q6H [facility] Last Admin: 11/21/16 06:00 Dose: 100 mls/hr Insulin Human Regular (Novolin R) 0 unit SC Q6 REKHA PRN Reason: Protocol Last Admin: 11/21/16 06:27 Dose: Not Given Levothyroxine Sodium (Synthroid) 175 mcg PO DAILY@0630 [facility] Last Admin: 11/21/16 06:00 Dose: 175 mcg Pantoprazole Sodium (Protonix Inj) [address] [facility] Last Admin: 11/21/16 10:08 Dose: 40 mg Potassium Phos/Sodium Phos (Neutra-Phos) 1 pkt PO BID REKHA Stop: 11/21/16 19:01 Last Admin: 11/21/16 10:08 Dose: 1 pkt - Labs Labs (last 24 hours): Laboratory Results - last 24 hr 11/19/16 11/20/16 11/21/16 08:30 17:28 00:35 WBC RBC Hgb Hct MCV MCH MCHC RDW Plt Count MPV Puncture Site pCO2 pO2 HCO3 ABG pH ABG Total CO2 ABG O2 Saturation ABG Base Excess ABG Hemoglobin ABG Carboxyhemoglobin POC ABG HHb (Measured) ABG Methemoglobin [place] Test A-a O2 Difference Respiratory Index Hgb O2 Saturation Vent Mode Mechanical Rate FiO2 Tidal Volume PEEP Sodium Potassium Chloride Carbon Dioxide Anion Gap BUN Creatinine Est GFR ( Amer) Est GFR (Non-Af Amer) POC Glucose (mg/dL) 258 H 206 H Random Glucose Calcium Phosphorus Magnesium Total Bilirubin AST ALT Alkaline Phosphatase Total Protein Albumin Globulin Albumin/Globulin Ratio Blood Type B POSITIVE Antibody Screen Negative 11/21/16 11/21/16 11/21/16 04:25 04:30 04:47 WBC RBC Hgb Hct MCV MCH MCHC RDW Plt Count MPV Puncture Site Rr pCO2 32 L pO2 205 H HCO3 28.0 ABG pH 7.53 H ABG Total CO2 27.7 ABG O2 Saturation 100.9 H ABG Base Excess 3.9 H ABG Hemoglobin 8.1 L ABG Carboxyhemoglobin 2.2 H POC ABG HHb (Measured) -0.9 L ABG Methemoglobin 1.0 [place] Test Pos A-a O2 Difference 254.0 Respiratory Index 1.2 Hgb O2 Saturation 97.7 Vent Mode Prvc Mechanical Rate 14 FiO2 70.0 Tidal Volume 350 PEEP 5 Sodium Potassium Chloride Carbon Dioxide Anion Gap BUN Creatinine Est GFR ( Amer) Est GFR (Non-Af Amer) POC Glucose (mg/dL) 464 H* 160 H Random Glucose Calcium Phosphorus Magnesium Total Bilirubin AST ALT Alkaline Phosphatase Total Protein Albumin Globulin Albumin/Globulin Ratio Blood Type Antibody Screen 11/21/16 11/21/16 11/21/16 06:02 06:03 11:19 WBC 9.3 RBC 2.48 L Hgb 7.7 L Hct 23.0 L MCV 92.5 MCH 31.0 MCHC 33.5 RDW 19.6 H Plt Count 40 L D MPV 10.0 Puncture Site pCO2 pO2 HCO3 ABG pH ABG Total CO2 ABG O2 Saturation ABG Base Excess ABG Hemoglobin ABG Carboxyhemoglobin POC ABG HHb (Measured) ABG Methemoglobin [place] Test A-a O2 Difference Respiratory Index Hgb O2 Saturation Vent Mode Mechanical Rate FiO2 Tidal Volume PEEP Sodium 132 Potassium 3.3 L Chloride 92 L Carbon Dioxide 25 Anion Gap 18 BUN 18 H Creatinine 1.2 Est GFR ( Amer) 53 Est GFR (Non-Af Amer) 44 POC Glucose (mg/dL) 109 Random Glucose 375 H Calcium 8.5 L Phosphorus 1.7 L Magnesium 1.6 Total Bilirubin 8.4 H AST 32 ALT 22 Alkaline Phosphatase 238 H Total Protein 5.2 L Albumin 2.1 L Globulin 3.1 Albumin/Globulin Ratio 0.7 L Blood Type Antibody Screen
[2016-11-21] MEDS ORDERED: Albumin Human 25% (12.5 gm/50 ml) IV ONE ×3 (15:11→17:15)
[2016-11-21] MEDS: Epoetin Alfa 10,000 unit/ml Dialysis IV SCH (18:56)
--- NOTE | 2016-11-21 20:44 | CP.PCM.PN ---
Subjective - Date & Time of Evaluation Date of Evaluation: 11/21/16 Time of Evaluation: 15:00 - Subjective Subjective: Patient seen and evaluated On hemodialysis Clinical condition remains poor Guarded prognosis Objective - Vital Signs/Intake and Output Vital Signs (last 24 hours): Temp Pulse Resp BP Pulse Ox 98 F 89 24 98/45 L 100 11/21/16 16:15 11/21/16 19:00 11/21/16 19:00 11/21/16 18:45 11/21/16 19:00 Intake and Output: 11/21/16 11/22/16 18:59 06:59 Intake Total 1085 55 Output Total 1000 Balance 1085 -945 - Medications Medications: Current Medications Acetaminophen/Codeine Phosphate (Tylenol/Codeine Elixir) 5 ml PO Q6 PRN PRN Reason: Pain, moderate (4-7) Stop: 11/21/16 22:01 Last Admin: 11/20/16 22:50 Dose: 5 ml Albuterol/Ipratropium (Duoneb 3 Mg/0.5 Mg (3 Ml) Ud) 3 ml INH RQ6 [facility] Last Admin: 11/21/16 20:29 Dose: 3 ml Epoetin Sly (Procrit) 10,000 unit IV MWF [facility] Last Admin: 11/21/16 18:56 Dose: 10,000 unit Norepinephrine Bitartrate 4 mg (/ Sodium Chloride) 254 mls @ 15.24 mls/hr IV .[id number] PRN; Protocol; 4 MCG/MIN PRN Reason: TITRATE PER MD ORDER Last Titration: 11/20/16 16:00 Dose: 0 mcg/min, 0 mls/hr Piperacillin Sod/Tazobactam Sod (Zosyn 2.25 Gm Iv Premix) 2.25 gm in 50 mls @ 100 mls/hr IVPB Q6H [facility] Last Admin: 11/21/16 18:15 Dose: 100 mls/hr Insulin Human Regular (Novolin R) 0 unit SC Q6 [facility] PRN Reason: Protocol Last Admin: 11/21/16 17:41 Dose: Not Given Levothyroxine Sodium (Synthroid) 175 mcg PO DAILY@0630 [facility] Last Admin: 11/21/16 06:00 Dose: 175 mcg Pantoprazole Sodium (Protonix Inj) 40 mg IVP DAILY [facility] Last Admin: 11/21/16 10:08 Dose: 40 mg - Labs Labs: 11/21/16 06:03 11/21/16 06:02 PT 19.5 SECONDS (9.7-12.2) H 10/28/16 08:07 INR 1.7 10/28/16 08:07 APTT 49 SECONDS (21-34) H 10/25/16 16:33
[2016-11-22] MEDS: Albuterol-Ipratrop 3 mg / 0.5 (3 ml) UD INH SCH ×4 (01:17→19:27)
[2016-11-22] MEDS: Levothyroxine 175 MCG TAB PO SCH (06:00)
[2016-11-22] MEDS: Piperacill/Tazo 2.25gm in Dex 2.25 GM/50 ML BAG IVPB SCH ×3 (06:00→17:59)
[2016-11-22] MEDS: (Novolin R) Insulin Human Regular 100 units/ml vial SC SCH ×3 (06:00→17:58)
[2016-11-22 06:05] LABS: BASO # 0.1 K/uL (0.0-0.2); BASO % 1.4 % (0.0-2.0); EOS # 0.1 K/uL (0.0-0.7); EOS % 0.8 % (0.0-4.0); HEMATOCRIT 28.2 % (34.0-47.0); LYMPH # 1.1 K/uL (1.0-4.3); MEAN CELL VOLUME 91.5 fL (81.0-99.0); MEAN CORPUSCULAR HEMOGLOBIN 31.2 pg (27.0-31.0); MEAN CORPUSCULAR HGB CONC 34.1 g/dL (33.0-37.0); MEAN PLATELET VOLUME 10.5 fL (7.2-11.7); MONO # 1.3 K/uL (0.0-0.8); MONO % 11.7 % (0.0-10.0); NRBC % 0.4 % (0.0-2.0); RED CELL DISTRIBUTION WIDTH 17.2 % (11.5-14.5); WHITE BLOOD COUNT 10.9 K/uL (4.8-10.8)
[2016-11-22 06:14] LABS: CHLORIDE 97 mmol/L (98-107)
[2016-11-22 06:15] LABS: POTASSIUM 3.4 mmol/L (3.6-5.2); SODIUM 140 mmol/L (132-148)
[2016-11-22 06:17] LABS: ALB/GLOB RATIO 0.6 (1.0-2.1); ALKALINE PHOSPHATASE 322 U/L (38-126); AST/SGOT 45 U/L (14-36); BILIRUBIN,TOTAL 11.7 mg/dL (0.2-1.3); BLOOD UREA NITROGEN 12 mg/dL (7-17); CARBON DIOXIDE 26 mmol/L (22-30); GFR AFRICAN-AMERICAN > 60; TOTAL PROTEIN 6.4 g/dL (6.3-8.3)
[2016-11-22 06:18] LABS: ALT/SGPT 25 U/L (9-52); CALCIUM 9.3 mg/dl (8.6-10.4); GLUCOSE,RANDOM 104 mg/dL (65-105); MAGNESIUM 1.6 mg/dL (1.6-2.3); PHOSPHOROUS 1.9 mg/dL (2.5-4.5)
--- NOTE | 2016-11-22 12:49 | CP.PCM.PN ---
Subjective - Date & Time of Evaluation Date of Evaluation: 11/22/16 Time of Evaluation: 12:48 - Subjective Subjective: poorly responsive trach-vent s/p hd yesterday hypotensive. off pressors non verbal Objective - Vital Signs/Intake and Output Vital Signs (last 24 hours): Temp Pulse Resp BP Pulse Ox 98.6 F 105 H 19 98/40 L 100 11/22/16 12:00 11/22/16 12:34 11/22/16 12:34 11/22/16 12:34 11/22/16 12:34 Intake and Output: 11/22/16 11/22/16 06:59 18:59 Intake Total 744.2 390.8 Output Total 1000 Balance -255.8 390.8 - Medications Medications: Current Medications Albuterol/Ipratropium (Duoneb 3 Mg/0.5 Mg (3 Ml) Ud) 3 ml INH RQ6 [facility] Last Admin: 11/22/16 07:41 Dose: 3 ml Epoetin Sly (Procrit) 10,000 unit IV MWF [facility] Last Admin: 11/21/16 18:56 Dose: 10,000 unit Norepinephrine Bitartrate 4 mg (/ Sodium Chloride) 254 mls @ 15.24 mls/hr IV .[id number] PRN; Protocol; 4 MCG/MIN PRN Reason: TITRATE PER MD ORDER Last Admin: 11/22/16 08:53 Dose: 1 mcg/min, 3.81 mls/hr Piperacillin Sod/Tazobactam Sod (Zosyn 2.25 Gm Iv Premix) 2.25 gm in 50 mls @ 100 mls/hr IVPB Q6H [facility] Last Admin: 11/22/16 12:43 Dose: 100 mls/hr Insulin Human Regular (Novolin R) 0 unit SC Q6 [facility] PRN Reason: Protocol Last Admin: 11/22/16 12:41 Dose: Not Given Levothyroxine Sodium (Synthroid) 175 mcg PO DAILY@0630 [facility] Last Admin: 11/22/16 06:00 Dose: 175 mcg Pantoprazole Sodium (Protonix Inj) 40 mg IVP DAILY [facility] Last Admin: 11/22/16 10:35 Dose: 40 mg - Labs Labs: 11/22/16 05:59 11/22/16 05:59 PT 19.5 SECONDS (9.7-12.2) H 10/28/16 08:07 INR 1.7 10/28/16 08:07 APTT 49 SECONDS (21-34) H 10/25/16 16:33 - Constitutional Appears: Non-toxic, No Acute Distress, Confused, Cachectic, Chronically Ill - Head Exam Head Exam: NORMAL INSPECTION - Eye Exam Eye Exam: Normal appearance - ENT Exam ENT Exam: Mucous Membranes Dry - Neck Exam Additional comments: trach-vent - Respiratory Exam Respiratory Exam: Decreased Breath Sounds Additional comments: mechanical vent sounds - Cardiovascular Exam Cardiovascular Exam: REGULAR RHYTHM - GI/Abdominal Exam GI & Abdominal Exam: Soft, Hypoactive Bowel Sounds - Extremities Exam Extremities Exam: Normal Inspection Assessment and Plan (1) Lower GI bleed Status: Acute (2) Diabetes mellitus Status: Acute (3) CHF (congestive heart failure) Status: Chronic (4) ESRD (end stage renal disease) on dialysis Status: Chronic - Assessment and Plan (Free Text) Assessment: maintain hd w/ uf as tolerated platelet transfusion per primary team very poor prognosis
[2016-11-22] MEDS ORDERED: HYDROmorphone 0.5 mg/0.5 ml ISec IVP PRN (14:57)
--- NOTE | 2016-11-22 15:20 | CP.CCUPN ---
<JasonMonica [email or web address] - Last Filed: 11/22/16 15:48> CCU Subjective - Physician Review Subjective (Free Text): Patient was seen and examined at bedside in the morning. Patient is non- verbal. 11/22/16 15:17 CCU Objective - Vital Signs / Intake & Output Vital Signs (Last 4 hours): Vital Signs Temp Pulse Resp BP Pulse Ox 11/22/16 12:34 105 H 19 98/40 L 100 11/22/16 12:30 104 H 21 100 11/22/16 12:19 102 H 23 94/37 L 100 11/22/16 12:04 101 H 13 95/35 L 100 11/22/16 12:00 98.6 F 102 H 14 100 11/22/16 11:49 102 H 19 88/40 L 100 11/22/16 11:34 102 H 19 83/36 L 100 11/22/16 11:30 104 H 17 100 11/22/16 11:19 79 12 80/40 L 100 Intake and Output (Last 8hrs): Intake & Output 11/22/16 11/22/16 11/22/16 06:59 14:59 22:59 Intake Total 520.4 390.8 Balance 520.4 390.8 Intake: IV 38 Intake, IV Amount 240.4 142.8 Right Distal Port PICC 210 120 Right PICC 30.4 22.8 Tube Feeding 280 210 Other: # Bowel Movements 0 0 - Physical Exam Head: Positive for: Atraumatic Conjunctiva: Positive for: Icteric Mouth: Positive for: Dry Nose (Internal): Positive for: Other (NGT was replaced 11/[address] still in [address]) Neck: Positive for: Other (trach in place) Respiratory/Chest: Positive for: Rhonchi. Negative for: Clear to Auscultation, Respiratory Distress, Accessory Muscle Use Cardiovascular: Positive for: Regular Rate and Rhythm, Normal S1, S2. Negative for: Murmurs, Tachycardic, Bradycardic Abdomen: Positive for: Peritoneal Signs, Other (+bowel sounds). Negative for: Distention, Hernias Rectal: Positive for: Gross Blood Upper Extremity: Positive for: Cyanosis, Other (cold fingers, ischemic 2-4 digits on left hand ). Negative for: NORMAL PULSES, Neurovascularly Intact, Capillary Refill < 2s Lower Extremity: Positive for: Edema. Negative for: NORMAL PULSES Neurological: Negative for: GCS=15, Speech Normal Skin: Positive for: Cold (bilateral hands), Other (gangrenous fingertips). Negative for: Warm Psychiatric: Positive for: Other (non-verbal ). Negative for: Alert, Oriented x 3, Normal Insight, Normal Concentration - Medications Active Medications: Active Medications Generic Name Dose Route Start Last Admin Trade Name Freq PRN Reason Stop Dose Admin Albuterol/Ipratropium 3 ml 11/12/16 14:00 11/22/16 13:15 Duoneb 3 Mg/0.5 Mg (3 Ml) Ud INH 3 ml RQ6 [facility] Administration Epoetin Sly 10,000 unit 11/21/16 18:30 11/21/16 18:56 Procrit IV 10,000 unit MWF [facility] Administration Hydromorphone HCl 0.5 mg 11/22/16 14:57 Dilaudid IVP Q6H PRN Pain, severe (8-10) Norepinephrine Bitartrate 4 mg 254 mls @ 15.24 mls/hr 11/16/16 20:28 08:53 / Sodium Chloride IV 1 mcg/min .[id number] PRN 3.81 mls/hr TITRATE PER MD ORDER Administration Protocol 4 MCG/MIN Piperacillin Sod/Tazobactam Sod 2.25 gm in 50 mls @ 100 mls/hr 11/17/16 18:00 11/22/16 12:43 Zosyn 2.25 Gm Iv Premix IVPB 100 mls/hr Q6H [facility] Administration Insulin Human Regular 0 unit 11/16/16 12:00 11/22/16 12:41 Novolin R SC Not Given Q6 [facility] Protocol Levothyroxine Sodium 175 mcg 11/18/16 06:30 11/22/16 06:00 Synthroid PO 175 mcg DAILY@0630 [facility] Administration Pantoprazole Sodium 40 mg 11/05/16 11:15 11/22/16 10:35 Protonix Inj IVP 40 mg DAILY [facility] Administration - Patient Studies Lab Studies: Microbiology Studies 11/17/16 09:15 Blood Culture - Final Blood-During Dialysis NO GROWTH AFTER 5 DAYS Gram Stain - Final TEST NOT PERFORMED Lab Studies 11/22/16 11/22/16 11/22/16 Range/Units 11:29 05:59 05:59 WBC 10.9 H (4.8-10.8) K/uL RBC 3.08 L (3.80-5.20) Mil/uL Hgb 9.6 L (11.0-16.0) g/dL Hct 28.2 L (34.0-47.0) % MCV 91.5 (81.0-99.0) fL MCH 31.2 H (27.0-31.0) pg MCHC 34.1 (33.0-37.0) g/dL RDW 17.2 H (11.5-14.5) % Plt Count 26 L* D (130-400) K/uL MPV 10.5 (7.2-11.7) fL Neut % (Auto) 76.1 H (50.0-75.0) % Lymph % (Auto) 10.0 L (20.0-40.0) % [place] % (Auto) 11.7 H (0.0-10.0) % Eos % (Auto) 0.8 (0.0-4.0) % Baso % (Auto) 1.4 (0.0-2.0) % Neut # 8.3 H (1.8-7.0) K/uL Lymph # 1.1 (1.0-4.3) K/uL [place] # 1.3 H (0.0-0.8) K/uL Eos # 0.1 (0.0-0.7) K/uL Baso # 0.1 (0.0-0.2) K/uL Differential Comment Sodium 140 (132-148) mmol/L Potassium 3.4 L (3.6-5.2) mmol/L Chloride 97 L (98-107) mmol/L Carbon Dioxide 26 (22-30) mmol/L Anion Gap 20 (10-20) BUN 12 (7-17) mg/dL Creatinine 1.0 (0.7-1.2) MG/DL Est GFR ( Amer) > 60 Est GFR (Non-Af Amer) 54 POC Glucose (mg/dL) 152 H (65-110) mg/dL Random Glucose 104 (65-105) mg/dL Calcium 9.3 (8.6-10.4) mg/dl Phosphorus 1.9 L (2.5-4.5) mg/dL Magnesium 1.6 (1.6-2.3) mg/dL Total Bilirubin 11.7 H (0.2-1.3) mg/dL AST 45 H D (14-36) U/L ALT 25 (9-52) U/L Alkaline Phosphatase 322 H D (38-126) U/L Total Protein 6.4 (6.3-8.3) g/dL Albumin 2.4 L (3.5-5.0) g/dL Globulin 4.0 H (2.2-3.9) gm/dL Albumin/Globulin Ratio 0.6 L (1.0-2.1) Blood Type Antibody Screen 11/22/16 11/21/16 11/21/16 Range/Units 05:04 23:55 17:37 WBC (4.8-10.8) K/uL RBC (3.80-5.20) Mil/uL Hgb (11.0-16.0) g/dL Hct (34.0-47.0) % MCV (81.0-99.0) fL MCH (27.0-31.0) pg MCHC (33.0-37.0) g/dL RDW (11.5-14.5) % Plt Count (130-400) K/uL MPV (7.2-11.7) fL Neut % (Auto) (50.0-75.0) % Lymph % (Auto) (20.0-40.0) % [place] % (Auto) (0.0-10.0) % Eos % (Auto) (0.0-4.0) % Baso % (Auto) (0.0-2.0) % Neut # (1.8-7.0) K/uL Lymph # (1.0-4.3) K/uL [place] # (0.0-0.8) K/uL Eos # (0.0-0.7) K/uL Baso # (0.0-0.2) K/uL Differential Comment Sodium (132-148) mmol/L Potassium (3.6-5.2) mmol/L Chloride (98-107) mmol/L Carbon Dioxide (22-30) mmol/L Anion Gap (10-20) BUN (7-17) mg/dL Creatinine (0.7-1.2) MG/DL Est GFR ( Amer) Est GFR (Non-Af Amer) POC Glucose (mg/dL) 122 H 83 118 H (65-110) mg/dL Random Glucose (65-105) mg/dL Calcium (8.6-10.4) mg/dl Phosphorus (2.5-4.5) mg/dL Magnesium (1.6-2.3) mg/dL Total Bilirubin (0.2-1.3) mg/dL AST (14-36) U/L ALT (9-52) U/L Alkaline Phosphatase (38-126) U/L Total Protein (6.3-8.3) g/dL Albumin (3.5-5.0) g/dL Globulin (2.2-3.9) gm/dL Albumin/Globulin Ratio (1.0-2.1) Blood Type Antibody Screen 11/19/16 Range/Units 08:30 WBC (4.8-10.8) K/uL RBC (3.80-5.20) Mil/uL Hgb (11.0-16.0) g/dL Hct (34.0-47.0) % MCV (81.0-99.0) fL MCH (27.0-31.0) pg MCHC (33.0-37.0) g/dL RDW (11.5-14.5) % Plt Count (130-400) K/uL MPV (7.2-11.7) fL Neut % (Auto) (50.0-75.0) % Lymph % (Auto) (20.0-40.0) % [place] % (Auto) (0.0-10.0) % Eos % (Auto) (0.0-4.0) % Baso % (Auto) (0.0-2.0) % Neut # (1.8-7.0) K/uL Lymph # (1.0-4.3) K/uL [place] # (0.0-0.8) K/uL Eos # (0.0-0.7) K/uL Baso # (0.0-0.2) K/uL Differential Comment Sodium (132-148) mmol/L Potassium (3.6-5.2) mmol/L Chloride (98-107) mmol/L Carbon Dioxide (22-30) mmol/L Anion Gap (10-20) BUN (7-17) mg/dL Creatinine (0.7-1.2) MG/DL Est GFR ( Amer) Est GFR (Non-Af Amer) POC Glucose (mg/dL) (65-110) mg/dL Random Glucose (65-105) mg/dL Calcium (8.6-10.4) mg/dl Phosphorus (2.5-4.5) mg/dL Magnesium (1.6-2.3) mg/dL Total Bilirubin (0.2-1.3) mg/dL AST (14-36) U/L ALT (9-52) U/L Alkaline Phosphatase (38-126) U/L Total Protein (6.3-8.3) g/dL Albumin (3.5-5.0) g/dL Globulin (2.2-3.9) gm/dL Albumin/Globulin Ratio (1.0-2.1) Blood Type B POSITIVE Antibody Screen Negative Laboratory Results - last 24 hr 11/19/16 11/21/16 11/21/16 08:30 17:37 23:55 WBC RBC Hgb Hct MCV MCH MCHC RDW Plt Count MPV Neut % (Auto) Lymph % (Auto) [place] % (Auto) Eos % (Auto) Baso % (Auto) Neut # Lymph # [place] # Eos # Baso # Differential Comment Sodium Potassium Chloride Carbon Dioxide Anion Gap BUN Creatinine Est GFR ( Amer) Est GFR (Non-Af Amer) POC Glucose (mg/dL) 118 H 83 Random Glucose Calcium Phosphorus Magnesium Total Bilirubin AST ALT Alkaline Phosphatase Total Protein Albumin Globulin Albumin/Globulin Ratio Blood Type B POSITIVE Antibody Screen Negative 11/22/16 11/22/16 11/22/16 05:04 05:59 05:59 WBC 10.9 H RBC 3.08 L Hgb 9.6 L Hct 28.2 L MCV 91.5 MCH 31.2 H MCHC 34.1 RDW 17.2 H Plt Count 26 L* D MPV 10.5 Neut % (Auto) 76.1 H Lymph % (Auto) 10.0 L [place] % (Auto) 11.7 H Eos % (Auto) 0.8 Baso % (Auto) 1.4 Neut # 8.3 H Lymph # 1.1 [place] # 1.3 H Eos # 0.1 Baso # 0.1 Differential Comment Sodium 140 Potassium 3.4 L Chloride 97 L Carbon Dioxide 26 Anion Gap 20 BUN 12 Creatinine 1.0 Est GFR ( Amer) > 60 Est GFR (Non-Af Amer) 54 POC Glucose (mg/dL) 122 H Random Glucose 104 Calcium 9.3 Phosphorus 1.9 L Magnesium 1.6 Total Bilirubin 11.7 H AST 45 H D ALT 25 Alkaline Phosphatase 322 H D Total Protein 6.4 Albumin 2.4 L Globulin 4.0 H Albumin/Globulin Ratio 0.6 L Blood Type Antibody Screen 11/22/16 11:29 WBC RBC Hgb Hct MCV MCH MCHC RDW Plt Count MPV Neut % (Auto) Lymph % (Auto) [place] % (Auto) Eos % (Auto) Baso % (Auto) Neut # Lymph # [place] # Eos # Baso # Differential Comment Sodium Potassium Chloride Carbon Dioxide Anion Gap BUN Creatinine Est GFR ( Amer) Est GFR (Non-Af Amer) POC Glucose (mg/dL) 152 H Random Glucose Calcium Phosphorus Magnesium Total Bilirubin AST ALT Alkaline Phosphatase Total Protein Albumin Globulin Albumin/Globulin Ratio Blood Type Antibody Screen Fingerstick Blood Sugar Results: 152 Review of Systems - Review of Systems Systems not reviewed;Unavailable: Intubated Critical Care Progress Note - Vent Settings TIDAL VOLUME:: 350 RESP RATE:: 14 FIO2:: 50 PEEP:: 5 - Nutrition Nutrition: Nutrition Category Date Time Status NPO Diet [DIET] Diets 11/17/16 Breakfast Active Assessment/Plan - Assessment and Plan (Free Text) Assessment: 76 female patient admitted for GI bleed; s/p flexible sigmoidoscopy and multiple transfusions. Patient was transferred from the medical floor to the ICU because patient was noted to have a hypotensive state, bradycardia and mucus secretions. Neuro: - GCS 9T - at baseline likely secondary to metabolic encephalopathy - Patient in non-verbal Pulm: - Chronic Respiratory failure - Intubated - Vent settings: FiO2 50, Tidal Volume 350, RR 14, PEEP 5 CV: - Septic Shock - BP mildly improved - systolic now 100-110s - Norepinephrine is currently stopped 11/09 - Dr Long on board. Pt high risk for any procedure but can proceed if clinical indicated - Left hand with ischemic necrosis - consult placed for vascular surgery, as per Dr Heber - likely nothing to do Heme: - will continue to monitor H/H and for rectal bleed Renal: - ESRD - HD as per Dr Mcfarland - Dr Trent on consult --> help appreciated - Dialysis scheduled for today Endo: -Insulin sliding scale - patient's daughter refuses insulin GI: Ischemic colitis with hemorrhage, not a candidate for intervention as this would be medically futile. - NGT placed 11/17 - Tube Feeding - f/u PEG tube placement -IR Consult: Dr. Walker --> help appreciated - Protonix for GI bleed - GI Consult: Dr. Young --> help appreciated - Dilaudid 0.5mg IV Q6 PRN ID: - Septic Shock - Meropenem was discontinued 11/07 (patient received a 13 day course) - Trach - sputum culture: Gram + Cocci - Zosyn DVT proph - SCDs, no anti-coagulation due to acute bleed GI proph - Protonix 40mg IVP daily Care Management Consult --> help appreciated - Detention Care Code status - Full <Jonatan Scales - Last Filed: 11/22/16 18:16> CCU Objective - Vital Signs / Intake & Output Intake and Output (Last 8hrs): Intake & Output 11/22/16 11/22/16 11/22/16 06:59 14:59 22:59 Intake Total 520.4 508.4 58.8 Output Total 2 1 Balance 520.4 506.4 57.8 Intake: IV 38 Intake, IV Amount 240.4 190.4 23.8 Right Distal Port PICC 210 160 20 Right PICC 30.4 30.4 3.8 Tube Feeding 280 280 35 Output: Stool 2 1 Other: # Bowel Movements 0 0 - Medications Active Medications: Active Medications Generic Name Dose Route Start Last Admin Trade Name Freq PRN Reason Stop Dose Admin Albuterol/Ipratropium 3 ml 11/12/16 14:00 11/22/16 13:15 Duoneb 3 Mg/0.5 Mg (3 Ml) Ud INH 3 ml RQ6 [facility] Administration Epoetin Sly 10,000 unit 11/21/16 18:30 11/21/16 18:56 Procrit IV 10,000 unit MWF [facility] Administration Hydromorphone HCl 0.5 mg 11/22/16 14:57 11/22/16 15:20 Dilaudid IVP 0.5 mg Q6H PRN Administration Pain, severe (8-10) Norepinephrine Bitartrate 4 mg 254 mls @ 15.24 mls/hr 11/16/16 20:28 08:53 / Sodium Chloride IV 1 mcg/min .[id number] PRN 3.81 mls/hr TITRATE PER MD ORDER Administration Protocol 4 MCG/MIN Piperacillin Sod/Tazobactam Sod 2.25 gm in 50 mls @ 100 mls/hr 11/17/16 18:00 11/22/16 17:59 Zosyn 2.25 Gm Iv Premix IVPB 100 mls/hr Q6H [facility] Administration Insulin Human Regular 0 unit 11/16/16 12:00 11/22/16 17:58 Novolin R SC Not Given Q6 [facility] Protocol Levothyroxine Sodium 175 mcg 11/18/16 06:30 11/22/16 06:00 Synthroid PO 175 mcg DAILY@0630 [facility] Administration Pantoprazole Sodium 40 mg 11/05/16 11:15 11/22/16 10:35 Protonix Inj IVP 40 mg DAILY [facility] Administration - Patient Studies Lab Studies: Microbiology Studies 11/17/16 09:15 Blood Culture - Final Blood-During Dialysis NO GROWTH AFTER 5 DAYS Gram Stain - Final TEST NOT PERFORMED Lab Studies 11/22/16 11/22/16 11/22/16 Range/Units 17:36 11:29 05:59 WBC (4.8-10.8) K/uL RBC (3.80-5.20) Mil/uL Hgb (11.0-16.0) g/dL Hct (34.0-47.0) % MCV (81.0-99.0) fL MCH (27.0-31.0) pg MCHC (33.0-37.0) g/dL RDW (11.5-14.5) % Plt Count (130-400) K/uL MPV (7.2-11.7) fL Neut % (Auto) (50.0-75.0) % Lymph % (Auto) (20.0-40.0) % [place] % (Auto) (0.0-10.0) % Eos % (Auto) (0.0-4.0) % Baso % (Auto) (0.0-2.0) % Neut # (1.8-7.0) K/uL Lymph # (1.0-4.3) K/uL [place] # (0.0-0.8) K/uL Eos # (0.0-0.7) K/uL Baso # (0.0-0.2) K/uL Differential Comment Sodium 140 (132-148) mmol/L Potassium 3.4 L (3.6-5.2) mmol/L Chloride 97 L (98-107) mmol/L Carbon Dioxide 26 (22-30) mmol/L Anion Gap 20 (10-20) BUN 12 (7-17) mg/dL Creatinine 1.0 (0.7-1.2) MG/DL Est GFR ( Amer) > 60 Est GFR (Non-Af Amer) 54 POC Glucose (mg/dL) 148 H 152 H (65-110) mg/dL Random Glucose 104 (65-105) mg/dL Calcium 9.3 (8.6-10.4) mg/dl Phosphorus 1.9 L (2.5-4.5) mg/dL Magnesium 1.6 (1.6-2.3) mg/dL Total Bilirubin 11.7 H (0.2-1.3) mg/dL AST 45 H D (14-36) U/L ALT 25 (9-52) U/L Alkaline Phosphatase 322 H D (38-126) U/L Total Protein 6.4 (6.3-8.3) g/dL Albumin 2.4 L (3.5-5.0) g/dL Globulin 4.0 H (2.2-3.9) gm/dL Albumin/Globulin Ratio 0.6 L (1.0-2.1) 11/22/16 11/22/16 11/21/16 Range/Units 05:59 05:04 23:55 WBC 10.9 H (4.8-10.8) K/uL RBC 3.08 L (3.80-5.20) Mil/uL Hgb 9.6 L (11.0-16.0) g/dL Hct 28.2 L (34.0-47.0) % MCV 91.5 (81.0-99.0) fL MCH 31.2 H (27.0-31.0) pg MCHC 34.1 (33.0-37.0) g/dL RDW 17.2 H (11.5-14.5) % Plt Count 26 L* D (130-400) K/uL MPV 10.5 (7.2-11.7) fL Neut % (Auto) 76.1 H (50.0-75.0) % Lymph % (Auto) 10.0 L (20.0-40.0) % [place] % (Auto) 11.7 H (0.0-10.0) % Eos % (Auto) 0.8 (0.0-4.0) % Baso % (Auto) 1.4 (0.0-2.0) % Neut # 8.3 H (1.8-7.0) K/uL Lymph # 1.1 (1.0-4.3) K/uL [place] # 1.3 H (0.0-0.8) K/uL Eos # 0.1 (0.0-0.7) K/uL Baso # 0.1 (0.0-0.2) K/uL Differential Comment Sodium (132-148) mmol/L Potassium (3.6-5.2) mmol/L Chloride (98-107) mmol/L Carbon Dioxide (22-30) mmol/L Anion Gap (10-20) BUN (7-17) mg/dL Creatinine (0.7-1.2) MG/DL Est GFR ( Amer) Est GFR (Non-Af Amer) POC Glucose (mg/dL) 122 H 83 (65-110) mg/dL Random Glucose (65-105) mg/dL Calcium (8.6-10.4) mg/dl Phosphorus (2.5-4.5) mg/dL Magnesium (1.6-2.3) mg/dL Total Bilirubin (0.2-1.3) mg/dL AST (14-36) U/L ALT (9-52) U/L Alkaline Phosphatase (38-126) U/L Total Protein (6.3-8.3) g/dL Albumin (3.5-5.0) g/dL Globulin (2.2-3.9) gm/dL Albumin/Globulin Ratio (1.0-2.1) Laboratory Results - last 24 hr 11/21/16 11/22/16 11/22/16 23:55 05:04 05:59 WBC 10.9 H RBC 3.08 L Hgb 9.6 L Hct 28.2 L MCV 91.5 MCH 31.2 H MCHC 34.1 RDW 17.2 H Plt Count 26 L* D MPV 10.5 Neut % (Auto) 76.1 H Lymph % (Auto) 10.0 L [place] % (Auto) 11.7 H Eos % (Auto) 0.8 Baso % (Auto) 1.4 Neut # 8.3 H Lymph # 1.1 [place] # 1.3 H Eos # 0.1 Baso # 0.1 Differential Comment Sodium Potassium Chloride Carbon Dioxide Anion Gap BUN Creatinine Est GFR ( Amer) Est GFR (Non-Af Amer) POC Glucose (mg/dL) 83 122 H Random Glucose Calcium Phosphorus Magnesium Total Bilirubin AST ALT Alkaline Phosphatase Total Protein Albumin Globulin Albumin/Globulin Ratio 11/22/16 11/22/16 11/22/16 05:59 11:29 17:36 WBC RBC Hgb Hct MCV MCH MCHC RDW Plt Count MPV Neut % (Auto) Lymph % (Auto) [place] % (Auto) Eos % (Auto) Baso % (Auto) Neut # Lymph # [place] # Eos # Baso # Differential Comment Sodium 140 Potassium 3.4 L Chloride 97 L Carbon Dioxide 26 Anion Gap 20 BUN 12 Creatinine 1.0 Est GFR ( Amer) > 60 Est GFR (Non-Af Amer) 54 POC Glucose (mg/dL) 152 H 148 H Random Glucose 104 Calcium 9.3 Phosphorus 1.9 L Magnesium 1.6 Total Bilirubin 11.7 H AST 45 H D ALT 25 Alkaline Phosphatase 322 H D Total Protein 6.4 Albumin 2.4 L Globulin 4.0 H Albumin/Globulin Ratio 0.6 L Critical Care Progress Note - Nutrition Nutrition: Nutrition Category Date Time Status NPO Diet [DIET] Diets 11/17/16 Breakfast Active Assessment/Plan (1) Respiratory failure Current Visit: Yes Status: Acute Comment: Continue ventilatory support and reduce FiO2 as tolerated Transfuse platelets Continue feeding Monitor platelet count and H&H Prognosis poor (2) Lower GI bleed Current Visit: Yes Status: Acute (3) ESRD (end stage renal disease) on dialysis Current Visit: No Status: Chronic Attending/Attestation - Attestation I have personally seen and examined this patient.: Yes I have fully participated in the care of the patient.: Yes I have reviewed all pertinent clinical information: Yes Notes (Text): 11/22/16 18:15 Patient seen and examined in the intensive care unit. Case discussed with staff in the morning. Continue present treatment Prognosis poor Spoke to Daughter at length
--- NOTE | 2016-11-22 17:34 | CP.PCM.PN ---
Subjective - Date & Time of Evaluation Date of Evaluation: 11/22/16 Time of Evaluation: 08:35 - Subjective Subjective: Patient is not responsive to commands Poor prognosis Patient full code Time spent for evuation 35 minutes Objective - Vital Signs/Intake and Output Vital Signs (last 24 hours): Temp Pulse Resp BP Pulse Ox 98.6 F 105 H 19 98/40 L 100 11/22/16 12:00 11/22/16 12:34 11/22/16 12:34 11/22/16 12:34 11/22/16 12:34 Intake and Output: 11/22/16 11/22/16 06:59 18:59 Intake Total 744.2 567.2 Output Total 1000 3 Balance -255.8 564.2 - Medications Medications: Current Medications Albuterol/Ipratropium (Duoneb 3 Mg/0.5 Mg (3 Ml) Ud) 3 ml INH RQ6 [facility] Last Admin: 11/22/16 13:15 Dose: 3 ml Epoetin Sly (Procrit) 10,000 unit IV MWF [facility] Last Admin: 11/21/16 18:56 Dose: 10,000 unit Hydromorphone HCl (Dilaudid) 0.5 mg IVP Q6H PRN PRN Reason: Pain, severe (8-10) Last Admin: 11/22/16 15:20 Dose: 0.5 mg Norepinephrine Bitartrate 4 mg (/ Sodium Chloride) 254 mls @ 15.24 mls/hr IV .[id number] PRN; Protocol; 4 MCG/MIN PRN Reason: TITRATE PER MD ORDER Last Admin: 11/22/16 08:53 Dose: 1 mcg/min, 3.81 mls/hr Piperacillin Sod/Tazobactam Sod (Zosyn 2.25 Gm Iv Premix) 2.25 gm in 50 mls @ 100 mls/hr IVPB Q6H [facility] Last Admin: 11/22/16 12:43 Dose: 100 mls/hr Insulin Human Regular (Novolin R) 0 unit SC Q6 [facility] PRN Reason: Protocol Last Admin: 11/22/16 12:41 Dose: Not Given Levothyroxine Sodium (Synthroid) 175 mcg PO DAILY@0630 [facility] Last Admin: 11/22/16 06:00 Dose: 175 mcg Pantoprazole Sodium (Protonix Inj) 40 mg IVP DAILY [facility] Last Admin: 11/22/16 10:35 Dose: 40 mg - Labs Labs: 11/22/16 05:59 11/22/16 05:59 PT 19.5 SECONDS (9.7-12.2) H 10/28/16 08:07 INR 1.7 10/28/16 08:07 APTT 49 SECONDS (21-34) H 10/25/16 16:33
--- NOTE | 2016-11-22 20:07 | CP.PCM.PN ---
Subjective - Date & Time of Evaluation Date of Evaluation: 11/22/16 Time of Evaluation: 20:07 - Subjective Subjective: Patient's overall condition is worsening, spoke to the patient's daughter. Prognosis very poor Objective - Vital Signs/Intake and Output Vital Signs (last 24 hours): Temp Pulse Resp BP Pulse Ox 100.3 F H 81 14 70/34 L 100 11/22/16 16:00 11/22/16 19:49 11/22/16 19:49 11/22/16 19:49 11/22/16 19:49 Intake and Output: 11/22/16 11/23/16 18:59 06:59 Intake Total 722.2 55 Output Total 4 Balance 718.2 55 - Medications Medications: Current Medications Albuterol/Ipratropium (Duoneb 3 Mg/0.5 Mg (3 Ml) Ud) 3 ml INH RQ6 [facility] Last Admin: 11/22/16 19:27 Dose: 3 ml Epoetin Sly (Procrit) 10,000 unit IV MWF [facility] Last Admin: 11/21/16 18:56 Dose: 10,000 unit Hydromorphone HCl (Dilaudid) 0.5 mg IVP Q6H PRN PRN Reason: Pain, severe (8-10) Last Admin: 11/22/16 15:20 Dose: 0.5 mg Norepinephrine Bitartrate 4 mg (/ Sodium Chloride) 254 mls @ 15.24 mls/hr IV .[id number] PRN; Protocol; 4 MCG/MIN PRN Reason: TITRATE PER MD ORDER Last Titration: 11/22/16 15:30 Dose: 0 mcg/min, 0 mls/hr Piperacillin Sod/Tazobactam Sod (Zosyn 2.25 Gm Iv Premix) 2.25 gm in 50 mls @ 100 mls/hr IVPB Q6H [facility] Last Admin: 11/22/16 17:59 Dose: 100 mls/hr Insulin Human Regular (Novolin R) 0 unit SC Q6 [facility] PRN Reason: Protocol Last Admin: 11/22/16 17:58 Dose: Not Given Levothyroxine Sodium (Synthroid) 175 mcg PO DAILY@0630 [facility] Last Admin: 11/22/16 06:00 Dose: 175 mcg Pantoprazole Sodium (Protonix Inj) 40 mg IVP DAILY [facility] Last Admin: 11/22/16 10:35 Dose: 40 mg - Labs Labs: 11/22/16 05:59 11/22/16 05:59 PT 19.5 SECONDS (9.7-12.2) H 10/28/16 08:07 INR 1.7 10/28/16 08:07 APTT 49 SECONDS (21-34) H 10/25/16 16:33
[2016-11-23] MEDS: Piperacill/Tazo 2.25gm in Dex 2.25 GM/50 ML BAG IVPB SCH ×4 (00:04→18:10)
[2016-11-23] MEDS: Acetaminophen 650mg/20.3ml solution UD NG PRN ×2 (00:16→05:57)
[2016-11-23] MEDS: (Novolin R) Insulin Human Regular 100 units/ml vial SC SCH ×5 (00:22→23:20)
[2016-11-23] MEDS: Albuterol-Ipratrop 3 mg / 0.5 (3 ml) UD INH SCH ×4 (01:23→19:18)
[2016-11-23 05:55] LABS: ABG ALLEN TEST POS; ABG MECHANICAL RATE 14; ARTERIAL BLOOD GAS MODE PRVC; ARTERIAL BLOOD HGB O2 SAT 95.9 % (95.0-98.0); ATERIAL BLOOD GAS PEEP 5; CARBOXYHEMOGLOBIN 2.4 % (0.5-1.5); DRAW SITE RR; HHB 0.4 % (0.0-5.0); METHEMOGLOBIN 1.3 % (0.0-3.0)
[2016-11-23] MEDS: Levothyroxine 175 MCG TAB PO SCH (05:58)
[2016-11-23 06:32] LABS: BASO # 0.2 K/uL (0.0-0.2); BASO % 1.4 % (0.0-2.0); EOS # 0.1 K/uL (0.0-0.7); EOS % 0.8 % (0.0-4.0); HEMATOCRIT 27.4 % (34.0-47.0); LYMPH # 1.3 K/uL (1.0-4.3); LYMPH % 8.9 % (20.0-40.0); MEAN CELL VOLUME 93.1 fL (81.0-99.0); MEAN CORPUSCULAR HEMOGLOBIN 30.9 pg (27.0-31.0); MEAN CORPUSCULAR HGB CONC 33.2 g/dL (33.0-37.0); MEAN PLATELET VOLUME 10.8 fL (7.2-11.7); MONO # 1.2 K/uL (0.0-0.8); MONO % 8.2 % (0.0-10.0); NRBC % 0.1 % (0.0-2.0); PLATELET COUNT 34 K/uL (130-400); WHITE BLOOD COUNT 15.2 K/uL (4.8-10.8)
[2016-11-23 06:41] LABS: POTASSIUM 3.4 mmol/L (3.6-5.2)
[2016-11-23 06:43] LABS: ALB/GLOB RATIO 0.6 (1.0-2.1); TOTAL PROTEIN 6.2 g/dL (6.3-8.3)
[2016-11-23 06:44] LABS: CALCIUM 9.2 mg/dl (8.6-10.4); MAGNESIUM 1.5 mg/dL (1.6-2.3); PHOSPHOROUS 2.8 mg/dL (2.5-4.5)
[2016-11-23 08:41] LABS: BASOPHIL 1 % (0-2); NEUTROPHIL 85 % (50-75); NUCLEATED RED BLOOD CELL 1 % (0-0); TOTAL CELLS COUNTED 100
[2016-11-23 08:42] LABS: LARGE PLATELETS PRESENT
[2016-11-23] MEDS ORDERED: Albumin Human 25% (12.5 gm/50 ml) IV ONE ×2 (10:11→11:15)
[2016-11-23] MEDS: Epoetin Alfa 10,000 unit/ml Dialysis IV SCH (10:29)
--- NOTE | 2016-11-23 10:41 | RAD ---
HISTORY: intubation COMPARISON: 11/20/2016 FINDINGS: There is stable position of the tracheostomy tube. The nasogastric tube terminates in the stomach. The right PICC line terminates at the cavoatrial junction. LUNGS: There is persistent moderate pulmonary venous congestion. No focal consolidation in the left lung. PLEURA: There is worsening right pleural effusion with moderate effusion. No significant left pleural effusion. No pneumothorax. CARDIOVASCULAR: The heart is normal in size. Status post CABG. OSSEOUS STRUCTURES: There is an old deformity in the right proximal humerus VISUALIZED UPPER ABDOMEN: Normal. OTHER FINDINGS: None. IMPRESSION: 1. Worsening right pleural effusion. Underlying consolidation cannot be excluded. 2. Background of congestive heart failure
--- NOTE | 2016-11-23 12:08 | CP.CCUPN ---
<Monica Cano - Last Filed: 11/23/16 12:03> CCU Subjective - Physician Review Subjective (Free Text): Patient was seen and examined at bedside in the morning. Patient is non- verbal. 11/23/16 12:03 CCU Objective - Vital Signs / Intake & Output Vital Signs (Last 4 hours): Vital Signs Temp Pulse Pulse Pulse Resp BP BP 11/23/16 11:19 96/45 L 11/23/16 10:49 89/33 L 11/23/16 10:30 110 H 19 11/23/16 10:19 94 H 22 84/38 L 84/38 L 11/23/16 10:04 97 H 20 85/38 L 85/38 L 11/23/16 10:00 96 H 24 11/23/16 09:55 95 H 19 90/38 L 11/23/16 09:52 95 H 18 76/37 L 11/23/16 09:49 95 H 21 78/36 L 78/36 L 11/23/16 09:34 94 H 19 92/41 L 92/41 L 11/23/16 09:30 93 H 23 11/23/16 09:19 99.3 F 95 H 95 H 95 H 18 92/39 L 92/39 L 11/23/16 09:15 99.3 F 95 H 92/37 L 11/23/16 09:04 96 H 24 99/36 L 11/23/16 09:00 97 H 24 11/23/16 08:49 97 H 25 H 95/40 L 11/23/16 08:34 97 H 21 93/38 L 11/23/16 08:30 96 H 22 11/23/16 08:19 96 H 21 92/36 L 11/23/16 08:04 98 H 15 89/38 L Pulse Ox 11/23/16 11:19 11/23/16 10:49 11/23/16 10:30 99 11/23/16 10:19 99 11/23/16 10:04 100 11/23/16 10:00 100 11/23/16 09:55 100 11/23/16 09:52 100 11/23/16 09:49 100 11/23/16 09:34 100 11/23/16 09:30 100 11/23/16 09:19 100 11/23/16 09:15 11/23/16 09:04 100 11/23/16 09:00 100 11/23/16 08:49 100 11/23/16 08:34 100 11/23/16 08:30 100 11/23/16 08:19 100 11/23/16 08:04 100 Intake and Output (Last 8hrs): Intake & Output 11/22/16 11/23/16 11/23/16 22:59 06:59 14:59 Intake Total 460.3 694.1 246.6 Output Total 2 Balance 458.3 694.1 246.6 Weight 112 lb 6.972 oz Intake: IV 4 0 Intake, IV Amount 186.3 214.1 106.6 Right Distal Port PICC 160 180 80 Right PICC 26.3 34.1 26.6 Tube Feeding 270 280 140 Other 200 Output: Stool 2 Other: # Bowel Movements 1 1 - Physical Exam Head: Positive for: Atraumatic, Normocephalic Conjunctiva: Positive for: Icteric Mouth: Positive for: Dry Nose (Internal): Positive for: Other (NGT was replaced 11/17 [address] is still in [address]) Neck: Positive for: Other (trach in place) Respiratory/Chest: Positive for: Decreased Breath Sounds, Rhonchi. Negative for : Clear to Auscultation, Respiratory Distress, Accessory Muscle Use Cardiovascular: Positive for: Normal S1, S2. Negative for: Murmurs, Tachycardic , Bradycardic Abdomen: Positive for: Other (+bowel sounds). Negative for: Distention, Hernias Upper Extremity: Positive for: Cyanosis, Other (cold fingers, ischemic 2-4 digits on left hand ). Negative for: NORMAL PULSES, Neurovascularly Intact, Capillary Refill < 2s Lower Extremity: Positive for: Edema. Negative for: NORMAL PULSES Neurological: Negative for: GCS=15, Speech Normal Skin: Positive for: Cold (bilateral hands), Other (gangrenous fingertips). Negative for: Warm Psychiatric: Positive for: Other (non-verbal ). Negative for: Alert, Oriented x 3, Normal Insight, Normal Concentration - Medications Active Medications: Active Medications Generic Name Dose Route Start Last Admin Trade Name Freq PRN Reason Stop Dose Admin Acetaminophen 650 mg 11/23/16 00:09 11/23/16 05:57 Tylenol 650mg/20.3ml Solution Ud NG 650 mg Q6 PRN Administration temp above 101 Albuterol/Ipratropium 3 ml 11/12/16 14:00 11/23/16 07:23 Duoneb 3 Mg/0.5 Mg (3 Ml) Ud INH 3 ml RQ6 REKHA Administration Epoetin Sly 10,000 unit 11/21/16 18:30 11/23/16 10:29 Procrit IV 10,000 unit MWF REKHA Administration Hydromorphone HCl 0.5 mg 11/22/16 14:57 11/22/16 15:20 Dilaudid IVP 0.5 mg Q6H PRN Administration Pain, severe (8-10) Norepinephrine Bitartrate 4 mg 254 mls @ 15.24 mls/hr 11/16/16 20:28 00:24 / Sodium Chloride IV 0.99 mcg/min .[id number] PRN 3.8 mls/hr TITRATE PER MD ORDER Titration Protocol 4 MCG/MIN Piperacillin Sod/Tazobactam Sod 2.25 gm in 50 mls @ 100 mls/hr 11/17/16 18:00 11/23/16 05:58 Zosyn 2.25 Gm Iv Premix IVPB 100 mls/hr Q6H REKHA Administration Insulin Human Regular 0 unit 11/16/16 12:00 11/23/16 05:55 Novolin R SC Not Given Q6 [facility] Protocol Levothyroxine Sodium 175 mcg 11/18/16 06:30 11/23/16 05:58 Synthroid PO 175 mcg DAILY@0630 REKHA Administration Pantoprazole Sodium 40 mg 11/05/16 11:15 11/22/16 10:35 Protonix Inj IVP 40 mg DAILY REKHA Administration - Patient Studies Lab Studies: Microbiology Studies 11/17/16 09:15 Blood Culture - Final Blood-During Dialysis NO GROWTH AFTER 5 DAYS Gram Stain - Final TEST NOT PERFORMED Lab Studies 11/23/16 11/23/16 11/23/16 Range/Units 11:56 06:23 06:21 WBC 15.2 H (4.8-10.8) K/uL RBC 2.94 L (3.80-5.20) Mil/uL Hgb 9.1 L (11.0-16.0) g/dL Hct 27.4 L (34.0-47.0) % MCV 93.1 (81.0-99.0) fL MCH 30.9 (27.0-31.0) pg MCHC 33.2 (33.0-37.0) g/dL RDW 18.0 H (11.5-14.5) % Plt Count 34 L (130-400) K/uL MPV 10.8 (7.2-11.7) fL Neut % (Auto) 80.7 H (50.0-75.0) % Lymph % (Auto) 8.9 L (20.0-40.0) % [place] % (Auto) 8.2 (0.0-10.0) % Eos % (Auto) 0.8 (0.0-4.0) % Baso % (Auto) 1.4 (0.0-2.0) % Neut # 12.2 H (1.8-7.0) K/uL Lymph # 1.3 (1.0-4.3) K/uL [place] # 1.2 H (0.0-0.8) K/uL Eos # 0.1 (0.0-0.7) K/uL Baso # 0.2 (0.0-0.2) K/uL Neutrophils % (Manual) 85 H (50-75) % Band Neutrophils % 3 H (0-2) % Lymphocytes % (Manual) 4 L (20-40) % Monocytes % (Manual) 7 (0-10) % Basophils % (Manual) 1 (0-2) % Nucleated RBC % 1 H (0-0) % Toxic Granulation Present Platelet Estimate Decreased L (NORMAL) Large Platelets Present Hypochromasia (manual) Slight Poikilocytosis (manual Slight Anisocytosis (manual) Slight Puncture Site pCO2 (35-45) mm/Hg pO2 (80-100) mm/Hg HCO3 (21-28) mmol/L ABG pH (7.35-7.45) ABG Total CO2 (22-28) mmol/L ABG O2 Saturation (95-98) % ABG Base Excess (-2.0-3.0) mmol/L ABG Hemoglobin (11.7-17.4) g/dL ABG Carboxyhemoglobin (0.5-1.5) % POC ABG HHb (Measured) (0.0-5.0) % ABG Methemoglobin (0.0-3.0) % [place] Test A-a O2 Difference mm/Hg Respiratory Index Hgb O2 Saturation (95.0-98.0) % Vent Mode Mechanical Rate FiO2 % Tidal Volume PEEP Sodium 137 (132-148) mmol/L Potassium 3.4 L (3.6-5.2) mmol/L Chloride 95 L (98-107) mmol/L Carbon Dioxide 24 (22-30) mmol/L Anion Gap 21 H (10-20) BUN 21 H (7-17) mg/dL Creatinine 1.6 H (0.7-1.2) MG/DL Est GFR ( Amer) 38 Est GFR (Non-Af Amer) 32 POC Glucose (mg/dL) 189 H (65-110) mg/dL Random Glucose 200 H (65-105) mg/dL Calcium 9.2 (8.6-10.4) mg/dl Phosphorus 2.8 (2.5-4.5) mg/dL Magnesium 1.5 L (1.6-2.3) mg/dL Total Bilirubin 10.0 H (0.2-1.3) mg/dL AST 37 H (14-36) U/L ALT 25 (9-52) U/L Alkaline Phosphatase 253 H D (38-126) U/L Total Protein 6.2 L (6.3-8.3) g/dL Albumin 2.2 L (3.5-5.0) g/dL Globulin 3.9 (2.2-3.9) gm/dL Albumin/Globulin Ratio 0.6 L (1.0-2.1) 11/23/16 11/23/16 11/22/16 Range/Units 05:50 05:28 23:49 WBC (4.8-10.8) K/uL RBC (3.80-5.20) Mil/uL Hgb (11.0-16.0) g/dL Hct (34.0-47.0) % MCV (81.0-99.0) fL MCH (27.0-31.0) pg MCHC (33.0-37.0) g/dL RDW (11.5-14.5) % Plt Count (130-400) K/uL MPV (7.2-11.7) fL Neut % (Auto) (50.0-75.0) % Lymph % (Auto) (20.0-40.0) % [place] % (Auto) (0.0-10.0) % Eos % (Auto) (0.0-4.0) % Baso % (Auto) (0.0-2.0) % Neut # (1.8-7.0) K/uL Lymph # (1.0-4.3) K/uL [place] # (0.0-0.8) K/uL Eos # (0.0-0.7) K/uL Baso # (0.0-0.2) K/uL Neutrophils % (Manual) (50-75) % Band Neutrophils % (0-2) % Lymphocytes % (Manual) (20-40) % Monocytes % (Manual) (0-10) % Basophils % (Manual) (0-2) % Nucleated RBC % (0-0) % Toxic Granulation Platelet Estimate (NORMAL) Large Platelets Hypochromasia (manual) Poikilocytosis (manual Anisocytosis (manual) Puncture Site Rr pCO2 32 L (35-45) mm/Hg pO2 86 (80-100) mm/Hg HCO3 24.4 (21-28) mmol/L ABG pH 7.46 H (7.35-7.45) ABG Total CO2 23.8 (22-28) mmol/L ABG O2 Saturation 99.6 H (95-98) % ABG Base Excess -0.7 (-2.0-3.0) mmol/L ABG Hemoglobin 8.7 L (11.7-17.4) g/dL ABG Carboxyhemoglobin 2.4 H (0.5-1.5) % POC ABG HHb (Measured) 0.4 (0.0-5.0) % ABG Methemoglobin 1.3 (0.0-3.0) % [place] Test Pos A-a O2 Difference 231.0 mm/Hg Respiratory Index 2.7 Hgb O2 Saturation 95.9 (95.0-98.0) % Vent Mode Prvc Mechanical Rate 14 FiO2 50.0 % Tidal Volume 350 PEEP 5 Sodium (132-148) mmol/L Potassium (3.6-5.2) mmol/L Chloride (98-107) mmol/L Carbon Dioxide (22-30) mmol/L Anion Gap (10-20) BUN (7-17) mg/dL Creatinine (0.7-1.2) MG/DL Est GFR ( Amer) Est GFR (Non-Af Amer) POC Glucose (mg/dL) 240 H 179 H (65-110) mg/dL Random Glucose (65-105) mg/dL Calcium (8.6-10.4) mg/dl Phosphorus (2.5-4.5) mg/dL Magnesium (1.6-2.3) mg/dL Total Bilirubin (0.2-1.3) mg/dL AST (14-36) U/L ALT (9-52) U/L Alkaline Phosphatase (38-126) U/L Total Protein (6.3-8.3) g/dL Albumin (3.5-5.0) g/dL Globulin (2.2-3.9) gm/dL Albumin/Globulin Ratio (1.0-2.1) 11/22/16 Range/Units 17:36 WBC (4.8-10.8) K/uL RBC (3.80-5.20) Mil/uL Hgb (11.0-16.0) g/dL Hct (34.0-47.0) % MCV (81.0-99.0) fL MCH (27.0-31.0) pg MCHC (33.0-37.0) g/dL RDW (11.5-14.5) % Plt Count (130-400) K/uL MPV (7.2-11.7) fL Neut % (Auto) (50.0-75.0) % Lymph % (Auto) (20.0-40.0) % [place] % (Auto) (0.0-10.0) % Eos % (Auto) (0.0-4.0) % Baso % (Auto) (0.0-2.0) % Neut # (1.8-7.0) K/uL Lymph # (1.0-4.3) K/uL [place] # (0.0-0.8) K/uL Eos # (0.0-0.7) K/uL Baso # (0.0-0.2) K/uL Neutrophils % (Manual) (50-75) % Band Neutrophils % (0-2) % Lymphocytes % (Manual) (20-40) % Monocytes % (Manual) (0-10) % Basophils % (Manual) (0-2) % Nucleated RBC % (0-0) % Toxic Granulation Platelet Estimate (NORMAL) Large Platelets Hypochromasia (manual) Poikilocytosis (manual Anisocytosis (manual) Puncture Site pCO2 (35-45) mm/Hg pO2 (80-100) mm/Hg HCO3 (21-28) mmol/L ABG pH (7.35-7.45) ABG Total CO2 (22-28) mmol/L ABG O2 Saturation (95-98) % ABG Base Excess (-2.0-3.0) mmol/L ABG Hemoglobin (11.7-17.4) g/dL ABG Carboxyhemoglobin (0.5-1.5) % POC ABG HHb (Measured) (0.0-5.0) % ABG Methemoglobin (0.0-3.0) % [place] Test A-a O2 Difference mm/Hg Respiratory Index Hgb O2 Saturation (95.0-98.0) % Vent Mode Mechanical Rate FiO2 % Tidal Volume PEEP Sodium (132-148) mmol/L Potassium (3.6-5.2) mmol/L Chloride (98-107) mmol/L Carbon Dioxide (22-30) mmol/L Anion Gap (10-20) BUN (7-17) mg/dL Creatinine (0.7-1.2) MG/DL Est GFR ( Amer) Est GFR (Non-Af Amer) POC Glucose (mg/dL) 148 H (65-110) mg/dL Random Glucose (65-105) mg/dL Calcium (8.6-10.4) mg/dl Phosphorus (2.5-4.5) mg/dL Magnesium (1.6-2.3) mg/dL Total Bilirubin (0.2-1.3) mg/dL AST (14-36) U/L ALT (9-52) U/L Alkaline Phosphatase (38-126) U/L Total Protein (6.3-8.3) g/dL Albumin (3.5-5.0) g/dL Globulin (2.2-3.9) gm/dL Albumin/Globulin Ratio (1.0-2.1) Laboratory Results - last 24 hr 11/22/16 11/22/16 11/23/16 17:36 23:49 05:28 WBC RBC Hgb Hct MCV MCH MCHC RDW Plt Count MPV Neut % (Auto) Lymph % (Auto) [place] % (Auto) Eos % (Auto) Baso % (Auto) Neut # Lymph # [place] # Eos # Baso # Neutrophils % (Manual) Band Neutrophils % Lymphocytes % (Manual) Monocytes % (Manual) Basophils % (Manual) Nucleated RBC % Toxic Granulation Platelet Estimate Large Platelets Hypochromasia (manual) Poikilocytosis (manual Anisocytosis (manual) Puncture Site Rr pCO2 32 L pO2 86 HCO3 24.4 ABG pH 7.46 H ABG Total CO2 23.8 ABG O2 Saturation 99.6 H ABG Base Excess -0.7 ABG Hemoglobin 8.7 L ABG Carboxyhemoglobin 2.4 H POC ABG HHb (Measured) 0.4 ABG Methemoglobin 1.3 [place] Test Pos A-a O2 Difference 231.0 Respiratory Index 2.7 Hgb O2 Saturation 95.9 Vent Mode Prvc Mechanical Rate 14 FiO2 50.0 Tidal Volume 350 PEEP 5 Sodium Potassium Chloride Carbon Dioxide Anion Gap BUN Creatinine Est GFR ( Amer) Est GFR (Non-Af Amer) POC Glucose (mg/dL) 148 H 179 H Random Glucose Calcium Phosphorus Magnesium Total Bilirubin AST ALT Alkaline Phosphatase Total Protein Albumin Globulin Albumin/Globulin Ratio 11/23/16 11/23/16 11/23/16 05:50 06:21 06:23 WBC 15.2 H RBC 2.94 L Hgb 9.1 L Hct 27.4 L MCV 93.1 MCH 30.9 MCHC 33.2 RDW 18.0 H Plt Count 34 L MPV 10.8 Neut % (Auto) 80.7 H Lymph % (Auto) 8.9 L [place] % (Auto) 8.2 Eos % (Auto) 0.8 Baso % (Auto) 1.4 Neut # 12.2 H Lymph # 1.3 [place] # 1.2 H Eos # 0.1 Baso # 0.2 Neutrophils % (Manual) 85 H Band Neutrophils % 3 H Lymphocytes % (Manual) 4 L Monocytes % (Manual) 7 Basophils % (Manual) 1 Nucleated RBC % 1 H Toxic Granulation Present Platelet Estimate Decreased L Large Platelets Present Hypochromasia (manual) Slight Poikilocytosis (manual Slight Anisocytosis (manual) Slight Puncture Site pCO2 pO2 HCO3 ABG pH ABG Total CO2 ABG O2 Saturation ABG Base Excess ABG Hemoglobin ABG Carboxyhemoglobin POC ABG HHb (Measured) ABG Methemoglobin [place] Test A-a O2 Difference Respiratory Index Hgb O2 Saturation Vent Mode Mechanical Rate FiO2 Tidal Volume PEEP Sodium 137 Potassium 3.4 L Chloride 95 L Carbon Dioxide 24 Anion Gap 21 H BUN 21 H Creatinine 1.6 H Est GFR ( Amer) 38 Est GFR (Non-Af Amer) 32 POC Glucose (mg/dL) 240 H Random Glucose 200 H Calcium 9.2 Phosphorus 2.8 Magnesium 1.5 L Total Bilirubin 10.0 H AST 37 H ALT 25 Alkaline Phosphatase 253 H D Total Protein 6.2 L Albumin 2.2 L Globulin 3.9 Albumin/Globulin Ratio 0.6 L 11/23/16 11:56 WBC RBC Hgb Hct MCV MCH MCHC RDW Plt Count MPV Neut % (Auto) Lymph % (Auto) [place] % (Auto) Eos % (Auto) Baso % (Auto) Neut # Lymph # [place] # Eos # Baso # Neutrophils % (Manual) Band Neutrophils % Lymphocytes % (Manual) Monocytes % (Manual) Basophils % (Manual) Nucleated RBC % Toxic Granulation Platelet Estimate Large Platelets Hypochromasia (manual) Poikilocytosis (manual Anisocytosis (manual) Puncture Site pCO2 pO2 HCO3 ABG pH ABG Total CO2 ABG O2 Saturation ABG Base Excess ABG Hemoglobin ABG Carboxyhemoglobin POC ABG HHb (Measured) ABG Methemoglobin [place] Test A-a O2 Difference Respiratory Index Hgb O2 Saturation Vent Mode Mechanical Rate FiO2 Tidal Volume PEEP Sodium Potassium Chloride Carbon Dioxide Anion Gap BUN Creatinine Est GFR ( Amer) Est GFR (Non-Af Amer) POC Glucose (mg/dL) 189 H Random Glucose Calcium Phosphorus Magnesium Total Bilirubin AST ALT Alkaline Phosphatase Total Protein Albumin Globulin Albumin/Globulin Ratio Fingerstick Blood Sugar Results: 179 Review of Systems - Review of Systems Systems not reviewed;Unavailable: Intubated Critical Care Progress Note - Nutrition Nutrition: Nutrition Category Date Time Status NPO Diet [DIET] Diets 11/17/16 Breakfast Active Assessment/Plan - Assessment and Plan (Free Text) Assessment: 76 female patient admitted for GI bleed; s/p flexible sigmoidoscopy and multiple transfusions. Patient was transferred from the medical floor to the ICU because patient was noted to have a hypotensive state, bradycardia and mucus secretions. Neuro: - GCS 9T - at baseline likely secondary to metabolic encephalopathy - Patient in non-verbal Pulm: - Chronic Respiratory failure - Intubated - Vent settings: FiO2 50, Tidal Volume 350, RR 14, PEEP 5 CV: - Septic Shock - BP mildly improved - systolic now in the 90s - Norepinephrine IV 4mcg/min - Dr Long on board. Pt high risk for any procedure but can proceed if clinical indicated - Left hand with ischemic necrosis - consult placed for vascular surgery, as per Dr Buck - likely nothing to do Heme: - Will continue to monitor H/H and for rectal bleed Renal: - ESRD - HD as per Dr Mcfarland - Dr Trent on consult --> help appreciated - Dialysis scheduled for today Endo: -Insulin sliding scale - patient's daughter refuses insulin GI: Ischemic colitis with hemorrhage, not a candidate for intervention as this would be medically futile. - NGT placed 11/17 - Tube Feeding - f/u PEG tube placement -IR Consult: Dr. Walker --> help appreciated - As per Dr. Walker, plan is to place on a g-tube once patient is hemodynamically stable and coagulopathy is corrected. - Protonix for GI bleed - GI Consult: Dr. Young --> help appreciated - Dilaudid 0.5mg IV Q6 PRN ID: - Septic Shock - Meropenem was discontinued 11/07 (patient received a 13 day course) - Trach - sputum culture: Gram + Cocci - Zosyn DVT proph - SCDs, no anti-coagulation due to acute bleed GI proph - Protonix 40mg IVP daily Care Management Consult --> help appreciated - Customer Engagement Representative Care <Jonatan Scales - Last Filed: 11/23/16 17:29> CCU Objective - Vital Signs / Intake & Output Vital Signs (Last 4 hours): Vital Signs Pulse Resp BP Pulse Ox 11/23/16 14:04 107 H 20 101/49 L 100 11/23/16 14:00 107 H 25 H 99 11/23/16 13:49 89 16 93/39 L 100 11/23/16 13:34 85 17 97/40 L 100 11/23/16 13:30 104 H 23 100 Intake and Output (Last 8hrs): Intake & Output 11/23/16 11/23/16 11/23/16 06:59 14:59 22:59 Intake Total 694.1 512.2 Output Total 251 Balance 694.1 261.2 Weight 112 lb 6.972 oz Intake: IV 0 Intake, IV Amount 214.1 232.2 Right Distal Port PICC 180 160 Right PICC 34.1 72.2 Tube Feeding 280 280 Other 200 Output: Urine 0 Urine, Voided 0 Stool 1 Urine/Stool Mix 250 Other: # Bowel Movements 1 - Medications Active Medications: Active Medications Generic Name Dose Route Start Last Admin Trade Name Freq PRN Reason Stop Dose Admin Acetaminophen 650 mg 11/23/16 00:09 11/23/16 05:57 Tylenol 650mg/20.3ml Solution Ud NG 650 mg Q6 PRN Administration temp above 101 Albuterol/Ipratropium 3 ml 11/12/16 14:00 11/23/16 13:37 Duoneb 3 Mg/0.5 Mg (3 Ml) Ud INH 3 ml RQ6 REKHA Administration Epoetin Sly 10,000 unit 11/21/16 18:30 11/23/16 10:29 Procrit IV 10,000 unit MWF REKHA Administration Hydromorphone HCl 0.5 mg 11/22/16 14:57 11/22/16 15:20 Dilaudid IVP 0.5 mg Q6H PRN Administration Pain, severe (8-10) Norepinephrine Bitartrate 4 mg 254 mls @ 15.24 mls/hr 11/16/16 20:28 00:24 / Sodium Chloride IV 0.99 mcg/min .[id number] PRN 3.8 mls/hr TITRATE PER MD ORDER Titration Protocol 4 MCG/MIN Piperacillin Sod/Tazobactam Sod 2.25 gm in 50 mls @ 100 mls/hr 11/17/16 18:00 11/23/16 05:58 Zosyn 2.25 Gm Iv Premix IVPB 100 mls/hr Q6H REKHA Administration Insulin Human Regular 0 unit 11/16/16 12:00 11/23/16 05:55 Novolin R SC Not Given Q6 REKHA Protocol Levothyroxine Sodium 175 mcg 11/18/16 06:30 11/23/16 05:58 Synthroid PO 175 mcg DAILY@0630 REKHA Administration Pantoprazole Sodium 40 mg 11/05/16 11:15 11/22/16 10:35 Protonix Inj IVP 40 mg DAILY REKHA Administration - Patient Studies Lab Studies: Lab Studies 11/23/16 11/23/16 11/23/16 Range/Units 11:56 06:23 06:21 WBC 15.2 H (4.8-10.8) K/uL RBC 2.94 L (3.80-5.20) Mil/uL Hgb 9.1 L (11.0-16.0) g/dL Hct 27.4 L (34.0-47.0) % MCV 93.1 (81.0-99.0) fL MCH 30.9 (27.0-31.0) pg MCHC 33.2 (33.0-37.0) g/dL RDW 18.0 H (11.5-14.5) % Plt Count 34 L (130-400) K/uL MPV 10.8 (7.2-11.7) fL Neut % (Auto) 80.7 H (50.0-75.0) % Lymph % (Auto) 8.9 L (20.0-40.0) % [place] % (Auto) 8.2 (0.0-10.0) % Eos % (Auto) 0.8 (0.0-4.0) % Baso % (Auto) 1.4 (0.0-2.0) % Neut # 12.2 H (1.8-7.0) K/uL Lymph # 1.3 (1.0-4.3) K/uL [place] # 1.2 H (0.0-0.8) K/uL Eos # 0.1 (0.0-0.7) K/uL Baso # 0.2 (0.0-0.2) K/uL Neutrophils % (Manual) 85 H (50-75) % Band Neutrophils % 3 H (0-2) % Lymphocytes % (Manual) 4 L (20-40) % Monocytes % (Manual) 7 (0-10) % Basophils % (Manual) 1 (0-2) % Nucleated RBC % 1 H (0-0) % Toxic Granulation Present Platelet Estimate Decreased L (NORMAL) Large Platelets Present Hypochromasia (manual) Slight Poikilocytosis (manual Slight Anisocytosis (manual) Slight Puncture Site pCO2 (35-45) mm/Hg pO2 (80-100) mm/Hg HCO3 (21-28) mmol/L ABG pH (7.35-7.45) ABG Total CO2 (22-28) mmol/L ABG O2 Saturation (95-98) % ABG Base Excess (-2.0-3.0) mmol/L ABG Hemoglobin (11.7-17.4) g/dL ABG Carboxyhemoglobin (0.5-1.5) % POC ABG HHb (Measured) (0.0-5.0) % ABG Methemoglobin (0.0-3.0) % [place] Test A-a O2 Difference mm/Hg Respiratory Index Hgb O2 Saturation (95.0-98.0) % Vent Mode Mechanical Rate FiO2 % Tidal Volume PEEP Sodium 137 (132-148) mmol/L Potassium 3.4 L (3.6-5.2) mmol/L Chloride 95 L (98-107) mmol/L Carbon Dioxide 24 (22-30) mmol/L Anion Gap 21 H (10-20) BUN 21 H (7-17) mg/dL Creatinine 1.6 H (0.7-1.2) MG/DL Est GFR ( Amer) 38 Est GFR (Non-Af Amer) 32 POC Glucose (mg/dL) 189 H (65-110) mg/dL Random Glucose 200 H (65-105) mg/dL Calcium 9.2 (8.6-10.4) mg/dl Phosphorus 2.8 (2.5-4.5) mg/dL Magnesium 1.5 L (1.6-2.3) mg/dL Total Bilirubin 10.0 H (0.2-1.3) mg/dL AST 37 H (14-36) U/L ALT 25 (9-52) U/L Alkaline Phosphatase 253 H D (38-126) U/L Total Protein 6.2 L (6.3-8.3) g/dL Albumin 2.2 L (3.5-5.0) g/dL Globulin 3.9 (2.2-3.9) gm/dL Albumin/Globulin Ratio 0.6 L (1.0-2.1) 11/23/16 11/23/16 11/22/16 Range/Units 05:50 05:28 23:49 WBC (4.8-10.8) K/uL RBC (3.80-5.20) Mil/uL Hgb (11.0-16.0) g/dL Hct (34.0-47.0) % MCV (81.0-99.0) fL MCH (27.0-31.0) pg MCHC (33.0-37.0) g/dL RDW (11.5-14.5) % Plt Count (130-400) K/uL MPV (7.2-11.7) fL Neut % (Auto) (50.0-75.0) % Lymph % (Auto) (20.0-40.0) % [place] % (Auto) (0.0-10.0) % Eos % (Auto) (0.0-4.0) % Baso % (Auto) (0.0-2.0) % Neut # (1.8-7.0) K/uL Lymph # (1.0-4.3) K/uL [place] # (0.0-0.8) K/uL Eos # (0.0-0.7) K/uL Baso # (0.0-0.2) K/uL Neutrophils % (Manual) (50-75) % Band Neutrophils % (0-2) % Lymphocytes % (Manual) (20-40) % Monocytes % (Manual) (0-10) % Basophils % (Manual) (0-2) % Nucleated RBC % (0-0) % Toxic Granulation Platelet Estimate (NORMAL) Large Platelets Hypochromasia (manual) Poikilocytosis (manual Anisocytosis (manual) Puncture Site Rr pCO2 32 L (35-45) mm/Hg pO2 86 (80-100) mm/Hg HCO3 24.4 (21-28) mmol/L ABG pH 7.46 H (7.35-7.45) ABG Total CO2 23.8 (22-28) mmol/L ABG O2 Saturation 99.6 H (95-98) % ABG Base Excess -0.7 (-2.0-3.0) mmol/L ABG Hemoglobin 8.7 L (11.7-17.4) g/dL ABG Carboxyhemoglobin 2.4 H (0.5-1.5) % POC ABG HHb (Measured) 0.4 (0.0-5.0) % ABG Methemoglobin 1.3 (0.0-3.0) % [place] Test Pos A-a O2 Difference 231.0 mm/Hg Respiratory Index 2.7 Hgb O2 Saturation 95.9 (95.0-98.0) % Vent Mode Prvc Mechanical Rate 14 FiO2 50.0 % Tidal Volume 350 PEEP 5 Sodium (132-148) mmol/L Potassium (3.6-5.2) mmol/L Chloride (98-107) mmol/L Carbon Dioxide (22-30) mmol/L Anion Gap (10-20) BUN (7-17) mg/dL Creatinine (0.7-1.2) MG/DL Est GFR ( Amer) Est GFR (Non-Af Amer) POC Glucose (mg/dL) 240 H 179 H (65-110) mg/dL Random Glucose (65-105) mg/dL Calcium (8.6-10.4) mg/dl Phosphorus (2.5-4.5) mg/dL Magnesium (1.6-2.3) mg/dL Total Bilirubin (0.2-1.3) mg/dL AST (14-36) U/L ALT (9-52) U/L Alkaline Phosphatase (38-126) U/L Total Protein (6.3-8.3) g/dL Albumin (3.5-5.0) g/dL Globulin (2.2-3.9) gm/dL Albumin/Globulin Ratio (1.0-2.1) 11/22/16 Range/Units 17:36 WBC (4.8-10.8) K/uL RBC (3.80-5.20) Mil/uL Hgb (11.0-16.0) g/dL Hct (34.0-47.0) % MCV (81.0-99.0) fL MCH (27.0-31.0) pg MCHC (33.0-37.0) g/dL RDW (11.5-14.5) % Plt Count (130-400) K/uL MPV (7.2-11.7) fL Neut % (Auto) (50.0-75.0) % Lymph % (Auto) (20.0-40.0) % [place] % (Auto) (0.0-10.0) % Eos % (Auto) (0.0-4.0) % Baso % (Auto) (0.0-2.0) % Neut # (1.8-7.0) K/uL Lymph # (1.0-4.3) K/uL [place] # (0.0-0.8) K/uL Eos # (0.0-0.7) K/uL Baso # (0.0-0.2) K/uL Neutrophils % (Manual) (50-75) % Band Neutrophils % (0-2) % Lymphocytes % (Manual) (20-40) % Monocytes % (Manual) (0-10) % Basophils % (Manual) (0-2) % Nucleated RBC % (0-0) % Toxic Granulation Platelet Estimate (NORMAL) Large Platelets Hypochromasia (manual) Poikilocytosis (manual Anisocytosis (manual) Puncture Site pCO2 (35-45) mm/Hg pO2 (80-100) mm/Hg HCO3 (21-28) mmol/L ABG pH (7.35-7.45) ABG Total CO2 (22-28) mmol/L ABG O2 Saturation (95-98) % ABG Base Excess (-2.0-3.0) mmol/L ABG Hemoglobin (11.7-17.4) g/dL ABG Carboxyhemoglobin (0.5-1.5) % POC ABG HHb (Measured) (0.0-5.0) % ABG Methemoglobin (0.0-3.0) % [place] Test A-a O2 Difference mm/Hg Respiratory Index Hgb O2 Saturation (95.0-98.0) % Vent Mode Mechanical Rate FiO2 % Tidal Volume PEEP Sodium (132-148) mmol/L Potassium (3.6-5.2) mmol/L Chloride (98-107) mmol/L Carbon Dioxide (22-30) mmol/L Anion Gap (10-20) BUN (7-17) mg/dL Creatinine (0.7-1.2) MG/DL Est GFR ( Amer) Est GFR (Non-Af Amer) POC Glucose (mg/dL) 148 H (65-110) mg/dL Random Glucose (65-105) mg/dL Calcium (8.6-10.4) mg/dl Phosphorus (2.5-4.5) mg/dL Magnesium (1.6-2.3) mg/dL Total Bilirubin (0.2-1.3) mg/dL AST (14-36) U/L ALT (9-52) U/L Alkaline Phosphatase (38-126) U/L Total Protein (6.3-8.3) g/dL Albumin (3.5-5.0) g/dL Globulin (2.2-3.9) gm/dL Albumin/Globulin Ratio (1.0-2.1) Laboratory Results - last 24 hr 11/22/16 11/22/16 11/23/16 17:36 23:49 05:28 WBC RBC Hgb Hct MCV MCH MCHC RDW Plt Count MPV Neut % (Auto) Lymph % (Auto) [place] % (Auto) Eos % (Auto) Baso % (Auto) Neut # Lymph # [place] # Eos # Baso # Neutrophils % (Manual) Band Neutrophils % Lymphocytes % (Manual) Monocytes % (Manual) Basophils % (Manual) Nucleated RBC % Toxic Granulation Platelet Estimate Large Platelets Hypochromasia (manual) Poikilocytosis (manual Anisocytosis (manual) Puncture Site Rr pCO2 32 L pO2 86 HCO3 24.4 ABG pH 7.46 H ABG Total CO2 23.8 ABG O2 Saturation 99.6 H ABG Base Excess -0.7 ABG Hemoglobin 8.7 L ABG Carboxyhemoglobin 2.4 H POC ABG HHb (Measured) 0.4 ABG Methemoglobin 1.3 [place] Test Pos A-a O2 Difference 231.0 Respiratory Index 2.7 Hgb O2 Saturation 95.9 Vent Mode Prvc Mechanical Rate 14 FiO2 50.0 Tidal Volume 350 PEEP 5 Sodium Potassium Chloride Carbon Dioxide Anion Gap BUN Creatinine Est GFR ( Amer) Est GFR (Non-Af Amer) POC Glucose (mg/dL) 148 H 179 H Random Glucose Calcium Phosphorus Magnesium Total Bilirubin AST ALT Alkaline Phosphatase Total Protein Albumin Globulin Albumin/Globulin Ratio 11/23/16 11/23/16 11/23/16 05:50 06:21 06:23 WBC 15.2 H RBC 2.94 L Hgb 9.1 L Hct 27.4 L MCV 93.1 MCH 30.9 MCHC 33.2 RDW 18.0 H Plt Count 34 L MPV 10.8 Neut % (Auto) 80.7 H Lymph % (Auto) 8.9 L [place] % (Auto) 8.2 Eos % (Auto) 0.8 Baso % (Auto) 1.4 Neut # 12.2 H Lymph # 1.3 [place] # 1.2 H Eos # 0.1 Baso # 0.2 Neutrophils % (Manual) 85 H Band Neutrophils % 3 H Lymphocytes % (Manual) 4 L Monocytes % (Manual) 7 Basophils % (Manual) 1 Nucleated RBC % 1 H Toxic Granulation Present Platelet Estimate Decreased L Large Platelets Present Hypochromasia (manual) Slight Poikilocytosis (manual Slight Anisocytosis (manual) Slight Puncture Site pCO2 pO2 HCO3 ABG pH ABG Total CO2 ABG O2 Saturation ABG Base Excess ABG Hemoglobin ABG Carboxyhemoglobin POC ABG HHb (Measured) ABG Methemoglobin [place] Test A-a O2 Difference Respiratory Index Hgb O2 Saturation Vent Mode Mechanical Rate FiO2 Tidal Volume PEEP Sodium 137 Potassium 3.4 L Chloride 95 L Carbon Dioxide 24 Anion Gap 21 H BUN 21 H Creatinine 1.6 H Est GFR ( Amer) 38 Est GFR (Non-Af Amer) 32 POC Glucose (mg/dL) 240 H Random Glucose 200 H Calcium 9.2 Phosphorus 2.8 Magnesium 1.5 L Total Bilirubin 10.0 H AST 37 H ALT 25 Alkaline Phosphatase 253 H D Total Protein 6.2 L Albumin 2.2 L Globulin 3.9 Albumin/Globulin Ratio 0.6 L 11/23/16 11:56 WBC RBC Hgb Hct MCV MCH MCHC RDW Plt Count MPV Neut % (Auto) Lymph % (Auto) [place] % (Auto) Eos % (Auto) Baso % (Auto) Neut # Lymph # [place] # Eos # Baso # Neutrophils % (Manual) Band Neutrophils % Lymphocytes % (Manual) Monocytes % (Manual) Basophils % (Manual) Nucleated RBC % Toxic Granulation Platelet Estimate Large Platelets Hypochromasia (manual) Poikilocytosis (manual Anisocytosis (manual) Puncture Site pCO2 pO2 HCO3 ABG pH ABG Total CO2 ABG O2 Saturation ABG Base Excess ABG Hemoglobin ABG Carboxyhemoglobin POC ABG HHb (Measured) ABG Methemoglobin [place] Test A-a O2 Difference Respiratory Index Hgb O2 Saturation Vent Mode Mechanical Rate FiO2 Tidal Volume PEEP Sodium Potassium Chloride Carbon Dioxide Anion Gap BUN Creatinine Est GFR ( Amer) Est GFR (Non-Af Amer) POC Glucose (mg/dL) 189 H Random Glucose Calcium Phosphorus Magnesium Total Bilirubin AST ALT Alkaline Phosphatase Total Protein Albumin Globulin Albumin/Globulin Ratio Critical Care Progress Note - Nutrition Nutrition: Nutrition Category Date Time Status NPO Diet [DIET] Diets 11/17/16 Breakfast Active Assessment/Plan (1) Respiratory failure Current Visit: Yes Status: Acute Comment: Continue ventilatory support and reduce FiO2 as tolerated Transfuse platelets Continue feeding Monitor platelet count and H&H Prognosis poor (2) Lower GI bleed Current Visit: Yes Status: Acute (3) ESRD (end stage renal disease) on dialysis Current Visit: No Status: Chronic Attending/Attestation - Attestation I have personally seen and examined this patient.: Yes I have fully participated in the care of the patient.: Yes I have reviewed all pertinent clinical information: Yes Notes (Text): 11/23/16 17:28 Patient seen and examined in the intensive care unit. Case discussed with staff in the morning. No change in mental status No active bleeding noted Getting dialysis today On low-dose pressors Daughter signed DNR
--- NOTE | 2016-11-23 14:57 | CP.PCM.PN ---
Subjective - Date & Time of Evaluation Date of Evaluation: 11/23/16 Time of Evaluation: 14:55 - Subjective Subjective: tolerated Hd today back on levophed remains on pressors cannot obtain ROS Objective - Vital Signs/Intake and Output Vital Signs (last 24 hours): Temp Pulse Resp BP Pulse Ox 99.3 F 107 H 20 101/49 L 100 11/23/16 09:19 11/23/16 14:04 11/23/16 14:04 11/23/16 14:04 11/23/16 14:04 Intake and Output: 11/23/16 11/23/16 06:59 18:59 Intake Total 940.6 512.2 Output Total 251 Balance 940.6 261.2 - Medications Medications: Current Medications Acetaminophen (Tylenol 650mg/20.3ml Solution Ud) 650 mg NG Q6 PRN PRN Reason: temp above 101 Last Admin: 11/23/16 05:57 Dose: 650 mg Albuterol/Ipratropium (Duoneb 3 Mg/0.5 Mg (3 Ml) Ud) 3 ml INH RQ6 [facility] Last Admin: 11/23/16 13:37 Dose: 3 ml Epoetin Sly (Procrit) 10,000 unit IV MWF [facility] Last Admin: 11/23/16 10:29 Dose: 10,000 unit Hydromorphone HCl (Dilaudid) 0.5 mg IVP Q6H PRN PRN Reason: Pain, severe (8-10) Last Admin: 11/22/16 15:20 Dose: 0.5 mg Norepinephrine Bitartrate 4 mg (/ Sodium Chloride) 254 mls @ 15.24 mls/hr IV .[id number] PRN; Protocol; 4 MCG/MIN PRN Reason: TITRATE PER MD ORDER Last Titration: 11/23/16 00:24 Dose: 0.99 mcg/min, 3.8 mls/hr Piperacillin Sod/Tazobactam Sod (Zosyn 2.25 Gm Iv Premix) 2.25 gm in 50 mls @ 100 mls/hr IVPB Q6H [facility] Last Admin: 11/23/16 05:58 Dose: 100 mls/hr Insulin Human Regular (Novolin R) 0 unit SC Q6 [facility] PRN Reason: Protocol Last Admin: 11/23/16 05:55 Dose: Not Given Levothyroxine Sodium (Synthroid) 175 mcg PO DAILY@0630 [facility] Last Admin: 11/23/16 05:58 Dose: 175 mcg Pantoprazole Sodium (Protonix Inj) 40 mg IVP DAILY [facility] Last Admin: 11/22/16 10:35 Dose: 40 mg - Labs Labs: 11/23/16 06:23 11/23/16 06:21 PT 19.5 SECONDS (9.7-12.2) H 10/28/16 08:07 INR 1.7 10/28/16 08:07 APTT 49 SECONDS (21-34) H 10/25/16 16:33 - Constitutional Appears: Chronically Ill - Head Exam Additional comments: on vent - ENT Exam ENT Exam: Mucous Membranes Dry - Neck Exam Neck Exam: Full ROM - Respiratory Exam Respiratory Exam: Decreased Breath Sounds. absent: Accessory Muscle Use - Cardiovascular Exam Cardiovascular Exam: absent: Clicks, Rubs - GI/Abdominal Exam GI & Abdominal Exam: Distended. absent: Tenderness - Extremities Exam Extremities Exam: Pedal Edema Additional comments: necrosis of tips of fingers and toes - Neurological Exam Neurological Exam: absent: Alert Assessment and Plan - Assessment and Plan (Free Text) Assessment: vdrf chronic hypotension esrd continue HD support
--- NOTE | 2016-11-23 20:32 | CP.PCM.PN ---
Subjective - Date & Time of Evaluation Date of Evaluation: 11/23/16 Time of Evaluation: 20:32 - Subjective Subjective: Patient is condition still worsening at this time. Hypoxia or hypotension noted. Family signed DNR. We'll continue the supportive care. Overall prognosis is poor Objective - Vital Signs/Intake and Output Vital Signs (last 24 hours): Temp Pulse Resp BP Pulse Ox 98.5 F 105 H 18 108/58 L 100 11/23/16 18:00 11/23/16 18:00 11/23/16 18:00 11/23/16 17:49 11/23/16 18:00 Intake and Output: 11/23/16 11/24/16 18:59 06:59 Intake Total 767.8 Output Total 252 Balance 515.8 - Medications Medications: Current Medications Acetaminophen (Tylenol 650mg/20.3ml Solution Ud) 650 mg NG Q6 PRN PRN Reason: temp above 101 Last Admin: 11/23/16 05:57 Dose: 650 mg Albuterol/Ipratropium (Duoneb 3 Mg/0.5 Mg (3 Ml) Ud) 3 ml INH RQ6 [facility] Last Admin: 11/23/16 19:18 Dose: 3 ml Epoetin Sly (Procrit) 10,000 unit IV MWF [facility] Last Admin: 11/23/16 10:29 Dose: 10,000 unit Hydromorphone HCl (Dilaudid) 0.5 mg IVP Q6H PRN PRN Reason: Pain, severe (8-10) Last Admin: 11/22/16 15:20 Dose: 0.5 mg Norepinephrine Bitartrate 4 mg (/ Sodium Chloride) 254 mls @ 15.24 mls/hr IV .[id number] PRN; Protocol; 4 MCG/MIN PRN Reason: TITRATE PER MD ORDER Last Titration: 11/23/16 09:30 Dose: 2.99 mcg/min, 11.4 mls/hr Insulin Human Regular (Novolin R) 0 unit SC Q6 [facility] PRN Reason: Protocol Last Admin: 11/23/16 18:10 Dose: Not Given Levothyroxine Sodium (Synthroid) 175 mcg PO DAILY@0630 [facility] Last Admin: 11/23/16 05:58 Dose: 175 mcg Pantoprazole Sodium (Protonix Inj) 40 mg IVP DAILY [facility] Last Admin: 11/23/16 14:09 Dose: 40 mg - Labs Labs: 11/23/16 06:23 11/23/16 06:21 PT 19.5 SECONDS (9.7-12.2) H 10/28/16 08:07 INR 1.7 10/28/16 08:07 APTT 49 SECONDS (21-34) H 10/25/16 16:33
--- NOTE | 2016-11-23 23:23 | CP.PCM.PN ---
Subjective - Date & Time of Evaluation Date of Evaluation: 11/23/16 Time of Evaluation: 10:05 - Subjective Subjective: Patient seen and evaluated Condition remains poor Objective - Vital Signs/Intake and Output Vital Signs (last 24 hours): Temp Pulse Resp BP Pulse Ox 98.5 F 105 H 18 108/58 L 100 11/23/16 18:00 11/23/16 18:00 11/23/16 18:00 11/23/16 17:49 11/23/16 18:00 Intake and Output: 11/23/16 11/24/16 18:59 06:59 Intake Total 767.8 Output Total 252 Balance 515.8 - Medications Medications: Current Medications Acetaminophen (Tylenol 650mg/20.3ml Solution Ud) 650 mg NG Q6 PRN PRN Reason: temp above 101 Last Admin: 11/23/16 05:57 Dose: 650 mg Albuterol/Ipratropium (Duoneb 3 Mg/0.5 Mg (3 Ml) Ud) 3 ml INH RQ6 [facility] Last Admin: 11/23/16 19:18 Dose: 3 ml Epoetin Sly (Procrit) 10,000 unit IV MWF [facility] Last Admin: 11/23/16 10:29 Dose: 10,000 unit Hydromorphone HCl (Dilaudid) 0.5 mg IVP Q6H PRN PRN Reason: Pain, severe (8-10) Last Admin: 11/22/16 15:20 Dose: 0.5 mg Norepinephrine Bitartrate 4 mg (/ Sodium Chloride) 254 mls @ 15.24 mls/hr IV .[id number] PRN; Protocol; 4 MCG/MIN PRN Reason: TITRATE PER MD ORDER Last Titration: 11/23/16 09:30 Dose: 2.99 mcg/min, 11.4 mls/hr Insulin Human Regular (Novolin R) 0 unit SC Q6 [facility] PRN Reason: Protocol Last Admin: 11/23/16 18:10 Dose: Not Given Levothyroxine Sodium (Synthroid) 175 mcg PO DAILY@0630 [facility] Last Admin: 11/23/16 05:58 Dose: 175 mcg Pantoprazole Sodium (Protonix Inj) 40 mg IVP DAILY [facility] Last Admin: 11/23/16 14:09 Dose: 40 mg - Labs Labs: 11/23/16 06:23 11/23/16 06:21 PT 19.5 SECONDS (9.7-12.2) H 10/28/16 08:07 INR 1.7 10/28/16 08:07 APTT 49 SECONDS (21-34) H 10/25/16 16:33
[2016-11-24] MEDS: Albuterol-Ipratrop 3 mg / 0.5 (3 ml) UD INH SCH ×4 (01:24→19:16)
[2016-11-24] MEDS: (Novolin R) Insulin Human Regular 100 units/ml vial SC SCH ×3 (06:27→18:24)
[2016-11-24] MEDS: Levothyroxine 175 MCG TAB PO SCH (06:28)
[2016-11-24 06:47] LABS: BASO # 0.4 K/uL (0.0-0.2); EOS # 0.2 K/uL (0.0-0.7); HEMATOCRIT 27.9 % (34.0-47.0); LYMPH # 1.6 K/uL (1.0-4.3); LYMPH % 8.6 % (20.0-40.0); MEAN CELL VOLUME 94.2 fL (81.0-99.0); MEAN CORPUSCULAR HEMOGLOBIN 32.1 pg (27.0-31.0); MEAN CORPUSCULAR HGB CONC 34.1 g/dL (33.0-37.0); MEAN PLATELET VOLUME 11.3 fL (7.2-11.7); MONO # 1.3 K/uL (0.0-0.8); MONO % 6.8 % (0.0-10.0); NRBC % 0.1 % (0.0-2.0); PLATELET COUNT 44 K/uL (130-400); RED CELL DISTRIBUTION WIDTH 18.6 % (11.5-14.5); WHITE BLOOD COUNT 18.4 K/uL (4.8-10.8)
[2016-11-24 06:52] LABS: ALB/GLOB RATIO 0.6 (1.0-2.1); BILIRUBIN,TOTAL 10.7 mg/dL (0.2-1.3); CALCIUM 9.4 mg/dl (8.6-10.4); MAGNESIUM 1.7 mg/dL (1.6-2.3); PHOSPHOROUS 2.2 mg/dL (2.5-4.5); POTASSIUM 3.4 mmol/L (3.6-5.2); TOTAL PROTEIN 6.3 g/dL (6.3-8.3)
[2016-11-24 08:14] LABS: NEUTROPHIL 87 % (50-75); NUCLEATED RED BLOOD CELL 1 % (0-0); TOTAL CELLS COUNTED 100
[2016-11-24 08:16] LABS: LARGE PLATELETS PRESENT
--- NOTE | 2016-11-24 09:20 | RAD ---
HISTORY: intubated COMPARISON: 11/04/2016 FINDINGS: LUNGS: Tracheostomy tube in place. . NG tube extending into the stomach. Other lines and tubes stable position. Moderate to severe venous congestion with confluent airspace opacities in the mid to lower lung zones with moderate loculated right and small left pleural effusion. PLEURA: As above. CARDIOVASCULAR: Status post median sternotomy. Calcification at the aortic knob. OSSEOUS STRUCTURES: Degenerative changes in the spine and shoulders. VISUALIZED UPPER ABDOMEN: Left axillary stent in place. OTHER FINDINGS: IMPRESSION: No significant interval change.
--- NOTE | 2016-11-24 10:11 | CP.PCM.PN ---
Subjective - Date & Time of Evaluation Date of Evaluation: 11/23/16 Time of Evaluation: 11:00 - Subjective Subjective: Patient offers no complaints due to condition. Patient daughter at bed side. As per nursing , patient's daughter had decided on Code status and I was called to finalize the process of singing DNR Objective - Vital Signs/Intake and Output Vital Signs (last 24 hours): Temp Pulse Resp BP Pulse Ox 98.9 F 100 H 17 108/48 L 94 L 11/24/16 04:00 11/24/16 07:30 11/24/16 07:30 11/24/16 07:22 11/24/16 07:30 Intake and Output: 11/24/16 11/24/16 06:59 18:59 Intake Total 1036.8 66.4 Output Total 0 0 Balance 1036.8 66.4 - Medications Medications: Current Medications Acetaminophen (Tylenol 650mg/20.3ml Solution Ud) 650 mg NG Q6 PRN PRN Reason: temp above 101 Last Admin: 11/23/16 05:57 Dose: 650 mg Albuterol/Ipratropium (Duoneb 3 Mg/0.5 Mg (3 Ml) Ud) 3 ml INH RQ6 [facility] Last Admin: 11/24/16 07:19 Dose: 3 ml Epoetin Sly (Procrit) 10,000 unit IV MWF [facility] Last Admin: 11/23/16 10:29 Dose: 10,000 unit Hydromorphone HCl (Dilaudid) 0.5 mg IVP Q6H PRN PRN Reason: Pain, severe (8-10) Last Admin: 11/22/16 15:20 Dose: 0.5 mg Norepinephrine Bitartrate 4 mg (/ Sodium Chloride) 254 mls @ 15.24 mls/hr IV .[id number] PRN; Protocol; 4 MCG/MIN PRN Reason: TITRATE PER MD ORDER Last Admin: 11/23/16 23:20 Dose: 2.99 mcg/min, 11.39 mls/hr Insulin Human Regular (Novolin R) 0 unit SC Q6 [facility] PRN Reason: Protocol Last Admin: 11/24/16 06:27 Dose: Not Given Levothyroxine Sodium (Synthroid) 175 mcg PO DAILY@0630 [facility] Last Admin: 11/24/16 06:28 Dose: 175 mcg Pantoprazole Sodium (Protonix Inj) 40 mg IVP DAILY [facility] Last Admin: 11/23/16 14:09 Dose: 40 mg - Labs Labs: 11/24/16 06:32 11/24/16 06:32 PT 19.5 SECONDS (9.7-12.2) H 10/28/16 08:07 INR 1.7 10/28/16 08:07 APTT 49 SECONDS (21-34) H 10/25/16 16:33 - Constitutional Appears: Chronically Ill - ENT Exam ENT Exam: Mucous Membranes Dry - Neck Exam Neck Exam: Normal Inspection Additional comments: Tracheostomy - Respiratory Exam Respiratory Exam: NORMAL BREATHING PATTERN Additional comments: On MV support - Cardiovascular Exam Cardiovascular Exam: Tachycardia, Irregular Rhythm - GI/Abdominal Exam GI & Abdominal Exam: Hypoactive Bowel Sounds Additional comments: NGT for feedings - Rectal Exam Rectal Exam: Deferred - Back Exam Back Exam: NORMAL INSPECTION - Neurological Exam Neurological Exam: Alert, Altered Neuro motor strength exam: Left Upper Extremity: 2/1, Right Upper Extremity: 2/1 , Left Lower Extremity: 2/1, Right Lower Extremity: 2/1 - Psychiatric Exam Psychiatric exam: Flat Affect - Skin Skin Exam: Dry, Normal Color, Warm Assessment and Plan - Assessment and Plan (Free Text) Assessment: Patient is alert, lethargic, makes eye contacts when aroused, sleeps most of the time. Patient's condition is declining as time passes by. Patient is fed via NGT, she has been bedridden for a very long time, patient is unable to speak due to trach. Clinically patient presents in very poor condition. The prognosis remains poor. Patient has lost quality of life despite all reasonable interventions applied to support life. Meaningfull recovery, unfortunately is not expected. As per record, Restaurant Shift Supervisor had discussed the Code status with patient's daughter Marc, as the ICU team my self included had dome many times in the past. Apparently the daughter came to realize that there was not much left for the medical team to offer except the comfort measures. I was called by Jazmine CORRIGAN to further discuss Code status with the daughter. The daughter admits that she never had discussion with her mother about the end of life care. She felt she had to fight hard for her mother's life. I reassured her that we had done the same so far. At this point after discussion her mother' s condition and prognosis with Doctor Ruthy, daughter came to realize that further agressive interventions including but not limited to, CPR would only bring more suffering for her already frail mother. She asked for CPR to be with tobias if it should be needed. I supported her decision and assisted with completing the POLST, calling for DNR. This was shared with ICU team. Goals of care further discussed. The daughter wishes her mother get stable for the feeding tube insertion and to be transferred home under the hospice care. I reassured her that I would share her intent with the rest of the time. Impression * This is a very sick patient at the end stage of her life * Prognosis remains poor * patient's daughter had fought for long time and came to realize that further agressive interventions would only bring more suffering for her other * Daughter asked for the CPR be with held if it should be a need * Daughter wishes for patient to get feeding tube if possible and be transferred home under the hospice care Suggestion * DNR * Supportive care
--- NOTE | 2016-11-24 11:46 | CP.CCUPN ---
<JeromeCyndieMonica VickyLalita - Last Filed: 11/24/16 12:44> CCU Subjective - Physician Review Subjective (Free Text): Patient was seen and examined at bedside in the morning. Patient is non- verbal. 11/24/16 11:44 CCU Objective - Vital Signs / Intake & Output Intake and Output (Last 8hrs): Intake & Output 11/23/16 11/24/16 11/24/16 22:59 06:59 14:59 Intake Total 511.2 771.2 66.4 Output Total 1 0 0 Balance 510.2 771.2 66.4 Intake: IV 240 Intake, IV Amount 231.2 251.2 31.4 Right Distal Port PICC 140 160 20 Right PICC 91.2 91.2 11.4 Tube Feeding 280 280 35 Output: Urine 0 0 0 Urine, Voided 0 0 0 Stool 1 Other: # Bowel Movements 0 0 0 - Physical Exam Head: Positive for: Atraumatic, Normocephalic Extroacular Muscles: Negative for: EOMI Mouth: Positive for: Dry. Negative for: Moist Mucous Membranes Nose (Internal): Positive for: Other (NGT was replaced 11/17 [address] still in [address]) Neck: Positive for: Other (trach in place) Respiratory/Chest: Positive for: Decreased Breath Sounds, Rhonchi. Negative for : Clear to Auscultation, Respiratory Distress, Accessory Muscle Use Cardiovascular: Positive for: Normal S1, S2. Negative for: Murmurs, Tachycardic , Bradycardic Abdomen: Positive for: Other (+bowel sounds). Negative for: Distention, Hernias Rectal: Positive for: Gross Blood Upper Extremity: Positive for: Cyanosis, Other (cold fingers, ischemic 2-4 digits on left hand ). Negative for: NORMAL PULSES, Neurovascularly Intact, Capillary Refill < 2s Lower Extremity: Positive for: Edema. Negative for: NORMAL PULSES Neurological: Negative for: GCS=15, Speech Normal Skin: Positive for: Cold (bilateral hands), Other (gangrenous fingertips). Negative for: Warm Psychiatric: Positive for: Other (non-verbal ). Negative for: Alert, Oriented x 3, Normal Insight, Normal Concentration - Medications Active Medications: Active Medications Generic Name Dose Route Start Last Admin Trade Name Freq PRN Reason Stop Dose Admin Acetaminophen 650 mg 11/23/16 00:09 11/23/16 05:57 Tylenol 650mg/20.3ml Solution Ud NG 650 mg Q6 PRN Administration temp above 101 Albuterol/Ipratropium 3 ml 11/12/16 14:00 11/24/16 07:19 Duoneb 3 Mg/0.5 Mg (3 Ml) Ud INH 3 ml RQ6 [facility] Administration Epoetin Sly 10,000 unit 11/21/16 18:30 11/23/16 10:29 Procrit IV 10,000 unit MWF [facility] Administration Hydromorphone HCl 0.5 mg 11/22/16 14:57 11/22/16 15:20 Dilaudid IVP 0.5 mg Q6H PRN Administration Pain, severe (8-10) Norepinephrine Bitartrate 4 mg 254 mls @ 15.24 mls/hr 11/16/16 20:28 23:20 / Sodium Chloride IV 2.99 mcg/min .[id number] PRN 11.39 mls/hr TITRATE PER MD ORDER Administration Protocol 4 MCG/MIN Insulin Human Regular 0 unit 11/16/16 12:00 11/24/16 06:27 Novolin R SC Not Given Q6 [facility] Protocol Levothyroxine Sodium 175 mcg 11/18/16 06:30 11/24/16 06:28 Synthroid PO 175 mcg DAILY@0630 [facility] Administration Pantoprazole Sodium 40 mg 11/05/16 11:15 11/23/16 14:09 Protonix Inj IVP 40 mg DAILY [facility] Administration - Patient Studies Lab Studies: Lab Studies 11/24/16 11/24/16 11/24/16 Range/Units 06:32 06:32 06:11 WBC 18.4 H (4.8-10.8) K/uL RBC 2.96 L (3.80-5.20) Mil/uL Hgb 9.5 L (11.0-16.0) g/dL Hct 27.9 L (34.0-47.0) % MCV 94.2 (81.0-99.0) fL MCH 32.1 H (27.0-31.0) pg MCHC 34.1 (33.0-37.0) g/dL RDW 18.6 H (11.5-14.5) % Plt Count 44 L (130-400) K/uL MPV 11.3 (7.2-11.7) fL Neut % (Auto) 81.6 H (50.0-75.0) % Lymph % (Auto) 8.6 L (20.0-40.0) % Loup % (Auto) 6.8 (0.0-10.0) % Eos % (Auto) 1.0 (0.0-4.0) % Baso % (Auto) 2.0 (0.0-2.0) % Neut # 15.1 H (1.8-7.0) K/uL Lymph # 1.6 (1.0-4.3) K/uL Loup # 1.3 H (0.0-0.8) K/uL Eos # 0.2 (0.0-0.7) K/uL Baso # 0.4 H (0.0-0.2) K/uL Neutrophils % (Manual) 87 H (50-75) % Lymphocytes % (Manual) 9 L (20-40) % Monocytes % (Manual) 4 (0-10) % Nucleated RBC % 1 H (0-0) % Platelet Estimate Decreased L (NORMAL) Large Platelets Present Hypochromasia (manual) Slight Poikilocytosis (manual Slight Anisocytosis (manual) Slight Macrocytosis (manual) Slight Target Cells Slight Sodium 140 (132-148) mmol/L Potassium 3.4 L (3.6-5.2) mmol/L Chloride 97 L (98-107) mmol/L Carbon Dioxide 23 (22-30) mmol/L Anion Gap 23 H (10-20) BUN 16 (7-17) mg/dL Creatinine 1.2 (0.7-1.2) MG/DL Est GFR ( Amer) 53 Est GFR (Non-Af Amer) 44 POC Glucose (mg/dL) 140 H (65-110) mg/dL Random Glucose 137 H (65-105) mg/dL Calcium 9.4 (8.6-10.4) mg/dl Phosphorus 2.2 L (2.5-4.5) mg/dL Magnesium 1.7 (1.6-2.3) mg/dL Total Bilirubin 10.7 H (0.2-1.3) mg/dL AST 39 H (14-36) U/L ALT 20 (9-52) U/L Alkaline Phosphatase 254 H (38-126) U/L Total Protein 6.3 (6.3-8.3) g/dL Albumin 2.4 L (3.5-5.0) g/dL Globulin 3.9 (2.2-3.9) gm/dL Albumin/Globulin Ratio 0.6 L (1.0-2.1) 11/23/16 11/23/16 11/23/16 Range/Units 23:57 17:41 11:56 WBC (4.8-10.8) K/uL RBC (3.80-5.20) Mil/uL Hgb (11.0-16.0) g/dL Hct (34.0-47.0) % MCV (81.0-99.0) fL MCH (27.0-31.0) pg MCHC (33.0-37.0) g/dL RDW (11.5-14.5) % Plt Count (130-400) K/uL MPV (7.2-11.7) fL Neut % (Auto) (50.0-75.0) % Lymph % (Auto) (20.0-40.0) % Loup % (Auto) (0.0-10.0) % Eos % (Auto) (0.0-4.0) % Baso % (Auto) (0.0-2.0) % Neut # (1.8-7.0) K/uL Lymph # (1.0-4.3) K/uL Loup # (0.0-0.8) K/uL Eos # (0.0-0.7) K/uL Baso # (0.0-0.2) K/uL Neutrophils % (Manual) (50-75) % Lymphocytes % (Manual) (20-40) % Monocytes % (Manual) (0-10) % Nucleated RBC % (0-0) % Platelet Estimate (NORMAL) Large Platelets Hypochromasia (manual) Poikilocytosis (manual Anisocytosis (manual) Macrocytosis (manual) Target Cells Sodium (132-148) mmol/L Potassium (3.6-5.2) mmol/L Chloride (98-107) mmol/L Carbon Dioxide (22-30) mmol/L Anion Gap (10-20) BUN (7-17) mg/dL Creatinine (0.7-1.2) MG/DL Est GFR ( Amer) Est GFR (Non-Af Amer) POC Glucose (mg/dL) 178 H 131 H 189 H (65-110) mg/dL Random Glucose (65-105) mg/dL Calcium (8.6-10.4) mg/dl Phosphorus (2.5-4.5) mg/dL Magnesium (1.6-2.3) mg/dL Total Bilirubin (0.2-1.3) mg/dL AST (14-36) U/L ALT (9-52) U/L Alkaline Phosphatase (38-126) U/L Total Protein (6.3-8.3) g/dL Albumin (3.5-5.0) g/dL Globulin (2.2-3.9) gm/dL Albumin/Globulin Ratio (1.0-2.1) Laboratory Results - last 24 hr 11/23/16 11/23/16 11/23/16 11:56 17:41 23:57 WBC RBC Hgb Hct MCV MCH MCHC RDW Plt Count MPV Neut % (Auto) Lymph % (Auto) Loup % (Auto) Eos % (Auto) Baso % (Auto) Neut # Lymph # Loup # Eos # Baso # Neutrophils % (Manual) Lymphocytes % (Manual) Monocytes % (Manual) Nucleated RBC % Platelet Estimate Large Platelets Hypochromasia (manual) Poikilocytosis (manual Anisocytosis (manual) Macrocytosis (manual) Target Cells Sodium Potassium Chloride Carbon Dioxide Anion Gap BUN Creatinine Est GFR ( Amer) Est GFR (Non-Af Amer) POC Glucose (mg/dL) 189 H 131 H 178 H Random Glucose Calcium Phosphorus Magnesium Total Bilirubin AST ALT Alkaline Phosphatase Total Protein Albumin Globulin Albumin/Globulin Ratio 11/24/16 11/24/16 11/24/16 06:11 06:32 06:32 WBC 18.4 H RBC 2.96 L Hgb 9.5 L Hct 27.9 L MCV 94.2 MCH 32.1 H MCHC 34.1 RDW 18.6 H Plt Count 44 L MPV 11.3 Neut % (Auto) 81.6 H Lymph % (Auto) 8.6 L Loup % (Auto) 6.8 Eos % (Auto) 1.0 Baso % (Auto) 2.0 Neut # 15.1 H Lymph # 1.6 Loup # 1.3 H Eos # 0.2 Baso # 0.4 H Neutrophils % (Manual) 87 H Lymphocytes % (Manual) 9 L Monocytes % (Manual) 4 Nucleated RBC % 1 H Platelet Estimate Decreased L Large Platelets Present Hypochromasia (manual) Slight Poikilocytosis (manual Slight Anisocytosis (manual) Slight Macrocytosis (manual) Slight Target Cells Slight Sodium 140 Potassium 3.4 L Chloride 97 L Carbon Dioxide 23 Anion Gap 23 H BUN 16 Creatinine 1.2 Est GFR ( Amer) 53 Est GFR (Non-Af Amer) 44 POC Glucose (mg/dL) 140 H Random Glucose 137 H Calcium 9.4 Phosphorus 2.2 L Magnesium 1.7 Total Bilirubin 10.7 H AST 39 H ALT 20 Alkaline Phosphatase 254 H Total Protein 6.3 Albumin 2.4 L Globulin 3.9 Albumin/Globulin Ratio 0.6 L Fingerstick Blood Sugar Results: 146 Review of Systems - Review of Systems Systems not reviewed;Unavailable: Intubated Critical Care Progress Note - Vent Settings TIDAL VOLUME:: 350 RESP RATE:: 14 FIO2:: 50 PEEP:: 5 - Nutrition Nutrition: Nutrition Category Date Time Status NPO Diet [DIET] Diets 11/17/16 Breakfast Active Assessment/Plan - Assessment and Plan (Free Text) Assessment: 76 female patient admitted for GI bleed; s/p flexible sigmoidoscopy and multiple transfusions. Patient was transferred from the medical floor to the ICU because patient was noted to have a hypotensive state, bradycardia and mucus secretions. Neuro: - GCS 9T - at baseline likely secondary to metabolic encephalopathy - Patient in non-verbal Pulm: - Chronic Respiratory failure - Intubated - Vent settings: FiO2 50, Tidal Volume 350, RR 14, PEEP 5 CV: - Septic Shock - BP mildly improved - systolic now in the 90s - Norepinephrine IV 4mcg/min - Dr Long on board. Pt high risk for any procedure but can proceed if clinical indicated - Left hand with ischemic necrosis - consult placed for vascular surgery, as per Dr Buck - likely nothing to do Heme: - Will continue to monitor H/H and for rectal bleed Renal: - ESRD - HD as per Dr Mcfarland - Dr Trent on consult --> help appreciated Endo: -Insulin sliding scale - patient's daughter refuses insulin GI: Ischemic colitis with hemorrhage, not a candidate for intervention as this would be medically futile. - NGT placed 11/17 - Tube Feeding - f/u PEG tube placement -IR Consult: Dr. Walker --> help appreciated - As per Dr. Walker, plan is to place on a g-tube once patient is hemodynamically stable and coagulopathy is corrected. - Protonix for GI bleed - GI Consult: Dr. Young --> help appreciated - Dilaudid 0.5mg IV Q6 PRN ID: - Septic Shock - Meropenem was discontinued 11/07 (patient received a 13 day course) - Trach - sputum culture: Gram + Cocci - Zosyn Skin: - Wound care for occipital, left rib, sacral, and left heel ulcers DVT proph - SCDs, no anti-coagulation due to acute bleed GI proph - Protonix 40mg IVP daily Care Management Consult --> help appreciated - Usp Care Code status: DNR/DNI <Ortiz Zapien - Last Filed: 11/24/16 15:53> CCU Objective - Vital Signs / Intake & Output Intake and Output (Last 8hrs): Intake & Output 11/24/16 11/24/16 11/24/16 06:59 14:59 22:59 Intake Total 771.2 66.4 Output Total 0 0 Balance 771.2 66.4 Intake: IV 240 Intake, IV Amount 251.2 31.4 Right Distal Port PICC 160 20 Right PICC 91.2 11.4 Tube Feeding 280 35 Output: Urine 0 0 Urine, Voided 0 0 Other: # Bowel Movements 0 0 - Medications Active Medications: Active Medications Generic Name Dose Route Start Last Admin Trade Name Freq PRN Reason Stop Dose Admin Acetaminophen 650 mg 11/23/16 00:09 11/23/16 05:57 Tylenol 650mg/20.3ml Solution Ud NG 650 mg Q6 PRN Administration temp above 101 Albumin Human 12.5 gm 11/25/16 11:58 Albumin Human 25% (12.5 Gm/50 Ml) IV 11/25/16 11:59 ONCE ONE Albuterol/Ipratropium 3 ml 11/12/16 14:00 11/24/16 13:28 Duoneb 3 Mg/0.5 Mg (3 Ml) Ud INH 3 ml RQ6 [facility] Administration Epoetin Sly 10,000 unit 11/21/16 18:30 11/23/16 10:29 Procrit IV 10,000 unit MWF [facility] Administration Hydromorphone HCl 0.5 mg 11/22/16 14:57 11/22/16 15:20 Dilaudid IVP 0.5 mg Q6H PRN Administration Pain, severe (8-10) Norepinephrine Bitartrate 4 mg 254 mls @ 15.24 mls/hr 11/16/16 20:28 23:20 / Sodium Chloride IV 2.99 mcg/min .[id number] PRN 11.39 mls/hr TITRATE PER MD ORDER Administration Protocol 4 MCG/MIN Insulin Human Regular 0 unit 11/16/16 12:00 11/24/16 12:23 Novolin R SC Not Given Q6 [facility] Protocol Levothyroxine Sodium 175 mcg 11/18/16 06:30 11/24/16 06:28 Synthroid PO 175 mcg DAILY@0630 [facility] Administration Pantoprazole Sodium 40 mg 11/05/16 11:15 11/24/16 12:22 Protonix Inj IVP 40 mg DAILY [facility] Administration - Patient Studies Lab Studies: Lab Studies 11/24/16 11/24/16 11/24/16 Range/Units 06:32 06:32 06:11 WBC 18.4 H (4.8-10.8) K/uL RBC 2.96 L (3.80-5.20) Mil/uL Hgb 9.5 L (11.0-16.0) g/dL Hct 27.9 L (34.0-47.0) % MCV 94.2 (81.0-99.0) fL MCH 32.1 H (27.0-31.0) pg MCHC 34.1 (33.0-37.0) g/dL RDW 18.6 H (11.5-14.5) % Plt Count 44 L (130-400) K/uL MPV 11.3 (7.2-11.7) fL Neut % (Auto) 81.6 H (50.0-75.0) % Lymph % (Auto) 8.6 L (20.0-40.0) % Loup % (Auto) 6.8 (0.0-10.0) % Eos % (Auto) 1.0 (0.0-4.0) % Baso % (Auto) 2.0 (0.0-2.0) % Neut # 15.1 H (1.8-7.0) K/uL Lymph # 1.6 (1.0-4.3) K/uL Loup # 1.3 H (0.0-0.8) K/uL Eos # 0.2 (0.0-0.7) K/uL Baso # 0.4 H (0.0-0.2) K/uL Neutrophils % (Manual) 87 H (50-75) % Lymphocytes % (Manual) 9 L (20-40) % Monocytes % (Manual) 4 (0-10) % Nucleated RBC % 1 H (0-0) % Platelet Estimate Decreased L (NORMAL) Large Platelets Present Hypochromasia (manual) Slight Poikilocytosis (manual Slight Anisocytosis (manual) Slight Macrocytosis (manual) Slight Target Cells Slight Sodium 140 (132-148) mmol/L Potassium 3.4 L (3.6-5.2) mmol/L Chloride 97 L (98-107) mmol/L Carbon Dioxide 23 (22-30) mmol/L Anion Gap 23 H (10-20) BUN 16 (7-17) mg/dL Creatinine 1.2 (0.7-1.2) MG/DL Est GFR ( Amer) 53 Est GFR (Non-Af Amer) 44 POC Glucose (mg/dL) 140 H (65-110) mg/dL Random Glucose 137 H (65-105) mg/dL Calcium 9.4 (8.6-10.4) mg/dl Phosphorus 2.2 L (2.5-4.5) mg/dL Magnesium 1.7 (1.6-2.3) mg/dL Total Bilirubin 10.7 H (0.2-1.3) mg/dL AST 39 H (14-36) U/L ALT 20 (9-52) U/L Alkaline Phosphatase 254 H (38-126) U/L Total Protein 6.3 (6.3-8.3) g/dL Albumin 2.4 L (3.5-5.0) g/dL Globulin 3.9 (2.2-3.9) gm/dL Albumin/Globulin Ratio 0.6 L (1.0-2.1) 11/23/16 11/23/16 Range/Units 23:57 17:41 WBC (4.8-10.8) K/uL RBC (3.80-5.20) Mil/uL Hgb (11.0-16.0) g/dL Hct (34.0-47.0) % MCV (81.0-99.0) fL MCH (27.0-31.0) pg MCHC (33.0-37.0) g/dL RDW (11.5-14.5) % Plt Count (130-400) K/uL MPV (7.2-11.7) fL Neut % (Auto) (50.0-75.0) % Lymph % (Auto) (20.0-40.0) % Loup % (Auto) (0.0-10.0) % Eos % (Auto) (0.0-4.0) % Baso % (Auto) (0.0-2.0) % Neut # (1.8-7.0) K/uL Lymph # (1.0-4.3) K/uL Loup # (0.0-0.8) K/uL Eos # (0.0-0.7) K/uL Baso # (0.0-0.2) K/uL Neutrophils % (Manual) (50-75) % Lymphocytes % (Manual) (20-40) % Monocytes % (Manual) (0-10) % Nucleated RBC % (0-0) % Platelet Estimate (NORMAL) Large Platelets Hypochromasia (manual) Poikilocytosis (manual Anisocytosis (manual) Macrocytosis (manual) Target Cells Sodium (132-148) mmol/L Potassium (3.6-5.2) mmol/L Chloride (98-107) mmol/L Carbon Dioxide (22-30) mmol/L Anion Gap (10-20) BUN (7-17) mg/dL Creatinine (0.7-1.2) MG/DL Est GFR ( Amer) Est GFR (Non-Af Amer) POC Glucose (mg/dL) 178 H 131 H (65-110) mg/dL Random Glucose (65-105) mg/dL Calcium (8.6-10.4) mg/dl Phosphorus (2.5-4.5) mg/dL Magnesium (1.6-2.3) mg/dL Total Bilirubin (0.2-1.3) mg/dL AST (14-36) U/L ALT (9-52) U/L Alkaline Phosphatase (38-126) U/L Total Protein (6.3-8.3) g/dL Albumin (3.5-5.0) g/dL Globulin (2.2-3.9) gm/dL Albumin/Globulin Ratio (1.0-2.1) Laboratory Results - last 24 hr 11/23/16 11/23/16 11/24/16 17:41 23:57 06:11 WBC RBC Hgb Hct MCV MCH MCHC RDW Plt Count MPV Neut % (Auto) Lymph % (Auto) Loup % (Auto) Eos % (Auto) Baso % (Auto) Neut # Lymph # Loup # Eos # Baso # Neutrophils % (Manual) Lymphocytes % (Manual) Monocytes % (Manual) Nucleated RBC % Platelet Estimate Large Platelets Hypochromasia (manual) Poikilocytosis (manual Anisocytosis (manual) Macrocytosis (manual) Target Cells Sodium Potassium Chloride Carbon Dioxide Anion Gap BUN Creatinine Est GFR ( Amer) Est GFR (Non-Af Amer) POC Glucose (mg/dL) 131 H 178 H 140 H Random Glucose Calcium Phosphorus Magnesium Total Bilirubin AST ALT Alkaline Phosphatase Total Protein Albumin Globulin Albumin/Globulin Ratio 11/24/16 11/24/16 06:32 06:32 WBC 18.4 H RBC 2.96 L Hgb 9.5 L Hct 27.9 L MCV 94.2 MCH 32.1 H MCHC 34.1 RDW 18.6 H Plt Count 44 L MPV 11.3 Neut % (Auto) 81.6 H Lymph % (Auto) 8.6 L Loup % (Auto) 6.8 Eos % (Auto) 1.0 Baso % (Auto) 2.0 Neut # 15.1 H Lymph # 1.6 Loup # 1.3 H Eos # 0.2 Baso # 0.4 H Neutrophils % (Manual) 87 H Lymphocytes % (Manual) 9 L Monocytes % (Manual) 4 Nucleated RBC % 1 H Platelet Estimate Decreased L Large Platelets Present Hypochromasia (manual) Slight Poikilocytosis (manual Slight Anisocytosis (manual) Slight Macrocytosis (manual) Slight Target Cells Slight Sodium 140 Potassium 3.4 L Chloride 97 L Carbon Dioxide 23 Anion Gap 23 H BUN 16 Creatinine 1.2 Est GFR ( Amer) 53 Est GFR (Non-Af Amer) 44 POC Glucose (mg/dL) Random Glucose 137 H Calcium 9.4 Phosphorus 2.2 L Magnesium 1.7 Total Bilirubin 10.7 H AST 39 H ALT 20 Alkaline Phosphatase 254 H Total Protein 6.3 Albumin 2.4 L Globulin 3.9 Albumin/Globulin Ratio 0.6 L Critical Care Progress Note - Nutrition Nutrition: Nutrition Category Date Time Status NPO Diet [DIET] Diets 11/17/16 Breakfast Active Assessment/Plan (1) Leucocytosis Current Visit: Yes Status: Acute Attending/Attestation - Attestation I have personally seen and examined this patient.: Yes I have fully participated in the care of the patient.: Yes I have reviewed all pertinent clinical information: Yes Notes (Text): 11/24/16 15:51 I have seen and examined the patient. Medical records, lab studies, and imaging were reviewed by me and a management plan was formulated on multidisciplinary rounds with resident Dr. Anne. I agree with their above documented assessment and plan. Patient is again hypotensive requiring pressors. She is in septic shock. She is slowly deteriorating and will most likely during this hospitalization. The daughter has agreed to a DNR. Still continuing all medical therapy. Critical Care Time 35 minutes. Multi-disciplinary rounds were performed with house staff, nursing, speech therapy, respiratory therapy, pharmacy and nutrition with integrated input from the primary team/attending and other consulting services. The documented time is cumulative and includes review of patient data/exams/labs/chart review and examination of the patient on rounds and throughout the day; time is exclusive of any procedures or teaching time.
--- NOTE | 2016-11-24 11:58 | CP.PCM.PN ---
Subjective - Date & Time of Evaluation Date of Evaluation: 11/24/16 Time of Evaluation: 11:56 - Subjective Subjective: s/p hd yesterday, needed pressor support rmains obtunded DNR status noted Objective - Vital Signs/Intake and Output Vital Signs (last 24 hours): Temp Pulse Resp BP Pulse Ox 98.9 F 100 H 17 108/48 L 94 L 11/24/16 04:00 11/24/16 07:30 11/24/16 07:30 11/24/16 07:22 11/24/16 07:30 Intake and Output: 11/24/16 11/24/16 06:59 18:59 Intake Total 1036.8 66.4 Output Total 0 0 Balance 1036.8 66.4 - Medications Medications: Current Medications Acetaminophen (Tylenol 650mg/20.3ml Solution Ud) 650 mg NG Q6 PRN PRN Reason: temp above 101 Last Admin: 11/23/16 05:57 Dose: 650 mg Albuterol/Ipratropium (Duoneb 3 Mg/0.5 Mg (3 Ml) Ud) 3 ml INH RQ6 [facility] Last Admin: 11/24/16 07:19 Dose: 3 ml Epoetin Sly (Procrit) 10,000 unit IV MWF [facility] Last Admin: 11/23/16 10:29 Dose: 10,000 unit Hydromorphone HCl (Dilaudid) 0.5 mg IVP Q6H PRN PRN Reason: Pain, severe (8-10) Last Admin: 11/22/16 15:20 Dose: 0.5 mg Norepinephrine Bitartrate 4 mg (/ Sodium Chloride) 254 mls @ 15.24 mls/hr IV .[id number] PRN; Protocol; 4 MCG/MIN PRN Reason: TITRATE PER MD ORDER Last Admin: 11/23/16 23:20 Dose: 2.99 mcg/min, 11.39 mls/hr Insulin Human Regular (Novolin R) 0 unit SC Q6 [facility] PRN Reason: Protocol Last Admin: 11/24/16 06:27 Dose: Not Given Levothyroxine Sodium (Synthroid) 175 mcg PO DAILY@0630 [facility] Last Admin: 11/24/16 06:28 Dose: 175 mcg Pantoprazole Sodium (Protonix Inj) 40 mg IVP DAILY [facility] Last Admin: 11/23/16 14:09 Dose: 40 mg - Labs Labs: 11/24/16 06:32 11/24/16 06:32 PT 19.5 SECONDS (9.7-12.2) H 10/28/16 08:07 INR 1.7 10/28/16 08:07 APTT 49 SECONDS (21-34) H 10/25/16 16:33 - Constitutional Appears: Older Than Stated Age, Cachectic, Chronically Ill - Head Exam Head Exam: NORMAL INSPECTION - Eye Exam Eye Exam: Normal appearance - ENT Exam ENT Exam: Mucous Membranes Dry (trach-vent) - Respiratory Exam Respiratory Exam: Decreased Breath Sounds (mechanical vent sounds) - Cardiovascular Exam Cardiovascular Exam: Tachycardia, REGULAR RHYTHM - GI/Abdominal Exam GI & Abdominal Exam: Soft, Hypoactive Bowel Sounds - Extremities Exam Extremities Exam: Normal Inspection Assessment and Plan (1) Lower GI bleed Status: Acute (2) Diabetes mellitus Status: Acute (3) CHF (congestive heart failure) Status: Chronic (4) ESRD (end stage renal disease) on dialysis Status: Chronic - Assessment and Plan (Free Text) Assessment: maintain hd mwf, uf as tolerated. albumin / midodrine for bp support poor prognosis
--- NOTE | 2016-11-24 19:25 | CP.PCM.PN ---
Subjective - Date & Time of Evaluation Date of Evaluation: 11/24/16 Time of Evaluation: 19:25 - Subjective Subjective: Patient is a hemodialysis yesterday. Still on norepinephrine, attempted pressure support. DNR. Spoke to the patient's daughter Vital signs reviewed in Chest good air entry regular heart sound abdomen soft edema bilaterally noted Patient is in overall prognosis is poor. Pneumonia renal failure heart disease. Severe malnourishment Objective - Vital Signs/Intake and Output Vital Signs (last 24 hours): Temp Pulse Resp BP Pulse Ox 98.9 F 96 H 24 99/44 L 97 11/24/16 16:00 11/24/16 18:22 11/24/16 18:22 11/24/16 18:22 11/24/16 18:22 Intake and Output: 11/24/16 11/25/16 18:59 06:59 Intake Total 943.2 Output Total 0 Balance 943.2 - Medications Medications: Current Medications Acetaminophen (Tylenol 650mg/20.3ml Solution Ud) 650 mg NG Q6 PRN PRN Reason: temp above 101 Last Admin: 11/23/16 05:57 Dose: 650 mg Albumin Human (Albumin Human 25% (12.5 Gm/50 Ml)) 12.5 gm IV ONCE ONE Stop: 11/25/16 11:59 Albuterol/Ipratropium (Duoneb 3 Mg/0.5 Mg (3 Ml) Ud) 3 ml INH RQ6 [facility] Last Admin: 11/24/16 19:16 Dose: 3 ml Epoetin Sly (Procrit) 10,000 unit IV F [facility] Last Admin: 11/23/16 10:29 Dose: 10,000 unit Hydromorphone HCl (Dilaudid) 0.5 mg IVP Q6H PRN PRN Reason: Pain, severe (8-10) Last Admin: 11/22/16 15:20 Dose: 0.5 mg Norepinephrine Bitartrate 4 mg (/ Sodium Chloride) 254 mls @ 15.24 mls/hr IV .[id number] PRN; Protocol; 4 MCG/MIN PRN Reason: TITRATE PER MD ORDER Last Titration: 11/24/16 16:30 Dose: 1.99 mcg/min, 7.6 mls/hr Insulin Human Regular (Novolin R) 0 unit SC Q6 REKHA PRN Reason: Protocol Last Admin: 11/24/16 18:24 Dose: Not Given Levothyroxine Sodium (Synthroid) 175 mcg PO DAILY@0630 [facility] Last Admin: 11/24/16 06:28 Dose: 175 mcg Pantoprazole Sodium (Protonix Inj) 40 mg IVP DAILY [facility] Last Admin: 11/24/16 12:22 Dose: 40 mg - Labs Labs: 11/24/16 06:32 11/24/16 06:32 PT 19.5 SECONDS (9.7-12.2) H 10/28/16 08:07 INR 1.7 10/28/16 08:07 APTT 49 SECONDS (21-34) H 10/25/16 16:33
--- NOTE | 2016-11-24 22:39 | CP.PCM.PN ---
Subjective - Date & Time of Evaluation Date of Evaluation: 11/24/16 Time of Evaluation: 09:50 - Subjective Subjective: Patient seen and evaluated Deteriorating clinical condition Poor prognosis Objective - Vital Signs/Intake and Output Vital Signs (last 24 hours): Temp Pulse Resp BP Pulse Ox 98.9 F 95 H 19 103/48 L 95 11/24/16 16:00 11/24/16 21:22 11/24/16 21:22 11/24/16 21:22 11/24/16 21:22 Intake and Output: 11/24/16 11/25/16 18:59 06:59 Intake Total 943.2 187.8 Output Total 0 Balance 943.2 187.8 - Medications Medications: Current Medications Acetaminophen (Tylenol 650mg/20.3ml Solution Ud) 650 mg NG Q6 PRN PRN Reason: temp above 101 Last Admin: 11/23/16 05:57 Dose: 650 mg Albumin Human (Albumin Human 25% (12.5 Gm/50 Ml)) 12.5 gm IV ONCE ONE Stop: 11/25/16 11:59 Albuterol/Ipratropium (Duoneb 3 Mg/0.5 Mg (3 Ml) Ud) 3 ml INH RQ6 [facility] Last Admin: 11/24/16 19:16 Dose: 3 ml Epoetin Sly (Procrit) 10,000 unit IV MWF [facility] Last Admin: 11/23/16 10:29 Dose: 10,000 unit Hydromorphone HCl (Dilaudid) 0.5 mg IVP Q6H PRN PRN Reason: Pain, severe (8-10) Last Admin: 11/22/16 15:20 Dose: 0.5 mg Norepinephrine Bitartrate 4 mg (/ Sodium Chloride) 254 mls @ 15.24 mls/hr IV .[id number] PRN; Protocol; 4 MCG/MIN PRN Reason: TITRATE PER MD ORDER Last Titration: 11/24/16 16:30 Dose: 1.99 mcg/min, 7.6 mls/hr Insulin Human Regular (Novolin R) 0 unit SC Q6 [facility] PRN Reason: Protocol Last Admin: 11/24/16 18:24 Dose: Not Given Levothyroxine Sodium (Synthroid) 175 mcg PO DAILY@0630 [facility] Last Admin: 08/03/17 06:28 Dose: 175 mcg Pantoprazole Sodium (Protonix Inj) 40 mg IVP DAILY [facility] Last Admin: 11/24/16 12:22 Dose: 40 mg - Labs Labs: 11/24/16 06:32 11/24/16 06:32 PT 19.5 SECONDS (9.7-12.2) H 10/28/16 08:07 INR 1.7 10/28/16 08:07 APTT 49 SECONDS (21-34) H 10/25/16 16:33
[2016-11-25] MEDS: (Novolin R) Insulin Human Regular 100 units/ml vial SC SCH ×4 (00:05→18:00)
[2016-11-25] MEDS: Albuterol-Ipratrop 3 mg / 0.5 (3 ml) UD INH SCH ×4 (01:15→19:44)
[2016-11-25] MEDS: Levothyroxine 175 MCG TAB PO SCH (06:14)
[2016-11-25 06:25] LABS: ABG ALLEN TEST POS; ABG MECHANICAL RATE 14; ARTERIAL BLOOD GAS MODE PRVC; ARTERIAL BLOOD HGB O2 SAT 90.1 % (95.0-98.0); ATERIAL BLOOD GAS PEEP 5; CARBOXYHEMOGLOBIN 2.8 % (0.5-1.5); DRAW SITE R RAD; HHB 5.1 % (0.0-5.0); METHEMOGLOBIN 2.1 % (0.0-3.0)
[2016-11-25 06:39] LABS: ALB/GLOB RATIO 0.6 (1.0-2.1); BILIRUBIN,TOTAL 10.6 mg/dL (0.2-1.3); CALCIUM 9.9 mg/dl (8.6-10.4); MAGNESIUM 1.8 mg/dL (1.6-2.3); PHOSPHOROUS 3.6 mg/dL (2.5-4.5)
[2016-11-25 06:43] LABS: BASO # 0.2 K/uL (0.0-0.2); BASO % 1.1 % (0.0-2.0); EOS # 0.2 K/uL (0.0-0.7); EOS % 0.8 % (0.0-4.0); HEMATOCRIT 28.8 % (34.0-47.0); LYMPH # 1.2 K/uL (1.0-4.3); LYMPH % 5.8 % (20.0-40.0); MEAN CELL VOLUME 95.8 fL (81.0-99.0); MEAN CORPUSCULAR HEMOGLOBIN 31.6 pg (27.0-31.0); MEAN PLATELET VOLUME 11.6 fL (7.2-11.7); MONO # 1.3 K/uL (0.0-0.8); NRBC % 0.1 % (0.0-2.0); PLATELET COUNT 60 K/uL (130-400); WHITE BLOOD COUNT 21.6 K/uL (4.8-10.8)
[2016-11-25 09:38] LABS: BASOPHIL 1 % (0-2); EOSINOPHIL 1 % (0-4); NEUTROPHIL 87 % (50-75); NUCLEATED RED BLOOD CELL 1 % (0-0); TOTAL CELLS COUNTED 100
[2016-11-25] MEDS ORDERED: Albumin Human 25% (12.5 gm/50 ml) IV ONE ×2 (11:58→19:27)
--- NOTE | 2016-11-25 14:40 | CP.CCUPN ---
<JasonCyndie cokerri VickyLalita - Last Filed: 11/25/16 14:36> CCU Subjective - Physician Review Subjective (Free Text): Patient was seen and examined at bedside in the morning. Patient is non- verbal. 11/25/16 14:36 CCU Objective - Vital Signs / Intake & Output Intake and Output (Last 8hrs): Intake & Output 11/24/16 11/25/16 11/25/16 22:59 06:59 14:59 Intake Total 662.4 600.8 165 Output Total 0 Balance 662.4 600.8 165 Weight 110 lb Intake: IV 154 100 Intake, IV Amount 228.4 220.8 60 Right Distal Port PICC 160 160 60 Right PICC 68.4 60.8 0 Tube Feeding 280 280 105 Output: Urine 0 Urine, Voided 0 Other: # Bowel Movements 1 - Physical Exam Head: Positive for: Atraumatic, Normocephalic Extroacular Muscles: Negative for: EOMI Conjunctiva: Positive for: Icteric Mouth: Positive for: Dry. Negative for: Moist Mucous Membranes Nose (Internal): Positive for: Other (NGT in place) Neck: Positive for: Other (trach in place) Respiratory/Chest: Positive for: Decreased Breath Sounds, Rhonchi. Negative for : Clear to Auscultation, Respiratory Distress, Accessory Muscle Use Cardiovascular: Positive for: Normal S1, S2. Negative for: Murmurs, Tachycardic , Bradycardic Abdomen: Positive for: Other (+bowel sounds). Negative for: Distention, Hernias Upper Extremity: Positive for: Cyanosis, Other (cold fingers, ischemic 2-4 digits on left hand ). Negative for: NORMAL PULSES, Neurovascularly Intact, Capillary Refill < 2s Lower Extremity: Positive for: Edema. Negative for: NORMAL PULSES Neurological: Negative for: GCS=15, Speech Normal Skin: Positive for: Cold (bilateral hands), Other (gangrenous fingertips). Negative for: Warm Psychiatric: Positive for: Other (non-verbal ). Negative for: Alert, Oriented x 3, Normal Insight, Normal Concentration - Medications Active Medications: Active Medications Generic Name Dose Route Start Last Admin Trade Name Freq PRN Reason Stop Dose Admin Acetaminophen 650 mg 11/23/16 00:09 11/23/16 05:57 Tylenol 650mg/20.3ml Solution Ud NG 650 mg Q6 PRN Administration temp above 101 Albuterol/Ipratropium 3 ml 11/12/16 14:00 11/25/16 13:15 Duoneb 3 Mg/0.5 Mg (3 Ml) Ud INH 3 ml RQ6 REKHA Administration Epoetin Sly 10,000 unit 11/21/16 18:30 11/23/16 10:29 Procrit IV 10,000 unit MWF REKHA Administration Hydromorphone HCl 0.5 mg 11/22/16 14:57 11/22/16 15:20 Dilaudid IVP 0.5 mg Q6H PRN Administration Pain, severe (8-10) Norepinephrine Bitartrate 4 mg 254 mls @ 15.24 mls/hr 11/16/16 20:28 02:53 / Sodium Chloride IV 1.99 mcg/min .[id number] PRN 7.58 mls/hr TITRATE PER MD ORDER Administration Protocol 4 MCG/MIN Insulin Human Regular 0 unit 11/16/16 12:00 11/25/16 13:24 Novolin R SC 2 unit Q6 REKHA Administration Protocol Levothyroxine Sodium 175 mcg 11/18/16 06:30 11/25/16 06:14 Synthroid PO 175 mcg DAILY@0630 REKHA Administration Pantoprazole Sodium 40 mg 11/05/16 11:15 11/25/16 10:47 Protonix Inj IVP 40 mg DAILY REKHA Administration - Patient Studies Lab Studies: Lab Studies 11/25/16 11/25/16 11/25/16 Range/Units 12:30 06:19 06:17 WBC 21.6 H (4.8-10.8) K/uL RBC 3.01 L (3.80-5.20) Mil/uL Hgb 9.5 L (11.0-16.0) g/dL Hct 28.8 L (34.0-47.0) % MCV 95.8 (81.0-99.0) fL MCH 31.6 H (27.0-31.0) pg MCHC 33.0 (33.0-37.0) g/dL RDW 19.0 H (11.5-14.5) % Plt Count 60 L (130-400) K/uL MPV 11.6 (7.2-11.7) fL Neut % (Auto) 86.3 H (50.0-75.0) % Lymph % (Auto) 5.8 L (20.0-40.0) % [place] % (Auto) 6.0 (0.0-10.0) % Eos % (Auto) 0.8 (0.0-4.0) % Baso % (Auto) 1.1 (0.0-2.0) % Neut # 18.7 H (1.8-7.0) K/uL Lymph # 1.2 (1.0-4.3) K/uL [place] # 1.3 H (0.0-0.8) K/uL Eos # 0.2 (0.0-0.7) K/uL Baso # 0.2 (0.0-0.2) K/uL Neutrophils % (Manual) 87 H (50-75) % Band Neutrophils % 1 (0-2) % Lymphocytes % (Manual) 7 L (20-40) % Monocytes % (Manual) 3 (0-10) % Eosinophils % (Manual) 1 (0-4) % Basophils % (Manual) 1 (0-2) % Nucleated RBC % 1 H (0-0) % Platelet Estimate Decreased L (NORMAL) Polychromasia Slight Hypochromasia (manual) Slight Poikilocytosis (manual Slight Anisocytosis (manual) Slight Target Cells Slight Ovalocytes Slight Puncture Site pCO2 (35-45) mm/Hg pO2 (80-100) mm/Hg HCO3 (21-28) mmol/L ABG pH (7.35-7.45) ABG Total CO2 (22-28) mmol/L ABG O2 Saturation (95-98) % ABG Base Excess (-2.0-3.0) mmol/L ABG Hemoglobin (11.7-17.4) g/dL ABG Carboxyhemoglobin (0.5-1.5) % POC ABG HHb (Measured) (0.0-5.0) % ABG Methemoglobin (0.0-3.0) % [place] Test A-a O2 Difference mm/Hg Respiratory Index Hgb O2 Saturation (95.0-98.0) % Vent Mode Mechanical Rate FiO2 % Tidal Volume PEEP Sodium 135 (132-148) mmol/L Potassium 4.0 (3.6-5.2) mmol/L Chloride 96 L (98-107) mmol/L Carbon Dioxide 23 (22-30) mmol/L Anion Gap 20 (10-20) BUN 28 H (7-17) mg/dL Creatinine 1.8 H (0.7-1.2) MG/DL Est GFR ( Amer) 33 Est GFR (Non-Af Amer) 28 POC Glucose (mg/dL) 218 H (65-110) mg/dL Random Glucose 197 H (65-105) mg/dL Calcium 9.9 (8.6-10.4) mg/dl Phosphorus 3.6 (2.5-4.5) mg/dL Magnesium 1.8 (1.6-2.3) mg/dL Total Bilirubin 10.6 H (0.2-1.3) mg/dL AST 42 H (14-36) U/L ALT 18 (9-52) U/L Alkaline Phosphatase 227 H (38-126) U/L Total Protein 6.0 L (6.3-8.3) g/dL Albumin 2.2 L (3.5-5.0) g/dL Globulin 3.7 (2.2-3.9) gm/dL Albumin/Globulin Ratio 0.6 L (1.0-2.1) 11/25/16 11/25/16 11/25/16 Range/Units 05:48 05:23 00:08 WBC (4.8-10.8) K/uL RBC (3.80-5.20) Mil/uL Hgb (11.0-16.0) g/dL Hct (34.0-47.0) % MCV (81.0-99.0) fL MCH (27.0-31.0) pg MCHC (33.0-37.0) g/dL RDW (11.5-14.5) % Plt Count (130-400) K/uL MPV (7.2-11.7) fL Neut % (Auto) (50.0-75.0) % Lymph % (Auto) (20.0-40.0) % [place] % (Auto) (0.0-10.0) % Eos % (Auto) (0.0-4.0) % Baso % (Auto) (0.0-2.0) % Neut # (1.8-7.0) K/uL Lymph # (1.0-4.3) K/uL [place] # (0.0-0.8) K/uL Eos # (0.0-0.7) K/uL Baso # (0.0-0.2) K/uL Neutrophils % (Manual) (50-75) % Band Neutrophils % (0-2) % Lymphocytes % (Manual) (20-40) % Monocytes % (Manual) (0-10) % Eosinophils % (Manual) (0-4) % Basophils % (Manual) (0-2) % Nucleated RBC % (0-0) % Platelet Estimate (NORMAL) Polychromasia Hypochromasia (manual) Poikilocytosis (manual Anisocytosis (manual) Target Cells Ovalocytes Puncture Site R rad pCO2 27 L (35-45) mm/Hg pO2 54 L (80-100) mm/Hg HCO3 19.6 L (21-28) mmol/L ABG pH 7.41 (7.35-7.45) ABG Total CO2 17.9 L (22-28) mmol/L ABG O2 Saturation 94.6 L (95-98) % ABG Base Excess -6.8 L (-2.0-3.0) mmol/L ABG Hemoglobin 7.3 L (11.7-17.4) g/dL ABG Carboxyhemoglobin 2.8 H (0.5-1.5) % POC ABG HHb (Measured) 5.1 H (0.0-5.0) % ABG Methemoglobin 2.1 (0.0-3.0) % [place] Test Pos A-a O2 Difference 269.0 mm/Hg Respiratory Index 5.0 Hgb O2 Saturation 90.1 L (95.0-98.0) % Vent Mode Prvc Mechanical Rate 14 FiO2 50.0 % Tidal Volume 350 PEEP 5 Sodium (132-148) mmol/L Potassium (3.6-5.2) mmol/L Chloride (98-107) mmol/L Carbon Dioxide (22-30) mmol/L Anion Gap (10-20) BUN (7-17) mg/dL Creatinine (0.7-1.2) MG/DL Est GFR ( Amer) Est GFR (Non-Af Amer) POC Glucose (mg/dL) 214 H 194 H (65-110) mg/dL Random Glucose (65-105) mg/dL Calcium (8.6-10.4) mg/dl Phosphorus (2.5-4.5) mg/dL Magnesium (1.6-2.3) mg/dL Total Bilirubin (0.2-1.3) mg/dL AST (14-36) U/L ALT (9-52) U/L Alkaline Phosphatase (38-126) U/L Total Protein (6.3-8.3) g/dL Albumin (3.5-5.0) g/dL Globulin (2.2-3.9) gm/dL Albumin/Globulin Ratio (1.0-2.1) 11/24/16 11/24/16 Range/Units 18:03 12:01 WBC (4.8-10.8) K/uL RBC (3.80-5.20) Mil/uL Hgb (11.0-16.0) g/dL Hct (34.0-47.0) % MCV (81.0-99.0) fL MCH (27.0-31.0) pg MCHC (33.0-37.0) g/dL RDW (11.5-14.5) % Plt Count (130-400) K/uL MPV (7.2-11.7) fL Neut % (Auto) (50.0-75.0) % Lymph % (Auto) (20.0-40.0) % [place] % (Auto) (0.0-10.0) % Eos % (Auto) (0.0-4.0) % Baso % (Auto) (0.0-2.0) % Neut # (1.8-7.0) K/uL Lymph # (1.0-4.3) K/uL [place] # (0.0-0.8) K/uL Eos # (0.0-0.7) K/uL Baso # (0.0-0.2) K/uL Neutrophils % (Manual) (50-75) % Band Neutrophils % (0-2) % Lymphocytes % (Manual) (20-40) % Monocytes % (Manual) (0-10) % Eosinophils % (Manual) (0-4) % Basophils % (Manual) (0-2) % Nucleated RBC % (0-0) % Platelet Estimate (NORMAL) Polychromasia Hypochromasia (manual) Poikilocytosis (manual Anisocytosis (manual) Target Cells Ovalocytes Puncture Site pCO2 (35-45) mm/Hg pO2 (80-100) mm/Hg HCO3 (21-28) mmol/L ABG pH (7.35-7.45) ABG Total CO2 (22-28) mmol/L ABG O2 Saturation (95-98) % ABG Base Excess (-2.0-3.0) mmol/L ABG Hemoglobin (11.7-17.4) g/dL ABG Carboxyhemoglobin (0.5-1.5) % POC ABG HHb (Measured) (0.0-5.0) % ABG Methemoglobin (0.0-3.0) % [place] Test A-a O2 Difference mm/Hg Respiratory Index Hgb O2 Saturation (95.0-98.0) % Vent Mode Mechanical Rate FiO2 % Tidal Volume PEEP Sodium (132-148) mmol/L Potassium (3.6-5.2) mmol/L Chloride (98-107) mmol/L Carbon Dioxide (22-30) mmol/L Anion Gap (10-20) BUN (7-17) mg/dL Creatinine (0.7-1.2) MG/DL Est GFR ( Amer) Est GFR (Non-Af Amer) POC Glucose (mg/dL) 164 H 140 H (65-110) mg/dL Random Glucose (65-105) mg/dL Calcium (8.6-10.4) mg/dl Phosphorus (2.5-4.5) mg/dL Magnesium (1.6-2.3) mg/dL Total Bilirubin (0.2-1.3) mg/dL AST (14-36) U/L ALT (9-52) U/L Alkaline Phosphatase (38-126) U/L Total Protein (6.3-8.3) g/dL Albumin (3.5-5.0) g/dL Globulin (2.2-3.9) gm/dL Albumin/Globulin Ratio (1.0-2.1) Laboratory Results - last 24 hr 11/24/16 11/24/1611/25/17 12:01 18:03 00:08 WBC RBC Hgb Hct MCV MCH MCHC RDW Plt Count MPV Neut % (Auto) Lymph % (Auto) [place] % (Auto) Eos % (Auto) Baso % (Auto) Neut # Lymph # [place] # Eos # Baso # Neutrophils % (Manual) Band Neutrophils % Lymphocytes % (Manual) Monocytes % (Manual) Eosinophils % (Manual) Basophils % (Manual) Nucleated RBC % Platelet Estimate Polychromasia Hypochromasia (manual) Poikilocytosis (manual Anisocytosis (manual) Target Cells Ovalocytes Puncture Site pCO2 pO2 HCO3 ABG pH ABG Total CO2 ABG O2 Saturation ABG Base Excess ABG Hemoglobin ABG Carboxyhemoglobin POC ABG HHb (Measured) ABG Methemoglobin [place] Test A-a O2 Difference Respiratory Index Hgb O2 Saturation Vent Mode Mechanical Rate FiO2 Tidal Volume PEEP Sodium Potassium Chloride Carbon Dioxide Anion Gap BUN Creatinine Est GFR ( Amer) Est GFR (Non-Af Amer) POC Glucose (mg/dL) 140 H 164 H 194 H Random Glucose Calcium Phosphorus Magnesium Total Bilirubin AST ALT Alkaline Phosphatase Total Protein Albumin Globulin Albumin/Globulin Ratio 11/25/16 11/25/16 11/25/16 05:23 05:48 06:17 WBC RBC Hgb Hct MCV MCH MCHC RDW Plt Count MPV Neut % (Auto) Lymph % (Auto) [place] % (Auto) Eos % (Auto) Baso % (Auto) Neut # Lymph # [place] # Eos # Baso # Neutrophils % (Manual) Band Neutrophils % Lymphocytes % (Manual) Monocytes % (Manual) Eosinophils % (Manual) Basophils % (Manual) Nucleated RBC % Platelet Estimate Polychromasia Hypochromasia (manual) Poikilocytosis (manual Anisocytosis (manual) Target Cells Ovalocytes Puncture Site R rad pCO2 27 L pO2 54 L HCO3 19.6 L ABG pH 7.41 ABG Total CO2 17.9 L ABG O2 Saturation 94.6 L ABG Base Excess -6.8 L ABG Hemoglobin 7.3 L ABG Carboxyhemoglobin 2.8 H POC ABG HHb (Measured) 5.1 H ABG Methemoglobin 2.1 [place] Test Pos A-a O2 Difference 269.0 Respiratory Index 5.0 Hgb O2 Saturation 90.1 L Vent Mode Prvc Mechanical Rate 14 FiO2 50.0 Tidal Volume 350 PEEP 5 Sodium 135 Potassium 4.0 Chloride 96 L Carbon Dioxide 23 Anion Gap 20 BUN 28 H Creatinine 1.8 H Est GFR ( Amer) 33 Est GFR (Non-Af Amer) 28 POC Glucose (mg/dL) 214 H Random Glucose 197 H Calcium 9.9 Phosphorus 3.6 Magnesium 1.8 Total Bilirubin 10.6 H AST 42 H ALT 18 Alkaline Phosphatase 227 H Total Protein 6.0 L Albumin 2.2 L Globulin 3.7 Albumin/Globulin Ratio 0.6 L 11/25/16 11/25/16 06:19 12:30 WBC 21.6 H RBC 3.01 L Hgb 9.5 L Hct 28.8 L MCV 95.8 MCH 31.6 H MCHC 33.0 RDW 19.0 H Plt Count 60 L MPV 11.6 Neut % (Auto) 86.3 H Lymph % (Auto) 5.8 L [place] % (Auto) 6.0 Eos % (Auto) 0.8 Baso % (Auto) 1.1 Neut # 18.7 H Lymph # 1.2 [place] # 1.3 H Eos # 0.2 Baso # 0.2 Neutrophils % (Manual) 87 H Band Neutrophils % 1 Lymphocytes % (Manual) 7 L Monocytes % (Manual) 3 Eosinophils % (Manual) 1 Basophils % (Manual) 1 Nucleated RBC % 1 H Platelet Estimate Decreased L Polychromasia Slight Hypochromasia (manual) Slight Poikilocytosis (manual Slight Anisocytosis (manual) Slight Target Cells Slight Ovalocytes Slight Puncture Site pCO2 pO2 HCO3 ABG pH ABG Total CO2 ABG O2 Saturation ABG Base Excess ABG Hemoglobin ABG Carboxyhemoglobin POC ABG HHb (Measured) ABG Methemoglobin [place] Test A-a O2 Difference Respiratory Index Hgb O2 Saturation Vent Mode Mechanical Rate FiO2 Tidal Volume PEEP Sodium Potassium Chloride Carbon Dioxide Anion Gap BUN Creatinine Est GFR ( Amer) Est GFR (Non-Af Amer) POC Glucose (mg/dL) 218 H Random Glucose Calcium Phosphorus Magnesium Total Bilirubin AST ALT Alkaline Phosphatase Total Protein Albumin Globulin Albumin/Globulin Ratio Fingerstick Blood Sugar Results: 218 Review of Systems - Review of Systems Systems not reviewed;Unavailable: Intubated Critical Care Progress Note - Vent Settings TIDAL VOLUME:: 350 RESP RATE:: 14 FIO2:: 70 PEEP:: 5 - Nutrition Nutrition: Nutrition Category Date Time Status NPO Diet [DIET] Diets 11/17/16 Breakfast Active Assessment/Plan - Assessment and Plan (Free Text) Assessment: 76 female patient admitted for GI bleed; s/p flexible sigmoidoscopy and multiple transfusions. Patient was transferred from the medical floor to the ICU because patient was noted to have a hypotensive state, bradycardia and mucus secretions. Neuro: - GCS 9T - at baseline likely secondary to metabolic encephalopathy - Patient in non-verbal Pulm: - Chronic Respiratory failure - Intubated - Vent settings: FiO2 70, Tidal Volume 350, RR 14, PEEP 5 CV: - Septic Shock - BP mildly improved - systolic now in the 90s - Norepinephrine IV 4mcg/min - Dr Long on board. Pt high risk for any procedure but can proceed if clinical indicated - Left hand with ischemic necrosis - consult placed for vascular surgery, as per Dr Buck - likely nothing to do Heme: - Will continue to monitor H/H and for rectal bleed Renal: - ESRD - HD as per Dr Mcfarland - Dr Trent on consult --> help appreciated - Dialysis today Endo: -Insulin sliding scale - patient's daughter refuses insulin GI: Ischemic colitis with hemorrhage, not a candidate for intervention as this would be medically futile. - NGT placed 11/17 - Tube Feeding - f/u PEG tube placement -IR Consult: Dr. Walker --> help appreciated - As per Dr. Walker, plan is to place on a g-tube once patient is hemodynamically stable and coagulopathy is corrected. - Protonix for GI bleed - GI Consult: Dr. 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[employer] Care Code status: DNR/DNI <Ortiz Zpaien - Last Filed: 11/25/16 15:21> CCU Objective - Vital Signs / Intake & Output Intake and Output (Last 8hrs): Intake & Output 11/25/16 11/25/16 11/25/16 06:59 14:59 22:59 Intake Total 600.8 165 Balance 600.8 165 Intake: IV 100 Intake, IV Amount 220.8 60 Right Distal Port PICC 160 60 Right PICC 60.8 0 Tube Feeding 280 105 - Medications Active Medications: Active Medications Generic Name Dose Route Start Last Admin Trade Name Freq PRN Reason Stop Dose Admin Acetaminophen 650 mg 11/23/16 00:09 11/23/16 05:57 Tylenol 650mg/20.3ml Solution Ud NG 650 mg Q6 PRN Administration temp above 101 Albuterol/Ipratropium 3 ml 11/12/16 14:00 11/25/16 13:15 Duoneb 3 Mg/0.5 Mg (3 Ml) Ud INH 3 ml RQ6 REKHA Administration Epoetin Sly 10,000 unit 11/21/16 18:30 11/23/16 10:29 Procrit IV 10,000 unit MWF REKHA Administration Hydromorphone HCl 0.5 mg 11/22/16 14:57 11/22/16 15:20 Dilaudid IVP 0.5 mg Q6H PRN Administration Pain, severe (8-10) Norepinephrine Bitartrate 4 mg 254 mls @ 15.24 mls/hr 11/16/16 20:28 02:53 / Sodium Chloride IV 1.99 mcg/min .[id number] PRN 7.58 mls/hr TITRATE PER MD ORDER Administration Protocol 4 MCG/MIN Insulin Human Regular 0 unit 11/16/16 12:00 11/25/16 13:24 Novolin R SC 2 unit Q6 REKHA Administration Protocol Levothyroxine Sodium 175 mcg 11/18/16 06:30 11/25/16 06:14 Synthroid PO 175 mcg DAILY@0630 REKHA Administration Pantoprazole Sodium 40 mg 11/05/16 11:15 11/25/16 10:47 Protonix Inj IVP 40 mg DAILY REKHA Administration - Patient Studies Lab Studies: Lab Studies 11/25/16 11/25/16 11/25/16 Range/Units 12:30 06:19 06:17 WBC 21.6 H (4.8-10.8) K/uL RBC 3.01 L (3.80-5.20) Mil/uL Hgb 9.5 L (11.0-16.0) g/dL Hct 28.8 L (34.0-47.0) % MCV 95.8 (81.0-99.0) fL MCH 31.6 H (27.0-31.0) pg MCHC 33.0 (33.0-37.0) g/dL RDW 19.0 H (11.5-14.5) % Plt Count 60 L (130-400) K/uL MPV 11.6 (7.2-11.7) fL Neut % (Auto) 86.3 H (50.0-75.0) % Lymph % (Auto) 5.8 L (20.0-40.0) % [place] % (Auto) 6.0 (0.0-10.0) % Eos % (Auto) 0.8 (0.0-4.0) % Baso % (Auto) 1.1 (0.0-2.0) % Neut # 18.7 H (1.8-7.0) K/uL Lymph # 1.2 (1.0-4.3) K/uL [place] # 1.3 H (0.0-0.8) K/uL Eos # 0.2 (0.0-0.7) K/uL Baso # 0.2 (0.0-0.2) K/uL Neutrophils % (Manual) 87 H (50-75) % Band Neutrophils % 1 (0-2) % Lymphocytes % (Manual) 7 L (20-40) % Monocytes % (Manual) 3 (0-10) % Eosinophils % (Manual) 1 (0-4) % Basophils % (Manual) 1 (0-2) % Nucleated RBC % 1 H (0-0) % Platelet Estimate Decreased L (NORMAL) Polychromasia Slight Hypochromasia (manual) Slight Poikilocytosis (manual Slight Anisocytosis (manual) Slight Target Cells Slight Ovalocytes Slight Puncture Site pCO2 (35-45) mm/Hg pO2 (80-100) mm/Hg HCO3 (21-28) mmol/L ABG pH (7.35-7.45) ABG Total CO2 (22-28) mmol/L ABG O2 Saturation (95-98) % ABG Base Excess (-2.0-3.0) mmol/L ABG Hemoglobin (11.7-17.4) g/dL ABG Carboxyhemoglobin (0.5-1.5) % POC ABG HHb (Measured) (0.0-5.0) % ABG Methemoglobin (0.0-3.0) % [place] Test A-a O2 Difference mm/Hg Respiratory Index Hgb O2 Saturation (95.0-98.0) % Vent Mode Mechanical Rate FiO2 % Tidal Volume PEEP Sodium 135 (132-148) mmol/L Potassium 4.0 (3.6-5.2) mmol/L Chloride 96 L (98-107) mmol/L Carbon Dioxide 23 (22-30) mmol/L Anion Gap 20 (10-20) BUN 28 H (7-17) mg/dL Creatinine 1.8 H (0.7-1.2) MG/DL Est GFR ( Amer) 33 Est GFR (Non-Af Amer) 28 POC Glucose (mg/dL) 218 H (65-110) mg/dL Random Glucose 197 H (65-105) mg/dL Calcium 9.9 (8.6-10.4) mg/dl Phosphorus 3.6 (2.5-4.5) mg/dL Magnesium 1.8 (1.6-2.3) mg/dL Total Bilirubin 10.6 H (0.2-1.3) mg/dL AST 42 H (14-36) U/L ALT 18 (9-52) U/L Alkaline Phosphatase 227 H (38-126) U/L Total Protein 6.0 L (6.3-8.3) g/dL Albumin 2.2 L (3.5-5.0) g/dL Globulin 3.7 (2.2-3.9) gm/dL Albumin/Globulin Ratio 0.6 L (1.0-2.1) 11/25/16 11/25/16 11/25/16 Range/Units 05:48 05:23 00:08 WBC (4.8-10.8) K/uL RBC (3.80-5.20) Mil/uL Hgb (11.0-16.0) g/dL Hct (34.0-47.0) % MCV (81.0-99.0) fL MCH (27.0-31.0) pg MCHC (33.0-37.0) g/dL RDW (11.5-14.5) % Plt Count (130-400) K/uL MPV (7.2-11.7) fL Neut % (Auto) (50.0-75.0) % Lymph % (Auto) (20.0-40.0) % [place] % (Auto) (0.0-10.0) % Eos % (Auto) (0.0-4.0) % Baso % (Auto) (0.0-2.0) % Neut # (1.8-7.0) K/uL Lymph # (1.0-4.3) K/uL [place] # (0.0-0.8) K/uL Eos # (0.0-0.7) K/uL Baso # (0.0-0.2) K/uL Neutrophils % (Manual) (50-75) % Band Neutrophils % (0-2) % Lymphocytes % (Manual) (20-40) % Monocytes % (Manual) (0-10) % Eosinophils % (Manual) (0-4) % Basophils % (Manual) (0-2) % Nucleated RBC % (0-0) % Platelet Estimate (NORMAL) Polychromasia Hypochromasia (manual) Poikilocytosis (manual Anisocytosis (manual) Target Cells Ovalocytes Puncture Site R rad pCO2 27 L (35-45) mm/Hg pO2 54 L (80-100) mm/Hg HCO3 19.6 L (21-28) mmol/L ABG pH 7.41 (7.35-7.45) ABG Total CO2 17.9 L (22-28) mmol/L ABG O2 Saturation 94.6 L (95-98) % ABG Base Excess -6.8 L (-2.0-3.0) mmol/L ABG Hemoglobin 7.3 L (11.7-17.4) g/dL ABG Carboxyhemoglobin 2.8 H (0.5-1.5) % POC ABG HHb (Measured) 5.1 H (0.0-5.0) % ABG Methemoglobin 2.1 (0.0-3.0) % [place] Test Pos A-a O2 Difference 269.0 mm/Hg Respiratory Index 5.0 Hgb O2 Saturation 90.1 L (95.0-98.0) % Vent Mode Prvc Mechanical Rate 14 FiO2 50.0 % Tidal Volume 350 PEEP 5 Sodium (132-148) mmol/L Potassium (3.6-5.2) mmol/L Chloride (98-107) mmol/L Carbon Dioxide (22-30) mmol/L Anion Gap (10-20) BUN (7-17) mg/dL Creatinine (0.7-1.2) MG/DL Est GFR ( Amer) Est GFR (Non-Af Amer) POC Glucose (mg/dL) 214 H 194 H (65-110) mg/dL Random Glucose (65-105) mg/dL Calcium (8.6-10.4) mg/dl Phosphorus (2.5-4.5) mg/dL Magnesium (1.6-2.3) mg/dL Total Bilirubin (0.2-1.3) mg/dL AST (14-36) U/L ALT (9-52) U/L Alkaline Phosphatase (38-126) U/L Total Protein (6.3-8.3) g/dL Albumin (3.5-5.0) g/dL Globulin (2.2-3.9) gm/dL Albumin/Globulin Ratio (1.0-2.1) 11/24/16 11/24/16 Range/Units 18:03 12:01 WBC (4.8-10.8) K/uL RBC (3.80-5.20) Mil/uL Hgb (11.0-16.0) g/dL Hct (34.0-47.0) % MCV (81.0-99.0) fL MCH (27.0-31.0) pg MCHC (33.0-37.0) g/dL RDW (11.5-14.5) % Plt Count (130-400) K/uL MPV (7.2-11.7) fL Neut % (Auto) (50.0-75.0) % Lymph % (Auto) (20.0-40.0) % [place] % (Auto) (0.0-10.0) % Eos % (Auto) (0.0-4.0) % Baso % (Auto) (0.0-2.0) % Neut # (1.8-7.0) K/uL Lymph # (1.0-4.3) K/uL [place] # (0.0-0.8) K/uL Eos # (0.0-0.7) K/uL Baso # (0.0-0.2) K/uL Neutrophils % (Manual) (50-75) % Band Neutrophils % (0-2) % Lymphocytes % (Manual) (20-40) % Monocytes % (Manual) (0-10) % Eosinophils % (Manual) (0-4) % Basophils % (Manual) (0-2) % Nucleated RBC % (0-0) % Platelet Estimate (NORMAL) Polychromasia Hypochromasia (manual) Poikilocytosis (manual Anisocytosis (manual) Target Cells Ovalocytes Puncture Site pCO2 (35-45) mm/Hg pO2 (80-100) mm/Hg HCO3 (21-28) mmol/L ABG pH (7.35-7.45) ABG Total CO2 (22-28) mmol/L ABG O2 Saturation (95-98) % ABG Base Excess (-2.0-3.0) mmol/L ABG Hemoglobin (11.7-17.4) g/dL ABG Carboxyhemoglobin (0.5-1.5) % POC ABG HHb (Measured) (0.0-5.0) % ABG Methemoglobin (0.0-3.0) % [place] Test A-a O2 Difference mm/Hg Respiratory Index Hgb O2 Saturation (95.0-98.0) % Vent Mode Mechanical Rate FiO2 % Tidal Volume PEEP Sodium (132-148) mmol/L Potassium (3.6-5.2) mmol/L Chloride (98-107) mmol/L Carbon Dioxide (22-30) mmol/L Anion Gap (10-20) BUN (7-17) mg/dL Creatinine (0.7-1.2) MG/DL Est GFR ( Amer) Est GFR (Non-Af Amer) POC Glucose (mg/dL) 164 H 140 H (65-110) mg/dL Random Glucose (65-105) mg/dL Calcium (8.6-10.4) mg/dl Phosphorus (2.5-4.5) mg/dL Magnesium (1.6-2.3) mg/dL Total Bilirubin (0.2-1.3) mg/dL AST (14-36) U/L ALT (9-52) U/L Alkaline Phosphatase (38-126) U/L Total Protein (6.3-8.3) g/dL Albumin (3.5-5.0) g/dL Globulin (2.2-3.9) gm/dL Albumin/Globulin Ratio (1.0-2.1) Laboratory Results - last 24 hr 11/24/16 11/24/16 11/25/16 12:01 18:03 00:08 WBC RBC Hgb Hct MCV MCH MCHC RDW Plt Count MPV Neut % (Auto) Lymph % (Auto) [place] % (Auto) Eos % (Auto) Baso % (Auto) Neut # Lymph # [place] # Eos # Baso # Neutrophils % (Manual) Band Neutrophils % Lymphocytes % (Manual) Monocytes % (Manual) Eosinophils % (Manual) Basophils % (Manual) Nucleated RBC % Platelet Estimate Polychromasia Hypochromasia (manual) Poikilocytosis (manual Anisocytosis (manual) Target Cells Ovalocytes Puncture Site pCO2 pO2 HCO3 ABG pH ABG Total CO2 ABG O2 Saturation ABG Base Excess ABG Hemoglobin ABG Carboxyhemoglobin POC ABG HHb (Measured) ABG Methemoglobin [place] Test A-a O2 Difference Respiratory Index Hgb O2 Saturation Vent Mode Mechanical Rate FiO2 Tidal Volume PEEP Sodium Potassium Chloride Carbon Dioxide Anion Gap BUN Creatinine Est GFR ( Amer) Est GFR (Non-Af Amer) POC Glucose (mg/dL) 140 H 164 H 194 H Random Glucose Calcium Phosphorus Magnesium Total Bilirubin AST ALT Alkaline Phosphatase Total Protein Albumin Globulin Albumin/Globulin Ratio 11/25/16 11/25/16 11/25/16 05:23 05:48 06:17 WBC RBC Hgb Hct MCV MCH MCHC RDW Plt Count MPV Neut % (Auto) Lymph % (Auto) [place] % (Auto) Eos % (Auto) Baso % (Auto) Neut # Lymph # [place] # Eos # Baso # Neutrophils % (Manual) Band Neutrophils % Lymphocytes % (Manual) Monocytes % (Manual) Eosinophils % (Manual) Basophils % (Manual) Nucleated RBC % Platelet Estimate Polychromasia Hypochromasia (manual) Poikilocytosis (manual Anisocytosis (manual) Target Cells Ovalocytes Puncture Site R rad pCO2 27 L pO2 54 L HCO3 19.6 L ABG pH 7.41 ABG Total CO2 17.9 L ABG O2 Saturation 94.6 L ABG Base Excess -6.8 L ABG Hemoglobin 7.3 L ABG Carboxyhemoglobin 2.8 H POC ABG HHb (Measured) 5.1 H ABG Methemoglobin 2.1 [place] Test Pos A-a O2 Difference 269.0 Respiratory Index 5.0 Hgb O2 Saturation 90.1 L Vent Mode Prvc Mechanical Rate 14 FiO2 50.0 Tidal Volume 350 PEEP 5 Sodium 135 Potassium 4.0 Chloride 96 L Carbon Dioxide 23 Anion Gap 20 BUN 28 H Creatinine 1.8 H Est GFR ( Amer) 33 Est GFR (Non-Af Amer) 28 POC Glucose (mg/dL) 214 H Random Glucose 197 H Calcium 9.9 Phosphorus 3.6 Magnesium 1.8 Total Bilirubin 10.6 H AST 42 H ALT 18 Alkaline Phosphatase 227 H Total Protein 6.0 L Albumin 2.2 L Globulin 3.7 Albumin/Globulin Ratio 0.6 L 11/25/16 11/25/16 06:19 12:30 WBC 21.6 H RBC 3.01 L Hgb 9.5 L Hct 28.8 L MCV 95.8 MCH 31.6 H MCHC 33.0 RDW 19.0 H Plt Count 60 L MPV 11.6 Neut % (Auto) 86.3 H Lymph % (Auto) 5.8 L [place] % (Auto) 6.0 Eos % (Auto) 0.8 Baso % (Auto) 1.1 Neut # 18.7 H Lymph # 1.2 [place] # 1.3 H Eos # 0.2 Baso # 0.2 Neutrophils % (Manual) 87 H Band Neutrophils % 1 Lymphocytes % (Manual) 7 L Monocytes % (Manual) 3 Eosinophils % (Manual) 1 Basophils % (Manual) 1 Nucleated RBC % 1 H Platelet Estimate Decreased L Polychromasia Slight Hypochromasia (manual) Slight Poikilocytosis (manual Slight Anisocytosis (manual) Slight Target Cells Slight Ovalocytes Slight Puncture Site pCO2 pO2 HCO3 ABG pH ABG Total CO2 ABG O2 Saturation ABG Base Excess ABG Hemoglobin ABG Carboxyhemoglobin POC ABG HHb (Measured) ABG Methemoglobin [place] Test A-a O2 Difference Respiratory Index Hgb O2 Saturation Vent Mode Mechanical Rate FiO2 Tidal Volume PEEP Sodium Potassium Chloride Carbon Dioxide Anion Gap BUN Creatinine Est GFR ( Amer) Est GFR (Non-Af Amer) POC Glucose (mg/dL) 218 H Random Glucose Calcium Phosphorus Magnesium Total Bilirubin AST ALT Alkaline Phosphatase Total Protein Albumin Globulin Albumin/Globulin Ratio Critical Care Progress Note - Nutrition Nutrition: Nutrition Category Date Time Status NPO Diet [DIET] Diets 11/17/16 Breakfast Active Assessment/Plan (1) Leucocytosis Current Visit: Yes Status: Acute Attending/Attestation - Attestation I have personally seen and examined this patient.: Yes I have fully participated in the care of the patient.: Yes I have reviewed all pertinent clinical information: Yes Notes (Text): 11/25/16 15:19 I have seen and examined the patient. Medical records, lab studies, and imaging were reviewed by me and a management plan was formulated on multidisciplinary rounds with resident Dr. Anne. I agree with their above documented assessment and plan. Chronic respiratory failure, on vent, Patient's hypoxia is getting worse, increasing FiO2. Not able to titrate off pressors. Septic shock with a high mortality risk. Continue current treatment. Critical Care Time 35 minutes. Multi-disciplinary rounds were performed with house staff, nursing, speech therapy, respiratory therapy, pharmacy and nutrition with integrated input from the primary team/attending and other consulting services. The documented time is cumulative and includes review of patient data/exams/labs/chart review and examination of the patient on rounds and throughout the day; time is exclusive of any procedures or teaching time.
--- NOTE | 2016-11-25 17:24 | CP.PCM.PN ---
Subjective - Date & Time of Evaluation Date of Evaluation: 11/25/16 Time of Evaluation: 16:50 - Subjective Subjective: nonverbal on respirator HD today daughter at bedside on levophed unable to obtain ROS due to mental status Objective - Vital Signs/Intake and Output Vital Signs (last 24 hours): Temp Pulse Resp BP Pulse Ox 99.9 F H 99 H 21 101/43 L 100 11/25/16 16:00 11/25/16 15:22 11/25/16 15:22 11/25/16 15:22 11/25/16 15:22 Intake and Output: 11/25/16 11/25/16 06:59 18:59 Intake Total 851.2 690 Balance 851.2 690 - Medications Medications: Current Medications Acetaminophen (Tylenol 650mg/20.3ml Solution Ud) 650 mg NG Q6 PRN PRN Reason: temp above 101 Last Admin: 11/23/16 05:57 Dose: 650 mg Albuterol/Ipratropium (Duoneb 3 Mg/0.5 Mg (3 Ml) Ud) 3 ml INH RQ6 [facility] Last Admin: 11/25/16 13:15 Dose: 3 ml Epoetin Sly (Procrit) 10,000 unit IV MWF [facility] Last Admin: 11/23/16 10:29 Dose: 10,000 unit Hydromorphone HCl (Dilaudid) 0.5 mg IVP Q6H PRN PRN Reason: Pain, severe (8-10) Last Admin: 11/22/16 15:20 Dose: 0.5 mg Norepinephrine Bitartrate 4 mg (/ Sodium Chloride) 254 mls @ 15.24 mls/hr IV .[id number] PRN; Protocol; 4 MCG/MIN PRN Reason: TITRATE PER MD ORDER Last Admin: 11/25/16 02:53 Dose: 1.99 mcg/min, 7.58 mls/hr Insulin Human Regular (Novolin R) 0 unit SC Q6 [facility] PRN Reason: Protocol Last Admin: 11/25/16 13:24 Dose: 2 unit Levothyroxine Sodium (Synthroid) 175 mcg PO DAILY@0630 [facility] Last Admin: 11/25/16 06:14 Dose: 175 mcg Pantoprazole Sodium (Protonix Inj) 40 mg IVP DAILY [facility] Last Admin: 11/25/16 10:47 Dose: 40 mg - Labs Labs: 11/25/16 06:19 11/25/16 06:17 PT 19.5 SECONDS (9.7-12.2) H 10/28/16 08:07 INR 1.7 10/28/16 08:07 APTT 49 SECONDS (21-34) H 10/25/16 16:33 - Head Exam Head Exam: ATRAUMATIC - ENT Exam ENT Exam: Mucous Membranes Dry - Neck Exam Neck Exam: Full ROM - Respiratory Exam Respiratory Exam: Decreased Breath Sounds. 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
[2016-11-25] MEDS: Epoetin Alfa 10,000 unit/ml Dialysis IV SCH (18:45)
--- NOTE | 2016-11-25 22:13 | CP.PCM.PN ---
Subjective - Date & Time of Evaluation Date of Evaluation: 11/25/16 Time of Evaluation: 22:12 - Subjective Subjective: Discussion is currently not feeling well. On ventilator. Overall prognosis is poor. DNR noted. I spoke to the patient daughter. Patient is considering about the terminal extubation, and the possible hospice. We'll do the hemodialysis today, if there is no improvement in the oxygen saturation by Monday patient daughter will decide about the terminal extra patient. We'll follow the patient Objective - Vital Signs/Intake and Output Vital Signs (last 24 hours): Temp Pulse Resp BP Pulse Ox 99.4 F 90 20 104/46 L 100 11/25/16 20:00 11/25/16 21:30 11/25/16 21:30 11/25/16 21:30 11/25/16 21:30 Intake and Output: 11/25/16 11/26/16 18:59 06:59 Intake Total 910.0 362.9 Balance 910.0 362.9 - Medications Medications: Current Medications Acetaminophen (Tylenol 650mg/20.3ml Solution Ud) 650 mg NG Q6 PRN PRN Reason: temp above 101 Last Admin: 11/23/16 05:57 Dose: 650 mg Albuterol/Ipratropium (Duoneb 3 Mg/0.5 Mg (3 Ml) Ud) 3 ml INH RQ6 [facility] Last Admin: 11/25/16 19:44 Dose: Not Given Epoetin Sly (Procrit) 10,000 unit IV MWF [facility] Last Admin: 11/25/16 18:45 Dose: 10,000 unit Hydromorphone HCl (Dilaudid) 0.5 mg IVP Q6H PRN PRN Reason: Pain, severe (8-10) Last Admin: 11/22/16 15:20 Dose: 0.5 mg Norepinephrine Bitartrate 4 mg (/ Sodium Chloride) 254 mls @ 15.24 mls/hr IV .[id number] PRN; Protocol; 4 MCG/MIN PRN Reason: TITRATE PER MD ORDER Last Titration: 11/25/16 21:11 Dose: 3 mcg/min, 11.43 mls/hr Insulin Human Regular (Novolin R) 0 unit SC Q6 [facility] PRN Reason: Protocol Last Admin: 11/25/16 18:00 Dose: Not Given Levothyroxine Sodium (Synthroid) 175 mcg PO DAILY@0630 [facility] Last Admin: 11/25/16 06:14 Dose: 175 mcg Pantoprazole Sodium (Protonix Inj) 40 mg IVP DAILY [facility] Last Admin: 11/25/16 10:47 Dose: 40 mg - Labs Labs: 11/25/16 06:19 11/25/16 06:17 PT 19.5 SECONDS (9.7-12.2) H 10/28/16 08:07 INR 1.7 10/28/16 08:07 APTT 49 SECONDS (21-34) H 10/25/16 16:33
[2016-11-26] MEDS: (Novolin R) Insulin Human Regular 100 units/ml vial SC SCH ×4 (00:36→18:29)
[2016-11-26] MEDS: Albuterol-Ipratrop 3 mg / 0.5 (3 ml) UD INH SCH ×4 (02:35→19:23)
[2016-11-26 05:28] LABS: ABG ALLEN TEST POS; ABG MECHANICAL RATE 14; ARTERIAL BLOOD GAS MODE PRVC; ARTERIAL BLOOD HGB O2 SAT 97.1 % (95.0-98.0); ATERIAL BLOOD GAS PEEP 5; CARBOXYHEMOGLOBIN 2.2 % (0.5-1.5); DRAW SITE RR; HHB -0.7 % (0.0-5.0); METHEMOGLOBIN 1.4 % (0.0-3.0)
[2016-11-26] MEDS: Levothyroxine 175 MCG TAB PO SCH (05:45)
[2016-11-26 06:33] LABS: BASO # 0.2 K/uL (0.0-0.2); BASO % 0.9 % (0.0-2.0); EOS # 0.1 K/uL (0.0-0.7); EOS % 0.6 % (0.0-4.0); HEMATOCRIT 27.4 % (34.0-47.0); LYMPH # 1.3 K/uL (1.0-4.3); LYMPH % 6.3 % (20.0-40.0); MEAN CORPUSCULAR HEMOGLOBIN 31.9 pg (27.0-31.0); MEAN CORPUSCULAR HGB CONC 32.5 g/dL (33.0-37.0); MEAN PLATELET VOLUME 11.6 fL (7.2-11.7); MONO # 1.2 K/uL (0.0-0.8); MONO % 5.5 % (0.0-10.0); NRBC % 0.1 % (0.0-2.0); PLATELET COUNT 66 K/uL (130-400); RED CELL DISTRIBUTION WIDTH 19.8 % (11.5-14.5)
[2016-11-26 06:43] LABS: BILIRUBIN,TOTAL 11.9 mg/dL (0.2-1.3)
[2016-11-26 06:44] LABS: ALB/GLOB RATIO 0.5 (1.0-2.1); CALCIUM 9.1 mg/dl (8.6-10.4); MAGNESIUM 1.7 mg/dL (1.6-2.3); PHOSPHOROUS 2.7 mg/dL (2.5-4.5); TOTAL PROTEIN 6.5 g/dL (6.3-8.3)
--- NOTE | 2016-11-26 08:11 | RAD ---
HISTORY: intubated COMPARISON: 11/24/2016 FINDINGS: LUNGS: Tracheostomy tube projecting to the right of the trachea. NG tube extending into the stomach. Right central venous catheter in stable position. Moderate to severe venous congestion. Diffuse increased interstitial lung markings which may represent underlying edema and or infiltrate. Moderate loculated right pleural effusion. Biapical pleural thickening with upper lobe granulomatous changes. PLEURA: As above. CARDIOVASCULAR: Cardiomegaly. Status post median sternotomy and CABG. Calcification at the aortic knob. OSSEOUS STRUCTURES: Degenerative changes in the spine and shoulders. VISUALIZED UPPER ABDOMEN: Normal. OTHER FINDINGS: None. IMPRESSION: Tracheostomy tube projecting to the right of the trachea. NG tube extending into the stomach. Right central venous catheter in stable position. Moderate to severe venous congestion. Diffuse increased interstitial lung markings which may represent underlying edema and or infiltrate. Moderate loculated right pleural effusion. Biapical pleural thickening with upper lobe granulomatous changes.
[2016-11-26 09:45] LABS: BASOPHIL 2 % (0-2); NEUTROPHIL 86 % (50-75); TOTAL CELLS COUNTED 100
[2016-11-26 09:47] LABS: SPHEROCYTES SLIGHT
--- NOTE | 2016-11-26 10:58 | CP.PCM.PN ---
Subjective - Date & Time of Evaluation Date of Evaluation: 11/25/16 Time of Evaluation: 19:10 - Subjective Subjective: Patient seen and evaluated Patient now DNR Poor prognosis Possible terminal extubation if family agreeable Objective - Vital Signs/Intake and Output Vital Signs (last 24 hours): Temp Pulse Resp BP Pulse Ox 98.3 F 89 16 84/35 L 100 11/26/16 10:00 11/26/16 10:06 11/26/16 10:06 11/26/16 10:06 11/26/16 10:06 Intake and Output: 11/26/16 11/26/16 06:59 18:59 Intake Total 991.9 210.0 Balance 991.9 210.0 - Medications Medications: Current Medications Acetaminophen (Tylenol 650mg/20.3ml Solution Ud) 650 mg NG Q6 PRN PRN Reason: temp above 101 Last Admin: 11/23/16 05:57 Dose: 650 mg Albuterol/Ipratropium (Duoneb 3 Mg/0.5 Mg (3 Ml) Ud) 3 ml INH RQ6 [facility] Last Admin: 11/26/16 07:29 Dose: 3 ml Epoetin Sly (Procrit) 10,000 unit IV MWF [facility] Last Admin: 11/25/16 18:45 Dose: 10,000 unit Hydromorphone HCl (Dilaudid) 0.5 mg IVP Q6H PRN PRN Reason: Pain, severe (8-10) Last Admin: 11/22/16 15:20 Dose: 0.5 mg Norepinephrine Bitartrate 4 mg (/ Sodium Chloride) 254 mls @ 15.24 mls/hr IV .[id number] PRN; Protocol; 4 MCG/MIN PRN Reason: TITRATE PER MD ORDER Last Titration: 11/26/16 05:13 Dose: 1.96 mcg/min, 7.5 mls/hr Insulin Human Regular (Novolin R) 0 unit SC Q6 [facility] PRN Reason: Protocol Last Admin: 11/26/16 05:30 Dose: Not Given Levothyroxine Sodium (Synthroid) 175 mcg PO DAILY@0630 [facility] Last Admin: 11/26/16 05:45 Dose: 175 mcg Pantoprazole Sodium (Protonix Inj) 40 mg IVP DAILY [facility] Last Admin: 11/26/16 09:33 Dose: 40 mg - Labs Labs: 11/26/16 06:19 11/26/16 06:14 PT 19.5 SECONDS (9.7-12.2) H 10/28/16 08:07 INR 1.7 10/28/16 08:07 APTT 49 SECONDS (21-34) H 10/25/16 16:33
--- NOTE | 2016-11-26 11:32 | CP.PCM.PN ---
Subjective - Date & Time of Evaluation Date of Evaluation: 11/26/16 Time of Evaluation: 11:30 - Subjective Subjective: Notes reviewed Considerations for terminal care noted Remains on vent Tolerated dialysis 11/25 Does not appear in acute distress ROS unobtainable due to ams and trach on vent Objective - Vital Signs/Intake and Output Vital Signs (last 24 hours): Temp Pulse Resp BP Pulse Ox 98.3 F 96 H 19 98/44 L 100 11/26/16 10:00 11/26/16 11:06 11/26/16 11:06 11/26/16 11:06 11/26/16 11:06 Intake and Output: 11/26/16 11/26/16 06:59 18:59 Intake Total 991.9 252.5 Balance 991.9 252.5 - Medications Medications: Current Medications Acetaminophen (Tylenol 650mg/20.3ml Solution Ud) 650 mg NG Q6 PRN PRN Reason: temp above 101 Last Admin: 11/23/16 05:57 Dose: 650 mg Albuterol/Ipratropium (Duoneb 3 Mg/0.5 Mg (3 Ml) Ud) 3 ml INH RQ6 [facility] Last Admin: 11/26/16 07:29 Dose: 3 ml Epoetin Sly (Procrit) 10,000 unit IV MWF [facility] Last Admin: 11/25/16 18:45 Dose: 10,000 unit Hydromorphone HCl (Dilaudid) 0.5 mg IVP Q6H PRN PRN Reason: Pain, severe (8-10) Last Admin: 11/22/16 15:20 Dose: 0.5 mg Norepinephrine Bitartrate 4 mg (/ Sodium Chloride) 254 mls @ 15.24 mls/hr IV .[id number] PRN; Protocol; 4 MCG/MIN PRN Reason: TITRATE PER MD ORDER Last Titration: 11/26/16 05:13 Dose: 1.96 mcg/min, 7.5 mls/hr Insulin Human Regular (Novolin R) 0 unit SC Q6 [facility] PRN Reason: Protocol Last Admin: 11/26/16 05:30 Dose: Not Given Levothyroxine Sodium (Synthroid) 175 mcg PO DAILY@0630 [facility] Last Admin: 11/26/16 05:45 Dose: 175 mcg Pantoprazole Sodium (Protonix Inj) 40 mg IVP DAILY [facility] Last Admin: 11/26/16 09:33 Dose: 40 mg - Labs Labs: 11/26/16 06:19 11/26/16 06:14 PT 19.5 SECONDS (9.7-12.2) H 10/28/16 08:07 INR 1.7 10/28/16 08:07 APTT 49 SECONDS (21-34) H 10/25/16 16:33 - Constitutional Appears: Older Than Stated Age, Chronically Ill - Head Exam Head Exam: ATRAUMATIC, NORMAL INSPECTION - ENT Exam ENT Exam: Mucous Membranes Moist Additional comments: trach site clean - Neck Exam Neck Exam: absent: Lymphadenopathy, Thyromegaly - Respiratory Exam Respiratory Exam: Rhonchi. absent: Wheezes - Cardiovascular Exam Cardiovascular Exam: +S1, +S2. absent: Rubs - GI/Abdominal Exam GI & Abdominal Exam: Soft, Normal Bowel Sounds - Extremities Exam Extremities Exam: absent: Joint Swelling, Pedal Edema - Neurological Exam Neurological Exam: Awake. absent: Alert, Oriented x3 Assessment and Plan (1) Acute on chronic renal failure Status: Acute (2) Diabetes mellitus Status: Acute (3) CHF (congestive heart failure) Status: Chronic (4) ESRD (end stage renal disease) on dialysis Status: Chronic (5) Sepsis Status: Acute - Assessment and Plan (Free Text) Assessment: Maintain dialysis schedule unless family changes level of care Vent management and supportive care Next dialysis 11/28
--- NOTE | 2016-11-26 17:29 | CP.CCUPN ---
CCU Subjective - Physician Review Events Since Last Encounter (Free Text): 11/26/16 17:28 comatose CCU Objective - Vital Signs / Intake & Output Vital Signs (Last 4 hours): Vital Signs Temp Pulse Resp BP Pulse Ox 11/26/16 16:00 77 14 100 11/26/16 15:51 77 23 104/28 L 100 11/26/16 15:47 79 19 85/33 L 100 11/26/16 15:45 78 12 76/26 L 99 11/26/16 15:36 79 16 82/29 L 100 11/26/16 15:26 81 15 82/31 L 100 11/26/16 15:19 82 15 84/32 L 100 11/26/16 15:08 86 13 74/35 L 100 11/26/16 15:06 87 12 73/30 L 100 11/26/16 15:00 88 15 100 11/26/16 14:51 95 H 17 82/33 L 100 11/26/16 14:36 89 17 92/42 L 100 11/26/16 14:21 90 15 91/39 L 100 11/26/16 14:06 88 16 84/37 L 100 11/26/16 14:00 98.4 F 88 16 100 11/26/16 13:51 87 17 82/37 L 100 11/26/16 13:36 86 13 85/36 L 100 Intake and Output (Last 8hrs): Intake & Output 11/26/16 11/26/16 11/26/16 06:59 14:59 22:59 Intake Total 562.8 389.3 73.8 Balance 562.8 389.3 73.8 Intake: IV 40 13 0 Intake, IV Amount 242.8 96.3 3.8 Right Distal Port PICC 160 40 Right Proximal Port PICC 82.8 56.3 3.8 Tube Feeding 280 280 70 Other: # Bowel Movements 1 0 0 - Physical Exam Physical Exam Limitations: Positive for: Altered Mental Status Head: Positive for: Atraumatic, Normocephalic Pupils: Positive for: PERRL Extroacular Muscles: Negative for: EOMI Conjunctiva: Positive for: Icteric Mouth: Positive for: Dry. Negative for: Moist Mucous Membranes Nose (Internal): Positive for: Other (NGT in place) Neck: Positive for: Other (trach in place) Respiratory/Chest: Positive for: Decreased Breath Sounds, Rhonchi. Negative for : Clear to Auscultation, Respiratory Distress, Accessory Muscle Use Cardiovascular: Positive for: Normal S1, S2. Negative for: Murmurs, Tachycardic , Bradycardic Abdomen: Positive for: Other (+bowel sounds). Negative for: Distention, Hernias Rectal: Positive for: Gross Blood Upper Extremity: Positive for: Cyanosis, Other (cold fingers, ischemic 2-4 digits on left hand ). Negative for: NORMAL PULSES, Neurovascularly Intact, Capillary Refill < 2s Lower Extremity: Positive for: Edema. Negative for: NORMAL PULSES Neurological: Negative for: GCS=15, Speech Normal Skin: Positive for: Cold (bilateral hands), Other (gangrenous fingertips). Negative for: Warm Psychiatric: Positive for: Other (non-verbal ). Negative for: Alert, Oriented x 3, Normal Insight, Normal Concentration - Medications Active Medications: Active Medications Generic Name Dose Route Start Last Admin Trade Name Freq PRN Reason Stop Dose Admin Acetaminophen 650 mg 11/23/16 00:09 11/23/16 05:57 Tylenol 650mg/20.3ml Solution Ud NG 650 mg Q6 PRN Administration temp above 101 Albuterol/Ipratropium 3 ml 11/12/16 14:00 11/26/16 13:06 Duoneb 3 Mg/0.5 Mg (3 Ml) Ud INH 3 ml RQ6 REKHA Administration Epoetin Sly 10,000 unit 11/21/16 18:30 11/25/16 18:45 Procrit IV 10,000 unit MWF REKHA Administration Hydromorphone HCl 0.5 mg 11/22/16 14:57 11/22/16 15:20 Dilaudid IVP 0.5 mg Q6H PRN Administration Pain, severe (8-10) Norepinephrine Bitartrate 4 mg 254 mls @ 15.24 mls/hr 11/16/16 20:28 15:16 / Sodium Chloride IV 1 mcg/min .[id number] PRN 3.81 mls/hr TITRATE PER MD ORDER Titration Protocol 4 MCG/MIN Insulin Human Regular 0 unit 11/16/16 12:00 11/26/16 12:41 Novolin R SC Not Given Q6 REKHA Protocol Levothyroxine Sodium 175 mcg 11/18/16 06:30 11/26/16 05:45 Synthroid PO 175 mcg DAILY@0630 REKHA Administration Pantoprazole Sodium 40 mg 11/05/16 11:15 11/26/16 09:33 Protonix Inj IVP 40 mg DAILY REKHA Administration - Patient Studies Lab Studies: Lab Studies 11/26/16 11/26/16 11/26/16 Range/Units 11:31 06:19 06:14 WBC 21.0 H (4.8-10.8) K/uL RBC 2.80 L (3.80-5.20) Mil/uL Hgb 8.9 L (11.0-16.0) g/dL Hct 27.4 L (34.0-47.0) % MCV 98.0 D (81.0-99.0) fL MCH 31.9 H (27.0-31.0) pg MCHC 32.5 L (33.0-37.0) g/dL RDW 19.8 H (11.5-14.5) % Plt Count 66 L (130-400) K/uL MPV 11.6 (7.2-11.7) fL Neut % (Auto) 86.7 H (50.0-75.0) % Lymph % (Auto) 6.3 L (20.0-40.0) % [place] % (Auto) 5.5 (0.0-10.0) % Eos % (Auto) 0.6 (0.0-4.0) % Baso % (Auto) 0.9 (0.0-2.0) % Neut # 18.2 H (1.8-7.0) K/uL Lymph # 1.3 (1.0-4.3) K/uL [place] # 1.2 H (0.0-0.8) K/uL Eos # 0.1 (0.0-0.7) K/uL Baso # 0.2 (0.0-0.2) K/uL Neutrophils % (Manual) 86 H (50-75) % Band Neutrophils % 1 (0-2) % Lymphocytes % (Manual) 6 L (20-40) % Monocytes % (Manual) 5 (0-10) % Basophils % (Manual) 2 (0-2) % Platelet Estimate Decreased L (NORMAL) Polychromasia Slight Hypochromasia (manual) Slight Poikilocytosis (manual Slight Anisocytosis (manual) Moderate Microcytosis (manual) Slight Macrocytosis (manual) Slight Spherocytes Slight Target Cells Slight Ovalocytes Slight Puncture Site pCO2 (35-45) mm/Hg pO2 (80-100) mm/Hg HCO3 (21-28) mmol/L ABG pH (7.35-7.45) ABG Total CO2 (22-28) mmol/L ABG O2 Saturation (95-98) % ABG Base Excess (-2.0-3.0) mmol/L ABG Hemoglobin (11.7-17.4) g/dL ABG Carboxyhemoglobin (0.5-1.5) % POC ABG HHb (Measured) (0.0-5.0) % ABG Methemoglobin (0.0-3.0) % [place] Test A-a O2 Difference mm/Hg Respiratory Index Hgb O2 Saturation (95.0-98.0) % Vent Mode Mechanical Rate FiO2 % Tidal Volume PEEP Sodium 137 (132-148) mmol/L Potassium 4.0 (3.6-5.2) mmol/L Chloride 94 L (98-107) mmol/L Carbon Dioxide 23 (22-30) mmol/L Anion Gap 24 H (10-20) BUN 21 H (7-17) mg/dL Creatinine 1.3 H (0.7-1.2) MG/DL Est GFR ( Amer) 48 Est GFR (Non-Af Amer) 40 POC Glucose (mg/dL) 195 H (65-110) mg/dL Random Glucose 185 H (65-105) mg/dL Calcium 9.1 (8.6-10.4) mg/dl Phosphorus 2.7 (2.5-4.5) mg/dL Magnesium 1.7 (1.6-2.3) mg/dL Total Bilirubin 11.9 H (0.2-1.3) mg/dL AST 44 H (14-36) U/L ALT 22 (9-52) U/L Alkaline Phosphatase 243 H (38-126) U/L Total Protein 6.5 (6.3-8.3) g/dL Albumin 2.3 L (3.5-5.0) g/dL Globulin 4.3 H (2.2-3.9) gm/dL Albumin/Globulin Ratio 0.5 L (1.0-2.1) 11/26/16 11/26/16 11/26/16 Range/Units 05:28 05:20 00:02 WBC (4.8-10.8) K/uL RBC (3.80-5.20) Mil/uL Hgb (11.0-16.0) g/dL Hct (34.0-47.0) % MCV (81.0-99.0) fL MCH (27.0-31.0) pg MCHC (33.0-37.0) g/dL RDW (11.5-14.5) % Plt Count (130-400) K/uL MPV (7.2-11.7) fL Neut % (Auto) (50.0-75.0) % Lymph % (Auto) (20.0-40.0) % [place] % (Auto) (0.0-10.0) % Eos % (Auto) (0.0-4.0) % Baso % (Auto) (0.0-2.0) % Neut # (1.8-7.0) K/uL Lymph # (1.0-4.3) K/uL [place] # (0.0-0.8) K/uL Eos # (0.0-0.7) K/uL Baso # (0.0-0.2) K/uL Neutrophils % (Manual) (50-75) % Band Neutrophils % (0-2) % Lymphocytes % (Manual) (20-40) % Monocytes % (Manual) (0-10) % Basophils % (Manual) (0-2) % Platelet Estimate (NORMAL) Polychromasia Hypochromasia (manual) Poikilocytosis (manual Anisocytosis (manual) Microcytosis (manual) Macrocytosis (manual) Spherocytes Target Cells Ovalocytes Puncture Site Rr pCO2 28 L (35-45) mm/Hg pO2 202 H (80-100) mm/Hg HCO3 26.3 (21-28) mmol/L ABG pH 7.54 H (7.35-7.45) ABG Total CO2 24.8 (22-28) mmol/L ABG O2 Saturation 100.7 H (95-98) % ABG Base Excess 1.8 (-2.0-3.0) mmol/L ABG Hemoglobin 9.4 L (11.7-17.4) g/dL ABG Carboxyhemoglobin 2.2 H (0.5-1.5) % POC ABG HHb (Measured) -0.7 L (0.0-5.0) % ABG Methemoglobin 1.4 (0.0-3.0) % [place] Test Pos A-a O2 Difference 333.0 mm/Hg Respiratory Index 1.6 Hgb O2 Saturation 97.1 (95.0-98.0) % Vent Mode Prvc Mechanical Rate 14 FiO2 80.0 % Tidal Volume 350 PEEP 5 Sodium (132-148) mmol/L Potassium (3.6-5.2) mmol/L Chloride (98-107) mmol/L Carbon Dioxide (22-30) mmol/L Anion Gap (10-20) BUN (7-17) mg/dL Creatinine (0.7-1.2) MG/DL Est GFR ( Amer) Est GFR (Non-Af Amer) POC Glucose (mg/dL) 195 H 170 H (65-110) mg/dL Random Glucose (65-105) mg/dL Calcium (8.6-10.4) mg/dl Phosphorus (2.5-4.5) mg/dL Magnesium (1.6-2.3) mg/dL Total Bilirubin (0.2-1.3) mg/dL AST (14-36) U/L ALT (9-52) U/L Alkaline Phosphatase (38-126) U/L Total Protein (6.3-8.3) g/dL Albumin (3.5-5.0) g/dL Globulin (2.2-3.9) gm/dL Albumin/Globulin Ratio (1.0-2.1) 11/25/16 Range/Units 17:34 WBC (4.8-10.8) K/uL RBC (3.80-5.20) Mil/uL Hgb (11.0-16.0) g/dL Hct (34.0-47.0) % MCV (81.0-99.0) fL MCH (27.0-31.0) pg MCHC (33.0-37.0) g/dL RDW (11.5-14.5) % Plt Count (130-400) K/uL MPV (7.2-11.7) fL Neut % (Auto) (50.0-75.0) % Lymph % (Auto) (20.0-40.0) % [place] % (Auto) (0.0-10.0) % Eos % (Auto) (0.0-4.0) % Baso % (Auto) (0.0-2.0) % Neut # (1.8-7.0) K/uL Lymph # (1.0-4.3) K/uL [place] # (0.0-0.8) K/uL Eos # (0.0-0.7) K/uL Baso # (0.0-0.2) K/uL Neutrophils % (Manual) (50-75) % Band Neutrophils % (0-2) % Lymphocytes % (Manual) (20-40) % Monocytes % (Manual) (0-10) % Basophils % (Manual) (0-2) % Platelet Estimate (NORMAL) Polychromasia Hypochromasia (manual) Poikilocytosis (manual Anisocytosis (manual) Microcytosis (manual) Macrocytosis (manual) Spherocytes Target Cells Ovalocytes Puncture Site pCO2 (35-45) mm/Hg pO2 (80-100) mm/Hg HCO3 (21-28) mmol/L ABG pH (7.35-7.45) ABG Total CO2 (22-28) mmol/L ABG O2 Saturation (95-98) % ABG Base Excess (-2.0-3.0) mmol/L ABG Hemoglobin (11.7-17.4) g/dL ABG Carboxyhemoglobin (0.5-1.5) % POC ABG HHb (Measured) (0.0-5.0) % ABG Methemoglobin (0.0-3.0) % [place] Test A-a O2 Difference mm/Hg Respiratory Index Hgb O2 Saturation (95.0-98.0) % Vent Mode Mechanical Rate FiO2 % Tidal Volume PEEP Sodium (132-148) mmol/L Potassium (3.6-5.2) mmol/L Chloride (98-107) mmol/L Carbon Dioxide (22-30) mmol/L Anion Gap (10-20) BUN (7-17) mg/dL Creatinine (0.7-1.2) MG/DL Est GFR ( Amer) Est GFR (Non-Af Amer) POC Glucose (mg/dL) 221 H (65-110) mg/dL Random Glucose (65-105) mg/dL Calcium (8.6-10.4) mg/dl Phosphorus (2.5-4.5) mg/dL Magnesium (1.6-2.3) mg/dL Total Bilirubin (0.2-1.3) mg/dL AST (14-36) U/L ALT (9-52) U/L Alkaline Phosphatase (38-126) U/L Total Protein (6.3-8.3) g/dL Albumin (3.5-5.0) g/dL Globulin (2.2-3.9) gm/dL Albumin/Globulin Ratio (1.0-2.1) Laboratory Results - last 24 hr 11/25/16 11/26/16 11/26/16 17:34 00:02 05:20 WBC RBC Hgb Hct MCV MCH MCHC RDW Plt Count MPV Neut % (Auto) Lymph % (Auto) [place] % (Auto) Eos % (Auto) Baso % (Auto) Neut # Lymph # [place] # Eos # Baso # Neutrophils % (Manual) Band Neutrophils % Lymphocytes % (Manual) Monocytes % (Manual) Basophils % (Manual) Platelet Estimate Polychromasia Hypochromasia (manual) Poikilocytosis (manual Anisocytosis (manual) Microcytosis (manual) Macrocytosis (manual) Spherocytes Target Cells Ovalocytes Puncture Site Rr pCO2 28 L pO2 202 H HCO3 26.3 ABG pH 7.54 H ABG Total CO2 24.8 ABG O2 Saturation 100.7 H ABG Base Excess 1.8 ABG Hemoglobin 9.4 L ABG Carboxyhemoglobin 2.2 H POC ABG HHb (Measured) -0.7 L ABG Methemoglobin 1.4 [place] Test Pos A-a O2 Difference 333.0 Respiratory Index 1.6 Hgb O2 Saturation 97.1 Vent Mode Prvc Mechanical Rate 14 FiO2 80.0 Tidal Volume 350 PEEP 5 Sodium Potassium Chloride Carbon Dioxide Anion Gap BUN Creatinine Est GFR ( Amer) Est GFR (Non-Af Amer) POC Glucose (mg/dL) 221 H 170 H Random Glucose Calcium Phosphorus Magnesium Total Bilirubin AST ALT Alkaline Phosphatase Total Protein Albumin Globulin Albumin/Globulin Ratio 11/26/16 11/26/16 11/26/16 05:28 06:14 06:19 WBC 21.0 H RBC 2.80 L Hgb 8.9 L Hct 27.4 L MCV 98.0 D MCH 31.9 H MCHC 32.5 L RDW 19.8 H Plt Count 66 L MPV 11.6 Neut % (Auto) 86.7 H Lymph % (Auto) 6.3 L [place] % (Auto) 5.5 Eos % (Auto) 0.6 Baso % (Auto) 0.9 Neut # 18.2 H Lymph # 1.3 [place] # 1.2 H Eos # 0.1 Baso # 0.2 Neutrophils % (Manual) 86 H Band Neutrophils % 1 Lymphocytes % (Manual) 6 L Monocytes % (Manual) 5 Basophils % (Manual) 2 Platelet Estimate Decreased L Polychromasia Slight Hypochromasia (manual) Slight Poikilocytosis (manual Slight Anisocytosis (manual) Moderate Microcytosis (manual) Slight Macrocytosis (manual) Slight Spherocytes Slight Target Cells Slight Ovalocytes Slight Puncture Site pCO2 pO2 HCO3 ABG pH ABG Total CO2 ABG O2 Saturation ABG Base Excess ABG Hemoglobin ABG Carboxyhemoglobin POC ABG HHb (Measured) ABG Methemoglobin [place] Test A-a O2 Difference Respiratory Index Hgb O2 Saturation Vent Mode Mechanical Rate FiO2 Tidal Volume PEEP Sodium 137 Potassium 4.0 Chloride 94 L Carbon Dioxide 23 Anion Gap 24 H BUN 21 H Creatinine 1.3 H Est GFR ( Amer) 48 Est GFR (Non-Af Amer) 40 POC Glucose (mg/dL) 195 H Random Glucose 185 H Calcium 9.1 Phosphorus 2.7 Magnesium 1.7 Total Bilirubin 11.9 H AST 44 H ALT 22 Alkaline Phosphatase 243 H Total Protein 6.5 Albumin 2.3 L Globulin 4.3 H Albumin/Globulin Ratio 0.5 L 11/26/16 11:31 WBC RBC Hgb Hct MCV MCH MCHC RDW Plt Count MPV Neut % (Auto) Lymph % (Auto) [place] % (Auto) Eos % (Auto) Baso % (Auto) Neut # Lymph # [place] # Eos # Baso # Neutrophils % (Manual) Band Neutrophils % Lymphocytes % (Manual) Monocytes % (Manual) Basophils % (Manual) Platelet Estimate Polychromasia Hypochromasia (manual) Poikilocytosis (manual Anisocytosis (manual) Microcytosis (manual) Macrocytosis (manual) Spherocytes Target Cells Ovalocytes Puncture Site pCO2 pO2 HCO3 ABG pH ABG Total CO2 ABG O2 Saturation ABG Base Excess ABG Hemoglobin ABG Carboxyhemoglobin POC ABG HHb (Measured) ABG Methemoglobin [place] Test A-a O2 Difference Respiratory Index Hgb O2 Saturation Vent Mode Mechanical Rate FiO2 Tidal Volume PEEP Sodium Potassium Chloride Carbon Dioxide Anion Gap BUN Creatinine Est GFR ( Amer) Est GFR (Non-Af Amer) POC Glucose (mg/dL) 195 H Random Glucose Calcium Phosphorus Magnesium Total Bilirubin AST ALT Alkaline Phosphatase Total Protein Albumin Globulin Albumin/Globulin Ratio Fingerstick Blood Sugar Results: 195 Review of Systems - Review of Systems Systems not reviewed;Unavailable: Altered Mental Status Critical Care Progress Note - Nutrition Nutrition: Nutrition Category Date Time Status NPO Diet [DIET] Diets 11/17/16 Breakfast Active Assessment/Plan (1) Leucocytosis Assessment and plan: 77yo F. PMHx stage renal disease on hemodialysis, acute on chronic systolic CHF (EF of 29%), right ureteral stent (replaced 12/04/15), diabetes mellitus type 2 , right ureteral stent thoracenteses for recurrent pleural effusions ( complicated by hydropneumothorax and hemothorax, 08/12/16), AV fistula (12/10/15 ) (previous bleeding complications, 02/22/16, and occlusion status post thrombectomy and percutaneous transluminal angioplasty with new anastomosis, 09/07), CAD with stent, hypothyroidism with myxedema coma, prolonged hospitalization since July 2016, severe protein calorie malnutrition, recent ischemic colitis with bleeding, gangrenous fingertips. Neuro: Comatose, in persistent vegetative state. Pulm: Chronic respiratory failure, trached on vent. CV: Septic shock, on Levophed, Will try to titrate off. continue Midodrine. Hem: Anemia of chronic disease and critical illness. Anemia worsened with GI bleed, transfusing with PRBC. Renal: End-stage renal disease on hemodialysis. Endo: Diabetes mellitus type 2, hypothyroidism and continue levothyroxine. GI: Nothing by mouth. tube feeds ID: chronically ill, all antibiotics stopped DVT proph - scd's, holding anticoagulation with recent GI bleed. GI proph - Protonix IV dolan for strict I/O's during acute illness Code status - DNR Patient is chronically and critically ill with no hope of recovery. This is been explained in detail, repeatedly to the daughter of the patient, now considering terminal extubation. Critical Care Time spent 35 minutes Multi-disciplinary rounds were performed with house staff, nursing, speech therapy, respiratory therapy, pharmacy and nutrition with integrated input from the primary team/attending and other consulting services. The documented time is cumulative and includes review of patient data/exams/labs/chart review and examination of the patient on rounds and throughout the day; time is exclusive of any procedures or teaching time. Current Visit: Yes Status: Acute
--- NOTE | 2016-11-26 17:50 | CP.PCM.PN ---
Subjective - Date & Time of Evaluation Date of Evaluation: 11/26/16 Time of Evaluation: 17:49 - Subjective Subjective: Condition remains same. Currently on ventilator. CPAP trial if possible. Family probably will decide about it terminal extubation. Will follow the patient Objective - Vital Signs/Intake and Output Vital Signs (last 24 hours): Temp Pulse Resp BP Pulse Ox 98.4 F 92 H 17 91/40 L 100 11/26/16 14:00 11/26/16 17:35 11/26/16 17:35 11/26/16 17:35 11/26/16 17:35 Intake and Output: 11/26/16 11/26/16 06:59 18:59 Intake Total 991.9 501.9 Balance 991.9 501.9 - Medications Medications: Current Medications Acetaminophen (Tylenol 650mg/20.3ml Solution Ud) 650 mg NG Q6 PRN PRN Reason: temp above 101 Last Admin: 11/23/16 05:57 Dose: 650 mg Albuterol/Ipratropium (Duoneb 3 Mg/0.5 Mg (3 Ml) Ud) 3 ml INH RQ6 [facility] Last Admin: 11/26/16 13:06 Dose: 3 ml Epoetin Sly (Procrit) 10,000 unit IV MWF [facility] Last Admin: 11/25/16 18:45 Dose: 10,000 unit Hydromorphone HCl (Dilaudid) 0.5 mg IVP Q6H PRN PRN Reason: Pain, severe (8-10) Last Admin: 11/22/16 15:20 Dose: 0.5 mg Norepinephrine Bitartrate 4 mg (/ Sodium Chloride) 254 mls @ 15.24 mls/hr IV .[id number] PRN; Protocol; 4 MCG/MIN PRN Reason: TITRATE PER MD ORDER Last Titration: 11/26/16 15:16 Dose: 1 mcg/min, 3.81 mls/hr Insulin Human Regular (Novolin R) 0 unit SC Q6 REKHA PRN Reason: Protocol Last Admin: 11/26/16 12:41 Dose: Not Given Levothyroxine Sodium (Synthroid) 175 mcg PO DAILY@0630 [facility] Last Admin: 11/26/16 05:45 Dose: 175 mcg Pantoprazole Sodium (Protonix Inj) 40 mg IVP DAILY [facility] Last Admin: 11/26/16 09:33 Dose: 40 mg - Labs Labs: 11/26/16 06:19 11/26/16 06:14 PT 19.5 SECONDS (9.7-12.2) H 10/28/16 08:07 INR 1.7 10/28/16 08:07 APTT 49 SECONDS (21-34) H 10/25/16 16:33
--- NOTE | 2016-11-26 21:49 | CP.PCM.PN ---
Subjective - Date & Time of Evaluation Date of Evaluation: 11/26/16 Time of Evaluation: 14:40 - Subjective Subjective: Patient seen and evaluated On Mechanical ventilation Poor prognosis Patient is DNR Possible Terminal extubation Objective - Vital Signs/Intake and Output Vital Signs (last 24 hours): Temp Pulse Resp BP Pulse Ox 100.2 F H 92 H 18 74/41 L 100 11/26/16 20:43 11/26/16 20:35 11/26/16 20:35 11/26/16 20:35 11/26/16 20:35 Intake and Output: 11/26/16 11/27/16 18:59 06:59 Intake Total 557.7 70 Balance 557.7 70 - Medications Medications: Current Medications Acetaminophen (Tylenol 650mg/20.3ml Solution Ud) 650 mg NG Q6 PRN PRN Reason: temp above 101 Last Admin: 11/23/16 05:57 Dose: 650 mg Albuterol/Ipratropium (Duoneb 3 Mg/0.5 Mg (3 Ml) Ud) 3 ml INH RQ6 [facility] Last Admin: 11/26/16 19:23 Dose: 3 ml Epoetin Sly (Procrit) 10,000 unit IV MWF [facility] Last Admin: 11/25/16 18:45 Dose: 10,000 unit Hydromorphone HCl (Dilaudid) 0.5 mg IVP Q6H PRN PRN Reason: Pain, severe (8-10) Last Admin: 11/22/16 15:20 Dose: 0.5 mg Norepinephrine Bitartrate 4 mg (/ Sodium Chloride) 254 mls @ 15.24 mls/hr IV .[id number] PRN; Protocol; 4 MCG/MIN PRN Reason: TITRATE PER MD ORDER Last Titration: 11/26/16 18:22 Dose: 0 mcg/min, 0 mls/hr Insulin Human Regular (Novolin R) 0 unit SC Q6 [facility] PRN Reason: Protocol Last Admin: 11/26/16 18:29 Dose: 2 unit Levothyroxine Sodium (Synthroid) 175 mcg PO DAILY@0630 [facility] Last Admin: 11/26/16 05:45 Dose: 175 mcg Pantoprazole Sodium (Protonix Inj) 40 mg IVP DAILY [facility] Last Admin: 11/26/16 09:33 Dose: 40 mg - Labs Labs: 11/26/16 06:19 11/26/16 06:14 PT 19.5 SECONDS (9.7-12.2) H 10/28/16 08:07 INR 1.7 10/28/16 08:07 APTT 49 SECONDS (21-34) H 10/25/16 16:33
[2016-11-27] MEDS: (Novolin R) Insulin Human Regular 100 units/ml vial SC SCH ×4 (00:47→18:13)
[2016-11-27] MEDS: Albuterol-Ipratrop 3 mg / 0.5 (3 ml) UD INH SCH ×4 (02:14→19:50)
[2016-11-27 06:08] LABS: ABG ALLEN TEST POS; ABG MECHANICAL RATE 14; ARTERIAL BLOOD GAS MODE PRVC; ARTERIAL BLOOD HGB O2 SAT 96.5 % (95.0-98.0); ATERIAL BLOOD GAS PEEP 5; CARBOXYHEMOGLOBIN 2.6 % (0.5-1.5); DRAW SITE RR; HHB -0.5 % (0.0-5.0); METHEMOGLOBIN 1.3 % (0.0-3.0)
[2016-11-27] MEDS: Levothyroxine 175 MCG TAB PO SCH (06:10)
[2016-11-27 06:43] LABS: BASO # 0.1 K/uL (0.0-0.2); BASO % 0.7 % (0.0-2.0); EOS # 0.1 K/uL (0.0-0.7); EOS % 0.6 % (0.0-4.0); HEMATOCRIT 24.9 % (34.0-47.0); LYMPH # 1.2 K/uL (1.0-4.3); MEAN CELL VOLUME 99.1 fL (81.0-99.0); MEAN CORPUSCULAR HEMOGLOBIN 33.3 pg (27.0-31.0); MEAN CORPUSCULAR HGB CONC 33.6 g/dL (33.0-37.0); MEAN PLATELET VOLUME 11.7 fL (7.2-11.7); MONO # 0.8 K/uL (0.0-0.8); MONO % 4.3 % (0.0-10.0); PLATELET COUNT 77 K/uL (130-400); RED CELL DISTRIBUTION WIDTH 21.2 % (11.5-14.5); WHITE BLOOD COUNT 19.8 K/uL (4.8-10.8)
[2016-11-27 06:45] LABS: POTASSIUM 3.8 mmol/L (3.6-5.2)
[2016-11-27 06:47] LABS: BILIRUBIN,TOTAL 10.8 mg/dL (0.2-1.3)
[2016-11-27 06:48] LABS: ALB/GLOB RATIO 0.5 (1.0-2.1); CALCIUM 9.2 mg/dl (8.6-10.4); PHOSPHOROUS 4.1 mg/dL (2.5-4.5); TOTAL PROTEIN 6.1 g/dL (6.3-8.3)
[2016-11-27 06:49] LABS: MAGNESIUM 1.7 mg/dL (1.6-2.3)
[2016-11-27 09:07] LABS: NEUTROPHIL 87 % (50-75); TOTAL CELLS COUNTED 100
[2016-11-27 09:09] LABS: LARGE PLATELETS PRESENT
--- NOTE | 2016-11-27 16:48 | CP.PCM.PN ---
Subjective - Date & Time of Evaluation Date of Evaluation: 11/27/16 Time of Evaluation: 16:47 - Subjective Subjective: Brunilda was thinking of terminal extubation. But after I spoke to the patient patient is reluctant at this time. Currently patient is a DNR. On dialysis. Episodes of low blood pressure noted. FiO2 60%. Unable to tolerate any CPAP at this time. We will continue the current treatment Objective - Vital Signs/Intake and Output Vital Signs (last 24 hours): Temp Pulse Resp BP Pulse Ox 96.8 F L 74 13 72/30 L 100 11/27/16 16:00 11/27/16 16:04 11/27/16 16:04 11/27/16 16:04 11/27/16 16:04 Intake and Output: 11/27/16 11/27/16 06:59 18:59 Intake Total 420 350 Balance 420 350 - Medications Medications: Current Medications Acetaminophen (Tylenol 650mg/20.3ml Solution Ud) 650 mg NG Q6 PRN PRN Reason: temp above 101 Last Admin: 11/23/16 05:57 Dose: 650 mg Albuterol/Ipratropium (Duoneb 3 Mg/0.5 Mg (3 Ml) Ud) 3 ml INH RQ6 [facility] Last Admin: 11/27/16 13:13 Dose: 3 ml Epoetin Sly (Procrit) 10,000 unit IV MWF [facility] Last Admin: 11/25/16 18:45 Dose: 10,000 unit Hydromorphone HCl (Dilaudid) 0.5 mg IVP Q6H PRN PRN Reason: Pain, severe (8-10) Last Admin: 11/22/16 15:20 Dose: 0.5 mg Norepinephrine Bitartrate 4 mg (/ Sodium Chloride) 254 mls @ 15.24 mls/hr IV .[id number] PRN; Protocol; 4 MCG/MIN PRN Reason: TITRATE PER MD ORDER Last Titration: 11/26/16 18:22 Dose: 0 mcg/min, 0 mls/hr Insulin Human Regular (Novolin R) 0 unit SC Q6 [facility] PRN Reason: Protocol Last Admin: 11/27/16 11:54 Dose: 2 unit Levothyroxine Sodium (Synthroid) 175 mcg PO DAILY@0630 [facility] Last Admin: 11/27/16 06:10 Dose: 175 mcg Pantoprazole Sodium (Protonix Inj) 40 mg IVP DAILY [facility] Last Admin: 11/27/16 10:36 Dose: 40 mg - Labs Labs: 11/27/16 06:31 11/27/16 06:31 PT 19.5 SECONDS (9.7-12.2) H 10/28/16 08:07 INR 1.7 10/28/16 08:07 APTT 49 SECONDS (21-34) H 10/25/16 16:33
--- NOTE | 2016-11-27 16:57 | CP.CCUPN ---
CCU Subjective - Physician Review Events Since Last Encounter (Free Text): 11/27/16 16:56 no changes, patient still comatose. CCU Objective - Vital Signs / Intake & Output Vital Signs (Last 4 hours): Vital Signs Temp Pulse Resp BP Pulse Ox 11/27/16 16:04 74 13 72/30 L 100 11/27/16 16:00 96.8 F L 77 18 100 11/27/16 15:51 79 17 76/33 L 100 11/27/16 15:00 84 19 100 11/27/16 14:51 86 18 90/40 L 100 11/27/16 14:12 82 17 81/34 L 100 11/27/16 14:00 81 18 100 11/27/16 13:51 80 16 78/34 L 100 11/27/16 13:44 79 18 79/34 L 100 11/27/16 13:41 79 19 74/31 L 100 11/27/16 13:39 79 17 73/31 L 100 11/27/16 13:11 80 19 73/32 L 100 11/27/16 13:00 85 19 100 Intake and Output (Last 8hrs): Intake & Output 11/27/16 11/27/16 11/27/16 06:59 14:59 22:59 Intake Total 280 280 70 Balance 280 280 70 Intake: Tube Feeding 280 280 70 Other: # Bowel Movements 1 1 1 - Physical Exam Narrative Physical Exam (Free Text): 11/27/16 16:56 cachectic Head: Positive for: Atraumatic, Normocephalic Pupils: Positive for: PERRL Extroacular Muscles: Negative for: EOMI Conjunctiva: Positive for: Icteric Mouth: Positive for: Dry. Negative for: Moist Mucous Membranes Nose (Internal): Positive for: Other (NGT in place) Neck: Positive for: Other (trach in place) Respiratory/Chest: Positive for: Decreased Breath Sounds, Rhonchi. Negative for : Clear to Auscultation, Respiratory Distress, Accessory Muscle Use Cardiovascular: Positive for: Normal S1, S2. Negative for: Murmurs, Tachycardic , Bradycardic Abdomen: Positive for: Other (+bowel sounds). Negative for: Distention, Hernias Rectal: Positive for: Gross Blood Upper Extremity: Positive for: Cyanosis, Other (cold fingers, ischemic 2-4 digits on left hand ). Negative for: NORMAL PULSES, Neurovascularly Intact, Capillary Refill < 2s Lower Extremity: Positive for: Edema. Negative for: NORMAL PULSES Neurological: Negative for: GCS=15, Speech Normal Skin: Positive for: Cold (bilateral hands), Other (gangrenous fingertips). Negative for: Warm Psychiatric: Positive for: Other (non-verbal ). Negative for: Alert, Oriented x 3, Normal Insight, Normal Concentration - Medications Active Medications: Active Medications Generic Name Dose Route Start Last Admin Trade Name Freq PRN Reason Stop Dose Admin Acetaminophen 650 mg 11/23/16 00:09 11/23/16 05:57 Tylenol 650mg/20.3ml Solution Ud NG 650 mg Q6 PRN Administration temp above 101 Albuterol/Ipratropium 3 ml 11/12/16 14:00 11/27/16 13:13 Duoneb 3 Mg/0.5 Mg (3 Ml) Ud INH 3 ml RQ6 REKHA Administration Epoetin Sly 10,000 unit 11/21/16 18:30 11/25/16 18:45 Procrit IV 10,000 unit MWF REKHA Administration Hydromorphone HCl 0.5 mg 11/22/16 14:57 11/22/16 15:20 Dilaudid IVP 0.5 mg Q6H PRN Administration Pain, severe (8-10) Norepinephrine Bitartrate 4 mg 254 mls @ 15.24 mls/hr 11/16/16 20:28 18:22 / Sodium Chloride IV 0 mcg/min .[id number] PRN 0 mls/hr TITRATE PER MD ORDER Titration Protocol 4 MCG/MIN Insulin Human Regular 0 unit 11/16/16 12:00 11/27/16 11:54 Novolin R SC 2 unit Q6 REKHA Administration Protocol Levothyroxine Sodium 175 mcg 11/18/16 06:30 11/27/16 06:10 Synthroid PO 175 mcg DAILY@0630 REKHA Administration Pantoprazole Sodium 40 mg 11/05/16 11:15 11/27/16 10:36 Protonix Inj IVP 40 mg DAILY REKHA Administration - Patient Studies Lab Studies: Lab Studies 11/27/16 11/27/16 11/27/16 Range/Units 11:21 06:31 06:31 WBC 19.8 H (4.8-10.8) K/uL RBC 2.51 L (3.80-5.20) Mil/uL Hgb 8.4 L (11.0-16.0) g/dL Hct 24.9 L (34.0-47.0) % MCV 99.1 H (81.0-99.0) fL MCH 33.3 H (27.0-31.0) pg MCHC 33.6 (33.0-37.0) g/dL RDW 21.2 H (11.5-14.5) % Plt Count 77 L (130-400) K/uL MPV 11.7 (7.2-11.7) fL Neut % (Auto) 88.4 H (50.0-75.0) % Lymph % (Auto) 6.0 L (20.0-40.0) % [place] % (Auto) 4.3 (0.0-10.0) % Eos % (Auto) 0.6 (0.0-4.0) % Baso % (Auto) 0.7 (0.0-2.0) % Neut # 17.6 H (1.8-7.0) K/uL Lymph # 1.2 (1.0-4.3) K/uL [place] # 0.8 (0.0-0.8) K/uL Eos # 0.1 (0.0-0.7) K/uL Baso # 0.1 (0.0-0.2) K/uL Neutrophils % (Manual) 87 H (50-75) % Band Neutrophils % 1 (0-2) % Lymphocytes % (Manual) 8 L (20-40) % Monocytes % (Manual) 4 (0-10) % Platelet Estimate Decreased L (NORMAL) Large Platelets Present Polychromasia Slight Hypochromasia (manual) Slight Poikilocytosis (manual Slight Anisocytosis (manual) Moderate Macrocytosis (manual) Slight Target Cells Slight Ovalocytes Slight Puncture Site pCO2 (35-45) mm/Hg pO2 (80-100) mm/Hg HCO3 (21-28) mmol/L ABG pH (7.35-7.45) ABG Total CO2 (22-28) mmol/L ABG O2 Saturation (95-98) % ABG Base Excess (-2.0-3.0) mmol/L ABG Hemoglobin (11.7-17.4) g/dL ABG Carboxyhemoglobin (0.5-1.5) % POC ABG HHb (Measured) (0.0-5.0) % ABG Methemoglobin (0.0-3.0) % [place] Test A-a O2 Difference mm/Hg Respiratory Index Hgb O2 Saturation (95.0-98.0) % Vent Mode Mechanical Rate FiO2 % Tidal Volume PEEP Sodium 136 (132-148) mmol/L Potassium 3.8 (3.6-5.2) mmol/L Chloride 95 L (98-107) mmol/L Carbon Dioxide 24 (22-30) mmol/L Anion Gap 21 H (10-20) BUN 36 H (7-17) mg/dL Creatinine 1.9 H (0.7-1.2) MG/DL Est GFR ( Amer) 31 Est GFR (Non-Af Amer) 26 POC Glucose (mg/dL) 200 H (65-110) mg/dL Random Glucose 160 H (65-105) mg/dL Calcium 9.2 (8.6-10.4) mg/dl Phosphorus 4.1 (2.5-4.5) mg/dL Magnesium 1.7 (1.6-2.3) mg/dL Total Bilirubin 10.8 H (0.2-1.3) mg/dL AST 40 H (14-36) U/L ALT 26 (9-52) U/L Alkaline Phosphatase 185 H D (38-126) U/L Total Protein 6.1 L (6.3-8.3) g/dL Albumin 2.1 L (3.5-5.0) g/dL Globulin 4.0 H (2.2-3.9) gm/dL Albumin/Globulin Ratio 0.5 L (1.0-2.1) 11/27/16 11/27/16 11/26/16 Range/Units 05:31 04:58 23:28 WBC (4.8-10.8) K/uL RBC (3.80-5.20) Mil/uL Hgb (11.0-16.0) g/dL Hct (34.0-47.0) % MCV (81.0-99.0) fL MCH (27.0-31.0) pg MCHC (33.0-37.0) g/dL RDW (11.5-14.5) % Plt Count (130-400) K/uL MPV (7.2-11.7) fL Neut % (Auto) (50.0-75.0) % Lymph % (Auto) (20.0-40.0) % [place] % (Auto) (0.0-10.0) % Eos % (Auto) (0.0-4.0) % Baso % (Auto) (0.0-2.0) % Neut # (1.8-7.0) K/uL Lymph # (1.0-4.3) K/uL [place] # (0.0-0.8) K/uL Eos # (0.0-0.7) K/uL Baso # (0.0-0.2) K/uL Neutrophils % (Manual) (50-75) % Band Neutrophils % (0-2) % Lymphocytes % (Manual) (20-40) % Monocytes % (Manual) (0-10) % Platelet Estimate (NORMAL) Large Platelets Polychromasia Hypochromasia (manual) Poikilocytosis (manual Anisocytosis (manual) Macrocytosis (manual) Target Cells Ovalocytes Puncture Site Rr pCO2 36 (35-45) mm/Hg pO2 98 (80-100) mm/Hg HCO3 25.7 (21-28) mmol/L ABG pH 7.45 (7.35-7.45) ABG Total CO2 26.1 (22-28) mmol/L ABG O2 Saturation 100.5 H (95-98) % ABG Base Excess 1.0 (-2.0-3.0) mmol/L ABG Hemoglobin 8.2 L (11.7-17.4) g/dL ABG Carboxyhemoglobin 2.6 H (0.5-1.5) % POC ABG HHb (Measured) -0.5 L (0.0-5.0) % ABG Methemoglobin 1.3 (0.0-3.0) % [place] Test Pos A-a O2 Difference 285.0 mm/Hg Respiratory Index 2.9 Hgb O2 Saturation 96.5 (95.0-98.0) % Vent Mode Prvc Mechanical Rate 14 FiO2 60.0 % Tidal Volume 350 PEEP 5 Sodium (132-148) mmol/L Potassium (3.6-5.2) mmol/L Chloride (98-107) mmol/L Carbon Dioxide (22-30) mmol/L Anion Gap (10-20) BUN (7-17) mg/dL Creatinine (0.7-1.2) MG/DL Est GFR ( Amer) Est GFR (Non-Af Amer) POC Glucose (mg/dL) 197 H 199 H (65-110) mg/dL Random Glucose (65-105) mg/dL Calcium (8.6-10.4) mg/dl Phosphorus (2.5-4.5) mg/dL Magnesium (1.6-2.3) mg/dL Total Bilirubin (0.2-1.3) mg/dL AST (14-36) U/L ALT (9-52) U/L Alkaline Phosphatase (38-126) U/L Total Protein (6.3-8.3) g/dL Albumin (3.5-5.0) g/dL Globulin (2.2-3.9) gm/dL Albumin/Globulin Ratio (1.0-2.1) 11/26/16 Range/Units 18:12 WBC (4.8-10.8) K/uL RBC (3.80-5.20) Mil/uL Hgb (11.0-16.0) g/dL Hct (34.0-47.0) % MCV (81.0-99.0) fL MCH (27.0-31.0) pg MCHC (33.0-37.0) g/dL RDW (11.5-14.5) % Plt Count (130-400) K/uL MPV (7.2-11.7) fL Neut % (Auto) (50.0-75.0) % Lymph % (Auto) (20.0-40.0) % [place] % (Auto) (0.0-10.0) % Eos % (Auto) (0.0-4.0) % Baso % (Auto) (0.0-2.0) % Neut # (1.8-7.0) K/uL Lymph # (1.0-4.3) K/uL [place] # (0.0-0.8) K/uL Eos # (0.0-0.7) K/uL Baso # (0.0-0.2) K/uL Neutrophils % (Manual) (50-75) % Band Neutrophils % (0-2) % Lymphocytes % (Manual) (20-40) % Monocytes % (Manual) (0-10) % Platelet Estimate (NORMAL) Large Platelets Polychromasia Hypochromasia (manual) Poikilocytosis (manual Anisocytosis (manual) Macrocytosis (manual) Target Cells Ovalocytes Puncture Site pCO2 (35-45) mm/Hg pO2 (80-100) mm/Hg HCO3 (21-28) mmol/L ABG pH (7.35-7.45) ABG Total CO2 (22-28) mmol/L ABG O2 Saturation (95-98) % ABG Base Excess (-2.0-3.0) mmol/L ABG Hemoglobin (11.7-17.4) g/dL ABG Carboxyhemoglobin (0.5-1.5) % POC ABG HHb (Measured) (0.0-5.0) % ABG Methemoglobin (0.0-3.0) % [place] Test A-a O2 Difference mm/Hg Respiratory Index Hgb O2 Saturation (95.0-98.0) % Vent Mode Mechanical Rate FiO2 % Tidal Volume PEEP Sodium (132-148) mmol/L Potassium (3.6-5.2) mmol/L Chloride (98-107) mmol/L Carbon Dioxide (22-30) mmol/L Anion Gap (10-20) BUN (7-17) mg/dL Creatinine (0.7-1.2) MG/DL Est GFR ( Amer) Est GFR (Non-Af Amer) POC Glucose (mg/dL) 211 H (65-110) mg/dL Random Glucose (65-105) mg/dL Calcium (8.6-10.4) mg/dl Phosphorus (2.5-4.5) mg/dL Magnesium (1.6-2.3) mg/dL Total Bilirubin (0.2-1.3) mg/dL AST (14-36) U/L ALT (9-52) U/L Alkaline Phosphatase (38-126) U/L Total Protein (6.3-8.3) g/dL Albumin (3.5-5.0) g/dL Globulin (2.2-3.9) gm/dL Albumin/Globulin Ratio (1.0-2.1) Laboratory Results - last 24 hr 11/26/16 11/26/16 11/27/16 18:12 23:28 04:58 WBC RBC Hgb Hct MCV MCH MCHC RDW Plt Count MPV Neut % (Auto) Lymph % (Auto) [place] % (Auto) Eos % (Auto) Baso % (Auto) Neut # Lymph # [place] # Eos # Baso # Neutrophils % (Manual) Band Neutrophils % Lymphocytes % (Manual) Monocytes % (Manual) Platelet Estimate Large Platelets Polychromasia Hypochromasia (manual) Poikilocytosis (manual Anisocytosis (manual) Macrocytosis (manual) Target Cells Ovalocytes Puncture Site pCO2 pO2 HCO3 ABG pH ABG Total CO2 ABG O2 Saturation ABG Base Excess ABG Hemoglobin ABG Carboxyhemoglobin POC ABG HHb (Measured) ABG Methemoglobin [place] Test A-a O2 Difference Respiratory Index Hgb O2 Saturation Vent Mode Mechanical Rate FiO2 Tidal Volume PEEP Sodium Potassium Chloride Carbon Dioxide Anion Gap BUN Creatinine Est GFR ( Amer) Est GFR (Non-Af Amer) POC Glucose (mg/dL) 211 H 199 H 197 H Random Glucose Calcium Phosphorus Magnesium Total Bilirubin AST ALT Alkaline Phosphatase Total Protein Albumin Globulin Albumin/Globulin Ratio 11/27/16 11/27/16 11/27/16 05:31 06:31 06:31 WBC 19.8 H RBC 2.51 L Hgb 8.4 L Hct 24.9 L MCV 99.1 H MCH 33.3 H MCHC 33.6 RDW 21.2 H Plt Count 77 L MPV 11.7 Neut % (Auto) 88.4 H Lymph % (Auto) 6.0 L [place] % (Auto) 4.3 Eos % (Auto) 0.6 Baso % (Auto) 0.7 Neut # 17.6 H Lymph # 1.2 [place] # 0.8 Eos # 0.1 Baso # 0.1 Neutrophils % (Manual) 87 H Band Neutrophils % 1 Lymphocytes % (Manual) 8 L Monocytes % (Manual) 4 Platelet Estimate Decreased L Large Platelets Present Polychromasia Slight Hypochromasia (manual) Slight Poikilocytosis (manual Slight Anisocytosis (manual) Moderate Macrocytosis (manual) Slight Target Cells Slight Ovalocytes Slight Puncture Site Rr pCO2 36 pO2 98 HCO3 25.7 ABG pH 7.45 ABG Total CO2 26.1 ABG O2 Saturation 100.5 H ABG Base Excess 1.0 ABG Hemoglobin 8.2 L ABG Carboxyhemoglobin 2.6 H POC ABG HHb (Measured) -0.5 L ABG Methemoglobin 1.3 [place] Test Pos A-a O2 Difference 285.0 Respiratory Index 2.9 Hgb O2 Saturation 96.5 Vent Mode Prvc Mechanical Rate 14 FiO2 60.0 Tidal Volume 350 PEEP 5 Sodium 136 Potassium 3.8 Chloride 95 L Carbon Dioxide 24 Anion Gap 21 H BUN 36 H Creatinine 1.9 H Est GFR ( Amer) 31 Est GFR (Non-Af Amer) 26 POC Glucose (mg/dL) Random Glucose 160 H Calcium 9.2 Phosphorus 4.1 Magnesium 1.7 Total Bilirubin 10.8 H AST 40 H ALT 26 Alkaline Phosphatase 185 H D Total Protein 6.1 L Albumin 2.1 L Globulin 4.0 H Albumin/Globulin Ratio 0.5 L 11/27/16 11:21 WBC RBC Hgb Hct MCV MCH MCHC RDW Plt Count MPV Neut % (Auto) Lymph % (Auto) [place] % (Auto) Eos % (Auto) Baso % (Auto) Neut # Lymph # [place] # Eos # Baso # Neutrophils % (Manual) Band Neutrophils % Lymphocytes % (Manual) Monocytes % (Manual) Platelet Estimate Large Platelets Polychromasia Hypochromasia (manual) Poikilocytosis (manual Anisocytosis (manual) Macrocytosis (manual) Target Cells Ovalocytes Puncture Site pCO2 pO2 HCO3 ABG pH ABG Total CO2 ABG O2 Saturation ABG Base Excess ABG Hemoglobin ABG Carboxyhemoglobin POC ABG HHb (Measured) ABG Methemoglobin [place] Test A-a O2 Difference Respiratory Index Hgb O2 Saturation Vent Mode Mechanical Rate FiO2 Tidal Volume PEEP Sodium Potassium Chloride Carbon Dioxide Anion Gap BUN Creatinine Est GFR ( Amer) Est GFR (Non-Af Amer) POC Glucose (mg/dL) 200 H Random Glucose Calcium Phosphorus Magnesium Total Bilirubin AST ALT Alkaline Phosphatase Total Protein Albumin Globulin Albumin/Globulin Ratio Fingerstick Blood Sugar Results: 200 Review of Systems - Review of Systems Systems not reviewed;Unavailable: Altered Mental Status Critical Care Progress Note - Nutrition Nutrition: Nutrition Category Date Time Status NPO Diet [DIET] Diets 11/17/16 Breakfast Active Assessment/Plan (1) Leucocytosis Assessment and plan: 77yo F. PMHx stage renal disease on hemodialysis, acute on chronic systolic CHF (EF of 29%), right ureteral stent (replaced 12/04/15), diabetes mellitus type 2 , right ureteral stent thoracenteses for recurrent pleural effusions ( complicated by hydropneumothorax and hemothorax, 08/12/16), AV fistula (12/10/15 ) (previous bleeding complications, 02/22/16, and occlusion status post thrombectomy and percutaneous transluminal angioplasty with new anastomosis, 09/07), CAD with stent, hypothyroidism with myxedema coma, prolonged hospitalization since July 2016, severe protein calorie malnutrition, recent ischemic colitis with bleeding, gangrenous fingertips. Neuro: Comatose, in persistent vegetative state. Pulm: Chronic respiratory failure, trached on vent. CV: Septic shock, on Levophed, Will try to titrate off. continue Midodrine. Hem: Anemia of chronic disease and critical illness. Renal: End-stage renal disease on hemodialysis. Endo: Diabetes mellitus type 2, hypothyroidism and continue levothyroxine. GI: Nothing by mouth. tube feeds ID: chronically ill, all antibiotics stopped DVT proph - scd's, holding anticoagulation with recent GI bleed. GI proph - Protonix IV dolan for strict I/O's during acute illness Code status - DNR Patient is chronically and critically ill with no hope of recovery. This is been explained in detail, repeatedly to the daughter of the patient, now considering terminal extubation. Critical Care Time spent 35 minutes Multi-disciplinary rounds were performed with house staff, nursing, speech therapy, respiratory therapy, pharmacy and nutrition with integrated input from the primary team/attending and other consulting services. The documented time is cumulative and includes review of patient data/exams/labs/chart review and examination of the patient on rounds and throughout the day; time is exclusive of any procedures or teaching time. Current Visit: Yes Status: Acute
[2016-11-28] MEDS: (Novolin R) Insulin Human Regular 100 units/ml vial SC SCH ×5 (00:28→23:42)
[2016-11-28] MEDS: Albuterol-Ipratrop 3 mg / 0.5 (3 ml) UD INH SCH ×4 (01:19→19:38)
[2016-11-28] MEDS: Levothyroxine 175 MCG TAB PO SCH (06:12)
[2016-11-28] MEDS ORDERED: Albumin Human 25% (12.5 gm/50 ml) IV ONE ×2 (09:46→10:48)
--- NOTE | 2016-11-28 10:25 | CP.PCM.PN ---
Subjective - Date & Time of Evaluation Date of Evaluation: 11/28/16 Time of Evaluation: 10:23 - Subjective Subjective: On dialysis now; has been very hypotensive and unable to UF much Unresponsive; DNR status noted Considering termoinal extubation as per ICU team Objective - Vital Signs/Intake and Output Vital Signs (last 24 hours): Temp Pulse Resp BP Pulse Ox 98.2 F 92 H 22 93/46 L 100 11/28/16 09:25 11/28/16 08:51 11/28/16 09:25 11/28/16 09:25 11/28/16 08:51 Intake and Output: 11/28/16 11/28/16 06:59 18:59 Intake Total 420 140 Balance 420 140 - Medications Medications: Current Medications Acetaminophen (Tylenol 650mg/20.3ml Solution Ud) 650 mg NG Q6 PRN PRN Reason: temp above 101 Last Admin: 11/23/16 05:57 Dose: 650 mg Albuterol/Ipratropium (Duoneb 3 Mg/0.5 Mg (3 Ml) Ud) 3 ml INH RQ6 [facility] Last Admin: 11/28/16 07:29 Dose: 3 ml Epoetin Sly (Procrit) 10,000 unit IV MWF [facility] Last Admin: 11/25/16 18:45 Dose: 10,000 unit Hydromorphone HCl (Dilaudid) 0.5 mg IVP Q6H PRN PRN Reason: Pain, severe (8-10) Last Admin: 11/22/16 15:20 Dose: 0.5 mg Norepinephrine Bitartrate 4 mg (/ Sodium Chloride) 254 mls @ 15.24 mls/hr IV .[id number] PRN; Protocol; 4 MCG/MIN PRN Reason: TITRATE PER MD ORDER Last Titration: 11/26/16 18:22 Dose: 0 mcg/min, 0 mls/hr Insulin Human Regular (Novolin R) 0 unit SC Q6 REKHA PRN Reason: Protocol Last Admin: 11/28/16 06:12 Dose: Not Given Levothyroxine Sodium (Synthroid) 175 mcg PO DAILY@0630 [facility] Last Admin: 11/28/16 06:12 Dose: 175 mcg Pantoprazole Sodium (Protonix Inj) 40 mg IVP DAILY [facility] Last Admin: 11/27/16 10:36 Dose: 40 mg - Labs Labs: 11/27/16 06:31 11/27/16 06:31 PT 19.5 SECONDS (9.7-12.2) H 10/28/16 08:07 INR 1.7 10/28/16 08:07 APTT 49 SECONDS (21-34) H 10/25/16 16:33 - Constitutional Appears: In Acute Distress, Chronically Ill - Head Exam Head Exam: ATRAUMATIC, NORMAL INSPECTION - Neck Exam Neck Exam: Normal Inspection. absent: Tenderness - Respiratory Exam Respiratory Exam: Rhonchi, Respiratory Distress - Cardiovascular Exam Cardiovascular Exam: Tachycardia, +S1 - GI/Abdominal Exam GI & Abdominal Exam: Soft. absent: Tenderness - Neurological Exam Neurological Exam: Altered, Motor Sensory Deficit - Skin Skin Exam: Dry, Warm Assessment and Plan (1) Lower GI bleed Status: Acute (2) Diabetic nephropathy with proteinuria Status: Acute (3) CHF (congestive heart failure) Status: Chronic (4) ESRD (end stage renal disease) on dialysis Status: Chronic - Assessment and Plan (Free Text) Plan: attempt UF with dialysis supportive care considering terminal extubation
[2016-11-28] MEDS: Epoetin Alfa 10,000 unit/ml Dialysis IV SCH (11:03)
--- NOTE | 2016-11-28 16:07 | CP.CCUPN ---
CCU Subjective - Physician Review Subjective (Free Text): Patient was seen and examined at bedside in the morning. Patient is non- verbal. 11/28/16 16:03 CCU Objective - Vital Signs / Intake & Output Vital Signs (Last 4 hours): Vital Signs Pulse Resp BP Pulse Ox 11/28/16 15:12 92 H 13 85/39 L 100 11/28/16 15:00 92 H 18 100 11/28/16 14:13 87 14 83/35 L 100 11/28/16 14:00 85 18 100 11/28/16 13:12 88 17 81/37 L 100 11/28/16 13:00 86 19 100 Intake and Output (Last 8hrs): Intake & Output 11/28/16 11/28/16 11/28/16 06:59 14:59 22:59 Intake Total 280 310 35 Balance 280 310 35 Intake: Tube Feeding 280 280 35 Other 30 Other: # Voids Urine, Voided 1 # Bowel Movements 1 1 1 - Physical Exam Head: Positive for: Atraumatic, Normocephalic Extroacular Muscles: Negative for: EOMI Conjunctiva: Positive for: Icteric Mouth: Positive for: Dry. Negative for: Moist Mucous Membranes Nose (Internal): Positive for: Other (NGT in place) Neck: Positive for: Other (trach in place) Respiratory/Chest: Positive for: Wheezes, Decreased Breath Sounds, Rhonchi. Negative for: Clear to Auscultation, Respiratory Distress, Accessory Muscle Use Cardiovascular: Positive for: Normal S1, S2. Negative for: Murmurs, Tachycardic , Bradycardic Abdomen: Positive for: Other (+bowel sounds). Negative for: Distention Upper Extremity: Positive for: Cyanosis, Other (cold fingers, ischemic 2-4 digits on left hand ). Negative for: NORMAL PULSES, Neurovascularly Intact Lower Extremity: Positive for: Edema. Negative for: NORMAL PULSES Neurological: Negative for: GCS=15, Speech Normal Skin: Positive for: Cold (bilateral hands), Other (gangrenous fingertips). Negative for: Warm Psychiatric: Positive for: Other (non-verbal ). Negative for: Alert, Oriented x 3, Normal Insight, Normal Concentration - Medications Active Medications: Active Medications Generic Name Dose Route Start Last Admin Trade Name Freq PRN Reason Stop Dose Admin Acetaminophen 650 mg 11/23/16 00:09 11/23/16 05:57 Tylenol 650mg/20.3ml Solution Ud NG 650 mg Q6 PRN Administration temp above 101 Albuterol/Ipratropium 3 ml 11/12/16 14:00 11/28/16 14:03 Duoneb 3 Mg/0.5 Mg (3 Ml) Ud INH 3 ml RQ6 REKHA Administration Epoetin Sly 10,000 unit 11/21/16 18:30 11/28/16 11:03 Procrit IV 10,000 unit MWF [facility] Administration Hydromorphone HCl 0.5 mg 11/22/16 14:57 11/22/16 15:20 Dilaudid IVP 0.5 mg Q6H PRN Administration Pain, severe (8-10) Norepinephrine Bitartrate 4 mg 254 mls @ 15.24 mls/hr 11/16/16 20:28 18:22 / Sodium Chloride IV 0 mcg/min .[id number] PRN 0 mls/hr TITRATE PER MD ORDER Titration Protocol 4 MCG/MIN Insulin Human Regular 0 unit 11/16/16 12:00 11/28/16 12:34 Novolin R SC Not Given Q6 [facility] Protocol Levothyroxine Sodium 175 mcg 11/18/16 06:30 11/28/16 06:12 Synthroid PO 175 mcg DAILY@0630 REKHA Administration Pantoprazole Sodium 40 mg 11/05/16 11:15 11/28/16 12:00 Protonix Inj IVP 40 mg DAILY REKHA Administration - Patient Studies Lab Studies: Lab Studies 11/28/16 11/28/16 11/28/16 Range/Units 12:08 06:07 00:19 POC Glucose (mg/dL) 177 H 199 H 206 H (65-110) mg/dL 11/27/16 Range/Units 17:35 POC Glucose (mg/dL) 206 H (65-110) mg/dL Laboratory Results - last 24 hr 11/27/16 11/28/16 11/28/16 17:35 00:19 06:07 POC Glucose (mg/dL) 206 H 206 H 199 H 11/28/16 12:08 POC Glucose (mg/dL) 177 H Fingerstick Blood Sugar Results: 206 Review of Systems - Review of Systems Systems not reviewed;Unavailable: Altered Mental Status Critical Care Progress Note - Vent Settings MODE:: CPAP PEEP:: 5 PRESSURE SUPPORT:: 18 - Nutrition Nutrition: Nutrition Category Date Time Status NPO Diet [DIET] Diets 11/17/16 Breakfast Active Assessment/Plan - Assessment and Plan (Free Text) Assessment: 76 female patient admitted for GI bleed; s/p flexible sigmoidoscopy and multiple transfusions. Patient was transferred from the medical floor to the ICU because patient was noted to have a hypotensive state, bradycardia and mucus secretions. Patient is now vented on trach. Patient's antiobiotics were stopped. Today, patient was put on pressure support. Neuro: Comatose, in persistent vegetative state. Pulm: Chronic respiratory failure, trached on vent. - CPAP 18, PEEP 5 CV: Septic shock, on Levophed, Will try to titrate off. Hem: Anemia of chronic disease and critical illness. Renal: End-stage renal disease on hemodialysis. - Dialyzed today Endo: Diabetes mellitus type 2, hypothyroidism and continue levothyroxine. GI: Nothing by mouth. tube feeds ID: chronically ill, all antibiotics stopped DVT proph - scd's, holding anticoagulation with recent GI bleed. GI proph - Protonix IV dolan for strict I/O's during acute illness Code status - DNR
[2016-11-29] MEDS: Albuterol-Ipratrop 3 mg / 0.5 (3 ml) UD INH SCH ×4 (01:50→19:35)
[2016-11-29] MEDS: Levothyroxine 175 MCG TAB PO SCH (05:32)
[2016-11-29] MEDS: (Novolin R) Insulin Human Regular 100 units/ml vial SC SCH ×3 (05:40→18:23)
[2016-11-29 13:08] LABS: HEMATOCRIT 21.4 % (34.0-47.0); MEAN CELL VOLUME 99.5 fL (81.0-99.0); MEAN CORPUSCULAR HEMOGLOBIN 33.1 pg (27.0-31.0); MEAN CORPUSCULAR HGB CONC 33.3 g/dL (33.0-37.0); MEAN PLATELET VOLUME 11.9 fL (7.2-11.7); RED CELL DISTRIBUTION WIDTH 27.1 % (11.5-14.5); WHITE BLOOD COUNT 12.4 K/uL (4.8-10.8)
--- NOTE | 2016-11-29 14:04 | CP.PCM.PN ---
Subjective - Date & Time of Evaluation Date of Evaluation: 11/29/16 Time of Evaluation: 14:03 - Subjective Subjective: no change clinically remains poorly responsive hypotensive s/p hd yesterday Objective - Vital Signs/Intake and Output Vital Signs (last 24 hours): Temp Pulse Resp BP Pulse Ox 99.5 F 92 H 19 88/40 L 100 11/29/16 09:00 11/29/16 13:00 11/29/16 13:00 11/29/16 12:12 11/29/16 13:00 Intake and Output: 11/29/16 11/29/16 06:59 18:59 Intake Total 505 240 Balance 505 240 - Medications Medications: Current Medications Acetaminophen (Tylenol 650mg/20.3ml Solution Ud) 650 mg NG Q6 PRN PRN Reason: temp above 101 Last Admin: 11/23/16 05:57 Dose: 650 mg Albuterol/Ipratropium (Duoneb 3 Mg/0.5 Mg (3 Ml) Ud) 3 ml INH RQ6 [facility] Last Admin: 11/29/16 13:37 Dose: 3 ml Epoetin Sly (Procrit) 10,000 unit IV MWF [facility] Last Admin: 11/28/16 11:03 Dose: 10,000 unit Hydromorphone HCl (Dilaudid) 0.5 mg IVP Q6H PRN PRN Reason: Pain, severe (8-10) Last Admin: 11/22/16 15:20 Dose: 0.5 mg Norepinephrine Bitartrate 4 mg (/ Sodium Chloride) 254 mls @ 15.24 mls/hr IV .[id number] PRN; Protocol; 4 MCG/MIN PRN Reason: TITRATE PER MD ORDER Last Titration: 11/26/16 18:22 Dose: 0 mcg/min, 0 mls/hr Insulin Human Regular (Novolin R) 0 unit SC Q6 [facility] PRN Reason: Protocol Last Admin: 11/29/16 12:57 Dose: Not Given Levothyroxine Sodium (Synthroid) 175 mcg PO DAILY@0630 [facility] Last Admin: 11/29/16 05:32 Dose: 175 mcg Pantoprazole Sodium (Protonix Inj) 40 mg IVP DAILY [facility] Last Admin: 11/29/16 09:22 Dose: 40 mg - Labs Labs: 11/29/16 12:52 11/27/16 06:31 PT 19.5 SECONDS (9.7-12.2) H 10/28/16 08:07 INR 1.7 10/28/16 08:07 APTT 49 SECONDS (21-34) H 10/25/16 16:33 - Constitutional Appears: No Acute Distress, Cachectic, Chronically Ill (comatose) - Head Exam Head Exam: NORMAL INSPECTION - Eye Exam Eye Exam: Normal appearance - ENT Exam ENT Exam: Mucous Membranes Dry - Neck Exam Neck Exam: Normal Inspection (trach) - Respiratory Exam Respiratory Exam: Decreased Breath Sounds, NORMAL BREATHING PATTERN - Cardiovascular Exam Cardiovascular Exam: Tachycardia, REGULAR RHYTHM - GI/Abdominal Exam GI & Abdominal Exam: Soft, Diminished Bowel Sounds - Extremities Exam Extremities Exam: Normal Inspection Assessment and Plan (1) Lower GI bleed Status: Acute (2) Diabetes mellitus Status: Acute (3) CHF (congestive heart failure) Status: Chronic (4) ESRD (end stage renal disease) on dialysis Status: Chronic - Assessment and Plan (Free Text) Assessment: palliative care if family agreeable hd tomorrow
--- NOTE | 2016-11-29 18:22 | CP.CCUPN ---
<Monica Cano - Last Filed: 11/29/16 18:30> CCU Subjective - Physician Review Subjective (Free Text): Patient was seen and examined at bedside in the morning. Patient is non- verbal. Patient has poor prognosis. 11/29/16 18:19 CCU Objective - Vital Signs / Intake & Output Vital Signs (Last 4 hours): Vital Signs Temp Pulse Resp BP Pulse Ox 11/29/16 16:38 89 16 80/39 L 100 11/29/16 16:34 87 16 74/39 L 11/29/16 16:20 99 F 89 18 91/39 L 11/29/16 16:19 90 15 91/39 L 100 11/29/16 16:04 89 16 80/39 L 11/29/16 16:00 91 H 17 100 11/29/16 15:50 98.8 F 88 20 86/38 L 11/29/16 15:49 90 17 86/38 L 100 11/29/16 15:35 98.8 F 90 17 82/38 L 11/29/16 15:34 91 H 17 82/38 L 100 11/29/16 15:20 99 F 91 H 16 98/27 L 11/29/16 15:10 90 17 98/27 L 100 11/29/16 15:08 89 13 79/36 L 100 11/29/16 15:02 89 17 78/35 L 100 11/29/16 15:00 89 17 100 Intake and Output (Last 8hrs): Intake & Output 11/29/16 11/29/16 11/29/16 06:59 14:59 22:59 Intake Total 365 275 70 Balance 365 275 70 Weight 120 lb 9.486 oz Intake: Tube Feeding 315 245 70 Blood Product 0 Red Blood Cells Cpd As1 0 Lr Unit [id number] Other 50 30 Other: # Bowel Movements 1 1 1 - Physical Exam Head: Positive for: Atraumatic, Normocephalic Mouth: Positive for: Dry. Negative for: Moist Mucous Membranes Nose (Internal): Positive for: Other (NGT in place) Neck: Positive for: Other (trach in place) Respiratory/Chest: Positive for: Wheezes, Decreased Breath Sounds, Rhonchi. Negative for: Clear to Auscultation, Respiratory Distress, Accessory Muscle Use Cardiovascular: Positive for: Normal S1, S2. Negative for: Murmurs, Tachycardic , Bradycardic Abdomen: Negative for: Distention Upper Extremity: Positive for: Cyanosis, Other (cold fingers, ischemic 2-4 digits on left hand ). Negative for: NORMAL PULSES, Neurovascularly Intact Lower Extremity: Positive for: Edema. Negative for: NORMAL PULSES Neurological: Negative for: GCS=15, Speech Normal Skin: Positive for: Cold (bilateral hands), Other (gangrenous fingertips). Negative for: Warm Psychiatric: Positive for: Other (non-verbal ). Negative for: Alert, Oriented x 3, Normal Insight, Normal Concentration - Medications Active Medications: Active Medications Generic Name Dose Route Start Last Admin Trade Name Freq PRN Reason Stop Dose Admin Acetaminophen 650 mg 11/23/16 00:09 11/23/16 05:57 Tylenol 650mg/20.3ml Solution Ud NG 650 mg Q6 PRN Administration temp above 101 Albuterol/Ipratropium 3 ml 11/12/16 14:00 11/29/16 13:37 Duoneb 3 Mg/0.5 Mg (3 Ml) Ud INH 3 ml RQ6 [facility] Administration Epoetin Sly 10,000 unit 11/21/16 18:30 11/28/16 11:03 Procrit IV 10,000 unit MWF [facility] Administration Hydromorphone HCl 0.5 mg 11/22/16 14:57 11/22/16 15:20 Dilaudid IVP 0.5 mg Q6H PRN Administration Pain, severe (8-10) Norepinephrine Bitartrate 4 mg 254 mls @ 15.24 mls/hr 11/16/16 20:28 18:22 / Sodium Chloride IV 0 mcg/min .[id number] PRN 0 mls/hr TITRATE PER MD ORDER Titration Protocol 4 MCG/MIN Insulin Human Regular 0 unit 11/16/16 12:00 11/29/16 12:57 Novolin R SC Not Given Q6 [facility] Protocol Levothyroxine Sodium 175 mcg 11/18/16 06:30 11/29/16 05:32 Synthroid PO 175 mcg DAILY@0630 [facility] Administration Pantoprazole Sodium 40 mg 11/05/16 11:15 11/29/16 09:22 Protonix Inj IVP 40 mg DAILY [facility] Administration - Patient Studies Lab Studies: Lab Studies 11/29/16 11/29/16 11/29/16 Range/Units 17:43 14:01 12:52 WBC 12.4 H (4.8-10.8) K/uL RBC 2.16 L (3.80-5.20) Mil/uL Hgb 7.1 L (11.0-16.0) g/dL Hct 21.4 L (34.0-47.0) % MCV 99.5 H (81.0-99.0) fL MCH 33.1 H (27.0-31.0) pg MCHC 33.3 (33.0-37.0) g/dL RDW 27.1 H (11.5-14.5) % Plt Count 104 L D (130-400) K/uL MPV 11.9 H (7.2-11.7) fL POC Glucose (mg/dL) 231 H (65-110) mg/dL Blood Type B POSITIVE Antibody Screen Negative 11/29/16 11/29/16 11/28/16 Range/Units 11:36 05:33 23:38 WBC (4.8-10.8) K/uL RBC (3.80-5.20) Mil/uL Hgb (11.0-16.0) g/dL Hct (34.0-47.0) % MCV (81.0-99.0) fL MCH (27.0-31.0) pg MCHC (33.0-37.0) g/dL RDW (11.5-14.5) % Plt Count (130-400) K/uL MPV (7.2-11.7) fL POC Glucose (mg/dL) 219 H 160 H 194 H (65-110) mg/dL Blood Type Antibody Screen Laboratory Results - last 24 hr 11/28/16 11/29/16 11/29/16 23:38 05:33 11:36 WBC RBC Hgb Hct MCV MCH MCHC RDW Plt Count MPV POC Glucose (mg/dL) 194 H 160 H 219 H Blood Type Antibody Screen 11/29/16 11/29/16 11/29/16 12:52 14:01 17:43 WBC 12.4 H RBC 2.16 L Hgb 7.1 L Hct 21.4 L MCV 99.5 H MCH 33.1 H MCHC 33.3 RDW 27.1 H Plt Count 104 L D MPV 11.9 H POC Glucose (mg/dL) 231 H Blood Type B POSITIVE Antibody Screen Negative Fingerstick Blood Sugar Results: 219 Review of Systems - Review of Systems Systems not reviewed;Unavailable: Altered Mental Status Critical Care Progress Note - Vent Settings MODE:: PRVC TIDAL VOLUME:: 350 RESP RATE:: 14 FIO2:: 60 PEEP:: 5 - Nutrition Nutrition: Nutrition Category Date Time Status NPO Diet [DIET] Diets 11/17/16 Breakfast Active Assessment/Plan - Assessment and Plan (Free Text) Assessment: 76 female patient admitted for GI bleed; s/p flexible sigmoidoscopy and multiple transfusions. Patient was transferred from the medical floor to the ICU because patient was noted to have a hypotensive state, bradycardia and mucus secretions. Patient is now vented on trach. Patient's antiobiotics were stopped. Patient is on pressure support. Patients hgb decreased to 7.1, received 1 unit PRBC on 11/29/16. Neuro: Comatose, in persistent vegetative state. Pulm: Chronic respiratory failure, trached on vent. CV: Septic shock, on Levophed, Will try to titrate off. Hem: Anemia of chronic disease and critical illness. - Hgb 7.1--> transfused 1 unit; monitor repeat CBC Renal: End-stage renal disease on hemodialysis. Endo: Diabetes mellitus type 2, hypothyroidism and continue levothyroxine. GI: Nothing by mouth. tube feeds ID: chronically ill, all antibiotics stopped DVT proph - scd's, holding anticoagulation with recent GI bleed. GI proph - Protonix IV dolan for strict I/O's during acute illness Code status - DNR <Jonatan Scales S - Last Filed: 11/29/16 18:43> CCU Objective - Vital Signs / Intake & Output Vital Signs (Last 4 hours): Vital Signs Temp Pulse Resp BP Pulse Ox 11/29/16 16:38 89 16 80/39 L 100 11/29/16 16:34 87 16 74/39 L 11/29/16 16:20 99 F 89 18 91/39 L 11/29/16 16:19 90 15 91/39 L 100 11/29/16 16:04 89 16 80/39 L 11/29/16 16:00 91 H 17 100 11/29/16 15:50 98.8 F 88 20 86/38 L 11/29/16 15:49 90 17 86/38 L 100 11/29/16 15:35 98.8 F 90 17 82/38 L 11/29/16 15:34 91 H 17 82/38 L 100 11/29/16 15:20 99 F 91 H 16 98/27 L 11/29/16 15:10 90 17 98/27 L 100 11/29/16 15:08 89 13 79/36 L 100 11/29/16 15:02 89 17 78/35 L 100 11/29/16 15:00 89 17 100 Intake and Output (Last 8hrs): Intake & Output 11/29/16 11/29/16 11/29/16 06:59 14:59 22:59 Intake Total 365 275 70 Balance 365 275 70 Weight 120 lb 9.486 oz Intake: Tube Feeding 315 245 70 Blood Product 0 Red Blood Cells Cpd As1 0 Lr Unit [id number] Other 50 30 Other: # Bowel Movements 1 1 1 - Medications Active Medications: Active Medications Generic Name Dose Route Start Last Admin Trade Name Freq PRN Reason Stop Dose Admin Acetaminophen 650 mg 11/23/16 00:09 11/23/16 05:57 Tylenol 650mg/20.3ml Solution Ud NG 650 mg Q6 PRN Administration temp above 101 Albuterol/Ipratropium 3 ml 11/12/16 14:00 11/29/16 13:37 Duoneb 3 Mg/0.5 Mg (3 Ml) Ud INH 3 ml RQ6 [facility] Administration Epoetin Sly 10,000 unit 11/21/16 18:30 11/28/16 11:03 Procrit IV 10,000 unit MWF [facility] Administration Hydromorphone HCl 0.5 mg 11/22/16 14:57 11/22/16 15:20 Dilaudid IVP 0.5 mg Q6H PRN Administration Pain, severe (8-10) Norepinephrine Bitartrate 4 mg 254 mls @ 15.24 mls/hr 11/16/16 20:28 18:22 / Sodium Chloride IV 0 mcg/min .[id number] PRN 0 mls/hr TITRATE PER MD ORDER Titration Protocol 4 MCG/MIN Insulin Human Regular 0 unit 11/16/16 12:00 11/29/16 18:23 Novolin R SC Not Given Q6 [facility] Protocol Levothyroxine Sodium 175 mcg 11/18/16 06:30 11/29/16 05:32 Synthroid PO 175 mcg DAILY@0630 [facility] Administration Pantoprazole Sodium 40 mg 11/05/16 11:15 11/29/16 09:22 Protonix Inj IVP 40 mg DAILY [facility] Administration - Patient Studies Lab Studies: Lab Studies 11/29/16 11/29/16 11/29/16 Range/Units 17:43 14:01 12:52 WBC 12.4 H (4.8-10.8) K/uL RBC 2.16 L (3.80-5.20) Mil/uL Hgb 7.1 L (11.0-16.0) g/dL Hct 21.4 L (34.0-47.0) % MCV 99.5 H (81.0-99.0) fL MCH 33.1 H (27.0-31.0) pg MCHC 33.3 (33.0-37.0) g/dL RDW 27.1 H (11.5-14.5) % Plt Count 104 L D (130-400) K/uL MPV 11.9 H (7.2-11.7) fL POC Glucose (mg/dL) 231 H (65-110) mg/dL Blood Type B POSITIVE Antibody Screen Negative 11/29/16 11/29/16 11/28/16 Range/Units 11:36 05:33 23:38 WBC (4.8-10.8) K/uL RBC (3.80-5.20) Mil/uL Hgb (11.0-16.0) g/dL Hct (34.0-47.0) % MCV (81.0-99.0) fL MCH (27.0-31.0) pg MCHC (33.0-37.0) g/dL RDW (11.5-14.5) % Plt Count (130-400) K/uL MPV (7.2-11.7) fL POC Glucose (mg/dL) 219 H 160 H 194 H (65-110) mg/dL Blood Type Antibody Screen Laboratory Results - last 24 hr 11/28/16 11/29/16 11/29/16 23:38 05:33 11:36 WBC RBC Hgb Hct MCV MCH MCHC RDW Plt Count MPV POC Glucose (mg/dL) 194 H 160 H 219 H Blood Type Antibody Screen 11/29/16 11/29/16 11/29/16 12:52 14:01 17:43 WBC 12.4 H RBC 2.16 L Hgb 7.1 L Hct 21.4 L MCV 99.5 H MCH 33.1 H MCHC 33.3 RDW 27.1 H Plt Count 104 L D MPV 11.9 H POC Glucose (mg/dL) 231 H Blood Type B POSITIVE Antibody Screen Negative Critical Care Progress Note - Nutrition Nutrition: Nutrition Category Date Time Status NPO Diet [DIET] Diets 11/17/16 Breakfast Active Assessment/Plan (1) Respiratory failure Current Visit: Yes Status: Acute Comment: Continue ventilatory support and reduce FiO2 as tolerated Transfuse platelets Continue feeding Monitor platelet count and H&H Prognosis poor (2) Lower GI bleed Current Visit: Yes Status: Acute (3) ESRD (end stage renal disease) on dialysis Current Visit: No Status: Chronic Attending/Attestation - Attestation I have personally seen and examined this patient.: Yes I have fully participated in the care of the patient.: Yes I have reviewed all pertinent clinical information: Yes Notes (Text): 11/29/16 18:42 Patient seen and examined in the intensive care unit. Case discussed with house staff in the morning rounds. Remains on ventilatory support Patient is off vasopressors Transfuse 1 unit packed RBCs for anemia Prognosis poor
[2016-11-29 20:37] LABS: BASO # 0.2 K/uL (0.0-0.2); BASO % 1.1 % (0.0-2.0); EOS # 0.1 K/uL (0.0-0.7); EOS % 0.9 % (0.0-4.0); HEMATOCRIT 24.5 % (34.0-47.0); LYMPH # 1.6 K/uL (1.0-4.3); LYMPH % 10.8 % (20.0-40.0); MEAN CORPUSCULAR HEMOGLOBIN 33.4 pg (27.0-31.0); MEAN CORPUSCULAR HGB CONC 34.4 g/dL (33.0-37.0); MEAN PLATELET VOLUME 11.5 fL (7.2-11.7); MONO # 0.7 K/uL (0.0-0.8); RED CELL DISTRIBUTION WIDTH 16.3 % (11.5-14.5); WHITE BLOOD COUNT 14.5 K/uL (4.8-10.8)
[2016-11-29 20:40] LABS: MEAN CELL VOLUME 96.9 fL (81.0-99.0)
--- NOTE | 2016-11-29 23:31 | CP.PCM.PN ---
Subjective - Date & Time of Evaluation Date of Evaluation: 11/29/16 Time of Evaluation: 23:31 - Subjective Subjective: Had an episode of rectal bleeding. Received 1 unit of blood transfusion. Disorder dialysis. Output is less at this time to telemetry Multiple ecchymosis, bedsores noted. Poor prognosis. Spoke to the family regarding the terminal extubation. Family not giving any information about the terminal extubation yet. Hospice also advised Objective - Vital Signs/Intake and Output Vital Signs (last 24 hours): Temp Pulse Resp BP Pulse Ox 98 F 87 21 85/22 L 100 11/29/16 20:00 11/29/16 23:01 11/29/16 23:01 11/29/16 23:01 11/29/16 23:01 Intake and Output: 11/29/16 11/30/16 18:59 06:59 Intake Total 820 175 Balance 820 175 - Medications Medications: Current Medications Acetaminophen (Tylenol 650mg/20.3ml Solution Ud) 650 mg NG Q6 PRN PRN Reason: temp above 101 Last Admin: 11/23/16 05:57 Dose: 650 mg Albuterol/Ipratropium (Duoneb 3 Mg/0.5 Mg (3 Ml) Ud) 3 ml INH RQ6 [facility] Last Admin: 11/29/16 19:35 Dose: 3 ml Epoetin Sly (Procrit) 10,000 unit IV MWF [facility] Last Admin: 11/28/16 11:03 Dose: 10,000 unit Hydromorphone HCl (Dilaudid) 0.5 mg IVP Q6H PRN PRN Reason: Pain, severe (8-10) Last Admin: 11/22/16 15:20 Dose: 0.5 mg Norepinephrine Bitartrate 4 mg (/ Sodium Chloride) 254 mls @ 15.24 mls/hr IV .[id number] PRN; Protocol; 4 MCG/MIN PRN Reason: TITRATE PER MD ORDER Last Titration: 11/26/16 18:22 Dose: 0 mcg/min, 0 mls/hr Insulin Human Regular (Novolin R) 0 unit SC Q12 [facility] PRN Reason: Protocol Lactobacillus Acidophilus (Bacid Acidophilus) 1 cap PO BID [facility] Levothyroxine Sodium (Synthroid) 175 mcg PO DAILY@0630 [facility] Last Admin: 11/29/16 05:32 Dose: 175 mcg Pantoprazole Sodium (Protonix Inj) 40 mg IVP DAILY [facility] Last Admin: 11/29/16 09:22 Dose: 40 mg - Labs Labs: 11/29/16 20:30 11/27/16 06:31 PT 19.5 SECONDS (9.7-12.2) H 10/28/16 08:07 INR 1.7 10/28/16 08:07 APTT 49 SECONDS (21-34) H 10/25/16 16:33
[2016-11-30] MEDS: Lactobacillus Acidophilus 500 MU Cap PO SCH ×3 (00:53→18:19)
[2016-11-30] MEDS: Albuterol-Ipratrop 3 mg / 0.5 (3 ml) UD INH SCH ×4 (02:06→19:43)
[2016-11-30] MEDS: Levothyroxine 175 MCG TAB PO SCH (06:41)
[2016-11-30 09:52] LABS: BASO # 0.1 K/uL (0.0-0.2); BASO % 0.6 % (0.0-2.0); EOS # 0.4 K/uL (0.0-0.7); EOS % 2.8 % (0.0-4.0); HEMATOCRIT 23.7 % (34.0-47.0); LYMPH % 7.4 % (20.0-40.0); MEAN CELL VOLUME 97.5 fL (81.0-99.0); MEAN CORPUSCULAR HEMOGLOBIN 32.7 pg (27.0-31.0); MEAN CORPUSCULAR HGB CONC 33.6 g/dL (33.0-37.0); MEAN PLATELET VOLUME 12.1 fL (7.2-11.7); MONO # 0.8 K/uL (0.0-0.8); MONO % 5.8 % (0.0-10.0); NRBC % 0.1 % (0.0-2.0); PLATELET COUNT 110 K/uL (130-400); WHITE BLOOD COUNT 14.2 K/uL (4.8-10.8)
[2016-11-30] MEDS ORDERED: Albumin Human 25% (12.5 gm/50 ml) IV ONE ×2 (10:00→10:45)
[2016-11-30 10:01] LABS: POTASSIUM 4.1 mmol/L (3.6-5.2)
[2016-11-30 10:03] LABS: ALB/GLOB RATIO 0.5 (1.0-2.1); BILIRUBIN,TOTAL 9.5 mg/dL (0.2-1.3); TOTAL PROTEIN 6.1 g/dL (6.3-8.3)
[2016-11-30 10:04] LABS: CALCIUM 7.9 mg/dl (8.6-10.4); MAGNESIUM 1.7 mg/dL (1.6-2.3)
[2016-11-30] MEDS: Epoetin Alfa 10,000 unit/ml Dialysis IV SCH (10:05)
[2016-11-30 10:18] LABS: BASOPHIL 1 % (0-2); EOSINOPHIL 1 % (0-4); NEUTROPHIL 74 % (50-75); REACTIVE LYMPHOCYTES 1 % (0-0); TOTAL CELLS COUNTED 100
[2016-11-30] MEDS: (Novolin R) Insulin Human Regular 100 units/ml vial SC SCH ×2 (10:20→22:30)
--- NOTE | 2016-11-30 12:25 | CP.PCM.PN ---
Subjective - Date & Time of Evaluation Date of Evaluation: 11/30/16 Time of Evaluation: 12:22 - Subjective Subjective: On dialysis now- minimal UF due to hypotension Remains poorly responsive, on vent s/p blood transfusion 11/29 on IV levo had bloody BM again 11/29 doing poorly Objective - Vital Signs/Intake and Output Vital Signs (last 24 hours): Temp Pulse Resp BP Pulse Ox 97.7 F 79 24 117/28 L 100 11/30/16 09:35 11/30/16 11:19 11/30/16 11:19 11/30/16 12:05 11/30/16 11:19 Intake and Output: 11/30/16 11/30/16 06:59 18:59 Intake Total 420 55 Output Total 1 Balance 419 55 - Medications Medications: Current Medications Acetaminophen (Tylenol 650mg/20.3ml Solution Ud) 650 mg NG Q6 PRN PRN Reason: temp above 101 Last Admin: 11/23/16 05:57 Dose: 650 mg Albuterol/Ipratropium (Duoneb 3 Mg/0.5 Mg (3 Ml) Ud) 3 ml INH RQ6 [facility] Last Admin: 11/30/16 07:34 Dose: 3 ml Epoetin Sly (Procrit) 10,000 unit IV MWF [facility] Last Admin: 11/30/16 10:05 Dose: 10,000 unit Hydromorphone HCl (Dilaudid) 0.5 mg IVP Q6H PRN PRN Reason: Pain, severe (8-10) Last Admin: 11/22/16 15:20 Dose: 0.5 mg Norepinephrine Bitartrate 4 mg (/ Sodium Chloride) 254 mls @ 15.24 mls/hr IV .[id number] PRN; Protocol; 4 MCG/MIN PRN Reason: TITRATE PER MD ORDER Last Admin: 11/30/16 11:19 Dose: 4 mcg/min, 15.24 mls/hr Insulin Human Regular (Novolin R) 0 unit SC Q12 [facility] PRN Reason: Protocol Last Admin: 11/30/16 10:20 Dose: Not Given Lactobacillus Acidophilus (Bacid Acidophilus) 1 cap PO BID [facility] Last Admin: 11/30/16 00:53 Dose: 1 cap Levothyroxine Sodium (Synthroid) 175 mcg PO DAILY@0630 [facility] Last Admin: 11/30/16 06:41 Dose: 175 mcg Pantoprazole Sodium (Protonix Inj) 40 mg IVP DAILY [facility] Last Admin: 11/29/16 09:22 Dose: 40 mg - Labs Labs: 11/30/16 09:48 11/30/16 09:48 PT 19.5 SECONDS (9.7-12.2) H 10/28/16 08:07 INR 1.7 10/28/16 08:07 APTT 49 SECONDS (21-34) H 10/25/16 16:33 - Constitutional Appears: In Acute Distress, Chronically Ill - Head Exam Head Exam: ATRAUMATIC, NORMAL INSPECTION - Neck Exam Neck Exam: Normal Inspection. absent: Tenderness - Respiratory Exam Respiratory Exam: Rhonchi, Respiratory Distress - Cardiovascular Exam Cardiovascular Exam: Irregular Rhythm, +S1 - GI/Abdominal Exam GI & Abdominal Exam: Soft. absent: Tenderness - Extremities Exam Extremities Exam: Calf Tenderness, Tenderness - Neurological Exam Neurological Exam: Altered, Motor Sensory Deficit - Skin Skin Exam: Dry, Warm Assessment and Plan (1) Lower GI bleed Status: Acute (2) Diabetic nephropathy with proteinuria Status: Acute (3) CHF (congestive heart failure) Status: Chronic (4) ESRD (end stage renal disease) on dialysis Status: Chronic - Assessment and Plan (Free Text) Plan: Continue dialysis MWF as per family wishes Supportive care poor prognosis
--- NOTE | 2016-11-30 14:00 | CP.CCUPN ---
<Monica CanoLalita - Last Filed: 11/30/16 18:46> CCU Subjective - Physician Review Subjective (Free Text): Patient was seen and examined at bedside in the morning. Patient is non- verbal. Patient has poor prognosis. 11/30/16 13:57 CCU Objective - Vital Signs / Intake & Output Vital Signs (Last 4 hours): Vital Signs Temp Pulse Pulse Resp BP BP Pulse Ox 11/30/16 12:35 97.5 F L 108 H 20 121/22 L 100 11/30/16 12:05 117/28 L 11/30/16 11:35 103/29 L 11/30/16 11:19 79 24 84/14 L 100 11/30/16 11:05 85/19 L 11/30/16 10:35 80/18 L 11/30/16 10:20 72/18 L 11/30/16 10:05 75/12 L Intake and Output (Last 8hrs): Intake & Output 11/29/16 11/30/16 11/30/16 22:59 06:59 14:59 Intake Total 685 280 69 Output Total 1 Balance 685 279 69 Weight 120 lb 9.486 oz Intake: IV 34 Tube Feeding 280 280 35 Blood Product 325 Red Blood Cells Cpd As1 325 Lr Unit [id number] Other 80 Red Blood Cells Cpd As1 50 Lr Unit [id number] Output: Stool 1 Other: # Bowel Movements 1 - Physical Exam Head: Positive for: Atraumatic, Normocephalic Mouth: Positive for: Dry. Negative for: Moist Mucous Membranes Nose (Internal): Positive for: Other (NGT in place) Neck: Positive for: Other (trach in place) Respiratory/Chest: Positive for: Wheezes, Decreased Breath Sounds, Rhonchi. Negative for: Clear to Auscultation, Respiratory Distress, Accessory Muscle Use Cardiovascular: Positive for: Normal S1, S2. Negative for: Murmurs, Tachycardic , Bradycardic Abdomen: Negative for: Distention, Normal Bowel Sounds (decreased) Upper Extremity: Positive for: Cyanosis, Other (cold fingers, ischemic 2-4 digits on left hand ). Negative for: NORMAL PULSES, Neurovascularly Intact Lower Extremity: Positive for: Edema. Negative for: NORMAL PULSES Neurological: Negative for: GCS=15, Speech Normal Skin: Positive for: Cold (bilateral hands), Other (gangrenous fingertips). Negative for: Warm Psychiatric: Positive for: Other (non-verbal ). Negative for: Alert, Oriented x 3, Normal Insight, Normal Concentration - Medications Active Medications: Active Medications Generic Name Dose Route Start Last Admin Trade Name Freq PRN Reason Stop Dose Admin Acetaminophen 650 mg 11/23/16 00:09 11/23/16 05:57 Tylenol 650mg/20.3ml Solution Ud NG 650 mg Q6 PRN Administration temp above 101 Albuterol/Ipratropium 3 ml 11/12/16 14:00 11/30/16 13:35 Duoneb 3 Mg/0.5 Mg (3 Ml) Ud INH 3 ml RQ6 REKHA Administration Epoetin Sly 10,000 unit 11/21/16 18:30 11/30/16 10:05 Procrit IV 10,000 unit MWF REKHA Administration Hydromorphone HCl 0.5 mg 11/22/16 14:57 11/22/16 15:20 Dilaudid IVP 0.5 mg Q6H PRN Administration Pain, severe (8-10) Norepinephrine Bitartrate 4 mg 254 mls @ 15.24 mls/hr 11/16/16 20:28 13:00 / Sodium Chloride IV 3 mcg/min .[id number] PRN 11.43 mls/hr TITRATE PER MD ORDER Titration Protocol 4 MCG/MIN Insulin Human Regular 0 unit 11/30/16 10:00 11/30/16 10:20 Novolin R SC Not Given Q12 REKHA Protocol Lactobacillus Acidophilus 1 cap 11/29/16 23:00 11/30/16 13:03 Bacid Acidophilus PO 1 cap BID REKHA Administration Levothyroxine Sodium 175 mcg 11/18/16 06:30 11/30/16 06:41 Synthroid PO 175 mcg DAILY@0630 REKHA Administration Pantoprazole Sodium 40 mg 11/05/16 11:15 11/30/16 13:03 Protonix Inj IVP 40 mg DAILY REKHA Administration - Patient Studies Lab Studies: Lab Studies 11/30/16 11/30/16 11/30/16 Range/Units 11:26 09:48 09:48 WBC 14.2 H (4.8-10.8) K/uL RBC 2.43 L (3.80-5.20) Mil/uL Hgb 8.0 L (11.0-16.0) g/dL Hct 23.7 L (34.0-47.0) % MCV 97.5 (81.0-99.0) fL MCH 32.7 H (27.0-31.0) pg MCHC 33.6 (33.0-37.0) g/dL RDW 17.0 H (11.5-14.5) % Plt Count 110 L (130-400) K/uL MPV 12.1 H (7.2-11.7) fL Neut % (Auto) 83.4 H (50.0-75.0) % Lymph % (Auto) 7.4 L (20.0-40.0) % [place] % (Auto) 5.8 (0.0-10.0) % Eos % (Auto) 2.8 (0.0-4.0) % Baso % (Auto) 0.6 (0.0-2.0) % Neut # 11.9 H (1.8-7.0) K/uL Lymph # 1.0 (1.0-4.3) K/uL [place] # 0.8 (0.0-0.8) K/uL Eos # 0.4 (0.0-0.7) K/uL Baso # 0.1 (0.0-0.2) K/uL Neutrophils % (Manual) 74 (50-75) % Band Neutrophils % 9 H (0-2) % Lymphocytes % (Manual) 10 L (20-40) % Reactive Lymphs % 1 H (0-0) % Monocytes % (Manual) 4 (0-10) % Eosinophils % (Manual) 1 (0-4) % Basophils % (Manual) 1 (0-2) % Platelet Estimate Slightly decreased L (NORMAL) Poikilocytosis (manual Slight Anisocytosis (manual) Slight Macrocytosis (manual) Slight Target Cells Slight Sodium 133 (132-148) mmol/L Potassium 4.1 (3.6-5.2) mmol/L Chloride 97 L (98-107) mmol/L Carbon Dioxide 22 (22-30) mmol/L Anion Gap 18 (10-20) BUN 63 H (7-17) mg/dL Creatinine 2.2 H (0.7-1.2) MG/DL Est GFR ( Amer) 26 Est GFR (Non-Af Amer) 22 POC Glucose (mg/dL) 148 H (65-110) mg/dL Random Glucose 155 H (65-105) mg/dL Calcium 7.9 L (8.6-10.4) mg/dl Phosphorus 6.0 H (2.5-4.5) mg/dL Magnesium 1.7 (1.6-2.3) mg/dL Total Bilirubin 9.5 H (0.2-1.3) mg/dL AST 100 H D (14-36) U/L ALT 43 (9-52) U/L Alkaline Phosphatase 322 H D (38-126) U/L Total Protein 6.1 L (6.3-8.3) g/dL Albumin 2.0 L (3.5-5.0) g/dL Globulin 4.0 H (2.2-3.9) gm/dL Albumin/Globulin Ratio 0.5 L (1.0-2.1) Blood Type Antibody Screen 11/30/16 11/29/16 11/29/16 Range/Units 05:14 20:30 17:43 WBC 14.5 H (4.8-10.8) K/uL RBC 2.53 L (3.80-5.20) Mil/uL Hgb 8.4 L (11.0-16.0) g/dL Hct 24.5 L (34.0-47.0) % MCV 96.9 D (81.0-99.0) fL MCH 33.4 H (27.0-31.0) pg MCHC 34.4 (33.0-37.0) g/dL RDW 16.3 H (11.5-14.5) % Plt Count 102 L (130-400) K/uL MPV 11.5 (7.2-11.7) fL Neut % (Auto) 82.2 H (50.0-75.0) % Lymph % (Auto) 10.8 L (20.0-40.0) % [place] % (Auto) 5.0 (0.0-10.0) % Eos % (Auto) 0.9 (0.0-4.0) % Baso % (Auto) 1.1 (0.0-2.0) % Neut # 12.0 H (1.8-7.0) K/uL Lymph # 1.6 (1.0-4.3) K/uL [place] # 0.7 (0.0-0.8) K/uL Eos # 0.1 (0.0-0.7) K/uL Baso # 0.2 (0.0-0.2) K/uL Neutrophils % (Manual) (50-75) % Band Neutrophils % (0-2) % Lymphocytes % (Manual) (20-40) % Reactive Lymphs % (0-0) % Monocytes % (Manual) (0-10) % Eosinophils % (Manual) (0-4) % Basophils % (Manual) (0-2) % Platelet Estimate (NORMAL) Poikilocytosis (manual Anisocytosis (manual) Macrocytosis (manual) Target Cells Sodium (132-148) mmol/L Potassium (3.6-5.2) mmol/L Chloride (98-107) mmol/L Carbon Dioxide (22-30) mmol/L Anion Gap (10-20) BUN (7-17) mg/dL Creatinine (0.7-1.2) MG/DL Est GFR ( Amer) Est GFR (Non-Af Amer) POC Glucose (mg/dL) 187 H 231 H (65-110) mg/dL Random Glucose (65-105) mg/dL Calcium (8.6-10.4) mg/dl Phosphorus (2.5-4.5) mg/dL Magnesium (1.6-2.3) mg/dL Total Bilirubin (0.2-1.3) mg/dL AST (14-36) U/L ALT (9-52) U/L Alkaline Phosphatase (38-126) U/L Total Protein (6.3-8.3) g/dL Albumin (3.5-5.0) g/dL Globulin (2.2-3.9) gm/dL Albumin/Globulin Ratio (1.0-2.1) Blood Type Antibody Screen 11/29/16 11/29/16 Range/Units 14:01 11:36 WBC (4.8-10.8) K/uL RBC (3.80-5.20) Mil/uL Hgb (11.0-16.0) g/dL Hct (34.0-47.0) % MCV (81.0-99.0) fL MCH (27.0-31.0) pg MCHC (33.0-37.0) g/dL RDW (11.5-14.5) % Plt Count (130-400) K/uL MPV (7.2-11.7) fL Neut % (Auto) (50.0-75.0) % Lymph % (Auto) (20.0-40.0) % [place] % (Auto) (0.0-10.0) % Eos % (Auto) (0.0-4.0) % Baso % (Auto) (0.0-2.0) % Neut # (1.8-7.0) K/uL Lymph # (1.0-4.3) K/uL [place] # (0.0-0.8) K/uL Eos # (0.0-0.7) K/uL Baso # (0.0-0.2) K/uL Neutrophils % (Manual) (50-75) % Band Neutrophils % (0-2) % Lymphocytes % (Manual) (20-40) % Reactive Lymphs % (0-0) % Monocytes % (Manual) (0-10) % Eosinophils % (Manual) (0-4) % Basophils % (Manual) (0-2) % Platelet Estimate (NORMAL) Poikilocytosis (manual Anisocytosis (manual) Macrocytosis (manual) Target Cells Sodium (132-148) mmol/L Potassium (3.6-5.2) mmol/L Chloride (98-107) mmol/L Carbon Dioxide (22-30) mmol/L Anion Gap (10-20) BUN (7-17) mg/dL Creatinine (0.7-1.2) MG/DL Est GFR ( Amer) Est GFR (Non-Af Amer) POC Glucose (mg/dL) 219 H (65-110) mg/dL Random Glucose (65-105) mg/dL Calcium (8.6-10.4) mg/dl Phosphorus (2.5-4.5) mg/dL Magnesium (1.6-2.3) mg/dL Total Bilirubin (0.2-1.3) mg/dL AST (14-36) U/L ALT (9-52) U/L Alkaline Phosphatase (38-126) U/L Total Protein (6.3-8.3) g/dL Albumin (3.5-5.0) g/dL Globulin (2.2-3.9) gm/dL Albumin/Globulin Ratio (1.0-2.1) Blood Type B POSITIVE Antibody Screen Negative Laboratory Results - last 24 hr 11/29/16 11/29/16 11/29/16 11:36 14:01 17:43 WBC RBC Hgb Hct MCV MCH MCHC RDW Plt Count MPV Neut % (Auto) Lymph % (Auto) [place] % (Auto) Eos % (Auto) Baso % (Auto) Neut # Lymph # [place] # Eos # Baso # Neutrophils % (Manual) Band Neutrophils % Lymphocytes % (Manual) Reactive Lymphs % Monocytes % (Manual) Eosinophils % (Manual) Basophils % (Manual) Platelet Estimate Poikilocytosis (manual Anisocytosis (manual) Macrocytosis (manual) Target Cells Sodium Potassium Chloride Carbon Dioxide Anion Gap BUN Creatinine Est GFR ( Amer) Est GFR (Non-Af Amer) POC Glucose (mg/dL) 219 H 231 H Random Glucose Calcium Phosphorus Magnesium Total Bilirubin AST ALT Alkaline Phosphatase Total Protein Albumin Globulin Albumin/Globulin Ratio Blood Type B POSITIVE Antibody Screen Negative 11/29/16 11/30/16 11/30/16 20:30 05:14 09:48 WBC 14.5 H 14.2 H RBC 2.53 L 2.43 L Hgb 8.4 L 8.0 L Hct 24.5 L 23.7 L MCV 96.9 D 97.5 MCH 33.4 H 32.7 H MCHC 34.4 33.6 RDW 16.3 H 17.0 H Plt Count 102 L 110 L MPV 11.5 12.1 H Neut % (Auto) 82.2 H 83.4 H Lymph % (Auto) 10.8 L 7.4 L [place] % (Auto) 5.0 5.8 Eos % (Auto) 0.9 2.8 Baso % (Auto) 1.1 0.6 Neut # 12.0 H 11.9 H Lymph # 1.6 1.0 [place] # 0.7 0.8 Eos # 0.1 0.4 Baso # 0.2 0.1 Neutrophils % (Manual) 74 Band Neutrophils % 9 H Lymphocytes % (Manual) 10 L Reactive Lymphs % 1 H Monocytes % (Manual) 4 Eosinophils % (Manual) 1 Basophils % (Manual) 1 Platelet Estimate Slightly decreased L Poikilocytosis (manual Slight Anisocytosis (manual) Slight Macrocytosis (manual) Slight Target Cells Slight Sodium Potassium Chloride Carbon Dioxide Anion Gap BUN Creatinine Est GFR ( Amer) Est GFR (Non-Af Amer) POC Glucose (mg/dL) 187 H Random Glucose Calcium Phosphorus Magnesium Total Bilirubin AST ALT Alkaline Phosphatase Total Protein Albumin Globulin Albumin/Globulin Ratio Blood Type Antibody Screen 11/30/16 11/30/16 09:48 11:26 WBC RBC Hgb Hct MCV MCH MCHC RDW Plt Count MPV Neut % (Auto) Lymph % (Auto) [place] % (Auto) Eos % (Auto) Baso % (Auto) Neut # Lymph # [place] # Eos # Baso # Neutrophils % (Manual) Band Neutrophils % Lymphocytes % (Manual) Reactive Lymphs % Monocytes % (Manual) Eosinophils % (Manual) Basophils % (Manual) Platelet Estimate Poikilocytosis (manual Anisocytosis (manual) Macrocytosis (manual) Target Cells Sodium 133 Potassium 4.1 Chloride 97 L Carbon Dioxide 22 Anion Gap 18 BUN 63 H Creatinine 2.2 H Est GFR ( Amer) 26 Est GFR (Non-Af Amer) 22 POC Glucose (mg/dL) 148 H Random Glucose 155 H Calcium 7.9 L Phosphorus 6.0 H Magnesium 1.7 Total Bilirubin 9.5 H AST 100 H D ALT 43 Alkaline Phosphatase 322 H D Total Protein 6.1 L Albumin 2.0 L Globulin 4.0 H Albumin/Globulin Ratio 0.5 L Blood Type Antibody Screen Fingerstick Blood Sugar Results: 148 Review of Systems - Review of Systems Systems not reviewed;Unavailable: Intubated Critical Care Progress Note - Nutrition Nutrition: Nutrition Category Date Time Status NPO Diet [DIET] Diets 11/17/16 Breakfast Active Assessment/Plan - Assessment and Plan (Free Text) Assessment: 76 female patient admitted for GI bleed; s/p flexible sigmoidoscopy and multiple transfusions. Patient was transferred from the medical floor to the ICU because patient was noted to have a hypotensive state, bradycardia and mucus secretions. Patient is now vented on trach. Patient's antibiotics were stopped. Patient is on pressure support. Patients hgb decreased to 7.1, received 1 unit PRBC on 11/29/16. Hgb improved- monitor H/H. Neuro: Comatose, in persistent vegetative state. Pulm: Chronic respiratory failure, trached on vent. CV: Septic shock - off pressors Hem: Anemia of chronic disease and critical illness. - Hgb 7.1--> transfused 1 unit yesterday. - Anemia improved--> monitor H/H Renal: End-stage renal disease on hemodialysis. - received dialysis today Endo: Diabetes mellitus type 2, hypothyroidism and continue levothyroxine. GI: Nothing by mouth. tube feeds - Bacid ID: chronically ill, all antibiotics stopped DVT proph - scd's, holding anticoagulation with recent GI bleed. GI proph - Protonix IV dolan for strict I/O's during acute illness Code status - DNR <Jonatan Scales S - Last Filed: 11/30/16 18:49> CCU Objective - Vital Signs / Intake & Output Vital Signs (Last 4 hours): Vital Signs Pulse Resp BP Pulse Ox 11/30/16 18:12 86 18 97/27 L 100 11/30/16 18:08 86 19 74/23 L 100 11/30/16 18:00 83 17 100 11/30/16 17:09 96 H 18 113/20 L 100 11/30/16 17:00 89 13 100 11/30/16 16:07 90 22 105/31 L 100 11/30/16 16:00 87 22 100 11/30/16 15:07 88 22 99/40 L 100 11/30/16 15:00 89 22 100 Intake and Output (Last 8hrs): Intake & Output 11/30/16 11/30/16 11/30/16 06:59 14:59 22:59 Intake Total 280 356.3 61.3 Output Total 1 Balance 279 356.3 61.3 Intake: IV 34 15 Intake, IV Amount 42.3 11.3 Right PICC 42.3 11.3 Tube Feeding 280 280 35 Output: Stool 1 Other: # Bowel Movements 1 - Medications Active Medications: Active Medications Generic Name Dose Route Start Last Admin Trade Name Freq PRN Reason Stop Dose Admin Acetaminophen 650 mg 11/23/16 00:09 11/23/16 05:57 Tylenol 650mg/20.3ml Solution Ud NG 650 mg Q6 PRN Administration temp above 101 Albuterol/Ipratropium 3 ml 11/12/16 14:00 11/30/16 13:35 Duoneb 3 Mg/0.5 Mg (3 Ml) Ud INH 3 ml RQ6 REKHA Administration Epoetin Sly 10,000 unit 11/21/16 18:30 11/30/16 10:05 Procrit IV 10,000 unit MWF REKHA Administration Hydromorphone HCl 0.5 mg 11/22/16 14:57 11/22/16 15:20 Dilaudid IVP 0.5 mg Q6H PRN Administration Pain, severe (8-10) Norepinephrine Bitartrate 4 mg 254 mls @ 15.24 mls/hr 11/16/16 20:28 17:50 / Sodium Chloride IV 1 mcg/min .[id number] PRN 3.81 mls/hr TITRATE PER MD ORDER Titration Protocol 4 MCG/MIN Insulin Human Regular 0 unit 11/30/16 10:00 11/30/16 10:20 Novolin R SC Not Given Q12 REKHA Protocol Lactobacillus Acidophilus 1 cap 11/29/16 23:00 11/30/16 18:19 Bacid Acidophilus PO 1 cap BID REKHA Administration Levothyroxine Sodium 175 mcg 11/18/16 06:30 11/30/16 06:41 Synthroid PO 175 mcg DAILY@0630 REKHA Administration Pantoprazole Sodium 40 mg 11/05/16 11:15 11/30/16 13:03 Protonix Inj IVP 40 mg DAILY REKHA Administration - Patient Studies Lab Studies: Lab Studies 11/30/16 11/30/16 11/30/16 Range/Units 11:26 09:48 09:48 WBC 14.2 H (4.8-10.8) K/uL RBC 2.43 L (3.80-5.20) Mil/uL Hgb 8.0 L (11.0-16.0) g/dL Hct 23.7 L (34.0-47.0) % MCV 97.5 (81.0-99.0) fL MCH 32.7 H (27.0-31.0) pg MCHC 33.6 (33.0-37.0) g/dL RDW 17.0 H (11.5-14.5) % Plt Count 110 L (130-400) K/uL MPV 12.1 H (7.2-11.7) fL Neut % (Auto) 83.4 H (50.0-75.0) % Lymph % (Auto) 7.4 L (20.0-40.0) % [place] % (Auto) 5.8 (0.0-10.0) % Eos % (Auto) 2.8 (0.0-4.0) % Baso % (Auto) 0.6 (0.0-2.0) % Neut # 11.9 H (1.8-7.0) K/uL Lymph # 1.0 (1.0-4.3) K/uL [place] # 0.8 (0.0-0.8) K/uL Eos # 0.4 (0.0-0.7) K/uL Baso # 0.1 (0.0-0.2) K/uL Neutrophils % (Manual) 74 (50-75) % Band Neutrophils % 9 H (0-2) % Lymphocytes % (Manual) 10 L (20-40) % Reactive Lymphs % 1 H (0-0) % Monocytes % (Manual) 4 (0-10) % Eosinophils % (Manual) 1 (0-4) % Basophils % (Manual) 1 (0-2) % Platelet Estimate Slightly decreased L (NORMAL) Poikilocytosis (manual Slight Anisocytosis (manual) Slight Macrocytosis (manual) Slight Target Cells Slight Sodium 133 (132-148) mmol/L Potassium 4.1 (3.6-5.2) mmol/L Chloride 97 L (98-107) mmol/L Carbon Dioxide 22 (22-30) mmol/L Anion Gap 18 (10-20) BUN 63 H (7-17) mg/dL Creatinine 2.2 H (0.7-1.2) MG/DL Est GFR ( Amer) 26 Est GFR (Non-Af Amer) 22 POC Glucose (mg/dL) 148 H (65-110) mg/dL Random Glucose 155 H (65-105) mg/dL Calcium 7.9 L (8.6-10.4) mg/dl Phosphorus 6.0 H (2.5-4.5) mg/dL Magnesium 1.7 (1.6-2.3) mg/dL Total Bilirubin 9.5 H (0.2-1.3) mg/dL AST 100 H D (14-36) U/L ALT 43 (9-52) U/L Alkaline Phosphatase 322 H D (38-126) U/L Total Protein 6.1 L (6.3-8.3) g/dL Albumin 2.0 L (3.5-5.0) g/dL Globulin 4.0 H (2.2-3.9) gm/dL Albumin/Globulin Ratio 0.5 L (1.0-2.1) 11/30/16 11/29/16 Range/Units 05:14 20:30 WBC 14.5 H (4.8-10.8) K/uL RBC 2.53 L (3.80-5.20) Mil/uL Hgb 8.4 L (11.0-16.0) g/dL Hct 24.5 L (34.0-47.0) % MCV 96.9 D (81.0-99.0) fL MCH 33.4 H (27.0-31.0) pg MCHC 34.4 (33.0-37.0) g/dL RDW 16.3 H (11.5-14.5) % Plt Count 102 L (130-400) K/uL MPV 11.5 (7.2-11.7) fL Neut % (Auto) 82.2 H (50.0-75.0) % Lymph % (Auto) 10.8 L (20.0-40.0) % [place] % (Auto) 5.0 (0.0-10.0) % Eos % (Auto) 0.9 (0.0-4.0) % Baso % (Auto) 1.1 (0.0-2.0) % Neut # 12.0 H (1.8-7.0) K/uL Lymph # 1.6 (1.0-4.3) K/uL [place] # 0.7 (0.0-0.8) K/uL Eos # 0.1 (0.0-0.7) K/uL Baso # 0.2 (0.0-0.2) K/uL Neutrophils % (Manual) (50-75) % Band Neutrophils % (0-2) % Lymphocytes % (Manual) (20-40) % Reactive Lymphs % (0-0) % Monocytes % (Manual) (0-10) % Eosinophils % (Manual) (0-4) % Basophils % (Manual) (0-2) % Platelet Estimate (NORMAL) Poikilocytosis (manual Anisocytosis (manual) Macrocytosis (manual) Target Cells Sodium (132-148) mmol/L Potassium (3.6-5.2) mmol/L Chloride (98-107) mmol/L Carbon Dioxide (22-30) mmol/L Anion Gap (10-20) BUN (7-17) mg/dL Creatinine (0.7-1.2) MG/DL Est GFR ( Amer) Est GFR (Non-Af Amer) POC Glucose (mg/dL) 187 H (65-110) mg/dL Random Glucose (65-105) mg/dL Calcium (8.6-10.4) mg/dl Phosphorus (2.5-4.5) mg/dL Magnesium (1.6-2.3) mg/dL Total Bilirubin (0.2-1.3) mg/dL AST (14-36) U/L ALT (9-52) U/L Alkaline Phosphatase (38-126) U/L Total Protein (6.3-8.3) g/dL Albumin (3.5-5.0) g/dL Globulin (2.2-3.9) gm/dL Albumin/Globulin Ratio (1.0-2.1) Laboratory Results - last 24 hr 11/29/16 11/30/16 11/30/16 20:30 05:14 09:48 WBC 14.5 H 14.2 H RBC 2.53 L 2.43 L Hgb 8.4 L 8.0 L Hct 24.5 L 23.7 L MCV 96.9 D 97.5 MCH 33.4 H 32.7 H MCHC 34.4 33.6 RDW 16.3 H 17.0 H Plt Count 102 L 110 L MPV 11.5 12.1 H Neut % (Auto) 82.2 H 83.4 H Lymph % (Auto) 10.8 L 7.4 L [place] % (Auto) 5.0 5.8 Eos % (Auto) 0.9 2.8 Baso % (Auto) 1.1 0.6 Neut # 12.0 H 11.9 H Lymph # 1.6 1.0 [place] # 0.7 0.8 Eos # 0.1 0.4 Baso # 0.2 0.1 Neutrophils % (Manual) 74 Band Neutrophils % 9 H Lymphocytes % (Manual) 10 L Reactive Lymphs % 1 H Monocytes % (Manual) 4 Eosinophils % (Manual) 1 Basophils % (Manual) 1 Platelet Estimate Slightly decreased L Poikilocytosis (manual Slight Anisocytosis (manual) Slight Macrocytosis (manual) Slight Target Cells Slight Sodium Potassium Chloride Carbon Dioxide Anion Gap BUN Creatinine Est GFR ( Amer) Est GFR (Non-Af Amer) POC Glucose (mg/dL) 187 H Random Glucose Calcium Phosphorus Magnesium Total Bilirubin AST ALT Alkaline Phosphatase Total Protein Albumin Globulin Albumin/Globulin Ratio 11/30/16 11/30/16 09:48 11:26 WBC RBC Hgb Hct MCV MCH MCHC RDW Plt Count MPV Neut % (Auto) Lymph % (Auto) [place] % (Auto) Eos % (Auto) Baso % (Auto) Neut # Lymph # [place] # Eos # Baso # Neutrophils % (Manual) Band Neutrophils % Lymphocytes % (Manual) Reactive Lymphs % Monocytes % (Manual) Eosinophils % (Manual) Basophils % (Manual) Platelet Estimate Poikilocytosis (manual Anisocytosis (manual) Macrocytosis (manual) Target Cells Sodium 133 Potassium 4.1 Chloride 97 L Carbon Dioxide 22 Anion Gap 18 BUN 63 H Creatinine 2.2 H Est GFR ( Amer) 26 Est GFR (Non-Af Amer) 22 POC Glucose (mg/dL) 148 H Random Glucose 155 H Calcium 7.9 L Phosphorus 6.0 H Magnesium 1.7 Total Bilirubin 9.5 H AST 100 H D ALT 43 Alkaline Phosphatase 322 H D Total Protein 6.1 L Albumin 2.0 L Globulin 4.0 H Albumin/Globulin Ratio 0.5 L Critical Care Progress Note - Nutrition Nutrition: Nutrition Category Date Time Status NPO Diet [DIET] Diets 11/17/16 Breakfast Active Assessment/Plan (1) Respiratory failure Current Visit: Yes Status: Acute Comment: Continue ventilatory support and reduce FiO2 as tolerated Transfuse platelets Continue feeding Monitor platelet count and H&H Prognosis poor (2) Lower GI bleed Current Visit: Yes Status: Acute (3) ESRD (end stage renal disease) on dialysis Current Visit: No Status: Chronic Attending/Attestation - Attestation I have personally seen and examined this patient.: Yes I have fully participated in the care of the patient.: Yes I have reviewed all pertinent clinical information: Yes Notes (Text): 11/30/16 18:48 Patient seen and examined in the intensive care unit. Case discussed with house staff in the morning rounds. Status post transfusion of packed RBCs yesterday Continue hemodialysis and ventilator support Prognosis poor
--- NOTE | 2016-11-30 23:46 | CP.PCM.PN ---
Subjective - Date & Time of Evaluation Date of Evaluation: 11/30/16 Time of Evaluation: 23:45 - Subjective Subjective: is now moving around. Agitation noted. Unable to tolerate the CPAP today. FiO2 60%. Minimal rectal bleeding still noted. Received a dialysis today, with the norepinephrine. Poor appetite. Poor intake, poor nutrition. Overall prognosis very poor, multiple separate bedsore sacral decubiti. We will continue the current treatment and will follow the patient Objective - Vital Signs/Intake and Output Vital Signs (last 24 hours): Temp Pulse Resp BP Pulse Ox 98.4 F 102 H 25 H 109/14 L 100 11/30/16 19:52 11/30/16 23:08 11/30/16 23:08 11/30/16 23:08 11/30/16 23:08 Intake and Output: 11/30/16 12/01/16 18:59 06:59 Intake Total 541.4 326.5 Balance 541.4 326.5 - Medications Medications: Current Medications Acetaminophen (Tylenol 650mg/20.3ml Solution Ud) 650 mg NG Q6 PRN PRN Reason: temp above 101 Last Admin: 11/23/16 05:57 Dose: 650 mg Albuterol/Ipratropium (Duoneb 3 Mg/0.5 Mg (3 Ml) Ud) 3 ml INH RQ6 REKHA Last Admin: 11/30/16 19:43 Dose: 3 ml Epoetin Sly (Procrit) 10,000 unit IV MWF [facility] Last Admin: 11/30/16 10:05 Dose: 10,000 unit Hydromorphone HCl (Dilaudid) 0.5 mg IVP Q6H PRN PRN Reason: Pain, severe (8-10) Last Admin: 11/22/16 15:20 Dose: 0.5 mg Norepinephrine Bitartrate 4 mg (/ Sodium Chloride) 254 mls @ 15.24 mls/hr IV .[id number] PRN; Protocol; 4 MCG/MIN PRN Reason: TITRATE PER MD ORDER Last Titration: 11/30/16 23:09 Dose: 2 mcg/min, 7.62 mls/hr Insulin Human Regular (Novolin R) 0 unit SC Q12 REKHA PRN Reason: Protocol Last Admin: 11/30/16 22:30 Dose: 3 unit Lactobacillus Acidophilus (Bacid Acidophilus) 1 cap PO BID [facility] Last Admin: 11/30/16 18:19 Dose: 1 cap Levothyroxine Sodium (Synthroid) 175 mcg PO DAILY@0630 [facility] Last Admin: 11/30/16 06:41 Dose: 175 mcg Pantoprazole Sodium (Protonix Inj) 40 mg IVP DAILY [facility] Last Admin: 11/30/16 13:03 Dose: 40 mg - Labs Labs: 11/30/16 09:48 11/30/16 09:48 PT 19.5 SECONDS (9.7-12.2) H 10/28/16 08:07 INR 1.7 10/28/16 08:07 APTT 49 SECONDS (21-34) H 10/25/16 16:33
[2016-12-01] MEDS: Albuterol-Ipratrop 3 mg / 0.5 (3 ml) UD INH SCH ×4 (01:08→19:26)
[2016-12-01] MEDS: Levothyroxine 175 MCG TAB PO SCH (05:46)
[2016-12-01 06:23] LABS: BASO # 0.2 K/uL (0.0-0.2); BASO % 1.4 % (0.0-2.0); EOS # 0.3 K/uL (0.0-0.7); EOS % 2.7 % (0.0-4.0); HEMATOCRIT 21.8 % (34.0-47.0); LYMPH # 1.5 K/uL (1.0-4.3); LYMPH % 11.8 % (20.0-40.0); MEAN CORPUSCULAR HEMOGLOBIN 34.3 pg (27.0-31.0); MONO % 7.9 % (0.0-10.0); NRBC % 0.1 % (0.0-2.0); RED CELL DISTRIBUTION WIDTH 17.1 % (11.5-14.5); WHITE BLOOD COUNT 12.3 K/uL (4.8-10.8)
[2016-12-01 06:52] LABS: ALB/GLOB RATIO 0.6 (1.0-2.1); BILIRUBIN,TOTAL 9.8 mg/dL (0.2-1.3); CALCIUM 8.3 mg/dl (8.6-10.4); MAGNESIUM 1.9 mg/dL (1.6-2.3); PHOSPHOROUS 4.3 mg/dL (2.5-4.5); POTASSIUM 3.5 mmol/L (3.6-5.2); TOTAL PROTEIN 6.3 g/dL (6.3-8.3)
--- NOTE | 2016-12-01 09:35 | CP.PCM.PN ---
Subjective - Date & Time of Evaluation Date of Evaluation: 12/01/16 Time of Evaluation: 09:33 - Subjective Subjective: s/p dialysis 8/9 Remains on vent, poorly responsive Levo dose reduced 1 mcg/min Doing poorly- no new changes otherwise Objective - Vital Signs/Intake and Output Vital Signs (last 24 hours): Temp Pulse Resp BP Pulse Ox 100 F H 88 15 94/31 L 100 12/01/16 00:00 12/01/16 07:00 12/01/16 07:00 12/01/16 06:07 12/01/16 07:00 Intake and Output: 12/01/16 12/01/16 06:59 18:59 Intake Total 654.1 Balance 654.1 - Medications Medications: Current Medications Acetaminophen (Tylenol 650mg/20.3ml Solution Ud) 650 mg NG Q6 PRN PRN Reason: temp above 101 Last Admin: 11/23/16 05:57 Dose: 650 mg Albuterol/Ipratropium (Duoneb 3 Mg/0.5 Mg (3 Ml) Ud) 3 ml INH RQ6 [facility] Last Admin: 12/01/16 07:44 Dose: 3 ml Epoetin Sly (Procrit) 10,000 unit IV MWF [facility] Last Admin: 11/30/16 10:05 Dose: 10,000 unit Hydromorphone HCl (Dilaudid) 0.5 mg IVP Q6H PRN PRN Reason: Pain, severe (8-10) Last Admin: 11/22/16 15:20 Dose: 0.5 mg Norepinephrine Bitartrate 4 mg (/ Sodium Chloride) 254 mls @ 15.24 mls/hr IV .[id number] PRN; Protocol; 4 MCG/MIN PRN Reason: TITRATE PER MD ORDER Last Titration: 12/01/16 04:09 Dose: 1 mcg/min, 3.81 mls/hr Insulin Human Regular (Novolin R) 0 unit SC Q12 REKHA PRN Reason: Protocol Last Admin: 11/30/16 22:30 Dose: 3 unit Lactobacillus Acidophilus (Bacid Acidophilus) 1 cap PO BID [facility] Last Admin: 11/30/16 18:19 Dose: 1 cap Levothyroxine Sodium (Synthroid) 175 mcg PO DAILY@0630 [facility] Last Admin: 12/01/16 05:46 Dose: 175 mcg Pantoprazole Sodium (Protonix Inj) 40 mg IVP DAILY [facility] Last Admin: 11/30/16 13:03 Dose: 40 mg - Labs Labs: 12/01/16 06:10 12/01/16 06:10 PT 19.5 SECONDS (9.7-12.2) H 10/28/16 08:07 INR 1.7 10/28/16 08:07 APTT 49 SECONDS (21-34) H 10/25/16 16:33 - Constitutional Appears: In Acute Distress, Chronically Ill - Head Exam Head Exam: ATRAUMATIC, NORMAL INSPECTION - Eye Exam Eye Exam: EOMI, Normal appearance - Neck Exam Neck Exam: Normal Inspection. absent: Tenderness - Respiratory Exam Respiratory Exam: Rhonchi, Respiratory Distress - Cardiovascular Exam Cardiovascular Exam: Tachycardia, +S1 - GI/Abdominal Exam GI & Abdominal Exam: Soft. absent: Tenderness - Extremities Exam Extremities Exam: Normal Inspection, Tenderness - Neurological Exam Neurological Exam: Altered, Motor Sensory Deficit - Skin Skin Exam: Dry, Warm Assessment and Plan (1) Lower GI bleed Status: Acute (2) Diabetic nephropathy with proteinuria Status: Acute (3) CHF (congestive heart failure) Status: Chronic (4) ESRD (end stage renal disease) on dialysis Status: Chronic - Assessment and Plan (Free Text) Plan: Dialysis MWF Vent care BP support Supportive measures- px grim
[2016-12-01] MEDS: Lactobacillus Acidophilus 500 MU Cap PO SCH ×2 (10:30→17:59)
[2016-12-01] MEDS: (Novolin R) Insulin Human Regular 100 units/ml vial SC SCH ×2 (10:44→22:44)
--- NOTE | 2016-12-01 10:57 | RAD ---
Chest x-ray single frontal view History: Pneumonia. Comparison: 11/26/2016 Findings: Tracheostomy tube in place. NG tube extending into the stomach. Right central venous catheter tip extending to the cavoatrial junction. Moderate loculated right pleural effusion. Moderate to severe venous congestion with confluent airspace opacities within the mid to lower lung zones. Biapical pleural thickening with upper lobe granulomatous changes. Small nodular density at the left lung apex. Cardiomegaly. Status post median sternotomy and CABG. Calcification at the aortic knob. Degenerative changes in the spine and shoulders. Deformity of the right proximal humerus. Probable loose osteochondral bodies at the left glenohumeral joint space. Impression: Tracheostomy tube in place. NG tube extending into the stomach. Right central venous catheter tip extending to the cavoatrial junction. Moderate loculated right pleural effusion. Moderate to severe venous congestion with confluent airspace opacities within the mid to lower lung zones. Biapical pleural thickening with upper lobe granulomatous changes. Small nodular density at the left lung apex. Cardiomegaly. Status post median sternotomy and CABG. Calcification at the aortic knob. Degenerative changes in the spine and shoulders. Deformity of the right proximal humerus. Probable loose osteochondral bodies at the left glenohumeral joint space.
--- NOTE | 2016-12-01 18:36 | CP.CCUPN ---
CCU Subjective - Physician Review Events Since Last Encounter (Free Text): 12/01/16 18:34 no change in clinical status, still comatose. CCU Objective - Vital Signs / Intake & Output Vital Signs (Last 4 hours): Vital Signs Temp Pulse Resp BP Pulse Ox 12/01/16 18:00 87 17 100 12/01/16 17:00 87 19 100 12/01/16 16:00 98.2 F 85 22 96 12/01/16 15:07 75 22 81/28 L 100 12/01/16 15:00 73 22 100 Intake and Output (Last 8hrs): Intake & Output 12/01/16 12/01/16 12/01/16 06:59 14:59 22:59 Intake Total 364.6 352.6 110 Balance 364.6 352.6 110 Weight 111 lb 1.808 oz Intake: IV 74 Intake, IV Amount 45.6 7.6 40 Right PICC 45.6 7.6 40 Tube Feeding 245 245 70 Other 100 Other: # Bowel Movements 2 - Physical Exam Physical Exam Limitations: Positive for: Altered Mental Status Head: Positive for: Atraumatic, Normocephalic Pupils: Positive for: PERRL Extroacular Muscles: Negative for: EOMI Conjunctiva: Positive for: Icteric Mouth: Positive for: Dry. Negative for: Moist Mucous Membranes Nose (Internal): Positive for: Other (NGT in place) Neck: Positive for: Other (trach in place) Respiratory/Chest: Positive for: Wheezes, Decreased Breath Sounds, Rhonchi. Negative for: Clear to Auscultation, Respiratory Distress, Accessory Muscle Use Cardiovascular: Positive for: Normal S1, S2. Negative for: Murmurs, Tachycardic , Bradycardic Abdomen: Negative for: Distention, Normal Bowel Sounds (decreased) Rectal: Positive for: Gross Blood Upper Extremity: Positive for: Cyanosis, Other (cold fingers, ischemic 2-4 digits on left hand ). Negative for: NORMAL PULSES, Neurovascularly Intact Lower Extremity: Positive for: Edema. Negative for: NORMAL PULSES Neurological: Negative for: GCS=15, Speech Normal Skin: Positive for: Cold (bilateral hands), Other (gangrenous fingertips). Negative for: Warm Psychiatric: Positive for: Other (non-verbal ). Negative for: Alert, Oriented x 3, Normal Insight, Normal Concentration - Medications Active Medications: Active Medications Generic Name Dose Route Start Last Admin Trade Name Clementq PRN Reason Stop Dose Admin Acetaminophen 650 mg 11/23/16 00:09 11/23/16 05:57 Tylenol 650mg/20.3ml Solution Ud NG 650 mg Q6 PRN Administration temp above 101 Albuterol/Ipratropium 3 ml 11/12/16 14:00 12/01/16 13:12 Duoneb 3 Mg/0.5 Mg (3 Ml) Ud INH 3 ml RQ6 [facility] Administration Epoetin Sly 10,000 unit 11/21/16 18:30 11/30/16 10:05 Procrit IV 10,000 unit MWF RE[facility] Administration Hydromorphone HCl 0.5 mg 11/22/16 14:57 11/22/16 15:20 Dilaudid IVP 0.5 mg Q6H PRN Administration Pain, severe (8-10) Insulin Human Regular 0 unit 11/30/16 10:00 12/01/16 10:44 Novolin R SC 2 unit Q12 REKHA Administration Protocol Lactobacillus Acidophilus 1 cap 11/29/16 23:00 12/01/16 17:59 Bacid Acidophilus PO 1 cap BID REKHA Administration Levothyroxine Sodium 175 mcg 11/18/16 06:30 12/01/16 05:46 Synthroid PO 175 mcg DAILY@0630 REK[facility] Administration Pantoprazole Sodium 40 mg 11/05/16 11:15 12/01/16 10:30 Protonix Inj IVP 40 mg DAILY REKHA Administration - Patient Studies Lab Studies: Microbiology Studies 12/01/16 04:00 Gram Stain - Final Trachasp Lab Studies 12/01/16 12/01/16 12/01/16 Range/Units 10:28 06:10 06:10 WBC 12.3 H (4.8-10.8) K/uL RBC 2.23 L (3.80-5.20) Mil/uL Hgb 7.6 L (11.0-16.0) g/dL Hct 21.8 L (34.0-47.0) % MCV 98.0 (81.0-99.0) fL MCH 34.3 H (27.0-31.0) pg MCHC 35.0 (33.0-37.0) g/dL RDW 17.1 H (11.5-14.5) % Plt Count 136 (130-400) K/uL MPV 12.0 H (7.2-11.7) fL Neut % (Auto) 76.2 H (50.0-75.0) % Lymph % (Auto) 11.8 L (20.0-40.0) % [place] % (Auto) 7.9 (0.0-10.0) % Eos % (Auto) 2.7 (0.0-4.0) % Baso % (Auto) 1.4 (0.0-2.0) % Neut # 9.4 H (1.8-7.0) K/uL Lymph # 1.5 (1.0-4.3) K/uL [place] # 1.0 H (0.0-0.8) K/uL Eos # 0.3 (0.0-0.7) K/uL Baso # 0.2 (0.0-0.2) K/uL Sodium 135 (132-148) mmol/L Potassium 3.5 L (3.6-5.2) mmol/L Chloride 98 (98-107) mmol/L Carbon Dioxide 23 (22-30) mmol/L Anion Gap 18 (10-20) BUN 42 H (7-17) mg/dL Creatinine 1.7 H (0.7-1.2) MG/DL Est GFR ( Amer) 36 Est GFR (Non-Af Amer) 29 POC Glucose (mg/dL) 228 H (65-110) mg/dL Random Glucose 173 H (65-105) mg/dL Calcium 8.3 L (8.6-10.4) mg/dl Phosphorus 4.3 (2.5-4.5) mg/dL Magnesium 1.9 (1.6-2.3) mg/dL Total Bilirubin 9.8 H (0.2-1.3) mg/dL AST 104 H (14-36) U/L ALT 40 (9-52) U/L Alkaline Phosphatase 394 H D (38-126) U/L Total Protein 6.3 (6.3-8.3) g/dL Albumin 2.3 L (3.5-5.0) g/dL Globulin 4.0 H (2.2-3.9) gm/dL Albumin/Globulin Ratio 0.6 L (1.0-2.1) 12/01/16 11/30/16 Range/Units 05:04 22:15 WBC (4.8-10.8) K/uL RBC (3.80-5.20) Mil/uL Hgb (11.0-16.0) g/dL Hct (34.0-47.0) % MCV (81.0-99.0) fL MCH (27.0-31.0) pg MCHC (33.0-37.0) g/dL RDW (11.5-14.5) % Plt Count (130-400) K/uL MPV (7.2-11.7) fL Neut % (Auto) (50.0-75.0) % Lymph % (Auto) (20.0-40.0) % [place] % (Auto) (0.0-10.0) % Eos % (Auto) (0.0-4.0) % Baso % (Auto) (0.0-2.0) % Neut # (1.8-7.0) K/uL Lymph # (1.0-4.3) K/uL [place] # (0.0-0.8) K/uL Eos # (0.0-0.7) K/uL Baso # (0.0-0.2) K/uL Sodium (132-148) mmol/L Potassium (3.6-5.2) mmol/L Chloride (98-107) mmol/L Carbon Dioxide (22-30) mmol/L Anion Gap (10-20) BUN (7-17) mg/dL Creatinine (0.7-1.2) MG/DL Est GFR ( Amer) Est GFR (Non-Af Amer) POC Glucose (mg/dL) 198 H 291 H (65-110) mg/dL Random Glucose (65-105) mg/dL Calcium (8.6-10.4) mg/dl Phosphorus (2.5-4.5) mg/dL Magnesium (1.6-2.3) mg/dL Total Bilirubin (0.2-1.3) mg/dL AST (14-36) U/L ALT (9-52) U/L Alkaline Phosphatase (38-126) U/L Total Protein (6.3-8.3) g/dL Albumin (3.5-5.0) g/dL Globulin (2.2-3.9) gm/dL Albumin/Globulin Ratio (1.0-2.1) Laboratory Results - last 24 hr 11/30/16 12/01/16 12/01/16 22:15 05:04 06:10 WBC 12.3 H RBC 2.23 L Hgb 7.6 L Hct 21.8 L MCV 98.0 MCH 34.3 H MCHC 35.0 RDW 17.1 H Plt Count 136 MPV 12.0 H Neut % (Auto) 76.2 H Lymph % (Auto) 11.8 L [place] % (Auto) 7.9 Eos % (Auto) 2.7 Baso % (Auto) 1.4 Neut # 9.4 H Lymph # 1.5 [place] # 1.0 H Eos # 0.3 Baso # 0.2 Sodium Potassium Chloride Carbon Dioxide Anion Gap BUN Creatinine Est GFR ( Amer) Est GFR (Non-Af Amer) POC Glucose (mg/dL) 291 H 198 H Random Glucose Calcium Phosphorus Magnesium Total Bilirubin AST ALT Alkaline Phosphatase Total Protein Albumin Globulin Albumin/Globulin Ratio 12/01/16 12/01/16 06:10 10:28 WBC RBC Hgb Hct MCV MCH MCHC RDW Plt Count MPV Neut % (Auto) Lymph % (Auto) [place] % (Auto) Eos % (Auto) Baso % (Auto) Neut # Lymph # [place] # Eos # Baso # Sodium 135 Potassium 3.5 L Chloride 98 Carbon Dioxide 23 Anion Gap 18 BUN 42 H Creatinine 1.7 H Est GFR ( Amer) 36 Est GFR (Non-Af Amer) 29 POC Glucose (mg/dL) 228 H Random Glucose 173 H Calcium 8.3 L Phosphorus 4.3 Magnesium 1.9 Total Bilirubin 9.8 H AST 104 H ALT 40 Alkaline Phosphatase 394 H D Total Protein 6.3 Albumin 2.3 L Globulin 4.0 H Albumin/Globulin Ratio 0.6 L Fingerstick Blood Sugar Results: 228 Review of Systems - Review of Systems Systems not reviewed;Unavailable: Altered Mental Status Critical Care Progress Note - Nutrition Nutrition: Nutrition Category Date Time Status NPO Diet [DIET] Diets 11/17/16 Breakfast Active Assessment/Plan (1) Leucocytosis Assessment and plan: 77yo F. PMHx stage renal disease on hemodialysis, acute on chronic systolic CHF (EF of 29%), right ureteral stent (replaced 12/04/15), diabetes mellitus type 2 , right ureteral stent thoracenteses for recurrent pleural effusions ( complicated by hydropneumothorax and hemothorax, 08/12/16), AV fistula (12/10/15 ) (previous bleeding complications, 02/22/16, and occlusion status post thrombectomy and percutaneous transluminal angioplasty with new anastomosis, 09/07), CAD with stent, hypothyroidism with myxedema coma, prolonged hospitalization since July 2016, severe protein calorie malnutrition, recent ischemic colitis with bleeding, gangrenous fingertips. Neuro: Comatose, in persistent vegetative state. Pulm: Chronic respiratory failure, trached on vent. CV: stopped pressor. continue Midodrine. Can tolerate lower press Hem: Anemia of chronic disease and critical illness. Renal: End-stage renal disease on hemodialysis. Endo: Diabetes mellitus type 2, hypothyroidism and continue levothyroxine. GI: Nothing by mouth. tube feeds ID: chronically ill, all antibiotics stopped DVT proph - scd's, holding anticoagulation with recent GI bleed. GI proph - Protonix IV dolan for strict I/O's during acute illness Code status - DNR Patient is chronically and critically ill with no hope of recovery. This is been explained in detail, repeatedly to the daughter of the patient. Transferring to floor. Critical Care Time spent 35 minutes Multi-disciplinary rounds were performed with house staff, nursing, speech therapy, respiratory therapy, pharmacy and nutrition with integrated input from the primary team/attending and other consulting services. The documented time is cumulative and includes review of patient data/exams/labs/chart review and examination of the patient on rounds and throughout the day; time is exclusive of any procedures or teaching time. Current Visit: Yes Status: Acute
[2016-12-01] MEDS: Acetaminophen 650mg/20.3ml solution UD NG PRN (23:17)
[2016-12-02] MEDS: Albuterol-Ipratrop 3 mg / 0.5 (3 ml) UD INH SCH ×4 (01:19→19:43)
[2016-12-02] MEDS: Levothyroxine 175 MCG TAB PO SCH (05:42)
[2016-12-02 09:28] LABS: BASO # 0.1 K/uL (0.0-0.2); BASO % 1.1 % (0.0-2.0); EOS # 0.2 K/uL (0.0-0.7); EOS % 1.4 % (0.0-4.0); HEMATOCRIT 22.2 % (34.0-47.0); LYMPH # 1.5 K/uL (1.0-4.3); LYMPH % 12.3 % (20.0-40.0); MEAN CORPUSCULAR HEMOGLOBIN 34.1 pg (27.0-31.0); MEAN CORPUSCULAR HGB CONC 33.5 g/dL (33.0-37.0); MEAN PLATELET VOLUME 11.8 fL (7.2-11.7); MONO % 8.3 % (0.0-10.0); NRBC % 0.1 % (0.0-2.0); RED CELL DISTRIBUTION WIDTH 26.5 % (11.5-14.5); WHITE BLOOD COUNT 12.2 K/uL (4.8-10.8)
[2016-12-02 09:33] LABS: MEAN CELL VOLUME 101.7 fL (81.0-99.0)
[2016-12-02] MEDS: Lactobacillus Acidophilus 500 MU Cap PO SCH ×2 (09:51→18:10)
[2016-12-02] MEDS: (Novolin R) Insulin Human Regular 100 units/ml vial SC SCH ×2 (10:45→22:00)
[2016-12-02] MEDS: Norepinephrine 4 MG in Dextrose 5% In Water 246 ML IV PRN (13:15)
--- NOTE | 2016-12-02 13:44 | CP.PCM.PN ---
Subjective - Date & Time of Evaluation Date of Evaluation: 12/02/16 Time of Evaluation: 13:41 - Subjective Subjective: Unresponsive now Remains on vent; levo at 4mcg/min Discussed with daughter- still wants dialysis despite poor prognosis receiving blood transfusion will try to schedule dilaysis today Objective - Vital Signs/Intake and Output Vital Signs (last 24 hours): Temp Pulse Resp BP Pulse Ox 98.1 F 79 20 73/18 L 100 12/02/16 11:49 12/02/16 13:15 12/02/16 13:15 12/02/16 13:15 12/02/16 13:15 Intake and Output: 12/02/16 12/02/16 06:59 18:59 Intake Total 655 20 Balance 655 20 - Medications Medications: Current Medications Acetaminophen (Tylenol 650mg/20.3ml Solution Ud) 650 mg NG Q6 PRN PRN Reason: temp above 101 Last Admin: 12/01/16 23:17 Dose: 650 mg Albuterol/Ipratropium (Duoneb 3 Mg/0.5 Mg (3 Ml) Ud) 3 ml INH RQ6 [facility] Last Admin: 12/02/16 13:26 Dose: 3 ml Epoetin Sly (Procrit) 10,000 unit IV MWF [facility] Last Admin: 11/30/16 10:05 Dose: 10,000 unit Hydromorphone HCl (Dilaudid) 0.5 mg IVP Q6H PRN PRN Reason: Pain, severe (8-10) Last Admin: 11/22/16 15:20 Dose: 0.5 mg Norepinephrine Bitartrate 4 mg (/ Dextrose) 250 mls @ 15 mls/hr IV .[id number] PRN ; Protocol; 4 MCG/MIN PRN Reason: TITRATE PER MD ORDER Last Admin: 12/02/16 13:15 Dose: 4 mcg/min, 15 mls/hr Insulin Human Regular (Novolin R) 0 unit SC Q12 REKHA PRN Reason: Protocol Last Admin: 12/02/16 10:45 Dose: 3 unit Lactobacillus Acidophilus (Bacid Acidophilus) 1 cap PO BID [facility] Last Admin: 12/02/16 09:51 Dose: 1 cap Levothyroxine Sodium (Synthroid) 175 mcg PO DAILY@0630 [facility] Last Admin: 12/02/16 05:42 Dose: 175 mcg Pantoprazole Sodium (Protonix Inj) 40 mg IVP DAILY [facility] Last Admin: 12/02/16 09:51 Dose: 40 mg - Labs Labs: 12/02/16 09:21 12/01/16 06:10 PT 19.5 SECONDS (9.7-12.2) H 10/28/16 08:07 INR 1.7 10/28/16 08:07 APTT 49 SECONDS (21-34) H 10/25/16 16:33 - Constitutional Appears: Chronically Ill - Head Exam Head Exam: ATRAUMATIC, NORMAL INSPECTION - Neck Exam Neck Exam: Normal Inspection. absent: Tenderness - Respiratory Exam Respiratory Exam: Rhonchi, Respiratory Distress - Cardiovascular Exam Cardiovascular Exam: Tachycardia, +S1 - GI/Abdominal Exam GI & Abdominal Exam: Soft. absent: Tenderness - Extremities Exam Extremities Exam: absent: Pedal Edema, Tenderness - Neurological Exam Neurological Exam: Altered, Motor Sensory Deficit - Skin Skin Exam: Dry, Warm Assessment and Plan (1) Lower GI bleed Status: Acute (2) Diabetic nephropathy with proteinuria Status: Acute (3) CHF (congestive heart failure) Status: Chronic (4) ESRD (end stage renal disease) on dialysis Status: Chronic - Assessment and Plan (Free Text) Plan: Try dialysis today as per family wishes
[2016-12-02] MEDS: Epoetin Alfa 10,000 unit/ml Dialysis IV SCH (16:14)
[2016-12-03] MEDS: Albuterol-Ipratrop 3 mg / 0.5 (3 ml) UD INH SCH ×4 (01:14→19:16)
[2016-12-03 06:29] LABS: BASO # 0.1 K/uL (0.0-0.2); BASO % 0.4 % (0.0-2.0); EOS # 0.2 K/uL (0.0-0.7); EOS % 1.4 % (0.0-4.0); HEMATOCRIT 26.4 % (34.0-47.0); LYMPH # 0.9 K/uL (1.0-4.3); LYMPH % 6.7 % (20.0-40.0); MEAN CELL VOLUME 100.7 fL (81.0-99.0); MEAN CORPUSCULAR HEMOGLOBIN 33.9 pg (27.0-31.0); MEAN CORPUSCULAR HGB CONC 33.6 g/dL (33.0-37.0); MEAN PLATELET VOLUME 11.6 fL (7.2-11.7); MONO # 1.1 K/uL (0.0-0.8); MONO % 8.2 % (0.0-10.0); NRBC % 0.1 % (0.0-2.0); PLATELET COUNT 151 K/uL (130-400); RED CELL DISTRIBUTION WIDTH 23.2 % (11.5-14.5); WHITE BLOOD COUNT 13.1 K/uL (4.8-10.8)
[2016-12-03] MEDS: Levothyroxine 175 MCG TAB PO SCH (06:34)
[2016-12-03 06:44] LABS: POTASSIUM 3.4 mmol/L (3.6-5.2)
[2016-12-03 06:46] LABS: ALB/GLOB RATIO 0.5 (1.0-2.1); BILIRUBIN,TOTAL 9.6 mg/dL (0.2-1.3); TOTAL PROTEIN 6.7 g/dL (6.3-8.3)
[2016-12-03 06:47] LABS: CALCIUM 8.4 mg/dl (8.6-10.4); PHOSPHOROUS 4.4 mg/dL (2.5-4.5)
[2016-12-03 06:48] LABS: MAGNESIUM 1.7 mg/dL (1.6-2.3)
[2016-12-03] MEDS: Norepinephrine 4 MG in Dextrose 5% In Water 246 ML IV PRN (08:01)
[2016-12-03 08:58] LABS: NEUTROPHIL 80 % (50-75); TOTAL CELLS COUNTED 100
[2016-12-03 09:02] LABS: LARGE PLATELETS PRESENT
--- NOTE | 2016-12-03 09:21 | CP.PCM.PN ---
Subjective - Date & Time of Evaluation Date of Evaluation: 12/03/16 Time of Evaluation: 09:19 - Subjective Subjective: s/p dialysis 12/02 s/p blood transfusion Poorly responsive; on vent On levo 2 mcg/min; GT feeds Objective - Vital Signs/Intake and Output Vital Signs (last 24 hours): Temp Pulse Resp BP Pulse Ox 98.5 F 95 H 20 102/22 L 100 12/03/16 04:00 12/03/16 08:01 12/03/16 08:01 12/03/16 08:01 12/03/16 08:01 Intake and Output: 12/03/16 12/03/16 06:59 18:59 Intake Total 1272 100 Balance 1272 100 - Medications Medications: Current Medications Acetaminophen (Tylenol 650mg/20.3ml Solution Ud) 650 mg NG Q6 PRN PRN Reason: temp above 101 Last Admin: 12/01/16 23:17 Dose: 650 mg Albuterol/Ipratropium (Duoneb 3 Mg/0.5 Mg (3 Ml) Ud) 3 ml INH RQ6 [facility] Last Admin: 12/03/16 07:30 Dose: 3 ml Epoetin Sly (Procrit) 10,000 unit IV MWF [facility] Last Admin: 12/02/16 16:14 Dose: 10,000 unit Hydromorphone HCl (Dilaudid) 0.5 mg IVP Q6H PRN PRN Reason: Pain, severe (8-10) Last Admin: 11/22/16 15:20 Dose: 0.5 mg Norepinephrine Bitartrate 4 mg (/ Dextrose) 250 mls @ 15 mls/hr IV .[id number] PRN ; Protocol; 4 MCG/MIN PRN Reason: TITRATE PER MD ORDER Last Admin: 12/03/16 08:01 Dose: 2 mcg/min, 7.5 mls/hr Insulin Human Regular (Novolin R) 0 unit SC Q12 REKHA PRN Reason: Protocol Last Admin: 12/02/16 22:00 Dose: Not Given Lactobacillus Acidophilus (Bacid Acidophilus) 1 cap PO BID [facility] Last Admin: 12/02/16 18:10 Dose: 1 cap Levothyroxine Sodium (Synthroid) 175 mcg PO DAILY@0630 [facility] Last Admin: 12/03/16 06:34 Dose: 175 mcg Pantoprazole Sodium (Protonix Inj) 40 mg IVP DAILY [facility] Last Admin: 12/02/16 09:51 Dose: 40 mg - Labs Labs: 12/03/16 06:23 12/03/16 06:23 PT 19.5 SECONDS (9.7-12.2) H 10/28/16 08:07 INR 1.7 10/28/16 08:07 APTT 49 SECONDS (21-34) H 10/25/16 16:33 - Constitutional Appears: In Acute Distress, Chronically Ill - Head Exam Head Exam: ATRAUMATIC, NORMAL INSPECTION - Eye Exam Eye Exam: EOMI, Normal appearance - Neck Exam Neck Exam: Normal Inspection. absent: Tenderness - Respiratory Exam Respiratory Exam: Rhonchi, Respiratory Distress - Cardiovascular Exam Cardiovascular Exam: Tachycardia, +S1 - GI/Abdominal Exam GI & Abdominal Exam: Soft. absent: Tenderness - Extremities Exam Extremities Exam: Normal Inspection. absent: Tenderness - Neurological Exam Neurological Exam: Altered, Motor Sensory Deficit - Skin Skin Exam: Dry, Warm Assessment and Plan (1) Lower GI bleed Status: Acute (2) Diabetic nephropathy with proteinuria Status: Acute (3) CHF (congestive heart failure) Status: Chronic (4) ESRD (end stage renal disease) on dialysis Status: Chronic - Assessment and Plan (Free Text) Plan: dialysis MWF BP support with pressors supportive measures- prognosis grim
[2016-12-03] MEDS: Lactobacillus Acidophilus 500 MU Cap PO SCH ×2 (10:06→17:20)
[2016-12-03] MEDS: (Novolin R) Insulin Human Regular 100 units/ml vial SC SCH ×2 (10:16→22:22)
--- NOTE | 2016-12-03 10:23 | CP.CCUPN ---
CCU Subjective - Physician Review Events Since Last Encounter (Free Text): 12/03/16 10:23 Ration overall condition is unchanging. On ventilator. Received dialysis. Sacral decubiti noted. Overall prognosis is guarded. Discussed with the family. Suggested hospice treatment. CCU Objective - Vital Signs / Intake & Output Vital Signs (Last 4 hours): Vital Signs Pulse Resp BP Pulse Ox 12/03/16 08:01 95 H 20 102/22 L 100 12/03/16 07:32 86 17 91/28 L 100 12/03/16 07:17 89 15 92/22 L 100 12/03/16 07:02 89 19 93/23 L 100 12/03/16 07:00 91 H 18 100 12/03/16 06:47 94 H 21 89/27 L 100 12/03/16 06:32 92 H 18 89/27 L 100 Intake and Output (Last 8hrs): Intake & Output 12/02/16 12/03/16 12/03/16 22:59 06:59 14:59 Intake Total 570 702 100 Balance 570 702 100 Weight 110 lb 8 oz Intake: IV 282 100 Tube Feeding 420 420 Other 150 Other: # Bowel Movements 2 2 - Physical Exam Head: Positive for: Atraumatic, Normocephalic Pupils: Positive for: PERRL Extroacular Muscles: Negative for: EOMI Conjunctiva: Positive for: Icteric Mouth: Positive for: Dry. Negative for: Moist Mucous Membranes Nose (Internal): Positive for: Other (NGT in place) Neck: Positive for: Other (trach in place) Respiratory/Chest: Positive for: Wheezes, Decreased Breath Sounds, Rhonchi. Negative for: Clear to Auscultation, Respiratory Distress, Accessory Muscle Use Cardiovascular: Positive for: Normal S1, S2. Negative for: Murmurs, Tachycardic , Bradycardic Abdomen: Negative for: Distention, Normal Bowel Sounds (decreased) Rectal: Positive for: Gross Blood Upper Extremity: Positive for: Cyanosis, Other (cold fingers, ischemic 2-4 digits on left hand ). Negative for: NORMAL PULSES, Neurovascularly Intact Lower Extremity: Positive for: Edema. Negative for: NORMAL PULSES Neurological: Negative for: GCS=15, Speech Normal Skin: Positive for: Cold (bilateral hands), Other (gangrenous fingertips). Negative for: Warm Psychiatric: Positive for: Other (non-verbal ). Negative for: Alert, Oriented x 3, Normal Insight, Normal Concentration - Medications Active Medications: Active Medications Generic Name Dose Route Start Last Admin Trade Name Freq PRN Reason Stop Dose Admin Acetaminophen 650 mg 11/23/16 00:09 12/01/16 23:17 Tylenol 650mg/20.3ml Solution Ud NG 650 mg Q6 PRN Administration temp above 101 Albuterol/Ipratropium 3 ml 11/12/16 14:00 12/03/16 07:30 Duoneb 3 Mg/0.5 Mg (3 Ml) Ud INH 3 ml RQ6 REKHA Administration Epoetin Sly 10,000 unit 11/21/16 18:30 12/02/16 16:14 Procrit IV 10,000 unit MWF REKHA Administration Hydromorphone HCl 0.5 mg 11/22/16 14:57 11/22/16 15:20 Dilaudid IVP 0.5 mg Q6H PRN Administration Pain, severe (8-10) Norepinephrine Bitartrate 4 mg 250 mls @ 15 mls/hr 12/02/16 10:59 12/03/16 08 :01 / Dextrose IV 2 mcg/min .[id number] PRN 7.5 mls/hr TITRATE PER MD ORDER Administration Protocol 4 MCG/MIN Insulin Human Regular 0 unit 11/30/16 10:00 12/03/16 10:16 Novolin R SC 3 unit Q12 REKHA Administration Protocol Lactobacillus Acidophilus 1 cap 11/29/16 23:00 12/03/16 10:06 Bacid Acidophilus PO 1 cap BID REKHA Administration Levothyroxine Sodium 175 mcg 11/18/16 06:30 12/03/16 06:34 Synthroid PO 175 mcg DAILY@0630 REKHA Administration Pantoprazole Sodium 40 mg 11/05/16 11:15 12/03/16 10:06 Protonix Inj IVP 40 mg DAILY REKHA Administration - Patient Studies Lab Studies: Microbiology Studies 12/01/16 04:00 Gram Stain - Final Trachasp Sputum Culture - Preliminary Methicillin Resistant S Aureus Lab Studies 12/03/16 12/03/16 12/03/16 Range/Units 10:14 06:23 06:23 WBC 13.1 H (4.8-10.8) K/uL RBC 2.62 L (3.80-5.20) Mil/uL Hgb 8.9 L (11.0-16.0) g/dL Hct 26.4 L (34.0-47.0) % MCV 100.7 H (81.0-99.0) fL MCH 33.9 H (27.0-31.0) pg MCHC 33.6 (33.0-37.0) g/dL RDW 23.2 H (11.5-14.5) % Plt Count 151 (130-400) K/uL MPV 11.6 (7.2-11.7) fL Neut % (Auto) 83.3 H (50.0-75.0) % Lymph % (Auto) 6.7 L (20.0-40.0) % [place] % (Auto) 8.2 (0.0-10.0) % Eos % (Auto) 1.4 (0.0-4.0) % Baso % (Auto) 0.4 (0.0-2.0) % Neut # 10.9 H (1.8-7.0) K/uL Lymph # 0.9 L (1.0-4.3) K/uL [place] # 1.1 H (0.0-0.8) K/uL Eos # 0.2 (0.0-0.7) K/uL Baso # 0.1 (0.0-0.2) K/uL Neutrophils % (Manual) 80 H (50-75) % Band Neutrophils % 4 H (0-2) % Lymphocytes % (Manual) 6 L (20-40) % Monocytes % (Manual) 10 (0-10) % Toxic Granulation Present Platelet Estimate Normal (NORMAL) Large Platelets Present Polychromasia Slight Hypochromasia (manual) Slight Poikilocytosis (manual Slight Anisocytosis (manual) Slight Microcytosis (manual) Slight Macrocytosis (manual) Slight Target Cells Slight Tear Drop Cells Slight Sodium 133 (132-148) mmol/L Potassium 3.4 L (3.6-5.2) mmol/L Chloride 96 L (98-107) mmol/L Carbon Dioxide 23 (22-30) mmol/L Anion Gap 17 (10-20) BUN 37 H (7-17) mg/dL Creatinine 1.6 H (0.7-1.2) MG/DL Est GFR ( Amer) 38 Est GFR (Non-Af Amer) 32 POC Glucose (mg/dL) 275 H (65-110) mg/dL Random Glucose 273 H (65-105) mg/dL Calcium 8.4 L (8.6-10.4) mg/dl Phosphorus 4.4 (2.5-4.5) mg/dL Magnesium 1.7 (1.6-2.3) mg/dL Total Bilirubin 9.6 H (0.2-1.3) mg/dL AST 78 H D (14-36) U/L ALT 45 (9-52) U/L Alkaline Phosphatase 420 H (38-126) U/L Total Protein 6.7 (6.3-8.3) g/dL Albumin 2.2 L (3.5-5.0) g/dL Globulin 4.5 H (2.2-3.9) gm/dL Albumin/Globulin Ratio 0.5 L (1.0-2.1) Blood Type Antibody Screen 12/02/16 12/02/16 12/02/16 Range/Units 21:47 11:26 09:21 WBC (4.8-10.8) K/uL RBC (3.80-5.20) Mil/uL Hgb (11.0-16.0) g/dL Hct (34.0-47.0) % MCV (81.0-99.0) fL MCH (27.0-31.0) pg MCHC (33.0-37.0) g/dL RDW (11.5-14.5) % Plt Count (130-400) K/uL MPV (7.2-11.7) fL Neut % (Auto) (50.0-75.0) % Lymph % (Auto) (20.0-40.0) % [place] % (Auto) (0.0-10.0) % Eos % (Auto) (0.0-4.0) % Baso % (Auto) (0.0-2.0) % Neut # (1.8-7.0) K/uL Lymph # (1.0-4.3) K/uL [place] # (0.0-0.8) K/uL Eos # (0.0-0.7) K/uL Baso # (0.0-0.2) K/uL Neutrophils % (Manual) (50-75) % Band Neutrophils % (0-2) % Lymphocytes % (Manual) (20-40) % Monocytes % (Manual) (0-10) % Toxic Granulation Platelet Estimate (NORMAL) Large Platelets Polychromasia Hypochromasia (manual) Poikilocytosis (manual Anisocytosis (manual) Microcytosis (manual) Macrocytosis (manual) Target Cells Tear Drop Cells Sodium (132-148) mmol/L Potassium (3.6-5.2) mmol/L Chloride (98-107) mmol/L Carbon Dioxide (22-30) mmol/L Anion Gap (10-20) BUN (7-17) mg/dL Creatinine (0.7-1.2) MG/DL Est GFR ( Amer) Est GFR (Non-Af Amer) POC Glucose (mg/dL) 280 H 244 H (65-110) mg/dL Random Glucose (65-105) mg/dL Calcium (8.6-10.4) mg/dl Phosphorus (2.5-4.5) mg/dL Magnesium (1.6-2.3) mg/dL Total Bilirubin (0.2-1.3) mg/dL AST (14-36) U/L ALT (9-52) U/L Alkaline Phosphatase (38-126) U/L Total Protein (6.3-8.3) g/dL Albumin (3.5-5.0) g/dL Globulin (2.2-3.9) gm/dL Albumin/Globulin Ratio (1.0-2.1) Blood Type B POSITIVE Antibody Screen Negative Laboratory Results - last 24 hr 12/02/16 12/02/16 12/02/16 09:21 11:26 21:47 WBC RBC Hgb Hct MCV MCH MCHC RDW Plt Count MPV Neut % (Auto) Lymph % (Auto) [place] % (Auto) Eos % (Auto) Baso % (Auto) Neut # Lymph # [place] # Eos # Baso # Neutrophils % (Manual) Band Neutrophils % Lymphocytes % (Manual) Monocytes % (Manual) Toxic Granulation Platelet Estimate Large Platelets Polychromasia Hypochromasia (manual) Poikilocytosis (manual Anisocytosis (manual) Microcytosis (manual) Macrocytosis (manual) Target Cells Tear Drop Cells Sodium Potassium Chloride Carbon Dioxide Anion Gap BUN Creatinine Est GFR ( Amer) Est GFR (Non-Af Amer) POC Glucose (mg/dL) 244 H 280 H Random Glucose Calcium Phosphorus Magnesium Total Bilirubin AST ALT Alkaline Phosphatase Total Protein Albumin Globulin Albumin/Globulin Ratio Blood Type B POSITIVE Antibody Screen Negative 12/03/16 12/03/16 12/03/16 06:23 06:23 10:14 WBC 13.1 H RBC 2.62 L Hgb 8.9 L Hct 26.4 L MCV 100.7 H MCH 33.9 H MCHC 33.6 RDW 23.2 H Plt Count 151 MPV 11.6 Neut % (Auto) 83.3 H Lymph % (Auto) 6.7 L [place] % (Auto) 8.2 Eos % (Auto) 1.4 Baso % (Auto) 0.4 Neut # 10.9 H Lymph # 0.9 L [place] # 1.1 H Eos # 0.2 Baso # 0.1 Neutrophils % (Manual) 80 H Band Neutrophils % 4 H Lymphocytes % (Manual) 6 L Monocytes % (Manual) 10 Toxic Granulation Present Platelet Estimate Normal Large Platelets Present Polychromasia Slight Hypochromasia (manual) Slight Poikilocytosis (manual Slight Anisocytosis (manual) Slight Microcytosis (manual) Slight Macrocytosis (manual) Slight Target Cells Slight Tear Drop Cells Slight Sodium 133 Potassium 3.4 L Chloride 96 L Carbon Dioxide 23 Anion Gap 17 BUN 37 H Creatinine 1.6 H Est GFR ( Amer) 38 Est GFR (Non-Af Amer) 32 POC Glucose (mg/dL) 275 H Random Glucose 273 H Calcium 8.4 L Phosphorus 4.4 Magnesium 1.7 Total Bilirubin 9.6 H AST 78 H D ALT 45 Alkaline Phosphatase 420 H Total Protein 6.7 Albumin 2.2 L Globulin 4.5 H Albumin/Globulin Ratio 0.5 L Blood Type Antibody Screen Fingerstick Blood Sugar Results: 275 Critical Care Progress Note - Nutrition Nutrition: Nutrition Category Date Time Status NPO Diet [DIET] Diets 11/17/16 Breakfast Active
[2016-12-04] MEDS: Albuterol-Ipratrop 3 mg / 0.5 (3 ml) UD INH SCH ×4 (01:11→19:39)
[2016-12-04] MEDS: Levothyroxine 175 MCG TAB PO SCH (06:15)
[2016-12-04 06:45] LABS: BASO # 0.1 K/uL (0.0-0.2); BASO % 0.7 % (0.0-2.0); EOS # 0.1 K/uL (0.0-0.7); HEMATOCRIT 22.9 % (34.0-47.0); LYMPH # 0.8 K/uL (1.0-4.3); LYMPH % 5.5 % (20.0-40.0); MEAN CELL VOLUME 101.3 fL (81.0-99.0); MEAN CORPUSCULAR HGB CONC 33.5 g/dL (33.0-37.0); MEAN PLATELET VOLUME 11.8 fL (7.2-11.7); MONO # 1.3 K/uL (0.0-0.8); MONO % 9.4 % (0.0-10.0); NRBC % 0.1 % (0.0-2.0); PLATELET COUNT 167 K/uL (130-400); RED CELL DISTRIBUTION WIDTH 28.3 % (11.5-14.5); WHITE BLOOD COUNT 14.1 K/uL (4.8-10.8)
[2016-12-04 06:57] LABS: ALB/GLOB RATIO 0.5 (1.0-2.1); BILIRUBIN,TOTAL 9.1 mg/dL (0.2-1.3); CALCIUM 8.4 mg/dl (8.6-10.4); MAGNESIUM 1.9 mg/dL (1.6-2.3); PHOSPHOROUS 4.9 mg/dL (2.5-4.5); POTASSIUM 3.5 mmol/L (3.6-5.2)
[2016-12-04] MEDS: Norepinephrine 4 MG in Dextrose 5% In Water 246 ML IV PRN (09:05)
[2016-12-04] MEDS: Lactobacillus Acidophilus 500 MU Cap PO SCH ×2 (09:47→18:13)
[2016-12-04] MEDS: (Novolin R) Insulin Human Regular 100 units/ml vial SC SCH (09:49)
[2016-12-04 09:55] LABS: NEUTROPHIL 71 % (50-75); TOTAL CELLS COUNTED 100
[2016-12-04 09:56] LABS: GIANT PLATELETS PRESENT; LARGE PLATELETS PRESENT
--- NOTE | 2016-12-04 22:24 | CP.CCUPN ---
CCU Subjective - Physician Review Events Since Last Encounter (Free Text): 12/04/16 22:24 Condition remains same. We'll be getting dialysis in the morning. Tolerating the CPAP. We'll follow the patient CCU Objective - Vital Signs / Intake & Output Vital Signs (Last 4 hours): Vital Signs Temp Pulse Resp BP Pulse Ox 12/04/16 22:00 79 25 H 100 12/04/16 21:34 88 22 81/33 L 100 12/04/16 21:00 86 21 100 12/04/16 20:34 87 20 86/32 L 100 12/04/16 20:00 98.9 F 79 14 100 12/04/16 19:37 84 24 82/12 L 100 12/04/16 18:34 86 36 H 77/31 L 100 Intake and Output (Last 8hrs): Intake & Output 12/04/16 12/04/16 12/04/16 06:59 14:59 22:59 Intake Total 340.0 590.0 297.5 Balance 340.0 590.0 297.5 Weight 110 lb 6 oz Intake: IV 250 Intake, IV Amount 60.0 60.0 52.5 Right PICC 60.0 60.0 52.5 Tube Feeding 280 280 245 Other: # Bowel Movements 1 1 0 - Physical Exam Head: Positive for: Atraumatic, Normocephalic Pupils: Positive for: PERRL Extroacular Muscles: Negative for: EOMI Conjunctiva: Positive for: Icteric Mouth: Positive for: Dry. Negative for: Moist Mucous Membranes Nose (Internal): Positive for: Other (NGT in place) Neck: Positive for: Other (trach in place) Respiratory/Chest: Positive for: Wheezes, Decreased Breath Sounds, Rhonchi. Negative for: Clear to Auscultation, Respiratory Distress, Accessory Muscle Use Cardiovascular: Positive for: Normal S1, S2. Negative for: Murmurs, Tachycardic , Bradycardic Abdomen: Negative for: Distention, Normal Bowel Sounds (decreased) Rectal: Positive for: Gross Blood Upper Extremity: Positive for: Cyanosis, Other (cold fingers, ischemic 2-4 digits on left hand ). Negative for: NORMAL PULSES, Neurovascularly Intact Lower Extremity: Positive for: Edema. Negative for: NORMAL PULSES Neurological: Negative for: GCS=15, Speech Normal Skin: Positive for: Cold (bilateral hands), Other (gangrenous fingertips). Negative for: Warm Psychiatric: Positive for: Other (non-verbal ). Negative for: Alert, Oriented x 3, Normal Insight, Normal Concentration - Medications Active Medications: Active Medications Generic Name Dose Route Start Last Admin Trade Name Freq PRN Reason Stop Dose Admin Acetaminophen 650 mg 11/23/16 00:09 12/01/16 23:17 Tylenol 650mg/20.3ml Solution Ud NG 650 mg Q6 PRN Administration temp above 101 Albuterol/Ipratropium 3 ml 11/12/16 14:00 12/04/16 19:39 Duoneb 3 Mg/0.5 Mg (3 Ml) Ud INH 3 ml RQ6 REKHA Administration Epoetin Sly 10,000 unit 11/21/16 18:30 12/02/16 16:14 Procrit IV 10,000 unit MWF REKHA Administration Hydromorphone HCl 0.5 mg 11/22/16 14:57 11/22/16 15:20 Dilaudid IVP 0.5 mg Q6H PRN Administration Pain, severe (8-10) Norepinephrine Bitartrate 4 mg 250 mls @ 15 mls/hr 12/02/16 10:59 12/04/16 09 :05 / Dextrose IV 2 mcg/min .[id number] PRN 7.5 mls/hr TITRATE PER MD ORDER Administration Protocol 4 MCG/MIN Lactobacillus Acidophilus 1 cap 11/29/16 23:00 12/04/16 18:13 Bacid Acidophilus PO 1 cap BID REKHA Administration Levothyroxine Sodium 175 mcg 11/18/16 06:30 12/04/16 06:15 Synthroid PO 175 mcg DAILY@0630 REKHA Administration Pantoprazole Sodium 40 mg 11/05/16 11:15 12/04/16 09:44 Protonix Inj IVP 40 mg DAILY REKHA Administration - Patient Studies Lab Studies: Lab Studies 12/04/16 12/04/16 12/04/16 Range/Units 09:17 06:32 06:32 WBC 14.1 H (4.8-10.8) K/uL RBC 2.26 L (3.80-5.20) Mil/uL Hgb 7.7 L (11.0-16.0) g/dL Hct 22.9 L (34.0-47.0) % MCV 101.3 H (81.0-99.0) fL MCH 34.0 H (27.0-31.0) pg MCHC 33.5 (33.0-37.0) g/dL RDW 28.3 H (11.5-14.5) % Plt Count 167 (130-400) K/uL MPV 11.8 H (7.2-11.7) fL Neut % (Auto) 83.4 H (50.0-75.0) % Lymph % (Auto) 5.5 L (20.0-40.0) % [place] % (Auto) 9.4 (0.0-10.0) % Eos % (Auto) 1.0 (0.0-4.0) % Baso % (Auto) 0.7 (0.0-2.0) % Neut # 11.8 H (1.8-7.0) K/uL Lymph # 0.8 L (1.0-4.3) K/uL [place] # 1.3 H (0.0-0.8) K/uL Eos # 0.1 (0.0-0.7) K/uL Baso # 0.1 (0.0-0.2) K/uL Neutrophils % (Manual) 71 (50-75) % Band Neutrophils % 14 H* (0-2) % Lymphocytes % (Manual) 6 L (20-40) % Monocytes % (Manual) 9 (0-10) % Toxic Granulation Present Platelet Estimate Normal (NORMAL) Large Platelets Present Giant Platelets Present Polychromasia Slight Hypochromasia (manual) Slight Anisocytosis (manual) Marked Target Cells Slight Sodium 130 L (132-148) mmol/L Potassium 3.5 L (3.6-5.2) mmol/L Chloride 94 L (98-107) mmol/L Carbon Dioxide 18 L (22-30) mmol/L Anion Gap 22 H (10-20) BUN 47 H (7-17) mg/dL Creatinine 1.9 H (0.7-1.2) MG/DL Est GFR ( Amer) 31 Est GFR (Non-Af Amer) 26 POC Glucose (mg/dL) 284 H (65-110) mg/dL Random Glucose 246 H (65-105) mg/dL Calcium 8.4 L (8.6-10.4) mg/dl Phosphorus 4.9 H (2.5-4.5) mg/dL Magnesium 1.9 (1.6-2.3) mg/dL Total Bilirubin 9.1 H (0.2-1.3) mg/dL AST 62 H D (14-36) U/L ALT 38 (9-52) U/L Alkaline Phosphatase 378 H (38-126) U/L Total Protein 6.0 L (6.3-8.3) g/dL Albumin 2.1 L (3.5-5.0) g/dL Globulin 3.9 (2.2-3.9) gm/dL Albumin/Globulin Ratio 0.5 L (1.0-2.1) Laboratory Results - last 24 hr 12/04/16 12/04/16 12/04/16 06:32 06:32 09:17 WBC 14.1 H RBC 2.26 L Hgb 7.7 L Hct 22.9 L MCV 101.3 H MCH 34.0 H MCHC 33.5 RDW 28.3 H Plt Count 167 MPV 11.8 H Neut % (Auto) 83.4 H Lymph % (Auto) 5.5 L [place] % (Auto) 9.4 Eos % (Auto) 1.0 Baso % (Auto) 0.7 Neut # 11.8 H Lymph # 0.8 L [place] # 1.3 H Eos # 0.1 Baso # 0.1 Neutrophils % (Manual) 71 Band Neutrophils % 14 H* Lymphocytes % (Manual) 6 L Monocytes % (Manual) 9 Toxic Granulation Present Platelet Estimate Normal Large Platelets Present Giant Platelets Present Polychromasia Slight Hypochromasia (manual) Slight Anisocytosis (manual) Marked Target Cells Slight Sodium 130 L Potassium 3.5 L Chloride 94 L Carbon Dioxide 18 L Anion Gap 22 H BUN 47 H Creatinine 1.9 H Est GFR ( Amer) 31 Est GFR (Non-Af Amer) 26 POC Glucose (mg/dL) 284 H Random Glucose 246 H Calcium 8.4 L Phosphorus 4.9 H Magnesium 1.9 Total Bilirubin 9.1 H AST 62 H D ALT 38 Alkaline Phosphatase 378 H Total Protein 6.0 L Albumin 2.1 L Globulin 3.9 Albumin/Globulin Ratio 0.5 L Fingerstick Blood Sugar Results: 284 Critical Care Progress Note - Nutrition Nutrition: Nutrition Category Date Time Status NPO Diet [DIET] Diets 11/17/16 Breakfast Active
[2016-12-05] MEDS: Albuterol-Ipratrop 3 mg / 0.5 (3 ml) UD INH SCH ×4 (01:40→19:40)
[2016-12-05] MEDS: Norepinephrine 4 MG in Dextrose 5% In Water 246 ML IV PRN ×3 (05:20→19:48)
[2016-12-05] MEDS: Levothyroxine 175 MCG TAB PO SCH (06:25)
[2016-12-05] MEDS: Lactobacillus Acidophilus 500 MU Cap PO SCH ×2 (10:26→17:25)
--- NOTE | 2016-12-05 11:01 | CP.PCM.PN ---
Subjective - Date & Time of Evaluation Date of Evaluation: 12/05/16 Time of Evaluation: 10:59 - Subjective Subjective: Remains same Not responsive Levo increased to 5mcg/min K low- will use 4Kdialysis bath no other changes for HD today Objective - Vital Signs/Intake and Output Vital Signs (last 24 hours): Temp Pulse Resp BP Pulse Ox 98.8 F 73 26 H 82/27 L 100 12/05/16 08:00 12/05/16 08:34 12/05/16 08:34 12/05/16 08:34 12/05/16 08:34 Intake and Output: 12/05/16 12/05/16 06:59 18:59 Intake Total 804.8 185.7 Balance 804.8 185.7 - Medications Medications: Current Medications Acetaminophen (Tylenol 650mg/20.3ml Solution Ud) 650 mg NG Q6 PRN PRN Reason: temp above 101 Last Admin: 12/01/16 23:17 Dose: 650 mg Albuterol/Ipratropium (Duoneb 3 Mg/0.5 Mg (3 Ml) Ud) 3 ml INH RQ6 [facility] Last Admin: 12/05/16 07:39 Dose: 3 ml Epoetin Sly (Procrit) 10,000 unit IV MWF [facility] Last Admin: 12/02/16 16:14 Dose: 10,000 unit Norepinephrine Bitartrate 4 mg (/ Dextrose) 250 mls @ 15 mls/hr IV .[id number] PRN ; Protocol; 4 MCG/MIN PRN Reason: TITRATE PER MD ORDER Last Titration: 12/05/16 07:00 Dose: 5 mcg/min, 18.75 mls/hr Lactobacillus Acidophilus (Bacid Acidophilus) 1 cap PO BID [facility] Last Admin: 12/05/16 10:26 Dose: 1 cap Levothyroxine Sodium (Synthroid) 175 mcg PO DAILY@0630 [facility] Last Admin: 12/05/16 06:25 Dose: 175 mcg Pantoprazole Sodium (Protonix Inj) 40 mg IVP DAILY [facility] Last Admin: 12/05/16 10:25 Dose: 40 mg - Labs Labs: 12/04/16 06:32 12/04/16 06:32 PT 19.5 SECONDS (9.7-12.2) H 10/28/16 08:07 INR 1.7 10/28/16 08:07 APTT 49 SECONDS (21-34) H 10/25/16 16:33 - Constitutional Appears: In Acute Distress, Chronically Ill - Head Exam Head Exam: ATRAUMATIC, NORMAL INSPECTION - Neck Exam Neck Exam: Normal Inspection. absent: Tenderness - Respiratory Exam Respiratory Exam: Rhonchi, Respiratory Distress - Cardiovascular Exam Cardiovascular Exam: REGULAR RHYTHM, +S1 - GI/Abdominal Exam GI & Abdominal Exam: Soft. absent: Tenderness - Extremities Exam Extremities Exam: Normal Inspection. absent: Pedal Edema - Neurological Exam Neurological Exam: Altered, Motor Sensory Deficit - Skin Skin Exam: Dry, Warm Assessment and Plan (1) Lower GI bleed Status: Acute (2) Diabetic nephropathy with proteinuria Status: Acute (3) CHF (congestive heart failure) Status: Chronic (4) ESRD (end stage renal disease) on dialysis Status: Chronic - Assessment and Plan (Free Text) Plan: Dialysis MWF Supportive care Poor Px
[2016-12-05] MEDS ORDERED: Albumin Human 5% (12.5 gm/250 ml) IV ONE (12:53)
[2016-12-05] MEDS ORDERED: Sodium Chloride 0.9% 500 ML IV ONE (12:55)
[2016-12-05] MEDS ORDERED: Albumin Human 25% (12.5 gm/50 ml) IV ONE ×2 (13:00→15:53)
[2016-12-05] MEDS: MethylPREDNISolone 40 mg Vial IV SCH (13:27)
--- NOTE | 2016-12-05 13:29 | CP.CCUPN ---
CCU Subjective - Physician Review Subjective (Free Text): Patient was seen and examined at bedside in the morning. Patient is non- verbal. Patient has poor prognosis. 12/05/16 13:19 CCU Objective - Vital Signs / Intake & Output Vital Signs (Last 4 hours): Vital Signs Pulse Resp BP Pulse Ox 12/05/16 12:46 78 21 61/15 L 100 12/05/16 12:26 77 18 78/15 L 100 12/05/16 12:11 75 19 69/24 L 99 12/05/16 11:34 72 19 62/26 L 100 12/05/16 10:34 77 25 H 83/30 L 100 12/05/16 09:34 74 38 H 81/31 L 100 Intake and Output (Last 8hrs): Intake & Output 12/04/16 12/05/16 12/05/16 22:59 06:59 14:59 Intake Total 340.0 634.8 487.3 Balance 340.0 634.8 487.3 Weight 109 lb 3.2 oz Intake: IV 250 124 Intake, IV Amount 60.0 104.8 88.3 Right PICC 60.0 104.8 88.3 Tube Feeding 280 280 175 Other 100 Other: # Bowel Movements 1 0 1 - Physical Exam Head: Positive for: Atraumatic, Normocephalic Extroacular Muscles: Negative for: EOMI Mouth: Positive for: Dry. Negative for: Moist Mucous Membranes Nose (Internal): Positive for: Other (NGT in place) Neck: Positive for: Other (trach in place) Respiratory/Chest: Positive for: Wheezes, Decreased Breath Sounds, Rhonchi. Negative for: Clear to Auscultation, Respiratory Distress, Accessory Muscle Use Cardiovascular: Positive for: Normal S1, S2. Negative for: Murmurs, Tachycardic , Bradycardic Abdomen: Negative for: Distention, Normal Bowel Sounds (decreased) Upper Extremity: Positive for: Cyanosis, Other (cold fingers, ischemic 2-4 digits on left hand ). Negative for: NORMAL PULSES, Neurovascularly Intact Lower Extremity: Positive for: Edema. Negative for: NORMAL PULSES Neurological: Negative for: GCS=15, Speech Normal Skin: Positive for: Cold (bilateral hands), Other (gangrenous fingertips). Negative for: Warm Psychiatric: Positive for: Other (non-verbal ). Negative for: Alert, Oriented x 3, Normal Insight, Normal Concentration - Medications Active Medications: Active Medications Generic Name Dose Route Start Last Admin Trade Name Freq PRN Reason Stop Dose Admin Acetaminophen 650 mg 11/23/16 00:09 12/01/16 23:17 Tylenol 650mg/20.3ml Solution Ud NG 650 mg Q6 PRN Administration temp above 101 Albuterol/Ipratropium 3 ml 12/05/16 02:00 12/05/16 07:39 Duoneb 3 Mg/0.5 Mg (3 Ml) Ud INH 3 ml RQ6 REKHA Administration Epoetin Sly 10,000 unit 11/21/16 18:30 12/02/16 16:14 Procrit IV 10,000 unit MWF REKHA Administration Norepinephrine Bitartrate 4 mg 250 mls @ 15 mls/hr 12/02/16 10:59 12/05/16 12 :00 / Dextrose IV 6 mcg/min .[id number] PRN 22.5 mls/hr TITRATE PER MD ORDER Titration Protocol 4 MCG/MIN Sodium Chloride 500 mls @ 1,000 mls/hr 12/05/16 12:55 12/05/16 13:04 Sodium Chloride 0.9% IV 12/05/16 13:24 1,000 mls/hr .Q30M ONE Administration Lactobacillus Acidophilus 1 cap 11/29/16 23:00 12/05/16 10:26 Bacid Acidophilus PO 1 cap BID REKHA Administration Levothyroxine Sodium 175 mcg 11/18/16 06:30 12/05/16 06:25 Synthroid PO 175 mcg DAILY@0630 REKHA Administration Methylprednisolone 40 mg 12/05/16 13:15 Solu-Medrol IV DAILY REKHA Midodrine 5 mg 12/05/16 14:00 Proamatine PO TID REKHA Pantoprazole Sodium 40 mg 11/05/16 11:15 12/05/16 10:25 Protonix Inj IVP 40 mg DAILY REKHA Administration - Patient Studies Lab Studies: Lab Studies 12/05/16 12/04/16 Range/Units 10:37 23:50 POC Glucose (mg/dL) 296 H 246 H (65-110) mg/dL Laboratory Results - last 24 hr 12/04/16 12/05/16 23:50 10:37 POC Glucose (mg/dL) 246 H 296 H Fingerstick Blood Sugar Results: 284 Review of Systems - Review of Systems Systems not reviewed;Unavailable: Other (non-verbal) Critical Care Progress Note - Nutrition Nutrition: Nutrition Category Date Time Status NPO Diet [DIET] Diets 11/17/16 Breakfast Active Assessment/Plan - Assessment and Plan (Free Text) Assessment: 76 female patient admitted for GI bleed; s/p flexible sigmoidoscopy and multiple transfusions. Patient was transferred from the medical floor to the ICU because patient was noted to have a hypotensive state, bradycardia and mucus secretions. Patient is now vented on trach. Patient's antibiotics were stopped. Patient is hypotensive and on IV fluids and pressors. Continue to monitor. Neuro: Comatose, in persistent vegetative state. Pulm: Chronic respiratory failure, trached on vent. - solumedrol 40 CV: Septic shock - hypotensive--> IV NS bolus + midodrine + albumin Hem: Anemia of chronic disease and critical illness. - Anemia improved--> monitor H/H Renal: End-stage renal disease on hemodialysis. - received dialysis 12/03/16 Endo: Diabetes mellitus type 2, hypothyroidism and continue levothyroxine. GI: Nothing by mouth. tube feeds - Bacid ID: chronically ill, all antibiotics stopped Skin: - Sacral ulcer - Wound care Q12, ointment applied DVT proph - scd's, holding anticoagulation with recent GI bleed. GI proph - Protonix IV dolan for strict I/O's during acute illness Code status - DNR
[2016-12-06] MEDS: Albuterol-Ipratrop 3 mg / 0.5 (3 ml) UD INH SCH ×4 (01:21→19:38)
[2016-12-06] MEDS: Norepinephrine 4 MG in Dextrose 5% In Water 246 ML IV PRN ×4 (03:24→18:54)
[2016-12-06] MEDS: Levothyroxine 175 MCG TAB PO SCH (05:39)
[2016-12-06 06:52] LABS: BASO % 0.2 % (0.0-2.0); EOS # 0.2 K/uL (0.0-0.7); LYMPH # 0.5 K/uL (1.0-4.3); LYMPH % 2.6 % (20.0-40.0); MEAN CELL VOLUME 105.5 fL (81.0-99.0); MEAN CORPUSCULAR HEMOGLOBIN 33.8 pg (27.0-31.0); MEAN PLATELET VOLUME 12.1 fL (7.2-11.7); MONO % 5.4 % (0.0-10.0); NRBC % 0.1 % (0.0-2.0); PLATELET COUNT 191 K/uL (130-400); RED CELL DISTRIBUTION WIDTH 28.5 % (11.5-14.5); WHITE BLOOD COUNT 19.4 K/uL (4.8-10.8)
[2016-12-06 07:58] LABS: ALB/GLOB RATIO 0.6 (1.0-2.1); CALCIUM 8.8 mg/dl (8.6-10.4); PHOSPHOROUS 5.7 mg/dL (2.5-4.5); POTASSIUM 4.4 mmol/L (3.6-5.2); TOTAL PROTEIN 6.6 g/dL (6.3-8.3)
[2016-12-06 08:46] LABS: NEUTROPHIL 76 % (50-75); TOTAL CELLS COUNTED 100
[2016-12-06 08:47] LABS: LARGE PLATELETS PRESENT
[2016-12-06] MEDS: MethylPREDNISolone 40 mg Vial IV SCH (09:46)
[2016-12-06] MEDS: Lactobacillus Acidophilus 500 MU Cap PO SCH ×2 (09:46→18:55)
[2016-12-06] MEDS: Epoetin Alfa 10,000 unit/ml Dialysis IV SCH (09:47)
--- NOTE | 2016-12-06 13:06 | CP.PCM.PN ---
Subjective - Date & Time of Evaluation Date of Evaluation: 12/06/16 Time of Evaluation: 13:03 - Subjective Subjective: seen and examine profuse gi bleed low bp daughter at bedside Objective - Vital Signs/Intake and Output Vital Signs (last 24 hours): Temp Pulse Resp BP Pulse Ox 98.5 F 90 30 H 80/21 L 100 12/06/16 08:00 12/06/16 12:10 12/06/16 12:10 12/06/16 12:10 12/06/16 12:10 Intake and Output: 12/06/16 12/06/16 06:59 18:59 Intake Total 1665.1 820.7 Balance 1665.1 820.7 - Medications Medications: Current Medications Acetaminophen (Tylenol 650mg/20.3ml Solution Ud) 650 mg NG Q6 PRN PRN Reason: temp above 101 Last Admin: 12/01/16 23:17 Dose: 650 mg Albuterol/Ipratropium (Duoneb 3 Mg/0.5 Mg (3 Ml) Ud) 3 ml INH RQ6 [facility] Last Admin: 12/06/16 07:34 Dose: 3 ml Epoetin Sly (Procrit) 10,000 unit IV MWF [facility] Last Admin: 12/06/16 09:47 Dose: 10,000 unit Norepinephrine Bitartrate 4 mg (/ Dextrose) 250 mls @ 15 mls/hr IV .[id number] PRN ; Protocol; 4 MCG/MIN PRN Reason: TITRATE PER MD ORDER Last Admin: 12/06/16 11:30 Dose: 15.01 mcg/min, 56.3 mls/hr Lactobacillus Acidophilus (Bacid Acidophilus) 1 cap PO BID [facility] Last Admin: 12/06/16 09:46 Dose: 1 cap Levothyroxine Sodium (Synthroid) 175 mcg PO DAILY@0630 [facility] Last Admin: 12/06/16 05:39 Dose: 175 mcg Methylprednisolone (Solu-Medrol) 40 mg IV DAILY [facility] Last Admin: 12/06/16 09:46 Dose: 40 mg Midodrine (Proamatine) 5 mg PO TID [facility] Last Admin: 12/06/16 09:47 Dose: 5 mg Pantoprazole Sodium (Protonix Inj) 40 mg IVP DAILY [facility] Last Admin: 12/06/16 09:43 Dose: 40 mg - Labs Labs: 12/06/16 06:35 12/06/16 06:31 PT 19.5 SECONDS (9.7-12.2) H 10/28/16 08:07 INR 1.7 10/28/16 08:07 APTT 49 SECONDS (21-34) H 10/25/16 16:33 - Constitutional Appears: Cachectic, Chronically Ill - Head Exam Head Exam: NORMAL INSPECTION Additional comments: vent - ENT Exam ENT Exam: Mucous Membranes Dry - Neck Exam Neck Exam: Normal Inspection - Respiratory Exam Additional comments: mechanical vent sounds - Cardiovascular Exam Cardiovascular Exam: Tachycardia, REGULAR RHYTHM - GI/Abdominal Exam GI & Abdominal Exam: Soft, Diminished Bowel Sounds - Extremities Exam Additional comments: necrotic toes and fingers - Neurological Exam Additional comments: vegetative state Assessment and Plan (1) Lower GI bleed Status: Acute (2) Diabetes mellitus Status: Acute (3) CHF (congestive heart failure) Status: Chronic (4) ESRD (end stage renal disease) on dialysis Status: Chronic - Assessment and Plan (Free Text) Assessment: very poor prognosis assess for hd tomorrow if stable
--- NOTE | 2016-12-06 14:19 | CP.CCUPN ---
<NeeldenaMonica cokerLalita - Last Filed: 12/06/16 15:20> CCU Subjective - Physician Review Subjective (Free Text): Patient was seen and examined at bedside in the morning. Patient is non- verbal. Patient has poor prognosis. 12/06/16 14:05 CCU Objective - Vital Signs / Intake & Output Vital Signs (Last 4 hours): Vital Signs Pulse Resp BP Pulse Ox 12/06/16 12:10 90 30 H 80/21 L 100 12/06/16 11:30 83 30 H 69/15 L 100 12/06/16 11:29 81 22 69/15 L 100 12/06/16 11:21 80 32 H 100 12/06/16 10:21 77 27 H 73/16 L 100 12/06/16 10:08 79 21 82/16 L 100 Intake and Output (Last 8hrs): Intake & Output 12/05/16 12/06/16 12/06/16 22:59 06:59 14:59 Intake Total 1245.1 995 960.7 Balance 1245.1 995 960.7 Intake: IV 435 180 390 Intake, IV Amount 480.1 210 245.7 Right PICC 480.1 210 245.7 Tube Feeding 280 280 175 Blood Product 0 325 Red Blood Cells Cpd As1 0 325 Lr Unit [id number] Other 50 150 Other: # Bowel Movements 1 1 - Physical Exam Head: Positive for: Atraumatic, Normocephalic Mouth: Positive for: Dry. Negative for: Moist Mucous Membranes Nose (Internal): Positive for: Other (NGT in place) Neck: Positive for: Other (trach in place) Respiratory/Chest: Positive for: Wheezes, Decreased Breath Sounds, Rhonchi. Negative for: Clear to Auscultation Cardiovascular: Positive for: Normal S1, S2. Negative for: Murmurs, Tachycardic , Bradycardic Abdomen: Negative for: Distention, Normal Bowel Sounds (decreased) Upper Extremity: Positive for: Cyanosis, Other (cold fingers, ischemic 2-4 digits on left hand ). Negative for: NORMAL PULSES, Neurovascularly Intact Lower Extremity: Positive for: Edema. Negative for: NORMAL PULSES Neurological: Negative for: GCS=15, Speech Normal Skin: Positive for: Cold (bilateral hands), Other (gangrenous fingertips). Negative for: Warm Psychiatric: Positive for: Other (non-verbal ). Negative for: Alert, Oriented x 3, Normal Insight, Normal Concentration - Medications Active Medications: Active Medications Generic Name Dose Route Start Last Admin Trade Name Freq PRN Reason Stop Dose Admin Acetaminophen 650 mg 11/23/16 00:09 12/01/16 23:17 Tylenol 650mg/20.3ml Solution Ud NG 650 mg Q6 PRN Administration temp above 101 Albuterol/Ipratropium 3 ml 12/05/16 02:00 12/06/16 13:25 Duoneb 3 Mg/0.5 Mg (3 Ml) Ud INH 3 ml RQ6 [facility] Administration Epoetin Sly 10,000 unit 11/21/16 18:30 12/06/16 09:47 Procrit IV 10,000 unit MWF [facility] Administration Norepinephrine Bitartrate 4 mg 250 mls @ 15 mls/hr 12/02/16 10:59 12/06/16 13 :59 / Dextrose IV 20 mcg/min .[id number] PRN 75 mls/hr TITRATE PER MD ORDER Titration Protocol 4 MCG/MIN Lactobacillus Acidophilus 1 cap 11/29/16 23:00 12/06/16 09:46 Bacid Acidophilus PO 1 cap BID [facility] Administration Levothyroxine Sodium 175 mcg 11/18/16 06:30 12/06/16 05:39 Synthroid PO 175 mcg DAILY@0630 [facility] Administration Methylprednisolone 40 mg 12/05/16 13:15 12/06/16 09:46 Solu-Medrol IV 40 mg DAILY [facility] Administration Midodrine 5 mg 12/05/16 14:00 12/06/16 09:47 Proamatine PO 5 mg TID [facility] Administration Pantoprazole Sodium 40 mg 11/05/16 11:15 12/06/16 09:43 Protonix Inj IVP 40 mg DAILY [facility] Administration - Patient Studies Lab Studies: Lab Studies 12/06/16 12/06/16 12/06/16 Range/Units 11:38 06:35 06:31 WBC 19.4 H (4.8-10.8) K/uL RBC 2.46 L (3.80-5.20) Mil/uL Hgb 8.3 L (11.0-16.0) g/dL Hct 26.0 L (34.0-47.0) % MCV 105.5 H D (81.0-99.0) fL MCH 33.8 H (27.0-31.0) pg MCHC 32.0 L (33.0-37.0) g/dL RDW 28.5 H (11.5-14.5) % Plt Count 191 (130-400) K/uL MPV 12.1 H (7.2-11.7) fL Neut % (Auto) 90.8 H (50.0-75.0) % Lymph % (Auto) 2.6 L (20.0-40.0) % [place] % (Auto) 5.4 (0.0-10.0) % Eos % (Auto) 1.0 (0.0-4.0) % Baso % (Auto) 0.2 (0.0-2.0) % Neut # 17.6 H (1.8-7.0) K/uL Lymph # 0.5 L (1.0-4.3) K/uL [place] # 1.0 H (0.0-0.8) K/uL Eos # 0.2 (0.0-0.7) K/uL Baso # 0.0 (0.0-0.2) K/uL Neutrophils % (Manual) 76 H (50-75) % Band Neutrophils % 15 H* (0-2) % Lymphocytes % (Manual) 2 L (20-40) % Monocytes % (Manual) 7 (0-10) % Toxic Granulation Present Platelet Estimate Normal (NORMAL) Large Platelets Present Anisocytosis (manual) Moderate Sodium 131 L (132-148) mmol/L Potassium 4.4 (3.6-5.2) mmol/L Chloride 94 L (98-107) mmol/L Carbon Dioxide 10 L* D (22-30) mmol/L Anion Gap 31 H (10-20) BUN 31 H (7-17) mg/dL Creatinine 1.6 H (0.7-1.2) MG/DL Est GFR ( Amer) 38 Est GFR (Non-Af Amer) 32 POC Glucose (mg/dL) 301 H (65-110) mg/dL Random Glucose 251 H (65-105) mg/dL Calcium 8.8 (8.6-10.4) mg/dl Phosphorus 5.7 H (2.5-4.5) mg/dL Magnesium 2.0 (1.6-2.3) mg/dL Total Bilirubin 11.0 H (0.2-1.3) mg/dL AST 72 H (14-36) U/L ALT 28 (9-52) U/L Alkaline Phosphatase 295 H D (38-126) U/L Total Protein 6.6 (6.3-8.3) g/dL Albumin 2.4 L (3.5-5.0) g/dL Globulin 4.1 H (2.2-3.9) gm/dL Albumin/Globulin Ratio 0.6 L (1.0-2.1) Blood Type Antibody Screen 12/05/16 12/05/16 Range/Units 21:27 21:22 WBC (4.8-10.8) K/uL RBC (3.80-5.20) Mil/uL Hgb (11.0-16.0) g/dL Hct (34.0-47.0) % MCV (81.0-99.0) fL MCH (27.0-31.0) pg MCHC (33.0-37.0) g/dL RDW (11.5-14.5) % Plt Count (130-400) K/uL MPV (7.2-11.7) fL Neut % (Auto) (50.0-75.0) % Lymph % (Auto) (20.0-40.0) % [place] % (Auto) (0.0-10.0) % Eos % (Auto) (0.0-4.0) % Baso % (Auto) (0.0-2.0) % Neut # (1.8-7.0) K/uL Lymph # (1.0-4.3) K/uL [place] # (0.0-0.8) K/uL Eos # (0.0-0.7) K/uL Baso # (0.0-0.2) K/uL Neutrophils % (Manual) (50-75) % Band Neutrophils % (0-2) % Lymphocytes % (Manual) (20-40) % Monocytes % (Manual) (0-10) % Toxic Granulation Platelet Estimate (NORMAL) Large Platelets Anisocytosis (manual) Sodium (132-148) mmol/L Potassium (3.6-5.2) mmol/L Chloride (98-107) mmol/L Carbon Dioxide (22-30) mmol/L Anion Gap (10-20) BUN (7-17) mg/dL Creatinine (0.7-1.2) MG/DL Est GFR ( Amer) Est GFR (Non-Af Amer) POC Glucose (mg/dL) 172 H (65-110) mg/dL Random Glucose (65-105) mg/dL Calcium (8.6-10.4) mg/dl Phosphorus (2.5-4.5) mg/dL Magnesium (1.6-2.3) mg/dL Total Bilirubin (0.2-1.3) mg/dL AST (14-36) U/L ALT (9-52) U/L Alkaline Phosphatase (38-126) U/L Total Protein (6.3-8.3) g/dL Albumin (3.5-5.0) g/dL Globulin (2.2-3.9) gm/dL Albumin/Globulin Ratio (1.0-2.1) Blood Type B POSITIVE Antibody Screen Negative Laboratory Results - last 24 hr 12/05/16 12/05/16 12/06/16 21:22 21:27 06:31 WBC RBC Hgb Hct MCV MCH MCHC RDW Plt Count MPV Neut % (Auto) Lymph % (Auto) [place] % (Auto) Eos % (Auto) Baso % (Auto) Neut # Lymph # [place] # Eos # Baso # Neutrophils % (Manual) Band Neutrophils % Lymphocytes % (Manual) Monocytes % (Manual) Toxic Granulation Platelet Estimate Large Platelets Anisocytosis (manual) Sodium 131 L Potassium 4.4 Chloride 94 L Carbon Dioxide 10 L* D Anion Gap 31 H BUN 31 H Creatinine 1.6 H Est GFR ( Amer) 38 Est GFR (Non-Af Amer) 32 POC Glucose (mg/dL) 172 H Random Glucose 251 H Calcium 8.8 Phosphorus 5.7 H Magnesium 2.0 Total Bilirubin 11.0 H AST 72 H ALT 28 Alkaline Phosphatase 295 H D Total Protein 6.6 Albumin 2.4 L Globulin 4.1 H Albumin/Globulin Ratio 0.6 L Blood Type B POSITIVE Antibody Screen Negative 12/06/16 12/06/16 06:35 11:38 WBC 19.4 H RBC 2.46 L Hgb 8.3 L Hct 26.0 L MCV 105.5 H D MCH 33.8 H MCHC 32.0 L RDW 28.5 H Plt Count 191 MPV 12.1 H Neut % (Auto) 90.8 H Lymph % (Auto) 2.6 L [place] % (Auto) 5.4 Eos % (Auto) 1.0 Baso % (Auto) 0.2 Neut # 17.6 H Lymph # 0.5 L [place] # 1.0 H Eos # 0.2 Baso # 0.0 Neutrophils % (Manual) 76 H Band Neutrophils % 15 H* Lymphocytes % (Manual) 2 L Monocytes % (Manual) 7 Toxic Granulation Present Platelet Estimate Normal Large Platelets Present Anisocytosis (manual) Moderate Sodium Potassium Chloride Carbon Dioxide Anion Gap BUN Creatinine Est GFR ( Amer) Est GFR (Non-Af Amer) POC Glucose (mg/dL) 301 H Random Glucose Calcium Phosphorus Magnesium Total Bilirubin AST ALT Alkaline Phosphatase Total Protein Albumin Globulin Albumin/Globulin Ratio Blood Type Antibody Screen Fingerstick Blood Sugar Results: 284 Review of Systems - Review of Systems Systems not reviewed;Unavailable: Altered Mental Status Critical Care Progress Note - Vent Settings MODE:: PRVC TIDAL VOLUME:: 350 RESP RATE:: 14 FIO2:: 40 PEEP:: 5 - Nutrition Nutrition: Nutrition Category Date Time Status NPO Diet [DIET] Diets 11/17/16 Breakfast Active Assessment/Plan - Assessment and Plan (Free Text) Assessment: 76 female patient admitted for GI bleed; s/p flexible sigmoidoscopy and multiple transfusions. Patient was transferred from the medical floor to the ICU because patient was noted to have a hypotensive state, bradycardia and mucus secretions. Patient is now vented on trach. Patient's antibiotics were stopped. Patient is hypotensive and on IV fluids and pressors. Continue to monitor. Neuro: Comatose, in persistent vegetative state. Pulm: Chronic respiratory failure, trached on vent. - solumedrol 40 CV: Septic shock - hypotensive--> IV NS bolus + midodrine + albumin - On pressors - Cathflo- patient's central line occluded, pushed cathflo (12/06/16) Hem: Anemia of chronic disease and critical illness. - Anemia--> monitor H/H - Hgb 6.7: Transfused 1 unit PRBC 12/06/16 Renal: End-stage renal disease on hemodialysis. - Dialysis MWF Endo: Diabetes mellitus type 2, hypothyroidism and continue levothyroxine. GI: Nothing by mouth. tube feeds - Bacid ID: chronically ill, all antibiotics stopped - Bandemia: 15 Skin: - Sacral ulcer - Wound care Q12, ointment applied DVT proph - scd's, holding anticoagulation with recent GI bleed. GI proph - Protonix IV dolan for strict I/O's during acute illness Code status - DNR <Jonatan Scales S - Last Filed: 12/06/16 17:10> CCU Objective - Vital Signs / Intake & Output Vital Signs (Last 4 hours): Vital Signs Temp Pulse Resp BP Pulse Ox 12/06/16 16:45 92 H 16 72/50 L 100 12/06/16 16:19 101 H 21 64/24 L 100 12/06/16 16:05 103 H 23 74/21 L 99 12/06/16 15:45 97.9 F 101 H 21 69/15 L 12/06/16 15:29 97 H 30 H 78/11 L 12/06/16 15:27 98 H 30 H 78/11 L 100 12/06/16 15:15 97.8 F 98 H 30 H 12/06/16 15:00 97.9 F 99 H 27 H 75/12 L 12/06/16 14:45 98 F 96 H 30 H 72/15 L 12/06/16 14:43 98 F 98 H 29 H 64/21 L 12/06/16 14:13 101 H 74/19 L 100 12/06/16 13:49 89 25 H 69/18 L 100 12/06/16 13:21 90 24 75/14 L 100 Intake and Output (Last 8hrs): Intake & Output 12/06/16 12/06/16 12/06/16 06:59 14:59 22:59 Intake Total 995 1092.0 260 Balance 995 1092.0 260 Intake: IV 180 390 110 Intake, IV Amount 210 377.0 150 Right PICC 210 377.0 150 Tube Feeding 280 175 Blood Product 325 0 Red Blood Cells Cpd As1 0 Lr Unit [id number] Red Blood Cells Cpd As1 325 Lr Unit [id number] Other 150 Other: # Bowel Movements 1 - Medications Active Medications: Active Medications Generic Name Dose Route Start Last Admin Trade Name Freq PRN Reason Stop Dose Admin Acetaminophen 650 mg 11/23/16 00:09 12/01/16 23:17 Tylenol 650mg/20.3ml Solution Ud NG 650 mg Q6 PRN Administration temp above 101 Albuterol/Ipratropium 3 ml 12/05/16 02:00 12/06/16 13:25 Duoneb 3 Mg/0.5 Mg (3 Ml) Ud INH 3 ml RQ6 [facility] Administration Epoetin Sly 10,000 unit 11/21/16 18:30 12/06/16 09:47 Procrit IV 10,000 unit MWF [facility] Administration Norepinephrine Bitartrate 4 mg 250 mls @ 15 mls/hr 12/02/16 10:59 12/06/16 15 :27 / Dextrose IV 20 mcg/min .[id number] PRN 75 mls/hr TITRATE PER MD ORDER Administration Protocol 4 MCG/MIN Lactobacillus Acidophilus 1 cap 11/29/16 23:00 12/06/16 09:46 Bacid Acidophilus PO 1 cap BID [facility] Administration Levothyroxine Sodium 175 mcg 11/18/16 06:30 12/06/16 05:39 Synthroid PO 175 mcg DAILY@0630 [facility] Administration Methylprednisolone 40 mg 12/05/16 13:15 12/06/16 09:46 Solu-Medrol IV 40 mg DAILY [facility] Administration Midodrine 5 mg 12/05/16 14:00 12/06/16 14:53 Proamatine PO Not Given TID [facility] Pantoprazole Sodium 40 mg 11/05/16 11:15 12/06/16 09:43 Protonix Inj IVP 40 mg DAILY [facility] Administration - Patient Studies Lab Studies: Lab Studies 12/06/16 12/06/16 12/06/16 Range/Units 14:38 11:38 06:35 WBC 23.8 H 19.4 H (4.8-10.8) K/uL RBC 1.99 L 2.46 L (3.80-5.20) Mil/uL Hgb 6.7 L 8.3 L (11.0-16.0) g/dL Hct 21.3 L 26.0 L (34.0-47.0) % MCV 107.3 H 105.5 H D (81.0-99.0) fL MCH 33.6 H 33.8 H (27.0-31.0) pg MCHC 31.3 L 32.0 L (33.0-37.0) g/dL RDW 29.8 H 28.5 H (11.5-14.5) % Plt Count 191 191 (130-400) K/uL MPV 11.7 12.1 H (7.2-11.7) fL Neut % (Auto) 91.1 H 90.8 H (50.0-75.0) % Lymph % (Auto) 2.8 L 2.6 L (20.0-40.0) % [place] % (Auto) 5.0 5.4 (0.0-10.0) % Eos % (Auto) 0.8 1.0 (0.0-4.0) % Baso % (Auto) 0.3 0.2 (0.0-2.0) % Neut # 21.7 H 17.6 H (1.8-7.0) K/uL Lymph # 0.7 L 0.5 L (1.0-4.3) K/uL [place] # 1.2 H 1.0 H (0.0-0.8) K/uL Eos # 0.2 0.2 (0.0-0.7) K/uL Baso # 0.1 0.0 (0.0-0.2) K/uL Neutrophils % (Manual) 76 H 76 H (50-75) % Band Neutrophils % 18 H* 15 H* (0-2) % Lymphocytes % (Manual) 2 L 2 L (20-40) % Monocytes % (Manual) 4 7 (0-10) % Toxic Granulation Present Platelet Estimate Normal Normal (NORMAL) Large Platelets Present Hypochromasia (manual) Moderate Poikilocytosis (manual Slight Anisocytosis (manual) Slight Moderate Microcytosis (manual) Slight Macrocytosis (manual) Slight Ovalocytes Slight Melia Cells Slight Sodium (132-148) mmol/L Potassium (3.6-5.2) mmol/L Chloride (98-107) mmol/L Carbon Dioxide (22-30) mmol/L Anion Gap (10-20) BUN (7-17) mg/dL Creatinine (0.7-1.2) MG/DL Est GFR ( Amer) Est GFR (Non-Af Amer) POC Glucose (mg/dL) 301 H (65-110) mg/dL Random Glucose (65-105) mg/dL Calcium (8.6-10.4) mg/dl Phosphorus (2.5-4.5) mg/dL Magnesium (1.6-2.3) mg/dL Total Bilirubin (0.2-1.3) mg/dL AST (14-36) U/L ALT (9-52) U/L Alkaline Phosphatase (38-126) U/L Total Protein (6.3-8.3) g/dL Albumin (3.5-5.0) g/dL Globulin (2.2-3.9) gm/dL Albumin/Globulin Ratio (1.0-2.1) Blood Type Antibody Screen 12/06/16 12/05/16 12/05/16 Range/Units 06:31 21:27 21:22 WBC (4.8-10.8) K/uL RBC (3.80-5.20) Mil/uL Hgb (11.0-16.0) g/dL Hct (34.0-47.0) % MCV (81.0-99.0) fL MCH (27.0-31.0) pg MCHC (33.0-37.0) g/dL RDW (11.5-14.5) % Plt Count (130-400) K/uL MPV (7.2-11.7) fL Neut % (Auto) (50.0-75.0) % Lymph % (Auto) (20.0-40.0) % [place] % (Auto) (0.0-10.0) % Eos % (Auto) (0.0-4.0) % Baso % (Auto) (0.0-2.0) % Neut # (1.8-7.0) K/uL Lymph # (1.0-4.3) K/uL [place] # (0.0-0.8) K/uL Eos # (0.0-0.7) K/uL Baso # (0.0-0.2) K/uL Neutrophils % (Manual) (50-75) % Band Neutrophils % (0-2) % Lymphocytes % (Manual) (20-40) % Monocytes % (Manual) (0-10) % Toxic Granulation Platelet Estimate (NORMAL) Large Platelets Hypochromasia (manual) Poikilocytosis (manual Anisocytosis (manual) Microcytosis (manual) Macrocytosis (manual) Ovalocytes [place] Cells Sodium 131 L (132-148) mmol/L Potassium 4.4 (3.6-5.2) mmol/L Chloride 94 L (98-107) mmol/L Carbon Dioxide 10 L* D (22-30) mmol/L Anion Gap 31 H (10-20) BUN 31 H (7-17) mg/dL Creatinine 1.6 H (0.7-1.2) MG/DL Est GFR ( Amer) 38 Est GFR (Non-Af Amer) 32 POC Glucose (mg/dL) 172 H (65-110) mg/dL Random Glucose 251 H (65-105) mg/dL Calcium 8.8 (8.6-10.4) mg/dl Phosphorus 5.7 H (2.5-4.5) mg/dL Magnesium 2.0 (1.6-2.3) mg/dL Total Bilirubin 11.0 H (0.2-1.3) mg/dL AST 72 H (14-36) U/L ALT 28 (9-52) U/L Alkaline Phosphatase 295 H D (38-126) U/L Total Protein 6.6 (6.3-8.3) g/dL Albumin 2.4 L (3.5-5.0) g/dL Globulin 4.1 H (2.2-3.9) gm/dL Albumin/Globulin Ratio 0.6 L (1.0-2.1) Blood Type B POSITIVE Antibody Screen Negative Laboratory Results - last 24 hr 12/05/16 12/05/16 12/06/16 21:22 21:27 06:31 WBC RBC Hgb Hct MCV MCH MCHC RDW Plt Count MPV Neut % (Auto) Lymph % (Auto) [place] % (Auto) Eos % (Auto) Baso % (Auto) Neut # Lymph # [place] # Eos # Baso # Neutrophils % (Manual) Band Neutrophils % Lymphocytes % (Manual) Monocytes % (Manual) Toxic Granulation Platelet Estimate Large Platelets Hypochromasia (manual) Poikilocytosis (manual Anisocytosis (manual) Microcytosis (manual) Macrocytosis (manual) Ovalocytes [place] Cells Sodium 131 L Potassium 4.4 Chloride 94 L Carbon Dioxide 10 L* D Anion Gap 31 H BUN 31 H Creatinine 1.6 H Est GFR ( Amer) 38 Est GFR (Non-Af Amer) 32 POC Glucose (mg/dL) 172 H Random Glucose 251 H Calcium 8.8 Phosphorus 5.7 H Magnesium 2.0 Total Bilirubin 11.0 H AST 72 H ALT 28 Alkaline Phosphatase 295 H D Total Protein 6.6 Albumin 2.4 L Globulin 4.1 H Albumin/Globulin Ratio 0.6 L Blood Type B POSITIVE Antibody Screen Negative 12/06/16 12/06/16 12/06/16 06:35 11:38 14:38 WBC 19.4 H 23.8 H RBC 2.46 L 1.99 L Hgb 8.3 L 6.7 L Hct 26.0 L 21.3 L MCV 105.5 H D 107.3 H MCH 33.8 H 33.6 H MCHC 32.0 L 31.3 L RDW 28.5 H 29.8 H Plt Count 191 191 MPV 12.1 H 11.7 Neut % (Auto) 90.8 H 91.1 H Lymph % (Auto) 2.6 L 2.8 L [place] % (Auto) 5.4 5.0 Eos % (Auto) 1.0 0.8 Baso % (Auto) 0.2 0.3 Neut # 17.6 H 21.7 H Lymph # 0.5 L 0.7 L [place] # 1.0 H 1.2 H Eos # 0.2 0.2 Baso # 0.0 0.1 Neutrophils % (Manual) 76 H 76 H Band Neutrophils % 15 H* 18 H* Lymphocytes % (Manual) 2 L 2 L Monocytes % (Manual) 7 4 Toxic Granulation Present Platelet Estimate Normal Normal Large Platelets Present Hypochromasia (manual) Moderate Poikilocytosis (manual Slight Anisocytosis (manual) Moderate Slight Microcytosis (manual) Slight Macrocytosis (manual) Slight Ovalocytes Slight Melia Cells Slight Sodium Potassium Chloride Carbon Dioxide Anion Gap BUN Creatinine Est GFR ( Amer) Est GFR (Non-Af Amer) POC Glucose (mg/dL) 301 H Random Glucose Calcium Phosphorus Magnesium Total Bilirubin AST ALT Alkaline Phosphatase Total Protein Albumin Globulin Albumin/Globulin Ratio Blood Type Antibody Screen Critical Care Progress Note - Nutrition Nutrition: Nutrition Category Date Time Status NPO Diet [DIET] Diets 11/17/16 Breakfast Active Assessment/Plan (1) Respiratory failure Current Visit: Yes Status: Acute Comment: Continue ventilatory support and reduce FiO2 as tolerated Transfuse platelets Continue feeding Monitor platelet count and H&H Prognosis poor (2) Lower GI bleed Current Visit: Yes Status: Acute (3) ESRD (end stage renal disease) on dialysis Current Visit: No Status: Chronic Attending/Attestation - Attestation I have personally seen and examined this patient.: Yes I have fully participated in the care of the patient.: Yes I have reviewed all pertinent clinical information: Yes Notes (Text): 12/06/16 17:09 Patient seen and examined in the intensive care unit. Case discussed with staff in the morning rounds. On max dose of Levophed On ventilatory support with agonal breathing Rectal bleeding noted Transfuse blood and follow-up CBC Spoke with the daughter at length with poor prognosis Patient DNR
[2016-12-06 14:44] LABS: BASO # 0.1 K/uL (0.0-0.2); HEMATOCRIT 21.3 % (34.0-47.0); LYMPH # 0.7 K/uL (1.0-4.3); LYMPH % 2.8 % (20.0-40.0); NRBC % 0.1 % (0.0-2.0)
[2016-12-06 14:54] LABS: BASO % 0.3 % (0.0-2.0); EOS # 0.2 K/uL (0.0-0.7); EOS % 0.8 % (0.0-4.0); MEAN PLATELET VOLUME 11.7 fL (7.2-11.7); MONO # 1.2 K/uL (0.0-0.8); PLATELET COUNT 191 K/uL (130-400); RED CELL DISTRIBUTION WIDTH 29.8 % (11.5-14.5); WHITE BLOOD COUNT 23.8 K/uL (4.8-10.8)
[2016-12-06 14:57] LABS: MEAN CELL VOLUME 107.3 fL (81.0-99.0); MEAN CORPUSCULAR HEMOGLOBIN 33.6 pg (27.0-31.0); MEAN CORPUSCULAR HGB CONC 31.3 g/dL (33.0-37.0)
[2016-12-06 15:40] LABS: NEUTROPHIL 76 % (50-75); TOTAL CELLS COUNTED 100
[2016-12-06 16:53] VITALS: O2SAT 100
[2016-12-06] MEDS ORDERED: Dextrose 50% SYRINGE Inj (50 ml) IV PRN (20:40)
[2016-12-06] MEDS ORDERED: Norepinephrine 4 MG in Dextrose 5% In Water 246 ML IV PRN (20:41)
--- NOTE | 2016-12-06 20:44 | CP.PCM.PN ---
Subjective - Date & Time of Evaluation Date of Evaluation: 12/06/16 Time of Evaluation: 20:43 - Subjective Subjective: Patient's overall prognosis very poor. Agonal breathing noted. On ventilator, full support. Patient is not responding. Norepinephrine 20 g running. Hypotension noted. Overall prognosis is very poor I spoke to the patient's daughter in detail. Will try to taper down the Levophed to 10 mics. Transfuse 1 unit slowly blood transfusion. Monitor the glucose. Overall prognosis is poor. Patient daughter understands. Patient is DNR Objective - Vital Signs/Intake and Output Vital Signs (last 24 hours): Temp Pulse Resp BP Pulse Ox 97.9 F 75 26 H 80/26 L 100 12/06/16 17:54 12/06/16 19:25 12/06/16 19:25 12/06/16 19:25 12/06/16 19:25 Intake and Output: 12/06/16 12/07/16 18:59 06:59 Intake Total 2127.0 75 Balance 2127.0 75 - Medications Medications: Current Medications Acetaminophen (Tylenol 650mg/20.3ml Solution Ud) 650 mg NG Q6 PRN PRN Reason: temp above 101 Last Admin: 12/01/16 23:17 Dose: 650 mg Albuterol/Ipratropium (Duoneb 3 Mg/0.5 Mg (3 Ml) Ud) 3 ml INH RQ6 [facility] Last Admin: 12/06/16 19:38 Dose: 3 ml Dextrose (Dextrose 50% Inj) 50 ml IV Q4 PRN PRN Reason: Hypoglycemia Epoetin Sly (Procrit) 10,000 unit IV MWF [facility] Last Admin: 12/06/16 09:47 Dose: 10,000 unit Norepinephrine Bitartrate 4 mg (/ Dextrose) 250 mls @ 37.5 mls/hr IV .Q6H40M PRN; 10 MCG/MIN PRN Reason: TITRATE PER MD ORDER Lactobacillus Acidophilus (Bacid Acidophilus) 1 cap PO BID [facility] Last Admin: 12/06/16 18:55 Dose: 1 cap Levothyroxine Sodium (Synthroid) 175 mcg PO DAILY@0630 [facility] Last Admin: 12/06/16 05:39 Dose: 175 mcg Methylprednisolone (Solu-Medrol) 40 mg IV DAILY [facility] Last Admin: 12/06/16 09:46 Dose: 40 mg Midodrine (Proamatine) 5 mg PO TID [facility] Last Admin: 12/06/16 18:56 Dose: Not Given Pantoprazole Sodium (Protonix Inj) 40 mg IVP DAILY [facility] Last Admin: 12/06/16 09:43 Dose: 40 mg - Labs Labs: 12/06/16 14:38 12/06/16 06:31 PT 19.5 SECONDS (9.7-12.2) H 10/28/16 08:07 INR 1.7 10/28/16 08:07 APTT 49 SECONDS (21-34) H 10/25/16 16:33
[2016-12-06 21:27] LABS: MEAN CORPUSCULAR HEMOGLOBIN 31.2 pg (27.0-31.0); MEAN CORPUSCULAR HGB CONC 29.5 g/dL (33.0-37.0); MEAN PLATELET VOLUME 11.4 fL (7.2-11.7); RED CELL DISTRIBUTION WIDTH 19.3 % (11.5-14.5); WHITE BLOOD COUNT 27.9 K/uL (4.8-10.8)
[2016-12-06 22:42] VITALS: BP 60/18
[2016-12-06 23:54] VITALS: TEMP 98.2
[2016-12-06 23:55] VITALS: PULSE 52; RESP 10
[2016-12-07] MEDS: Albuterol-Ipratrop 3 mg / 0.5 (3 ml) UD INH SCH (01:38)
--- NOTE | 2016-12-07 04:16 | CP.PCM.PRO ---
Pronouncement of Note - Clinical Findings Physical Exam: No Response Verbal/Painful Stimuli, Absent Peripheral Pulses{ Carotid & Femoral}, Absent Heart & Breath Sounds, No Pupillary Light Reflex, No Corneal Reflex, Pupils Fixed & Dilated, Absence of Vital Signs - Pronouncement Time Time of Pronouncement of : 04:00 - Notifications Pronouncement Notifications: Family Notified, Atending Notified Fashion Illustrator Notified: No - Autopsy Autopsy Requested: No [place]: [id number] Additional Comments: The Patient was a DNR
--- NOTE | 2016-12-15 16:15 | CP.PCM.DIS ---
Provider - Provider Date of Admission: 10/25/16 16:27 Attending physician: Joe Bliss MD Time Spent in preparation of Discharge (in minutes): 45 Hospital Course - Lab Results Lab Results: Micro Results 12/01/16 04:00 Trachasp Gram Stain - Final 12/01/16 04:00 Trachasp Sputum Culture - Final Methicillin Resistant S Aureus 11/17/16 09:15 Blood-During Dialysis Blood Culture - Final NO GROWTH AFTER 5 DAYS 11/17/16 09:15 Blood-During Dialysis Gram Stain - Final TEST NOT PERFORMED 11/16/16 15:38 Naris MRSA Culture (Admit) - Final MRSA DETECTED 11/16/16 18:10 Trachasp Gram Stain - Final 11/16/16 18:10 Trachasp Sputum Culture - Final Methicillin Resistant S Aureus 11/03/16 09:00 Blood-Thru Central Line Blood Culture - Final NO GROWTH AFTER 5 DAYS 11/03/16 09:00 Blood-Thru Central Line Gram Stain - Final TEST NOT PERFORMED 11/03/16 08:45 Blood-Thru Central Line Blood Culture - Final NO GROWTH AFTER 5 DAYS 11/03/16 08:45 Blood-Thru Central Line Gram Stain - Final TEST NOT PERFORMED 11/03/16 Unknown Trachasp Gram Stain - Final 11/03/16 Unknown Trachasp Sputum Culture - Final Methicillin Resistant S Aureus 10/25/16 17:00 Blood-Venous Blood Culture - Final NO GROWTH AFTER 5 DAYS 10/25/16 17:00 Blood-Venous Gram Stain - Final TEST NOT PERFORMED 10/25/16 18:49 Naris MRSA Culture (Admit) - Final MRSA DETECTED Most Recent Lab Values WBC 27.9 K/uL (4.8-10.8) H 12/06/16 21:10 RBC 2.26 Mil/uL (3.80-5.20) L 12/06/16 21:10 Hgb 7.1 g/dL (11.0-16.0) L 12/06/16 21:10 Hct 24.0 % (34.0-47.0) L 12/06/16 21:10 MCV 106.0 fL (81.0-99.0) H 12/06/16 21:10 MCH 31.2 pg (27.0-31.0) H 12/06/16 21:10 MCHC 29.5 g/dL (33.0-37.0) L 12/06/16 21:10 RDW 19.3 % (11.5-14.5) H 12/06/16 21:10 Plt Count 159 K/uL (130-400) 12/06/16 21:10 MPV 11.4 fL (7.2-11.7) 12/06/16 21:10 Neut % (Auto) 91.1 % (50.0-75.0) H 12/06/16 14:38 Lymph % (Auto) 2.8 % (20.0-40.0) L 12/06/16 14:38 [place] % (Auto) 5.0 % (0.0-10.0) 12/06/16 14:38 Eos % (Auto) 0.8 % (0.0-4.0) 12/06/16 14:38 Baso % (Auto) 0.3 % (0.0-2.0) 12/06/16 14:38 Neut # 21.7 K/uL (1.8-7.0) H 12/06/16 14:38 Lymph # 0.7 K/uL (1.0-4.3) L 12/06/16 14:38 [place] # 1.2 K/uL (0.0-0.8) H 12/06/16 14:38 Eos # 0.2 K/uL (0.0-0.7) 12/06/16 14:38 Baso # 0.1 K/uL (0.0-0.2) 12/06/16 14:38 Neutrophils % (Manual) 76 % (50-75) H 12/06/16 14:38 Band Neutrophils % 18 % (0-2) H* 12/06/16 14:38 Lymphocytes % (Manual) 2 % (20-40) L 12/06/16 14:38 Reactive Lymphs % 1 % (0-0) H 11/30/16 09:48 Monocytes % (Manual) 4 % (0-10) 12/06/16 14:38 Eosinophils % (Manual) 1 % (0-4) 11/30/16 09:48 Basophils % (Manual) 1 % (0-2) 11/30/16 09:48 Metamyelocytes % 1 % (0-0) H 11/17/16 06:22 Myelocytes % 1 % (0-0) H 10/26/16 06:38 Nucleated RBC % 1 % (0-0) H 11/25/16 06:19 Differential Comment 11/22/16 05:59 Toxic Granulation Present 12/06/16 06:35 Platelet Estimate Normal (NORMAL) 12/06/16 14:38 Large Platelets Present 12/06/16 06:35 Giant Platelets Present 12/04/16 06:32 Polychromasia Slight 12/04/16 06:32 Hypochromasia (manual) Moderate 12/06/16 14:38 Poikilocytosis (manual Slight 12/06/16 14:38 Anisocytosis (manual) Slight 12/06/16 14:38 Microcytosis (manual) Slight 12/06/16 14:38 Macrocytosis (manual) Slight 12/06/16 14:38 Spherocytes Slight 11/26/16 06:19 Target Cells Slight 12/04/16 06:32 Tear Drop Cells Slight 12/03/16 06:23 Ovalocytes Slight 12/06/16 14:38 [place] Cells Slight 12/06/16 14:38 Schistocytes Slight 11/05/16 10:26 PT 19.5 SECONDS (9.7-12.2) H 10/28/16 08:07 INR 1.7 10/28/16 08:07 APTT 49 SECONDS (21-34) H 10/25/16 16:33 Fibrinogen 159 mg/dL (200-400) L 10/27/16 15:11 Fibrin Degrad Products Positive (NEGATIVE) H 10/27/16 15:11 Fibrin Degrad Prod, Qt >40 ug/mL (<10) H 10/27/16 15:11 Puncture Site Rr 11/27/16 05:31 pCO2 36 mm/Hg (35-45) 11/27/16 05:31 pO2 98 mm/Hg (80-100) 11/27/16 05:31 HCO3 25.7 mmol/L (21-28) 11/27/16 05:31 ABG pH 7.45 (7.35-7.45) 11/27/16 05:31 ABG Total CO2 26.1 mmol/L (22-28) 11/27/16 05:31 ABG O2 Saturation 100.5 % (95-98) H 11/27/16 05:31 ABG Base Excess 1.0 mmol/L (-2.0-3.0) 11/27/16 05:31 ABG Hemoglobin 8.2 g/dL (11.7-17.4) L 11/27/16 05:31 ABG Carboxyhemoglobin 2.6 % (0.5-1.5) H 11/27/16 05:31 POC ABG HHb (Measured) -0.5 % (0.0-5.0) L 11/27/16 05:31 ABG Methemoglobin 1.3 % (0.0-3.0) 11/27/16 05:31 [place] Test Pos 11/27/16 05:31 ABG Potassium 3.8 mmol/L (3.6-5.2) 11/16/16 16:05 A-a O2 Difference 285.0 mm/Hg 11/27/16 05:31 Respiratory Index 2.9 11/27/16 05:31 Hgb O2 Saturation 96.5 % (95.0-98.0) 11/27/16 05:31 Sodium 130.0 mmol/l (132-148) L 11/16/16 16:05 Chloride 99.0 mmol/L (98-107) 11/16/16 16:05 Glucose 75 mg/dl (65-105) 11/16/16 16:05 Lactate 2.9 mmol/L (0.7-2.1) H 11/16/16 16:05 Vent Mode Prvc 11/27/16 05:31 Mechanical Rate 14 11/27/16 05:31 FiO2 60.0 % 11/27/16 05:31 Tidal Volume 350 11/27/16 05:31 PEEP 5 11/27/16 05:31 Sodium 131 mmol/L (132-148) L 12/06/16 06:31 Potassium 4.4 mmol/L (3.6-5.2) 12/06/16 06:31 Chloride 94 mmol/L (98-107) L 12/06/16 06:31 Carbon Dioxide 10 mmol/L (22-30) L* D 12/06/16 06:31 Anion Gap 31 (10-20) H 12/06/16 06:31 BUN 31 mg/dL (7-17) H 12/06/16 06:31 Creatinine 1.6 MG/DL (0.7-1.2) H 12/06/16 06:31 Est GFR ( Amer) 38 12/06/16 06:31 Est GFR (Non-Af Amer) 32 12/06/16 06:31 POC Glucose (mg/dL) 243 mg/dL (65-110) H 12/06/16 21:17 Random Glucose 251 mg/dL (65-105) H 12/06/16 06:31 Lactic Acid 3.5 mmol/L (0.7-2.1) H 11/03/16 13:55 Calcium 8.8 mg/dl (8.6-10.4) 12/06/16 06:31 Phosphorus 5.7 mg/dL (2.5-4.5) H 12/06/16 06:31 Magnesium 2.0 mg/dL (1.6-2.3) 12/06/16 06:31 Iron 70 ug/dL (37-170) 10/26/16 15:32 TIBC 111 ug/dL (250-450) L 10/26/16 15:32 % Saturation 25 (20-55) 11/03/16 13:55 Ferritin 4270.0 ng/mL 11/03/16 13:55 Total Bilirubin 11.0 mg/dL (0.2-1.3) H 12/06/16 06:31 Direct Bilirubin 7.3 mg/dL (0.0-0.4) H 10/25/16 21:10 AST 72 U/L (14-36) H 12/06/16 06:31 ALT 28 U/L (9-52) 12/06/16 06:31 Alkaline Phosphatase 295 U/L (38-126) H D 12/06/16 06:31 Lactate Dehydrogenase 276 U/L (313-618) L 10/27/16 14:55 Troponin I < 0.0120 ng/mL (0.00-0.120) 10/25/16 16:33 Total Protein 6.6 g/dL (6.3-8.3) 12/06/16 06:31 Albumin 2.4 g/dL (3.5-5.0) L 12/06/16 06:31 Globulin 4.1 gm/dL (2.2-3.9) H 12/06/16 06:31 Albumin/Globulin Ratio 0.6 (1.0-2.1) L 12/06/16 06:31 Arterial Blood Potassium 3.8 mmol/L (3.6-5.2) 11/16/16 16:05 Stool Occult Blood Positive (NEGATIVE) H 10/25/16 16:33 IgG 2702.0 mg/dL (700.0-1600.0) H 10/26/16 15:32 IgA 562.3 mg/dL (70.0-400.0) H 10/26/16 15:32 IgM 126.1 mg/dL (40.0-230.0) 10/26/16 15:32 CHANA 6 Profile Negative (NEGATIVE) 10/26/16 15:32 Anti-Mitochondrial Ab Negative (Negative) 10/26/16 15:32 Smooth Muscle Ab Titer 1:40 Titer (< 1:20) H 10/26/16 15:32 Anti-Smooth Muscle Ab Positive (Negative) H 10/26/16 15:32 Liver/Kid Microsomes Ab <=20.0 U (<=20.0) 10/26/16 15:32 C. difficile Ag & Toxin Negative (NEGATIVE) 10/28/16 15:00 Hepatitis A IgM Ab Negative (NEGATIVE) 10/26/16 15:32 Hep Bs Antigen Negative (NEGATIVE) 10/26/16 15:32 Hep B Core IgM Ab Negative (NEGATIVE) 10/26/16 15:32 Hepatitis C Antibody Negative (NEGATIVE) 10/26/16 15:32 Blood Type B POSITIVE 12/05/16 21:27 Antibody Screen Negative 12/05/16 21:27 Crossmatch See Detail 10/25/16 17:00 - Hospital Course Hospital Course: Patient has a history of CAD, stent in the past, hypertension, end-stage renal disease on dialysis, recurrent pleural effusion, hypothyroidism, diabetes. Recurrent right-sided pleural effusion. Recurrent thoracentesis. Surgical history: Coronary artery bypass grafting, stent in the past, hysterectomy, stent in the urethral area Patient also has a history of congestive heart failure Multiple hospitalization. Allergy sulfa mites Patient is a lifelong nonsmoker nonalcoholic Review of system: Patient is having minimal distress. On tracheostomy, ventilator. Opening her eyes Spontaneously. Responding. On examination: Currently on norepinephrine drip low-dose. Vital signs reviewed Mild tachycardia, mild hypertension Chest decreased air entry on the right lung. Regular heart sound. Abdominal distention bilaterally noted Edema bilaterally noted, redness in the legs noted Sacral decubiti stage II. Left leg. Ulcer PICC line on the right upper extremity, left arm AV shunt Labs reviewed Chest x-ray showing evidence of right pleural effusion. In the emergency room patient received a protamine, also DDAVP to reduce the bleeding. Currently the bleeding is much controlled. Assessment/condition: 74-year-old female with history of CAD, stent, coronary it to bypass grafting, Hypertension, end-stage renal disease on dialysis diabetes hypothyroidism recurrent pleural effusion. Metabolic encephalopathy. We'll continue to monitor the glucose. Now admitted with acute GI bleed. Rectal bleeding. Recurring blood transfusion. We will monitor the H&H. GI evaluation. Nephrology evaluation. Cardiology evaluation. Patient is currently on ventilator. U the ventilator. I spoke to the patient's family in detail. Patient may need a colonoscopy evaluation. Will follow the patient. Discharge Exam - Head Exam Head Exam: NORMAL INSPECTION Discharge Plan - Follow Up Plan Condition: CRITICAL Disposition: WITH WITHOUT AUTOPSY
== END 2016-12-07 04:00 | DRG 393 ==
LOC: C.ER 15:33 → C.9E 16:27 → C.9I 17:42 → C.3T 11-15 14:38 → C.9I 11-16 15:32
PROVIDERS: ADMIT Internal Medicine; ATTEND Internal Medicine
PROC: 30233N1 Transfusion of Nonautologous Red Blood Cells into Peripheral Vein, Percutaneous Approach (ICD-10-PCS; 2016-10-25)
PROC: 5A1D60Z (ICD-10-PCS; 2016-10-26)
PROC: 0W3P8ZZ Control Bleeding in Gastrointestinal Tract, Via Natural or Artificial Opening Endoscopic (ICD-10-PCS; principal; 2016-10-28 11:10)
PROC: 0BH17EZ Insertion of Endotracheal Airway into Trachea, Via Natural or Artificial Opening (ICD-10-PCS; 2016-11-16)
PROC: 5A1955Z Respiratory Ventilation, Greater than 96 Consecutive Hours (ICD-10-PCS; 2016-11-16)
PROC: 0DH67UZ Insertion of Feeding Device into Stomach, Via Natural or Artificial Opening (ICD-10-PCS; 2016-11-18)
PROC: 3E0G76Z Introduction of Nutritional Substance into Upper GI, Via Natural or Artificial Opening (ICD-10-PCS; 2016-11-18)
DX: K55.8 Other vascular disorders of intestine (principal); A41.9 Sepsis, unspecified organism; E03.5 Myxedema coma; R65.21 Severe sepsis with septic shock; E43 Unspecified severe protein-calorie malnutrition; J86.9 Pyothorax without fistula; G93.41 Metabolic encephalopathy; N18.6 End stage renal disease; I62.9 Nontraumatic intracranial hemorrhage, unspecified; J96.11 Chronic respiratory failure with hypoxia; E11.52 Type 2 diabetes mellitus with diabetic peripheral angiopathy with gangrene; D62 Acute posthemorrhagic anemia; I13.2 Hypertensive heart and chronic kidney disease with heart failure and with stage 5 chronic kidney disease, or end stage renal disease; I50.22 Chronic systolic (congestive) heart failure; I97.88 Other intraoperative complications of the circulatory system, not elsewhere classified; K63.3 Ulcer of intestine; L97.429 Non-pressure chronic ulcer of left heel and midfoot with unspecified severity; R18.8 Other ascites; R40.3 Persistent vegetative state; R64 Cachexia; Z99.11 Dependence on respirator [ventilator] status; K55.9 Vascular disorder of intestine, unspecified; L89.159 Pressure ulcer of sacral region, unspecified stage; D69.6 Thrombocytopenia, unspecified; E11.21 Type 2 diabetes mellitus with diabetic nephropathy; E11.22 Type 2 diabetes mellitus with diabetic chronic kidney disease; E11.621 Type 2 diabetes mellitus with foot ulcer; D63.8 Anemia in other chronic diseases classified elsewhere; B95.8 Unspecified staphylococcus as the cause of diseases classified elsewhere; E78.00 Pure hypercholesterolemia, unspecified; E78.5 Hyperlipidemia, unspecified; H91.90 Unspecified hearing loss, unspecified ear; L89.152 Pressure ulcer of sacral region, stage 2; I48.91 Unspecified atrial fibrillation; I25.10 Atherosclerotic heart disease of native coronary artery without angina pectoris; I95.89 Other hypotension; K74.60 Unspecified cirrhosis of liver; K75.9 Inflammatory liver disease, unspecified; K76.1 Chronic passive congestion of liver; Z51.5 Encounter for palliative care; Z66 Do not resuscitate; Z74.01 Bed confinement status; Z79.4 Long term (current) use of insulin; Z82.49 Family history of ischemic heart disease and other diseases of the circulatory system; Z93.0 Tracheostomy status; Z87.440 Personal history of urinary (tract) infections; Z95.1 Presence of aortocoronary bypass graft; Z93.1 Gastrostomy status; Z95.5 Presence of coronary angioplasty implant and graft; Z99.2 Dependence on renal dialysis